=== PATIENT | male | born 1950 | race Caucasian/White ===

== ENCOUNTER 2023-07-26 04:17 | Emergency (ER) | payer MEDICARE, SELFPAY ==
[2023-07-26] VITALS (10 sets, daily range): BP systolic 163–180; BP diastolic 79–101; PULSE 101–103; RESP 16–18; TEMP 36.8–38.4; O2SAT 93–97; BMI 25.1
--- NOTE | 2023-07-26 04:32 | XR_ITS ---
The [address] [address] Patient Name: SOFI NELSON MRN: [id number] date: 1950 Sex: M Assigned Patient Location: ER Current Patient Location: ER Accession/Order Number: [id number] Exam Date: 07/26/2023 05:10 Report Date: 07/26/2023 05:35 At the request of: GHISLAINE LERNER Procedure: XR chest 1V EXAM: XR chest 1V HISTORY: URI symptoms COMPARISON: None. TECHNIQUE: One view of the chest was obtained. FINDINGS: Postsurgical changes are noted at the cervicothoracic junction. The cardiac silhouette is normal in size. The lungs are clear. There is no significant pneumothorax or pleural effusion. No acute osseous abnormality is seen. XR/XR chest 1V IMPRESSION: 1. No acute cardiopulmonary abnormality. Electronically authenticated by: Jose A FAM Date: 07/26/2023 05:35
[2023-07-26 05:00] LABS: Internal Control Within Normal Limits; Strep A Antigen Screen Negative
[2023-07-26 05:07] LABS: Adenovirus NOT DETECTED (NOT DETECTE); Bordetella parapertussis NOT DETECTED (NOT DETECTE); Coronavirus 229E NOT DETECTED (NOT DETECTE); Coronavirus HKU1 NOT DETECTED (NOT DETECTE); Coronavirus NL63 NOT DETECTED (NOT DETECTE); Coronavirus OC43 NOT DETECTED (NOT DETECTE); Human Metapneumovirus NOT DETECTED (NOT DETECTE); Human Rhinovirus/Enterovirus NOT DETECTED (NOT DETECTE); Influenza A NOT DETECTED (NOT DETECTE); Influenza B NOT DETECTED (NOT DETECTE); Mycoplasma pneumoniae NOT DETECTED (NOT DETECTE); Parainfluenza Virus 1 NOT DETECTED (NOT DETECTE); Parainfluenza Virus 2 NOT DETECTED (NOT DETECTE); Parainfluenza Virus 3 NOT DETECTED (NOT DETECTE); Parainfluenza Virus 4 NOT DETECTED (NOT DETECTE); Respiratory Syncytial Virus NOT DETECTED (NOT DETECTE)
[2023-07-26] MEDS: ACETAMINOPHEN 500 MG TABLET 1000 MG PO (05:32)
[2023-07-26] MEDS: 0.9 % SODIUM CHLORIDE 1,000 ML 1000 ML IV (05:32)
--- NOTE | 2023-07-26 05:33 | ED.URI1 ---
HPI - URI/Sore Throat General Chief Complaint: Upper Respiratory Infection Stated Complaint: SORE THROAT Time Seen by Provider: 07/26/23 05:28 Source: patient History of Present Illness HPI Narrative: complains of headache, sore throat. Hurts to swallow.Has a cough. Non smoker. No fever until he arrived to the hospital. Not short of breath. No abdominal pain MD elicited complaint: Reports fever, cough and sore throat Related Data Home Medications Medication Instructions Recorded Confirmed losartan 25 mg tablet mg 07/26/23 tamsulosin 0.4 mg capsule mg PO 07/26/23 Allergies Allergy/AdvReac Type Severity Reaction Status Date / Time No Known Drug Allergies Allergy Verified 07/26/23 04:27 Review of Systems ROS Status of ROS 10 or more systems reviewed and unremarkable except as noted in history and below [facility] Social History Smoking status: Never smoker Exam Constitutional Vital Signs, click to edit/add: Last Vital Signs Temp 98.7 F 07/26/23 06:37 Pulse 101 H 07/26/23 06:37 Resp 18 07/26/23 06:37 BP 176/94 H 07/26/23 06:37 Pulse Ox 93 L 07/26/23 06:37 O2 Del Method Room Air 07/26/23 06:21 O2 Flow Rate 2 07/26/23 06:37 Common normals: average body habitus, oriented x3 and alert HENMT Other: oral pharynx is red. No exudate Chest Common normals: inspection of chest normal Respiratory Common normals: normal respiratory effort, no retractions, no use of accessory muscles and clear to auscultation bilaterally Cardio Common normals: regular rate, regular rhythm, S1 normal heart sound and S2 normal heart sound GI Common normals: Normal to inspection, nondistended, normoactive bowel sounds present, soft to palpation and non-tender Extremity Common normals: normal to inspection Neuro Common normals: oriented x3, CN's II-XII intact bilaterally, moves all extremities and no focal motor deficits Psych Appearance: grossly normal Course Vital Signs Vital signs: Vital Signs Temperature 98.2 F 07/26/23 04:20 Pulse Rate 103 H 07/26/23 04:20 Respiratory Rate 16 07/26/23 04:20 Blood Pressure 180/95 H 07/26/23 04:20 Pulse Oximetry 96 07/26/23 04:20 Oxygen Delivery Method Room Air 07/26/23 04:20 Temperature 98.7 F 07/26/23 06:37 Pulse Rate 101 H 07/26/23 06:37 Respiratory Rate 18 07/26/23 06:37 Blood Pressure 176/94 H 07/26/23 06:37 Pulse Oximetry 93 L 07/26/23 06:37 Oxygen Delivery Method Room Air 07/26/23 06:21 Oxygen Delivery Flow Rate 2 07/26/23 06:37 MDM - URI/Sore Throat MDM Narrative Medical decision making narrative: patient presents with URI symptoms. Has a sore throat and hurts to swallow even water. Has a productive cough and frontal headache. BP elevated but states he has white coat syndrome. Patient treated with hydralazine and his BP has improved. Cough productive of thick white phlegm pulse ox decreased to 89% on RA. Patient is nonsmoker. cxray is amara. nasal swab pending. strep screen negative. Solumedrol and CTs ordered. care transferred to Dr Hernandez at change of shift Lab Data Labs: Lab Results 07/26/23 07/26/23 Range/Units 04:30 05:25 WBC 9.8 (4.0-11.0) 10^3/uL RBC 4.67 L (4.70-6.10) 10^6/uL Hgb 11.8 L (14.0-18.0) g/dL Hct 37.6 L (42.0-54.0) % MCV 80.5 (80.0-94.0) fL MCH 25.3 L (25.9-34.0) pg MCHC 31.4 (29.9-35.2) g/dL RDW 18.5 H (11.0-15.0) % Plt Count 157 (150-450) 10^3/uL MPV 11.5 (9.5-13.5) fL Sodium 138 (136-145) mmol/L Potassium 3.9 (3.5-5.1) mmol/L Chloride 101 (98-107) mmol/L Carbon Dioxide 29.1 (21.0-32.0) mmol/L Anion Gap 11.8 BUN 11.0 (7.0-18.0) mg/dL Creatinine 1.08 (0.70-1.30) mg/dL Est GFR ( Amer) >60 (>=60) Est GFR (Non-Af Amer) >60 (>=60) BUN/Creatinine Ratio 10.2 Glucose 105 (74-106) mg/dL Calcium 8.4 L (8.5-10.1) mg/dL Total Bilirubin 0.3 (0.2-1.0) mg/dL AST 25 (15-37) U/L ALT 21 (16-63) U/L Alkaline Phosphatase 65 (46-116) U/L Total Protein 8.0 (6.4-8.2) g/dL Albumin 4.0 (3.4-5.0) g/dL Globulin 4.0 g/dL Albumin/Globulin Ratio 1.0 Streptococcus Screen Negative Imaging Data Chest x-ray: Radiologist's impression: Ordering Physician: Jayjay Rosales Date of Service: 07/26/23 Procedure(s): XR chest 1V Accession Number(s): [id number] cc: Patricia Fontanez M.D.; Jayjay Rosales~ The [place] [address] Patient Name: SOFI NELSON MRN: [id number] date: 1950 Sex: M Assigned Patient Location: ER Current Patient Location: ER Accession/Order Number: [id number] Exam Date: 07/26/2023 05:10 Report Date: 07/26/2023 05:35 At the request of: JAYJAY ROSALES Procedure: XR chest 1V EXAM: XR chest 1V HISTORY: URI symptoms COMPARISON: None. TECHNIQUE: One view of the chest was obtained. FINDINGS: Postsurgical changes are noted at the cervicothoracic junction. The cardiac silhouette is normal in size. The lungs are clear. There is no significant pneumothorax or pleural effusion. No acute osseous abnormality is seen. XR/XR chest 1V IMPRESSION: 1. No acute cardiopulmonary abnormality. Electronically authenticated by: Jose A FAM Date: 07/26/2023 05:35 Discharge Plan Discharge Patient Disposition: Still a Patient
[2023-07-26] MEDS: METHYLPREDNISOLONE SOD SUCC PF 125 MG/2 ML VIAL IVP (05:57)
[2023-07-26] MEDS: HYDRALAZINE HCL 20 MG/ML VIAL 5 MG IVP (05:58)
[2023-07-26] MEDS: CEFTRIAXONE 1,000 MG in 0.9 % SODIUM CHLORIDE 50 ML 100 MG IV (05:58)
[2023-07-26 06:04] LABS: Alanine Aminotransferase 21 U/L (16-63); Alkaline Phosphatase 65 U/L (46-116); Anion Gap 11.8; Aspartate Amino Transferase 25 U/L (15-37); BUN Creatinine Ratio 10.2; Bilirubin Total 0.3 mg/dL (0.2-1.0); Calcium 8.4 mg/dL (8.5-10.1); Carbon Dioxide 29.1 mmol/L (21.0-32.0); Chloride 101 mmol/L (98-107); Estimated GFR (African America >60 (>=60); Estimated GFR (Non-African Ame >60 (>=60); Glucose 105 mg/dL (74-106); Potassium 3.9 mmol/L (3.5-5.1); Sodium 138 mmol/L (136-145)
--- NOTE | 2023-07-26 06:09 | CT_ITS ---
The [address] [address] Patient Name: SOFI NELSON MRN: [id number] date: 1950 Sex: M Assigned Patient Location: ED.MAIN Current Patient Location: ER Accession/Order Number: [id number] Exam Date: 07/26/2023 07:20 Report Date: 07/26/2023 08:07 At the request of: GHISLAINE LERNER Procedure: CT angio chest EXAMINATION: CT angio chest, 07/26/2023 7:20 AM EDT HISTORY: hypoxemia cough. COMPARISON: None. TECHNIQUE: CT angiography of the chest was performed with water soluble IV contrast. MIP (maximum intensity projection) images or 3D post processing was performed. CT dose reduction technique was used, including Automated Exposure Control. FINDINGS: The heart is normal in size. The thoracic aorta is normal in caliber. The pulmonary arteries are well opacified without evidence of filling defects. There is slight bibasilar atelectasis. There is a punctate calcified granuloma in the posterior aspect of the right lung base. No pneumothorax or pleural effusion is seen. The mediastinum and jacque appear unremarkable. The osseous structures appear intact. The visualized portions of the upper abdomen appear unremarkable. CT/CT angio chest IMPRESSION: No evidence of pulmonary emboli. There is slight bibasilar atelectasis. No foci of infiltrate or consolidation are seen. Electronically authenticated by: SHEYLA LABOY Date: 07/26/2023 08:07
--- NOTE | 2023-07-26 06:10 | CT_ITS ---
The [address] [address] Patient Name: SOFI NELSON MRN: [id number] date: 1950 Sex: M Assigned Patient Location: ED.MAIN Current Patient Location: Accession/Order Number: [id number] Exam Date: 07/26/2023 07:20 Report Date: 07/26/2023 08:16 At the request of: GHISLAINE LERNER Procedure: CT soft tissue neck wo con EXAMINATION: CT soft tissue neck wo con HISTORY: pharynx pain/hard to swallow ? abscess COMPARISON: No relevant comparison available. TECHNIQUE: Axial, Coronal, and Sagittal CT images created without IV contrast. Dose reduction techniques were achieved by using automated exposure control and/or adjustment of mA and/or kV according to patient size and/or use of iterative reconstruction technique. FINDINGS: NASOPHARYNX: No asymmetry of the fossae of Rosenmuller and torus tubarius. ORAL CAVITY: No visible mass. OROPHARYNX: No asymmetry of the facial and lingual tonsils. HYPOPHARYNX: No mass or other visible lesion. LARYNX: No mass or asymmetry of the vocal cords. SINUSES: No significant fluid or mucosal thickening. NECK GLADS: No visible abnormality of the parotid, submandibular, and thyroid glands. LYMPH NODES: Mild adenopathy within the anterior cervical chains, right greater than left. VASCULATURE: No suspicious abnormality. BONES: Multilevel marked degenerative facet arthropathy. OTHER: No additional imaging findings. CT/CT soft tissue neck wo con IMPRESSION: 1. Limited examination due to lack of IV contrast and metallic streak artifact from dental fillings. 2. Mild lymphadenopathy, likely reactive. 3. No appreciable abscess or phlegmonous changes. Electronically authenticated by: DESI CEJA Date: 07/26/2023 08:16
[2023-07-26 06:11] LABS: Hematocrit 37.6 % (42.0-54.0); Hemoglobin 11.8 g/dL (14.0-18.0); Mean Corpuscular HGB Conc 31.4 g/dL (29.9-35.2); Mean Corpuscular Hemoglobin 25.3 pg (25.9-34.0); Mean Corpuscular Volume 80.5 fL (80.0-94.0); Red Blood Count 4.67 10^6/uL (4.70-6.10); White Blood Count 9.8 10^3/uL (4.0-11.0)
[2023-07-26 06:12] LABS: Mean Platelet Volume 11.5 fL (9.5-13.5); Platelet Count 157 10^3/uL (150-450); Red Cell Distribution Width 18.5 % (11.0-15.0)
[2023-07-26] MEDS: ALBUTEROL SULFATE 2.5 MG/3 ML VIAL NEB IH (06:41)
[2023-07-26 07:29] LABS: SARS-CoV-2 DETECTED (NOT DETECTE)
--- NOTE | 2023-07-26 08:27 | PC.NURSE ---
pt received from night custodian RN on 2L of O2 per NC
== END 2023-07-26 09:27 | disposition home or self-care (01) ==
PROVIDERS: Internal Medicine; Emergency Provider Emergency Medicine; PCP Family Medicine
DX: U07.1 COVID-19 (principal); J02.9 Acute pharyngitis, unspecified; Z79.899 Other long term (current) drug therapy
CPT/HCPCS: 0202U; 36415; 70490; 71045; 71275; 80053; 85027; 87070; 87880; 94640; 96365; 96366; 96375; 99285; J2930; Q9967

== ENCOUNTER 2023-08-16 08:01 | Outpatient (OUT) | payer MEDICARE, SELFPAY ==
[2023-08-17 04:09] LABS: PSA, Free 1.43 ng/mL; Prostate Specific Ag 9.3 ng/mL (0.0-4.0)
== END 2023-08-16 08:02 | disposition home or self-care (01) ==
LOC: LAB 08:03
PROVIDERS: PCP Family Medicine; Visit Provider Urology
DX: R97.20 Elevated prostate specific antigen [PSA] (principal)
CPT/HCPCS: 36415; 84153; 84154

== ENCOUNTER 2024-03-12 08:07 | Outpatient (OUT) | payer MEDICARE, SELFPAY ==
--- OUTSIDE RECORDS SUMMARY | 2024-03-12 08:22 | XMS_ITS | CCD ---
Author Organization [facility] Care Team Providers Care Director Of Accreditation Name Role Phone SCHROEDER, FELICIANO Unavailable Unavailable RICE, CLEVELAND W Unavailable Unavailable RICE, CLEVELAND W Unavailable Unavailable SCHROEDER, FELICIANO Unavailable Unavailable SCHROEDER, FELICIANO Unavailable Unavailable SCHROEDER, FELICIANO Unavailable Unavailable SCHROEDER, FELICIANO Unavailable Unavailable SCHROEDER, FELICIANO Unavailable Unavailable ALEXA GARCIA Unavailable Unavailable SCHROEDER, FELICIANO Unavailable Unavailable ABIGAIL SANCHEZ Primary Care Physician DENISHA GARCIA Attending Unavailable DENISHA GARCIA Referring Unavailable Abigail Sanchez Unavailable DANIEL, DR ABIGAIL Trejo Admitting Unavailable SANCHEZ, DR ABIGAIL Trejo Attending Unavailable SANCHEZ, DR ABIGAIL Trejo Primary Care Unavailable SANCHEZ, DR ABIGAIL Trejo Consulting Unavailable GARCIA, DR DENNY Admitting Unavailable GARCIA, DR DENNY Attending Unavailable SANCHEZ, DR ABIGAIL Trejo Primary Care Unavailable CENTERVILLE, DR OLIVER Maguire Consulting Unavailable GARCIA, DR DENNY Consulting Unavailable COOK, DR ROCK Pollock Admitting Unavailable COOK, DR ROCK Pollock Attending Unavailable SANCHEZ, DR ABIGAIL Trejo Primary Care Unavailable COOK, DR ROCK Pollock Consulting Unavailable NILL ., DR BARROSO Admitting Unavailable NILL ., DR BARROSO Attending Unavailable SANCHEZ, DR ABIGAIL Trejo Primary Care Unavailable NILL ., DR BARROSO Consulting Unavailable RODRIGUEZ RENÉ Consulting Unavailable NILL ., DR BARROSO Admitting Unavailable NILL ., DR BARROSO Attending Unavailable SANCHEZ, DR ABIGAIL Trejo Primary Care Unavailable NILL ., DR BARROSO Consulting Unavailable REMBERTO, XI [place] Consulting Unava ilable GEMBUSLUCITA Consulting Unavailable COOK, DR ROCK Pollock Admitting Unavailable COOK, DR ROCK Pollock Attending Unavailable SANCHEZ, DR ABIGAIL Trejo Primary Care Unavailable COOK, DR ROCK Pollock Consulting Unavailable Rock LUJAN Attending Unavailable OrzechLaura Attending Unavailable COOK, Rock Pollock Attending Unavailable NILLDharmesh Attending Unavailable Medications Current Medications Medication Drug Class(es) Dates Sig (Normalized) Sig (Original) amoxicillin 875 mg / clavulanate 125 mg oral tablet (2 sources) Penicillin-class Antibacterial Start: 08-07-2023 take 1 tablet by mouth every twelve hours Amoxicillin-Pot Clavulanate 875-125 MG 1 tablet Orally every 12 hrs for 10 day(s) Aug, Active Daily Multiple for Men 50+ oral tablet (3 sources) Start: 06-15-2020 take 1 tablet by mouth once daily Daily Multiple for Men 50+ oral tablet Oral, Daily, Refill(s) 0 Start Date: 06/15/20 Status: Ordered doxycycline hyclate 100 mg oral tablet (1 source) Tetracycline-class Drug Start: 02-15-2023 take 1 tablet by mouth twice daily doxycycline hyclate 100 mg Tab 100 mg = 1 tab(s), Oral, BID, # 14 tab(s), Refills(s) 0, Pharmacy: [id number], 177, cm, 02/15/23 11:48:00 EDT, Height/Length Dosing, 78.9, kg, 02/15/23 11:48:00 EDT, Weight Dosing Start Date: 02/15/23 Status: Ordered Psyllium (1 source) Start: 02-15-2023 Metamucil Oral, BID Start Date: 02/15/23 Status: Ordered See instructions (1 source) Start: 09-09-2017 See instructions See instructions, CBC with differential on 09/18/2017 and follow up with PCP/Urologist. Diagnosis Right ureteric stone/UTI, Print Requisition, Supply Start Date: 09/09/17 Status: Ordered tamsulosin hydrochloride 0.4 mg oral capsule (6 sources) alpha-Adrenergic Gordon Start: 01-12-2023 take 1 capsule by mouth twice daily tamsulosin 0.4 mg Cap 0.4 mg = 1 cap(s), Oral, BID, # 180 cap(s), Refills(s) 3, Pharmacy: [id number], 177, cm, 07/26/22 13:27:00 EDT, Height/Length Dosing, 87.5, kg, 07/26/22 13:27:00 EDT, Weight Dosing Start Date: 01/12/23 Status: Ordered Start: 01-05-2022 take 1 capsule by [facility] twice daily tamsulosin 0.4 mg Cap 0.4 mg = 1 cap(s), Oral, BID, # 180 cap(s), Refills(s) 3, Pharmacy: [id number], 177, cm, 10/25/21 11:30:00 EST, Height/Length Dosing, 78.9, kg, 10/25/21 11:30:00 EST, Weight Dosing Start Date: 01/05/22 Status: Ordered take 1 capsule by mo ut every twenty-four hours Tamsulosin HCl 0.4 MG 1 capsule Orally Once a day Active Completed/Discontinued Medications Medication Drug Class(es) Dates Sig (Normalized) Sig (Original) losartan potassium 25 mg oral tablet (6 sources) Angiotensin 2 Receptor Gordon Start: 01-12-2016 take 1 tablet by mouth once daily losartan 25 mg Tab 90 EA, TAKE 1 TABLET BY MOUTH DAILY, Refills(s) 0 Start Date: 07/18/22 Status: Ordered take 1 tablet by kacie every twelve hours Losartan Potassium 25 MG 1 tablet Orally twice a day Active Problems Active Problems Problem Classification Problem Date Documented Date Episodic/Chronic Calculus of urinary tract (8 sources) Calculus of kidney; Translations: [Calculus of ureter] Onset: 09-12-2017 12-18-2019 Episodic Deficiency and other anemia (10 sources) Iron deficiency anemia; Translations: [Iron deficiency anemia, unspecified] 07-18-2022 Episodic Disorders of lipid metabolism (2 sources) 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 Diverticulosis and diverticulitis (7 sources) Diverticulitis of intestine, part unspecified, without perforation or abscess without bleeding; Translations: [Diverticulosis of sigmoid colon] Onset: 10-18-2022 Chronic Essential hypertension (12 sources) Essential (primary) hypertension; Translations: [Hypertensive disorder] Onset: 06-18-2015 07-18-2022 Chronic Hyperplasia of prostate (11 sources) Benign prostatic hypertrophy with outflow obstruction; Translations: [Benign prostatic hyperplasia with lower urinary tract symptoms] Onset: 06-18-2015 Chronic 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 (2 sources) Epididymitis; Translations: [Epididymitis] Onset: 08-23-2023 Episodic Malaise and fatigue (8 sources) Asthenia; Translations: [Fatigue] 06-15-2020 Episodic Nutritional deficiencies (1 source) Vitamin D deficiency, unspecified; Translations: [Vitamin D deficiency, unspecified] Onset: 09-12-2017 Chronic Other and unspecified benign neoplasm (1 source) Benign neoplasm of colon, unspecified Episodic Other and unspecified benign neoplasm (1 source) Adenomatous polyp of colon 09-13-2022 Episodic Other circulatory disease (2 sources) Elevated blood-pressure reading without diagnosis of hypertension; Translations: [Elevated blood-pressure reading, without diagnosis of hypertension] Episodic Other injuries and conditions due to external causes (2 sources) History of fall; Translations: [History of falling] Episodic Other lower respiratory disease (3 sources) Dyspnea on exertion; Translations: [Other forms of dyspnea] Episodic Other lower respiratory disease (2 sources) Dyspnea; Translations: [Other forms of dyspnea] Episodic Other nutritional; endocrine; and metabolic disorders (2 sources) Overweight in adulthood with body mass index of 25 or more but less than 30 07-26-2022 Episodic Other nutritional; endocrine; and metabolic disorders (4 sources) Body mass index 25-29 - overweight; Translations: [Body mass index (BMI) 26.0-26.9, adult] Episodic Other upper respiratory disease (4 sources) Seasonal allergic rhinitis; Translations: [Other seasonal allergic rhinitis] Onset: 11-18-2016 07-18-2022 Chronic Residual codes; unclassified (2 sources) Immunization refused ; Translations: [Immunization not carried out because of patient refusal] Episodic Spondylosis; intervertebral disc disorders; other back problems (3 sources) Degeneration of cervical intervertebral disc 01-13-2016 Chronic Unclassified (1 source) Unknown / UNK(Unknown) Onset: 09-12-2017 Unclassified (1 source) CONTACT W/AND (SUSP) EXPOS COVID-19; Translations: [CONTACT W/AND (SUSP) EXPOS COVID-19] Onset: 08-31-2022 Urinary tract infections (3 sources) Urinary tract infectious disease 06-15-2020 Episodic Past or Other Problems Problem Classification Problem Date Documented Date Episodic/Chronic Abdominal hernia (1 source) Diaphragmatic hernia without obstruction or gangrene; Translations: [DIAPH HERNIA W/O OBST/GANGRENE] Onset: 09-07-2022 Episodic Abdominal pain (1 source) Unspecified abdominal pain; Translations: [Unspecified abdominal pain] Onset: 09-12-2017 Episodic Deficiency and other anemia (4 sources) Iron deficiency anemia, unspecified; Translations: [IRON DEFICIENCY ANEMIA UNSPECIFIED] Onset: 08-31-2022 Episodic Gastritis and duodenitis (1 source) Gastritis, unspecified, without bleeding; Translations: [GASTRITIS UNS WITHOUT BLEEDING] Onset: 09-07-2022 Episodic Genitourinary symptoms and ill-defined conditions (14 sources) Samir hematuria; Translations: [Nocturia] Onset: 01-30-2019 Resolved: 03-09-2019 12-18-2019 Episodic Other aftercare (1 source) Other intermediate teacher (current) drug therapy; Translations: [OTH DETENTION CURRENT DRUG THERAPY] Onset: 09-07-2022 Episodic Other and unspecified benign neoplasm (1 source) Benign neoplasm of sigmoid colon; Translations: [BENIGN NEOPLASM OF SIGMOID COLON] Onset: 09-07-2022 Episodic Other and unspecified benign neoplasm (1 source) Personal history of colonic polyps; Translations: [PERSONAL HISTORY OF COLONIC POLYPS] Onset: 09-07-2022 Episodic Other screening for suspected conditions (not mental disorders or infectious disease) (12 sources) Raised prostate specific antigen; Translations: [Elevated prostate specific antigen [PSA]] Onset: 04-17-2019 Episodic Other upper respiratory infections (3 sources) Acute maxillary sinusitis; Translations: [Acute recurrent maxillary sinusitis] Onset: 11-18-2016 Episodic Spondylosis; intervertebral disc disorders; other back problems (2 sources) Neck pain; Translations: [Cervicalgia] Onset: 06-18-2015 Episodic Unclassified (2 sources) Family history of disorders of kidney and ureter; Translations: [Family history of other endocrine, nutritional and metabolic diseases] Onset: 09-12-2017 Episodic Viral infection (1 source) COVID-19 Results Test Name Value Interpretation Reference Range Facility [facility]enson 2023 Screens [id number] Normal [facility] Ambulatory Visit Summaryon 1 10-23-2022 Ambulatory Visit Summary DARRELL NELSON :1950 Visit Date:08/23/2023 Ambulatory Visit Instructions Your Diagnosis Elevated PSA BPH with urinary obstruction Epididymitis Tests Performed Urnls Dip Stick Auto w/o Microscopy POC 22531 Your Care Team Attending Physician - Phong GUZMAN, ARTUROC, Laura X Primary Care Physician - ABIGAIL SANCHEZ MD This Is Your Medications List doxycycline (doxycycline hyclate 100 mg Tab) losartan (losartan 25 mg Tab) multivitamin with minerals (Daily Multiple for Men 50+ oral tablet) psyllium (Metamucil) tamsulosin (tamsulosin 0.4 mg Cap) Procedures Performed Colonoscopy (08/31/2022), EGD - Esophagogastroduodenoscopy (08/31/2022), Percutaneous nephrolithotomy (10/11/2017), Cystoscopic removal of ureteric stent (2017), ESWL - Extracorporeal shockwave lithotripsy for renal calculus (02/11/2016), Cysto, right RGP, right JJ stent (01/13/2016), Cholecystectomy, Colonoscopy, History of cervical spine surgery, History of cervical spine surgery, Repair of bilateral inguinal hernias, Sinus Surgery. Discharge Vitals Heart Rate (Peripheral) 88 Respiratory Rate 16 Blood Pressure 151/91 Height 177 cm Height 70 in Weight 78.9 kg Weight 173.58 lb BMI 25.18 What to do next Scheduled Follow-Up Appointments Monday 8:00 AM EDT With: Rock LUJAN MD Where: [facility] Patient Educationon 08-23-20 Patient Education Oncology Prostate Cancer Screening Prostate cancer screening is testing that is done to check for the presence of prostate cancer in men. The prostate gland is a walnut-sized gland that is located below the bladder and in front of the rectum in males. The function of the prostate is to add fluid to semen during ejaculation. Prostate cancer is one of the most common types of cancer in men. Who should have prostate cancer screening? Screening recommendations vary based on age and other risk factors, as well as between the professional organizations who make the recommendations. In general, screening is recommended if: ? You are age 50 to 70 and have an average risk for prostate cancer. You should talk with your health care provider about your need for screening and how often screening should be done. Because most prostate cancers are slow growing and will not cause , screening in this age group is generally reserved for men who have a 10- to 15-year life expectancy. ? You are younger than age 50, and you have these risk factors: ? Having a father, brother, or uncle who has been diagnosed with prostate cancer. The risk is higher if your family member's cancer occurred at an early age or if you have multiple family members with prostate cancer at an early age. ? Being a male who is Black or is of Jaime or sub-Saharan descent. In general, screening is not recommended if: ? You are younger than age 40. ? You are between the ages of 40 and 49 and you have no risk factors. ? You are 70 years of age or older. At this age, the risks that screening can cause are greater than the benefits that it may provide. If you are at high risk for prostate cancer, your health care provider may recommend that you have screenings more often or that you start screening at a younger age. How is screening for prostate cancer done? The recommended prostate cancer screening test is a blood test called the prostate-specific antigen (PSA) test. PSA is a protein that is made in the prostate. As you age, your prostate naturally produces more PSA. Abnormally high PSA levels may be caused by: ? Prostate cancer. ? An enlarged prostate that is not caused by cancer (benign prostatic hyperplasia, or BPH). This condition is very common in older men. ? A prostate gland infection (prostatitis) or urinary tract infection. ? Certain medicines such as male hormones (like testosterone) or other medicines that raise testosterone levels. A rectal exam may be done as part of prostate cancer screening to help provide information about the size of your prostate gland. When a rectal exam is performed, it should be done after the PSA level is drawn to avoid any effect on the results. Depending on the PSA results, you may need more tests, such as: ? A physical exam to check the size of your prostate gland, if not done as part of screening. ? Blood and imaging tests. ? A procedure to remove tissue samples from your prostate gland for testing (biopsy). This is the only way to know for certain if you have prostate cancer. What are the benefits of prostate cancer screening? ? Screening can help to identify cancer at an early stage, before symptoms start and when the cancer can be treated more easily. ? There is a small chance that screening may lower your risk of dying from prostate cancer. The chance is small because prostate cancer is a slow-growing cancer, and most men with prostate cancer from a different cause. What are the risks of prostate cancer screening? The main risk of prostate cancer screening is diagnosing and treating prostate cancer that would never have caused any symptoms or problems. This is called overdiagnosisand overtreatment. PSA screening cannot tell you if your PSA is high due to cancer or a different cause. A prostate biopsy is the only procedure to diagnose prostate cancer. Even the results of a biopsy may not tell you if your cancer needs to be treated. Slow-growing prostate cancer may not need any treatment other than monitoring, so diagnosing and treating it may cause unnecessary stress or other side effects. Questions to ask your health care provider ? When should I start prostate cancer screening? ? What is my risk for prostate cancer? ? How often do I need screening? ? What type of screening tests do I need? ? How do I get my test results? ? What do my results mean? ? Do I need treatment? Where to find more information ? The [employer]: www.cancer.org ? [employer]: www.auanet.org Contact a health care provider if: ? You have difficulty urinating. ? You have pain when you urinate or ejaculate. ? You have blood in your urine or semen. ? You have pain in your back or in the area of your prostate. Summary ? Prostate cancer is a common type of cancer in men. The prostate gland is located below the bladder and in front of the rectum. This gland adds flu (more content not included)... Normal [facility] Urology Office/Clinic Noteon 08-23-2023 Urology Office/Clinic Note Chief Complaint 6 month PSA HPI Staff 72 year old male here for 6 month with PSA. Previous DX: BPH w/LUTS, elevated PSA and epididymitis. Pt. was to start Doxycycline 100mg BID for 1 week. PSA 9.3 with 15.4% done 08/16/23, Previous PSA 7.6 with 19.7% done 02/08/23. Pt. taking Flomax 0.4mg Dysuria: no Incomplete bladder emptying: no Hematuria: no Frequency: no Urgency: no Nocturia: 2x's Stream: mild slow, for years Post void dripping: no Wearing pads/ Depends: no Urge incontinence: no Stress incontinence: no Incontinence without Sensory Awareness: no Abdominal pain: no Flank pain: no Review of Systems PHQ Score Initial Depression Screen Score: 0 SCORE Physical Exam Vitals & Measurements HR: 88(Peripheral) RR: 16 BP: 151/91 HT: 70 in HT: 177 cm WT: 78.9 kg WT: 173.58 lb BMI: 25.18 Assessment/Plan 1. Elevated PSA (R97.20: Elevated prostate specific antigen [PSA]) Ordered: PSA Free & Total 2. BPH with urinary obstruction (N40.1: Benign prostatic hyperplasia with lower urinary tract symptoms) Ordered: PSA Free & Total 3. Epididymitis (N45.1: Epididymitis) Follow-up With When Contact Information KARLEE GA, Rock Pollock, URL [address] [id number]- Additional Instructions: Patient Education Benign Prostatic Hyperplasia Prostate Cancer Screening Problem List/Past Medical History Ongoing BMI 27.0-27.9,adult BPH with urinary obstruction Degenerative disc disease, cervical Elevated PSA Epididymitis Gross hematuria History of kidney stones HTN (hypertension) Iron deficiency anemia Kidney stones Nocturia Seasonal allergic rhinitis Sigmoid diverticulosis Tubulovillous adenoma of colon Urinary retention UTI (urinary tract infection) Very low density lipoprotinemia Weak Historical Weak urine stream Procedure/Surgical History Colonoscopy (08/31/2022), EGD - Esophagogastroduodenoscopy (08/31/2022), Percutaneous nephrolithotomy (10/11/2017), Cystoscopic removal of ureteric stent (2017), ESWL - Extracorporeal shockwave lithotripsy for renal calculus (02/11/2016), Cysto, right RGP, right JJ stent (01/13/2016), Cholecystectomy, Colonoscopy, History of cervical spine surgery, History of cervical spine surgery, Repair of bilateral inguinal hernias, Sinus Surgery. Medications Daily Multiple for Men 50+ oral tablet, Oral, Daily doxycycline hyclate 100 mg Tab, 100 mg= 1 tab(s), Oral, BID losartan 25 mg Tab Metamucil, Oral, BID tamsulosin 0.4 mg Cap, 0.4 mg= 1 cap(s), Oral, BID, 3 refills Allergies No Known Allergies Social History Alcohol Current, Liquor, 3-5 times per week, 07/26/2022 Substance Abuse - Denies Substance Abuse, 01/13/2016 Tobacco - Denies Tobacco Use, 01/13/2016 Never (less than 100 in lifetime) Tobacco Use:. Never Smokeless Tobacco Use:., 07/26/2022 Family History COPD: Mother. Hypertension: Mother. Kidney stones: Brother. Metastatic cancer: Mother. Primary malignant neoplasm of female breast: Mother. Immunizations Vaccine Date Status Comments influenza virus vaccine, inactivated - Not Given Patient Refuses SARS-CoV-2 (COVID-19) mRNA BNT-162b2 vax 08/16/2021 Recorded SARS-CoV-2 (COVID-19) mRNA BNT-162b2 vax 01/07/2021 Recorded SARS-CoV-2 (COVID-19) mRNA BNT-162b2 vax 12/17/2020 Recorded Lab Results Ambulatory Point of Care Results Bilirubin Urine Dipstick: Negative (08/23/23 08:39:00) Blood Urine Dipstick: Negative (08/23/23 08:39:00) Glucose Urine Dipstick: Negative (08/23/23 08:39:00) Ketones Urine Dipstick: Negative (08/23/23 08:39:00) Leukocytes Urine Dipstick: Negative (08/23/23 08:39:00) Nitrite Urine Dipstick: Negative (08/23/23 08:39:00) Protein Urine Dipstick: Negative (08/23/23 08:39:00) Specific [place] Urine Dipstick: 1.020 (08/23/23 08:39:00) Urine Appearance Urine Dipstick: Clear (08/23/23 08:39:00) Urine Color Urine Dipstick: Yellow (08/23/23 08:39:00) Urobilinogen Urine Dipstick: Normal 0.2-1 EU/dl (08/23/23 08:39:00) pH Urine Dipstick: 7 (08/23/23 08:39:00) Normal [facility] Comment on above: Result Comment: Elec tronically Signed By: ROSANA Darling APRN, Laura Coffman\.br\Date and Time Signed: 08/23/23 11:10 EST Other Comment: no as sessment/plan documented Urology Office/Clinic Note Chief Complaint 6 month PSA HPI Staff 72 year old male here for 6 month with PSA. Previous DX: BPH w/LUTS, elevated PSA and epididymitis. Pt. was to start Doxycycline 100mg BID for 1 week. PSA 9.3 with 15.4% done 08/16/23, Previous PSA 7.6 with 19.7% done 02/08/23. Pt. taking Flomax 0.4mg Dysuria: no Incomplete bladder emptying: no Hematuria: no Frequency: no Urgency: no Nocturia: 2x's Stream: mild slow, for years Post void dripping: no Wearing pads/ Depends: no Urge incontinence: no Stress incontinence: no Incontinence without Sensory Awareness: no Abdominal pain: no Flank pain: no History of Present Illness I have reviewed and verified the staff HPI to be accurate for this encounter. Review of Systems PHQ Score Initial Depression Screen Score: 0 SCORE Physical Exam Vitals & Measurements HR: 88(Peripheral) RR: 16 BP: 151/91 HT: 70 in HT: 177 cm WT: 78.9 kg WT: 173.58 lb BMI: 25.18 General: Well developed, well nourished, in no acute distress. Genitourinary: normal scrotum, normal testes, normal urethra, normal epididymis that is nontender, normal vas deferens/spermatic cord. Flank Pain: none. Bladder: nonpalpable. Penis: normal shaft, normal glans. Prostate: normal prostate, no hard nodule observed. Non tender to palpation. Assessment/Plan 1. Elevated PSA (R97.20: Elevated prostate specific antigen [PSA]) PSA: 12/11/19 - 7.7 & 15.2% 06/02/20 - 9.6 & 15.9% 10/12/20 - 8.1 & 17.3% 03/17/21 - 8.5 & 16.1% 10/19/21 - 9.1 & 17.5% 04/20/22 - 6.5 & 18.5% 02/08/23 - 7.6 & 19.7% 08/16/23 - 9.3 & 15.4% current PSA 9.3 & 15.4% currently, increased from 7.6 & 19.7% from 6 months ago. Has been as high as 9.6 in the past and has been going up and down since 2020. Patient denies sx of prostatitis at this time, nontender prostate on HUGO. Will continue to monitor closely, f/u in 6 months with PSA free & total. Ordered: PSA Free & Total 2. BPH with urinary obstruction (N40.1: Benign prostatic hyperplasia with lower urinary tract symptoms) IPSS 3, overall satisfied with urination. Currently taking tamsulosin 0.4 mg QD Denies SE from medication, continue current dose. Patient to call for refills. Did briefly discuss prostate procedures (TURP vs Urolift or Rezum). Patient does not have interest in procedure on prostate at this time. Denies any infections since last visit. Ordered: PSA Free & Total 3. Epididymitis (N45.1: Epididymitis) Left epididymis nontender to palpation. Pain resolved since treatment with doxycycline at prior OV. UA negative for blood and infection in office today. Follow-up With When Contact Information KARLEE GA, Rock Pollock, URL [address] [place] [phone]- Additional Instructions: Problem List/Past Medical History Ongoing BMI 27.0-27.9,adult BPH with urinary obstruction Degenerative disc disease, cervical Elevated PSA Epididymitis Gross hematuria History of kidney stones HTN (hypertension) Iron deficiency anemia Kidney stones Nocturia Seasonal allergic rhinitis Sigmoid diverticulosis Tubulovillous adenoma of colon Urinary retention UTI (urinary tract infection) Very low density lipoprotinemia Weak Historical Weak urine stream Procedure/Surgical History Colonoscopy (08/31/2022), EGD - Esophagogastroduodenoscopy (08/31/2022), Percutaneous nephrolithotomy (10/11/2017), Cystoscopic removal of ureteric stent (2017), ESWL - Extracorporeal shockwave lithotripsy for renal calculus (02/11/2016), Cysto, right RGP, right JJ stent (01/13/2016), Cholecystectomy, Colonoscopy, History of cervical spine surgery, History of cervical spine surgery, Repair of bilateral inguinal hernias, Sinus Surgery. Medications Daily Multiple for Men 50+ oral tablet, Oral, Daily doxycycline hyclate 100 mg Tab, 100 mg= 1 tab(s), Oral, BID losartan 25 mg Tab Metamucil, Oral, BID tamsulosin 0.4 mg Cap, 0.4 mg= 1 cap(s), Oral, BID, 3 refills Allergies No Known Allergies Social History Alcohol Current, Liquor, 3-5 times per week, 07/26/2022 Substance Abuse - Denies Substance Abuse, 01/13/2016 Tobacco - Denies Tobacco Use, 01/13/2016 Never (less than 100 in lifetime) Tobacco Use:. Never Smokeless Tobacco Use:., 07/26/2022 Family History COPD: Mother. Hypertension: Mother. Kidney stones: Brother. Metastatic cancer: Mother. Primary malignant neoplasm of female breast: Mother. Immunizations Vaccine Date Status Comments influenza virus vaccine, inactivated - Not Given Patient Refuses SARS-CoV-2 (COVID-19) mRNA BNT-162b2 vax 08/16/2021 Recorded SARS-CoV-2 (COVID-19) mRNA BNT-162b2 vax 01/07/2021 Recorded SARS-CoV-2 (COVID-19) mRNA BNT-162b2 vax 12/17/2020 Recorded Lab Results Ambulatory Point of Care Results Bilirubin Urine Dipstick: Negative (08/23/23 08:39:00) Blood Urine Dipstick: Negative (08/23/23 08:39:00) Glucose Urine Dipstick: Negative (08/23/23 08:39:00 (more content not included)... Normal [facility] Comment on above: Result Comment: Elec tronically Signed By: ROSANA Darling APRN, Laura Coffman\.br\Date and Time Signed: 08/23/23 11:11 EST Lab Reportson 08-22-2023 Lab Reports [id number] [facility] Screenson 02-16-2023 Screens [id number]:127 [facility] Ambulatory Visit Summaryon 0 02-15-2023 Ambulatory Visit Summary DARRELL NELSON Emmanuelle :1950 Visit Date:02/15/2023 Ambulatory Visit Instructions Your Diagnosis BPH with urinary obstruction Elevated PSA Epididymitis Tests Performed Urnls Dip Stick Auto w/o Microscopy POC [id number] Your Care Team Attending Physician - KARLEE GA, Rock Pollock Primary Care Physician - ABIGAIL SANCHEZ MD This Is Your Medications List tamsulosin (tamsulosin 0.4 mg Cap) Contact prescribing physician if questions or concerns losartan (losartan 25 mg Tab) multivitamin with minerals (Daily Multiple for Men 50+ oral tablet) psyllium (Metamucil) Procedures Performed Colonoscopy (08/31/2022), EGD - Esophagogastroduodenoscopy (08/31/2022), Percutaneous nephrolithotomy (10/11/2017), Cystoscopic removal of ureteric stent (2017), ESWL - Extracorporeal shockwave lithotripsy for renal calculus (02/11/2016), Cysto, right RGP, right JJ stent (01/13/2016), Cholecystectomy, Colonoscopy, History of cervical spine surgery, History of cervical spine surgery, Repair of bilateral inguinal hernias, Sinus Surgery. Discharge Vitals Heart Rate (Peripheral) 79 Blood Pressure 160/102 Height 70 in Height 177.0 cm Weight 173.58 lb Weight 78.9 kg BMI 25.18 What to do next Scheduled Follow-Up Appointments Monday 8:30 AM EST With: KARLEE GA, Rock Pollock Where: [facility] Patient Educationon 02-16-20 Patient Education Oncology Prostate-Specific Antigen Test Why am I having this test? The prostate-specific antigen (PSA) test is a screening test for prostate cancer. It can identify early signs of prostate cancer, which may allow for early detection and more effective treatment. Your health care provider may recommend that you have a PSA test starting at age 50 or that you have one earlier if you are at higher risk for prostate cancer. You may also have a PSA test: ? To monitor treatment of prostate cancer. ? To check whether prostate cancer has returned after treatment. What is being tested? This test measures the amount of PSA in your blood. PSA is a protein that is made in the prostate. The prostate naturally produces more PSA as you age, but very high levels may be a sign of a medical condition. What kind of sample is taken? A blood sample is required for this test. It is usually collected by inserting a needle into a blood vessel but can also be collected by sticking a finger with a small needle. Blood for this test should be drawn before having an exam of the prostate that involves digital rectal examination to avoid affecting the results. How do I prepare for this test? Do not ejaculate starting 24 hours before your test, or as long as told by your health care provider, as this can cause an elevation in PSA. Do not undergo any procedures that require manipulation of the prostate, such as biopsy or surgery, for 6 weeks before the test is done as this can cause an elevation in PSA. Tell a health care provider about: ? Any signs you may have of other conditions that can affect PSA levels, such as: ? An enlarged prostate that is not caused by cancer (benign prostatic hyperplasia, or BPH). This condition is very common in older men. ? A prostate or urinary tract infection. ? Any allergies you have. ? All medicines you are taking, including vitamins, herbs, eye drops, creams, and pgtx-jfy-mqzzjgy medicines. This also includes: ? Medicines to assist with hair growth, such as finasteride. ? Any recent exposure to a medicine called diethylstilbestrol (AURELIO). ? Medicines such as male hormones (like testosterone) or other medicines that raise testosterone levels. ? Any bleeding problems you have. ? Any recent procedures you have had, especially any procedures involving the prostate or rectum. ? Any medical conditions you have. How are the results reported? Your test results will be reported as a value that indicates how much PSA is in your blood. This will be given as nanograms of PSA per milliliter of blood (ng/mL). Your health care provider will compare your results to normal ranges that were established after testing a large group of people (reference ranges). Reference ranges may vary among labs and hospitals. PSA levels vary from person to person and generally increase with age. Because of this variation, there is no single PSA value that is considered normal for everyone. Instead, PSA reference ranges are used to describe whether your PSA levels are considered low or high (elevated). Common reference ranges are: ? Low: 0?2.5 ng/mL. ? Slightly to moderately elevated: 2.6?10.0 ng/mL. ? Moderately elevated: 10.0?19.9 ng/mL. ? Significantly elevated: 20 ng/mL or greater. What do the results mean? A test result that is higher than 4 ng/mL may mean that you have prostate cancer. However, a PSA test by itself is not enough to diagnose prostate cancer. High PSA levels may also be caused by the natural aging process, prostate infection (prostatitis), or BPH. ? PSA screening cannot tell you if your PSA is high due to cancer or a different cause. ? A prostate biopsy is the only way to diagnose prostate cancer. A risk of having the PSA test is diagnosing and treating prostate cancer that would never have caused any symptoms or problems (overdiagnosis and overtreatment). Talk with your health care provider about what your results mean. In some cases, your health care provider may do more testing to confirm the results. Questions to ask your health care provider Ask your health care provider, or the department that is doing the test: ? When will my results be ready? ? How will I get my results? ? What are my treatment options? ? What other tests do I need? ? What are my next steps? Summary ? The prostate-specific antigen (PSA) test is a screening test for prostate cancer. ? Your health care provider may recommend that you have a PSA test starting at age 50 or that you have one earlier if you are at higher risk for prostate cancer. ? A test result that is higher than 4 ng/mL may mean that you have prostate cancer. However, elevated levels can be caused by a number of conditions other than prostate cancer. ? Talk with your health care provider about what your results mean. This information is not intended to replace advice given to you by your health care provider. Make sure you discuss any questions yo (more content not included)... Normal [facility] Urology Office/Clinic Noteon 02-15-2023 Urology Office/Clinic Note Chief Complaint 10 mo fu HPI Staff 72 year old male here for 10 month follow up with psa Previous Dx: Elevated psa, Bph with luts *flomax 0.4mg bid* pt. states he has had some left side testicle tenderness after a bowel surgery in november. Denies any swelling that he can tell. Dysuria: no Incomplete bladder emptying: no Hematuria: no Frequency: no Urgency: no Nocturia: 2x, states it not due to urge. He gets up with his dogs and will just try while he's up Stream: slower stream, no straining Leaking: no Post void dripping: no Wearing pads/ Depends: no Urge incontinence: no Stress incontinence: no Incontinence without Sensory Awareness: no Abdominal pain: no Flank pain: no Sexual complaints: no History of Present Illness Pt is here for 10 month follow up w/PSA F/T due to BPH and Elevated PSA Reviewed UA, PSA F/T and IPSS (2) Pt has no associated symptoms, no fever, no chills, no flank pain. I have reviewed the previous health record information and history for this patient from Dr. Lujan Review of Systems PHQ Score Initial Depression Screen Score: 0 ROS - Provider Constitutional: denies weight loss, denies hot flashes. Eyes: denies eye problems. Gastrointestinal: denies nausea, denies vomiting. Cardiovascular: denies chest pain or angina. Integumentary: no dryness Musculoskeletal: denies musculoskeletal symptoms. ENMT: denies otolaryngeal symptoms. Respiratory: no shortness of breath. Heme/Lymph: denies easy bleeding tendency, denies easy bruising tendency. Psychiatric: no confusion, no anxiety. Genitourinary: denies dysuria, denies hematuria, denies discharge, denies urinary frequency, denies urinary hesitancy, denies nocturia, denies incontinence, denies genital sores, denies decreased libido, and denies erectile dysfunction. Physical Exam Vitals & Measurements HR: 79(Peripheral) BP: 160/102 HT: 70 in HT: 177.0 cm WT: 78.9 kg WT: 173.58 lb BMI: 25.18 General Appearance: alert, no distress, well nourished, well developed male. Genitourinary: normal scrotum, normal testes, normal urethra, Tender-Lt Head epididymis, normal vas deferens/spermatic cord. Assessment/Plan 1. BPH with urinary obstruction (N40.1: Benign prostatic hyperplasia with lower urinary tract symptoms) 2. Elevated PSA (R97.20: Elevated prostate specific antigen [PSA]) Pt's PSA F/T is 7.6 and 19.7%, decreased from 9.1 and 17.5% Will continue to monitor PSA F/T 3. Epididymitis (N45.1: Epididymitis) On exam, Lt Head of Epididymitis is tender Will start Doxycycline 100mg BID for 1 week Overall the patient has a longstanding history of PSA elevation and the current level is down a bit to the 7.6. He is happy to hear this. He recently had some bowel surgery so we will avoid the rectal examination today. Otherwise we will see him in 6 months with a repeat free and total PSA. He does relate that about a week or 2 after his partial colon resection for an enlarged polyp, he is subsequently developed left-sided scrotal/epididymal discomfort. Despite the lack of significant induration, it is my recommendation that he go on some nonsteroidal anti-inflammatories if able. I have also recommended an antibiotic course consisting of doxycycline and this is sent to the pharmacy. He will see me back in 6 months with a repeat free and total PSA and will call for any progressive difficulties with the left testicle and epididymis. Follow-up With When Contact Information Rock LUJAN MD, URL In 6 months Additional Instructions: w/PSA F/T Patient Education Prostate-Specific Antigen Test Testicular Self-Exam, Hhlw-sj-Zeyk IAinsley, personally scribed for Dr. Lujan on 02/15/2023 12:04:48. . Documentation recorded by the scribe, Ainsley Durham, accurately reflects the services(s) I performed and decisions made by me. Authenticated by Dr. Lujan on 02/15/2023 12:23:19. Problem List/Past Medical History Ongoing BMI 27.0-27.9,adult BPH with urinary obstruction Degenerative disc disease, cervical Elevated PSA Epididymitis Gross hematuria History of kidney stones HTN (hypertension) Iron deficiency anemia Kidney stones Nocturia Seasonal allergic rhinitis Sigmoid diverticulosis Tubulovillous adenoma of colon Urinary retention UTI (urinary tract infection) Very low density lipoprotinemia Weak Historical Weak urine stream Procedure/Surgical History Colonoscopy (08/31/2022), EGD - Esophagogastroduodenoscopy (08/31/2022), Percutaneous nephrolithotomy (10/11/2017), Cystoscopic removal of ureteric stent (2017), ESWL - Extracorporeal shockwave lithotripsy for renal calculus (02/11/2016), Cysto, right RGP, right JJ stent (01/13/2016), Cholecystectomy, Colonoscopy, History of cervical spine surgery, History of cervical spine surgery, Repair of bilateral inguinal hernias, Sinus Surgery. Medications Daily Multiple for Men 50+ oral (more content not included)... Normal [facility] Comment on above: Result Comment: Elec tronically Signed By: Rock LUJAN MD\.br\Date and Time Signed: 02/15/23 12:24 EDT\.br\Electronically Co-Signed By: Ainsley Durham\Date and Time Co-Signed: 02/15/23 12:05 EDT Lab Reportson 02-09-2023 Lab Reports [id number]:127 Normal [facility] PSA, FREE AND TOTAL RATIOon 02-09-2023 % Free PSA 19.7 % Normal [facility] Comment on above: Result Comment: The table below lists the probability of prostate cancer for men with non-suspicious HUGO results and total PSA between 4 and 10 ng/mL, by patient age (Costa et al, RYLIE 1998, 279:1542). % Free PSA 50-64 yr 65-75 yr 0.00-10.00% 56% 55% 10.01-15.00% 24% 35% 15.01-20.00% 17% 23% 20.01-25.00% 10% 20% >25.00% 5% 9% Please note: Costa et al did not make specific recommendations regarding the use of percent free PSA for any other population of men. Performed By: #### P SAFREE #### [facility] [address] [address] [address] Vaishali Dorsey Prostate specific Ag [Mass/Vol] 7.6 ng/mL Critically high 0.0-4.0 [facility] Comment on above: Result Comment: Dakota MCCLAINIA methodology. . According to the [employer], Serum PSA should decrease and remain at undetectable levels after radical prostatectomy. The AUA defines biochemical recurrence as an initial PSA value 0.2 ng/mL or greater followed by a subsequent confirmatory PSA value 0.2 ng/mL or greater. Values obtained with different assay methods or kits cannot be used interchangeably. Results cannot be interpreted as absolute evidence of the presence or absence of malignant disease. Performed By: #### P SAFREE #### [facility] [address] [address] [address] Vaishali Dorsey PSA, Free 1.50 ng/mL Normal N/A [facility] Comment on above: Result Comment: Roch ronda ECLIA methodology. Performed By: #### P SAFREE #### [facility] [address] [address] [address] Vaishali Dorsey CBC AUTO DIFFon 11-03-2022 BASO # 0.1 103/ul Normal 0.0-0.1 [facility] Comment on above: Performed By: #### C BC #### [facility] [address] [place] [address] Dr. Vaishali Dorsey Basophils/100 WBC (Bld) 0.6 % Normal 0.2-2.0 [facility] Comment on above: Performed By: #### C BC #### [facility] [address] [place] [address] Dr. Vaishali Dorsey EO # 0.5 103/ul Normal 0.0-0.7 [facility] Comment on above: Performed By: #### C BC #### [facility] [address] [place] [address] Dr. Vaishali Dorsey Eosinophils/100 WBC (Bld) 4.4 % Normal 0.9-7.0 [facility] Comment on above: Performed By: #### C BC #### [facility] [address] [place] [address] Dr. Vaishali Dorsey Erythrocyte distribution width (RBC) [Ratio] 17.2 % Critically high 11.0-15.0 [facility] Comment on above: Performed By: #### C BC #### [facility] [address] [place] [address] Dr. Vaishali Dorsey Hematocrit (Bld) [Volume fraction] 39.6 % Critically low 42.0-54.0 [facility] Comment on above: Performed By: #### C BC #### [facility] [address] [place] [address] Dr. Vaishali Dorsey Hemoglobin (Bld) [Mass/Vol] 11.8 g/dL Critically low 14.0-18.0 [facility] Comment on above: Performed By: #### C BC #### [facility] [address] [place] [address] Dr. Vaishali Dorsey IG # 0.03 10e3/ul Normal 0.00-0.03 [facility] Comment on above: Performed By: #### C BC #### [facility] [address] [place] [address] Dr. Vaishali Dorsey IG % 0.3 % Normal 0.0-0.5 [facility] Comment on above: Performed By: #### C BC #### [facility] [address] [place] [address] Dr. Vaishali Dorsey LYMPH # 4.1 103/ul Critically high 1.2-3.8 [facility] Comment on above: Performed By: #### C BC #### [facility] [address] [place] [address] Dr. Vaishali Dorsey Lymphocytes/100 WBC (Bld) 34.2 % Normal 20.5-60.0 [facility] Comment on above: Performed By: #### C BC #### [facility] [address] [place] [address] Dr. Vaishali Dorsey MANUAL DIFF REQ NO Normal [facility] Comment on above: Performed By: #### C BC #### [facility] [address] [place] [address] Dr. Vaishali Dorsey MCH (RBC) [Entitic mass] 24.5 pg Critically low 25.9-34.0 [facility] Comment on above: Performed By: #### C BC #### [facility] [address] [place] [address] Dr. Vaishali Dorsey MCHC (RBC) [Mass/Vol] 29.8 g/dL Critically low 29.9-35.2 [facility] Comment on above: Performed By: #### C BC #### [facility] [address] [place] [address] Dr. Vaishali Dorsey MCV (RBC) [Entitic vol] 82.2 fL Normal 80.0-94.0 [facility] Comment on above: Performed By: #### C BC #### [facility] [address] [place] [address] Dr. Vaishali Dorsey MONO # 1.1 103/ul Critically high 0.3-0.8 [facility] Comment on above: Performed By: #### C BC #### [facility] [address] [place] [address] Dr. Vaishali Dorsey Monocytes/100 WBC (Bld) 9.1 % Normal 1.7-12.0 [facility] Comment on above: Performed By: #### C BC #### [facility] [address] [place] [address] Dr. Vaishali Dorsey NEUT # 6.1 103/ul Normal 1.4-6.5 [facility] Comment on above: Performed By: #### C BC #### [facility] [address] [place] [address] Dr. Vaishali Dorsey Neutrophils/100 WBC (Bld) 51.4 % Normal 43.0-75.0 [facility] Comment on above: Performed By: #### C BC #### [facility] [address] [place] [address] Dr. Vaishali Dorsey Platelet mean volume (Bld) [Entitic vol] 10.3 fL Normal 9.5-13.5 [facility] Comment on above: Performed By: #### C BC #### [facility] [address] [place] [address] Dr. Vaishali Dorsey PLT 231 103/ul Normal 150-450 [facility] Comment on above: Performed By: #### C BC #### [facility] [address] [place] [address] Dr. Vaishali Dorsey RBC 4.82 106/ul Normal 4.70-6.10 [facility] Comment on above: Performed By: #### C BC #### [facility] [address] [place] [address] Dr. Vaishali Dorsey WBC 11.9 103/ul Critically high 4.0-11.0 [facility] Comment on above: Performed By: #### C BC #### [facility] [address] [place] [address] ABD/PELV W CONon 11-03-[address] ABD/PELV W CON EXAMINATION: CT ABD/ PELV W CON, 11/03/2022 6:43 AM EST HISTORY: Diverticulitis of intestine COMPARISON: 05/02/2018 TECHNIQUE: CT scan of the abdomen and pelvis was performed with IV contrast. CT dose reduction technique was used, including Automated Exposure Control. FINDINGS: LUNG BASES: No visible pulmonary or pleural disease. LIVER: Scattered hypodensities likely cysts BILIARY: Surgical clips from cholecystectomy PANCREAS: No lesion, fluid collection, ductal dilatation, or atrophy. SPLEEN: No enlargement or focal lesion. ADRENALS: No mass or enlargement. KIDNEYS: Right renal cortical scarring. Right renal cysts. Nonobstructing left nephrolithiasis. Hypodensity in the distal right ureter axial image 120. Represent contrast BOWEL/MESENTERY: No visible mass, obstruction, or bowel wall thickening. Normal appendix AORTA/VASCULAR: No aortic aneurysm. Moderate atherosclerosis RETROPERITONEUM: No mass or adenopathy. LYMPH NODES: No adenopathy. URINARY BLADDER: 2.3 cm anterior diverticulum with 3 mm calcification PELVIC ORGANS: Mildly enlarged heterogeneous prostate gland with calcifications ABDOMINAL WALL: 1.5 cm umbilical hernia containing fat without strangulation BONES: No bony lesion or fracture. OTHER: Negative. IMPRESSION: No acute intraperitoneal abnormality No significant diverticulosis. No evidence of diverticulitis Electronically authenticated by: OLIVER CHAVEZ Date: 2022-11-03 13:53 Normal [facility] PROF CHEM 8 (BAS METB)on Anion gap [Moles/Vol] 10.3 mmol/L Normal [facility] Comment on above: Performed By: #### B MP ####[facility] [address] [address]Dr. Vaishali Dorsey Calcium [Mass/Vol] 9.2 mg/dL Normal 8.5-10.1 [facility] Comment on above: Performed By: #### B MP ####[facility] [address] [address]Dr. Vaishali Dorsey Chloride [Moles/Vol] 105 mmol/L Normal 98-107 [facility] Comment on above: Performed By: #### B MP ####[facility] [address] [address]Dr. Vaishali Dorsey CO2 [Moles/Vol] 32.4 mmol/L Critically high 21.0-32.0 [facility] Comment on above: Performed By: #### B MP ####[facility] [address] [address]Dr. Vaishali Willian Creatinine [Mass/Vol] 1.00 mg/dL Normal 0.70-1.30 [facility] Comment on above: Performed By: #### B MP ####[facility] [address] [address]Dr. Vaishali Willian EGFR-AF SYRIAN >60 Normal >=60 [facility] Comment on above: Performed By: #### B MP ####[facility] [address] [address]Dr. Vaishali Willian EGFR-NON AF SYRIAN >60 Normal >=60 [facility] Comment on above: Performed By: #### B MP ####[facility] [address] [place], [place] [address]Dr. Vaishali Dorsey Glucose [Mass/Vol] 101 mg/dL Normal 74-106 [facility] Comment on above: Performed By: #### B MP ####[facility] [address] [place], [place] [address]Dr. Vaishali Dorsey Potassium [Moles/Vol] 5.7 mmol/L Critically high 3.5-5.1 [facility] Comment on above: Performed By: #### B MP ####[facility] [address] [place], [place] [address]Dr. Vaishali Dorsey Sodium [Moles/Vol] 142 mmol/L Normal 136-145 [facility] Comment on above: Performed By: #### B MP ####[facility] [address] [place], [place] [address]Dr. Vaishali Dorsey Urea nitrogen [Mass/Vol] 13.0 mg/dL Normal 7.0-18.0 [facility] Comment on above: Performed By: #### B MP ####[facility] [address] [place], [place] [address]Dr. Vaishali Dorsey Urea nitrogen/Creatinin e [Mass ratio] 13.0 mg/mg Normal [facility] Comment on above: Performed By: #### B MP ####[facility] [address] [place], [place] [address]Dr. Vaishali Dorsey PROTIMEon 11-03-2022 INR Coag (PPP) [Relative time] 0.96 {INR} Normal [facility] Comment on above: Performed By: #### P T #### [facility] [address] [place], [place] [address] Dr. Vaishali Dorsey INR GUIDELINES SEE BELOW Normal [facility] Comment on above: Result Comment: JOSEF RED INR: 2.0 - 3.0 CONDITIONS NOT LISTED BELOW 2.5 - 3.5 FOR PROSTHETIC HEART VALVE REPLACEMENT 2.5 - 3.5 RECURRENT THROMBOSIS Performed By: #### P T #### [facility] [address] [place], [place] [address] Dr. Vaishali Dorsey PT Coag (PPP) [Time] 10.2 s Normal 9.0-11.6 [facility] Comment on above: Performed By: #### P T #### [facility] [address] [place], [place] [address] Dr. Vaishali Dorsey Consulton 10-18-2022 Consult [id number] Anna Nelson 1950 M Date Provider Department Center 10/18/2022 DENISHA HOPSON [facility] [place] Family History Problem Relation Age of Onset Diverticulitis Mother Cancer Mother Family Status - Relation Status Age at Mother Level of Service:64843 [place] OFFICE/OUTPATIENT NEW MODERATE MDM 45-59 MINUTES Reason for Visit and Comments: Advice Only [[id number]] - Darrell states he has a polyp in rectum. Normal [facility] General Surgery Office/Clini c Noteon 09-13-2022 General Surgery Office/Clinic Note Chief Complaint post operative follow up HPI Staff 13 day post operative follow up post EGD with antral biopsy and colonoscopy with biopsy of polypoid mass. History of Present Illness f/u EGD and colonoscopy for iron deficiency anemia; EGD with mild antral gastritis, no ulcers, bx negative for H pylori; colonoscopy with large polypoid mass in colon, biopsies consistent with tubulovillous adenoma, also moderate sigmoid diverticulosis; denies abd pain or gross blood in stools. Review of Systems ROS - Provider Constitutional: no fever, no sweats, no weight loss. Eyes: no glasses, no blurred vision, no visual loss. ENMT: no dentures, no hoarseness, no swallowing difficulties, no hearing loss, no ear infection(s), no nose bleeds. Cardiovascular: normal blood pressure, no chest pain, regular heartbeat, no heart murmur. Respiratory: no shortness of breath, no cough, no asthma, no wheezing. Gastrointestinal: no nausea, no vomiting, no diarrhea, no constipation, no blood in stool, no change in bowel habits, no abdominal pain, no hepatitis. Genitourinary: no kidney stones, no urine infection, no dysuria. Musculoskeletal: no pain, no weakness. Skin: no changing moles, no rash, no skin lumps. Neurologic: no seizures, no epilepsy, no headache. Psychiatric: no emotional or psychiatric problem. Heme/Lymph: no bleeding problems, no anemia, no blood clots, no transfusions. Allergy/Immunologic: no swollen lymph nodes/glands, no IV drug abuse. Other: Additional ROS info: Except as noted in the above Review of Systems and in the History of Present Illness, all other systems have been reviewed and are negative or noncontributory. Assessment/Plan 1. Tubulovillous adenoma of colon (D12.6: Benign neoplasm of colon, unspecified) discussed need for removal of large polyp, may contain dysplasia or cancer within large polyp, can only determine when completely removed; recommend evaluation by Dr Garcia at [facility] for possible colon resection; will send records; call with problems or questions. [place] [facility] [place] 2. Sigmoid diverticulosis (K57.30: Diverticulosis of large intestine without perforation or abscess without bleeding) see # 1 [place] [facility] [place] Follow-up No qualifying data available Problem List/Past Medical History Ongoing BMI 27.0-27.9,adult BPH with urinary obstruction Degenerative disc disease, cervical Elevated PSA Gross hematuria History of kidney stones HTN (hypertension) Iron deficiency anemia Kidney stones Nocturia Seasonal allergic rhinitis Sigmoid diverticulosis Tubulovillous adenoma of colon Urinary retention UTI (urinary tract infection) Very low density lipoprotinemia Weak Historical Weak urine stream Procedure/Surgical History Colonoscopy (08/31/2022), EGD - Esophagogastroduodenoscopy (08/31/2022), Percutaneous nephrolithotomy (10/11/2017), Cystoscopic removal of ureteric stent (2017), ESWL - Extracorporeal shockwave lithotripsy for renal calculus (02/11/2016), Cysto, right RGP, right JJ stent (01/13/2016), Cholecystectomy, Colonoscopy, History of cervical spine surgery, History of cervical spine surgery, Repair of bilateral inguinal hernias, Sinus Surgery. Medications Daily Multiple for Men 50+ oral tablet, Oral, Daily losartan 25 mg Tab tamsulosin 0.4 mg Cap, 0.4 mg= 1 cap(s), Oral, BID, 3 refills Allergies No Known Allergies Social History Alcohol Current, Liquor, 3-5 times per week, 07/26/2022 Substance Abuse - Denies Substance Abuse, 01/13/2016 Tobacco - Denies Tobacco Use, 01/13/2016 Never (less than 100 in lifetime) Tobacco Use:. Never Smokeless Tobacco Use:., 07/26/2022 Family History COPD: Mother. Hypertension: Mother. Kidney stones: Brother. Metastatic cancer: Mother. Primary malignant neoplasm of female breast: Mother. Normal [facility] Comment on above: Result Comment: Elec tronically Signed By: SELENA GA, Dharmesh Mitchell\Date and Time Signed: 09/13/22 14:13 EST Pathology Noteon 09-13-2022 Pathology Note [id number]:127 Normal [facility] Consultation Noteon 09-06-20 Consultation Note [id number]:127 Normal [facility] Covid-19 PCR (CVDTB)on 08-03 SARS-CoV-2 (COVID-19) RNA NICK+probe Ql (Unsp spec) Not detected Normal NOT DETECTED [facility] Comment on above: Result Comment: When diagnostic testing is negative, the possibility of a false negative should be considered in the context of a patient's recent exposures and the presence of clinical signs and symptoms consistent with SARS-CoV-2. This test is not yet approved or cleared by the [place] FDA. When there are no FDA-approved or cleared tests available, and other criteria are met, FDA can make tests available under an emergency access mechanism called an Emergency Use Authorization (EUA). The EUA for this test is supported by the Supervisor In Charge of Health and Human Service's declaration that circumstances exist to justify the emergency use of in vitro diagnostics for the detection and/or diagnosis of the virus that causes COVID-19. This EUA will remain in effect for the duration of the COVID-19 declaration justifying emergency of IVDs, unless it is terminated or revoked by the FDA (after which the test may no longer be used). Performed By: #### C VDTBH #### [facility] [address] [place] [address] Dr. Vaishali Dorsey CBC AUTO DIFFon 06-28-2022 BASO # 0.1 103/ul Normal 0.0-0.1 [facility] Comment on above: Performed By: #### C BC #### [facility] [address] [place] [address] Dr. Vaishali Dorsey Basophils/100 WBC (Bld) 0.6 % Normal 0.2-2.0 [facility] Comment on above: Performed By: #### C BC #### [facility] [address] [place] [address] Dr. Vaishali Dorsey EO # 0.3 103/ul Normal 0.0-0.7 [facility] Comment on above: Performed By: #### C BC #### [facility] [address] [place] [address] Dr. Vaishali Dorsey Eosinophils/100 WBC (Bld) 2.0 % Normal 0.9-7.0 [facility] Comment on above: Performed By: #### C BC #### [facility] [address] [place] [address] Dr. Vaishali Dorsey Erythrocyte distribution width (RBC) [Ratio] 16.4 % Critically high 11.0-15.0 [facility] Comment on above: Performed By: #### C BC #### [facility] [address] [place] [address] Dr. Vaishali Dorsey Hematocrit (Bld) [Volume fraction] 38.0 % Critically low 42.0-54.0 [facility] Comment on above: Performed By: #### C BC #### [facility] [address] [place] [address] Dr. Vaishali Dorsey Hemoglobin (Bld) [Mass/Vol] 11.8 g/dL Critically low 14.0-18.0 [facility] Comment on above: Performed By: #### C BC #### [facility] [address] [place] [address] Dr. Vaishali Dorsey IG # 0.04 10e3/ul Critically high 0.00-0.03 [facility] Comment on above: Performed By: #### C BC #### [facility] [address] [place] [address] Dr. Vaishali Dorsey IG % 0.3 % Normal 0.0-0.5 [facility] Comment on above: Performed By: #### C BC #### [facility] [address] [place] [address] Dr. Vaishali Dorsey LYMPH # 3.6 103/ul Normal 1.2-3.8 [facility] Comment on above: Performed By: #### C BC #### [facility] [address] [place] [address] Dr. Vaishali Dorsey Lymphocytes/100 WBC (Bld) 28.4 % Normal 20.5-60.0 [facility] Comment on above: Performed By: #### C BC #### [facility] [address] [place] [address] Dr. Vaishali Dorsey MANUAL DIFF REQ NO Normal [facility] Comment on above: Performed By: #### C BC #### [facility] [address] [place] [address] Dr. Vaishali Dorsey MCH (RBC) [Entitic mass] 25.2 pg Critically low 25.9-34.0 [facility] Comment on above: Performed By: #### C BC #### [facility] [address] [place] [address] Dr. Vaishali Dorsey MCHC (RBC) [Mass/Vol] 31.1 g/dL Normal 29.9-35.2 [facility] Comment on above: Performed By: #### C BC #### [facility] [address] [place] [address] Dr. Vaishali Dorsey MCV (RBC) [Entitic vol] 81.0 fL Normal 80.0-94.0 [facility] Comment on above: Performed By: #### C BC #### [facility] [address] [place] [address] [address] Vaishali Dorsey MONO # 1.1 103/ul Critically high 0.3-0.8 [facility] Comment on above: Performed By: #### C BC #### [facility] [address] [place] [address] [address] Vaishali Dorsey Monocytes/100 WBC (Bld) 8.3 % Normal 1.7-12.0 [facility] Comment on above: Performed By: #### C BC #### [facility] [address] [place] [address] [address] Vaishali Dorsey NEUT # 7.6 103/ul Critically high 1.4-6.5 [facility] Comment on above: Performed By: #### C BC #### [facility] [address] [place] [address] Dr. Vaishali Dorsey Neutrophils/100 WBC (Bld) 60.4 % Normal 43.0-75.0 [facility] Comment on above: Performed By: #### C BC #### [facility] [address] [place] [address] Dr. Vaishali Dorsey Platelet mean volume (Bld) [Entitic vol] 10.7 fL Normal 9.5-13.5 [facility] Comment on above: Performed By: #### C BC #### [facility] [address] [place] [address] Dr. Vaishali Dorsey PLT 226 103/ul Normal 150-450 [facility] Comment on above: Performed By: #### C BC #### [facility] [address] [place] [address] Dr. Vaishali Dorsey RBC 4.69 106/ul Critically low 4.70-6.10 [facility] Comment on above: Performed By: #### C BC #### [facility] [address] [place] [address] Dr. Vaishali Dorsey WBC 12.6 103/ul Critically high 4.0-11.0 [facility] Comment on above: Performed By: #### C BC #### [facility] [address] [place] [address] Dr. Vaishali Dorsey FERRITINon 06-28-2022 Ferritin [Mass/Vol] 8.0 ng/mL Critically low 26.0-388.0 [facility] Comment on above: Performed By: #### F ERR #### [facility] [address] [place] [address] Dr. Vaishali Dorsey PROF 14(COMP METB)on 022 Albumin [Mass/Vol] 3.8 g/dL Normal 3.4-5.0 [facility] Comment on above: Performed By: #### C MP #### [facility] [address] [place] [address] Dr. Vaishali Dorsey Albumin/Globulin [Mass ratio] 1.1 {ratio} Normal [facility] Comment on above: Performed By: #### C MP #### [facility] [address] [place] [address] Dr. Vaishali Dorsey ALP [Catalytic activity/Vol] 66 U/L Normal 46-116 [facility] Comment on above: Performed By: #### C MP #### [facility] [address] [place] [address] Dr. Vaishali Dorsey ALT [Catalytic activity/Vol] 22 U/L Normal 16-63 [facility] Comment on above: Performed By: #### C MP #### [facility] [address] [place] [address] Dr. Vaishali Dorsey Anion gap [Moles/Vol] 10.4 mmol/L Normal [facility] Comment on above: Performed By: #### C MP #### [facility] [address] [place] [address] Dr. Vaishali Dorsey AST [Catalytic activity/Vol] 19 U/L Normal 15-37 [facility] Comment on above: Performed By: #### C MP #### [facility] [address] [place] [address] Dr. Vaishali Dorsey Bilirubin [Mass/Vol] 0.2 mg/dL Normal 0.2-1.0 [facility] Comment on above: Performed By: #### C MP #### [facility] [address] [place] [address] [address] Vaishali Dorsey Calcium [Mass/Vol] 9.2 mg/dL Normal 8.5-10.1 [facility] Comment on above: Performed By: #### C MP #### [facility] [address] [place] [address] [address] Vaishali Dorsey Chloride [Moles/Vol] 107 mmol/L Normal 98-107 [facility] Comment on above: Performed By: #### C MP #### [facility] [address] [place] [address] Dr. Vaishali Dorsey CO2 [Moles/Vol] 31.2 mmol/L Normal 21.0-32.0 [facility] Comment on above: Performed By: #### C MP #### [facility] [address] [place] [address] Dr. Vaishali Dorsey Creatinine [Mass/Vol] 1.02 mg/dL Normal 0.70-1.30 [facility] Comment on above: Performed By: #### C MP #### [facility] [address] [place] [address] Dr. Vaishali Dorsey EGFR-AF SYRIAN >60 Normal >=60 [facility] Comment on above: Performed By: #### C MP #### [facility] [address] [place] [address] Dr. Vaishali Doresy EGFR-NON AF SYRIAN >60 Normal >=60 [facility] Comment on above: Performed By: #### C MP #### [facility] [address] [place] [address] [address] Vaishali Dorsey Globulin (S) [Mass/Vol] 3.6 g/dL Normal [facility] Comment on above: Performed By: #### C MP #### [facility] [address] [place] [address] Dr. Vaishali Dorsey Glucose [Mass/Vol] 101 mg/dL Normal 74-106 [facility] Comment on above: Performed By: #### C MP #### [facility] [address] [place] [address] Dr. Vaishali Dorsey Potassium [Moles/Vol] 4.6 mmol/L Normal 3.5-5.1 [facility] Comment on above: Performed By: #### C MP #### [facility] [address] [place] [address] Dr. Vaishali Dorsey Protein [Mass/Vol] 7.4 g/dL Normal 6.4-8.2 [facility] Comment on above: Performed By: #### C MP #### [facility] [address] [place] [address] Dr. Vaishali Dorsey Sodium [Moles/Vol] 144 mmol/L Normal 136-145 [facility] Comment on above: Performed By: #### C MP #### [facility] [address] [place] [address] Dr. Vaishali Dorsey Urea nitrogen [Mass/Vol] 14.0 mg/dL Normal 7.0-18.0 [facility] Comment on above: Performed By: #### C MP #### [facility] [address] [place] [address] Dr. Vaishali Dorsey Urea nitrogen/Creatinin e [Mass ratio] 13.7 mg/mg Normal [facility] Comment on above: Performed By: #### C MP #### [facility] [address] [place] [address] Dr. Vaishali Dorsey PSA, FREE AND TOTAL RATIOon 04-21-2022 % Free PSA 18.9 % Normal [facility] Comment on above: Result Comment: The table below lists the probability of prostate cancer for men with non-suspicious HUGO results and total PSA between 4 and 10 ng/mL, by patient age (Costa et al, RYLIE 1998, 279:1542). % Free PSA 50-64 yr 65-75 yr 0.00-10.00% 56% 55% 10.01-15.00% 24% 35% 15.01-20.00% 17% 23% 20.01-25.00% 10% 20% >25.00% 5% 9% Please note: Costa et al did not make specific recommendations regarding the use of percent free PSA for any other population of men. Performed By: #### P SAFREE #### [facility] [address] [place] [address] Dr. Vaishali Dorsey Prostate specific Ag [Mass/Vol] 6.5 ng/mL Critically high 0.0-4.0 [facility] Comment on above: Result Comment: [place] PEGUERO methodology. . According to the [place] [employer], Serum PSA should decrease and remain at undetectable levels after radical prostatectomy. The AUA defines biochemical recurrence as an initial PSA value 0.2 ng/mL or greater followed by a subsequent confirmatory PSA value 0.2 ng/mL or greater. Values obtained with different assay methods or kits cannot be used interchangeably. Results cannot be interpreted as absolute evidence of the presence or absence of malignant disease. Performed By: #### P SAFREE #### [facility] [address] [place] [address] Dr. Vaishali Dorsey PSA, Free 1.23 ng/mL Normal N/A [facility] Comment on above: Result Comment: [place] PEGUERO methodology. Performed By: #### P SAFREE #### [facility] [address] [place] [address] Dr. Vaishali Dorsey COVID-19 [facility] 03-24-2022 SARS-CoV-2 (COVID-19) RNA NICK+probe Ql (Unsp spec) Negative Normal Negative [facility] Comment on above: Order Comment: Healt hcare Worker?: N Result Comment: Testing for SARS-CoV-2 by RT-PCR This test was developed and its performance characteristics determined by [employer], [employer]) and validated at the [facility]. This test has not been FDA cleared or approved. This test has been authorized by FDA under an Emergency Use Authorization (EUA). This test has been validated in accordance with the FDA's Guidance Document (Policy for Diagnostics Testing in Laboratories Certified to Perform High Complexity Testing under CLIA prior to Emergency Use Authorization for Coronavirus Disease-2019 during the Public Health Emergency) issued on January 02, 2020. This test is only authorized for the duration of time the declaration that circumstances exist justifying the authorization of the emergency use of in vitro diagnostic tests for detection of SARS-CoV-2 virus and/or diagnosis of COVID-19 infection under section 564(b)(1) of the Act, 21 U.S.C. 360bbb-3(b)(1), unless the authorization is terminated or revoked sooner. PERFORMED BY: [place] [address] PATHOLOGIST HEALTH COUNSELOR KAMERON MARTIN M.D. Performed By: #### C OVID 19 [facility] #### [facility] [address] [id number] [facility] Basic Metabolic Panlon 10-22 Anion gap 12 mmol/L Normal 9-18 [facility] Comment on above: Performed By: #### I CA, CBCDIF, VITD, PTHI, CMP, URIC ####[place] [address] [address] [phone] Calcium 8.2 mg/dL Low 8.5-10.2 [facility] Comment on above: Performed By: #### I CA, CBCDIF, VITD, PTHI, CMP, URIC ####[place] [address] [address] [phone] Chloride 102 mmol/L Normal 97-105 [facility] Comment on above: Performed By: #### I CA, CBCDIF, VITD, PTHI, CMP, URIC ####[place] [id number] [phone] CO2 26 mmol/L Normal 22-30 [facility] Comment on above: Performed By: #### I CA, CBCDIF, VITD, PTHI, CMP, URIC ####[place] [id number] [place] [phone] Creatinine 0.98 mg/dL Normal 0.73-1.22 [facility] Comment on above: Performed By: #### I CA, CBCDIF, VITD, PTHI, CMP, URIC ####[place] [id number] [place] [phone] eGFR (non-black) mL/min/{1.73_m2} Normal [facility] Comment on above: Result Comment: eGFR (Estimated GFR) Units of measure: mL/min/1.73 meters squaredeGFR is derived from the reexpressed MDRD Study equation using the following parameters: serum creatinine, age, gender and race. The creatinine assay has been calibrated to be traceable to IDMS.An eGFR <60 mL/min/1.73m2 for >3 months is consistent with chronic kidney disease. Refer to KDOQI guidelines for clinical interpretation.In patients with unstable renal function, e.g. those with acute kidney injury, the eGFR may not accurately reflect actual GFR. Performed By: #### I CA, CBCDIF, VITD, PTHI, CMP, URIC ####[facility] [place], [place] [phone] Glucose mass conc 85 mg/dL Normal 74-99 [facility] Comment on above: Result Comment: The [place] [employer] (ADA) provides guidance for cutoff values for fasting glucose and random glucose. The ADA defines fasting as no caloric intake for at least 8 hours. Fasting plasma glucose results between 100 to 125 mg/dL indicate increased risk for diabetes (prediabetes).Fasting plasma glucose results greater than or equal to 126 mg/dL meet the criteria for diagnosis of diabetes. In the absence of unequivocal hyperglycemia, results should be confirmed by repeat testing. In a patient with classic symptoms of hyperglycemia or hyperglycemic crisis, random plasma glucose results greater than or equal to 200 mg/dL meet the criteria for diagnosis of diabetes.Reference: Standards of Medical Care in Diabetes 2016, [place] [employer]. Diabetes Care. 2016.39(Suppl 1). Performed By: #### I CA, CBCDIF, VITD, PTHI, CMP, URIC ####[facility] [place], [place] [phone] Potassium molar conc 3.5 mmol/L Low 3.7-5.1 [facility] Comment on above: Performed By: #### I CA, CBCDIF, VITD, PTHI, CMP, URIC ####[facility] [place], [place] [phone] Sodium 140 mmol/L Normal 136-144 [facility] Comment on above: Performed By: #### I CA, CBCDIF, VITD, PTHI, CMP, URIC ####[place] [id number], [place] [phone] Urea nitrogen 5 mg/dL Low 9-24 [facility] Comment on above: Performed By: #### I CA, CBCDIF, VITD, PTHI, CMP, URIC ####[place] [address] [address] [place], [place] [phone] CBCon 10-22-2017 Erythrocyte distribution width Auto Ratio (RBC) 13.1 % Normal 11.5-15.0 [facility] Comment on above: Performed By: #### I CA, CBCDIF, VITD, PTHI, CMP, URIC ####[place] [address] [address] [phone] Erythrocytes (RBC) 10*6/uL Normal <0.01 [facility] Comment on above: Performed By: #### I CA, CBCDIF, VITD, PTHI, CMP, URIC ####[place] [address] [address] [place], [place] [phone] Erythrocytes (RBC) 3.32 10*6/uL Low 4.20-6.00 [facility] Comment on above: Performed By: #### I CA, CBCDIF, VITD, PTHI, CMP, URIC ####[place] [address] [address] [place], [place] [phone] Hematocrit (HCT) 29.6 % Low 39.0-51.0 [facility] Comment on above: Performed By: #### I CA, CBCDIF, VITD, PTHI, CMP, URIC ####[place] [address] [address] [phone] Hemoglobin mass conc (Bld) 9.8 g/dL Low 13.0-17.0 [facility] Comment on above: Performed By: #### I CA, CBCDIF, VITD, PTHI, CMP, URIC ####[place] [address] [address] [place] [phone] MCH 29.5 pG Normal 26.0-34.0 [facility] Comment on above: Performed By: #### I CA, CBCDIF, VITD, PTHI, CMP, URIC ####[place] [address] [address] [place], [place] [phone] MCHC mass conc (RBC) 33.1 g/dL Normal 30.5-36.0 [facility] Comment on above: Performed By: #### I CA, CBCDIF, VITD, PTHI, CMP, URIC ####[place] [address] [address] [place] [phone] MCV 89.2 fL Normal 80.0-100.0 [facility] Comment on above: Performed By: #### I CA, CBCDIF, VITD, PTHI, CMP, URIC ####[place] [address] [address] [place] [phone] Platelet mean volume (PMV) 10.5 fL Normal 9.0-12.7 [facility] Comment on above: Performed By: #### I CA, CBCDIF, VITD, PTHI, CMP, URIC ####[place] [address] [address], [place] [phone] Platelets 267 10*3/uL Normal 150-400 [facility] Comment on above: Performed By: #### I CA, CBCDIF, VITD, PTHI, CMP, URIC ####[place] [address] [address] [place], [place] [phone] WBC (Leukocytes) 10.19 10*3/uL Normal 3.70-11.00 [facility] Comment on above: Performed By: #### I CA, CBCDIF, VITD, PTHI, CMP, URIC ####[place] [address] [address] [place], [place] [phone] CNDSon 10-22-2017 CNDS HNO ID: [id number] thor: Feliciano Santanaervice: UrologyAuthor Type: PhysicianType: Discharge SummariesFiled: 10/23/2017 8:54 AMNote Text:DISCHARGE SUMMARYPATIENT NAME: Darrell Nelson ADMISSION DATE: 10/21/2017MRN: [id number] DISCHARGE DATE: 10/22/2017Attending Physician: Feliciano Vega for Hospitalization: HematuriaActive Problems: LeukocytosisResolved Problems: * No resolved hospital problems. *Operations During Hospitalization: NoneProcedures During Hospitalization: cystoscopy, right stent removal atbedsid eHospital Course: Patient was admitted from OSH with right stent pain andintermittent hematuria. Pain was controlled on oral medications. Renalfunction remained normal. The stent was removed HD #2 without issue. Thepatient was then deemed fit for discharge.Labs and Procedures Pending at Discharge: No pending results.Consulting Teams During Hospitalization: NonePatient Condition @ Discharge: StableDischarge Disposition: Home/Self CareInformation Provided to Patient:Discharge Medications: Current Discharge Medication ListSTART taking these medications!! tamsulosin ER (FLOMAX) 0.4 mgTake 0.4 mg by mouth once daily. 30 minutes after the same meal each day.Qty: 30 capsule Refills: 0!! - Potential duplicate medications found. Please discuss with provider.CONTINUE these medications which have NOT CHANGEDoxybutynin (DITROPAN) 5 mgTake 5 mg by mouth three times daily.Qty: 30 tablet Refills: 0Associated Diagnoses:Bladder spasms!! tamsulosin ER (FLOMAX) 0.4 mg0.4 mg.Refills: 0losartan (COZAAR) 25 mgTake 25 mg by mouth once daily.Refills: 0phenazopyridine (PYRIDIUM, GERIDIUM) 100 mgTake 100 mg by mouth three times daily as needed.Qty: 30 tablet Refills: 0Associated Diagnoses:Bladder spasmsdocusate sodium (COLACE) 100 mgTake 100 mg by mouth twice daily. As long as taking opioids/narcotics.Stop taking if loose bowel movements or diarrhea.Qty: 40 capsule Refills: 0potassium citrate ER (UROCIT-K) 10 mEq10 mEq.Refills: 0multivitamin 1 tabletTake 1 tablet by mouth once daily.!! - Potential duplicate medications found. Please discuss with provider.Future Appointments:No future appointments.TIME OF CARE: Discharge Management: I personally spent greater than 30minutes involved in the discharge management of this patient.SIGNATURE: Tk Abdalla MD PAGER: [phone]: October 22, 2017TIME: 9:32 AMFeliciano Schroeder MDDirector, Surgical Stone Disease, [facility]rologic InstituteProfessor of Surgery, [facility] Health SystemPager [phone]/23/2017 Normal [place] [facility] PROGRESSon 10-22-2017 PROGRESS HNO ID: [id number] thor: Tk (NIK Escobarervice: UrologyAuthor Type: ResidentType: Progress NotesFiled: 10/22/2017 9:14 AMNote Text:UROLOGY INPATIENT PROGRESS NOTESERVICE DATE: 10/22/2017SERVICE TIME: 7:31amSubjectiveNo acute events overnightDenies abdominal/flank painNo N/VObjectivePHYSICAL EXAM:Gender:General: NADHEENT: Normocephalic, atraumaticCV:: RRR, well-perfusedResp: breathing comfortably on room airGI: Soft, NDNTGU: christian draining clear derick urineExtremities: no cyanosis or clubbing, no edemaNeuro: Alert and orientedPsych: Normal affect?Current hospital medications:NaCl 0.9% iv infusion 75 mL/hr INTRAVENOUS CONTINUOUSacetaminophen 325-650 mg tab(s) (TYLENOL) 325-650 mg ORAL q 4 H PRNondansetron (PF) 4 mg injection (ZOFRAN) 4 mg INTRAVENOUS q 6 H PRNceFAZolin 2 g in dextrose (iso-osmotic) 100 mL (ANCEF, KEFZOL) 2 gINTRAVENOUS q 8 Htamsulosin ER 0.4 mg cap(s) (FLOMAX) 0.4 mg ORAL AT BEDTIMEoxybutynin 5 mg tab(s) (DITROPAN) 5 mg ORAL TIDVITALS:BP 154/78 Pulse 84 Temp 36.9 ?C (98.5 ?F) (Oral) Resp 16 Ht 177.8cm (5' 10 ) Wt 80.4 kg (177 lb 4 oz) SpO2 95% BMI 25.43 kg/d5Vvmizpfocvz max: Temp (24hrs), Av.1 ?C (98.7 ?F), Min:36.8 ?C (98.3?F), Max:37.2 ?C (99 ?F)Intake/Output 10/21/17 0700 - 10/22/17 0659 10/22/17 0700 - 10/23/17 0659 Intake (ml) 2180 -- Output (ml) 2550 650 Net (ml) -370 -650LABS:BUN (mg/dL)Date Value10/22/2017 501 801 701 9111/13/2016 10 Creatinine (mg/dL)Date Value10/22/2017 0.98010/21/2017 0.9201 0.9001 1.0012 1.05 Recent Labs 457132MVV 10.19HB 9.8*HCT 29.6*NA 140K 3.5*CHLOR 102CO2 26GLUC 85Glucose, Urine (mg/dL)Date Value10/21/2017 Negative Bilirubin, Urine (no units)Date Value10/21/2017 Negative Ketones, Urine (no units)Date Value10/21/2017 Negative Specific [place], Ur (no units)Date Value10/21/2017 1.010 Hemoglobin/Blood ,Ur ( )Date Value10/21/2017 3+ (A) pH, Urine (no units)Date Value10/21/2017 6.0 Protein, Urine (mg/dL)Date Value10/21/2017 30 (A) Nitrites (no units)Date Value10/21/2017 Negative WBC, Urine (/HPF)Date Value10/21/2017 >25 (A) Color (no units)Date Value10/21/2017 Yellow Clarity (no units)Date Value10/21/2017 Cloudy (A) Assessment/PlanAct [facility] Problems Leukocytosis [D72.829]Mr. Nelson is a 67 year old male with h/o stone s/p R PCNL for two large Rrenal pelvis stones 10/11/17 with uncomplicated post-operative course,discharged on POD2 who presents as transfer from OSH with right stent painand intermittent hematuria.Procedure:Patient presents for cystoscopy. Verbal consent obtained. A timeout wasperformed using 3 patient identifiers. Prepped and draped in a sterilefashion. The flexible cystoscope was inserted atraumatically per urethra.The indwelling ureteral stent was identified at the right ureteralorifice. The stent was grasped using flexible graspers and brought to theurethral meatus. The stent was removed completely and was intact. Thisconcluded the procedure.Neuro - Pain well controlled on oral medication#CV/Resp --Encourage IS- No acute issues#GI --Diet: regular-Colace, Zofran# -- Creatinine 0.98- Christian: draining clear derick urine- Obtain urine culture-Stent removal at bedside this morning#Activity - OOB to chair and Ambulate with assistance#DVT prophylaxis - SCDs#Antibiotics - Ancef 2g q8h for prophylaxis?SIGNATURE: Tk Abdalla MD PATIENT NAME: Darrell ElizaldeATE: October 22, 2017 : 7:31 AM PAGER/CONTACT #: [phone] Normal [facility] Basic Metabolic Panlon 10-21 Anion gap 14 mmol/L Normal 9-18 [facility] Comment on above: Performed By: #### I CA, CBCDIF, VITD, PTHI, CMP, URIC ####[facility] [address] [place], [place] [phone] Calcium 8.3 mg/dL Low 8.5-10.2 [facility] Comment on above: Performed By: #### I CA, CBCDIF, VITD, PTHI, CMP, URIC ####[facility] [address] [place], [place] [phone] Chloride 104 mmol/L Normal 97-105 [facility] Comment on above: Performed By: #### I CA, CBCDIF, VITD, PTHI, CMP, URIC ####[facility]CJill [place] [phone] CO2 25 mmol/L Normal 22-30 [facility] Comment on above: Performed By: #### I CA, CBCDIF, VITD, PTHI, CMP, URIC ####[facility]CJill [place]ille [phone] Creatinine 0.92 mg/dL Normal 0.73-1.22 [facility] Comment on above: Performed By: #### I CA, CBCDIF, VITD, PTHI, CMP, URIC ####[place] [phone] AveCJill [place] [phone] eGFR (non-black) mL/min/{1.73_m2} Normal [place] [facility] Comment on above: Result Comment: eGFR (Estimated GFR) Units of measure: mL/min/1.73 meters squaredeGFR is derived from the reexpressed MDRD Study equation using the following parameters: serum creatinine, age, gender and race. The creatinine assay has been calibrated to be traceable to IDMS.An eGFR <60 mL/min/1.73m2 for >3 months is consistent with chronic kidney disease. Refer to KDOQI guidelines for clinical interpretation.In patients with unstable renal function, e.g. those with acute kidney injury, the eGFR may not accurately reflect actual GFR. Performed By: #### I CA, CBCDIF, VITD, PTHI, CMP, URIC ####[facility] [place] [phone] Glucose mass conc 79 mg/dL Normal 74-99 [facility] Comment on above: Result Comment: The [place] [employer] (ADA) provides guidance for cutoff values for fasting glucose and random glucose. The ADA defines fasting as no caloric intake for at least 8 hours. Fasting plasma glucose results between 100 to 125 mg/dL indicate increased risk for diabetes (prediabetes).Fasting plasma glucose results greater than or equal to 126 mg/dL meet the criteria for diagnosis of diabetes. In the absence of unequivocal hyperglycemia, results should be confirmed by repeat testing. In a patient with classic symptoms of hyperglycemia or hyperglycemic crisis, random plasma glucose results greater than or equal to 200 mg/dL meet the criteria for diagnosis of diabetes.Reference: Standards of Medical Care in Diabetes 2016, [place] [employer]. Diabetes Care. 2016.39(Suppl 1). Performed By: #### I CA, CBCDIF, VITD, PTHI, CMP, URIC ####[place] [address] [address] [place] [phone] Potassium molar conc 3.7 mmol/L Normal 3.7-5.1 [facility] Comment on above: Performed By: #### I CA, CBCDIF, VITD, PTHI, CMP, URIC ####[address] [place] [phone] Sodium 143 mmol/L Normal 136-144 [facility] Comment on above: Performed By: #### I CA, CBCDIF, VITD, PTHI, CMP, URIC ####[address] [place] [phone] Urea nitrogen 8 mg/dL Low 9-24 [facility] Comment on above: Performed By: #### I CA, CBCDIF, VITD, PTHI, CMP, URIC ####[address] [place] [phone] CBC and Differentialon 10-21 Abs Baso 0.05 k/uL Normal <0.11 [facility] Comment on above: Performed By: #### I CA, CBCDIF, VITD, PTHI, CMP, URIC ####[place] [address] [address] [place] [phone] Abs [place] 0.81 k/uL Normal <0.87 [facility] Comment on above: Performed By: #### I CA, CBCDIF, VITD, PTHI, CMP, URIC ####[place] [address] [place] [phone] Abs Neut 6.30 k/uL Normal 1.45-7.50 [facility] Comment on above: Performed By: #### I CA, CBCDIF, VITD, PTHI, CMP, URIC ####[place] [address] [address] [place] [phone] Basophils/100 WBC Auto (Bld) 0.5 % Normal [facility] Comment on above: Performed By: #### I CA, CBCDIF, VITD, PTHI, CMP, URIC ####[place] [address] [address] [place] [phone] DTYPE Auto Diff Normal [facility] Comment on above: Performed By: #### I CA, CBCDIF, VITD, PTHI, CMP, URIC ####[place] [address] [address] [place] [phone] Eosinophils 0.24 10*3/uL Normal <0.46 [facility] Comment on above: Performed By: #### I CA, CBCDIF, VITD, PTHI, CMP, URIC ####[place] [address] [address] [place] [phone] Eosinophils/100 leukocytes 2.3 % Normal [facility] Comment on above: Performed By: #### I CA, CBCDIF, VITD, PTHI, CMP, URIC ####[place] [address] [address] [place] [phone] Erythrocyte distribution width Auto Ratio (RBC) 13.1 % Normal 11.5-15.0 [facility] Comment on above: Performed By: #### I CA, CBCDIF, VITD, PTHI, CMP, URIC ####[place] [address] [address] [place] [phone] Erythrocytes (RBC) 3.34 10*6/uL Low 4.20-6.00 [facility] Comment on above: Performed By: #### I CA, CBCDIF, VITD, PTHI, CMP, URIC ####[place] [address] [address] [place] [phone] Erythrocytes (RBC) 10*6/uL Normal <0.01 [facility] Comment on above: Performed By: #### I CA, CBCDIF, VITD, PTHI, CMP, URIC ####[place] [address] [address] [place] [phone] Erythrocytes (RBC) 0.0 /100 WBC Normal 0 [facility] Comment on above: Performed By: #### I CA, CBCDIF, VITD, PTHI, CMP, URIC ####[place] [address] [address] [place] [phone] Hematocrit (HCT) 30.2 % Low 39.0-51.0 [facility] Comment on above: Performed By: #### I CA, CBCDIF, VITD, PTHI, CMP, URIC ####[place] [address] [address] [place] [phone] Hemoglobin mass conc (Bld) 10.2 g/dL Low 13.0-17.0 [facility] Comment on above: Performed By: #### I CA, CBCDIF, VITD, PTHI, CMP, URIC ####[place] [address] [address] [place] [phone] Lymphocytes 3.06 10*3/uL Normal 1.00-4.00 [facility] Comment on above: Performed By: #### I CA, CBCDIF, VITD, PTHI, CMP, URIC ####[place] [address] [address] [place] [phone] Lymphocytes/100 leukocytes 29.3 % Normal [facility] Comment on above: Performed By: #### I CA, CBCDIF, VITD, PTHI, CMP, URIC ####[place] [address] [place] [phone] MCH 30.5 pG Normal 26.0-34.0 [facility] Comment on above: Performed By: #### I CA, CBCDIF, VITD, PTHI, CMP, URIC ####[place] [address] [place] [phone] MCHC mass conc (RBC) 33.8 g/dL Normal 30.5-36.0 [facility] Comment on above: Performed By: #### I CA, CBCDIF, VITD, PTHI, CMP, URIC ####[address] [place] [phone] MCV 90.4 fL Normal 80.0-100.0 [facility] Comment on above: Performed By: #### I CA, CBCDIF, VITD, PTHI, CMP, URIC ####[place] [phone] Monocytes/100 leukocytes 7.7 % Normal [facility] Comment on above: Performed By: #### I CA, CBCDIF, VITD, PTHI, CMP, URIC ####[address] [place] [phone] Neutrophils/100 WBC Auto (Bld) 60.2 % Normal [facility] Comment on above: Performed By: #### I CA, CBCDIF, VITD, PTHI, CMP, URIC ####[place] [address] [address] [place] [phone] Platelet mean volume (PMV) 10.7 fL Normal 9.0-12.7 [facility] Comment on above: Performed By: #### I CA, CBCDIF, VITD, PTHI, CMP, URIC ####[address] [place] [phone] Platelets 260 10*3/uL Normal 150-400 [facility] Comment on above: Performed By: #### I CA, CBCDIF, VITD, PTHI, CMP, URIC ####[facility] [address]COtis [place], [place] [phone] WBC (Leukocytes) 10.46 10*3/uL Normal 3.70-11.00 [facility] Comment on above: Performed By: #### I CA, CBCDIF, VITD, PTHI, CMP, URIC ####[facility] [place], [place] [phone] Protimeon 10-21-2017 INR Coag RelTime (Bld) 1.0 {INR} Normal 0.9-1.3 [facility] Comment on above: Result Comment: Laisha min K Antagonist (VKA) Therapeutic Range: INR 2 to 3 (Target INR of 2.5)Note: For patients treated with VKA drugs, such as warfarin, the [place] [employer] 2012 Guideline recommends a therapeutic INR range of 2 to 3 (target INR of 2.5). This recommendation includes high-risk patients with antiphospholipid syndrome with previous arterial or venous thromboembolism, current-generation mechanical or bioprosthetic aortic heart valve replacement.Note: Patients with mechanical aortic valve replacement and additional risk factors for thromboembolic events (atrial fibrillation, previous thromboembolism, LV dysfunction, hypercoagulable conditions) or an older generation mechanical AVR (i.e., ball in-Cage) or any mechanical MVR should have a INR therapeutic range of 2.5 to 3.5 (target INR of 3).Tammy GH, et al. Chest 2012, 141:7S-47SNishjohana RA, et al. [facility] 2017, 70: 252-289 Performed By: #### I CA, CBCDIF, VITD, PTHI, CMP, URIC ####[facility] [address] [place], [place] [phone] PT Sec 10.4 sec Normal 9.7-13.0 [facility] Comment on above: Performed By: #### I CA, CBCDIF, VITD, PTHI, CMP, URIC ####[facility] [address] [place], [place] [phone] Type and Screenon 10-21-2017 ABO/RH(D) Positive Normal [facility] Comment on above: Performed By: #### I CA, CBCDIF, VITD, PTHI, CMP, URIC ####[place] [phone]CJ[place] [phone] Antibody Screen Negative Normal [facility] Comment on above: Performed By: #### I CA, CBCDIF, VITD, PTHI, CMP, URIC ####[place] [address] [place] [phone] Urinalysison 10-21-2017 Bilirubin, Urine Negative Normal Negative [facility] Comment on above: Performed By: #### I CA, CBCDIF, VITD, PTHI, CMP, URIC ####[place] [address] [address] [place] [phone] Comments SEE COMMENT Normal [facility] Comment on above: Result Comment: Micr oscopic Examination Performed Performed By: #### I CA, CBCDIF, VITD, PTHI, CMP, URIC ####[place] [address] [place] [phone] Erythrocytes (RBC) 10*6/uL Critically abnormal 0-3 [facility] Comment on above: Performed By: #### I CA, CBCDIF, VITD, PTHI, CMP, URIC ####[place] [address] [place] [phone] Hemoglobin mass conc (Bld) 3+ Critically abnormal Negative [facility] Comment on above: Performed By: #### I CA, CBCDIF, VITD, PTHI, CMP, URIC ####[place] [phone]CJ[address] [place] [phone] Leukest 3+ Critically abnormal Negative [facility] Comment on above: Performed By: #### I CA, CBCDIF, VITD, PTHI, CMP, URIC ####[place] [phone]CJ[address] [place] [phone] pH of blood 6.0 [pH] Normal 4.5-8.0 [facility] Comment on above: Performed By: #### I CA, CBCDIF, VITD, PTHI, CMP, URIC ####[place] [phone]CJ[address] [place] [phone] Protein, Urine 30 mg/dL Critically abnormal Negative [facility] Comment on above: Performed By: #### I CA, CBCDIF, VITD, PTHI, CMP, URIC ####[place] [address]CRobert [place] [phone] Specific [place], Ur 1.010 Normal 1.005-1.03 0 [facility] Comment on above: Performed By: #### I CA, CBCDIF, VITD, PTHI, CMP, URIC ####[place] [address]CRobert [place] [phone] Urine Kelby Comment SEE COMMENT Normal [facility] Comment on above: Result Comment: N/A Performed By: #### I CA, CBCDIF, VITD, PTHI, CMP, URIC ####[place] [address]Adam [place] [phone] Urine, clarity Cloudy Critically abnormal Clear [facility] Comment on above: Performed By: #### I CA, CBCDIF, VITD, PTHI, CMP, URIC ####[place] [address] [place] [phone] Urine, color Yellow Normal Yellow [facility] Comment on above: Performed By: #### I CA, CBCDIF, VITD, PTHI, CMP, URIC ####[place] [address] [address] [place] [phone] Urine, epithelial cells in sediment SEE COMMENT Normal [facility] Comment on above: Result Comment: FewS quamous Epithelial Cells Performed By: #### I CA, CBCDIF, VITD, PTHI, CMP, URIC ####[place] [address] [address]CR[address] [place] [phone] Urine, glucose presence Negative Normal Negative [facility] Comment on above: Performed By: #### I CA, CBCDIF, VITD, PTHI, CMP, URIC ####[facility] [address]CJ[address] [place] [phone] Urine, ketones presence Negative Normal Negative [facility] Comment on above: Performed By: #### I CA, CBCDIF, VITD, PTHI, CMP, URIC ####[facility]Cbl[facility] [facility], [place] [phone] Urine, nitrite presence Negative Normal Negative [facility] Comment on above: Performed By: #### I CA, CBCDIF, VITD, PTHI, CMP, URIC ####[place] [phone]CJ[address] [place] [phone] Urine, urobilinogen Normal Normal Normal [facility] Comment on above: Performed By: #### I CA, CBCDIF, VITD, PTHI, CMP, URIC ####[place] [phone]CJ[address] [place] [phone] WBC (Leukocytes) 10*3/uL Critically abnormal 0-5 [facility] Comment on above: Performed By: #### I CA, CBCDIF, VITD, PTHI, CMP, URIC ####[place] [phone]CJ[address] [place] [phone] Urine Cultureon 10-21-2017 Urine culture, bacteria Sp. Request/Comment: - Specimen received in preservative Culture Result - No growth (<1,000 CFU/ml) Normal [facility] Comment on above: Performed By: #### I CA, CBCDIF, VITD, PTHI, CMP, URIC ####[place] [phone]CJ[address] [place] [phone] HISTORY PHYSICALon 8 HISTORY PHYSICAL HNO ID: [id number] thor: Al (Res) Ray, MDService: UrologyAuthor Type: ResidentType: HANDPFiled: 10/21/2017 2:31 PMNote Text:HANDP: UROLOGY SERVICENAME: Darrell DennisRN: [id number]: [id number] DATE: 10/19/2017SERVICE TIME: 5:04 AMPRICLEBUR[facility] PHYSICIAN: Abigail Sanchez, MDASSESSMENT AND PLANMr. Alvin is a 67 year old male with h/o stone s/p R PCNL for two large Rrenal pelvis stones 10/11/17 with uncomplicated post-operative course,discharged on POD2 who presents as transfer from OSH with right stent painand intermittent hematuria.He reports presenting to OSH every couple of days since discharge due tointractable right flank pain which only resolves with morphine. His lastdose was two days ago. He denies flank pain at this time. Additionally, hehas had intermittent hematuria. Urine has appeared clear since yesterday.Currently denies fever, chills, abdominal pain, nausea or vomiting.-#Neuro - Pain well controlled on oral medication#CV/Resp --Encourage IS- No acute issues#GI --Diet: regular-Colace, Zofran# --Scr: pending-Christian: draining clear derick urine-Obtain urine culture- Renal ultrasound- Will plan for stent removal at bedside#Activity - OOB to chair and Ambulate with assistance#DVT prophylaxis - SCDs#Antibiotics - Ancef 2g q8h for prophylaxisObtain CBC/BMPPlan discussed with Dr. Adarsh Abdalla III, MDUrology PGY-2Pager: [phone] 201710:00Overnight and on weekends please page [phone] OF PRESENT ILLNESSMr. Alvin is a 67 year old male with PMHx HTN, 20yr h/o stones s/p ESWL inpast previously on Urocit-K w/ obstructive uropathy in 09/2017 s/pureteral stent placement at OSH and now POD8 s/p R PCNL who is admittedfor right stent pain.Pt underwent PCNL 10/11/17. Urology obtained access. Case wasuncomplicated, a 1.5cm stone and a 2cm stone were broken up and removedwith rigid and flexible nephroscopy; R ureteral stent was placed. POD1,pt was looking very well but was kept an additional night due to hematuriaand hgb from to 11.9 from 13.7 (iimediately post-op). On POD2, pt had metcriteria for discharge, hgb was stable and urine was light pink/yellow.Christian was maintained after failing TOV and pt was d/c-ed home.Since surgery, he reports presenting to OSH every couple of days due tointractable right flank pain which only resolves with morphine. His lastdose was two days ago. He denies flank pain at this time. Additionally, hehas had intermittent hematuria. Urine has appeared clear since yesterday.Currently denies fever, chills, abdominal pain, nausea or vomiting. PAST MEDICAL HISTORY: No past medical history on file.PAST SURGICAL HISTORY: No past surgical history on file.FAMILY HISTORY: No family history on file.SOCIAL HISTORY:Social HistorySubstance Use Topics- Smoking status: Never Smoker- Smokeless tobacco: Never Used- Alcohol use NoMEDICATIONS:Prior to Admission Medications:No prescriptions prior to admission.No current hospital medications on file.CURRENT ALLERGIES: Allergies As of Date: 10/18/2017(No Known Allergies)Fully Assessed 10/13/2017COMPLETE REVIEW OF SYSTEMS:REVIEW OF SYSTEMSPAIN ASSESSMENT: No chronic pain, no acute painGENERAL: Negative for weight loss or feversHEENT: Negative for changes in hearing or visionNECK: Negative for neck pain or swellingRESPIRATORY: Negative for cough, wheezing, or shortness of breathCARDIOVASCULAR: Negative for chest painGI: No nausea, vomiting, or diarrheaGU: See HPIMUSCULOSKELETAL: Negative for joint pain or swellingSKIN: Negative for lesions or rashesHEMATOLOGY: Negative for bleeding or clotting problemsNEURO: Negative for strokes or seizuresOBJECTIVEPHYSICAL EXAM:No data found.There is no height or weight on file to calculate BMI.General: NADHEENT: Normocephalic, atraumaticCV:: RRR, well-perfusedResp: breathing comfortably on room airGI: Soft, NDNTGU: christian draining clear derick urineExtremities: no cyanosis or clubbing, no edemaNeuro: Alert and orientedPsych: Normal affectImagingCT 09/07 OSH- 18mm and 14mm in R renal pelvis Normal [facility] Basic Metabolic Panlon 10-13 Anion gap 12 mmol/L Normal 9-18 [facility] Comment on above: Performed By: #### I CA, CBCDIF, VITD, PTHI, CMP, URIC ####[place] [address] [address] [phone] Calcium 8.2 mg/dL Low 8.5-10.2 [facility] Comment on above: Performed By: #### I CA, CBCDIF, VITD, PTHI, CMP, URIC ####[place] [address] [address] [place] [phone] Chloride 103 mmol/L Normal 97-105 [facility] Comment on above: Performed By: #### I CA, CBCDIF, VITD, PTHI, CMP, URIC ####[place] [address] [address] [place] [phone] CO2 25 mmol/L Normal 22-30 [facility] Comment on above: Performed By: #### I CA, CBCDIF, VITD, PTHI, CMP, URIC ####[place] [address] [place] [phone] Creatinine 0.90 mg/dL Normal 0.73-1.22 [facility] Comment on above: Performed By: #### I CA, CBCDIF, VITD, PTHI, CMP, URIC ####[place] [address] [address] AveCRober[address] [place] [phone] eGFR (non-black) mL/min/{1.73_m2} Normal [facility] Comment on above: Performed By: #### I CA, CBCDIF, VITD, PTHI, CMP, URIC ####[facility] [place], [place] [phone] Result Comment: eGFR (Estimated GFR) Units of measure: mL/min/1.73 meters squaredeGFR is derived from the reexpressed MDRD Study equation using the following parameters: serum creatinine, age, gender and race. The creatinine assay has been calibrated to be traceable to IDMS.An eGFR <60 mL/min/1.73m2 for >3 months is consistent with chronic kidney disease. Refer to KDOQI guidelines for clinical interpretation.In patients with unstable renal function, e.g. those with acute kidney injury, the eGFR may not accurately reflect actual GFR. Glucose mass conc 95 mg/dL Normal 74-99 [facility] Comment on above: Result Comment: The [place] [employer] (ADA) provides guidance for cutoff values for fasting glucose and random glucose. The ADA defines fasting as no caloric intake for at least 8 hours. Fasting plasma glucose results between 100 to 125 mg/dL indicate increased risk for diabetes (prediabetes).Fasting plasma glucose results greater than or equal to 126 mg/dL meet the criteria for diagnosis of diabetes. In the absence of unequivocal hyperglycemia, results should be confirmed by repeat testing. In a patient with classic symptoms of hyperglycemia or hyperglycemic crisis, random plasma glucose results greater than or equal to 200 mg/dL meet the criteria for diagnosis of diabetes.Reference: Standards of Medical Care in Diabetes 2016, [place] [employer]. Diabetes Care. 2016.39(Suppl 1). Performed By: #### I CA, CBCDIF, VITD, PTHI, CMP, URIC ####[place] [id number] [place], [place] [phone] Potassium molar conc 3.9 mmol/L Normal 3.7-5.1 [facility] Comment on above: Performed By: #### I CA, CBCDIF, VITD, PTHI, CMP, URIC ####[place] [id number] [place], [place] [phone] Sodium 140 mmol/L Normal 136-144 [facility] Comment on above: Performed By: #### I CA, CBCDIF, VITD, PTHI, CMP, URIC ####[address]CJill [place] [phone] Urea nitrogen 7 mg/dL Low 9-24 [facility] Comment on above: Performed By: #### I CA, CBCDIF, VITD, PTHI, CMP, URIC ####[place] [address] [address] [place] [phone] CBC and Differentialon 10-13 Abs Baso 0.03 k/uL Normal <0.11 [facility] Comment on above: Performed By: #### I CA, CBCDIF, VITD, PTHI, CMP, URIC ####[place] [address] [address] [place] [phone] Abs [place] 1.28 k/uL High <0.87 [facility] Comment on above: Performed By: #### I CA, CBCDIF, VITD, PTHI, CMP, URIC ####[place] [address] [address] [place] [phone] Abs Neut 8.97 k/uL High 1.45-7.50 [facility] Comment on above: Performed By: #### I CA, CBCDIF, VITD, PTHI, CMP, URIC ####[place] [address] [place] [phone] Basophils/100 WBC Auto (Bld) 0.2 % Normal [facility] Comment on above: Performed By: #### I CA, CBCDIF, VITD, PTHI, CMP, URIC ####[place] [address] [address] [place] [phone] DTYPE Auto Diff Normal [facility] Comment on above: Performed By: #### I CA, CBCDIF, VITD, PTHI, CMP, URIC ####[place] [address] [address] [place] [phone] Eosinophils 0.20 10*3/uL Normal <0.46 [facility] Comment on above: Performed By: #### I CA, CBCDIF, VITD, PTHI, CMP, URIC ####[place] [phone] AveClevelKayla [place] [phone] Eosinophils/100 leukocytes 1.6 % Normal [facility] Comment on above: Performed By: #### I CA, CBCDIF, VITD, PTHI, CMP, URIC ####[place] [address] [address] [place] [phone] Erythrocyte distribution width Auto Ratio (RBC) 12.4 % Normal 11.5-15.0 [facility] Comment on above: Performed By: #### I CA, CBCDIF, VITD, PTHI, CMP, URIC ####[place] [address] [address] [place] [phone] Erythrocytes (RBC) 4.29 10*6/uL Normal 4.20-6.00 [facility] Comment on above: Performed By: #### I CA, CBCDIF, VITD, PTHI, CMP, URIC ####[place] [address] [address] [place] [phone] Erythrocytes (RBC) 0.0 /100 WBC Normal 0 [facility] Comment on above: Performed By: #### I CA, CBCDIF, VITD, PTHI, CMP, URIC ####[place] [address] [address] [place] [phone] Erythrocytes (RBC) 10*6/uL Normal <0.01 [facility] Comment on above: Performed By: #### I CA, CBCDIF, VITD, PTHI, CMP, URIC ####[place] [address] [address] [place] [phone] Hematocrit (HCT) 38.8 % Low 39.0-51.0 [facility] Comment on above: Performed By: #### I CA, CBCDIF, VITD, PTHI, CMP, URIC ####[place] [address] [place] [phone] Hemoglobin mass conc (Bld) 12.7 g/dL Low 13.0-17.0 [facility] Comment on above: Performed By: #### I CA, CBCDIF, VITD, PTHI, CMP, URIC ####[place] [address] [place] [phone] Lymphocytes 2.16 10*3/uL Normal 1.00-4.00 [facility] Comment on above: Performed By: #### I CA, CBCDIF, VITD, PTHI, CMP, URIC ####[place] [address] [address]CCarl[address] [place] [phone] Lymphocytes/100 leukocytes 17.1 % Normal [facility] Comment on above: Performed By: #### I CA, CBCDIF, VITD, PTHI, CMP, URIC ####[place] [address] [place] [phone] MCH 29.6 pG Normal 26.0-34.0 [facility] Comment on above: Performed By: #### I CA, CBCDIF, VITD, PTHI, CMP, URIC ####[place] [address] [place] [phone] MCHC mass conc (RBC) 32.7 g/dL Normal 30.5-36.0 [facility] Comment on above: Performed By: #### I CA, CBCDIF, VITD, PTHI, CMP, URIC ####[place] [address] [phone] MCV 90.4 fL Normal 80.0-100.0 [facility] Comment on above: Performed By: #### I CA, CBCDIF, VITD, PTHI, CMP, URIC ####[place] [address] [place] [phone] Monocytes/100 leukocytes 10.1 % Normal [facility] Comment on above: Performed By: #### I CA, CBCDIF, VITD, PTHI, CMP, URIC ####[address] [phone] Neutrophils/100 WBC Auto (Bld) 71.0 % Normal [facility] Comment on above: Performed By: #### I CA, CBCDIF, VITD, PTHI, CMP, URIC ####[address] [phone] Platelet mean volume (PMV) 11.3 fL Normal 9.0-12.7 [facility] Comment on above: Performed By: #### I CA, CBCDIF, VITD, PTHI, CMP, URIC ####[address] [phone] Platelets 138 10*3/uL Low 150-400 [facility] Comment on above: Result Comment: Resu lt checked and verifiedNo clot detected. Performed By: #### I CA, CBCDIF, VITD, PTHI, CMP, URIC ####[address] [phone] WBC (Leukocytes) 12.64 10*3/uL High 3.70-11.00 [facility] Comment on above: Performed By: #### I CA, CBCDIF, VITD, PTHI, CMP, URIC ####[address] [phone] CNDSon 10-13-2017 CNDS HNO ID: [id number] thor: Feliciano KumarbleService: UrologyAuthor Type: PhysicianType: Discharge SummariesFiled: 10/15/2017 3:53 PMNote Text:The [address] [phone] or ([phone]) [facility] O N F I D E N T I A L I N F O R M A T I O N STANDARD [facility] DOCUMENTDISCHARGE SUMMARYPatient Name: Darrell Silverio Date: 10/11/2017Discharge Date: 10/13/2017Attending Physician: Feliciano Mc Diagnosis:Patient Active Hospital Problem List: Calculus of kidney (09/12/2017)Operations During Hospitalization:1. Cystoscopy2. Removal of R JJ ureteral stent3. R ureteroscopy4. Right percutaneous renal access5. Dilation of percutaneous renal access tract6. Right percutaneous nephrolithotomy (>3cm)7. Basketing of stones8. Placement of R ureteral JJ stent9. Interpretation of Fluoroscopic imaging (>1hr)Procedures Performed While Hospitalized:CXRReason for Hospitalization: 67 year old male with history ofnephrolithiasis with obstructive uropathy s/p right ureteral stentplacement at an outside hospital who presented for operative management.Hospital Course: The patient underwent the above procedure(s) (please seeseparately dictated operative report for full details of the procedure).Pt tolerated the procedure well and post-operatively was transferred toPACU and ultimately to a regular nursing unit. Chest X-ray in PACU waswithout acute abnormality. Pain was initially controlled with PO and IVanalgesia. Patient was started on a clear liquid diet and home medicationswere restarted. Diet was advanced as tolerated. On post-operative day(POD) 1, pt's urine remained red and hemoglobin decreased, so he was keptan additional night for observation. BY POD2, pt was afebrile forentirety of hospitalization, ambulating without difficulty, tolerating aregular diet, passing flatus, and pain was adequately controlled with POmedication. Pt was discharged home with instructions to return for followup in clinic.-Christian catheter was removed on POD#2 and the patient was able to voidwithout issue.Patient Condition at Discharge: ImprovedLabs and Procedures Pending at Discharge: Stone analysisConsulting Teams During Hospitalization: noneDischarge Disposition:HomeInformation Provided to the Patient:Patient was given a copy of Discharge InstructionsDischarge Medications: Discharge Medication List as of 10/13/2017 10:41 AMSTART taking these medicationsoxyCODONE IR (ROXICODONE) 5 mg immediate release tabletTake 1 tablet by mouth every 6 hours as needed (Breakthrough pain notcontrolled by tylenol) for up to 5 days.Earliest Fill Date: 10/11/17Print RX, Disp-20 tablet, R-0Dx: 1. Calculus of kidneydocusate sodium (COLACE) 100 mg capsuleTake 1 capsule by mouth twice daily. As long as taking opioids/narcotics.Stop taking if loose bowel movements or diarrhea.Print RX, Disp-40 capsule, R-0acetaminophen (TYLENOL EXTRA STRENGTH) 500 mg tabletTake 2 tablets by mouth every 6 hours for 3 days. Take 1000mg Tylenol ([id number] tablets) every 6 hours for 3 days. After 3 days, take 1000mg tylenolevery 6 hours as needed for pain.DO NOT TAKE MORE THAN 4000mg Tylenol in one day.Print RX, Disp-24 ta blet, R-0CONTINUE these medications which have NOT CHANGEDpotassium citrate ER (UROCIT-K) 10 mEq (1,080 mg) TbER10 mEq.Historical Med, R-0tamsulosin ER (FLOMAX) 0.4 mg cp240.4 mg.Historical Med, R-0losartan (COZAAR) 25 mg tabletTake 25 mg by mouth once daily.Historical Med, R-0multivitamin tabletTake 1 tablet by mouth once daily.Historical MedFuture Appointments:Please follow-up as recommended by your provider.Plan for patient to follow up with local urologist for stent removal andto discuss stone prevention plan.Electronically SIGNED by Licensed Independent Practitioner: Carlos Eduardo Dorantes MDDirector, Surgical Stone Disease, [facility] Urologic InstituteProfessor of Surgery, [facility]ita Health SystemPager [phone] [facility] PLAN OF CAREon 10-13-2017 PLAN OF CARE HNO ID: [id number] thor: Angelique Serrano (Mult Au Matic Operator)Service: (none)Author Type: (none)Type: Plan of CareFiled: 10/13/2017 8:44 AMNote Text:DEVELOPING MACHINE OPERATOR BEDSIDE DELIVERY SURVEY1. Patient to use [facility] Bedside Delivery - NO prefer ownpharm[facility]2. If fax, patient would like us to fax prescriptions to [facility] a. Pharmacy: b. Location: c. Phone:3. Insurance card on file - NO4. Credit card for payment - NO Normal [facility] PROGRESSon 10-13-2017 PROGRESS HNO ID: [id number] thor: Shelly ([facility]) O'NeillService: UrologyAuthor Type: Nurse PractitionerType: Progress NotesFiled: 10/13/2017 11:00 AMNote Text:UROLOGY SERVICE PROGRESS NOTEName: Darrell mCdBed: G090 [id number]/[id number]: [id number]: October 13, 2017ASSESSMENT AND PLANMarjuan Emmanuelle Nelson is a 67 year old male with history of HTN, nephrolithiasisnow POD#2 s/p PCNL and R JJ stent placement.#Neuro-Pain controlled on Tylenol#CV/Jxig-SSB-Fgw stable-Continue incentive spirometer use#GI-Diet - GI Soft/regular diet; tolerating without N/V#-Scr 0.90-UOP good-Christian: removed- voiding without difficulty#FEN-IVF NS @ 125 ml/hr#Activity - OOB to chair and Ambulate with assistance#DVT prophylaxis - SCDs, Pharmacologic DVT prophylaxis contraindicated dueto bleeding risk#Antibiotics - Perioperative antibiotics - Ancef#Secondary Dx and ComplicationsHTN- c/w home medications; [facility] Urocit HELD#Discharge teaching - routine teaching#Disposition - Discharge home todaySUBJECTIVE-Pain:controlled -CP/SOB: Denies-N/V:Denies-Bowel function:+Flatus. No BM-Ambulating: YesBrief HPI: No acute events throughout the night. Denies fever, chills.Voiding without difficulty. Doing well. Eager for discharge home.OBJECTIVEVital SignsBP 154/79 Pulse 89 Temp 36.9 ?C (98.4 ?F) (Oral) Resp 20 Ht 175.3cm (5' 9 ) Wt 80 kg (176 lb 5.9 oz) SpO2 96% BMI 26.05 kg/z9Nwygs and OutputIntake/Output Summary (Last 24 hours) at 10/13/17 1047Last data filed at 10/13/17 1040 Gross per 24 hourIntake 3782 mlOutput 3250 mlNet 532 mlDrains:noneUrine: 3450ccPhysical ExamGeneral: Well appearing male, lying in bed in NADHEENT: Normocephalic, atraumaticCV:: RR, hemodynamically stable, well-perfusedResp: breathing comfortably on RA. CTAB.GI: Soft, non-tender, non-distended.: voiding spontaneouslyExtremities: No cyanosis or clubbing, No edemaNeuro: Alert and orientedPsych: Normal affectRecent Labs 10/12/1801WBC 12.64* 14.41* 16.46*HB 12.7* 11.9* 13.7HCT 38.8* 35.9* 39.7PLT 138* 124* 147*NA 140 142 --K 3.9 4.0 --CHLOR 103 103 --CO2 25 31* --BUN 7* 9 --CREAT 0.90 1.00 --GLUC 95 100* --Current hospital medications:[MAR Hold due to Transfer] 0.9% NaCl 2-10 mL 2-10 mL INTRAVENOUS q 12 H[MAR Hold due to Transfer] lactated ringers infusion 75 mL/hr INTRAVENOUSCONTINUOUSlosartan 25 mg tab(s) (COZAAR) 25 mg ORAL DAILYtamsulosin ER 0.4 mg cap(s) (FLOMAX) 0.4 mg ORAL AT BEDTIMENaCl 0.9% iv infusion 125 mL/hr INTRAVENOUS CONTINUOUSacetaminophen 1,000 mg tab(s) (TYLENOL) 1,000 mg ORAL q 6 HfentaNYL 50 mcg/mL 25-50 mcg injection (SUBLIMAZE) 25-50 mcg INTRAVENOUS q2 H PRNondansetron (PF) 4 mg injection (ZOFRAN) 4 mg INTRAVENOUS q 6 H PRNdocusate sodium 100 mg cap(s) (COLACE) 100 mg ORAL BIDzolpidem 5 mg tab(s) (AMBIEN) 5 mg ORAL HS PRNaluminum-magnesium hydroxide-simethicone 200-200-20 mg/5 mL 30 mL(MAALOX,MYLANTA,MAG-AL PLUS) 30 mL ORAL q 6 H PRNphenol 1 [place] (CHLORASEPTIC) 1 [place] MUCOUS MEMBRANE (TOPICAL MOUTH ANDTHROAT) q 2 H PRNsimethicone, chewable 80 mg tab(s) (MYLICON) 80 mg ORAL q 8 H PRNoxybutynin 5 mg tab(s) (DITROPAN) 5 mg ORAL q 8 H PRNoxyCODONE IR 5-10 mg tab(s) (ROXICODONE) 5-10 mg ORAL q 4 H PRNNo past medical history on file.ImagingCXR 10/11/17IMPRESSION:NO ACUTE DISEASESIGNATURE: Shelly Cote CNP PAGER: [phone]: October 13, 2017TIME: 9:45amPlease page [phone] on weekends and after 4pm on weekdays Normal [facility] PROGRESS HNO ID: [id number] thor: Miguel (Res) BrykService: UrologyAuthor Type: ResidentType: Progress NotesFiled: 10/13/2017 6:47 AMNote Text:UROLOGY RESIDENT PROGRESS NOTEName: Darrell CmdBed: G090 013/[id number]: [id number]: October 13, 2017 =====SUBJECTIVE- no acute events overnight-Pain: controlled-N/V : No- Tolerated diet, ambulating, +ROBF ======OBJECTIVEVital SignsPatient Vitals for the past 8 hrs: BP Temp Temp src Pulse Resp [id number]/13/17 0300 144/71 36.7 ?C (98 ?F) Oral 73 18 95 %10/13/17 0005 165/92 36.6 ?C (97.9 ?F) Oral 91 18 94 %Input and OutputIntake/Output Summary (Last 24 hours) at 10/13/17 0646Last data filed at 10/13/17 0600 Gross per 24 hourIntake 3712 mlOutput 3450 mlNet 262 mlUrine: 3450Physical ExamGeneral: WDWN in NADHEENT: Normocephalic, atraumatic, nonicteric sclera, conjugate gazeCV: Reg rate, warm, well-perfused, Hemodynamically stableResp: breathing comfortably on RAGI: Soft, nontender, nondistended. No rebound or guarding.: Christian catheter present; urine light pink/yellow. No CVATWound: Incision clean, dry and intact;Neuro: Alert and orientedPsych: Normal affectLabCBC, Coags, BMP, Mg, PhosRecent Labs 10/12/1801WBC 12.64* 14.41* 16.46*HB 12.7* 11.9* 13.7HCT 38.8* 35.9* 39.7PLT 138* 124* 147*INR -- 1.0 --APTT -- 27.4 --NA 140 142 --K 3.9 4.0 --CHLOR 103 103 --CO2 25 31* --BUN 7* 9 --CREAT 0.90 1.00 --GLUC 95 100* --CA 8.2* 8.2* --MG -- 1.7 --ImagingCXR 110- The heart size is normal. ?There is no focal pulmonaryconsolidation. ?Nopleural effusion or pneumothorax. ?Partially seen hardware from lowercervical fusion.Current hospital medications:[MAR Hold due to Transfer] 0.9% NaCl 2-10 mL 2-10 mL INTRAVENOUS q 12 H[MAR Hold due to Transfer] lactated ringers infusion 75 mL/hr INTRAVENOUSCONTINUOUSlosartan 25 mg tab(s) (COZAAR) 25 mg ORAL DAILYtamsulosin ER 0.4 mg cap(s) (FLOMAX) 0.4 mg ORAL AT BEDTIMENaCl 0.9% iv infusion 125 mL/hr INTRAVENOUS CONTINUOUSacetaminophen 1,000 mg tab(s) (TYLENOL) 1,000 mg ORAL q 6 HfentaNYL 50 mcg/mL 25-50 mcg injection (SUBLIMAZE) 25-50 mcg INTRAVENOUS q2 H PRNondansetron (PF) 4 mg injection (ZOFRAN) 4 mg INTRAVENOUS q 6 H PRNdocusate sodium 100 mg cap(s) (COLACE) 100 mg ORAL BIDzolpidem 5 mg tab(s) (AMBIEN) 5 mg ORAL HS PRNaluminum-magnesium hydroxide-simethicone 200-200-20 mg/5 mL 30 mL(MAALOX,MYLANTA,MAG-AL PLUS) 30 mL ORAL q 6 H PRNphenol 1 [place] (CHLORASEPTIC) 1 [place] MUCOUS MEMBRANE (TOPICAL MOUTH ANDTHROAT) q 2 H PRNsimethicone, chewable 80 mg tab(s) (MYLICON) 80 mg ORAL q 8 H PRNoxybutynin 5 mg tab(s) (DITROPAN) 5 mg ORAL q 8 H PRNoxyCODONE IR 5-10 mg tab(s) (ROXICODONE) 5-10 mg ORAL q 4 H PRN =====ASSESSMENT AND Celia Emmanuelle Nelson is a 67 year old male with h/o nephrolithiasis w/obstructive uropathy s/p R ureteral stent placement now POD#2 s/pCystoscopy, Removal of R JJ ureteral stent, R ureteroscopy, Rightpercutaneous renal access, Dilation of percutaneous renal access tract,Right percutaneous nephrolithotomy (>3cm), Basketing of stones, Placementof R ureteral JJ stent, Interpretation of Fluoroscopic imaging (>1hr).#Neuro - Pain controlled on PO/IV analgesia#CV/Resp --Hgb: 12.7 (11.9 yesterday). Acute post-op blood loss anemia. Willcontinue to monitor.-Encourage IS#GI --Diet: Jess reg diet-Colace, Zofran# --Scr: 0.9, stable-UOP: excellent-Christian: in place, will remove and trial of void- Cont flomax#Activity - OOB to chair and Ambulate with assistance#DVT prophylaxis - SCDs, Pharmacologic DVT prophylaxis contraindicated dueto bleeding risk#Antibiotics - Perioperative antibiotics - ancef#ComplicationsNone#Seconda ry Dx-HTN- home losartanHome urocit-K held#Discharge teaching - may need home going christian care teaching#Disposition - d/c todayThe patient's progress, lab findings, vitals, and clinical decision makingas documented above to be discussed with staff Dr. Schroeder. ========Miguel Zapata M.D.Urology PGY-2Pager: [phone] [phone] AMOvernight and on weekends please page [phone] Normal [facility] APTTon 10-12-2017 aPTT 27.4 s Normal 23.0-32.4 [facility] Comment on above: Result Comment: Unfr actionated Heparin Therapeutic Ranges:Standard Heparin Nomogram: 53 to 78 seconds (anti-Xa level of 0.3 to 0.7 U/ml)Low Dose/ACS Nomogram: 49 to 67 seconds (anti-Xa level of 0.2 to 0.5 U/ml)Stroke Treatment Nomogram: 49 to 67 seconds (anti-Xa level of 0.2 to 0.5 U/ml)Note: The APTT therapeutic range has been determined for the current lot of laboratory APTT reagent in use throughout the [facility]. Performed By: #### P T, PTT, MG1 ####[facility] [place], [place] [phone] Basic Metabolic Panlon 10-12 Anion gap 8 mmol/L Low 9-18 [facility] Comment on above: Performed By: #### C BCDIF BMP ####[facility] [address] [place], [place] [phone] Calcium 8.2 mg/dL Low 8.5-10.2 [facility] Comment on above: Performed By: #### C BCDIF BMP ####[facility] [place], [place] [phone] Chloride 103 mmol/L Normal 97-105 [facility] Comment on above: Performed By: #### C BCDIF BMP ####[facility] [place], [place] [phone] CO2 31 mmol/L High 22-30 [facility] Comment on above: Performed By: #### C ROSEANNA, CHARLENE ####[facility] [place], [place] [phone] Creatinine 1.00 mg/dL Normal 0.73-1.22 [facility] Comment on above: Performed By: #### C KRISTINAF, BMP ####[facility] [place], [place] [phone] eGFR (non-black) mL/min/{1.73_m2} Normal [facility] Comment on above: Performed By: #### C ROSEANNA, BMP ####[facility] [place], [place] [phone] Result Comment: eGFR (Estimated GFR) Units of measure: mL/min/1.73 meters squaredeGFR is derived from the reexpressed MDRD Study equation using the following parameters: serum creatinine, age, gender and race. The creatinine assay has been calibrated to be traceable to IDMS.An eGFR <60 mL/min/1.73m2 for >3 months is consistent with chronic kidney disease. Refer to KDOQI guidelines for clinical interpretation.In patients with unstable renal function, e.g. those with acute kidney injury, the eGFR may not accurately reflect actual GFR. Glucose mass conc 100 mg/dL High 74-99 [facility] Comment on above: Result Comment: The [place] [employer] (ADA) provides guidance for cutoff values for fasting glucose and random glucose. The ADA defines fasting as no caloric intake for at least 8 hours. Fasting plasma glucose results between 100 to 125 mg/dL indicate increased risk for diabetes (prediabetes).Fasting plasma glucose results greater than or equal to 126 mg/dL meet the criteria for diagnosis of diabetes. In the absence of unequivocal hyperglycemia, results should be confirmed by repeat testing. In a patient with classic symptoms of hyperglycemia or hyperglycemic crisis, random plasma glucose results greater than or equal to 200 mg/dL meet the criteria for diagnosis of diabetes.Reference: Standards of Medical Care in Diabetes 2016, [place] [employer]. Diabetes Care. 2016.39(Suppl 1). Performed By: #### C BCDIF, BMP ####[facility] [address], [place] [phone] Potassium molar conc 4.0 mmol/L Normal 3.7-5.1 [facility] Comment on above: Performed By: #### C BCDIF, BMP ####[facility], [place] [phone] Sodium 142 mmol/L Normal 136-144 [facility] Comment on above: Performed By: #### C BCDIF, BMP ####[facility] [address], [place] [phone] Urea nitrogen 9 mg/dL Normal 9-24 [facility] Comment on above: Performed By: #### C BCDIF, BMP ####[facility] [address] [place], [place] [phone] CASE MGT INIT ASSESon 2017 CASE MGT INIT ASSJODIE HNO ID: [id number]: Brigette (Rn) Micha, RNService: Care ManagementAuthor Type: Registered NurseType: Care Mgt Initial AssessmentFiled: 10/12/2017 4:00 PMNote Text:CARE MANAGEMENT: ASSESSMENT AND DISCHARGE PLANSERVICE DATE: 10/12/2017SERVICE TIME: 3:57 PMPRIMARY CARE PHYSICIAN:ROOPA Martinezhone: [phone] STATUS: Ambulatory SurgeryPOTENTIAL DISCHARGE PLANSNo Services IndicatedPatient/Front Desk Clerk Stated Goals: return homeNeeds Prior to Discharge: NoneHealth Insurance: Medical Nu Mine ServicesLiving Arrangement: HomeLives With: SpouseFinancial Resources: RetiredPrimary Contact:Extended Emergency Contact InformationPrimary Emergency Contact: Ansley NelsonAddress: [address] [place] [address] [facility] Wohxtk Pawjxnqg: SpouseSupportive: YesOther Important Patient Contacts: NoneCAREGIVER ASSESSMENT:Caregiver is ready, willing and able to meet the patient's needs asrecommended by the inter-professional team? No Caregiver NeededPatient's transition needs and plan for meeting these needs: no skilled dcneedsDoes the patient have an acute stroke diagnosis, or has the patient had astroke during this admission? NoADVANCE DIRECTIVES:Does Patient Have Advance Directives? none on chartDoes Patient Have Concerns About Advance Directives? NoPRIOR TO ADMISSION:Baseline Mental Status: Alert AND Oriented, Person, Place , Time andSituationFunctional Status: IndependentDoes Patient Currently Receive Any Community Services or Home Care? NoneEquipment Prior to Admission: NoneHEALTH:Health Issues Impacting Discharge Plan: NoneHealth Literacy Issues: NoPSYCHOSOCIAL:Is the Patient Psychosocially Complex? NoFamily/Patient Understanding of Illness/Diagnosis: voiced understandingMedication Adherence:Do you forget to take your medications? I do not forget to take mymedicationHave you ever stopped taking medications because you felt worse? None ofthe timeHave you ever taken less of your medication than what was prescribed byyour doctor? None of the timeIn the past 3 months, have you had issues obtaining one or more of yourmedications? None of the timeAre you interested in bedside delivery of your medications? YesFood Concerns:In the Last Month, Have You had Trouble Getting Food? No trouble gettingfoodDuring the Last Month, Have You Worried Whether Your Food Would Run OutBefore You Had Enough Money to Buy More? NoPsychosocial Needs: NoneUTILIZATION:Last Admission Date: noneIs this Within the Past 30 days? NoHas the Patient Been in a Half-Way Facility in the Past 30 days? NoFREEDOM OF CHOICE EXPLAINED:N/RADHA COMMUNICATION:n/aAdm post op after pcnl. Spoke w/ pt at bedside. No skilled dc needsidentified, was independent prior to adm. Chief complaint is of his christian.Please contact day care home provider if needs arise prior to dc.SIGNATURE: Brigette Muse RN PATIENT NAME: Darrell CmdDATE: October 12, 2017 : 3:57 PM PAGER/CONTACT #: [phone] Normal [facility] CBC and Differentialon 10-12 Abs Baso 0.03 k/uL Normal <0.11 [facility] Comment on above: Performed By: #### C BCDIF, BMP ####[place] [address] [place] [phone] Abs [place] 1.45 k/uL High <0.87 [facility] Comment on above: Performed By: #### C BCDIF, BMP ####[place] [address] [place] [phone] Abs Neut 9.96 k/uL High 1.45-7.50 [facility] Comment on above: Performed By: #### C BCDIF, BMP ####[place] [address] [place] [phone] Basophils/100 WBC Auto (Bld) 0.2 % Normal [facility] Comment on above: Performed By: #### C BCDIF, BMP ####[place] [address] [place] [phone] DTYPE Auto Diff Normal [facility] Comment on above: Performed By: #### C BCMARIELA, BMP ####[place] [address] [place] [phone] Eosinophils 0.06 10*3/uL Normal <0.46 [facility] Comment on above: Performed By: #### C BCDIF, BMP ####[place] [address] [place] [phone] Eosinophils/100 leukocytes 0.4 % Normal [facility] Comment on above: Performed By: #### C BCDIF, BMP ####[place] [address] [place] [phone] Erythrocyte distribution width Auto Ratio (RBC) 12.6 % Normal 11.5-15.0 [facility] Comment on above: Performed By: #### C BCDIF, BMP ####[place] [address] [place] [phone] Erythrocytes (RBC) 0.0 /100 WBC Normal 0 [facility] Comment on above: Performed By: #### C BCDIF, BMP ####[place] [phone]ClevelCamp[address], [place] [phone] Erythrocytes (RBC) 3.97 10*6/uL Low 4.20-6.00 [facility] Comment on above: Performed By: #### C BCDIF, BMP ####[place] [address] [place] [phone] Erythrocytes (RBC) 10*6/uL Normal <0.01 [facility] Comment on above: Performed By: #### C BCDIF, BMP ####[place] [address] [place] [phone] Hematocrit (HCT) 35.9 % Low 39.0-51.0 [facility] Comment on above: Performed By: #### C BCDIF, BMP ####[place] [address] [place] [phone] Hemoglobin mass conc (Bld) 11.9 g/dL Low 13.0-17.0 [facility] Comment on above: Performed By: #### C BCDIF, BMP ####[place] [address] [place] [phone] Lymphocytes 2.91 10*3/uL Normal 1.00-4.00 [facility] Comment on above: Performed By: #### C BCDIF, BMP ####[facility]ClevelKayla [place] [phone] Lymphocytes/100 leukocytes 20.2 % Normal [facility] Comment on above: Performed By: #### C BCDIF, BMP ####[place] [address] [place] [phone] MCH 30.0 pG Normal 26.0-34.0 [facility] Comment on above: Performed By: #### C BCDIF, BMP ####[place] [address] [place], [place] [phone] MCHC mass conc (RBC) 33.1 g/dL Normal 30.5-36.0 [facility] Comment on above: Performed By: #### C BCDIF, BMP ####[place] [address] [place] [phone] MCV 90.4 fL Normal 80.0-100.0 [facility] Comment on above: Performed By: #### C BCDIF, BMP ####[place] [address] [place] [phone] Monocytes/100 leukocytes 10.1 % Normal [facility] Comment on above: Performed By: #### C BCDIF, BMP ####[place] [phone] Neutrophils/100 WBC Auto (Bld) 69.1 % Normal [facility] Comment on above: Performed By: #### C BCDIF, BMP ####[place] [phone] Platelet mean volume (PMV) 11.2 fL Normal 9.0-12.7 [facility] Comment on above: Performed By: #### C BCDIF, BMP ####[place] [address] [place] [phone] Platelets 124 10*3/uL Low 150-400 [facility] Comment on above: Result Comment: Resu lt checked and verifiedNo clot detected. Performed By: #### C BCDIF, BMP ####[place] [address] [place], [place] [phone] WBC (Leukocytes) 14.41 10*3/uL High 3.70-11.00 [facility] Comment on above: Performed By: #### C BCDIF, BMP ####[place] [address] [place], [place] [phone] Magnesiumon 10-12-2017 Magnesium 1.7 mg/dL Normal 1.7-2.3 [facility] Comment on above: Performed By: #### P T, PTT, MG1 ####[facility] [address] [place], [place] [phone] PROGRESSon 10-12-2017 PROGRESS HNO ID: [id number] thor: Feliciano Santanaervice: (none)Author Type: PhysicianType: Progress NotesFiled: 10/12/2017 1:40 PMNote Text:STAFF UROLOGY NOTE:Patient's Hb dropped nearly 2 grams post-op and his urine was too bloodythis morning for voiding trial or discharge. Will plan to keep in houseanother day.Feliciano Schroeder, MDDirector, Surgical Stone Disease, [facility]ic InstituteProfessor of Surgery, [facility] Health SystemPager [phone]/12/2017 Normal [facility] Replaced by [facility] PROGRESS HNO ID: [id number] thor: Shelly ([facility]) O'NeillService: UrologyAuthor Type: Nurse PractitionerType: Progress NotesFiled: 10/12/2017 1:31 PMNote Text:UROLOGY SERVICE PROGRESS NOTEName: Darrell CmdBed: G090 013/X221-44CDV: [id number]: October 12, 2017ASSESSMENT AND PLANDarrell Emmanuelle Nelson is a 67 year old male with history of HTN, nephrolithiasisnow POD#1 s/p PCNL and R JJ stent placement.#Neuro-Pain controlled on Tylenol#CV/Arjm-DRT-Uhd stable#GI-Diet - GI Soft/regular diet; tolerating without N/V+Flatus. 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 No BM.-Ambulating: yesBrief HPI: No acute events throughout the night. Denies fever, chills.Tolerating diet without nausea or vomiting. In good spirits. 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 red urineExtremities: No cyanosis or clubbing, No edemaNeuro: Alert and orientedPsych: Normal affectRecent Labs 650WBC 14.41* 16.46*HB 11.9* 13.7HCT 35.9* 39.7PLT 124* 147*NA 142 --K 4.0 --CHLOR 103 --CO2 31* --BUN 9 --CREAT 1.00 --GLUC 100* --Current hospital medications:[MAR Hold due to Transfer] 0.9% NaCl 2-10 mL 2-10 mL INTRAVENOUS q 12 H[MAR Hold due to Transfer] lactated ringers infusion 75 mL/hr INTRAVENOUSCONTINUOUSlosartan 25 mg tab(s) (COZAAR) 25 mg ORAL DAILYtamsulosin ER 0.4 mg cap(s) (FLOMAX) 0.4 mg ORAL AT BEDTIMENaCl 0.9% iv infusion 125 mL/hr INTRAVENOUS CONTINUOUSacetaminophen 1,000 mg tab(s) (TYLENOL) 1,000 mg ORAL q 6 HfentaNYL 50 mcg/mL 25-50 mcg injection (SUBLIMAZE) 25-50 mcg INTRAVENOUS q2 H PRNondansetron (PF) 4 mg injection (ZOFRAN) 4 mg INTRAVENOUS q 6 H PRNdocusate sodium 100 mg cap(s) (COLACE) 100 mg ORAL BIDzolpidem 5 mg tab(s) (AMBIEN) 5 mg ORAL HS PRNaluminum-magnesium hydroxide-simethicone 200-200-20 mg/5 mL 30 mL(MAALOX,MYLANTA,MAG-AL PLUS) 30 mL ORAL q 6 H PRNphenol 1 [place] (CHLORASEPTIC) 1 [place] MUCOUS MEMBRANE (TOPICAL MOUTH ANDTHROAT) q 2 H PRNsimethicone, chewable 80 mg tab(s) (MYLICON) 80 mg ORAL q 8 H PRNoxybutynin 5 mg tab(s) (DITROPAN) 5 mg ORAL q 8 H PRNoxyCODONE IR 5-10 mg tab(s) (ROXICODONE) 5-10 mg ORAL q 4 H PRNNo past medical history on file.ImagingXR 10/11/17IMPRESSION:NO ACUTE DISEASESIGNATURE: Shelly Cote CNP PAGER: [phone]: October 12, 2017TIME: 11:15amPlease page [phone] on weekends and after 4pm on weekdays Normal [facility] PROGRESS HNO ID: [id number] thor: Miguel (Res) BrykService: UrologyAuthor Type: ResidentType: Progress NotesFiled: 10/12/2017 6:47 AMNote Text:UROLOGY RESIDENT PROGRESS NOTEName: Darrell CmdBed: G090 013/E341-89HPN: [id number]: October 12, 2017 =====SUBJECTIVE- no acute events overnight-Pain: controlled-N/V : No- Tolerated clears, eager for food =====OBJECTIVEVital SignsPatient Vitals for the past 8 hrs: BP Temp Temp src Pulse Resp SpO2 Height Cfinje56/10/18 1922 148/81 36.7 ?C (98.1 ?F) Oral 90 16 99 % 175.3 cm (5' 9 ) 80kg (176 lb 5.9 oz)10/11/17 1830 151/79 - - 90 16 100 % - -10/11/17 1800 141/71 36.9 ?C (98.4 ?F) Temporal Art 90 15 99 % - -10/11/17 1730 138/69 - - 90 17 98 % - -10/11/17 1700 162/78 - - 86 20 100 % - -10/11/17 1645 165/77 - - 92 20 100 % - -10/11/17 1630 171/76 - - 86 20 100 % - -10/11/17 1615 173/81 - - 88 20 100 % - -10/11/17 1600 164/83 - - 93 24 100 % - -10/11/17 1545 188/84 36.3 ?C (97.3 ?F) Temporal Art 92 16 100 % - -Input and OutputIntake/Output Summary (Last 24 hours) at 10/11/17 2159Last data filed at 10/11/17 1824 Gross per 24 hourIntake 2000 mlOutput 825 mlNet 1175 mlUrine: 1625 (550cc overnight)Physical ExamGeneral: WDWN in NADHEENT: Normocephalic, atraumatic, nonicteric sclera, conjugate gazeCV: Reg rate, warm, well-perfused, Hemodynamically stableResp: breathing comfortably on NCGI: Soft, nontender, nondistended. No rebound or guarding.: Christian catheter present; urine red. No CVATWound: Dressing dry and intact;Neuro: Alert and orientedPsych: Normal affectLab CBC, Coags, BMP, Mg, PhosRecent Labs 650WBC 14.41* 16.46*HB 11.9* 13.7HCT 35.9* 39.7PLT 124* 147*INR 1.0 --APTT 27.4 --NA 142 --K 4.0 --CHLOR 103 --CO2 31* --BUN 9 --CREAT 1.00 --GLUC 100* --CA 8.2* --MG 1.7 --ImagingCXR 10/11- The heart size is normal. ?There is no focal pulmonaryconsolidation. ?Nopleural effusion or pneumothorax. ?Partially seen hardware from lowercervical fusion.Current hospital medications:[MAR Hold due to Transfer] 0.9% NaCl 2-10 mL 2-10 mL INTRAVENOUS q 12 H[MAR Hold due to Transfer] lactated ringers infusion 75 mL/hr INTRAVENOUSCONTINUOUSlosartan 25 mg tab(s) (COZAAR) 25 mg ORAL DAILYtamsulosin ER 0.4 mg cap(s) (FLOMAX) 0.4 mg ORAL AT BEDTIMENaCl 0.9% iv infusion 125 mL/hr INTRAVENOUS CONTINUOUSacetaminophen 1,000 mg tab(s) (TYLENOL) 1,000 mg ORAL q 6 HfentaNYL 50 mcg/mL 25-50 mcg injection (SUBLIMAZE) 25-50 mcg INTRAVENOUS q2 H PRNondansetron (PF) 4 mg injection (ZOFRAN) 4 mg INTRAVENOUS q 6 H PRNceFAZolin 2 g in dextrose (iso-osmotic) 100 mL (ANCEF, KEFZOL) 2 gINTRAVENOUS q 8 Hdocusate sodium 100 mg cap(s) (COLACE) 100 mg ORAL BIDzolpidem 5 mg tab(s) (AMBIEN) 5 mg ORAL HS PRNaluminum-magnesium hydroxide-simethicone 200-200-20 mg/5 mL 30 mL(MAALOX,MYLANTA,MAG-AL PLUS) 30 mL ORAL q 6 H PRNphenol 1 [place] (CHLORASEPTIC) 1 [place] MUCOUS MEMBRANE (TOPICAL MOUTH ANDTHROAT) q 2 H PRNsimethicone, chewable 80 mg tab(s) (MYLICON) 80 mg ORAL q 8 H PRNoxybutynin 5 mg tab(s) (DITROPAN) 5 mg ORAL q 8 H PRNoxyCODONE IR 5-10 mg tab(s) (ROXICODONE) 5-10 mg ORAL q 4 H PRN =====ASSESSMENT AND PLANDarrell Emmanuelle Nelson is a 67 year old male with h/o nephrolithiasis w/obstructive uropathy s/p R ureteral stent placement now POD#1 s/pCystoscopy, Removal of R JJ ureteral stent, R ureteroscopy, Rightpercutaneous renal access, Dilation of percutaneous renal access tract,Right percutaneous nephrolithotomy (>3cm), Basketing of stones, Placementof R ureteral JJ stent, Interpretation of Fluoroscopic imaging (>1hr).#Neuro - Pain controlled on PO/IV analgesia#CV/Resp --Hgb: 11.9 (13.7 post-op). Acute post-op blood loss anemia. Will continueto monitor.-Encourage IS#GI --Diet: Clear liquid diet, tolerating. Reg diet this AM-Colace, Zofran# --Scr: 1, stable-UOP: adequate-Christian: in place- Cont flomax#Activity - OOB to chair and Ambulate with assistance#DVT prophylaxis - SCDs, Pharmacologic DVT prophylaxis contraindicated dueto bleeding risk#Antibiotics - Perioperative antibiotics - ancef#ComplicationsNone#Seconda ry Dx-HTN- home losartanHome urocit-K held#Discharge teaching - may need home going christian care teaching#Disposition - pending course, anticipate tomorrowThe patient's progress, lab findings, vitals, and clinical decision makingas documented above to be discussed with staff Dr. Schroeder. ========Miguel Zapata M.D.Urology PGY-2Pager: [phone] 2017Overnight and on weekends please page [phone] Normal [facility] Protimeon 10-12-2017 INR Coag RelTime (Bld) 1.0 {INR} Normal 0.9-1.3 [facility] Comment on above: Result Comment: Laisha min K Antagonist (VKA) Therapeutic Range: INR 2 to 3 (Target INR of 2.5)Note: For patients treated with VKA drugs, such as warfarin, the [place] [employer] 2012 Guideline recommends a therapeutic INR range of 2 to 3 (target INR of 2.5). This recommendation includes high-risk patients with antiphospholipid syndrome with previous arterial or venous thromboembolism, current-generation mechanical or bioprosthetic aortic heart valve replacement.Note: Patients with mechanical aortic valve replacement and additional risk factors for thromboembolic events (atrial fibrillation, previous thromboembolism, LV dysfunction, hypercoagulable conditions) or an older generation mechanical AVR (i.e., ball in-Cage) or any mechanical MVR should have a INR therapeutic range of 2.5 to 3.5 (target INR of 3).Tammy GH, et al. Chest 2012, 141:7S-47SNishimura RA, et al. [facility] 2017, 70: 252-289 Performed By: #### P T, PTT, MG1 ####[facility] [place], [place] [phone] PT Sec 10.8 sec Normal 9.7-13.0 [facility] Comment on above: Performed By: #### P T, PTT, MG1 ####[facility] [place], [place] [phone] ANES Woody 10-11-2017 ANES POST HNO ID: [id number] thor: Teresita RosadoSer: AnesthesiologyAuthor Type: PhysicianType: Anesthesia PostOpFiled: 10/11/2017 4:08 PMNote Text:POST ANESTHESIA EVALUATION NOTESERVICE DATE: 10/11/2017SERVICE TIME: 4:07 PMDOB: 1950Vitals: 10/11/1814Temp: 37.1 ?C (98.8 ?F) 36.3 ?C (97.3 ?F) 10/11/18145BP: 149/82 188/84 10/11/1814Pulse: 101 92 10/11/1814Resp: 16 16 10/11/1814SpO2: 95% 100%Validated Vital Signs: YesPOST ANES STATUS: No apparent anesthetic complications. The patient isappropriately hydrated with stable respiratory and cardiovascular status.Patient has safe and adequate airway control. The patient has appropriatepain relief and no significant post operative nausea or vomiting. Thepatient has achieved baseline mental status. Patient given meperidine 12.5mg for shivering and BP improved to 164/63 mm Hg.Further assessment by Anesthesia Service: NoneOther Remarks:SIGNATURE: Teresita Rosado MD PATIENT NAME: Darrell CmdDATE: October 11, 2017 : 4:07 PM PAGER/CONTACT #: [phone] [facility] BRIEF OP NOTon 10-11-2017 BRIEF OP NOT HNO ID: [id number] thor: Miguel Gillespieervice: UrologyAuthor Type: ResidentType: Brief Op NoteFiled: 10/11/2017 3:17 PMNote Text:UROLOGY BRIEF OPERATIVE NOTELOG ID: [id number]/Procedure Date: 10/11/2017Incision/Procedure Start Time: 1:38 PMIncision Close/Procedure End Time: 1513Patient Info: 67 year old malePreop Diagnosis: Pre-Op Diagnosis Codes: * Calculus of kidney [N20.0]Postop Diagnosis: Post-Op Diagnosis Codes: * Calculus of kidney [N20.0]Procedure:1. Cystoscopy2. Removal of R JJ ureteral stent3. R ureteroscopy4. Right percutaneous renal access5. Dilation of percutaneous renal access tract6. Right percutaneous nephrolithotomy (>3cm)7. Basketing of stones8. Placement of R ureteral JJ stent9. Interpretation of Fluoroscopic imaging (>1hr) PERCUTANEOUS NEPHROLITHOTOMYStone Laterality: RightStone Location: Lower pole and PelvicStone Size: >3cmExtraction Tool: Sacred-HaloAccess: UrologyAccess Location: LowerAccess Ribs: 11-12Needle Size: 18Tract Size: 30 FrenchTract Dilation Device: BalloonSurgeon(s)/Proceduralist (s) and Taker Out(s):Surgeon(s) and Role: * Feliciano Schroeder - Primary * Miguel (Sudeep) Benny - Resident - Assisting * Damon Garcias (Fel) - FellowNo Additional StaffAnesthesia: GeneralFLUIDSIntake: 1200ccUrine Output: n/a, irrigationEstimated Blood Loss: 50 mlsAccidental punctures or Lacerations: noneComplications: NoneDrains: Christian, 20fr coude tipImplants: [id number] JJ ureteral stentCultures: NoneFindings: Soft stones in R Renal pelvis and R lower pole (>3cm). Lowerpole access. Stone free at end of the case.Specimens:Specimen ID Type Site Comments Sent Toother Stone stones sent to PACU with patient OtherPost-Op Plan of Care:To RNFSIGNATURE: Miguel Zapata MD PATIENT NAME: Darrell ElizaldeATE: October 11, 2017 : 3:11 PM PAGER/CONTACT #: [phone] after hours issues, please call the on-call urology pager [phone] Normal [facility] CBC and Differentialon 10-11 Abs Baso 0.03 k/uL Normal <0.11 [facility] Comment on above: Performed By: #### C BCDIF ####[place] [address] [place] [phone] Abs [place] 1.18 k/uL High <0.87 [facility] Comment on above: Performed By: #### C BCDIF ####[place] [address] [place] [phone] Abs Neut 12.38 k/uL High 1.45-7.50 [facility] Comment on above: Performed By: #### C BCDIF ####[place] [id number] [place] [phone] Basophils/100 WBC Auto (Bld) 0.2 % Normal [facility] Comment on above: Performed By: #### C BCDIF ####[facility] [place] [phone] DTYPE Auto Diff Normal [facility] Comment on above: Performed By: #### C BCDIF ####[place] [address] [place], [place] [phone] Eosinophils 0.06 10*3/uL Normal <0.46 [facility] Comment on above: Performed By: #### C BCDIF ####[place] [address] [place], [place] [phone] Eosinophils/100 leukocytes 0.4 % Normal [facility] Comment on above: Performed By: #### C BCDIF ####[place] [address] [place], [place] [phone] Erythrocyte distribution width Auto Ratio (RBC) 12.4 % Normal 11.5-15.0 [facility] Comment on above: Performed By: #### C BCDIF ####[place] [address] [place], [place] [phone] Erythrocytes (RBC) 0.0 /100 WBC Normal 0 [facility] Comment on above: Performed By: #### C BCDIF ####[place] [address] [place] [phone] Erythrocytes (RBC) 10*6/uL Normal <0.01 [facility] Comment on above: Performed By: #### C BCDIF ####[place] [address] [place] [phone] Erythrocytes (RBC) 4.42 10*6/uL Normal 4.20-6.00 [facility] Comment on above: Performed By: #### C BCDIF ####[place] [address] [place], [place] [phone] Hematocrit (HCT) 39.7 % Normal 39.0-51.0 [facility] Comment on above: Performed By: #### C BCDIF ####[place] [address] [place], [place] [phone] Hemoglobin mass conc (Bld) 13.7 g/dL Normal 13.0-17.0 [facility] Comment on above: Performed By: #### C BCDIF ####[place] [address], [place] [phone] Lymphocytes 2.81 10*3/uL Normal 1.00-4.00 [facility] Comment on above: Performed By: #### C BCDIF ####[address] [place], [place] [phone] Lymphocytes/100 leukocytes 17.1 % Normal [facility] Comment on above: Performed By: #### C BCDIF ####[address] [phone] MCH 31.0 pG Normal 26.0-34.0 [facility] Comment on above: Performed By: #### C BCDIF ####[address] [phone] MCHC mass conc (RBC) 34.5 g/dL Normal 30.5-36.0 [facility] Comment on above: Performed By: #### C BCDIF ####[address] [phone] MCV 89.8 fL Normal 80.0-100.0 [facility] Comment on above: Performed By: #### C BCDIF ####[address] [phone] Monocytes/100 leukocytes 7.2 % Normal [facility] Comment on above: Performed By: #### C BCDIF ####[address] [phone] Neutrophils/100 WBC Auto (Bld) 75.1 % Normal [facility] Comment on above: Performed By: #### C BCDIF ####[address] [phone] Platelet mean volume (PMV) 11.3 fL Normal 9.0-12.7 [facility] Comment on above: Performed By: #### C BCDIF ####[address], [place] [phone] Platelets 147 10*3/uL Low 150-400 [facility] Comment on above: Performed By: #### C BCDIF ####[facility] [place], [place] [phone] WBC (Leukocytes) 16.46 10*3/uL High 3.70-11.00 [facility] Comment on above: Performed By: #### C BCDIF ####[facility] [place], [place] [phone] Calculi Analysison 8 Calculus Type stone Normal [facility] Comment on above: Performed By: #### I CA, CBCDIF, VITD, PTHI, CMP, URIC ####[facility] [place], [place] [phone] Note (NOTE) Normal [facility] Comment on above: Result Comment: Calc ulus Color: OFF WHITECalculus Size & Weight: MULTIPLE PIECES, 0.5788 GRAMSComposition: CALCIUM PHOSPHATE - 60% CALCIUM OXALATE MONOHYDRATE - 30% MINOR COMPONENTS - 10%This test was developed and its performance characteristicsdetermined by the [facility] Pathology andLaboratory Medicine [place] ([facility]).It has not been cleared or approved by the FDA.[facility] is regulated under CLIA as qualified to performhigh-complexity testing.This test is used for clinical purposes. It should not be regarded asinvestigational or for research. Performed By: #### I CA, CBCDIF, VITD, PTHI, CMP, URIC ####[facility] [place], [place] [phone] NURSING PROGon 10-11-2017 NURSING PROG HNO ID: [id number] thor: Melita (Rn) EMILIANO Loyaervice: (none)Author Type: Registered NurseType: Nursing Progress NoteFiled: 10/11/2017 8:01 PMNote Text:Admission/Transfer NotePATIENT NAME: Darrell CmHillaryRN: [id number] admitted from PACU via stretcher in stable condition.Actions taken: Patient oriented to room, call light function, prescribedactivities, Patient rights and Quiet at night.This note was completed by: Melita Loya RN [facility] NURSING PROG HNO ID: [id number] thor: May TenorioRn) Betina, EMILIANOervice: NursingAuthor Type: Registered NurseType: Nursing Progress NoteFiled: 10/11/2017 10:50 AMNote Text:PRE OP LEARNING ASSESSMENTPROCEDURE/SURGERY: SURGERY: PreopREADINESS TO LEARN: InterestedCOGNITIVE ABILITY: Alert and orientedMOTIVATION TO LEARN: EagerFAMILY SUPPORT: High - Very involved in pt carePATIENT LEARNS BEST BY: Multiple MethodsFACTORS AFFECTING LEARNING: NonePHYSICAL LIMITATIONS AFFECTING LEARNING: NoneElectronically Signed By: May Moffett RN In Department: HOSPMAIN 23 [facility] OPERATIVE NOon 10-11-2017 OPERATIVE NO HNO ID: [id number] thor: Feliciano Santanaervice: UrologyAuthor Type: PhysicianType: Operative ReportFiled: 10/12/2017 9:11 AMNote Text:OPERATIVE/PROCEDURE REPORTLOG ID: [id number]/Procedure Date: 10/11/2017Incision/Procedure Start Time: 1:38 PMIncision Close/Procedure End Time: 3:13 PMSurgeon(s)/Proceduralist(s) and Taker Out(s):Surgeon(s) and Role: * Feliciano Schroeder - Primary * Miguel (Sudeep) Benny - Resident - Assisting * Damon Garcias (Fel) - FellowProcedure(s):1. Cystoscopy2. Removal of R JJ ureteral stent3. R ureteroscopy4. Right percutaneous renal access5. Dilation of percutaneous renal access tract6. Right percutaneous nephrolithotomy (>3cm)7. Basketing of stones8. Placement of R ureteral JJ stent9. Interpretation of Fluoroscopic imaging (>1hr)Anatomic Site: Kidney, Laterality: Right Ureter, Laterality: Right Bladder, Laterality: N/AApproach: EndoscopicAnesthesia: GeneralOperative Indications: This is a 67 year old male with a history ofnephrolithiasis with recent obstructing stone s/p Right ureteral stentplacement at outside hospital, noted to have two large renal stones. Afterdiscussing the risks, benefits, and alternatives of the procedure thepatient has elected to pursue management of their condition via theaforementioned surgery.Procedure Details:The patient was correctly identified and the operative plan was confirmedwith the patient and the operative team. A weight appropriate dose ofprophylactic antibiotics (Ancef) was administered intravenously prior tothe procedure and sequential compression devices were applied to the lowerextremities and activated prior to induction of anesthesia. Generalanesthesia was induced. The patient was then placed in the prone position.All pressure points were padded per protocol and the operative area wasprepped and draped in the standard sterile fashion.First clinical scientist images were obtained noting two opacities in the area of theright kidney. A flexible cystoscope was used to perform cystourethroscopy.Urethra was notable for occlusive lateral prostatic lobes. Using acystoscopic grasper, the indwelling right ureteral stent (placed prior toadmission) was brought to the meatus. A stiff glidewire was insertedthrough the stent but resistance was met at the proximal ureter, at thesite of one of the opacities. The stent was removed. A dual lumen wasinserted over the wire and an Amplatz superstiff wire was inserted; thiswire was noted to traverse the opacity into the right renal pelvis. Thiswire was clamped to the drapes as a safety wire. The first wire was thenable to traverse the opacity as well. A 14 Fr coude tip christian was insertedinto the bladder after a straight 2-way catheter met resistance in theposterior urethra. A 13/15F x 36 cm ureteral access sheath was thenadvanced over the stiff glidewire wire up to the level of the proximalureter. Flexible ureteroscopy was performed noting an approximate 1.5cmstone in the renal pelvis. Retrograde pyelogram was performed withcontrast injected via the scope and filing defect noted in the lower polecalyx consistent with a second stone. Ureteroscope was maneuvered to thissite, a posterior lower pole calyx, and noted an approximately 2 cm stone. Both stones were noted to be soft with pieces breaking off when contactedby scope. The ureteroscope was kept in this calyx for percutaneous access.The 18-gauge Chiba percutaneous access needle was then used to access thecalyx under direct vision. A stiff glidewire was advanced through theneedle sheath, grasped using a halo basket, and pulled out through theurethral meatus to gain iskezhs-vgm-yhkkerg access.A glide catheter was used to exchange the lkovhsw-eng-gxgxhkw guidewirefor an Amplatz superstiff wire. The ureteroscope was re-inserted to theaccessed calyx. An 8/10 Fr dilator was then used to gently dilate thetract. The tract was incised at the skin for 10 mm. The [employer]-Forceballoon was advanced over the wire and noted to enter the collectingsystem under direct vision. The renal tract was dilated to 30F using 30atmospheres with good dilation of the tract. The working sheath was thenadvanced over the balloon and into the kidney under fluoroscopic guidance.The balloon was then removed, and the rigid nephroscope was inserted.Rigid nephroscopy was then performed, and the lower pole stone wasvisualized and removed with the ShockPulse. In the right renal pelvisShockPulse used to remove the remaining stone. Flexible nephroscopy wasthen performed and the remaining poles of the kidney were without stone.Flexible retrograde ureteroscopy was performed again and noted severalstone fragments in the proximal ureter, which were removed using the halobasket. Flexible nephroscopy again confirmed there was no significantstone burden remaining. The ureteral access sheath and christian were thenremoved and a 7Fr x 28cm double-J stent was placed over the Amplatz safetywire and had good curls in both the kidney and the bladder. A 20Fr coudetip Christian catheter was placed. A glide catheter was placed over theremaining wire and both were removed under fluoroscopy, with good stentposition confirmed. The percutaneous renal access sheath was removed. Theincision was closed with a 2-0 prolene stitch. Dressing was applied.Fluoroscopic interpretation of images was performed to evaluate forguidance of the ureteroscope, accurate guidewire placement, monitor tractdilation and confirm proper stent positioning. The patient tolerated theprocedure well, emerged from anesthesia without incident, and wastransferred to PACU in stable condition.Pre-Op/Pre-Procedure Diagnosis: Pre-Op Diagnosis Codes: * Calculus of kidney [N20.0]Post-Op/Post-Procedure Diagnosis: Post-Op Diagnosis Codes: * Calculus of kidney [N20.0]Estimated Blood Loss: 50 mlsSpecimens:Specimen ID Type Site Comments Sent Toother Stone stones sent to PACU with patient OtherKidney stones for analysisImplantable Devices: Indwelling 7 Fr. X 28cm JJ ureteral stentDrains:20 Fr. Coude tip Christian catheterComplications: NoneQualifier: NoneThe primary surgeon/proceduralist performed the entire procedure withassistance from Dr. Garcias and Dr. Zapata.Miguel Zapata M.D.Urology PGY-2Pager: [phone] 20174:59 PMOvernight and on weekends please page [phone] RADHA Schroederirector, Surgical Stone Disease, [facility] Urologic InstituteProfessor of Surgery, [facility]ita Health SystemPager [phone]/12/2017 Normal [facility] PROGRESSon 10-11-2017 PROGRESS HNO ID: [id number] thor: Tyler (Res) Rick Meridarvice: Pediatric UrologyAuthor Type: ResidentType: Progress NotesFiled: 10/11/2017 8:13 PMNote Text:UROLOGY SERVICE POST-OP CHECK NOTEJanuary 20178:10 PMS: No complaints, pain controlled, no N/V. UOP adequate. No CP or SOB,fever, chills.O:Current hospital medications:[MAR Hold due to Transfer] 0.9% NaCl 2-10 mL 2-10 mL INTRAVENOUS q 12 H[MAR Hold due to Transfer] lactated ringers infusion 75 mL/hr INTRAVENOUSCONTINUOUSlosartan 25 mg tab(s) (COZAAR) 25 mg ORAL DAILYtamsulosin ER 0.4 mg cap(s) (FLOMAX) 0.4 mg ORAL AT BEDTIMENaCl 0.9% iv infusion 125 mL/hr INTRAVENOUS CONTINUOUSacetaminophen 1,000 mg tab(s) (TYLENOL) 1,000 mg ORAL q 6 HfentaNYL 50 mcg/mL 25-50 mcg injection (SUBLIMAZE) 25-50 mcg INTRAVENOUS q2 H PRNondansetron (PF) 4 mg injection (ZOFRAN) 4 mg INTRAVENOUS q 6 H PRNceFAZolin 2 g in dextrose (iso-osmotic) 100 mL (ANCEF, KEFZOL) 2 gINTRAVENOUS q 8 Hdocusate sodium 100 mg cap(s) (COLACE) 100 mg ORAL BIDzolpidem 5 mg tab(s) (AMBIEN) 5 mg ORAL HS PRNaluminum-magnesium hydroxide-simethicone 200-200-20 mg/5 mL 30 mL(MAALOX,MYLANTA,MAG-AL PLUS) 30 mL ORAL q 6 H PRNphenol 1 [place] (CHLORASEPTIC) 1 [place] MUCOUS MEMBRANE (TOPICAL MOUTH ANDTHROAT) q 2 H PRNsimethicone, chewable 80 mg tab(s) (MYLICON) 80 mg ORAL q 8 H PRNoxybutynin 5 mg tab(s) (DITROPAN) 5 mg ORAL q 8 H PRNoxyCODONE IR 5-10 mg tab(s) (ROXICODONE) 5-10 mg ORAL q 4 H PRNBP 148/81 Pulse 90 Temp 36.7 ?C (98.1 ?F) (Oral) Resp 16 Ht 175.3cm (5' 9 ) Wt 80 kg (176 lb 5.9 oz) SpO2 99% BMI 26.05 kg/z1JULTOHRI EXAM:GENERAL: no distressNEURO: AADULr7QOYAD: breathing comfortably on 2LCARDIAC: warm and well perfused throughoutABDOMEN: soft, mild distended, non tender.WOUND: CDIGU: Christian catheter present, red urine no clotsLABSCBC, Coags, BMP, Mg, PhosRecent Labs [id number] 16.46*HB 13.7HCT 39.7PLT 147*A/P:Darrell Nelson is a 67 year old male POD 0 s/p r PCNL. Expected post opcourseNeuro: Pain well controlled.Continue pain regimenCV: HDSRespiratory: Sat>90% on 2L . CXR ok, Incentive spirometryGI:GI Soft/regular diet .FEN: on mIVF.Renal: good UOP.ID:afebrile. Perioperative antibiotics -Heme: Hemoglobin stable. . .Wound: appears cdi.Prophylaxis: PAS Stockings onActivity - OOB to chairSecondary Dx and Complications - NoneDischarge teaching - routine teachingDischarge planning - pendingTyler Ramos [place].Pg [phone] Normal [facility] PT EDon 10-11-2017 PT ED HNO ID: [id number] thor: [facility] ProviderService: (none)Author Type: PhysicianType: Patient EducationFiled: 10/11/2017 7:15 PMNote Text:[facility] HospitalPatient Education Report Name: DARRELL NELSON Date: 10/11/2017 Time: 7:15 PMPatient Ordered Video: Inpatient Fallsfrom [id number] via phone number [phone] at 7:15 PM Normal [facility] XR CHEST 1V FRONTAL PORTon 0 10-11-2017 XR CHEST 1V FRONTAL PORT * * *Final Report* * *DATE OF EXAM: Oct 11 2017 4:11PM ESX [id number] - XR CHEST 1V FRONTAL PORT / REASON: H/O nephrostomy * * * * Physician Interpretation * * * * HISTORY: H/O nephrostomyTECHNIQUE: Portable chestCOMPARISON: None.RESULT:The heart size is normal. There is no focal pulmonary consolidation. No pleural effusion or pneumothorax. Partially seen hardware from lower cervical fusion.IMPRESSION:NO ACUTE DISEASETranscriptionist: PSCB Transcribe Date/Time: Oct 11 2017 4:13PDictated by : TULIO ORDOÑEZ MDThis examination was interpreted and the report reviewed and electronically signed by: TULIO ORDOÑEZ MD on Oct 11 2017 4:13PM [id number] Normal [facility] CNCOon 10-05-2017 CNCO Letter Text/12/2017M teresa Cmd[address] [id number] Mr. Nelson:Your recent 24 hour urine test revealed that the main risk factor for newkidney stone formation in the future is very low urine volume. Yours was0.88 liters (about 3.5 eight oz. glasses). We prefer a urine volume of 9-10eight oz. glasses so please increase your daily water/fluid intake by atleast 6 more glasses with some of the water during the night time. Thisshould greatly reduce the risk for future kidney stones. You may contact [facility] [phone] with any questions or concerns.Sincerely,Feliciano Schroeder M.D.ELECTRONICALLY SIGNED Normal [facility] CBC and Differentialon 09-12 Abs Baso 0.04 k/uL Normal <0.11 [facility] Comment on above: Performed By: #### I CA, CBCDIF, VITD, PTHI, CMP, URIC ####[place] [address] [address]CR[address] [place] [phone] Abs [place] 1.26 k/uL High <0.87 [facility] Comment on above: Performed By: #### I CA, CBCDIF, VITD, PTHI, CMP, URIC ####[place] [address] [address] [place] [phone] Abs Neut 6.39 k/uL Normal 1.45-7.50 [facility] Comment on above: Performed By: #### I CA, CBCDIF, VITD, PTHI, CMP, URIC ####[place] [address] [place] [phone] Basophils/100 WBC Auto (Bld) 0.3 % Normal [facility] Comment on above: Performed By: #### I CA, CBCDIF, VITD, PTHI, CMP, URIC ####[place] [id number]CJ[address] [place] [phone] DTYPE Auto Diff Normal [facility] Comment on above: Performed By: #### I CA, CBCDIF, VITD, PTHI, CMP, URIC ####[place] [address] [place] [phone] Eosinophils 0.10 10*3/uL Normal <0.46 [facility] Comment on above: Performed By: #### I CA, CBCDIF, VITD, PTHI, CMP, URIC ####[facility] [place] [phone] Eosinophils/100 leukocytes 0.9 % Normal [facility] Comment on above: Performed By: #### I CA, CBCDIF, VITD, PTHI, CMP, URIC ####[place] [address] [place] [phone] Erythrocyte distribution width Auto Ratio (RBC) 12.9 % Normal 11.5-15.0 [facility] Comment on above: Performed By: #### I CA, CBCDIF, VITD, PTHI, CMP, URIC ####[place] [address] [place] [phone] Erythrocytes (RBC) 0.0 /100 WBC Normal 0 [facility] Comment on above: Performed By: #### I CA, CBCDIF, VITD, PTHI, CMP, URIC ####[place] [address] [place] [phone] Erythrocytes (RBC) 4.74 10*6/uL Normal 4.20-6.00 [facility] Comment on above: Performed By: #### I CA, CBCDIF, VITD, PTHI, CMP, URIC ####[facility] [place] [phone] Erythrocytes (RBC) 10*6/uL Normal <0.01 [facility] Comment on above: Performed By: #### I CA, CBCDIF, VITD, PTHI, CMP, URIC ####[place] [phone] [place] [phone] Hematocrit (HCT) 43.7 % Normal 39.0-51.0 [facility] Comment on above: Performed By: #### I CA, CBCDIF, VITD, PTHI, CMP, URIC ####[place] [address] [place] [phone] Hemoglobin mass conc (Bld) 14.2 g/dL Normal 13.0-17.0 [facility] Comment on above: Performed By: #### I CA, CBCDIF, VITD, PTHI, CMP, URIC ####[place] [address] [place] [phone] Lymphocytes 3.64 10*3/uL Normal 1.00-4.00 [facility] Comment on above: Performed By: #### I CA, CBCDIF, VITD, PTHI, CMP, URIC ####[place] [address] [place] [phone] Lymphocytes/100 leukocytes 31.8 % Normal [facility] Comment on above: Performed By: #### I CA, CBCDIF, VITD, PTHI, CMP, URIC ####[place] [address] [place] [phone] MCH 30.0 pG Normal 26.0-34.0 [facility] Comment on above: Performed By: #### I CA, CBCDIF, VITD, PTHI, CMP, URIC ####[place] [address] [place] [phone] MCHC mass conc (RBC) 32.5 g/dL Normal 30.5-36.0 [facility] Comment on above: Performed By: #### I CA, CBCDIF, VITD, PTHI, CMP, URIC ####[place] [address] [place] [phone] MCV 92.2 fL Normal 80.0-100.0 [facility] Comment on above: Performed By: #### I CA, CBCDIF, VITD, PTHI, CMP, URIC ####[place] [address] [place] [phone] Monocytes/100 leukocytes 11.0 % Normal [facility] Comment on above: Performed By: #### I CA, CBCDIF, VITD, PTHI, CMP, URIC ####[address] [place], [place] [phone] Neutrophils/100 WBC Auto (Bld) 56.0 % Normal [facility] Comment on above: Performed By: #### I CA, CBCDIF, VITD, PTHI, CMP, URIC ####[address] [place], [place] [phone] Platelet mean volume (PMV) 11.2 fL Normal 9.0-12.7 [facility] Comment on above: Performed By: #### I CA, CBCDIF, VITD, PTHI, CMP, URIC ####[address] [phone] Platelets 206 10*3/uL Normal 150-400 [facility] Comment on above: Performed By: #### I CA, CBCDIF, VITD, PTHI, CMP, URIC ####[address] [phone] WBC (Leukocytes) 11.43 10*3/uL High 3.70-11.00 [facility] Comment on above: Performed By: #### I CA, CBCDIF, VITD, PTHI, CMP, URIC ####[address] [phone] CNOVon 09-12-2017 CNOV Office Visit (UROLMN) DARRELL NELSON ([id number]) 1950 [facility] Time Provider Mblrdzycry55/12/17 10:30 AM FELICIANO SCHROEDER During your visit today, we recorded the following information about you: Pulse Blood pressure Weight Height 82/minute 169/91 79.4 kg 1.778 Marielena Schroeder MD 09/12/2017 7:38 PM SignedBasic HPI: 67 year old male who comes in for kidney stone management. Patienthas a history of kidney stones for over 20 years. Patient has had ESWL in thepast. Last ESWL 1.5 years ago. Patient has had calcium oxalate stones, butcurrent stones are suspected to be uric acid. Patient had blood work yesterdayin regards to uric acid, but does not know the results. Patient is currentlytaking urocit-k for the last 4-5 years, but it was not for uric acid stones.Patient's brothers had kidney stones and both with parathyroid disease. Motheris DM. No family history of gout. Patient recently had right stent placed forobstructing stones last week. Tolerating stent well. ======GUROS: UA:Component Latest Ref Rng ANDamp; Units 09/12/2017Color Yellow YellowClarity Clear Cloudy (A)Glucose, Urine Negative mg/dL NegativeBilirubin, Urine Negative NegativeKetones, Urine Negative 1+ (A)Specific [place], Ur 1.005 - 1.030 1.016Hemoglobin/Blood,Ur Negative 2+ (A)pH, Urine 4.5 - 8.0 7.0Protein, Urine Negative mg/dL 30 (A)Urobilinogen Normal NormalNitrites Negative NegativeLeukest Negative 3+ (A)Comments SEE COMMENTWBC, Urine 0 - 5 /HPF ANDgt;25 (A)RBC, Urine 0 - 3 /HPF ANDgt;25 (A)Epithelial Cells /HPF SEE COMMENTUrine Kelby Comment SEE COMMENTForce of Stream: moderateNOCTURIA: Yes: 5-6 times /nightDay Time Frequency: 2hrHesitancy: NoIntermittency: NoIncomplete Emptying: NoPost void Dribbling: Yes:Urinary Retention Hx:NoDouble Voiding: Yes:Urgency: Yes:Dysuria: NoIncontinence history: No, but is wearing a depends due to stentGross hematuria history: NoUTI Hx: Yes: currently on levaquinStone Event Hx: Yes: ESWL 1 year agoReview, other organ system:GI:Blood: NoConstipation: NoDiarrhea: Yes, from atbNausea/Vomiting: NoREVIEW OF SYSTEMSPAIN ASSESSMENT: Negative for pain, history of chronic pain, or currenttreatment for a chronic pain condition.GENERAL: No weight loss, malaise or feversRESPIRATORY: Negative for cough, hemoptysis, wheezing, COPD, dyspnea orshortness of breathCARDIOVASCULAR: HypertensionGI: No nausea, vomiting, or diarrheaGU: hx of stonesENDOCRINE: Negative for cold or heat intolerance, polyuria, polydipsia andgoiterNEURO: No history of headaches, syncope, paralysis, seizures or tremorsOTHER: patient presents for surgical consultSara ALE Rabago UROLOGY NOTE:I personally interviewed the patient, examined, confirmed and edited thehistory that was documented by Ms Conner RN and ancillary personnel.Consultation requested by Dr. Llanes for an opinion regarding large stone burdenright UPJ and upper right ureter per outside CT (reviewed in depth). My finalrecommendations will be communicated back to the requesting physician by way ofshared Medical record or letter to requesting physician via US mail.Patient with 2 large stones (I measure them at 18 mm for right UPJ stone and 15mm for right upper ureteral stone) currently drained with a JJ stent (placedlast week by Dr. Llanes). Not much discomfort from the stent at this time.Interesting FH in that 2 brothers had hyperparathyroidism and stones. Patienthas essential hypertension and believes low vit D in the past. Patient hassome LUTS with nocturia and some urge incontinence from the stent. U/A is verycellular and culture was sent.Imp: The primary encounter diagnosis was Calculus, kidney. Diagnoses ofCalculus of ureter, Right flank pain, Essential hypertension, Family history ofnephrolithiasis, Family history of hyperparathyroidism, Low vitamin D level,and Abnormal urinalysis were also pertinent to this visit.Plan: Right PCNL; will set up for 10/11/17. Consent done and booklet given.All questions answered. Metabolic w/u and night time hydration protocol.I spent ANDgt;40 minutes in this visit (including reviewing x-rays and recordsplus patient discussion), with more than 50% of the total rypp-ce-iyvg time ofthe visit devoted to patient counseling/coordination of care.Feliciano Schroeder, MDDirector, Surgical Stone Disease, [facility]rologic InstituteProfessor of Surgery, [facility] Health SystemPager [phone]/12/2017Bonita Ozuna CNP 09/12/2017 7:38 PM SignedUROLOGY SURGICAL HANDamp;PSERVICE DATE: 09/12/2017REFERRING PROVIDER: Cleveland Llanes MD[address] [facility] [id number]: No PcpGENDER:SUBJECTIVECHIEF COMPLAINT: Pre-op examHISTORY OF PRESENT ILLNESS: Mr. Nelson is a 67 year old male who presents forpre op eval. Denies renal colic, fever, chills, n/v dysuria or grosshematuria. Pt had stent placed on Monday09/08/17FUNCTIONAL STATUS: Walk a block or two on level ground (2.75 METs)Do moderate work around the house such as vacuuming, sweeping floors, orcarrying in groceries (3.50 METs)Do yardwork, such as raking leaves, weeding,or pushing a power mower (4.50 METs)No past medical history on file.No past surgical history on file.No family history on file.Social HistorySubstance Use Topics- Smoking status: Never Smoker- Smokeless tobacco: Never Used- Alcohol use NoREVIEW OF SYSTEMS:General: General: Well developed, well nourished. No acute distressHEENT: Negative for sore throat, difficulty swallowing.Negative for frequent or significant headaches, changes in vision or hearing.Cardiovascular: No history of cardiovascular symtoms or problems.No history of angina, CHF, [place], cardiac surgery of stents.Respiratory: Negative for current cough, dyspnea. No hx of pneumonia in thepast six weeksPositive: PND, sinus drainage from allergiesGastrointestinal: No history of GERD, PUD, abd pain, difficulty swallowing, GIbleed.Renal: +stonesMusculoskeletal: Negative for joint pain or swelling, back pain or muscle pain.Skin: Negative for lesions, rash and itching.Psychological: No history of psychiatric symptoms or problems.Neurologic: No history of TIA's, stroke, GEOSPATIAL SPECIALIST tumor, impaired sensorium,hemiplegia, paraplegia or quadriplegia. No neurological symptoms or problems.Hematology/Oncology: No history of bleeding or clotting disorder. Pt is nottaking anti-coagulation or platelet medications. No history of hematologicalsymptoms or problems.Endocrine: No history of endocrinological symtoms or problemsNo history of DM; has not taken steroids w/in past 30 days.Negative for excessive sweating, thirst or hungerPHYSICAL EXAM:General Appearance/ Constitutional: Well developed, well nourished, and in noapparent distressHead and Neck normal, no jugular venous extension, no thyromegaly and nopalpable massEyes: EOM intact, eyes clearRespiratory: Clear to ausculationCardiovascular: Normal, Regular rate and rhythm and No murmursGI: Soft, Non-tender and No masses, hepatosplenomegalyExtremities: Radial pulses intact, no edema notedBack: Normal back and mobilityNeurological: Normal cognition and motor skills.Skin: Color, texture, turgor normal.VITALS:BP 169/91 Pulse 82 Ht 177.8 cm (5' 10ANDquot;) Wt 79.4 kg (175 lb) BMI25.11 kg/c1Wohpvswgsvn Max: @TMAXREFRESH(24)@ALLERGIES:ISIS RGIESNo Known AllergiesLABS:No results found for: BUNNo results found for: CREATNo results found for: PSAGlucose, Urine (mg/dL)Date Value09/12/2017 Negative Bilirubin, Urine (no units)Date Value09/12/2017 Negative Ketones, Urine (no units)Date Value09/12/2017 1+ (A) Specific [place], Ur (no units)Date Value09/12/2017 1.016 Hemoglobin/Blood ,Ur ( )Date Value09/12/2017 2+ (A) pH, Urine (no units)Date Value09/12/2017 7.0 Protein, Urine (mg/dL)Date Value09/12/2017 30 (A) Nitrites (no units)Date Value09/12/2017 Negative WBC, Urine (/HPF)Date Value09/12/2017 ANDgt;25 (A) Color (no units)Date Value09/12/2017 Yellow Clarity (no units)Date Value09/12/2017 Cloudy (A) MEDICATIONS:(Not in a hospital admission)Current Outpatient Prescriptions:multivitamin tablet Take 1 tablet by mouth once daily.potassium citrate ER (UROCIT-K) 10 mEq (1,080 mg) TbER 10 mEq.tamsulosin ER (FLOMAX) 0.4 mg cp24 0.4 mg.oxybutynin (DITROPAN) 5 mg tablet 5 mg.losartan (COZAAR) 25 mg tablet Take 25 mg by mouth once daily.levoFLOXacin (LEVAQUIN) 500 mg tablet 500 mg.No current facility-administered medications for this visit.DIAGNOSIS, ASSESSMENT AND PLANThere are no active hospital problems to display for this patient.Assessment ANDamp; Plan:N20.0 Calculus, kidney (primary encounter diagnosis)N20.1 Calculus of ordrjnH44.9 Right flank painI10 Essential blntatnmwrunR17.1 Family history of kkrmrtcgaxbyopgG77.49 Family history of hwrfqbnvmimebkrtsorO20.9 Low vitamin D lpnxeG52.90 Abnormal urinalysisGLICKMAN UROLOGICAL AND KIDNEY INSTITUTEPRE-OP NOTEDate of Procedure: 10/11/17Procedure/Surgery: PCNLDiagnosis: stonesPrimary Surgeon: Leeannequest Score: 2Pain Assessment: Are you currently having pain? Yes PAIN SCALE: 1 on a scaleof 0-10Surgical Guide Book Status: Patient reviewed book.Dialysis Guide Book Status: N/AAllergies Reviewed: YesMedications Reviewed: YesIs patient currently on oral steroids?: NoHas the patient had a UTI in the past month?: Yes. Antibiotic taken: levaquinDoes the patient have any artificial joints (last 2 years), metal parts,pacemakers or cardiac/ureteral stents in place?: Yes, ureteral stentDoes the patient have diabetes?: NoIs the patient routinely taking anticoagulants?: No.Can the patient have an IV put in either arm?: YesUrine Dip Complete?: YesURINE CULTURE COMPLETE?: YesIMPACT/Medical Clearance: Cleared per IMPACT - NoPACE Clinic: Cleared per PACE - NoAll testing on cureform has been scheduled: YesConsent Signed: Yes.DOS Orders Placed and Signed: Pended. Physician will sign and release.Pre-op HANDamp;P Done by Nurse Practitioner: Yes.PATIENT INSTRUCTIONS FOR SURGERY1.) DO NOT HAVE ANYTHING TO EAT OR DRINK AFTER MIDNIGHT THE DAY BEFORE SURGERYexcept for certain morning medications as instructed by the doctor. Candy,mints, gum, and smoking are NOT permitted. If the surgery is scheduled for theafternoon, you may have water during the morning of surgery if permitted byyour surgeon.2.) Medications to be taken on the morning of surgery with a few sips of water: Per discussion3.) Please bring all your prescribed inhalers (if you have any you normallytake) to the hospital.4.) Arrival time: Call for arrival.5.) Prep given: No6.) Lovenox instructions given: No7.) Patient reminded that surgery time provided day before surgery is tentativebased on potential changes with transplants.Recommendations: This patient is optimally prepared for surgery pending LABSand ucx.Bonita Ozuna CNPElectronically signedSIGNATURE: Bonita Ozuna CNP PATIENT NAME: Darrell ElizaldeATE: September 12, 2017 : 11:45 AM PAGER/CONTACT #:Referring Provider: CLEVELAND LLANES [[id number]]Allergies As of Date: 09/12/2017(No Known Allergies)Date Reviewed: 09/12/2017Reviewed by: Az Ann MA - Fully AssessedPrimary Visit Diagnosis:Calculus, kidney [N20.0] Other Visit Diagnoses:Calculus of ureter [N20.1] Right flank pain [R10.9] Essential hypertension [I10] Family history of nephrolithiasis [Z84.1] Family history of hyperparathyroidism [Z83.49] Low vitamin D level [E55.9] Abnormal urinalysis [R82.90]Order(s):UA CHEMSTRIP ONLY [SQUA] Order #: [id number] FUTURE UA CHEMSTRIP ONLY [SQUA] Order #: [id number]. #:[id number] VITAMIN D 25 HYDROXY [SQVITD] Order #: [id number] FUTURE CBC + DIFF [SQCBCDIF] Order #: [id number] FUTURE COMP METABOLIC PANEL [SQCMP] Order #: [id number] FUTURE PTH INTACT BLD [SQPTHI] Order #: [id number] FUTURE URIC ACID BLOOD [SQURIC] Order #: [id number] FUTURE TYPE + SCREEN,30 DAY [ETNYBM02] Order #: [id number] FUTURE CONFIRM BLOOD TYPE [SQCONABO] Order #: [id number] FUTURE ECG COMPLETE W INTERPRETATION [ECG01] Order #: [id number] FUTURE [facility] [0554389] Order #: [id number] CALCIUM IONIZED B [SQICA] Order #: [id number] FUTURE URINE CULTURE [SQURCUL] Order #: [id number]. #:[id number] iptions as of 09/12/2017 Sig: MULTIVITAMIN TABLET Take 1 tablet by mouth once d* POTASSIUM CITRATE ER 10 MEQ (* 10 mEq. TAMSULOSIN 0.4 MG CAPSULE 0.4 mg. OXYBUTYNIN CHLORIDE 5 MG TABL* 5 mg. LOSARTAN 25 MG TABLET Take 25 mg by mouth once nella* LEVOFLOXACIN 500 MG TABLET 500 mg.Medication notes this encounter POTASSIUM CITRATE ER 10 MEQ (1,080 MG) TABLET,EXTENDED RELEASE >> Az Ann MA 09/12/2017 10:20 AM >> AZ ANN MA Sep 12, 2017 10:20 AM Received from: External Pharmacy TAMSULOSIN 0.4 MG CAPSULE >> Az Ann MA 09/12/2017 10:20 AM >> AZ ANN MA Sep 12, 2017 10:20 AM Received from: External Pharmacy OXYBUTYNIN CHLORIDE 5 MG TABLET >> Az Ann MA 09/12/2017 10:20 AM >> AZ ANN MA Sep 12, 2017 10:20 AM Received from: External Pharmacy Received Sig: take 1 tablet by mouth twice aday FOR BLADDER SPASM LOSARTAN 25 MG TABLET >> Az Seth FLORES 09/12/2017 10:20 AM >> SETH CASPER FLORESSHELDON Orellana Sep 12, 2017 10:20 AM Received from: External Pharmacy Received Sig: take 1 tablet by mouth oncedaily LEVOFLOXACIN 500 MG TABLET >> Az Seth FLORES 09/12/2017 10:20 AM >> SETH FLORES AZ Orellana Sep 12, 2017 10:20 AM Received from: External Pharmacy Received Sig: take 1 tablet by mouth everymorning for 10 daysProblem List As Of Date 09/12/2017 Noted Resolved Calculus, kidney [N20.0] INVALID FOR* Calculus of ureter [N20.1] INVALID FOR* Right flank pain [R10.9] INVALID FOR* Essential hypertension [I10] INVALID FOR* Family history of nephrolithiasis [Z84.1] INVALID FOR* Family history of hyperparathyroidism [Z83.49] INVALID FOR* Low vitamin D level [E55.9] INVALID FOR* Abnormal urinalysis [R82.90] INVALID FOR* Calculus of kidney [N20.0] INVALID FOR* More...Disposition: Return for blood work, EKG today; [facility]; surgery 10/11/17;.Follow-up and Disposition History RecordedLetter TextDecember 2016Cleveland Llanes MD[address] [place] [address]INGN: Katherine Nelson NO: [id number] OF SERVICE: 09/12/2017Dear Dr. Llanes,I recently saw your patient, Mr. Nelson, in the [facility] [place],[facility].Enclosed is a copy of my clinic note which should be self-explanatoryregarding findings, recommendations, and treatment plan. Please don'thesitate to contact me if there are questions.Sincerely,Feliciano Schroeder M.D.Staff Urologist, [facility] HospitalELECTRONICALLY SIGNEDcc: Abigail Sanchez M.D., [facility] [place] [address]Fcmcfrttr Number: [id number] Status:Closed by FELICIANO SCHROEDER MD on 09/12/17 Normal [facility] Calcium, Ionizedon 7 Calcium 1.14 mmol/L Normal 1.08-1.30 [facility] Comment on above: Performed By: #### I CA, CBCDIF, VITD, PTHI, CMP, URIC ####[place] [id number] [place] [phone] Calcium, Ionized 1.20 mmol/L Normal 1.08-1.30 [facility] Comment on above: Performed By: #### I CA, CBCDIF, VITD, PTHI, CMP, URIC ####[place] [address] [address] [phone] Comp Metabolic Panelon 09-12 Alanine aminotransferase (ALT) 43 U/L Normal 10-54 [facility] Comment on above: Performed By: #### I CA, CBCDIF, VITD, PTHI, CMP, URIC ####[place] [address] [address] [place] [phone] Albumin 3.8 g/dL Low 3.9-4.9 [facility] Comment on above: Performed By: #### I CA, CBCDIF, VITD, PTHI, CMP, URIC ####[place] [address] [address] [phone] Alkaline phosphatase (ALP) 98 U/L Normal 36-108 [facility] Comment on above: Performed By: #### I CA, CBCDIF, VITD, PTHI, CMP, URIC ####[place] [id number] [place] [phone] Anion gap 15 mmol/L Normal 9-18 [facility] Comment on above: Performed By: #### I CA, CBCDIF, VITD, PTHI, CMP, URIC ####[place] [address] [address] [phone] Aspartate aminotransferase (AST) 40 U/L Normal 14-40 [facility] Comment on above: Performed By: #### I CA, CBCDIF, VITD, PTHI, CMP, URIC ####[place] [address] [address] [place] [phone] Bilirubin (total) 0.5 mg/dL Normal 0.2-1.3 [facility] Comment on above: Performed By: #### I CA, CBCDIF, VITD, PTHI, CMP, URIC ####[place] [address] [address] [place] [phone] Calcium 9.3 mg/dL Normal 8.5-10.2 [facility] Comment on above: Performed By: #### I CA, CBCDIF, VITD, PTHI, CMP, URIC ####[place] [address] [address] [place] [phone] Chloride 100 mmol/L Normal 97-105 [facility] Comment on above: Performed By: #### I CA, CBCDIF, VITD, PTHI, CMP, URIC ####[place] [address] [address] [place] [phone] CO2 26 mmol/L Normal 22-30 [facility] Comment on above: Performed By: #### I CA, CBCDIF, VITD, PTHI, CMP, URIC ####[place] [address] [address] [phone] Creatinine 1.05 mg/dL Normal 0.73-1.22 [facility] Comment on above: Performed By: #### I CA, CBCDIF, VITD, PTHI, CMP, URIC ####[place] [address] [address] [place] [phone] eGFR (non-black) mL/min/{1.73_m2} Normal [facility] Comment on above: Performed By: #### I CA, CBCDIF, VITD, PTHI, CMP, URIC ####[place] [address] [address] [place] [phone] Result Comment: eGFR (Estimated GFR) Units of measure: mL/min/1.73 meters squaredeGFR is derived from the reexpressed MDRD Study equation using the following parameters: serum creatinine, age, gender and race. The creatinine assay has been calibrated to be traceable to IDMS.An eGFR <60 mL/min/1.73m2 for >3 months is consistent with chronic kidney disease. Refer to KDOQI guidelines for clinical interpretation.In patients with unstable renal function, e.g. those with acute kidney injury, the eGFR may not accurately reflect actual GFR. Glucose mass conc 92 mg/dL Normal 74-99 [facility] Comment on above: Result Comment: The [place] [employer] (ADA) provides guidance for cutoff values for fasting glucose and random glucose. The ADA defines fasting as no caloric intake for at least 8 hours. Fasting plasma glucose results between 100 to 125 mg/dL indicate increased risk for diabetes (prediabetes).Fasting plasma glucose results greater than or equal to 126 mg/dL meet the criteria for diagnosis of diabetes. In the absence of unequivocal hyperglycemia, results should be confirmed by repeat testing. In a patient with classic symptoms of hyperglycemia or hyperglycemic crisis, random plasma glucose results greater than or equal to 200 mg/dL meet the criteria for diagnosis of diabetes.Reference: Standards of Medical Care in Diabetes 2016, [place] [employer]. Diabetes Care. 2016.39(Suppl 1). Performed By: #### I CA, CBCDIF, VITD, PTHI, CMP, URIC ####[place] [id number] [place], [place] [phone] Potassium molar conc 4.0 mmol/L Normal 3.7-5.1 [facility] Comment on above: Performed By: #### I CA, CBCDIF, VITD, PTHI, CMP, URIC ####[facility], [place] [phone] Protein 7.5 g/dL Normal 6.3-8.0 [facility] Comment on above: Performed By: #### I CA, CBCDIF, VITD, PTHI, CMP, URIC ####[facility] [place], [place] [phone] Sodium 141 mmol/L Normal 136-144 [facility] Comment on above: Performed By: #### I CA, CBCDIF, VITD, PTHI, CMP, URIC ####[facility] [place], [place] [phone] Urea nitrogen 10 mg/dL Normal 9-24 [facility] Comment on above: Performed By: #### I CA, CBCDIF, VITD, PTHI, CMP, URIC ####[facility] [place], [place] [phone] Confirm Blood Typeon 017 ABO/RH(D) Positive Normal [facility] Comment on above: Performed By: #### C ONABO ####[facility] [place], [place] [phone] HISTORY PHYSICALon 7 HISTORY PHYSICAL HNO ID: [id number] thor: Bonita ([facility]) DigennaroService: (none)Author Type: Nurse PractitionerType: HANDPFiled: 09/12/2017 7:38 PMNote Text:UROLOGY SURGICAL HANDPSERVICE DATE: 09/12/2017REFERRING PROVIDER: Cleveland Llanes MD[address] [facility] [id number]: No PcpGENDER:SUBJECTIVECHIEF COMPLAINT: Pre-op examHISTORY OF PRESENT ILLNESS: Mr. Nelson is a 67 year old male who presentsfor pre op eval. Denies renal colic, fever, chills, n/v dysuria or grosshematuria. Pt had stent placed on Monday09/08/17FUNCTIONAL STATUS: Walk a block or two on level ground (2.75 METs)Do moderate work around the house such as vacuuming, sweeping floors, orcarrying in groceries (3.50 METs)Do yardwork, such as raking leaves, weeding,or pushing a power mower (4.50METs)No past medical history on file.No past surgical history on file.No family history on file.Social HistorySubstance Use Topics- Smoking status: Never Smoker- Smokeless tobacco: Never Used- Alcohol use NoREVIEW OF SYSTEMS:General: General: Well developed, well nourished. No acute distressHEENT: Negative for sore throat, difficulty swallowing.Negative for frequent or significant headaches, changes in vision orhearing.Cardiovascular: No history of cardiovascular symtoms or problems.No history of angina, CHF, [place], cardiac surgery of stents.Respiratory: Negative for current cough, dyspnea. No hx of pneumonia inthe past six weeksPositive: PND, sinus drainage from allergiesGastrointestinal: No history of GERD, PUD, abd pain, difficultyswallowing, GI bleed.Renal: +stonesMusculoskeletal: Negative for joint pain or swelling, back pain or musclepain.Skin: Negative for lesions, rash and itching.Psychological: No history of psychiatric symptoms or problems.Neurologic: No history of TIA's, stroke, GEOSPATIAL SPECIALIST tumor, impaired sensorium,hemiplegia, paraplegia or quadriplegia. No neurological symptoms orproblems.Hematology/Oncology: No history of bleeding or clotting disorder. Pt isnot taking anti-coagulation or platelet medications. No history ofhematological symptoms or problems.Endocrine: No history of endocrinological symtoms or problemsNo history of DM; has not taken steroids w/in past 30 days.Negative for excessive sweating, thirst or hungerPHYSICAL EXAM:General Appearance/ Constitutional: Well developed, well nourished, and inno apparent distressHead and Neck normal, no jugular venous extension, no thyromegaly and nopalpable massEyes: EOM intact, eyes clearRespiratory: Clear to ausculationCardiovascular: Normal, Regular rate and rhythm and No murmursGI: Soft, Non-tender and No masses, hepatosplenomegalyExtremities: Radial pulses intact, no edema notedBack: Normal back and mobilityNeurological: Normal cognition and motor skills.Skin: Color, texture, turgor normal.VITALS:BP 169/91 Pulse 82 Ht 177.8 cm (5' 10 ) Wt 79.4 kg (175 lb) BMI25.11 kg/x3Jtmdjncukow Max: @TMAXREFRESH(24)@ALLERGIES:ISIS RGIESNo Known AllergiesLABS:No results found for: BUNNo results found for: CREATNo results found for: PSAGlucose, Urine (mg/dL)Date Value09/12/2017 Negative Bilirubin, Urine (no units)Date Value09/12/2017 Negative Ketones, Urine (no units)Date Value09/12/2017 1+ (A) Specific [place], Ur (no units)Date Value09/12/2017 1.016 Hemoglobin/Blood ,Ur ( )Date Value09/12/2017 2+ (A) pH, Urine (no units)Date Value09/12/2017 7.0 Protein, Urine (mg/dL)Date Value09/12/2017 30 (A) Nitrites (no units)Date Value09/12/2017 Negative WBC, Urine (/HPF)Date Value09/12/2017 >25 (A) Color (no units)Date Value09/12/2017 Yellow Clarity (no units)Date Value09/12/2017 Cloudy (A) MEDICATIONS:(Not in a hospital admission)Current Outpatient Prescriptions:multivitamin tablet Take 1 tablet by mouth once daily.potassium citrate ER (UROCIT-K) 10 mEq (1,080 mg) TbER 10 mEq.tamsulosin ER (FLOMAX) 0.4 mg cp24 0.4 mg.oxybutynin (DITROPAN) 5 mg tablet 5 mg.losartan (COZAAR) 25 mg tablet Take 25 mg by mouth once daily.levoFLOXacin (LEVAQUIN) 500 mg tablet 500 mg.No current facility-administered medications for this visit.DIAGNOSIS, ASSESSMENT AND PLANThere are no active hospital problems to display for this patient.Assessment AND Plan:N20.0 Calculus, kidney (primary encounter diagnosis)N20.1 Calculus of juqzwoO42.9 Right flank painI10 Essential faskxxlrkzvgH71.1 Family history of hzfvldfvmagtvqyR69.49 Family history of nswprcoqxkpfcaehwukJ68.9 Low vitamin D ywoerU81.90 Abnormal urinalysisGLICKMAN UROLOGICAL AND KIDNEY INSTITUTEPRE-OP NOTEDate of Procedure: 10/11/17Procedure/Surgery: PCNLDiagnosis: stonesPrimary Surgeon: Alanna Score: 2Pain Assessment: Are you currently having pain? Yes PAIN SCALE: 1 on ascale of 0-10Surgical Guide Book Status: Patient reviewed book.Dialysis Guide Book Status: N/AAllergies Reviewed: YesMedications Reviewed: YesIs patient currently on oral steroids?: NoHas the patient had a UTI in the past month?: Yes. Antibiotic taken:levaquinDoes the patient have any artificial joints (last 2 years), metal parts,pacemakers or cardiac/ureteral stents in place?: Yes, ureteral stentDoes the patient have diabetes?: NoIs the patient routinely taking anticoagulants?: No.Can the patient have an IV put in either arm?: YesUrine Dip Complete?: YesURINE CULTURE COMPLETE?: YesIMPACT/Medical Clearance: Cleared per IMPACT - NoPACE Clinic: Cleared per PACE - NoAll testing on cureform has been scheduled: YesConsent Signed: Yes.DOS Orders Placed and Signed: Pended. Physician will sign and release.Pre-op HANDP Done by Nurse Practitioner: Yes.PATIENT INSTRUCTIONS FOR SURGERY1.) DO NOT HAVE ANYTHING TO EAT OR DRINK AFTER MIDNIGHT THE DAY BEFORESURGERY except for certain morning medications as instructed by thedoctor. Candy, mints, gum, and smoking are NOT permitted. If the surgeryis scheduled for the afternoon, you may have water during the morning ofsurgery if permitted by your surgeon.2.) Medications to be taken on the morning of surgery with a few sips ofwater: Per discussion3.) Please bring all your prescribed inhalers (if you have any younormally take) to the hospital.4.) Arrival time: Call for arrival.5.) Prep given: No6.) Lovenox instructions given: No7.) Patient reminded that surgery time provided day before surgery istentative based on potential changes with transplants.Recommendations: This patient is optimally prepared for surgery pendingLABS and ucx.Bonita Ozuna CNPElectronically signedSIGNATURE: Bonita Ozuna CNP PATIENT NAME: Darrell CmdDATE: September 12, 2017 : 11:45 AM PAGER/CONTACT #: Dong [facility] 09-12-2017 HOSP Patient Update ([facility]) DARRELL NELSON ([id number]) 1950 MDate Time Provider Zyyfgyjrfo85/12/17 ASHTYN RABAGO (RN) [facility] During your visit today, we recorded the following information about you:Allergies As of Date: 09/12/2017(No Known Allergies)Date Reviewed: 09/12/2017Reviewed by: Az Ann MA - Fully AssessedOrder(s):SURGICAL REQUEST - ELECTIVE [[id number]] Order #: [id number]: 1Prescriptions as of 09/12/2017 Sig: POTASSIUM CITRATE ER 10 MEQ (* 10 mEq. TAMSULOSIN 0.4 MG CAPSULE 0.4 mg. OXYBUTYNIN CHLORIDE 5 MG TABL* 5 mg. LOSARTAN 25 MG TABLET Take 25 mg by mouth once nella* LEVOFLOXACIN 500 MG TABLET 500 mg. MULTIVITAMIN TABLET Take 1 tablet by mouth once d*Problem List As Of Date 09/12/2017 Noted Resolved Calculus, kidney [N20.0] INVALID FOR* Calculus of ureter [N20.1] INVALID FOR* Right flank pain [R10.9] INVALID FOR* Essential hypertension [I10] INVALID FOR* Family history of nephrolithiasis [Z84.1] INVALID FOR* Family history of hyperparathyroidism [Z83.49] INVALID FOR* Low vitamin D level [E55.9] INVALID FOR* Abnormal urinalysis [R82.90] INVALID FOR* Calculus of kidney [N20.0] INVALID FOR* More...Follow-up and Disposition History RecordedEncounter Number: [id number] Status:Closed by ASHTYN RABAGO on 09/12/17 [facility] Patient:Darrell Nelson LMRN: Height:5' 10 (1.778 m)Weight:175 lb (79.379 kg)Outpatient Medications as of 10/11/17:potassium citrate ER (UROCIT-K) 10 mEq (1,080 mg) TbERtamsulosin ER (FLOMAX) 0.4 mg oz94yynbapvm (COZAAR) 25 mg tabletmultivitamin tabletAdmission/Clinic Administered Medications as of 10/11/17:0.9% NaCl 2-10 mLlactated ringers infusionceFAZolin 2 g in dextrose (iso-osmotic) 100 mL (ANCEF, KEFZOL)Problem List:Calculus, kidney [N20.0]Calculus of ureter [N20.1]Right flank pain [R10.9]Essential hypertension [I10]Family history of nephrolithiasis [Z84.1]Family history of hyperparathyroidism [Z83.49]Low vitamin D level [E55.9]Abnormal urinalysis [R82.90]Calculus of kidney [N20.0]Allergies:No Known AllergiesDate Verified:10/11/17Lab ValuesLab Value Units Date High LowPOTA* 4.0 mmol/L 09/12/2017 5.1 3.7HEMA* 43.7 % 09/12/2017 51.0 39.0Progress Notes ([facility] MAIN):Feliciano Schroeder MD 09/12/2017 7:38 PM SignedBasic HPI: 67 year old male who comes in for kidney stone management. Patienthas a history of kidney stones for over 20 years. [facility] 1.5 years [facility]. Patient has had calcium oxalate stones, butcurrent stones are suspected to be uric acid. Patient had blood work yesterdayin regards to uric acid, but does not know the results. Patient is currentlytaking urocit-k for the last 4-5 years, but it was not for uric acid stones.Patient's brothers had kidney stones and both with parathyroid disease. Motheris DM. No family history of gout. Patient recently had right stent placed forobstructing stones last week. Tolerating stent well. ======GUROS: UA:Component Latest Ref Rng AND Units 09/12/2017Color Yellow YellowClarity Clear Cloudy (A)Glucose, Urine Negative mg/dL NegativeBilirubin, Urine Negative NegativeKetones, Urine Negative 1+ (A)Specific [place], Ur 1.005 - 1.030 1.016Hemoglobin/Blood,Ur Negative 2+ (A)pH, Urine 4.5 - 8.0 7.0Protein, Urine Negative mg/dL 30 (A)Urobilinogen Normal NormalNitrites Negative NegativeLeukest Negative 3+ (A)Comments SEE COMMENTWBC, Urine 0 - 5 /HPF >25 (A)RBC, Urine 0 - 3 /HPF >25 (A)Epithelial Cells /HPF SEE COMMENTUrine Kelby Comment SEE COMMENTForce of Stream: moderateNOCTURIA: Yes: 5-6 times /nightDay Time Frequency: 2hrHesitancy: NoIntermittency: NoIncomplete Emptying: NoPost void Dribbling: Yes:Urinary Retention Hx:NoDouble Voiding: Yes:Urgency: Yes:Dysuria: NoIncontinence history: No, but is wearing a depends due to stentGross hematuria history: NoUTI Hx: Yes: currently on levaquinStone Event Hx: Yes: ESWL 1 year agoReview, other organ system:GI:Blood: NoConstipation: NoDiarrhea: Yes, from atbNausea/Vomiting: NoREVIEW OF SYSTEMSPAIN ASSESSMENT: Negative for pain, history of chronic pain, or currenttreatment for a chronic pain condition.GENERAL: No weight loss, malaise or feversRESPIRATORY: Negative for cough, hemoptysis, wheezing, COPD, dyspnea orshortness of breathCARDIOVASCULAR: HypertensionGI: No nausea, vomiting, or diarrheaGU: hx of stonesENDOCRINE: Negative for cold or heat intolerance, polyuria, polydipsia andgoiterNEURO: No history of headaches, syncope, paralysis, seizures or tremorsOTHER: patient presents for surgical consultSara ALE Rabago UROLOGY NOTE:I personally interviewed the patient, examined, confirmed and edited the historythat was documented by Ms Cnoner RN and ancillary personnel.Consultation requested by Dr. Llanes for an opinion regarding large stone burdenright UPJ and upper right ureter per outside CT (reviewed in depth). My finalrecommendations will be communicated back to the requesting physician by way ofshared Medical record or letter to requesting physician via US mail.Patient with 2 large stones (I measure them at 18 mm for right UPJ stone and 15mm for right upper ureteral stone) currently drained with a JJ stent (placedlast week by Dr. Llanes). Not much discomfort from the stent at this time.Interesting FH in that 2 brothers had hyperparathyroidism and stones. Patienthas essential hypertension and believes low vit D in the past. Patient has someLUTS with nocturia and some urge incontinence from the stent. U/A is verycellular and culture was sent.Imp: The primary encounter diagnosis was Calculus, kidney. Diagnoses of Calculusof ureter, Right flank pain, Essential hypertension, Family history ofnephrolithiasis, Family history of hyperparathyroidism, Low vitamin D level, andAbnormal urinalysis were also pertinent to this visit.Plan: Right PCNL; will set up for 10/11/17. Consent done and booklet given. Allquestions answered. Metabolic w/u and night time hydration protocol.I spent >40 minutes in this visit (including reviewing x-rays and records pluspatient discussion), with more than 50% of the total iefh-yo-cdky time of thevisit devoted to patient counseling/coordination of care.Feliciano Schroeder, MDDirector, Surgical Stone Disease, [facility] Urologic InstituteProfessor of Surgery, [facility] Health SystemPager [phone]/12/2017Previous VersionHeisabela Ozuna CNP 09/12/2017 7:38 PM SignedUROLOGY SURGICAL HANDPSERVICE DATE: 09/12/2017REFERRING PROVIDER: Cleveland Llanes MD[address] [facility] [id number]: No PcpGENDER:SUBJECTIVECHIEF COMPLAINT: Pre-op examHISTORY OF PRESENT ILLNESS: Mr. Nelson is a 67 year old male who presents for preop eval. Denies renal colic, fever, chills, n/v dysuria or gross hematuria. Pthad stent placed on Monday09/08/17FUNCTIONAL STATUS: Walk a block or two on level ground (2.75 METs)Do moderate work around the house such as vacuuming, sweeping floors, orcarrying in groceries (3.50 METs)Do yardwork, such as raking leaves, weeding,or pushing a power mower (4.50 METs)No past medical history on file.No past surgical history on file.No family history on file.Social HistorySubstance Use Topics- Smoking status: Never Smoker- Smokeless tobacco: Never Used- Alcohol use NoREVIEW OF SYSTEMS:General: General: Well developed, well nourished. No acute distressHEENT: Negative for sore throat, difficulty swallowing.Negative for frequent or significant headaches, changes in vision or hearing.Cardiovascular: No history of cardiovascular symtoms or problems.No history of angina, CHF, [place], cardiac surgery of stents.Respiratory: Negative for current cough, dyspnea. No hx of pneumonia in the pastsix weeksPositive: PND, sinus drainage from allergiesGastrointestinal: No history of GERD, PUD, abd pain, difficulty swallowing, GIbleed.Renal: +stonesMusculoskeletal: Negative for joint pain or swelling, back pain or muscle pain.Skin: Negative for lesions, rash and itching.Psychological: No history of psychiatric symptoms or problems.Neurologic: No history of TIA's, stroke, GEOSPATIAL SPECIALIST tumor, impaired sensorium,hemiplegia, paraplegia or quadriplegia. No neurological symptoms or problems.Hematology/Oncology: No history of bleeding or clotting disorder. Pt is nottaking anti-coagulation or platelet medications. No history of hematologicalsymptoms or problems.Endocrine: No history of endocrinological symtoms or problemsNo history of DM; has not taken steroids w/in past 30 days.Negative for excessive sweating, thirst or hungerPHYSICAL EXAM:General Appearance/ Constitutional: Well developed, well nourished, and in noapparent distressHead and Neck normal, no jugular venous extension, no thyromegaly and nopalpable massEyes: EOM intact, eyes clearRespiratory: Clear to ausculationCardiovascular: Normal, Regular rate and rhythm and No murmursGI: Soft, Non-tender and No masses, hepatosplenomegalyExtremities: Radial pulses intact, no edema notedBack: Normal back and mobilityNeurological: Normal cognition and motor skills.Skin: Color, texture, turgor normal.VITALS:BP 169/91 Pulse 82 Ht 177.8 cm (5' 10 ) Wt 79.4 kg (175 lb) BMI 25.11kg/c8Mwksybsagwt Max: @TMAXREFRESH(24)@ALLERGIES:ISIS RGIESNo Known AllergiesLABS:No results found for: David results found for: Marc results found for: PSAGlucose, Urine (mg/dL)Date Value09/12/2017 Negative Bilirubin, Urine (no units)Date Value09/12/2017 Negative Ketones, Urine (no units)Date Value09/12/2017 1+ (A) Specific [place], Ur (no units)Date Value09/12/2017 1.016 Hemoglobin/Blood ,Ur ( )Date Value09/12/2017 2+ (A) pH, Urine (no units)Date Value09/12/2017 7.0 Protein, Urine (mg/dL)Date Value09/12/2017 30 (A) Nitrites (no units)Date Value09/12/2017 Negative WBC, Urine (/HPF)Date Value09/12/2017 >25 (A) Color (no units)Date Value09/12/2017 Yellow Clarity (no units)Date Value09/12/2017 Cloudy (A) MEDICATIONS:(Not in a hospital admission)Current Outpatient Prescriptions:multivitamin tablet Take 1 tablet by mouth once daily.potassium citrate ER (UROCIT-K) 10 mEq (1,080 mg) TbER 10 mEq.tamsulosin ER (FLOMAX) 0.4 mg cp24 0.4 mg.oxybutynin (DITROPAN) 5 mg tablet 5 mg.losartan (COZAAR) 25 mg tablet Take 25 mg by mouth once daily.levoFLOXacin (LEVAQUIN) 500 mg tablet 500 mg.No current facility-administered medications for this visit.DIAGNOSIS, ASSESSMENT AND PLANThere are no active hospital problems to display for this patient.Assessment AND Plan:N20.0 Calculus, kidney (primary encounter diagnosis)N20.1 Calculus of gpvvcnQ38.9 Right flank painI10 Essential eifhwlcmiygpJ15.1 Family history of fujaghkejecwbujX96.49 Family history of vylothlqkqgbynorytcZ98.9 Low vitamin D xcgsgN98.90 Abnormal urinalysisSELECT [facility] UROLOGICAL AND KIDNEY INSTITUTEPRE-OP NOTEDate of Procedure: 10/11/17Procedure/Surgery: PCNLDiagnosis: stonesPrimary Surgeon: Leeannequest Score: 2Pain Assessment: Are you currently having pain? Yes PAIN SCALE: 1 on a scaleof 0-10Surgical Guide Book Status: Patient reviewed book.Dialysis Guide Book Status: N/AAllergies Reviewed: YesMedications Reviewed: YesIs patient currently on oral steroids?: NoHas the patient had a UTI in the past month?: Yes. Antibiotic taken: levaquinDoes the patient have any artificial joints (last 2 years), metal parts,pacemakers or cardiac/ureteral stents in place?: Yes, ureteral stentDoes the patient have diabetes?: NoIs the patient routinely taking anticoagulants?: No.Can the patient have an IV put in either arm?: YesUrine Dip Complete?: YesURINE CULTURE COMPLETE?: YesIMPACT/Medical Clearance: Cleared per IMPACT - NoPACE Clinic: Cleared per PACE - NoChaparro testing on cureform has been scheduled: YesConsent Signed: Yes.DOS Orders Placed and Signed: Pended. Physician will sign and release.Pre-op HANDP Done by Nurse Practitioner: Yes.PATIENT INSTRUCTIONS FOR SURGERY1.) DO NOT HAVE ANYTHING TO EAT OR DRINK AFTER MIDNIGHT THE DAY BEFORE SURGERYexcept for certain morning medications as instructed by the doctor. Candy,mints, gum, and smoking are NOT permitted. If the surgery is scheduled for theafternoon, you may have water during the morning of surgery if permitted by yoursurgeon.2.) Medications to be taken on the morning of surgery with a few sips of water:Per discussion3.) Please bring all your prescribed inhalers (if you have any you normallytake) to the hospital.4.) Arrival time: Call for arrival.5.) Prep given: No6.) Lovenox instructions given: No7.) Patient reminded that surgery time provided day before surgery is tentativebased on potential changes with transplants.Recommendations: This patient is optimally prepared for surgery pending LABSand ucx.Bonita Ozuna CNPElectronically signedSIGNATURE: Bonita Ozuna CNP PATIENT NAME: Darrell ElizaldeATE: September 12, 2017 : 11:45 AM PAGER[facility]CONTA[facility] PROGRESSon 09-12-2017 PROGRESS HNO ID: [id number] thor: Feliciano KumarbleService: (none)Author Type: PhysicianType: Progress NotesFiled: 09/12/2017 7:38 PMNote Text:Basic HPI: 67 year old male who comes in for kidney stone management.Patient has a history of kidney stones for over 20 years. Patient has hadESWL in the past. Last ESWL 1.5 years ago. Patient has had calcium oxalatestones, but current stones are suspected to be uric acid. Patient hadblood work yesterday in regards to uric acid, but does not know theresults. Patient is currently taking urocit-k for the last 4-5 years, butit was not for uric acid stones. Patient's brothers had kidney stones andboth with parathyroid disease. Mother is DM. No family history of gout.Patient recently had right stent placed for obstructing stones last week.Tolerating stent well. ======GUROS: UA:Component Latest Ref Rng AND Units 09/12/2017Color Yellow YellowClarity Clear Cloudy (A)Glucose, Urine Negative mg/dL NegativeBilirubin, Urine Negative NegativeKetones, Urine Negative 1+ (A)Specific [place], Ur 1.005 - 1.030 1.016Hemoglobin/Blood,Ur Negative 2+ (A)pH, Urine 4.5 - 8.0 7.0Protein, Urine Negative mg/dL 30 (A)Urobilinogen Normal NormalNitrites Negative NegativeLeukest Negative 3+ (A)Comments SEE COMMENTWBC, Urine 0 - 5 /HPF >25 (A)RBC, Urine 0 - 3 /HPF >25 (A)Epithelial Cells /HPF SEE COMMENTUrine Kelby Comment SEE COMMENTForce of Stream: moderateNOCTURIA: Yes: 5-6 times /nightDay Time Frequency: 2hrHesitancy: NoIntermittency: NoIncomplete Emptying: NoPost void Dribbling: Yes:Urinary Retention Hx:NoDouble Voiding: Yes:Urgency: Yes:Dysuria: NoIncontinence history: No, but is wearing a depends due to stentGross hematuria history: NoUTI Hx: Yes: currently on levaquinStone Event Hx: Yes: ESWL 1 year agoReview, other organ system:GI:Blood: NoConstipation: NoDiarrhea: Yes, from atbNausea/Vomiting: NoREVIEW OF SYSTEMSPAIN ASSESSMENT: Negative for pain, history of chronic pain, or currenttreatment for a chronic pain condition.GENERAL: No weight loss, malaise or feversRESPIRATORY: Negative for cough, hemoptysis, wheezing, COPD, dyspnea orshortness of breathCARDIOVASCULAR: HypertensionGI: No nausea, vomiting, or diarrheaGU: hx of stonesENDOCRINE: Negative for cold or heat intolerance, polyuria, polydipsia andgoiterNEURO: No history of headaches, syncope, paralysis, seizures or tremorsOTHER: patient presents for surgical consultSara ALE Rabago UROLOGY NOTE:I personally interviewed the patient, examined, confirmed and edited thehistory that was documented by Ms Conner RN and ancillary personnel.Consultation requested by Dr. Llanes for an opinion regarding large stoneburden right UPJ and upper right ureter per outside CT (reviewed indepth). My final recommendations will be communicated back to therequesting physician by way of shared Medical record or letter torequesting physician via US mail.Patient with 2 large stones (I measure them at 18 mm for right UPJ stoneand 15 mm for right upper ureteral stone) currently drained with a JJstent (placed last week by Dr. Llanes). Not much discomfort from the stentat this time. Interesting FH in that 2 brothers had hyperparathyroidismand stones. Patient has essential hypertension and believes low vit D inthe past. Patient has some LUTS with nocturia and some urge incontinencefrom the stent. U/A is very cellular and culture was sent.Imp: The primary encounter diagnosis was Calculus, kidney. Diagnoses ofCalculus of ureter, Right flank pain, Essential hypertension, Familyhistory of nephrolithiasis, Family history of hyperparathyroidism, Lowvitamin D level, and Abnormal urinalysis were also pertinent to thisvisit.Plan: Right PCNL; will set up for 10/11/17. Consent done and bookletgiven. All questions answered. Metabolic w/u and night time hydrationprotocol.I spent >40 minutes in this visit (including reviewing x-rays and recordsplus patient discussion), with more than 50% of the total ozce-ky-fbtzyeay of the visit devoted to patient counseling/coordination of care.Feliciano Schroeder, MDDirector, Surgical Stone Disease, [facility] Urologic InstituteProfessor of Surgery, [facility] SystemPager [phone]/12/2017 Normal [facility] PTH, Intacton 09-12-2017 PTH, Intact 26 pg/mL Normal 15-65 [facility] Comment on above: Performed By: #### I CA, CBCDIF, VITD, PTHI, CMP, URIC ####[place] [id number] [place], [place] [phone] Type and SCR (30D)on 017 ABO/RH(D) Positive Normal [facility] Comment on above: Performed By: #### T SCR30 ####[facility] [place], [place] [phone] Antibody Screen Negative Normal [facility] Comment on above: Performed By: #### T SCR30 ####[place] [id number] [place], [place] [phone] Uric Acidon 09-12-2017 Urate 4.9 mg/dL Normal 4.0-8.1 [facility] Comment on above: Performed By: #### I CA, CBCDIF, VITD, PTHI, CMP, URIC ####[facility] [address] [place], [place] [phone] Urinalysison 09-12-2017 Bilirubin, Urine Negative Normal Negative [facility] Comment on above: Performed By: #### U A ####[place] [address] [address] [place] [phone] Comments SEE COMMENT Normal [facility] Comment on above: Result Comment: Micr oscopic Examination Performed Performed By: #### U A ####[place] [address] [place] [phone] Erythrocytes (RBC) 10*6/uL Critically abnormal 0-3 [facility] Comment on above: Performed By: #### U A ####[place] [address] [place] [phone] Hemoglobin mass conc (Bld) 2+ Critically abnormal Negative [facility] Comment on above: Performed By: #### U A ####[place] [address] [place] [place] [phone] Leukest 3+ Critically abnormal Negative [facility] Comment on above: Performed By: #### U A ####[place] [address] [place] [phone] pH of blood 7.0 [pH] Normal 4.5-8.0 [facility] Comment on above: Performed By: #### U A ####[place] [address] [place] [phone] Protein, Urine 30 mg/dL Critically abnormal Negative [facility] Comment on above: Performed By: #### U A ####[place] [address] [place] [place] [phone] Specific [place], Ur 1.016 Normal 1.005-1.03 0 [facility] Comment on above: Performed By: #### U A ####[place] [address] [place] [phone] Urine Kelby Comment SEE COMMENT Normal [facility] Comment on above: Result Comment: N/A Performed By: #### U A ####[facility], [place] [phone] Urine, clarity Cloudy Critically abnormal Clear [facility] Comment on above: Performed By: #### U A ####[place] [id number] [facility], [place] [phone] Urine, color Yellow Normal Yellow [facility] Comment on above: Performed By: #### U A ####[place] [address] [address] [facility], [place] [phone] Urine, epithelial cells in sediment SEE COMMENT Normal [facility] Comment on above: Result Comment: FewS quamous Epithelial Cells Performed By: #### U A ####[place] [address] [address] [facility], [place] [phone] Urine, glucose presence Negative Normal Negative [facility] Comment on above: Performed By: #### U A ####[place] [address] [address] [facility], [place] [phone] Urine, ketones presence 1+ Critically abnormal Negative [facility] Comment on above: Performed By: #### U A ####[place] [address] [address] [facility], [place] [phone] Urine, nitrite presence Negative Normal Negative [facility] Comment on above: Performed By: #### U A ####[place] [address] [address] [facility], [place] [phone] Urine, urobilinogen Normal Normal Normal [facility] Comment on above: Performed By: #### U A ####[place] [address] [address] [phone] WBC (Leukocytes) 10*3/uL Critically abnormal 0-5 [facility] Comment on above: Performed By: #### U A ####[place] [address] [address] [phone] Urine Cultureon 12-12-2017 Urine culture, bacteria Sp. Request/Comment: - Specimen received in preservative Culture Result - No growth (<1,000 CFU/ml) Normal [facility] Comment on above: Performed By: #### U RCUL ####[facility] [address] [place], [place] [phone] Vitamin D 25 Hydroxyon 09-12 Vitamin D 25 Hydroxy 38.6 ng/mL Normal 31.0-80.0 [facility] Comment on above: Result Comment: Clas sification of 25 [place] Vitamin D status:Insufficiency/Moderate Deficiency: < or = 30 ng/mLSufficiency/Optimal Levels: 31 to 80 ng/mLToxicity: > 100 ng/mLTest performed by chemiluminescent immunoassay. Performed By: #### I CA, CBCDIF, VITD, PTHI, CMP, URIC ####[facility] [place], [place] [phone] SR-CT Abdomen/Pelvis w/o Con trast IMPORTon 09-07-2017 SR-CT Abdomen/Pelvis w/o Contrast IMPORT Images were obtained outside of [facility] [id number] Normal [facility] Vital Signs Date Time Vital Sign Value Performing Clinician Facility 08-23-2023 08:30-0500 Blood Pressure Location [facility] [facility] 08-23-2023 08:30-0500 Diastolic blood pressure 91 mm[Hg] [facility] 08-23-2023 08:30-0500 Heart rate 88 /min [facility] [facility] 08-23-2023 08:30-0500 Respiratory rate 16 /min [facility] [facility] 08-23-2023 08:30-0500 Systolic blood pressure 151 mm[Hg] [employer] [facility] 08-07-2023 08:45-0500 Body height 172.72 cm Abigail Sanchez Other [employer] Other 08-07-2023 08:45-0500 Body mass index (BMI) [Ratio] 25.18 kg/m2 Abigail Sanchez Other [employer] Other 08-07-2023 08:45-0500 Body weight 75.12 kg Abigail Sanchez Other [employer] Other 08-07-2023 08:45-0500 Diastolic blood pressure 73 mm[Hg] Abigail Sanchez Other [employer] Other 08-07-2023 08:45-0500 SaO2% (BldA) [Mass fraction] 99 % Abigail Sanchez Other [employer] Other 08-07-2023 08:45-0500 Systolic blood pressure 165 mm[Hg] Abigail Sanchez Other [employer] Other 11-17-2022 09:30-0500 Body height 172.72 cm Abigail Sanchez Other [employer] Other 11-17-2022 09:30-0500 Body mass index (BMI) [Ratio] 27.82 kg/m2 Abigail Sanchez Other [employer] Other 11-17-2022 09:30-0500 Body weight 83.01 kg Abigail Sanchez Other [employer] Other 11-17-2022 09:30-0500 Diastolic blood pressure 82 mm[Hg] Abigail Sanchez Other [employer] Other 11-17-2022 09:30-0500 SaO2% (BldA) [Mass fraction] 97 % Abigail Sanchez Other [employer] Other 11-17-2022 09:30-0500 Systolic blood pressure 140 mm[Hg] Abigail Sanchez Other [employer] Other 07-26-2022 13:18-0400 Blood Pressure Location [facility] [place] 07-26-2022 13:18-0400 Diastolic blood pressure 98 mm[Hg] Dharmesh NILL [facility] [place] 07-26-2022 13:18-0400 Heart rate 72 /min Dharmesh NILL [facility] [place] 07-26-2022 13:18-0400 Respiratory rate 16 /min Dharmesh NILL General Surgery [place] 07-26-2022 13:18-0400 Systolic blood pressure 138 mm[Hg] Dharmesh NILL [employer] [facility] [place] Encounters Encounter Date Encounter Type Care Provider Facility Start: 03-20-2024 ambulatory Rock LUJAN Facility :[facility] Start: 08-23-2023 End: 08-24-2023 ambulatory Laura X Phong Facility:[facility] Start: 08-23-2023 End: 08-23-2023 Patient encounter procedure Laura X Orzech [facility] Start: 08-11-2023 End: 08-11-2023 ambulatory Abigail Sanchez Other [employer] Other Start: 08-11-2023 Telephone encounter Abigail Sanchez [facility] Start: 08-07-2023 End: 08-07-2023 ambulatory Abigail Sanchez Other [employer] Other Start: 08-07-2023 Office outpatient vi sit 15 minutes Abigail Sanchez [facility] Start: 02-15-2023 End: 02-16-2023 ambulatory Rock LUJAN Facility:[facility] Start: 02-08-2023 End: 02-09-[address] ROCK LUJAN Facility:[facility] Start: 11-17-2022 End: 11-17-2022 ambulatory Abigail Sanchez Other [employer] Other Start: 11-17-2022 Encounter for other preprocedural examination Abigail Sanchez [facility] Start: 11-17-2022 Office outpatient vi sit 15 minutes Abigail Sanchez [facility] Start: 11-03-2022 End: 11-04-[address] DENISHA GARCIA Facility:[facility] Start: 10-18-2022 End: 10-19-[facility] 10-18-2022 End: 10-18-2022 ambulatory [facility] Start: 09-13-2022 End: 09-14-2022 ambulatory Dharmesh WALTERS Facility:[facility] Start: 08-31-2022 Encounter for preprocedural laboratory examination DR DHARMESH WALTERS . [facility] Start: 08-31-2022 End: 08-31-[address] DHARMESH WALTERS . Facility: Start: 08-26-2022 End: 08-27-[address] DHARMESH WALTERS . Facility:[facility] Start: 08-26-2022 End: 08-27-2022 Encounter for preprocedural laboratory examination DR DHARMESH WALTERS . Facility:[facility] Start: 07-26-2022 End: 07-26-2022 Patient encounter procedure Dharmesh WALTERS [facility] Start: 06-30-2022 Adult health examination Gricelda Sanchez Other [employer] Other Start: 06-28-2022 End: 06-29-[address] ABIGAIL SANCHEZ Facility:[facility] Start: 04-27-2022 End: 04-27-2022 Patient encounter procedure Rock LUJAN [facility] Start: 04-20-2022 End: 04-21-[address] ROCK LUJAN Facility:[facility] Start: 10-21-2017 End: 10-22-2017 Ambulatory ALEXA GARCIA [facility] Start: 10-13-2017 End: 10-13-2017 Ambulatory FELICIANO SCHROEDER [facility] Start: 10-11-2017 End: 10-13-2017 Ambulatory FELICIANO SCHROEDER [facility] Start: 09-12-2017 End: 09-12-2017 Ambulatory FELICIANO SCHROEDER [facility] Start: 09-12-2017 End: 09-18-2017 Ambulatory FELICIANO SCHROEDER [facility] Procedures Date Procedure Procedure Detail Performing Clinician Start: 08-31-2022 Colonoscopy Laura Findline Start: 08-31-2022 Esophagogastroduodenoscopy Laura DykesBevii Start: 04-12-2019 Screening for malignant neoplasm of prostate Abigail Sanchez Other Start: 10-11-2017 Removal of calculus of renal pelvis through percutaneous nephrostomy Rock KARLEE Start: 10-02-2017 Cystoscopic removal of ureteric stent Rock KARLEE Start: 01-13-2016 Cysto, right RGP, right JJ stent Rock KARLEE Start: 09-16-2015 Neck Surgery Rock KARLEE Bilateral hernia repair Martin LUJAN Bilateral inguinal hernia repair Dharmesh WALTERS Cholecystectomy Rock LUJNA Colonoscopy Dharmesh NILL History of surgical procedure on cervical spine Dharmesh NILL History of surgical procedure on cervical spine Dharmesh NILL Sinus Surgery Rock LUJAN Immunizations Immunization Date Immunization Notes Care Provider Fabiola chandlerderek 08-16-2021 COVID-19 Vaccine Pfizer - Documentation Purposes Only Abigail Sanchez Other [facility] 01-07-2021 COVID-19 Vaccine Pfizer - Documentation Purposes Only Abigail Sanchez Other [facility] 12-17-2020 SARS-CoV-2 (COVID-19 ) mRNA BNT-162b2 vax [employer] [facility] NEGATED: Highlighted row has not occurred!08-23-2023 influenza virus vaccine, unspecified formulation [employer] [facility] Payers Date Payer Category Payer Medicare [id number] 1950 Unknown [id number] 2.16.84 [id number] 1950 Unknown [id number] 2.16.84 [id number] 1950 Unknown [id number] 2.16.84 [id number] 1950 Unknown [id number] 2.16.84 [id number] 1950 Unknown [id number] 2.16.84 [id number] 1950 Unknown [id number] 2.16.84 [id number] 1950 Unknown [id number] 2.16.8 [id number] 1950 Unknown [id number] 2.16.8 [id number] 1950 Unknown [id number] 2.16.8 [id number] 1950 Unknown [id number] 2.16.8 [id number] Social History Date Type Detail Facility Start: 04-27-2022 End: 07-26-2022 Tobacco smoking status Never smoked tobacco (finding) [facility] Tobacco smoking status Never [facility] Sex Assigned At Male [facility] Functional Status Date Assessment Result Facility 08-23-2023 Functional Status N/A [facility] 07-26-2022 Functional Status N/A [facility] Functional Status N/A [facility] Clinical Notes 04-27-2022 to 08-23-2023 Note Date & Type Note Facility 08-23-2023 Hospital Discharge instructions Patient Education 08/23/2023 11:10:27 Benign Prostatic Hyperplasia Benign Prostatic Hyperplasia Benign prostatic hyperplasia (BPH) is an enlarged prostate gland that is caused by the normal aging process. The prostate may get bigger as a man gets older. The condition is not caused by cancer. The prostate is a walnut-sized gland that is involved in the production of semen. It is located in front of the rectum and below the bladder. The bladder stores urine. The urethra carries stored urine out of the body. An enlarged prostate can press on the urethra. This can make it harder to pass urine. The buildup of urine in the bladder can cause infection. Back pressure and infection may progress to bladder damage and kidney (renal) failure. What are the causes? This condition is part of the normal aging process. However, not all men develop problems from this condition. If the prostate enlarges away from the urethra, urine flow will not be blocked. If it enlarges toward the urethra and compresses it, there will be problems passing urine. What increases the risk? This condition is more likely to develop in men older than 50 years. What are the signs or symptoms? Symptoms of this condition include: Getting up often during the night to urinate. Needing to urinate frequently during the day. Difficulty starting urine flow. Decrease in size and strength of your urine stream. Leaking (dribbling) after urinating. Inability to pass urine. This needs immediate treatment. Inability to completely empty your bladder. Pain when you pass urine. This is more common if there is also an infection. Urinary tract infection (UTI). How is this diagnosed? This condition is diagnosed based on your medical history, a physical exam, and your symptoms. Tests will also be done, such as: A post-void bladder scan. This measures any amount of urine that may remain in your bladder after you finish urinating. A digital rectal exam. In a rectal exam, your health care provider checks your prostate by putting a lubricated, gloved finger into your rectum to feel the back of your prostate gland. This exam detects the size of your gland and any abnormal lumps or growths. An exam of your urine (urinalysis). A prostate specific antigen (PSA) screening. This is a blood test used to screen for prostate cancer. An ultrasound. This test uses sound waves to electronically produce a picture of your prostate gland. Your health care provider may refer you to a specialist in kidney and prostate diseases (urologist). How is this treated? Once symptoms begin, your health care provider will monitor your condition (active surveillance or watchful waiting). Treatment for this condition will depend on the severity of your condition. Treatment may include: Observation and yearly exams. This may be the only treatment needed if your condition and symptoms are mild. Medicines to relieve your symptoms, including: ?Medicines to shrink the prostate. ?Medicines to relax the muscle of the prostate. Surgery in severe cases. Surgery may include: ?Prostatectomy. In this procedure, the prostate tissue is removed completely through an open incision or with a laparoscope or robotics. ?Transurethral resection of the prostate (TURP). In this procedure, a tool is inserted through the opening at the tip of the penis (urethra). It is used to cut away tissue of the inner core of the prostate. The pieces are removed through the same opening of the penis. This removes the blockage. ?Transurethral incision (TUIP). In this procedure, small cuts are made in the prostate. This lessens the prostate's pressure on the urethra. ?Transurethral microwave thermotherapy (TUMT). This procedure uses microwaves to create heat. The heat destroys and removes a small amount of prostate tissue. ?Transurethral needle ablation (TUNA). This procedure uses radio frequencies to destroy and remove a small amount of prostate tissue. ?Interstitial laser coagulation (ILC). This procedure uses a laser to destroy and remove a small amount of prostate tissue. ?Transurethral electrovaporization (TUVP). This procedure uses electrodes to destroy and remove a small amount of prostate tissue. ?Prostatic urethral lift. This procedure inserts an implant to push the lobes of the prostate away from the urethra. Follow these instructions at home: Take kbvi-hhh-rfedral and prescription medicines only as told by your health care provider. Monitor your symptoms for any changes. Contact your health care provider with any changes. Avoid drinking large amounts of liquid before going to bed or out in public. Avoid or reduce how much caffeine or alcohol you drink. Give yourself time when you urinate. Keep all follow-up visits. This is important. Contact a health care provider if: You have unexplained back pain. Your symptoms do not get better with treatment. You develop side effects from the medicine you are taking. Your urine becomes very dark or has a bad smell. Your lower abdomen becomes distended and you have trouble passing urine. Get help right away if: You have a fever or chills. You suddenly cannot urinate. You feel light-headed or very dizzy, or you faint. There are large amounts of blood or clots in your urine. Your urinary problems become hard to manage. You develop moderate to severe low back or flank pain. The flank is the side of your body between the ribs and the hip. These symptoms may be an emergency. Get help right away. Call 911. Do not wait to see if the symptoms will go away. Do not drive yourself to the hospital. Summary Benign prostatic hyperplasia (BPH) is an enlarged prostate that is caused by the normal aging process. It is not caused by cancer. An enlarged prostate can press on the urethra. This can make it hard to pass urine. This condition is more likely to develop in men older than 50 years. Get help right away if you suddenly cannot urinate. This information is not intended to replace advice given to you by your health care provider. Make sure you discuss any questions you have with your health care provider. Document Revised: 04/06/2022 Document Reviewed: 04/06/2022 [employer] Patient Education 2022 [employer]. 08/23/2023 11:10:20 Prostate Cancer Screening Prostate Cancer Screening Prostate cancer screening is testing that is done to check for the presence of prostate cancer in men. The prostate gland is a walnut-sized gland that is located below the bladder and in front of the rectum in males. The function of the prostate is to add fluid to semen during ejaculation. Prostate cancer is one of the most common types of cancer in men. Who should have prostate cancer screening? Screening recommendations vary based on age and other risk factors, as well as between the professional organizations who make the recommendations. In general, screening is recommended if: You are age 50 to 70 and have an average risk for prostate cancer. You should talk with your health care provider about your need for screening and how often screening should be done. Because most prostate cancers are slow growing and will not cause , screening in this age group is generally reserved for men who have a 10- to 15-year life expectancy. You are younger than age 50, and you have these risk factors: ?Having a father, brother, or uncle who has been diagnosed with prostate cancer. The risk is higher if your family member's cancer occurred at an early age or if you have multiple family members with prostate cancer at an early age. ?Being a male who is Black or is of Jaime or sub-Saharan descent. In general, screening is not recommended if: You are younger than age 40. You are between the ages of 40 and 49 and you have no risk factors. You are 70 years of age or older. At this age, the risks that screening can cause are greater than the benefits that it may provide. If you are at high risk for prostate cancer, your health care provider may recommend that you have screenings more often or that you start screening at a younger age. How is screening for prostate cancer done? The recommended prostate cancer screening test is a blood test called the prostate-specific antigen (PSA) test. PSA is a protein that is made in the prostate. As you age, your prostate naturally produces more PSA. Abnormally high PSA levels may be caused by: Prostate cancer. An enlarged prostate that is not caused by cancer (benign prostatic hyperplasia, or BPH). This condition is very common in older men. A prostate gland infection (prostatitis) or urinary tract infection. Certain medicines such as male hormones (like testosterone) or other medicines that raise testosterone levels. A rectal exam may be done as part of prostate cancer screening to help provide information about the size of your prostate gland. When a rectal exam is performed, it should be done after the PSA level is drawn to avoid any effect on the results. Depending on the PSA results, you may need more tests, such as: A physical exam to check the size of your prostate gland, if not done as part of screening. Blood and imaging tests. A procedure to remove tissue samples from your prostate gland for testing (biopsy). This is the only way to know for certain if you have prostate cancer. What are the benefits of prostate cancer screening? Screening can help to identify cancer at an early stage, before symptoms start and when the cancer can be treated more easily. There is a small chance that screening may lower your risk of dying from prostate cancer. The chance is small because prostate cancer is a slow-growing cancer, and most men with prostate cancer from a different cause. What are the risks of prostate cancer screening? The main risk of prostate cancer screening is diagnosing and treating prostate cancer that would never have caused any symptoms or problems. This is called overdiagnosisand overtreatment. PSA screening cannot tell you if your PSA is high due to cancer or a different cause. A prostate biopsy is the only procedure to diagnose prostate cancer. Even the results of a biopsy may not tell you if your cancer needs to be treated. Slow-growing prostate cancer may not need any treatment other than monitoring, so diagnosing and treating it may cause unnecessary stress or other side effects. Questions to ask your health care provider When should I start prostate cancer screening? What is my risk for prostate cancer? How often do I need screening? What type of screening tests do I need? How do I get my test results? What do my results mean? Do I need treatment? Where to find more information The [employer]: www.cancer.org [employer]: www.auanet.org Contact a health care provider if: You have difficulty urinating. You have pain when you urinate or ejaculate. You have blood in your urine or semen. You have pain in your back or in the area of your prostate. Summary Prostate cancer is a common type of cancer in men. The prostate gland is located below the bladder and in front of the rectum. This gland adds fluid to semen during ejaculation. Prostate cancer screening may identify cancer at an early stage, when the cancer can be treated more easily and is less likely to have spread to other areas of the body. The prostate-specific antigen (PSA) test is the recommended screening test for prostate cancer, but it has associated risks. Discuss the risks and benefits of prostate cancer screening with your health care provider. If you are age 70 or older, the risks that screening can cause are greater than the benefits that it may provide. This information is not intended to replace advice given to you by your health care provider. Make sure you discuss any questions you have with your health care provider. Document Revised: 03/14/2022 Document Reviewed: 03/14/2022 [employer] Patient Education 2022 [employer]. Follow Up Care 02/15/2023 12:04:24 With:KARLEE GA, Rock Pollock, URL Address: [facility] [employer] [facility] [place] [id number]- When: Unknown [facility] 08-07-2023 Evaluation note Encounter Date Diagnosis Assessment Notes Aug, Acute non-recurren t frontal sinusitis (ICD-10 - J01.10) Sinus infections can be triggered by a secondary infection from a viral URI or even seasonal allergies. Take medications as directed. Use saline nasal spray prior to presciption nasal spray. Take medications as directed, and complete all doses of medication even if you start to feel better. Patient advised to follow up with PCP if symptoms persist or worsen. Patient verbalized understanding and agreement with treatment plan. Aug, COVID-19 (ICD-10 - U07.1) Symptoms improving. Has passed the quarantine dates. Rest, hydrate. [employer] Other 02-16-2023 Evaluation note* Encounter Date Diagnosis Assessment Notes Treatment Notes Treatment Clinical Notes Nov, Preoperative clearance (ICD-10 - Z01.818) Excluding any abnormalities and upcoming preoperative testing, Darrell is cleared for surgery. He is scheduled with Dr. Holder for a robotic sigmoid colectomy on December 07. Nov, Tubulovillous adenoma of colon (ICD-10 - D12.6) Discussed iron deficiency anemia history. This had prompted our colonoscopy which took months to complete. Patient is anticipating getting the surgery completed and behind him at this juncture. Nov, Essential hypertension (ICD-10 - I10) [employer] Other 01-17-2023 NoteSubjective HPI 72 years old white male years old white male developed iron deficiency anemia. EGD showed gastritis without ulcers. Colonoscopy showed a large polypoid mass on sigmoid colon, 50 cm from anal verge, occupied 25% of the circumference. Review of Systems Constitutional: Negative. HENT: Negative. Eyes: Negative. Respiratory: Negative. Cardiovascular: Negative. Gastrointestinal: Positive for blood in stool. Endocrine: Negative. Genitourinary: Negative. Musculoskeletal: Negative. Skin: Negative. Allergic/Immunologic: Negative. Hematological: Negative. Psychiatric/Behavioral: Negative. Objective Visit Vitals BP 151/84 (BP Location: Right arm, Patient Position: Sitting, BP Cuff Size: Adult) Pulse 77 Temp 36.9 ???C (98.4 ???F) Physical Exam Constitutional: Appearance: Normal appearance. He is normal weight. HENT: Head: Normocephalic and atraumatic. Eyes: Extraocular Movements: Extraocular movements intact. Pupils: Pupils are equal, round, and reactive to light. Cardiovascular: Rate and Rhythm: Normal rate and regular rhythm. Pulses: Normal pulses. Pulmonary: Effort: Pulmonary effort is normal. Breath sounds: Normal breath sounds. Abdominal: General: Abdomen is flat. Bowel sounds are normal. Palpations: Abdomen is soft. Musculoskeletal: General: Normal range of motion. Cervical back: Normal range of motion and neck supple. Skin: General: Skin is warm and dry. Neurological: Mental Status: He is alert and oriented to person, place, and time. Psychiatric: Mood and Affect: Mood normal. Assessment/Plan Sigmoid colon mass Iron deficient deficiency anemia Da Christiano sigmoid colectomy is indicated. In need CT scan abdomen with IV contrast with IV contrast. No diagnosis found. No orders of the defined types were placed in this encounter. No results found for this or any previous visit (from the past 36 hour(s)). No follow-ups on file.[facility]11-30-2022 NoteOP Note OPERATION DATE: 08/31/2022 PREOPERATIVE DIAGNOSIS: Iron deficiency anemia, personal history of tubulovillous adenoma. POSTOPERATIVE DIAGNOSIS: Large polypoid mass at 50 cm. PROCEDURE: EGD with antral biopsy and colonoscopy to cecum with cold forceps biopsies of sigmoid polypoid mass, 50 cm. SURGEON: Dharmesh Walters M.D. ANESTHESIA: Monitored anesthesia care. ESTIMATED BLOOD LOSS: Less than 1 mL. INDICATIONS AND CONSENT: Patient is a 72-year-old male with history of iron deficiency anemia, also has history of tubulovillous adenoma of the sigmoid colon that was removed in 2010. He has not had follow up since then. Indications, risks, benefits, alternatives of proceeding with EGD and colonoscopy were explained extensively to the patient, including the risks of bleeding, aspiration, esophageal/gastric, duodenal or colon perforation or anesthetic complications. All of his questions were answered. Informed consent was obtained. PROCEDURE: Patient brought to the operating room, placed in the left lateral decubitus position. Monitored anesthesia care was provided. Bite block was placed in the patient's mouth. The EGD scope was inserted into the oropharynx. Under direct visualization, it was advanced into the esophagus, past the cricopharyngeus and down into the stomach. The stomach was insufflated with air. The pylorus was traversed down to the descending portion of the duodenum. There was no evidence of duodenitis or ulceration. There was no scarring within the pyloric channel. The scope was pulled back into the stomach and retroflexed. There was a small sliding type hiatal hernia. There was some antral gastritis without ulceration or bleeding. Several biopsies were obtained with pediatric cold biopsy forceps with good hemostasis. The GE junction was noted at 40 cm. There was some mild distal esophagitis without Antonio's changes. The remainder of the esophagus was unremarkable. The scope was then withdrawn. Patient was then positioned for colonoscopy. Rectal exam was performed which revealed no masses or blood. The scope was inserted into the anal canal. Under direct visualization was advanced. At 50 cm, there was noted to be a large polypoid mass that was non-obstructing. The scope was able to be advanced beyond it to the cecum where cecal markings were clearly identified. There was noted to be a good prep. Upon withdrawal of the scope, mucosal surfaces were carefully examined. There were no other mass lesions or inflammatory changes. No significant diverticulosis. At approximately 50 cm in the sigmoid colon, there was noted to be a large polypoid mass, taking up approximately 25% of the circumference of the lumen. It was round the fold and broad based. Multiple biopsies were obtained with cold biopsy forceps with good hemostasis. There were some prominent rectal veins. No significant hemorrhoidal disease. Scope was retroflexed in the anal canal. There were no other mass lesions noted. The scope was then withdrawn. Patient tolerated procedure well, was sent to recovery room in good condition. Follow up colonoscopy will depend on the pathology. The patient likely will require colonic resection. Follow up would be one year after that. CC: Abigail Sanchez M.D.[facility] [id number] NoteOPERATIVE NOTE OPERATION DATE: 08/26/2022 PREOPERATIVE DIAGNOSIS: Iron deficiency anemia, personal history of colon polyps. POSTOPERATIVE DIAGNOSIS: Antral gastritis, sigmoid diverticulosis as well as polypoid mass at 50 cm. PROCEDURE: EGD with antral biopsy and colonoscopy to cecum with biopsy of polypoid mass at 50 cm. SURGEON: Dharmesh Walters M.D. ANESTHESIA: Monitored anesthesia care. ESTIMATED BLOOD LOSS: Less than 2 mL. INDICATIONS AND CONSENT: Patient is a 72-year-old male, recently found to have iron deficiency anemia. He also has a personal history of fibroglandular colon polyp removed by Dr. Chaudrhy from the sigmoid colon in 2010. Indications, risks, benefits, alternatives of proceeding with EGD and colonoscopy were explained extensively to the patient, including the risks of bleeding, aspiration, esophageal/gastric/duodenal or colonic perforation or anesthetic complications. All of his questions were answered. Informed consent was obtained. PROCEDURE: Patient brought to the operating room, placed in the left lateral decubitus position. Monitored anesthesia care was provided. A bite block was placed in the patient's mouth. Scope was inserted into the oropharynx. Under direct visualization, it was advanced into the esophagus, past the cricopharyngeus, down to the stomach. The stomach was insufflated with air. The pylorus was traversed down to the descending portion of the duodenum. There was no evidence of duodenitis or ulceration. There was scarring within the pyloric channel. The scope was pulled back into the stomach. There was noted to be some mild antral gastritis. Biopsy was obtained x2 with good hemostasis. Scope was retroflexed. There was no significant hiatal hernia. The GE junction was noted at 40 cm. There was no distal esophagitis or Antonio's changes. The scope was then withdrawn. The patient was then positioned for colonoscopy. Rectal exam was performed which showed no masses or blood. Scope was inserted into the anal canal. Under direct visualization was advanced to the cecum where cecal markings were clearly identified. There was noted to be a good prep. Upon withdrawal of the scope, mucosal surfaces were carefully examined. There were no inflammatory changes or ulcerations. There was moderate sigmoid diverticulosis. At 50 cm, there was noted to be a large polypoid mass taking up approximately 20-25% of the circumference of the sigmoid colon. It was broad based. Multiple biopsies were obtained with good hemostasis. No other mass lesions or polyps. The scope was retroflexed in the anal canal. There was no significant hemorrhoidal disease. Scope was then withdrawn. Patient tolerated procedure well, was sent to recovery room in good condition. CC: Abigail Sanchez M.D.[facility] [id number] NoteOPERATIVE NOTE OPERATION DATE: 08/26/2022 PREOPERATIVE DIAGNOSIS: Iron deficiency anemia, personal history of tubulovillous adenoma. POSTOPERATIVE DIAGNOSIS: Large polypoid mass at 50 cm. PROCEDURE: EGD with antral biopsy and colonoscopy to cecum with cold forceps biopsies of sigmoid polypoid mass, 50 cm. SURGEON: Dharmesh Watlers M.D. ANESTHESIA: Monitored anesthesia care. ESTIMATED BLOOD LOSS: Less than 1 mL. INDICATIONS AND CONSENT: Patient is a 72-year-old male with history of iron deficiency anemia, also has history of tubulovillous adenoma of the sigmoid colon that was removed in 2010. He has not had follow up since then. Indications, risks, benefits, alternatives of proceeding with EGD and colonoscopy were explained extensively to the patient, including the risks of bleeding, aspiration, esophageal/gastric, duodenal or colon perforation or anesthetic complications. All of his questions were answered. Informed consent was obtained. PROCEDURE: Patient brought to the operating room, placed in the left lateral decubitus position. Monitored anesthesia care was provided. Bite block was placed in the patient's mouth. The EGD scope was inserted into the oropharynx. Under direct visualization, it was advanced into the esophagus, past the cricopharyngeus and down into the stomach. The stomach was insufflated with air. The pylorus was traversed down to the descending portion of the duodenum. There was no evidence of duodenitis or ulceration. There was no scarring within the pyloric channel. The scope was pulled back into the stomach and retroflexed. There was a small sliding type hiatal hernia. There was some antral gastritis without ulceration or bleeding. Several biopsies were obtained with pediatric cold biopsy forceps with good hemostasis. The GE junction was noted at 40 cm. There was some mild distal esophagitis without Antonio's changes. The remainder of the esophagus was unremarkable. The scope was then withdrawn. Patient was then positioned for colonoscopy. Rectal exam was performed which revealed no masses or blood. The scope was inserted into the anal canal. Under direct visualization was advanced. At 50 cm, there was noted to be a large polypoid mass that was non-obstructing. The scope was able to be advanced beyond it to the cecum where cecal markings were clearly identified. There was noted to be a good prep. Upon withdrawal of the scope, mucosal surfaces were carefully examined. There were no other mass lesions or inflammatory changes. No significant diverticulosis. At approximately 50 cm in the sigmoid colon, there was noted to be a large polypoid mass, taking up approximately 25% of the circumference of the lumen. It was round the fold and broad based. Multiple biopsies were obtained with cold biopsy forceps with good hemostasis. There were some prominent rectal veins. No significant hemorrhoidal disease. Scope was retroflexed in the anal canal. There were no other mass lesions noted. The scope was then withdrawn. Patient tolerated procedure well, was sent to recovery room in good condition. Follow up colonoscopy will depend on the pathology. The patient likely will require colonic resection. Follow up would be one year after that. CC: Abigail Sanchez M.D.[facility] [id number] Hospital Discharge instructions Patient Education 04/27/2022 08:25:39 Benign Prostatic Hyperplasia Benign Prostatic Hyperplasia Benign prostatic hyperplasia (BPH) is an enlarged prostate gland that is caused by the normal agingprocess and not by cancer. The prostate is a walnut-sized gland that is involved in the production of semen. It is located in front of the rectum and below the bladder. The bladder stores urine and the urethra is the tube that carries the urine out of the body. The prostate may get bigger as a man gets older. An enlarged prostate can press on the urethra. This can make it harder to pass urine. The build-up of urine in the bladder can cause infection. Back pressure and infection may progress to bladder damage and kidney (renal) failure. What are the causes? This condition is part of a normal aging process. However, not all men develop problems from this condition. If the prostate enlarges away from the urethra, urine flow will not be blocked. If it enlarges toward the urethra and compresses it, there will be problems passing urine. What increases the risk? This condition is more likely to develop in men over the age of 50 years. What are the signs or symptoms? Symptoms of this condition include: Getting up often during the night to urinate. Needing to urinate frequently during the day. Difficulty starting urine flow. Decrease in size and strength of your urine stream. Leaking (dribbling) after urinating. Inability to pass urine. This needs immediate treatment. Inability to completely empty your bladder. Pain when you pass urine. This is more common if there is also an infection. Urinary tract infection (UTI). How is this diagnosed? This condition is diagnosed based on your medical history, a physical exam, and your symptoms. Tests will also be done, such as: A post-void bladder scan. This measures any amount of urine that may remain in your bladder after you finish urinating. A digital rectal exam. In a rectal exam, your health care provider checks your prostate by putting a lubricated, gloved finger into your rectum to feel the back of your prostate gland. This exam detects the size of your gland and any abnormal lumps or growths. An exam of your urine (urinalysis). A prostate specific antigen (PSA) screening. This is a blood test used to screen for prostate cancer. An ultrasound. This test uses sound waves to electronically produce a picture of your prostate gland. Your health care provider may refer you to a specialist in kidney and prostate diseases (urologist). How is this treated? Once symptoms begin, your health care provider will monitor your condition (active surveillance or watchful waiting). Treatment for this condition will depend on the severity of your condition. Treatment may include: Observation and yearly exams. This may be the only treatment needed if your condition and symptoms are mild. Medicines to relieve your symptoms, including: ?Medicines to shrink the prostate. ?Medicines to relax the muscle of the prostate. Surgery in severe cases. Surgery may include: ?Prostatectomy. In this procedure, the prostate tissue is removed completely through an open incision or with a laparoscope or robotics. ?Transurethral resection of the prostate (TURP). In this procedure, a tool is inserted through the opening at the tip of the penis (urethra). It is used to cut away tissue of the inner core of the prostate. The pieces are removed through the same opening of the penis. This removes the blockage. ?Transurethral incision (TUIP). In this procedure, small cuts are made in the prostate. This lessens the prostate's pressure on the urethra. ?Transurethral microwave thermotherapy (TUMT). This procedure uses microwaves to create heat. The heat destroys and removes a small amount of prostate tissue. ?Transurethral needle ablation (TUNA). This procedure uses radio frequencies to destroy and remove a small amount of prostate tissue. ?Interstitial laser coagulation (ILC). This procedure uses a laser to destroy and remove a small amount of prostate tissue. ?Transurethral electrovaporization (TUVP). This procedure uses electrodes to destroy and remove a small amount of prostate tissue. ?Prostatic urethral lift. This procedure inserts an implant to push the lobes of the prostate away from the urethra. Follow these instructions at home: Take [id number] and prescription medicines only as told by your health care provider. Monitor your symptoms for any changes. Contact your health care provider with any changes. Avoid drinking large amounts of liquid before going to bed or out in public. Avoid or reduce how much caffeine or alcohol you drink. Give yourself time when you urinate. Keep all follow-up visits as told by your health care provider. This is important. Contact a health care provider if: You have unexplained back pain. Your symptoms do not get better with treatment. You develop side effects from the medicine you are taking. Your urine becomes very dark or has a bad smell. Your lower abdomen becomes distended and you have trouble passing your urine. Get help right away if: You have a fever or chills. You suddenly cannot urinate. You feel lightheaded, or very dizzy, or you faint. There are large amounts of blood or clots in the urine. Your urinary problems become hard to manage. You develop moderate to severe low back or flank pain. The flank is the side of your body between the ribs and the hip. These symptoms may represent a serious problem that is an emergency. Do not wait to see if the symptoms will go away. Get medical help right away. Call your local emergency services (911 in the [place] Do not drive yourself to the hospital. Summary Benign prostatic hyperplasia (BPH) is an enlarged prostate that is caused by the normal aging process and not by cancer. An enlarged prostate can press on the urethra. This can make it hard to pass urine. This condition is part of a normal aging process and is more likely to develop in men over the age of 50 years. Get help right away if you suddenly cannot urinate. This information is not intended to replace advice given to you by your health care provider. Make sure you discuss any questions you have with your health care provider. Document Released: 09/18/2006 Document Revised: 08/13/2019 Document Reviewed: 10/23/2017 [employer] Patient Education [employer]. Follow Up Care 10/25/2021 11:53:28 With:Rock LUJAN MD, URL Address: [address] [place], [place] [id number]- When:Within 6 Month(s) [facility] evaluation + Plan note Future Appointments Appointment Date:10/17/2022 08:00:00 AM Scheduled Provider:Rock LUJAN MD Location:[facility] Appointment Type:URO Office Visit Diagnostic Tests Pending * PSA Free & Total 09/01/22 [facility] evaluation + Plan note Future Appointments Appointment Date:10/17/2022 08:00:00 AM Scheduled Provider:Rock LUJAN MD Location:[facility] Appointment Type:URO Office Visit General Surgery [place] Evaluation + Plan note Future Appointments Appointment Date:03/20/2024 08:00:00 AM Scheduled Provider:Rock LUJAN MD Location:[facility] Appointment Type:URO Office Visit Diagnostic Tests Pending * PSA Free & Total 08/23/23 [facility] [place] Evaluation [facility]No [facility] Other History general Narrative - Reported* Type Description Date Medical History Iron deficiency anemia Medical History Fatigue Medical History Dyspnea on exertion Medical History Essential hypertension Surgical History CHOLECYSTECTOMY Surgical History CERVICAL DISC SURGERY Surgical History 2 INGUINAL HERNIA SURGERY Hospitalization History SEE SURGICAL HX [facility] Knowledge [employer] Other History general Narrative - Reported* Type Description Date Medical History Iron deficiency anemia Medical History Fatigue Medical History Dyspnea on exertion Medical History Essential hypertension Surgical History CHOLECYSTECTOMY Surgical History CERVICAL DISC SURGERY Surgical History 2 INGUINAL HERNIA SURGERY Surgical History Colonoscopy 2022 Surgical History Bowel resection 11/2022 Hospitalization History SEE SURGICAL HX [place] [employer] Other Hospital course Narrative No data available for this section [facility] Discharge instructions No data available for this section General Surgery [place] Progress note No data available for this section [facility] [place] Summary Purpose Family History No Family History Records FoundNo Family History Records FoundNo Family History Records FoundNo Family History Records Found No data available for this section No Family History Records Found Advance Directives No Advanced Directives Records FoundNo Advanced Directives Records FoundNo Advanced Directives Records FoundNo Advanced Directives Records FoundNo Advanced Directives Records Found Additional Source Comments (unrecognized sect ion and content) No Status Records FoundNo Status Records FoundNo Status Records FoundNo Status Records FoundNo Status Records Found INFORMATION SOURCE (unrecogn ized section and content) DATE CREATED AUTHOR 03/26/2018 [facility] DATE CREATED AUTHOR AUTHOR'S ORGANIZ ATION 03/31/2022 [facility] DATE CREATED AUTHOR AUTHOR'S ORGANIZ ATION 10/19/[address] [facility] DATE CREATED AUTHOR AUTHOR'S ORGANIZ ATION 02/12/2023 [facility] DATE CREATED AUTHOR AUTHOR'S ORGANIZ ATION 08/27/2023 [facility] Care Team (unrecognized sect ion and content) Personnel Name: ABIGAIL SANCHEZ MD Address: [address] [place] [address]- Personnel Name: ABIGAIL SANCHEZ MD Address: Address: [address] [place] [address] Personnel Name: ABIGAIL SANCHEZ MD Address: Address: [address] [place] [address]- REASON FOR VISIT (unrecogniz ed section and content) Pre-Op ClearanceER follow up 07/26 COVIDphone call FOR RECORDS PERTAINING TO PATIENTS WHO ARE OR HAVE BEEN ENROLLED IN A CHEMICAL DEPENDENCY/SUBSTANCEABUSE PROGRAM, SOME INFORMATION MAY BE OMITTED. This clinical summary was aggregated from multiple sources. Caution should be exercised in using it in the provision of clinical care. This summary normalizes information from multiple sources, and as a consequence, information in this document may materially change the coding, format and clinical context of patient data. In addition, data may be omitted in some cases. CLINICAL DECISIONS SHOULD BE BASED ON THE PRIMARY CLINICAL RECORDS. [facility] [employer] provides no warranty or guarantee of the accuracy or completeness of information in this document.
[2024-03-13 10:13] LABS: PSA, Free 1.62 ng/mL; Prostate Specific Ag 7.7 ng/mL (0.0-4.0)
== END 2024-03-12 08:08 | disposition home or self-care (01) ==
LOC: LAB 08:12
PROVIDERS: PCP Family Medicine; Visit Provider Nurse Practitioner Family
DX: N40.1 Benign prostatic hyperplasia with lower urinary tract symptoms (principal); R97.20 Elevated prostate specific antigen [PSA]
CPT/HCPCS: 36415; 84153; 84154

== ENCOUNTER 2024-07-11 11:11 | Emergency (ER) | payer MEDICARE, SELFPAY ==
[2024-07-11 11:25] VITALS: BP 163/72; PULSE 64; TEMP 36.8; O2SAT 99; BMI 24.4
--- OUTSIDE RECORDS SUMMARY | 2024-07-11 11:32 | XMS_ITS | CCD ---
Author Organization [facility] CliniSymi Care Team Providers Care [facility] Attendant Name Role Phone SCHROEDER, FELICIANO Unavailable Unavailable RICE, CLEVELAND W Unavailable Unavailable RICE, CLEVELAND W Unavailable Unavailable SCHROEDER, FELICIANO Unavailable Unavailable SCHROEDER, FELICIANO Unavailable Unavailable SCHROEDER, FELICIANO Unavailable Unavailable SCHROEDER, FELICIANO Unavailable Unavailable SCHROEDER, FELICIANO Unavailable Unavailable ALEXA GARCIA Unavailable Unavailable SCHROEDER, FELICIANO Unavailable Unavailable ABIGAIL SANCHEZ Primary Care Physician [phone] DENISHA GARCIA Attending Unavailable DENISHA GARCIA Referring Unavailable Abigail Sanchez Unavailable DANIEL, DR ABIGAIL Trejo Admitting Unavailable SANCHEZ, DR ABIGAIL Trejo Attending Unavailable SANCHEZ, DR ABIGAIL Trejo Primary Care Unavailable SANCHEZ, DR ABIGAIL Trejo Consulting Unavailable GARCIA, DR DENNY Admitting Unavailable GARCIA, DR DENNY Attending Unavailable SANCHEZ, DR ABIGAIL Trejo Primary Care Unavailable WARNER ROBINS, DR OLIVER Maguire Consulting Unavailable GARCIA, DR DENNY Consulting Unavailable COOK, DR ROCK Pollock Admitting Unavailable COOK, DR ROCK Pollock Attending Unavailable SANCHEZ, DR ABIGAIL Trejo Primary Care Unavailable COOK, DR ROCK Pollock Consulting Unavailable NILL ., DR BARROSO Admitting Unavailable NILL ., DR BARROSO Attending Unavailable SANCHEZ, DR ABIGAIL Trejo Primary Care Unavailable NILL ., DR BARROSO Consulting Unavailable RODRIGUEZRENÉ NAVARRETE Consulting Unavailable NILL ., DR BARROSO Admitting Unavailable NILL ., DR BARROSO Attending Unavailable SANCHEZ, DR ABIGAIL Trejo Primary Care Unavailable NILL ., DR BARROSO Consulting Unavailable REMBERTO, XI WESTON Consulting Unava ilable GEMBUSLUCITA Consulting Unavailable KARLEE, DR ROCK Pollock Admitting Unavailable COOK, DR ROCK Pollock Attending Unavailable SANCHEZ, DR ABIGAIL Trejo Primary Care Unavailable COOK, DR ROCK Pollock Consulting Unavailable Rock LUJAN Attending Unavailable Orzech, Laura X Attending Unavailable Rock LUJAN Attending Unavailable Medications Current Medications Medication Drug Class(es) Dates Sig (Normalized) Sig (Original) amoxicillin 875 mg / clavulanate 125 mg oral tablet (2 sources) Penicillin-class Antibacterial Start: 08-07-2023 take 1 tablet by mouth every twelve hours Amoxicillin-Pot Clavulanate 875-125 MG 1 tablet Orally every 12 hrs for 10 day(s) Aug, Active Daily Multiple for Men 50+ oral tablet (4 sources) Start: 06-15-2020 take 1 tablet by mouth once daily Daily Multiple for Men 50+ oral tablet Oral, Daily, Refill(s) 0 Start Date: 06/15/20 Status: Ordered doxycycline hyclate 100 mg oral tablet (1 source) Tetracycline-class Drug Start: 02-15-2023 take 1 tablet by mouth twice daily doxycycline hyclate 100 mg Tab 100 mg = 1 tab(s), Oral, BID, # 14 tab(s), Refills(s) 0, Pharmacy: [id number], 177, cm, 02/15/23 11:48:00 EDT, Height/Length Dosing, 78.9, kg, 02/15/23 11:48:00 EDT, Weight Dosing Start Date: 02/15/23 Status: Ordered Psyllium (2 sources) Start: 02-15-2023 Metamucil Oral, BID Start Date: 02/15/23 Status: Ordered See instructions (1 source) Start: 09-09-2017 See instructions See instructions, CBC with differential on 09/18/2017 and follow up with PCP/Urologist. Diagnosis Right ureteric stone/UTI, Print Requisition, Supply Start Date: 09/09/17 Status: Ordered tamsulosin hydrochloride 0.4 mg oral capsule (7 sources) alpha-Adrenergic Gordon Start: 01-09-2024 take 1 capsule by mouth twice daily tamsulosin 0.4 mg Cap 0.4 mg = 1 cap(s), Oral, BID, # 180 cap(s), Refills(s) 3, Pharmacy: [id number], 177, cm, 08/23/23 8:44:00 EST, Height/Length Dosing, 78.9, kg, 08/23/23 8:44:00 EST, Weight Dosing Start Date: 01/09/24 Status: Ordered Start: 01-12-2023 take 1 capsule by [facility] twice daily tamsulosin 0.4 mg Cap 0.4 mg = 1 cap(s), Oral, BID, # 180 cap(s), Refills(s) 3, Pharmacy: [email or web address], 177, cm, 07/26/22 13:27:00 EDT, Height/Length Dosing, 87.5, kg, 07/26/22 13:27:00 EDT, Weight Dosing Start Date: 01/12/23 Status: Ordered Start: 01-05-2022 take 1 capsule by [facility] twice daily tamsulosin 0.4 mg Cap 0.4 mg = 1 cap(s), Oral, BID, # 180 cap(s), Refills(s) 3, Pharmacy: [email or web address], 177, cm, 10/25/21 11:30:00 EST, Height/Length Dosing, 78.9, kg, 10/25/21 11:30:00 EST, Weight Dosing Start Date: 01/05/22 Status: Ordered take 1 capsule by [facility] every twenty-four hours Tamsulosin HCl 0.4 MG 1 capsule Orally Once a day Active Completed/Discontinued Medications Medication Drug Class(es) Dates Sig (Normalized) Sig (Original) losartan potassium 25 mg oral tablet (7 sources) Angiotensin 2 Receptor Gordon Start: 01-12-2016 take 1 tablet by mouth once daily losartan 25 mg Tab 90 EA, TAKE 1 TABLET BY MOUTH DAILY, Refills(s) 0 Start Date: 07/18/22 Status: Ordered take [address] 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 Diverticulosis and diverticulitis (8 sources) Diverticulitis of intestine, part unspecified, without perforation or abscess without bleeding; Translations: [Diverticulosis of sigmoid colon] Onset: 10-18-2022 Chronic Essential hypertension (13 sources) Essential (primary) hypertension; Translations: [Hypertensive disorder] Onset: 06-18-2015 07-18-2022 Chronic Genitourinary symptoms and ill-defined conditions (18 sources) Samir hematuria; Translations: [Nocturia] Onset: 01-30-2019 Resolved: 03-09-2019 12-18-2019 Episodic Hyperplasia of prostate (13 sources) Benign prostatic hypertrophy with outflow obstruction; Translations: [Benign prostatic hyperplasia with lower urinary tract symptoms] Onset: 06-18-2015 Chronic 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 (4 sources) Epididymitis; Translations: [Epididymitis] Onset: 08-23-2023 Episodic Malaise and fatigue (9 sources) Asthenia; Translations: [Fatigue] 06-15-2020 Episodic Nutritional deficiencies (1 source) Vitamin D deficiency, unspecified; Translations: [Vitamin D deficiency, unspecified] Onset: 09-12-2017 Chronic Other and unspecified benign neoplasm (1 source) Benign neoplasm of colon, unspecified Episodic Other and unspecified benign neoplasm (2 sources) Adenomatous polyp of colon 09-13-2022 Episodic Other [...] Episodic Other nutritional; endocrine; and metabolic disorders (3 sources) Overweight in adulthood with body mass index of 25 or more but less than 30 07-26-2022 Episodic Other nutritional; endocrine; and metabolic disorders (4 sources) Body mass index 25-29 - overweight; Translations: [Body mass index (BMI) 26.0-26.9, adult] Episodic Other screening for suspected conditions (not mental disorders or infectious disease) (14 sources) Raised prostate specific antigen; Translations: [Elevated prostate specific antigen [PSA]] Onset: 04-17-2019 Episodic Other upper respiratory disease (5 sources) Seasonal allergic rhinitis; Translations: [Other seasonal allergic rhinitis] Onset: 11-18-2016 07-18-2022 Chronic Residual codes; unclassified (2 sources) Immunization refused ; Translations: [Immunization not carried out because of patient refusal] Episodic Spondylosis; intervertebral disc disorders; other back problems (4 sources) Degeneration of cervical intervertebral disc 04-13-2016 Chronic Unclassified (1 source) Unknown / UNK(Unknown) Onset: 09-12-2017 Unclassified (1 source) CONTACT W/AND (SUSP) EXPOS COVID-19; Translations: [CONTACT W/AND (SUSP) EXPOS COVID-19] Onset: 08-31-2022 Urinary tract infections (4 sources) Urinary tract infectious disease 06-15-2020 Episodic [...] [GASTRITIS UNS WITHOUT BLEEDING] Onset: 09-07-2022 Episodic Other aftercare (1 source) Other group home (current) drug therapy; Translations: [OTH LIABILITY CLAIMS REPRESENTATIVE CURRENT DRUG THERAPY] Onset: 09-07-2022 Episodic Other and unspecified benign neoplasm (1 source) Benign neoplasm of sigmoid colon; Translations: [BENIGN NEOPLASM OF SIGMOID COLON] Onset: 09-07-2022 Episodic Other and unspecified benign neoplasm (1 source) Personal history of colonic polyps; Translations: [PERSONAL HISTORY OF COLONIC POLYPS] Onset: 09-07-2022 Episodic Other upper respiratory infections (3 sources) [...] Test Name Value Interpretation Reference Range Facility [facility] 03-21-2024 Lab Reports [id number]#[id number] [facility] 03-21-2024 Screens [id number] [facility] Ambulatory Visit Summaryon 0 03-20-2024 Ambulatory Visit Summary DARRELL NELSON :1950 Visit Date:03/20/2024 Ambulatory Visit Instructions Your Diagnosis BPH with urinary obstruction Elevated PSA Epididymitis Your Care Team Attending Physician - Rock LUJAN MD Primary Care Physician - ABIGAIL SANCHEZ MD [...] Sinus Surgery. Discharge Vitals Heart Rate (Peripheral) 66 Blood Pressure 146/85 Height 177 cm Height 70 in Weight 78.9 kg Weight 173.58 lb BMI 25.18 What to do next Scheduled Follow-Up Appointments Monday 8:00 AM EST With: Rock LUJAN MD Where: [facility] Patient Educationon 03-20-20 Patient Education Urology Benign Prostatic Hyperplasia Benign prostatic hyperplasia (BPH) [...] or symptoms? Symptoms of this condition include: ? Getting up often during the night to urinate. ? Needing to urinate frequently during the day. ? Difficulty starting urine flow. ? Decrease in size and strength of your urine stream. ? Leaking (dribbling) after urinating. ? Inability to pass urine. This needs immediate treatment. ? Inability to completely empty your bladder. ? Pain when you pass urine. This is more common if there is also an infection. ? Urinary tract infection (UTI). How is this diagnosed? This condition is diagnosed based on your medical history, a physical exam, and your symptoms. Tests will also be done, such as: ? A post-void bladder scan. This measures any amount of urine that may remain in your bladder after you finish urinating. ? A digital rectal exam. In a rectal exam, your health care provider checks your prostate by putting a lubricated, gloved finger into your rectum to feel the back of your prostate gland. This exam detects the size of your gland and any abnormal lumps or growths. ? An exam of your urine (urinalysis). ? A prostate specific antigen (PSA) screening. This is a blood test used to screen for prostate cancer. ? An ultrasound. This test uses sound waves [...] severity of your condition. Treatment may include: ? Observation and yearly exams. This may be the only treatment needed if your condition and symptoms are mild. ? Medicines to relieve your symptoms, including: ? Medicines to shrink the prostate. ? Medicines to relax the muscle of the prostate. ? Surgery in severe cases. Surgery may include: ? Prostatectomy. In this procedure, the prostate tissue is removed completely through an open incision or with a laparoscope or robotics. ? Transurethral resection of the prostate (TURP). In this procedure, a tool is inserted through the opening at the tip of the penis (urethra). It is used to cut away tissue of the inner core of the prostate. The pieces are removed through the same opening of the penis. This removes the blockage. ? Transurethral incision (TUIP). In this procedure, small cuts are made in the prostate. This lessens the prostate's pressure on the urethra. ? Transurethral microwave thermotherapy (TUMT). This procedure uses microwaves to create heat. The heat destroys and removes a small amount of prostate tissue. ? Transurethral needle ablation (TUNA). This procedure uses radio frequencies to destroy and remove a small amount of prostate tissue. ? Interstitial laser coagulation (ILC). This procedure uses a laser to destroy and remove a small amount of prostate tissue. ? Transurethral electrovaporization (TUVP). This procedure uses electrodes to destroy and remove a small amount of prostate tissue. ? Prostatic urethral lift. This procedure inserts an implant to push the lobes of the prostate away from the urethra. Follow these instructions at home: ? Take nxvn-ssy-ffriyzo and prescription medicines only as told by your health care provider. ? Monitor your symptoms for any changes. Contact your health care provider with any changes. ? Avoid drinking large amounts of liquid before going to bed or out in public. ? Avoid or reduce how much caffeine or alcohol you drink. ? Give yourself time when you urinate. ? Keep all follow-up visits. This is important. Contact a health care provider if: ? You have unexplained back pain. ? Your symptoms do not get better with treatment. ? You develop side effects from the medicine (more content not included)... Normal [facility] Urology Office/Clinic Noteon 03-20-2024 Urology Office/Clinic Note Chief Complaint 6 mo fu HPI Staff 72 year old male here for 6 month with PSA. Previous DX: BPH w/LUTS, elevated PSA, BPH w/LUTS and epididymitis. Pt. taking Flomax 0.4mg PSA: 12/11/19 - 7.7 & 15.2% 06/02/20 - 9.6 & 15.9% 10/12/20 - 8.1 & 17.3% 03/17/21 - 8.5 & 16.1% 10/19/21 - 9.1 & 17.5% 04/20/22 - 6.5 & 18.5% 02/08/23 - 7.6 & 19.7% 08/16/23 - 9.3 & 15.4% 03/12/24 - 7.7 & 21.0% Dysuria: no Incomplete bladder emptying: no Hematuria: no Frequency: no Urgency: no Nocturia:1x Stream:good stream Leaking: no Post void dripping: no Wearing pads/ Depends: no Urge incontinence: no Stress incontinence: no Incontinence without Sensory Awareness: no Abdominal pain: no Flank pain: no Sexual complaints: no History of Present Illness Tests reviewed: reviewed UA and PSA FT. I have reviewed the previous health record information and history for this patient from Dr. Lujan and Laura Darling. I have reviewed and verified the staff HPI to be accurate for this encounter. There have been no associated fever, chills, flank pain, or blood in the urine. Denies any urinary infections since last encounter. Review of Systems PHQ Score Initial Depression Screen Score: 0 SCORE ROS - Provider Constitutional: denies weight loss, denies hot flashes. Eyes: denies eye problems. Gastrointestinal: denies nausea, denies vomiting. Cardiovascular: denies chest pain or angina. Integumentary: no dryness Musculoskeletal: denies musculoskeletal symptoms. ENMT: denies otolaryngeal symptoms. Respiratory: no shortness of breath. Heme/Lymph: denies easy bleeding tendency, denies easy bruising tendency. Psychiatric: no confusion, no anxiety. Genitourinary: See HPI. Physical Exam Vitals & Measurements HR: 66(Peripheral) BP: 146/85 HT: 70 in HT: 177 cm WT: 78.9 kg WT: 173.58 lb BMI: 25.18 General Appearance: alert, no distress, well nourished, well developed male. Assessment/Plan Last seen by Laura 08/23/23. Portions of this record may have been created with voice recognition artificial intelligence software, specifically [employer], [employer] and or [employer]. Substitutions may have occurred due to the inherent limitations of voice recognition and artificial intelligence software. 1. BPH with urinary obstruction (N40.1: Benign prostatic hyperplasia with lower urinary tract symptoms) UA today neg. IPSS 2 (3) Taking Flomax 0.4mg qd. Not interested in procedural intervention at this point. -Cont sx monitoring 2. Elevated PSA (R97.20: Elevated prostate specific antigen [PSA]) PSA: 12/11/19 - 7.7 & 15.2% 06/02/20 - 9.6 & 15.9% 10/12/20 - 8.1 & 17.3% 03/17/21 - 8.5 & 16.1% 10/19/21 - 9.1 & 17.5% 04/20/22 - 6.5 & 18.5% 02/08/23 - 7.6 & 19.7% 08/16/23 - 9.3 & 15.4% 03/12/24 - 7.7 & 21.0% HUGO 08/23/23 by Laura: non tender to palpation. Normal prostate. No nodules. Hx of fluctuating PSA. Will cont to monitor. -PSA free and total in 6 mos 3. Epididymitis (N45.1: Epididymitis) Left epididymis nontender to palpation on exam. Pain resolved since treatment with doxycycline at prior OV. No current issues. -Cont sx monitoring Overall the patient is voiding about the same. No change in the dosing is indicated. He will call for refills. He has had no episodes of epididymitis. PSA levels are as noted and he has a longstanding history of fluctuation. Follow-up 6 months for continued monitoring. Follow-up With When Contact Information KARLEE GA, Rock Pollock, URL [address] [facility] [address] [place] [id number]- Additional Instructions: 6 mos w/ PSA free & total Patient Education Benign Prostatic Hyperplasia I, Rianna Mrach, personally scribed for Dr. Lujan on 03/20/2024 09:00:12. . Documentation recorded by the scribe, Rianna March, accurately reflects the services(s) I performed and decisions made by me. Authenticated by Dr. Lujan on 03/20/2024 09:02:33. Problem List/Past Medical History Ongoing BMI 27.0-27.9,adult [...] of cervical spine surgery, Repair of bilateral ingui (more content not included)... [facility] Comment on above: Result Comment: Elec tronically Signed By: Rock LUJAN MD\.br\Date and Time Signed: 03/20/24 09:03 EDT\.br\Electronically Co-Signed By: Rianna March\.br\Date and Time Co-Signed: 03/20/24 09:00 EDT [facility] 2023 Screens [id number] [facility] Ambulatory Visit Summaryon 1 10-23-2022 Ambulatory Visit Summary DARRELL NELSON :1950 Visit Date:08/23/2023 Ambulatory Visit Instructions Your Diagnosis Elevated PSA BPH with urinary obstruction Epididymitis Tests Performed Urnls Dip Stick Auto w/o Microscopy POC [id number] Your Care Team Attending Physician - Phong GUZMAN, ROSANA, Laura Coffman Primary Care Physician - ABIGAIL SANCHEZ MD [...] Follow-Up Appointments Monday 8:00 AM EDT With: KARLEE GA, Rock Pollock Where: [facility] Patient Educationon 08-23-20 Patient Education Oncology Prostate [...] Where to find more information ? The [employer]: www.cancer.org ? [employer]: www.auanet.org Contact a health care [...] adds flu (more content not included)... Normal [facility] Urology Office/Clinic Noteon 08-23-2023 Urology Office/Clinic Note [...] Pollock, URL [address] [place] [id number]- Additional Instructions: Patient Education Benign Prostatic Hyperplasia [...] Protein Urine Dipstick: Negative (08/23/23 08:39:00) Specific [place] Urine Dipstick: 1.020 (08/23/23 08:39:00) Urine Appearance Urine Dipstick: Clear (08/23/23 08:39:00) Urine Color Urine Dipstick: Yellow (08/23/23 08:39:00) Urobilinogen Urine Dipstick: Normal 0.2-1 EU/dl (08/23/23 08:39:00) pH Urine Dipstick: 7 (08/23/23 08:39:00) [facility] Comment on above: Result Comment: Elec tronically Signed By: ROSANA Darling APRN, [place] X\.br\Date and Time Signed: 08/23/23 11:10 EST Other [...] With When Contact Information KARLEE GA, Rock P, URL [address] [id number]- Additional Instructions: Problem List/Past Medical History Ongoing [...] (08/23/23 08:39:00 (more content not included)... Normal [facility] Comment on above: Result Comment: Elec tronically Signed By: ROSANA Darling APRN, Laura Coffman\.br\Date and Time Signed: 08/23/23 11:11 EST [facility] 08-21-2023 Lab Reports [id number] [facility] PSA, FREE AND TOTAL RATIOon 02-09-2023 % Free PSA 19.7 % Normal [facility] Comment on above: Result Comment: The table [...] men. Performed By: #### P SAFREE #### [facility] [address] [place] [address] Dr. Vaishali Dorsey Prostate specific Ag [Mass/Vol] 7.6 ng/mL Critically high 0.0-4.0 [facility] Comment on above: Result Comment: Dakota trejo ECLIA methodology. . According to the [employer], Serum PSA should decrease and [...] disease. Performed By: #### P SAFREE #### [facility] [address] [place] [address] Dr. Vaishali Dorsey PSA, Free 1.50 ng/mL Normal N/A [facility] Comment on above: Result Comment: Dakota trejo ECLIA methodology. Performed By: #### P SAFREE #### [facility] [address] [place] [address] Dr. Vaishali Dorsey CBC AUTO DIFFon 11-03-2022 BASO # 0.1 103/ul Normal 0.0-0.1 [facility] Comment on above: Performed By: #### C BC #### [facility] [address] [place] [address] Dr. Vaishali Dorsey Basophils/100 WBC (Bld) 0.6 % Normal 0.2-2.0 [facility] Comment on above: Performed By: #### C BC #### [facility] [address] [place] [address] Dr. Vaishali Dorsey EO # 0.5 103/ul Normal 0.0-0.7 [facility] Comment on above: Performed By: #### C BC #### [facility] [address] [place] [address] Dr. Vaishali Dorsey Eosinophils/100 WBC (Bld) 4.4 % Normal 0.9-7.0 [facility] Comment on above: Performed By: #### C BC #### [facility] [address] [place] [address] Dr. Vaishali Dorsey Erythrocyte distribution width (RBC) [Ratio] 17.2 % Critically high 11.0-15.0 [facility] Comment on above: Performed By: #### C BC #### [facility] [address] [place] [address] Dr. Vaishali Dorsey Hematocrit (Bld) [Volume fraction] 39.6 % Critically low 42.0-54.0 [facility] Comment on above: Performed By: #### C BC #### [facility] [address] [place] [address] Dr. Vaishali Dorsey Hemoglobin (Bld) [Mass/Vol] 11.8 g/dL Critically low 14.0-18.0 [facility] Comment on above: Performed By: #### C BC #### [facility] [address] [place] [address] Dr. Vaishali Dorsey IG # 0.03 10e3/ul Normal 0.00-0.03 [facility] Comment on above: Performed By: #### C BC #### [facility] [address] [place] [address] Dr. Vaishali Dorsey IG % 0.3 % Normal 0.0-0.5 [facility] Comment on above: Performed By: #### C BC #### [facility] [address] [place] [address] Dr. Vaishali oDrsey LYMPH # 4.1 103/ul Critically high 1.2-3.8 [facility] Comment on above: Performed By: #### C BC #### [facility] [address] [place] [address] Dr. Vaishali Dorsey Lymphocytes/100 WBC (Bld) 34.2 % Normal 20.5-60.0 [facility] Comment on above: Performed By: #### C BC #### [facility] [address] [place] [address] Dr. Vaishali Dorsey MANUAL DIFF REQ NO Normal [facility] Comment on above: Performed By: #### C BC #### [facility] [address] [place] [address] Dr. Vaishali Dorsey MCH (RBC) [Entitic mass] 24.5 pg Critically low 25.9-34.0 [facility] Comment on above: Performed By: #### C BC #### [facility] [address] [place] [address] [address] Vaishali Dorsey MCHC (RBC) [Mass/Vol] 29.8 g/dL Critically low 29.9-35.2 [facility] Comment on above: Performed By: #### C BC #### [facility] [address] [place] [address] Dr. Vaishali Dorsey MCV (RBC) [Entitic vol] 82.2 fL Normal 80.0-94.0 [facility] Comment on above: Performed By: #### C BC #### [facility] [address] [address] [address] Vaishali Dorsey MONO # 1.1 103/ul Critically high 0.3-0.8 [facility] Comment on above: Performed By: #### C BC #### [facility] [address] [place] [address] Dr. Vaishali Dorsey Monocytes/100 WBC (Bld) 9.1 % Normal 1.7-12.0 [facility] Comment on above: Performed By: #### C BC #### [facility] [address] [place] [address] Dr. Vaishali Dorsey NEUT # 6.1 103/ul Normal 1.4-6.5 [facility] Comment on above: Performed By: #### C BC #### [facility] [address] [place] [address] Dr. Vaishali Dorsey Neutrophils/100 WBC (Bld) 51.4 % Normal 43.0-75.0 [facility] Comment on above: Performed By: #### C BC #### [facility] [address] [place] [address] Dr. Vaishali Dorsey Platelet mean volume (Bld) [Entitic vol] 10.3 fL Normal 9.5-13.5 [facility] Comment on above: Performed By: #### C BC #### [facility] [address] [place] [address] Dr. Vaishali Dorsey PLT 231 103/ul Normal 150-450 [facility] Comment on above: Performed By: #### C BC #### [facility] [address] [address] [address] Vaishali Dorsey RBC 4.82 106/ul Normal 4.70-6.10 [facility] Comment on above: Performed By: #### C BC #### [facility] [address] [address] [address] Vaishali Dorsey WBC 11.9 103/ul Critically high 4.0-11.0 [facility] Comment on above: Performed By: #### C BC #### [facility] [address] ABD/PELV W CONon [...] OLIVER CHAVEZ Date: 2022-11-03 13:53 Normal [facility] PROF CHEM 8 (BAS METB)on Anion gap [Moles/Vol] 10.3 mmol/L Normal [facility] Comment on above: Performed By: #### B MP ####[facility] [address] [place] [phone]. Vaishali Dorsey Calcium [Mass/Vol] 9.2 mg/dL Normal 8.5-10.1 [facility] Comment on above: Performed By: #### B MP ####[facility] [address] [place] [phone]. Vaishali Dorsey Chloride [Moles/Vol] 105 mmol/L Normal 98-107 [facility] Comment on above: Performed By: #### B MP ####[facility] [address] [place] [address]Dr. Vaishali Dorsey CO2 [Moles/Vol] 32.4 mmol/L Critically high 21.0-32.0 [facility] Comment on above: Performed By: #### B MP ####[facility] [address] [place] [address]Dr. Vaishali Dorsey Creatinine [Mass/Vol] 1.00 mg/dL Normal 0.70-1.30 [facility] Comment on above: Performed By: #### B MP ####[facility] [address] [place] [address]Dr. Vaishali Dorsey EGFR-AF CITIZEN [place] >60 Normal >=60 [facility] Comment on above: Performed By: #### B MP ####[facility] [address] [place] [address]Dr. Vaishali Dorsey EGFR-NON AF CITIZEN OF [place] >60 Normal >=60 The [facility] Comment on above: Performed By: #### B MP ####[facility] [address] [place] [address]Dr. Vaishali Dorsey Glucose [Mass/Vol] 101 mg/dL Normal 74-106 The [facility] Comment on above: Performed By: #### B MP ####[facility] [address] [place], [place] [address]Dr. Vaishali Dorsey Potassium [Moles/Vol] 5.7 mmol/L Critically high 3.5-5.1 The [facility] Comment on above: Performed By: #### B MP ####[facility] [address] [place], [place] [address]Dr. Vaishali Dorsey Sodium [Moles/Vol] 142 mmol/L Normal 136-145 The [facility] Comment on above: Performed By: #### B MP ####[facility] [address] [place] [address]Dr. Vaishali Dorsey Urea nitrogen [Mass/Vol] 13.0 mg/dL Normal 7.0-18.0 [facility] Comment on above: Performed By: #### B MP ####[facility] [address] [place] [address]DrBraden Dorsey Urea nitrogen/Creatinin e [Mass ratio] 13.0 mg/mg Normal The [facility] Comment on above: Performed By: #### B MP ####[facility] [address] [place] [address]Dr. Vaishali Dorsey PROTIMEon 11-03-2022 INR Coag (PPP) [Relative time] 0.96 {INR} Normal [facility] Comment on above: Performed By: #### P T #### [facility] [address] [address] [address] Vaishali Dorsey INR GUIDELINES SEE BELOW Normal The [facility] Comment on above: Result Comment: JOSEF RED INR: 2.0 - 3.0 CONDITIONS NOT LISTED BELOW 2.5 - 3.5 FOR PROSTHETIC HEART VALVE REPLACEMENT 2.5 - 3.5 RECURRENT THROMBOSIS Performed By: #### P T #### [facility] [address] [address] [address] Vaishali Dorsey PT Coag (PPP) [Time] 10.2 s Normal 9.0-11.6 [facility] Comment on above: Performed By: #### P T #### [facility] [address] [address] [address] Vaishali Dorsey Consulton 10-18-2022 Consult [id number] Anna Nelson 1950 M Date Provider Department Center 10/18/2022 DENISHA HOPSON [facility] SURG Second Fl Family History Problem Relation Age of Onset Diverticulitis Mother Cancer Mother Family Status - Relation Status Age at Mother Level of Service:70099 [place] OFFICE/OUTPATIENT NEW MODERATE MDM 45-59 MINUTES Reason for Visit and Comments: Advice Only [550717] - Darrell states he has a polyp in rectum. Normal [facility] Covid-19 PCR (CVDTB)on 08-03 SARS-CoV-2 (COVID-19) RNA NICK+probe Ql (Unsp spec) Not detected Normal NOT DETECTED [facility] Comment on above: Result Comment: When [...] for this test is supported by the [place] of Health and Human Service's declaration that [...] used). Performed By: #### C VDTBH #### [facility] [address] [place] [address] Dr. Vaishali Dorsey CBC AUTO DIFFon 06-28-2022 BASO # 0.1 103/ul Normal 0.0-0.1 [facility] Comment on above: Performed By: #### C BC #### [facility] [address] [place] [address] Dr. Vaishali Dorsey Basophils/100 WBC (Bld) 0.6 % Normal 0.2-2.0 [facility] Comment on above: Performed By: #### C BC #### [facility] [address] [place] [address] Dr. Vaishali Dorsey EO # 0.3 103/ul Normal 0.0-0.7 [facility] Comment on above: Performed By: #### C BC #### [facility] [address] [place] [address] Dr. Vaishali Dorsey Eosinophils/100 WBC (Bld) 2.0 % Normal 0.9-7.0 [facility] Comment on above: Performed By: #### C BC #### [facility] [address] [place] [address] Dr. Vaishali Dorsey Erythrocyte distribution width (RBC) [Ratio] 16.4 % Critically high 11.0-15.0 [facility] Comment on above: Performed By: #### C BC #### [facility] [address] [place] [address] Dr. Vaishali Dorsey Hematocrit (Bld) [Volume fraction] 38.0 % Critically low 42.0-54.0 [facility] Comment on above: Performed By: #### C BC #### [facility] [address] [place] [address] Dr. Vaishali Dorsey Hemoglobin (Bld) [Mass/Vol] 11.8 g/dL Critically low 14.0-18.0 [facility] Comment on above: Performed By: #### C BC #### [facility] [address] [place] [address] Dr. Vaishali Dorsey IG # 0.04 10e3/ul Critically high 0.00-0.03 [facility] Comment on above: Performed By: #### C BC #### [facility] [address] [place] [address] Dr. Vaishali Dorsey IG % 0.3 % Normal 0.0-0.5 [facility] Comment on above: Performed By: #### C BC #### [facility] [address] [place] [address] Dr. Vaishali Dorsey LYMPH # 3.6 103/ul Normal 1.2-3.8 [facility] Comment on above: Performed By: #### C BC #### [facility] [address] [place] [address] Dr. Vaishali Dorsey Lymphocytes/100 WBC (Bld) 28.4 % Normal 20.5-60.0 [facility] Comment on above: Performed By: #### C BC #### [facility] [address] [place] [address] Dr. Vaishali Dorsey MANUAL DIFF REQ NO Normal [facility] Comment on above: Performed By: #### C BC #### [facility] [address] [place] [address] Dr. Vaishali Dorsey MCH (RBC) [Entitic mass] 25.2 pg Critically low 25.9-34.0 [facility] Comment on above: Performed By: #### C BC #### [facility] [address] [place] [address] Dr. Vaishali Dorsey MCHC (RBC) [Mass/Vol] 31.1 g/dL Normal 29.9-35.2 [facility] Comment on above: Performed By: #### C BC #### [facility] [address] [place] [address] Dr. Vaishali Dorsey MCV (RBC) [Entitic vol] 81.0 fL Normal 80.0-94.0 [facility] Comment on above: Performed By: #### C BC #### [facility] [address] [place] [address] Dr. Vaishali Dorsey MONO # 1.1 103/ul Critically high 0.3-0.8 [facility] Comment on above: Performed By: #### C BC #### [facility] [address] [place] [address] Dr. Vaishali Dorsey Monocytes/100 WBC (Bld) 8.3 % Normal 1.7-12.0 [facility] Comment on above: Performed By: #### C BC #### [facility] [address] [place] [address] Dr. Vaishali Dorsey NEUT # 7.6 103/ul Critically high 1.4-6.5 [facility] Comment on above: Performed By: #### C BC #### [facility] [address] [place] [address] Dr. Vaishali Dorsey Neutrophils/100 WBC (Bld) 60.4 % Normal 43.0-75.0 [facility] Comment on above: Performed By: #### C BC #### [facility] [address] [place] [address] Dr. Vaishali Dorsey Platelet mean volume (Bld) [Entitic vol] 10.7 fL Normal 9.5-13.5 [facility] Comment on above: Performed By: #### C BC #### [facility] [address] [place] [address] Dr. Vaishali Dorsey PLT 226 103/ul Normal 150-450 [facility] Comment on above: Performed By: #### C BC #### [facility] [address] [place] [address] Dr. Vaishali Dorsey RBC 4.69 106/ul Critically low 4.70-6.10 [facility] Comment on above: Performed By: #### C BC #### [facility] [address] [place] [address] Dr. Vaishali Dorsey WBC 12.6 103/ul Critically high 4.0-11.0 [facility] Comment on above: Performed By: #### C BC #### [facility] [address] [place] [address] Dr. Vaishali Dorsey FERRITINon 06-28-2022 Ferritin [Mass/Vol] 8.0 ng/mL Critically low 26.0-388.0 [facility] Comment on above: Performed By: #### F ERR #### [facility] [address] [place] [address] Dr. Vaishali Dorsey PROF 14(COMP METB)on 022 Albumin [Mass/Vol] 3.8 g/dL Normal 3.4-5.0 [facility] Comment on above: Performed By: #### C MP #### [facility] [address] [place] [address] Dr. Vasihali Dorsey Albumin/Globulin [Mass ratio] 1.1 {ratio} Normal [facility] Comment on above: Performed By: #### C MP #### [facility] [address] [place] [address] Dr. Vaishali Dorsey ALP [Catalytic activity/Vol] 66 U/L Normal 46-116 [facility] Comment on above: Performed By: #### C MP #### [facility] [address] [place] [address] Dr. Vaishali Dorsey ALT [Catalytic activity/Vol] 22 U/L Normal 16-63 [facility] Comment on above: Performed By: #### C MP #### [facility] [address] [place] [address] Dr. Vaishali Dorsey Anion gap [Moles/Vol] 10.4 mmol/L Normal [facility] Comment on above: Performed By: #### C MP #### [facility] [address] [address] [address] Vaishali Dorsey AST [Catalytic activity/Vol] 19 U/L Normal 15-37 [facility] Comment on above: Performed By: #### C MP #### [facility] [address] [place] [address] Dr. Vaishali Dorsey Bilirubin [Mass/Vol] 0.2 mg/dL Normal 0.2-1.0 [facility] Comment on above: Performed By: #### C MP #### [facility] [address] [place] [address] Dr. Vaishali Dorsey Calcium [Mass/Vol] 9.2 mg/dL Normal 8.5-10.1 [facility] Comment on above: Performed By: #### C MP #### [facility] [address] [place] [address] Dr. Vaishali Dorsey Chloride [Moles/Vol] 107 mmol/L Normal 98-107 [facility] Comment on above: Performed By: #### C MP #### [facility] [address] [place] [address] Dr. Vaishali Dorsey CO2 [Moles/Vol] 31.2 mmol/L Normal 21.0-32.0 [facility] Comment on above: Performed By: #### C MP #### [facility] [address] [place] [address] Dr. Vaishali Dorsey Creatinine [Mass/Vol] 1.02 mg/dL Normal 0.70-1.30 [facility] Comment on above: Performed By: #### C MP #### [facility] [address] [place] [address] Dr. Vaishali Dorsey EGFR-AF [place]IZ[place] >60 Normal >=60 [facility] Comment on above: Performed By: #### C MP #### [facility] [address] [address] [address] Vaishali Dorsey EGFR-NON AF CITIZEN [place] >60 Normal >=60 [facility] Comment on above: Performed By: #### C MP #### [facility] [address] [address] [address] Vaishali Dorsey Globulin (S) [Mass/Vol] 3.6 g/dL Normal [facility] Comment on above: Performed By: #### C MP #### [facility] [address] [address] [address] Vaishali Dorsey Glucose [Mass/Vol] 101 mg/dL Normal 74-106 [facility] Comment on above: Performed By: #### C MP #### [facility] [address] [place] [address] Dr. Vaishali Dorsey Potassium [Moles/Vol] 4.6 mmol/L Normal 3.5-5.1 [facility] Comment on above: Performed By: #### C MP #### [facility] [address] [place] [address] Dr. Vaishali Dorsey Protein [Mass/Vol] 7.4 g/dL Normal 6.4-8.2 [facility] Comment on above: Performed By: #### C MP #### [facility] [address] [place] [address] Dr. Vaishali Dorsey Sodium [Moles/Vol] 144 mmol/L Normal 136-145 [facility] Comment on above: Performed By: #### C MP #### [facility] [address] [place] [address] Dr. Vaishali Dorsey Urea nitrogen [Mass/Vol] 14.0 mg/dL Normal 7.0-18.0 [facility] Comment on above: Performed By: #### C MP #### [facility] [address] [place] [address] Dr. Vaishali Dorsey Urea nitrogen/Creatinin e [Mass ratio] 13.7 mg/mg Normal [facility] Comment on above: Performed By: #### C MP #### [facility] [address] [address] [address] Vaishali Dorsey PSA, FREE AND TOTAL [facility] 04-21-2022 % Free PSA 18.9 % Normal [facility] Comment on above: Result Comment: The table [...] men. Performed By: #### P SAFREE #### [facility] [address] [place] [address] Dr. Vaishali Dorsey Prostate specific Ag [Mass/Vol] 6.5 ng/mL Critically high 0.0-4.0 [facility] Comment on above: Result Comment: Roch ronda ECLIA methodology. . According to the [place] [employer], Serum PSA should decrease and [...] disease. Performed By: #### P SAFREE #### [facility] [address] [place] [address] Dr. Vaishali Dorsey PSA, Free 1.23 ng/mL Normal N/A [facility] Comment on above: Result Comment: Roch e ECLIA methodology. Performed By: #### P SAFREE #### [facility] [address] [place] [address] Dr. 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 This test has not been FDA cleared [...] is terminated or revoked sooner. PERFORMED BY: [place] [address] PATHOLOGIST LO[employer]ING [employer] KAMERON MARTIN M.D. Performed By: #### C OVID 19 [facility] #### [address] Basic Metabolic Panlon 10-22 Anion gap 12 mmol/L Normal 9-18 [facility] Comment on above: Performed By: #### I CA, CBCDIF, VITD, PTHI, CMP, URIC ####[facility] [address] [place], [place] [phone] Calcium 8.2 mg/dL Low 8.5-10.2 [facility] Comment on above: Performed By: #### I CA, CBCDIF, VITD, PTHI, CMP, URIC ####[facility] [address] [place] [place], [place] [phone] Chloride 102 mmol/L Normal 97-105 [facility] Comment on above: Performed By: #### I CA, CBCDIF, VITD, PTHI, CMP, URIC ####[facility] [address] [place] [address], [place] [phone] CO2 26 mmol/L Normal 22-30 [facility] Comment on above: Performed By: #### I CA, CBCDIF, VITD, PTHI, CMP, URIC ####[facility] [place], [place] [phone] Creatinine 0.98 mg/dL Normal 0.73-1.22 [facility] Comment on above: Performed By: #### I CA, CBCDIF, VITD, PTHI, CMP, URIC ####[place] [address] [place], [place] [phone] eGFR (non-black) mL/min/{1.73_m2} Normal [facility] Comment on above: Result Comment: eGFR [...] I CA, CBCDIF, VITD, PTHI, CMP, URIC ####[address] [place], [place] [phone] Glucose mass conc 85 mg/dL Normal 74-99 [facility] Comment on above: Result Comment: The [place] [employer] (ADA) provides guidance for cutoff [...] Standards of Medical Care in Diabetes 2016, [place] [employer]. Diabetes Care. 2016.39(Suppl 1). Performed By: #### I CA, CBCDIF, VITD, PTHI, CMP, URIC ####[place] [address] [place], [place] [phone] Potassium molar conc 3.5 mmol/L Low 3.7-5.1 [facility] Comment on above: Performed By: #### I CA, CBCDIF, VITD, PTHI, CMP, URIC ####[place] [address] [place] [phone] Sodium 140 mmol/L Normal 136-144 [facility] Comment on above: Performed By: #### I CA, CBCDIF, VITD, PTHI, CMP, URIC ####[place] [address] [place] [place] [phone] Urea nitrogen 5 mg/dL Low 9-24 [facility] Comment on above: Performed By: #### I CA, CBCDIF, VITD, PTHI, CMP, URIC ####[place] [address] [place] [place], [place] [phone] CBCon 10-22-2017 Erythrocyte distribution width Auto Ratio (RBC) 13.1 % Normal 11.5-15.0 [facility] Comment on above: Performed By: #### I CA, CBCDIF, VITD, PTHI, CMP, URIC ####[place] [address] [place], [place] [phone] Erythrocytes (RBC) 10*6/uL Normal <0.01 [facility] Comment on above: Performed By: #### I CA, CBCDIF, VITD, PTHI, CMP, URIC ####[place] [address] [place], [place] [phone] Erythrocytes (RBC) 3.32 10*6/uL Low 4.20-6.00 [facility] Comment on above: Performed By: #### I CA, CBCDIF, VITD, PTHI, CMP, URIC ####[place] [address] [place] [phone] Hematocrit (HCT) 29.6 % Low 39.0-51.0 [facility] Comment on above: Performed By: #### I CA, CBCDIF, VITD, PTHI, CMP, URIC ####[address] [phone] Hemoglobin mass conc (Bld) 9.8 g/dL Low 13.0-17.0 [facility] Comment on above: Performed By: #### I CA, CBCDIF, VITD, PTHI, CMP, URIC ####[place] [phone] MCH 29.5 pG Normal 26.0-34.0 [facility] Comment on above: Performed By: #### I CA, CBCDIF, VITD, PTHI, CMP, URIC ####[place] [phone] MCHC mass conc (RBC) 33.1 g/dL Normal 30.5-36.0 [facility] Comment on above: Performed By: #### I CA, CBCDIF, VITD, PTHI, CMP, URIC ####[address] [place] [phone] MCV 89.2 fL Normal 80.0-100.0 [facility] Comment on above: Performed By: #### I CA, CBCDIF, VITD, PTHI, CMP, URIC ####[address] [place] [phone] Platelet mean volume (PMV) 10.5 fL Normal 9.0-12.7 [facility] Comment on above: Performed By: #### I CA, CBCDIF, VITD, PTHI, CMP, URIC ####[facility] [address] [place], [place] [phone] Platelets 267 10*3/uL Normal 150-400 [facility] Comment on above: Performed By: #### I CA, CBCDIF, VITD, PTHI, CMP, URIC ####[facility] [address] [place], [place] [phone] WBC (Leukocytes) 10.19 10*3/uL Normal 3.70-11.00 [facility] Comment on above: Performed By: #### I CA, CBCDIF, VITD, PTHI, CMP, URIC ####[facility] [address] [place], [place] [phone] CNDSon 10-22-2017 CNDS HNO ID: [id number] thor: Feliciano Santanaervice: UrologyAuthor Type: PhysicianType: Discharge SummariesFiled: 10/23/2017 8:54 AMNote Text:DISCHARGE SUMMARYPATIENT NAME: Darrell Nelson ADMISSION DATE: 10/21/2017MRN: [id number] DISCHARGE DATE: 10/22/2017Attending Physician: Feliciano Vega for [...] of this patient.SIGNATURE: Tk Abdalla MD PAGER: [phone]: October 22, 2017TIME: 9:32 AMRADHA Johnirector, Surgical Stone Disease, [facility]rologic InstituteProfessor of Surgery, Grant HospitalPager [phone]/23/2017 [facility] d [facility] PROGRESSon 10-22-2017 PROGRESS HNO ID: [id number] thor: Tk (ResNIK Newtonervice: UrologyAuthor Type: ResidentType: Progress NotesFiled: 10/22/2017 9:14 [...] lb 4 oz) SpO2 95% BMI 25.43 kg/j9Efnjxaczanb max: Temp (24hrs), Av.1 ?C (98.7 ?F), Min:36.8 ?C (98.3?F), Max:37.2 ?C (99 ?F)Intake/Output 10/21/17 0700 - 10/22/17 0659 10/22/17 0700 - 10/23/17 0659 Intake (ml) 2180 -- Output (ml) 2550 650 Net (ml) -370 -650LABS:BUN (mg/dL)Date Value10/22/2017 501 801 701 912 10 Creatinine (mg/dL)Date Value10/22/2017 0.9801 0.9210/13/2017 0.9001 1.0012 1.05 Recent Labs 464133SNA 10.19HB 9.8*HCT 29.6*NA 140K 3.5*CHLOR 102CO2 26GLUC 85Glucose, Urine (mg/dL)Date Value10/21/2017 Negative Bilirubin, Urine (no units)Date Value10/21/2017 Negative Ketones, Urine (no units)Date Value10/21/2017 Negative Specific [place], Ur (no units)Date Value10/21/2017 1.010 Hemoglobin/Blood ,Ur ( )Date Value10/21/2017 3+ (A) pH, Urine (no units)Date Value10/21/2017 6.0 Protein, Urine (mg/dL)Date Value10/21/2017 30 (A) Nitrites (no units)Date Value10/21/2017 Negative WBC, Urine (/HPF)Date Value10/21/2017 >25 (A) Color (no units)Date Value10/21/2017 Yellow Clarity (no units)Date Value10/21/2017 Cloudy (A) Assessment/PlanAct [facility] Problems Leukocytosis [D72.829]Mr. Nelson is a 67 [...] 22, 2017 : 7:31 AM PAGER/CONTACT #: [phone] Normal [facility] Basic Metabolic Panlon 10-21 Anion gap 14 mmol/L Normal 9-18 [facility] Comment on above: Performed By: #### I CA, CBCDIF, VITD, PTHI, CMP, URIC ####[facility] AveCRebecca [place] [phone] Calcium 8.3 mg/dL Low 8.5-10.2 [facility] Comment on above: Performed By: #### I CA, CBCDIF, VITD, PTHI, CMP, URIC ####[facility] AveCRebecca [place] [phone] Chloride 104 mmol/L Normal 97-105 [facility] Comment on above: Performed By: #### I CA, CBCDIF, VITD, PTHI, CMP, URIC ####[facility] AveCBryan [place] [phone] CO2 25 mmol/L Normal 22-30 [facility] Comment on above: Performed By: #### I CA, CBCDIF, VITD, PTHI, CMP, URIC ####[facility] AveCRebecca [place] [phone] Creatinine 0.92 mg/dL Normal 0.73-1.22 [facility] Comment on above: Performed By: #### I CA, CBCDIF, VITD, PTHI, CMP, URIC ####[facility] AveClevelSteven Ville [phone] eGFR (non-black) mL/min/{1.73_m2} Normal [facility] Comment on above: Result Comment: eGFR [...] I CA, CBCDIF, VITD, PTHI, CMP, URIC ####[facility] [place], [place] [phone] Glucose mass conc 79 mg/dL Normal 74-99 [facility] Comment on above: Result Comment: The [place] Diabetes Association (ADA) provides guidance for cutoff [...] Standards of Medical Care in Diabetes 2016, [place] [employer]. Diabetes Care. 2016.39(Suppl 1). Performed By: #### I CA, CBCDIF, VITD, PTHI, CMP, URIC ####[place] [id number] [place], [place] [phone] Potassium molar conc 3.7 mmol/L Normal 3.7-5.1 [facility] Comment on above: Performed By: #### I CA, CBCDIF, VITD, PTHI, CMP, URIC ####[facility] [place], [place] [phone] Sodium 143 mmol/L Normal 136-144 [facility] Comment on above: Performed By: #### I CA, CBCDIF, VITD, PTHI, CMP, URIC ####[facility] [place], [place] [phone] Urea nitrogen 8 mg/dL Low 9-24 [facility] Comment on above: Performed By: #### I CA, CBCDIF, VITD, PTHI, CMP, URIC ####[place] [address] AveCRebecca [place] [phone] CBC and Differentialon 10-21 Abs Baso 0.05 k/uL Normal <0.11 [facility] Comment on above: Performed By: #### I CA, CBCDIF, VITD, PTHI, CMP, URIC ####[place] [phone] Abs Radford 0.81 k/uL Normal <0.87 [facility] Comment on above: Performed By: #### I CA, CBCDIF, VITD, PTHI, CMP, URIC ####[place] [address] [place] [phone] Abs Neut 6.30 k/uL Normal 1.45-7.50 [facility] Comment on above: Performed By: #### I CA, CBCDIF, VITD, PTHI, CMP, URIC ####[place] [address] [place] [phone] Basophils/100 WBC Auto (Bld) 0.5 % Normal [facility] Comment on above: Performed By: #### I CA, CBCDIF, VITD, PTHI, CMP, URIC ####[place] [address] [address] [place]Guy [place] [phone] DTYPE Auto Diff Normal [facility] Comment on above: Performed By: #### I CA, CBCDIF, VITD, PTHI, CMP, URIC ####[place] [address] [address] AvTe[address] [place] [phone] Eosinophils 0.24 10*3/uL Normal <0.46 [facility] Comment on above: Performed By: #### I CA, CBCDIF, VITD, PTHI, CMP, URIC ####[place] [address] [place] [phone] Eosinophils/100 leukocytes 2.3 % Normal [facility] Comment on above: Performed By: #### I CA, CBCDIF, VITD, PTHI, CMP, URIC ####[place] [address] AveClevelSteven [place] [phone] Erythrocyte distribution width Auto Ratio (RBC) 13.1 % Normal 11.5-15.0 [facility] Comment on above: Performed By: #### I CA, CBCDIF, VITD, PTHI, CMP, URIC ####[place] [address] [place] [phone] Erythrocytes (RBC) 3.34 10*6/uL Low 4.20-6.00 [facility] Comment on above: Performed By: #### I CA, CBCDIF, VITD, PTHI, CMP, URIC ####[place] [address] [place] [phone] Erythrocytes (RBC) 10*6/uL Normal <0.01 [facility] Comment on above: Performed By: #### I CA, CBCDIF, VITD, PTHI, CMP, URIC ####[place] [address] [address] [place] [phone] Erythrocytes (RBC) 0.0 /100 WBC Normal 0 [facility] Comment on above: Performed By: #### I CA, CBCDIF, VITD, PTHI, CMP, URIC ####[place] [address]CRe[address] [place] [phone] Hematocrit (HCT) 30.2 % Low 39.0-51.0 [facility] Comment on above: Performed By: #### I CA, CBCDIF, VITD, PTHI, CMP, URIC ####[place] [address] [address] [place] [phone] Hemoglobin mass conc (Bld) 10.2 g/dL Low 13.0-17.0 [facility] Comment on above: Performed By: #### I CA, CBCDIF, VITD, PTHI, CMP, URIC ####[place] [address] [place] [phone] Lymphocytes 3.06 10*3/uL Normal 1.00-4.00 [facility] Comment on above: Performed By: #### I CA, CBCDIF, VITD, PTHI, CMP, URIC ####[place] [phone] Lymphocytes/100 leukocytes 29.3 % Normal [facility] Comment on above: Performed By: #### I CA, CBCDIF, VITD, PTHI, CMP, URIC ####[place] [address] [address]Sheena [place] [phone] MCH 30.5 pG Normal 26.0-34.0 [facility] Comment on above: Performed By: #### I CA, CBCDIF, VITD, PTHI, CMP, URIC ####[place] [address] [address] [place] [phone] MCHC mass conc (RBC) 33.8 g/dL Normal 30.5-36.0 [facility] Comment on above: Performed By: #### I CA, CBCDIF, VITD, PTHI, CMP, URIC ####[place] [address] [address] [place] [phone] MCV 90.4 fL Normal 80.0-100.0 [facility] Comment on above: Performed By: #### I CA, CBCDIF, VITD, PTHI, CMP, URIC ####[place] [address] [address]CGeorge [place] [phone] Monocytes/100 leukocytes 7.7 % Normal [facility] Comment on above: Performed By: #### I CA, CBCDIF, VITD, PTHI, CMP, URIC ####[place] [address] [address], [place] [phone] Neutrophils/100 WBC Auto (Bld) 60.2 % Normal [facility] Comment on above: Performed By: #### I CA, CBCDIF, VITD, PTHI, CMP, URIC ####[place] [address] [place], [place] [phone] Platelet mean volume (PMV) 10.7 fL Normal 9.0-12.7 [facility] Comment on above: Performed By: #### I CA, CBCDIF, VITD, PTHI, CMP, URIC ####[address] [phone] Platelets 260 10*3/uL Normal 150-400 [facility] Comment on above: Performed By: #### I CA, CBCDIF, VITD, PTHI, CMP, URIC ####[address] [phone] WBC (Leukocytes) 10.46 10*3/uL Normal 3.70-11.00 [facility] Comment on above: Performed By: #### I CA, CBCDIF, VITD, PTHI, CMP, URIC ####[address] [phone] Protimeon 10-21-2017 INR Coag RelTime (Bld) 1.0 {INR} Normal 0.9-1.3 [facility] Comment on above: Result Comment: Laisha min K Antagonist (VKA) Therapeutic Range: INR 2 to 3 (Target INR of 2.5)Note: For patients treated with VKA drugs, such as warfarin, the [place] [employer] 2012 Guideline recommends [...] al. Chest 2012, 141:7S-47SNishimura RA, et al. [facility] 2017, 70: 252-289 Performed By: #### I CA, CBCDIF, VITD, PTHI, CMP, URIC ####[facility]CRebecca [place] [phone] PT Sec 10.4 sec Normal 9.7-13.0 [facility] Comment on above: Performed By: #### I CA, CBCDIF, VITD, PTHI, CMP, URIC ####[place] [address] [address]CR[address] [place] [phone] Type and Screenon 10-21-2017 ABO/RH(D) Positive Normal [facility] Comment on above: Performed By: #### I CA, CBCDIF, VITD, PTHI, CMP, URIC ####[place] [address] [place] [phone] Antibody Screen Negative Normal [facility] Comment on above: Performed By: #### I CA, CBCDIF, VITD, PTHI, CMP, URIC ####[place] [address] [place] [phone] Urinalysison 10-21-2017 Bilirubin, Urine Negative Normal Negative [facility] Comment on above: Performed By: #### I CA, CBCDIF, VITD, PTHI, CMP, URIC ####[place] [address]CRe[address] [place] [phone] Comments SEE COMMENT Normal [facility] Comment on above: Result Comment: Micr oscopic Examination Performed Performed By: #### I CA, CBCDIF, VITD, PTHI, CMP, URIC ####[place] [address] [place] [phone] Erythrocytes (RBC) 10*6/uL Critically abnormal 0-3 [facility] Comment on above: Performed By: #### I CA, CBCDIF, VITD, PTHI, CMP, URIC ####[place] [address]CRe[address] [place] [phone] Hemoglobin mass conc (Bld) 3+ Critically abnormal Negative [facility] Comment on above: Performed By: #### I CA, CBCDIF, VITD, PTHI, CMP, URIC ####[place] [address] [address] AveCBryan [place] [phone] Leukest 3+ Critically abnormal Negative [facility] Comment on above: Performed By: #### I CA, CBCDIF, VITD, PTHI, CMP, URIC ####[place] [address] [address] [place] [phone] pH of blood 6.0 [pH] Normal 4.5-8.0 [facility] Comment on above: Performed By: #### I CA, CBCDIF, VITD, PTHI, CMP, URIC ####[place] [address] [address] [place] [phone] Protein, Urine 30 mg/dL Critically abnormal Negative [facility] Comment on above: Performed By: #### I CA, CBCDIF, VITD, PTHI, CMP, URIC ####[place] [address] [place] [phone] Specific [place], Ur 1.010 Normal 1.005-1.03 0 [facility] Comment on above: Performed By: #### I CA, CBCDIF, VITD, PTHI, CMP, URIC ####[place] [address] [place] [phone] Urine Kelby Comment SEE COMMENT Normal [facility] Comment on above: Result Comment: N/A Performed By: #### I CA, CBCDIF, VITD, PTHI, CMP, URIC ####[place] [address] [address] AveClevelandElizabeth [place] [address] Urine, clarity Cloudy Critically abnormal Clear [facility] Comment on above: Performed By: #### I CA, CBCDIF, VITD, PTHI, CMP, URIC ####[facility] [address] AveCClayton [place] [phone] Urine, color Yellow Normal Yellow [facility] Comment on above: Performed By: #### I CA, CBCDIF, VITD, PTHI, CMP, URIC ####[facility] [address] AveCCrystal [place] [address] Urine, epithelial cells in sediment SEE COMMENT Normal [facility] Comment on above: Result Comment: FewS quamous Epithelial Cells Performed By: #### I CA, CBCDIF, VITD, PTHI, CMP, URIC ####[place] [address] [address]CClay[address] [place] [phone] Urine, glucose presence Negative Normal Negative [facility] Comment on above: Performed By: #### I CA, CBCDIF, VITD, PTHI, CMP, URIC ####[place] [address] [address] [place] [address] Urine, ketones presence Negative Normal Negative [facility] Comment on above: Performed By: #### I CA, CBCDIF, VITD, PTHI, CMP, URIC ####[facility]CC[place] [address] Urine, nitrite presence Negative Normal Negative [facility] Comment on above: Performed By: #### I CA, CBCDIF, VITD, PTHI, CMP, URIC ####[place] [address] [place]CC[place] [address] Urine, urobilinogen Normal Normal Normal [facility] Comment on above: Performed By: #### I CA, CBCDIF, VITD, PTHI, CMP, URIC ####[place] [address] [place] [place] [address] WBC (Leukocytes) 10*3/uL Critically abnormal 0-5 [facility] Comment on above: Performed By: #### I CA, CBCDIF, VITD, PTHI, CMP, URIC ####[facility] [address] [place], [place] [phone] Urine Cultureon 10-21-2017 Urine culture, bacteria Sp. Request/Comment: - Specimen received in preservative Culture Result - No growth (<1,000 CFU/ml) Normal [facility] Comment on above: Performed By: #### I CA, CBCDIF, VITD, PTHI, CMP, URIC ####[facility] [address] [place], [place] [phone] HISTORY PHYSICALon 8 HISTORY PHYSICAL HNO ID: [id number] thor: Tk (Res) NIK Abdallaervice: UrologyAuthor Type: ResidentType: HANDPFiled: 10/21/2017 2:31 PMNote Text:HANDP: UROLOGY SERVICENAME: Darrell CmdMRN: [id number]: [id number] DATE: 10/19/2017SERVICE TIME: 5:04 AMPRICROSSBRIDGE BEHAVIORAL [facility] C[facility] PHYSICIAN: Abigail Sanchez, JUSTINOLLOYD AND CARLOS. Alvin is a 67 year old male [...] with Dr. Adarsh Abdalla III, MDUrology PGY-2Pager: [phone] 201710:00Overnight and on weekends please page [phone] OF PRESENT ILLNESSMr. Nelson is a 67 year old male [...] and 14mm in R renal pelvis Normal [facility] Basic Metabolic Panlon 10-13 Anion gap 12 mmol/L Normal 9-18 [facility] Comment on above: Performed By: #### I CA, CBCDIF, VITD, PTHI, CMP, URIC ####[facility] [address] [place], [place] [phone] Calcium 8.2 mg/dL Low 8.5-10.2 [facility] Comment on above: Performed By: #### I CA, CBCDIF, VITD, PTHI, CMP, URIC ####[facility] [address] [place], [place] [phone] Chloride 103 mmol/L Normal 97-105 [facility] Comment on above: Performed By: #### I CA, CBCDIF, VITD, PTHI, CMP, URIC ####[facility] [address] [place]Sheena [place] [phone] CO2 25 mmol/L Normal 22-30 [facility] Comment on above: Performed By: #### I CA, CBCDIF, VITD, PTHI, CMP, URIC ####[facility] [address] [place], [place] [phone] Creatinine 0.90 mg/dL Normal 0.73-1.22 [facility] Comment on above: Performed By: #### I CA, CBCDIF, VITD, PTHI, CMP, URIC ####[facility] [address] AvBethune, [place] [phone] eGFR (non-black) mL/min/{1.73_m2} Normal [facility] Comment on above: Performed By: #### I CA, CBCDIF, VITD, PTHI, CMP, URIC ####[facility] [place], [place] [phone] Result Comment: eGFR (Estimated GFR) Units of [...] Glucose mass conc 95 mg/dL Normal 74-99 [facility] Comment on above: Result Comment: The [place] Diabetes [employer] (ADA) provides guidance for cutoff [...] Standards of Medical Care in Diabetes 2016, [place] [employer]. Diabetes Care. 2016.39(Suppl 1). Performed By: #### I CA, CBCDIF, VITD, PTHI, CMP, URIC ####[place] [phone] Potassium molar conc 3.9 mmol/L Normal 3.7-5.1 [facility] Comment on above: Performed By: #### I CA, CBCDIF, VITD, PTHI, CMP, URIC ####[place] [phone] Sodium 140 mmol/L Normal 136-144 [facility] Comment on above: Performed By: #### I CA, CBCDIF, VITD, PTHI, CMP, URIC ####[place] [phone] Urea nitrogen 7 mg/dL Low 9-24 [facility] Comment on above: Performed By: #### I CA, CBCDIF, VITD, PTHI, CMP, URIC ####[place] [phone] CBC and Differentialon 10-13 Abs Baso 0.03 k/uL Normal <0.11 [facility] Comment on above: Performed By: #### I CA, CBCDIF, VITD, PTHI, CMP, URIC ####[address] [place] [phone] Abs Radford 1.28 k/uL High <0.87 [facility] Comment on above: Performed By: #### I CA, CBCDIF, VITD, PTHI, CMP, URIC ####[address] [place] [phone] Abs Neut 8.97 k/uL High 1.45-7.50 [facility] Comment on above: Performed By: #### I CA, CBCDIF, VITD, PTHI, CMP, URIC ####[facility]CRe[address] [place] [phone] Basophils/100 WBC Auto (Bld) 0.2 % Normal [facility] Comment on above: Performed By: #### I CA, CBCDIF, VITD, PTHI, CMP, URIC ####[place] [address] [address] [place] [phone] DTYPE Auto Diff Normal [facility] Comment on above: Performed By: #### I CA, CBCDIF, VITD, PTHI, CMP, URIC ####[place] [address] [address] [place] [phone] Eosinophils 0.20 10*3/uL Normal <0.46 [facility] Comment on above: Performed By: #### I CA, CBCDIF, VITD, PTHI, CMP, URIC ####[place] [address] [address] [place] [phone] Eosinophils/100 leukocytes 1.6 % Normal [facility] Comment on above: Performed By: #### I CA, CBCDIF, VITD, PTHI, CMP, URIC ####[place] [address] [address] [place] [phone] Erythrocyte distribution width Auto Ratio (RBC) 12.4 % Normal 11.5-15.0 [facility] Comment on above: Performed By: #### I CA, CBCDIF, VITD, PTHI, CMP, URIC ####[place] [address] [address] [place] [phone] Erythrocytes (RBC) 4.29 10*6/uL Normal 4.20-6.00 [facility] Comment on above: Performed By: #### I CA, CBCDIF, VITD, PTHI, CMP, URIC ####[place] [address] [place] [phone] Erythrocytes (RBC) 0.0 /100 WBC Normal 0 [facility] Comment on above: Performed By: #### I CA, CBCDIF, VITD, PTHI, CMP, URIC ####[place] [address] [address] [place] [phone] Erythrocytes (RBC) 10*6/uL Normal <0.01 [facility] Comment on above: Performed By: #### I CA, CBCDIF, VITD, PTHI, CMP, URIC ####[place] [address] [place] [phone] Hematocrit (HCT) 38.8 % Low 39.0-51.0 [facility] Comment on above: Performed By: #### I CA, CBCDIF, VITD, PTHI, CMP, URIC ####[place] [phone] Hemoglobin mass conc (Bld) 12.7 g/dL Low 13.0-17.0 [facility] Comment on above: Performed By: #### I CA, CBCDIF, VITD, PTHI, CMP, URIC ####[place] [phone] Lymphocytes 2.16 10*3/uL Normal 1.00-4.00 [facility] Comment on above: Performed By: #### I CA, CBCDIF, VITD, PTHI, CMP, URIC ####[place] [address] [address] [place] [phone] Lymphocytes/100 leukocytes 17.1 % Normal [facility] Comment on above: Performed By: #### I CA, CBCDIF, VITD, PTHI, CMP, URIC ####[place] [address] [address] [place] [phone] MCH 29.6 pG Normal 26.0-34.0 [facility] Comment on above: Performed By: #### I CA, CBCDIF, VITD, PTHI, CMP, URIC ####[place] [address] [address], [place] [phone] MCHC mass conc (RBC) 32.7 g/dL Normal 30.5-36.0 [facility] Comment on above: Performed By: #### I CA, CBCDIF, VITD, PTHI, CMP, URIC ####[place] [address] [address], [place] [phone] MCV 90.4 fL Normal 80.0-100.0 [facility] Comment on above: Performed By: #### I CA, CBCDIF, VITD, PTHI, CMP, URIC ####[place] [address] [address] [place] [phone] Monocytes/100 leukocytes 10.1 % Normal [facility] Comment on above: Performed By: #### I CA, CBCDIF, VITD, PTHI, CMP, URIC ####[place] [address] [address], [place] [phone] Neutrophils/100 WBC Auto (Bld) 71.0 % Normal [facility] Comment on above: Performed By: #### I CA, CBCDIF, VITD, PTHI, CMP, URIC ####[place] [address] [address], [place] [phone] Platelet mean volume (PMV) 11.3 fL Normal 9.0-12.7 [facility] Comment on above: Performed By: #### I CA, CBCDIF, VITD, PTHI, CMP, URIC ####[place] [address] [address], [place] [phone] Platelets 138 10*3/uL Low 150-400 [facility] Comment on above: Result Comment: Resu lt checked and verifiedNo clot detected. Performed By: #### I CA, CBCDIF, VITD, PTHI, CMP, URIC ####[place] [address] [address], [place] [phone] WBC (Leukocytes) 12.64 10*3/uL High 3.70-11.00 [facility] Comment on above: Performed By: #### I CA, CBCDIF, VITD, PTHI, CMP, URIC ####[facility] [place], [place] [phone] CNDSon 10-13-2017 CNDS HNO ID: [id number] thor: Feliciano Santanaervice: UrologyAuthor Type: PhysicianType: Discharge SummariesFiled: 10/15/2017 3:53 PMNote Text:[facility] [place], [place] [id number] or ([phone] [facility] [place] [facility] N F I D E N T I A L I N F O R M A T I O N STANDARD [facility] DOCUMENTDISCHARGE SUMMARYPatient Name: Darrell Silverio Date: [...] hours for 3 days. Take 1000mg Tylenol ([id number] tablets) every 6 hours for 3 days. [...] SIGNED by Licensed Independent Practitioner: Carlos Eduardo Dorantes, MDDirector, Surgical Stone Disease, [facility] InstituteProfessor of Surgery, [facility] MedicinePager [phone]/15/2017 Normal [facility] PLAN OF CAREon 10-13-2017 PLAN OF CARE HNO ID: [id number] thor: Angelique Serrano (Seed Potato Arranger)Service: (none)Author Type: (none)Type: Plan of CareFiled: 10/13/2017 8:44 AMNote Text:[facility] BEDSIDE DELIVERY SURVEY1. Patient to use [facility] Bedside Delivery - NO prefer ownpharmacy2. If fax, patient would like us to fax prescriptions to [facility] a. Pharmacy: b. Location: c. Phone:3. Insurance card on file - NO4. Credit card for payment - NO Normal [facility] PROGRESSon 10-13-2017 PROGRESS HNO ID: [id number] thor: Shelly Cabrera) O'NeillService: UrologyAuthor Type: Nurse PractitionerType: Progress NotesFiled: 10/13/2017 11:00 AMNote Text:UROLOGY SERVICE PROGRESS NOTEName: Darrell CmdBed: G090 013/S393-99HLI: [id number]: October 13, 2017ASSESSMENT AND PLANDarrell Emmanuelle Nelson is a 67 year old male with history of HTN, nephrolithiasisnow POD#2 s/p PCNL and R JJ stent placement.#Neuro-Pain controlled on Tylenol#CV/Phrq-SRU-Xvy stable-Continue incentive spirometer use#GI-Diet - GI Soft/regular diet; tolerating without N/V#-Scr 0.90-UOP good-Christian: removed- voiding without difficulty#FEN-IVF NS @ 125 ml/hr#Activity - OOB to chair and Ambulate with assistance#DVT prophylaxis - SCDs, Pharmacologic DVT prophylaxis contraindicated dueto bleeding risk#Antibiotics - Perioperative antibiotics - Ancef#Secondary Dx and ComplicationsHTN- c/w home medications; [facility] Urocit HELD#Discharge teaching - routine teaching#Disposition - Discharge home todaySUBJECTIVE-Pain:controlled -CP/SOB: Denies-N/V:Denies-Bowel function:+Flatus. No BM-Ambulating: YesBrief HPI: No acute events throughout the night. Denies fever, chills.Voiding without difficulty. Doing well. Eager for discharge home.OBJECTIVEVital SignsBP 154/79 Pulse 89 Temp 36.9 ?C (98.4 ?F) (Oral) Resp 20 Ht 175.3cm (5' 9 ) Wt 80 kg (176 lb 5.9 oz) SpO2 96% BMI 26.05 kg/w5Pnmuy and OutputIntake/Output Summary (Last 24 hours) at [...] mL ORAL q 6 H PRNphenol 1 [place] (CHLORASEPTIC) 1 [place] MUCOUS MEMBRANE (TOPICAL MOUTH ANDTHROAT) q 2 H PRNsimethicone, chewable 80 mg tab(s) (MYLICON) 80 mg ORAL q 8 H PRNoxybutynin 5 mg tab(s) (DITROPAN) 5 mg ORAL q 8 H PRNoxyCODONE IR 5-10 mg tab(s) (ROXICODONE) 5-10 mg ORAL q 4 H PRNNo past medical history on file.[facility]17IMPRESSION:NO ACUTE DISEASESIGNATURE: Shelly Cote CNP PAGER: [phone]: October 13, 2017TIME: 9:45amPlease page [phone] on weekends and after 4pm on weekdays Normal [facility] PROGRESS HNO ID: [id number] thor: Miguel (Res) IkekService: UrologyAuthor Type: ResidentType: Progress NotesFiled: 10/13/2017 6:47 AMNote Text:UROLOGY RESIDENT PROGRESS NOTEName: Darrell Handley BoydBed: G090 013/N857-63YOD: [id number]: October 13, 2017 =====SUBJECTIVE- no acute events overnight-Pain: controlled-N/V : No- Tolerated diet, ambulating, +ROBF ======OBJECTIVEVital SignsPatient Vitals for the past 8 hrs: BP Temp Temp src Pulse Resp KoR83010/13/17 0300 144/71 36.7 ?C (98 ?F) Oral [...] Normal affectLabCBC, Coags, BMP, Mg, PhosRecent Labs 10/12/1801650WBC 12.64* 14.41* 16.46*HB 12.7* 11.9* 13.7HCT 38.8* 35.9* 39.7PLT 138* 124* 147*INR -- 1.0 --APTT -- 27.4 --NA 140 142 --K 3.9 4.0 --CHLOR 103 103 --CO2 25 31* --BUN 7* 9 --CREAT 0.90 1.00 --GLUC 95 100* --CA 8.2* 8.2* --MG -- 1.7 --ImagingCXR 10/11- The heart size is [...] mL ORAL q 6 H PRNphenol 1 [place] (CHLORASEPTIC) 1 [place] MUCOUS MEMBRANE (TOPICAL MOUTH ANDTHROAT) q 2 [...] staff Dr. Schroeder. ========Miguel Zapata M.D.Urology PGY-2Pager: [phone] [phone] AMOvernight and on weekends please page [phone] Normal [facility] APTTon 10-12-2017 aPTT 27.4 s Normal 23.0-32.4 [facility] Comment on above: Result Comment: Unfr actionated [...] laboratory APTT reagent in use throughout the [facility]. Performed By: #### P T, PTT, MG1 ####[facility] [address] AveCRebecca [place] [phone] Basic Metabolic Panlon 10-12 Anion gap 8 mmol/L Low 9-18 [facility] Comment on above: Performed By: #### C BCDIF, BMP ####[place] [address] [address] [place] [phone] Calcium 8.2 mg/dL Low 8.5-10.2 [facility] Comment on above: Performed By: #### C BCDIF, BMP ####[place] [address] [address] [place] [phone] Chloride 103 mmol/L Normal 97-105 [facility] Comment on above: Performed By: #### C BCDIF, BMP ####[place] [address] [address] [place] [phone] CO2 31 mmol/L High 22-30 [facility] Comment on above: Performed By: #### C BCDIF, BMP ####[place] [address] [address] [place] [phone] Creatinine 1.00 mg/dL Normal 0.73-1.22 [facility] Comment on above: Performed By: #### C BCDIF, BMP ####[place] [address] [address] [place] [phone] eGFR (non-black) mL/min/{1.73_m2} Normal [facility] Comment on above: Performed By: #### C BCDIF, BMP ####[place] [address] [address] [place] [phone] Result Comment: eGFR (Estimated GFR) Units of [...] Glucose mass conc 100 mg/dL High 74-99 [facility] Comment on above: Result Comment: The [place] Diabetes Association (ADA) provides guidance for cutoff [...] Standards of Medical Care in Diabetes 2016, [place] Diabetes Association. Diabetes Care. 2016.39(Suppl 1). Performed By: #### C ROSEANNA, BMP ####[facility], [place] [phone] Potassium molar conc 4.0 mmol/L Normal 3.7-5.1 [facility] Comment on above: Performed By: #### C KRISTINAF, BMP ####[facility] [place], [place] [phone] Sodium 142 mmol/L Normal 136-144 [facility] Comment on above: Performed By: #### C BCJUANF, BMP ####[facility] [place], [place] [phone] Urea nitrogen 9 mg/dL Normal 9-24 [facility] Comment on above: Performed By: #### C KRISTINAF, BMP ####[facility] [place], [place] [phone] CASE MGT INIT ASSESon 2017 CASE MGT INIT ASSES HNO ID: [id number]: Brigette Maldonado) EMILIANO Museervice: Care ManagementAuthor Type: Registered NurseType: Care Mgt Initial AssessmentFiled: 10/12/2017 4:00 PMNote Text:CARE MANAGEMENT: ASSESSMENT AND DISCHARGE PLANSERVICE DATE: 10/12/2017SERVICE TIME: 3:57 PMPRIMARY CARE PHYSICIAN:Abigail Sanchez, ROOPAhone: [phone] STATUS: Ambulatory SurgeryPOTENTIAL DISCHARGE PLANSNo Services IndicatedPatient/Financial Planner Stated Goals: return homeNeeds Prior to Discharge: NoneHealth Insurance: Medical [place] ServicesLiving Arrangement: HomeLives With: SpouseFinancial Resources: RetiredPrimary Contact:Extended Emergency Contact InformationPrimary Emergency Contact: AlvinKaebelloAddress: [address] [place], [place] [address] [place] [address] Mwavsy Lizkmpub: SpouseSupportive: YesOther Important Patient Contacts: NoneCAREGIVER ASSESSMENT:Caregiver [...] days? NoHas the Patient Been in a Jail Facility in the Past 30 days? NoFREEDOM OF CHOICE EXPLAINED:N/AHANDOFF COMMUNICATION:n/aAdm post op after pcnl. Spoke w/ pt at bedside. No skilled dc needsidentified, was independent prior to adm. Chief complaint is of his christian.Please contact administrator health care facility if needs arise prior to dc.SIGNATURE: Brigette Muse RN PATIENT NAME: Darrell ElizaldeATE: October 12, 2017 : 3:57 PM PAGER/CONTACT #: [phone] Normal [facility] CBC and Differentialon 10-12 Abs Baso 0.03 k/uL Normal <0.11 [facility] Comment on above: Performed By: #### C BCJUANF BMP ####[facility] [address] AvBethune, [place] [phone] Abs Radford 1.45 k/uL High <0.87 [facility] Comment on above: Performed By: #### C BCJUANF, BMP ####[facility] [address] AvBeth[address], [place] [phone] Abs Neut 9.96 k/uL High 1.45-7.50 [facility] Comment on above: Performed By: #### C BCDIF, BMP ####[facility] [address] AveCHermann, [place] [phone] Basophils/100 WBC Auto (Bld) 0.2 % Normal [facility] Comment on above: Performed By: #### C BCDIF, BMP ####[facility] [address] AveCHermann, [place] [phone] DTYPE Auto Diff Normal [facility] Comment on above: Performed By: #### C BCDIF, BMP ####[facility] AveClevelC[place], [place] [phone] Eosinophils 0.06 10*3/uL Normal <0.46 [facility] Comment on above: Performed By: #### C BCDIF, BMP ####[facility]levelC[address] [place], [place] [phone] Eosinophils/100 leukocytes 0.4 % Normal [facility] Comment on above: Performed By: #### C BCDIF, BMP ####[place] [address] [address] [place] [phone] Erythrocyte distribution width Auto Ratio (RBC) 12.6 % Normal 11.5-15.0 [facility] Comment on above: Performed By: #### C BCDIF, BMP ####[place] [address] [address] [place] [phone] Erythrocytes (RBC) 0.0 /100 WBC Normal 0 [facility] Comment on above: Performed By: #### C BCDIF, BMP ####[place] [address] [address] [place] [phone] Erythrocytes (RBC) 3.97 10*6/uL Low 4.20-6.00 [facility] Comment on above: Performed By: #### C BCDIF, BMP ####[place] [address] [address]ClevelC[address] [place], [place] [phone] Erythrocytes (RBC) 10*6/uL Normal <0.01 [facility] Comment on above: Performed By: #### C BCDIF, BMP ####[place] [address]ClevelC[address] [place], [place] [phone] Hematocrit (HCT) 35.9 % Low 39.0-51.0 [facility] Comment on above: Performed By: #### C BCDIF, BMP ####[place] [address] [address]ClevelC[address] [place], [place] [phone] Hemoglobin mass conc (Bld) 11.9 g/dL Low 13.0-17.0 [facility] Comment on above: Performed By: #### C ROSEANNA BMP ####[place] [address] [address] [place] [phone] Lymphocytes 2.91 10*3/uL Normal 1.00-4.00 [facility] Comment on above: Performed By: #### C ROSEANNA, BMP ####[place] [address] [address] [place] [phone] Lymphocytes/100 leukocytes 20.2 % Normal [facility] Comment on above: Performed By: #### C ROSEANNA, BMP ####[place] [address] [address] [place] [phone] MCH 30.0 pG Normal 26.0-34.0 [facility] Comment on above: Performed By: #### C ROSEANNA, BMP ####[place] [address] [address] [place] [phone] MCHC mass conc (RBC) 33.1 g/dL Normal 30.5-36.0 [facility] Comment on above: Performed By: #### C ROSEANNA, BMP ####[address] AvSheena [place]ille [phone] MCV 90.4 fL Normal 80.0-100.0 [facility] Comment on above: Performed By: #### C BCJUANF, BMP ####[place] [address] [address] [place] [phone] Monocytes/100 leukocytes 10.1 % Normal [facility] Comment on above: Performed By: #### C BCMARIELA, BMP ####[place] [address] [address] [place] [phone] Neutrophils/100 WBC Auto (Bld) 69.1 % Normal [facility] Comment on above: Performed By: #### C BCMARIELA, BMP ####[place] [address] [place], [place] [phone] Platelet mean volume (PMV) 11.2 fL Normal 9.0-12.7 [facility] Comment on above: Performed By: #### C BCDIF, BMP ####[facility] [place], [place] [phone] Platelets 124 10*3/uL Low 150-400 [facility] Comment on above: Result Comment: Resu lt checked and verifiedNo clot detected. Performed By: #### C BCDIF, BMP ####[facility] [place], [place] [phone] WBC (Leukocytes) 14.41 10*3/uL High 3.70-11.00 [facility] Comment on above: Performed By: #### C BCDIF, BMP ####[facility] [place] [address] [phone] Magnesiumon 10-12-2017 Magnesium 1.7 mg/dL Normal 1.7-2.3 [facility] Comment on above: Performed By: #### P T, PTT, MG1 ####[facility] [place], [place] [phone] PROGRESSon 10-12-2017 PROGRESS HNO ID: [id number] thor: Feliciano Santanaervice: (none)Author Type: PhysicianType: Progress NotesFiled: 10/12/2017 1:40 PMNote Text:STAFF UROLOGY NOTE:Patient's Hb dropped nearly 2 grams post-op and his urine was too bloodythis morning for voiding trial or discharge. Will plan to keep in houseanother day.Feliciano Schroeder, MDDirector, Surgical Stone Disease, [facility] InstituteProfessor of Surgery, [facility] of MedicinePager [phone]/12/2017 Normal [facility] PROGRESS HNO ID: [id number] thor: Shelly (Zumba Instructor) O'NeillService: UrologyAuthor Type: Nurse PractitionerType: Progress NotesFiled: 10/12/2017 1:31 PMNote Text:UROLOGY SERVICE PROGRESS NOTEName: Darrell CmdBed: G090 013/U335-87OTL: [id number]: October 12, 2017ASSESSMENT AND PLANMarvin Emmanuelle Nelson is a 67 year old male with history of HTN, nephrolithiasisnow POD#1 s/p PCNL and R JJ stent placement.#Neuro-Pain controlled on Tylenol#CV/Wdpw-IND-Gfa stable#GI-Diet - GI Soft/regular diet; tolerating without N/V+Flatus. 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#FEN-IVF NS @ 125 ml/hr#Activity - OOB to chair and Ambulate with assistance#DVT prophylaxis - SCDs, Pharmacologic DVT prophylaxis contraindicated dueto bleeding risk#Antibiotics - Perioperative antibiotics - Ancef#Secondary Dx and ComplicationsHTN- c/w home medications; losartanHome urocit-K held#Discharge teaching - routine teaching#Disposition - [...] lb 5.9 oz) SpO2 95% BMI 26.05 kg/c3Wmkpu and OutputIntake/Output Summary (Last 24 hours) at 10/12/17 1302Last data filed at 10/12/17 1000 Gross per 24 hourIntake 4023 mlOutput 1975 mlNet 2048 mlDrains:NoneUrine: 1625ccPhysical ExamGeneral: Well appearing male in NADHEENT: Normocephalic, atraumaticCV:: RRR, hemodynamically stable, well-perfusedResp: breathing comfortably on RA.GI: Soft, nontender, nondistended.: Christian catheter draining mortgage funder red urineExtremities: No cyanosis or clubbing, No edemaNeuro: Alert and orientedPsych: Normal affectRecent Labs 229 650WBC 14.41* 16.46*HB 11.9* 13.7HCT 35.9* 39.7PLT 124* 147*NA 142 --K 4.0 --CHLOR 103 --CO2 31* --BUN 9 --CREAT 1.00 --GLUC 100* --Current hospital medications:[NOV Hold due to Transfer] 0.9% NaCl 2-10 mL 2-10 mL INTRAVENOUS q 12 H[NOV Hold due to Transfer] lactated ringers infusion [...] mL ORAL q 6 H PRNphenol 1 [place] (CHLORASEPTIC) 1 [place] MUCOUS MEMBRANE (TOPICAL MOUTH ANDTHROAT) q 2 H PRNsimethicone, chewable 80 mg tab(s) (MYLICON) 80 mg ORAL q 8 H PRNoxybutynin 5 mg tab(s) (DITROPAN) 5 mg ORAL q 8 H PRNoxyCODONE IR 5-10 mg tab(s) (ROXICODONE) 5-10 mg ORAL q 4 H PRNNo past medical history on file.ImagingXR 10/11/17IMPRESSION:NO ACUTE DISEASESIGNATURE: Shelly Cote, ROGER PAGER: [phone]: October 12, 2017TIME: 11:15amPlease page [phone] on weekends and after 4pm on weekdays [facility] PROGRESS HNO ID: [id number] thor: Miguel (Sudeep) Jeremy: UrologyAuthor Type: ResidentType: Progress NotesFiled: 10/12/2017 6:47 AMNote Text:UROLOGY RESIDENT PROGRESS NOTEName: Darrell Handley BoydBed: G090 013/B575-42ZGR: [id number]: October 12, 2017 =====SUBJECTIVE- no acute events overnight-Pain: controlled-N/V : No- Tolerated clears, eager for food =====OBJECTIVEVital SignsPatient Vitals for the past 8 hrs: BP Temp Temp src Pulse Resp SpO2 Height Jziqye39/10/18 1922 148/81 36.7 ?C (98.1 ?F) Oral [...] affectLab CBC, Coags, BMP, Mg, PhosRecent Labs 229 WBC 14.41* 16.46*HB 11.9* 13.7HCT 35.9* 39.7PLT 124* 147*INR 1.0 --APTT 27.4 --NA 142 --K 4.0 --CHLOR 103 --CO2 31* --BUN 9 --CREAT 1.00 --GLUC 100* --CA 8.2* --MG 1.7 --ImagingCXR 10/11- The heart size is normal. ?There is no focal pulmonaryconsolidation. ?Nopleural effusion or pneumothorax. ?Partially seen hardware from lowercervical fusion.Current hospital medications:[NOV Hold due to Transfer] 0.9% NaCl 2-10 [...] mL ORAL q 6 H PRNphenol 1 [place] (CHLORASEPTIC) 1 [place] MUCOUS MEMBRANE (TOPICAL MOUTH ANDTHROAT) q 2 [...] Perioperative antibiotics - ancef#ComplicationsNone#Seconda ry Dx-HTN- [facility]-K held#Discharge teaching - may need home going christian care teaching#Disposition - pending course, anticipate tomorrowThe patient's progress, lab findings, vitals, and clinical decision makingas documented above to be discussed with staff Dr. Schroeder. ========Miguel Zapata M.D.Urology PGY-2Pager: [phone] 2017Overnight and on weekends please page [phone] Normal [facility] Protimeon 10-12-2017 INR Coag RelTime (Bld) 1.0 {INR} Normal 0.9-1.3 [facility] Comment on above: Result Comment: Laisha min K Antagonist (VKA) Therapeutic Range: INR 2 to 3 (Target INR of 2.5)Note: For patients treated with VKA drugs, such as warfarin, the [place] [employer] 2012 Guideline recommends [...] al. Chest 2012, 141:7S-47SNishjohana RA, et al. [facility] 2017, 70: 252-289 Performed By: #### P T, PTT, MG1 ####[facility] [address] [place], [place] [phone] PT Sec 10.8 sec Normal 9.7-13.0 [facility] Comment on above: Performed By: #### P T, PTT, MG1 ####[facility] [address] [place], [place] [phone] ANES Woody 10-11-2017 ANES POST HNO ID: [id number] thor: Teresita Thmoas: AnesthesiologyAuthor Type: PhysicianType: Anesthesia PostOpFiled: 10/11/2017 4:08 PMNote Text:POST ANESTHESIA EVALUATION NOTESERVICE DATE: 10/11/2017SERVICE TIME: 4:07 PMDOB: 1950Vitals: 10/11/1814Temp: 37.1 ?C (98.8 ?F) 36.3 ?C (97.3 ?F) 10/11/1814P: 149/82 188/84 10/11/1814Pulse: 101 92 10/11/1814Resp: 16 [...] Remarks:SIGNATURE: Teresita Rosado MD PATIENT NAME: Darrell ElizaldeATE: October 11, 2017 : 4:07 PM PAGER/CONTACT #: [phone] Normal [facility] BRIEF OP NOTon 10-11-2017 BRIEF OP NOT HNO ID: [id number] thor: Miguel (Sudeep) IkekService: UrologyAuthor Type: ResidentType: Brief Op NoteFiled: 10/11/2017 3:17 PMNote Text:UROLOGY BRIEF OPERATIVE NOTELOG ID: [id number]/Procedure Date: 10/11/2017Incision/Procedure Start Time: 1:38 PMIncision Close/Procedure [...] 30 FrenchTract Dilation Device: BalloonSurgeon(s)/Proceduralist (s) and Water Quality Manager(s):Surgeon(s) and Role: * Feliciano Schroeder - Primary * Miguel (Sudeep) Benny - Resident - Assisting * Damon Cintron) Katerine - FellowNo Additional StaffAnesthesia: GeneralFLUIDSIntake: 1200ccUrine Output: n/a, irrigationEstimated Blood Loss: 50 mlsAccidental punctures or Lacerations: noneComplications: NoneDrains: Christian, 20fr coude tipImplants: [id number] JJ ureteral stentCultures: NoneFindings: Soft stones in R Renal pelvis and R lower pole (>3cm). Lowerpole access. Stone free at end of the case.Specimens:Specimen ID Type Site Comments Sent Toother Stone stones sent to PACU with patient OtherPost-Op Plan of Care:To RNFSIGNATURE: Miguel Zapata MD PATIENT NAME: Darrell ElizaldeATE: October 11, 2017 : 3:11 PM PAGER/CONTACT #: [phone] after hours issues, please call the on-call urology pager [phone] Normal [facility] CBC and Differentialon 10-11 Abs Baso 0.03 k/uL Normal <0.11 [facility] Comment on above: Performed By: #### C BCDIF ####[facility] [place], [place] [phone] Abs Radford 1.18 k/uL High <0.87 [facility] Comment on above: Performed By: #### C BCDIF ####[facility] [address] [place], [place] [phone] Abs Neut 12.38 k/uL High 1.45-7.50 [facility] Comment on above: Performed By: #### C BCDIF ####[place] [address] [address], [place] [phone] Basophils/100 WBC Auto (Bld) 0.2 % Normal [facility] Comment on above: Performed By: #### C BCDIF ####[place] [address] [address] [phone] DTYPE Auto Diff Normal [facility] Comment on above: Performed By: #### C BCDIF ####[place] [address] [address] [phone] Eosinophils 0.06 10*3/uL Normal <0.46 [facility] Comment on above: Performed By: #### C BCDIF ####[place] [address] [address] [place] [phone] Eosinophils/100 leukocytes 0.4 % Normal [facility] Comment on above: Performed By: #### C BCDIF ####[place] [address] [place] [phone] Erythrocyte distribution width Auto Ratio (RBC) 12.4 % Normal 11.5-15.0 [facility] Comment on above: Performed By: #### C BCDIF ####[place] [address] [address], [place] [phone] Erythrocytes (RBC) 0.0 /100 WBC Normal 0 [facility] Comment on above: Performed By: #### C BCDIF ####[place] [address], [place] [phone] Erythrocytes (RBC) 10*6/uL Normal <0.01 [facility] Comment on above: Performed By: #### C BCDIF ####[place] [address] [address] [place] [phone] Erythrocytes (RBC) 4.42 10*6/uL Normal 4.20-6.00 [facility] Comment on above: Performed By: #### C BCDIF ####[address] [phone] Hematocrit (HCT) 39.7 % Normal 39.0-51.0 [facility] Comment on above: Performed By: #### C BCDIF ####[place] [phone] Hemoglobin mass conc (Bld) 13.7 g/dL Normal 13.0-17.0 [facility] Comment on above: Performed By: #### C BCDIF ####[place] [phone] Lymphocytes 2.81 10*3/uL Normal 1.00-4.00 [facility] Comment on above: Performed By: #### C BCDIF ####[place] [phone] Lymphocytes/100 leukocytes 17.1 % Normal [facility] Comment on above: Performed By: #### C BCDIF ####[place] [phone] MCH 31.0 pG Normal 26.0-34.0 [facility] Comment on above: Performed By: #### C BCDIF ####[place] [phone] MCHC mass conc (RBC) 34.5 g/dL Normal 30.5-36.0 [facility] Comment on above: Performed By: #### C BCDIF ####[address] [phone] MCV 89.8 fL Normal 80.0-100.0 [facility] Comment on above: Performed By: #### C BCDIF ####[place] [address] [address], [place] [phone] Monocytes/100 leukocytes 7.2 % Normal [facility] Comment on above: Performed By: #### C BCDIF ####[place] [address] [address], [place] [phone] Neutrophils/100 WBC Auto (Bld) 75.1 % Normal [facility] Comment on above: Performed By: #### C BCDIF ####[address] [place] [phone] Platelet mean volume (PMV) 11.3 fL Normal 9.0-12.7 [facility] Comment on above: Performed By: #### C BCDIF ####[address] [phone] Platelets 147 10*3/uL Low 150-400 [facility] Comment on above: Performed By: #### C BCDIF ####[address] [phone] WBC (Leukocytes) 16.46 10*3/uL High 3.70-11.00 [facility] Comment on above: Performed By: #### C BCDIF ####[address] [place], [place] [phone] Calculi Analysison 8 Calculus Type stone Normal [facility] Comment on above: Performed By: #### I CA, CBCDIF, VITD, PTHI, CMP, URIC ####[address], [place] [phone] Note (NOTE) Normal [facility] Comment on above: Result Comment: Calc ulus Color: OFF WHITECalculus Size & Weight: MULTIPLE PIECES, 0.5788 GRAMSComposition: CALCIUM PHOSPHATE - 60% CALCIUM OXALATE MONOHYDRATE - 30% MINOR COMPONENTS - 10%This test was developed and its performance characteristicsdetermined by the [facility] andLabocean springstory Medicine [place] ([facility]).It has not been cleared or approved by the FDA.-[facility] [facility] is regulated under CLIA as qualified to performhigh-complexity testing.This test is used for clinical purposes. It should not be regarded asinvestigational or for research. Performed By: #### I CA, CBCDIF, VITD, PTHI, CMP, URIC ####[facility] [address] [place], [place] [phone] NURSING PROGon 10-11-2017 NURSING PROG HNO ID: [id number] thor: Melita (Rn) EMILIANO Loyaervice: (none)Author Type: Registered NurseType: Nursing Progress NoteFiled: 10/11/2017 8:01 PMNote Text:Admission/Transfer NotePATIENT NAME: Darrell CmRN: [id number] admitted from PACU via stretcher in stable condition.Actions taken: Patient oriented to room, call light function, prescribedactivities, Patient rights and Quiet at night.This note was completed by: Melita Loya RN [facility] NURSING PROG HNO ID: [id number] thor: May Maldonado) EMILIANO Moffettervice: NursingAuthor Type: Registered NurseType: Nursing Progress NoteFiled: 10/11/2017 10:50 AMNote Text:PRE OP LEARNING ASSESSMENTPROCEDURE/SURGERY: SURGERY: PreopREADINESS TO LEARN: InterestedCOGNITIVE ABILITY: Alert and orientedMOTIVATION TO LEARN: EagerFAMILY SUPPORT: High - Very involved in pt carePATIENT LEARNS BEST BY: Multiple MethodsFACTORS AFFECTING LEARNING: NonePHYSICAL LIMITATIONS AFFECTING LEARNING: NoneElectronically Signed By: May Moffett RN In Department: HOSPMAIN M023 [facility] OPERATIVE NOon 10-11-2017 OPERATIVE NO HNO ID: [id number] thor: Feliciano Santanaervice: UrologyAuthor Type: PhysicianType: Operative ReportFiled: 10/12/2017 9:11 AMNote Text:OPERATIVE/PROCEDURE REPORTLOG ID: [id number]/Procedure Date: 10/11/2017Incision/Procedure Start Time: 1:38 PMIncision Close/Procedure End Time: 3:13 PMSurgeon(s)/Proceduralist(s) and Water Quality Manager(s):Surgeon(s) and Role: * Feliciano Schroeder - Primary * Miguel (Sudeep) Benny - Resident - Assisting * Damon (Toño) Katerine - FellowProcedure(s):1. Cystoscopy2. Removal of R JJ [...] and draped in the standard sterile fashion.First television installer images were obtained noting two opacities in [...] pulled out through theurethral meatus to gain nefbjcs-edq-wneieyh access.A glide catheter was used to exchange the crjtrzp-omw-tufgjgv guidewirefor an Amplatz superstiff wire. The ureteroscope was re-inserted to theaccessed calyx. An 8/10 Fr dilator was then used to gently dilate thetract. The tract was incised at the skin for 10 mm. The [employer] X-Forceballoon was advanced over the wire and noted [...] Garcias and Dr. Zapata.Miguel Zapata M.D.Urology PGY-2Pager: [phone] 20174:59 PMOvernight and on weekends please page [phone] RADHA Schroederirector, Surgical Stone Disease, [facility] HamiltonProfessor of Surgery, [facility] of MedicinePager 45481010/12/2017 [facility] PROGRESSon 10-11-2017 PROGRESS HNO ID: [id number] thor: Tyler (Res) Rick PalaciosService: Pediatric UrologyAuthor Type: ResidentType: Progress NotesFiled: 10/11/2017 8:13 PMNote Text:UROLOGY SERVICE POST-OP CHECK NOTEJanuary 20178:10 PMS: No complaints, pain controlled, no N/V. UOP adequate. No CP or SOB,fever, chills.O:Current hospital medications:[NOV Hold due to Transfer] 0.9% NaCl 2-10 mL 2-10 mL INTRAVENOUS q 12 H[NOV Hold due to Transfer] lactated ringers infusion [...] mL ORAL q 6 H PRNphenol 1 [place] (CHLORASEPTIC) 1 [place] MUCOUS MEMBRANE (TOPICAL MOUTH ANDTHROAT) q 2 [...] lb 5.9 oz) SpO2 99% BMI 26.05 kg/h4YWBSCCTQ EXAM:GENERAL: no distressNEURO: VGHRBd2RKCVH: breathing comfortably on 2LCARDIAC: warm and well perfused throughoutABDOMEN: soft, mild distended, non tender.WOUND: CDIGU: Christian catheter present, red urine no clotsLABSCBC, Coags, BMP, Mg, PhosRecent Labs [id number] 16.46*HB 13.7HCT 39.7PLT 147*A/P:Darrell Nelson is a [...] routine teachingDischarge planning - pendingTyler [place] [phone] Normal [facility] PT EDon 10-11-2017 PT ED HNO ID: [id number] thor: Ccf ProviderService: (none)Author Type: PhysicianType: Patient EducationFiled: 10/11/2017 7:15 PMNote Text:[facility] - AndersonPatient Education Report Name: DARRELL NELSON Date: 10/11/2017 Time: 7:15 PMPatient Ordered Video: Inpatient Fallsfrom [id number] via phone number [phone] at 7:15 PM Normal [facility] XR CHEST 1V FRONTAL PORTon 0 10-11-2017 [...] ORDOÑEZ MD on Oct 11 2017 4:13PM [id number] Normal [facility] CNCOon 10-05-2017 CNCO Letter Text/12/2017M teresa Cmd[address] [id number] Mr. Nelson:Your recent 24 hour urine test [...] for future kidney stones. You may contact [facility] [phone] with any questions or concerns.Sincerely,Feliciano Schroeder M.D.ELECTRONICALLY SIGNED Normal [facility] CBC and Differentialon 09-12 Abs Baso 0.04 k/uL Normal <0.11 [facility] Comment on above: Performed By: #### I CA, CBCDIF, VITD, PTHI, CMP, URIC ####[facility] [address] [place], [place] [phone] Abs Radford 1.26 k/uL High <0.87 [facility] Comment on above: Performed By: #### I CA, CBCDIF, VITD, PTHI, CMP, URIC ####[facility] [address] [place], [place] [phone] Abs Neut 6.39 k/uL Normal 1.45-7.50 [facility] Comment on above: Performed By: #### I CA, CBCDIF, VITD, PTHI, CMP, URIC ####[place] [address] [address]ebecca [place] [phone] Basophils/100 WBC Auto (Bld) 0.3 % Normal [facility] Comment on above: Performed By: #### I CA, CBCDIF, VITD, PTHI, CMP, URIC ####[place] [address] [address] [place] [phone] DTYPE Auto Diff Normal [facility] Comment on above: Performed By: #### I CA, CBCDIF, VITD, PTHI, CMP, URIC ####[place] [address] [address] [place] [phone] Eosinophils 0.10 10*3/uL Normal <0.46 [facility] Comment on above: Performed By: #### I CA, CBCDIF, VITD, PTHI, CMP, URIC ####[place] [address] [address] [place] [phone] Eosinophils/100 leukocytes 0.9 % Normal [facility] Comment on above: Performed By: #### I CA, CBCDIF, VITD, PTHI, CMP, URIC ####[place] [address] [address] [place] [phone] Erythrocyte distribution width Auto Ratio (RBC) 12.9 % Normal 11.5-15.0 [facility] Comment on above: Performed By: #### I CA, CBCDIF, VITD, PTHI, CMP, URIC ####[place] [address] [address] [place] [phone] Erythrocytes (RBC) 0.0 /100 WBC Normal 0 [facility] Comment on above: Performed By: #### I CA, CBCDIF, VITD, PTHI, CMP, URIC ####[place] [address] [address] [place] [phone] Erythrocytes (RBC) 4.74 10*6/uL Normal 4.20-6.00 [facility] Comment on above: Performed By: #### I CA, CBCDIF, VITD, PTHI, CMP, URIC ####[place] [address] [address], [place] [phone] Erythrocytes (RBC) 10*6/uL Normal <0.01 [facility] Comment on above: Performed By: #### I CA, CBCDIF, VITD, PTHI, CMP, URIC ####[place] [address] [address] [place] [phone] Hematocrit (HCT) 43.7 % Normal 39.0-51.0 [facility] Comment on above: Performed By: #### I CA, CBCDIF, VITD, PTHI, CMP, URIC ####[place] [address] [address] [place] [phone] Hemoglobin mass conc (Bld) 14.2 g/dL Normal 13.0-17.0 [facility] Comment on above: Performed By: #### I CA, CBCDIF, VITD, PTHI, CMP, URIC ####[place] [address] [address] [place], [place] [phone] Lymphocytes 3.64 10*3/uL Normal 1.00-4.00 [facility] Comment on above: Performed By: #### I CA, CBCDIF, VITD, PTHI, CMP, URIC ####[place] [address] [address], [place] [phone] Lymphocytes/100 leukocytes 31.8 % Normal [facility] Comment on above: Performed By: #### I CA, CBCDIF, VITD, PTHI, CMP, URIC ####[place] [address] [address], [place] [phone] MCH 30.0 pG Normal 26.0-34.0 [facility] Comment on above: Performed By: #### I CA, CBCDIF, VITD, PTHI, CMP, URIC ####[place] [address] [address] [place] [phone] MCHC mass conc (RBC) 32.5 g/dL Normal 30.5-36.0 [facility] Comment on above: Performed By: #### I CA, CBCDIF, VITD, PTHI, CMP, URIC ####[place] [address] [address] [place] [phone] MCV 92.2 fL Normal 80.0-100.0 [facility] Comment on above: Performed By: #### I CA, CBCDIF, VITD, PTHI, CMP, URIC ####[place] [address] [place] [phone] Monocytes/100 leukocytes 11.0 % Normal [facility] Comment on above: Performed By: #### I CA, CBCDIF, VITD, PTHI, CMP, URIC ####[place] [address] [address] [place] [phone] Neutrophils/100 WBC Auto (Bld) 56.0 % Normal [facility] Comment on above: Performed By: #### I CA, CBCDIF, VITD, PTHI, CMP, URIC ####[place] [address] [address] [place] [phone] Platelet mean volume (PMV) 11.2 fL Normal 9.0-12.7 [facility] Comment on above: Performed By: #### I CA, CBCDIF, VITD, PTHI, CMP, URIC ####[address] [place] [phone] Platelets 206 10*3/uL Normal 150-400 [facility] Comment on above: Performed By: #### I CA, CBCDIF, VITD, PTHI, CMP, URIC ####[place] [address] [place], [place] [phone] WBC (Leukocytes) 11.43 10*3/uL High 3.70-11.00 [facility] Comment on above: Performed By: #### I CA, CBCDIF, VITD, PTHI, CMP, URIC ####[facility] [address] [place], [place] [phone] CNOVon 09-12-2017 CNOV Office Visit (UROLMN) DARRELL NELSON ([id number]) 1950 MDate Time Provider Yxmliwqomy72/12/17 10:30 AM FELICIANO SCHROEDER During your visit today, we recorded the following information about you: Pulse Blood pressure Weight Height 82/minute 169/91 79.4 kg 1.778 Marielena Schroeder MD 09/12/2017 7:38 PM SignedBasic HPI: 67 year old male who comes in for kidney stone management. Patienthas a history of kidney stones for over 20 years. [facility].5 years [facility]. [...] Urine Negative NegativeKetones, Urine Negative 1+ (A)Specific [place], Ur 1.005 - 1.030 1.016Hemoglobin/Blood,Ur Negative 2+ [...] with more than 50% of the total abns-ai-whvb time ofthe visit devoted to patient counseling/coordination of care.Feliciano Schroeder, MDDirector, Surgical Stone Disease, [facility]ic InstituteProfessor of Surgery, [facility] MedicinePager [phone]/12/2017Bonita Ozuna CNP 09/12/2017 7:38 PM SignedUROLOGY SURGICAL HANDamp;PSERVICE DATE: 09/12/2017REFERRING PROVIDER: Cleveland Llanes MD[address] [facility] HospitalRupalHopi Health Care CenterNDATRIUM HEALTH [facility] [address]REU: No PcpGENDER:SUBJECTIVECHIEF COMPLAINT: Pre-op examHISTORY OF PRESENT [...] symtoms or problems.No history of angina, CHF, [place], cardiac surgery of stents.Respiratory: Negative for current cough, dyspnea. No hx of pneumonia in thepast six weeksPositive: PND, sinus drainage from allergiesGastrointestinal: No history of GERD, PUD, abd pain, difficulty swallowing, GIbleed.Renal: +stonesMusculoskeletal: Negative for joint pain or swelling, back pain or muscle pain.Skin: Negative for lesions, rash and itching.Psychological: No history of psychiatric symptoms or problems.Neurologic: No history of TIA's, stroke, COMPANY DOCTOR tumor, impaired sensorium,hemiplegia, paraplegia or quadriplegia. No [...] 10ANDquot;) Wt 79.4 kg (175 lb) BMI25.11 kg/m3Lcefvfuefgn Max: @TMAXREFRESH(24)@ALLERGIES:ISIS Evans Known AllergiesLABS:No results found for: BUNNo results found for: CREATNo results found for: PSAGlucose, Urine (mg/dL)Date Value09/12/2017 Negative Bilirubin, Urine (no units)Date Value09/12/2017 Negative Ketones, Urine (no units)Date Value09/12/2017 1+ (A) Specific [place], Ur (no units)Date Value09/12/2017 1.016 Hemoglobin/Blood ,Ur [...] Calculus, kidney (primary encounter diagnosis)N20.1 Calculus of wlrrpdT02.9 Right flank painI10 Essential ntzrbaeonwrcR57.1 Family history of njabpxhbumucljhJ67.49 Family history of hbkcvuaxyocxntzqkbeN78.9 Low vitamin D vvzzlJ37.90 Abnormal urinalysisGLICKMAN UROLOGICAL AND KIDNEY INSTITUTEPRE-OP NOTEDate [...] 11:45 AM PAGER/CONTACT #:Referring Provider: CLEVELAND LLANES [[id number]]Allergies As of Date: 09/12/2017(No Known Allergies)Date Reviewed: 09/12/2017Reviewed by: Az Ann MA - Fully AssessedPrimary Visit Diagnosis:Calculus, kidney [N20.0] Other Visit Diagnoses:Calculus of ureter [N20.1] Right flank pain [R10.9] Essential hypertension [I10] Family history of nephrolithiasis [Z84.1] Family history of hyperparathyroidism [Z83.49] Low vitamin D level [E55.9] Abnormal urinalysis [R82.90]Order(s):UA CHEMSTRIP ONLY [SQUA] Order #: [id number] FUTURE UA CHEMSTRIP ONLY [SQUA] Order #: [id number]. #:[id number] VITAMIN D 25 HYDROXY [SQVITD] Order #: [id number] FUTURE CBC + DIFF [SQCBCDIF] Order #: [id number] FUTURE COMP METABOLIC PANEL [SQCMP] Order #: [id number] FUTURE PTH INTACT BLD [SQPTHI] Order #: [id number] FUTURE URIC ACID BLOOD [SQURIC] Order #: [id number] FUTURE TYPE + SCREEN,30 DAY [EAHIFN05] Order #: [id number] FUTURE CONFIRM BLOOD TYPE [SQCONABO] Order #: [id number] FUTURE ECG COMPLETE W INTERPRETATION [ECG01] Order #: [id number] FUTURE [facility] [8120743] Order #: [id number] CALCIUM IONIZED B [SQICA] Order #: [id number] FUTURE URINE CULTURE [SQURCUL] Order #: [id number]. #:[id number] iptions as of 09/12/2017 Sig: MULTIVITAMIN TABLET [...] SPASM LOSARTAN 25 MG TABLET >> Az Ann MA 09/12/2017 10:20 AM >> AZ ANN MA Sep 12, 2017 10:20 AM Received from: External Pharmacy Received Sig: take 1 tablet by mouth oncedaily LEVOFLOXACIN 500 MG TABLET >> Az Ann MA 09/12/2017 [...] Disposition History RecordedLetter TextDecember 2016Cleveland Llanes MD[address] [place] [address]BTWX: Katherine Nelson NO: [id number] OF SERVICE: 09/12/2017Dear Dr. Llanes,I recently saw your patient, Mr. Nelson, in the [facility].Enclosed is a copy of my clinic note which should be self-explanatoryregarding findings, recommendations, and treatment plan. Please don'thesitate to contact me if there are questions.Sincerely,Feliciano Schroeder M.D.Staff Urologist, [facility] Medical CenterELECTRONICALLY SIGNEDcc: Abigail Sanchez M.D., [facility] [place] [address]Ftlatykfn Number: [id number] Status:Closed by FELICIANO SCHROEDER MD on 09/12/17 Normal [facility] Calcium, Ionizedon 7 Calcium 1.14 mmol/L Normal 1.08-1.30 [facility] Comment on above: Performed By: #### I CA, CBCDIF, VITD, PTHI, CMP, URIC ####[facility] [address] [phone] Calcium, Ionized 1.20 mmol/L Normal 1.08-1.30 [facility] Comment on above: Performed By: #### I CA, CBCDIF, VITD, PTHI, CMP, URIC ####[facility] [address], [place] [phone] Comp Metabolic Panelon 09-12 Alanine aminotransferase (ALT) 43 U/L Normal 10-54 [facility] Comment on above: Performed By: #### I CA, CBCDIF, VITD, PTHI, CMP, URIC ####[facility] [address]CH[address], [place] [phone] Albumin 3.8 g/dL Low 3.9-4.9 [facility] Comment on above: Performed By: #### I CA, CBCDIF, VITD, PTHI, CMP, URIC ####[facility] [place] AveCRebecca [place] [phone] Alkaline phosphatase (ALP) 98 U/L Normal 36-108 [facility] Comment on above: Performed By: #### I CA, CBCDIF, VITD, PTHI, CMP, URIC ####[place] [address] [address] [place] [phone] Anion gap 15 mmol/L Normal 9-18 [facility] Comment on above: Performed By: #### I CA, CBCDIF, VITD, PTHI, CMP, URIC ####[place] [address] [address] [place] [phone] Aspartate aminotransferase (AST) 40 U/L Normal 14-40 [facility] Comment on above: Performed By: #### I CA, CBCDIF, VITD, PTHI, CMP, URIC ####[place] [address] [address] [place] [phone] Bilirubin (total) 0.5 mg/dL Normal 0.2-1.3 [facility] Comment on above: Performed By: #### I CA, CBCDIF, VITD, PTHI, CMP, URIC ####[place] [address] [address] [place] [phone] Calcium 9.3 mg/dL Normal 8.5-10.2 [facility] Comment on above: Performed By: #### I CA, CBCDIF, VITD, PTHI, CMP, URIC ####[facility]ClevelJennifer [place] [phone] Chloride 100 mmol/L Normal 97-105 [facility] Comment on above: Performed By: #### I CA, CBCDIF, VITD, PTHI, CMP, URIC ####[place] [address] AveClevelSteven [place] [phone] CO2 26 mmol/L Normal 22-30 [facility] Comment on above: Performed By: #### I CA, CBCDIF, VITD, PTHI, CMP, URIC ####[facility] [address] [place], [place] [phone] Creatinine 1.05 mg/dL Normal 0.73-1.22 [facility] Comment on above: Performed By: #### I CA, CBCDIF, VITD, PTHI, CMP, URIC ####[facility] [place], [place] [phone] eGFR (non-black) mL/min/{1.73_m2} Normal [facility] Comment on above: Performed By: #### I CA, CBCDIF, VITD, PTHI, CMP, URIC ####[facility] [place], [place] [phone] Result Comment: eGFR (Estimated GFR) Units of [...] Glucose mass conc 92 mg/dL Normal 74-99 [facility] Comment on above: Result Comment: The [place] Diabetes Association (ADA) provides guidance for cutoff [...] Standards of Medical Care in Diabetes 2016, [place] Diabetes Association. Diabetes Care. 2016.39(Suppl 1). Performed By: #### I CA, CBCDIF, VITD, PTHI, CMP, URIC ####[facility]ena [place] [phone] Potassium molar conc 4.0 mmol/L Normal 3.7-5.1 [facility] Comment on above: Performed By: #### I CA, CBCDIF, VITD, PTHI, CMP, URIC ####[facility] [place] [phone] Protein 7.5 g/dL Normal 6.3-8.0 [facility] Comment on above: Performed By: #### I CA, CBCDIF, VITD, PTHI, CMP, URIC ####[place] [address] [place] [phone] Sodium 141 mmol/L Normal 136-144 [facility] Comment on above: Performed By: #### I CA, CBCDIF, VITD, PTHI, CMP, URIC ####[place] [address] [phone] Urea nitrogen 10 mg/dL Normal 9-24 [facility] Comment on above: Performed By: #### I CA, CBCDIF, VITD, PTHI, CMP, URIC ####[facility] [place] [phone] Confirm Blood Typeon 017 ABO/RH(D) Positive Normal [facility] Comment on above: Performed By: #### C ONABO ####[place] [phone] HISTORY PHYSICALon 7 HISTORY PHYSICAL HNO ID: [id number] thor: Bonita (Zumba Instructor) DigennaroService: (none)Author Type: Nurse PractitionerType: HANDPFiled: 09/12/2017 7:38 PMNote Text:UROLOGY SURGICAL HANDPSERVICE DATE: 09/12/2017REFERRING PROVIDER: Cleveland Llanes MD[address]ostaG[address] [place] [address]HMR: No PcpGENDER:SUBJECTIVECHIEF COMPLAINT: Pre-op examHISTORY OF PRESENT [...] symtoms or problems.No history of angina, CHF, [place], cardiac surgery of stents.Respiratory: Negative for current cough, dyspnea. No hx of pneumonia inthe past six weeksPositive: PND, sinus drainage from allergiesGastrointestinal: No history of GERD, PUD, abd pain, difficultyswallowing, GI bleed.Renal: +stonesMusculoskeletal: Negative for joint pain or swelling, back pain or musclepain.Skin: Negative for lesions, rash and itching.Psychological: No history of psychiatric symptoms or problems.Neurologic: No history of TIA's, stroke, COMPANY DOCTOR tumor, impaired sensorium,hemiplegia, paraplegia or quadriplegia. No [...] ) Wt 79.4 kg (175 lb) BMI25.11 kg/c0Iivgoyilugs Max: @TMAXREFRESH(24)@ALLERGIES:ISIS RGIESNo Known AllergiesLABS:No results found for: BUNNo results found for: CREAshley results found for: PSAGlucose, Urine (mg/dL)Date Value09/12/2017 Negative Bilirubin, Urine (no units)Date Value09/12/2017 Negative Ketones, Urine (no units)Date Value09/12/2017 1+ (A) Specific [place], Ur (no units)Date Value09/12/2017 1.016 Hemoglobin/Blood ,Ur [...] Calculus, kidney (primary encounter diagnosis)N20.1 Calculus of vnvwodW51.9 Right flank painI10 Essential bclvlleuklagT84.1 Family history of pyftvmvtumvmztoX07.49 Family history of ulgjzvdsbmvrpjauzliG42.9 Low vitamin D iawauT30.90 Abnormal urinalysisGLICKMAN UROLOGICAL AND KIDNEY INSTITUTEPRE-OP NOTEDate [...] per IMPACT - NoPACE Clinic: Cleared per ARAMIS Boyd testing on cureform has been scheduled: YesConsent [...] : 11:45 AM PAGER/CONTACT #: Dong [facility] 09-12-2017 HOSP Patient Update ([facility]) NELSONDARRELL Davila ([id number]) 1950 [facility] Piqknodkzc45/12/17 ASHTYN RABAGO (RN) [facility] During your visit today, we recorded the following information about you:Allergies As of Date: 09/12/2017(No Known Allergies)Date Reviewed: 09/12/2017Reviewed by: Az Ann MA - Fully AssessedOrder(s):SURGICAL REQUEST - ELECTIVE [[id number]] Order #: [id number]: 1Prescriptions as of 09/12/2017 Sig: POTASSIUM CITRATE [...] FOR* More...Follow-up and Disposition History RecordedEncounter Number: [id number] Status:Closed by ASHTYN RABAGO on 09/12/17 [facility] Patient:Darrell Nelson LMRN: Height:5' 10 (1.778 m)Weight:175 lb (79.379 kg)Outpatient Medications as of 10/11/17:potassium citrate ER (UROCIT-K) 10 mEq (1,080 mg) TbERtamsulosin ER (FLOMAX) 0.4 mg fm83ptklpfwo (COZAAR) 25 mg tabletmultivitamin tabletAdmission/Clinic Administered Medications [...] Urine Negative NegativeKetones, Urine Negative 1+ (A)Specific [place], Ur 1.005 - 1.030 1.016Hemoglobin/Blood,Ur Negative 2+ [...] edited the historythat was documented by Ms Conner RN and [...] with more than 50% of the total qnvy-pm-wtpo time of thevisit devoted to patient counseling/coordination of care.Feliciano Schroeder, MDDirector, Surgical Stone Disease, [facility] InstituteProfessor of Surgery, [facility] HospitalPager [phone]/12/2017Previous VersionBonita Ozuna CNP 09/12/2017 7:38 PM SignedUROLOGY SURGICAL HANDPSERVICE DATE: 09/12/2017REFERRING PROVIDER: Cleveland Llanes MD[address] [facility] [address]BMK: No PcpGENDER:SUBJECTIVECHIEF COMPLAINT: Pre-op examHISTORY OF PRESENT [...] symtoms or problems.No history of angina, CHF, [place], cardiac surgery of stents.Respiratory: Negative for current cough, dyspnea. No hx of pneumonia in the pastsix weeksPositive: PND, sinus drainage from allergiesGastrointestinal: No history of GERD, PUD, abd pain, difficulty swallowing, GIbleed.Renal: +stonesMusculoskeletal: Negative for joint pain or swelling, back pain or muscle pain.Skin: Negative for lesions, rash and itching.Psychological: No history of psychiatric symptoms or problems.Neurologic: No history of TIA's, stroke, COMPANY DOCTOR tumor, impaired sensorium,hemiplegia, paraplegia or quadriplegia. No [...] ) Wt 79.4 kg (175 lb) BMI 25.11kg/j2Jgpwpbrbbat Max: @TMAXREFRESH(24)@ALLERGIES:ISIS RGCHRISNo Known AllergiesLABS:No results found for: BUNNo results found for: CREATNo results found for: PSAGlucose, Urine (mg/dL)Date Value09/12/2017 Negative Bilirubin, Urine (no units)Date Value09/12/2017 Negative Ketones, Urine (no units)Date Value09/12/2017 1+ (A) Specific [place], Ur (no units)Date Value09/12/2017 1.016 Hemoglobin/Blood ,Ur [...] Calculus, kidney (primary encounter diagnosis)N20.1 Calculus of bimfvwM22.9 Right flank painI10 Essential njfhsmcczwygY08.1 Family history of sehcaxtfehpzuhjA98.49 Family history of hhjyruphitqnkvzamyyR05.9 Low vitamin D gafhaW30.90 Abnormal urinalysisGLICKBEDFORD UROLOGICAL AND KIDNEY INSTITUTEPRE-OP NOTEDate of Procedure: [...] per IMPACT - NoPACE Clinic: Cleared per ARAMIS Boyd testing on cureform has been scheduled: YesConsent [...] 2017 : 11:45 AM PAGER/CONTACT #: Dong [facility] PROGRESSon 09-12-2017 PROGRESS HNO ID: [id number] thor: Feliciano NobleService: (none)Author Type: PhysicianType: Progress NotesFiled: 09/12/2017 7:38 [...] Urine Negative NegativeKetones, Urine Negative 1+ (A)Specific [place], Ur 1.005 - 1.030 1.016Hemoglobin/Blood,Ur Negative 2+ [...] seizures or tremorsOTHER: patient presents for surgical consultALE Last UROLOGY NOTE:I personally interviewed the patient, examined, [...] with more than 50% of the total sybq-ns-iictvjsz of the visit devoted to patient counseling/coordination of care.Feliciano Schroeder, MDDirector, Surgical Stone Disease, [facility]rolog[facility] InstituteProfessor of Surgery, [facility] MedicinePager [phone]/12/2017 Normal [facility] PTH, [place] 09-12-2017 PTH, Intact 26 pg/mL Normal 15-65 [facility] Comment on above: Performed By: #### I CA, CBCDIF, VITD, PTHI, CMP, URIC ####[facility] [address] [place], [place] [phone] Type and SCR (30D)on 017 ABO/RH(D) Positive Normal [facility] Comment on above: Performed By: #### T SCR30 ####[place] [phone] Antibody Screen Negative Normal [facility] Comment on above: Performed By: #### T SCR30 ####[place] [phone] Uric Acidon 09-12-2017 Urate 4.9 mg/dL Normal 4.0-8.1 [facility] Comment on above: Performed By: #### I CA, CBCDIF, VITD, PTHI, CMP, URIC ####[place] [phone] Urinalysison 09-12-2017 Bilirubin, Urine Negative Normal Negative [facility] Comment on above: Performed By: #### U A ####[place] [phone] Comments SEE COMMENT Normal [facility] Comment on above: Result Comment: Micr oscopic Examination Performed Performed By: #### U A ####[place] [phone] Erythrocytes (RBC) 10*6/uL Critically abnormal 0-3 [facility] Comment on above: Performed By: #### U A ####[place] [phone] Hemoglobin mass conc (Bld) 2+ Critically abnormal Negative [facility] Comment on above: Performed By: #### U A ####[place] [phone] Leukest 3+ Critically abnormal Negative [facility] Comment on above: Performed By: #### U A ####[place] [phone] pH of blood 7.0 [pH] Normal 4.5-8.0 [facility] Comment on above: Performed By: #### U A ####[place] [address] [place] [place] [phone] Protein, Urine 30 mg/dL Critically abnormal Negative [facility] Comment on above: Performed By: #### U A ####[phone] Specific [place], Ur 1.016 Normal 1.005-1.03 0 [facility] Comment on above: Performed By: #### U A ####[place] [phone] Urine Kelby Comment SEE COMMENT [facility] Comment on above: Result Comment: N/A Performed By: #### U A ####[place] [address] [place] [phone] Urine, clarity Cloudy Critically abnormal Clear [facility] Comment on above: Performed By: #### U A ####[place] [address] [place] [phone] Urine, color Yellow Normal Yellow [facility] Comment on above: Performed By: #### U A ####[place] [phone] Urine, epithelial cells in sediment SEE COMMENT Normal [facility] Comment on above: Result Comment: FewS quamous Epithelial Cells Performed By: #### U A ####[place] [address] [place] [phone] Urine, glucose presence Negative Normal Negative [facility] Comment on above: Performed By: #### U A ####[place] [address] [place] [phone] Urine, ketones presence 1+ Critically abnormal Negative [facility] Comment on above: Performed By: #### U A ####[address] [phone] Urine, nitrite presence Negative Normal Negative [facility] Comment on above: Performed By: #### U A ####[address] [phone] Urine, urobilinogen Normal Normal Normal [facility] Comment on above: Performed By: #### U A ####[address] [phone] WBC (Leukocytes) 10*3/uL Critically abnormal 0-5 [facility] Comment on above: Performed By: #### U A ####[address] [phone] Urine Cultureon 09-12-2017 Urine culture, bacteria Sp. Request/Comment: - Specimen received in preservative Culture Result - No growth (<1,000 CFU/ml) Normal [facility] Comment on above: Performed By: #### U RCUL ####[place] [phone] Vitamin D 25 Hydroxyon 09-12 Vitamin D 25 Hydroxy 38.6 ng/mL Normal 31.0-80.0 [facility] Comment on above: Result Comment: Clas sification of 25 [place] Vitamin D status:Insufficiency/Moderate Deficiency: < or = 30 ng/mLSufficiency/Optimal Levels: 31 to 80 ng/mLToxicity: > 100 ng/mLTest performed by chemiluminescent immunoassay. Performed By: #### I CA, CBCDIF, VITD, PTHI, CMP, URIC ####[address] [phone] SR-CT Abdomen/Pelvis w/o Con trast IMPORTon 09-07-2017 SR-CT Abdomen/Pelvis w/o Contrast IMPORT Images were obtained outside of [facility] [id number] Normal [facility] Vital Signs Date Time Vital Sign Value Performing Clinician Facility 03-20-2024 08:14-0400 Diastolic blood pressure 85 mm[Hg] Rock LUJAN [facility] 03-20-2024 08:14-0400 Heart rate 66 /min Rock LUJAN [facility] 03-20-2024 08:14-0400 Systolic blood pressure 146 mm[Hg] Rock LUJAN [facility] 08-23-2023 08:30-0500 Blood Pressure Location Laura Orzech [facility] 08-23-2023 08:30-0500 Diastolic blood pressure 91 mm[Hg] Laura Orzech [facility] 08-23-2023 08:30-0500 Heart rate 88 /min Laura Orzech [facility] 08-23-2023 08:30-0500 Respiratory rate 16 /min Laura Orzech [facility] 08-23-2023 08:30-0500 Systolic blood pressure 151 mm[Hg] Laura Orzech [facility] 08-07-2023 08:45-0500 Body height 172.72 cm Abigail Sanchez [facility] [employer] Other 08-07-2023 08:45-0500 Body mass index (BMI) [Ratio] 25.18 kg/m2 Abigail Sanchez [facility] [employer] Other 08-07-2023 08:45-0500 Body weight 75.12 kg Abigail Sanchez [facility] [employer] Other 08-07-2023 08:45-0500 Diastolic blood pressure 73 mm[Hg] Abigail Sanchez [facility] [employer] [facility] [employer] Other 08-07-2023 08:45-0500 SaO2% (BldA) [Mass fraction] 99 % Abigail Sanchez [facility] [employer] Other 08-07-2023 08:45-0500 Systolic blood pressure 165 mm[Hg] Abigail Sanchez [facility] [employer] Other 11-17-2022 09:30-0500 Body height 172.72 cm Abigail Sanchez [facility] [employer] Other 11-17-2022 09:30-0500 Body mass index (BMI) [Ratio] 27.82 kg/m2 Abigail Sanchez [facility] [employer] Other 11-17-2022 09:30-0500 Body weight 83.01 kg Abigail Sanchez [facility] [employer] Other 11-17-2022 09:30-0500 Diastolic blood pressure 82 mm[Hg] Abigail Sanchez [facility] [employer] Other 11-17-2022 09:30-0500 SaO2% (BldA) [Mass fraction] 97 % Abigail Sanchez [facility] [employer] Other 11-17-2022 09:30-0500 Systolic blood pressure 140 mm[Hg] Abigail Sanchez [facility] [employer] Other 07-26-2022 13:18-0400 Blood Pressure Location Dharmesh WALTERS [facility] 07-26-2022 13:18-0400 Diastolic blood pressure 98 mm[Hg] Dharmesh WALTERS [facility] 07-26-2022 13:18-0400 Heart rate 72 /min Dharmesh WALTERS [facility] 07-26-2022 13:18-0400 Respiratory rate 16 /min Dharmesh WALTERS [facility] 07-26-2022 13:18-0400 Systolic blood pressure 138 mm[Hg] Dharmesh PETERSL [facility] Encounters Encounter Date Encounter Type Care Provider Facility Start: 10-16-2024 ambulatory Rock LUJAN Facility :[facility] Start: 03-20-2024 End: 03-20-2024 ambulatory Rock LUJAN Facility:[facility] Start: 03-20-2024 End: 03-20-2024 Patient encounter procedure Rock LUJAN [facility] Start: 08-23-2023 End: 08-23-2023 ambulatory [facility] Start: 08-23-2023 End: 08-23-2023 Patient encounter procedure Laura X Orzech [facility] [employer] Start: 08-11-2023 End: 08-11-2023 ambulatory Abigail Sanchez [facility] [employer] Other Start: 08-11-2023 Telephone encounter Abigail Sanchez [facility] Start: 08-07-2023 End: 08-07-2023 ambulatory Abigail Sanchez [facility] [employer] Other Start: 08-07-2023 Office outpatient vi sit 15 minutes Abigail Sanchez [facility] Start: 02-08-2023 End: 02-09-[address] ROCK LUJAN Facility: Start: 11-17-2022 End: 11-17-2022 ambulatory Abigail Sacnhez [facility] [employer] Other Start: 11-17-2022 Encounter for other preprocedural examination Abigail Sanchez [facility] Start: 11-17-2022 Office outpatient vi sit 15 minutes Abigail Sanchez [facility] Start: 11-03-2022 End: 11-04-[address] DENISHA GARCIA Facility:[facility] Start: 10-18-2022 End: 10-19-2022 ambulatory DENISHA GARCIA [facility] Start: 10-18-2022 End: 10-18-2022 ambulatory DENISHA GARCIA [facility] Start: 08-31-2022 Encounter for preprocedural laboratory examination DR DHARMESH WALTERS . [facility] Start: 08-31-2022 End: 08-31-[address] DHARMESH WALTERS . Facility:[facility] Start: 08-26-2022 End: 08-27-[address] DHARMESH WALTERS . Facility:[facility] Start: 08-26-2022 End: 08-27-2022 Encounter for preprocedural laboratory examination DR DHARMESH WALTERS . Facility:[facility] Start: 07-26-2022 End: 07-26-2022 Patient encounter procedure [facility]esh [facility] Start: 06-30-2022 Adult health examination Gricelda Sanchez Other [employer] Other Start: 06-28-2022 End: 06-29-[address] ABIGAIL SANCHEZ Facility:[facility] Start: 04-27-2022 End: 04-27-2022 Patient encounter procedure Rock LUJAN [facility] Start: 04-20-2022 End: 04-21-[address] ROCK LUJAN Facility:[facility] Start: 10-21-2017 End: 10-22-2017 Ambulatory ALEXA GARCIA [facility] Start: 10-13-2017 End: 10-13-2017 Ambulatory FELICIANO SCHROEDER [facility] Start: 10-11-2017 End: 10-13-2017 Ambulatory FELICIANO SCHROEDER [facility] Start: 09-12-2017 End: 09-12-2017 Ambulatory FELICIANO SCHROEDER [facility] Start: 09-12-2017 End: 09-18-2017 Ambulatory FELICIANO SCHROEDER [facility] Procedures Date Procedure Procedure Detail Performing Clinician Start: 08-31-2022 Colonoscopy Laura Orjd Start: 08-31-2022 Esophagogastroduodenoscopy Laura Orzebisi Start: 04-12-2019 Screening for malignant neoplasm of prostate Abigail Sanchez Other Start: 10-11-2017 Removal of calculus of renal pelvis through percutaneous nephrostomy [facility] [employer] [facility] Start: 10-02-2017 Cystoscopic removal of ureteric stent [facility] [employer] [facility] Start: 01-13-2016 Cysto, right RGP, right JJ stent [facility] [employer] [facility] Start: 09-16-2015 Neck Surgery Rock COOK Bilateral hernia repair Martin ory COOK Bilateral inguinal hernia repair Dharmesh NILL Cholecystectomy [facility] Colonoscopy Dharmesh NILL History of surgical procedure on cervical spine Dharmesh NILL History of surgical procedure on cervical spine Dharmesh NILL Sinus Surgery Rock COOK Immunizations Immunization Date Immunization Notes Care Provider Fabiola velazquez 08-16-2021 COVID-19 Vaccine Pfizer - Documentation Purposes Only Abigail Sanchez Other [facility] 01-07-2021 COVID-19 Vaccine Pfizer - Documentation Purposes Only Abigail Sanchez Other [facility] 12-17-2020 SARS-CoV-2 (COVID-19 ) mRNA BNT-162b2 vax [facility] NEGATED: Highlighted row has not occurred!08-23-2023 influenza virus vaccine, unspecified formulation [employer] Payers Date Payer Category Payer Medicare [id number] 1950 Unknown [id number] 2.16.84 [id number] 1950 Unknown [id number] 2.16.84 [id number] 1950 Unknown [id number] 2.16.84 [id number] 1950 Unknown [id number] 2.16.84 [id number] 1950 Unknown [id number] 2.16.84 [id number] 1950 Unknown [id number] 2.16.84 [id number] 1950 Unknown [id number] 2.16.8 [id number] 1950 Unknown [id number] 2.16.8 [id number] 1950 Unknown [id number] 2.16.8 [id number] Social History Date Type Detail Facility Start: 04-27-2022 End: 03-20-2024 Tobacco smoking status Never smoked tobacco (finding) [facility] Tobacco smoking status Never [facility] Sex Assigned At Male [facility] Functional Status Date Assessment Result Facility 03-20-2024 Functional Status N/A [facility] 08-23-2023 Functional Status N/A [facility] 07-26-2022 Functional Status N/A [facility]eshawn Levy 04-27-2022 Functional Status N/A [facility] Clinical Notes 04-27-2022 to 03-20-2024 Note Date & Type Note Facility 03-20-2024 Hospital Discharge instructions Patient Education 03/20/2024 08:58:01 Benign Prostatic Hyperplasia Benign Prostatic Hyperplasia Benign [...] urethra. Follow these instructions at home: Take tiuc-afo-esnwdxu and prescription medicines only as told by [...] provider. Document Revised: 04/06/2022 Document Reviewed: 04/06/2022 [employer] Patient Education 2022 [employer]. Follow Up Care 08/23/2023 09:06:17 With:KARLEE GA, Rock Pollock, URL Address: [address] [place] [address]- When: Unknown [facility] 08-23-2023 Hospital Discharge instructions Patient Education 08/23/2023 [...] urethra. Follow these instructions at home: Take khct-hia-ohizkew and prescription medicines only as told by [...] provider. Document Revised: 04/06/2022 Document Reviewed: 04/06/2022 [employer] Patient Education 2022 [employer]. 08/23/2023 11:10:20 Prostate Cancer Screening Prostate Cancer [...] treatment? Where to find more information [employer]: www.cancer.org [employer]: www.auanet.org Contact a health care [...] provider. Document Revised: 03/14/2022 Document Reviewed: 03/14/2022 [employer] Patient Education 2022 [employer]. Follow Up Care 02/15/2023 12:04:24 With:KARLEE GA, Rock Pollock, URL Address: [address] [place], [place] [id number]- When: Unknown [facility] 08-07-2023 Evaluation note Encounter Date [...] Has passed the quarantine dates. Rest, hydrate. [employer] Other 02-16-2023 Evaluation note* Encounter Date Diagnosis [...] juncture. Nov, Essential hypertension (ICD-10 - I10) [employer] Other 01-17-2023 NoteSubjective HPI 72 years old [...] the past 36 hour(s)). No follow-ups on file.[facility]11-30-2022 NoteOP Note OPERATION DATE: 08/31/2022 PREOPERATIVE DIAGNOSIS: [...] year after that. CC: Abigail Sanchez M.D.[facility] [id number] NoteOPERATIVE NOTE OPERATION DATE: 08/26/2022 PREOPERATIVE DIAGNOSIS: [...] of fibroglandular colon polyp removed by Dr. Chaudhry from the sigmoid colon in 2010. Indications, [...] in good condition. CC: Abigail Sanchez M.D.[facility] [id number] NoteOPERATIVE NOTE OPERATION DATE: 08/26/2022 PREOPERATIVE DIAGNOSIS: [...] one year after that. CC: Abigail Sanchez M.D.[facility]07-27-2022 Hospital Discharge instructions Patient Education 04/27/2022 08:25:39 [...] urethra. Follow these instructions at home: Take pfwq-arn-yzmzypg and prescription medicines only as told by [...] 09/18/2006 Document Revised: 08/13/2019 Document Reviewed: 10/23/2017 [employer] Patient Education 2020 [employer] Follow Up Care 10/25/2021 11:53:28 With:KARLEE GA, Rock Pollock, URL Address: [address] [place] [address]- When:Within 6 Month(s) [facility] evaluation + Plan note Future Appointments Appointment Date:10/17/2022 08:00:00 AM Scheduled Provider:Rock LUJAN MD Location:[facility] Appointment Type:URO Office Visit Diagnostic Tests Pending * PSA Free & Total 09/01/22 [facility] Evaluation + Plan note Future Appointments Appointment Date:10/17/2022 08:00:00 AM Scheduled Provider:Rock LUJAN MD Location:[facility] Appointment Type:URO Office Visit [facility] Evaluation + Plan note Future Appointments Appointment Date:03/20/2024 08:00:00 AM Scheduled Provider:Rock LUJAN MD Location:[facility] Appointment Type:URO Office Visit Diagnostic Tests Pending * PSA Free & Total 08/23/23 [facility] Evaluation + Plan note Future Appointments Appointment Date:10/16/2024 08:00:00 AM Scheduled Provider:Rock LUJAN MD Location:[facility] Appointment Type:URO Office Visit Diagnostic Tests Pending * PSA Free & Total 07/02/24 [facility] evaluation [facility]No [facility]No[facility] Other [facility] Narrative - Reported* Type Description Date Medical History Iron deficiency anemia Medical History Fatigue Medical History Dyspnea on exertion Medical History Essential hypertension Surgical History CHOLECYSTECTOMY Surgical History CERVICAL DISC SURGERY Surgical History 2 INGUINAL HERNIA SURGERY Hospitalization History SEE SURGICAL [employer] [facility] [employer] Other history general Narrative - Reported* Type Description Date Medical History Iron deficiency anemia Medical History Fatigue Medical History Dyspnea on exertion Medical History Essential hypertension Surgical History CHOLECYSTECTOMY Surgical History CERVICAL DISC SURGERY Surgical History 2 INGUINAL HERNIA SURGERY Surgical History Colonoscopy 2022 Surgical History Bowel resection 11/2022 Hospitalization History SEE SURGICAL [employer] Other Hospital course Narrative No data available for this section [facility] Hospital Discharge instructions No data available for this section [facility] [place] Progress note No data available for this section [facility] Summary Purpose Family History No Family History Records FoundNo Family History Records FoundNo Family History Records FoundNo Family History Records Found No data available for this section No data available for this section No [...] section and content) DATE CREATED AUTHOR 03/26/2018 [facility] DATE CREATED AUTHOR AUTHOR'S ORGANIZ ATION 03/31/2022 [facility] DATE CREATED AUTHOR AUTHOR'S ORGANIZ ATION 10/19/2022 [facility] DATE CREATED AUTHOR AUTHOR'S ORGANIZ ATION 02/12/2023 [facility] DATE CREATED AUTHOR AUTHOR'S ORGANIZ ATION 03/21/2024 [facility] Care Team (unrecognized sect ion and content) Personnel Name: ABIGAIL SANCHEZ MD Address: [address] [place] [address] Personnel Name: AIBGAIL SANCHEZ MD Address: Address: [address] [place] [address] Personnel Name: ABIGAIL SANCHEZ MD Address: Address: [address] [place] [address] Personnel Name: ABIGAIL SANCHEZ MD Address: Address: [address] [place] [address] REASON FOR VISIT (unrecogniz ed section and [...] BE BASED ON THE PRIMARY CLINICAL RECORDS. [employer] [facility]. provides no warranty or guarantee of the accuracy or completeness of information in this document.
--- NOTE | 2024-07-11 11:38 | CT_ITS ---
[address] [address] Patient Name: SOFI NELSON MRN: [id number] date: 1950 Sex: M Assigned Patient Location: ER Current Patient Location: ER Accession/Order Number: [id number] Exam Date: 07/11/2024 11:51 Report Date: 07/11/2024 12:58 At the request of: LYNNE GONSALEZ Procedure: CT abdomen pelvis wo con EXAMINATION: CT abdomen pelvis wo con HISTORY: left flank pain hx of kidney stone COMPARISON: CT abdomen pelvis 11/03/2022 TECHNIQUE: Axial, Coronal, and Sagittal images were obtained without and/or with IV contrast as indicated by examination type. Dose reduction techniques were achieved by using automated exposure control and/or adjustment of mA and/or kV according to patient size and/or use of iterative reconstruction technique. FINDINGS: LUNG BASES: No visible pulmonary or pleural disease. LIVER: Stable cyst within inferior lateral right hepatic lobe and nearby small hemangioma. No enlargement, atrophy, suspicious density, or new lesion. BILIARY: Cholecystectomy. PANCREAS: No lesion, fluid collection, or abnormal duct dilatation. SPLEEN: No enlargement or focal lesion. ADRENALS: No mass or enlargement. KIDNEYS: Right renal cortical atrophy versus prior wedge resection. Stable benign-appearing cyst. Moderate left hydronephrosis along with a nonobstructing 5 mm stone within the kidney and an obstructing 5 x 4 x 4 mm stone within the distal ureter at the ureterovesical junction. BOWEL/MESENTERY: Prior sigmoid resection and anastomosis. No visible mass, obstruction, or bowel wall thickening. AORTA/VASCULAR: No aneurysm or dissection. RETROPERITONEUM: No mass or adenopathy. LYMPH NODES: No adenopathy. URINARY BLADDER: Small stone within an anterior wall diverticulum. Stable surgical clip along margin of bladder. PELVIC ORGANS: Site prominent prostate protruding into base of bladder. ABDOMINAL WALL: Moderate size inguinal hernias bilaterally containing fat. Small moderate fluid within left hernia which may be due to its dependent location. BONES: No bony lesion or fracture. OTHER: Negative. CT/CT abdomen pelvis wo con IMPRESSION: 1. Moderate left hydronephrosis secondary to an obstructing 5 mm stone within the distal ureter at the ureterovesical junction. 2. Small nonobstructing stone within the bladder which is within a small anterior wall diverticulum (new since prior study) series. 3. Additional chronic changes detailed above. Electronically authenticated by: DESI CEJA Date: 07/11/2024 12:58
[2024-07-11 11:48] LABS: Basophils Percent Auto 0.3 % (0.2-2.0); Eosinophils Absolute Auto 0.1 10^3/uL (0.0-0.7); Eosinophils Percent Auto 0.7 % (0.9-7.0); Hematocrit 39.9 % (42.0-54.0); Hemoglobin 12.9 g/dL (14.0-18.0); Immature Granulocytes Abs Auto 0.03 10^3/uL (0.00-0.03); Immature Granulocytes Pct Auto 0.2 % (0.0-0.5); Lymphocytes Absolute Auto 3.1 10^3/uL (1.2-3.8); Mean Corpuscular HGB Conc 32.3 g/dL (29.9-35.2); Mean Corpuscular Volume 83.5 fL (80.0-94.0); Mean Platelet Volume 11.3 fL (9.5-13.5); Monocytes Percent Auto 7.8 % (1.7-12.0); Neutrophils Absolute Auto 8.2 10^3/uL (1.4-6.5); Platelet Count 164 10^3/uL (150-450); Red Blood Count 4.78 10^6/uL (4.70-6.10); Red Cell Distribution Width 16.3 % (11.0-15.0); White Blood Count 12.4 10^3/uL (4.0-11.0)
[2024-07-11 12:00] LABS: Alanine Aminotransferase 21 U/L (16-63); Albumin Globulin Ratio 1.1; Albumin Level 3.6 g/dL (3.4-5.0); Alkaline Phosphatase 58 U/L (46-116); Anion Gap 17.6; Aspartate Amino Transferase 23 U/L (15-37); BUN Creatinine Ratio 10.5; Bilirubin Total 0.4 mg/dL (0.2-1.0); Carbon Dioxide 22.1 mmol/L (21.0-32.0); Chloride 101 mmol/L (98-107); Estimated GFR (African America >60 (>=60 mL/min/1.73m^2); Estimated GFR (Non-African Ame 57 (>=60 mL/min/1.73m^2); Globulin 3.4 g/dL; Glucose 155 mg/dL (74-106); Potassium 3.7 mmol/L (3.5-5.1); Sodium 137 mmol/L (136-145)
[2024-07-11] MEDS: ONDANSETRON PF 4 MG/2 ML VIAL IV (12:04)
[2024-07-11] MEDS: MORPHINE SULFATE 2 MG/ML SYRINGE 1 MG IV (12:04)
[2024-07-11] MEDS: KETOROLAC TROMETHAMINE 30 MG/ML VIAL 15 MG IVP (12:04)
[2024-07-11 13:21] LABS: Bilirubin Urine NEGATIVE (NEGATIVE); Blood Urine LARGE (NEGATIVE); Clarity Urine CLEAR (CLEAR); Color Urine YELLOW (YELLOW); Glucose Urine UA NEGATIVE (NEGATIVE); Ketones Urine TRACE mg/dL (NEGATIVE); Leukocyte Esterase Urine NEGATIVE (NEGATIVE); Nitrite Urine NEGATIVE (NEGATIVE); Protein Urine NEGATIVE (NEG/TRACE); Specific Gravity Urine 1.025 (1.005-1.025); Urobilinogen Urine 0.2 EU/dL (0.2-1.0)
[2024-07-11] MEDS: 0.9 % SODIUM CHLORIDE 1,000 ML 1000 ML IV (13:24)
[2024-07-11 13:26] LABS: Urine Microscopic Indicated YES
[2024-07-11 13:35] LABS: Bacteria Urine SMALL #/HPF (NONE SEEN); Cast Seen? NONE SEEN #/LPF (NONE SEEN); Crystals Seen? None Seen #/HPF (None Seen); Mucus Urine SMALL (NONE SEEN); RBC Urine 20-50 #/HPF (0-2); Squamous Epithelial Cell Urine RARE #/LPF (NONE/RARE); Urine Culture Indicated YES; WBC Urine 0-2 #/HPF (NONE SEEN)
[2024-07-11 14:30] VITALS: BP 155/73; O2SAT 95
--- NOTE | 2024-07-11 16:50 | ED_ITS ---
HPI - Abdominal Pain General Chief Complaint: Abdominal Pain Stated Complaint: URINARY PAIN Time Seen by Provider: 07/11/24 11:25 Source: patient Mode of arrival: Wheelchair Limitations: no limitations History of Present Illness HPI narrative: The patient complaining of few hours history of left flank pain that started this morning the patient mentioned that he had no complaint yesterday he woke up this morning with a left flank pain, crampy-like associated with nausea and vomiting he mentioned that he have a history of kidney stone and this feels like he is having kidney stone He denies any fever chills or any other complaints Related Data Home Medications ?Medication ?Instructions ?Recorded ?Confirmed losartan 25 mg tablet mg 07/26/23 tamsulosin 0.4 mg capsule mg PO 07/26/23 Previous Rx's ?Medication ?Instructions ?Recorded wypqspnvfqgeeib-ssfxuqxzplnlwtc-LP 5 ml PO Q6H PRN cough #118 mL 07/26/23 2 mg-30 mg-10 mg/5 mL oral syrup (Bromfed DM) cephalexin 500 mg capsule 500 mg PO Q8H 7 days #21 caps 07/11/24 oxycodone-acetaminophen 5 mg-325 1 tab PO Q8H PRN pain 3 days #9 07/11/24 mg tablet (Percocet) tabs Allergies Allergy/AdvReac Type Severity Reaction Status Date / Time No Known Drug Allergies Allergy Verified 07/11/24 11:25 Review of Systems ROS Status of ROS 10 or more systems reviewed and unremark able except as noted in history and below PFSH PFSH Social History Smoking status: Never smoker Little interest or pleasure in doing things: not at all Feeling down, depressed, or hopeless: not at all Exam Narrative Exam Narrative: Nurses notes and vital signs reviewed and patient is not hypoxic. General: Well-appearing and in no apparent distress. Skin: Warm, dry, no pallor noted. No rash. Head: Normocephalic, atraumatic. Neck: Supple, non-tender. Eye: Pupils are equal, round and EOMI. No scleral icterus. Ears, Nose, Mouth, and Throat: TM are clear, no nasal mucosal hypertrophy. Oral mucosa is moist, no posterior oropharynx erythema, uvula is mid-line Cardiovascular: Regular Rate and Rhythm without murmur, gallop or rub. Respiratory: No accessory muscle use or respiratory distress. Lungs are clear to auscultation, no wheezing, rales or rhonchi Chest Wall: no tenderness Back: No midline thoracic or lumbar vertebral tenderness. Left CVA tenderness Musculoskeletal: normal ROM, no calf or popliteal tenderness, no lower extremity edema/swelling GI: Abdomen is soft, non-distended. Normal bowel sounds. No masses appreciated. No tenderness to palpation. No rebound, guarding, or rigidity noted. Neurological: A&O x4. No cranial nerve dysfunction observed. No truncal ataxia. Moves all extremities. Sensation intact. Psychiatric: Cooperative and interactive. Normal mood and affect. Constitutional Vital Signs, click to edit/add: Last Vital Signs Temp 98.3 F 07/11/24 11:25 Pulse 64 07/11/24 11:25 Resp 90 H 07/11/24 14:30 BP 155/73 H 07/11/24 14:30 Pulse Ox 95 07/11/24 14:30 O2 Del Method Room Air 07/11/24 11:25 Course Vital Signs Vital signs: Vital Signs Temperature 98.3 F 07/11/24 11:25 Pulse Rate 64 07/11/24 11:25 Respiratory Rate 22 H 07/11/24 11:25 Blood Pressure 163/72 H 07/11/24 11:25 Pulse Oximetry 99 07/11/24 11:25 Oxygen Delivery Method Room Air 07/11/24 11:25 Temperature 98.3 F 07/11/24 11:25 Pulse Rate 64 07/11/24 11:25 Respiratory Rate 90 H 07/11/24 14:30 Blood Pressure 155/73 H 07/11/24 14:30 Pulse Oximetry 95 07/11/24 14:30 Oxygen Delivery Method Room Air 07/11/24 11:25 MDM - Abdominal Pain MDM Narrative Medical decision making narrative: The patient CBC shows mild leukocytosis of 12 Chemistry was within normal and the urine shows no urine infection but the patient have some bacteria and he will be covered with antibiotic CAT scan of the patient shows a left-sided moderate hydronephrosis with a kidney stone 5 mm almost at the distal ureter The patient case was discussed with Dr. Lujan and right now the patient after discussing his options with him he can continue just controlling the pain and hydrating well there is a big chance that he will pass the stone with no need for further instrumentation The patient though instructed to come back in case of any worsening of his symptoms or fever or chills Patient discharged with Keflex as well as Percocet for pain and Flomax to be continued Patient was instructed to come back in case of any concern and to follow-up with Dr. Lujan within few days for further evaluation Lab Data Labs: Lab Results 07/11/24 07/11/24 Range/Units 11:37 13:04 WBC 12.4 H (4.0-11.0) 10^3/uL RBC 4.78 (4.70-6.10) 10^6/uL Hgb 12.9 L (14.0-18.0) g/dL Hct 39.9 L (42.0-54.0) % MCV 83.5 (80.0-94.0) fL MCH 27.0 (25.9-34.0) pg MCHC 32.3 (29.9-35.2) g/dL RDW 16.3 H (11.0-15.0) % Plt Count 164 (150-450) 10^3/uL MPV 11.3 (9.5-13.5) fL Neut % (Auto) 66.0 (43.0-75.0) % Lymph % (Auto) 25.0 (20.5-60.0) % Cannon % (Auto) 7.8 (1.7-12.0) % Eos % (Auto) 0.7 L (0.9-7.0) % Baso % (Auto) 0.3 (0.2-2.0) % Neut # (Auto) 8.2 H (1.4-6.5) 10^3/uL Lymph # (Auto) 3.1 (1.2-3.8) 10^3/uL Cannon # (Auto) 1.0 H (0.3-0.8) 10^3/uL Eos # (Auto) 0.1 (0.0-0.7) 10^3/uL Baso # (Auto) 0.0 (0.0-0.1) 10^3/uL Abs Immat Gran (auto) 0.03 (0.00-0.03) 10^3/uL Imm/Tot Granulo (auto) 0.2 (0.0-0.5) % Sodium 137 (136-145) mmol/L Potassium 3.7 (3.5-5.1) mmol/L Chloride 101 (98-107) mmol/L Carbon Dioxide 22.1 (21.0-32.0) mmol/L Anion Gap 17.6 BUN 13.0 (7.0-18.0) mg/dL Creatinine 1.24 (0.70-1.30) mg/dL Est GFR ( Amer) >60 (>=60 mL/min/1.73m^2) Est GFR (Non-Af Amer) 57 L (>=60 mL/min/1.73m^2) BUN/Creatinine Ratio 10.5 Glucose 155 H (74-106) mg/dL Calcium 9.0 (8.5-10.1) mg/dL Total Bilirubin 0.4 (0.2-1.0) mg/dL AST 23 (15-37) U/L ALT 21 (16-63) U/L Alkaline Phosphatase 58 (46-116) U/L Total Protein 7.0 (6.4-8.2) g/dL Albumin 3.6 (3.4-5.0) g/dL Globulin 3.4 g/dL Albumin/Globulin Ratio 1.1 Urine Color Yellow (YELLOW) Urine Clarity Clear (CLEAR) Urine pH 6.0 (5.0-9.0) Ur Specific Mize 1.025 (1.005-1.025) Urine Protein Negative (NEG/TRACE) mg/dL Urine Glucose (UA) Negative (NEGATIVE) mg/dL Urine Ketones Trace A (NEGATIVE) mg/dL Urine Occult Blood Large A (NEGATIVE) Urine Nitrite Negative (NEGATIVE) Urine Bilirubin Negative (NEGATIVE) Urine Urobilinogen 0.2 (0.2-1.0) EU/dL Ur Leukocyte Esterase Negative (NEGATIVE) Urine RBC 20-50 A (0-2) #/HPF Urine WBC 0-2 A (NONE SEEN) #/HPF Ur Squamous Epith Cells Rare (NONE/RARE) #/LPF Urine Crystals None seen (None Seen) #/HPF Urine Bacteria Small A (NONE SEEN) #/HPF Urine Casts None seen (NONE SEEN) #/LPF Urine Mucus Small A (NONE SEEN) Ur Culture Indicated? Yes Discharge Plan Discharge Chief Complaint: Abdominal Pain Clinical Impression: Kidney stone, Hydronephrosis Patient Disposition: Home, Self-Care Time of Disposition Decision: 14:09 Condition: Good Prescriptions / Home Meds: New cephalexin 500 mg capsule 500 mg PO Q8H 7 Days Qty: 21 0RF oxycodone-acetaminophen [Percocet] 5-325 mg tablet 1 tab PO Q8H PRN (Reason: pain) 3 Days Qty: 9 0RF No Action tamsulosin 0.4 mg capsule PO losartan 25 mg tablet asjkalugfaanqqd-orqbyddnb-FO [Bromfed DM] 2-30-10 mg/5 mL syrup 5 ml PO Q6H PRN (Reason: cough) Qty: 118 0RF Print Language: [place] Instructions: Kidney Stones (ED), Hydronephrosis (ED) Referrals: Raffi lujan [Other] - As soon as possible (please call for appointment ) Patricia Fontanez MD [Primary Care Provider] - 1 week Discharge Date/Time: 07/11/24 15:17
== END 2024-07-11 15:17 | disposition home or self-care (01) ==
PROVIDERS: Emergency Provider Emergency Medicine; PCP Family Medicine
DX: N13.2 Hydronephrosis with renal and ureteral calculous obstruction (principal); Z87.442 Personal history of urinary calculi
CPT/HCPCS: 36415; 74176; 80053; 81001; 85025; 87086; 96361; 96374; 96375; 99285; J1885; J2270; J2405

== ENCOUNTER 2024-10-09 09:43 | Outpatient (OUT) | payer MEDICARE, SELFPAY ==
[2024-10-10 08:12] LABS: PSA, Free 1.95 ng/mL
== END 2024-10-09 09:44 | disposition home or self-care (01) ==
LOC: LAB 09:44
PROVIDERS: PCP Family Medicine; Visit Provider Urology
DX: R97.20 Elevated prostate specific antigen [PSA] (principal)
CPT/HCPCS: 36415; 84153; 84154

== ENCOUNTER 2024-10-09 09:48 | Outpatient (OUT) | payer MEDICARE, SELFPAY ==
[2024-10-09 10:18] LABS: Basophils Absolute Auto 0.1 10^3/uL (0.0-0.1); Basophils Percent Auto 0.5 % (0.2-2.0); Eosinophils Absolute Auto 0.2 10^3/uL (0.0-0.7); Eosinophils Percent Auto 2.5 % (0.9-7.0); Hematocrit 42.1 % (42.0-54.0); Hemoglobin 13.3 g/dL (14.0-18.0); Immature Granulocytes Abs Auto 0.03 10^3/uL (0.00-0.03); Immature Granulocytes Pct Auto 0.3 % (0.0-0.5); Lymphocytes Absolute Auto 3.2 10^3/uL (1.2-3.8); Lymphocytes Percent Auto 32.5 % (20.5-60.0); Mean Corpuscular HGB Conc 31.6 g/dL (29.9-35.2); Mean Corpuscular Hemoglobin 26.7 pg (25.9-34.0); Mean Corpuscular Volume 84.4 fL (80.0-94.0); Mean Platelet Volume 11.8 fL (9.5-13.5); Monocytes Absolute Auto 0.8 10^3/uL (0.3-0.8); Monocytes Percent Auto 7.8 % (1.7-12.0); Neutrophils Absolute Auto 5.5 10^3/uL (1.4-6.5); Neutrophils Percent Auto 56.4 % (43.0-75.0); Platelet Count 147 10^3/uL (150-450); Red Blood Count 4.99 10^6/uL (4.70-6.10); Red Cell Distribution Width 15.7 % (11.0-15.0); White Blood Count 9.8 10^3/uL (4.0-11.0)
[2024-10-09 10:32] LABS: Anion Gap 10.6; BUN Creatinine Ratio 12.7; Calcium 8.7 mg/dL (8.5-10.1); Carbon Dioxide 30.7 mmol/L (21.0-32.0); Chloride 104 mmol/L (98-107); Estimated GFR (African America >60 (>=60 mL/min/1.73m^2); Estimated GFR (Non-African Ame >60 (>=60 mL/min/1.73m^2); Glucose 97 mg/dL (74-106); Potassium 4.3 mmol/L (3.5-5.1); Sodium 141 mmol/L (136-145)
== END 2024-10-09 09:49 | disposition home or self-care (01) ==
LOC: LAB 09:49
PROVIDERS: PCP Family Medicine; Visit Provider Family Medicine
DX: D50.9 Iron deficiency anemia, unspecified (principal); I10 Essential (primary) hypertension; R97.20 Elevated prostate specific antigen [PSA]
CPT/HCPCS: 36415; 80048; 82728; 84153; 84154; 85025

== ENCOUNTER 2024-10-22 09:02 | Outpatient (OUT) | payer MEDICARE, SELFPAY ==
--- NOTE | 2024-10-22 09:30 | CA_ITS ---
Patient Name: SOFI NELSON MR#: [id number] : 1950 Exam Date: 10/22/2024 Ordering Doctor: DR ABIGAIL SANCHEZ M.D. ECHOCARDIOGRAM REPORT PROCEDURE: CA ECHO DOPPLER COMPLETE INDICATIONS: Primary hypertension, murmur COMPARISON: None. DESCRIPTION: COMPLETE ECHOCARDIOGRAM Real-time transthoracic echocardiography with 2D, M-mode, spectral and color flow Doppler performed. QUALITY: Technical quality was good. LEFT VENTRICLE: Normal chamber size. Proximal septal hypertrophy (sigmoid septum). No left ventricular outflow obstruction. Normal systolic function. LV EF: Normal left ventricular ejection fraction, (65%). DIASTOLIC: ATRIAL SEPTUM: LEFT ATRIUM: Moderate dilatation. RIGHT ATRIUM: Normal chamber size. RIGHT VENTRICLE: Normal chamber size. Normal right ventricular systolic function. TRICUSPID VALVE: Normal mobility and thickness. No stenosis with mild regurgitation. Doppler studies reveal moderately (45-60) elevated right sided pressures. RVSP 50 mmHg MITRAL VALVE: Posterior leaflet prolapse. No evidence of mitral valve stenosis. There is no mitral annular calcification. Moderate to severe mitral regurgitation with an eccentric anteriorly directed jet. AORTIC VALVE: Normal trileaflet appearance. No visible sclerosis. Normal leaflet mobility. No evidence of aortic valve stenosis. Mild aortic regurgitation. AORTIC ROOT: Normal diameter and appearance. Ascending aorta is normal in size. PULMONIC VALVE: Normal thickness and mobility. No stenosis. Trivial regurgitation. PERICARDIUM: No evidence of pericardial effusion. IVC: Collapses with inspirations. IVC is normal in size. PLEURA: CONCLUSION: 1. The left ventricle is normal in size and exhibits normal systolic function. LVEF is estimated at 65%. 2. Normal right ventricular size and systolic function. 3. Significant prolapse of the posterior mitral leaflet with at least moderate to severe regurgitation with an eccentric anteriorly directed jet. 4. Mild tricuspid and aortic regurgitation. 5. Moderately elevated right-sided pressures. RVSP is 50 mmHg. 6. A transesophageal echocardiogram is recommended for better assessment of the valvular pathology and quantification of the mitral regurgitation. Adult Echocardiography Procedure Report Left Ventricle LVEDD (3.7 - 5.6 cm): 4.08 cm LVESD (2.2 - 4.0 cm): 2.55 cm LVIVS thickness (0.6 - 1.2 cm): 1.24 cm LVPW thickness (0.5 - 1.0 cm): 1.00 cm e': 0.10 m/s E - e': 13.05 LVOT Max Gradient: 4.97 mm[Hg] LVOT Area (cm2): 1.11 m/s Peak Velocity (LVOT): 1.11 m/s Mean Velocity (LVOT): 0.55 m/s LVOT Diameter 2.41 cm Left Atrium LA Volume Index (2D A2C): 44.86 ml/m2 Left Atrium Systolic Dimension: 4.07 cm Mitral Valve MV E to A Ratio: 1.33 Mitral Valve A-Wave Peak Velocity: 1.01 m/s Mitral Valve E-Wave Peak Velocity: 1.34 m/s Right Ventricle Aorta AO Root Diam: 3.55 cm Ascending Ao Diam: 2.84 cm Aortic Valve AoV Area ([place]): 4.03 cm2, 4.03 cm2 AoV Area (VTI): 3.26 cm2, 3.26 cm2 Deceleration Rhea: 2.55 m/s2 Pressure Half-Time: 487.24 ms Peak Velocity(Antegrade Flow): 1.26 m/s Peak Gradient(Antegrade Flow): 6.36 mm[Hg] Mean Velocity(Antegrade Flow): 0.85 m/s Mean Gradient(Antegrade Flow): 3.28 mm[Hg] Velocity Time Integral: 25.76 cm Tricuspid Valve Peak Velocity (Regurgitant Flow): 3.07 m/s, 3.44 m/s Pulmonic Valve Mean Gradient: 2.91 mm[Hg] Mean Velocity: 0.79 m/s Peak Velocity: 1.20 m/s, 1.12 m/s Peak Gradient: 5.06 mm[Hg], 5.79 mm[Hg] Right Atrium Right Atrium Systolic Pressure: 28.97 ml, 28.97 ml Dictated by: Ollie Love M.D. on 10/22/2024 at 19:15 Approved by: Ollie Love M.D. on 10/22/2024 at 19:19
--- NOTE | 2024-10-22 09:30 | ECG_ITS ---
[facility] Test Date: 2024-10-22 Pat Name: SOFI NELSON Department: Room: - Gender: Male Hand Potter: : 1950 Requested By: ABIGAIL SANCHEZ Order Number: [id number] Reading MD: SHERRI FRANKLIN Measurements Intervals [place] Rate: 90 P: 76 ME: 188 QRS: 59 QRSD: 87 T: 61 QT: 357 QTc: 439 Interpretive Statements SINUS RHYTHM WITH SINUS ARRHYTHMIA Compared to ECG 10/16/2017 10:29:15 No significant changes Electronically Signed On 10-22-2024 20:52:36 EST by SHERRI FRANKLIN
== END 2024-10-22 09:03 | disposition home or self-care (01) ==
LOC: CARD 09:02
PROVIDERS: PCP Family Medicine; Visit Provider Family Medicine
DX: R01.1 Cardiac murmur, unspecified (principal); I10 Essential (primary) hypertension
CPT/HCPCS: 93005; 93306

== ENCOUNTER 2024-11-13 07:46 | Outpatient (OUT) | payer MEDICARE, SELFPAY ==
--- OUTSIDE RECORDS SUMMARY | 2024-11-13 07:52 | XMS_ITS | CCD ---
Author Organization [facility] Care Team Providers Care Nut Roaster Name Role Phone SCHROEDER, FELICIANO Unavailable Unavailable RICE, CLEVELAND W Unavailable Unavailable RICE, CLEVELAND W Unavailable Unavailable SCHROEDER, FELICIANO Unavailable Unavailable SCHROEDER, FELICIANO Unavailable Unavailable SCHROEDER, FELICIANO Unavailable Unavailable SCHROEDER, FELICIANO Unavailable Unavailable SCHROEDER, FELICIANO Unavailable Unavailable ALEXA GARCIA Unavailable Unavailable SCHROEDER, FELICIANO Unavailable Unavailable ABIGAIL SANCHEZ Primary Care Physician [phone] Daniel, Abigail Unavailable DANIEL, DR ABIGAIL Trejo Admitting Unavailable SANCHEZ, DR ABIGAIL Trejo Attending Unavailable SANCHEZ, DR ABIGAIL Trejo Primary Care Unavailable SANCHEZ, DR ABIGAIL Trejo Consulting Unavailable GARCIA, DR DENNY Admitting Unavailable GARCIA, DR DENNY Attending Unavailable SANCHEZ, DR ABIGAIL Trejo Primary Care Unavailable [place]LEASANT, DR OLIVER Maguire Consulting Unavailable GARCIA, DR DENNY Consulting Unavailable COOK, DR ROCK Pollock Admitting Unavailable COOK, DR ROCK Pollock Attending Unavailable SANCHEZ, DR ABIGAIL Trejo Primary Care Unavailable COOK, DR ROCK Pollock Consulting Unavailable NILL ., DR BARROSO Admitting Unavailable NILL ., DR BARROSO Attending Unavailable SANCHEZ, DR ABIGAIL Trejo Primary Care Unavailable NILL ., DR BARROSO Consulting Unavailable RODRIGUEZRENÉ COLON Consulting Unavailable NILL ., DR BARROSO Admitting Unavailable NILL ., DR BARROSO Attending Unavailable SANCHEZ, DR ABIGAIL Trejo Primary Care Unavailable NILL ., DR BARROSO Consulting Unavailable REMBERTOXI Consulting Unava ilable GEMBUS, LUCITA Consulting Unavailable KARLEE, DR ROCK Pollock Admitting Unavailable COOK, DR ROCK Pollock Attending Unavailable SANCHEZ, DR ABIGAIL Trejo Primary Care Unavailable COOK, DR ROCK Pollock Consulting Unavailable COOK, Rock Pollock Attending Unavailable COOK, Rock Pollock Attending Unavailable COOK, Rock Pollock Attending Unavailable CHINMAYJOHN FITZPATRICK Attending Unavailable Medications Current Medications Medication Drug Class(es) Dates Sig (Normalized) Sig (Original) amoxicillin 875 mg / clavulanate 125 mg oral tablet (2 sources) Penicillin-class Antibacterial Start: 08-07-2023 take 1 tablet by mouth every twelve hours Amoxicillin-Pot Clavulanate 875-125 MG 1 tablet Orally every 12 hrs for 10 day(s) Aug, Active Daily Multiple for Men 50+ oral tablet (5 sources) Start: 06-15-2020 take 1 tablet by mouth once daily Daily Multiple for Men 50+ oral tablet Oral, Daily, Refill(s) 0 Start Date: 06/15/20 Status: Ordered doxycycline hyclate 100 mg oral tablet (1 source) Tetracycline-class Drug Start: 02-15-2023 take 1 tablet by mouth twice daily doxycycline hyclate 100 mg Tab 100 mg = 1 tab(s), Oral, BID, # 14 tab(s), Refills(s) 0, Pharmacy: [id number], 177, cm, 02/15/23 11:48:00 EDT, Height/Length Dosing, 78.9, kg, 02/15/23 11:48:00 EDT, Weight Dosing Start Date: 02/15/23 Status: Ordered Psyllium (3 sources) Start: 02-15-2023 Metamucil Oral, BID Start Date: 02/15/23 Status: Ordered See instructions (1 source) Start: 09-09-2017 See instructions See instructions, CBC with differential on 09/18/2017 and follow up with PCP/Urologist. Diagnosis Right ureteric stone/UTI, Print Requisition, Supply Start Date: 09/09/17 Status: Ordered tamsulosin hydrochloride 0.4 mg oral capsule (8 sources) alpha-Adrenergic Gordon Start: 01-09-2024 take 1 capsule by mouth twice daily tamsulosin 0.4 mg Cap 0.4 mg = 1 cap(s), Oral, BID, # 180 cap(s), Refills(s) 3, Pharmacy: [id number], 177, cm, 08/23/23 8:44:00 EST, Height/Length Dosing, 78.9, kg, 08/23/23 8:44:00 EST, Weight Dosing Start Date: 01/09/24 Status: Ordered Start: 01-12-2023 take 1 capsule by mo [facility] twice daily tamsulosin 0.4 mg Cap 0.4 mg = 1 cap(s), Oral, BID, # 180 cap(s), Refills(s) 3, Pharmacy: [facility], 177, cm, 07/26/22 13:27:00 EDT, Height/Length Dosing, 87.5, kg, 07/26/22 13:27:00 EDT, Weight Dosing Start Date: 01/12/23 Status: Ordered Start: 01-05-2022 take 1 capsule by [facility] twice daily tamsulosin 0.4 mg Cap 0.4 mg = 1 cap(s), Oral, BID, # 180 cap(s), Refills(s) 3, Pharmacy: [id number], 177, cm, 10/25/21 11:30:00 EST, Height/Length Dosing, 78.9, kg, 10/25/21 11:30:00 EST, Weight Dosing Start Date: 01/05/22 Status: Ordered take 1 capsule by [facility] every twenty-four hours Tamsulosin HCl 0.4 MG 1 capsule Orally Once a day Active Completed/Discontinued Medications Medication Drug Class(es) Dates Sig (Normalized) Sig (Original) losartan potassium 25 mg oral tablet (8 sources) Angiotensin 2 Receptor Gordon Start: 01-12-2016 take 1 tablet by mouth once daily losartan 25 mg Tab 90 EA, TAKE 1 TABLET BY MOUTH DAILY, Refills(s) 0 Start Date: 07/18/22 Status: Ordered take 1 tablet by [facility] every twelve hours Losartan Potassium 25 MG 1 tablet Orally twice a day Active Problems Active Problems Problem Classification Problem Date Documented Date Episodic/Chronic Calculus of urinary tract (12 sources) Calculus of kidney; Translations: [Calculus of ureter] Onset: 09-12-2017 12-18-2019 Episodic Deficiency and other anemia (12 sources) Iron deficiency anemia; Translations: [Iron deficiency anemia, unspecified] 07-18-2022 Episodic Disorders of lipid metabolism (6 sources) Very low density lipoprotinemia; Translations: [Pure hypercholesterolemia, unspecified] Onset: 11-08-2024 07-18-2022 Chronic Diverticulosis and diverticulitis (7 sources) Diverticulitis of intestine, part unspecified, without perforation or abscess without bleeding; Translations: [Diverticulosis of sigmoid colon] Onset: 11-03-2022 Chronic Essential hypertension (14 sources) Essential (primary) hypertension; Translations: [Hypertensive disorder] Onset: 06-18-2015 07-18-2022 Chronic Genitourinary symptoms and ill-defined conditions (20 sources) Samir hematuria; Translations: [Nocturia] Onset: 01-30-2019 Resolved: 03-09-2019 12-18-2019 Episodic Heart valve disorders (2 sources) Nonrheumatic mitral (valve) insufficiency; Translations: [Nonrheumatic mitral (valve) insufficiency] Onset: 11-08-2024 Chronic Hyperplasia of prostate (15 sources) Benign prostatic hypertrophy with outflow obstruction; Translations: [Benign prostatic hyperplasia with lower urinary tract symptoms] Onset: 06-18-2015 Chronic 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 (6 sources) Epididymitis; Translations: [Epididymitis] Onset: 08-23-2023 Episodic Malaise and fatigue (10 sources) Asthenia; Translations: [Fatigue] 06-15-2020 Episodic Nutritional deficiencies (1 source) Vitamin D deficiency, unspecified; Translations: [Vitamin D deficiency, unspecified] Onset: 09-12-2017 Chronic Other and unspecified benign neoplasm (1 source) Benign neoplasm of colon, unspecified Episodic Other and unspecified benign neoplasm (3 sources) Adenomatous polyp of colon 09-13-2022 Episodic [...] nutritional; endocrine; and metabolic disorders (4 sources) Overweight in adulthood with body mass index of 25 or more but less than 30 07-26-2022 Episodic Other nutritional; endocrine; and metabolic disorders (4 sources) Body mass index 25-29 - overweight; Translations: [Body mass index (BMI) 26.0-26.9, adult] Episodic Other screening for suspected conditions (not mental disorders or infectious disease) (16 sources) Raised prostate specific antigen; Translations: [Elevated prostate specific antigen [PSA]] Onset: 04-17-2019 Episodic Other upper respiratory disease (6 sources) Seasonal allergic rhinitis; Translations: [Other seasonal allergic rhinitis] Onset: 11-18-2016 07-18-2022 Chronic Residual codes; unclassified (2 sources) Immunization refused ; Translations: [Immunization not carried out because of patient refusal] Episodic Spondylosis; intervertebral disc disorders; other back problems (5 sources) Degeneration of cervical intervertebral disc 01-13-2016 Chronic Unclassified (1 source) Unknown / UNK(Unknown) Onset: 09-12-2017 Unclassified (1 source) CONTACT W/AND (SUSP) EXPOS COVID-19; Translations: [CONTACT W/AND (SUSP) EXPOS COVID-19] Onset: 08-31-2022 Urinary tract infections (5 sources) Urinary tract infectious disease 06-15-2020 Episodic [...] 09-07-2022 Episodic Other aftercare (1 source) Other retirement (current) drug therapy; Translations: [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 He denies chest pain, SOB, and palpitations. Normal [facility] Ambulatory Visit Summaryon 0 10-16-2024 Ambulatory Visit Summary Ambulatory Visit Summary DARRELL NELSON :1950 Visit Date:10/16/2024 Ambulatory Visit Instructions Your Diagnosis Elevated PSA BPH with urinary obstruction Epididymitis Your Care Team Attending Physician - Rock DESIR MD Primary Care Physician - ABIGAIL SANCHEZ [...] Sinus Surgery. Discharge Vitals Heart Rate (Peripheral) 78 Blood Pressure 163/100 Height 177 cm Height 70 in Weight 78 kg Weight 171.96 lb BMI 24.9 What to do next Scheduled Follow-Up Appointments Monday 8:45 AM EDT With: Rock DESIR MD Where: [facility] [address] [place] [address]- You Need to Schedule the Following Appointments Follow Up with KARLEE GA, ASHLEY Hogan When: Where: [address] [facility] [place] [address]- Medications What How Much When Instructions Unchanged tamsulosin (tamsulosin 0.4 mg Cap) 1 Capsules By Mouth 2 times a day Unchanged losartan (losartan 25 mg Tab) 90 EA, TAKE 1 TABLET BY MOUTH DAILY Contact prescribing physician if questions or concerns Unchanged multivitamin with minerals (Daily Multiple for Men 50+ oral tablet) By Mouth Every day Contact prescribing physician if questions or concerns Unchanged psyllium (Metamucil) By Mouth 2 times a day Contact prescribing physician if questions or concerns Medications and Immunizations Administered Not Given influenza virus vaccine, inactivated, Patient Refuses Allergies No Known Allergies Problems Ongoing - Any problem that you are currently receiving treatment for. BMI 27.0-27.9,adult BPH with urinary obstruction Degenerative disc disease, cervical Elevated PSA Epididymitis Gross hematuria History of kidney stones HTN (hypertension) Iron deficiency anemia Kidney stones Nocturia Seasonal allergic rhinitis Sigmoid diverticulosis Tubulovillous adenoma of colon Urinary retention UTI (urinary tract infection) Very low density lipoprotinemia Weak Historical - Any problem that you are no longer receiving treatment for. Weak urine stream Patient Survey You may receive a survey via text or e-mail asking about your office visit. Please share your experience with us by completing your survey. We appreciate your feedback and thank you for choosing us for your care. Education Materials Prostate Cancer Screening Prostate cancer screening is [...] recommendations. In general, screening is recommended if: ??? You are age 50 to 70 and [...] have a 10- to 15-year life expectancy. ??? You are younger than age 50, and [...] In general, screening is not recommended if: ??? You are younger than age 40. ??? You are between the ages of 40 and 49 and you have no risk factors. ??? You are 70 years of age or older. At this age, the risks that screening can cause are greater than the benefits that it may provide. If you are at high risk for prostate cancer, your health care provider may recommend that you have screenings more often or that yo (more content not included)... Normal [facility] Urology Office/Clinic Noteon 10-16-2024 Urology Office/Clinic Note Urology Office/Clinic Note Chief Complaint 6 mo fu HPI Staff 74 yr old male here for 6 mth f/u w/ PSA Previous DX: BPH w/LUTS, elevated PSA, BPH w/LUTS and epididymitis. Pt. taking Flomax 0.4mg PSA: 12/11/19 - 7.7 & 15.2% 06/02/20 - 9.6 & 15.9% 10/12/20 - 8.1 & 17.3% 03/17/21 - 8.5 & 16.1% 10/19/21 - 9.1 & 17.5% 04/20/22 - 6.5 & 18.5% 02/08/23 - 7.6 & 19.7% 08/16/23 - 9.3 & 15.4% 03/12/24 - 7.7 & 21.0% 10/09/24 - 9 & 21.7% Dysuria: no Incomplete bladder emptying: Hematuria: no Frequency: no Urgency:no Nocturia:1x Stream:good stream Leaking:no Post void dripping:no Wearing pads/ Depends:no Urge incontinence:no Stress incontinence:no Incontinence without Sensory Awareness:no Abdominal pain:no Flank pain:no Sexual complaints: no History of Present Illness Tests reviewed: reviewed UA and PSA. I have reviewed the previous health record information and history for this patient from Dr. Desir I have reviewed and verified the staff [...] HPI. Physical Exam Vitals & Measurements HR: 78(Peripheral) BP: 163/100 HT: 70 in HT: 177 cm WT: 78 kg WT: 171.96 lb BMI: 24.9 General Appearance: alert, no distress, well nourished, well developed male. Prostate: normal prostate, estimated weight 40 gms, no hard nodule observed. Assessment/Plan Portions of this record may have been created with voice recognition artificial intelligence software, specifically Pymetrics, Blend and or LogicLoop. Substitutions may have occurred due to the inherent limitations of voice recognition and artificial intelligence software. 1. Elevated PSA (R97.20: Elevated prostate specific antigen [PSA]) PSA: 12/11/19 - 7.7 & 15.2% 06/02/20 - 9.6 & 15.9% 10/12/20 - 8.1 & 17.3% 03/17/21 - 8.5 & 16.1% 10/19/21 - 9.1 & 17.5% 04/20/22 - 6.5 & 18.5% 02/08/23 - 7.6 & 19.7% 08/16/23 - 9.3 & 15.4% 03/12/24 - 7.7 & 21.0% 10/09/24 - 9 & 21.7% HUGO ~40g, no nodules. PSA continues to fluctuate. Will cont to monitor. Pt understands if PSA would rise logarithmically we would proceed with either MRI or prostate biopsy. -PSA free & total in 6 mos 2. BPH with urinary obstruction (N40.1: Benign prostatic hyperplasia with lower urinary tract symptoms) UA today negative for blood or infection. IPSS 4 (2) Taking Flomax 0.4mg qd. No urinary concerns. -Cont symptomatic monitoring 3. Epididymitis (N45.1: Epididymitis) Left epididymis nontender to palpation on exam 08/23/23. Pain resolved since treatment with doxycycline at prior OV. No concerns currently. -Cont symptomatic monitoring Overall the patient understands that his PSA continues to have fluctuations in the current levels in the same range. No change in his voiding pattern. He is doing well on tamsulosin 0.4 mg daily with no need for dosage changes. Will see him back in 6 months with a repeat free and total PSA Follow-up With When Contact Information KARLEE GA, Rock Pollock, URL [address] [place] [id number]- Additional Instructions: 6 mos w/ PSA free & total Patient Education Prostate Cancer Screening I, Rianna March, personally scribed for Dr. Desir on 10/16/2024 08:31:48. . Documentation recorded by the scribe, Rianna March, accurately reflects the services(s) I performed and decisions made by me. Authenticated by Dr. Desir on 10/16/2024 08:33:21. Problem List/Past Medical History Ongoing BMI 27.0-27.9,adult [...] Extracorporeal shockwave lithotripsy for renal calculus (02/11/2016), Cys (more content not included)... Normal [facility] Comment on above: Result Comment: Elec tronically Signed By: Rock DESIR MD\.br\Date and Time Signed: 10/16/24 08:34 EST\.br\Electronically Co-Signed By: Rianna March\.br\Date and Time Co-Signed: 10/16/24 08:31 EST Lab Reportson 03-21-2024 Lab Reports [id number] Normal [facility] Screenson 03-21-2024 Screens [id number] Normal [facility] Ambulatory Visit Summaryon 0 03-20-2024 Ambulatory Visit Summary DARRELL NELSON :1950 Visit Date:03/20/2024 Ambulatory Visit Instructions Your Diagnosis BPH with urinary obstruction Elevated PSA Epididymitis Your Care Team Attending Physician - Rock DESIR MD Primary Care Physician - ABIGAIL SANCHEZ [...] Follow-Up Appointments Monday 8:00 AM EST With: KARLEE GA, Rock Pollock Where: [facility] Normal [facility] Patient Educationon 03-20-20 Patient Education Urology Benign [...] Follow these instructions at home: ? Take [id number] and prescription medicines only as told by [...] the medicine (more content not included)... Normal [facility] Urology Office/Clinic Noteon 03-20-2024 Urology Office/Clinic Note [...] and history for this patient from Dr. Desir and Laura Darling. I have reviewed and [...] with voice recognition artificial intelligence software, specifically Pymetrics, Blend and or LogicLoop. Substitutions may have occurred due to the [...] continued monitoring. Follow-up With When Contact Information Rock DESIR MD, URL [address] [place] [id number]- Additional Instructions: 6 mos w/ PSA free & total Patient Education Benign Prostatic Hyperplasia I, Rianna March, personally scribed for Dr. Desir on 03/20/2024 09:00:12. . Documentation recorded by the scribeRianna, accurately reflects the services(s) I performed and decisions made by me. Authenticated by Dr. Desir on 03/20/2024 09:02:33. Problem List/Past Medical History [...] bilateral ingui (more content not included)... Normal [facility] Comment on above: Result Comment: Elec tronically Signed By: Rock DESIR MD\.br\Date and Time Signed: 03/20/24 09:03 EDT\.br\Electronically Co-Signed By: Rianna March\.br\Date and Time Co-Signed: 03/20/24 09:00 EDT PSA, FREE AND TOTAL RATIOon 02-09-2023 % Free PSA 19.7 % Normal [facility] Comment on above: Result Comment: The [...] men. Performed By: #### P SAFREE #### [facility] [address] [place] [address] Dr. Vaishali Dorsey Prostate specific Ag [Mass/Vol] 7.6 ng/mL Critically high 0.0-4.0 [facility] Comment on above: Result Comment: Dakota PEGUERO methodology. . According to the [employer], Serum PSA should decrease and [...] disease. Performed By: #### P SAFREE #### [facility] [address] [place] [address] Dr. Vaishali Dorsey PSA, Free 1.50 ng/mL Normal N/A [facility] Comment on above: Result Comment: Dakota PEGUERO methodology. Performed By: #### P SAFREE #### [facility] [address] [place] [address] Dr. Vaishali Dorsey CBC AUTO DIFFon 11-03-2022 BASO # 0.1 103/ul Normal 0.0-0.1 [facility] Comment on above: Performed By: #### C BC #### [facility] [address] [place] [address] Dr. Vaishali Dorsey Basophils/100 WBC (Bld) 0.6 % Normal 0.2-2.0 [facility] Comment on above: Performed By: #### C BC #### [facility] [address] [place] [address] Dr. Vaishali Dorsey EO # 0.5 103/ul Normal 0.0-0.7 [facility] Comment on above: Performed By: #### C BC #### [facility] [address] [place] [address] Dr. Vaishali Dorsey Eosinophils/100 WBC (Bld) 4.4 % Normal 0.9-7.0 [facility] Comment on above: Performed By: #### C BC #### [facility] [address] [place] [address] Dr. Vaishali Dorsey Erythrocyte distribution width (RBC) [Ratio] 17.2 % Critically high 11.0-15.0 [facility] Comment on above: Performed By: #### C BC #### [facility] [address] [place] [address] Dr. Vaishali Dorsey Hematocrit (Bld) [Volume fraction] 39.6 % Critically low 42.0-54.0 [facility] Comment on above: Performed By: #### C BC #### [facility] [address] [place] [address] Dr. Vaishali Dorsey Hemoglobin (Bld) [Mass/Vol] 11.8 g/dL Critically low 14.0-18.0 [facility] Comment on above: Performed By: #### C BC #### [facility] [address] [place] [address] Dr. Vaishali Dorsey IG # 0.03 10e3/ul Normal 0.00-0.03 [facility] Comment on above: Performed By: #### C BC #### [facility] [address] [place] [address] Dr. Vaishali Dorsey IG % 0.3 % Normal 0.0-0.5 [facility] Comment on above: Performed By: #### C BC #### [facility] [address] [place] [address] Dr. Vaishali Dorsey LYMPH # 4.1 103/ul Critically high 1.2-3.8 [facility] Comment on above: Performed By: #### C BC #### [facility] [address] [place] [address] Dr. Vaishali Dorsey Lymphocytes/100 WBC (Bld) 34.2 % Normal 20.5-60.0 [facility] Comment on above: Performed By: #### C BC #### [facility] [address] [place] [address] Dr. Vaishali Dorsey MANUAL DIFF REQ NO Normal [facility] Comment on above: Performed By: #### C BC #### [facility] [address] [place] [address] Dr. Vaishali Dorsey MCH (RBC) [Entitic mass] 24.5 pg Critically low 25.9-34.0 [facility] Comment on above: Performed By: #### C BC #### [facility] [address] [place] [address] Dr. Vaishali Dorsey MCHC (RBC) [Mass/Vol] 29.8 g/dL Critically low 29.9-35.2 [facility] Comment on above: Performed By: #### C BC #### [facility] [address] [place] [address] Dr. Vaishali Dorsey MCV (RBC) [Entitic vol] 82.2 fL Normal 80.0-94.0 [facility] Comment on above: Performed By: #### C BC #### [facility] [address] [place] [address] Dr. Vaishali Dorsey MONO # 1.1 103/ul Critically high 0.3-0.8 [facility] Comment on above: Performed By: #### C BC #### [facility] [address] [place] [address] Dr. Vaishali Dorsey Monocytes/100 WBC (Bld) 9.1 % Normal 1.7-12.0 [facility] Comment on above: Performed By: #### C BC #### [facility] [address] [place] [address] Dr. Vaishali Dorsey NEUT # 6.1 103/ul Normal 1.4-6.5 [facility] Comment on above: Performed By: #### C BC #### [facility] [address] [place] [address] [address] Vaishali Dorsey Neutrophils/100 WBC (Bld) 51.4 % Normal 43.0-75.0 [facility] Comment on above: Performed By: #### C BC #### [facility] [address] [place] [address] Dr. Vaishali Dorsey Platelet mean volume (Bld) [Entitic vol] 10.3 fL Normal 9.5-13.5 [facility] Comment on above: Performed By: #### C BC #### [facility] [address] [place] [address] [address] Vaishali Dorsey PLT 231 103/ul Normal 150-450 [facility] Comment on above: Performed By: #### C BC #### [facility] [address] [place] [address] Dr. Vaishali Dorsey RBC 4.82 106/ul Normal 4.70-6.10 The [facility] [place] Comment on above: Performed By: #### C BC #### [facility] [place] [facility] [address] [place] [address] Dr. Vaishali Dorsey WBC 11.9 103/ul Critically high 4.0-11.0 The [facility] [place] Comment on above: Performed By: #### C BC #### [facility] [place] [facility] [address] [place] [address] ABD/PELV W CONon [...] OLIVER CHAVEZ Date: 2022-11-03 13:53 Normal The [facility] PROF CHEM 8 (BAS METB)on Anion gap [Moles/Vol] 10.3 mmol/L Normal The [facility] [place] Comment on above: Performed By: #### B MP ####[facility] [place] [address] [place], [place] [address]Dr. Vaishali Dorsey Calcium [Mass/Vol] 9.2 mg/dL Normal 8.5-10.1 The [facility] [place] Comment on above: Performed By: #### B MP ####[facility] [address] [place], [place] [address]Dr. Vaishali Dorsey Chloride [Moles/Vol] 105 mmol/L Normal 98-107 The [facility] [place] Comment on above: Performed By: #### B MP ####[facility] [place] [address] [place], [place] [address]Dr. Vaishali Dorsey CO2 [Moles/Vol] 32.4 mmol/L Critically high 21.0-32.0 The [facility] [place] Comment on above: Performed By: #### B MP ####[facility] [place] [address] [place] [address]Dr. Vaishali Dorsey Creatinine [Mass/Vol] 1.00 mg/dL Normal 0.70-1.30 The [facility] [place] Comment on above: Performed By: #### B MP ####[facility] [address] [place], [place] [address]Dr. Vaishali Dorsey EGFR-AF MALAWIAN >60 Normal >=60 The [facility] [place] Comment on above: Performed By: #### B MP ####[facility] [address] [place] [address]Dr. Vaishali Dorsey EGFR-NON AF MALAWIAN >60 Normal >=60 The [facility] [place] Comment on above: Performed By: #### B MP ####[facility] [place] [address] [place] [address]Dr. Vaishali Dorsey Glucose [Mass/Vol] 101 mg/dL Normal 74-106 The [facility] [place] Comment on above: Performed By: #### B MP ####[facility] [address] [place] [address]Dr. Vaishali Dorsey Potassium [Moles/Vol] 5.7 mmol/L Critically high 3.5-5.1 The [facility] [place] Comment on above: Performed By: #### B MP ####[facility] [address] [place] [address]Dr. Vaishali Dorsey Sodium [Moles/Vol] 142 mmol/L Normal 136-145 The [facility] Comment on above: Performed By: #### B MP ####[facility] [address] [place] [address]Dr. Vaishali Dorsey Urea nitrogen [Mass/Vol] 13.0 mg/dL Normal 7.0-18.0 The [facility] [place] Comment on above: Performed By: #### B MP ####[facility] [address] [place] [address]Dr. Vaishali Dorsey Urea nitrogen/Creatinin e [Mass ratio] 13.0 mg/mg Normal The [facility] [place] Comment on above: Performed By: #### B MP ####[facility] [address] [place] [address]DrBraden Dorsey PROTIMEon 11-03-2022 INR Coag (PPP) [Relative time] 0.96 {INR} Normal The [facility] [place] Comment on above: Performed By: #### P T #### [facility] [place] [facility] [address] [address] [address] Vaishali Dorsey INR GUIDELINES SEE BELOW Normal The [facility] Comment on above: Result Comment: JOSEF RED INR: 2.0 - 3.0 CONDITIONS NOT LISTED BELOW 2.5 - 3.5 FOR PROSTHETIC HEART VALVE REPLACEMENT 2.5 - 3.5 RECURRENT THROMBOSIS Performed By: #### P T #### [facility] [address] [place] [address] Dr. Vaishali Dorsey PT Coag (PPP) [Time] 10.2 s Normal 9.0-11.6 [facility] Comment on above: Performed By: #### P T #### [facility] [address] [place] [address] Dr. Vaishali Dorsey Covid-19 PCR ([facility])on 08-03 SARS-CoV-2 (COVID-19) RNA NICK+probe Ql (Unsp spec) Not detected Normal NOT DETECTED The [facility] Comment on above: Result Comment: When diagnostic [...] for this test is supported by the [place] of Health and Human Service's declaration that [...] used). Performed By: #### C VDTBH #### [facility] [place] [facility] [address] [place] [address] Dr. Vaishali Dorsey CBC AUTO DIFFon 06-28-2022 BASO # 0.1 103/ul Normal 0.0-0.1 [facility] Comment on above: Performed By: #### C BC #### [facility] [place] [facility] [address] [place] [address] Dr. Vaishali Dorsey Basophils/100 WBC (Bld) 0.6 % Normal 0.2-2.0 [facility] Comment on above: Performed By: #### C BC #### [facility] [place] [facility] [address] [place] [address] Dr. Vaishali Dorsey EO # 0.3 103/ul Normal 0.0-0.7 The [facility] Comment on above: Performed By: #### C BC #### [facility] [address] [place] [address] Dr. Vaishali Dorsey Eosinophils/100 WBC (Bld) 2.0 % Normal 0.9-7.0 The [facility] Comment on above: Performed By: #### C BC #### [facility] [address] [place] [address] Dr. Vaishali Dorsey Erythrocyte distribution width (RBC) [Ratio] 16.4 % Critically high 11.0-15.0 The [facility] Comment on above: Performed By: #### C BC #### [facility] [address] [place] [address] Dr. Vaishali Dorsey Hematocrit (Bld) [Volume fraction] 38.0 % Critically low 42.0-54.0 [facility] Comment on above: Performed By: #### C BC #### [facility] [address] [place] [address] Dr. Vaishali Dorsey Hemoglobin (Bld) [Mass/Vol] 11.8 g/dL Critically low 14.0-18.0 [facility] Comment on above: Performed By: #### C BC #### [facility] [address] [place] [address] Dr. Vaishali Dorsey IG # 0.04 10e3/ul Critically high 0.00-0.03 The [facility] Comment on above: Performed By: #### C BC #### [facility] [address] [place] [address] Dr. Vaishali Dorsey IG % 0.3 % Normal 0.0-0.5 The [facility] Comment on above: Performed By: #### C BC #### [facility] [address] [place] [address] Dr. Vaishali Dorsey LYMPH # 3.6 103/ul Normal 1.2-3.8 The [facility] Comment on above: Performed By: #### C BC #### [facility] [address] [place] [address] Dr. Vaishali Dorsey Lymphocytes/100 WBC (Bld) 28.4 % Normal 20.5-60.0 [facility] Comment on above: Performed By: #### C BC #### [facility] [address] [place] [address] Dr. Vaishali Dorsey MANUAL DIFF REQ NO Normal The [facility] Comment on above: Performed By: #### C BC #### [facility] [address] [place] [address] Dr. Vaishali Dorsey MCH (RBC) [Entitic mass] 25.2 pg Critically low 25.9-34.0 [facility] Comment on above: Performed By: #### C BC #### [facility] [address] [place] [address] Dr. Vaishali Dorsey MCHC (RBC) [Mass/Vol] 31.1 g/dL Normal 29.9-35.2 [facility] Comment on above: Performed By: #### C BC #### [facility] [address] [place] [address] Dr. Vaishali Dorsey MCV (RBC) [Entitic vol] 81.0 fL Normal 80.0-94.0 [facility] Comment on above: Performed By: #### C BC #### [facility] [address] [place] [address] Dr. Vaishali Dorsey MONO # 1.1 103/ul Critically high 0.3-0.8 [facility] Comment on above: Performed By: #### C BC #### [facility] [address] [place] [address] Dr. Vaishali Dorsey Monocytes/100 WBC (Bld) 8.3 % Normal 1.7-12.0 The [facility] Comment on above: Performed By: #### C BC #### [facility] [address] [place] [address] Dr. Vaishali Dorsey NEUT # 7.6 103/ul Critically high 1.4-6.5 The [facility] Comment on above: Performed By: #### C BC #### [facility] [address] [place] [address] Dr. Vaishali Dorsey Neutrophils/100 WBC (Bld) 60.4 % Normal 43.0-75.0 [facility] Comment on above: Performed By: #### C BC #### [facility] [address] [place] [address] Dr. Vaishali Dorsey Platelet mean volume (Bld) [Entitic vol] 10.7 fL Normal 9.5-13.5 [facility] Comment on above: Performed By: #### C BC #### [facility] [address] [place] [address] Dr. Vaishali Dorsey PLT 226 103/ul Normal 150-450 The [facility] Comment on above: Performed By: #### C BC #### [facility] [address] [place] [address] Dr. Vaishali Dorsey RBC 4.69 106/ul Critically low 4.70-6.10 The [facility] Comment on above: Performed By: #### C BC #### [facility] [address] [place] [address] Dr. Vaishali Dorsey WBC 12.6 103/ul Critically high 4.0-11.0 The [facility] Comment on above: Performed By: #### C BC #### [facility] [address] [place] [address] Dr. Vaishali Dorsey FERRITINon 06-28-2022 Ferritin [Mass/Vol] 8.0 ng/mL Critically low 26.0-388.0 [facility] Comment on above: Performed By: #### F ERR #### [facility] [address] [place] [address] Dr. Vaishali Dorsey PROF 14(COMP METB)on 022 Albumin [Mass/Vol] 3.8 g/dL Normal 3.4-5.0 [facility] Comment on above: Performed By: #### C MP #### [facility] [address] [place] [address] Dr. Vaishali Dorsey Albumin/Globulin [Mass ratio] 1.1 {ratio} Normal [facility] Comment on above: Performed By: #### C MP #### [facility] [address] [place] [address] Dr. Vaishali Dorsey ALP [Catalytic activity/Vol] 66 U/L Normal 46-116 The [facility] Comment on above: Performed By: #### C MP #### [facility] [address] [address] [address] Vaishali Dorsey ALT [Catalytic activity/Vol] 22 U/L Normal 16-63 [facility] Comment on above: Performed By: #### C MP #### [facility] [address] [address] [address] Vaishali Dorsey Anion gap [Moles/Vol] 10.4 mmol/L Normal [facility] Comment on above: Performed By: #### C MP #### [facility] [address] [place] [address] Dr. Vaishali Dorsey AST [Catalytic activity/Vol] 19 U/L Normal 15-37 [facility] Comment on above: Performed By: #### C MP #### [facility] [address] [place] [address] Dr. Vaishali Dorsey Bilirubin [Mass/Vol] 0.2 mg/dL Normal 0.2-1.0 [facility] Comment on above: Performed By: #### C MP #### [facility] [address] [place] [address] Dr. Vaishali Dorsey Calcium [Mass/Vol] 9.2 mg/dL Normal 8.5-10.1 [facility] Comment on above: Performed By: #### C MP #### [facility] [address] [place] [address] Dr. Vaishali Dorsey Chloride [Moles/Vol] 107 mmol/L Normal 98-107 The [facility] Comment on above: Performed By: #### C MP #### [facility] [address] [address] [address] Vaishali Dorsey CO2 [Moles/Vol] 31.2 mmol/L Normal 21.0-32.0 The [facility] Comment on above: Performed By: #### C MP #### [facility] [address] [address] [address] Vaishali Dorsey Creatinine [Mass/Vol] 1.02 mg/dL Normal 0.70-1.30 The [facility] Comment on above: Performed By: #### C MP #### [facility] [address] [place] [address] Dr. Vaishali Dorsey EGFR-AF MALAWIAN >60 Normal >=60 The [facility] Comment on above: Performed By: #### C MP #### [facility] [address] [address] [address] Vaishali Dorsey EGFR-NON AF MALAWIAN >60 Normal >=60 The [facility] Comment on above: Performed By: #### C MP #### [facility] [address] [address] [address] Vaishali Dorsey Globulin (S) [Mass/Vol] 3.6 g/dL Normal [facility] Comment on above: Performed By: #### C MP #### [facility] [address] [place] [address] Dr. Vaishali Dorsey Glucose [Mass/Vol] 101 mg/dL Normal 74-106 [facility] Comment on above: Performed By: #### C MP #### [facility] [address] [place] [address] Dr. Vaishali Dorsey Potassium [Moles/Vol] 4.6 mmol/L Normal 3.5-5.1 The [facility] Comment on above: Performed By: #### C MP #### [facility] [address] [place] [address] Dr. Vaishali Dorsey Protein [Mass/Vol] 7.4 g/dL Normal 6.4-8.2 The [facility] Comment on above: Performed By: #### C MP #### [facility] [address] [place] [address] Dr. Vaishali Dorsey Sodium [Moles/Vol] 144 mmol/L Normal 136-145 The [facility] Comment on above: Performed By: #### C MP #### [facility] [address] [place] [address] Dr. Vaishali Dorsey Urea nitrogen [Mass/Vol] 14.0 mg/dL Normal 7.0-18.0 The [facility] Comment on above: Performed By: #### C MP #### [facility] [place] [facility] [address] [place], [place] [address] Dr. Vaishali Dorsey Urea nitrogen/Creatinin e [Mass ratio] 13.7 mg/mg Normal [facility] Comment on above: Performed By: #### C MP #### [facility] [place] [facility] [address] [place], [place] [address] Dr. Vaishali Dorsey PSA, FREE AND TOTAL RATIOon 04-21-2022 % Free PSA 18.9 % Normal [facility] Comment on above: Result Comment: The [...] men. Performed By: #### P SAFREE #### [facility] [place] [facility] [address] [address] [address] Vaishali Dorsey Prostate specific Ag [Mass/Vol] 6.5 ng/mL Critically high 0.0-4.0 [facility] Comment on above: Result Comment: Roch e ECLIA methodology. . According to the [place] [employer], Serum PSA should decrease and [...] disease. Performed By: #### P SAFREE #### [facility] [place] [facility] [address] [address] [address] Vaishali Dorsey PSA, Free 1.23 ng/mL Normal N/A [facility] Comment on above: Result Comment: Roch e ECLIA methodology. Performed By: #### P SAFREE #### [facility] [place] [facility] [address] [address] [address] Vaishail Dorsey COVID[facility] SARS-CoV-2 (COVID-19) RNA NICK+probe Ql (Unsp spec) Negative Normal Negative [facility] Comment on above: Order Comment: Healt hcare Worker?: N Result Comment: Testing for SARS-CoV-2 by RT-PCR This test was developed and its performance characteristics determined by [employer] ([employer]) and validated at the [facility]. This test has not been FDA cleared [...] is terminated or revoked sooner. PERFORMED BY: [place] [address] PATHOLOGIST INSPECTOR TIMERS KAMERON MARTIN M.D. Performed By: #### C OVID 19 [facility] #### [address] Basic Metabolic Panlon 10-22 Anion gap 12 mmol/L Normal 9-18 [facility] Comment on above: Performed By: #### I CA, CBCDIF, VITD, PTHI, CMP, URIC ####[facility] [address] [place], [place] [phone] Calcium 8.2 mg/dL Low 8.5-10.2 [facility] Comment on above: Performed By: #### I CA, CBCDIF, VITD, PTHI, CMP, URIC ####[facility] [phone] Chloride 102 mmol/L Normal 97-105 [facility] Comment on above: Performed By: #### I CA, CBCDIF, VITD, PTHI, CMP, URIC ####[facility] [phone] CO2 26 mmol/L Normal 22-30 [facility] Comment on above: Performed By: #### I CA, CBCDIF, VITD, PTHI, CMP, URIC ####[place] [address] [phone] Creatinine 0.98 mg/dL Normal 0.73-1.22 [facility] Comment on above: Performed By: #### I CA, CBCDIF, VITD, PTHI, CMP, URIC ####[place] [address] [address] [phone] eGFR (non-black) mL/min/{1.73_m2} Normal [facility] Comment on above: Result Comment: eGFR [...] I CA, CBCDIF, VITD, PTHI, CMP, URIC ####[place] [address] [phone] Glucose mass conc 85 mg/dL Normal 74-99 [facility] Comment on above: Result Comment: The [place] [employer] (ADA) provides guidance for cutoff [...] Standards of Medical Care in Diabetes 2016, [place] [employer]. Diabetes Care. 2016.39(Suppl 1). Performed By: #### I CA, CBCDIF, VITD, PTHI, CMP, URIC ####[place] [address] [address] [phone] Potassium molar conc 3.5 mmol/L Low 3.7-5.1 [facility] Comment on above: Performed By: #### I CA, CBCDIF, VITD, PTHI, CMP, URIC ####[place] [address] [address] [phone] Sodium 140 mmol/L Normal 136-144 [facility] Comment on above: Performed By: #### I CA, CBCDIF, VITD, PTHI, CMP, URIC ####[place] [address] [address] [place] [phone] Urea nitrogen 5 mg/dL Low 9-24 [facility] Comment on above: Performed By: #### I CA, CBCDIF, VITD, PTHI, CMP, URIC ####[place] [address] [address] [phone] CBCon 10-22-2017 Erythrocyte distribution width Auto Ratio (RBC) 13.1 % Normal 11.5-15.0 [facility] Comment on above: Performed By: #### I CA, CBCDIF, VITD, PTHI, CMP, URIC ####[place] [address] [address] [place] [phone] Erythrocytes (RBC) 10*6/uL Normal <0.01 [facility] Comment on above: Performed By: #### I CA, CBCDIF, VITD, PTHI, CMP, URIC ####[place] [address] [address] [place] [phone] Erythrocytes (RBC) 3.32 10*6/uL Low 4.20-6.00 [facility] Comment on above: Performed By: #### I CA, CBCDIF, VITD, PTHI, CMP, URIC ####[phone] Hematocrit (HCT) 29.6 % Low 39.0-51.0 [facility] Comment on above: Performed By: #### I CA, CBCDIF, VITD, PTHI, CMP, URIC ####[address] [phone] Hemoglobin mass conc (Bld) 9.8 g/dL Low 13.0-17.0 [facility] Comment on above: Performed By: #### I CA, CBCDIF, VITD, PTHI, CMP, URIC ####[place] [phone] MCH 29.5 pG Normal 26.0-34.0 [facility] Comment on above: Performed By: #### I CA, CBCDIF, VITD, PTHI, CMP, URIC ####[place] [phone] MCHC mass conc (RBC) 33.1 g/dL Normal 30.5-36.0 [facility] Comment on above: Performed By: #### I CA, CBCDIF, VITD, PTHI, CMP, URIC ####[address] [phone] MCV 89.2 fL Normal 80.0-100.0 [facility] Comment on above: Performed By: #### I CA, CBCDIF, VITD, PTHI, CMP, URIC ####[place] [address] [place], [place] [phone] Platelet mean volume (PMV) 10.5 fL Normal 9.0-12.7 [facility] Comment on above: Performed By: #### I CA, CBCDIF, VITD, PTHI, CMP, URIC ####[facility] [place], [place] [phone] Platelets 267 10*3/uL Normal 150-400 [facility] Comment on above: Performed By: #### I CA, CBCDIF, VITD, PTHI, CMP, URIC ####[facility] [place], [place] [phone] WBC (Leukocytes) 10.19 10*3/uL Normal 3.70-11.00 [facility] Comment on above: Performed By: #### I CA, CBCDIF, VITD, PTHI, CMP, URIC ####[facility] [place], [place] [phone] CNDSon 10-22-2017 CNDS HNO ID: [id number] thor: Feliciano Santanaervice: UrologyAuthor Type: PhysicianType: Discharge SummariesFiled: 10/23/2017 8:54 AMNote Text:DISCHARGE SUMMARYPATIENT NAME: Darrell Nelson ADMISSION DATE: 10/21/2017MRN: [id number] DISCHARGE DATE: 10/22/2017Attending Physician: Feliciano Vega for [...] of this patient.SIGNATURE: Tk Abdalla MD PAGER: [phone]: October 22, 2017TIME: 9:32 AMRADHA Johnirector, Surgical Stone Disease, [facility] Urologic InstituteProfessor of Surgery, [facility] of MedicinePager [id number]/23/2017 [facility] PROGRESSon 10-22-2017 PROGRESS HNO ID: [id number] thor: Tk (ResNIK Newtonervice: UrologyAuthor Type: ResidentType: Progress NotesFiled: 10/22/2017 9:14 AMNote Text:UROLOGY INPATIENT PROGRESS NOTESERVICE DATE: 10/22/2017SERVICE TIME: 7:31amSubjectiveNo acute events overnightDenies abdominal/flank painNo N/VObjectivePHYSICAL EXAM:Gender:General: NADHEENT: Normocephalic, atraumaticCV:: RRR, well-perfusedResp: breathing comfortably on room airGI: Soft, NDNTGU: rios draining clear derick urineExtremities: no cyanosis or [...] lb 4 oz) SpO2 95% BMI 25.43 kg/o1Uiwbpldhnsh max: Temp (24hrs), Av.1 ?C (98.7 ?F), Min:36.8 ?C (98.3?F), Max:37.2 ?C (99 ?F)Intake/Output 10/21/17 0700 - 10/22/17 0659 10/22/17 0700 - 10/23/17 0659 Intake (ml) 2180 -- Output (ml) 2550 650 Net (ml) -370 -650LABS:BUN (mg/dL)Date Value10/22/2017 501 801 701 912 10 Creatinine (mg/dL)Date Value10/22/2017 0.9801 0.9201 0.9001 1.0012 1.05 Recent Labs 080104SGA 10.19HB 9.8*HCT 29.6*NA 140K 3.5*CHLOR 102CO2 26GLUC 85Glucose, Urine (mg/dL)Date Value10/21/2017 Negative Bilirubin, Urine (no units)Date Value10/21/2017 Negative Ketones, Urine (no units)Date Value10/21/2017 Negative Specific [place], Ur (no units)Date Value10/21/2017 1.010 Hemoglobin/Blood ,Ur ( )Date Value10/21/2017 3+ (A) pH, Urine (no units)Date Value10/21/2017 6.0 Protein, Urine (mg/dL)Date Value10/21/2017 30 (A) Nitrites (no units)Date Value10/21/2017 Negative WBC, Urine (/HPF)Date Value10/21/2017 >25 (A) Color (no units)Date Value10/21/2017 Yellow Clarity (no units)Date Value10/21/2017 Cloudy (A) Assessment/PlanAct [facility] Problems Leukocytosis [D72.829]Mr. Nelson is a [...] issues#GI --Diet: regular-Colace, Zofran# -- Creatinine 0.98- Rios: draining clear derick urine- Obtain urine culture-Stent removal at bedside this morning#Activity - OOB to chair and Ambulate with assistance#DVT prophylaxis - SCDs#Antibiotics - Ancef 2g q8h for prophylaxis?SIGNATURE: Tk Abdalla MD PATIENT NAME: Darrell ElizaldeATE: October 22, 2017 : 7:31 AM PAGER/CONTACT #: [phone] Normal [facility] Basic Metabolic Panlon 10-21 Anion gap 14 mmol/L Normal 9-18 [facility] Comment on above: Performed By: #### I CA, CBCDIF, VITD, PTHI, CMP, URIC ####[place] [id number] [place] [phone] Calcium 8.3 mg/dL Low 8.5-10.2 [facility] Comment on above: Performed By: #### I CA, CBCDIF, VITD, PTHI, CMP, URIC ####[facility]CK[address] [place] [phone] Chloride 104 mmol/L Normal 97-105 [facility] Comment on above: Performed By: #### I CA, CBCDIF, VITD, PTHI, CMP, URIC ####[facility] [place] [phone] CO2 25 mmol/L Normal 22-30 [facility] Comment on above: Performed By: #### I CA, CBCDIF, VITD, PTHI, CMP, URIC ####[place] [id number] AveCKatherine [place] [phone] Creatinine 0.92 mg/dL Normal 0.73-1.22 [facility] Comment on above: Performed By: #### I CA, CBCDIF, VITD, PTHI, CMP, URIC ####[place] [id number] AveCK[address] [place] [phone] eGFR (non-black) mL/min/{1.73_m2} Normal [facility] Comment on above: Result Comment: eGFR [...] CBCDIF, VITD, PTHI, CMP, URIC ####[facility] [place], [place] [phone] Glucose mass conc 79 mg/dL Normal 74-99 [facility] Comment on above: Result Comment: The [place] [employer] (ADA) provides guidance for cutoff [...] Standards of Medical Care in Diabetes 2016, [place] [employer]. Diabetes Care. 2016.39(Suppl 1). Performed By: #### I CA, CBCDIF, VITD, PTHI, CMP, URIC ####[facility], [place] [phone] Potassium molar conc 3.7 mmol/L Normal 3.7-5.1 [facility] Comment on above: Performed By: #### I CA, CBCDIF, VITD, PTHI, CMP, URIC ####[facility]CE[address], [place] [phone] Sodium 143 mmol/L Normal 136-144 [facility] Comment on above: Performed By: #### I CA, CBCDIF, VITD, PTHI, CMP, URIC ####[address] [phone] Urea nitrogen 8 mg/dL Low 9-24 [facility] Comment on above: Performed By: #### I CA, CBCDIF, VITD, PTHI, CMP, URIC ####[place] [phone] CBC and Differentialon 10-21 Abs Baso 0.05 k/uL Normal <0.11 [facility] Comment on above: Performed By: #### I CA, CBCDIF, VITD, PTHI, CMP, URIC ####[address] [phone] Abs [place] 0.81 k/uL Normal <0.87 [facility] Comment on above: Performed By: #### I CA, CBCDIF, VITD, PTHI, CMP, URIC ####[place] [phone] Abs Neut 6.30 k/uL Normal 1.45-7.50 [facility] Comment on above: Performed By: #### I CA, CBCDIF, VITD, PTHI, CMP, URIC ####[place] [phone] Basophils/100 WBC Auto (Bld) 0.5 % Normal [facility] Comment on above: Performed By: #### I CA, CBCDIF, VITD, PTHI, CMP, URIC ####[address] [phone] DTYPE Auto Diff Normal [facility] Comment on above: Performed By: #### I CA, CBCDIF, VITD, PTHI, CMP, URIC ####[address] [phone] Eosinophils 0.24 10*3/uL Normal <0.46 [facility] Comment on above: Performed By: #### I CA, CBCDIF, VITD, PTHI, CMP, URIC ####[place] [address] [place] [phone] Eosinophils/100 leukocytes 2.3 % Normal [facility] Comment on above: Performed By: #### I CA, CBCDIF, VITD, PTHI, CMP, URIC ####[place] [address] [place] [phone] Erythrocyte distribution width Auto Ratio (RBC) 13.1 % Normal 11.5-15.0 [facility] Comment on above: Performed By: #### I CA, CBCDIF, VITD, PTHI, CMP, URIC ####[place] [address] [place] [phone] Erythrocytes (RBC) 3.34 10*6/uL Low 4.20-6.00 [facility] Comment on above: Performed By: #### I CA, CBCDIF, VITD, PTHI, CMP, URIC ####[place] [address] [place] [phone] Erythrocytes (RBC) 10*6/uL Normal <0.01 [facility] Comment on above: Performed By: #### I CA, CBCDIF, VITD, PTHI, CMP, URIC ####[place] [address] [place] [phone] Erythrocytes (RBC) 0.0 /100 WBC Normal 0 [facility] Comment on above: Performed By: #### I CA, CBCDIF, VITD, PTHI, CMP, URIC ####[place] [address] [place] [phone] Hematocrit (HCT) 30.2 % Low 39.0-51.0 [facility] Comment on above: Performed By: #### I CA, CBCDIF, VITD, PTHI, CMP, URIC ####[place] [address] [place] [phone] Hemoglobin mass conc (Bld) 10.2 g/dL Low 13.0-17.0 [facility] Comment on above: Performed By: #### I CA, CBCDIF, VITD, PTHI, CMP, URIC ####[place] [address] [address]CNicole [place] [phone] Lymphocytes 3.06 10*3/uL Normal 1.00-4.00 [facility] Comment on above: Performed By: #### I CA, CBCDIF, VITD, PTHI, CMP, URIC ####[place] [address] [place] [phone] Lymphocytes/100 leukocytes 29.3 % Normal [facility] Comment on above: Performed By: #### I CA, CBCDIF, VITD, PTHI, CMP, URIC ####[place] [address] [place] [phone] MCH 30.5 pG Normal 26.0-34.0 [facility] Comment on above: Performed By: #### I CA, CBCDIF, VITD, PTHI, CMP, URIC ####[place] [address] [phone] MCHC mass conc (RBC) 33.8 g/dL Normal 30.5-36.0 [facility] Comment on above: Performed By: #### I CA, CBCDIF, VITD, PTHI, CMP, URIC ####[place] [address] [place] [phone] MCV 90.4 fL Normal 80.0-100.0 [facility] Comment on above: Performed By: #### I CA, CBCDIF, VITD, PTHI, CMP, URIC ####[place] [address] [place], [place] [phone] Monocytes/100 leukocytes 7.7 % Normal [facility] Comment on above: Performed By: #### I CA, CBCDIF, VITD, PTHI, CMP, URIC ####[place] [address], [place] [phone] Neutrophils/100 WBC Auto (Bld) 60.2 % Normal [facility] Comment on above: Performed By: #### I CA, CBCDIF, VITD, PTHI, CMP, URIC ####[address] [place], [place] [phone] Platelet mean volume (PMV) 10.7 fL Normal 9.0-12.7 [facility] Comment on above: Performed By: #### I CA, CBCDIF, VITD, PTHI, CMP, URIC ####[address] [phone] Platelets 260 10*3/uL Normal 150-400 [facility] Comment on above: Performed By: #### I CA, CBCDIF, VITD, PTHI, CMP, URIC ####[address] [place], [place] [phone] WBC (Leukocytes) 10.46 10*3/uL Normal 3.70-11.00 [facility] Comment on above: Performed By: #### I CA, CBCDIF, VITD, PTHI, CMP, URIC ####[address] [place], [place] [phone] Protimeon 10-21-2017 INR Coag RelTime (Bld) 1.0 {INR} Normal 0.9-1.3 [facility] Comment on above: Result Comment: Laisha min K Antagonist (VKA) Therapeutic Range: INR 2 to 3 (Target INR of 2.5)Note: For patients treated with VKA drugs, such as warfarin, the [place] [employer] 2012 Guideline recommends [...] al. Chest 2012, 141:7S-47SNishimura RA, et al. [facility] 2017, 70: 252-289 Performed By: #### I CA, CBCDIF, VITD, PTHI, CMP, URIC ####[place] [address], [place] [phone] PT Sec 10.4 sec Normal 9.7-13.0 [facility] Comment on above: Performed By: #### I CA, CBCDIF, VITD, PTHI, CMP, URIC ####[place] [id number], [place] [phone] Type and Screenon 10-21-2017 ABO/RH(D) Positive Normal [facility] Comment on above: Performed By: #### I CA, CBCDIF, VITD, PTHI, CMP, URIC ####[place] [address] [place], [place] [phone] Antibody Screen Negative Normal [facility] Comment on above: Performed By: #### I CA, CBCDIF, VITD, PTHI, CMP, URIC ####[place] [address]CE[address], [place] [phone] Urinalysison 10-21-2017 Bilirubin, Urine Negative Normal Negative [facility] Comment on above: Performed By: #### I CA, CBCDIF, VITD, PTHI, CMP, URIC ####[place] [address], [place] [phone] Comments SEE COMMENT Normal [facility] Comment on above: Result Comment: Micr oscopic Examination Performed Performed By: #### I CA, CBCDIF, VITD, PTHI, CMP, URIC ####[place] [address]CDeb[address] [place] [phone] Erythrocytes (RBC) 10*6/uL Critically abnormal 0-3 [facility] Comment on above: Performed By: #### I CA, CBCDIF, VITD, PTHI, CMP, URIC ####[place] [address]eb[address] [place] [phone] Hemoglobin mass conc (Bld) 3+ Critically abnormal Negative [facility] Comment on above: Performed By: #### I CA, CBCDIF, VITD, PTHI, CMP, URIC ####[place] [address] [place] [phone] Leukest 3+ Critically abnormal Negative [facility] Comment on above: Performed By: #### I CA, CBCDIF, VITD, PTHI, CMP, URIC ####[place] [address] [address] [place] [phone] pH of blood 6.0 [pH] Normal 4.5-8.0 [facility] Comment on above: Performed By: #### I CA, CBCDIF, VITD, PTHI, CMP, URIC ####[place] [address] [place] [phone] Protein, Urine 30 mg/dL Critically abnormal Negative [facility] Comment on above: Performed By: #### I CA, CBCDIF, VITD, PTHI, CMP, URIC ####[place] [address] [place] [phone] Specific [place], Ur 1.010 Normal 1.005-1.03 0 [facility] Comment on above: Performed By: #### I CA, CBCDIF, VITD, PTHI, CMP, URIC ####[place] [address] [address] [place] [phone] Urine Kelby Comment SEE COMMENT Normal [facility] Comment on above: Result Comment: N/A Performed By: #### I CA, CBCDIF, VITD, PTHI, CMP, URIC ####[facility] [address]CKatherine [place] [phone] Urine, clarity Cloudy Critically abnormal Clear [facility] Comment on above: Performed By: #### I CA, CBCDIF, VITD, PTHI, CMP, URIC ####[facility] AveClevelAndrew [place] [phone] Urine, color Yellow Normal Yellow [facility] Comment on above: Performed By: #### I CA, CBCDIF, VITD, PTHI, CMP, URIC ####[facility]CK[address] [place] [phone] Urine, epithelial cells in sediment SEE COMMENT Normal [facility] Comment on above: Result Comment: FewS quamous Epithelial Cells Performed By: #### I CA, CBCDIF, VITD, PTHI, CMP, URIC ####[place] [address] [address] [place] [phone] Urine, glucose presence Negative Normal Negative [facility] Comment on above: Performed By: #### I CA, CBCDIF, VITD, PTHI, CMP, URIC ####[facility] [place] [phone] Urine, ketones presence Negative Normal Negative [facility] Comment on above: Performed By: #### I CA, CBCDIF, VITD, PTHI, CMP, URIC ####[facility] [place] [phone] Urine, nitrite presence Negative Normal Negative [facility] Comment on above: Performed By: #### I CA, CBCDIF, VITD, PTHI, CMP, URIC ####[facility]ClevelAndrew [place] [phone] Urine, urobilinogen Normal Normal Normal [facility] Comment on above: Performed By: #### I CA, CBCDIF, VITD, PTHI, CMP, URIC ####[facility], [place] [phone] WBC (Leukocytes) 10*3/uL Critically abnormal 0-5 [facility] Comment on above: Performed By: #### I CA, CBCDIF, VITD, PTHI, CMP, URIC ####[facility] [place], [place] [phone] Urine Cultureon 10-21-2017 Urine culture, bacteria Sp. Request/Comment: - Specimen received in preservative Culture Result - No growth (<1,000 CFU/ml) Normal [facility] Comment on above: Performed By: #### I CA, CBCDIF, VITD, PTHI, CMP, URIC ####[facility] [place], [place] [phone] HISTORY PHYSICALon 8 HISTORY PHYSICAL HNO ID: [id number] thor: Tk (Res) NIK Abdallaervice: UrologyAuthor Type: ResidentType: HANDPFiled: 10/21/2017 2:31 PMNote Text:HANDP: UROLOGY SERVICENAME: Darrell CmdMRN: [id number]: [id number] DATE: 10/19/2017SERVICE TIME: 5:04 AMPRIMARY CARE PHYSICIAN: Abigail Sanchez, [facility]. Omar is a 67 year old male with [...] No acute issues#GI --Diet: regular-Colace, Zofran# --Scr: pending-Rios: draining clear derick urine-Obtain urine culture- Renal ultrasound- Will plan for stent removal at bedside#Activity - OOB to chair and Ambulate with assistance#DVT prophylaxis - SCDs#Antibiotics - Ancef 2g q8h for prophylaxisObtain CBC/BMPPlan discussed with Dr. Adarsh Abdalla III, MDUrology PGY-2Pager: [phone] 201710:00Overnight and on weekends please page [phone] OF PRESENT ILLNESSMrBraden Nelson is a 67 year old male [...] hgb was stable and urine was light pink/yellow.Rios was maintained after failing TOV and pt [...] breathing comfortably on room airGI: Soft, NDNTGU: rios draining clear derick urineExtremities: no cyanosis or clubbing, no edemaNeuro: Alert and orientedPsych: Normal affectImagingCT 09/07 OSH- 18mm and 14mm in R renal pelvis Normal [facility] Basic Metabolic Panlon 10-13 Anion gap 12 mmol/L Normal 9-18 [facility] Comment on above: Performed By: #### I CA, CBCDIF, VITD, PTHI, CMP, URIC ####[facility] [address] [place], [place] [phone] Calcium 8.2 mg/dL Low 8.5-10.2 [facility] Comment on above: Performed By: #### I CA, CBCDIF, VITD, PTHI, CMP, URIC ####[facility] [address] [place], [place] [phone] Chloride 103 mmol/L Normal 97-105 [facility] Comment on above: Performed By: #### I CA, CBCDIF, VITD, PTHI, CMP, URIC ####[facility] [address] [phone] CO2 25 mmol/L Normal 22-30 [facility] Comment on above: Performed By: #### I CA, CBCDIF, VITD, PTHI, CMP, URIC ####[place] [address] [address] [place] [phone] Creatinine 0.90 mg/dL Normal 0.73-1.22 [facility] Comment on above: Performed By: #### I CA, CBCDIF, VITD, PTHI, CMP, URIC ####[place] [address] [phone] eGFR (non-black) mL/min/{1.73_m2} Normal [facility] Comment on above: Performed By: #### I CA, CBCDIF, VITD, PTHI, CMP, URIC ####[place] [address] [phone] Result Comment: eGFR (Estimated GFR) Units of [...] Glucose mass conc 95 mg/dL Normal 74-99 [facility] Comment on above: Result Comment: The [place] [employer] (ADA) provides guidance for cutoff [...] Standards of Medical Care in Diabetes 2016, [place] [employer]. Diabetes Care. 2016.39(Suppl 1). Performed By: #### I CA, CBCDIF, VITD, PTHI, CMP, URIC ####[place] [phone] Potassium molar conc 3.9 mmol/L Normal 3.7-5.1 [facility] Comment on above: Performed By: #### I CA, CBCDIF, VITD, PTHI, CMP, URIC ####[place] [phone] Sodium 140 mmol/L Normal 136-144 [facility] Comment on above: Performed By: #### I CA, CBCDIF, VITD, PTHI, CMP, URIC ####[place] [phone] Urea nitrogen 7 mg/dL Low 9-24 [facility] Comment on above: Performed By: #### I CA, CBCDIF, VITD, PTHI, CMP, URIC ####[place] [phone] CBC and Differentialon 10-13 Abs Baso 0.03 k/uL Normal <0.11 [facility] Comment on above: Performed By: #### I CA, CBCDIF, VITD, PTHI, CMP, URIC ####[address] [place] [phone] Abs [place] 1.28 k/uL High <0.87 [facility] Comment on above: Performed By: #### I CA, CBCDIF, VITD, PTHI, CMP, URIC ####[place] [address] [address] [place] [phone] Abs Neut 8.97 k/uL High 1.45-7.50 [facility] Comment on above: Performed By: #### I CA, CBCDIF, VITD, PTHI, CMP, URIC ####[place] [address] [address] [place] [phone] Basophils/100 WBC Auto (Bld) 0.2 % Normal [facility] Comment on above: Performed By: #### I CA, CBCDIF, VITD, PTHI, CMP, URIC ####[place] [address] [address] [place] [phone] DTYPE Auto Diff Normal [facility] Comment on above: Performed By: #### I CA, CBCDIF, VITD, PTHI, CMP, URIC ####[place] [address] [address] [place] [phone] Eosinophils 0.20 10*3/uL Normal <0.46 [facility] Comment on above: Performed By: #### I CA, CBCDIF, VITD, PTHI, CMP, URIC ####[place] [address] [place] [phone] Eosinophils/100 leukocytes 1.6 % Normal [facility] Comment on above: Performed By: #### I CA, CBCDIF, VITD, PTHI, CMP, URIC ####[place] [address] [address] [place] [phone] Erythrocyte distribution width Auto Ratio (RBC) 12.4 % Normal 11.5-15.0 [facility] Comment on above: Performed By: #### I CA, CBCDIF, VITD, PTHI, CMP, URIC ####[place] [address] [address] [place] [phone] Erythrocytes (RBC) 4.29 10*6/uL Normal 4.20-6.00 [facility] Comment on above: Performed By: #### I CA, CBCDIF, VITD, PTHI, CMP, URIC ####[place] [address] [address] [place] [phone] Erythrocytes (RBC) 0.0 /100 WBC Normal 0 [facility] Comment on above: Performed By: #### I CA, CBCDIF, VITD, PTHI, CMP, URIC ####[place] [address] [address] [place] [phone] Erythrocytes (RBC) 10*6/uL Normal <0.01 [facility] Comment on above: Performed By: #### I CA, CBCDIF, VITD, PTHI, CMP, URIC ####[place] [address] [address] [place] [phone] Hematocrit (HCT) 38.8 % Low 39.0-51.0 [facility] Comment on above: Performed By: #### I CA, CBCDIF, VITD, PTHI, CMP, URIC ####[place] [address] [place] [phone] Hemoglobin mass conc (Bld) 12.7 g/dL Low 13.0-17.0 [facility] Comment on above: Performed By: #### I CA, CBCDIF, VITD, PTHI, CMP, URIC ####[place] [address] [address]CN[address] [place] [phone] Lymphocytes 2.16 10*3/uL Normal 1.00-4.00 [facility] Comment on above: Performed By: #### I CA, CBCDIF, VITD, PTHI, CMP, URIC ####[place] [address] [place] [phone] Lymphocytes/100 leukocytes 17.1 % Normal [facility] Comment on above: Performed By: #### I CA, CBCDIF, VITD, PTHI, CMP, URIC ####[place] [address] [place] [phone] MCH 29.6 pG Normal 26.0-34.0 [facility] Comment on above: Performed By: #### I CA, CBCDIF, VITD, PTHI, CMP, URIC ####[place] [address] [place] [phone] MCHC mass conc (RBC) 32.7 g/dL Normal 30.5-36.0 [facility] Comment on above: Performed By: #### I CA, CBCDIF, VITD, PTHI, CMP, URIC ####[address] [place] [phone] MCV 90.4 fL Normal 80.0-100.0 [facility] Comment on above: Performed By: #### I CA, CBCDIF, VITD, PTHI, CMP, URIC ####[place] [address] [place] [phone] Monocytes/100 leukocytes 10.1 % Normal [facility] Comment on above: Performed By: #### I CA, CBCDIF, VITD, PTHI, CMP, URIC ####[place] [address] [place] [phone] Neutrophils/100 WBC Auto (Bld) 71.0 % Normal [facility] Comment on above: Performed By: #### I CA, CBCDIF, VITD, PTHI, CMP, URIC ####[place] [address] [place] [phone] Platelet mean volume (PMV) 11.3 fL Normal 9.0-12.7 [facility] Comment on above: Performed By: #### I CA, CBCDIF, VITD, PTHI, CMP, URIC ####[address] [place] [phone] Platelets 138 10*3/uL Low 150-400 [facility] Comment on above: Result Comment: Resu lt checked and verifiedNo clot detected. Performed By: #### I CA, CBCDIF, VITD, PTHI, CMP, URIC ####[address] [phone] WBC (Leukocytes) 12.64 10*3/uL High 3.70-11.00 [facility] Comment on above: Performed By: #### I CA, CBCDIF, VITD, PTHI, CMP, URIC ####[address] [phone] CNDSon 10-13-2017 CNDS HNO ID: [id number] thor: Feliciano Santanaervice: UrologyAuthor Type: PhysicianType: Discharge SummariesFiled: 10/15/2017 3:53 PMNote Text:The [place] [phone] or [phone] [facility] N F I D E N T I A L I N F O R M A T I O N STANDARD [facility] DOCUMENTDISCHARGE SUMMARYPatient Name: Darrell Silverio Date: 10/11/2017Discharge Date: 10/13/2017Attending Physician: Feliciano SchroederPrincishanita Diagnosis:Patient Active Hospital Problem List: Calculus of [...] with instructions to return for followup in clinic.-Rios catheter was removed on POD#2 and the [...] hours for 3 days. Take 1000mg Tylenol ([id number] tablets) every 6 hours for 3 days. [...] Carlos Eduardo Dorantes, MDDirector, Surgical Stone Disease, [facility] Urologic InstituteProfessor of Surgery, [facility] School [facility] MedicinePager [phone]/15/2017 Normal [facility] PLAN OF CAREon 10-13-2017 PLAN OF CARE HNO ID: [id number] thor: Angelique Serrano (Can Vacuum Tester)Service: (none)Author Type: (none)Type: Plan of CareFiled: 10/13/2017 8:44 AMNote Text:APPLICATIONS ANALYST BEDSIDE DELIVERY SURVEY1. Patient to use [facility] Bedside Delivery - NO prefer ownpharmacy2. If fax, patient would like us to fax prescriptions to [facility] a. Pharmacy: b. Location: c. Phone:3. Insurance card on file - NO4. Credit card for payment - NO Normal [facility] PROGRESSon 10-13-2017 PROGRESS HNO ID: [id number] thor: Shelly (Production Engineer) O'NeillService: UrologyAuthor Type: Nurse PractitionerType: Progress NotesFiled: 10/13/2017 11:00 AMNote Text:UROLOGY SERVICE PROGRESS NOTEName: Darrell CmdBed: G090 013/K479-66WYC: [id number]: October 13, 2017ASSESSMENT AND PLANDarrell Nelson is a 67 year old male with history of HTN, nephrolithiasisnow POD#2 s/p PCNL and R JJ stent placement.#Neuro-Pain controlled on Tylenol#CV/Zojx-VYR-Seh stable-Continue incentive spirometer use#GI-Diet - GI Soft/regular diet; tolerating without N/V#-Scr 0.90-UOP good-Rios: removed- voiding without difficulty#FEN-IVF NS @ 125 ml/hr#Activity - OOB to chair and Ambulate with assistance#DVT prophylaxis - SCDs, Pharmacologic DVT prophylaxis contraindicated dueto bleeding risk#Antibiotics - Perioperative antibiotics - Ancef#Secondary Dx and ComplicationsHTN- c/w home medications[facility]#Discharge teaching - routine teaching#Disposition - Discharge home todaySUBJECTIVE-Pain:controlled -CP/SOB: Denies-N/V:Denies-Bowel function:+Flatus. No BM-Ambulating: YesBrief HPI: No acute events throughout the night. Denies fever, chills.Voiding without difficulty. Doing well. Eager for discharge home.OBJECTIVEVital SignsBP 154/79 Pulse 89 Temp 36.9 ?C (98.4 ?F) (Oral) Resp 20 Ht 175.3cm (5' 9 ) Wt 80 kg (176 lb 5.9 oz) SpO2 96% BMI 26.05 kg/m8Egviv and OutputIntake/Output Summary (Last 24 hours) at 10/13/17 1047Last data filed at 10/13/17 1040 Gross per 24 hourIntake 3782 mlOutput 3250 mlNet 532 mlDrains:noneUrine: 3450ccPhysical ExamGeneral: Well appearing male, lying in bed in NADHEENT: Normocephalic, atraumaticCV:: RR, hemodynamically stable, well-perfusedResp: breathing comfortably on RA. CTAB.GI: Soft, non-tender, non-distended.: voiding spontaneouslyExtremities: No cyanosis or clubbing, No edemaNeuro: Alert and orientedPsych: Normal affectRecent Labs 0 10/11/1815WBC 12.64* 14.41* 16.46*HB 12.7* 11.9* 13.7HCT 38.8* [...] mL ORAL q 6 H PRNphenol 1 Burley (CHLORASEPTIC) 1 Burley MUCOUS MEMBRANE (TOPICAL MOUTH ANDTHROAT) q 2 H PRNsimethicone, chewable 80 mg tab(s) (MYLICON) 80 mg ORAL q 8 H PRNoxybutynin 5 mg tab(s) (DITROPAN) 5 mg ORAL q 8 H PRNoxyCODONE IR 5-10 mg tab(s) (ROXICODONE) 5-10 mg ORAL q 4 H PRNNo past medical history on file.[facility]XR 10/11/17IMPRESSION:NO ACUTE DISEASESIGNATURE: Shelly Cote CNP PAGER: [phone]: October 13, 2017TIME: 9:45amPlease page [phone] on weekends and after 4pm on weekdays [facility] PROGRESS HNO ID: [id number] thor: Miguel (Res) BrykService: UrologyAuthor Type: ResidentType: Progress NotesFiled: 10/13/2017 6:47 AMNote Text:UROLOGY RESIDENT PROGRESS NOTEName: Darrell Handley BoydBed: G090 013/Y919-30NXT: [id number]: October 13, 2017 =====SUBJECTIVE- no acute events overnight-Pain: controlled-N/V : No- Tolerated diet, ambulating, +ROBF ======OBJECTIVEVital SignsPatient Vitals for the past 8 hrs: BP Temp Temp src Pulse Resp SmP27910/13/17 0300 144/71 36.7 ?C (98 ?F) Oral [...] Soft, nontender, nondistended. No rebound or guarding.: Rios catheter present; urine light pink/yellow. No CVATWound: [...] mL ORAL q 6 H PRNphenol 1 Burley (CHLORASEPTIC) 1 Burley MUCOUS MEMBRANE (TOPICAL MOUTH ANDTHROAT) q 2 H PRNsimethicone, chewable 80 mg tab(s) (MYLICON) 80 mg ORAL q 8 H PRNoxybutynin 5 mg tab(s) (DITROPAN) 5 mg ORAL q 8 H PRNoxyCODONE IR 5-10 mg tab(s) (ROXICODONE) 5-10 mg ORAL q 4 H PRN =====ASSESSMENT AND PLANMarvin Emmanuelle Nelson is a 67 [...] Jess reg diet-Colace, Zofran# --Scr: 0.9, stable-UOP: excellent-Rios: in place, will remove and trial of void- Cont flomax#Activity - OOB to chair and Ambulate with assistance#DVT prophylaxis - SCDs, Pharmacologic DVT prophylaxis contraindicated dueto bleeding risk#Antibiotics - Perioperative antibiotics - ancef#ComplicationsNone#Seconda ry Dx-HTN- home losartanHome urocit-K held#Discharge teaching - may need home going rios care teaching#Disposition - d/c todayThe patient's progress, lab findings, vitals, and clinical decision makingas documented above to be discussed with staff Dr. Schroeder. ========Miguel Zapata M.D.Urology PGY-2Pager: [phone] 20176:47 AMOvernight and on weekends please page [phone] Normal [facility] APTTon 10-12-2017 aPTT 27.4 s Normal 23.0-32.4 [facility] Comment on above: Result Comment: Unfr [...] laboratory APTT reagent in use throughout the [facility]. Performed By: #### P T, PTT, MG1 ####[place] [address] [address] [place], [place] [phone] Basic Metabolic Panlon 10-12 Anion gap 8 mmol/L Low 9-18 [facility] Comment on above: Performed By: #### C BCDIF, BMP ####[address] [phone] Calcium 8.2 mg/dL Low 8.5-10.2 [facility] Comment on above: Performed By: #### C BCDIF, BMP ####[place] [phone] Chloride 103 mmol/L Normal 97-105 [facility] Comment on above: Performed By: #### C BCDIF, BMP ####[place] [phone] CO2 31 mmol/L High 22-30 [facility] Comment on above: Performed By: #### C BCDIF, BMP ####[place] [address] [place] [phone] Creatinine 1.00 mg/dL Normal 0.73-1.22 [facility] Comment on above: Performed By: #### C BCDIF, BMP ####[place] [address] [place] [phone] eGFR (non-black) mL/min/{1.73_m2} Normal [facility] Comment on above: Performed By: #### C BCDIF, BMP ####[place] [address] [place] [phone] Result Comment: eGFR (Estimated GFR) Units of [...] Glucose mass conc 100 mg/dL High 74-99 [facility] Comment on above: Result Comment: The [place] Diabetes Association (ADA) provides guidance for cutoff [...] Standards of Medical Care in Diabetes 2016, [place] Diabetes Association. Diabetes Care. 2016.39(Suppl 1). Performed By: #### C CHARLENE CONDON ####[facility] [address] [place], [place] [phone] Potassium molar conc 4.0 mmol/L Normal 3.7-5.1 [facility] Comment on above: Performed By: #### C ROSEANNA BMP ####[facility] [address] [place], [place] [phone] Sodium 142 mmol/L Normal 136-144 [facility] Comment on above: Performed By: #### C CHARLENE CONDON ####[facility] [address] [place], [place] [phone] Urea nitrogen 9 mg/dL Normal 9-24 [facility] Comment on above: Performed By: #### C ROSEANNA BMP ####[facility] [place], [place] [phone] CASE MGT INIT Daphnie 2017 CASE MGT INIT MING HNO ID: [id number]: Brigette (Rn) Micha, EMILIANOervice: Care ManagementAuthor Type: Registered NurseType: Care Mgt Initial AssessmentFiled: 10/12/2017 4:00 PMNote Text:CARE MANAGEMENT: ASSESSMENT AND DISCHARGE PLANSERVICE DATE: 10/12/2017SERVICE TIME: 3:57 PMPRIMARY CARE PHYSICIAN:Abigail Sanchez, MDPhone: EDJZIGHRE STATUS: Ambulatory SurgeryPOTENTIAL DISCHARGE PLANSNo Services 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 NoHas the Patient Been in a Penitentiary Facility in the Past 30 days? NoFREEDOM OF CHOICE EXPLAINED:N/RADHA COMMUNICATION:n/aAdm post op after pcnl. Spoke w/ pt at bedside. No skilled dc needsidentified, was independent prior to adm. Chief complaint is of his rios.Please contact rn critical care if needs arise prior to dc.SIGNATURE: Brigette Muse RN PATIENT NAME: Darrell ElizaldeATE: October 12, 2017 : 3:57 PM PAGER/CONTACT #: [phone] Normal [facility] CBC and Differentialon 10-12 Abs Baso 0.03 k/uL Normal <0.11 [facility] Comment on above: Performed By: #### C ROSEANNA BMP ####[facility] [place], [place] [phone] Abs Antrim 1.45 k/uL High <0.87 [facility] Comment on above: Performed By: #### C ROSEANNA BMP ####[facility] [address] [place], [place] [phone] Abs Neut 9.96 k/uL High 1.45-7.50 [facility] Comment on above: Performed By: #### C ROSEANNA BMP ####[facility] [address] [place], [place] [phone] Basophils/100 WBC Auto (Bld) 0.2 % Normal [facility] Comment on above: Performed By: #### C BCMARIELA, BMP ####[facility] AveClevelThomas [place] [phone] DTYPE Auto Diff Normal [facility] Comment on above: Performed By: #### C BCDIF, BMP ####[facility] AveClevelandLisa [place] [phone] Eosinophils 0.06 10*3/uL Normal <0.46 [facility] Comment on above: Performed By: #### C BCDIF, BMP ####[place] [address] AveCKatherine [place] [phone] Eosinophils/100 leukocytes 0.4 % Normal [facility] Comment on above: Performed By: #### C BCDIF, BMP ####[place] [address] AveCK[address] [place] [phone] Erythrocyte distribution width Auto Ratio (RBC) 12.6 % Normal 11.5-15.0 [facility] Comment on above: Performed By: #### C BCDIF, BMP ####[place] [address] AveCKatherine [place] [phone] Erythrocytes (RBC) 0.0 /100 WBC Normal 0 [facility] Comment on above: Performed By: #### C BCDIF, BMP ####[place] [address] AveClevelThomas [place] [phone] Erythrocytes (RBC) 3.97 10*6/uL Low 4.20-6.00 [facility] Comment on above: Performed By: #### C BCDIF, BMP ####[place] [address] AveClevelThomas [place] [phone] Erythrocytes (RBC) 10*6/uL Normal <0.01 [facility] Comment on above: Performed By: #### C BCDIF, BMP ####[place] [address] AveClevelThomas [place] [phone] Hematocrit (HCT) 35.9 % Low 39.0-51.0 [facility] Comment on above: Performed By: #### C BCDIF, BMP ####[place] [address]CK[address] [place] [phone] Hemoglobin mass conc (Bld) 11.9 g/dL Low 13.0-17.0 [facility] Comment on above: Performed By: #### C BCDIF, BMP ####[address] [phone] Lymphocytes 2.91 10*3/uL Normal 1.00-4.00 [facility] Comment on above: Performed By: #### C BCDIF, BMP ####[address] [place] [phone] Lymphocytes/100 leukocytes 20.2 % Normal [facility] Comment on above: Performed By: #### C BCDIF, BMP ####[address] [phone] MCH 30.0 pG Normal 26.0-34.0 [facility] Comment on above: Performed By: #### C BCDIF, BMP ####[address] [place] [phone] MCHC mass conc (RBC) 33.1 g/dL Normal 30.5-36.0 [facility] Comment on above: Performed By: #### C BCDIF, BMP ####[place] [address] [place] [phone] MCV 90.4 fL Normal 80.0-100.0 [facility] Comment on above: Performed By: #### C BCDIF, BMP ####[address]atherine [address] [phone] Monocytes/100 leukocytes 10.1 % Normal [facility] Comment on above: Performed By: #### C BCDIF, BMP ####[place] [address] [place], [place] [phone] Neutrophils/100 WBC Auto (Bld) 69.1 % Normal [facility] Comment on above: Performed By: #### C ROSEANNA, BMP ####[facility] [place], [place] [phone] Platelet mean volume (PMV) 11.2 fL Normal 9.0-12.7 [facility] Comment on above: Performed By: #### C KRISTINAF, BMP ####[place] [address] [place], [place] [phone] Platelets 124 10*3/uL Low 150-400 [facility] Comment on above: Result Comment: Resu lt checked and verifiedNo clot detected. Performed By: #### C ROSEANNA, BMP ####[address] [phone] WBC (Leukocytes) 14.41 10*3/uL High 3.70-11.00 [facility] Comment on above: Performed By: #### C ROSEANNA, BMP ####[place] [address] [place], [place] [phone] Magnesiumon 10-12-2017 Magnesium 1.7 mg/dL Normal 1.7-2.3 [facility] Comment on above: Performed By: #### P T, PTT, MG1 ####[facility] [place], [place] [phone] PROGRESSon 10-12-2017 PROGRESS HNO ID: [id number] thor: Feliciano Santanaervice: (none)Author Type: PhysicianType: Progress NotesFiled: 10/12/2017 1:40 PMNote Text:STAFF UROLOGY NOTE:Patient's Hb dropped nearly 2 grams post-op and his urine was too bloodythis morning for voiding trial or discharge. Will plan to keep in houseanother day.Feliciano Schroeder, MDDirector, Surgical Stone Disease, [facility] Urologic InstituteProfessor of SurgeryProMedica Defiance Regional HospitalPager [phone]/12/2017 Normal [place] [facility] PROGRESS HNO ID: [id number] thor: Shelly Cabrera) O'NeillService: UrologyAuthor Type: Nurse PractitionerType: Progress NotesFiled: 10/12/2017 1:31 PMNote Text:UROLOGY SERVICE PROGRESS NOTEName: Darrell CmdBed: G090 013/P208-19MOG: [id number]: October 12, 2017ASSESSMENT AND PLANMarvin Emmanuelle Nelson is a 67 year old male with history of HTN, nephrolithiasisnow POD#1 s/p PCNL and R JJ stent placement.#Neuro-Pain controlled on Tylenol#CV/Nwgk-BRM-Ntj stable#GI-Diet - GI Soft/regular diet; tolerating without N/V+Flatus. No BM.#-Scr 1.00-UOP good-Rios: draining collect on delivery clerk red urine#FEN-IVF NS @ 125 ml/hr#Activity - [...] lb 5.9 oz) SpO2 95% BMI 26.05 kg/v2Oedwj and OutputIntake/Output Summary (Last 24 hours) at 10/12/17 1302Last data filed at 10/12/17 1000 Gross per 24 hourIntake 4023 mlOutput 1975 mlNet 2048 mlDrains:NoneUrine: 1625ccPhysical ExamGeneral: Well appearing male in NADHEENT: Normocephalic, atraumaticCV:: RRR, hemodynamically stable, well-perfusedResp: breathing comfortably on RA.GI: Soft, nontender, nondistended.: Rios catheter draining collect on delivery clerk red urineExtremities: No cyanosis or clubbing, No edemaNeuro: Alert and orientedPsych: Normal affectRecent Labs 229 WBC 14.41* 16.46*HB 11.9* 13.7HCT [...] mL ORAL q 6 H PRNphenol 1 Burley (CHLORASEPTIC) 1 Burley MUCOUS MEMBRANE (TOPICAL MOUTH ANDTHROAT) q 2 H PRNsimethicone, chewable 80 mg tab(s) (MYLICON) 80 mg ORAL q 8 H PRNoxybutynin 5 mg tab(s) (DITROPAN) 5 mg ORAL q 8 H PRNoxyCODONE IR 5-10 mg tab(s) (ROXICODONE) 5-10 mg ORAL q 4 H PRNNo past medical history on file.ImagingCXR 10/11/17IMPRESSION:NO ACUTE DISEASESIGNATURE: Shelly Cote CNP PAGER: [phone]: October 12, 2017TIME: 11:15amPlease page [phone] on weekends and after 4pm on weekdays Normal [facility] PROGRESS HNO ID: [id number] thor: Miguel (Res) BrykService: UrologyAuthor Type: ResidentType: Progress NotesFiled: 10/12/2017 6:47 AMNote Text:UROLOGY RESIDENT PROGRESS NOTEName: Darrell CmdBed: G090 013/W093-98QYR: [id number]: October 12, 2017 =====SUBJECTIVE- no acute events overnight-Pain: controlled-N/V : No- Tolerated clears, eager for food =====OBJECTIVEVital SignsPatient Vitals for the past 8 hrs: BP Temp Temp src Pulse Resp SpO2 Height Ynvcde12/10/18 1922 148/81 36.7 ?C (98.1 ?F) Oral [...] Soft, nontender, nondistended. No rebound or guarding.: Rios catheter present; urine red. No CVATWound: Dressing [...] mL ORAL q 6 H PRNphenol 1 Burley (CHLORASEPTIC) 1 Burley MUCOUS MEMBRANE (TOPICAL MOUTH ANDTHROAT) q 2 [...] diet this AM-Colace, Zofran# --Scr: 1, stable-UOP: adequate-Rios: in place- Cont flomax#Activity - OOB to chair and Ambulate with assistance#DVT prophylaxis - SCDs, Pharmacologic DVT prophylaxis contraindicated dueto bleeding risk#Antibiotics - Perioperative antibiotics - ancef#ComplicationsNone#Seconda ry Dx-HTN- home losartanHome urocit-K held#Discharge teaching - may need home going rios care teaching#Disposition - pending course, anticipate tomorrowThe patient's progress, lab findings, vitals, and clinical decision makingas documented above to be discussed with staff Dr. Schroeder. ========Miguel Zapata M.D.Urology PGY-2Pager: [phone] 2017Overnight and on weekends please page [phone] Normal [facility] Protimeon 10-12-2017 INR Coag RelTime (Bld) 1.0 {INR} Normal 0.9-1.3 [facility] Comment on above: Result Comment: Laisha min K Antagonist (VKA) Therapeutic Range: INR 2 to 3 (Target INR of 2.5)Note: For patients treated with VKA drugs, such as warfarin, the [place] [employer] 2012 Guideline recommends [...] al. Chest 2012, 141:7S-47SNishimura RA, et al. JAC 2017, 70: 252-289 Performed By: #### P T, PTT, MG1 ####[facility] [address] [place], [place] [phone] PT Sec 10.8 sec Normal 9.7-13.0 [facility] Comment on above: Performed By: #### P T, PTT, MG1 ####[facility] [address] [place], [place] [phone] ANES Woody 10-11-2017 ANES POST HNO ID: [id number] thor: Teresita RosadoSermarlenye: AnesthesiologyAuthor Type: PhysicianType: Anesthesia PostOpFiled: 10/11/2017 4:08 [...] 11, 2017 : 4:07 PM PAGER/CONTACT #: [phone] [facility] BRIEF OP NOTon 10-11-2017 BRIEF OP NOT HNO ID: [id number] thor: Miguel (Sudeep) IkekService: UrologyAuthor Type: ResidentType: Brief Op NoteFiled: 10/11/2017 3:17 PMNote Text:UROLOGY BRIEF OPERATIVE NOTELOG ID: [id number]/Procedure Date: 10/11/2017Incision/Procedure Start Time: 1:38 PMIncision Close/Procedure [...] 30 FrenchTract Dilation Device: BalloonSurgeon(s)/Proceduralist (s) and Purse Framer(s):Surgeon(s) and Role: * Feliciano Schroeder - Primary * Miguel Fritz) Benny - Resident - Assisting * Damon Cintron) Katerine - FellowNo Additional StaffAnesthesia: GeneralFLUIDSIntake: 1200ccUrine Output: n/a, irrigationEstimated Blood Loss: 50 mlsAccidental punctures or Lacerations: noneComplications: NoneDrains: Rios, 20fr coude tipImplants: [id number] JJ ureteral stentCultures: NoneFindings: Soft stones in R Renal pelvis and R lower pole (>3cm). Lowerpole access. Stone free at end of the case.Specimens:Specimen ID Type Site Comments Sent Toother Stone stones sent to PACU with patient OtherPost-Op Plan of Care:To RNFSIGNATURE: Miguel Zapata MD PATIENT NAME: Darrell ElizaldeATE: October 11, 2017 : 3:11 PM PAGER/CONTACT #: [phone] after hours issues, please call the on-call urology pager [phone] Normal [facility] CBC and Differentialon 10-11 Abs Baso 0.03 k/uL Normal <0.11 [facility] Comment on above: Performed By: #### C BCDIF ####[facility], [place] [phone] Abs Antrim 1.18 k/uL High <0.87 [facility] Comment on above: Performed By: #### C BCDIF ####[place] [address], [place] [phone] Abs Neut 12.38 k/uL High 1.45-7.50 [facility] Comment on above: Performed By: #### C BCDIF ####[place] [address], [place] [phone] Basophils/100 WBC Auto (Bld) 0.2 % Normal [facility] Comment on above: Performed By: #### C BCDIF ####[place] [address], [place] [phone] DTYPE Auto Diff Normal [facility] Comment on above: Performed By: #### C BCDIF ####[place] [address], [place] [phone] Eosinophils 0.06 10*3/uL Normal <0.46 [facility] Comment on above: Performed By: #### C BCDIF ####[place] [address], [place] [phone] Eosinophils/100 leukocytes 0.4 % Normal [facility] Comment on above: Performed By: #### C BCDIF ####[place] [address], [place] [phone] Erythrocyte distribution width Auto Ratio (RBC) 12.4 % Normal 11.5-15.0 [facility] Comment on above: Performed By: #### C BCDIF ####[place] [address], [place] [phone] Erythrocytes (RBC) 0.0 /100 WBC Normal 0 [facility] Comment on above: Performed By: #### C BCDIF ####[place] [address], [place] [phone] Erythrocytes (RBC) 10*6/uL Normal <0.01 [facility] Comment on above: Performed By: #### C BCDIF ####[place] [address], [place] [phone] Erythrocytes (RBC) 4.42 10*6/uL Normal 4.20-6.00 [facility] Comment on above: Performed By: #### C BCDIF ####[place] [address]CK[address] [place] [phone] Hematocrit (HCT) 39.7 % Normal 39.0-51.0 [facility] Comment on above: Performed By: #### C BCDIF ####[address] [place] [phone] Hemoglobin mass conc (Bld) 13.7 g/dL Normal 13.0-17.0 [facility] Comment on above: Performed By: #### C BCDIF ####[place] [address] [phone] Lymphocytes 2.81 10*3/uL Normal 1.00-4.00 [facility] Comment on above: Performed By: #### C BCDIF ####[place] [address] [place] [phone] Lymphocytes/100 leukocytes 17.1 % Normal [facility] Comment on above: Performed By: #### C BCDIF ####[place] [address] [place] [phone] MCH 31.0 pG Normal 26.0-34.0 [facility] Comment on above: Performed By: #### C BCDIF ####[place] [address], [place] [phone] MCHC mass conc (RBC) 34.5 g/dL Normal 30.5-36.0 [facility] Comment on above: Performed By: #### C BCDIF ####[place] [address], [place] [phone] MCV 89.8 fL Normal 80.0-100.0 [facility] Comment on above: Performed By: #### C BCDIF ####[place] [address], [place] [phone] Monocytes/100 leukocytes 7.2 % Normal [facility] Comment on above: Performed By: #### C BCDIF ####[place] [address], [place] [phone] Neutrophils/100 WBC Auto (Bld) 75.1 % Normal [facility] Comment on above: Performed By: #### C BCDIF ####[place] [address], [place] [phone] Platelet mean volume (PMV) 11.3 fL Normal 9.0-12.7 [facility] Comment on above: Performed By: #### C BCDIF ####[place] [address], [place] [phone] Platelets 147 10*3/uL Low 150-400 [facility] Comment on above: Performed By: #### C BCDIF ####[place] [address], [place] [phone] WBC (Leukocytes) 16.46 10*3/uL High 3.70-11.00 [facility] Comment on above: Performed By: #### C BCDIF ####[place] [address], [place] [phone] Calculi Analysison 8 Calculus Type stone Normal [facility] Comment on above: Performed By: #### I CA, CBCDIF, VITD, PTHI, CMP, URIC ####[place] [address]CE[address], [place] [phone] Note (NOTE) Normal [facility] Comment on above: Result Comment: Calc ulus Color: OFF WHITECalculus Size & Weight: MULTIPLE PIECES, 0.5788 GRAMSComposition: CALCIUM PHOSPHATE - 60% CALCIUM OXALATE MONOHYDRATE - 30% MINOR COMPONENTS - 10%This test was developed and its performance characteristicsdetermined by the [facility] Pathology andLabchildren[facility] [place] [place] ([facility]).It has not been cleared or approved by the FDA.[facility] is regulated under CLIA as qualified to performhigh-complexity testing.This test is used for clinical purposes. It should not be regarded asinvestigational or for research. Performed By: #### I CA, CBCDIF, VITD, PTHI, CMP, URIC ####[facility] [address] [place], [place] [phone] NURSING PROGon 10-11-2017 NURSING PROG HNO ID: [id number] thor: Melita TenorioRn) EMILIANO Loyaervice: (none)Author Type: Registered NurseType: Nursing Progress NoteFiled: 10/11/2017 8:01 PMNote Text:Admission/Transfer NotePATIENT NAME: Darrell DennisRN: [id number] admitted from PACU via stretcher in stable condition.Actions taken: Patient oriented to room, call light function, prescribedactivities, Patient rights and Quiet at night.This note was completed by: Melita Loya RN Normal [facility] NURSING PROG HNO ID: [id number] thor: EMILIANO So Rnervice: NursingAuthor Type: Registered NurseType: Nursing Progress NoteFiled: 10/11/2017 10:50 AMNote Text:PRE OP LEARNING ASSESSMENTPROCEDURE/SURGERY: SURGERY: PreopREADINESS TO LEARN: InterestedCOGNITIVE ABILITY: Alert and orientedMOTIVATION TO LEARN: EagerFAMILY SUPPORT: High - Very involved in pt carePATIENT LEARNS BEST BY: Multiple MethodsFACTORS AFFECTING LEARNING: NonePHYSICAL LIMITATIONS AFFECTING LEARNING: NoneElectronically Signed By: May Moffett RN In Department: HOSPMAIN M023 Normal [facility] OPERATIVE NOon 10-11-2017 OPERATIVE NO HNO ID: [id number] thor: Feliciano Santanaervice: UrologyAuthor Type: PhysicianType: Operative ReportFiled: 10/12/2017 9:11 AMNote Text:OPERATIVE/PROCEDURE REPORTLOG ID: [id number]/Procedure Date: 10/11/2017Incision/Procedure Start Time: 1:38 PMIncision Close/Procedure End Time: 3:13 PMSurgeon(s)/Proceduralist(s) and Purse Framer(s):Surgeon(s) and Role: * Feliciano Schroeder - Primary * Miguel (Res) Benny - Resident - Assisting * Damon [...] and draped in the standard sterile fashion.First network engineer administrator images were obtained noting two opacities in [...] as well. A 14 Fr coude tip rios was insertedinto the bladder after a straight [...] pulled out through theurethral meatus to gain vqibyji-gzz-xcrmbfu access.A glide catheter was used to exchange the lsdpjkl-uts-oifzjfu guidewirefor an Amplatz superstiff wire. The ureteroscope was re-inserted to theaccessed calyx. An 8/10 Fr dilator was then used to gently dilate thetract. The tract was incised at the skin for 10 mm. The [employer] X-Forceballoon was advanced over the wire and [...] burden remaining. The ureteral access sheath and rios were thenremoved and a 7Fr x 28cm double-J stent was placed over the Amplatz safetywire and had good curls in both the kidney and the bladder. A 20Fr coudetip Rios catheter was placed. A glide catheter was [...] 28cm JJ ureteral stentDrains:20 Fr. Coude tip Rios catheterComplications: NoneQualifier: NoneThe primary surgeon/proceduralist performed the entire procedure withassistance from Dr. Garcias and Dr. Zapata.Miguel Zapata M.D.Urology PGY-2Pager: [phone] 20174:[phone] PMOvernight and on weekends please page [phone] Alexandre MDDirector, Surgical Stone Disease, [facility] Urologic [place]burgProfessor of Surgery, [facility] of MedicinePager [phone] [facility] PROGRESSon 10-11-2017 PROGRESS HNO ID: [id number] thor: Tyler (Res) Rick Meridarvice: Pediatric UrologyAuthor [...] mL ORAL q 6 H PRNphenol 1 Burley (CHLORASEPTIC) 1 Burley MUCOUS MEMBRANE (TOPICAL MOUTH ANDTHROAT) q 2 [...] lb 5.9 oz) SpO2 99% BMI 26.05 kg/q5NYDCOZRW EXAM:GENERAL: no distressNEURO: BDTIAq8CKLTP: breathing comfortably on 2LCARDIAC: warm and well perfused throughoutABDOMEN: soft, mild distended, non tender.WOUND: CDIGU: Rios catheter present, red urine no clotsLABSCBC, Coags, BMP, Mg, PhosRecent Labs [id number] 16.46*HB 13.7HCT 39.7PLT 147*A/P:Darrell Nelson is a [...] routine teachingDischarge planning - pendingTyler Ramos [place].Pg [phone] Normal [facility] PT EDon 10-11-2017 PT ED HNO ID: [id number] thor: Ccf ProviderService: (none)Author Type: PhysicianType: Patient EducationFiled: 10/11/2017 7:15 PMNote Text:[facility] Health SystemPatient Education Report Name: DARRELL NELSON Date: 10/11/2017 Time: 7:15 PMPatient Ordered Video: Inpatient Fallsfrom [id number] via phone number [phone] at 7:15 PM Normal [facility] XR CHEST 1V FRONTAL PORTon 0 [...] hardware from lower cervical fusion.IMPRESSION:NO ACUTE DISEASETranscriptionist: TAYLER Transcribe Date/Time: Oct 11 2017 4:13PDictated by : TULIO ORDOÑEZ MDThidarrian examination was interpreted and the report reviewed and electronically signed by: TULIO ORDOÑEZ MD on Oct 11 2017 4:13PM [id number] Normal [facility] CNCOon 10-05-2017 CNCO Letter Text/12/2017M teresa Cmd[address] [id number] Mr. Nelson:Your recent 24 hour urine test [...] for future kidney stones. You may contact [facility] [phone] with any questions or concerns.Sincerely,Feliciano Schroeder M.D.ELECTRONICALLY SIGNED Normal [facility] CBC and Differentialon 09-12 Abs Baso 0.04 k/uL Normal <0.11 [facility] Comment on above: Performed By: #### I CA, CBCDIF, VITD, PTHI, CMP, URIC ####[facility] [address] [place], [place] [phone] Abs [place] 1.26 k/uL High <0.87 [facility] Comment on above: Performed By: #### I CA, CBCDIF, VITD, PTHI, CMP, URIC ####[place] [address] [place] [phone] Abs Neut 6.39 k/uL Normal 1.45-7.50 [facility] Comment on above: Performed By: #### I CA, CBCDIF, VITD, PTHI, CMP, URIC ####[place] [address] [place] [phone] Basophils/100 WBC Auto (Bld) 0.3 % Normal [facility] Comment on above: Performed By: #### I CA, CBCDIF, VITD, PTHI, CMP, URIC ####[address] [place] [phone] DTYPE Auto Diff Normal [facility] Comment on above: Performed By: #### I CA, CBCDIF, VITD, PTHI, CMP, URIC ####[place] [address] [phone] Eosinophils 0.10 10*3/uL Normal <0.46 [facility] Comment on above: Performed By: #### I CA, CBCDIF, VITD, PTHI, CMP, URIC ####[place] [address] [place] [phone] Eosinophils/100 leukocytes 0.9 % Normal [facility] Comment on above: Performed By: #### I CA, CBCDIF, VITD, PTHI, CMP, URIC ####[place] [address] [place] [phone] Erythrocyte distribution width Auto Ratio (RBC) 12.9 % Normal 11.5-15.0 [facility] Comment on above: Performed By: #### I CA, CBCDIF, VITD, PTHI, CMP, URIC ####[place] [address] [place] [phone] Erythrocytes (RBC) 0.0 /100 WBC Normal 0 [facility] Comment on above: Performed By: #### I CA, CBCDIF, VITD, PTHI, CMP, URIC ####[place] [address] [place] [phone] Erythrocytes (RBC) 4.74 10*6/uL Normal 4.20-6.00 [facility] Comment on above: Performed By: #### I CA, CBCDIF, VITD, PTHI, CMP, URIC ####[place] [address] [place] [phone] Erythrocytes (RBC) 10*6/uL Normal <0.01 [facility] Comment on above: Performed By: #### I CA, CBCDIF, VITD, PTHI, CMP, URIC ####[place] [address] [place] [phone] Hematocrit (HCT) 43.7 % Normal 39.0-51.0 [facility] Comment on above: Performed By: #### I CA, CBCDIF, VITD, PTHI, CMP, URIC ####[place] [address] [place] [phone] Hemoglobin mass conc (Bld) 14.2 g/dL Normal 13.0-17.0 [facility] Comment on above: Performed By: #### I CA, CBCDIF, VITD, PTHI, CMP, URIC ####[place] [address] [place] [phone] Lymphocytes 3.64 10*3/uL Normal 1.00-4.00 [facility] Comment on above: Performed By: #### I CA, CBCDIF, VITD, PTHI, CMP, URIC ####[place] [address] [place] [phone] Lymphocytes/100 leukocytes 31.8 % Normal [facility] Comment on above: Performed By: #### I CA, CBCDIF, VITD, PTHI, CMP, URIC ####[place] [address] [place] [phone] MCH 30.0 pG Normal 26.0-34.0 [facility] Comment on above: Performed By: #### I CA, CBCDIF, VITD, PTHI, CMP, URIC ####[place] [address] [place] [phone] MCHC mass conc (RBC) 32.5 g/dL Normal 30.5-36.0 [facility] Comment on above: Performed By: #### I CA, CBCDIF, VITD, PTHI, CMP, URIC ####[place] [address] [place] [phone] MCV 92.2 fL Normal 80.0-100.0 [facility] Comment on above: Performed By: #### I CA, CBCDIF, VITD, PTHI, CMP, URIC ####[place] [address] [place] [phone] Monocytes/100 leukocytes 11.0 % Normal [facility] Comment on above: Performed By: #### I CA, CBCDIF, VITD, PTHI, CMP, URIC ####[place] [address] [place] [phone] Neutrophils/100 WBC Auto (Bld) 56.0 % Normal [facility] Comment on above: Performed By: #### I CA, CBCDIF, VITD, PTHI, CMP, URIC ####[address] [place] [phone] Platelet mean volume (PMV) 11.2 fL Normal 9.0-12.7 [facility] Comment on above: Performed By: #### I CA, CBCDIF, VITD, PTHI, CMP, URIC ####[place] [address] [place], [place] [phone] Platelets 206 10*3/uL Normal 150-400 [facility] Comment on above: Performed By: #### I CA, CBCDIF, VITD, PTHI, CMP, URIC ####[facility] [address] [place], [place] [phone] WBC (Leukocytes) 11.43 10*3/uL High 3.70-11.00 [facility] Comment on above: Performed By: #### I CA, CBCDIF, VITD, PTHI, CMP, URIC ####[facility] [address] [place], [place] [phone] CNOVon 09-12-2017 CNOV Office Visit (UROLMN) DARRELL NELSON ([id number]) 1950 [facility] Time Provider Zadxpektyh79/12/17 10:30 AM FELICIANO SCHROEDER During your visit today, we recorded the following information about you: Pulse Blood pressure Weight Height 82/minute 169/91 79.4 kg 1.778 Marielena Schroeder MD 09/12/2017 7:38 PM SignedBasic HPI: 67 year old male who comes in for kidney stone management. Patienthas a history of kidney stones for over 20 years. Patient has had ESWL in theazst. Last ESWL 1.5 years ago. Patient has [...] Urine Negative NegativeKetones, Urine Negative 1+ (A)Specific [place], Ur 1.005 - 1.030 1.016Hemoglobin/Blood,Ur Negative 2+ [...] RN and ancillary personnel.Consultation requested by Dr. Calhoun for an opinion regarding large stone burdenright [...] a JJ stent (placedlast week by Dr. Calhoun). Not much discomfort from the stent at [...] with more than 50% of the total lnag-ok-eaab time ofthe visit devoted to patient counseling/coordination of care.Feliciano Schroeder, MDDirector, Surgical Stone Disease, [facility] Urologic InstituteProfessor of Surgery, [facility] MedicinePager [phone]/12/2017Bonita Ozuna CNP 09/12/2017 7:38 PM SignedUROLOGY SURGICAL HANDamp;PSERVICE DATE: 09/12/2017REFERRING PROVIDER: Cleveland Calhoun MD[address] [place] [address]PNH: No PcpGENDER:SUBJECTIVECHIEF COMPLAINT: Pre-op examHISTORY OF PRESENT [...] symtoms or problems.No history of angina, CHF, [place], cardiac surgery of stents.Respiratory: Negative for current cough, dyspnea. No hx of pneumonia in thepast six weeksPositive: PND, sinus drainage from allergiesGastrointestinal: No history of GERD, PUD, abd pain, difficulty swallowing, GIbleed.Renal: +stonesMusculoskeletal: Negative for joint pain or swelling, back pain or muscle pain.Skin: Negative for lesions, rash and itching.Psychological: No history of psychiatric symptoms or problems.Neurologic: No history of TIA's, stroke, NEGATIVE TURNER APPRENTICE tumor, impaired sensorium,hemiplegia, paraplegia or quadriplegia. No [...] 10ANDquot;) Wt 79.4 kg (175 lb) BMI25.11 kg/g3Iqsoynnvdga Max: @TMAXREFRESH(24)@ALLERGIES:ISIS RGIESNo Known AllergiesLABS:No results found for: BUNNo results found for: CREATNo results found for: PSAGlucose, Urine (mg/dL)Date Value09/12/2017 Negative Bilirubin, Urine (no units)Date Value09/12/2017 Negative Ketones, Urine (no units)Date Value09/12/2017 1+ (A) Specific [place], Ur (no units)Date Value09/12/2017 1.016 Hemoglobin/Blood ,Ur [...] Calculus, kidney (primary encounter diagnosis)N20.1 Calculus of ktzohlM92.9 Right flank painI10 Essential kladbezbtcmoH88.1 Family history of kczjncthctsffgmD40.49 Family history of kkwkqubbhdtadqavvfhB81.9 Low vitamin D ehurvW34.90 Abnormal urinalysisGLICKHUNTSVILLE UROLOGICAL AND KIDNEY INSTITUTEPRE-OP NOTEDate of Procedure: [...] IMPACT - NoPACE Clinic: Cleared per ARAMIS - NoAll testing on cureform has been [...] : 11:45 AM PAGER/CONTACT #:Referring Provider: CLEVELAND CALHOUN [[id number]]Allergies As of Date: 09/12/2017(No Known Allergies)Date Reviewed: 09/12/2017Reviewed by: Az Ann MA - Fully AssessedPrimary Visit Diagnosis:Calculus, kidney [N20.0] Other Visit Diagnoses:Calculus of ureter [N20.1] Right flank pain [R10.9] Essential hypertension [I10] Family history of nephrolithiasis [Z84.1] Family history of hyperparathyroidism [Z83.49] Low vitamin D level [E55.9] Abnormal urinalysis [R82.90]Order(s):UA CHEMSTRIP ONLY [SQUA] Order #: [id number] FUTURE UA CHEMSTRIP ONLY [SQUA] Order #: [id number]. #:[id number] VITAMIN D 25 HYDROXY [SQVITD] Order #: [id number] FUTURE CBC + DIFF [SQCBCDIF] Order #: [id number] FUTURE COMP METABOLIC PANEL [SQCMP] Order #: [id number] FUTURE PTH INTACT BLD [SQPTHI] Order #: [id number] FUTURE URIC ACID BLOOD [SQURIC] Order #: [id number] FUTURE TYPE + SCREEN,30 DAY [YXMJRU48] Order #: [id number] FUTURE CONFIRM BLOOD TYPE [SQCONABO] Order #: [id number] FUTURE ECG COMPLETE W INTERPRETATION [ECG01] Order #: [id number] FUTURE [employer] [3622134] Order #: [id number] CALCIUM IONIZED B [SQICA] Order #: [id number] FUTURE URINE CULTURE [SQURCUL] Order #: [id number]. #:[id number] iptions as of 09/12/2017 Sig: MULTIVITAMIN TABLET [...] 10/11/17;.Follow-up and Disposition History RecordedLetter TextDecember 2016Cleveland Calhoun MD[address] [place] [address]FWTR: Katherine Nelson NO: [id number] OF SERVICE: 09/12/2017Dear Dr. Calhoun,I recently saw your patient, Mr. Nelson, in the [facility].Enclosed is a copy of my clinic note which should be self-explanatoryregarding findings, recommendations, and treatment plan. Please don'thesitate to contact me if there are questions.Sincerely,Feliciano Schroeder M.D.Staff Urologist, [facility] Luke's HospitalELECTRONICALLY SIGNEDcc: Abigail Sanchez M.D., [address] [place] [phone] Number: [id number] Status:Closed by FELICIANO SCHROEDER MD on 09/12/17 Normal [facility] Calcium, Ionizedon 7 Calcium 1.14 mmol/L Normal 1.08-1.30 [facility] Comment on above: Performed By: #### I CA, CBCDIF, VITD, PTHI, CMP, URIC ####[facility], [place] [phone] Calcium, Ionized 1.20 mmol/L Normal 1.08-1.30 [facility] Comment on above: Performed By: #### I CA, CBCDIF, VITD, PTHI, CMP, URIC ####[facility] [address] [place], [place] [phone] Comp Metabolic Panelon 09-12 Alanine aminotransferase (ALT) 43 U/L Normal 10-54 [facility] Comment on above: Performed By: #### I CA, CBCDIF, VITD, PTHI, CMP, URIC ####[place] [address] [place] [phone] Albumin 3.8 g/dL Low 3.9-4.9 [facility] Comment on above: Performed By: #### I CA, CBCDIF, VITD, PTHI, CMP, URIC ####[place] [phone] Alkaline phosphatase (ALP) 98 U/L Normal 36-108 [facility] Comment on above: Performed By: #### I CA, CBCDIF, VITD, PTHI, CMP, URIC ####[place] [address] [place] [phone] Anion gap 15 mmol/L Normal 9-18 [facility] Comment on above: Performed By: #### I CA, CBCDIF, VITD, PTHI, CMP, URIC ####[place] [address] [place] [phone] Aspartate aminotransferase (AST) 40 U/L Normal 14-40 [facility] Comment on above: Performed By: #### I CA, CBCDIF, VITD, PTHI, CMP, URIC ####[place] [address] [place] [phone] Bilirubin (total) 0.5 mg/dL Normal 0.2-1.3 [facility] Comment on above: Performed By: #### I CA, CBCDIF, VITD, PTHI, CMP, URIC ####[place] [address] [place] [phone] Calcium 9.3 mg/dL Normal 8.5-10.2 [facility] Comment on above: Performed By: #### I CA, CBCDIF, VITD, PTHI, CMP, URIC ####[place] [address] [place] [phone] Chloride 100 mmol/L Normal 97-105 [facility] Comment on above: Performed By: #### I CA, CBCDIF, VITD, PTHI, CMP, URIC ####[place] [address] [place] [phone] CO2 26 mmol/L Normal 22-30 [facility] Comment on above: Performed By: #### I CA, CBCDIF, VITD, PTHI, CMP, URIC ####[place] [address] [place] [phone] Creatinine 1.05 mg/dL Normal 0.73-1.22 [facility] Comment on above: Performed By: #### I CA, CBCDIF, VITD, PTHI, CMP, URIC ####[place] [address] [place] [phone] eGFR (non-black) mL/min/{1.73_m2} Normal [facility] Comment on above: Performed By: #### I CA, CBCDIF, VITD, PTHI, CMP, URIC ####[place] [address] [place] [phone] Result Comment: eGFR (Estimated GFR) Units of [...] Glucose mass conc 92 mg/dL Normal 74-99 [facility] Comment on above: Result Comment: The [place] Diabetes Association (ADA) provides guidance for cutoff [...] Standards of Medical Care in Diabetes 2016, [place] [employer]. Diabetes Care. 2016.39(Suppl 1). Performed By: #### I CA, CBCDIF, VITD, PTHI, CMP, URIC ####[place] [address] [place] [phone] Potassium molar conc 4.0 mmol/L Normal 3.7-5.1 [facility] Comment on above: Performed By: #### I CA, CBCDIF, VITD, PTHI, CMP, URIC ####[place] [phone] Protein 7.5 g/dL Normal 6.3-8.0 [facility] Comment on above: Performed By: #### I CA, CBCDIF, VITD, PTHI, CMP, URIC ####[place] [phone] Sodium 141 mmol/L Normal 136-144 [facility] Comment on above: Performed By: #### I CA, CBCDIF, VITD, PTHI, CMP, URIC ####[place] [phone] Urea nitrogen 10 mg/dL Normal 9-24 [facility] Comment on above: Performed By: #### I CA, CBCDIF, VITD, PTHI, CMP, URIC ####[place] [phone] Confirm Blood Typeon 017 ABO/RH(D) Positive Normal [facility] Comment on above: Performed By: #### C ONABO ####[place] [phone] HISTORY PHYSICALon 7 HISTORY PHYSICAL HNO ID: [id number] thor: Bonita ([facility]) DigennaroService: (none)Author Type: Nurse PractitionerType: HANDPFiled: 09/12/2017 7:38 PMNote Text:UROLOGY SURGICAL HANDPSERVICE DATE: 09/12/2017REFERRING PROVIDER: Cleveland Calhoun MD[address]ley RahmanValley HospitalNDFIRSTHEALTH [facility] [id number]: No PcpGENDER:SUBJECTIVECHIEF COMPLAINT: Pre-op examHISTORY OF PRESENT [...] symtoms or problems.No history of angina, CHF, [place], cardiac surgery of stents.Respiratory: Negative for current cough, dyspnea. No hx of pneumonia inthe past six weeksPositive: PND, sinus drainage from allergiesGastrointestinal: No history of GERD, PUD, abd pain, difficultyswallowing, GI bleed.Renal: +stonesMusculoskeletal: Negative for joint pain or swelling, back pain or musclepain.Skin: Negative for lesions, rash and itching.Psychological: No history of psychiatric symptoms or problems.Neurologic: No history of TIA's, stroke, NEGATIVE TURNER APPRENTICE tumor, impaired sensorium,hemiplegia, paraplegia or quadriplegia. No [...] ) Wt 79.4 kg (175 lb) BMI25.11 kg/h6Sffezkwsjcw Max: @TMAXREFRESH(24)@ALLERGIES:ISIS RGIESNo Known AllergiesLABS:No results found for: BUNStacy results found for: Marc results found for: PSAGlucose, Urine (mg/dL)Date Value09/12/2017 Negative Bilirubin, Urine (no units)Date Value09/12/2017 Negative Ketones, Urine (no units)Date Value09/12/2017 1+ (A) Specific [place], Ur (no units)Date Value09/12/2017 1.016 Hemoglobin/Blood ,Ur [...] Calculus, kidney (primary encounter diagnosis)N20.1 Calculus of rdidbrZ49.9 Right flank painI10 Essential ujolrhrkasphJ16.1 Family history of kyenpgyobxujrvaU03.49 Family history of bkymxqrerphgnquncoeI52.9 Low vitamin D zumgyZ24.90 Abnormal urinalysisGLICKMAN UROLOGICAL AND KIDNEY INSTITUTEPRE-OP NOTEDate [...] 2017 : 11:45 AM PAGER/CONTACT #: [facility] 09-12-2017 HOSP Patient Update ([facility]) OMAR DARRELL Handley ([id number]) 1950 MDate Time Provider Mwsyebbtrn93/12/17 ASHTYN RABAGO (RN) [facility] During your visit today, we recorded the following information about you:Allergies As of Date: 09/12/2017(No Known Allergies)Date Reviewed: 09/12/2017Reviewed by: Az Ann MA - Fully AssessedOrder(s):SURGICAL REQUEST - ELECTIVE [[id number]] Order #: [id number]: 1Prescriptions as of 09/12/2017 Sig: POTASSIUM CITRATE [...] FOR* More...Follow-up and Disposition History RecordedEncounter Number: [id number] Status:Closed by ASHTYN RABAGO on 09/12/17 Normal [facility] Patient:Darrell Nelson LMRN: Height:5' 10 (1.778 m)Weight:175 lb (79.379 kg)Outpatient Medications as of 10/11/17:potassium citrate ER (UROCIT-K) 10 mEq (1,080 mg) TbERtamsulosin ER (FLOMAX) 0.4 mg vp61hofkduih (COZAAR) 25 mg tabletmultivitamin tabletAdmission/Clinic Administered Medications [...] Urine Negative NegativeKetones, Urine Negative 1+ (A)Specific [place], Ur 1.005 - 1.030 1.016Hemoglobin/Blood,Ur Negative 2+ [...] RN and ancillary personnel.Consultation requested by Dr. Calhoun for an opinion regarding large stone burdenright [...] a JJ stent (placedlast week by Dr. Calhoun). Not much discomfort from the stent at [...] with more than 50% of the total oduy-gv-dqvx time of thevisit devoted to patient counseling/coordination of care.Feliciano Schroeder, MDDirector, Surgical Stone Disease, [facility] Urologic InstituteProfessor of Surgery, [facility] HospitalPager [phone]/12/2017Previous VersionHeisabela Ozuna CNP 09/12/2017 7:38 PM SignedUROLOGY SURGICAL HANDPSERVICE DATE: 09/12/2017REFERRING PROVIDER: Cleveland Calhoun MD[address] [facility] [id number]: No PcpGENDER:SUBJECTIVECHIEF COMPLAINT: Pre-op examHISTORY OF PRESENT [...] symtoms or problems.No history of angina, CHF, [place], cardiac surgery of stents.Respiratory: Negative for current cough, dyspnea. No hx of pneumonia in the pastsix weeksPositive: PND, sinus drainage from allergiesGastrointestinal: No history of GERD, PUD, abd pain, difficulty swallowing, GIbleed.Renal: +stonesMusculoskeletal: Negative for joint pain or swelling, back pain or muscle pain.Skin: Negative for lesions, rash and itching.Psychological: No history of psychiatric symptoms or problems.Neurologic: No history of TIA's, stroke, NEGATIVE TURNER APPRENTICE tumor, impaired sensorium,hemiplegia, paraplegia or quadriplegia. No [...] ) Wt 79.4 kg (175 lb) BMI 25.11kg/j0Smfaatfhrwh Max: @TMAXREFRESH(24)@ALLERGIES:ISIS RGIESNo Known AllergiesLABS:No results found for: BUNNo results found for: CREATNo results found for: PSAGlucose, Urine (mg/dL)Date Value09/12/2017 Negative Bilirubin, Urine (no units)Date Value09/12/2017 Negative Ketones, Urine (no units)Date Value09/12/2017 1+ (A) Specific [place], Ur (no units)Date Value09/12/2017 1.016 Hemoglobin/Blood ,Ur [...] Calculus, kidney (primary encounter diagnosis)N20.1 Calculus of ruhcdkI42.9 Right flank painI10 Essential sdkaoiqgkjndP52.1 Family history of auufhqhnznyeuguE33.49 Family history of lvmtczcuurwlwzrrzkqC40.9 Low vitamin D xyejxH01.90 Abnormal urinalysisGLICKMAN UROLOGICAL AND KIDNEY INSTITUTEPRE-OP NOTEDate [...] permitted. If the [facility], you may have water during the morning [...] 2017 : 11:45 AM PAGER/CONTACT #: Dong [facility] PROGRESSon 09-12-2017 PROGRESS HNO ID: [id number] thor: Feliciano NobleService: (none)Author Type: PhysicianType: Progress [...] Urine Negative NegativeKetones, Urine Negative 1+ (A)Specific [place], Ur 1.005 - 1.030 1.016Hemoglobin/Blood,Ur Negative 2+ [...] seizures or tremorsOTHER: patient presents for surgical consultEMILIANO LastTASALLY UROLOGY NOTE:I personally interviewed the patient, examined, confirmed and edited thehistory that was documented by Ms Conner RN and ancillary personnel.Consultation requested by Dr. Calhoun for an opinion regarding large stoneburden right [...] a JJstent (placed last week by Dr. Calhoun). Not much discomfort from the stentat this [...] with more than 50% of the total zoeg-wa-sqjnqrii of the visit devoted to patient counseling/coordination of care.Feliciano Schroeder, MDDirector, Surgical Stone Disease, [facility] Urologic InstituteProfessor of Surgery, [facility] MedicinePager [phone] Normal [facility] PTH, [place] 09-12-2017 PTH, Intact 26 pg/mL Normal 15-65 [facility] Comment on above: Performed By: #### I CA, CBCDIF, VITD, PTHI, CMP, URIC ####[address] [place] [phone] Type and SCR (30D)on 017 ABO/RH(D) Positive Normal [facility] Comment on above: Performed By: #### T SCR30 ####[place] [phone] Antibody Screen Negative Normal [facility] Comment on above: Performed By: #### T SCR30 ####[place] [phone] Uric Acidon 09-12-2017 Urate 4.9 mg/dL Normal 4.0-8.1 [facility] Comment on above: Performed By: #### I CA, CBCDIF, VITD, PTHI, CMP, URIC ####[place] [phone] Urinalysison 09-12-2017 Bilirubin, Urine Negative Normal Negative [facility] Comment on above: Performed By: #### U A ####[place] [phone] Comments SEE COMMENT Normal [facility] Comment on above: Result Comment: Micr oscopic Examination Performed Performed By: #### U A ####[place] [phone] Erythrocytes (RBC) 10*6/uL Critically abnormal 0-3 [facility] Comment on above: Performed By: #### U A ####[place] [phone] Hemoglobin mass conc (Bld) 2+ Critically abnormal Negative [facility] Comment on above: Performed By: #### U A ####[place] [address] [address] [phone] Leukest 3+ Critically abnormal Negative [facility] Comment on above: Performed By: #### U A ####[place] [address] [address] [phone] pH of blood 7.0 [pH] Normal 4.5-8.0 [facility] Comment on above: Performed By: #### U A ####[place] [address] [address] [phone] Protein, Urine 30 mg/dL Critically abnormal Negative [facility] Comment on above: Performed By: #### U A ####[address] [place] [phone] Specific [place], Ur 1.016 Normal 1.005-1.03 0 [facility] Comment on above: Performed By: #### U A ####[place] [address] [address] [phone] Urine Kelby Comment SEE COMMENT [facility] Comment on above: Result Comment: N/A Performed By: #### U A ####[place] [address] [address] [place] [phone] Urine, clarity Cloudy Critically abnormal Clear [facility] Comment on above: Performed By: #### U A ####[place] [address] [address] [place] [phone] Urine, color Yellow Normal Yellow [facility] Comment on above: Performed By: #### U A ####[place] [address] [address] [place] [phone] Urine, epithelial cells in sediment SEE COMMENT Normal [facility] Comment on above: Result Comment: FewS quamous Epithelial Cells Performed By: #### U A ####[place] [address] [address] [place] [phone] Urine, glucose presence Negative Normal Negative [facility] Comment on above: Performed By: #### U A ####[place] [address] [address] [place] [phone] Urine, ketones presence 1+ Critically abnormal Negative [facility] Comment on above: Performed By: #### U A ####[place] [address] [address] [place] [phone] Urine, nitrite presence Negative Normal Negative [facility] Comment on above: Performed By: #### U A ####[place] [address] [address] [place] [phone] Urine, urobilinogen Normal Normal Normal [facility] Comment on above: Performed By: #### U A ####[place] [phone] WBC (Leukocytes) 10*3/uL Critically abnormal 0-5 [facility] Comment on above: Performed By: #### U A ####[place] [phone] Urine Cultureon 09-12-2017 Urine culture, bacteria Sp. Request/Comment: - Specimen received in preservative Culture Result - No growth (<1,000 CFU/ml) Normal [facility] Comment on above: Performed By: #### U RCUL ####[place] [phone] Vitamin D 25 Hydroxyon 09-12 Vitamin D 25 Hydroxy 38.6 ng/mL Normal 31.0-80.0 [facility] Comment on above: Result Comment: Clas sification of 25 OH Vitamin D status:Insufficiency/Moderate Deficiency: < or = 30 ng/mLSufficiency/Optimal Levels: 31 to 80 ng/mLToxicity: > 100 ng/mLTest performed by chemiluminescent immunoassay. Performed By: #### I CA, CBCDIF, VITD, PTHI, CMP, URIC ####[place] [phone] SR-CT Abdomen/Pelvis w/o Con trast IMPORTon 09-07-2017 SR-CT Abdomen/Pelvis w/o Contrast IMPORT Images were obtained outside of [facility] [id number] Normal [facility] Vital Signs Date Time Vital Sign Value Performing Clinician Facility 10-16-2024 08:06-0500 Blood Pressure Location [facility] 10-16-2024 08:06-0500 Diastolic blood pressure 100 mm[Hg] [employer] [facility] 10-16-2024 08:06-0500 Heart rate 78 /min [employer] [facility] 10-16-2024 08:06-0500 Systolic blood pressure 163 mm[Hg] [employer] [facility] 03-20-2024 08:14-0400 Diastolic blood pressure 85 mm[Hg] [employer] [facility] 03-20-2024 08:14-0400 Heart rate 66 /min [employer] [facility] 03-20-2024 08:14-0400 Systolic blood pressure 146 mm[Hg] [employer] [facility] 08-23-2023 08:30-0500 Blood Pressure Location Laura Darling [facility] 08-23-2023 08:30-0500 Diastolic blood pressure 91 mm[Hg] Laura Orzech [facility] 08-23-2023 08:30-0500 Heart rate 88 /min Laura Orzech [facility] 08-23-2023 08:30-0500 Respiratory rate 16 /min Laura Orzech [facility] 08-23-2023 08:30-0500 Systolic blood pressure 151 mm[Hg] Laura Orzech [facility] 08-07-2023 08:45-0500 Body height 172.72 cm Abigail Sanchez Other [facility] [employer] Other 08-07-2023 08:45-0500 Body mass index (BMI) [Ratio] 25.18 kg/m2 Abigail Sanchez Other [employer] Other 08-07-2023 08:45-0500 Body weight 75.12 kg Abigail Sanchez Other [employer] Other 08-07-2023 08:45-0500 Diastolic blood pressure 73 mm[Hg] Abigail Sanchez Other [employer] Other 08-07-2023 08:45-0500 SaO2% (BldA) [Mass fraction] 99 % Abigail Sanchez Other [employer] Other 08-07-2023 08:45-0500 Systolic blood pressure 165 mm[Hg] Abigail Sanchez Other [employer] Other 11-17-2022 09:30-0500 Body height 172.72 cm Abigail Sanchez Other [employer] Other 11-17-2022 09:30-0500 Body mass index (BMI) [Ratio] 27.82 kg/m2 Abigail Sanchez Other [employer] Other 11-17-2022 09:30-0500 Body weight 83.01 kg Abigail Sanchez Other [employer] Other 11-17-2022 09:30-0500 Diastolic blood pressure 82 mm[Hg] Abigail Sanchez Other [employer] Other 11-17-2022 09:30-0500 SaO2% (BldA) [Mass fraction] 97 % Abigail Sanchez Other [employer] Other 11-17-2022 09:30-0500 Systolic blood pressure 140 mm[Hg] Abigail Sanchez Other [employer] Other 07-26-2022 13:18-0400 Blood Pressure Location [employer] [facility] [place] 07-26-2022 13:18-0400 Diastolic blood pressure 98 mm[Hg] Dharmesh NILL [facility] [place] 07-26-2022 13:18-0400 Heart rate 72 /min Dharmesh NILL [facility] [place] 07-26-2022 13:18-0400 Respiratory rate 16 /min Dharmesh NILL [facility] [place] 07-26-2022 13:18-0400 Systolic blood pressure 138 mm[Hg] Dharmesh NILL [facility] [place] Encounters Encounter Date Encounter Type Care Provider Facility Start: 04-23-2025 ambulatory [facility] Facility :[facility] Start: 11-08-2024 End: 11-08-2024 ambulatory [facility] Start: 10-16-2024 End: 10-16-2024 ambulatory [facility] Facility:[facility] Start: 10-16-2024 End: 10-16-2024 Patient encounter procedure [facility] Start: 03-20-2024 End: 03-20-2024 ambulatory [facility] Facility:[facility] Start: 03-20-2024 End: 03-20-2024 Patient encounter procedure [facility] Start: 08-23-2023 End: 08-23-2023 Patient encounter procedure Laura X Beliach [facility] Start: 08-11-2023 End: 08-11-2023 ambulatory Abigail Sanchez Other [employer] Other Start: 08-11-2023 Telephone encounter Abigail Sanchez [facility] Start: 08-07-2023 End: 08-07-2023 ambulatory Abigail Sanchez Other [employer] Other Start: 08-07-2023 Office outpatient vi sit 15 minutes Abigail Sanchez [facility] Start: 02-08-2023 End: 02-09-[address] ROCK DESIR Facility: Start: 11-17-2022 End: 11-17-2022 ambulatory Abigail Sanchez Other [employer] Other Start: 11-17-2022 Encounter for other preprocedural examination Abigail Sanchez [facility] Start: 11-17-2022 Office outpatient vi sit 15 minutes Abigail Sanchez [facility] Start: 11-03-2022 End: 11-04-[address] DENISHA GARCIA Facility:[facility] Start: 08-31-2022 Encounter for preprocedural laboratory examination DR DHARMESH LOWERY . [facility] Start: 08-31-2022 End: 08-31-[address] DHARMESH LOWERY . Facility:[facility] Start: 08-26-2022 End: 08-27-[address] DHARMESH LOWERY . Facility:[facility] Start: 08-26-2022 End: 08-27-2022 Encounter for preprocedural laboratory examination DR DHARMESH LOWERY . Facility:[facility] Start: 07-26-2022 End: 07-26-2022 Patient encounter procedure Dharmesh LOWERY [facility] Start: 06-30-2022 Adult health examination Gricelda Sanchez Other [facility] [employer] Other Start: 06-28-2022 End: 06-29-[address] ABIGAIL SANCHEZ Facility:[facility] Start: 04-27-2022 End: 04-27-2022 Patient encounter procedure [facility] Start: 04-20-2022 End: 04-21-[address] ROCK DESIR Facility:[facility] Start: 10-21-2017 End: 10-22-2017 Ambulatory ALEXA GARCIA [facility] Start: 10-13-2017 End: 10-13-2017 Ambulatory FELICIANO SCHROEDER [facility] Start: 10-11-2017 End: 10-13-2017 Ambulatory FELICIANO SCHROEDER [facility] Start: 09-12-2017 End: 09-12-2017 Ambulatory FELICIANO SCHROEDER [facility] Start: 09-12-2017 End: 09-18-2017 Ambulatory FELICIANO SCHROEDER [facility] Procedures Date Procedure Procedure Detail Performing Clinician Start: 08-31-2022 Colonoscopy Laura Darling Start: 08-31-2022 Esophagogastroduodenoscopy Laura Darling Start: 04-12-2019 Screening for malignant neoplasm of prostate Abigail Sanchez Other Start: 10-11-2017 Removal of calculus of renal pelvis through percutaneous nephrostomy [facility] Start: 10-02-2017 Cystoscopic removal of ureteric stent [facility] Start: 01-13-2016 Cysto, right RGP, right JJ stent [facility] Start: 09-16-2015 Neck Surgery [facility] Bilateral hernia repair [facility] Bilateral inguinal hernia repair Dharmesh LOWERY Cholecystectomy [facility] Colonoscopy Dharmesh NILL History of surgical procedure on cervical spine Dharmesh NILL History of surgical procedure on cervical spine Dharmesh PETERSL Sinus Surgery [facility] Immunizations Immunization Date Immunization Notes Care Provider [facility] 08-16-2021 COVID-19 Vaccine Pfizer - Documentation Purposes Only Abigail Sanchez Other [facility] 01-07-2021 COVID-19 Vaccine Pfizer - Documentation Purposes Only Abigail Sanchez Other [facility] 12-17-2020 SARS-CoV-2 (COVID-19 ) mRNA BNT-162b2 vax [facility] NEGATED: Highlighted row has not occurred!10-16-2024 influenza virus vaccine, unspecified formulation [facility] NEGATED: Highlighted row has not occurred!08-23-2023 influenza virus vaccine, unspecified formulation [facility] Payers Date Payer Category Payer Medicare [id number] 2. [id number] 1950 Unknown [id number] 2.16.84 [id number] 1950 Unknown [id number] 2.16.84 [id number] 1950 Unknown [id number] 2.16.84 [id number] 1948 Unknown [id number] 2.16.84 [id number] 1948 Unknown [id number] 2.16.84 [id number] 1948 Unknown [id number] 2.16.84 [id number] 1948 Unknown [id number] 2.16.8 [id number] 1950 Unknown [id number] 2.16.8 [id number] 1950 Unknown [id number] 2.16.8 [id number] Social History Date Type Detail Facility Start: 04-27-2022 End: 10-16-2024 Tobacco smoking status Never smoked tobacco (finding) [facility] Tobacco smoking status Never [facility] Sex Assigned At Male [facility] Functional Status Date Assessment Result Facility 10-16-2024 Functional Status N/A [facility] 03-20-2024 Functional Status N/A [facility] 08-23-2023 Functional Status N/A [facility] 07-26-2022 Functional Status N/A [facility] [place] 04-27-2022 Functional Status N/A [facility] Clinical Notes 04-27-2022 to 11-08-2024 Note Date & Type Note Facility 11-08-2024 Note [facility] Note Reason for cardiology consult: Hypertension and cardiac murmur Chief Complaint: No complaint HPI: Darrell Nelson is a 74 y.o. male with history of hypertension, prostate hypertrophy, kidney stones. No prior cardiac history. No history of hyperlipidemia or diabetes mellitus or smoking. During routine physical examination cardiac murmur was detected and echocardiographic study was ordered showing mitral valve prolapse with moderate to severe mitral regurgitation and moderate pulmonary hypertension. The patient is very active and he exercises 5 to 6 days a week without any symptoms of chest pain or shortness of breath. He denies orthopnea or paroxysmal nocturnal dyspnea. He denies any palpitations or dizziness or syncope or near syncope. He denies legs edema or legs discomfort on exertion He reports snoring but never been told that he stops breathing during the night. He denies any sleepiness or tiredness during the daytime He reports that his blood pressure at home is usually normal. He has a wrist blood pressure monitor He never been a smoker. He used to have 1 drink of alcohol in night however he reduce that to once a week after he was diagnosed with kidney stones. He denies any illicit drugs No family history of cardiac disease Cardiology ROS: GENERAL: Denies fever, chills, night sweats, weight loss. HEENT: Denies changes in vision, photophobia, changes in hearing, epistaxis, oral bleeding. CARDIOVASCULAR: Denies chest pain, exertional dyspnea, orthopnea/PND, lower extremity edema, palpitations, lightheadedness/dizziness. RESPIRATORY: Denies SOB, coughing, wheezing GI: Denies abdominal pain, nausea/vomiting, heartburn, melena/hematochezia. RENAL: Denies dysuria, hematuria, flank pain. MSK: Denies muscle weakness/pain, arthralgias/joint pain. NEUROLOGIC: Denies LOC, weakness, numbness, headaches. SKIN: Denies abnormal rashes or bleeding. PSYCH: Denies significant anxiety, depression, sleep disturbances. Past Medical History He has a past medical history of Abnormal ECG, Heart murmur, Heart valve disease, Hypertension, and Mitral valve prolapse. Surgical History He has a past surgical history that includes Neck surgery; Hernia repair; Gallbladder surgery; and Sinus surgery. Social History He reports that he has never smoked. He has never used smokeless tobacco. He reports current alcohol use of about 3.0 standard drinks of alcohol per week. He reports that he does not use drugs. Family History Family History Problem Relation Name Age of Onset Diverticulitis Mother Cancer Mother Allergies Patient has no known allergies. Medications Current Outpatient Medications: losartan (Cozaar) 25 mg tablet, Take 25 mg by mouth in the morning., Disp: , Rfl: multivitamin tablet, Take 1 tablet by mouth in the morning., Disp: , Rfl: tamsulosin (Flomax) 0.4 mg 24 hr capsule, Take 0.4 mg by mouth 2 times daily., Disp: , Rfl: Last Recorded Vitals Visit Vitals BP 160/82 (BP Location: Left arm, Patient Position: Sitting) Pulse 91 Ht 1.753 m (5' 9 ) Wt 78.9 kg (174 lb) SpO2 97% BMI 25.70 kg/m??? Smoking Status Never BSA 1.96 m??? Physical Examination: GENERAL: alert and oriented x3, well developed, in no acute distress. HEAD: atraumatic, normocephalic. EYES: KAITLYNN, EOMI. NECK: trachea midline, no JVD present, no carotid bruits present. But can hear a transmission of cardiac murmur to both carotids CARDIAC: S1, S2 present. RRR. Systolic murmur 3-4 /6 at the apex radiating to the base and to the neck RESPIRATORY: CTAB, no increased effort of breathing, no rales, rhonchi, or wheezing. ABDOMEN: soft, nontender, nondistended. EXTREMITIES: no lower extremity edema. No rash/skin discoloration present. NEURO: strength/sensation equal and symmetric in bilateral upper and lower extremities. PSYCH: appropriate mood, affect, and judgement. Labs: 10/09/2024 White blood count 9.8, hemoglobin 13.3, hematocrit 42.1, platelets 147 Sodium 141, potassium 4.3, BUN 13, creatinine 1.02, GFR above 60, glucose 97, calcium 8.7 Last Images: EKG 10/22/2024 showed normal sinus rhythm with sinus arrhythmia, heart rate 90 bpm, no T or ST changes, normal EKG Echo 10/22/2024 Assessment and Plan: Moderate to severe mitral regurgitation as a result of significant posterior mitral valve leaflet prolapse noted on transthoracic echo 10/22/2024 Moderate pulmonary arterial hypertension, probably as a result of above Essential hypertension, he is only on losartan. Blood pressure is elevated today but the patient reports is normal at home Mildly overweight, BMI 25.7 kg/m??? Prostate hypertrophy Kidney stones Plan: Continue losartan I asked the patient to bring his blood pressure monitor to evaluate its accuracy and then to check his blood pressure twice daily for 2 weeks and send me the log I explained to the patient the findings (more content not included)... [facility] 10-16-2024 Hospital Discharge instructions Patient Education 10/16/2024 08:29:35 Prostate Cancer Screening Prostate Cancer Screening Prostate [...] treatment? Where to find more information [employer]: www.cancer.org [employer]: www.auanet.org Contact a health care [...] provider. Document Revised: 03/14/2022 Document Reviewed: 03/14/2022 [employer] Patient Education 2023 [employer]. Follow Up Care 03/20/2024 09:04:03 With:KARLEE GA, [facility], URL Address: [address] [place], [place] [id number]- When: Unknown [facility] 10-16-2024 Note Patient Education Oncology Prostate Cancer Screening Prostate [...] recommendations. In general, screening is recommended if: ??? You are age 50 to 70 and [...] have a 10- to 15-year life expectancy. ??? You are younger than age 50, and [...] In general, screening is not recommended if: ??? You are younger than age 40. ??? You are between the ages of 40 and 49 and you have no risk factors. ??? You are 70 years of age or [...] high PSA levels may be caused by: ??? Prostate cancer. ??? An enlarged prostate that is not caused by cancer (benign prostatic hyperplasia, or BPH). This condition is very common in older men. ??? A prostate gland infection (prostatitis) or urinary tract infection. ??? Certain medicines such as male hormones (like [...] you may need more tests, such as: ??? A physical exam to check the size of your prostate gland, if not done as part of screening. ??? Blood and imaging tests. ??? A procedure to remove tissue samples from your prostate gland for testing (biopsy). This is the only way to know for certain if you have prostate cancer. What are the benefits of prostate cancer screening? Screening can help to identify cancer at an early stage, before symptoms start and when the cancer can be treated more easily. ??? There is a small chance that screening [...] Questions to ask your health care provider ??? When should I start prostate cancer screening? What is my risk for prostate cancer? How often do I need screening? What type of screening tests do I need? How do I get my test results? What do my results mean? Do I need treatment? Where to find more information ??? The [place] Cancer Society: www.cancer.org ??? [place] [employer] Association: www.auanet.org Contact a health care provider if: ??? You have difficulty urinating. ??? You have pain when you urinate or ejaculate. ??? You have blood in your urine or semen. ??? You have pain in your back or in the area of your prostate. Summary ??? Prostate cancer is a common type of cancer in men. The prostate gland (more content not included)... [facility] 03-20-2024 Hospital Discharge instructions Patient Education 03/20/2024 [...] urethra. Follow these instructions at home: Take hmzg-xur-ijylccd and prescription medicines only as told by [...] provider. Document Revised: 04/06/2022 Document Reviewed: 04/06/2022 [employer] Patient Education 2022 [employer]. Follow Up Care 08/23/2023 09:06:17 With:KRALEE GA, Rock Pollock, URL Address: [facility] [employer] [place] [id number]- When: Unknown [facility] 08-23-2023 Hospital Discharge instructions Patient Education 08/23/2023 [...] urethra. Follow these instructions at home: Take fmtt-vxe-btziybl and prescription medicines only as told by [...] provider. Document Revised: 04/06/2022 Document Reviewed: 04/06/2022 [employer] Patient Education 2022 [employer]. 08/23/2023 11:10:20 Prostate Cancer Screening Prostate Cancer [...] treatment? Where to find more information The [place] Cancer Society: www.cancer.org [place] U[employer] Association: www.auanet.org Contact a health care [...] provider. Document Revised: 03/14/2022 Document Reviewed: 03/14/2022 [employer] Patient Education 2022 [employer]. Follow Up Care 02/15/2023 12:04:24 With:KARLEE GA, Rock Pollock, URL Address: [address] [place], [place] [id number]- When: Unknown [facility] 08-07-2023 Evaluation note Encounter Date Diagnosis Assessment [...] Has passed the quarantine dates. Rest, hydrate. [facility] Other 02-16-2023 Evaluation note* Encounter Date Diagnosis Assessment Notes Treatment Notes Treatment Clinical Notes Nov, Preoperative clearance (ICD-10 - Z01.818) Excluding any abnormalities and upcoming preoperative testing, Darrell is cleared for surgery. He is scheduled with Dr. Gallo for a robotic sigmoid colectomy on December 07. Nov, Tubulovillous adenoma of colon (ICD-10 - D12.6) Discussed iron deficiency anemia history. This had prompted our colonoscopy which took months to complete. Patient is anticipating getting the surgery completed and behind him at this juncture. Nov, Essential hypertension (ICD-10 - I10) [facility] Other 11-30-2022 NoteOP Note OPERATION DATE: 08/31/2022 PREOPERATIVE DIAGNOSIS: Iron deficiency anemia, personal history of tubulovillous adenoma. POSTOPERATIVE DIAGNOSIS: Large polypoid mass at 50 cm. PROCEDURE: EGD with antral biopsy and colonoscopy to cecum with cold forceps biopsies of sigmoid polypoid mass, 50 cm. SURGEON: Dharmesh Lowery M.D. ANESTHESIA: Monitored anesthesia care. ESTIMATED BLOOD [...] year after that. CC: Abigail Sanchez M.D.[id number] NoteOPERATIVE NOTE OPERATION DATE: 08/26/2022 PREOPERATIVE DIAGNOSIS: Iron deficiency anemia, personal history of colon polyps. POSTOPERATIVE DIAGNOSIS: Antral gastritis, sigmoid diverticulosis as well as polypoid mass at 50 cm. PROCEDURE: EGD with antral biopsy and colonoscopy to cecum with biopsy of polypoid mass at 50 cm. SURGEON: Dharmesh Lowery M.D. ANESTHESIA: Monitored anesthesia care. ESTIMATED BLOOD [...] in good condition. CC: Abigail Sanchez M.D.[id number] NoteOPERATIVE NOTE OPERATION DATE: 08/26/2022 PREOPERATIVE DIAGNOSIS: Iron deficiency anemia, personal history of tubulovillous adenoma. POSTOPERATIVE DIAGNOSIS: Large polypoid mass at 50 cm. PROCEDURE: EGD with antral biopsy and colonoscopy to cecum with cold forceps biopsies of sigmoid polypoid mass, 50 cm. SURGEON: Dharmesh Lowery M.D. ANESTHESIA: Monitored anesthesia care. ESTIMATED BLOOD [...] one year after that. CC: Abigail Sanchez M.D.[facility]07-27-2022 Hospital Discharge instructions Patient Education 04/27/2022 08:25:39 [...] urethra. Follow these instructions at home: Take ubru-arp-ytpjopd and prescription medicines only as told by [...] 09/18/2006 Document Revised: 08/13/2019 Document Reviewed: 10/23/2017 [employer] Patient Education 2020 [employer]. Follow Up Care 10/25/2021 11:53:28 With:Rock DESIR MD, URL Address: [address] [place], [place] [id number]- When:Within 6 Month(s) [facility] Evaluation + Plan note Future Appointments Appointment Date:10/17/2022 08:00:00 AM Scheduled Provider:Rock DESIR MD Location:[facility] Appointment Type:URO Office Visit Diagnostic Tests Pending * PSA Free & Total 09/01/22 [facility] Evaluation + Plan note Future Appointments Appointment Date:10/17/2022 08:00:00 AM Scheduled Provider:Rock DESIR MD Location:[facility] Appointment Type:URO Office Visit General [facility] [place] Evaluation + Plan note Future Appointments Appointment Date:03/20/2024 08:00:00 AM Scheduled Provider:Rock DESIR MD Location:[facility] Appointment Type:URO Office Visit Diagnostic Tests Pending * PSA Free & Total 08/23/23 [facility] Evaluation + Plan note Future Appointments Appointment Date:10/16/2024 08:00:00 AM Scheduled Provider:Rock DESIR MD Location:[facility] Appointment Type:URO Office Visit Diagnostic Tests Pending * PSA Free & Total 07/02/24 [facility] Evaluation + Plan note Future Appointments Appointment Date:04/23/2025 08:45:00 AM Scheduled Provider:Rock DESIR MD Location:[facility] Appointment Type:URO Office Visit Diagnostic Tests Pending * PSA Free & Total 03/02/25 [facility] Evaluation noteNo InformationNosaint [facility] [employer] Other Hisdmrf general Narrative - Reported* Type Description Date Medical History Iron deficiency anemia Medical History Fatigue Medical History Dyspnea on exertion Medical History Essential hypertension Surgical History CHOLECYSTECTOMY Surgical History CERVICAL DISC SURGERY Surgical History 2 INGUINAL HERNIA SURGERY Hospitalization History SEE SURGICAL HX [facility] Other Hismjqw general Narrative - Reported* Type Description Date Medical History Iron deficiency anemia Medical History Fatigue Medical History Dyspnea on exertion Medical History Essential hypertension Surgical History CHOLECYSTECTOMY Surgical History CERVICAL DISC SURGERY Surgical History 2 INGUINAL HERNIA SURGERY Surgical History Colonoscopy 2022 Surgical History Bowel resection 11/2022 Hospitalization History SEE SURGICAL HX [facility] Other Hospital course Narrative No data available for this section [facility] Hospital Discharge instructions No data available for this section General Surgery [place] Progress note No data available for this section [facility] Summary Purpose Family History No Family History Records FoundNo Family History Records FoundNo Family History Records Found No data available for this section No data available for this section No Family History Records Found No data available [...] section and content) DATE CREATED AUTHOR 03/26/2018 [facility] DATE CREATED AUTHOR AUTHOR'S ORGANIZ ATION 03/31/2022 [facility] DATE CREATED AUTHOR AUTHOR'S ORGANIZ ATION 02/12/2023 [facility] DATE CREATED AUTHOR AUTHOR'S ORGANIZ ATION 10/17/2024 [facility] DATE CREATED AUTHOR AUTHOR'S ORGANIZ ATION 11/10/2024 [facility] Care Team (unrecognized sect ion and content) Personnel Name: ABIGAIL SANCHEZ MD Address: [address] [place] [address] Personnel Name: ABIGAIL SANCHEZ MD Address: Address: [address] [place] [address] Personnel Name: ABIGAIL SANCHEZ MD Address: Address: [address] [place] [address] Personnel Name: ABIGAIL SANCHEZ MD Address: Address: [address] [place] [address] Personnel Name: ABIGAIL SANCHEZ MD Address: Address: [address] [place] [address] REASON FOR VISIT (unrecogniz ed section and [...] BE BASED ON THE PRIMARY CLINICAL RECORDS. [facility]. provides no warranty or guarantee of the accuracy or completeness of information in this document.
[2024-11-13 08:19] LABS: Alanine Aminotransferase 20 U/L (16-63); Aspartate Amino Transferase 30 U/L (15-37); Chol HDL Ratio 2.3; Cholesterol 162 mg/dL (<=200); HDL Cholesterol 69 mg/dL (40-60); Triglycerides 45 mg/dL (<=150)
== END 2024-11-13 07:47 | disposition home or self-care (01) ==
LOC: LAB 07:48
PROVIDERS: PCP Family Medicine; Visit Provider Internal Medicine Cardiovascular Disease
DX: E78.00 Pure hypercholesterolemia, unspecified (principal)
CPT/HCPCS: 36415; 80061; 84450; 84460

== ENCOUNTER 2025-01-20 08:40 | Outpatient (OUT) | payer MEDICARE, SELFPAY ==
--- OUTSIDE RECORDS SUMMARY | 2025-01-20 09:03 | XMS_ITS | CCD ---
Author Organization [facility] CliniSymd Care Team Providers Care Excelsior Picker Name Role Phone SCHROEDER, FELICIANO Unavailable Unavailable RICE, CLEVELAND W Unavailable Unavailable RICE, CLEVELAND W Unavailable Unavailable SCHROEDER, FELICIANO Unavailable Unavailable SCHROEDER, FELICIANO Unavailable Unavailable SCHROEDER, FELICIANO Unavailable Unavailable SCHROEDER, FELICIANO Unavailable Unavailable SCHROEDER, FELICIANO Unavailable Unavailable ALEXA GARCIA Unavailable Unavailable SCHROEDER, FELICIANO Unavailable Unavailable ABIGAIL SANCHEZ Primary Care Physician Daniel, Abigail Unavailable DANIEL, DR ABIGAIL Trejo Admitting Unavailable SANCHEZ, DR ABIGAIL Trejo Attending Unavailable SANCHEZ, DR ABIGAIL Trejo Primary Care Unavailable SANCHEZ, DR ABIGAIL Trejo Consulting Unavailable GARCIA, DR DENNY Admitting Unavailable GARCIA, DR DENNY Attending Unavailable SANCHEZ, DR ABIGAIL Trejo Primary Care Unavailable WAVERLY, DR OLIVER Maguire Consulting Unavailable GARCIA, DR [...] Consulting Unava ilable GEMBUS, LUCITA Consulting Unavailable COOK, DR ROCK Pollock Admitting Unavailable COOK, DR ROCK Pollock Attending Unavailable SANCHEZ, DR ABIGAIL Trejo Primary Care Unavailable COOK, DR ROCK Pollock Consulting Unavailable COOK, Rock Pollock Attending Unavailable COOK, Rock Pollock Attending Unavailable Rock LUJAN Attending Unavailable JOHN MOY Attending Unavailable JOHN MOY Attending Unavailable JOHN MOY Referring Unavailable Medications Current Medications Medication Drug Class(es) [...] BID, # 14 tab(s), Refills(s) 0, Pharmacy: [facility], 177, cm, 02/15/23 11:48:00 EDT, Height/Length [...] BID, # 180 cap(s), Refills(s) 3, Pharmacy: [facility], 177, cm, 08/23/23 8:44:00 EST, Height/Length Dosing, 78.9, kg, 08/23/23 8:44:00 EST, Weight Dosing Start Date: 01/09/24 Status: Ordered Start: 01-12-2023 take 1 capsule by [facility] twice daily tamsulosin 0.4 mg Cap 0.4 mg = 1 cap(s), Oral, BID, # 180 cap(s), Refills(s) 3, Pharmacy: [facility], 177, cm, 07/26/22 13:27:00 EDT, Height/Length Dosing, 87.5, kg, 07/26/22 13:27:00 EDT, Weight Dosing Start Date: 01/12/23 Status: Ordered Start: 01-05-2022 take 1 capsule by [facility] twice daily tamsulosin 0.4 mg Cap 0.4 mg = 1 cap(s), Oral, BID, # 180 cap(s), Refills(s) 3, Pharmacy: [facility], 177, cm, 10/25/21 11:30:00 EST, Height/Length [...] 07/18/22 Status: Ordered take 1 tablet by [facility] every twelve hours Losartan Potassium 25 MG [...] lower urinary tract symptoms] Onset: 06-18-2015 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 (2 sources) Hypertensive heart disease without heart failure; Translations: [Hypertensive heart disease without heart failure] Onset: 01-13-2025 Chronic 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 [...] 09-07-2022 Episodic Other aftercare (1 source) Other fdc (current) drug therapy; Translations: [OTH LINUX ARCHITECT CURRENT DRUG THERAPY] Onset: 09-07-2022 Episodic Other [...] Value Interpretation Reference Range Facility Office Visiton 01-13-2025 Follow-up visit [id number] Anna Nelson 1950 M Date Provider Department Center 01/13/2025 [id number] MOY CARD [facility] Family History Problem Relation Age of Onset Diverticulitis Mother Cancer Mother Accidental Brother Family Status - Relation Status Age at Mother Father Sister Alive Brother Level of Service:12467 MD OFFICE/OUTPATIENT ESTABLISHED MOD MDM 30 MIN Reason for Visit and Comments: Follow-up [638335] - Follow up labs and ALEXEI Hypertension [621436] Normal [facility] ANESon 12-20-2024 ANES Attestation signed by Radha Yi MD at 12/20/2024 12:20 PM By using the attestations below, the signing clinician agrees that I have read and verify that the documentation has been personally reviewed by me and ensure that the documentation accurately reflects the encounter. GC: I personally saw this patient on the day of the encounter, performed the soni portion(s) of the service and participated in the management and confirm the resident's documentation. Please note there may be an additional personal documentation from me. Patient: Darrell Nelson Procedure Information Date/Time: 12/20/24 1030 Procedure: TRANSESOPHAGEAL ECHO (ALEXEI) Location: [facility] V[facility] Lab Clinical information reviewed: Allergies Meds Physical Exam Airway Mallampati: III Cardiovascular Rhythm: regular Rate: normal (+) murmur Dental Pulmonary (-) decreased breath sounds Abdominal (-) obese Anesthesia Plan Additional Equipment Requests Normal [facility] HPon 12-20-2024 HP Attestation signed by Radha Yi MD at 12/20/2024 12:19 PM By using the attestations below, the signing clinician agrees that I have read and verify that the documentation has been personally reviewed by me and ensure that the documentation accurately reflects the encounter. GC: I personally saw this patient on the day of the encounter, performed the soni portion(s) of the service and participated in the management and confirm the resident's documentation. Please note there may be an additional personal documentation from me. History Of Present Illness Darrell Nelson is a 74 y.o. male with hx of htn and echocardiographic study was ordered showing mitral valve prolapse with moderate to severe mitral regurgitation and moderate pulmonary hypertension. presenting for alexei. Past Medical History He has a past [...] reports that he does not use drugs. Allergies Patient has no known allergies. Medications (Not in a hospital admission) X-ray chest 2 views 11/23/2022 [id number] Final Review of Systems All other systems reviewed and are negative. Physical Exam Vitals reviewed. Constitutional: Appearance: Normal appearance. HENT: Head: Normocephalic and atraumatic. Eyes: General: Right eye: No discharge. Left eye: No discharge. Cardiovascular: Rate and Rhythm: Normal rate and regular rhythm. Heart sounds: Murmur heard. Pulmonary: Effort: Pulmonary effort is normal. No respiratory distress. Breath sounds: Normal breath sounds. Neurological: General: No focal deficit present. Mental Status: He is alert and oriented to person, place, and time. Psychiatric: Mood and Affect: Mood normal. Behavior: Behavior normal. Last Recorded Vitals Blood pressure 160/79, pulse 93, resp. rate 16, SpO2 98%. Assessment/Plan Active Problems: There are no active Hospital Problems. 1- Mitral valve prolapse 2- Moderate to severe MR Proceed with ALEXEI for better evaluation of MR. Cesar Agarwal MD PGY-5 Label Sewer [facility] Pager # [phone] [facility] NURSNOTEon 12-20-2024 NURSNOTE Bedside swallow stud y completed and passed. RN educated pt on d/c instructions. This included: site care, limited physical activity, resume normal diet, future appointments, medications, and moderate sedation instructions. RN educated pt on when to notify physician and when to go to the hospital. RN encouraged pt to voice any questions or concerns, and answered any questions or concerns if pt verbalized. [facility] Telephoneon 12-13-2024 Telephone [id number] Anna Nelson 1950 M Date Provider Department Center 12/13/2024 [facility] Family History Problem Relation Age of Onset Diverticulitis Mother Cancer Mother Family Status - Relation Status Age at Mother [facility] 36on 11-15-2024 34 Regarding lab result s from 11/13/2024: MD Eneida Simeon MA Lipids look very good. Continue current diet and exercise. LM on patient's VM. Normal [facility] Office Visiton 11-08-2024 Follow-up visit [id number] Anna Nelson 1950 M Date Provider Department Center 11/08/2024 [id number] BRIDGETTEEDDIE MEMO Leal Family History Problem Relation Age of Onset Diverticulitis Mother Cancer Mother Family Status - Relation Status Age at Mother Level of Service:94326 MD OFFICE/OUTPATIENT NEW MODERATE MDM 45 MINUTES Reason for Visit and Comments: Hypertension [251609] Heart Murmur [124] - Had EKG and echo a few weeks ago. He denies chest pain, SOB, and palpitations. Normal [facility] Ambulatory Visit Summaryon 0 10-16-2024 Ambulatory Visit [...] Follow-Up Appointments Monday 8:45 AM EDT With: KARLEE GA, Rock Pollock Where: [facility] [address], [address] [place] [address]- You Need to Schedule the Following Appointments Follow Up with KARLEE GA, ASHLEY Hogan When: Where: [address] [facility] [address] [place] [address]- Medications What How Much When Instructions Unchanged [...] that yo (more content not included)... Normal [facility] Urology Office/Clinic Noteon 10-16-2024 Urology Office/Clinic Note [...] history for this patient from Dr. Lujan I have reviewed and verified the staff [...] with voice recognition artificial intelligence software, specifically [employer], [employer] and or [employer]. Substitutions may have occurred due to the [...] Information KARLEE GA, Rock Pollock, URL [address] [place] [address]- Additional Instructions: 6 mos w/ PSA free & total Patient Education Prostate Cancer Screening I, Rianna March, personally scribed for Dr. Lujan on 10/16/2024 08:31:48. . Documentation recorded by the scribe, Rianna March, accurately reflects the services(s) I performed and decisions made by me. Authenticated by Dr. Lujan on 10/16/2024 08:33:21. Problem List/Past Medical History [...] calculus (02/11/2016), Cys (more content not included)... [facility] Comment on above: Result Comment: Elec tronically Signed By: Rock LUJAN MD\.br\Date and Time Signed: 10/16/24 08:34 EST\.br\Electronically Co-Signed By: Rianna March\.br\Date and Time Co-Signed: 10/16/24 08:31 EST Lab Reportson 03-21-2024 Lab Reports [id number] [facility] Screenson 03-21-2024 Screens [id number] [facility] Ambulatory Visit Summaryon 0 03-20-2024 Ambulatory Visit [...] [place], Rock Pollock Where: [facility] [place] Normal [facility] Patient Educationon 03-20-20 Patient Education Urology Benign [...] Follow these instructions at home: ? Take tqpl-mag-nkhghml and prescription medicines only as told by [...] the medicine (more content not included)... Normal [facility] Urology Office/Clinic Noteon 03-20-2024 Urology Office/Clinic Note [...] with voice recognition artificial intelligence software, specifically [employer], [employer] and or [employer]. Substitutions may have occurred due to the [...] monitoring. Follow-up With When Contact Information Rock LUJAN MD, URL [address] [address]- Additional Instructions: 6 mos w/ PSA free & total Patient Education Benign Prostatic Hyperplasia I, Rianna March, personally scribed for Dr. Lujan on 03/20/2024 09:00:12. . Documentation recorded by the cherylibRianna trejo, accurately reflects the services(s) I performed and [...] bilateral ingui (more content not included)... Normal [facility] Comment on above: Result Comment: Elec tronically Signed By: Rock LUJAN MD\.br\Date and Time Signed: 03/20/24 09:03 EDT\.br\Electronically Co-Signed By: Rianna March\.br\Date and Time Co-Signed: 03/20/24 09:00 EDT PSA, FREE AND TOTAL RATIOon 02-09-2023 % Free PSA 19.7 % Normal [facility] Comment on above: Result Comment: The table [...] men. Performed By: #### P SAFREE #### [facility] [address] [place] [address] Dr. Vaishali Dorsey Prostate specific Ag [Mass/Vol] 7.6 ng/mL Critically high 0.0-4.0 [facility] Comment on above: Result Comment: Dakota trejo ECLIA methodology. . According to the [employer], Serum PSA should decrease and [...] disease. Performed By: #### P SAFREE #### [facility] [address] [place] [address] Dr. Vaishali Dorsey PSA, Free 1.50 ng/mL Normal N/A [facility] Comment on above: Result Comment: Dakota trejo ECLIA methodology. Performed By: #### P SAFREE #### [facility] [address] [place] [address] Dr. Vaishali Dorsey CBC AUTO DIFFon 11-03-2022 BASO # 0.1 103/ul Normal 0.0-0.1 [facility] Comment on above: Performed By: #### C BC #### [facility] [address] [place] [address] Dr. Vaishali Dorsey Basophils/100 WBC (Bld) 0.6 % Normal 0.2-2.0 [facility] Comment on above: Performed By: #### C BC #### [facility] [address] [place] [address] Dr. Vaishali Dorsey EO # 0.5 103/ul Normal 0.0-0.7 [facility] Comment on above: Performed By: #### C BC #### [facility] [address] [place] [address] Dr. Vaishali Dorsey Eosinophils/100 WBC (Bld) 4.4 % Normal 0.9-7.0 [facility] Comment on above: Performed By: #### C BC #### [facility] [address] [place] [address] Dr. Vaishali Dorsey Erythrocyte distribution width (RBC) [Ratio] 17.2 % Critically high 11.0-15.0 [facility] Comment on above: Performed By: #### C BC #### [facility] [address] [place] [address] Dr. Vaishali Dorsey Hematocrit (Bld) [Volume fraction] 39.6 % Critically low 42.0-54.0 [facility] Comment on above: Performed By: #### C BC #### [facility] [address] [place] [address] Dr. Vaishali Dorsey Hemoglobin (Bld) [Mass/Vol] 11.8 g/dL Critically low 14.0-18.0 [facility] Comment on above: Performed By: #### C BC #### [facility] [address] [place] [address] Dr. Vaishali Dorsey IG # 0.03 10e3/ul Normal 0.00-0.03 [facility] Comment on above: Performed By: #### C BC #### [facility] [address] [place] [address] Dr. Vaishali Dorsey IG % 0.3 % Normal 0.0-0.5 [facility] Comment on above: Performed By: #### C BC #### [facility] [address] [place] [address] Dr. Vaishali Dorsey LYMPH # 4.1 103/ul Critically high 1.2-3.8 [facility] Comment on above: Performed By: #### C BC #### [facility] [address] [place] [address] Dr. Vaishali Dorsey Lymphocytes/100 WBC (Bld) 34.2 % Normal 20.5-60.0 [facility] Comment on above: Performed By: #### C BC #### [facility] [address] [place] [address] Dr. Vaishali Dorsey MANUAL DIFF REQ NO Normal [facility] Comment on above: Performed By: #### C BC #### [facility] [address] [place] [address] Dr. Vaishali Dorsey MCH (RBC) [Entitic mass] 24.5 pg Critically low 25.9-34.0 [facility] Comment on above: Performed By: #### C BC #### [facility] [address] [place] [address] Dr. Vaishali Dorsey MCHC (RBC) [Mass/Vol] 29.8 g/dL Critically low 29.9-35.2 [facility] Comment on above: Performed By: #### C BC #### [facility] [address] [place] [address] Dr. Vaishali Dorsey MCV (RBC) [Entitic vol] 82.2 fL Normal 80.0-94.0 [facility] Comment on above: Performed By: #### C BC #### [facility] [address] [place] [address] Dr. Vaishali Dorsey MONO # 1.1 103/ul Critically high 0.3-0.8 [facility] Comment on above: Performed By: #### C BC #### [facility] [address] [place] [address] Dr. Vaishali Dorsey Monocytes/100 WBC (Bld) 9.1 % Normal 1.7-12.0 [facility] Comment on above: Performed By: #### C BC #### [facility] [address] [place] [address] Dr. Vaishali Dorsey NEUT # 6.1 103/ul Normal 1.4-6.5 [facility] Comment on above: Performed By: #### C BC #### [facility] [address] [address] [address] Vaishali Dorsey Neutrophils/100 WBC (Bld) 51.4 % Normal 43.0-75.0 [facility] Comment on above: Performed By: #### C BC #### [facility] [address] [place] [address] Dr. Vaishali Dorsey Platelet mean volume (Bld) [Entitic vol] 10.3 fL Normal 9.5-13.5 [facility] Comment on above: Performed By: #### C BC #### [facility] [address] [place] [address] Dr. Vaishali Dorsey PLT 231 103/ul Normal 150-450 [facility] Comment on above: Performed By: #### C BC #### [facility] [address] [place] [address] Dr. Vaishali Dorsey RBC 4.82 106/ul Normal 4.70-6.10 [facility] Comment on above: Performed By: #### C BC #### [facility] [address] [place] [address] Dr. Vaishali Dorsey WBC 11.9 103/ul Critically high 4.0-11.0 [facility] Comment on above: Performed By: #### C BC #### [facility] [address] [place] [address] ABD/PELV W CONon [...] OLIVER CHAVEZ Date: 2022-11-03 13:53 Normal [facility] PROF CHEM 8 (BAS METB)on Anion gap [Moles/Vol] 10.3 mmol/L Normal [facility] Comment on above: Performed By: #### B MP ####[facility] [address] [place], [place] [address]Dr. Vaishali Dorsey Calcium [Mass/Vol] 9.2 mg/dL Normal 8.5-10.1 [facility] Comment on above: Performed By: #### B MP ####[facility] [address] [place], [place] [address]Dr. Vaishali Dorsey Chloride [Moles/Vol] 105 mmol/L Normal 98-107 [facility] Comment on above: Performed By: #### B MP ####[facility] [address] [place], [place] [address]Dr. Vaishali Dorsey CO2 [Moles/Vol] 32.4 mmol/L Critically high 21.0-32.0 [facility] Comment on above: Performed By: #### B MP ####[facility] [address] [place], [place] [address]Dr. Vaishali Dorsey Creatinine [Mass/Vol] 1.00 mg/dL Normal 0.70-1.30 [facility] Comment on above: Performed By: #### B MP ####[facility] [address] [place], [place] [address]Dr. Vaishali Dorsey EGFR-AF PALAUAN >60 Normal >=60 [facility] Comment on above: Performed By: #### B MP ####[facility] [address] [place], [place] [address]DrBraden Dorsey EGFR-NON AF PALAUAN >60 Normal >=60 [facility] Comment on above: Performed By: #### B MP ####[facility] [address] [address]Dr. Vaishali Dorsey Glucose [Mass/Vol] 101 mg/dL Normal 74-106 [facility] Comment on above: Performed By: #### B MP ####[facility] [address] [address]DrBraden Dorsey Potassium [Moles/Vol] 5.7 mmol/L Critically high 3.5-5.1 [facility] Comment on above: Performed By: #### B MP ####[facility] [address] [address]DrBraden Dorsey Sodium [Moles/Vol] 142 mmol/L Normal 136-145 [facility] Comment on above: Performed By: #### B MP ####[facility] [address] [address]Dr. Vaishali Dorsey Urea nitrogen [Mass/Vol] 13.0 mg/dL Normal 7.0-18.0 [facility] Comment on above: Performed By: #### B MP ####[facility] [address] [address]DrBraden Dorsey Urea nitrogen/Creatinin e [Mass ratio] 13.0 mg/mg Normal [facility] Comment on above: Performed By: #### B MP ####[facility] [address] [address]Dr. Vaishali Dorsey PROTIMEon 11-03-2022 INR Coag (PPP) [Relative time] 0.96 {INR} Normal [facility] Comment on above: Performed By: #### P T #### [facility] [address] [address] [address] Vaishali Dorsey INR GUIDELINES SEE BELOW Normal [facility] Comment on above: Result Comment: JOSEF RED INR: 2.0 - 3.0 CONDITIONS NOT LISTED BELOW 2.5 - 3.5 FOR PROSTHETIC HEART VALVE REPLACEMENT 2.5 - 3.5 RECURRENT THROMBOSIS Performed By: #### P T #### [facility] [address] [place] [address] Dr. Vaishali Dorsey PT Coag (PPP) [Time] 10.2 s Normal 9.0-11.6 [facility] Comment on above: Performed By: #### P T #### [facility] [address] [place] [address] Dr. Vaishali Dorsey Covid-19 PCR (CVDTB)on 08-03 SARS-CoV-2 (COVID-19) RNA NICK+probe Ql (Unsp spec) Not detected Normal NOT DETECTED [facility] Comment on above: Result Comment: When diagnostic [...] for this test is supported by the [place] of [employer] and Human Service's declaration that [...] used). Performed By: #### C VDTBH #### [facility] [address] [place] [address] Dr. Vaishali Dorsey CBC AUTO DIFFon 06-28-2022 BASO # 0.1 103/ul Normal 0.0-0.1 [facility] Comment on above: Performed By: #### C BC #### [facility] [address] [place] [address] Dr. Vaishali Dorsey Basophils/100 WBC (Bld) 0.6 % Normal 0.2-2.0 [facility] Comment on above: Performed By: #### C BC #### [facility] [address] [place] [address] Dr. Vaishali Dorsey EO # 0.3 103/ul Normal 0.0-0.7 [facility] Comment on above: Performed By: #### C BC #### [facility] [address] [place] [address] Dr. Vaishali Dorsey Eosinophils/100 WBC (Bld) 2.0 % Normal 0.9-7.0 [facility] Comment on above: Performed By: #### C BC #### [facility] [address] [place] [address] Dr. Vaishali Doresy Erythrocyte distribution width (RBC) [Ratio] 16.4 % Critically high 11.0-15.0 [facility] Comment on above: Performed By: #### C BC #### [facility] [address] [place] [address] Dr. Vaishali Dorsey Hematocrit (Bld) [Volume fraction] 38.0 % Critically low 42.0-54.0 [facility] Comment on above: Performed By: #### C BC #### [facility] [address] [place] [address] Dr. Vaishali Dorsey Hemoglobin (Bld) [Mass/Vol] 11.8 g/dL Critically low 14.0-18.0 [facility] Comment on above: Performed By: #### C BC #### [facility] [address] [place] [address] Dr. Vaishali Dorsey IG # 0.04 10e3/ul Critically high 0.00-0.03 [facility] Comment on above: Performed By: #### C BC #### [facility] [address] [place] [address] Dr. Vaishali Dorsey IG % 0.3 % Normal 0.0-0.5 [facility] Comment on above: Performed By: #### C BC #### [facility] [address] [place] [address] Dr. Vaishali Dorsey LYMPH # 3.6 103/ul Normal 1.2-3.8 [facility] Comment on above: Performed By: #### C BC #### [facility] [address] [place] [address] Dr. Vaishali Dorsey Lymphocytes/100 WBC (Bld) 28.4 % Normal 20.5-60.0 [facility] Comment on above: Performed By: #### C BC #### [facility] [address] [place] [address] Dr. Vaishali Dorsey MANUAL DIFF REQ NO Normal [facility] Comment on above: Performed By: #### C BC #### [facility] [address] [place] [address] Dr. Vaishali Dorsey MCH (RBC) [Entitic mass] 25.2 pg Critically low 25.9-34.0 [facility] Comment on above: Performed By: #### C BC #### [facility] [address] [place] [address] Dr. Vaishali Dorsey MCHC (RBC) [Mass/Vol] 31.1 g/dL Normal 29.9-35.2 [facility] Comment on above: Performed By: #### C BC #### [facility] [address] [place] [address] Dr. Vaishali Dorsey MCV (RBC) [Entitic vol] 81.0 fL Normal 80.0-94.0 [facility] Comment on above: Performed By: #### C BC #### [facility] [address] [place] [address] Dr. Vaishali Dorsey MONO # 1.1 103/ul Critically high 0.3-0.8 [facility] Comment on above: Performed By: #### C BC #### [facility] [address] [place] [address] Dr. Vaishali Dorsey Monocytes/100 WBC (Bld) 8.3 % Normal 1.7-12.0 [facility] Comment on above: Performed By: #### C BC #### [facility] [address] [place] [address] Dr. Vaishali Dorsey NEUT # 7.6 103/ul Critically high 1.4-6.5 [facility] Comment on above: Performed By: #### C BC #### [facility] [address] [place] [address] Dr. Vaishali Dorsey Neutrophils/100 WBC (Bld) 60.4 % Normal 43.0-75.0 [facility] Comment on above: Performed By: #### C BC #### [facility] [address] [place] [address] Dr. Vaishali Dorsey Platelet mean volume (Bld) [Entitic vol] 10.7 fL Normal 9.5-13.5 [facility] Comment on above: Performed By: #### C BC #### [facility] [address] [place] [address] Dr. Vaishali Dorsey PLT 226 103/ul Normal 150-450 [facility] Comment on above: Performed By: #### C BC #### [facility] [address] [place] [address] Dr. Vaishali Dorsey RBC 4.69 106/ul Critically low 4.70-6.10 [facility] Comment on above: Performed By: #### C BC #### [facility] [address] [place] [address] Dr. Vaishali Dorsey WBC 12.6 103/ul Critically high 4.0-11.0 [facility] Comment on above: Performed By: #### C BC #### [facility] [address] [place] [address] Dr. Vaishali Dorsey FERRITINon 06-28-2022 Ferritin [Mass/Vol] 8.0 ng/mL Critically low 26.0-388.0 [facility] Comment on above: Performed By: #### F ERR #### [facility] [address] [place] [address] Dr. Vaishali Dorsey PROF 14(COMP METB)on 022 Albumin [Mass/Vol] 3.8 g/dL Normal 3.4-5.0 [facility] Comment on above: Performed By: #### C MP #### [facility] [address] [place] [address] Dr. Vaishali Dorsey Albumin/Globulin [Mass ratio] 1.1 {ratio} Normal [facility] Comment on above: Performed By: #### C MP #### [facility] [address] [place] [address] Dr. Vaishali Dorsey ALP [Catalytic activity/Vol] 66 U/L Normal 46-116 [facility] Comment on above: Performed By: #### C MP #### [facility] [address] [place] [address] Dr. Vaishali Dorsey ALT [Catalytic activity/Vol] 22 U/L Normal 16-63 [facility] Comment on above: Performed By: #### C MP #### [facility] [address] [place] [address] Dr. Vaishali Dorsey Anion gap [Moles/Vol] 10.4 mmol/L Normal [facility] Comment on above: Performed By: #### C MP #### [facility] [address] [place] [address] Dr. Vaishali Dorsey AST [Catalytic activity/Vol] 19 U/L Normal 15-37 [facility] Comment on above: Performed By: #### C MP #### [facility] [address] [place] [address] Dr. Vaishali Dorsey Bilirubin [Mass/Vol] 0.2 mg/dL Normal 0.2-1.0 [facility] Comment on above: Performed By: #### C MP #### [facility] [address] [place] [address] Dr. Vaishali Dorsey Calcium [Mass/Vol] 9.2 mg/dL Normal 8.5-10.1 [facility] Comment on above: Performed By: #### C MP #### [facility] [address] [place] [address] Dr. Vaishali Dorsey Chloride [Moles/Vol] 107 mmol/L Normal 98-107 [facility] Comment on above: Performed By: #### C MP #### [facility] [address] [place] [address] Dr. Vaishali Dorsey CO2 [Moles/Vol] 31.2 mmol/L Normal 21.0-32.0 [facility] Comment on above: Performed By: #### C MP #### [facility] [address] [place] [address] Dr. Vaishali Dorsey Creatinine [Mass/Vol] 1.02 mg/dL Normal 0.70-1.30 [facility] Comment on above: Performed By: #### C MP #### [facility] [address] [address] [address] Vaishali Dorsey EGFR-AF PALAUAN >60 Normal >=60 [facility] Comment on above: Performed By: #### C MP #### [facility] [address] [address] [address] Vaishali Dorsey EGFR-NON AF PALAUAN >60 Normal >=60 [facility] Comment on above: Performed By: #### C MP #### [facility] [address] [address] [address] Vaishali Dorsey Globulin (S) [Mass/Vol] 3.6 g/dL Normal [facility] Comment on above: Performed By: #### C MP #### [facility] [address] [place] [address] Dr. Vaishali Dorsey Glucose [Mass/Vol] 101 mg/dL Normal 74-106 [facility] Comment on above: Performed By: #### C MP #### [facility] [address] [place] [address] Dr. Vaishali Dorsey Potassium [Moles/Vol] 4.6 mmol/L Normal 3.5-5.1 [facility] Comment on above: Performed By: #### C MP #### [facility] [address] [place] [address] Dr. Vaishali Dorsey Protein [Mass/Vol] 7.4 g/dL Normal 6.4-8.2 [facility] Comment on above: Performed By: #### C MP #### [facility] [address] [place] [address] Dr. Vaishali Dorsey Sodium [Moles/Vol] 144 mmol/L Normal 136-145 [facility] Comment on above: Performed By: #### C MP #### [facility] [address] [place] [address] Dr. Vaishali Dorsey Urea nitrogen [Mass/Vol] 14.0 mg/dL Normal 7.0-18.0 [facility] Comment on above: Performed By: #### C MP #### [facility] [address] [address] [address] Vaishali Dorsey Urea nitrogen/Creatinin e [Mass ratio] 13.7 mg/mg Normal [facility] Comment on above: Performed By: #### C MP #### [facility] [address] [address] [address] Vaishali Dorsey PSA, FREE AND TOTAL RATIOon 04-21-2022 % Free PSA 18.9 % Normal [facility] Comment on above: Result Comment: The table [...] men. Performed By: #### P SAFREE #### [facility] [address] [place] [address] Dr. Vaishali Dorsey Prostate specific Ag [Mass/Vol] 6.5 ng/mL Critically high 0.0-4.0 [facility] Comment on above: Result Comment: Roch e ECLIA methodology. . According to the [employer] U[employer], Serum PSA should decrease and [...] disease. Performed By: #### P SAFREE #### [facility] [address] [place] [address] Dr. Vaishali Dorsey PSA, Free 1.23 ng/mL Normal N/A [facility] Comment on above: Result Comment: Roch e ECLIA methodology. Performed By: #### P SAFREE #### [facility] [address] [address] [address] 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 This test has not been FDA [...] is terminated or revoked sooner. PERFORMED BY: [place] [address] PATHOLOGIST PROSECUTING ATTORNEY KAMERON MARTIN M.D. Performed By: #### C OVID 19 [facility] #### [address] Basic Metabolic Panlon 10-22 Anion gap 12 mmol/L Normal 9-18 [facility] Comment on above: Performed By: #### I CA, CBCDIF, VITD, PTHI, CMP, URIC ####[facility] [place], [place] [phone] Calcium 8.2 mg/dL Low 8.5-10.2 [facility] Comment on above: Performed By: #### I CA, CBCDIF, VITD, PTHI, CMP, URIC ####[facility] [id number] [facility] [phone] Chloride 102 mmol/L Normal 97-105 [facility] Comment on above: Performed By: #### I CA, CBCDIF, VITD, PTHI, CMP, URIC ####[place] [address], [place] [phone] CO2 26 mmol/L Normal 22-30 [facility] Comment on above: Performed By: #### I CA, CBCDIF, VITD, PTHI, CMP, URIC ####[address] [place] [phone] Creatinine 0.98 mg/dL Normal 0.73-1.22 [facility] Comment on above: Performed By: #### I CA, CBCDIF, VITD, PTHI, CMP, URIC ####[place] [phone] eGFR (non-black) mL/min/{1.73_m2} Normal [facility] Comment on above: Result Comment: eGFR [...] I CA, CBCDIF, VITD, PTHI, CMP, URIC ####[place] [phone] Glucose mass conc 85 mg/dL Normal 74-99 [facility] [place] Comment on above: Result Comment: The English Diabetes Association (ADA) provides guidance for cutoff [...] Standards of Medical Care in Diabetes 2016, [place] Diabetes Association. Diabetes Care. 2016.39(Suppl 1). Performed By: #### I CA, CBCDIF, VITD, PTHI, CMP, URIC ####[place] [phone] Potassium molar conc 3.5 mmol/L Low 3.7-5.1 [facility] Comment on above: Performed By: #### I CA, CBCDIF, VITD, PTHI, CMP, URIC ####[place] [phone] Sodium 140 mmol/L Normal 136-144 [facility] Comment on above: Performed By: #### I CA, CBCDIF, VITD, PTHI, CMP, URIC ####[address] [place] [phone] Urea nitrogen 5 mg/dL Low 9-24 [facility] Comment on above: Performed By: #### I CA, CBCDIF, VITD, PTHI, CMP, URIC ####[place] [address] [address] [place] [phone] CBCon 10-22-2017 Erythrocyte distribution width Auto Ratio (RBC) 13.1 % Normal 11.5-15.0 [facility] Comment on above: Performed By: #### I CA, CBCDIF, VITD, PTHI, CMP, URIC ####[place] [address] [address], [place] [phone] Erythrocytes (RBC) 10*6/uL Normal <0.01 [facility] Comment on above: Performed By: #### I CA, CBCDIF, VITD, PTHI, CMP, URIC ####[place] [address] [address] [phone] Erythrocytes (RBC) 3.32 10*6/uL Low 4.20-6.00 [facility] Comment on above: Performed By: #### I CA, CBCDIF, VITD, PTHI, CMP, URIC ####[place] [address] [address] [phone] Hematocrit (HCT) 29.6 % Low 39.0-51.0 [facility] Comment on above: Performed By: #### I CA, CBCDIF, VITD, PTHI, CMP, URIC ####[place] [address] [address] [place] [phone] Hemoglobin mass conc (Bld) 9.8 g/dL Low 13.0-17.0 [facility] Comment on above: Performed By: #### I CA, CBCDIF, VITD, PTHI, CMP, URIC ####[place] [address] [address] [place] [phone] MCH 29.5 pG Normal 26.0-34.0 [facility] Comment on above: Performed By: #### I CA, CBCDIF, VITD, PTHI, CMP, URIC ####[place] [address] [address] [place] [phone] MCHC mass conc (RBC) 33.1 g/dL Normal 30.5-36.0 [facility] Comment on above: Performed By: #### I CA, CBCDIF, VITD, PTHI, CMP, URIC ####[place] [address] [address] [place] [phone] MCV 89.2 fL Normal 80.0-100.0 [facility] Comment on above: Performed By: #### I CA, CBCDIF, VITD, PTHI, CMP, URIC ####[place] [address] [place], [place] [phone] Platelet mean volume (PMV) 10.5 fL Normal 9.0-12.7 [facility] Comment on above: Performed By: #### I CA, CBCDIF, VITD, PTHI, CMP, URIC ####[facility] [place], [place] [phone] Platelets 267 10*3/uL Normal 150-400 [facility] Comment on above: Performed By: #### I CA, CBCDIF, VITD, PTHI, CMP, URIC ####[facility] [place], [place] [phone] WBC (Leukocytes) 10.19 10*3/uL Normal 3.70-11.00 [facility] Comment on above: Performed By: #### I CA, CBCDIF, VITD, PTHI, CMP, URIC ####[facility] [place], [place] [phone] CNDSon 10-22-2017 CNDS HNO ID: [id number] thor: Feliciano Santanaervice: UrologyAuthor Type: PhysicianType: Discharge SummariesFiled: 10/23/2017 8:54 AMNote Text:DISCHARGE SUMMARYPATIENT NAME: Darrell Nelson ADMISSION DATE: 10/21/2017MRN: [id number] DISCHARGE DATE: 10/22/2017Attending Physician: Feliciano Vega for [...] of this patient.SIGNATURE: Tk Abdalla MD PAGER: [phone]: October 22, 2017TIME: 9:32 AMRADHA Johnirector, Surgical Stone Disease, [facility]ic InstituteProfessor of Surgery, [facility] HospitalPager [phone]/23/2017 Normal Clevelan d [facility] PROGRESSon 10-22-2017 PROGRESS HNO ID: [id number] thor: Tk (ResNIK Newtonervice: UrologyAuthor Type: ResidentType: [...] lb 4 oz) SpO2 95% BMI 25.43 kg/b8Tbqszwtjulb max: Temp (24hrs), Av.1 ?C (98.7 ?F), Min:36.8 ?C (98.3?F), Max:37.2 ?C (99 ?F)Intake/Output 10/21/17 0700 - 10/22/17 0659 10/22/17 0700 - 10/23/17 0659 Intake (ml) 2180 -- Output (ml) 2550 650 Net (ml) -370 -650LABS:BUN (mg/dL)Date Value10/22/2017 501 801 701 912 10 Creatinine (mg/dL)Date Value10/22/2017 0.98010/21/2017 0.9201 0.9001 1.0012 1.05 Recent Labs 438WBC 10.19HB 9.8*HCT 29.6*NA 140K 3.5*CHLOR 102CO2 26GLUC 85Glucose, Urine (mg/dL)Date Value10/21/2017 Negative Bilirubin, Urine (no units)Date Value10/21/2017 Negative Ketones, Urine (no units)Date Value10/21/2017 Negative Specific [place], Ur (no units)Date Value10/21/2017 1.010 Hemoglobin/Blood ,Ur ( )Date Value10/21/2017 3+ (A) pH, Urine (no units)Date Value10/21/2017 6.0 Protein, Urine (mg/dL)Date Value10/21/2017 30 (A) Nitrites (no units)Date Value10/21/2017 Negative WBC, Urine (/HPF)Date Value10/21/2017 >25 (A) Color (no units)Date Value10/21/2017 Yellow Clarity (no units)Date Value10/21/2017 Cloudy (A) Assessment/PlanAct [facility] Problems Leukocytosis [D72.829]Mr. Nelson is a [...] 22, 2017 : 7:31 AM PAGER/CONTACT #: [phone] Normal [facility] Basic Metabolic Panlon 10-21 Anion gap 14 mmol/L Normal 9-18 [facility] Comment on above: Performed By: #### I CA, CBCDIF, VITD, PTHI, CMP, URIC ####[place] [address] [place] [phone] Calcium 8.3 mg/dL Low 8.5-10.2 [facility] Comment on above: Performed By: #### I CA, CBCDIF, VITD, PTHI, CMP, URIC ####[facility] [phone] Chloride 104 mmol/L Normal 97-105 [facility] Comment on above: Performed By: #### I CA, CBCDIF, VITD, PTHI, CMP, URIC ####[facility] [phone] CO2 25 mmol/L Normal 22-30 [facility] Comment on above: Performed By: #### I CA, CBCDIF, VITD, PTHI, CMP, URIC ####[facility] [phone] Creatinine 0.92 mg/dL Normal 0.73-1.22 [facility] Comment on above: Performed By: #### I CA, CBCDIF, VITD, PTHI, CMP, URIC ####[facility] [phone] eGFR (non-black) mL/min/{1.73_m2} Normal [facility] Comment on above: Result Comment: eGFR [...] I CA, CBCDIF, VITD, PTHI, CMP, URIC ####[facility] [place], [place] [phone] Glucose mass conc 79 mg/dL Normal 74-99 [facility] [place] Comment on above: Result Comment: The English Diabetes Association (ADA) provides guidance for cutoff [...] Standards of Medical Care in Diabetes 2016, [place] Diabetes Association. Diabetes Care. 2016.39(Suppl 1). Performed By: #### I CA, CBCDIF, VITD, PTHI, CMP, URIC ####[facility] [address], [place] [phone] Potassium molar conc 3.7 mmol/L Normal 3.7-5.1 [facility] Comment on above: Performed By: #### I CA, CBCDIF, VITD, PTHI, CMP, URIC ####[facility] [address], [place] [phone] Sodium 143 mmol/L Normal 136-144 [facility] Comment on above: Performed By: #### I CA, CBCDIF, VITD, PTHI, CMP, URIC ####[place] [address] [address] [phone] Urea nitrogen 8 mg/dL Low 9-24 [facility] Comment on above: Performed By: #### I CA, CBCDIF, VITD, PTHI, CMP, URIC ####[place] [address] [address] [place] [phone] CBC and Differentialon 10-21 Abs Baso 0.05 k/uL Normal <0.11 [facility] Comment on above: Performed By: #### I CA, CBCDIF, VITD, PTHI, CMP, URIC ####[place] [address] [address] [phone] Abs [place] 0.81 k/uL Normal <0.87 [facility] Comment on above: Performed By: #### I CA, CBCDIF, VITD, PTHI, CMP, URIC ####[place] [address] [address] [place] [phone] Abs Neut 6.30 k/uL Normal 1.45-7.50 [facility] Comment on above: Performed By: #### I CA, CBCDIF, VITD, PTHI, CMP, URIC ####[place] [address] [address] [place] [phone] Basophils/100 WBC Auto (Bld) 0.5 % Normal [facility] Comment on above: Performed By: #### I CA, CBCDIF, VITD, PTHI, CMP, URIC ####[place] [address] [address] [place] [phone] DTYPE Auto Diff Normal [facility] Comment on above: Performed By: #### I CA, CBCDIF, VITD, PTHI, CMP, URIC ####[place] [address] [address] [phone] Eosinophils 0.24 10*3/uL Normal <0.46 [facility] Comment on above: Performed By: #### I CA, CBCDIF, VITD, PTHI, CMP, URIC ####[place] [address] [address] [phone] Eosinophils/100 leukocytes 2.3 % Normal [facility] Comment on above: Performed By: #### I CA, CBCDIF, VITD, PTHI, CMP, URIC ####[place] [address] [address] [phone] Erythrocyte distribution width Auto Ratio (RBC) 13.1 % Normal 11.5-15.0 [facility] Comment on above: Performed By: #### I CA, CBCDIF, VITD, PTHI, CMP, URIC ####[place] [address] [address] [phone] Erythrocytes (RBC) 3.34 10*6/uL Low 4.20-6.00 [facility] Comment on above: Performed By: #### I CA, CBCDIF, VITD, PTHI, CMP, URIC ####[place] [address] [address] [phone] Erythrocytes (RBC) 10*6/uL Normal <0.01 [facility] Comment on above: Performed By: #### I CA, CBCDIF, VITD, PTHI, CMP, URIC ####[place] [address] [address] [phone] Erythrocytes (RBC) 0.0 /100 WBC Normal 0 [facility] Comment on above: Performed By: #### I CA, CBCDIF, VITD, PTHI, CMP, URIC ####[place] [address] [address] [phone] Hematocrit (HCT) 30.2 % Low 39.0-51.0 [facility] Comment on above: Performed By: #### I CA, CBCDIF, VITD, PTHI, CMP, URIC ####[place] [address] [address] [phone] Hemoglobin mass conc (Bld) 10.2 g/dL Low 13.0-17.0 [facility] Comment on above: Performed By: #### I CA, CBCDIF, VITD, PTHI, CMP, URIC ####[place] [address] [address] [phone] Lymphocytes 3.06 10*3/uL Normal 1.00-4.00 [facility] Comment on above: Performed By: #### I CA, CBCDIF, VITD, PTHI, CMP, URIC ####[place] [address] [address] [phone] Lymphocytes/100 leukocytes 29.3 % Normal [facility] Comment on above: Performed By: #### I CA, CBCDIF, VITD, PTHI, CMP, URIC ####[place] [address] [address] [place] [phone] MCH 30.5 pG Normal 26.0-34.0 [facility] Comment on above: Performed By: #### I CA, CBCDIF, VITD, PTHI, CMP, URIC ####[place] [address] [address] [phone] MCHC mass conc (RBC) 33.8 g/dL Normal 30.5-36.0 [facility] Comment on above: Performed By: #### I CA, CBCDIF, VITD, PTHI, CMP, URIC ####[place] [address] [address] [phone] MCV 90.4 fL Normal 80.0-100.0 [facility] Comment on above: Performed By: #### I CA, CBCDIF, VITD, PTHI, CMP, URIC ####[place] [address] [address] [phone] Monocytes/100 leukocytes 7.7 % Normal [facility] Comment on above: Performed By: #### I CA, CBCDIF, VITD, PTHI, CMP, URIC ####[place] [address] [address] [place], [place] [phone] Neutrophils/100 WBC Auto (Bld) 60.2 % Normal [facility] Comment on above: Performed By: #### I CA, CBCDIF, VITD, PTHI, CMP, URIC ####[place] [address] [address], [place] [phone] Platelet mean volume (PMV) 10.7 fL Normal 9.0-12.7 [facility] Comment on above: Performed By: #### I CA, CBCDIF, VITD, PTHI, CMP, URIC ####[address] [phone] Platelets 260 10*3/uL Normal 150-400 [facility] Comment on above: Performed By: #### I CA, CBCDIF, VITD, PTHI, CMP, URIC ####[address] [place], [place] [phone] WBC (Leukocytes) 10.46 10*3/uL Normal 3.70-11.00 [facility] Comment on above: Performed By: #### I CA, CBCDIF, VITD, PTHI, CMP, URIC ####[address] [place], [place] [phone] Protimeon 10-21-2017 INR Coag RelTime (Bld) 1.0 {INR} Normal 0.9-1.3 [facility] Comment on above: Result Comment: Laisha min K Antagonist (VKA) Therapeutic Range: INR 2 to 3 (Target INR of 2.5)Note: For patients treated with VKA drugs, such as warfarin, the [place] College of Chest [employer]icians 2012 Guideline recommends [...] al. Chest 2012, 141:7S-47SNishimura RA, et al. [facility] 2017, 70: 252-289 Performed By: #### I CA, CBCDIF, VITD, PTHI, CMP, URIC ####[place] [address] [address], [place] [phone] PT Sec 10.4 sec Normal 9.7-13.0 [facility] Comment on above: Performed By: #### I CA, CBCDIF, VITD, PTHI, CMP, URIC ####[place] [address] [address], [place] [phone] Type and Screenon 10-21-2017 ABO/RH(D) Positive Normal [facility] Comment on above: Performed By: #### I CA, CBCDIF, VITD, PTHI, CMP, URIC ####[place] [address], [place] [phone] Antibody Screen Negative Normal [facility] Comment on above: Performed By: #### I CA, CBCDIF, VITD, PTHI, CMP, URIC ####[place] [address], [place] [phone] Urinalysison 10-21-2017 Bilirubin, Urine Negative Normal Negative [facility] Comment on above: Performed By: #### I CA, CBCDIF, VITD, PTHI, CMP, URIC ####[place] [address], [place] [phone] Comments SEE COMMENT Normal [facility] Comment on above: Result Comment: Micr oscopic Examination Performed Performed By: #### I CA, CBCDIF, VITD, PTHI, CMP, URIC ####[place] [address] [address] [place] [phone] Erythrocytes (RBC) 10*6/uL Critically abnormal 0-3 [facility] Comment on above: Performed By: #### I CA, CBCDIF, VITD, PTHI, CMP, URIC ####[place] [address] [phone] Hemoglobin mass conc (Bld) 3+ Critically abnormal Negative [facility] Comment on above: Performed By: #### I CA, CBCDIF, VITD, PTHI, CMP, URIC ####[place] [address] [address] [phone] Leukest 3+ Critically abnormal Negative [facility] Comment on above: Performed By: #### I CA, CBCDIF, VITD, PTHI, CMP, URIC ####[place] [address] [address] [phone] pH of blood 6.0 [pH] Normal 4.5-8.0 [facility] Comment on above: Performed By: #### I CA, CBCDIF, VITD, PTHI, CMP, URIC ####[place] [address] [address] [place] [phone] Protein, Urine 30 mg/dL Critically abnormal Negative [facility] [facility] Comment on above: Performed By: #### I CA, CBCDIF, VITD, PTHI, CMP, URIC ####[place] [address] [address] [phone] Specific [place], Ur 1.010 Normal 1.005-1.03 0 [facility] Comment on above: Performed By: #### I CA, CBCDIF, VITD, PTHI, CMP, URIC ####[place] [address] [address] [phone] Urine Kelby Comment SEE COMMENT Normal [facility] Comment on above: Result Comment: N/A Performed By: #### I CA, CBCDIF, VITD, PTHI, CMP, URIC ####[facility] [address]ks[address] AveClevelEddie Ville [phone] Urine, clarity Cloudy Critically abnormal Clear [facility] Comment on above: Performed By: #### I CA, CBCDIF, VITD, PTHI, CMP, URIC ####[facility] AveClevelcarolinas continuecare [facility], [place] [phone] Urine, color Yellow Normal Yellow [facility] Comment on above: Performed By: #### I CA, CBCDIF, VITD, PTHI, CMP, URIC ####[facility] Sholkkshizyz[address] AveClevelEddie Ville [phone] Urine, epithelial cells in sediment SEE COMMENT Normal [facility] Comment on above: Result Comment: FewS quamous Epithelial Cells Performed By: #### I CA, CBCDIF, VITD, PTHI, CMP, URIC ####[facility] Rvdag[address]zdwwm[address] AveClevelEddie Ville [phone] Urine, glucose presence Negative Normal Negative [facility] Comment on above: Performed By: #### I CA, CBCDIF, VITD, PTHI, CMP, URIC ####[facility] Ltmwpwaizgmz[address] AveClevelandMichelle V[place] [phone] Urine, ketones presence Negative Normal Negative [facility] Comment on above: Performed By: #### I CA, CBCDIF, VITD, PTHI, CMP, URIC ####[facility] Eetmfev[address]wa[address] AveClevelandMichelle [place] [phone] Urine, nitrite presence Negative Normal Negative [facility] Comment on above: Performed By: #### I CA, CBCDIF, VITD, PTHI, CMP, URIC ####[facility] Ygs[address]zd[address] AveClevelandElaine Ville [phone] Urine, urobilinogen Normal Normal Normal [facility] Comment on above: Performed By: #### I CA, CBCDIF, VITD, PTHI, CMP, URIC ####[place] [address] [place], [place] [phone] WBC (Leukocytes) 10*3/uL Critically abnormal 0-5 [facility] Comment on above: Performed By: #### I CA, CBCDIF, VITD, PTHI, CMP, URIC ####[facility], [place] [phone] Urine Cultureon 10-21-2017 Urine culture, bacteria Sp. Request/Comment: - Specimen received in preservative Culture Result - No growth (<1,000 CFU/ml) Normal [facility] Comment on above: Performed By: #### I CA, CBCDIF, VITD, PTHI, CMP, URIC ####[facility] [place], [place] [phone] HISTORY PHYSICALon 8 HISTORY PHYSICAL HNO ID: [id number] thor: Tk (Res) NIK Abdallaervice: UrologyAuthor Type: ResidentType: HANDPFiled: 10/21/2017 2:31 PMNote Text:HANDP: UROLOGY SERVICENAME: Darrell CmdMRN: [id number]: [id number] DATE: 10/19/2017SERVICE TIME: 5:04 AMPRIMARY CARE PHYSICIAN: Abigail Sanchez, [facility] AND [facility]. Alvin is a 67 year old male [...] with Dr. Adarsh Abdalla III, MDUrology PGY-2Pager: [phone] 201710:00Overnight and on weekends please page [phone] OF PRESENT ILLNESSMrBraden Nelson is a 67 [...] and 14mm in R renal pelvis Normal [facility] Basic Metabolic Panlon 10-13 Anion gap 12 mmol/L Normal -18 [facility] Comment on above: Performed By: #### I CA, CBCDIF, VITD, PTHI, CMP, URIC ####[facility] [address] [place], [place] [phone] Calcium 8.2 mg/dL Low 8.5-10.2 [facility] Comment on above: Performed By: #### I CA, CBCDIF, VITD, PTHI, CMP, URIC ####[facility] [address] [place], [place] [phone] Chloride 103 mmol/L Normal 97-105 [facility] Comment on above: Performed By: #### I CA, CBCDIF, VITD, PTHI, CMP, URIC ####[place] [address] [address] AvVincent [place] [phone] CO2 25 mmol/L Normal 22-30 [facility] Comment on above: Performed By: #### I CA, CBCDIF, VITD, PTHI, CMP, URIC ####[place] [address] [address]Vincent [place] [phone] Creatinine 0.90 mg/dL Normal 0.73-1.22 [facility] Comment on above: Performed By: #### I CA, CBCDIF, VITD, PTHI, CMP, URIC ####[place] [address] [place] [phone] eGFR (non-black) mL/min/{1.73_m2} Normal [facility] Comment on above: Performed By: #### I CA, CBCDIF, VITD, PTHI, CMP, URIC ####[place] [address] [place] [phone] Result Comment: eGFR (Estimated GFR) Units of [...] Glucose mass conc 95 mg/dL Normal 74-99 [facility] [place] Comment on above: Result Comment: The English Diabetes Association (ADA) provides guidance for cutoff [...] Standards of Medical Care in Diabetes 2016, English Diabetes Association. Diabetes Care. 2016.39(Suppl 1). Performed By: #### I CA, CBCDIF, VITD, PTHI, CMP, URIC ####[place] [phone] Potassium molar conc 3.9 mmol/L Normal 3.7-5.1 [facility] Comment on above: Performed By: #### I CA, CBCDIF, VITD, PTHI, CMP, URIC ####[address] [place] [phone] Sodium 140 mmol/L Normal 136-144 [facility] Comment on above: Performed By: #### I CA, CBCDIF, VITD, PTHI, CMP, URIC ####[place] [address] [phone] Urea nitrogen 7 mg/dL Low 9-24 [facility] Comment on above: Performed By: #### I CA, CBCDIF, VITD, PTHI, CMP, URIC ####[address] [place] [phone] CBC and Differentialon 10-13 Abs Baso 0.03 k/uL Normal <0.11 [facility] Comment on above: Performed By: #### I CA, CBCDIF, VITD, PTHI, CMP, URIC ####[place] [address] [place] [phone] Abs [place] 1.28 k/uL High <0.87 [facility] Comment on above: Performed By: #### I CA, CBCDIF, VITD, PTHI, CMP, URIC ####[place] [address] [address] [phone] Abs Neut 8.97 k/uL High 1.45-7.50 [facility] Comment on above: Performed By: #### I CA, CBCDIF, VITD, PTHI, CMP, URIC ####[place] [address] [address] [phone] Basophils/100 WBC Auto (Bld) 0.2 % Normal [facility] Comment on above: Performed By: #### I CA, CBCDIF, VITD, PTHI, CMP, URIC ####[place] [address] [address] [phone] DTYPE Auto Diff Normal [facility] Comment on above: Performed By: #### I CA, CBCDIF, VITD, PTHI, CMP, URIC ####[place] [address] [address] [phone] Eosinophils 0.20 10*3/uL Normal <0.46 [facility] Comment on above: Performed By: #### I CA, CBCDIF, VITD, PTHI, CMP, URIC ####[place] [address] [address]in[address] [phone] Eosinophils/100 leukocytes 1.6 % Normal [facility] Comment on above: Performed By: #### I CA, CBCDIF, VITD, PTHI, CMP, URIC ####[place] [address] [address] [phone] Erythrocyte distribution width Auto Ratio (RBC) 12.4 % Normal 11.5-15.0 [facility] Comment on above: Performed By: #### I CA, CBCDIF, VITD, PTHI, CMP, URIC ####[place] [address] [address] [phone] Erythrocytes (RBC) 4.29 10*6/uL Normal 4.20-6.00 [facility] Comment on above: Performed By: #### I CA, CBCDIF, VITD, PTHI, CMP, URIC ####[place] [address] [address] [phone] Erythrocytes (RBC) 0.0 /100 WBC Normal 0 [facility] Comment on above: Performed By: #### I CA, CBCDIF, VITD, PTHI, CMP, URIC ####[place] [address] [address] [phone] Erythrocytes (RBC) 10*6/uL Normal <0.01 [facility] Comment on above: Performed By: #### I CA, CBCDIF, VITD, PTHI, CMP, URIC ####[place] [address] [address]Vin[address] [place] [phone] Hematocrit (HCT) 38.8 % Low 39.0-51.0 [facility] Comment on above: Performed By: #### I CA, CBCDIF, VITD, PTHI, CMP, URIC ####[place] [address] [address]Vin[address] [phone] Hemoglobin mass conc (Bld) 12.7 g/dL Low 13.0-17.0 [facility] Comment on above: Performed By: #### I CA, CBCDIF, VITD, PTHI, CMP, URIC ####[place] [address] [address] [phone] Lymphocytes 2.16 10*3/uL Normal 1.00-4.00 [facility] Comment on above: Performed By: #### I CA, CBCDIF, VITD, PTHI, CMP, URIC ####[place] [address] [address] [phone] Lymphocytes/100 leukocytes 17.1 % Normal [facility] Comment on above: Performed By: #### I CA, CBCDIF, VITD, PTHI, CMP, URIC ####[place] [address] [place] [phone] MCH 29.6 pG Normal 26.0-34.0 [facility] Comment on above: Performed By: #### I CA, CBCDIF, VITD, PTHI, CMP, URIC ####[place] [address] [address] [place] [phone] MCHC mass conc (RBC) 32.7 g/dL Normal 30.5-36.0 [facility] Comment on above: Performed By: #### I CA, CBCDIF, VITD, PTHI, CMP, URIC ####[place] [address] [address] [place] [phone] MCV 90.4 fL Normal 80.0-100.0 [facility] Comment on above: Performed By: #### I CA, CBCDIF, VITD, PTHI, CMP, URIC ####[place] [phone] Monocytes/100 leukocytes 10.1 % Normal [facility] Comment on above: Performed By: #### I CA, CBCDIF, VITD, PTHI, CMP, URIC ####[place] [address] [address] [place] [phone] Neutrophils/100 WBC Auto (Bld) 71.0 % Normal [facility] Comment on above: Performed By: #### I CA, CBCDIF, VITD, PTHI, CMP, URIC ####[place] [address] [place] [phone] Platelet mean volume (PMV) 11.3 fL Normal 9.0-12.7 [facility] Comment on above: Performed By: #### I CA, CBCDIF, VITD, PTHI, CMP, URIC ####[address] [place] [phone] Platelets 138 10*3/uL Low 150-400 [facility] Comment on above: Result Comment: Resu lt checked and verifiedNo clot detected. Performed By: #### I CA, CBCDIF, VITD, PTHI, CMP, URIC ####[address] [phone] WBC (Leukocytes) 12.64 10*3/uL High 3.70-11.00 [facility] Comment on above: Performed By: #### I CA, CBCDIF, VITD, PTHI, CMP, URIC ####[address] [phone] CNDSon 10-13-2017 CNDS HNO ID: [id number] thor: Feliciano KumarbleService: UrologyAuthor Type: PhysicianType: Discharge SummariesFiled: 10/15/2017 3:53 PMNote Text:The [address] [phone] ([phone]) [facility] O N F I D E N T I A L I N F O R M A T I O N [facility] DOCUMENTDISCHARGE SUMMARYPatient Name: Darrell Silverio Date: 10/11/2017Discharge [...] hours for 3 days. Take 1000mg Tylenol ([id number] tablets) every 6 hours for 3 days. [...] Dorantes, MDDirector, Surgical Stone Disease, [facility] InstituteProfessor of Surgery, [facility] of MedicinePager Normal [facility] PLAN OF CAREon 10-13-2017 PLAN OF CARE HNO ID: [id number] thor: Angelique Serrano (Shot Core Drill Operator Helper)Service: (none)Author Type: (none)Type: Plan of CareFiled: 10/13/2017 8:44 AMNote Text:REGIONAL ECONOMIST BEDSIDE DELIVERY SURVEY1. Patient to use [facility] Bedside Delivery - NO prefer ownpharmacy2. If fax, patient would like us to fax prescriptions to [facility] a. Pharmacy: b. Location: c. Phone:3. Insurance card on file - NO4. Credit card for payment - NO Normal [facility] PROGRESSon 10-13-2017 PROGRESS HNO ID: [id number] thor: Shelly (Air Traffic Control Manager) O'NeillService: UrologyAuthor Type: Nurse PractitionerType: Progress NotesFiled: 10/13/2017 11:00 AMNote Text:UROLOGY SERVICE PROGRESS NOTEName: Darrell CmdBed: G090 013/I717-67JTP: [id number]: October 13, 2017ASSESSMENT AND PLANDarrell Emmanuelle Nelson is a 67 year old male with history of HTN, nephrolithiasisnow POD#2 s/p PCNL and R JJ stent placement.#Neuro-Pain controlled on Tylenol#CV/Flss-MTH-Orz stable-Continue incentive spirometer use#GI-Diet - GI Soft/regular diet; tolerating without N/V#-Scr 0.90-UOP good-Christian: removed- voiding without difficulty#FEN-IVF NS @ 125 ml/hr#Activity - OOB to chair and Ambulate with assistance#DVT prophylaxis - SCDs, Pharmacologic DVT prophylaxis contraindicated dueto bleeding risk#Antibiotics - Perioperative antibiotics - Ancef#Secondary Dx and ComplicationsHTN- c/w home medications; [facility]#Discharge teaching - routine teaching#Disposition - Discharge home todaySUBJECTIVE-Pain:controlled -CP/SOB: Denies-N/V:Denies-Bowel function:+Flatus. No BM-Ambulating: YesBrief HPI: No acute events throughout the night. Denies fever, chills.Voiding without difficulty. Doing well. Eager for discharge home.OBJECTIVEVital SignsBP 154/79 Pulse 89 Temp 36.9 ?C (98.4 ?F) (Oral) Resp 20 Ht 175.3cm (5' 9 ) Wt 80 kg (176 lb 5.9 oz) SpO2 96% BMI 26.05 kg/u3Cnlzl and OutputIntake/Output Summary (Last 24 hours) at 10/13/17 1047Last data filed at 10/13/17 1040 Gross per 24 hourIntake 3782 mlOutput 3250 mlNet 532 mlDrains:noneUrine: 3450ccPhysical ExamGeneral: Well appearing male, lying in bed in NADHEENT: Normocephalic, atraumaticCV:: RR, hemodynamically stable, well-perfusedResp: breathing comfortably on RA. CTAB.GI: Soft, non-tender, non-distended.: voiding spontaneouslyExtremities: No cyanosis or clubbing, No edemaNeuro: Alert and orientedPsych: Normal affectRecent Labs 0 650WBC 12.64* 14.41* 16.46*HB 12.7* 11.9* 13.7HCT 38.8* [...] mL ORAL q 6 H PRNphenol 1 Pax (CHLORASEPTIC) 1 Pax MUCOUS MEMBRANE (TOPICAL MOUTH ANDTHROAT) q 2 H PRNsimethicone, chewable 80 mg tab(s) (MYLICON) 80 mg ORAL q 8 H PRNoxybutynin 5 mg tab(s) (DITROPAN) 5 mg ORAL q 8 H PRNoxyCODONE IR 5-10 mg tab(s) (ROXICODONE) 5-10 mg ORAL q 4 H PRNNo past medical history on file.[facility]/17IMPRESSION:NO ACUTE DISEASESIGNATURE: Shelly Cote CNP PAGER: [phone]: October 13, 2017TIME: 9:45amPlease page [phone] on weekends and after 4pm on weekdays Normal [facility] PROGRESS HNO ID: [id number] thor: Miguel (Res) BrykService: UrologyAuthor Type: ResidentType: Progress NotesFiled: 10/13/2017 6:47 AMNote Text:UROLOGY RESIDENT PROGRESS NOTEName: Darrell Handley BoydBed: G090 013/N014-72RNS: [id number]: October 13, 2017 =====SUBJECTIVE- no acute events overnight-Pain: controlled-N/V : No- Tolerated diet, ambulating, +ROBF ======OBJECTIVEVital SignsPatient Vitals for the past 8 hrs: BP Temp Temp src Pulse Resp WhI33010/13/17 0300 144/71 36.7 ?C (98 ?F) Oral [...] mL ORAL q 6 H PRNphenol 1 Pax (CHLORASEPTIC) 1 Pax MUCOUS MEMBRANE (TOPICAL MOUTH ANDTHROAT) q 2 [...] Perioperative antibiotics - ancef#ComplicationsNone#Seconda ry Dx-HTN- home losartanState [facility] urocit-K held#Discharge teaching - may need home going christian care teaching#Disposition - d/c todayThe patient's progress, lab findings, vitals, and clinical decision makingas documented above to be discussed with staff Dr. Schroeder. ========Miguel Zapata M.D.Urology PGY-2Pager: [phone] 20176:47 AMOvernight and on weekends please page [phone] Normal [facility] APTTon 10-12-2017 aPTT 27.4 s Normal 23.0-32.4 [facility] Comment on above: Result Comment: Unfr [...] laboratory APTT reagent in use throughout the [facility]. Performed By: #### P T, PTT, MG1 ####[facility] AveCRyan Ville [phone] Basic Metabolic Panlon 10-12 Anion gap 8 mmol/L Low 9-18 [facility] Comment on above: Performed By: #### C BCDIF, BMP ####[place] [address] AveCRyan [place]ille [phone] Calcium 8.2 mg/dL Low 8.5-10.2 [facility] Comment on above: Performed By: #### C BCDIF, BMP ####[place] [address] [address] [place] [phone] Chloride 103 mmol/L Normal 97-105 [facility] Comment on above: Performed By: #### C BCDIF, BMP ####[facility] AveCRyan [place]ille [phone] CO2 31 mmol/L High 22-30 [facility] Comment on above: Performed By: #### C BCDIF, BMP ####[facility]CRyan [place] [phone] Creatinine 1.00 mg/dL Normal 0.73-1.22 [facility] Comment on above: Performed By: #### C BCDIF, BMP ####[facility] AveClevelRobert Ville [phone] eGFR (non-black) mL/min/{1.73_m2} Normal [facility] Comment on above: Performed By: #### C BCDIF, BMP ####[facility]CRyan [place]ille [phone] Result Comment: eGFR (Estimated GFR) Units of [...] Glucose mass conc 100 mg/dL High 74-99 [facility] [place] Comment on above: Result Comment: The English Diabetes Association (ADA) provides guidance for cutoff [...] Standards of Medical Care in Diabetes 2016, English Diabetes Association. Diabetes Care. 2016.39(Suppl 1). Performed By: #### CHARLENE SALAZAR ####[facility] [place] [address] [phone] Potassium molar conc 4.0 mmol/L Normal 3.7-5.1 [facility] Comment on above: Performed By: #### CHARLENE SALAZAR ####[facility] [place], [place] [phone] Sodium 142 mmol/L Normal 136-144 [facility] Comment on above: Performed By: #### CHARLENE SALAZAR ####[facility] [place], [place] [phone] Urea nitrogen 9 mg/dL Normal 9-24 [facility] Comment on above: Performed By: #### C CHARLENE CONDON ####[place] [address], [place] [phone] CASE MGT INIT Daphnie 2017 CASE MGT INIT MING HNO ID: [id number]: Brigette (Rn) EMILIANO Museervice: Care ManagementAuthor Type: Registered NurseType: Care Mgt Initial AssessmentFiled: 10/12/2017 4:00 PMNote Text:CARE MANAGEMENT: ASSESSMENT AND DISCHARGE PLANSERVICE DATE: 10/12/2017SERVICE TIME: 3:57 PMPRIMARY CARE PHYSICIAN:Abigail Sanchez, ROOPAhone: [phone] STATUS: Ambulatory SurgeryPOTENTIAL DISCHARGE PLANSNo Services IndicatedPatient/Tempering Machine Operator Stated Goals: return homeNeeds Prior to Discharge: NoneHealth Insurance: Medical [place] ServicesLiving Arrangement: HomeLives With: SpouseFinancial Resources: RetiredPrimary Contact:Extended Emergency Contact InformationPrimary Emergency Contact: Ansley NelsonAddress: [address] [place], [place] [address] [place] [address] Guwwof Envobfvl: SpouseSupportive: YesOther Important Patient Contacts: NoneCAREGIVER ASSESSMENT:Caregiver [...] days? NoHas the Patient Been in a Alf Facility in the Past 30 days? NoFREEDOM OF CHOICE EXPLAINED:N/AHANDOFF COMMUNICATION:n/aAdm post op after pcnl. Spoke w/ pt at bedside. No skilled dc needsidentified, was independent prior to adm. Chief complaint is of his christian.Please contact child care attendant if needs arise prior to dc.SIGNATURE: Brigette Muse RN PATIENT NAME: Darrell ElizaldeATE: October 12, 2017 : 3:57 PM PAGER/CONTACT #: [phone] Normal [facility] CBC and Differentialon 10-12 Abs Baso 0.03 k/uL Normal <0.11 [facility] Comment on above: Performed By: #### C CHARLENE CONDON ####[facility] [place], [place] [phone] Abs [place] 1.45 k/uL High <0.87 [facility] Comment on above: Performed By: #### C CHARLENE CONDON ####[facility] [address]sf[address]amj[address] AveCStratford, [place] [phone] Abs Neut 9.96 k/uL High 1.45-7.50 [facility] Comment on above: Performed By: #### C CHARLENE CONDON ####[facility] [address] [place], [place] [phone] Basophils/100 WBC Auto (Bld) 0.2 % Normal [facility] Comment on above: Performed By: #### C BCDIF, BMP ####[facility] AveClevelandElaine Ville [phone] DTYPE Auto Diff Normal [facility] Comment on above: Performed By: #### C BCDIF, BMP ####[facility] AveClevelandCourtland, [place] [phone] Eosinophils 0.06 10*3/uL Normal <0.46 [facility] Comment on above: Performed By: #### C BCDIF, BMP ####[place] [address] [address] AveClevelRobert Ville [phone] Eosinophils/100 leukocytes 0.4 % Normal [facility] Comment on above: Performed By: #### C BCDIF, BMP ####[place] [address] [address]CRyan [place] [phone] Erythrocyte distribution width Auto Ratio (RBC) 12.6 % Normal 11.5-15.0 [facility] Comment on above: Performed By: #### C BCDIF, BMP ####[place] [address] [address]CR[address] [place] [phone] Erythrocytes (RBC) 0.0 /100 WBC Normal 0 [facility] Comment on above: Performed By: #### C BCDIF, BMP ####[place] [address] [address] [place] [phone] Erythrocytes (RBC) 3.97 10*6/uL Low 4.20-6.00 [facility] Comment on above: Performed By: #### C BCDIF, BMP ####[place] [address] [address] AveClevelMcGee, [place] [phone] Erythrocytes (RBC) 10*6/uL Normal <0.01 [facility] Comment on above: Performed By: #### C BCDIF, BMP ####[place] [address] [address] AveClevelMc[place], [place] [phone] Hematocrit (HCT) 35.9 % Low 39.0-51.0 [facility] Comment on above: Performed By: #### C BCDIF, BMP ####[place] [address] [address]CR[address] [place] [phone] Hemoglobin mass conc (Bld) 11.9 g/dL Low 13.0-17.0 [facility] Comment on above: Performed By: #### C BCDIF, BMP ####[address] AvVincent Ville [phone] Lymphocytes 2.91 10*3/uL Normal 1.00-4.00 [facility] Comment on above: Performed By: #### C BCDIF, BMP ####[address]CRyan [address]ille [phone] Lymphocytes/100 leukocytes 20.2 % Normal [facility] Comment on above: Performed By: #### C BCDIF, BMP ####[address]CRyan [address] [phone] MCH 30.0 pG Normal 26.0-34.0 [facility] Comment on above: Performed By: #### C BCDIF, BMP ####[place] [phone] MCHC mass conc (RBC) 33.1 g/dL Normal 30.5-36.0 [facility] Comment on above: Performed By: #### C BCDIF, BMP ####[place] [address] [address] [phone] MCV 90.4 fL Normal 80.0-100.0 [facility] Comment on above: Performed By: #### C BCDIF, BMP ####[address]CRyan [address] [phone] Monocytes/100 leukocytes 10.1 % Normal [facility] Comment on above: Performed By: #### C BCDIF, BMP ####[address]CRyan [address] [phone] Neutrophils/100 WBC Auto (Bld) 69.1 % Normal [facility] Comment on above: Performed By: #### C ROSEANNA, BMP ####[address] [phone] Platelet mean volume (PMV) 11.2 fL Normal 9.0-12.7 [facility] Comment on above: Performed By: #### C ROSEANNA, BMP ####[address] [phone] Platelets 124 10*3/uL Low 150-400 [facility] Comment on above: Result Comment: Resu lt checked and verifiedNo clot detected. Performed By: #### C ROSEANNA, BMP ####[address] [phone] WBC (Leukocytes) 14.41 10*3/uL High 3.70-11.00 [facility] Comment on above: Performed By: #### C ROSEANNA, BMP ####[address] [phone] Magnesiumon 10-12-2017 Magnesium 1.7 mg/dL Normal 1.7-2.3 [facility] Comment on above: Performed By: #### P T, PTT, MG1 ####[address] [phone] PROGRESSon 10-12-2017 PROGRESS HNO ID: [id number] thor: Feliciano Santanaervice: (none)Author Type: PhysicianType: Progress NotesFiled: 10/12/2017 1:40 PMNote Text:STAFF UROLOGY NOTE:Patient's Hb dropped nearly 2 grams post-op and his urine was too bloodythis morning for voiding trial or discharge. Will plan to keep in houseanother day.Feliciano Schroeder, MDDirector, Surgical Stone Disease, [facility]rologic InstituteProfessor of Surgery, [facility] HospitalPager [phone] Normal [facility] d [facility] PROGRESS HNO ID: [id number] thor: Shelly Cabrera) O'NeillService: UrologyAuthor Type: Nurse PractitionerType: Progress NotesFiled: 10/12/2017 1:31 PMNote Text:UROLOGY SERVICE PROGRESS NOTEName: Darrell CmdBed: G090 013/M612-47BFR: [id number]: October 12, 2017ASSESSMENT AND PLANMarvin Emmanuelle Nelson is a 67 year old male with history of HTN, nephrolithiasisnow POD#1 s/p PCNL and R JJ stent placement.#Neuro-Pain controlled on Tylenol#CV/Rfug-DKC-Ppb stable#GI-Diet - GI Soft/regular diet; tolerating without N/V+Flatus. 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#FEN-IVF NS @ 125 ml/hr#Activity - [...] lb 5.9 oz) SpO2 95% BMI 26.05 kg/p0Skhpa and OutputIntake/Output Summary (Last 24 hours) at 10/12/17 1302Last data filed at 10/12/17 1000 Gross per 24 hourIntake 4023 mlOutput 1975 mlNet 2048 mlDrains:NoneUrine: 1625ccPhysical ExamGeneral: Well appearing male in NADHEENT: Normocephalic, atraumaticCV:: RRR, hemodynamically stable, well-perfusedResp: breathing comfortably on RA.GI: Soft, nontender, nondistended.: Christian catheter draining environmental services technician red urineExtremities: No cyanosis or clubbing, No [...] mL ORAL q 6 H PRNphenol 1 Pax (CHLORASEPTIC) 1 Pax MUCOUS MEMBRANE (TOPICAL MOUTH ANDTHROAT) q 2 H PRNsimethicone, chewable 80 mg tab(s) (MYLICON) 80 mg ORAL q 8 H PRNoxybutynin 5 mg tab(s) (DITROPAN) 5 mg ORAL q 8 H PRNoxyCODONE IR 5-10 mg tab(s) (ROXICODONE) 5-10 mg ORAL q 4 H PRNNo past medical history on file.ImagingCXR 10/11/17IMPRESSION:NO ACUTE DISEASESIGNATURE: Shelly Cote CNP PAGER: [phone]: October 12, 2017TIME: 11:15amPlease page [phone] on weekends and after 4pm on weekdays [facility] PROGRESS HNO ID: [id number] thor: Miguel (Res) Vernaervice: UrologyAuthor Type: ResidentType: Progress NotesFiled: 10/12/2017 6:47 AMNote Text:UROLOGY RESIDENT PROGRESS NOTEName: Darrell Handley BoydBed: G090 013/X530-38NIX: [id number]: October 12, 2017 =====SUBJECTIVE- no acute events overnight-Pain: controlled-N/V : No- Tolerated clears, eager for food =====OBJECTIVEVital SignsPatient Vitals for the past 8 hrs: BP Temp Temp src Pulse Resp SpO2 Height Lghncx63/10/18 1922 148/81 36.7 ?C (98.1 ?F) Oral [...] affectLab CBC, Coags, BMP, Mg, PhosRecent Labs 10/11/1815WBC 14.41* 16.46*HB 11.9* 13.7HCT 35.9* 39.7PLT 124* 147*INR 1.0 --APTT 27.4 --NA 142 --K 4.0 --CHLOR 103 --CO2 31* --BUN 9 --CREAT 1.00 --GLUC 100* --CA 8.2* --MG 1.7 --ImagingCXR 1- The heart size is normal. ?There is [...] mL ORAL q 6 H PRNphenol 1 Pax (CHLORASEPTIC) 1 Pax MUCOUS MEMBRANE (TOPICAL MOUTH ANDTHROAT) q 2 [...] staff Dr. Schroeder. ========Miguel Zapata M.D.Urology PGY-2Pager: [phone] 2017Overnight and on weekends please page [phone] Normal [facility] Protimeon 10-12-2017 INR Coag RelTime (Bld) 1.0 {INR} Normal 0.9-1.3 [facility] Comment on above: Result Comment: Laisha min K Antagonist (VKA) Therapeutic Range: INR 2 to 3 (Target INR of 2.5)Note: For patients treated with VKA drugs, such as warfarin, the [employer] 2012 Guideline recommends [...] 2.5 to 3.5 (target INR of 3).Tammy ORDONEZ, et al. Chest 2012, 141:7S-47SNishimgia RA, et al. JACC 2017, 70: 252-289 Performed By: #### P T, PTT, MG1 ####[facility] [address] [place], [place] [phone] PT Sec 10.8 sec Normal 9.7-13.0 [facility] Comment on above: Performed By: #### P T, PTT, MG1 ####[facility] [address] [place], [place] [phone] ANES Woody 10-11-2017 ANES POST HNO ID: [id number] thor: Teresita RosadoSermarlenye: AnesthesiologyAuthor Type: PhysicianType: Anesthesia [...] 11, 2017 : 4:07 PM PAGER/CONTACT #: [phone] [facility] BRIEF OP NOTon 10-11-2017 BRIEF OP NOT HNO ID: [id number] thor: Miguel (Sudeep) IkekService: UrologyAuthor Type: ResidentType: Brief Op NoteFiled: 10/11/2017 3:17 PMNote Text:UROLOGY BRIEF OPERATIVE NOTELOG ID: [id number]/Procedure Date: 10/11/2017Incision/Procedure Start Time: 1:38 PMIncision Close/Procedure [...] 30 FrenchTract Dilation Device: BalloonSurgeon(s)/Proceduralist (s) and Global Process Owner(s):Surgeon(s) and Role: * Feliciano Schroeder - Primary * Miguel Fritz) Benny - Resident - Assisting * Damon Cintron) Katerine - FellowNo Additional StaffAnesthesia: GeneralFLUIDSIntake: 1200ccUrine Output: n/a, irrigationEstimated Blood Loss: 50 mlsAccidental punctures or Lacerations: noneComplications: NoneDrains: Christian, 20fr coude tipImplants: [id number] JJ ureteral stentCultures: NoneFindings: Soft stones in R Renal pelvis and R lower pole (>3cm). Lowerpole access. Stone free at end of the case.Specimens:Specimen ID Type Site Comments Sent Toother Stone stones sent to PACU with patient OtherPost-Op Plan of Care:To RNFSIGNATURE: Miguel Zapata MD PATIENT NAME: Darrell ElizaldeATE: October 11, 2017 : 3:11 PM PAGER/CONTACT #: [phone] after hours issues, please call the on-call urology pager [phone] Normal [facility] CBC and Differentialon 10-11 Abs Baso 0.03 k/uL Normal <0.11 [facility] Comment on above: Performed By: #### C BCDIF ####[place] [phone] Abs [place] 1.18 k/uL High <0.87 [facility] Comment on above: Performed By: #### C BCDIF ####[place] [address] [address] [place] [phone] Abs Neut 12.38 k/uL High 1.45-7.50 [facility] Comment on above: Performed By: #### C BCDIF ####[place] [address] [address] [place] [phone] Basophils/100 WBC Auto (Bld) 0.2 % Normal [facility] Comment on above: Performed By: #### C BCDIF ####[place] [phone] DTYPE Auto Diff Normal [facility] Comment on above: Performed By: #### C BCDIF ####[place] [phone] Eosinophils 0.06 10*3/uL Normal <0.46 [facility] Comment on above: Performed By: #### C BCDIF ####[place] [address] [address] [place] [phone] Eosinophils/100 leukocytes 0.4 % Normal [facility] Comment on above: Performed By: #### C BCDIF ####[place] [address] [address] [phone] Erythrocyte distribution width Auto Ratio (RBC) 12.4 % Normal 11.5-15.0 [facility] Comment on above: Performed By: #### C BCDIF ####[place] [address] [address], [place] [phone] Erythrocytes (RBC) 0.0 /100 WBC Normal 0 [facility] Comment on above: Performed By: #### C BCDIF ####[place] [address] [address] [place] [phone] Erythrocytes (RBC) 10*6/uL Normal <0.01 [facility] Comment on above: Performed By: #### C BCDIF ####[place] [address] [address] [place] [phone] Erythrocytes (RBC) 4.42 10*6/uL Normal 4.20-6.00 [facility] Comment on above: Performed By: #### C BCDIF ####[address] Av[address]incent Ville [phone] Hematocrit (HCT) 39.7 % Normal 39.0-51.0 [facility] Comment on above: Performed By: #### C BCDIF ####[address] Av[address]incent V[place] [phone] Hemoglobin mass conc (Bld) 13.7 g/dL Normal 13.0-17.0 [facility] Comment on above: Performed By: #### C BCDIF ####[place] [phone] Lymphocytes 2.81 10*3/uL Normal 1.00-4.00 [facility] Comment on above: Performed By: #### C BCDIF ####[address]in[address] [place] [phone] Lymphocytes/100 leukocytes 17.1 % Normal [facility] Comment on above: Performed By: #### C BCDIF ####[place] [address] [address] [place] [phone] MCH 31.0 pG Normal 26.0-34.0 [facility] Comment on above: Performed By: #### C BCDIF ####[place] [address] [address], [place] [phone] MCHC mass conc (RBC) 34.5 g/dL Normal 30.5-36.0 [facility] Comment on above: Performed By: #### C BCDIF ####[facility], [place] [phone] MCV 89.8 fL Normal 80.0-100.0 [facility] Comment on above: Performed By: #### C BCDIF ####[place] [address] [address], [place] [phone] Monocytes/100 leukocytes 7.2 % Normal [facility] Comment on above: Performed By: #### C BCDIF ####[place] [address] [address], [place] [phone] Neutrophils/100 WBC Auto (Bld) 75.1 % Normal [facility] Comment on above: Performed By: #### C BCDIF ####[place] [address] [address], [place] [phone] Platelet mean volume (PMV) 11.3 fL Normal 9.0-12.7 [facility] Comment on above: Performed By: #### C BCDIF ####[place] [address] [address], [place] [phone] Platelets 147 10*3/uL Low 150-400 [facility] Comment on above: Performed By: #### C BCDIF ####[place] [address] [address], [place] [phone] WBC (Leukocytes) 16.46 10*3/uL High 3.70-11.00 [facility] Comment on above: Performed By: #### C BCDIF ####[facility], [place] [phone] Calculi Analysison 8 Calculus Type stone Normal [facility] Comment on above: Performed By: #### I CA, CBCDIF, VITD, PTHI, CMP, URIC ####[facility], [place] [phone] Note (NOTE) Normal [facility] Comment on above: Result Comment: Calc ulus Color: OFF WHITECalculus Size & Weight: MULTIPLE PIECES, 0.5788 GRAMSComposition: CALCIUM PHOSPHATE - 60% CALCIUM OXALATE MONOHYDRATE - 30% MINOR COMPONENTS - 10%This test was developed and its performance characteristicsdetermined by the [facility][Note 3][facility]Labor[facility] [place] ([facility]).It has not been cleared or approved by the FDA.[facility] is regulated under CLIA as qualified to performhigh-complexity testing.This test is used for clinical purposes. It should not be regarded asinvestigational or for research. Performed By: #### I CA, CBCDIF, VITD, PTHI, CMP, URIC ####[facility] [address] [place], [place] [phone] NURSING PROGon 10-11-2017 NURSING PROG HNO ID: [id number] thor: Melita TenorioRn) EMILIANO Loyaervice: (none)Author Type: Registered NurseType: Nursing Progress NoteFiled: 10/11/2017 8:01 PMNote Text:Admission/Transfer NotePATIENT NAME: Darrell CmdMRN: [id number] admitted from PACU via stretcher in stable condition.Actions taken: Patient oriented to room, call light function, prescribedactivities, Patient rights and Quiet at night.This note was completed by: Melita Loya RN [facility] NURSING PROG HNO ID: [id number] thor: May Maldonado) EMILIANO Moffettervice: NursingAuthor Type: Registered NurseType: Nursing Progress NoteFiled: 10/11/2017 10:50 AMNote Text:PRE OP LEARNING ASSESSMENTPROCEDURE/SURGERY: SURGERY: PreopREADINESS TO LEARN: InterestedCOGNITIVE ABILITY: Alert and orientedMOTIVATION TO LEARN: EagerFAMILY SUPPORT: High - Very involved in pt carePATIENT LEARNS BEST BY: Multiple MethodsFACTORS AFFECTING LEARNING: NonePHYSICAL LIMITATIONS AFFECTING LEARNING: NoneElectronically Signed By: May Moffett RN In Department: HOSPMAIN M023 [facility] OPERATIVE NOon 10-11-2017 OPERATIVE NO HNO ID: [id number] thor: Feliciano Santanaervice: UrologyAuthor Type: PhysicianType: Operative ReportFiled: 10/12/2017 9:11 AMNote Text:OPERATIVE/PROCEDURE REPORTLOG ID: [id number]/Procedure Date: 10/11/2017Incision/Procedure Start Time: 1:38 PMIncision Close/Procedure End Time: 3:13 PMSurgeon(s)/Proceduralist(s) and Global Process Owner(s):Surgeon(s) and Role: * Feliciano Schroeder - Primary [...] and draped in the standard sterile fashion.First medical education manager images were obtained noting two opacities in [...] pulled out through theurethral meatus to gain ngqzgyb-wmr-layqsgq access.A glide catheter was used to exchange the iyecvac-ila-tachdty guidewirefor an Amplatz superstiff wire. The ureteroscope was re-inserted to theaccessed calyx. An 8/10 Fr dilator was then used to gently dilate thetract. The tract was incised at the skin for 10 mm. The Piper X-Forceballoon was advanced over the wire and [...] Garcias and Dr. Zapata.Miguel Zapata M.D.Urology PGY-2Pager: [phone] [phone] PMOvernight and on weekends please page [phone] RADHA Schroederirector, Surgical Stone Disease, [facility] ConestogaProfessor of Surgery, [facility] HospitalPager [phone]/12/2017 [facility] PROGRESSon 10-11-2017 PROGRESS HNO ID: [id number] thor: Tyler (Res) Rick Meridarvice: Pediatric UrologyAuthor [...] mL ORAL q 6 H PRNphenol 1 Pax (CHLORASEPTIC) 1 Pax MUCOUS MEMBRANE (TOPICAL MOUTH ANDTHROAT) q 2 [...] lb 5.9 oz) SpO2 99% BMI 26.05 kg/g3TTYTASPH EXAM:GENERAL: no distressNEURO: [id number]: breathing comfortably on 2LCARDIAC: warm and well perfused throughoutABDOMEN: soft, mild distended, non tender.WOUND: CDIGU: Christian catheter present, red urine no clotsLABSCBC, Coags, BMP, Mg, PhosRecent Labs [id number] 16.46*HB 13.7HCT 39.7PLT 147*A/P:Darrell Nelson is a [...] routine teachingDischarge planning - pendingTyler [place] [phone] Normal [facility] PT EDon 10-11-2017 PT ED HNO ID: [id number] thor: Ccf ProviderService: (none)Author Type: PhysicianType: Patient EducationFiled: 10/11/2017 7:15 PMNote Text:[facility] HospitalPatient Education Report Name: DARRELL NELSON Date: 10/11/2017 Time: 7:15 PMPatient Ordered Video: Inpatient Fallsfrom [id number] via phone number [phone] at 7:15 PM Normal [facility] XR CHEST 1V FRONTAL PORTon 0 [...] ORDOÑEZ MD on Oct 11 2017 4:13PM [id number] Normal [facility] CNCOon 10-05-2017 CNCO Letter Text/12/2017M teresa Cmd[address] [id number] Mr. Nelson:Your recent 24 hour urine test [...] for future kidney stones. You may contact doctors hospital [phone] with any questions or concerns.Sincerely,Feliciano Schroeder M.D.ELECTRONICALLY SIGNED Normal [facility] CBC and Differentialon 09-12 Abs Baso 0.04 k/uL Normal <0.11 [facility] Comment on above: Performed By: #### I CA, CBCDIF, VITD, PTHI, CMP, URIC ####[facility] [address] [place], [place] [phone] Abs [place] 1.26 k/uL High <0.87 [facility] Comment on above: Performed By: #### I CA, CBCDIF, VITD, PTHI, CMP, URIC ####[place] [address] [phone] Abs Neut 6.39 k/uL Normal 1.45-7.50 [facility] Comment on above: Performed By: #### I CA, CBCDIF, VITD, PTHI, CMP, URIC ####[place] [address] [address] [place] [phone] Basophils/100 WBC Auto (Bld) 0.3 % Normal [facility] Comment on above: Performed By: #### I CA, CBCDIF, VITD, PTHI, CMP, URIC ####[place] [address] [address] [place] [phone] DTYPE Auto Diff Normal [facility] Comment on above: Performed By: #### I CA, CBCDIF, VITD, PTHI, CMP, URIC ####[place] [address] [address] [place] [phone] Eosinophils 0.10 10*3/uL Normal <0.46 [facility] Comment on above: Performed By: #### I CA, CBCDIF, VITD, PTHI, CMP, URIC ####[place] [address] [address] [place] [phone] Eosinophils/100 leukocytes 0.9 % Normal [facility] Comment on above: Performed By: #### I CA, CBCDIF, VITD, PTHI, CMP, URIC ####[place] [address] [address] [place] [phone] Erythrocyte distribution width Auto Ratio (RBC) 12.9 % Normal 11.5-15.0 [facility] Comment on above: Performed By: #### I CA, CBCDIF, VITD, PTHI, CMP, URIC ####[place] [address] [address] [phone] Erythrocytes (RBC) 0.0 /100 WBC Normal 0 [facility] Comment on above: Performed By: #### I CA, CBCDIF, VITD, PTHI, CMP, URIC ####[place] [address] [address] [phone] Erythrocytes (RBC) 4.74 10*6/uL Normal 4.20-6.00 [facility] Comment on above: Performed By: #### I CA, CBCDIF, VITD, PTHI, CMP, URIC ####[place] [address] [address] [phone] Erythrocytes (RBC) 10*6/uL Normal <0.01 [facility] Comment on above: Performed By: #### I CA, CBCDIF, VITD, PTHI, CMP, URIC ####[place] [address] [address] [phone] Hematocrit (HCT) 43.7 % Normal 39.0-51.0 [facility] Comment on above: Performed By: #### I CA, CBCDIF, VITD, PTHI, CMP, URIC ####[place] [address] [address] [phone] Hemoglobin mass conc (Bld) 14.2 g/dL Normal 13.0-17.0 [facility] Comment on above: Performed By: #### I CA, CBCDIF, VITD, PTHI, CMP, URIC ####[place] [address] [address] [phone] Lymphocytes 3.64 10*3/uL Normal 1.00-4.00 [facility] Comment on above: Performed By: #### I CA, CBCDIF, VITD, PTHI, CMP, URIC ####[place] [address] [address] [phone] Lymphocytes/100 leukocytes 31.8 % Normal [facility] Comment on above: Performed By: #### I CA, CBCDIF, VITD, PTHI, CMP, URIC ####[place] [address] AveCKenneth [place] [phone] MCH 30.0 pG Normal 26.0-34.0 [facility] Comment on above: Performed By: #### I CA, CBCDIF, VITD, PTHI, CMP, URIC ####[place] [address] [address]ie [place] [phone] MCHC mass conc (RBC) 32.5 g/dL Normal 30.5-36.0 [facility] Comment on above: Performed By: #### I CA, CBCDIF, VITD, PTHI, CMP, URIC ####[place] [address] [address] [phone] MCV 92.2 fL Normal 80.0-100.0 [facility] Comment on above: Performed By: #### I CA, CBCDIF, VITD, PTHI, CMP, URIC ####[place] [address] [address] [phone] Monocytes/100 leukocytes 11.0 % Normal [facility] Comment on above: Performed By: #### I CA, CBCDIF, VITD, PTHI, CMP, URIC ####[place] [address] [address] [phone] Neutrophils/100 WBC Auto (Bld) 56.0 % Normal [facility] Comment on above: Performed By: #### I CA, CBCDIF, VITD, PTHI, CMP, URIC ####[place] [address] [address] [place] [phone] Platelet mean volume (PMV) 11.2 fL Normal 9.0-12.7 [facility] Comment on above: Performed By: #### I CA, CBCDIF, VITD, PTHI, CMP, URIC ####[place] [address] [address] [phone] Platelets 206 10*3/uL Normal 150-400 [facility] Comment on above: Performed By: #### I CA, CBCDIF, VITD, PTHI, CMP, URIC ####[facility] [address] [place], [place] [phone] WBC (Leukocytes) 11.43 10*3/uL High 3.70-11.00 [facility] Comment on above: Performed By: #### I CA, CBCDIF, VITD, PTHI, CMP, URIC ####[facility] [address] [place], [place] [phone] CNOVon 09-12-2017 CNOV Office Visit (UROLMN) DARRELL NELSON ([id number]) 1950 [facility] Time Provider Xszacdwojk01/12/17 10:30 AM FELICIANO SCHROEDER During your visit [...] Urine Negative NegativeKetones, Urine Negative 1+ (A)Specific [place], Ur 1.005 - 1.030 1.016Hemoglobin/Blood,Ur Negative 2+ [...] or tremorsOTHER: patient presents for surgical consultSara PHILIP RabagoFF UROLOGY NOTE:I personally interviewed the patient, examined, confirmed and edited thehistory that was documented by Ms Rabago RN and ancillary personnel.Consultation requested by Dr. [...] with more than 50% of the total xtcr-bz-vrlu time ofthe visit devoted to patient counseling/coordination of care.Feliciano Schroeder MDDirector, Surgical Stone Disease, [facility] InstituteProfessor of Surgery, [facility] MedicinePager [phone]/12/2017Bonita Ozuna CNP 09/12/2017 7:38 PM SignedUROLOGY SURGICAL HANDamp;PSERVICE DATE: 09/12/2017REFERRING PROVIDER: Cleveland Llanes MD[address] DSANDUSKSOUTHEAST MISSOURI COMM[facility]ITY [facility] [id number]: No PcpGENDER:SUBJECTIVECHIEF COMPLAINT: Pre-op examHISTORY OF PRESENT [...] symtoms or problems.No history of angina, CHF, SD, cardiac surgery of stents.Respiratory: Negative for current cough, dyspnea. No hx of pneumonia in thepast six weeksPositive: PND, sinus drainage from allergiesGastrointestinal: No history of GERD, PUD, abd pain, difficulty swallowing, GIbleed.Renal: +stonesMusculoskeletal: Negative for joint pain or swelling, back pain or muscle pain.Skin: Negative for lesions, rash and itching.Psychological: No history of psychiatric symptoms or problems.Neurologic: No history of TIA's, stroke, ELEMENTARY SECRETARY tumor, impaired sensorium,hemiplegia, paraplegia or quadriplegia. No [...] 10ANDquot;) Wt 79.4 kg (175 lb) BMI25.11 kg/n6Ociqajsfhhi Max: @TMAXREFRESH(24)@ALLERGIES:ISIS RGIESNo Known AllergiesLABS:No results found for: BUNNo results found for: CREATNo results found for: PSAGlucose, Urine (mg/dL)Date Value09/12/2017 Negative Bilirubin, Urine (no units)Date Value09/12/2017 Negative Ketones, Urine (no units)Date Value09/12/2017 1+ (A) Specific [place], Ur (no units)Date Value09/12/2017 1.016 Hemoglobin/Blood ,Ur [...] Calculus, kidney (primary encounter diagnosis)N20.1 Calculus of txepovB98.9 Right flank painI10 Essential jmisyiczrfmaE23.1 Family history of lgwlrcbqjuxlbymV32.49 Family history of wafwqbpvorhwtmhrnvgU25.9 Low vitamin D wnyzrH23.90 Abnormal urinalysisGLICKMAN UROLOGICAL AND KIDNEY INSTITUTEPRE-OP NOTEDate [...] 11:45 AM PAGER/CONTACT #:Referring Provider: CLEVELAND LLANES [[id number]]Allergies As of Date: 09/12/2017(No Known Allergies)Date Reviewed: 09/12/2017Reviewed by: Az Ann MA - Fully AssessedPrimary Visit Diagnosis:Calculus, kidney [N20.0] Other Visit Diagnoses:Calculus of ureter [N20.1] Right flank pain [R10.9] Essential hypertension [I10] Family history of nephrolithiasis [Z84.1] Family history of hyperparathyroidism [Z83.49] Low vitamin D level [E55.9] Abnormal urinalysis [R82.90]Order(s):UA CHEMSTRIP ONLY [SQUA] Order #: [id number] FUTURE UA CHEMSTRIP ONLY [SQUA] Order #: [id number]. #:[id number] VITAMIN D 25 HYDROXY [SQVITD] Order #: [id number] FUTURE CBC + DIFF [SQCBCDIF] Order #: [id number] FUTURE COMP METABOLIC PANEL [SQCMP] Order #: [id number] FUTURE PTH INTACT BLD [SQPTHI] Order #: [id number] FUTURE URIC ACID BLOOD [SQURIC] Order #: [id number] FUTURE TYPE + SCREEN,30 DAY [PQDMTD30] Order #: [id number] FUTURE CONFIRM BLOOD TYPE [SQCONABO] Order #: [id number] FUTURE ECG COMPLETE W INTERPRETATION [ECG01] Order #: [id number] FUTURE [facility] [3357624] Order #: [id number] CALCIUM IONIZED B [SQICA] Order #: [id number] FUTURE URINE CULTURE [SQURCUL] Order #: [id number]. #:[id number] iptions as of 09/12/2017 Sig: MULTIVITAMIN TABLET [...] History RecordedLetter TextDecember 2016Cleveland Llanes MD[address] AcostaeBld[address] [place] [address]IJPR: Katherine Nelson NO: [id number] OF SERVICE: 09/12/2017Dear Dr. Llanes,I [facility] Nelson[facility] [facility]Enclosed is a copy of my clinic note which should be self-explanatoryregarding findings, recommendations, and treatment plan. Please don'thesitate to contact me if there are questions.Sincerely,Feliciano Schroeder M.D.Staff Urologist, [facility] CampusELECTRONICALLY SIGNEDcc: Abigail Sanchez M.D., [facility] [place] [address]Jqyydldpm Number: [id number] Status:Closed by FELICIANO SCHROEDER MD on 09/12/17 Normal [facility] Calcium, Ionizedon 7 Calcium 1.14 mmol/L Normal 1.08-1.30 [facility] Comment on above: Performed By: #### I CA, CBCDIF, VITD, PTHI, CMP, URIC ####[facility] [address] [place], [place] [phone] Calcium, Ionized 1.20 mmol/L Normal 1.08-1.30 [facility] [place] Comment on above: Performed By: #### I CA, CBCDIF, VITD, PTHI, CMP, URIC ####[facility] [address] [place], [place] [phone] Comp Metabolic Panelon 09-12 Alanine aminotransferase (ALT) 43 U/L Normal 10-54 [facility] Comment on above: Performed By: #### I CA, CBCDIF, VITD, PTHI, CMP, URIC ####[place] [id number] [place] [phone] Albumin 3.8 g/dL Low 3.9-4.9 [facility] Comment on above: Performed By: #### I CA, CBCDIF, VITD, PTHI, CMP, URIC ####[place] [address] [address] [place] [phone] Alkaline phosphatase (ALP) 98 U/L Normal 36-108 [facility] Comment on above: Performed By: #### I CA, CBCDIF, VITD, PTHI, CMP, URIC ####[place] [address] [address] [place] [phone] Anion gap 15 mmol/L Normal 9-18 [facility] Comment on above: Performed By: #### I CA, CBCDIF, VITD, PTHI, CMP, URIC ####[place] [address] [address] [place] [phone] Aspartate aminotransferase (AST) 40 U/L Normal 14-40 [facility] Comment on above: Performed By: #### I CA, CBCDIF, VITD, PTHI, CMP, URIC ####[place] [address] [address] [phone] Bilirubin (total) 0.5 mg/dL Normal 0.2-1.3 [facility] [place] Comment on above: Performed By: #### I CA, CBCDIF, VITD, PTHI, CMP, URIC ####[place] [address] [address] [phone] Calcium 9.3 mg/dL Normal 8.5-10.2 [facility] Comment on above: Performed By: #### I CA, CBCDIF, VITD, PTHI, CMP, URIC ####[place] [address] [address] [phone] Chloride 100 mmol/L Normal 97-105 [facility] Comment on above: Performed By: #### I CA, CBCDIF, VITD, PTHI, CMP, URIC ####[place] [id number] [place] [phone] CO2 26 mmol/L Normal 22-30 [facility] Comment on above: Performed By: #### I CA, CBCDIF, VITD, PTHI, CMP, URIC ####[place] [address] [address] [place] [phone] Creatinine 1.05 mg/dL Normal 0.73-1.22 [facility] Comment on above: Performed By: #### I CA, CBCDIF, VITD, PTHI, CMP, URIC ####[place] [address] [address] [place] [phone] eGFR (non-black) mL/min/{1.73_m2} Normal [facility] Comment on above: Performed By: #### I CA, CBCDIF, VITD, PTHI, CMP, URIC ####[place] [address] [address] [phone] Result Comment: eGFR (Estimated GFR) Units of [...] Glucose mass conc 92 mg/dL Normal 74-99 [facility] [place] Comment on above: Result Comment: The English Diabetes Association (ADA) provides guidance for cutoff [...] Standards of Medical Care in Diabetes 2016, English Diabetes Association. Diabetes Care. 2016.39(Suppl 1). Performed By: #### I CA, CBCDIF, VITD, PTHI, CMP, URIC ####[facility] [place] [phone] Potassium molar conc 4.0 mmol/L Normal 3.7-5.1 [facility] Comment on above: Performed By: #### I CA, CBCDIF, VITD, PTHI, CMP, URIC ####[facility] [phone] Protein 7.5 g/dL Normal 6.3-8.0 [facility] Comment on above: Performed By: #### I CA, CBCDIF, VITD, PTHI, CMP, URIC ####[facility] [place] [phone] Sodium 141 mmol/L Normal 136-144 [facility] Comment on above: Performed By: #### I CA, CBCDIF, VITD, PTHI, CMP, URIC ####[facility] [phone] Urea nitrogen 10 mg/dL Normal 9-24 [facility] Comment on above: Performed By: #### I CA, CBCDIF, VITD, PTHI, CMP, URIC ####[facility] [phone] Confirm Blood Typeon 017 ABO/RH(D) Positive Normal [facility] Comment on above: Performed By: #### C ONABO ####[facility] [phone] HISTORY PHYSICALon 12-12-201 7 HISTORY PHYSICAL HNO ID: [id number] thor: [place] ([facility]) DigennaroService: (none)Author Type: Nurse PractitionerType: HANDPFiled: 09/12/2017 7:38 PMNote Text:UROLOGY SURGICAL HANDPSERVICE DATE: 09/12/2017REFERRING PROVIDER: Cleveland Llanes MD[address] [place] [address]OOR: No PcpGENDER:SUBJECTIVECHIEF COMPLAINT: Pre-op examHISTORY OF PRESENT [...] symtoms or problems.No history of angina, CHF, SD, cardiac surgery of stents.Respiratory: Negative for current cough, dyspnea. No hx of pneumonia inthe past six weeksPositive: PND, sinus drainage from allergiesGastrointestinal: No history of GERD, PUD, abd pain, difficultyswallowing, GI bleed.Renal: +stonesMusculoskeletal: Negative for joint pain or swelling, back pain or musclepain.Skin: Negative for lesions, rash and itching.Psychological: No history of psychiatric symptoms or problems.Neurologic: No history of TIA's, stroke, ELEMENTARY SECRETARY tumor, impaired sensorium,hemiplegia, paraplegia or quadriplegia. No [...] ) Wt 79.4 kg (175 lb) BMI25.11 kg/n1Lmkmviixorh Max: @TMAXREFRESH(24)@ALLERGIES:ISIS RGIESNo Known AllergiesLABS:No results found for: BUNNo results found for: CREATNo results found for: PSAGlucose, Urine (mg/dL)Date Value09/12/2017 Negative Bilirubin, Urine (no units)Date Value09/12/2017 Negative Ketones, Urine (no units)Date Value09/12/2017 1+ (A) Specific [place], Ur (no units)Date Value09/12/2017 1.016 Hemoglobin/Blood ,Ur [...] Calculus, kidney (primary encounter diagnosis)N20.1 Calculus of xwowthA45.9 Right flank painI10 Essential usgeistbirreB15.1 Family history of tnujijwkpdterxjJ64.49 Family history of wgjevylqozuqlmpmvwmZ23.9 Low vitamin D hzxdyS00.90 Abnormal urinalysisGLICKMAN UROLOGICAL AND KIDNEY INSTITUTEPRE-OP NOTEDate [...] 2017 : 11:45 AM PAGER/CONTACT #: Dong [facility] 09-12-2017 HOSP Patient Update ([facility]) NELSONDARRELL Davila ([id number]) 1950 MDate Time Provider Fkntgmksgl75/12/17 ASHTYN RABAGO (RN) [facility] During your visit today, we recorded the following information about you:Allergies As of Date: 09/12/2017(No Known Allergies)Date Reviewed: 09/12/2017Reviewed by: Az Ann MA - Fully AssessedOrder(s):SURGICAL REQUEST - ELECTIVE [[id number]] Order #: [id number]: 1Prescriptions as of 09/12/2017 Sig: POTASSIUM CITRATE [...] FOR* More...Follow-up and Disposition History RecordedEncounter Number: [id number] Status:Closed by ASHTYN RABAGO on 09/12/17 Normal [facility] Patient:Darrell eNlson LMRN: Height:5' 10 (1.778 m)Weight:175 lb (79.379 kg)Outpatient Medications as of 10/11/17:potassium citrate ER (UROCIT-K) 10 mEq (1,080 mg) TbERtamsulosin ER (FLOMAX) 0.4 mg ek65crsevaiu (COZAAR) 25 mg tabletmultivitamin tabletAdmission/Clinic Administered Medications [...] Urine Negative NegativeKetones, Urine Negative 1+ (A)Specific [place], Ur 1.005 - 1.030 1.016Hemoglobin/Blood,Ur Negative 2+ [...] with more than 50% of the total ceza-jv-smie time of thevisit devoted to patient counseling/coordination of care.Feliciano Schroeder, MDDirector, Surgical Stone Disease, [facility] InstituteProfessor of Surgery, [facility] Memorial HospitalPager [phone]/12/2017Previous VersionHeisabela Ozuna CNP 09/12/2017 7:38 PM SignedUROLOGY SURGICAL HANDPSERVICE DATE: 09/12/2017REFERRING PROVIDER: Cleveland Llanes MD[address] [facility] [id number]: No PcpGENDER:SUBJECTIVECHIEF COMPLAINT: Pre-op examHISTORY OF PRESENT [...] symtoms or problems.No history of angina, CHF, SD, cardiac surgery of stents.Respiratory: Negative for current cough, dyspnea. No hx of pneumonia in the pastsix weeksPositive: PND, sinus drainage from allergiesGastrointestinal: No history of GERD, PUD, abd pain, difficulty swallowing, GIbleed.Renal: +stonesMusculoskeletal: Negative for joint pain or swelling, back pain or muscle pain.Skin: Negative for lesions, rash and itching.Psychological: No history of psychiatric symptoms or problems.Neurologic: No history of TIA's, stroke, ELEMENTARY SECRETARY tumor, impaired sensorium,hemiplegia, paraplegia or quadriplegia. No [...] ) Wt 79.4 kg (175 lb) BMI 25.11kg/b3Uhdgkmlptzr Max: @TMAXREFRESH(24)@ALLERGIES:ISIS RGIESNo Known AllergiesLABS:No results found for: BUNNo results found for: CREATNo results found for: PSAGlucose, Urine (mg/dL)Date Value09/12/2017 Negative Bilirubin, Urine (no units)Date Value09/12/2017 Negative Ketones, Urine (no units)Date Value09/12/2017 1+ (A) Specific [place], Ur (no units)Date Value09/12/2017 1.016 Hemoglobin/Blood ,Ur [...] Calculus, kidney (primary encounter diagnosis)N20.1 Calculus of bkboksO29.9 Right flank painI10 Essential ptwhrobefwuoF90.1 Family history of vbfwaqhsvvkbgzwE91.49 Family history of iozqlxubhvwrsylrwqtN70.9 Low vitamin D hoofnE75.90 Abnormal urinalysisGLICKMAN UROLOGICAL AND KIDNEY INSTITUTEPRE-OP NOTEDate [...] - NoPACE Clinic: Cleared per ARAMIS - NoChaparro testing on cureform has been [...] permitted. If the surgery is scheduled [facility]noon, you may have water during the morning [...] 2017 : 11:45 AM PAGER/CONTACT #: Dong [facility] PROGRESSon 09-12-2017 PROGRESS HNO ID: [id number] thor: Feliciano KumarbleService: (none)Author Type: PhysicianType: Progress [...] Urine Negative NegativeKetones, Urine Negative 1+ (A)Specific [place], Ur 1.005 - 1.030 1.016Hemoglobin/Blood,Ur Negative 2+ [...] seizures or tremorsOTHER: patient presents for surgical consultSaEMILIANO PangTASALLY UROLOGY NOTE:I personally interviewed the patient, examined, confirmed and edited thehistory that was documented by Ms Rabago RN and ancillary personnel.Consultation requested by Dr. [...] with more than 50% of the total qhcm-dn-paoqjmwb of the visit devoted to patient counseling/coordination of care.Feliciano Schroeder, MDDirector, Surgical Stone Disease, [facility] InstituteProfessor of Surgery, [facility] Children[facility] HospitalPager [phone]/12/2017 Normal [facility] PTH, Intacton 09-12-2017 PTH, Intact 26 pg/mL Normal 15-65 [facility] Comment on above: Performed By: #### I CA, CBCDIF, VITD, PTHI, CMP, URIC ####[address] [place] [phone] Type and SCR (30D)on 017 ABO/RH(D) Positive Normal [facility] Comment on above: Performed By: #### T SCR30 ####[place] [phone] Antibody Screen Negative Normal [facility] Comment on above: Performed By: #### T SCR30 ####[place] [phone] Uric Acidon 09-12-2017 Urate 4.9 mg/dL Normal 4.0-8.1 [facility] Comment on above: Performed By: #### I CA, CBCDIF, VITD, PTHI, CMP, URIC ####[place] [phone] Urinalysison 09-12-2017 Bilirubin, Urine Negative Normal Negative [facility] Comment on above: Performed By: #### U A ####[place] [phone] Comments SEE COMMENT Normal [facility] Comment on above: Result Comment: Micr oscopic Examination Performed Performed By: #### U A ####[place] [phone] Erythrocytes (RBC) 10*6/uL Critically abnormal 0-3 [facility] Comment on above: Performed By: #### U A ####[place] [phone] Hemoglobin mass conc (Bld) 2+ Critically abnormal Negative [facility] Comment on above: Performed By: #### U A ####[address], [place] [phone] Leukest 3+ Critically abnormal Negative [facility] Comment on above: Performed By: #### U A ####[place] [address] [address] [place] [phone] pH of blood 7.0 [pH] Normal 4.5-8.0 [facility] Comment on above: Performed By: #### U A ####[place] [address] [address] [place] [phone] Protein, Urine 30 mg/dL Critically abnormal Negative [facility] Comment on above: Performed By: #### U A ####[place] [phone] Specific [place], Ur 1.016 Normal 1.005-1.03 0 [facility] Comment on above: Performed By: #### U A ####[place] [phone] Urine Kelby Comment SEE COMMENT [facility] Comment on above: Result Comment: N/A Performed By: #### U A ####[place] [phone] Urine, clarity Cloudy Critically abnormal Clear [facility] Comment on above: Performed By: #### U A ####[place] [address] [address] [place] [phone] Urine, color Yellow Normal Yellow [facility] Comment on above: Performed By: #### U A ####[place] [address] [address]ToryRyan [place] [phone] Urine, epithelial cells in sediment SEE COMMENT Normal [facility] Comment on above: Result Comment: FewS quamous Epithelial Cells Performed By: #### U A ####[place] [address] [address] [place] [phone] Urine, glucose presence Negative Normal Negative [facility] Comment on above: Performed By: #### U A ####[place] [address] [address] [phone] Urine, ketones presence 1+ Critically abnormal Negative [facility] Comment on above: Performed By: #### U A ####[place] [address] [address] [place] [phone] Urine, nitrite presence Negative Normal Negative [facility] Comment on above: Performed By: #### U A ####[place] [address] [address] [place] [phone] Urine, urobilinogen Normal Normal Normal [facility] Comment on above: Performed By: #### U A ####[place] [phone] WBC (Leukocytes) 10*3/uL Critically abnormal 0-5 [facility] Comment on above: Performed By: #### U A ####[place] [address] [address] [place] [phone] Urine Cultureon 09-12-2017 Urine culture, bacteria Sp. Request/Comment: - Specimen received in preservative Culture Result - No growth (<1,000 CFU/ml) Normal [facility] Comment on above: Performed By: #### U RCUL ####[place] [phone] Vitamin D 25 Hydroxyon 09-12 Vitamin D 25 Hydroxy 38.6 ng/mL Normal 31.0-80.0 [facility] Comment on above: Result Comment: Clas sification of 25 [place] Vitamin D status:Insufficiency/Moderate Deficiency: < or = 30 ng/mLSufficiency/Optimal Levels: 31 to 80 ng/mLToxicity: > 100 ng/mLTest performed by chemiluminescent immunoassay. Performed By: #### I CA, CBCDIF, VITD, PTHI, CMP, URIC ####[place] [address] [address] [place] [phone] SR-CT Abdomen/Pelvis w/o Con trast IMPORTon 09-07-2017 SR-CT Abdomen/Pelvis w/o Contrast IMPORT Images were obtained outside of [facility] [id number] Normal [facility] Vital Signs Date Time Vital Sign Value Performing Clinician Facility 10-16-2024 08:06-0500 Blood Pressure Location Rock Coupad [facility] 10-16-2024 08:06-0500 Diastolic [facility] 100 [facility] 10-16-2024 08:06-0500 Heart rate 78 /[facility] 10-16-2024 08:06-0500 Systolic blood pressure 163 mm[Hg[facility] 03-20-2024 08:14-0400 Diastolic blood pressure 85 mm[Hg[facility] 03-20-2024 08:14-0400 Heart rate 66 /[facility] 03-20-2024 08:14-0400 Systolic blood pressure 146 mm[Hg] [facility] 08-23-2023 08:30-0500 Blood Pressure Location Laura OrWeMontage [facility] 08-23-2023 08:30-0500 Diastolic blood pressure 91 mm[Hg] Laura Orzech [facility] 08-23-2023 08:30-0500 Heart rate 88 /min Laura Orzech [facility] 08-23-2023 08:30-0500 Respiratory rate 16 /min Laura Orzech [facility] 08-23-2023 08:30-0500 Systolic blood pressure 151 mm[Hg] Laura Orzebisi [facility] 08-07-2023 08:45-0500 Body height 172.72 cm Abigail Sanchez Other [facility] Other 08-07-2023 08:45-0500 Body mass index (BMI) [Ratio] 25.18 kg/m2 Abigail Sanchez Other [employer] Other 08-07-2023 08:45-0500 Body weight 75.12 kg Abigail Sanchez Other [employer] Other 08-07-2023 08:45-0500 Diastolic blood pressure 73 mm[Hg] Abigail Sanchez Other [employer] Other 08-07-2023 08:45-0500 SaO2% (BldA) [Mass fraction] 99 % Abigail Sanchez Other [employer] Other 08-07-2023 08:45-0500 Systolic blood pressure 165 mm[Hg] Abigail Sanchez Other [employer] Other 11-17-2022 09:30-0500 Body height 172.72 cm Abigail Sanchez Other [employer] Other 11-17-2022 09:30-0500 Body mass index (BMI) [Ratio] 27.82 kg/m2 Abigail Sanchez Other [employer] Other 11-17-2022 09:30-0500 Body weight 83.01 kg Abigail Sanchez Other [employer] Other 11-17-2022 09:30-0500 Diastolic blood pressure 82 mm[Hg] Abigail Sanchez Other [employer] Other 11-17-2022 09:30-0500 SaO2% (BldA) [Mass fraction] 97 % Abigail Sanchez Other [employer] Other 11-17-2022 09:30-0500 Systolic blood pressure 140 mm[Hg] Abigail Sanchez Other [employer] Other 07-26-2022 13:18-0400 Blood Pressure Location StunableL [facility] [place] 07-26-2022 13:18-0400 Diastolic blood pressure 98 mm[Hg] Dharmesh NILL [facility] [place] 07-26-2022 13:18-0400 Heart rate 72 /min Dharmesh NILL [facility] [place] 07-26-2022 13:18-0400 Respiratory rate 16 /min Dharmesh NILL [facility] [place] 07-26-2022 13:18-0400 Systolic blood pressure 138 mm[Hg] Dharemsh NILL [facility] [place] Encounters Encounter Date Encounter Type Care Provider Facility Start: 04-23-2025 ambulatory Rock LUJAN Facility :[facility] [place] Start: 01-13-2025 End: 01-13-2025 ambulatory [facility] Start: 12-20-2024 End: 12-20-2024 ambulatory [facility] Start: 11-08-2024 End: 11-08-2024 ambulatory [facility] Start: 10-16-2024 End: 10-16-2024 ambulatory Rock LUJAN Facility:[facility] [place] Start: 10-16-2024 End: 10-16-2024 Patient encounter procedure Rock LUJAN [facility] Start: 03-20-2024 End: 03-20-2024 ambulatory Rock LUJAN Facility:[facility] Start: 03-20-2024 End: 03-20-2024 Patient encounter procedure Rock LUJAN [facility] Start: 08-23-2023 End: 08-23-2023 Patient encounter procedure Laura Darling [facility] Start: 08-11-2023 End: 08-11-2023 ambulatory Abigail Sanchez Other [email or web address] Other Start: 08-11-2023 Telephone encounter Abigail Sanchez [facility] Start: 08-07-2023 End: 08-07-2023 ambulatory Abigail Sanchez Other [employer] Other Start: 08-07-2023 Office outpatient vi sit 15 minutes Abigail Sanchez [facility] Start: 02-08-2023 End: 02-09-[address] ROCK LUJAN Facility:[facility] Start: 11-17-2022 End: 11-17-2022 ambulatory Abigail Sanchez Other [email or web address] Other Start: 11-17-2022 Encounter for other preprocedural examination Abigail Sanchez [facility] Start: 11-17-2022 Office outpatient vi sit 15 minutes Abigail Sanchez [facility] Start: 11-03-2022 End: 11-04-[address] DENISHA GARCIA Facility:[facility] Start: 08-31-2022 Encounter for preprocedural laboratory examination DR DHARMESH WALTERS . [facility] Start: 08-31-2022 End: 08-31-[address] DHARMESH WALTERS . Facility:[facility] Start: 08-26-2022 End: 08-27-[address] DHARMESH WALTERS . Facility:[facility] Start: 08-26-2022 End: 08-27-2022 Encounter for preprocedural laboratory examination DR DHARMESH WALTERS . Facility:[facility] Start: 07-26-2022 End: 07-26-2022 Patient encounter procedure Dharmesh WALTERS [facility] Start: 06-30-2022 Adult health examination Gricelda Sanchez Other [email or web address] Other Start: 06-28-2022 End: 06-29-[address] ABIGAIL SANCHEZ Facility:[facility] Start: 04-27-2022 End: 04-27-2022 Patient encounter procedure Rock LUJAN [facility] Start: 04-20-2022 End: 04-21-[address] ROCK LUJAN Facility:[facility] Start: 10-21-2017 End: 10-22-2017 Ambulatory ALEXA GARCIA [facility] Start: 10-13-2017 End: 10-13-2017 Ambulatory FELICIANO SCHROEDER [facility] Start: 10-11-2017 End: 10-13-2017 Ambulatory FELICIANO SCHROEDER [facility] Start: 09-12-2017 End: 09-12-2017 Ambulatory FELICIANO SCHROEDER [facility] Start: 09-12-2017 End: 09-18-2017 Ambulatory FELICIANO SCHROEDER [facility] Procedures Date Procedure Procedure Detail Performing Clinician Start: 08-31-2022 Colonoscopy Laura Darling Start: 08-31-2022 Esophagogastroduodenoscopy Laura Darling Start: 04-12-2019 Screening for malignant neoplasm of prostate Abigail Sanchez Other Start: 10-11-2017 Removal of calculus of renal pelvis through percutaneous nephrostomy Rock LUJAN Start: 10-02-2017 Cystoscopic removal of ureteric stent Rock LUJAN Start: 01-13-2016 Cysto, right RGP, right JJ stent Rock LUJAN Start: 09-16-2015 Neck Surgery Rock LUJAN Bilateral hernia repair Martin LUJAN Bilateral inguinal hernia repair Dharmesh WALTERS Cholecystectomy Rock LUJAN Colonoscopy Dharmesh NILL History of surgical procedure on cervical spine Dharmesh NILL History of surgical procedure on cervical spine Dharmesh NILL Sinus Surgery Rock LUJAN Immunizations Immunization Date Immunization Notes Care Provider Fa cili 08-16-2021 COVID-19 Vaccine Pfizer - Documentation Purposes Only Abigail Sanchez Other [facility] 01-07-2021 COVID-19 Vaccine Pfizer - Documentation Purposes Only Abigail Sanchez Other [facility] 12-17-2020 SARS-CoV-2 (COVID-19 ) mRNA BNT-162b2 vax Commtimize [facility] NEGATED: Highlighted row has not occurred!10-16-2024 influenza virus vaccine, unspecified formulation Rock LUJAN [facility] NEGATED: Highlighted row has not occurred!08-23-2023 influenza virus vaccine, unspecified formulation Laura OrzeEdutor [facility] Payers Date Payer Category Payer Medicare [id number] 2. [id number] 1950 Unknown [id number] 2.16.84 [id number] 1950 Unknown [id number] 2.16.84 [id number] 1950 Unknown [id number] 2.16.84 [id number] 1950 Unknown [id number] 2.16.84 [id number] 1950 Unknown [id number] 2.16.84 [id number] 1950 Unknown [id number] [id number] 1950 Unknown [id number] [id number] 1950 Unknown [id number] [id number] 1950 Unknown [id number] [id number] Social History Date Type Detail Facility Start: 04-27-2022 End: 10-16-2024 Tobacco smoking status Never smoked tobacco (finding) [facility] Tobacco smoking status Never [facility] Sex Assigned At Male [facility] Functional Status Date Assessment Result Facility 10-16-2024 Functional Status N/A [facility] 03-20-2024 Functional Status N/A [facility] 08-23-2023 Functional Status N/A [facility] 07-26-2022 Functional Status N/A [facility] 04-27-2022 Functional Status N/A [facility] Clinical Notes 04-27-2022 to 01-13-2025 Note Date & Type Note Facility 01-13-2025 Note [facility] Note Reason for cardiology visit: Follow-up post ALEXEI Chief Complaint: No complaint HPI: 01/13/2025 Patient is here today for follow-up visit. 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 He reports that his blood pressure at home is normal. He did not bring his blood pressure machine to evaluate its accuracy. He denies any chest pain or shortness of breath at rest or with exertion. Denies orthopnea or paroxysmal nocturnal dyspnea or dizziness or palpitation or legs edema or leg discomfort on exertion 11/08/2024 Darrell Nelson is a 74 y.o. male [...] drugs No family history of cardiac disease ROS: All systems were reviewed and they were negative except for the positive findings noted above in the history Past Medical History He has a past [...] Age of Onset Diverticulitis Mother Cancer Mother Accidental Brother Allergies Patient has no known allergies. Medications Current Outpatient Medications: losartan (Cozaar) 25 mg tablet, Take 25 mg by mouth in the morning., Disp: , Rfl: multivitamin tablet, Take 1 tablet by mouth in the morning., Disp: , Rfl: tamsulosin (Flomax) 0.4 mg 24 hr capsule, Take 0.4 mg by mouth 2 times daily., Disp: , Rfl: Last Recorded Vitals Visit Vitals BP 160/90 (BP Location: Right arm, Patient Position: Sitting) Pulse 66 Ht 1.753 m (5' 9 ) Wt 79.4 kg (175 lb) SpO2 99% BMI 25.84 kg/m??? Smoking Status Never BSA 1.97 m??? Physical Examination: GENERAL: alert and oriented x3, well developed, in no acute distress. HEAD: atraumatic, normocephalic. EYES: KAITLYNN, EOMI. NECK: trachea midline, no JVD present, no carotid bruits present. But can hear a transmission of cardiac murmur to both carotids CARDIAC: S1, S2 present. RRR. Systolic murmur 4 /6 at the apex radiating to the base and to the neck RESPIRATORY: CTAB, no increased effort of breathing, no rales, rhonchi, or wheezing. ABDOMEN: soft, nontender, nondistended. EXTREMITIES: no lower extremity edema. No rash/skin discoloration present. NEURO: strength/sensation equal and symmetric in bilateral upper and lower extremities. PSYCH: appropriate mood, affect, and judgement. Labs: 11/13/2024 10/09/2024 White blood count 9.8, hemoglobin 13.3, hematocrit 42.1, platelets 147 Sodium 141, potassium 4.3, BUN 13, creatinine 1.02, GFR above 60, glucose 97, calcium 8.7 Last Images: EKG 10/22/2024 showed normal sinus rhythm with sinus arrhythmia, heart rate 90 bpm, no T or ST changes, normal EKG Echo 10/22/2024 ALEX[facility] 12/20/2024 Left Ventricle: Global left ventricular systolic function is normal. The EF is 65 % visually. Right Ventricle: The right ventricle appears normal in size. Right ventricular systolic function appears normal. Left Atrium: The left atrium appears enlarged. 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 No intracardiac shunt by agitated saline injections. 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 Severe mitral regurgitation. The mitral regurgitant jet is eccentric and directed anteriorly. Mitral Valve Measurements MV PGmean: 3.00 mmHg. Aorta: Mild atherosclerotic plaque is seen in the aorta. Assessment a (more content not included)... [facility] 11-08-2024 Note [facility] Note Reason for cardiology [...] patient the findings (more content not included)... [facility] 10-16-2024 Hospital Discharge instructions Patient Education 10/16/2024 [...] treatment? Where to find more information The [employer] Society: www.cancer.org English Urological Association: www.auanet.org Contact a health care [...] provider. Document Revised: 03/14/2022 Document Reviewed: 03/14/2022 [employer] Patient Education 2023 [employer] Follow Up Care 03/20/2024 09:04:03 With:KARLEE GA, Rock Pollock, URL Address: [address] [address]- When: Unknown [facility] 10-16-2024 Note Patient Education Oncology Prostate Cancer [...] Where to find more information ??? The [employer] Cancer Society: www.cancer.org ??? English Urological Association: www.auanet.org Contact a health care [...] The prostate gland (more content not included)... [facility] 03-20-2024 Hospital Discharge instructions Patient Education 03/20/2024 [...] urethra. Follow these instructions at home: Take ushy-lgd-nixlzbm and prescription medicines only as told by [...] provider. Document Revised: 04/06/2022 Document Reviewed: 04/06/2022 [employer] Patient Education 2022 [employer] Follow Up Care 08/23/2023 09:06:17 With:KARLEE GA, Rock Pollock, URL Address: [address] [place] [id number]- When: Unknown [facility] 08-23-2023 Hospital Discharge instructions Patient Education 08/23/2023 [...] urethra. Follow these instructions at home: Take kdjz-dsa-rdcmgik and prescription medicines only as told by [...] provider. Document Revised: 04/06/2022 Document Reviewed: 04/06/2022 [employer] Patient Education 2022 [employer]. 08/23/2023 11:10:20 Prostate Cancer Screening Prostate Cancer [...] treatment? Where to find more information The English Cancer Society: www.cancer.org English Urological Association: www.auanet.org Contact a health care [...] provider. Document Revised: 03/14/2022 Document Reviewed: 03/14/2022 [employer] Patient Education 2022 [employer]. Follow Up Care 02/15/2023 12:04:24 With:KARLEE GA, Rock Pollock, URL Address: [address] [place] [id number]- When: Unknown [facility] 08-07-2023 Evaluation note Encounter Date [...] Has passed the quarantine dates. Rest, hydrate. [email or web address] Other 02-16-2023 Evaluation note* Encounter Date Diagnosis [...] juncture. Nov, Essential hypertension (ICD-10 - I10) [email or web address] Other 11-30-2022 NoteOP Note OPERATION DATE: 08/31/2022 [...] year after that. CC: Abigail Sanchez M.D.[id number] NoteOPERATIVE NOTE OPERATION DATE: 08/26/2022 PREOPERATIVE DIAGNOSIS: [...] room in good condition. CC: Abigail Sanchez M.D.[facility]11-25-2022 NoteOPERATIVE NOTE OPERATION DATE: 08/26/2022 PREOPERATIVE DIAGNOSIS: [...] one year after that. CC: Abigail Sanchez M.D.[facility]07-27-2022 Hospital Discharge instructions Patient Education 04/27/2022 08:25:39 [...] urethra. Follow these instructions at home: Take vbzd-der-yycscps and prescription medicines only as told by [...] 09/18/2006 Document Revised: 08/13/2019 Document Reviewed: 10/23/2017 [employer] Patient Education 2020 [employer] Follow Up Care 10/25/2021 11:53:28 With:KARLEE GA, Rock Pollock, URL Address: [address] [employer] [address]- When:Within 6 Month(s) [facility] Evaluation + Plan note Future Appointments Appointment Date:10/17/2022 08:00:00 AM Scheduled Provider:Rock LUJAN MD Location:[facility] Appointment Type:URO Office Visit Diagnostic Tests Pending * PSA Free & Total 09/01/22 [facility] Evaluation + Plan note Future Appointments Appointment Date:10/17/2022 08:00:00 AM Scheduled Provider:Rock LUJAN MD Location:[facility] Appointment Type:URO Office Visit General Surgery [place] Evaluation + Plan note Future Appointments Appointment Date:03/20/2024 08:00:00 AM Scheduled Provider:Rock LUJAN MD Location:[facility] Appointment Type:URO Office Visit Diagnostic Tests Pending * PSA Free & Total 08/23/23 [facility] Evaluation + Plan note Future Appointments Appointment Date:10/16/2024 08:00:00 AM Scheduled Provider:Rock LUJAN MD Location:[facility] Appointment Type:URO Office Visit Diagnostic Tests Pending * PSA Free & Total 07/02/24 [facility] Evaluation + Plan note Future Appointments Appointment Date:04/23/2025 08:45:00 AM Scheduled Provider:Rock LUJAN MD Location:[facility] Appointment Type:URO Office Visit Diagnostic Tests Pending * PSA Free & Total 03/02/25 [facility] evaluation noteNo InformationNortThe Children's Hospital Foundation [employer] Other Hisdcqo general Narrative - Reported* Type Description Date Medical History Iron deficiency anemia Medical History Fatigue Medical History Dyspnea on exertion Medical History Essential hypertension Surgical History CHOLECYSTECTOMY Surgical History CERVICAL DISC SURGERY Surgical History 2 INGUINAL HERNIA SURGERY Hospitalization History SEE SURGICAL HX [facility] [employer] Other Hisqwkb general Narrative - Reported* Type Description Date Medical History Iron deficiency anemia Medical History Fatigue Medical History Dyspnea on exertion Medical History Essential hypertension Surgical History CHOLECYSTECTOMY Surgical History CERVICAL DISC SURGERY Surgical History 2 INGUINAL HERNIA SURGERY Surgical History Colonoscopy 2022 Surgical History Bowel resection 11/2022 Hospitalization History SEE SURGICAL HX [email or web address] Other Hospital course Narrative No data available for this section [facility] Hospital Discharge instructions No data available for this section General Surgery [place] [facility] note No data available for this section [facility] Summary Purpose Family History No [...] section and content) DATE CREATED AUTHOR 03/26/2018 [facility] DATE CREATED AUTHOR AUTHOR'S ORGANIZ ATION 03/31/2022 [facility] DATE CREATED AUTHOR AUTHOR'S ORGANIZ ATION 02/12/2023 [facility] DATE CREATED AUTHOR AUTHOR'S ORGANIZ ATION 10/17/2024 [facility] DATE CREATED AUTHOR AUTHOR'S ORGANIZ ATION 01/13/[address] [facility] Care Team (unrecognized sect ion and content) Personnel Name: ABIGAIL SANCHEZ MD Address: [address] [place] [address] Personnel Name: ABIGAIL SANCHEZ MD Address: Address: [address] [place] [address] Personnel Name: ABIGAIL SANCHEZ MD Address: Address: [address] [place] [address] Personnel Name: ABIGAIL SANCHEZ MD Address: Address: [address] [place] [address] Personnel Name: ABIGAIL SANCHEZ MD Address: Address: [address] [place], [place] [address] REASON FOR VISIT (unrecogniz ed section and [...] BE BASED ON THE PRIMARY CLINICAL RECORDS. [employer] [facility]. provides no warranty or guarantee of the accuracy or completeness of information in this document.
[2025-01-20 09:41] LABS: Anion Gap 10.2; Carbon Dioxide 30.9 mmol/L (21.0-32.0); Chloride 104 mmol/L (98-107); Estimated GFR (African America >60 (>=60 mL/min/1.73m^2); Estimated GFR (Non-African Ame >60 (>=60 mL/min/1.73m^2); Glucose 100 mg/dL (74-106); Potassium 4.1 mmol/L (3.5-5.1); Sodium 141 mmol/L (136-145)
== END 2025-01-20 08:41 | disposition home or self-care (01) ==
LOC: LAB 08:42
PROVIDERS: PCP Family Medicine; Visit Provider Internal Medicine Cardiovascular Disease
DX: I11.9 Hypertensive heart disease without heart failure (principal)
CPT/HCPCS: 36415; 80048

== ENCOUNTER 2025-02-10 09:18 | Outpatient (OUT) | payer MEDICARE, SELFPAY ==
--- OUTSIDE RECORDS SUMMARY | 2025-02-10 09:21 | XMS_ITS | CCD ---
Author Organization [facility] CliniSymt Care Team Providers Care Door Liner Name Role Phone SCHROEDER, FELICIANO Unavailable Unavailable [...] Unavailable SANCHEZ, DR ABIGAIL Trejo Attending Unavailable SANCHZE, DR ABIGAIL Trejo Primary Care Unavailable SANCHEZ, DR ABIGAIL Trejo Consulting Unavailable GARCIA, DR DENNY Admitting Unavailable GARCIA, DR DENNY Attending Unavailable SANCHEZ, DR ABIGAIL Trejo Primary Care Unavailable SMOOT, DR OLIVER Maguire Consulting Unavailable GARCIA, DR [...] Attending Unavailable Rock LUJAN Attending Unavailable JOHN PLASENCIA Attending Unavailable JOHN PLASENCIA Referring Unavailable ASHER TORRES Referring Unavailable SANJU HOWARD Attending Unavailabl JOHN Vides Referring Unavailable JOHN PLASENCIA Attending Unavailable Medications Current Medications Medication Drug [...] BID, # 14 tab(s), Refills(s) 0, Pharmacy: [facility], 177, cm, 02/15/23 11:48:00 EDT, Height/Length [...] BID, # 180 cap(s), Refills(s) 3, Pharmacy: [facility] #[facility], 177, cm, 08/23/23 8:44:00 EST, Height/Length Dosing, 78.9, kg, 08/23/23 8:44:00 EST, Weight Dosing Start Date: 01/09/24 Status: Ordered Start: 01-12-2023 take 1 capsule by [facility] twice daily tamsulosin 0.4 mg Cap 0.4 mg = 1 cap(s), Oral, BID, # 180 cap(s), Refills(s) 3, Pharmacy: [facility], 177, cm, 07/26/22 13:27:00 EDT, Height/Length Dosing, 87.5, kg, 07/26/22 13:27:00 EDT, Weight Dosing Start Date: 01/12/23 Status: Ordered Start: 01-05-2022 take 1 capsule by [facility] twice daily tamsulosin 0.4 mg Cap 0.4 mg = 1 cap(s), Oral, BID, # 180 cap(s), Refills(s) 3, Pharmacy: [facility] #[facility], 177, cm, 10/25/21 11:30:00 EST, Height/Length Dosing, 78.9, kg, 10/25/21 11:30:00 EST, Weight Dosing Start Date: 01/05/22 Status: Ordered take 1 capsule by [facility] every twenty-four hours Tamsulosin HCl 0.4 MG [...] 07/18/22 Status: Ordered take 1 tablet by [facility] every twelve hours Losartan Potassium 25 [...] sigmoid colon] Onset: 11-03-2022 Chronic Essential hypertension (16 sources) Essential (primary) hypertension; Translations: [Hypertensive disorder] Onset: 06-18-2015 07-18-2022 Chronic Genitourinary symptoms and ill-defined conditions (20 sources) Samir hematuria; Translations: [Nocturia] Onset: 01-30-2019 Resolved: 03-09-2019 12-18-2019 Episodic Heart valve disorders (2 sources) Nonrheumatic mitral (valve) insufficiency; Translations: [Nonrheumatic mitral (valve) insufficiency] Onset: 11-08-2024 Chronic Hyperplasia of prostate (17 sources) Benign prostatic hypertrophy with outflow obstruction; [...] seasonal allergic rhinitis] Onset: 11-18-2016 07-18-2022 Chronic Pulmonary heart disease (2 sources) Pulmonary hypertension, unspecified; Translations: [Pulmonary hypertension, unspecified] Onset: 11-08-2024 Chronic Residual codes; unclassified (2 sources) Immunization [...] 09-07-2022 Episodic Other aftercare (1 source) Other ocean transportation intermediary (current) drug therapy; Translations: [OTH DETENTION CURRENT [...] Test Name Value Interpretation Reference Range Facility 36on 02-04-2025 36 Detailed voicemail l eft for patient. Melanie Vickers MA [facility] [address] Plasencia: Ariana I put in a request for right and left heart catheterization on this patient per CT surgery request. Please inform the patient to expect a call from the Clothes Marker to schedule it [facility] 36on 02-03-2025 36 Patient was seen by CT surgery for possible mitral valve repair. CT surgery team reached out to me requesting right and left heart catheterization before proceeding with surgery. Will go ahead and schedule it and inform the patient [facility] on 01-31-2025 36 John Plasencia MD Geovanna dimitris Mayo MA BMP looks good after increasing losartan dose. Left message for patient advising him of his blood test results. [facility] Abstracton 01-31-2025 Abstract [id number] Anna Nelson 1950 M Date Provider Department Center 01/31/2025 2020-FLOYD MCDUFFIE HVCTS MD [facility] Family History Problem Relation Age of Onset Diverticulitis Mother Cancer Mother Accidental Brother Family Status - Relation Status Age at Mother Father Sister Alive Brother [facility] Consulton 01-30-2025 Consult [id number] Anna Nelson L 1950 M Date Provider Department Center 01/30/2025 SANJU PEDERSEN JHVCTS MD [facility] Family History Problem Relation Age of Onset Diverticulitis Mother Cancer Mother Accidental Brother Family Status - Relation Status Age at Mother Father Sister Alive Brother Level of Service:60975 [place] OFFICE/OP CONSLTJ NEW/EST PT HIGH MDM 55 MINUTES Reason for Visit and Comments: Consult [484] - Mitral valve [facility] 36on 01-22-2025 36 01/22/25 2nd attempt to reach patient to schedule no answer lmom to cb SR [facility] 36on 01-21-2025 36 Call placed to patie nt to schedule appointment no answer left message to call back. [facility] Telephoneon 01-21-2025 Telephone [id number] Anna Nelson n L 1950 M Date Provider Department Center 01/21/2025 [id number] THOMAS HVCTS MD [facility] Family History Problem Relation Age of Onset Diverticulitis Mother Cancer Mother Accidental Brother Family Status - Relation Status Age at Mother Father Sister Alive Brother Reason for Visit and Comments: Referral [825] [facility] Office Visiton 01-13-2025 Follow-up visit [id number] Anna Nelson n L 1950 M Date Provider Department Center 01/13/2025 [id number] PLASENCIA [facility] Family History Problem Relation Age of Onset Diverticulitis Mother Cancer Mother Accidental Brother Family Status - Relation Status Age at Mother Father Sister Alive Brother Level of Service:06860 [place] OFFICE/OUTPATIENT ESTABLISHED MOD MDM 30 MIN Reason for Visit and Comments: Follow-up [159737] - Follow up labs and ALEXEI Hypertension [085631] [facility] ANEAlfonso 12-20-2024 ANES Attestation signed by Radha Yi [...] 12/20/24 1030 Procedure: TRANSESOPHAGEAL ECHO (ALEXEI) Location: [facility] Vascular Lab Clinical information reviewed: [facility] Meds Physical Exam Airway Mallampati: III Cardiovascular Rhythm: regular Rate: normal (+) murmur Dental Pulmonary (-) decreased breath sounds Abdominal (-) obese Anesthesia Plan Additional Equipment Requests Normal [facility] HPon 12-20-2024 Attestation signed by Radha Yi MD at [...] hospital admission) X-ray chest 2 views 11/23/2022 [id number] Final Review of Systems All other systems [...] evaluation of MR. Cesar Agarwal MD PGY-5 Applications Coordinator [facility] Pager # [phone] Normal [facility] NURSNOTEon 12-20-2024 NURSNOTE Bedside swallow stud [...] any questions or concerns if pt verbalized. [facility] Telephoneon 12-13-2024 Telephone [id number] Anna Nelson 1950 M Date Provider Department Center 12/13/2024 ARMIN MORE [facility] Family History Problem Relation Age of Onset Diverticulitis Mother Cancer Mother Family Status - Relation Status Age at Mother [facility] 36on 11-15-2024 36 Regarding lab result s from 11/13/2024: MD Eneida Smieon MA Lipids look very good. Continue current diet and exercise. LM on patient's VM. [facility] Office Visiton 11-08-2024 Follow-up visit [id number] Anna Nelson 1950 M Date Provider Department Center 11/08/2024 [id number] PLASENCIA [facility] Family History Problem Relation Age of Onset Diverticulitis Mother Cancer Mother Family Status - Relation Status Age at Mother Level of Service:97158 [place] OFFICE/OUTPATIENT NEW MODERATE MDM 45 MINUTES Reason for Visit and Comments: Hypertension [455399] Heart Murmur [124] - Had EKG and echo a few weeks ago. He denies chest pain, SOB, and palpitations. [facility] Ambulatory Visit Summaryon 0 10-16-2024 Ambulatory Visit Summary Ambulatory Visit Summary DARRELL NELSON :1950 Visit Date:10/16/2024 Ambulatory Visit Instructions Your Diagnosis Elevated PSA BPH with urinary obstruction Epididymitis Your Care Team Attending Physician - KARLEE [...] nephrolithotomy (10/11/2017), Cystoscopic removal of ureteric stent (2018), ESWL - Extracorporeal shockwave lithotripsy for renal [...] Appointments Monday 8:45 AM EDT With: Rock LUJAN MD Where: [facility] [address], [address] [place] [address]- You Need to Schedule the Following Appointments Follow Up with Rock LUJAN MD, URL When: Where: [address] [facility] [place] [address]- Medications What How Much When Instructions Unchanged [...] that yo (more content not included)... Normal [facility] Urology Office/Clinic Noteon 10-16-2024 Urology Office/Clinic [...] with voice recognition artificial intelligence software, specifically [employer] and or [employer]. Substitutions may have occurred due to the [...] Contact Information KARLEE GA, Rock Pollock, URL [address] [place] [address] [address]- Additional Instructions: 6 mos w/ PSA free [...] calculus (02/11/2016), Cys (more content not included)... [facility] Comment on above: Result Comment: Elec tronically Signed By: Rock LUJAN MD\.br\Date and Time Signed: 10/16/24 08:34 EST\.br\Electronically Co-Signed By: Rianna March\.br\Date and Time Co-Signed: 10/16/24 08:31 EST Lab Reportson 03-21-2024 Lab Reports [id number] [facility] Screenson 03-21-2024 Screens [id number]#[id number] [facility] Ambulatory Visit Summaryon 0 03-20-2024 Ambulatory Visit Summary DARRELL NELSON Emmanuelle :1950 Visit Date:03/20/2024 Ambulatory Visit Instructions Your Diagnosis BPH with urinary obstruction Elevated PSA Epididymitis Your Care Team Attending Physician - KARLEE GA, Rock Pollock Primary Care Physician - ABIGAIL SANCHZE MD This Is Your Medications List tamsulosin [...] GA, Rock Pollock Where: [facility] Patient Educationon 03-20-20 Patient Education Urology [...] Follow these instructions at home: ? Take xjlr-gdt-wlepxtp and prescription medicines only as told by [...] the medicine (more content not included)... Normal [facility] Urology Office/Clinic Noteon 03-20-2024 Urology Office/Clinic [...] with voice recognition artificial intelligence software, specifically [employer], [employer] and or [employer]. Substitutions may have occurred due to the [...] Information KARLEE GA, Rock Pollock, URL [address] [place], [place] [id number]- Additional Instructions: 6 mos w/ PSA free [...] bilateral ingui (more content not included)... Normal [facility] Comment on above: Result Comment: Elec tronically Signed By: Rock LUJAN MD\.br\Date and Time Signed: 03/20/24 09:03 EDT\.br\Electronically Co-Signed By: Rianna March\.br\Date and Time Co-Signed: 03/20/24 09:00 EDT PSA, FREE AND TOTAL RATIOon 02-09-2023 % Free PSA 19.7 % Normal [facility] Comment on above: Result Comment: The [...] men. Performed By: #### P SAFREE #### [facility] [address] [address] [address] Vaishali Dorsey Prostate specific Ag [Mass/Vol] 7.6 ng/mL Critically high 0.0-4.0 [facility] Comment on above: Result Comment: Dakota PEGUERO methodology. . According to the [place] [employer], Serum PSA should decrease and [...] disease. Performed By: #### P SAFREE #### [facility] [address] [address] [address] Vaishali Dorsey PSA, Free 1.50 ng/mL Normal N/A [facility] Comment on above: Result Comment: Dakota PEGUERO methodology. Performed By: #### P SAFREE #### [facility] [address] [place] [address] Dr. Vaishali Dorsey CBC AUTO DIFFon 11-03-2022 BASO # 0.1 103/ul Normal 0.0-0.1 [facility] Comment on above: Performed By: #### C BC #### [facility] [address] [place] [address] Dr. Vaishali Dorsey Basophils/100 WBC (Bld) 0.6 % Normal 0.2-2.0 [facility] Comment on above: Performed By: #### C BC #### [facility] [address] [place] [address] Dr. Vaishali Dorsey EO # 0.5 103/ul Normal 0.0-0.7 [facility] Comment on above: Performed By: #### C BC #### [facility] [address] [place] [address] Dr. Vaishali Dorsey Eosinophils/100 WBC (Bld) 4.4 % Normal 0.9-7.0 [facility] Comment on above: Performed By: #### C BC #### [facility] [address] [place] [address] Dr. Vaishali Dorsey Erythrocyte distribution width (RBC) [Ratio] 17.2 % Critically high 11.0-15.0 [facility] Comment on above: Performed By: #### C BC #### [facility] [address] [place] [address] Dr. Vaishali Dorsey Hematocrit (Bld) [Volume fraction] 39.6 % Critically low 42.0-54.0 [facility] Comment on above: Performed By: #### C BC #### [facility] [address] [place] [address] Dr. Vaishali Dorsey Hemoglobin (Bld) [Mass/Vol] 11.8 g/dL Critically low 14.0-18.0 [facility] Comment on above: Performed By: #### C BC #### [facility] [address] [place] [address] Dr. Vaishali Dorsey IG # 0.03 10e3/ul Normal 0.00-0.03 [facility] Comment on above: Performed By: #### C BC #### [facility] [address] [place] [address] Dr. Vaishali Dorsey IG % 0.3 % Normal 0.0-0.5 [facility] Comment on above: Performed By: #### C BC #### [facility] [address] [place] [address] Dr. Vaishali Dorsey LYMPH # 4.1 103/ul Critically high 1.2-3.8 [facility] Comment on above: Performed By: #### C BC #### [facility] [address] [place] [address] Dr. Vaishali Dorsey Lymphocytes/100 WBC (Bld) 34.2 % Normal 20.5-60.0 [facility] Comment on above: Performed By: #### C BC #### [facility] [address] [place] [address] Dr. Vaishali Dorsey MANUAL DIFF REQ NO Normal [facility] Comment on above: Performed By: #### C BC #### [facility] [address] [place] [address] Dr. Vaishali Dorsey MCH (RBC) [Entitic mass] 24.5 pg Critically low 25.9-34.0 [facility] Comment on above: Performed By: #### C BC #### [facility] [address] [place] [address] Dr. Vaishali Dorsey MCHC (RBC) [Mass/Vol] 29.8 g/dL Critically low 29.9-35.2 [facility] Comment on above: Performed By: #### C BC #### [facility] [address] [place] [address] Dr. Vaishali Dorsey MCV (RBC) [Entitic vol] 82.2 fL Normal 80.0-94.0 [facility] Comment on above: Performed By: #### C BC #### [facility] [address] [place] [address] Dr. Vaishali Dorsey MONO # 1.1 103/ul Critically high 0.3-0.8 [facility] Comment on above: Performed By: #### C BC #### [facility] [address] [place] [address] Dr. Vaishali Dorsey Monocytes/100 WBC (Bld) 9.1 % Normal 1.7-12.0 [facility] Comment on above: Performed By: #### C BC #### [facility] [address] [place] [address] Dr. Vaishali Dorsey NEUT # 6.1 103/ul Normal 1.4-6.5 [facility] Comment on above: Performed By: #### C BC #### [facility] [address] [place] [address] Dr. Vaishali Dorsey Neutrophils/100 WBC (Bld) 51.4 % Normal 43.0-75.0 [facility] Comment on above: Performed By: #### C BC #### [facility] [address] [place] [address] Dr. Vaishali Dorsey Platelet mean volume (Bld) [Entitic vol] 10.3 fL Normal 9.5-13.5 [facility] Comment on above: Performed By: #### C BC #### [facility] [address] [place] [address] Dr. aVishali Dorsey PLT 231 103/ul Normal 150-450 [facility] Comment on above: Performed By: #### C BC #### [facility] [address] [place] [address] Dr. Vaishali Dorsey RBC 4.82 106/ul Normal 4.70-6.[address] [facility] Comment on above: Performed By: #### C BC #### [facility] [address] [place] [address] Dr. Vaishali Dorsey WBC 11.9 103/ul Critically high 4.0-11.0 [facility] Comment on above: Performed By: #### C BC #### [facility] [address] [place] [address] ABD/PELV W CONon 11-03-19 CT ABD/PELV W CON EXAMINATION: CT ABD/ [...] OLIVER CHAVEZ Date: 2022-11-03 13:53 Normal [facility] PROF CHEM 8 (BAS METB)on Anion gap [Moles/Vol] 10.3 mmol/L Normal [facility] Comment on above: Performed By: #### B MP ####[facility] [address] [address]Dr. Vaishali Dorsey Calcium [Mass/Vol] 9.2 mg/dL Normal 8.5-10.[address] [facility] Comment on above: Performed By: #### B MP ####[facility] [address] [id number]. Vaishali Dorsey Chloride [Moles/Vol] 105 mmol/L Normal 98-[address] [facility] Comment on above: Performed By: #### B MP ####[facility] [address] [id number]. Vaishali Dorsey CO2 [Moles/Vol] 32.4 mmol/L Critically high 21.0-32.[address] [facility] Comment on above: Performed By: #### B MP ####[facility] [address] [address]Dr. Vaishali Dorsey Creatinine [Mass/Vol] 1.00 mg/dL Normal 0.70-1.[address] [facility] Comment on above: Performed By: #### B MP ####[facility] [address] [address]Dr. Vaishali Dorsey EGFR-AF EMIRATI >60 Normal >=[address] [facility] Comment on above: Performed By: #### B MP ####[facility] [address] [place], [place] [address]Dr. Vaishali Dorsey EGFR-NON AF EMIRATI >60 Normal >=[address] [facility] Comment on above: Performed By: #### B MP ####[facility] [address] [place], [place] [address]Dr. Vaishali Dorsey Glucose [Mass/Vol] 101 mg/dL Normal 74-[address] [facility] Comment on above: Performed By: #### B MP ####[facility] [address] [place], [place] [address]Dr. Vaishali Dorsey Potassium [Moles/Vol] 5.7 mmol/L Critically high 3.5-5.[address] [facility] Comment on above: Performed By: #### B MP ####[facility] [address] [place], [place] [address]Dr. Vaishali Dorsey Sodium [Moles/Vol] 142 mmol/L Normal 136-[address] [facility] Comment on above: Performed By: #### B MP ####[facility] [address] [place], [place] [address]Dr. Vaishali Dorsey Urea nitrogen [Mass/Vol] 13.0 mg/dL Normal 7.0-18.[address] [facility] Comment on above: Performed By: #### B MP ####[facility] [address] [place], [place] [address]Dr. Vaishali Dorsey Urea nitrogen/Creatinin e [Mass ratio] 13.0 mg/mg Normal [facility] Comment on above: Performed By: #### B MP ####[facility] [address] [place], [place] [address]ZkDr. Vaishali Dorsey PROTIMEon 11-03-2022 INR Coag (PPP) [Relative time] 0.96 {INR} Normal [facility] Comment on above: Performed By: #### P T #### [facility] [address] [address] [address] Vaishali Dorsey INR GUIDELINES SEE BELOW Normal [facility] Comment on above: Result Comment: JOSEF RED INR: 2.0 - 3.0 CONDITIONS NOT LISTED BELOW 2.5 - 3.5 FOR PROSTHETIC HEART VALVE REPLACEMENT 2.5 - 3.5 RECURRENT THROMBOSIS Performed By: #### P T #### [facility] [address] [address] [address] Vaishali Dorsey PT Coag (PPP) [Time] 10.2 s Normal 9.0-11.[address] [facility] Comment on above: Performed By: #### P T #### [facility] [address] [address] [address] Vaishali Dorsey Covid-19 PCR (CVDTB)on 08-03 SARS-CoV-2 (COVID-19) RNA NICK+probe Ql (Unsp spec) Not detected Normal NOT DETECTED [facility] Comment on above: Result Comment: When [...] for this test is supported by the Water Valve Repairer of Health and Human Service's declaration that [...] used). Performed By: #### C VDTBH #### [facility] [address] [address] [address] Vaishali Dorsey CBC AUTO DIFFon 06-28-2022 BASO # 0.1 103/ul Normal 0.0-0.1 [facility] Comment on above: Performed By: #### C BC #### [facility] [address] [place] [address] Dr. Vaishali Dorsey Basophils/100 WBC (Bld) 0.6 % Normal 0.2-2.0 [facility] Comment on above: Performed By: #### C BC #### [facility] [address] [place] [address] Dr. Vaishali Dorsey EO # 0.3 103/ul Normal 0.0-0.7 [facility] Comment on above: Performed By: #### C BC #### [facility] [address] [place] [address] Dr. Vaishali Dorsey Eosinophils/100 WBC (Bld) 2.0 % Normal 0.9-7.0 [facility] Comment on above: Performed By: #### C BC #### [facility] [address] [place] [address] Dr. Vaishali Dorsey Erythrocyte distribution width (RBC) [Ratio] 16.4 % Critically high 11.0-15.0 [facility] Comment on above: Performed By: #### C BC #### [facility] [address] [place] [address] Dr. Vaishali Dorsey Hematocrit (Bld) [Volume fraction] 38.0 % Critically low 42.0-54.0 [facility] Comment on above: Performed By: #### C BC #### [facility] [address] [place] [address] Dr. Vaishali Dorsey Hemoglobin (Bld) [Mass/Vol] 11.8 g/dL Critically low 14.0-18.0 [facility] Comment on above: Performed By: #### C BC #### [facility] [address] [place] [address] Dr. Vaishali Dorsey IG # 0.04 10e3/ul Critically high 0.00-0.03 [facility] Comment on above: Performed By: #### C BC #### [facility] [address] [place] [address] Dr. Vaishali Dorsey IG % 0.3 % Normal 0.0-0.5 [facility] Comment on above: Performed By: #### C BC #### [facility] [address] [place] [address] Dr. Vaishali Dorsey LYMPH # 3.6 103/ul Normal 1.2-3.8 [facility] Comment on above: Performed By: #### C BC #### [facility] [address] [place] [address] Dr. Vaishali Dorsey Lymphocytes/100 WBC (Bld) 28.4 % Normal 20.5-60.0 [facility] Comment on above: Performed By: #### C BC #### [facility] [address] [place] [address] Dr. Vaishali Dorsey MANUAL DIFF REQ NO Normal [facility] Comment on above: Performed By: #### C BC #### [facility] [address] [place] [address] Dr. Vaishali Dorsey MCH (RBC) [Entitic mass] 25.2 pg Critically low 25.9-34.0 [facility] Comment on above: Performed By: #### C BC #### [facility] [address] [place] [address] Dr. Vaishali Dorsey MCHC (RBC) [Mass/Vol] 31.1 g/dL Normal 29.9-35.2 [facility] Comment on above: Performed By: #### C BC #### [facility] [address] [place] [address] Dr. Vaishali Dorsey MCV (RBC) [Entitic vol] 81.0 fL Normal 80.0-94.[address] [facility] Comment on above: Performed By: #### C BC #### [facility] [address] [place] [address] Dr. Vaishali Dorsey MONO # 1.1 103/ul Critically high 0.3-0.8 [facility] Comment on above: Performed By: #### C BC #### [facility] [address] [place] [address] Dr. Vaishali Dorsey Monocytes/100 WBC (Bld) 8.3 % Normal 1.7-12.0 [facility] Comment on above: Performed By: #### C BC #### [facility] [address] [place] [address] Dr. Vaishali Dorsey NEUT # 7.6 103/ul Critically high 1.4-6.[address] [facility] Comment on above: Performed By: #### C BC #### [facility] [address] [place] [address] Dr. Vaishali Dorsey Neutrophils/100 WBC (Bld) 60.4 % Normal 43.0-75.[address] [facility] Comment on above: Performed By: #### C BC #### [facility] [address] [place] [address] Dr. Vaishali Dorsey Platelet mean volume (Bld) [Entitic vol] 10.7 fL Normal 9.5-13.[address] [facility] Comment on above: Performed By: #### C BC #### [facility] [address] [place] [address] Dr. Vaishali Dorsey PLT 226 103/ul Normal 150-[address] [facility] Comment on above: Performed By: #### C BC #### [facility] [address] [place] [address] Dr. Vaishali Dorsey RBC 4.69 106/ul Critically low 4.70-6.[address] [facility] Comment on above: Performed By: #### C BC #### [facility] [address] [place] [address] Dr. Vaishali Dorsey WBC 12.6 103/ul Critically high 4.0-11.[address] [facility] Comment on above: Performed By: #### C BC #### [facility] [address] [place] [address] Dr. Vaishali Dorsey FERRITINon 06-28-2022 Ferritin [Mass/Vol] 8.0 ng/mL Critically low 26.0-388.[address] [facility] Comment on above: Performed By: #### F ERR #### [facility] [address] [place] [address] Dr. Vaihsali Dorsey PROF 14(COMP METB)on 022 Albumin [Mass/Vol] 3.8 g/dL Normal 3.4-5.0 [facility] Comment on above: Performed By: #### C MP #### [facility] [address] [place] [address] Dr. Vaishali Dorsey Albumin/Globulin [Mass ratio] 1.1 {ratio} Normal [facility] Comment on above: Performed By: #### C MP #### [facility] [address] [place] [address] Dr. Vaishali Dorsey ALP [Catalytic activity/Vol] 66 U/L Normal 46-[address] [facility] Comment on above: Performed By: #### C MP #### [facility] [address] [place] [address] Dr. Vaishali oDrsey ALT [Catalytic activity/Vol] 22 U/L Normal 16-[address] [facility] Comment on above: Performed By: #### C MP #### [facility] [address] [place] [address] Dr. Vaishali Dorsey Anion gap [Moles/Vol] 10.4 mmol/L Normal [facility] Comment on above: Performed By: #### C MP #### [facility] [address] [place] [address] Dr. Vaishali Dorsey AST [Catalytic activity/Vol] 19 U/L Normal 15-[address] [facility] Comment on above: Performed By: #### C MP #### [facility] [address] [place] [address] Dr. Vaishali Dorsey Bilirubin [Mass/Vol] 0.2 mg/dL Normal 0.2-1.[address] [facility] Comment on above: Performed By: #### C MP #### [facility] [address] [place] [address] Dr. Vaishali Dorsey Calcium [Mass/Vol] 9.2 mg/dL Normal 8.5-10.[address] [facility] Comment on above: Performed By: #### C MP #### [facility] [address] [address] [address] Vaishali Dorsey Chloride [Moles/Vol] 107 mmol/L Normal 98-[address] [facility] Comment on above: Performed By: #### C MP #### [facility] [address] [place] [address] Dr. Vaishali Dorsey CO2 [Moles/Vol] 31.2 mmol/L Normal 21.0-32.0 [facility] Comment on above: Performed By: #### C MP #### [facility] [address] [place] [address] Dr. Vaishali Dorsey Creatinine [Mass/Vol] 1.02 mg/dL Normal 0.70-1.[address] [facility] Comment on above: Performed By: #### C MP #### [facility] [address] [place] [address] Dr. Vaishali Dorsey EGFR-AF EMIRATI >60 Normal >=[address] [facility] Comment on above: Performed By: #### C MP #### [facility] [address] [place] [address] Dr. Vaishali Dorsey EGFR-NON AF EMIRATI >60 Normal >=[address] [facility] Comment on above: Performed By: #### C MP #### [facility] [address] [place] [address] Dr. Vaishali Dorsey Globulin (S) [Mass/Vol] 3.6 g/dL Normal [facility] Comment on above: Performed By: #### C MP #### [facility] [address] [place] [address] Dr. Vaishali Dorsey Glucose [Mass/Vol] 101 mg/dL Normal 74-[address] [facility] Comment on above: Performed By: #### C MP #### [facility] [address] [place] [address] Dr. Vaishali Dorsey Potassium [Moles/Vol] 4.6 mmol/L Normal 3.5-5.[address] [facility] Comment on above: Performed By: #### C MP #### [facility] [address] [place] [address] Dr. Vaishali Dorsey Protein [Mass/Vol] 7.4 g/dL Normal 6.4-8.2 [facility] Comment on above: Performed By: #### C MP #### [facility] [address] [address] [address] Vaishali Dorsey Sodium [Moles/Vol] 144 mmol/L Normal 136-145 [facility] Comment on above: Performed By: #### C MP #### [facility] [address] [address] [address] Vaishali Dorsey Urea nitrogen [Mass/Vol] 14.0 mg/dL Normal 7.0-18.0 [facility] Comment on above: Performed By: #### C MP #### [facility] [address] [address] [address] Vaishali Dorsey Urea nitrogen/Creatinin e [Mass ratio] 13.7 mg/mg Normal [facility] Comment on above: Performed By: #### C MP #### [facility] [address] [address] [address] Vaishali Dorsey PSA, FREE AND TOTAL RATIOon 04-21-2022 % Free PSA 18.9 % Normal [facility] Comment on above: Result Comment: The [...] men. Performed By: #### P SAFREE #### [facility] [address] [place] [address] Dr. Vaishali Dorsey Prostate specific Ag [Mass/Vol] 6.5 ng/mL Critically high 0.0-4.0 [facility] Comment on above: Result Comment: Dakota trejo ECLIA methodology. . According to the [place] [employer], Serum PSA should decrease and [...] disease. Performed By: #### P SAFREE #### [facility] [address] [place], [place] [address] Dr. Vaishali Dorsey PSA, Free 1.23 ng/mL Normal N/A [facility] Comment on above: Result Comment: Dakota terjo ECLIA methodology. Performed By: #### P SAFREE #### [facility] [address] [place], [place] [address] Dr. 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 This test has not been FDA [...] is terminated or revoked sooner. PERFORMED BY: [address] [place] [address] PATHOLOGIST LADLE POURER KAMERON MARTIN M.D. Performed By: #### C OVID 19 [facility] #### [address] [place] [address] [facility] Basic Metabolic Panlon 10-22 Anion gap 12 mmol/L Normal 9-18 [facility] Comment on above: Performed By: #### I CA, CBCDIF, VITD, PTHI, CMP, URIC ####[place] [id number] [place] [address] [place] [phone] Calcium 8.2 mg/dL Low 8.5-10.2 [facility] Comment on above: Performed By: #### I CA, CBCDIF, VITD, PTHI, CMP, URIC ####[place] [address] [address] [place] [phone] Chloride 102 mmol/L Normal 97-105 [facility] Comment on above: Performed By: #### I CA, CBCDIF, VITD, PTHI, CMP, URIC ####[place] [address] [address] [place] [phone] CO2 26 mmol/L Normal 22-30 [facility] Comment on above: Performed By: #### I CA, CBCDIF, VITD, PTHI, CMP, URIC ####[place] [address] [place] [place] [phone] Creatinine 0.98 mg/dL Normal 0.73-1.22 [facility] Comment on above: Performed By: #### I CA, CBCDIF, VITD, PTHI, CMP, URIC ####[place] [address] [address] [place] [phone] eGFR (non-black) mL/min/{1.73_m2} Normal Cl [facility] Comment on above: Result Comment: eGFR (Estimated [...] I CA, CBCDIF, VITD, PTHI, CMP, URIC ####[place] [id number] [place], [place] [phone] Glucose mass conc 85 mg/dL Normal 74-99 [facility] Comment on above: Result Comment: The [place] [employer] (ADA) provides guidance for cutoff [...] Standards of Medical Care in Diabetes 2016, [place] [employer]. Diabetes Care. 2016.39(Suppl 1). Performed By: #### I CA, CBCDIF, VITD, PTHI, CMP, URIC ####[address] [phone] Potassium molar conc 3.5 mmol/L Low 3.7-5.1 [facility] Comment on above: Performed By: #### I CA, CBCDIF, VITD, PTHI, CMP, URIC ####[place] [id number] [place], [place] [phone] Sodium 140 mmol/L Normal 136-144 [facility] Comment on above: Performed By: #### I CA, CBCDIF, VITD, PTHI, CMP, URIC ####[place] [address] [place], [place] [phone] Urea nitrogen 5 mg/dL Low 9-24 [facility] Comment on above: Performed By: #### I CA, CBCDIF, VITD, PTHI, CMP, URIC ####[place] [address] [place] [address] [place] [phone] CBCon 10-22-2017 Erythrocyte distribution width Auto Ratio (RBC) 13.1 % Normal 11.5-15.0 [facility] Comment on above: Performed By: #### I CA, CBCDIF, VITD, PTHI, CMP, URIC ####[place] [address] [address] [place] [phone] Erythrocytes (RBC) 10*6/uL Normal <0.01 [facility] Comment on above: Performed By: #### I CA, CBCDIF, VITD, PTHI, CMP, URIC ####[place] [address] [address] [place] [phone] Erythrocytes (RBC) 3.32 10*6/uL Low 4.20-6.00 [facility] Comment on above: Performed By: #### I CA, CBCDIF, VITD, PTHI, CMP, URIC ####[place] [address] [address] [place] [phone] Hematocrit (HCT) 29.6 % Low 39.0-51.0 [facility] Comment on above: Performed By: #### I CA, CBCDIF, VITD, PTHI, CMP, URIC ####[place] [address] [address] [place] [phone] Hemoglobin mass conc (Bld) 9.8 g/dL Low 13.0-17.0 [facility] Comment on above: Performed By: #### I CA, CBCDIF, VITD, PTHI, CMP, URIC ####[place] [address] [address] [place] [phone] MCH 29.5 pG Normal 26.0-34.0 [facility] Comment on above: Performed By: #### I CA, CBCDIF, VITD, PTHI, CMP, URIC ####[place] [address] [place], [place] [phone] MCHC mass conc (RBC) 33.1 g/dL Normal 30.5-36.0 [facility] Comment on above: Performed By: #### I CA, CBCDIF, VITD, PTHI, CMP, URIC ####[facility] [place], [place] [phone] MCV 89.2 fL Normal 80.0-100.0 [facility] Comment on above: Performed By: #### I CA, CBCDIF, VITD, PTHI, CMP, URIC ####[address] [place] [place], [place] [phone] Platelet mean volume (PMV) 10.5 fL Normal 9.0-12.7 [facility] Comment on above: Performed By: #### I CA, CBCDIF, VITD, PTHI, CMP, URIC ####[address] [phone] Platelets 267 10*3/uL Normal 150-400 [facility] Comment on above: Performed By: #### I CA, CBCDIF, VITD, PTHI, CMP, URIC ####[address] [phone] WBC (Leukocytes) 10.19 10*3/uL Normal 3.70-11.00 [facility] Comment on above: Performed By: #### I CA, CBCDIF, VITD, PTHI, CMP, URIC ####[address] [place], [place] [phone] CNDSon 10-22-2017 CNDS HNO ID: [id number] thor: Feliciano Santanaervice: UrologyAuthor Type: PhysicianType: Discharge SummariesFiled: 10/23/2017 8:54 AMNote Text:DISCHARGE SUMMARYPATIENT NAME: Darrell Nelson ADMISSION DATE: 10/21/2017MRN: [id number] DISCHARGE DATE: 10/22/2017Attending Physician: Feliciano NobleReason for Hospitalization: HematuriaActive Problems: LeukocytosisResolved Problems: * No resolved hospital problems. *Operations During Hospitalization: NoneProcedures During Hospitalization: cystoscopy, [facility] eHospital Course: Patient was admitted from OSH [...] of this patient.SIGNATURE: Tk Abdalla MD PAGER: [phone]: October 22, 2017TIME: 9:32 AMRADHA Johnirector, [facility], [facility] Urologic InstituteProfessor of Surgery, [facility], Edwin ShawPager [phone]/23/2017 Normal Mookievellucy d [facility] PROGRESSon 10-22-2017 PROGRESS HNO ID: [id number] thor: Tk (Sudeep) NIK Abdallaervice: UrologyAuthor Type: ResidentType: Progress NotesFiled: 10/22/2017 9:14 [...] lb 4 oz) SpO2 95% BMI 25.43 kg/r1Kvnqlueskuw max: Temp (24hrs), Av.1 ?C (98.7 ?F), Min:36.8 ?C (98.3?F), Max:37.2 ?C (99 ?F)Intake/Output 10/21/17 0700 - 10/22/17 0659 10/22/17 0700 - 10/23/17 0659 Intake (ml) 2180 -- Output (ml) 2550 650 Net (ml) -370 -650LABS:BUN (mg/dL)Date Value10/22/2017 501 801 701/08/2018 912 10 Creatinine (mg/dL)Date Value10/22/2017 0.9801 0.9201 0.9001 1.0012 1.05 Recent Labs 269087VCL 10.19HB 9.8*HCT 29.6*NA 140K 3.5*CHLOR 102CO2 26GLUC 85Glucose, Urine (mg/dL)Date Value10/21/2017 Negative Bilirubin, Urine (no units)Date Value10/21/2017 Negative Ketones, Urine (no units)Date Value10/21/2017 Negative Specific [place], Ur (no units)Date Value10/21/2017 1.010 Hemoglobin/Blood ,Ur ( )Date Value10/21/2017 3+ (A) pH, Urine (no units)Date Value10/21/2017 6.0 Protein, Urine (mg/dL)Date Value10/21/2017 30 (A) Nitrites (no units)Date Value10/21/2017 Negative WBC, Urine (/HPF)Date Value10/21/2017 >25 (A) Color (no units)Date Value10/21/2017 Yellow Clarity (no units)Date Value10/21/2017 Cloudy (A) Assessment/PlanAct [facility] Problems Leukocytosis [D72.829]Mr. Nelson is [...] prophylaxis?SIGNATURE: Tk Abdalla MD PATIENT NAME: Darrell CmdDATE: October 22, 2017 : 7:31 AM PAGER/CONTACT #: [phone] Normal [facility] Basic Metabolic Panlon 10-21 Anion gap 14 mmol/L Normal 9-18 [facility] Comment on above: Performed By: #### I CA, CBCDIF, VITD, PTHI, CMP, URIC ####[facility] [address] [place], [place] [phone] Calcium 8.3 mg/dL Low 8.5-10.2 [facility] Comment on above: Performed By: #### I CA, CBCDIF, VITD, PTHI, CMP, URIC ####[facility] [address], [place] [phone] Chloride 104 mmol/L Normal 97-105 [facility] Comment on above: Performed By: #### I CA, CBCDIF, VITD, PTHI, CMP, URIC ####[facility] [address]CS[address], [place] [phone] CO2 25 mmol/L Normal 22-30 [facility] Comment on above: Performed By: #### I CA, CBCDIF, VITD, PTHI, CMP, URIC ####[facility] [place], [place] [phone] Creatinine 0.92 mg/dL Normal 0.73-1.22 [facility] Comment on above: Performed By: #### I CA, CBCDIF, VITD, PTHI, CMP, URIC ####[facility] [place], [place] [phone] eGFR (non-black) mL/min/{1.73_m2} Normal [facility] Comment on above: Result Comment: eGFR (Estimated [...] I CA, CBCDIF, VITD, PTHI, CMP, URIC ####[facility] [place], [place] [phone] Glucose mass conc 79 mg/dL Normal 74-99 [facility] Comment on above: Result Comment: The [place] Diabetes [employer] (ADA) provides guidance for cutoff [...] Standards of Medical Care in Diabetes 2016, [place] [employer]. Diabetes Care. 2016.39(Suppl 1). Performed By: #### I CA, CBCDIF, VITD, PTHI, CMP, URIC ####[place] [address] [address] [place] [phone] Potassium molar conc 3.7 mmol/L Normal 3.7-5.1 [facility] Comment on above: Performed By: #### I CA, CBCDIF, VITD, PTHI, CMP, URIC ####[place] [address] [address] [place] [phone] Sodium 143 mmol/L Normal 136-144 [facility] Comment on above: Performed By: #### I CA, CBCDIF, VITD, PTHI, CMP, URIC ####[place] [address] [address] [place] [phone] Urea nitrogen 8 mg/dL Low 9-24 [facility] Comment on above: Performed By: #### I CA, CBCDIF, VITD, PTHI, CMP, URIC ####[address] [place] [phone] CBC and Differentialon 10-21 Abs Baso 0.05 k/uL Normal <0.11 [facility] Comment on above: Performed By: #### I CA, CBCDIF, VITD, PTHI, CMP, URIC ####[place] [address] [place] [phone] Abs Peñuelas 0.81 k/uL Normal <0.87 [facility] Comment on above: Performed By: #### I CA, CBCDIF, VITD, PTHI, CMP, URIC ####[place] [address] [address] [place] [phone] Abs Neut 6.30 k/uL Normal 1.45-7.50 [facility] Comment on above: Performed By: #### I CA, CBCDIF, VITD, PTHI, CMP, URIC ####[place] [address] [address] [place] [phone] Basophils/100 WBC Auto (Bld) 0.5 % Normal [facility] Comment on above: Performed By: #### I CA, CBCDIF, VITD, PTHI, CMP, URIC ####[place] [address] [address] [place] [phone] DTYPE Auto Diff Normal [facility] Comment on above: Performed By: #### I CA, CBCDIF, VITD, PTHI, CMP, URIC ####[place] [address] [address] [place] [phone] Eosinophils 0.24 10*3/uL Normal <0.46 [facility] Comment on above: Performed By: #### I CA, CBCDIF, VITD, PTHI, CMP, URIC ####[place] [address] [address] [place] [phone] Eosinophils/100 leukocytes 2.3 % Normal [facility] Comment on above: Performed By: #### I CA, CBCDIF, VITD, PTHI, CMP, URIC ####[place] [address] [address] [place] [phone] Erythrocyte distribution width Auto Ratio (RBC) 13.1 % Normal 11.5-15.0 [facility] Comment on above: Performed By: #### I CA, CBCDIF, VITD, PTHI, CMP, URIC ####[place] [address] [address] [place] [phone] Erythrocytes (RBC) 3.34 10*6/uL Low 4.20-6.00 [facility] Comment on above: Performed By: #### I CA, CBCDIF, VITD, PTHI, CMP, URIC ####[place] [address] [address] [place] [phone] Erythrocytes (RBC) 10*6/uL Normal <0.01 [facility] Comment on above: Performed By: #### I CA, CBCDIF, VITD, PTHI, CMP, URIC ####[place] [address] [address] [place] [phone] Erythrocytes (RBC) 0.0 /100 WBC Normal 0 [facility] Comment on above: Performed By: #### I CA, CBCDIF, VITD, PTHI, CMP, URIC ####[place] [address] [address] [place] [phone] Hematocrit (HCT) 30.2 % Low 39.0-51.0 [facility] Comment on above: Performed By: #### I CA, CBCDIF, VITD, PTHI, CMP, URIC ####[place] [address] [place] [place] [phone] Hemoglobin mass conc (Bld) 10.2 g/dL Low 13.0-17.0 [facility] Comment on above: Performed By: #### I CA, CBCDIF, VITD, PTHI, CMP, URIC ####[place] [address] [place] [place] [phone] Lymphocytes 3.06 10*3/uL Normal 1.00-4.00 [facility] Comment on above: Performed By: #### I CA, CBCDIF, VITD, PTHI, CMP, URIC ####[place] [address] [address] [place] [phone] Lymphocytes/100 leukocytes 29.3 % Normal [facility] Comment on above: Performed By: #### I CA, CBCDIF, VITD, PTHI, CMP, URIC ####[place] [address] [address] [place] [phone] MCH 30.5 pG Normal 26.0-34.0 [facility] Comment on above: Performed By: #### I CA, CBCDIF, VITD, PTHI, CMP, URIC ####[place] [address] [address] [place] [phone] MCHC mass conc (RBC) 33.8 g/dL Normal 30.5-36.0 [facility] Comment on above: Performed By: #### I CA, CBCDIF, VITD, PTHI, CMP, URIC ####[place] [address] [address], [place] [phone] MCV 90.4 fL Normal 80.0-100.0 [facility] Comment on above: Performed By: #### I CA, CBCDIF, VITD, PTHI, CMP, URIC ####[place] [address] [address] [place] [phone] Monocytes/100 leukocytes 7.7 % Normal [facility] Comment on above: Performed By: #### I CA, CBCDIF, VITD, PTHI, CMP, URIC ####[place] [address] [address], [place] [phone] Neutrophils/100 WBC Auto (Bld) 60.2 % Normal [facility] Comment on above: Performed By: #### I CA, CBCDIF, VITD, PTHI, CMP, URIC ####[place] [address] [place] [phone] Platelet mean volume (PMV) 10.7 fL Normal 9.0-12.7 [facility] Comment on above: Performed By: #### I CA, CBCDIF, VITD, PTHI, CMP, URIC ####[place] [address] [address] [place] [phone] Platelets 260 10*3/uL Normal 150-400 [facility] Comment on above: Performed By: #### I CA, CBCDIF, VITD, PTHI, CMP, URIC ####[place] [address] [address] [place] [phone] WBC (Leukocytes) 10.46 10*3/uL Normal 3.70-11.00 [facility] Comment on above: Performed By: #### I CA, CBCDIF, VITD, PTHI, CMP, URIC ####[facility] [place], [place] [phone] Protimeon 10-21-2017 INR Coag RelTime (Bld) 1.0 {INR} Normal 0.9-1.3 [facility] Comment on above: Result Comment: Laisha min K Antagonist (VKA) Therapeutic Range: INR 2 to 3 (Target INR of 2.5)Note: For patients treated with VKA drugs, such as warfarin, the [place] [employer] 2012 Guideline recommends [...] of 3).Tammy GH, et al. Chest 2012, 141:7S-47SNishimgia RA, et al. JAC 2017, 70: 252-289 Performed By: #### I CA, CBCDIF, VITD, PTHI, CMP, URIC ####[facility] [place], [place] [phone] PT Sec 10.4 sec Normal 9.7-13.0 [facility] Comment on above: Performed By: #### I CA, CBCDIF, VITD, PTHI, CMP, URIC ####[facility] [place], [place] [phone] Type and Screenon 10-21-2017 ABO/RH(D) Positive Normal [facility] Comment on above: Performed By: #### I CA, CBCDIF, VITD, PTHI, CMP, URIC ####[facility] [place], [place] [phone] Antibody Screen Negative Normal [facility] Comment on above: Performed By: #### I CA, CBCDIF, VITD, PTHI, CMP, URIC ####[place] [address] [place] [phone] Urinalysison 10-21-2017 Bilirubin, Urine Negative Normal Negative [facility] Comment on above: Performed By: #### I CA, CBCDIF, VITD, PTHI, CMP, URIC ####[place] [address] [phone] Comments SEE COMMENT Normal [facility] Comment on above: Result Comment: Micr oscopic Examination Performed Performed By: #### I CA, CBCDIF, VITD, PTHI, CMP, URIC ####[place] [address] [address] [place] [phone] Erythrocytes (RBC) 10*6/uL Critically abnormal 0-3 [facility] Comment on above: Performed By: #### I CA, CBCDIF, VITD, PTHI, CMP, URIC ####[place] [address] [address] [place] [phone] Hemoglobin mass conc (Bld) 3+ Critically abnormal Negative [facility] Comment on above: Performed By: #### I CA, CBCDIF, VITD, PTHI, CMP, URIC ####[place] [address] [address] [place] [phone] Leukest 3+ Critically abnormal Negative [facility] Comment on above: Performed By: #### I CA, CBCDIF, VITD, PTHI, CMP, URIC ####[place] [address] [place] [phone] pH of blood 6.0 [pH] Normal 4.5-8.0 [facility] Comment on above: Performed By: #### I CA, CBCDIF, VITD, PTHI, CMP, URIC ####[place] [address] [place] [phone] Protein, Urine 30 mg/dL Critically abnormal Negative [facility] Comment on above: Performed By: #### I CA, CBCDIF, VITD, PTHI, CMP, URIC ####[facility]CSte[address] [place] [phone] Specific [place], Ur 1.010 Normal 1.005-1.03 0 [facility] Comment on above: Performed By: #### I CA, CBCDIF, VITD, PTHI, CMP, URIC ####[facility]ClevelDavid V[place] [phone] Urine Kelby Comment SEE COMMENT Normal [facility] Comment on above: Result Comment: N/A Performed By: #### I CA, CBCDIF, VITD, PTHI, CMP, URIC ####[place] [address]CStephanie [place] [phone] Urine, clarity Cloudy Critically abnormal Clear [facility] Comment on above: Performed By: #### I CA, CBCDIF, VITD, PTHI, CMP, URIC ####[place] [address]CStephanie [place] [phone] Urine, color Yellow Normal Yellow [facility] Comment on above: Performed By: #### I CA, CBCDIF, VITD, PTHI, CMP, URIC ####[place] [address]CStephanie [place] [phone] Urine, epithelial cells in sediment SEE COMMENT Normal [facility] Comment on above: Result Comment: FewS quamous Epithelial Cells Performed By: #### I CA, CBCDIF, VITD, PTHI, CMP, URIC ####[facility] [place] [phone] Urine, glucose presence Negative Normal Negative [facility] Comment on above: Performed By: #### I CA, CBCDIF, VITD, PTHI, CMP, URIC ####[facility] [phone] Urine, ketones presence Negative Normal Negative [facility] Comment on above: Performed By: #### I CA, CBCDIF, VITD, PTHI, CMP, URIC ####[facility] [address]CBritt[address] [place] [phone] Urine, nitrite presence Negative Normal Negative [facility] Comment on above: Performed By: #### I CA, CBCDIF, VITD, PTHI, CMP, URIC ####[facility] [address]CBritt[address] [place] [phone] Urine, urobilinogen Normal Normal Normal [facility] Comment on above: Performed By: #### I CA, CBCDIF, VITD, PTHI, CMP, URIC ####[place] [address] [place] [phone] WBC (Leukocytes) 10*3/uL Critically abnormal 0-5 [facility] Comment on above: Performed By: #### I CA, CBCDIF, VITD, PTHI, CMP, URIC ####[place] [address]CBr[address] [place] [phone] Urine Cultureon 10-21-2017 Urine culture, bacteria Sp. Request/Comment: - Specimen received in preservative Culture Result - No growth (<1,000 CFU/ml) Normal [facility] Comment on above: Performed By: #### I CA, CBCDIF, VITD, PTHI, CMP, URIC ####[place] [address]CBr[address] [place] [phone] HISTORY PHYSICALon 8 HISTORY PHYSICAL HNO ID: [id number] thor: Tk (Res) NIK Abdallaervice: UrologyAuthor Type: ResidentType: HANDPFiled: 10/21/2017 2:31 PMNote Text:HANDP: UROLOGY SERVICENAME: Darrell Handley JeannieRN: [id number]: [id number] DATE: 10/19/2017SERVICE TIME: 5:04 [facility] CARE PHYSICIAN: Abigail Sanchez, [facility] CENTERESSMENT AND PLANMr. Alvin is a 67 year [...] with Dr. Adarsh Abdalla III, MDUrology PGY-2Pager: [phone] 201710:00Overnight and on weekends please page [phone] OF PRESENT ILLNESSMr. Alvin is a 67 [...] and 14mm in R renal pelvis Normal [facility] Basic Metabolic Panlon 10-13 Anion gap 12 mmol/L Normal 9-18 [facility] Comment on above: Performed By: #### I CA, CBCDIF, VITD, PTHI, CMP, URIC ####[place] [address]CBr[address] [place] [phone] Calcium 8.2 mg/dL Low 8.5-10.2 [facility] Comment on above: Performed By: #### I CA, CBCDIF, VITD, PTHI, CMP, URIC ####[place] [address] [address]CBrian [place] [phone] Chloride 103 mmol/L Normal 97-105 [facility] Comment on above: Performed By: #### I CA, CBCDIF, VITD, PTHI, CMP, URIC ####[place] [phone] CO2 25 mmol/L Normal 22-30 [facility] Comment on above: Performed By: #### I CA, CBCDIF, VITD, PTHI, CMP, URIC ####[place] [address] [address]Amand[address] [place] [phone] Creatinine 0.90 mg/dL Normal 0.73-1.22 [facility] Comment on above: Performed By: #### I CA, CBCDIF, VITD, PTHI, CMP, URIC ####[place] [address] [place] [phone] eGFR (non-black) mL/min/{1.73_m2} Normal [facility] Comment on above: Performed By: #### I CA, CBCDIF, VITD, PTHI, CMP, URIC ####[place] [address] [place] [phone] Result Comment: eGFR (Estimated GFR) Units of [...] Glucose mass conc 95 mg/dL Normal 74-99 [facility] Comment on above: Result Comment: The [place] Diabetes Association (ADA) provides guidance for cutoff [...] Standards of Medical Care in Diabetes 2016, [place] [employer]. Diabetes Care. 2016.39(Suppl 1). Performed By: #### I CA, CBCDIF, VITD, PTHI, CMP, URIC ####[facility] [place] [phone] Potassium molar conc 3.9 mmol/L Normal 3.7-5.1 [facility] Comment on above: Performed By: #### I CA, CBCDIF, VITD, PTHI, CMP, URIC ####[facility] [address] [place], [place] [phone] Sodium 140 mmol/L Normal 136-144 [facility] Comment on above: Performed By: #### I CA, CBCDIF, VITD, PTHI, CMP, URIC ####[facility] [place], [place] [phone] Urea nitrogen 7 mg/dL Low 9-24 [facility] Comment on above: Performed By: #### I CA, CBCDIF, VITD, PTHI, CMP, URIC ####[place] [address] [address]CBr[address] [place] [phone] CBC and Differentialon 10-13 Abs Baso 0.03 k/uL Normal <0.11 [facility] Comment on above: Performed By: #### I CA, CBCDIF, VITD, PTHI, CMP, URIC ####[place] [address] [place] [phone] Abs Peñuelas 1.28 k/uL High <0.87 [facility] Comment on above: Performed By: #### I CA, CBCDIF, VITD, PTHI, CMP, URIC ####[place] [address] [place] [phone] Abs Neut 8.97 k/uL High 1.45-7.50 [facility] Comment on above: Performed By: #### I CA, CBCDIF, VITD, PTHI, CMP, URIC ####[place] [address] [place] [phone] Basophils/100 WBC Auto (Bld) 0.2 % Normal [facility] Comment on above: Performed By: #### I CA, CBCDIF, VITD, PTHI, CMP, URIC ####[place] [address] [place] [phone] DTYPE Auto Diff Normal [facility] Comment on above: Performed By: #### I CA, CBCDIF, VITD, PTHI, CMP, URIC ####[place] [address] [place] [phone] Eosinophils 0.20 10*3/uL Normal <0.46 [facility] Comment on above: Performed By: #### I CA, CBCDIF, VITD, PTHI, CMP, URIC ####[place] [address] [place] [phone] Eosinophils/100 leukocytes 1.6 % Normal [facility] Comment on above: Performed By: #### I CA, CBCDIF, VITD, PTHI, CMP, URIC ####[place] [address]CBr[address] [place] [phone] Erythrocyte distribution width Auto Ratio (RBC) 12.4 % Normal 11.5-15.0 [facility] Comment on above: Performed By: #### I CA, CBCDIF, VITD, PTHI, CMP, URIC ####[place] [address] [place] [phone] Erythrocytes (RBC) 4.29 10*6/uL Normal 4.20-6.00 [facility] Comment on above: Performed By: #### I CA, CBCDIF, VITD, PTHI, CMP, URIC ####[place] [address] [place] [phone] Erythrocytes (RBC) 0.0 /100 WBC Normal 0 [facility] Comment on above: Performed By: #### I CA, CBCDIF, VITD, PTHI, CMP, URIC ####[place] [address] [place] [phone] Erythrocytes (RBC) 10*6/uL Normal <0.01 [facility] Comment on above: Performed By: #### I CA, CBCDIF, VITD, PTHI, CMP, URIC ####[place] [address] [place] [phone] Hematocrit (HCT) 38.8 % Low 39.0-51.0 [facility] Comment on above: Performed By: #### I CA, CBCDIF, VITD, PTHI, CMP, URIC ####[place] [address] [place] [phone] Hemoglobin mass conc (Bld) 12.7 g/dL Low 13.0-17.0 [facility] Comment on above: Performed By: #### I CA, CBCDIF, VITD, PTHI, CMP, URIC ####[place] [address] [place] [phone] Lymphocytes 2.16 10*3/uL Normal 1.00-4.00 [facility] Comment on above: Performed By: #### I CA, CBCDIF, VITD, PTHI, CMP, URIC ####[place] [address] [place] [phone] Lymphocytes/100 leukocytes 17.1 % Normal [facility] Comment on above: Performed By: #### I CA, CBCDIF, VITD, PTHI, CMP, URIC ####[address] [phone] MCH 29.6 pG Normal 26.0-34.0 [facility] Comment on above: Performed By: #### I CA, CBCDIF, VITD, PTHI, CMP, URIC ####[address] [place] [phone] MCHC mass conc (RBC) 32.7 g/dL Normal 30.5-36.0 [facility] Comment on above: Performed By: #### I CA, CBCDIF, VITD, PTHI, CMP, URIC ####[place] [address] [place] [phone] MCV 90.4 fL Normal 80.0-100.0 [facility] Comment on above: Performed By: #### I CA, CBCDIF, VITD, PTHI, CMP, URIC ####[place] [address] [place] [phone] Monocytes/100 leukocytes 10.1 % Normal [facility] Comment on above: Performed By: #### I CA, CBCDIF, VITD, PTHI, CMP, URIC ####[place] [address] [place] [phone] Neutrophils/100 WBC Auto (Bld) 71.0 % Normal [facility] Comment on above: Performed By: #### I CA, CBCDIF, VITD, PTHI, CMP, URIC ####[place] [address] [place], [place] [phone] Platelet mean volume (PMV) 11.3 fL Normal 9.0-12.7 [facility] Comment on above: Performed By: #### I CA, CBCDIF, VITD, PTHI, CMP, URIC ####[address] [phone] Platelets 138 10*3/uL Low 150-400 [facility] Comment on above: Result Comment: Resu lt checked and verifiedNo clot detected. Performed By: #### I CA, CBCDIF, VITD, PTHI, CMP, URIC ####[place] [address] [place], [place] [phone] WBC (Leukocytes) 12.64 10*3/uL High 3.70-11.00 [facility] Comment on above: Performed By: #### I CA, CBCDIF, VITD, PTHI, CMP, URIC ####[address] [phone] CNDSon 10-13-2017 CNDS HNO ID: [id number] thor: Feliciano KumarbleService: UrologyAuthor Type: PhysicianType: Discharge SummariesFiled: 10/15/2017 3:53 PMNote Text:The [address] [phone] or ([phone]) [facility] O N F I D E N T I A L I N F O R M A T I O N STANDARD [facility] [place] DOCUMENTDISCHARGE SUMMARYPatient Name: Darrell Silverio Date: 10/11/2017Discharge [...] hours for 3 days. Take 1000mg Tylenol (syv912im tablets) every 6 hours for 3 days. [...] plan.Electronically SIGNED by Licensed Independent Practitioner: Carlos dEuardo Dorantes MDDirector, Surgical Stone Disease, [facility] Urologic InstituteProfessor of Surgery, [facility] School of MedicinePager [phone]/15/2017 [facility] PLAN OF CAREon 10-13-2017 PLAN OF CARE HNO ID: [id number] thor: Angelique Serrano (Manager Personnel Selection)Service: (none)Author Type: (none)Type: Plan of CareFiled: 10/13/2017 8:44 AMNote Text:DIGITAL ASSOCIATE MEDIA DIRECTOR BEDSIDE DELIVERY SURVEY1. Patient to use [facility] Bedside Delivery - NO prefer own[facility]2. If fax, patient would like us to [facility]: b. Location: c. Phone:3. Insurance card on file - NO4. Credit card for payment - NO Normal [facility] PROGRESSon 10-13-2017 PROGRESS HNO ID: [id number] thor: Shelly Cabrera) O'NeillService: UrologyAuthor Type: Nurse PractitionerType: Progress NotesFiled: 10/13/2017 11:00 AMNote Text:UROLOGY SERVICE PROGRESS NOTEName: Darrell CmdBed: G090 013/[id number]: [id number]: October 13, 2017ASSESSMENT AND PLANMarvin Emmanuelle Nelson is a 67 year old male with history of HTN, nephrolithiasisnow POD#2 s/p PCNL and R JJ stent placement.#Neuro-Pain controlled on Tylenol#CV/Pjcv-IQU-Ipn stable-Continue incentive spirometer use#GI-Diet - GI Soft/regular diet; tolerating without N/V#-Scr 0.90-UOP good-Christian: removed- voiding without difficulty#FEN-IVF NS @ 125 ml/hr#Activity - OOB to chair and Ambulate with assistance#DVT prophylaxis - SCDs, Pharmacologic DVT prophylaxis contraindicated dueto bleeding risk#Antibiotics - Perioperative antibiotics - Ancef#Secondary Dx and ComplicationsHTN- c/w home medications; [facility] Urocit HELD#Discharge teaching - routine teaching#Disposition - Discharge home todaySUBJECTIVE-Pain:controlled -CP/SOB: Denies-N/V:Denies-Bowel function:+Flatus. No BM-Ambulating: YesBrief HPI: No acute events throughout the night. Denies fever, chills.Voiding without difficulty. Doing well. Eager for discharge home.OBJECTIVEVital SignsBP 154/79 Pulse 89 Temp 36.9 ?C (98.4 ?F) (Oral) Resp 20 Ht 175.3cm (5' 9 ) Wt 80 kg (176 lb 5.9 oz) SpO2 96% BMI 26.05 kg/j8Svoya and OutputIntake/Output Summary (Last 24 hours) at [...] mL ORAL q 6 H PRNphenol 1 Winston (CHLORASEPTIC) 1 Winston MUCOUS MEMBRANE (TOPICAL MOUTH ANDTHROAT) q 2 H PRNsimethicone, chewable 80 mg tab(s) (MYLICON) 80 mg ORAL q 8 H PRNoxybutynin 5 mg tab(s) (DITROPAN) 5 mg ORAL q 8 H PRNoxyCODONE IR 5-10 mg tab(s) (ROXICODONE) 5-10 mg ORAL q 4 H PRNNo past medical history on file.ImagingCXR 10/11/17IMPRESSION:NO ACUTE DISEASESIGNATURE: Shelly Cote CNP PAGER: [phone]: October 13, 2017TIME: 9:45amPlease page [phone] on weekends and after 4pm on weekdays Normal [facility] PROGRESS HNO ID: [id number] thor: Miguel (Res) BrykService: UrologyAuthor Type: ResidentType: Progress NotesFiled: 10/13/2017 6:47 AMNote Text:UROLOGY RESIDENT PROGRESS NOTEName: Darrell CmdBed: G090 013/L468-76GYO: [id number]: October 13, 2017 =====SUBJECTIVE- no acute events overnight-Pain: controlled-N/V : No- Tolerated diet, ambulating, +ROBF ======OBJECTIVEVital SignsPatient Vitals for the past 8 hrs: BP Temp Temp src Pulse Resp [id number]/13/17 0300 144/71 36.7 ?C (98 ?F) Oral [...] Normal affectLabCBC, Coags, BMP, Mg, PhosRecent Labs 0 10/11/1815WBC 12.64* 14.41* 16.46*HB 12.7* [...] mL ORAL q 6 H PRNphenol 1 Winston (CHLORASEPTIC) 1 Winston MUCOUS MEMBRANE (TOPICAL MOUTH ANDTHROAT) q 2 [...] Perioperative antibiotics - ancef#ComplicationsNone#Seconda ry Dx-HTN- [facility]artanCambridge [facility]ale urocit-K held#Discharge teaching - may need home going christian care teaching#Disposition - d/c todayThe patient's progress, lab findings, vitals, and clinical decision makingas documented above to be discussed with staff Dr. Schroeder. ========Miguel Zapata M.D.Urology PGY-2Pager: [phone] 20176:[phone] AMOvernight and on weekends please page [phone] Normal [facility] APTTon 10-12-2017 aPTT 27.4 s Normal 23.0-32.4 [facility] Comment on above: Result Comment: Unfr actionated [...] laboratory APTT reagent in use throughout the [facility]. Performed By: #### P T, PTT, MG1 ####[address] [phone] Basic Metabolic Panlon 10-12 Anion gap 8 mmol/L Low 9-18 [facility] Comment on above: Performed By: #### C BCDIF, BMP ####[place] [address] [place], [place] [phone] Calcium 8.2 mg/dL Low 8.5-10.2 [facility] Comment on above: Performed By: #### C BCDIF, BMP ####[place] [address] [place], [place] [phone] Chloride 103 mmol/L Normal 97-105 [facility] Comment on above: Performed By: #### C BCDIF, BMP ####[place] [address] [place], [place] [phone] CO2 31 mmol/L High 22-30 [facility] Comment on above: Performed By: #### C BCDIF, BMP ####[address] [phone] Creatinine 1.00 mg/dL Normal 0.73-1.22 [facility] Comment on above: Performed By: #### C CHARLENE CONDON ####[facility] [place], [place] [phone] eGFR (non-black) mL/min/{1.73_m2} Normal Cl [facility] Comment on above: Performed By: #### C ROSEANNA, CHARLENE ####[facility] [place], [place] [phone] Result Comment: eGFR (Estimated GFR) Units of [...] Glucose mass conc 100 mg/dL High 74-99 [facility] Comment on above: Result Comment: The [place] Diabetes Association (ADA) provides guidance for cutoff [...] Standards of Medical Care in Diabetes 2016, [place] [employer]. Diabetes Care. 2016.39(Suppl 1). Performed By: #### C CHARLENE CONDON ####[facility] [place], [place] [phone] Potassium molar conc 4.0 mmol/L Normal 3.7-5.1 [facility] Comment on above: Performed By: #### C BCDIF, BMP ####[facility] [address], [place] [phone] Sodium 142 mmol/L Normal 136-144 [facility] Comment on above: Performed By: #### C BCDIF, BMP ####[facility] [address] AveCSandy, [place] [phone] Urea nitrogen 9 mg/dL Normal 9-24 [facility] Comment on above: Performed By: #### C BCDIF, BMP ####[facility] [address] [place], [place] [phone] CASE MGT INIT MINGon 2017 CASE MGT INIT MING HNO ID: [id number]: Brigette (Rn) EMLIIANO Museervice: Care ManagementAuthor Type: Registered NurseType: Care Mgt Initial AssessmentFiled: 10/12/2017 4:00 PMNote Text:CARE MANAGEMENT: ASSESSMENT AND DISCHARGE PLANSERVICE DATE: 10/12/2017SERVICE TIME: 3:57 PMPRIMARY CARE PHYSICIAN:Abigail Sanchez [facility] CENTERhone: [phone] STATUS: Ambulatory SurgeryPOTENTIAL DISCHARGE PLANSNo Services IndicatedPatient/Riding Silks Custodian Stated Goals: return homeNeeds Prior to Discharge: NoneHealth Insurance: [employer] [place] ServicesLiving Arrangement: HomeLives With: SpouseFinancial Resources: RetiredPrimary Contact:Extended Emergency Contact InformationPrimary Emergency Contact: Ansley NelsonAddress: [address] [place] [address] [facility] Lxhkwe Xysfyare: SpouseSupportive: YesOther Important Patient Contacts: NoneCAREGIVER ASSESSMENT:Caregiver [...] Chief complaint is of his christian.Please contact care consultant if needs arise prior to dc.SIGNATURE: Brigette Muse RN PATIENT NAME: Darrell ElizaldeATE: October 12, 2017 : 3:57 PM PAGER/CONTACT #: [phone] Normal [facility] CBC and Differentialon 10-12 Abs Baso 0.03 k/uL Normal <0.11 [facility] Comment on above: Performed By: #### C BCCHARLENE SIERAR ####[facility] [address] [place], [place] [phone] Abs Peñuelas 1.45 k/uL High <0.87 [facility] Comment on above: Performed By: #### C BCDIF, BMP ####[place] [address] [place]CS[address], [place] [phone] Abs Neut 9.96 k/uL High 1.45-7.50 [facility] Comment on above: Performed By: #### C BCDIF, BMP ####[place] [address] [address], [place] [phone] Basophils/100 WBC Auto (Bld) 0.2 % Normal [facility] Comment on above: Performed By: #### C BCDIF, BMP ####[place] [address] [place] [phone] DTYPE Auto Diff Normal [facility] Comment on above: Performed By: #### C BCJUANF, BMP ####[place] [address] [place] [phone] Eosinophils 0.06 10*3/uL Normal <0.46 [facility] Comment on above: Performed By: #### C BCDIF, BMP ####[place] [address] [place] [phone] Eosinophils/100 leukocytes 0.4 % Normal [facility] Comment on above: Performed By: #### C BCDIF, BMP ####[place] [address], [place] [phone] Erythrocyte distribution width Auto Ratio (RBC) 12.6 % Normal 11.5-15.0 [facility] Comment on above: Performed By: #### C BCDIF, BMP ####[place] [address], [place] [phone] Erythrocytes (RBC) 0.0 /100 WBC Normal 0 [facility] Comment on above: Performed By: #### C BCDIF, BMP ####[place] [address], [place] [phone] Erythrocytes (RBC) 3.97 10*6/uL Low 4.20-6.00 [facility] Comment on above: Performed By: #### C BCDIKyra, BMP ####[place] [address], [place] [phone] Erythrocytes (RBC) 10*6/uL Normal <0.01 [facility] Comment on above: Performed By: #### C BCDIF, BMP ####[place] [address], [place] [phone] Hematocrit (HCT) 35.9 % Low 39.0-51.0 [facility] Comment on above: Performed By: #### C BCMARIELA, BMP ####[place] [address], [place] [phone] Hemoglobin mass conc (Bld) 11.9 g/dL Low 13.0-17.0 [facility] Comment on above: Performed By: #### C BCDIF, BMP ####[place] [address] [address] [place] [phone] Lymphocytes 2.91 10*3/uL Normal 1.00-4.00 [facility] Comment on above: Performed By: #### C BCDIF, BMP ####[place] [address] [address], [place] [phone] Lymphocytes/100 leukocytes 20.2 % Normal [facility] Comment on above: Performed By: #### C BCDIF, BMP ####[place] [address] [address], [place] [phone] MCH 30.0 pG Normal 26.0-34.0 [facility] Comment on above: Performed By: #### C BCDIF, BMP ####[place] [address] [address], [place] [phone] MCHC mass conc (RBC) 33.1 g/dL Normal 30.5-36.0 [facility] Comment on above: Performed By: #### C BCDIF, BMP ####[place] [address]CS[address], [place] [phone] MCV 90.4 fL Normal 80.0-100.0 [facility] Comment on above: Performed By: #### C BCDIF, BMP ####[place] [address] [address], [place] [phone] Monocytes/100 leukocytes 10.1 % Normal [facility] Comment on above: Performed By: #### C BCDIF, BMP ####[place] [address] [address], [place] [phone] Neutrophils/100 WBC Auto (Bld) 69.1 % Normal [facility] Comment on above: Performed By: #### C BCJUANF, BMP ####[address] [place], [place] [phone] Platelet mean volume (PMV) 11.2 fL Normal 9.0-12.7 [facility] Comment on above: Performed By: #### C KRISTINAF, BMP ####[address], [place] [phone] Platelets 124 10*3/uL Low 150-400 [facility] Comment on above: Result Comment: Resu lt checked and verifiedNo clot detected. Performed By: #### C BCDIF, BMP ####[place] [address] [address], [place] [phone] WBC (Leukocytes) 14.41 10*3/uL High 3.70-11.00 [facility] Comment on above: Performed By: #### C BCDIF, BMP ####[address], [place] [phone] Magnesiumon 10-12-2017 Magnesium 1.7 mg/dL Normal 1.7-2.3 [facility] Comment on above: Performed By: #### P T, PTT, MG1 ####[place] [address] [address] [place], [place] [phone] PROGRESSon 10-12-2017 PROGRESS HNO ID: [id number] thor: Feliciano Santanaervice: (none)Author Type: PhysicianType: Progress NotesFiled: 10/12/2017 1:40 PMNote Text:STAFF UROLOGY NOTE:Patient's Hb dropped nearly 2 grams post-op and his urine was too bloodythis morning for voiding trial or discharge. Will plan to keep in houseanother day.Feliciano Schroeder, MDDirector, Surgical Stone Disease, [facility] Urologic InstituteProfessor of Surgery, [facility], Edwin ShawPager [phone] Normal [facility] Hospitalvelan d [facility] PROGRESS HNO ID: [id number] thor: Shelly (Bookkeeper Assistant) O'NeillService: UrologyAuthor Type: Nurse PractitionerType: Progress NotesFiled: 10/12/2017 1:31 PMNote Text:UROLOGY SERVICE PROGRESS NOTEName: Darrell CmdBed: G090 013/C212-36BTR: [id number]: October 12, 2017ASSESSMENT AND PLANMarjuan Nelson is a 67 year old male with history of HTN, nephrolithiasisnow POD#1 s/p PCNL and R JJ stent placement.#Neuro-Pain controlled on Tylenol#CV/Lhjr-VAJ-Kkh stable#GI-Diet - GI Soft/regular diet; tolerating without N/V+Flatus. 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#FEN-IVF NS @ 125 ml/hr#Activity - [...] lb 5.9 oz) SpO2 95% BMI 26.05 kg/j7Mttky and OutputIntake/Output Summary (Last 24 hours) at 10/12/17 1302Last data filed at 10/12/17 1000 Gross per 24 hourIntake 4023 mlOutput 1975 mlNet 2048 mlDrains:NoneUrine: 1625ccPhysical ExamGeneral: Well appearing male in NADHEENT: Normocephalic, atraumaticCV:: RRR, hemodynamically stable, well-perfusedResp: breathing comfortably on RA.GI: Soft, nontender, nondistended.: Christian catheter draining livestock farm workers red urineExtremities: No cyanosis or clubbing, No [...] mL ORAL q 6 H PRNphenol 1 Winston (CHLORASEPTIC) 1 Winston MUCOUS MEMBRANE (TOPICAL MOUTH ANDTHROAT) q 2 H PRNsimethicone, chewable 80 mg tab(s) (MYLICON) 80 mg ORAL q 8 H PRNoxybutynin 5 mg tab(s) (DITROPAN) 5 mg ORAL q 8 H PRNoxyCODONE IR 5-10 mg tab(s) (ROXICODONE) 5-10 mg ORAL q 4 H PRNNo past medical history on file.ImagingCXR 10/11/17IMPRESSION:NO ACUTE DISEASESIGNATURE: Shelly Cote CNP PAGER: [phone]: October 12, 2017TIME: 11:15amPlease page [phone] on weekends and after 4pm on weekdays Normal [facility] PROGRESS HNO ID: [id number] thor: Miguel (Res) BrykService: UrologyAuthor Type: ResidentType: Progress NotesFiled: 10/12/2017 6:47 AMNote Text:UROLOGY RESIDENT PROGRESS NOTEName: Darrell Handley BoydBed: G090 013/C247-26KQY: [id number]: October 12, 2017 =====SUBJECTIVE- no acute events overnight-Pain: controlled-N/V : No- Tolerated clears, eager for food =====OBJECTIVEVital SignsPatient Vitals for the past 8 hrs: BP Temp Temp src Pulse Resp SpO2 Height Czammw67/10/18 1922 148/81 36.7 ?C (98.1 ?F) Oral [...] CBC, Coags, BMP, Mg, PhosRecent Labs 229 650WBC 14.41* 16.46*HB 11.9* 13.7HCT [...] mL ORAL q 6 H PRNphenol 1 Winston (CHLORASEPTIC) 1 Winston MUCOUS MEMBRANE (TOPICAL MOUTH ANDTHROAT) q 2 H PRNsimethicone, chewable 80 mg tab(s) (MYLICON) 80 mg ORAL q 8 H PRNoxybutynin 5 mg tab(s) (DITROPAN) 5 mg ORAL q 8 H PRNoxyCODONE IR 5-10 mg tab(s) (ROXICODONE) 5-10 mg ORAL q 4 H PRN =====ASSESSMENT AND Celia Handley Alvin is a 67 year old male [...] staff Dr. Schroeder. ========Miguel Zapata M.D.Urology PGY-2Pager: [phone] 2017Overnight and on weekends please page [phone] Normal [facility] Protimeon 10-12-2017 INR Coag RelTime (Bld) 1.0 {INR} Normal 0.9-1.3 [facility] Comment on above: Result Comment: Laisha min K Antagonist (VKA) Therapeutic Range: INR 2 to 3 (Target INR of 2.5)Note: For patients treated with VKA drugs, such as warfarin, the [place] [employer] 2012 Guideline recommends [...] al. Chest 2012, 141:7S-47SNishimura RA, et al. [facility] 2017, 70: 252-289 Performed By: #### P T, PTT, MG1 ####[facility] [place], [place] [phone] PT Sec 10.8 sec Normal 9.7-13.0 [facility] Comment on above: Performed By: #### P T, PTT, MG1 ####[facility] [place], [place] [phone] ANES Woody 10-11-2017 ANES POST HNO ID: [id number] thor: Teresita RosadoSermarlenye: AnesthesiologyAuthor Type: PhysicianType: Anesthesia [...] 11, 2017 : 4:07 PM PAGER/CONTACT #: [phone] [facility] BRIEF OP NOTon 10-11-2017 BRIEF OP NOT HNO ID: [id number] thor: Miguel Gillespieervice: UrologyAuthor Type: ResidentType: Brief Op NoteFiled: 10/11/2017 3:17 PMNote Text:UROLOGY BRIEF OPERATIVE NOTELOG ID: [id number]/Procedure Date: 10/11/2017Incision/Procedure Start Time: 1:38 PMIncision Close/Procedure [...] 30 FrenchTract Dilation Device: BalloonSurgeon(s)/Proceduralist (s) and Highwall Drill Operator(s):Surgeon(s) and Role: * Feliciano Schroeder - Primary * Miguel Zapata - Resident - Assisting * Damon Garcias (Fel) - FellowNo Additional StaffAnesthesia: GeneralFLUIDSIntake: 1200ccUrine Output: n/a, irrigationEstimated Blood Loss: 50 mlsAccidental punctures or Lacerations: noneComplications: NoneDrains: Christian, 20fr coude tipImplants: [id number] JJ ureteral stentCultures: NoneFindings: Soft stones in R Renal pelvis and R lower pole (>3cm). Lowerpole access. Stone free at end of the case.Specimens:Specimen ID Type Site Comments Sent Toother Stone stones sent to PACU with patient OtherPost-Op Plan of Care:To RNFSIGNATURE: Miguel Zapata MD PATIENT NAME: Darrell Xavier: October 11, 2017 : 3:11 PM PAGER/CONTACT #: [phone] after hours issues, please call the on-call urology pager [phone] Normal [facility] CBC and Differentialon 10-11 Abs Baso 0.03 k/uL Normal <0.11 [facility] Comment on above: Performed By: #### C BCDIF ####[facility] [address]CBr[address] [place] [phone] Abs Peñuelas 1.18 k/uL High <0.87 [facility] Comment on above: Performed By: #### C BCDIF ####[place] [address] [address] [place] [phone] Abs Neut 12.38 k/uL High 1.45-7.50 [facility] Comment on above: Performed By: #### C BCDIF ####[facility] [place] [phone] Basophils/100 WBC Auto (Bld) 0.2 % Normal [facility] Comment on above: Performed By: #### C BCDIF ####[facility] [place] [phone] DTYPE Auto Diff Normal [facility] Comment on above: Performed By: #### C BCDIF ####[facility] [address]CBr[place] [place] [phone] Eosinophils 0.06 10*3/uL Normal <0.46 [facility] Comment on above: Performed By: #### C BCDIF ####[facility] [place] [phone] Eosinophils/100 leukocytes 0.4 % Normal [facility] Comment on above: Performed By: #### C BCDIF ####[facility], [place] [phone] Erythrocyte distribution width Auto Ratio (RBC) 12.4 % Normal 11.5-15.0 [facility] Comment on above: Performed By: #### C BCDIF ####[place] [address] [address], [place] [phone] Erythrocytes (RBC) 0.0 /100 WBC Normal 0 [facility] Comment on above: Performed By: #### C BCDIF ####[place] [address] [place] [phone] Erythrocytes (RBC) 10*6/uL Normal <0.01 [facility] Comment on above: Performed By: #### C BCDIF ####[place] [address] [place] [phone] Erythrocytes (RBC) 4.42 10*6/uL Normal 4.20-6.00 [facility] Comment on above: Performed By: #### C BCDIF ####[place] [address] [address] [place] [phone] Hematocrit (HCT) 39.7 % Normal 39.0-51.0 [facility] Comment on above: Performed By: #### C BCDIF ####[place] [address] [place] [phone] Hemoglobin mass conc (Bld) 13.7 g/dL Normal 13.0-17.0 [facility] Comment on above: Performed By: #### C BCDIF ####[place] [address] [place] [phone] Lymphocytes 2.81 10*3/uL Normal 1.00-4.00 [facility] Comment on above: Performed By: #### C BCDIF ####[place] [address] [address] [place] [phone] Lymphocytes/100 leukocytes 17.1 % Normal [facility] Comment on above: Performed By: #### C BCDIF ####[place] [address] [address], [place] [phone] MCH 31.0 pG Normal 26.0-34.0 [facility] Comment on above: Performed By: #### C BCDIF ####[place] [address] [address], [place] [phone] MCHC mass conc (RBC) 34.5 g/dL Normal 30.5-36.0 [facility] Comment on above: Performed By: #### C BCDIF ####[address] [place], [place] [phone] MCV 89.8 fL Normal 80.0-100.0 [facility] Comment on above: Performed By: #### C BCDIF ####[place] [address], [place] [phone] Monocytes/100 leukocytes 7.2 % Normal [facility] Comment on above: Performed By: #### C BCDIF ####[place] [address] [place], [place] [phone] Neutrophils/100 WBC Auto (Bld) 75.1 % Normal [facility] Comment on above: Performed By: #### C BCDIF ####[place] [address] [place], [place] [phone] Platelet mean volume (PMV) 11.3 fL Normal 9.0-12.7 [facility] Comment on above: Performed By: #### C BCDIF ####[place] [address] [address], [place] [phone] Platelets 147 10*3/uL Low 150-400 [facility] Comment on above: Performed By: #### C BCDIF ####[place] [address], [place] [phone] WBC (Leukocytes) 16.46 10*3/uL High 3.70-11.00 [facility] Comment on above: Performed By: #### C BCDIF ####[facility] [place], [place] [phone] Calculi Analysison 8 Calculus Type stone Normal [facility] Comment on above: Performed By: #### I CA, CBCDIF, VITD, PTHI, CMP, URIC ####[facility] [place], [place] [phone] Note (NOTE) Normal [facility] Comment on above: Result Comment: Calc ulus Color: OFF WHITECalculus Size & Weight: MULTIPLE PIECES, 0.5788 GRAMSComposition: CALCIUM PHOSPHATE - 60% CALCIUM OXALATE MONOHYDRATE - 30% MINOR COMPONENTS - 10%This test was developed and its performance characteristicsdetermined by the [facility] Pathology andLaboratory Medicine [place] ([facility] CENTERPLMI).It has not been cleared or approved by the FDA.-[facility] is regulated under CLIA as qualified to performhigh-complexity testing.This test is used for clinical purposes. It should not be regarded asinvestigational or for research. Performed By: #### I CA, CBCDIF, VITD, PTHI, CMP, URIC ####[facility] [place], [place] [phone] NURSING PROGon 10-11-2017 NURSING PROG HNO ID: [id number] thor: Melita (Rn) Vincenzo, EMILIANOervice: (none)Author Type: Registered NurseType: Nursing Progress NoteFiled: 10/11/2017 8:01 PMNote Text:Admission/Transfer NotePATIENT NAME: Darrell DennisRN: [id number] admitted from PACU via stretcher in stable condition.Actions taken: Patient oriented to room, call light function, prescribedactivities, Patient rights and Quiet at night.This note was completed by: Melita Loya RN Normal [facility] NURSING PROG HNO ID: [id number] thor: May Collins (Rn) EMILIANO Moffettervice: NursingAuthor Type: Registered NurseType: Nursing Progress NoteFiled: 10/11/2017 10:50 AMNote Text:PRE OP LEARNING ASSESSMENTPROCEDURE/SURGERY: SURGERY: PreopREADINESS TO LEARN: InterestedCOGNITIVE ABILITY: Alert and orientedMOTIVATION TO LEARN: EagerFAMILY SUPPORT: High - Very involved in pt carePATIENT LEARNS BEST BY: Multiple MethodsFACTORS AFFECTING LEARNING: NonePHYSICAL LIMITATIONS AFFECTING LEARNING: NoneElectronically Signed By: May Moffett RN In Department: HOSPMAIN M023 Normal [facility] OPERATIVE NOon 10-11-2017 OPERATIVE NO HNO ID: [id number] thor: Feliciano Santanaervice: UrologyAuthor Type: PhysicianType: Operative ReportFiled: 10/12/2017 9:11 AMNote Text:OPERATIVE/PROCEDURE REPORTLOG ID: [id number]/Procedure Date: 10/11/2017Incision/Procedure Start Time: 1:38 PMIncision Close/Procedure End Time: 3:13 PMSurgeon(s)/Proceduralist(s) and Highwall Drill Operator(s):Surgeon(s) and Role: * Feliciano Schroeder - Primary [...] draped in the standard sterile fashion.First clinical informatics specialist images were obtained noting two opacities in [...] pulled out through theurethral meatus to gain lanofbk-lkj-kjpuoyt access.A glide catheter was used to exchange the ysgbndg-inz-xviuhzc guidewirefor an Amplatz superstiff wire. The ureteroscope was re-inserted to theaccessed calyx. An 8/10 Fr dilator was then used to gently dilate thetract. The tract was incised at the skin for 10 mm. The Recruit.net X-Forceballoon was advanced over the wire and [...] Garcias and Dr. Zapata.Miguel Zapata M.D.Urology PGY-2Pager: [phone] 20174:[phone] PMOvernight and on weekends please page [phone] RADHA Schroederirector, Surgical Stone Disease, [facility] Urologic InstituteProfessor of Surgery, [facility] ShawPager [phone]/12/2017 Normal [facility] PROGRESSon 10-11-2017 PROGRESS HNO ID: [id number] thor: Tyler (Res) Rick Meridarvice: Pediatric UrologyAuthor [...] mL ORAL q 6 H PRNphenol 1 Winston (CHLORASEPTIC) 1 Winston MUCOUS MEMBRANE (TOPICAL MOUTH ANDTHROAT) q 2 [...] lb 5.9 oz) SpO2 99% BMI 26.05 kg/j9BVZPJODG EXAM:GENERAL: no distressNEURO: MIFXZc5FHVPO: breathing comfortably on 2LCARDIAC: warm and well perfused throughoutABDOMEN: soft, mild distended, non tender.WOUND: CDIGU: Christian catheter present, red urine no clotsLABSCBC, Coags, BMP, Mg, PhosRecent Labs 650WBC 16.46*HB 13.7HCT 39.7PLT 147*A/P:Darrell Nelson is a [...] routine teachingDischarge planning - pendingTyler Ramos [place].Pg [phone] Normal [facility] PT EDon 10-11-2017 PT ED HNO ID: [id number] thor: Ccf ProviderService: (none)Author Type: PhysicianType: Patient EducationFiled: 10/11/2017 7:15 PMNote Text:The Jewish HospitalPatient Education Report Name: DARRELL NELSON Date: 10/11/2017 Time: 7:15 PMPatient Ordered Video: Inpatient Fallsfrom [id number] via phone number [phone] at 7:15 PM Normal [facility] XR CHEST 1V FRONTAL PORTon 0 10-11-2017 [...] ORDOÑEZ MD on Oct 11 2017 4:13PM [id number] Normal [facility] CNCOon 10-05-2017 CNCO Letter Text/12/2017M teresa Handley [address] [id number] Mr. Nelson:Your recent 24 hour urine test [...] for future kidney stones. You may contact [facility] [phone] with any questions or concerns.Sincerely,Feliciano Schroeder M.D.ELECTRONICALLY SIGNED Normal [facility] CBC and Differentialon 09-12 Abs Baso 0.04 k/uL Normal <0.11 [facility] Comment on above: Performed By: #### I CA, CBCDIF, VITD, PTHI, CMP, URIC ####[place] [address] [address] [place] [phone] Abs Peñuelas 1.26 k/uL High <0.87 [facility] Comment on above: Performed By: #### I CA, CBCDIF, VITD, PTHI, CMP, URIC ####[place] [address] [place] [phone] Abs Neut 6.39 k/uL Normal 1.45-7.50 [facility] Comment on above: Performed By: #### I CA, CBCDIF, VITD, PTHI, CMP, URIC ####[place] [address] [place] [phone] Basophils/100 WBC Auto (Bld) 0.3 % Normal [facility] Comment on above: Performed By: #### I CA, CBCDIF, VITD, PTHI, CMP, URIC ####[place] [address] [place] [phone] DTYPE Auto Diff Normal [facility] Comment on above: Performed By: #### I CA, CBCDIF, VITD, PTHI, CMP, URIC ####[place] [address] [place] [phone] Eosinophils 0.10 10*3/uL Normal <0.46 [facility] Comment on above: Performed By: #### I CA, CBCDIF, VITD, PTHI, CMP, URIC ####[place] [address] [place] [phone] Eosinophils/100 leukocytes 0.9 % Normal [facility] Comment on above: Performed By: #### I CA, CBCDIF, VITD, PTHI, CMP, URIC ####[place] [address] [place] [phone] Erythrocyte distribution width Auto Ratio (RBC) 12.9 % Normal 11.5-15.0 [facility] Comment on above: Performed By: #### I CA, CBCDIF, VITD, PTHI, CMP, URIC ####[place] [address] [place] [phone] Erythrocytes (RBC) 0.0 /100 WBC Normal 0 [facility] Comment on above: Performed By: #### I CA, CBCDIF, VITD, PTHI, CMP, URIC ####[place] [address] [place] [phone] Erythrocytes (RBC) 4.74 10*6/uL Normal 4.20-6.00 [facility] Comment on above: Performed By: #### I CA, CBCDIF, VITD, PTHI, CMP, URIC ####[place] [address] [place] [phone] Erythrocytes (RBC) 10*6/uL Normal <0.01 [facility] Comment on above: Performed By: #### I CA, CBCDIF, VITD, PTHI, CMP, URIC ####[place] [address] [address], [place] [phone] Hematocrit (HCT) 43.7 % Normal 39.0-51.0 [facility] Comment on above: Performed By: #### I CA, CBCDIF, VITD, PTHI, CMP, URIC ####[place] [address], [place] [phone] Hemoglobin mass conc (Bld) 14.2 g/dL Normal 13.0-17.0 [facility] Comment on above: Performed By: #### I CA, CBCDIF, VITD, PTHI, CMP, URIC ####[place] [address] [place] [phone] Lymphocytes 3.64 10*3/uL Normal 1.00-4.00 [facility] Comment on above: Performed By: #### I CA, CBCDIF, VITD, PTHI, CMP, URIC ####[place] [address] [phone] Lymphocytes/100 leukocytes 31.8 % Normal [facility] Comment on above: Performed By: #### I CA, CBCDIF, VITD, PTHI, CMP, URIC ####[address] [place] [phone] MCH 30.0 pG Normal 26.0-34.0 [facility] Comment on above: Performed By: #### I CA, CBCDIF, VITD, PTHI, CMP, URIC ####[address] [place] [phone] MCHC mass conc (RBC) 32.5 g/dL Normal 30.5-36.0 [facility] Comment on above: Performed By: #### I CA, CBCDIF, VITD, PTHI, CMP, URIC ####[place] [phone] MCV 92.2 fL Normal 80.0-100.0 [facility] Comment on above: Performed By: #### I CA, CBCDIF, VITD, PTHI, CMP, URIC ####[address] [place] [phone] Monocytes/100 leukocytes 11.0 % Normal [facility] Comment on above: Performed By: #### I CA, CBCDIF, VITD, PTHI, CMP, URIC ####[place] [address] [place] [phone] Neutrophils/100 WBC Auto (Bld) 56.0 % Normal [facility] Comment on above: Performed By: #### I CA, CBCDIF, VITD, PTHI, CMP, URIC ####[place] [address] [place], [place] [phone] Platelet mean volume (PMV) 11.2 fL Normal 9.0-12.7 [facility] Comment on above: Performed By: #### I CA, CBCDIF, VITD, PTHI, CMP, URIC ####[address] [phone] Platelets 206 10*3/uL Normal 150-400 [facility] Comment on above: Performed By: #### I CA, CBCDIF, VITD, PTHI, CMP, URIC ####[address] [phone] WBC (Leukocytes) 11.43 10*3/uL High 3.70-11.00 [facility] Comment on above: Performed By: #### I CA, CBCDIF, VITD, PTHI, CMP, URIC ####[address] [place], [place] [phone] OSMANOVdonato 09-12-2017 CNOV Office Visit (UROLMN) DARRELL NELSON ([id number]) 1950 [place] [facility] Time Provider Qtdqzoztbw55/12/17 10:30 AM FELICIANO SCHROEDER During your visit [...] Urine Negative NegativeKetones, Urine Negative 1+ (A)Specific [place], Ur 1.005 - 1.030 1.016Hemoglobin/Blood,Ur Negative 2+ [...] with more than 50% of the total fldz-cn-utip time ofthe visit devoted to patient counseling/coordination of care.Feliciano Schroeder, MDDirector, Surgical Stone Disease, [facility] Urologic InstituteProfessor of Surgery, [facility] ShawPager [phone]/12/2017Bonita Ozuna CNP 09/12/2017 7:38 PM SignedUROLOGY SURGICAL HANDamp;PSERVICE DATE: 09/12/2017REFERRING PROVIDER: Cleveland Llanes MD[address] [facility] [id number]: No PcpGENDER:SUBJECTIVECHIEF COMPLAINT: Pre-op examHISTORY OF PRESENT [...] symtoms or problems.No history of angina, CHF, [place], cardiac surgery of stents.Respiratory: Negative for current cough, dyspnea. No hx of pneumonia in thepast six weeksPositive: PND, sinus drainage from allergiesGastrointestinal: No history of GERD, PUD, abd pain, difficulty swallowing, GIbleed.Renal: +stonesMusculoskeletal: Negative for joint pain or swelling, back pain or muscle pain.Skin: Negative for lesions, rash and itching.Psychological: No history of psychiatric symptoms or problems.Neurologic: No history of TIA's, stroke, WIRE STOCKKEEPER tumor, impaired sensorium,hemiplegia, paraplegia or quadriplegia. No [...] 10ANDquot;) Wt 79.4 kg (175 lb) BMI25.11 kg/l0Ckcaupzwvyb Max: @TMAXREFRESH(24)@ALLERGIES:ISIS RGIESNo Known AllergiesLABS:No results found for: BUNNo results found for: CREAshley results found for: PSAGlucose, Urine (mg/dL)Date Value09/12/2017 Negative Bilirubin, Urine (no units)Date Value09/12/2017 Negative Ketones, Urine (no units)Date Value09/12/2017 1+ (A) Specific [place], Ur (no units)Date Value09/12/2017 1.016 Hemoglobin/Blood ,Ur [...] Calculus, kidney (primary encounter diagnosis)N20.1 Calculus of lbpgsaH65.9 Right flank painI10 Essential mhophhfgukluL01.1 Family history of fmaybdiywomlioqZ76.49 Family history of ckkjfwqdwqpudwpakyaD65.9 Low vitamin D pyjraH35.90 Abnormal urinalysisGLICKMAN UROLOGICAL AND [facility] INSTITUTEPRE-OP NOTEDate [...] 11:45 AM PAGER/CONTACT #:Referring Provider: CLEVELAND LLANES [[id number]]Allergies As of Date: 09/12/2017(No Known Allergies)Date Reviewed: 09/12/2017Reviewed by: Az Ann MA - Fully AssessedPrimary Visit Diagnosis:Calculus, kidney [N20.0] Other Visit Diagnoses:Calculus of ureter [N20.1] Right flank pain [R10.9] Essential hypertension [I10] Family history of nephrolithiasis [Z84.1] Family history of hyperparathyroidism [Z83.49] Low vitamin D level [E55.9] Abnormal urinalysis [R82.90]Order(s):UA CHEMSTRIP ONLY [SQUA] Order #: [id number] FUTURE UA CHEMSTRIP ONLY [SQUA] Order #: [id number]. #:[id number] VITAMIN D 25 HYDROXY [SQVITD] Order #: [id number] FUTURE CBC + DIFF [SQCBCDIF] Order #: [id number] FUTURE COMP METABOLIC PANEL [SQCMP] Order #: [id number] FUTURE PTH INTACT BLD [SQPTHI] Order #: [id number] FUTURE URIC ACID BLOOD [SQURIC] Order #: [id number] FUTURE TYPE + SCREEN,30 DAY [SOZVYX13] Order #: [id number] FUTURE CONFIRM BLOOD TYPE [SQCONABO] Order #: [id number] FUTURE ECG COMPLETE W INTERPRETATION [ECG01] Order #: [id number] FUTURE [facility] [4986695] Order #: [id number] CALCIUM IONIZED B [SQICA] Order #: [id number] FUTURE URINE CULTURE [SQURCUL] Order #: [id number]. #:[id number] iptions as of 09/12/2017 Sig: MULTIVITAMIN TABLET [...] Az Ann MA 09/12/2017 10:20 AM >> MARIA DE JESUS FLORESAZ Sep 12, 2017 10:20 AM Received from: [...] Disposition History RecordedLetter TextDecember 2016Cleveland Llanes MD[address] [place] [address]GWAA: Katherine Nelson NO: [id number] OF SERVICE: 09/12/2017Dear Dr. Llanes,[facility] Nelson[facility]Enclosed is a copy of my clinic note which should be self-explanatoryregarding findings, recommendations, and treatment plan. Please don'thesitate to contact me if there are questions.Sincerely,Feliciano Schroeder M.D.Staff Urologist, [facility] CenterELECTRONICALLY SIGNEDcc: Abigail Sanchez M.D., [facility] [place] [address]Pzlbxefuo Number: [id number] Status:Closed by FELICIANO SCHROEDER MD on 09/12/17 Normal [facility] Calcium, Ionizedon 7 Calcium 1.14 mmol/L Normal 1.08-1.30 [facility] Comment on above: Performed By: #### I CA, CBCDIF, VITD, PTHI, CMP, URIC ####[place] [id number] [place] [phone] Calcium, Ionized 1.20 mmol/L Normal 1.08-1.30 [facility] Comment on above: Performed By: #### I CA, CBCDIF, VITD, PTHI, CMP, URIC ####[place] [address] [address] [phone] Comp Metabolic Panelon 09-12 Alanine aminotransferase (ALT) 43 U/L Normal 10-54 [facility] Comment on above: Performed By: #### I CA, CBCDIF, VITD, PTHI, CMP, URIC ####[place] [address] [address] [place] [phone] Albumin 3.8 g/dL Low 3.9-4.9 [facility] Comment on above: Performed By: #### I CA, CBCDIF, VITD, PTHI, CMP, URIC ####[place] [address] [address] [place] [phone] Alkaline phosphatase (ALP) 98 U/L Normal 36-108 [facility] Comment on above: Performed By: #### I CA, CBCDIF, VITD, PTHI, CMP, URIC ####[place] [address] [address] [place] [phone] Anion gap 15 mmol/L Normal 9-18 [facility] Comment on above: Performed By: #### I CA, CBCDIF, VITD, PTHI, CMP, URIC ####[place] [address] [address] [place] [phone] Aspartate aminotransferase (AST) 40 U/L Normal 14-40 [facility] Comment on above: Performed By: #### I CA, CBCDIF, VITD, PTHI, CMP, URIC ####[place] [address] [address] [place] [phone] Bilirubin (total) 0.5 mg/dL Normal 0.2-1.3 [facility] Comment on above: Performed By: #### I CA, CBCDIF, VITD, PTHI, CMP, URIC ####[place] [address] [address] [place] [phone] Calcium 9.3 mg/dL Normal 8.5-10.2 [facility] Comment on above: Performed By: #### I CA, CBCDIF, VITD, PTHI, CMP, URIC ####[place] [address] [address] [place] [phone] Chloride 100 mmol/L Normal 97-105 [facility] Comment on above: Performed By: #### I CA, CBCDIF, VITD, PTHI, CMP, URIC ####[place] [address] [address] [phone] CO2 26 mmol/L Normal 22-30 [facility] Comment on above: Performed By: #### I CA, CBCDIF, VITD, PTHI, CMP, URIC ####[place] [address] [address] [phone] Creatinine 1.05 mg/dL Normal 0.73-1.22 [facility] Comment on above: Performed By: #### I CA, CBCDIF, VITD, PTHI, CMP, URIC ####[place] [address] [address] [place] [phone] eGFR (non-black) mL/min/{1.73_m2} Normal [facility] Comment on above: Performed By: #### I CA, CBCDIF, VITD, PTHI, CMP, URIC ####[place] [address] [address] [place] [phone] Result Comment: eGFR (Estimated GFR) Units of [...] Glucose mass conc 92 mg/dL Normal 74-99 [facility] Comment on above: Result Comment: The [place] Diabetes Association (ADA) provides guidance for cutoff [...] Standards of Medical Care in Diabetes 2016, [place] [employer] Association. Diabetes Care. 2016.39(Suppl 1). Performed By: #### I CA, CBCDIF, VITD, PTHI, CMP, URIC ####[facility] [place], [place] [phone] Potassium molar conc 4.0 mmol/L Normal 3.7-5.1 [facility] Comment on above: Performed By: #### I CA, CBCDIF, VITD, PTHI, CMP, URIC ####[facility] [place], [place] [phone] Protein 7.5 g/dL Normal 6.3-8.0 [facility] Comment on above: Performed By: #### I CA, CBCDIF, VITD, PTHI, CMP, URIC ####[facility] [place], [place] [phone] Sodium 141 mmol/L Normal 136-144 [facility] Comment on above: Performed By: #### I CA, CBCDIF, VITD, PTHI, CMP, URIC ####[facility] [place], [place] [phone] Urea nitrogen 10 mg/dL Normal 9-24 [facility] Comment on above: Performed By: #### I CA, CBCDIF, VITD, PTHI, CMP, URIC ####[facility] [address] [place], [place] [phone] Confirm Blood Typeon 017 ABO/RH(D) Positive Normal [facility] Comment on above: Performed By: #### C ONABO ####[facility] [address] [place], [place] [phone] HISTORY PHYSICALon 7 HISTORY PHYSICAL HNO ID: [id number] thor: Bonita (Bookkeeper Assistant) DigennaroService: (none)Author Type: Nurse PractitionerType: HANDPFiled: 09/12/2017 7:38 PMNote Text:UROLOGY SURGICAL HANDPSERVICE DATE: 09/12/2017REFERRING PROVIDER: Cleveland Llanes MD[address] [facility] [address]VSN: No PcpGENDER:SUBJECTIVECHIEF COMPLAINT: Pre-op examHISTORY OF PRESENT [...] symtoms or problems.No history of angina, CHF, [place], cardiac surgery of stents.Respiratory: Negative for current cough, dyspnea. No hx of pneumonia inthe past six weeksPositive: PND, sinus drainage from allergiesGastrointestinal: No history of GERD, PUD, abd pain, difficultyswallowing, GI bleed.Renal: +stonesMusculoskeletal: Negative for joint pain or swelling, back pain or musclepain.Skin: Negative for lesions, rash and itching.Psychological: No history of psychiatric symptoms or problems.Neurologic: No history of TIA's, stroke, WIRE STOCKKEEPER tumor, impaired sensorium,hemiplegia, paraplegia or quadriplegia. No [...] ) Wt 79.4 kg (175 lb) BMI25.11 kg/m1Wiyyeemtfxa Max: @TMAXREFRESH(24)@ALLERGIES:ISIS RGIESNo Known AllergiesLABS:No results found for: BUNNo results found for: CREATNo results found for: PSAGlucose, Urine (mg/dL)Date Value09/12/2017 Negative Bilirubin, Urine (no units)Date Value09/12/2017 Negative Ketones, Urine (no units)Date Value09/12/2017 1+ (A) Specific [place], Ur (no units)Date Value09/12/2017 1.016 Hemoglobin/Blood ,Ur [...] Calculus, kidney (primary encounter diagnosis)N20.1 Calculus of yesgztJ40.9 Right flank painI10 Essential iltnxexfhfzsW50.1 Family history of byltrmlsfhgisfiK54.49 Family history of muchhsfvuhjdfxitebpE42.9 Low vitamin D mpmtdJ42.90 Abnormal urinalysisGLICKBEECH GROVE UROLOGICAL AND KIDNEY INSTITUTEPRE-OP NOTEDate of Procedure: [...] signedSIGNATURE: Bonita Ozuna CNP PATIENT NAME: Darrell Xavier: September 12, 2017 : 11:45 AM PAGER/CONTACT #: Dong [facility] 09-12-2017 HOSP Patient Update ([facility]) DARRELL NELSON ([id number]) 1950 MDate Time Provider Rtcaozcbai72/12/17 ASHTYN RABAGO (RN) [facility] During your visit today, we recorded the following information about you:Allergies As of Date: 09/12/2017(No Known Allergies)Date Reviewed: 09/12/2017Reviewed by: Az Ann MA - Fully AssessedOrder(s):SURGICAL REQUEST - ELECTIVE [[id number]] Order #: [id number]: 1Prescriptions as of 09/12/2017 Sig: POTASSIUM CITRATE [...] FOR* More...Follow-up and Disposition History RecordedEncounter Number: [id number] Status:Closed by ASHTYN RABAGO on 09/12/17 Normal [facility] Patient:Darrell Nelson LMRN: Height:5' 10 (1.778 m)Weight:175 lb (79.379 kg)Outpatient Medications as of 10/11/17:potassium citrate ER (UROCIT-K) 10 mEq (1,080 mg) TbERtamsulosin ER (FLOMAX) 0.4 mg ib90spsjdczd (COZAAR) 25 mg tabletmultivitamin tabletAdmission/Clinic Administered Medications [...] 20 years. [facility] 1.5 years ago. Patient has [...] Urine Negative NegativeKetones, Urine Negative 1+ (A)Specific [place], Ur 1.005 - 1.030 1.016Hemoglobin/Blood,Ur Negative 2+ [...] with more than 50% of the total lsrq-nb-ffqh time of thevisit devoted to patient counseling/coordination of care.Feliciano Schroeder, MDDirector, Surgical Stone Disease, [facility] Urologic InstituteProfessor of Surgery, [facility] Edwin ShawPager [phone]/12/2017Previous VersionBonita Ozuna CNP 09/12/2017 7:38 PM SignedUROLOGY SURGICAL HANDPSERVICE DATE: 09/12/2017REFERRING PROVIDER: Cleveland Llanes MD[address] [facility] [address]ZAB: No PcpGENDER:SUBJECTIVECHIEF COMPLAINT: Pre-op examHISTORY OF PRESENT [...] symtoms or problems.No history of angina, CHF, [place], cardiac surgery of stents.Respiratory: Negative for current cough, dyspnea. No hx of pneumonia in the pastsix weeksPositive: PND, sinus drainage from allergiesGastrointestinal: No history of GERD, PUD, abd pain, difficulty swallowing, GIbleed.Renal: +stonesMusculoskeletal: Negative for joint pain or swelling, back pain or muscle pain.Skin: Negative for lesions, rash and itching.Psychological: No history of psychiatric symptoms or problems.Neurologic: No history of TIA's, stroke, WIRE STOCKKEEPER tumor, impaired sensorium,hemiplegia, paraplegia or quadriplegia. No [...] ) Wt 79.4 kg (175 lb) BMI 25.11kg/z7Awicdcjibyn Max: @TMAXREFRESH(24)@ALLERGIES:ISIS RGIESNo Known AllergiesLABS:No results found for: BUNNo results found for: CREATNo results found for: PSAGlucose, Urine (mg/dL)Date Value09/12/2017 Negative Bilirubin, Urine (no units)Date Value09/12/2017 Negative Ketones, Urine (no units)Date Value09/12/2017 1+ (A) Specific [place], Ur (no units)Date Value09/12/2017 1.016 Hemoglobin/Blood ,Ur [...] Calculus, kidney (primary encounter diagnosis)N20.1 Calculus of jxyvycP19.9 Right flank painI10 Essential jcshrdyhuxfvG45.1 Family history of jczfcmbzopawpnlS81.49 Family history of txmwgtakszdokhgmdtvK29.9 Low vitamin D uutawI63.90 Abnormal urinalysisGLICKMAN UROLOGICAL AND KIDNEY INSTITUTEPRE-OP NOTEDate [...] permitted. [facility], you may have water during [...] 2017 : 11:45 AM PAGER/CONTACT #: Dong [facility] PROGRESSon 09-12-2017 PROGRESS HNO ID: [id number] thor: Feliciano NobleService: (none)Author Type: PhysicianType: Progress [...] Urine Negative NegativeKetones, Urine Negative 1+ (A)Specific [place], Ur 1.005 - 1.030 1.016Hemoglobin/Blood,Ur Negative 2+ [...] with more than 50% of the total fgyt-ey-vcnkxsjd of the visit devoted to patient counseling/coordination of care.Feliciano Schroeder, MDDirector, Surgical Stone Disease, [facility] Urologic InstituteProfessor of Surgery, [facility] ShawPager [phone]/12/2017 Normal [facility] PTH, Intacton 09-12-2017 PTH, Intact 26 pg/mL Normal 15-65 [facility] Comment on above: Performed By: #### I CA, CBCDIF, VITD, PTHI, CMP, URIC ####[address] [phone] Type and SCR (30D)on 017 ABO/RH(D) Positive Normal [facility] Comment on above: Performed By: #### T SCR30 ####[place] [phone] Antibody Screen Negative Normal [facility] Comment on above: Performed By: #### T SCR30 ####[facility] [address] [place], [place] [phone] Uric Acidon 09-12-2017 Urate 4.9 mg/dL Normal 4.0-8.1 [facility] Comment on above: Performed By: #### I CA, CBCDIF, VITD, PTHI, CMP, URIC ####[facility] [address] [place], [place] [phone] Urinalysison 09-12-2017 Bilirubin, Urine Negative Normal Negative [facility] Comment on above: Performed By: #### U A ####[address] [phone] Comments SEE COMMENT Normal [facility] Comment on above: Result Comment: Micr oscopic Examination Performed Performed By: #### U A ####[place] [address] [address] [place] [phone] Erythrocytes (RBC) 10*6/uL Critically abnormal 0-3 [facility] Comment on above: Performed By: #### U A ####[place] [address] [place] [phone] Hemoglobin mass conc (Bld) 2+ Critically abnormal Negative [facility] Comment on above: Performed By: #### U A ####[place] [address] [place] [phone] Leukest 3+ Critically abnormal Negative [facility] Comment on above: Performed By: #### U A ####[place] [address] [place] [phone] pH of blood 7.0 [pH] Normal 4.5-8.0 [facility] Comment on above: Performed By: #### U A ####[place] [address] [place] [phone] Protein, Urine 30 mg/dL Critically abnormal Negative [facility] Comment on above: Performed By: #### U A ####[place] [address] [place] [phone] Specific [place], Ur 1.016 Normal 1.005-1.03 0 [facility] Comment on above: Performed By: #### U A ####[place] [address] [place] [phone] Urine Kelby Comment SEE COMMENT Normal [facility] Comment on above: Result Comment: N/A Performed By: #### U A ####[place] [address] [place] [phone] Urine, clarity Cloudy Critically abnormal Clear [facility] Comment on above: Performed By: #### U A ####[facility] [place] [phone] Urine, color Yellow Normal Yellow [facility] Comment on above: Performed By: #### U A ####[place] [address] [address] [place] [phone] Urine, epithelial cells in sediment SEE COMMENT Normal [facility] Comment on above: Result Comment: FewS quamous Epithelial Cells Performed By: #### U A ####[place] [address] [place] [phone] Urine, glucose presence Negative Normal Negative [facility] Comment on above: Performed By: #### U A ####[place] [address] [place] [phone] Urine, ketones presence 1+ Critically abnormal Negative [facility] Comment on above: Performed By: #### U A ####[place] [address] [place] [phone] Urine, nitrite presence Negative Normal Negative [facility] Comment on above: Performed By: #### U A ####[place] [address] [place] [phone] Urine, urobilinogen Normal Normal Normal [facility] Comment on above: Performed By: #### U A ####[place] [phone] WBC (Leukocytes) 10*3/uL Critically abnormal 0-5 [facility] Comment on above: Performed By: #### U A ####[place] [address] [address] [place] [phone] Urine Cultureon 09-12-2017 Urine culture, bacteria Sp. Request/Comment: - Specimen received in preservative Culture Result - No growth (<1,000 CFU/ml) Normal [facility] Comment on above: Performed By: #### U RCUL ####[place] [address] [place] [phone] Vitamin D 25 Hydroxyon 09-12 Vitamin D 25 Hydroxy 38.6 ng/mL Normal 31.0-80.0 [facility] Comment on above: Result Comment: Clas sification of 25 [place] Vitamin D status:Insufficiency/Moderate Deficiency: < or = 30 ng/mLSufficiency/Optimal Levels: 31 to 80 ng/mLToxicity: > 100 ng/mLTest performed by chemiluminescent immunoassay. Performed By: #### I CA, CBCDIF, VITD, PTHI, CMP, URIC ####[facility] [address] [place], [place] [phone] SR-CT Abdomen/Pelvis w/o Con trast IMPORTon 09-07-2017 SR-CT Abdomen/Pelvis w/o Contrast IMPORT Images were obtained outside of [facility] [id number] Normal [facility] Vital Signs Date Time Vital Sign Value Performing Clinician Facility 10-16-2024 08:06-0500 Blood Pressure Location [facility] 10-16-2024 08:06-0500 Diastolic blood pressure 100 mm[Hg] [facility] 10-16-2024 08:06-0500 Heart rate 78 /min [facility] 10-16-2024 08:06-0500 Systolic blood pressure 163 mm[Hg] [facility] 03-20-2024 08:14-0400 Diastolic blood pressure 85 mm[Hg] [facility] 03-20-2024 08:14-0400 Heart rate 66 /min [facility] 03-20-2024 08:14-0400 Systolic blood pressure 146 mm[Hg] Rock LUJAN [facility] 08-23-2023 08:30-0500 Blood Pressure Location Laura Orzech [facility] 08-23-2023 08:30-0500 Diastolic blood pressure 91 mm[Hg] Laura Orzech [facility] 08-23-2023 08:30-0500 Heart rate 88 /min Laura Orzech [facility] 08-23-2023 08:30-0500 Respiratory rate 16 /min Laura Orzech [facility] 08-23-2023 08:30-0500 Systolic blood pressure 151 mm[Hg] Laura Orzech [facility] 08-07-2023 08:45-0500 Body height 172.72 cm Abigail Sanchez Other [facility] Other 08-07-2023 08:45-0500 Body mass index (BMI) [Ratio] 25.18 kg/m2 Abigail Sanchez Other [facility] Other 08-07-2023 08:45-0500 Body weight 75.12 kg Abigail Sanchez Other [facility] Other 08-07-2023 08:45-0500 Diastolic blood pressure 73 mm[Hg] Abigail Sanchez Other [facility] Other 08-07-2023 08:45-0500 SaO2% (BldA) [Mass fraction] 99 % Abigail Sanchez Other [facility] Other 08-07-2023 08:45-0500 Systolic blood pressure 165 mm[Hg] Abigail Sanchez Other [facility] Other 11-17-2022 09:30-0500 Body height 172.72 cm Abigail Sanchez Other [facility] Other 11-17-2022 09:30-0500 Body mass index (BMI) [Ratio] 27.82 kg/m2 Abigail Sanchez Other [facility] Other 11-17-2022 09:30-0500 Body weight 83.01 kg Abigail Sanchez Other [facility] Other 11-17-2022 09:30-0500 Diastolic blood pressure 82 mm[Hg] Abigail Sanchez Other [facility] Other 11-17-2022 09:30-0500 SaO2% (BldA) [Mass fraction] 97 % Abigail Sanchez Other [facility] Other 11-17-2022 09:30-0500 Systolic blood pressure 140 mm[Hg] Abigail Sanchez Other [facility] Other 07-26-2022 13:18-0400 Blood Pressure Location Dharmesh LORRAINEL [facility] [place] 07-26-2022 13:18-0400 Diastolic blood pressure 98 mm[Hg] Dharmesh NILL [facility] [place] 07-26-2022 13:18-0400 Heart rate 72 /min Dharmesh NILL [facility] [place] 07-26-2022 13:18-0400 Respiratory rate 16 /min Dharmesh PETERSL [facility] [place] 07-26-2022 13:18-0400 Systolic blood pressure 138 mm[Hg] Dharmesh WALTERS [facility] [place] Encounters Encounter Date Encounter Type Care Provider Facility Start: 04-23-2025 ambulatory Rock LUJAN Facility :[facility] Start: 01-30-2025 ambulatory SANJU HOWARD [facility] [place] Start: 01-30-2025 End: 01-30-[address] [facility] Start: 01-13-2025 End: 01-13-2025 ambulatory [facility] Start: 12-20-2024 End: 12-20-2024 ambulatory [facility] Start: 11-08-2024 End: 11-08-2024 ambulatory [facility] Start: 10-16-2024 End: 10-16-2024 ambulatory Rock LUJAN Facility:[facility] Start: 10-16-2024 End: 10-16-2024 Patient encounter procedure Rock Pollock KARLEE [facility] Start: 03-20-2024 End: 03-20-2024 ambulatory Rock Maris KARLEE Facility:[facility] Start: 03-20-2024 End: 03-20-2024 Patient encounter procedure Rock Maris LUJAN [facility] [place] Start: 08-23-2023 End: 08-23-2023 Patient encounter procedure Laura X Phong [facility] Start: 08-11-2023 End: 08-11-2023 ambulatory Abigail Sanchez Other [facility] Other Start: 08-11-2023 Telephone encounter Abigail Sanchez [facility] Start: 08-07-2023 End: 08-07-2023 ambulatory Abigail Sanchez Other [facility] Other Start: 08-07-2023 Office outpatient vi sit 15 minutes Abigail Sanchez [facility] Start: 02-08-2023 End: 02-09-[address] ROCK LUJAN Facility:[facility] Start: 11-17-2022 End: 11-17-2022 ambulatory Abigail Sanchez Other [facility] [employer] Other Start: 11-17-2022 Encounter for other preprocedural examination Abigail Sanchez [facility] Start: 11-17-2022 Office outpatient vi sit 15 minutes Abigail Sanchez [facility] Start: 11-03-2022 End: 11-04-[address] DENISHA GARCIA Facility:[facility] Start: 08-31-2022 Encounter for preprocedural laboratory examination DR DHARMESH WALTERS . [facility] Start: 08-31-2022 End: 08-31-[address] DHARMESH WALTERS . Facility:[facility] Start: 08-26-2022 End: 08-27-[address] DHARMESH WALTERS . Facility:[facility] Start: 08-26-2022 End: 08-27-2022 Encounter for preprocedural laboratory examination DR DHARMESH WALTERS . Facility:[facility] Start: 07-26-2022 End: 07-26-2022 Patient encounter procedure Dharmesh WALTERS [facility] Start: 06-30-2022 Adult health examination Gricelda Sanchez Other [facility] Other Start: 06-28-2022 End: 06-29-[address] ABIGAIL SANCHEZ Facility:[facility] Start: 04-27-2022 End: 04-27-2022 Patient encounter procedure Rock LUJAN [facility] Start: 04-20-2022 End: 04-21-[address] ROCK LUJAN Facility:[facility] Start: 10-21-2017 End: 10-22-2017 Ambulatory ALEXA GARCIA [facility] Start: 10-13-2017 End: 10-13-2017 Ambulatory FELICIANO SCHROEDER [facility] Start: 10-11-2017 End: 10-13-2017 Ambulatory FELICIANO SCHROEDER [facility] Start: 09-12-2017 End: 09-12-2017 Ambulatory FELICIANO SCHROEDER [facility] Start: 09-12-2017 End: 09-18-2017 Ambulatory FELICIANO SCHROEDER [facility] Procedures Date Procedure Procedure Detail Performing Clinician Start: 08-31-2022 Colonoscopy Laura [facility] Start: 08-31-2022 Esophagogastroduodenoscopy Laura [employer] Start: 04-12-2019 Screening for malignant neoplasm of prostate Abigail Sanchez Other Start: 10-11-2017 Removal of calculus of renal pelvis through percutaneous nephrostomy Rock LUJAN Start: 10-02-2017 Cystoscopic removal of ureteric stent Rock LUJAN Start: 01-13-2016 Cysto, right RGP, right JJ stent Rock KARLEE Start: 09-16-2015 Neck Surgery Rock KARLEE Bilateral hernia repair Martin LUJAN Bilateral inguinal hernia repair Dharmesh PETERSL Cholecystectomy Rock LUJAN Colonoscopy Dharmesh NILEmmanuelle History of surgical procedure on cervical spine Dharmesh NILL History of surgical procedure on cervical spine Dharmesh NILL Sinus Surgery Rock KARLEE Immunizations Immunization Date Immunization Notes Care Provider Fabiola velazquez 08-16-2021 COVID-19 Vaccine Pfizer - Documentation Purposes Only Abigail Sanchez Other [facility] 01-07-2021 COVID-19 Vaccine Pfizer - Documentation Purposes Only Abigail Sanchez Other [facility] 12-17-2020 SARS-CoV-2 (COVID-19 ) mRNA BNT-162b2 vax [employer] [facility] NEGATED: Highlighted row has not occurred!10-16-2024 influenza virus vaccine, unspecified formulation Rock LUJAN [facility] NEGATED: Highlighted row has not occurred!08-23-2023 influenza virus vaccine, unspecified formulation [employer] [facility] Payers Date Payer Category Payer Medicare [id number] 2. [id number] 1950 Unknown [id number] 2.16.84 [id number] 1950 Unknown [id number] 2.16.84 [id number] 1948 Unknown [id number] 2.16.84 [id number] 1948 Unknown [id number] 2.16.84 [id number] 1948 Unknown [id number] 2.16.84 [id number] 1948 Unknown [id number] 2.16.84 [id number] 1948 Unknown [id number] 2.16.8 [id number] 1948 Unknown [id number] 2.16.8 [id number] 1948 Unknown [id number] 2.16.8 [id number] Social History Date Type Detail Facility Start: 04-27-2022 End: 10-16-2024 Tobacco smoking status Never smoked tobacco (finding) [facility] Tobacco smoking status Never [facility] Sex Assigned At Male [facility] Functional Status Date Assessment Result Facility 10-16-2024 Functional Status N/A [facility] 03-20-2024 Functional Status N/A [facility] 08-23-2023 Functional Status N/A [facility] 07-26-2022 Functional Status N/A [facility] Functional Status N/A [facility] Clinical Notes 04-27-2022 to 01-30-2025 Note Date & Type Note Facility 01-30-2025 Note Cardiothoracic Surge ry Outpatient Consultation Note 01/30/2025 Reason For Visit Chief Complaint Patient presents with Consult Mitral valve Referring Provider: John Plasencia MD History Of Present Illness Darrell Nelson is a 74 y.o. male with PMH of hypertension, prostate hypertrophy, kidney stones. No prior cardiac history. No history of hyperlipidemia or diabetes mellitus or smoking. During routine physical examination cardiac murmur was detected and echocardiographic study was ordered showing mitral valve prolapse with moderate to severe mitral regurgitation and moderate pulmonary hypertension. He was referred to Dr. 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 EF remains normal. Patient was referred to CT Surgery for surgical evaluation and recommendations. He states he is very active, exercises routinely. Denies symptoms of SOB, CP, lower extremity edema, Dizziness, or Syncope. Assessment: Diagnosis Plan 1. Essential hypertension 2. Nonrheumatic mitral valve regurgitation Ambulatory referral to Cardiothoracic Surgery 3. Benign prostatic hyperplasia, unspecified whether lower urinary tract symptoms present 4. Pulmonary hypertension (CMS/HCC) Plan : -Patient seen and evaluated by Cardiothoracic Team. Dr. Asher Torres personally examined the patient and reviewed The Cardiac Catherization, Echocardiogram, CXR, and Other Diagnostic Testing. Findings discussed with patient. Explained current disease process and reviewed treatment options. 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 Severe mitral regurgitation and EF is preserved. He is a good operative candidate currently, but is not in an emergent need for surgery. Patient would like to wait and repeat echocardiogram in 6 months. In the meantime will assess bilateral carotid US and obtain left/right cardiac catherization in preparation for future pre-op planning. Patient was agreeable to plan. -Refer to Dr. Love for cardiac catherization. -US of carotids to be performed in [place]. -Of note BP 181/91 and HR 73, patient endorses some anxiety with visit. BP reassess and WNL. -Follow-up in office in 6 months with echocardiogram prior. Informed if symptoms of fatigue, SOB, chest pain, swelling of lower extremities arises or worsens to call office to be evaluated. Past Medical History He has a past medical history of Abnormal ECG, Heart murmur, Heart valve disease, Hypertension, and Mitral valve prolapse. Surgical History He has a past surgical history that includes Neck surgery; Hernia repair; Gallbladder surgery; and Sinus surgery. Family History Family History Problem Relation Name Age of Onset Diverticulitis Mother Rosy Nelson Cancer Mother Rosy Nelson Accidental Brother Social History He reports that he has never smoked. He has never used smokeless tobacco. He reports current alcohol use of about 3.0 standard drinks of alcohol per week. He reports that he does not use drugs. Allergies Patient has no known allergies. Medications Current Outpatient Medications Medication Sig Dispense Refill losartan (Cozaar) 50 mg tablet Take 1 tablet (50 mg) by mouth once daily as directed. 90 tablet 3 multivitamin tablet Take 1 tablet by mouth in the morning. psyllium (Metamucil) 0.4 gram capsule Take 5 capsules by mouth if needed. tamsulosin (Flomax) 0.4 mg 24 hr capsule Take 0.4 mg by mouth 2 times daily. TURMERIC ORAL Take by mouth. losartan (Cozaar) 25 mg tablet Take 25 mg by mouth in the morning. No current facility-administered medications for this visit. Review of Systems Review of Systems: All 14 Systems Reviewed and Negative unless otherwise indicated in the above HPI. Last Recorded Vitals Visit Vitals BP (!) 181/91 (BP Location: Right arm, Patient Position: Sitting, BP Cuff Size: Adult) Pulse 73 Physical Exam Vitals reviewed. Constitutional: General: He is not in acute distress. Appearance: Normal appearance. He is normal weight. He is not ill-appearing. HENT: Head: Normocephalic and atraumatic. Mouth/Throat: Mouth: Mucous membranes are moist. Pharynx: Oropharynx is clear. Eyes: Extraocular Movements: Extraocular movements intact. Conjunctiva/sclera: Conjunctivae normal. Pupils: Pupils are equal, round, and reactive to light. Neck: Vascular: Carotid bruit (bilateral) present. Cardiovascular: Rate and Rhythm: Normal rate and regular rhythm. Pulses: Normal pulses. Heart sounds: Murmur heard. Pulmonary: Effort: Pulmonary effort is normal. No respiratory distress. Breath sounds: Normal breath sounds. Abdominal: General: Abd (more content not included)... [facility] 01-30-2025 Note This report has been cancelled. [facility] 01-21-2025 Note I am not able to swi tch this referral to get it in our worque :( Karen 10:35 AM AF Shayan Justice RN see if it is in the WQ now. 25 mins AF PC Floyd Mcduffie RN Nope :( 19 mins You were added by Floyd Mcduffie RN. 18 mins PC PAN Vinson Will you schedule him before 02/14/25 Mitral Valve Regurgitation referral from Dr. Plasencia [facility] 01-13-2025 Note [facility] Note Reason [...] aorta. Assessment a (more content not included)... [facility] 11-08-2024 Note [place] [facility] Note Reason for cardiology [...] patient the findings (more content not included)... [facility] 10-16-2024 Hospital Discharge instructions Patient Education [...] treatment? Where to find more information The [place] [employer]: www.cancer.org [place] [employer]: www.auanet.org Contact a health care [...] provider. Document Revised: 03/14/2022 Document Reviewed: 03/14/2022 [employer] Patient Education 2023 [employer]. Follow Up Care 03/20/2024 09:04:03 With:KARLEE GA, Rock Pollock, URL Address: [address] [place], [place] [id number]- When: Unknown [facility] 10-16-2024 Note Patient Education Oncology Prostate [...] Where to find more information ??? The [place] [employer]: www.cancer.org ??? [place] [employer]: www.auanet.org Contact a health care [...] The prostate gland (more content not included)... [facility] 03-20-2024 Hospital Discharge instructions Patient Education [...] urethra. Follow these instructions at home: Take fhsd-rqr-byecjcc and prescription medicines only as told by [...] provider. Document Revised: 04/06/2022 Document Reviewed: 04/06/2022 [employer] Patient Education 2022 [employer]. Follow Up Care 08/23/2023 09:06:17 With:KARLEE GA, Rock Pollock, URL Address: [address] [place], [place] [id number] When: Unknown [facility] 08-23-2023 Hospital Discharge instructions Patient Education [...] urethra. Follow these instructions at home: Take upyt-ofb-kkttgff and prescription medicines only as told by [...] provider. Document Revised: 04/06/2022 Document Reviewed: 04/06/2022 [employer] Patient Education 2022 [employer]. 08/23/2023 11:10:20 Prostate Cancer Screening Prostate Cancer [...] treatment? Where to find more information The [place] [employer]: www.cancer.org [place] [employer]: www.auanet.org Contact a health care [...] provider. Document Revised: 03/14/2022 Document Reviewed: 03/14/2022 [employer] Patient Education 2022 [employer]. Follow Up Care 02/15/2023 12:04:24 With:KARLEE GA, Rock Pollock, URL Address: [address] [place], [place] [id number]- When: Unknown [facility] 08-07-2023 Evaluation note Encounter Date Diagnosis [...] Has passed the quarantine dates. Rest, hydrate. [facility] Other 02-16-2023 Evaluation note* Encounter Date Diagnosis Assessment Notes Treatment Notes Treatment Clinical Notes Nov, Preoperative clearance (ICD-10 - Z01.818) Excluding any abnormalities and upcoming preoperative testing, Darrell is cleared for surgery. He is scheduled with Dr. Holder for a robotic sigmoid colectomy on March 8. Nov, Tubulovillous adenoma of colon (ICD-10 - D12.6) Discussed iron deficiency anemia history. This had prompted our colonoscopy which took months to complete. Patient is anticipating getting the surgery completed and behind him at this juncture. Nov, Essential hypertension (ICD-10 - I10) [facility] Other 11-30-2022 NoteOP Note OPERATION DATE: 08/31/2022 [...] year after that. CC: Abigail Sanchez M.D.[facility] [phone] NoteOPERATIVE NOTE OPERATION DATE: 08/26/2022 PREOPERATIVE DIAGNOSIS: [...] in good condition. CC: Abigail Sanchez M.D.[facility] [phone] NoteOPERATIVE NOTE OPERATION DATE: 08/26/2022 PREOPERATIVE DIAGNOSIS: [...] one year after that. CC: Abigail Sanchez M.D.[facility]07-27-2022 Hospital Discharge instructions Patient Education 04/27/2022 [...] urethra. Follow these instructions at home: Take uvvx-pak-czduyyt and prescription medicines only as told by [...] 09/18/2006 Document Revised: 08/13/2019 Document Reviewed: 10/23/2017 [employer] Patient Education 2020 [employer]. Follow Up Care 10/25/2021 11:53:28 With:Rock LUJAN MD, URL Address: [address] [place], [place] [id number]- When:Within 6 Month(s) [facility] Evaluation + Plan note Future Appointments Appointment Date:10/17/2022 08:00:00 AM Scheduled Provider:Rock LUJAN MD Location:[facility] Appointment Type:URO Office Visit Diagnostic Tests Pending * PSA Free & Total 09/01/22 [facility] Evaluation + Plan note Future Appointments Appointment Date:10/17/2022 08:00:00 AM Scheduled Provider:Rock LUJAN MD Location:[facility] Appointment Type:URO Office Visit General Surgery [place] Evaluation + Plan note Future Appointments Appointment Date:03/20/2024 08:00:00 AM Scheduled Provider:Rock LUJAN MD Location:[facility] Appointment Type:URO Office Visit Diagnostic Tests Pending * PSA Free & Total 08/23/23 [facility] Evaluation + Plan note Future Appointments Appointment Date:10/16/2024 08:00:00 AM Scheduled Provider:Rock LUJAN MD Location:[facility] Appointment Type:URO Office Visit Diagnostic Tests Pending * PSA Free & Total 07/02/24 [facility] Evaluation + Plan note Future Appointments Appointment Date:04/23/2025 08:45:00 AM Scheduled Provider:Rock LUJAN MD Location:[facility] Appointment Type:URO Office Visit Diagnostic Tests Pending * PSA Free & Total 03/02/25 [facility] Evaluation noteNo InformationNofreeman orthopaedics & sports medicine [employer] Other Hisxcjv general Narrative - Reported* Type Description Date Medical History Iron deficiency anemia Medical History Fatigue Medical History Dyspnea on exertion Medical History Essential hypertension Surgical History CHOLECYSTECTOMY Surgical History CERVICAL DISC SURGERY Surgical History 2 INGUINAL HERNIA SURGERY Hospitalization History SEE SURGICAL HX [facility] Other History general Narrative - Reported* Type Description Date Medical History Iron deficiency anemia Medical History Fatigue Medical History Dyspnea on exertion Medical History Essential hypertension Surgical History CHOLECYSTECTOMY Surgical History CERVICAL DISC SURGERY Surgical History 2 INGUINAL HERNIA SURGERY Surgical History Colonoscopy 2022 Surgical History Bowel resection 11/2022 Hospitalization History SEE SURGICAL HX [facility] Other Hospital course Narrative No data available for this section [facility] Hospital Discharge instructions No data available for this section General Surgery [place] [facility] note No data available for this section [facility] Summary Purpose Family History No Family [...] section and content) DATE CREATED AUTHOR 03/26/2018 [facility] DATE CREATED AUTHOR AUTHOR'S ORGANIZ ATION 03/31/2022 [facility] DATE CREATED AUTHOR AUTHOR'S ORGANIZ ATION 02/12/2023 [facility] DATE CREATED AUTHOR AUTHOR'S ORGANIZ ATION 10/17/2024 [facility] DATE CREATED AUTHOR AUTHOR'S ORGANIZ ATION 02/07/2025 [facility] Care Team (unrecognized sect ion and content) Personnel Name: ABIGAIL SANCHEZ MD Address: [address] [place] [address] Personnel Name: ABIGAIL SANCHEZ MD Address: Address: [address] [place] [address] Personnel Name: ABIGAIL SANCHEZ MD Address: Address: [address] [place] [address] Personnel Name: ABIGAIL SANCHEZ MD Address: Address: [address] [place] [address] Personnel Name: ABIGAIL SANCHEZ MD Address: Address: [address] [place] [address] REASON FOR VISIT (unrecogniz ed section and [...] BE BASED ON THE PRIMARY CLINICAL RECORDS. [facility]. provides no warranty or guarantee of the accuracy or completeness of information in this document.
== END 2025-02-10 09:19 | disposition home or self-care (01) ==
LOC: US 09:18
PROVIDERS: PCP Family Medicine; Visit Provider Thoracic Surgery (Cardiothoracic Vascular Surgery)
DX: Z01.818 Encounter for other preprocedural examination (principal); R09.89 Other specified symptoms and signs involving the circulatory and respiratory systems
CPT/HCPCS: 93880

== ENCOUNTER 2025-02-25 10:07 | Outpatient (OUT) | payer MEDICARE, SELFPAY ==
[2025-02-25 10:33] LABS: Basophils Absolute Auto 0.1 10^3/uL (0.0-0.1); Basophils Percent Auto 0.5 % (0.2-2.0); Eosinophils Absolute Auto 0.2 10^3/uL (0.0-0.7); Hemoglobin 13.7 g/dL (14.0-18.0); Immature Granulocytes Abs Auto 0.02 10^3/uL (0.00-0.03); Immature Granulocytes Pct Auto 0.2 % (0.0-0.5); Lymphocytes Absolute Auto 3.6 10^3/uL (1.2-3.8); Lymphocytes Percent Auto 36.2 % (20.5-60.0); Mean Corpuscular HGB Conc 33.4 g/dL (29.9-35.2); Mean Corpuscular Hemoglobin 29.3 pg (25.9-34.0); Mean Corpuscular Volume 87.6 fL (80.0-94.0); Mean Platelet Volume 11.1 fL (9.5-13.5); Monocytes Absolute Auto 0.8 10^3/uL (0.3-0.8); Neutrophils Absolute Auto 5.3 10^3/uL (1.4-6.5); Neutrophils Percent Auto 53.1 % (43.0-75.0); Platelet Count 135 10^3/uL (150-450); Red Blood Count 4.68 10^6/uL (4.70-6.10); Red Cell Distribution Width 14.1 % (11.0-15.0)
== END 2025-02-25 10:08 | disposition home or self-care (01) ==
PROVIDERS: PCP Family Medicine; Visit Provider Family Medicine
DX: D50.8 Other iron deficiency anemias (principal)
CPT/HCPCS: 36415; 82728; 83540; 83550; 85025

== ENCOUNTER 2025-04-16 06:58 | Outpatient (OUT) | payer MEDICARE, SELFPAY ==
--- OUTSIDE RECORDS SUMMARY | 2024-11-28 05:30 | XMS_ITS | Encounter Summary ---
Author Name [facility] [employer] [place] Organization [facility] [employer] [place] Address [address] [place] [id number] Care Team Providers Care Maintenance Services Dispatcher Name Role Phone VIOLETA GOLDBERG Primary Care Provider Unavail able Insurance Providers: All historical and current Section Date Range: From patient's date of to the date document was created. This section includes the names of all active insurance providers for the patient. Insurance Provider Type of Coverage Plan Name Start of Policy Coverage End of Policy Coverage Group Number Member ID Insurance Provider's Telephone Number Policy Somers's Name Patient's Relationship to Policy Somers AEST. [facility] ([facility]) MEDICARE ADVANTAGE MCR ([facility]) Oct 02, 2020 [id number] [place] [id number] [phone] [place] [employer] [facility] ([facility]) MEDICARE [facility] ([facility]) Oct 02, 2020 [id number] [place] [id number] [place] [facility] BENEFITS PREFERRED PROVIDER ORGANIZAT ION (PPO) WHIRL POOL CORPO RATIO Oct 02, 2009 WHIRL [id number] [phone] MIKALA [place] SPOUSE MEDICARE ([facility]) MEDICARE () PART A Aug 02, 2013 PART A [id number] [place] ([facility]) MEDICARE () PART B Aug 02, 2013 PART B [id number] [phone] [place] (WNR) MEDICARE (M) PART B Aug 02, 2013 PART B [id number] [place] Selected Encounter This section includes the information on record at [place] for the Encounter. Date/Time Encounter Type Encounter Description Reason Provider Source Nov 28, 2024 09:30 AM TELEHEALTH FACILITY FEE PRIMARY CARE/MEDICINE ICD-10-CM I10 Essential (primary) hypertension LUCITA GUSMAN Encounter Template Text not used by [place] Assessments - Encounter Diagnoses This section includes the primary and secondary diagnoses documented for the Encounter. Date/Time Primary/Secondary Diagnosis Diagnosis Name Provider Source Nov 28, 2024 11:32 AM PRIMARY Essential (primary) hypertension [facility] Social History: Smoking Status (Most current) and Tobacco Use (All prior to encounter date) This section includes the most current, and the historical, smoking and tobacco- related health factors from the [place] facility where the Encounter took place. Current Smoking Status This section includes the most current smoking, or tobacco-related health factor, from the [place] facility where the Encounter took place. Date/Time Current Smoking Status Comment Wilber ity Oct 05, 2022 09:00 AM VA-TOBACCO NEVER USED [facility] Tobacco Use History This section includes a history of the smoking, or tobacco-related health factors, that were collected on or before the date of the Encounter. The data comes from the [place] facility where the Encounter took place. Date/Time Smoking Status/Tobacco Use Comment F acility Dec 31, 2020 08:00 AM VA-TOBACCO NEVER USED [facility] Dec 24, 2018 02:04 PM VA-TOBACCO NEVER USED [facility] Sep 09, 2009 02:55 PM LIFETIME NON-USER OF TOBACCO [facility] Encounter Notes: All associated encounter notes This section contains the clinical notes associated to the Encounter. Date/Time Encounter Note(s) Provider Source Nov 28, 2024 09:18 AM PRIMARY CARE NURSI KALI NOTE: LOCAL TITLE: OUTPATIENT NURSING INTAKE NOTE (T) STANDARD TITLE: PRIMARY CARE NURSING NOTE DATE OF NOTE: NOV 28, 2024@09:18 ENTRY DATE: NOV 28, 2024@09:18:08 AUTHOR: LUCITA GUSMAN EXP COSIGNER: URGENCY: STATUS: COMPLETED Hemoglobin A1C Results: No Hemoglobin A1C Results Review Allergies Allergies reviewed and updated per protocol. ALLERGIES/ADVERSE REACTIONS No Known Allergies New blood pressure reading was documented at this visit. 164/84 Have you fallen in the last 30 days? NO MEDICATION LIST REVIEW REPORT Patient states no change in documented OTC/Herbals at this visit. 1. Has the patient been feeling sad or distressed? No 2. Has the patient been having personal or family problems? No 3. Has the patient been experiencing worry and/or stress? No 4. Has the patient been having problems with drugs and/or alcohol? No 5. [facility] pocket card was provided to patient. Yes [facility] ([place] [place], [place] [employer] [place]) What matters most to you? Comment: My health Clinical Reminders Activity Advance Directive Education Screen: Patient received information regarding Advance Directives: Yes - Patient has been given information/education regarding Advance Directives. Patient advised to follow up with Social Work Service. Level of Understanding: Good Alcohol Use Screen (AUDIT-C): Alcohol Screen: SCREEN FOR ALCOHOL (AUDIT-C) An alcohol screening test (AUDIT-C) was negative (score=3). 1. How often did you have a drink containing alcohol in the past year? Consider a drink to be a 12 ounce can or bottle of regular beer, 8 ounces of malt liquor, a 5 ounce glass of table wine, or a 1.5 ounce shot of liquor (like scotch, gin, or vodka). Two to three times per week 2. How many drinks containing alcohol did you have on a typical day when you were drinking in the past year? One or two drinks 3. How often did you have six or more drinks on one occasion in the past year? Never COVID-19 Immunization: Refused Pfizer Monovalent COVID-19 vaccine Immunization: COVID-19 (PFIZER), MRNA, LNP-S, PF, ANGUS-SUCROSE, 30 MCG/0.3 ML (AGES 12+ YEARS) Refusal Reason: PATIENT DECISION Patient refuses all immunization(s) in the COVID-19 group Date Documented: 11/28/24 09:22 Depression Screening: Perform PHQ-2 A PHQ-2 screen was performed. The score was 0 which is a negative screen for depression. Over the past two weeks, how often have you been bothered by the following problems? 1. Little interest or pleasure in doing things Not at all 2. Feeling down, depressed, or hopeless Not at all Fall Screen: Patient was asked if he/she has had any falls within the past 12 months. Patients states no falls in past 12 months. Teaching Method: Verbal discussion Education Topic: Falls Risk Level of Understanding: Good Frail/Elderly Screen: ADL Screen - [place] Index of [place] in Activities of Daily Living Record INDEX of ADL. Score = 18 1. Bathing: either sponge bath, tub bath or shower. Receives no assistance (gets in and out of tub by self, if tub is usual means of bathing). 2. Dressing: gets clothes from closets and drawers, including under-clothes, outer garments and using fasteners (including braces if worn). Gets clothes and dresses self without assistance. 3. Toileting: going to the toilet room for bowel and urine elimination; cleaning self after elimination and arranging clothes. (May use cane, walker, or wheelchair, and manage bedpan or commode, emptying same next morning). No assistance needed. 4. Transfer: Moves in and out of bed, or chair, without assistance (may use support object like cane or walker). 5. Continence: Controls urination and bowel movement completely by self. 6. Feeding: Feeds self without assistance. IADL Screen - [place] Instrumental Activities of Daily Living Scale Ability to use telephone: (1 point) Operates Telephone on own initiative; looks up and dials numbers. Shopping: (1 point) Takes care of all shopping needs independently. Food preparation: (1 point) Plans, prepares, and serves adequate meals independently. Housekeeping: (1 point) Maintains house alone with occasional assistance (heavy work). Laundry: (1 point) Does personal laundry completely. Mode of transportation: (1 point) Travels independently on public transportation or drives own car. Responsibility for own medications: (1 point) Is responsible for taking medications in correct dosages at correct times. Ability to handle finances: (1 point) Manages financial matters independently (budgets, writes checks, pays rent and bills, goes to bank); collects and keeps track of income. Total score: 8 points 8 = High function, independent 0 = Low function, dependent Herpes Zoster (Shingles) Vaccine: The patient declines to receive the recommended dose of zoster (shingles) vaccine. Immunization: ZOSTER RECOMBINANT Refusal Reason: PATIENT DECISION Patient refuses all immunization(s) in the ZOSTER group Date Documented: 11/28/24 09:25 Homelessness/Food Insecurity Screen: In the past 2 months, have you been living in stable housing that you own, rent, or stay in as part of a household? Yes - Living in stable housing. Are you worried or concerned that in the next 2 months you may NOT have stable housing that you own, rent, or stay in as part of a household? No - Not worried about housing near future The [facility] reports the following: Within the past 12 months, you worried whether your food would run out before you got money to buy more. Never true Within the past 12 months, the food you bought just didn't last and you didn't have money to get more. Never true Influenza Immunization: Deferral / Refusal The patient declines to receive the recommended dose of seasonal influenza vaccine. Immunization: INFLUENZA, UNSPECIFIED FORMULATION Refusal Reason: PATIENT DECISION Patient refuses all immunization(s) in the FLU group Date Documented: 11/28/24 09:25 Learning Assessment: LEARNING NEEDS ASSESSMENT: I. Learning Preference: Hands-on II. Barriers to Learning: No Barriers to Learning III. Social Influences Related to Educational Needs: No social barriers to learning IV. Readiness to Learn: Patient Appears ready to learn. Pneumococcal Conjugate Vaccine (PCV15/PCV20/PCV21): Refuses PCV vaccine Immunization: PNEUMOCOCCAL CONJUGATE, UNSPECIFIED FORMULATION Refusal Reason: PATIENT DECISION Patient refuses all immunization(s) in the PneumoPCV group Date Documented: 11/28/24 09:27 RSV Immunization: Respiratory Syncytial Virus (RSV) Vaccine: Refused Apparity (Abrysvo, RSVpreF vaccine). Immunization: RSV, BIVALENT, PROTEIN SUBUNIT RSVPREF, DILUENT RECONSTITUTED, 0.5 ML, PF Refusal Reason: PATIENT DECISION Patient refuses all immunization(s) in the RSV group Date Documented: 11/28/24 09:27 Suicide Screen: C-SSRS Screening [place] Suicide Severity Rating Scale (C-SSRS) screener 1. Over the past month, have you wished you were or wished you could go to sleep and not wake up? No 2. Over the past month, have you had any actual thoughts of killing yourself? No 3. Over the past month, have you been thinking about how you might do this? Response not required due to responses to other questions. 4. Over the past month, have you had these thoughts and had some intention of acting on them? Response not required due to responses to other questions. 5. Over the past month, have you started to work out or worked out the details of how to kill yourself? Response not required due to responses to other questions. 6. If yes, at any time in the past month did you intend to carry out this plan? Response not required due to responses to other questions. 7. In your lifetime, have you ever done anything, started to do anything, or prepared to do anything to end your life (for example, collected pills, obtained a gun, gave away valuables, went to the roof but didn't jump)? No 8. If YES, was this within the past 3 months? Response not required due to responses to other questions. Tdap Immunization: The patient declines to receive the recommended dose of Tdap vaccine. Immunization: TDAP Refusal Reason: PATIENT DECISION Patient refuses all immunization(s) in the TDAP group Date Documented: 11/28/24 09:28 /wesley/ LUCITA GUSMAN LICENSED PRACTICAL NURSE Signed: 11/28/2024 09:28 LUCITA GUSMAN [facility]
--- OUTSIDE RECORDS SUMMARY | 2025-01-01 09:42 | XMS_ITS | Continuity of Care Document ---
Author Name [facility] Organization [facility] Care Team Providers Care Sales Recruiting Coordinator Name Role Phone [facility] Unavailable Unavailable Problems Combined list of problems from [facility] of [facility] and [facility] facilities. It does not include entries that were removed or entered in error. Problem Status Onset Date Problem Type Date of Resolution Comments Source Benign prostatic hyperplasia (SNOMED CT 716120621) Active Condition [facility] Elevated PSA Active Condition [facility] Essential hypertension Active Condition [facility] History of calculus of kidney (SNOMED CT 259504305) Active Condition [facility] History of polyp of colon Active Condition [facility] Diagnosis: ICD-10-CM I10 Essential (primary) hypertension Active Diagnosis [facility] Medications Combined list of outpatient medications from [facility] and [facility] facilities.Medications provided include 1) outpatient medications from the last 15 months, and 2) patient-reported medications. Medication Details Route Status Patient Instructions Prescription Expires Prescription Number Last Dispense Date Ordering Provider Order Date Order Qty Source LOSARTAN 25MG TAB TAKE ONE TABLET BY MOUTH EVERY DAY ORAL ACTIVE DEAN SANZ 2017 [facility] MULTIVITAMI NS W/MINERALS TAB 1 CAP/TAB MOUTH EVERY DAY ORAL ACTIVE MEÑO CHICAS 2008 [facility] TAMSULOSIN HCL 0.4MG CAP TAKE 1 CAPSULE BY MOUTH EVERY MORNING AND AT BEDTIME ORAL ACTIVE CASPER LOGAN [address] [facility] Immunizations Combined list of available immunizations from the Department [facility] and [facility] facilities. Immunization Series Date Given Administered By Site Reaction Lot Number CVX Code Drug Concrete Tester Status Comments Source COVID-19 ([employer]), MRNA, LNP-S, PF, 30 MCG/0.3 ML DOSE 3 2020 208 complet ed HISTORICA L INFORMATI ON - SOURCE UNSPECIFI ED, Per COVID-19 Vaccinati on Record Card Lot#: [id number] Mfr: [employer], [employer] [facility] COVID-19 (PFIZER), MRNA, LNP-S, PF, 30 MCG/0.3 ML DOSE [address] [facility] COVID-19 (PFIZER), MRNA, LNP-S, PF, 30 MCG/0.3 ML DOSE 1 [address] [facility] Vital Signs Combined list of inpatient and outpatient Vital Signs from Department of [facility] and [facility] Affairs, ranging from 12 months to all on record, depending upon the facility. Vital Sign Value Date Comments Source SYSTOLIC BLOOD PRESSURE 167 11/28/2024 09:16:48 [facility] DIASTOLIC BLOOD PRESSURE 90 11/28/2024 09:16:48 [facility] PULSE OXIMETRY 99 11/28/2024 09:16:48 [facility] WEIGHT 174.9 11/28/2024 09:16:48 [facility] BMI 25 kg/m2 11/28/2024 09:16:48 [facility] PAIN 0 11/28/2024 09:16:48 [facility] TEMPERATURE 97.5 11/28/2024 09:16:48 [place] PULSE 89 11/28/2024 09:16:48 [facility] RESPIRATION 16 11/28/2024 09:16:48 [place] Encounters Combined list of: 1) Encounters from [facility] Affairs facilities going backup to the last 18 months, not all [place] inpatient encounters are included; 2) Encounters from the Department of [facility] facilities going backup to 280 months. Location Location Details Encounter Type Encounter Number Reason For Visit Attending Provider ADM Date DC Date Status Disposition Source [facility] Outpatient Encounter [id number] 12/21 [facility] [place] Out[place] Encounter [id number] 03/22 [facility] [place] Outpatient Encounter [id number] 04/26 [facility] [place] [facility] FEE [id number] Diagnos is: ICD-10- CM I10 Essenti al (primar y) hyperte CASPER Ray 11/28 [facility] OFFICE O/P EST MOD 30 MIN [id number] Diagnos is: ICD-10- CM I10 Masood corona (primar y) TAMIKO Jama 11/28 [facility] [place] Outpatient Encounter [id number] 11/29 [facility] [place] Outpatient Encounter [id number] 01/01 [facility] Social History Combined list of available smoking, tobacco, and other social history from Department of Defense and Veterans Affairs facilities. Social History Type Response Date Comment [facility] e Tobacco smoking status MIIS VA-TOBACCO NEVER USED 10/05/2022 [facility] History of tobacco use VA-TOBACCO NEVER USED 12/31/2020 [facility] History of tobacco use VA-TOBACCO NEVER USED 12/24/2018 [facility] History of tobacco use LIFETIME NON-USER OF TOBACCO 09/09/2009 [facility]
--- OUTSIDE RECORDS SUMMARY | 2025-04-16 07:02 | XMS_ITS | Clinical Summary ---
Author Organization [employer] tem Address [id number] [address] [place] [address] Care Team Providers Care Cocktail Lounge Manager Name Role Phone Patricia Fontanez MD Primary Care Provider [phone] Allergies No known active allergies Medications tamsulosin (FLOMAX) 0.4 mg capsule Take 1 capsule (0.4 mg total) by mouth in the morning and 1 capsule (0.4 mg total) before bedtime. 09/28/2022 Active losartan (COZAAR) 25 mg tablet Take 1 tablet (25 mg total) by mouth in the morning. 09/28/2022 Active MULTIVITAMIN ORAL Take by mouth daily. Active acetaminophen (TYLENOL EXTRA STRENGTH) 500 mg tablet Take 2 tablets (1,000 mg total) by mouth every 6 (six) hours. 30 tablet 12/09/2022 Active psyllium husk (METAMUCIL ORAL) Take by mouth. Active Active Problems Problem Noted Date Diagnosed Date Arthritis 01/17/2023 Diverticulitis of colon 01/17/2023 Hypertension 01/17/2023 Kidney stone 01/17/2023 Rash 01/17/2023 Visual impairment 01/17/2023 Tubulovillous adenoma of colon 12/07/2022 Immunizations No known immunizations Family History Medical History Relation Name Comments No Known Problems Brother 2 Bill Crohn's disease Brother 3 Pipe No Known Problems Father Cancer Mother Bowel dysfunction Sister Relation Name Status Comments Brother 1 Wesley Brother 2 Bill Alive Brother 3 Pipe Alive Father Mother Sister Alive Social History Tobacco Use Types Packs/Day Years Used Date Smoking Tobacco: Never Smokeless Tobacco: Never Tobacco Cessation:Counseling Given: Not Answered Alcohol Use Standard Drinks/Week Comments Yes 4 (1 standard drink = 0.6 oz pur e alcohol) Housing Instability Answer Date Recorde d Are you worried or concerned that in the next two months you may not have stable housing that you own, rent or stay in as a part of a household? No 12/07/2022 Childcare Answer Date Recorded Childcare Unknown 03/13/2019 Employment Answer Date Recorded Employment Unknown 03/13/2019 Hunger Screening Answer Date Recorded Within the past 12 months we worried whether our food would run out before we got money to buy more. Never True 12/20/2022 Within the past 12 months th e food we bought just didn't last and we didn't have money to get more. Never True 12/20/2022 Sex and Gender Information Value Date Recorded Sex Assigned at Not on file Legal Sex Male 12:01 PM EDT Gender Identity Not on file Sexual Orientation Not on file Last Filed Vital Signs Vital Sign Reading Time Taken Comments Blood Pressure 161/88 01/17/2023 8:50 AM EDT Pulse 90 12/20/2022 10:41 AM EDT Temperature 36.7 C (98 F) 12/09/2022 8:28 AM EST Respiratory Rate 20 12/09/2022 8:28 AM EST Oxygen Saturation 93% 12/09/2022 8:28 AM EST Inhaled Oxygen Concentration - - Weight 76.7 kg (169 lb) 01/17/2023 8:50 AM EDT Height 175.3 cm (5' 9 ) 01/17/2023 8:50 AM EDT Body Mass Index 24.96 01/17/2023 8:50 AM EDT Plan of Treatment Health Maintenance Due Date Last Done Comments Depression Screening 1960 Tobacco Screening 1960 DTaP,Tdap and Td Vaccines (1 - Tdap) 1967 Zoster (Shingles) Vaccine (1 of 2) 1998 Fall Risk Screening 2013 COVID-19 Vaccine (2023-2 5 season) 2024 08/16/2021, 01/07/2021, 12/17/2020 Influenza Vaccine 06/02/2025 Goals Goal Patient Goal Type Associated Problems Recent Progress Patient-Stated? Author home General Yes Brigette Kirkland LSW Note: Evaluation of progress towards goal: transitioned to soft foods this a.m., blanca removed; pt said he would like to walk in the [place] Medical Devices Not on file Insurance [employer] MEDICARE Advance Directives * Full Code (Latest Code Status on File) Date Activated Date Inactivated Comments 12/07/2022 1:52 PM 12/09/2022 4:20 PM Care Teams Cocktail Lounge Manager Relationship Specialty Start Date End Date Patricia Fontanez MD [address] [place] [id number] PCP - General Family Medicine 11/08/22
--- OUTSIDE RECORDS SUMMARY | 2025-04-16 07:02 | XMS_ITS | Clinical Summary ---
Author Organization [facility] Address [address] [place], [place] [address] Care Team Providers Care Stem Sizer Name Role Phone Benji Calhoun MD Unavailable [phone] Patricia Fontanez MD Primary Care Provider [phone] Allergies No known active allergies Medications potassium citrate ER (UROCIT-K) 10 mEq (1,080 mg) TbER 10 mEq. 0 7 Active tamsulosin ER (FLOMAX) 0.4 mg cp24 0.4 mg. 0 7 Active losartan (COZAAR) 25 mg tablet Take 25 mg by mouth once daily. 0 7 Active multivitamin tablet Take 1 tablet by mouth once daily. Active docusate sodium (COLACE) 100 mg capsule Take 1 capsule by mouth twice daily. As long as taking opioids/narcot ics. Stop taking if loose bowel movements or diarrhea. 40 capsule 8 Active oxybutynin (DITROPAN) 5 mg tabletIndicatio ns:Bladder spasms Take 1 tablet by mouth three times daily. 30 tablet 8 Active phenazopyridine (PYRIDIUM, GERIDIUM) 100 mg tabletIndicatio ns:Bladder spasms Take 1 tablet by mouth three times daily as needed. 30 tablet 8 Active tamsulosin ER (FLOMAX) 0.4 mg cp24 Take 1 capsule by mouth once daily. 30 minutes after the same meal each day. 30 capsule 8 Active Active Problems Problem Noted Date Diagnosed Date Leukocytosis 10/21/2017 Calculus, kidney 09/12/2017 Calculus of ureter 09/12/2017 Right flank pain 09/12/2017 Essential hypertension 09/12/2017 Low vitamin D level 09/12/2017 Abnormal urinalysis 09/12/2017 Calculus of kidney 09/12/2017 Overview (09/12/2017): Added automatically from request for surgery [id number] Resolved Problems Problem Noted Date Diagnosed Date Resolved Date Family history of nephrolithiasis 09/12/2017 10/12/2017 Family history of hyperparathyroidism 09/12/2017 10/12/2017 Social History Tobacco Use Types Packs/Day Years Used Date Smoking Tobacco: Never Smokeless Tobacco: Never Alcohol Use Standard Drinks/Week Comments No 0 (1 standard drink = 0.6 oz pur e alcohol) Area Deprivation Index Answer Date Clive rded National Score (1-100), lower number is lower ri sk Not on file 09/08/2020 State Score (1-10), lower number is lower risk N ot on file 09/08/2020 Data from: https://www.neighborhoodatlas.medicine.[facility]/. Last address used for calculation Not on file 09/08/2020 Sex and Gender Information Value Date Recorded Sex Assigned at Not on file Legal Sex Male 1:30 PM EST Gender Identity Not on file Sexual Orientation Not on file Last Filed Vital Signs Vital Sign Reading Time Taken Comments Blood Pressure 154/78 10/22/2017 5:53 AM EST Pulse 84 10/22/2017 5:53 AM EST Temperature 36.9 C (98.5 F) 10/22/2017 5:53 AM EST Respiratory Rate 16 10/22/2017 5:53 AM EST Oxygen Saturation 95% 10/22/2017 5:53 AM EST Inhaled Oxygen Concentration - - Weight 79 kg (174 lb 2.6 oz) 10/22/2017 8:00 AM EST Height 177.8 cm (5' 10 ) 10/22/2017 6:00 AM EST Body Mass Index 24.99 10/22/2017 6:00 AM EST Plan of Treatment Health Maintenance Due Date Last Done Comments Anxiety Screening 1968 Depression Screening 1968 Hepatitis C Screening 1968 DTaP,Tdap,Td Vaccine (1 - Tdap) 1967 Pneumococcal Vaccine: 50+ (1 of 1 - PCV) 1998 Shingrix Vaccine (1 of 2) 1998 Diabetes Screening 10/22/2020 10/22/2017, 0 10/21/2017, 10/13/2017, Additional history exists RSV Vaccine (1 - 1-dose 75+ series) 2023 Covid-19 Vaccine (1 - 2023-2 5 season) 2024 Advance Directive Discussion 10/02/2024 Influenza Vaccine (#1) 2025 Procedures Procedure Name Priority Date/Time Associated Diagnosis Comments BASIC METABOLIC PANEL Routine 10/22/2017 4:38 AM EST from Last 3 Months or Most Recently Relevant to Health Maintenance Results * (ABNORMAL) BASIC METABOLIC PNL (10/22/2017 4:38 AM EST) Glucose 85 74 - 99 mg/dL 10/22/2017 7:10 AM EST [facility] Comment: The [place] Diabetes Association (ADA) provides guidance for cutoff values for fasting glucose and random glucose. The ADA defines fasting as no caloric intake for at least 8 hours. Fasting plasma glucose results between 100 to 125 mg/dL indicate increased risk for diabetes (prediabetes). Fasting plasma glucose results greater than or equal to 126 mg/dL meet the criteria for diagnosis of diabetes. In the absence of unequivocal hyperglycemia, results should be confirmed by repeat testing. In a patient with classic symptoms of hyperglycemia or hyperglycemic crisis, random plasma glucose results greater than or equal to 200 mg/dL meet the criteria for diagnosis of diabetes. Reference: Standards of Medical Care in Diabetes 2016, [place] Diabetes Association. Diabetes Care. 2016.39(Suppl 1). BUN 5(L) 9 - 24 mg/dL 10/22/2017 7:10 AM EST [facility] Creatinine 0.98 0.73 - 1.22 mg/dL 10/22/2017 7:10 AM EST [facility] Sodium 140 136 - 144 mmol/L 10/22/2017 7:10 AM EST [facility] Potassium 3.5(L) 3.7 - 5.1 mmol/L 10/22/2017 7:10 AM EST [facility] Chloride 102 97 - 105 mmol/L 10/22/2017 7:10 AM EST [facility] CO2 26 22 - 30 mmol/L 10/22/2017 7:10 AM EST [facility] Anion Gap 12 9 - 18 mmol/L 10/22/2017 7:10 AM EST [facility] Calcium 8.2(L) 8.5 - 10.2 mg/dL 10/22/2017 7:10 AM EST [facility] eGFR- >60 10/22/2017 7:10 AM EST [facility] eGFR-All Other Races >60 . 10/22/2017 7:10 AM [facility] Comment: eGFR (Estimated GFR) Units of measure: mL/min/1.73 meters squared eGFR is derived from the reexpressed MDRD Study equation using the following parameters: serum creatinine, age, gender and race. The creatinine assay has been calibrated to be traceable to IDMS. An eGFR <60 mL/min/1.73m2 for >3 months is consistent with chronic kidney disease. Refer to KDOQI guidelines for clinical interpretation. In patients with unstable renal function, e.g. those with acute kidney injury, the eGFR may not accurately reflect actual GFR. Blood specimen (specimen) BLOOD SPECIMEN / Unknown 10/22/2017 4:38 AM EST 10/22/2017 4:39 AM EST us Kip Hagan MD LABORATORY Final Result [facility] [address] [place] [address] from Last 3 Months or Most Recently Relevant to Health Maintenance Insurance [employer] PPO Care Teams Stem Sizer Relationship Specialty Start Date End Date Patricia Fontanez MD [address] [place] [address] PCP - General Family Medicine 10/05/17 Benji Calhoun MD [address] [place] [address] Referring Urology 09/11/17
--- OUTSIDE RECORDS SUMMARY | 2025-04-16 07:02 | XMS_ITS | Encounter Summary ---
Author Name [facility] Organization [facility] Address [address] [place] [address] Care Team Providers Care Wetland Scientist Name Role Phone VIOLETA GOLDBERG Primary Care [...] Somers's Name Patient's Relationship to Policy Somers AETNA [facility] ([facility] MEDICARE ADVANTAGE [facility] ([facility]) Oct 02, 2020 [id number] [place] [id number] [phone] [place]IENT AETNA [facility] ([facility]) MEDICARE ADVANTAGE [facility] ([facility]) Oct 02, 2020 [id number] [place] [id number] [place] [facility] BENEFITS PREFERRED PROVIDER ORGANIZAT ION (PPO) WHIRL POOL CORPO RATIO Oct 02, 2009 WHIRL [id number] [id number] MIKALA [place] SPOUSE MEDICARE ([facility]) MEDICARE () PART A Aug 02, 2013 PART A [id number] [phone] [place] ([facility]) MEDICARE () PART B Aug 02, 2013 PART B [id number] [phone] [place] (WNR) MEDICARE (M) PART B Aug 02, 2013 PART B [id number] [place] Selected Encounter This section includes the [facility] record at [facility] for the Encounter. Date/Time Encounter Type Encounter Description Reason Pro vider Source IHE Encounter Template Text not used by [facility]
--- OUTSIDE RECORDS SUMMARY | 2025-04-16 07:02 | XMS_ITS | Encounter Summary ---
Author Organization [facility] Address [id number] [address] [place] [address] Care Team Providers Care Tool And Die Maker Level Five Name Role Phone Patricia Fontanez MD Primary Care Provider [phone] Encounter Details Date Type Department Care Team (Late st Contact Info) Description 11/04/2022 Orders Only [facility] [address] [place] [address] External, Scanning Provider Pain (Primary Dx) Social History Tobacco Use Types Packs/Day Years Used Date Smoking Tobacco: Never Assessed Childcare Answer Date Recorded Childcare Unknown 03/13/2019 Employment Answer Date Recorded Employment Unknown 03/13/2019 Sex and Gender Information Value Date Recorded Sex Assigned at Not on file Legal Sex Male 12:01 PM EDT Gender Identity Not on file Sexual Orientation Not on file documented as of this encounter Plan of Treatment Not on file documented as of this encounter Results * CT abdomen and pelvis with contrast (11/03/2022 8:30 AM EST) us Scanning Provider External IMG CT ORDERABLES Fin al Result MANUALLY TRANSCRIBED RESULTS documented in this encounter Visit Diagnoses Diagnosis Pain- Primary Generalized pain documented in this encounter Care Teams Tool And Die Maker Level Five Relationship Specialty Start Date End Date Patricia Fontanez MD [address] [place] [address] PCP - General Family Medicine 11/08/22 documented as of this encounter
--- OUTSIDE RECORDS SUMMARY | 2025-04-16 07:02 | XMS_ITS | Encounter Summary ---
Author Organization [employer] Address [facility]-[id number] [address] [place] [address] Care Team Providers Care Revenue Field Auditor Name Role Phone Patricia Fontanez MD Primary Care Provider [phone] Encounter Details Date Type Department Care Team (Late st Contact Info) Description 12/06/2022 Telephone [facility] [address] [place] [id number] Darcy Pinzon RMA Social History Tobacco Use Types Packs/Day Years Used Date Smoking Tobacco: Never Smokeless Tobacco: Never Alcohol Use Standard Drinks/Week Comments Yes 4 [...] on file Sexual Orientation Not on file COVID-19 Exposure Response Date Recorded In the last month, have you been in contact with someone who was confirmed or suspected to have Coronavirus / COVID-19? No / Unsure 12/07/2022 6:00 AM EST documented as of this encounter Functional Status documented as of this encounter Miscellaneous Notes * Telephone Encounter - CRISTIAN Fierro - 12/06/2022 2:10 PM EST Darrell's surgery is actually tomorrow - December 07, 2022 documented in this encounter Plan of Treatment Not on file documented as of this encounter Goals Goal Patient Goal Type Associated Problems Recent Progress Patient-Stated? Author home General Yes Brigette Kirkland LSW Note: Evaluation of progress towards goal: transitioned to soft foods this a.m., rios removed; pt said he would like to walk in the [place] documented as of this encounter Visit Diagnoses Not on filedocumented in this encounter Care Teams Revenue Field Auditor Relationship Specialty Start Date End Date Patricia Fontanez MD [address] [place] [address] PCP - General Family Medicine 11/08/22 documented as of this encounter
--- OUTSIDE RECORDS SUMMARY | 2025-04-16 07:02 | XMS_ITS | Clinical Summary ---
Author Organization [facility] Address [address] [place] [address] Care Team Providers Care Manager Integrated Name Role Phone Patricia Fontanez MD Primary Care Provider [phone] Allergies No known active allergies Medications losartan (Cozaar) 25 mg tablet Take 25 mg by mouth in the morning. Patient taking 2 25mg tablets until he finish what he has on hand. 2 Active multivitamin tablet Take 1 tablet by mouth in the morning. Active tamsulosin (Flomax) 0.4 mg 24 hr capsule Take 0.4 mg by mouth 2 times daily. 7 Active losartan (Cozaar) 50 mg tabletIndication s:Benign hypertensive heart disease without congestive heart failure Take 1 tablet (50 mg) by mouth once daily as directed. 90 tablet 3 5 01/14/20 26 Active Additional Information Patient taking differently:50 mg oral Once Daily,Will start 50 mg when he is finished with his bottle of 25mg, Reported on 02/14/2025 TURMERIC ORAL Take by mouth. A ctive psyllium (Metamucil) 0.4 gram capsule Take 5 capsules by mouth if needed. 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 Weak 11/08/2024 Nonrheumatic mitral valve regurgitation 11/08/19 25 Pure hypercholesterolemia 11/08/2024 Pulmonary hypertension 11/08/2024 Arthritis 01/17/2023 Diverticulitis of colon 01/17/2023 Rash 01/17/2023 Visual impairment 01/17/2023 Tubulovillous adenoma of colon 12/07/2022 Diverticulitis 10/19/2022 Overview (10/19/2022): Added automatically from request for surgery [id number] Leukocytosis 10/21/2017 Abnormal urinalysis 09/12/2017 Calculus of kidney 09/12/2017 Overview (11/08/2024): Added automatically from request for surgery [id number] Calculus of ureter 09/12/2017 Essential hypertension 09/12/2017 Low vitamin D level 09/12/2017 Right flank pain 09/12/2017 Resolved Problems Problem Noted Date Diagnosed Date Resolved Date BMI 27.0-27.9,adult 11/08/2024 02/15/20 25 Encounters Date Type Department Care Team Description 02/14/2025 10:00 AM EDT Office Visit [address] [address] Mala Plasencia MD Essential hypertension (Primary Dx); Nonrheumatic mitral valve regurgitation; Pulmonary hypertension (CMS/HCC) 02/12/2025 Orders Only [facility] [address] [place] [phone] Viktor Dsouza MD 02/03/2025 Telephone [facility]iology [facility] [address] [place] [address] Mala Plasencia MD 01/31/2025 Refill [place] [address] [place] [address] Sheryl Mayo MA 01/31/2025 Abstract [facility] Heart [facility] Vascular Cardiothoracic Surgery [place] [address] [place] [address] Sharyn Mcduffie RN 01/31/2025 Orders Only [facility] Cardiothoracic Surgery [place] [address] [place] [address] Sharyn Mcduffie RN Pre-op testing; Bruit 01/31/2025 Orders Only [facility] Cardiothoracic Surgery [place] [address] [place] [address] Sharyn Mcduffie RN Pre-op testing; Bruit 01/30/2025 1:30 PM EDT Consult [facility] Vascular Cardiothoracic Surgery [place] [address] [place] [address] Mervin Lara, ROGER Essential hypertension (Primary Dx); Nonrheumatic mitral valve regurgitation; Benign prostatic hyperplasia, unspecified whether lower urinary tract symptoms present; Pulmonary hypertension (CMS/HCC) 01/30/2025 - 01/30/2025 11:59 PM EDT Hospital Encounter [facility] Radiology [facility] [address] [place] [address] Discharge Disposition: Home or Self Care () 01/21/2025 Telephone [facility] Vascular Cardiothoracic Surgery [place] [address] [place] [address] Young Dominguez MA Referral from Last 3 Months Family History Medical History Relation Name Comments Accidental Brother Cancer Mother Rosy Esquivel Diverticulitis Mother Rosy Esquivel Relation Name Status Comments Brother Father Mother Rosy Esquivel Sister Alive Social History Tobacco Use Types Packs/Day Years Used Date Smoking Tobacco: Never Smokeless Tobacco: Never Alcohol Use Standard Drinks/Week Comments Yes 3 (1 standard drink = 0.6 oz pur e alcohol) occasional PHQ-2 Answer Date Recorded Patient Health Questionnaire-2 Score 0 01/30/2025 [place] Safety & Environment Answer Date Rec orded Fear of Current or Ex-Partner Not on file Emotionally Abused Not on file 11/23/2023 Physically Abused Not on file 11/23/2023 Sexually Abused Not on file 11/23/2023 Physically or Sexually Abused Not on file Sex and Gender Information Value Date Recorded Sex Assigned at Not on file Legal Sex Male 11:55 AM EST Gender Identity Not on file Sexual Orientation Not on file Last Filed Vital Signs Vital Sign Reading Time Taken Comments Blood Pressure 143/80 02/14/2025 9:54 AM EDT Pulse 88 02/14/2025 9:54 AM EDT Temperature 36.9 C (98.4 F) 10/18/2022 12:56 PM EST Respiratory Rate 15 12/20/2024 12:00 PM EDT Oxygen Saturation 95% 02/14/2025 9:54 AM EDT Inhaled Oxygen Concentration - - Weight 78 kg (172 lb) 02/14/2025 9:54 AM EDT Height 177.8 cm (5' 10 ) 02/14/2025 9:54 AM EDT Body Mass Index 24.68 02/14/2025 9:54 AM EDT Plan of Treatment Upcoming Encounters Date Type Department Care Team (Late st Contact Info) Description 08/05/2025 1:00 PM EST Office Visit [facility] [address] [place] [phone] Harsh Torres MD [address] [place] [address] Health Maintenance Due Date Last Done Comments Medicare Annual Wellness (AWV) 1950 Pneumococcal Vaccine: 50+ Years (1 of 2 - PCV) 1967 Adult Tetanus 1970 Zoster Vaccines (1 of 2) 1998 COVID-19 Vaccine (4 - 2023-2 5 season) 2024 08/16/2021, 01/07/2021, 12/17/2020 Influenza Vaccine (#1) 2025 Depression Screening 01/30/2026 01/30/2025 Fall Risk Screening 01/30/2026 01/30/2025 Colonoscopy Discontinued 08/31/2022 Colorectal Cancer Screening Discontinued CT Colonography Discontinued FIT-DNA Discontinued FIT Discontinued FOBT Discontinued HIB Vaccines Aged Out No longer eligi ble based on patient's age to complete this topic HPV Vaccines Aged Out No longer eligi ble based on patient's age to complete this topic IPV Vaccines Aged Out No longer eligi ble based on patient's age to complete this topic Meningococcal B Vaccine Aged Out No l onger eligible based on patient's age to complete this topic Meningococcal Vaccine Aged Out No felipe mary ellen eligible based on patient's age to complete this topic Rotavirus Vaccines Aged Out No longer eligible based on patient's age to complete this topic Sigmoidoscopy Discontinued Procedures Procedure Name Priority Date/Time Associated Diagnosis Comments VASC US CAROTID ARTERY DUPLEX BILATERAL Routine 02/12/2025 9:[address] TRANSFER OF OUTSIDE FILMS Routine 01/30/2025 12:00 AM EDT from Last 3 Months Results * Vascular US carotid artery duplex bilateral (02/12/2025 9:47 AM EDT) Anatomical Region Laterality Modality Neck Ultrasound Viktor Dsouza MD IMG CV VASCULAR PROCEDURES Fin al Result * CT transfer of outside films (01/30/2025 12:00 AM EDT) Narrative IMAGING - 01/30/2025 11:01 AM EDT This order has been auto-finalized and does not contain a result. Harsh Torres MD IMG CT PROCEDURES Final Result Performing Organization Address City/State/[facility] [[email or web address]] Co de Phone Number IMAGING from Last 3 Months Insurance [employer] MEDICARE ADVANTAGE Care Teams Manager Integrated Relationship Specialty Start Date End Date Patricia Fontanez MD [address] [facility]A PCP - General 11/08/24
--- OUTSIDE RECORDS SUMMARY | 2025-04-16 07:03 | XMS_ITS | CCD ---
Author Organization [facility] CliniSyme Care Team Providers Care Chemical Mixer Name Role Phone SCHROEDER, FELICIANO Unavailable Unavailable RICE, CLEVELAND W Unavailable Unavailable RICE, CLEVELAND W Unavailable Unavailable SCHROEDER, FELICIANO Unavailable Unavailable SCHROEDER, FELICIANO Unavailable Unavailable SCHROEDER, FELICIANO Unavailable Unavailable SCHROEDER, FELICIANO Unavailable Unavailable SCHROEDER, FELICIANO Unavailable Unavailable ALEXA GARCIA Unavailable Unavailable SCHROEDER, FELICIANO Unavailable Unavailable ABIGAIL SANCHEZ Primary Care Physician [phone] Daniel, Abigail Unavailable DANIEL, DR ABIGAIL Trejo Admitting Unavailable SANCHEZ, DR ABIGAIL Trejo Attending Unavailable SANCHEZ, DR ABIGAIL Trejo Primary Care Unavailable SANCHEZ, DR ABIGAIL Trejo Consulting Unavailable GARCIA, DR DENNY Admitting Unavailable GARCIA, DR DENNY Attending Unavailable SANCHEZ, DR ABIGAIL Trejo Primary Care Unavailable PIERSON, DR OLIVER Maguire Consulting Unavailable GARCIA, DR DENNY Consulting Unavailable COOK, DR ROCK Pollock Admitting Unavailable COOK, DR ROCK Pollock Attending Unavailable SANCHEZ, DR ABIGAIL Trejo Primary Care Unavailable COOK, DR ROKC Pollock Consulting Unavailable NILL ., DR BARROSO [...] Unavailable Rock LUJAN Attending Unavailable JOHN PLASENCIA Referring Unavailable ASHER TORRES Referring Unavailable SANJU HOWARD Attending UnavailJOHN Diaz Referring Unavailable JOHN PLASENCIA Attending Unavailable JOHN PLASENCIA Attending Unavailable JOHN PLASENCIA Attending Unavailable Medications Current [...] BID, # 14 tab(s), Refills(s) 0, Pharmacy: [facility], 177, cm, 02/15/23 11:48:00 EDT, Height/Length [...] BID, # 180 cap(s), Refills(s) 3, Pharmacy: [facility], 177, cm, 08/23/23 8:44:00 EST, Height/Length Dosing, 78.9, kg, 08/23/23 8:44:00 EST, Weight Dosing Start Date: 01/09/24 Status: Ordered Start: 01-12-2023 take 1 capsule by [facility] twice daily tamsulosin 0.4 mg Cap 0.4 mg = 1 cap(s), Oral, BID, # 180 cap(s), Refills(s) 3, Pharmacy: [facility], 177, cm, 07/26/22 13:27:00 EDT, Height/Length Dosing, 87.5, kg, 07/26/22 13:27:00 EDT, Weight Dosing Start Date: 01/12/23 Status: Ordered Start: 01-05-2022 take 1 capsule by [facility] twice daily tamsulosin 0.4 mg Cap 0.4 mg = 1 cap(s), Oral, BID, # 180 cap(s), Refills(s) 3, Pharmacy: [facility], 177, cm, 10/25/21 11:30:00 EST, Height/Length Dosing, 78.9, kg, 10/25/21 11:30:00 EST, Weight Dosing Start Date: 01/05/22 Status: Ordered take 1 capsule by [facility] every twenty-four hours Tamsulosin HCl 0.4 MG [...] 07/18/22 Status: Ordered take 1 tablet by [facility] every twelve hours Losartan Potassium 25 [...] Resolved: 03-09-2019 12-18-2019 Episodic Heart valve disorders (4 sources) Nonrheumatic mitral (valve) insufficiency; 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] Onset: 02-06-2025 Chronic Hyperplasia of prostate (17 sources) Benign [...] 09-07-2022 Episodic Other aftercare (1 source) Other pen[facility]entiary (current) drug therapy; Translations: [OTH [facility] CURRENT DRUG THERAPY] Onset: 09-07-2022 Episodic Other [...] Value Interpretation Reference Range Facility Office Visiton 02-14-2025 Follow-up visit [id number] Anna Nelson 1950 M Date Provider Department Center 02/14/2025 JOHN RIOS [facility] Family History Problem Relation Age of Onset Diverticulitis Mother Cancer Mother Accidental Brother Family Status - Relation Status Age at Mother Father Sister Alive Brother Level of Service:48376 UT OFFICE/OUTPATIENT ESTABLISHED LOW MDM 20 MIN Reason for Visit and Comments: Follow-up [083789] [facility] Orders Onlyon 02-12-2025 Orders Only [id number] Anna Nelson 1950 Date Provider Department Center 02/12/2025 JULIUS GARCIA HVCTS [facility] Family History Problem Relation Age of Onset Diverticulitis Mother Cancer Mother Accidental Brother Family Status - Relation Status Age at Mother Father Sister Alive Brother [facility] 36on 02-04-2025 36 Detailed voicemail l eft for patient. Melanie Vickers MA [facility] [address] Plasencia: Ariana I put in a request for right and left heart catheterization on this patient per CT surgery request. Please inform the patient to expect a call from the Manager Pulmonary to schedule it [facility] 36on 02-03-2025 36 Patient was seen by CT surgery for possible mitral valve repair. CT surgery team reached out to me requesting right and left heart catheterization before proceeding with surgery. Will go ahead and schedule it and inform the patient [facility] 36on 01-31-2025 36 John Plasencia MD Geovanna dimitris Mayo MA BMP looks good after increasing losartan dose. Left message for patient advising him of his blood test results. [facility] Abstracton 01-31-2025 Abstract [id number] Anna Nelson n L 1950 M Date Provider Department Center 01/31/2025 2020-FLOYD MCDUFFIE [facility] HeartVAS Family History Problem Relation Age of Onset Diverticulitis Mother Cancer Mother Accidental Brother Family Status - Relation Status Age at Mother Father Sister Alive Brother [facility] Consulton 01-30-2025 Consult [id number] Anna Nelson n L 1950 M [facility] Provider Department Center 01/30/2025 [id number] HOWARD JHTS [place] [facility] Family History Problem Relation Age of Onset Diverticulitis Mother Cancer Mother Accidental Brother Family Status - Relation Status Age at Mother Father Sister Alive Brother Level of Service:08155 UT OFFICE/OP CONSLTJ NEW/EST PT HIGH MDM 55 MINUTES Reason for Visit and Comments: Consult [484] - Mitral valve [facility] 36on 01-22-2025 36 01/22/25 2nd attempt to reach patient to schedule no answer lmom to cb SR [facility] 36on 01-21-2025 36 Call placed to patie nt to schedule appointment no answer left message to call back. [facility] Telephoneon 01-21-2025 Telephone [id number] Anna Nelson geoffrey L 1950 M Provider Department Center 01/21/2025 [id number] THOMAS [facility] Heart[facility]AS Family History Problem Relation Age of Onset Diverticulitis Mother Cancer Mother Accidental Brother Family Status - Relation Status Age at Mother Father Sister Alive Brother Reason for Visit and Comments: Referral [825] [facility] Office Visiton 01-13-2025 Follow-up visit [id number] OmarAnna n Emmanuelle 1950 [facility] Provider Department Center 01/13/2025 [id number] QURESHI BH ENZO Leal Family History Problem Relation Age of Onset Diverticulitis Mother Cancer Mother Accidental Brother Family Status - Relation Status Age at Mother Father Sister Alive Brother Level of Service:77374 UT OFFICE/OUTPATIENT ESTABLISHED MOD MDM 30 MIN Reason for Visit and Comments: Follow-up [299629] - Follow up labs and ALEXEI Hypertension [153042] Normal [facility] ANESon 12-20-2024 ANES Attestation signed by Radha [...] 12/20/24 1030 Procedure: TRANSESOPHAGEAL ECHO (ALEXEI) Location: [facility] Vascular Lab Clinical information reviewed: Allergies Meds Physical Exam Airway Mallampati: III Cardiovascular Rhythm: regular Rate: normal (+) murmur Dental Pulmonary (-) decreased breath sounds Abdominal (-) obese Anesthesia Plan Additional Equipment Requests Normal [facility] HPon 12-20-2024 HP Attestation signed by Radha [...] hospital admission) X-ray chest 2 views 11/23/2022 [id number] Final Review of Systems All other systems [...] evaluation of MR. Cesar Agarwal MD PGY-5 Transfer Station Attendant [facility] Pager # [phone] [facility] NURSNOTEon 12-20-2024 NURSNOTE Bedside swallow [...] any questions or concerns if pt verbalized. [facility] Telephoneon 12-13-2024 Telephone [id number] Anna Nelson 1950 M Date Provider Department Center 12/13/2024 ARMIN MORE [facility] VASC LAB [place] [facility] Family History Problem Relation Age of Onset Diverticulitis Mother Cancer Mother Family Status - Relation Status Age at Mother [facility] 36on 11-15-2024 36 Regarding lab result s from 11/13/2024: MD Eneida Simeon MA Lipids look very good. Continue current diet and exercise. LM on patient's VM. [facility] Office Visiton 11-08-2024 Follow-up visit [id number] Anna Nelson 1950 M Date Provider Department Center 11/08/2024 [id number] PLASENCIA ENZO Leal Family History Problem Relation Age of Onset Diverticulitis Mother Cancer Mother Family Status - Relation Status Age at Mother Level of Service:79663 UT OFFICE/OUTPATIENT NEW MODERATE MDM 45 MINUTES Reason for Visit and Comments: Hypertension [894540] Heart Murmur [124] - Had EKG and echo a few weeks ago. He denies chest pain, SOB, and palpitations. Normal [facility] Ambulatory Visit Summaryon 0 10-16-2024 Ambulatory Visit [...] LUJAN MD Where: [facility] [address], [address] [place] [address]- You Need to Schedule the Following Appointments Follow Up with Rock LUJAN MD, URL When: Where: [address] [facility] [place] [address]- Medications What How Much When Instructions Unchanged [...] that yo (more content not included)... Normal [facility] Urology Office/Clinic Noteon 10-16-2024 Urology Office/Clinic Note [...] with voice recognition artificial intelligence software, specifically [employer], [employer] and or [employer]. Substitutions may have occurred due to the [...] Pollock, URL [address] [place] [id number]- Additional Instructions: 6 mos w/ PSA free [...] (02/11/2016), Cys (more content not included)... Normal [facility] Comment on above: Result Comment: Elec tronically Signed By: Rock LUJAN MD\.br\Date and Time Signed: 10/16/24 08:34 EST\.br\Electronically Co-Signed By: Rianna March\.br\Date and Time Co-Signed: 10/16/24 08:31 EST Lab Reportson 03-21-2024 Lab Reports [id number] [facility] Screenson 03-21-2024 Screens [id number] [facility] Ambulatory Visit Summaryon 0 03-20-2024 Ambulatory [...] Rock LUJAN MD Where: [facility] Patient Educationon 03-20-20 Patient Education Urology [...] Follow these instructions at home: ? Take odba-tjs-wogpgua and prescription medicines only as told by [...] the medicine (more content not included)... Normal [facility] Urology Office/Clinic Noteon 03-20-2024 [...] with voice recognition artificial intelligence software, specifically [employer], [employer] and or [employer]. Substitutions may have occurred due to the [...] Contact Information KARLEE GA, Rock Pollock, URL [address] [place] [address] [place] [address]- Additional Instructions: 6 mos w/ PSA free & total Patient Education Benign Prostatic Hyperplasia Rianna Sapp, personally scribed for Dr. Lujan on 03/20/2024 [...] bilateral ingui (more content not included)... Normal [facility] Comment on above: Result Comment: Elec tronically Signed By: Rock LUJAN MD\.br\Date and Time Signed: 03/20/24 09:03 EDT\.br\Electronically Co-Signed By: Rianna March.br\Date and Time Co-Signed: 03/20/24 09:00 EDT PSA, FREE AND TOTAL RATIOon 02-09-2023 % Free PSA 19.7 % Normal [facility] Comment on above: Result Comment: [...] men. Performed By: #### P SAFREE #### [facility] [address] [place] [address] Dr. Vaishali Dorsey Prostate specific Ag [Mass/Vol] 7.6 ng/mL Critically high 0.0-4.0 [facility] Comment on above: Result Comment: Dakota MCCLAINIA methodology. . According to the [employer], Serum PSA should decrease and [...] disease. Performed By: #### P SAFREE #### [facility] [address] [place] [address] Dr. Vaishali Dorsey PSA, Free 1.50 ng/mL Normal N/A [facility] Comment on above: Result Comment: Dakota PEGUERO methodology. Performed By: #### P SAFREE #### [facility] [address] [place] [address] Dr. Vaishali Dorsey CBC AUTO DIFFon 11-03-2022 BASO # 0.1 103/ul Normal 0.0-0.1 [facility] Comment on above: Performed By: #### C BC #### [facility] [address] [place] [address] Dr. Vaishali Dorsey Basophils/100 WBC (Bld) 0.6 % Normal 0.2-2.0 [facility] Comment on above: Performed By: #### C BC #### [facility] [address] [place] [address] Dr. Vaishali Dorsey EO # 0.5 103/ul Normal 0.0-0.7 The [facility] Comment on above: Performed By: #### C BC #### [facility] [address] [place] [address] Dr. Vaishali Dorsey Eosinophils/100 WBC (Bld) 4.4 % Normal 0.9-7.0 [facility] Comment on above: Performed By: #### C BC #### [facility] [address] [place] [address] Dr. Vaishali Dorsey Erythrocyte distribution width (RBC) [Ratio] 17.2 % Critically high 11.0-15.0 [facility] Comment on above: Performed By: #### C BC #### [facility] [address] [place] [address] Dr. Vaishali Dorsey Hematocrit (Bld) [Volume fraction] 39.6 % Critically low 42.0-54.0 [facility] Comment on above: Performed By: #### C BC #### [facility] [address] [place] [address] Dr. Vaishali Dorsey Hemoglobin (Bld) [Mass/Vol] 11.8 g/dL Critically low 14.0-18.0 [facility] Comment on above: Performed By: #### C BC #### [facility] [address] [place] [address] Dr. Vaishali Dorsey IG # 0.03 10e3/ul Normal 0.00-0.03 [facility] Comment on above: Performed By: #### C BC #### [facility] [address] [place] [address] Dr. Vaishali Dorsey IG % 0.3 % Normal 0.0-0.5 [facility] Comment on above: Performed By: #### C BC #### [facility] [address] [place] [address] Dr. Vaishali Dorsey LYMPH # 4.1 103/ul Critically high 1.2-3.8 [facility] Comment on above: Performed By: #### C BC #### [facility] [address] [place] [address] Dr. Vaishali Dorsey Lymphocytes/100 WBC (Bld) 34.2 % Normal 20.5-60.0 [facility] Comment on above: Performed By: #### C BC #### [facility] [address] [place] [address] Dr. Vaishali Dorsey MANUAL DIFF REQ NO Normal [facility] Comment on above: Performed By: #### C BC #### [facility] [address] [place] [address] Dr. Vaishali Dorsey MCH (RBC) [Entitic mass] 24.5 pg Critically low 25.9-34.0 [facility] Comment on above: Performed By: #### C BC #### [facility] [address] [place] [address] Dr. Vaishali Dorsey MCHC (RBC) [Mass/Vol] 29.8 g/dL Critically low 29.9-35.2 [facility] Comment on above: Performed By: #### C BC #### [facility] [address] [place] [address] Dr. Vaishali Dorsey MCV (RBC) [Entitic vol] 82.2 fL Normal 80.0-94.0 [facility] Comment on above: Performed By: #### C BC #### [facility] [address] [place] [address] Dr. Vaishali Dorsey MONO # 1.1 103/ul Critically high 0.3-0.8 [facility] Comment on above: Performed By: #### C BC #### [facility] [address] [place] [address] Dr. Vaishali Dorsey Monocytes/100 WBC (Bld) 9.1 % Normal 1.7-12.0 [facility] Comment on above: Performed By: #### C BC #### [facility] [address] [place] [address] Dr. Vaishali Dorsey NEUT # 6.1 103/ul Normal 1.4-6.5 [facility] Comment on above: Performed By: #### C BC #### [facility] [address] [place] [address] Dr. Vaishali Dorsey Neutrophils/100 WBC (Bld) 51.4 % Normal 43.0-75.0 [facility] Comment on above: Performed By: #### C BC #### [facility] [address] [place] [address] Dr. Vaishali Dorsey Platelet mean volume (Bld) [Entitic vol] 10.3 fL Normal 9.5-13.5 [facility] Comment on above: Performed By: #### C BC #### [facility] [address] [place], [place] [address] Dr. Vaishali Dorsey PLT 231 103/ul Normal 150-450 [facility] Comment on above: Performed By: #### C BC #### [facility] [address] [place] [address] [address] Vaishali Dorsey RBC 4.82 106/ul Normal 4.70-6.10 [facility] Comment on above: Performed By: #### C BC #### [facility] [address] [place] [id number] [address] Vaishali Dorsey WBC 11.9 103/ul Critically high 4.0-11.0 [facility] Comment on above: Performed By: #### C BC #### [facility] [address] [place] [address] ABD/PELV W CONon [...] OLIVER CHAVEZ Date: 2022-11-03 13:53 Normal [facility] PROF CHEM 8 (BAS METB)on Anion gap [Moles/Vol] 10.3 mmol/L Normal [facility] Comment on above: Performed By: #### B MP ####[facility] [address] [place] [address]Dr. Vaishali Dorsey Calcium [Mass/Vol] 9.2 mg/dL Normal 8.5-10.1 [facility] Comment on above: Performed By: #### B MP ####[facility] [address] [place] [address]Dr. Vaishali Dorsey Chloride [Moles/Vol] 105 mmol/L Normal 98-107 [facility] Comment on above: Performed By: #### B MP ####[facility] [address] [place] [address]Dr. Vaishali Dorsey CO2 [Moles/Vol] 32.4 mmol/L Critically high 21.0-32.0 The [facility] Comment on above: Performed By: #### B MP ####[facility] [address] [place] [address]Dr. Vaishali Dorsey Creatinine [Mass/Vol] 1.00 mg/dL Normal 0.70-1.30 [facility] Comment on above: Performed By: #### B MP ####[facility] [address] [place] [address]Dr. Vaishali Dorsey EGFR-AF BOLIVIAN >60 Normal >=60 [facility] Comment on above: Performed By: #### B MP ####[facility] [address] [place] [address]Dr. Vaishali Dorsey EGFR-NON AF BOLIVIAN >60 Normal >=60 [facility] Comment on above: Performed By: #### B MP ####[facility] [address] [place] [address]Dr. Vaishali Dorsey Glucose [Mass/Vol] 101 mg/dL Normal 74-106 [facility] Comment on above: Performed By: #### B MP ####[facility] [address] [place], [place] [address]DrBraden Dorsey Potassium [Moles/Vol] 5.7 mmol/L Critically high 3.5-5.1 [facility] Comment on above: Performed By: #### B MP ####[facility] [address] [place] [address]DrBraden Dorsey Sodium [Moles/Vol] 142 mmol/L Normal 136-145 [facility] Comment on above: Performed By: #### B MP ####[facility] [address] [place] [address]Dr. Vaishali Dorsey Urea nitrogen [Mass/Vol] 13.0 mg/dL Normal 7.0-18.0 [facility] Comment on above: Performed By: #### B MP ####[facility] [address] [place] [address]DrBraden Dorsey Urea nitrogen/Creatinin e [Mass ratio] 13.0 mg/mg Normal [facility] Comment on above: Performed By: #### B MP ####[facility] [address] [place] [address]Dr. Vaishali Dorsey PROTIMEon 11-03-2022 INR Coag (PPP) [Relative time] 0.96 {INR} Normal [facility] Comment on above: Performed By: #### P T #### [facility] [address] [place] [address] Dr. Vaishali Dorsey INR GUIDELINES SEE BELOW Normal [facility] Comment on above: Result Comment: JOSEF RED INR: 2.0 - 3.0 CONDITIONS NOT LISTED BELOW 2.5 - 3.5 FOR PROSTHETIC HEART VALVE REPLACEMENT 2.5 - 3.5 RECURRENT THROMBOSIS Performed By: #### P T #### [facility] [address] [place] [address] [address] Vaishali Dorsey PT Coag (PPP) [Time] 10.2 s Normal 9.0-11.6 [facility] Comment on above: Performed By: #### P T #### [facility] [address] [place] [address] [address] Vaishali Dorsey [facility] SARS-CoV-2 (COVID-19) RNA NICK+probe Ql (Unsp spec) Not detected Normal NOT DETECTED [facility] Comment on above: Result Comment: [...] for this test is supported by the Ranger of Health and Human Service's declaration that [...] longer be used). Performed By: #### C VDTB #### [facility] [address] [place] [address] Dr. Vaishali Dorsey CBC AUTO DIFFon 06-28-2022 BASO # 0.1 103/ul Normal 0.0-0.1 [facility] Comment on above: Performed By: #### C BC #### [facility] [address] [place] [address] Dr. Vaishali Dorsey Basophils/100 WBC (Bld) 0.6 % Normal 0.2-2.0 [facility] Comment on above: Performed By: #### C BC #### [facility] [address] [place] [address] Dr. Vaishali Dorsey EO # 0.3 103/ul Normal 0.0-0.7 [facility] Comment on above: Performed By: #### C BC #### [facility] [address] [place] [address] Dr. Vaishali Dorsey Eosinophils/100 WBC (Bld) 2.0 % Normal 0.9-7.0 [facility] Comment on above: Performed By: #### C BC #### [facility] [address] [place] [address] Dr. Vaishali Dorsey Erythrocyte distribution width (RBC) [Ratio] 16.4 % Critically high 11.0-15.0 [facility] Comment on above: Performed By: #### C BC #### [facility] [address] [place] [address] Dr. Vaishali Dorsey Hematocrit (Bld) [Volume fraction] 38.0 % Critically low 42.0-54.0 [facility] Comment on above: Performed By: #### C BC #### [facility] [address] [place] [address] Dr. Vaishali Dorsey Hemoglobin (Bld) [Mass/Vol] 11.8 g/dL Critically low 14.0-18.0 [facility] Comment on above: Performed By: #### C BC #### [facility] [address] [place] [address] Dr. Vaishali Dorsey IG # 0.04 10e3/ul Critically high 0.00-0.03 [facility] Comment on above: Performed By: #### C BC #### [facility] [address] [place] [address] Dr. Vaishali Dorsey IG % 0.3 % Normal 0.0-0.5 [facility] Comment on above: Performed By: #### C BC #### [facility] [address] [place] [address] Dr. Vaishali Dorsey LYMPH # 3.6 103/ul Normal 1.2-3.8 [facility] Comment on above: Performed By: #### C BC #### [facility] [address] [place] [address] Dr. Vaishali Dorsey Lymphocytes/100 WBC (Bld) 28.4 % Normal 20.5-60.0 [facility] Comment on above: Performed By: #### C BC #### [facility] [address] [place] [address] Dr. Vaishali Dorsey MANUAL DIFF REQ NO Normal [facility] Comment on above: Performed By: #### C BC #### [facility] [address] [place] [address] Dr. Vaishali Dorsey MCH (RBC) [Entitic mass] 25.2 pg Critically low 25.9-34.0 [facility] Comment on above: Performed By: #### C BC #### [facility] [address] [place] [address] Dr. Vaishali Dorsey MCHC (RBC) [Mass/Vol] 31.1 g/dL Normal 29.9-35.2 [facility] Comment on above: Performed By: #### C BC #### [facility] [address] [place] [address] Dr. Vaishali Dorsey MCV (RBC) [Entitic vol] 81.0 fL Normal 80.0-94.0 [facility] Comment on above: Performed By: #### C BC #### [facility] [address] [place] [address] Dr. Vaishali Dorsey MONO # 1.1 103/ul Critically high 0.3-0.8 [facility] Comment on above: Performed By: #### C BC #### [facility] [address] [place] [address] Dr. Vaishali Dorsey Monocytes/100 WBC (Bld) 8.3 % Normal 1.7-12.0 [facility] Comment on above: Performed By: #### C BC #### [facility] [address] [place] [address] Dr. Vaishali Dorsey NEUT # 7.6 103/ul Critically high 1.4-6.5 [facility] Comment on above: Performed By: #### C BC #### [facility] [address] [place] [address] Dr. Vaishali Dorsey Neutrophils/100 WBC (Bld) 60.4 % Normal 43.0-75.0 [facility] Comment on above: Performed By: #### C BC #### [facility] [address] [place] [address] Dr. Vaishali Dorsey Platelet mean volume (Bld) [Entitic vol] 10.7 fL Normal 9.5-13.5 [facility] Comment on above: Performed By: #### C BC #### [facility] [address] [place] [address] Dr. Vaishali Dorsey PLT 226 103/ul Normal 150-450 [facility] Comment on above: Performed By: #### C BC #### [facility] [address] [place] [address] Dr. Vaishali Dorsey RBC 4.69 106/ul Critically low 4.70-6.10 [facility] Comment on above: Performed By: #### C BC #### [facility] [address] [place] [address] Dr. Vaishali Dorsey WBC 12.6 103/ul Critically high 4.0-11.0 [facility] Comment on above: Performed By: #### C BC #### [facility] [address] [place] [address] Dr. Vaishali Dorsey FERRITINon 06-28-2022 Ferritin [Mass/Vol] 8.0 ng/mL Critically low 26.0-388.0 [facility] Comment on above: Performed By: #### F ERR #### [facility] [address] [place] [address] Dr. Vaishali Dorsey PROF 14(COMP METB)on 022 Albumin [Mass/Vol] 3.8 g/dL Normal 3.4-5.0 [facility] Comment on above: Performed By: #### C MP #### [facility] [address] [place] [address] Dr. Vaishali Dorsey Albumin/Globulin [Mass ratio] 1.1 {ratio} Normal [facility] Comment on above: Performed By: #### C MP #### [facility] [address] [place] [address] Dr. Vaishali Dorsey ALP [Catalytic activity/Vol] 66 U/L Normal 46-116 [facility] Comment on above: Performed By: #### C MP #### [facility] [address] [place] [address] Dr. Vaishali Dorsey ALT [Catalytic activity/Vol] 22 U/L Normal 16-63 [facility] Comment on above: Performed By: #### C MP #### [facility] [address] [place] [address] Dr. Vaishali Dorsey Anion gap [Moles/Vol] 10.4 mmol/L Normal [facility] Comment on above: Performed By: #### C MP #### [facility] [address] [place] [address] Dr. Vaishali Dorsey AST [Catalytic activity/Vol] 19 U/L Normal 15-37 [facility] Comment on above: Performed By: #### C MP #### [facility] [address] [place] [address] Dr. Vaishali Dorsey Bilirubin [Mass/Vol] 0.2 mg/dL Normal 0.2-1.0 [facility] Comment on above: Performed By: #### C MP #### [facility] [address] [place] [address] Dr. Vaishali Dorsey Calcium [Mass/Vol] 9.2 mg/dL Normal 8.5-10.1 [facility] Comment on above: Performed By: #### C MP #### [facility] [address] [place] [address] Dr. Vaishali Dorsey Chloride [Moles/Vol] 107 mmol/L Normal 98-107 [facility] Comment on above: Performed By: #### C MP #### [facility] [address] [place] [address] Dr. Vaishali Dorsey CO2 [Moles/Vol] 31.2 mmol/L Normal 21.0-32.0 [facility] Comment on above: Performed By: #### C MP #### [facility] [address] [place] [address] Dr. Vaishali Dorsey Creatinine [Mass/Vol] 1.02 mg/dL Normal 0.70-1.30 [facility] Comment on above: Performed By: #### C MP #### [facility] [address] [place] [address] Dr. Vaishali Dorsey EGFR-AF BOLIVIAN >60 Normal >=60 [facility] Comment on above: Performed By: #### C MP #### [facility] [address] [place] [address] Dr. Vaishali Dorsey EGFR-NON AF BOLIVIAN >60 Normal >=60 [facility] Comment on above: Performed By: #### C MP #### [facility] [address] [address] [address] Vaishali Dorsey Globulin (S) [Mass/Vol] 3.6 g/dL Normal [facility] Comment on above: Performed By: #### C MP #### [facility] [address] [address] [address] Vaishali Dorsey Glucose [Mass/Vol] 101 mg/dL Normal 74-106 [facility] Comment on above: Performed By: #### C MP #### [facility] [address] [address] [address] Vaishali Dorsey Potassium [Moles/Vol] 4.6 mmol/L Normal 3.5-5.1 [facility] Comment on above: Performed By: #### C MP #### [facility] [address] [place] [address] Dr. Vaishali Dorsey Protein [Mass/Vol] 7.4 g/dL Normal 6.4-8.2 [facility] Comment on above: Performed By: #### C MP #### [facility] [address] [place] [address] Dr. Vaishali Dorsey Sodium [Moles/Vol] 144 mmol/L Normal 136-145 [facility] Comment on above: Performed By: #### C MP #### [facility] [address] [place] [address] Dr. Vaishali Dorsey Urea nitrogen [Mass/Vol] 14.0 mg/dL Normal 7.0-18.0 [facility] Comment on above: Performed By: #### C MP #### [facility] [address] [place] [address] Dr. Vaishali Dorsey Urea nitrogen/Creatinin e [Mass ratio] 13.7 mg/mg Normal [facility] Comment on above: Performed By: #### C MP #### [facility] [address] [place] [address] Dr. Vaishali Dorsey PSA, FREE AND TOTAL RATIOon 04-21-2022 % Free PSA 18.9 % Normal [facility] Comment on above: Result Comment: [...] men. Performed By: #### P SAFREE #### [facility] [address] [address] [address] Vaishali Dorsey Prostate specific Ag [Mass/Vol] 6.5 ng/mL Critically high 0.0-4.0 [facility] Comment on above: Result Comment: Dakota trejo ECLIA methodology. . According to the [place] [employer], Serum PSA should decrease and [...] disease. Performed By: #### P SAFREE #### [facility] [address] [place], [place] [address] Dr. Vaishali Dorsey PSA, Free 1.23 ng/mL Normal N/A [facility] Comment on above: Result Comment: Dakota trejo ECLIA methodology. Performed By: #### P SAFREE #### [facility] [address] [place], [place] [address] Dr. 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 This test has not been FDA cleared [...] is terminated or revoked sooner. PERFORMED BY: [place] [address] PATHOLOGIST LOBSTER MAN KAMERON MARTIN M.D. Performed By: #### C OVID [facility] #### [address] Basic Metabolic Panlon 10-22 Anion gap 12 mmol/L Normal 9-18 [facility] Comment on above: Performed By: #### I CA, CBCDIF, VITD, PTHI, CMP, URIC ####[facility] [place], [place] [phone] Calcium 8.2 mg/dL Low 8.5-10.2 [facility] Comment on above: Performed By: #### I CA, CBCDIF, VITD, PTHI, CMP, URIC ####[facility] [address] [place], [place] [phone] Chloride 102 mmol/L Normal 97-105 [facility] Comment on above: Performed By: #### I CA, CBCDIF, VITD, PTHI, CMP, URIC ####[facility] [address], [place] [phone] CO2 26 mmol/L Normal 22-30 [facility] Comment on above: Performed By: #### I CA, CBCDIF, VITD, PTHI, CMP, URIC ####[facility] [place], [place] [phone] Creatinine 0.98 mg/dL Normal 0.73-1.22 [facility] Comment on above: Performed By: #### I CA, CBCDIF, VITD, PTHI, CMP, URIC ####[facility] [place], [place] [phone] eGFR (non-black) mL/min/{1.73_m2} Normal [facility] Comment on above: Result Comment: eGFR [...] I CA, CBCDIF, VITD, PTHI, CMP, URIC ####[address] [place] [place], [place] [phone] Glucose mass conc 85 mg/dL Normal 74-99 [facility] Comment on above: Result Comment: The [place] [employer] (ADA) provides guidance for cutoff [...] Standards of Medical Care in Diabetes 2016, [place] [employer]. Diabetes Care. 2016.39(Suppl 1). Performed By: #### I CA, CBCDIF, VITD, PTHI, CMP, URIC ####[place] [address] [place], [place] [phone] Potassium molar conc 3.5 mmol/L Low 3.7-5.1 [facility] Comment on above: Performed By: #### I CA, CBCDIF, VITD, PTHI, CMP, URIC ####[place] [address] [phone] Sodium 140 mmol/L Normal 136-144 [facility] Comment on above: Performed By: #### I CA, CBCDIF, VITD, PTHI, CMP, URIC ####[place] [address] [place], [place] [phone] Urea nitrogen 5 mg/dL Low 9-24 [facility] Comment on above: Performed By: #### I CA, CBCDIF, VITD, PTHI, CMP, URIC ####[place] [address] [phone] CBCon 10-22-2017 Erythrocyte distribution width Auto Ratio (RBC) 13.1 % Normal 11.5-15.0 [facility] Comment on above: Performed By: #### I CA, CBCDIF, VITD, PTHI, CMP, URIC ####[place] [address], [place] [phone] Erythrocytes (RBC) 10*6/uL Normal <0.01 [facility] Comment on above: Performed By: #### I CA, CBCDIF, VITD, PTHI, CMP, URIC ####[place] [address], [place] [phone] Erythrocytes (RBC) 3.32 10*6/uL Low 4.20-6.00 [facility] Comment on above: Performed By: #### I CA, CBCDIF, VITD, PTHI, CMP, URIC ####[place] [address], [place] [phone] Hematocrit (HCT) 29.6 % Low 39.0-51.0 [facility] Comment on above: Performed By: #### I CA, CBCDIF, VITD, PTHI, CMP, URIC ####[place] [address] [phone] Hemoglobin mass conc (Bld) 9.8 g/dL Low 13.0-17.0 [facility] Comment on above: Performed By: #### I CA, CBCDIF, VITD, PTHI, CMP, URIC ####[place] [address] [phone] MCH 29.5 pG Normal 26.0-34.0 [facility] Comment on above: Performed By: #### I CA, CBCDIF, VITD, PTHI, CMP, URIC ####[place] [phone] MCHC mass conc (RBC) 33.1 g/dL Normal 30.5-36.0 [facility] Comment on above: Performed By: #### I CA, CBCDIF, VITD, PTHI, CMP, URIC ####[place] [address] [phone] MCV 89.2 fL Normal 80.0-100.0 [facility] Comment on above: Performed By: #### I CA, CBCDIF, VITD, PTHI, CMP, URIC ####[place] [address] [phone] Platelet mean volume (PMV) 10.5 fL Normal 9.0-12.7 [facility] Comment on above: Performed By: #### I CA, CBCDIF, VITD, PTHI, CMP, URIC ####[place] [address] [phone] Platelets 267 10*3/uL Normal 150-400 [facility] Comment on above: Performed By: #### I CA, CBCDIF, VITD, PTHI, CMP, URIC ####[facility] [address] [place], [place] [phone] WBC (Leukocytes) 10.19 10*3/uL Normal 3.70-11.00 [facility] Comment on above: Performed By: #### I CA, CBCDIF, VITD, PTHI, CMP, URIC ####[facility] [address] [place], [place] [phone] CNDSon 10-22-2017 CNDS HNO ID: [id number] thor: Feliciano Santanaervice: UrologyAuthor Type: PhysicianType: Discharge SummariesFiled: 10/23/2017 8:54 AMNote Text:DISCHARGE SUMMARYPATIENT NAME: Darrell Nelson ADMISSION DATE: 10/21/2017MRN: [id number] DISCHARGE DATE: 10/22/2017Attending Physician: Feliciano Vega for [...] of this patient.SIGNATURE: Tk Abdalla MD PAGER: [phone]: October 22, 2017TIME: 9:32 AMFeliciano Schroeder MDDirector, Surgical Stone Disease, [facility]ic InstituteProfessor of Surgery, [facility] HospitalPager [phone]/23/2017 Normal [facility] PROGRESSon 10-22-2017 PROGRESS HNO ID: [id number] thor: Tk (Res) NIK Abdallaervice: UrologyAuthor Type: ResidentType: Progress NotesFiled: [...] lb 4 oz) SpO2 95% BMI 25.43 kg/z1Qylyjyjxsyx max: Temp (24hrs), Av.1 ?C (98.7 ?F), Min:36.8 ?C (98.3?F), Max:37.2 ?C (99 ?F)Intake/Output 10/21/17 0700 - 10/22/17 0659 10/22/17 0700 - 10/23/17 0659 Intake (ml) 2180 -- Output (ml) 2550 650 Net (ml) -370 -650LABS:BUN (mg/dL)Date Value10/22/2017 501 801 701 912 10 Creatinine (mg/dL)Date Value10/22/2017 0.9801 0.9201 0.9001 1.0012 1.05 Recent Labs 438WBC 10.19HB 9.8*HCT 29.6*NA 140K 3.5*CHLOR 102CO2 26GLUC 85Glucose, Urine (mg/dL)Date Value10/21/2017 Negative Bilirubin, Urine (no units)Date Value10/21/2017 Negative Ketones, Urine (no units)Date Value10/21/2017 Negative Specific [place], Ur (no units)Date Value10/21/2017 1.010 Hemoglobin/Blood ,Ur ( )Date Value10/21/2017 3+ (A) pH, Urine (no units)Date Value10/21/2017 6.0 Protein, Urine (mg/dL)Date Value10/21/2017 30 (A) Nitrites (no units)Date Value10/21/2017 Negative WBC, Urine (/HPF)Date Value10/21/2017 >25 (A) Color (no units)Date Value10/21/2017 Yellow Clarity (no units)Date Value10/21/2017 Cloudy (A) Assessment/PlanAct [facility] Problems Leukocytosis [D72.829]Mr. Nelson is a [...] 22, 2017 : 7:31 AM PAGER/CONTACT #: [phone] Normal [facility] Basic Metabolic Panlon 10-21 Anion gap 14 mmol/L Normal 9-18 [facility] Comment on above: Performed By: #### I CA, CBCDIF, VITD, PTHI, CMP, URIC ####[place] [address] [phone] Calcium 8.3 mg/dL Low 8.5-10.2 [facility] Comment on above: Performed By: #### I CA, CBCDIF, VITD, PTHI, CMP, URIC ####[place] [address] [phone] Chloride 104 mmol/L Normal 97-105 [facility] Comment on above: Performed By: #### I CA, CBCDIF, VITD, PTHI, CMP, URIC ####[place] [address] [phone] CO2 25 mmol/L Normal 22-30 [facility] Comment on above: Performed By: #### I CA, CBCDIF, VITD, PTHI, CMP, URIC ####[place] [address] [phone] Creatinine 0.92 mg/dL Normal 0.73-1.22 [facility] Comment on above: Performed By: #### I CA, CBCDIF, VITD, PTHI, CMP, URIC ####[place] [address] [phone] eGFR (non-black) mL/min/{1.73_m2} Normal [facility] Comment on above: Result [...] I CA, CBCDIF, VITD, PTHI, CMP, URIC ####[facility] [place], [place] [phone] Glucose mass conc 79 mg/dL Normal 74-99 [facility] Comment on above: Result Comment: The [place] [employer] (ADA) provides guidance for cutoff [...] Standards of Medical Care in Diabetes 2016, [place] [employer]. Diabetes Care. 2016.39(Suppl 1). Performed By: #### I CA, CBCDIF, VITD, PTHI, CMP, URIC ####[facility], [place] [phone] Potassium molar conc 3.7 mmol/L Normal 3.7-5.1 [facility] Comment on above: Performed By: #### I CA, CBCDIF, VITD, PTHI, CMP, URIC ####[facility], [place] [phone] Sodium 143 mmol/L Normal 136-144 [facility] Comment on above: Performed By: #### I CA, CBCDIF, VITD, PTHI, CMP, URIC ####[facility] [phone] Urea nitrogen 8 mg/dL Low 9-24 [facility] Comment on above: Performed By: #### I CA, CBCDIF, VITD, PTHI, CMP, URIC ####[facility] [address] [place] [phone] CBC and Differentialon 10-21 Abs Baso 0.05 k/uL Normal <0.11 [facility] Comment on above: Performed By: #### I CA, CBCDIF, VITD, PTHI, CMP, URIC ####[place] [address] [place] [phone] Abs [place] 0.81 k/uL Normal <0.87 [facility] Comment on above: Performed By: #### I CA, CBCDIF, VITD, PTHI, CMP, URIC ####[place] [address] [phone] Abs Neut 6.30 k/uL Normal 1.45-7.50 [facility] Comment on above: Performed By: #### I CA, CBCDIF, VITD, PTHI, CMP, URIC ####[place] [address] [place] [phone] Basophils/100 WBC Auto (Bld) 0.5 % Normal [facility] Comment on above: Performed By: #### I CA, CBCDIF, VITD, PTHI, CMP, URIC ####[place] [address] [place] [phone] DTYPE Auto Diff Normal [facility] Comment on above: Performed By: #### I CA, CBCDIF, VITD, PTHI, CMP, URIC ####[place] [address] [place] [phone] Eosinophils 0.24 10*3/uL Normal <0.46 [facility] Comment on above: Performed By: #### I CA, CBCDIF, VITD, PTHI, CMP, URIC ####[place] [address] [place] [phone] Eosinophils/100 leukocytes 2.3 % Normal [facility] Comment on above: Performed By: #### I CA, CBCDIF, VITD, PTHI, CMP, URIC ####[place] [address] [phone] Erythrocyte distribution width Auto Ratio (RBC) 13.1 % Normal 11.5-15.0 [facility] Comment on above: Performed By: #### I CA, CBCDIF, VITD, PTHI, CMP, URIC ####[place] [address] [phone] Erythrocytes (RBC) 3.34 10*6/uL Low 4.20-6.00 [facility] Comment on above: Performed By: #### I CA, CBCDIF, VITD, PTHI, CMP, URIC ####[place] [address] [phone] Erythrocytes (RBC) 10*6/uL Normal <0.01 [facility] Comment on above: Performed By: #### I CA, CBCDIF, VITD, PTHI, CMP, URIC ####[place] [address] [phone] Erythrocytes (RBC) 0.0 /100 WBC Normal 0 [facility] Comment on above: Performed By: #### I CA, CBCDIF, VITD, PTHI, CMP, URIC ####[place] [address] [phone] Hematocrit (HCT) 30.2 % Low 39.0-51.0 [facility] Comment on above: Performed By: #### I CA, CBCDIF, VITD, PTHI, CMP, URIC ####[place] [address] [phone] Hemoglobin mass conc (Bld) 10.2 g/dL Low 13.0-17.0 [facility] Comment on above: Performed By: #### I CA, CBCDIF, VITD, PTHI, CMP, URIC ####[place] [address] [phone] Lymphocytes 3.06 10*3/uL Normal 1.00-4.00 [facility] Comment on above: Performed By: #### I CA, CBCDIF, VITD, PTHI, CMP, URIC ####[place] [address] [place] [phone] Lymphocytes/100 leukocytes 29.3 % Normal [facility] Comment on above: Performed By: #### I CA, CBCDIF, VITD, PTHI, CMP, URIC ####[place] [phone] MCH 30.5 pG Normal 26.0-34.0 [facility] Comment on above: Performed By: #### I CA, CBCDIF, VITD, PTHI, CMP, URIC ####[place] [phone] MCHC mass conc (RBC) 33.8 g/dL Normal 30.5-36.0 [facility] Comment on above: Performed By: #### I CA, CBCDIF, VITD, PTHI, CMP, URIC ####[place] [phone] MCV 90.4 fL Normal 80.0-100.0 [facility] Comment on above: Performed By: #### I CA, CBCDIF, VITD, PTHI, CMP, URIC ####[address] [place] [phone] Monocytes/100 leukocytes 7.7 % Normal [facility] Comment on above: Performed By: #### I CA, CBCDIF, VITD, PTHI, CMP, URIC ####[address] [place] [phone] Neutrophils/100 WBC Auto (Bld) 60.2 % Normal [facility] Comment on above: Performed By: #### I CA, CBCDIF, VITD, PTHI, CMP, URIC ####[facility] [place], [place] [phone] Platelet mean volume (PMV) 10.7 fL Normal 9.0-12.7 [facility] Comment on above: Performed By: #### I CA, CBCDIF, VITD, PTHI, CMP, URIC ####[facility] [place], [place] [phone] Platelets 260 10*3/uL Normal 150-400 [facility] Comment on above: Performed By: #### I CA, CBCDIF, VITD, PTHI, CMP, URIC ####[place] [address] [place], [place] [phone] WBC (Leukocytes) 10.46 10*3/uL Normal 3.70-11.00 [facility] Comment on above: Performed By: #### I CA, CBCDIF, VITD, PTHI, CMP, URIC ####[facility] [place], [place] [phone] Protimeon 10-21-2017 INR Coag RelTime (Bld) 1.0 {INR} Normal 0.9-1.3 [facility] Comment on above: Result Comment: Laisha min K Antagonist (VKA) Therapeutic Range: INR 2 to 3 (Target INR of 2.5)Note: For patients treated with VKA drugs, such as warfarin, the [employer] 2012 Guideline recommends [...] 2012, 141:7S-47SNishimura RA, et al. [facility] 2017, 70: 252-289 Performed By: #### I CA, CBCDIF, VITD, PTHI, CMP, URIC ####[facility]CCh[address] [place], [place] [phone] PT Sec 10.4 sec Normal 9.7-13.0 [facility] Comment on above: Performed By: #### I CA, CBCDIF, VITD, PTHI, CMP, URIC ####[facility]CCh[address] [place], [place] [phone] Type and Screenon 10-21-2017 ABO/RH(D) Positive Normal [facility] Comment on above: Performed By: #### I CA, CBCDIF, VITD, PTHI, CMP, URIC ####[place] [address] [place], [place] [phone] Antibody Screen Negative Normal [facility] Comment on above: Performed By: #### I CA, CBCDIF, VITD, PTHI, CMP, URIC ####[place] [address] [place], [place] [phone] Urinalysison 10-21-2017 Bilirubin, Urine Negative Normal Negative [facility] Comment on above: Performed By: #### I CA, CBCDIF, VITD, PTHI, CMP, URIC ####[place] [address] [place], [place] [phone] Comments SEE COMMENT Normal [facility] Comment on above: Result Comment: Micr oscopic Examination Performed Performed By: #### I CA, CBCDIF, VITD, PTHI, CMP, URIC ####[place] [address]CChis[address] [place], [place] [phone] Erythrocytes (RBC) 10*6/uL Critically abnormal 0-3 [facility] Comment on above: Performed By: #### I CA, CBCDIF, VITD, PTHI, CMP, URIC ####[place] [address] [place] [phone] Hemoglobin mass conc (Bld) 3+ Critically abnormal Negative [facility] Comment on above: Performed By: #### I CA, CBCDIF, VITD, PTHI, CMP, URIC ####[place] [address] AveCMatthew [place] [phone] Leukest 3+ Critically abnormal Negative [facility] Comment on above: Performed By: #### I CA, CBCDIF, VITD, PTHI, CMP, URIC ####[place] [address] AveCMatthew [place] [phone] pH of blood 6.0 [pH] Normal 4.5-8.0 [facility] Comment on above: Performed By: #### I CA, CBCDIF, VITD, PTHI, CMP, URIC ####[place] [address] [place] [phone] Protein, Urine 30 mg/dL Critically abnormal Negative [facility] Comment on above: Performed By: #### I CA, CBCDIF, VITD, PTHI, CMP, URIC ####[address] [place] [phone] Specific [place], Ur 1.010 Normal 1.005-1.03 0 [facility] Comment on above: Performed By: #### I CA, CBCDIF, VITD, PTHI, CMP, URIC ####[place] [address]CMatthew [place] [phone] Urine Kelby Comment SEE COMMENT Normal [facility] Comment on above: Result Comment: N/A Performed By: #### I CA, CBCDIF, VITD, PTHI, CMP, URIC ####[place] [address] [place] [phone] Urine, clarity Cloudy Critically abnormal Clear [facility] Comment on above: Performed By: #### I CA, CBCDIF, VITD, PTHI, CMP, URIC ####[place] [address] [place] [phone] Urine, color Yellow Normal Yellow [facility] Comment on above: Performed By: #### I CA, CBCDIF, VITD, PTHI, CMP, URIC ####[facility]CM[address] [place] [phone] Urine, epithelial cells in sediment SEE COMMENT Normal [facility] Comment on above: Result Comment: FewS quamous Epithelial Cells Performed By: #### I CA, CBCDIF, VITD, PTHI, CMP, URIC ####[place] [address] [place] [address] Urine, glucose presence Negative Normal Negative [facility] Comment on above: Performed By: #### I CA, CBCDIF, VITD, PTHI, CMP, URIC ####[place] [address] [place] [address] Urine, ketones presence Negative Normal Negative [facility] Comment on above: Performed By: #### I CA, CBCDIF, VITD, PTHI, CMP, URIC ####[place] [address] [place] [address] Urine, nitrite presence Negative Normal Negative [facility] Comment on above: Performed By: #### I CA, CBCDIF, VITD, PTHI, CMP, URIC ####[place] [address] [place] [address] Urine, urobilinogen Normal Normal Normal [facility] Comment on above: Performed By: #### I CA, CBCDIF, VITD, PTHI, CMP, URIC ####[address] [place] [address] WBC (Leukocytes) 10*3/uL Critically abnormal 0-5 [facility] Comment on above: Performed By: #### I CA, CBCDIF, VITD, PTHI, CMP, URIC ####[place] [address] [place], [place] [phone] Urine Cultureon 10-21-2017 Urine culture, bacteria Sp. Request/Comment: - Specimen received in preservative Culture Result - No growth (<1,000 CFU/ml) Normal [facility] Comment on above: Performed By: #### I CA, CBCDIF, VITD, PTHI, CMP, URIC ####[facility] [address] [place], [place] [phone] HISTORY PHYSICALon 8 HISTORY PHYSICAL HNO ID: [id number] thor: Tk (Sudeep) NIK Abdallaervice: UrologyAuthor Type: ResidentType: HANDPFiled: 10/21/2017 2:31 PMNote Text:HANDP: UROLOGY SERVICENAME: Darrell CmdMRN: [id number]: [id number] DATE: 10/19/2017SERVICE TIME: 5:04 AMPRITUCSON VA MEDICAL CENTERY CARE PHYSICIAN: Abigail Sanchez, [facility] AND [facility]. Omar is a 67 year old male [...] with Dr. Adarsh Abdalla III, MDUrology PGY-2Pager: [phone] 201710:00Overnight and on weekends please page [phone] OF PRESENT ILLNESSMr. Nelson is a 67 [...] and 14mm in R renal pelvis Normal [facility] Basic Metabolic Panlon 10-13 Anion gap 12 mmol/L Normal 9-18 [facility] Comment on above: Performed By: #### I CA, CBCDIF, VITD, PTHI, CMP, URIC ####[facility] [address] [place], [place] [phone] Calcium 8.2 mg/dL Low 8.5-10.2 [facility] Comment on above: Performed By: #### I CA, CBCDIF, VITD, PTHI, CMP, URIC ####[facility] [address] [place], [place] [phone] Chloride 103 mmol/L Normal 97-105 [facility] Comment on above: Performed By: #### I CA, CBCDIF, VITD, PTHI, CMP, URIC ####[facility] [address] [place], [place] [phone] CO2 25 mmol/L Normal 22-30 [facility] Comment on above: Performed By: #### I CA, CBCDIF, VITD, PTHI, CMP, URIC ####[facility], [place] [phone] Creatinine 0.90 mg/dL Normal 0.73-1.22 [facility] Comment on above: Performed By: #### I CA, CBCDIF, VITD, PTHI, CMP, URIC ####[facility] [address] [place], [place] [phone] eGFR (non-black) mL/min/{1.73_m2} Normal [facility] Comment on above: Performed By: #### I CA, CBCDIF, VITD, PTHI, CMP, URIC ####[facility] [address] [place], [place] [phone] Result Comment: eGFR (Estimated GFR) Units of [...] Glucose mass conc 95 mg/dL Normal 74-99 [facility] Comment on above: Result Comment: The [place] [employer] (ADA) provides guidance for cutoff [...] Standards of Medical Care in Diabetes 2016, [place] [employer]. Diabetes Care. 2016.39(Suppl 1). Performed By: #### I CA, CBCDIF, VITD, PTHI, CMP, URIC ####[place] [address] [place], [place] [phone] Potassium molar conc 3.9 mmol/L Normal 3.7-5.1 [facility] Comment on above: Performed By: #### I CA, CBCDIF, VITD, PTHI, CMP, URIC ####[place] [address] [place], [place] [phone] Sodium 140 mmol/L Normal 136-144 [facility] Comment on above: Performed By: #### I CA, CBCDIF, VITD, PTHI, CMP, URIC ####[place] [address] [place] [phone] Urea nitrogen 7 mg/dL Low 9-24 [facility] Comment on above: Performed By: #### I CA, CBCDIF, VITD, PTHI, CMP, URIC ####[place] [address] [place] [phone] CBC and Differentialon 10-13 Abs Baso 0.03 k/uL Normal <0.11 [facility] Comment on above: Performed By: #### I CA, CBCDIF, VITD, PTHI, CMP, URIC ####[place] [address] [place], [place] [phone] Abs [place] 1.28 k/uL High <0.87 [facility] Comment on above: Performed By: #### I CA, CBCDIF, VITD, PTHI, CMP, URIC ####[place] [address] [place], [place] [phone] Abs Neut 8.97 k/uL High 1.45-7.50 [facility] Comment on above: Performed By: #### I CA, CBCDIF, VITD, PTHI, CMP, URIC ####[place] [address] [place], [place] [phone] Basophils/100 WBC Auto (Bld) 0.2 % Normal [facility] Comment on above: Performed By: #### I CA, CBCDIF, VITD, PTHI, CMP, URIC ####[place] [address] [place] [phone] DTYPE Auto Diff Normal [facility] Comment on above: Performed By: #### I CA, CBCDIF, VITD, PTHI, CMP, URIC ####[place] [address] [place] [phone] Eosinophils 0.20 10*3/uL Normal <0.46 [facility] Comment on above: Performed By: #### I CA, CBCDIF, VITD, PTHI, CMP, URIC ####[place] [address] [place] [phone] Eosinophils/100 leukocytes 1.6 % Normal [facility] Comment on above: Performed By: #### I CA, CBCDIF, VITD, PTHI, CMP, URIC ####[place] [address] [place] [phone] Erythrocyte distribution width Auto Ratio (RBC) 12.4 % Normal 11.5-15.0 [facility] Comment on above: Performed By: #### I CA, CBCDIF, VITD, PTHI, CMP, URIC ####[place] [address] [place] [phone] Erythrocytes (RBC) 4.29 10*6/uL Normal 4.20-6.00 [facility] Comment on above: Performed By: #### I CA, CBCDIF, VITD, PTHI, CMP, URIC ####[place] [address] [place] [phone] Erythrocytes (RBC) 0.0 /100 WBC Normal 0 [facility] Comment on above: Performed By: #### I CA, CBCDIF, VITD, PTHI, CMP, URIC ####[place] [address] [place] [phone] Erythrocytes (RBC) 10*6/uL Normal <0.01 [facility] Comment on above: Performed By: #### I CA, CBCDIF, VITD, PTHI, CMP, URIC ####[place] [address] [place] [phone] Hematocrit (HCT) 38.8 % Low 39.0-51.0 [facility] Comment on above: Performed By: #### I CA, CBCDIF, VITD, PTHI, CMP, URIC ####[place] [address] [place] [phone] Hemoglobin mass conc (Bld) 12.7 g/dL Low 13.0-17.0 [facility] Comment on above: Performed By: #### I CA, CBCDIF, VITD, PTHI, CMP, URIC ####[place] [address] [place] [phone] Lymphocytes 2.16 10*3/uL Normal 1.00-4.00 [facility] Comment on above: Performed By: #### I CA, CBCDIF, VITD, PTHI, CMP, URIC ####[place] [address] [place] [phone] Lymphocytes/100 leukocytes 17.1 % Normal [facility] Comment on above: Performed By: #### I CA, CBCDIF, VITD, PTHI, CMP, URIC ####[place] [address] [place] [phone] MCH 29.6 pG Normal 26.0-34.0 [facility] Comment on above: Performed By: #### I CA, CBCDIF, VITD, PTHI, CMP, URIC ####[place] [address] [place] [phone] MCHC mass conc (RBC) 32.7 g/dL Normal 30.5-36.0 [facility] Comment on above: Performed By: #### I CA, CBCDIF, VITD, PTHI, CMP, URIC ####[place] [address] [place], [place] [phone] MCV 90.4 fL Normal 80.0-100.0 [facility] Comment on above: Performed By: #### I CA, CBCDIF, VITD, PTHI, CMP, URIC ####[place] [address] [place] [phone] Monocytes/100 leukocytes 10.1 % Normal [facility] Comment on above: Performed By: #### I CA, CBCDIF, VITD, PTHI, CMP, URIC ####[place] [address] [place] [phone] Neutrophils/100 WBC Auto (Bld) 71.0 % Normal [facility] Comment on above: Performed By: #### I CA, CBCDIF, VITD, PTHI, CMP, URIC ####[place] [address], [place] [phone] Platelet mean volume (PMV) 11.3 fL Normal 9.0-12.7 [facility] Comment on above: Performed By: #### I CA, CBCDIF, VITD, PTHI, CMP, URIC ####[address] [phone] Platelets 138 10*3/uL Low 150-400 [facility] Comment on above: Result Comment: Resu lt checked and verifiedNo clot detected. Performed By: #### I CA, CBCDIF, VITD, PTHI, CMP, URIC ####[place] [address], [place] [phone] WBC (Leukocytes) 12.64 10*3/uL High 3.70-11.00 [facility] Comment on above: Performed By: #### I CA, CBCDIF, VITD, PTHI, CMP, URIC ####[address] [place], [place] [phone] CNDSon 10-13-2017 CNDS HNO ID: [id number] thor: Feliciano Santanaervice: UrologyAuthor Type: PhysicianType: Discharge SummariesFiled: 10/15/2017 3:53 PMNote Text:[facility] [place] [address] or [phone] [facility] O N F I D E N T I A L I N F O R M A T I O N STANDARD [facility] (HULMBOLDT DOCUMENTDISCHARGE SUMMARYPatient Name: Darrell Silverio Date: 10/11/2017Discharge [...] hours for 3 days. Take 1000mg Tylenol (oby534im tablets) every 6 hours for 3 days. [...] Carlos Eduardo Dorantes, MDDirector, Surgical Stone Disease, [facility] Urologic InstituteProfessor of Surgery, [facility] HospitalPager Normal [facility] PLAN OF CAREon 10-13-2017 PLAN OF CARE HNO ID: [id number] thor: Angelique Serrano (Fuel Yard Operator)Service: (none)Author Type: (none)Type: Plan of CareFiled: 10/13/2017 8:44 AMNote Text:REINFORCING STEEL WORKER WIRE MESH BEDSIDE DELIVERY SURVEY1. Patient to use [facility] Bedside Delivery - NO prefer ownpharmacy2. If fax, patient would like us to fax prescriptions to [facility] a. Pharmacy: b. Location: c. Phone:3. Insurance card on file - NO4. Credit card for payment - NO Normal [facility] PROGRESSon 10-13-2017 PROGRESS HNO ID: [id number] thor: Shelly ([facility]) O'NeillService: UrologyAuthor Type: Nurse PractitionerType: Progress NotesFiled: 10/13/2017 11:00 AMNote Text:UROLOGY SERVICE PROGRESS NOTEName: Darrell CmdBed: G090 013/Q808-86QEH: [id number]: October 13, 2017ASSESSMENT AND PLANDarrell Emmanuelle Nelson is a 67 year old male with history of HTN, nephrolithiasisnow POD#2 s/p PCNL and R JJ stent placement.#Neuro-Pain controlled on Tylenol#CV/Asgv-JTF-Kfg stable-Continue incentive spirometer use#GI-Diet - GI Soft/regular diet; tolerating without N/V#-Scr 0.90-UOP good-Christian: removed- voiding without difficulty#FEN-IVF NS @ 125 ml/hr#Activity - OOB to chair and Ambulate with assistance#DVT prophylaxis - SCDs, Pharmacologic DVT prophylaxis contraindicated dueto bleeding risk#Antibiotics - Perioperative antibiotics - Ancef#Secondary Dx and ComplicationsHTN- c/w home medications; [facility]#Discharge teaching - routine teaching#Disposition - Discharge home todaySUBJECTIVE-Pain:controlled -CP/SOB: Denies-N/V:Denies-Bowel function:+Flatus. No BM-Ambulating: YesBrief HPI: No acute events throughout the night. Denies fever, chills.Voiding without difficulty. Doing well. Eager for discharge home.OBJECTIVEVital SignsBP 154/79 Pulse 89 Temp 36.9 ?C (98.4 ?F) (Oral) Resp 20 Ht 175.3cm (5' 9 ) Wt 80 kg (176 lb 5.9 oz) SpO2 96% BMI 26.05 kg/s4Mgbge and OutputIntake/Output Summary (Last 24 hours) at [...] mL ORAL q 6 H PRNphenol 1 [place] (CHLORASEPTIC) 1 [place] MUCOUS MEMBRANE (TOPICAL MOUTH ANDTHROAT) q 2 H PRNsimethicone, chewable 80 mg tab(s) (MYLICON) 80 mg ORAL q 8 H PRNoxybutynin 5 mg tab(s) (DITROPAN) 5 mg ORAL q 8 H PRNoxyCODONE IR 5-10 mg tab(s) (ROXICODONE) 5-10 mg ORAL q 4 H PRNNo past medical history on file.The Medical CenterXR 10/11/17IMPRESSION:NO ACUTE DISEASESIGNATURE: Shelly Cote CNP PAGER: [phone]: October 13, 2017TIME: 9:45amPlease page [phone] on weekends and after 4pm on weekdays Normal [facility] PROGRESS HNO ID: [id number] thor: Miguel (Res) BrykService: UrologyAuthor Type: ResidentType: Progress NotesFiled: 10/13/2017 6:47 AMNote Text:UROLOGY RESIDENT PROGRESS NOTEName: Darrell CmdBed: G090 013/W287-29UGP: [id number]: October 13, 2017 =====SUBJECTIVE- no acute events overnight-Pain: controlled-N/V : No- Tolerated diet, ambulating, +ROBF ======OBJECTIVEVital SignsPatient Vitals for the past 8 hrs: BP Temp Temp src Pulse Resp ErH70810/13/17 0300 144/71 36.7 ?C (98 ?F) Oral [...] mL ORAL q 6 H PRNphenol 1 [place] (CHLORASEPTIC) 1 [place] MUCOUS MEMBRANE (TOPICAL MOUTH ANDTHROAT) q 2 H PRNsimethicone, chewable 80 mg tab(s) (MYLICON) 80 mg ORAL q 8 H PRNoxybutynin 5 mg tab(s) (DITROPAN) 5 mg ORAL q 8 H PRNoxyCODONE IR 5-10 mg tab(s) (ROXICODONE) 5-10 mg ORAL q 4 H PRN =====ASSESSMENT AND PLANGloriavin Emmanuelle Nelson is a 67 year old [...] staff Dr. Schroeder. ========Miguel Zapata M.D.Urology PGY-2Pager: [phone] 20176:47 AMOvernight and on weekends please page [phone] Normal [facility] APTTon 10-12-2017 aPTT 27.4 s Normal 23.0-32.4 [facility] Comment on above: Result Comment: [...] laboratory APTT reagent in use throughout the [facility]. Performed By: #### P T, PTT, MG1 ####[facility] [address] [place], [place] [phone] Basic Metabolic Panlon 10-12 Anion gap 8 mmol/L Low 9-18 [facility] Comment on above: Performed By: #### C BCDIF, BMP ####[place] [address] [place] [phone] Calcium 8.2 mg/dL Low 8.5-10.2 [facility] Comment on above: Performed By: #### C BCDIF, BMP ####[place] [address] [place] [phone] Chloride 103 mmol/L Normal 97-105 [facility] Comment on above: Performed By: #### C BCDIF, BMP ####[place] [address] [phone] CO2 31 mmol/L High 22-30 [facility] Comment on above: Performed By: #### C BCDIF, BMP ####[place] [address] [place] [phone] Creatinine 1.00 mg/dL Normal 0.73-1.22 [facility] Comment on above: Performed By: #### C BCDIF, BMP ####[place] [address] [place] [phone] eGFR (non-black) mL/min/{1.73_m2} Normal [facility] Comment on above: Performed By: #### C BCDIF, BMP ####[place] [address] [place] [phone] Result Comment: eGFR (Estimated GFR) Units of [...] Glucose mass conc 100 mg/dL High 74-99 [facility] Comment on above: Result Comment: The [place] Diabetes [employer] (ADA) provides guidance for cutoff [...] Standards of Medical Care in Diabetes 2016, [place] [employer]. Diabetes Care. 2016.39(Suppl 1). Performed By: #### C ROSEANNA, BMP ####[facility] [place], [place] [phone] Potassium molar conc 4.0 mmol/L Normal 3.7-5.1 [facility] Comment on above: Performed By: #### C ROSEANNA, BMP ####[facility] [place], [place] [phone] Sodium 142 mmol/L Normal 136-144 [facility] Comment on above: Performed By: #### C ROSEANNA, BMP ####[facility] [place], [place] [phone] Urea nitrogen 9 mg/dL Normal 9-24 [facility] Comment on above: Performed By: #### C ROSEANNA, BMP ####[facility] [place], [place] [phone] CASE MGT INIT MINGon 2017 CASE MGT INIT MING HNO ID: [id number]: Brigette (Rn) Micha RNService: Care ManagementAuthor Type: Registered NurseType: Bassam Mgt Initial AssessmentFiled: 10/12/2017 4:00 PMNote Text:CARE MANAGEMENT: ASSESSMENT AND DISCHARGE PLANSERVICE DATE: 10/12/2017SERVICE TIME: 3:57 PMPRIMARY CARE PHYSICIAN:Abigail Sanchez, [facility] MONTGOMERYhone: [phone] STATUS: Ambulatory SurgeryPOTENTIAL DISCHARGE PLANSNo Services IndicatedPatient/Cadastral Engineer Stated Goals: return homeNeeds Prior to Discharge: NoneHealth Insurance: Medical [place] ServicesLiving Arrangement: HomeLives With: SpouseFinancial Resources: RetiredPrimary Contact:Extended Emergency Contact InformationPrimary Emergency Contact: Ansley NelsonAddress: [address] [place] [address] [facility] Ukzref Zdycfaml: SpouseSupportive: YesOther Important Patient Contacts: NoneCAREGIVER ASSESSMENT:Caregiver [...] days? NoHas the Patient Been in a Intermediate Facility in the Past 30 days? NoFREEDOM OF CHOICE EXPLAINED:N/RADHA COMMUNICATION:n/aAdm post op after pcnl. Spoke w/ pt at bedside. No skilled dc needsidentified, was independent prior to adm. Chief complaint is of his christian.Please contact care transitions manager if needs arise prior to dc.SIGNATURE: Brigette Muse RN PATIENT NAME: Darrell ElizaldeATE: October 12, 2017 : 3:57 PM PAGER/CONTACT #: [phone] Normal [facility] CBC and Differentialon 10-12 Abs Baso 0.03 k/uL Normal <0.11 [facility] Comment on above: Performed By: #### C BCDIKyra, BMP ####[place] [address] [place], [place] [phone] Abs [place] 1.45 k/uL High <0.87 [facility] Comment on above: Performed By: #### C BCDIF, BMP ####[facility] [place] [phone] Abs Neut 9.96 k/uL High 1.45-7.50 [facility] Comment on above: Performed By: #### C BCDIF, BMP ####[facility], [place] [phone] Basophils/100 WBC Auto (Bld) 0.2 % Normal [facility] Comment on above: Performed By: #### C BCDIF, BMP ####[facility] [place], [place] [phone] DTYPE Auto Diff Normal [facility] Comment on above: Performed By: #### C BCDIF, BMP ####[place] [address] [place], [place] [phone] Eosinophils 0.06 10*3/uL Normal <0.46 [facility] Comment on above: Performed By: #### C BCDIF, BMP ####[place] [address] [place], [place] [phone] Eosinophils/100 leukocytes 0.4 % Normal [facility] Comment on above: Performed By: #### C BCDIF, BMP ####[place] [address] [place], [place] [phone] Erythrocyte distribution width Auto Ratio (RBC) 12.6 % Normal 11.5-15.0 [facility] Comment on above: Performed By: #### C BCDIF, BMP ####[place] [address] [place], [place] [phone] Erythrocytes (RBC) 0.0 /100 WBC Normal 0 [facility] Comment on above: Performed By: #### C BCDIF, BMP ####[place] [address] [place], [place] [phone] Erythrocytes (RBC) 3.97 10*6/uL Low 4.20-6.00 [facility] Comment on above: Performed By: #### C BCDIF, BMP ####[place] [address] [place], [place] [phone] Erythrocytes (RBC) 10*6/uL Normal <0.01 [facility] Comment on above: Performed By: #### C BCDIF, BMP ####[place] [address] [place], [place] [phone] Hematocrit (HCT) 35.9 % Low 39.0-51.0 [facility] Comment on above: Performed By: #### C BCDIF, BMP ####[place] [address] [place], [place] [phone] Hemoglobin mass conc (Bld) 11.9 g/dL Low 13.0-17.0 [facility] Comment on above: Performed By: #### C BCDIF, BMP ####[place] [address] [place], [place] [phone] Lymphocytes 2.91 10*3/uL Normal 1.00-4.00 [facility] Comment on above: Performed By: #### C BCMARIELA, BMP ####[place] [address] [place] [phone] Lymphocytes/100 leukocytes 20.2 % Normal [facility] Comment on above: Performed By: #### C ROSEANNA, BMP ####[place] [address] [place] [phone] MCH 30.0 pG Normal 26.0-34.0 [facility] Comment on above: Performed By: #### C ROSEANNA, BMP ####[place] [address] [place] [phone] MCHC mass conc (RBC) 33.1 g/dL Normal 30.5-36.0 [facility] Comment on above: Performed By: #### C ROSEANNA, BMP ####[place] [address] [place] [phone] MCV 90.4 fL Normal 80.0-100.0 [facility] Comment on above: Performed By: #### C ROSEANNA, BMP ####[place] [address] [place] [phone] Monocytes/100 leukocytes 10.1 % Normal [facility] Comment on above: Performed By: #### C BCMARIELA, BMP ####[place] [address] [place] [phone] Neutrophils/100 WBC Auto (Bld) 69.1 % Normal [facility] Comment on above: Performed By: #### C BCMARIELA, BMP ####[place] [address] [phone] Platelet mean volume (PMV) 11.2 fL Normal 9.0-12.7 [facility] Comment on above: Performed By: #### C BCMARIELA, BMP ####[facility], [place] [phone] Platelets 124 10*3/uL Low 150-400 [facility] Comment on above: Result Comment: Resu lt checked and verifiedNo clot detected. Performed By: #### C BCDIF, BMP ####[facility] [place], [place] [phone] WBC (Leukocytes) 14.41 10*3/uL High 3.70-11.00 [facility] Comment on above: Performed By: #### C BCDIF, BMP ####[place] [address] [place], [place] [phone] Magnesiumon 10-12-2017 Magnesium 1.7 mg/dL Normal 1.7-2.3 [facility] Comment on above: Performed By: #### P T, PTT, MG1 ####[facility] [place], [place] [phone] PROGRESSon 10-12-2017 PROGRESS HNO ID: [id number] thor: Feliciano Santanaervice: (none)Author Type: PhysicianType: Progress NotesFiled: 10/12/2017 1:40 PMNote Text:STAFF UROLOGY NOTE:Patient's Hb dropped nearly 2 grams post-op and his urine was too bloodythis morning for voiding trial or discharge. Will plan to keep in houseanother day.Feliciano Schroeder, MDDirector, Surgical Stone Disease, [facility]rologic InstituteProfessor of Surgery, [facility] of MedicinePager [phone] Normal [facility] PROGRESS HNO ID: [id number] thor: Shelly (Industrial Relations Worker) O'NeillService: UrologyAuthor Type: Nurse PractitionerType: Progress NotesFiled: 10/12/2017 1:31 PMNote Text:UROLOGY SERVICE PROGRESS NOTEName: Darrell CmGisselleed: G090 013/V483-83DEL: [id number]: October 12, 2017ASSESSENA AND PLANDarrell Emmanuelle Nelson is a 67 year old male with history of HTN, nephrolithiasisnow POD#1 s/p PCNL and R JJ stent placement.#Neuro-Pain controlled on Tylenol#CV/Cytu-TAF-Gtp stable#GI-Diet - GI Soft/regular diet; tolerating without N/V+Flatus. No BM.#-Scr 1.00-UOP good-Christian: draining conference assistant red urine#FEN-IVF NS @ 125 ml/hr#Activity - [...] lb 5.9 oz) SpO2 95% BMI 26.05 kg/a4Seayw and OutputIntake/Output Summary (Last 24 hours) at 10/12/17 1302Last data filed at 10/12/17 1000 Gross per 24 hourIntake 4023 mlOutput 1975 mlNet 2048 mlDrains:NoneUrine: 1625ccPhysical ExamGeneral: Well appearing male in NADHEENT: Normocephalic, atraumaticCV:: RRR, hemodynamically stable, well-perfusedResp: breathing comfortably on RA.GI: Soft, nontender, nondistended.: Christian catheter draining conference assistant red urineExtremities: No cyanosis or clubbing, No [...] mL ORAL q 6 H PRNphenol 1 [place] (CHLORASEPTIC) 1 [place] MUCOUS MEMBRANE (TOPICAL MOUTH ANDTHROAT) q 2 H PRNsimethicone, chewable 80 mg tab(s) (MYLICON) 80 mg ORAL q 8 H PRNoxybutynin 5 mg tab(s) (DITROPAN) 5 mg ORAL q 8 H PRNoxyCODONE IR 5-10 mg tab(s) (ROXICODONE) 5-10 mg ORAL q 4 H PRNNo past medical history on file.[facility] CenterXR 10/11/17IMPRESSION:NO ACUTE DISEASESIGNATURE: Shelly Cote CNP PAGER: [phone]: October 12, 2017TIME: 11:15amPlease page [phone] on weekends and after 4pm on weekdays Normal [facility] PROGRESS HNO ID: [id number] thor: Miguel (Res) BrykService: UrologyAuthor Type: ResidentType: Progress NotesFiled: 10/12/2017 6:47 AMNote Text:UROLOGY RESIDENT PROGRESS NOTEName: Darrell CmdBed: G090 013/B537-39PJI: [id number]: October 12, 2017 =====SUBJECTIVE- no acute events overnight-Pain: controlled-N/V : No- Tolerated clears, eager for food =====OBJECTIVEVital SignsPatient Vitals for the past 8 hrs: BP Temp Temp src Pulse Resp SpO2 Height Fhvwyq49/10/18 1922 148/81 36.7 ?C (98.1 ?F) Oral [...] mL ORAL q 6 H PRNphenol 1 [place] (CHLORASEPTIC) 1 [place] MUCOUS MEMBRANE (TOPICAL MOUTH ANDTHROAT) q 2 [...] be discussed with staff Dr. Schroeder. ========Miguel J. Bryk, M.D.Urology PGY-2Pager: [phone] 2017Overnight and on weekends please page [phone] Normal [facility] Protimeon 10-12-2017 INR Coag RelTime (Bld) 1.0 {INR} Normal 0.9-1.3 [facility] Comment on above: Result Comment: Laisha min K Antagonist (VKA) Therapeutic Range: INR 2 to 3 (Target INR of 2.5)Note: For patients treated with VKA drugs, such as warfarin, the [employer] 2012 Guideline recommends [...] of 2.5 to 3.5 (target INR of 3).Chasett GH, et al. Chest 2012, 141:7S-47SNishimura RA, et al. [facility] 2017, 70: 252-289 Performed By: #### P T, PTT, MG1 ####[facility] [address] [place], [place] [phone] PT Sec 10.8 sec Normal 9.7-13.0 [facility] Comment on above: Performed By: #### P T, PTT, MG1 ####[facility] [address] [place], [place] [phone] ANES Woody 10-11-2017 ANES POST HNO ID: [id number] thor: Teresita RosadoSer: AnesthesiologyAuthor Type: PhysicianType: Anesthesia [...] 11, 2017 : 4:07 PM PAGER/CONTACT #: [phone] Normal [facility] BRIEF OP NOTon 10-11-2017 BRIEF OP NOT HNO ID: [id number] thor: Miguel (Sudeep) Vernaervice: UrologyAuthor Type: ResidentType: Brief Op NoteFiled: 10/11/2017 3:17 PMNote Text:UROLOGY BRIEF OPERATIVE NOTELOG ID: [id number]/Procedure Date: 10/11/2017Incision/Procedure Start Time: 1:38 PMIncision Close/Procedure [...] 30 FrenchTract Dilation Device: BalloonSurgeon(s)/Proceduralist (s) and Calculus Professor(s):Surgeon(s) and Role: * Feliciano Schroeder - Primary * Miguel Fritz) Benny - Resident - Assisting * Damon Garcias (Fel) - FellowNo Additional StaffAnesthesia: GeneralFLUIDSIntake: 1200ccUrine Output: n/a, irrigationEstimated Blood Loss: 50 mlsAccidental punctures or Lacerations: noneComplications: NoneDrains: Christian, 20fr coude tipImplants: [id number] JJ ureteral stentCultures: NoneFindings: Soft stones in R Renal pelvis and R lower pole (>3cm). Lowerpole access. Stone free at end of the case.Specimens:Specimen ID Type Site Comments Sent Toother Stone stones sent to PACU with patient OtherPost-Op Plan of Care:To RNFSIGNATURE: Miguel Zapata MD PATIENT NAME: Darrell ElizaldeATE: October 11, 2017 : 3:11 PM PAGER/CONTACT #: [phone] after hours issues, please call the on-call urology pager [phone] Normal [facility] CBC and Differentialon 10-11 Abs Baso 0.03 k/uL Normal <0.11 [facility] Comment on above: Performed By: #### C BCDIF ####[facility] [address] [place], [place] [phone] Abs [place] 1.18 k/uL High <0.87 [facility] Comment on above: Performed By: #### C BCDIF ####[facility] [address] [place], [place] [phone] Abs Neut 12.38 k/uL High 1.45-7.50 [facility] Comment on above: Performed By: #### C BCDIF ####[place] [address] [place], [place] [phone] Basophils/100 WBC Auto (Bld) 0.2 % Normal [facility] Comment on above: Performed By: #### C BCDIF ####[place] [address] [place], [place] [phone] DTYPE Auto Diff Normal [facility] Comment on above: Performed By: #### C BCDIF ####[place] [address] [place], [place] [phone] Eosinophils 0.06 10*3/uL Normal <0.46 [facility] Comment on above: Performed By: #### C BCDIF ####[place] [address] [place], [place] [phone] Eosinophils/100 leukocytes 0.4 % Normal [facility] Comment on above: Performed By: #### C BCDIF ####[place] [address] [place] [phone] Erythrocyte distribution width Auto Ratio (RBC) 12.4 % Normal 11.5-15.0 [facility] Comment on above: Performed By: #### C BCDIF ####[place] [address] [place], [place] [phone] Erythrocytes (RBC) 0.0 /100 WBC Normal 0 [facility] Comment on above: Performed By: #### C BCDIF ####[place] [address] [place], [place] [phone] Erythrocytes (RBC) 10*6/uL Normal <0.01 [facility] Comment on above: Performed By: #### C BCDIF ####[place] [address] [place], [place] [phone] Erythrocytes (RBC) 4.42 10*6/uL Normal 4.20-6.00 [facility] Comment on above: Performed By: #### C BCDIF ####[place] [address] [place], [place] [phone] Hematocrit (HCT) 39.7 % Normal 39.0-51.0 [facility] Comment on above: Performed By: #### C BCDIF ####[place] [address] [place] [phone] Hemoglobin mass conc (Bld) 13.7 g/dL Normal 13.0-17.0 [facility] Comment on above: Performed By: #### C BCDIF ####[place] [address] [place] [phone] Lymphocytes 2.81 10*3/uL Normal 1.00-4.00 [facility] Comment on above: Performed By: #### C BCDIF ####[place] [address] [place] [phone] Lymphocytes/100 leukocytes 17.1 % Normal [facility] Comment on above: Performed By: #### C BCDIF ####[place] [address] [place] [phone] MCH 31.0 pG Normal 26.0-34.0 [facility] Comment on above: Performed By: #### C BCDIF ####[place] [address] [place] [phone] MCHC mass conc (RBC) 34.5 g/dL Normal 30.5-36.0 [facility] Comment on above: Performed By: #### C BCDIF ####[place] [address] [place] [phone] MCV 89.8 fL Normal 80.0-100.0 [facility] Comment on above: Performed By: #### C BCDIF ####[place] [address] [place] [phone] Monocytes/100 leukocytes 7.2 % Normal [facility] Comment on above: Performed By: #### C BCDIF ####[place] [address], [place] [phone] Neutrophils/100 WBC Auto (Bld) 75.1 % Normal [facility] Comment on above: Performed By: #### C BCDIF ####[address] [phone] Platelet mean volume (PMV) 11.3 fL Normal 9.0-12.7 [facility] Comment on above: Performed By: #### C BCDIF ####[address] [phone] Platelets 147 10*3/uL Low 150-400 [facility] Comment on above: Performed By: #### C BCDIF ####[address] [phone] WBC (Leukocytes) 16.46 10*3/uL High 3.70-11.00 [facility] Comment on above: Performed By: #### C BCDIF ####[address] [phone] Calculi Analysison 8 Calculus Type stone Normal [facility] Comment on above: Performed By: #### I CA, CBCDIF, VITD, PTHI, CMP, URIC ####[place] [address] [place], [place] [phone] Note (NOTE) Normal [facility] Comment on above: Result Comment: Calc ulus Color: OFF WHITECalculus Size & Weight: MULTIPLE PIECES, 0.5788 GRAMSComposition: CALCIUM PHOSPHATE - 60% CALCIUM OXALATE MONOHYDRATE - 30% MINOR COMPONENTS - 10%This test was developed and its performance characteristicsdetermined by the [facility] [place] ([facility]).It has not been cleared or approved by the FDA.[facility] is regulated under CLIA as qualified to performhigh-complexity testing.This test is used for clinical purposes. It should not be regarded asinvestigational or for research. Performed By: #### I CA, CBCDIF, VITD, PTHI, CMP, URIC ####[facility] [address] [place], [place] [phone] NURSING PROGon 10-11-2017 NURSING PROG HNO ID: [id number] thor: Melita TenorioRn) EMILIANO Loyaervice: (none)Author Type: Registered NurseType: Nursing Progress NoteFiled: 10/11/2017 8:01 PMNote Text:Admission/Transfer NotePATIENT NAME: Darrell CmdMRN: [id number] admitted from PACU via stretcher in stable condition.Actions taken: Patient oriented to room, call light function, prescribedactivities, Patient rights and Quiet at night.This note was completed by: Melita Loya RN [facility] NURSING PROG HNO ID: [id number] thor: EMILIANO So Rnervice: NursingAuthor Type: Registered NurseType: Nursing Progress NoteFiled: 10/11/2017 10:50 AMNote Text:PRE OP LEARNING ASSESSMENTPROCEDURE/SURGERY: SURGERY: PreopREADINESS TO LEARN: InterestedCOGNITIVE ABILITY: Alert and orientedMOTIVATION TO LEARN: EagerFAMILY SUPPORT: High - Very involved in pt carePATIENT LEARNS BEST BY: Multiple MethodsFACTORS AFFECTING LEARNING: NonePHYSICAL LIMITATIONS AFFECTING LEARNING: NoneElectronically Signed By: May Moffett RN In Department: HOSPMAIN M023 [facility] OPERATIVE NOon 10-11-2017 OPERATIVE NO HNO ID: [id number] thor: Feliciano Santanaervice: UrologyAuthor Type: PhysicianType: Operative ReportFiled: 10/12/2017 9:11 AMNote Text:OPERATIVE/PROCEDURE REPORTLOG ID: [id number]/Procedure Date: 10/11/2017Incision/Procedure Start Time: 1:38 PMIncision Close/Procedure End Time: 3:13 PMSurgeon(s)/Proceduralist(s) and Calculus Professor(s):Surgeon(s) and Role: * Feliciano Schroeder - Primary [...] and draped in the standard sterile fashion.First oracle fusion developer images were obtained noting two opacities in [...] pulled out through theurethral meatus to gain ajtnjfm-gfy-ikugwzt access.A glide catheter was used to exchange the kegrzqu-lcl-rauravj guidewirefor an Amplatz superstiff wire. The ureteroscope was re-inserted to theaccessed calyx. An 8/10 Fr dilator was then used to gently dilate thetract. The tract was incised at the skin for 10 mm. The Bard X-Forceballoon was advanced over the wire and [...] Garcias and Dr. Zapata.Miguel Zapata M.D.Urology PGY-2Pager: [phone] [phone] PMOvernight and on weekends please page [phone] Alexandre, MDDirector, Surgical Stone Disease, [facility]rologic ColmarProfessor of Surgery, [facility] of MedicinePager [phone]/12/2017 Normal [facility] PROGRESSon 10-11-2017 PROGRESS HNO ID: [id number] thor: Tyler (Res) Cabrera PalaciosService: Pediatric UrologyAuthor Type: ResidentType: Progress NotesFiled: [...] mL ORAL q 6 H PRNphenol 1 [place] (CHLORASEPTIC) 1 [place] MUCOUS MEMBRANE (TOPICAL MOUTH ANDTHROAT) q 2 [...] lb 5.9 oz) SpO2 99% BMI 26.05 kg/k1MSTVTGLV EXAM:GENERAL: no distressNEURO: LWLMKh2XPTRS: breathing comfortably on 2LCARDIAC: warm and well perfused throughoutABDOMEN: soft, mild distended, non tender.WOUND: CDIGU: Christian catheter present, red urine no clotsLABSCBC, Coags, BMP, Mg, PhosRecent Labs 01/10/830083IFZ 16.46*HB 13.7HCT 39.7PLT 147*A/P:Darrell Nelson is a [...] routine teachingDischarge planning - pendingTyler Ramos MD.Pg [phone] Normal [facility] PT EDon 10-11-2017 PT ED HNO ID: [id number] thor: Ccf ProviderService: (none)Author Type: PhysicianType: Patient EducationFiled: 10/11/2017 7:15 PMNote Text:[facility] HospitalPatient Education Report Name: DARRELL NELSON Date: 10/11/2017 Time: 7:15 PMPatient Ordered Video: Inpatient Fallsfrom [id number] via phone number [phone] at 7:15 PM Normal [facility] XR CHEST 1V FRONTAL PORTon [...] ORDOÑEZ MD on Oct 11 2017 4:13PM [id number] Normal [facility] CNCOon 10-05-2017 CNCO Letter Text10/05/2017M teresa Cmd[address] [id number] Mr. Nelson:Your recent 24 hour urine test [...] for future kidney stones. You may contact [facility] [phone] with any questions or concerns.Sincerely,Feliciano Schroeder M.D.ELECTRONICALLY SIGNED Normal [facility] CBC and Differentialon 09-12 Abs Baso 0.04 k/uL Normal <0.11 [facility] Comment on above: Performed By: #### I CA, CBCDIF, VITD, PTHI, CMP, URIC ####[facility] [address] [place], [place] [phone] Abs [place] 1.26 k/uL High <0.87 [facility] Comment on above: Performed By: #### I CA, CBCDIF, VITD, PTHI, CMP, URIC ####[facility] [address] [place], [place] [phone] Abs Neut 6.39 k/uL Normal 1.45-7.50 [facility] Comment on above: Performed By: #### I CA, CBCDIF, VITD, PTHI, CMP, URIC ####[facility] [place], [place] [phone] Basophils/100 WBC Auto (Bld) 0.3 % Normal [facility] Comment on above: Performed By: #### I CA, CBCDIF, VITD, PTHI, CMP, URIC ####[place] [address] [place] [phone] DTYPE Auto Diff Normal [facility] Comment on above: Performed By: #### I CA, CBCDIF, VITD, PTHI, CMP, URIC ####[place] [address] [phone] Eosinophils 0.10 10*3/uL Normal <0.46 [facility] Comment on above: Performed By: #### I CA, CBCDIF, VITD, PTHI, CMP, URIC ####[place] [address] [phone] Eosinophils/100 leukocytes 0.9 % Normal [facility] Comment on above: Performed By: #### I CA, CBCDIF, VITD, PTHI, CMP, URIC ####[place] [address] [phone] Erythrocyte distribution width Auto Ratio (RBC) 12.9 % Normal 11.5-15.0 [facility] Comment on above: Performed By: #### I CA, CBCDIF, VITD, PTHI, CMP, URIC ####[place] [address] [phone] Erythrocytes (RBC) 0.0 /100 WBC Normal 0 [facility] Comment on above: Performed By: #### I CA, CBCDIF, VITD, PTHI, CMP, URIC ####[place] [address] [phone] Erythrocytes (RBC) 4.74 10*6/uL Normal 4.20-6.00 [facility] Comment on above: Performed By: #### I CA, CBCDIF, VITD, PTHI, CMP, URIC ####[place] [address] [phone] Erythrocytes (RBC) 10*6/uL Normal <0.01 [facility] Comment on above: Performed By: #### I CA, CBCDIF, VITD, PTHI, CMP, URIC ####[place] [phone] Hematocrit (HCT) 43.7 % Normal 39.0-51.0 [facility] Comment on above: Performed By: #### I CA, CBCDIF, VITD, PTHI, CMP, URIC ####[place] [address] [phone] Hemoglobin mass conc (Bld) 14.2 g/dL Normal 13.0-17.0 [facility] Comment on above: Performed By: #### I CA, CBCDIF, VITD, PTHI, CMP, URIC ####[place] [address] [place] [phone] Lymphocytes 3.64 10*3/uL Normal 1.00-4.00 [facility] Comment on above: Performed By: #### I CA, CBCDIF, VITD, PTHI, CMP, URIC ####[place] [address] [place] [phone] Lymphocytes/100 leukocytes 31.8 % Normal [facility] Comment on above: Performed By: #### I CA, CBCDIF, VITD, PTHI, CMP, URIC ####[place] [address] [phone] MCH 30.0 pG Normal 26.0-34.0 [facility] Comment on above: Performed By: #### I CA, CBCDIF, VITD, PTHI, CMP, URIC ####[place] [address] [place] [phone] MCHC mass conc (RBC) 32.5 g/dL Normal 30.5-36.0 [facility] Comment on above: Performed By: #### I CA, CBCDIF, VITD, PTHI, CMP, URIC ####[place] [address] [place], [place] [phone] MCV 92.2 fL Normal 80.0-100.0 [facility] Comment on above: Performed By: #### I CA, CBCDIF, VITD, PTHI, CMP, URIC ####[place] [address] [phone] Monocytes/100 leukocytes 11.0 % Normal [facility] Comment on above: Performed By: #### I CA, CBCDIF, VITD, PTHI, CMP, URIC ####[place] [address] [phone] Neutrophils/100 WBC Auto (Bld) 56.0 % Normal [facility] Comment on above: Performed By: #### I CA, CBCDIF, VITD, PTHI, CMP, URIC ####[place] [address] [phone] Platelet mean volume (PMV) 11.2 fL Normal 9.0-12.7 [facility] Comment on above: Performed By: #### I CA, CBCDIF, VITD, PTHI, CMP, URIC ####[place] [address] [phone] Platelets 206 10*3/uL Normal 150-400 [facility] Comment on above: Performed By: #### I CA, CBCDIF, VITD, PTHI, CMP, URIC ####[place] [address] [phone] WBC (Leukocytes) 11.43 10*3/uL High 3.70-11.00 [facility] Comment on above: Performed By: #### I CA, CBCDIF, VITD, PTHI, CMP, URIC ####[facility] [address] [place], [place] [phone] OSMANOVon 09-12-2017 CNOV Office Visit (UROMEMO) OMARDARRELL ([id number]) 1950 MDate Time Provider Wsdcdcconu81/12/17 10:30 AM FELICIANO SCHROEDER During your visit today, we recorded the following information about you: Pulse Blood pressure Weight Height 82/minute 169/91 79.4 kg 1.778 Marielena Schroeder MD 09/12/2017 7:38 PM SignedBasic HPI: 67 year old male who comes in for kidney stone management. Patienthas a history of kidney stones for over 20 years. Patient has had ESWL in thelea [facility]L 1.5 years [...] Urine Negative NegativeKetones, Urine Negative 1+ (A)Specific [place], Ur 1.005 - 1.030 1.016Hemoglobin/Blood,Ur Negative 2+ [...] with more than 50% of the total nhff-mw-cchu time ofthe visit devoted to patient counseling/coordination of care.Feliciano Schroeder, MDDirector, Surgical Stone Disease, [facility] InstituteProfessor of Surgery, [facility] HospitalPager [id number]/12/2017Bonita Ozuna CNP 09/12/2017 7:38 PM SignedUROLOGY SURGICAL HANDamp;PSERVICE DATE: 09/12/2017REFERRING PROVIDER: Cleveland Llanes MD[address] [facility] [address]TNY: No PcpGENDER:SUBJECTIVECHIEF COMPLAINT: Pre-op examHISTORY OF PRESENT [...] symtoms or problems.No history of angina, CHF, MS, cardiac surgery of stents.Respiratory: Negative for current cough, dyspnea. No hx of pneumonia in thepast six weeksPositive: PND, sinus drainage from allergiesGastrointestinal: No history of GERD, PUD, abd pain, difficulty swallowing, GIbleed.Renal: +stonesMusculoskeletal: Negative for joint pain or swelling, back pain or muscle pain.Skin: Negative for lesions, rash and itching.Psychological: No history of psychiatric symptoms or problems.Neurologic: No history of TIA's, stroke, GOLD NIB GRINDER tumor, impaired sensorium,hemiplegia, paraplegia or quadriplegia. No [...] 10ANDquot;) Wt 79.4 kg (175 lb) BMI25.11 kg/z3Pokzgjrqxzj Max: @TMAXREFRESH(24)@ALLERGIES:ISIS RGIESNo Known AllergiesLABS:No results found for: BUNNo results found for: CREAshley results found for: PSAGlucose, Urine (mg/dL)Date Value09/12/2017 Negative Bilirubin, Urine (no units)Date Value09/12/2017 Negative Ketones, Urine (no units)Date Value09/12/2017 1+ (A) Specific [place], Ur (no units)Date Value09/12/2017 1.016 Hemoglobin/Blood ,Ur [...] Calculus, kidney (primary encounter diagnosis)N20.1 Calculus of skjlcyW45.9 Right flank painI10 Essential hsflzqoibmgwI83.1 Family history of nihkkavtcytfemgM15.49 Family history of bxtnwvymeziukcmqqalQ91.9 Low vitamin D zptswU33.90 Abnormal urinalysisATRIUM HEALTH HARR[facility] UROLOGICAL AND KIDNEY INSTITUTEPRE-OP NOTEDate of Procedure: [...] 11:45 AM PAGER/CONTACT #:Referring Provider: CLEVELAND LLANES [[id number]]Allergies As of Date: 09/12/2017(No Known Allergies)Date Reviewed: 09/12/2017Reviewed by: Az Ann MA - Fully AssessedPrimary Visit Diagnosis:Calculus, kidney [N20.0] Other Visit Diagnoses:Calculus of ureter [N20.1] Right flank pain [R10.9] Essential hypertension [I10] Family history of nephrolithiasis [Z84.1] Family history of hyperparathyroidism [Z83.49] Low vitamin D level [E55.9] Abnormal urinalysis [R82.90]Order(s):UA CHEMSTRIP ONLY [SQUA] Order #: [id number] FUTURE UA CHEMSTRIP ONLY [SQUA] Order #: [id number]. #:[id number] VITAMIN D 25 HYDROXY [SQVITD] Order #: [id number] FUTURE CBC + DIFF [SQCBCDIF] Order #: [id number] FUTURE COMP METABOLIC PANEL [SQCMP] Order #: [id number] FUTURE PTH INTACT BLD [SQPTHI] Order #: [id number] FUTURE URIC ACID BLOOD [SQURIC] Order #: [id number] FUTURE TYPE + SCREEN,30 DAY [JSFNZC12] Order #: [id number] FUTURE CONFIRM BLOOD TYPE [SQCONABO] Order #: [id number] FUTURE ECG COMPLETE W INTERPRETATION [ECG01] Order #: [id number] FUTURE [facility] [1728091] Order #: [id number] CALCIUM IONIZED B [SQICA] Order #: [id number] FUTURE URINE CULTURE [SQURCUL] Order #: [id number]. #:[id number] iptions as of 09/12/2017 Sig: MULTIVITAMIN TABLET [...] Disposition History RecordedLetter TextDecember 2016Cleveland Llanes MD[address] [place] [address]HKJW: Katherine Nelson NO: [id number] OF SERVICE: 09/12/2017Dear Dr. Llanes,I recently saw your patient, Mr. Nelson, [facility]Enclosed is a copy of my clinic note which should be self-explanatoryregarding findings, recommendations, and treatment plan. Please don'thesitate to contact me if there are questions.Sincerely,Feliciano Schroeder M.D.Staff Urologist, [facility] HospitalELECTRONICALLY SIGNEDcc: Abigail Sanchez M.D., [facility] [place] [address]Nbcpasqeq Number: [id number] Status:Closed by FELICIANO SCHROEDER MD on 09/12/17 Normal [facility] Calcium, Ionizedon 7 Calcium 1.14 mmol/L Normal 1.08-1.30 [facility] Comment on above: Performed By: #### I CA, CBCDIF, VITD, PTHI, CMP, URIC ####[place] [address]C[place], [place] [phone] Calcium, Ionized 1.20 mmol/L Normal 1.08-1.30 [facility] Comment on above: Performed By: #### I CA, CBCDIF, VITD, PTHI, CMP, URIC ####[facility]CCh[address] [place], [place] [phone] Comp Metabolic Panelon 09-12 Alanine aminotransferase (ALT) 43 U/L Normal 10-54 [facility] Comment on above: Performed By: #### I CA, CBCDIF, VITD, PTHI, CMP, URIC ####[facility] [address] AveCCh[address] [place], [place] [phone] Albumin 3.8 g/dL Low 3.9-4.9 [facility] Comment on above: Performed By: #### I CA, CBCDIF, VITD, PTHI, CMP, URIC ####[place] [address]CCh[place], [place] [phone] Alkaline phosphatase (ALP) 98 U/L Normal 36-108 [facility] Comment on above: Performed By: #### I CA, CBCDIF, VITD, PTHI, CMP, URIC ####[place] [address] [place] [phone] Anion gap 15 mmol/L Normal 9-18 [facility] Comment on above: Performed By: #### I CA, CBCDIF, VITD, PTHI, CMP, URIC ####[place] [address]CMat[address] [place] [phone] Aspartate aminotransferase (AST) 40 U/L Normal 14-40 [facility] Comment on above: Performed By: #### I CA, CBCDIF, VITD, PTHI, CMP, URIC ####[place] [address] [place] [phone] Bilirubin (total) 0.5 mg/dL Normal 0.2-1.3 [facility] Comment on above: Performed By: #### I CA, CBCDIF, VITD, PTHI, CMP, URIC ####[place] [address] [address] [place] [phone] Calcium 9.3 mg/dL Normal 8.5-10.2 [facility] Comment on above: Performed By: #### I CA, CBCDIF, VITD, PTHI, CMP, URIC ####[place] [address] [phone] Chloride 100 mmol/L Normal 97-105 [facility] Comment on above: Performed By: #### I CA, CBCDIF, VITD, PTHI, CMP, URIC ####[place] [address] [place] [phone] CO2 26 mmol/L Normal 22-30 [facility] Comment on above: Performed By: #### I CA, CBCDIF, VITD, PTHI, CMP, URIC ####[place] [address] [place] [phone] Creatinine 1.05 mg/dL Normal 0.73-1.22 [facility] Comment on above: Performed By: #### I CA, CBCDIF, VITD, PTHI, CMP, URIC ####[facility] [address]CCh[address] [place], [place] [phone] eGFR (non-black) mL/min/{1.73_m2} Normal [facility] Comment on above: Performed By: #### I CA, CBCDIF, VITD, PTHI, CMP, URIC ####[facility]CCh[address] [place], [place] [phone] Result Comment: eGFR (Estimated GFR) Units of [...] Glucose mass conc 92 mg/dL Normal 74-99 [facility] Comment on above: Result Comment: The [place] Diabetes Association (ADA) provides guidance for cutoff [...] Standards of Medical Care in Diabetes 2016, [place] [employer] Association. Diabetes Care. 2016.39(Suppl 1). Performed By: #### I CA, CBCDIF, VITD, PTHI, CMP, URIC ####[facility] [address] AveCBrian V[place] [phone] Potassium molar conc 4.0 mmol/L Normal 3.7-5.1 [facility] Comment on above: Performed By: #### I CA, CBCDIF, VITD, PTHI, CMP, URIC ####[place] [address] [place], [place] [phone] Protein 7.5 g/dL Normal 6.3-8.0 [facility] Comment on above: Performed By: #### I CA, CBCDIF, VITD, PTHI, CMP, URIC ####[place] [phone] Sodium 141 mmol/L Normal 136-144 [facility] Comment on above: Performed By: #### I CA, CBCDIF, VITD, PTHI, CMP, URIC ####[place] [phone] Urea nitrogen 10 mg/dL Normal 9-24 [facility] Comment on above: Performed By: #### I CA, CBCDIF, VITD, PTHI, CMP, URIC ####[place] [phone] Confirm Blood Typeon 017 ABO/RH(D) Positive Normal [facility] Comment on above: Performed By: #### C ONABO ####[place] [phone] HISTORY PHYSICALon 7 HISTORY PHYSICAL HNO ID: [id number] thor: Bonita ([facility]) DigennaroService: (none)Author Type: Nurse PractitionerType: HANDPFiled: 09/12/2017 7:38 PMNote Text:UROLOGY SURGICAL HANDPSERVICE DATE: 09/12/2017REFERRING PROVIDER: Cleveland Llanes MD[address] [place] [address]SIO: No PcpGENDER:SUBJECTIVECHIEF COMPLAINT: Pre-op examHISTORY OF PRESENT [...] symtoms or problems.No history of angina, CHF, MS, cardiac surgery of stents.Respiratory: Negative for current cough, dyspnea. No hx of pneumonia inthe past six weeksPositive: PND, sinus drainage from allergiesGastrointestinal: No history of GERD, PUD, abd pain, difficultyswallowing, GI bleed.Renal: +stonesMusculoskeletal: Negative for joint pain or swelling, back pain or musclepain.Skin: Negative for lesions, rash and itching.Psychological: No history of psychiatric symptoms or problems.Neurologic: No history of TIA's, stroke, GOLD NIB GRINDER tumor, impaired sensorium,hemiplegia, paraplegia or quadriplegia. No [...] ) Wt 79.4 kg (175 lb) BMI25.11 kg/w7Dbigbzmmbpw Max: @TMAXREFRESH(24)@ALLERGIES:ISIS RGIESNo Known AllergiesLABS:No results found for: BUNNo results found for: CREATNo results found for: PSAGlucose, Urine (mg/dL)Date Value09/12/2017 Negative Bilirubin, Urine (no units)Date Value09/12/2017 Negative Ketones, Urine (no units)Date Value09/12/2017 1+ (A) Specific [place], Ur (no units)Date Value09/12/2017 1.016 Hemoglobin/Blood ,Ur [...] Calculus, kidney (primary encounter diagnosis)N20.1 Calculus of rnlewqV40.9 Right flank painI10 Essential yffstkospjfvJ22.1 Family history of tncgvwsprhrtsgvM76.49 Family history of gntylcypowjubzjuwrrG77.9 Low vitamin D nejywS02.90 Abnormal urinalysisGLICKGILBERT UROLOGICAL AND KIDNEY INSTITUTEPRE-OP NOTEDate of Procedure: [...] 2017 : 11:45 AM PAGER/CONTACT #: Dong [facility] 09-12-2017 HOSP Patient Update ([facility]) [facility]ARRE[facility] NELSON ([id number]) 1950 [facility] Uqbmjijdwb95/12/17 ASHTYN RABAGO (RN) [facility] During your visit today, we recorded the following information about you:Allergies As of Date: 09/12/2017(No Known Allergies)Date Reviewed: 09/12/2017Reviewed by: Az Ann MA - Fully AssessedOrder(s):SURGICAL REQUEST - ELECTIVE [[id number]] Order #: [id number]: 1Prescriptions as of 09/12/2017 Sig: POTASSIUM CITRATE [...] FOR* More...Follow-up and Disposition History RecordedEncounter Number: [id number] Status:Closed by ASHTYN RABAGO on 09/12/17 Normal [facility] Patient:Darrell Nelson LMRN: Height:5' 10 (1.778 m)Weight:175 lb (79.379 kg)Outpatient Medications as of 10/11/17:potassium citrate ER (UROCIT-K) 10 mEq (1,080 mg) TbERtamsulosin ER (FLOMAX) 0.4 mg qh55tnvkrxxc (COZAAR) 25 mg tabletmultivitamin tabletAdmission/Clinic Administered Medications as of 10/11/17:0.9% NaCl 2-10 mLlactated ringers infusionceFAZolin 2 g in dextrose (iso-osmotic) 100 mL (ANCEF KEFZOL)Problem List:Calculus, kidney [N20.0]Calculus of ureter [N20.1]Right [...] Urine Negative NegativeKetones, Urine Negative 1+ (A)Specific [place], Ur 1.005 - 1.030 1.016Hemoglobin/Blood,Ur Negative 2+ [...] or tremorsOTHER: patient presents for surgical consultSara EMILIANO RabagoTA UROLOGY NOTE:I personally interviewed the patient, examined, [...] with more than 50% of the total tssd-ft-mzdy time of thevisit devoted to patient counseling/coordination of care.Feliciano Schroeder, MDDirector, Surgical Stone Disease, [facility]rologic InstituteProfessor of Surgery, [facility] HospitalPager [phone]/12/2017Previous VersionHeisabela Ozuna CNP 09/12/2017 7:38 PM SignedUROLOGY SURGICAL HANDPSERVICE DATE: 09/12/2017REFERRING PROVIDER: Cleveland Llanes MD[address] [place] [address]ODR: No PcpGENDER:SUBJECTIVECHIEF COMPLAINT: Pre-op examHISTORY OF PRESENT [...] symtoms or problems.No history of angina, CHF, MS, cardiac surgery of stents.Respiratory: Negative for current cough, dyspnea. No hx of pneumonia in the pastsix weeksPositive: PND, sinus drainage from allergiesGastrointestinal: No history of GERD, PUD, abd pain, difficulty swallowing, GIbleed.Renal: +stonesMusculoskeletal: Negative for joint pain or swelling, back pain or muscle pain.Skin: Negative for lesions, rash and itching.Psychological: No history of psychiatric symptoms or problems.Neurologic: No history of TIA's, stroke, GOLD NIB GRINDER tumor, impaired sensorium,hemiplegia, paraplegia or quadriplegia. No [...] ) Wt 79.4 kg (175 lb) BMI 25.11kg/c2Pgyabqmamtd Max: @TMAXREFRESH(24)@ALLERGIES:ISIS RGIESNo Known AllergiesLABS:No results found for: BUNNo results found for: CREATNo results found for: PSAGlucose, Urine (mg/dL)Date Value09/12/2017 Negative Bilirubin, Urine (no units)Date Value09/12/2017 Negative Ketones, Urine (no units)Date Value09/12/2017 1+ (A) Specific [place], Ur (no units)Date Value09/12/2017 1.016 Hemoglobin/Blood ,Ur [...] Calculus, kidney (primary encounter diagnosis)N20.1 Calculus of szktnxP53.9 Right flank painI10 Essential ogzjvswhliwiH38.1 Family history of msmylxnacxqikgjL48.49 Family history of luvioirifbvptwifxghF35.9 Low vitamin D xpbkmG90.90 Abnormal urinalysisGLICKMAN UROLOGICAL AND KIDNEY INSTITUTEPRE-OP NOTEDate [...] CNPElectronically signedSIGNATURE: Bonita Ozuna CNP PATIENT NAME: Darrlel ElizaldeATE: September 12, 2017 : 11:45 AM PAGER/CONTACT #: Dong [facility] PROGRESSon 09-12-2017 PROGRESS HNO ID: [id number] thor: Feliciano KumarbleService: (none)Author Type: PhysicianType: Progress [...] Urine Negative NegativeKetones, Urine Negative 1+ (A)Specific [place], Ur 1.005 - 1.030 1.016Hemoglobin/Blood,Ur Negative 2+ [...] with more than 50% of the total jkku-cf-xsthnmfl of the visit devoted to patient counseling/coordination of care.Feliciano Schroeder, MDDirector, Surgical Stone Disease, [facility] Urologic InstituteProfessor of Surgery, [facility] MedicinePager [phone]/12/2017 Normal [facility] PTH, Intacton 09-12-2017 PTH, Intact 26 pg/mL Normal 15-65 [facility] Comment on above: Performed By: #### I CA, CBCDIF, VITD, PTHI, CMP, URIC ####[facility] [address] [place], [place] [phone] Type and SCR (30D)on 017 ABO/RH(D) Positive Normal [facility] Comment on above: Performed By: #### T SCR30 ####[address] [phone] Antibody Screen Negative Normal [facility] Comment on above: Performed By: #### T SCR30 ####[place] [phone] Uric Acidon 09-12-2017 Urate 4.9 mg/dL Normal 4.0-8.1 [facility] Comment on above: Performed By: #### I CA, CBCDIF, VITD, PTHI, CMP, URIC ####[place] [phone] Urinalysison 09-12-2017 Bilirubin, Urine Negative Normal Negative [facility] Comment on above: Performed By: #### U A ####[place] [phone] Comments SEE COMMENT Normal [facility] Comment on above: Result Comment: Micr oscopic Examination Performed Performed By: #### U A ####[place] [phone] Erythrocytes (RBC) 10*6/uL Critically abnormal 0-3 [facility] Comment on above: Performed By: #### U A ####[place] [phone] Hemoglobin mass conc (Bld) 2+ Critically abnormal Negative [facility] Comment on above: Performed By: #### U A ####[place] [phone] Leukest 3+ Critically abnormal Negative [facility] Comment on above: Performed By: #### U A ####[address] [phone] pH of blood 7.0 [pH] Normal 4.5-8.0 [facility] Comment on above: Performed By: #### U A ####[address], [place] [phone] Protein, Urine 30 mg/dL Critically abnormal Negative [facility] Comment on above: Performed By: #### U A ####[place] [phone] Specific [place], Ur 1.016 Normal 1.005-1.03 0 [facility] Comment on above: Performed By: #### U A ####[place] [address] [address] [place] [phone] Urine Kelby Comment SEE COMMENT [facility] Comment on above: Result Comment: N/A Performed By: #### U A ####[place] [address] [address] [place] [phone] Urine, clarity Cloudy Critically abnormal Clear [facility] Comment on above: Performed By: #### U A ####[place] [address] [address] [place] [phone] Urine, color Yellow Normal Yellow [facility] Comment on above: Performed By: #### U A ####[place] [address] [place] [phone] Urine, epithelial cells in sediment SEE COMMENT Normal [facility] Comment on above: Result Comment: FewS quamous Epithelial Cells Performed By: #### U A ####[place] [address] [address] [place] [phone] Urine, glucose presence Negative Normal Negative [facility] Comment on above: Performed By: #### U A ####[place] [address] [place] [phone] Urine, ketones presence 1+ Critically abnormal Negative [facility] Comment on above: Performed By: #### U A ####[place] [address] [address] [place] [phone] Urine, nitrite presence Negative Normal Negative [facility] Comment on above: Performed By: #### U A ####[address] [phone] Urine, urobilinogen Normal Normal Normal [facility] Comment on above: Performed By: #### U A ####[address] [phone] WBC (Leukocytes) 10*3/uL Critically abnormal 0-5 [facility] Comment on above: Performed By: #### U A ####[address] [phone] Urine Cultureon 09-12-2017 Urine culture, bacteria Sp. Request/Comment: - Specimen received in preservative Culture Result - No growth (<1,000 CFU/ml) Normal [facility] Comment on above: Performed By: #### U RCUL ####[address] [phone] Vitamin D 25 Hydroxyon 09-12 Vitamin D 25 Hydroxy 38.6 ng/mL Normal 31.0-80.0 [facility] Comment on above: Result Comment: Clas sification of 25 [place] Vitamin D status:Insufficiency/Moderate Deficiency: < or = 30 ng/mLSufficiency/Optimal Levels: 31 to 80 ng/mLToxicity: > 100 ng/mLTest performed by chemiluminescent immunoassay. Performed By: #### I CA, CBCDIF, VITD, PTHI, CMP, URIC ####[facility] [place] [address] [phone] SR-CT Abdomen/Pelvis w/o Con trast IMPORTon 09-07-2017 SR-CT Abdomen/Pelvis w/o Contrast IMPORT Images were obtained outside of [facility] [id number] Normal [facility] Vital Signs Date Time Vital Sign Value Performing Clinician Facility 10-16-2024 08:06-0500 Blood Pressure Location Rock LUJAN [facility] 10-16-2024 08:06-0500 Diastolic blood pressure 100 mm[Hg] Rock COOK [facility] 10-16-2024 08:06-0500 Heart rate 78 /min Rock COOK [facility] 10-16-2024 08:06-0500 Systolic blood pressure 163 mm[Hg] Rock COOK [facility] 03-20-2024 08:14-0400 Diastolic blood pressure 85 mm[Hg] Rock COOK [facility] 03-20-2024 08:14-0400 Heart rate 66 /min Rock COOK [facility] 03-20-2024 08:14-0400 Systolic blood pressure 146 mm[Hg] Rock COOK [facility] 08-23-2023 08:30-0500 Blood Pressure Location Laura Orzech [facility] 08-23-2023 08:30-0500 Diastolic blood pressure 91 mm[Hg] Laura Orzech [facility] 08-23-2023 08:30-0500 Heart rate 88 /min Luara Orzech [facility] 08-23-2023 08:30-0500 Respiratory rate 16 /min Laura Orzech [facility] 08-23-2023 08:30-0500 Systolic blood pressure 151 mm[Hg] Laura Orzech [facility] 08-07-2023 08:45-0500 Body height 172.72 cm Abigail Sanchez Other [facility] Other 08-07-2023 08:45-0500 Body mass index (BMI) [Ratio] 25.18 kg/m2 Abigail Sanchez Other [facility] Other 08-07-2023 08:45-0500 Body weight 75.12 kg Abigail Sanchez Other [facility] Other 08-07-2023 08:45-0500 Diastolic blood pressure 73 mm[Hg] Abigail Sanchez Other [facility] Other 08-07-2023 08:45-0500 SaO2% (BldA) [Mass fraction] 99 % Abigail Sanchez Other [facility] Other 08-07-2023 08:45-0500 Systolic blood pressure 165 mm[Hg] Abigail Sanchez Other [facility] Other 11-17-2022 09:30-0500 Body height 172.72 cm Abigail Sanchez Other [facility] Other 11-17-2022 09:30-0500 Body mass index (BMI) [Ratio] 27.82 kg/m2 Abigail Sanchez Other [facility] Other 11-17-2022 09:30-0500 Body weight 83.01 kg Abigail Sanchez Other [facility] Other 11-17-2022 09:30-0500 Diastolic blood pressure 82 mm[Hg] Abigail Sanchez Other [facility] Other 11-17-2022 09:30-0500 SaO2% (BldA) [Mass fraction] 97 % Abigail Sanchez Other [facility] Other 11-17-2022 09:30-0500 Systolic blood pressure 140 mm[Hg] Abigail Sanchez Other [facility] Other 07-26-2022 13:18-0400 Blood Pressure Location [facility] [place] 07-26-2022 13:18-0400 Diastolic blood pressure 98 mm[Hg] Dharmesh NILL [facility] 07-26-2022 13:18-0400 Heart rate 72 /min Dharmesh NILL [employer] [facility] [place] 07-26-2022 13:18-0400 Respiratory rate 16 /min [employer] [facility] [place] 07-26-2022 13:18-0400 Systolic blood pressure 138 mm[Hg] Dharmesh NILL [employer] [facility] [place] Encounters Encounter Date Encounter Type Care Provider Facility Start: 04-23-2025 ambulatory Rock LUJAN Facility :[facility] Start: 02-14-2025 End: 02-14-2025 ambulatory [facility] Start: 01-30-2025 ambulatory SANJU HOWARD [facility] Start: 01-30-2025 End: 01-30-2025 ambulatory ASHER TORRES [facility] Start: 01-13-2025 End: 01-13-2025 ambulatory [facility] Start: 12-20-2024 End: 12-20-2024 ambulatory [facility] Start: 11-08-2024 End: 11-08-2024 ambulatory [facility] Start: 10-16-2024 End: 10-16-2024 ambulatory Rock LUJAN Facility:[facility] Araujo Start: 10-16-2024 End: 10-16-2024 Patient encounter procedure Rock LUJAN [facility] Start: 03-20-2024 End: 03-20-2024 ambulatory Rock LUJAN Facility:[facility] Start: 03-20-2024 End: 03-20-2024 Patient encounter procedure Rock LUJAN [facility] Start: 08-23-2023 End: 08-23-2023 Patient encounter procedure Laura X Beliach [facility] Start: 08-11-2023 End: 08-11-2023 ambulatory Abigail Sanchez Other [facility] Other Start: 08-11-2023 Telephone encounter Abigail Sanchez [facility] Start: 08-07-2023 End: 08-07-2023 ambulatory Abigail Sanchez Other [facility] Other Start: 08-07-2023 Office outpatient vi sit 15 minutes Abigail Sanchez [facility] Start: 02-08-2023 End: 02-09-[address] ROCK LUJAN Facility:[facility] Start: 11-17-2022 End: 11-17-2022 ambulatory Abigail Sanchez Other [facility] Other Start: 11-17-2022 Encounter for other preprocedural examination Abigail Sanchez [facility] Start: 11-17-2022 Office outpatient vi sit 15 minutes Abigail Sanchez [facility] Start: 11-03-2022 End: 11-04-[address] DENISHA GARCIA Facility:[facility] Start: 08-31-2022 Encounter for preprocedural laboratory examination DR DHARMESH WALTERS . [facility] Start: 08-31-2022 End: 08-31-[address] DHARMESH WALTERS . Facility:[facility] Start: 08-26-2022 End: 08-27-[address] DHARMESH WALTERS . Facility:[facility] Start: 08-26-2022 End: 08-27-2022 Encounter for preprocedural laboratory examination DR DHARMESH WALTERS . Facility:[facility] Start: 07-26-2022 End: 07-26-2022 Patient encounter procedure Dharmesh WALTERS General Surgery [facility] Start: 06-30-2022 Adult health examination Gricelda Sanchez Other [facility] [employer] Other Start: 06-28-2022 End: 06-29-[address] ABIGAIL SANCHEZ Facility:[facility] Start: 04-27-2022 End: 04-27-2022 Patient encounter procedure Rock LUJAN [facility] Start: 04-20-2022 End: 04-21-[address] ROCK LUJAN Facility:[facility] Start: 10-21-2017 End: 10-22-2017 Ambulatory ALEXA GARCIA [facility] Start: 10-13-2017 End: 10-13-2017 Ambulatory FELICIANO SCHROEDER [facility] Start: 10-11-2017 End: 10-13-2017 Ambulatory FELICIANO SCHROEDER [facility] Start: 09-12-2017 End: 09-12-2017 Ambulatory FELICIANO SCHROEDER [facility] Start: 09-12-2017 End: 09-18-2017 Ambulatory FELICIANO SCHROEDER [facility] Procedures Date Procedure Procedure Detail [...] Dharmesh PETERSL Cholecystectomy Rock LUJAN Colonoscopy Dharmesh NILL History of surgical procedure on cervical spine Dharmesh NILL History of surgical procedure on cervical spine Dharmesh NILL Sinus Surgery Rock LUJAN Immunizations Immunization Date Immunization Notes Care Provider [facility] 08-16-2021 COVID-19 Vaccine Pfizer - Documentation Purposes Only Abigail Sanchez Other [facility] 01-07-2021 COVID-19 Vaccine Pfizer - Documentation Purposes Only Abigail Sanchez Other [facility] 12-17-2020 SARS-CoV-2 (COVID-19 ) mRNA BNT-162b2 vax Amicrobe [facility] NEGATED: Highlighted row has not occurred!10-16-2024 influenza virus vaccine, unspecified formulation Rock LUJAN [facility] NEGATED: Highlighted row has not occurred!08-23-2023 influenza virus vaccine, unspecified formulation Amicrobe [facility] Payers Date Payer Category Payer Medicare [id number]. [id number] 1950 Unknown [id number] 2.16.84 [id number] 1950 Unknown [id number] 2.16.84 [id number] 1950 Unknown [id number] 2.16.84 [id number] 1950 Unknown [id number] 2.16.84 [id number] 1950 Unknown [id number] 2.16.84 [id number] 1948 Unknown [id number] 2.16.84 [id number] 1948 Unknown [id number] 2.16.8 [id number] 1950 Unknown [id number] 2.16.8 [id number] 1950 Unknown [id number] 2.16.8 [id number] Social History Date Type Detail Facility Start: 04-27-2022 End: 10-16-2024 Tobacco smoking status Never smoked tobacco (finding) [facility] Tobacco smoking status Never [facility] Sex Assigned At Male [facility] Functional Status Date Assessment Result Facility 10-16-2024 Functional Status N/A [facility] 03-20-2024 Functional Status N/A [facility] 08-23-2023 Functional Status N/A [facility] 07-26-2022 [facility] Status N/A [facility] Status N/A [facility] Clinical Notes 04-27-2022 to 02-14-2025 Note Date & Type Note Facility 02-14-2025 Note [place] [facility] Note Reason for cardiology visit: Follow-up CT surgery evaluation Chief Complaint: No complaint HPI: 02/14/2025 He states that he has been doing well. He denies any chest discomfort at rest or with exertion. He denies exertional dyspnea, orthopnea or paroxysmal nocturnal dyspnea. He denies dizziness, syncope or near syncope. He denies palpitations, legs edema or discomfort on exertion. He continues to be physically active without any symptoms Patient states that he met with cardiothoracic surgeon Dr. Torres but he would like to wait on proceeding with surgery now and to repeat the echo in 6 months He states that he has been checking his blood pressure frequently at home and usually is in the 120/80 01/13/2025 Patient is here today for follow-up [...] Nelson Cancer Mother Rosy Nelson Accidental Brother Allergies Patient has no known allergies. Medications Current Outpatient Medications: losartan (Cozaar) 25 mg tablet, Take 25 mg by mouth in the morning. Patient taking 2 25mg tablets until he finish what he has on hand., Disp: , Rfl: losartan (Cozaar) 50 mg tablet, Take 1 tablet (50 mg) by mouth once daily as directed. (Patient taking differently: Take 50 mg by mouth once daily as directed. Will start 50 mg when he is finished with his bottle of 25mg), Disp: 90 tablet, Rfl: 3 multivitamin tablet, Take 1 tablet by mouth in the morning., Disp: , Rfl: psyllium (Metamucil) 0.4 gram capsule, Take 5 capsules by mouth if needed., Disp: , Rfl: tamsulosin (Flomax) 0.4 mg 24 hr capsule, Take 0.4 mg by mouth 2 times daily., Disp: , Rfl: TURMERIC ORAL, Take by mouth., Disp: , Rfl: Last Recorded Vitals Visit Vitals BP 143/80 (BP Location: Right arm, Patient Position: Sitting) Pulse 88 Ht 1.778 m (5' 10 ) Wt 78 kg (172 lb) SpO2 95% BMI 24.68 kg/m??? Smoking Status Never BSA 1.96 m??? [...] symmetric in bilateral upper and lower extremities. P (more content not included)... [facility] 01-30-2025 Note Cardiothoracic Surge ry Outpatient Consultation [...] -US of carotids to be performed in [place]. -Of note BP 181/91 and HR 73, [...] Abdominal: General: Abd (more content not included)... [facility] 01-30-2025 Note This report has been cancelled. [facility] 01-21-2025 Note I am not able to swi tch this referral to get it in our worque :( Karen 10:35 AM AF Shayan Justice RN see if it is in the WQ now. 25 mins AF PC Floyd Mcduffie RN Nope :( 19 mins You were added by Floyd Mcduffie RN. 18 mins PC PAN Vinsona Will you schedule him before 02/14/25 Mitral Valve Regurgitation referral from Dr. Plasencia [facility] 01-13-2025 Note [place] [facility] Note Reason for cardiology [...] aorta. Assessment a (more content not included)... [facility] 11-08-2024 Note [place] [facility] Note Reason for cardiology [...] patient the findings (more content not included)... [facility] 10-16-2024 Hospital Discharge instructions Patient Education 10/16/2024 [...] treatment? Where to find more information The [place] [employer]: www.cancer.org [place] [employer]: www.auanet.org Contact a health care [...] provider. Document Revised: 03/14/2022 Document Reviewed: 03/14/2022 [employer] Patient Education 2023 [employer]. Follow Up Care 03/20/2024 09:04:03 With:KARLEE GA, Rock Pollock, URL Address: [facility] [address] [facility] [employer] [address] [place], [place] [id number]- When: Unknown [facility] 10-16-2024 Note Patient Education Oncology Prostate [...] Where to find more information ??? The [place] [employer]: www.cancer.org ??? [place] [employer] Association: www.auanet.org Contact a health care [...] The prostate gland (more content not included)... [facility] Hospital Discharge instructions Patient Education 03/20/2024 [...] urethra. Follow these instructions at home: Take qhbi-uyz-xquubdp and prescription medicines only as told by [...] provider. Document Revised: 04/06/2022 Document Reviewed: 04/06/2022 Elsevier Patient Education 2022 [employer]. Follow Up Care 08/23/2023 09:06:17 With:KARLEE GA, Rock Pollock, URL Address: [address] [place] [address] When: Unknown [facility] 08-23-2023 Hospital Discharge instructions Patient Education [...] urethra. Follow these instructions at home: Take bfrv-gqb-nemzbmd and prescription medicines only as told by [...] provider. Document Revised: 04/06/2022 Document Reviewed: 04/06/2022 [employer] Patient Education 2022 [employer]. 08/23/2023 11:10:20 Prostate Cancer Screening Prostate Cancer [...] treatment? Where to find more information The [place]: www.cancer.org [place] [employer] Association: www.auanet.org Contact a health care [...] provider. Document Revised: 03/14/2022 Document Reviewed: 03/14/2022 [email or web address] Patient Education 2022 [employer]. Follow Up Care 02/15/2023 12:04:24 With:KARLEE GA, Rock Pollock, URL Address: [address] [place], [place] [address] [address] [place] [address] When: Unknown [facility] 08-07-2023 Evaluation note Encounter Date Diagnosis [...] Has passed the quarantine dates. Rest, hydrate. [facility] Other 02-16-2023 Evaluation note* Encounter Date Diagnosis [...] juncture. Nov, Essential hypertension (ICD-10 - I10) [facility] Other 11-30-2022 NoteOP Note OPERATION DATE: 08/31/2022 [...] year after that. CC: A[facility] M.D.[id number] NoteOPERATIVE NOTE OPERATION DATE: 08/26/2022 PREOPERATIVE DIAGNOSIS: [...] room in good condition. CC: Abigail Sanchez M.D.[facility]11-25-2022 NoteOPERATIVE NOTE OPERATION DATE: 08/26/2022 PREOPERATIVE DIAGNOSIS: [...] year after that. CC: Abigail Sanchez M.D.[facility] [id number] Hospital Discharge instructions Patient Education 04/27/2022 08:25:39 [...] urethra. Follow these instructions at home: Take hede-rtn-kzhehbu and prescription medicines only as told by [...] 09/18/2006 Document Revised: 08/13/2019 Document Reviewed: 10/23/2017 i-Nalysis Patient Education 2020 [employer]. Follow Up Care 10/25/2021 11:53:28 With:Rock LUJAN MD, URL Address: [address] [place] [address] When:Within 6 Month(s) [facility] evaluation + Plan note Future Appointments Appointment Date:10/17/2022 08:00:00 AM Scheduled Provider:Rock LUJAN MD Location:[facility] Appointment Type:URO Office Visit Diagnostic Tests Pending * PSA Free & Total 09/01/22 [facility] Evaluation + Plan note Future Appointments Appointment Date:10/17/2022 08:00:00 AM Scheduled Provider:Rock LUJAN MD Location:[facility] Appointment Type:URO Office Visit General Surgery [place] Evaluation + Plan note Future Appointments Appointment Date:03/20/2024 08:00:00 AM Scheduled Provider:Rock LUJAN MD Location:[facility] Appointment Type:URO Office Visit Diagnostic Tests Pending * PSA Free & Total 08/23/23 [facility] Evaluation + Plan note Future Appointments Appointment Date:10/16/2024 08:00:00 AM Scheduled Provider:Rock LUJAN MD Location:[facility] Appointment Type:URO Office Visit Diagnostic Tests Pending * PSA Free & Total 07/02/24 [facility] Evaluation + Plan note Future Appointments Appointment Date:04/23/2025 08:45:00 AM Scheduled Provider:Rock LUJAN MD Location:[facility] Appointment Type:URO Office Visit Diagnostic Tests Pending * PSA Free & Total 03/02/25 [facility] Evaluation noteNo InformationNohca midwest division [employer] Other History general Narrative - Reported* Type Description Date Medical History Iron deficiency anemia Medical History Fatigue Medical History Dyspnea on exertion Medical History Essential hypertension Surgical History CHOLECYSTECTOMY Surgical History CERVICAL DISC SURGERY Surgical History 2 INGUINAL HERNIA SURGERY Hospitalization History SEE SURGICAL HX [facility] Other History general Narrative - Reported* Type Description Date Medical History Iron deficiency anemia Medical History Fatigue Medical History Dyspnea on exertion Medical History Essential hypertension Surgical History CHOLECYSTECTOMY Surgical History CERVICAL DISC SURGERY Surgical History 2 INGUINAL HERNIA SURGERY Surgical History Colonoscopy 2022 Surgical History Bowel resection 11/2022 Hospitalization History SEE SURGICAL HX [facility] Other Hospital course Narrative No data available for this section [facility] [employer] Hospital Discharge instructions No data available for this section General Surgery [place] Progress note No data available for this section [facility] [employer] Summary Purpose Family History No Family History [...] section and content) DATE CREATED AUTHOR 03/26/2018 [facility] DATE CREATED AUTHOR AUTHOR'S ORGANIZ ATION 03/31/2022 [facility] DATE CREATED AUTHOR AUTHOR'S ORGANIZ ATION 02/12/2023 [facility] DATE CREATED AUTHOR AUTHOR'S ORGANIZ ATION 10/17/2024 [facility] DATE CREATED AUTHOR AUTHOR'S ORGANIZ ATION 02/17/2025 [facility] Care Team (unrecognized sect ion and content) Personnel Name: ABIGAIL SANCHEZ MD Address: [address] [place] [address] Personnel Name: ABIGAIL SANCHEZ MD Address: Address: [address] [place] [address] Personnel Name: ABIGAIL SANCHEZ MD Address: Address: [address] [place] [address] Personnel Name: ABIGAIL SANCHEZ MD Address: Address: [address] [place] [address] Personnel Name: ABIGAIL SANCHEZ MD Address: Address: [address] [place] [address] REASON FOR VISIT (unrecogniz ed section and [...] BE BASED ON THE PRIMARY CLINICAL RECORDS. [employer] provides no warranty or guarantee of the accuracy or completeness of information in this document.
[2025-04-17 05:10] LABS: PSA, Free 1.67 ng/mL
== END 2025-04-16 06:59 | disposition home or self-care (01) ==
LOC: LAB 07:00
PROVIDERS: PCP Family Medicine; Visit Provider Urology
DX: R97.20 Elevated prostate specific antigen [PSA] (principal)
CPT/HCPCS: 36415; 84153; 84154

== ENCOUNTER 2025-05-12 10:54 | Emergency (ER) | payer MEDICARE, SELFPAY ==
[2025-05-12] VITALS (18 sets, daily range): BP systolic 115–153; BP diastolic 61–89; PULSE 53–99; TEMP 36.5; O2SAT 94–100; BMI 24.4
[2025-05-12] MEDS: MORPHINE SULFATE 4 MG/ML VIAL IV ×3 (11:28→13:53)
--- NOTE | 2025-05-12 11:29 | ED.GENADUL1 ---
HPI HPI - General Adult General Chief complaint: Abdominal Pain Stated complaint: ABDOMINAL PAIN CHEST PAINS SOB Time Seen by Provider: 05/12/25 11:15 Source: patient Mode of arrival: walk-in History of Present Illness HPI narrative: Patient is a 74 y/o male with a PMH of Mitral valve insufficiency and PSH of Cholecystectomy and Colon resection for Polyps that presents to the Emergency Department with complaints of epigastric abdominal pain that started last night and became worse this morning and worsened about an hour before arrival and he also became diaphoretic. He denies the pain being associated with eating, nausea, vomiting, diarrhea, fever, chills, night sweats, chest pain, or SOB. He does endorse flatus. He denies any radiating pain. He did eat this morning. Related Data Home Medications ?Medication ?Instructions ?Recorded ?Confirmed tamsulosin 0.4 mg capsule 0.4 mg PO BID 07/26/23 05/12/25 losartan 50 mg tablet 50 mg PO DAILY 05/12/25 05/12/25 Allergies Allergy/AdvReac Type Severity Reaction Status Date / Time No Known Drug Allergies Allergy Verified 05/12/25 10:57 Opioid HPI Opioid Management Most Recent Opioid Data: Last Pain Scale 9 Today, 14:20 Last MAR Pain Assessment Today, 11:28 Review of Systems ROS Status of ROS 10 or more systems reviewed and unremarkable except as noted in history and below PFS PFS Social History Smoking status: Never smoker Little interest or pleasure in doing things: not at all Feeling down, depressed, or hopeless: not at all Exam Narrative Exam Narrative: Nurses notes and vital signs reviewed and patient is not hypoxic or hypotensive General: Laying on cart, pale, diaphoretic, appears to be in pain. Skin: Warm, dry, pallor, diaphoretic. No rash. Head: Normocephalic, atraumatic. Neck: Supple, non-tender. Eye: Pupils are equal, round and EOMI. No scleral icterus. Ears, Nose, Mouth, and Throat: TM are clear, no nasal mucosal hypertrophy. Oral mucosa is moist, no posterior oropharynx erythema, uvula is mid-line Cardiovascular: Regular Rate and Rhythm without murmur, gallop or rub. Respiratory: No accessory muscle use or respiratory distress. Lungs are clear to auscultation, no wheezing, rales or rhonchi Chest Wall: no tenderness Back: No midline thoracic or lumbar vertebral tenderness. Musculoskeletal: normal ROM, no calf or popliteal tenderness, no lower extremity edema/swelling GI: Abdomen is soft, non-distended, tender to palpation diffusely, worse at epigastric/LUQ. Normal bowel sounds. No masses appreciated. No rebound, guarding, or rigidity noted. Neurological: A&O x4. No cranial nerve dysfunction observed. No truncal ataxia. Moves all extremities. Sensation intact. Psychiatric: Cooperative and interactive. Normal mood and affect. Constitutional Vital Signs, click to edit/add: Last Vital Signs Temp 97.7 F 05/12/25 11:00 Pulse 96 H 05/12/25 13:10 Resp 21 H 05/12/25 13:10 BP 152/87 H 05/12/25 13:08 Pulse Ox 99 05/12/25 13:10 O2 Del Method Room Air 05/12/25 11:00 Course Vital Signs Vital signs: Vital Signs Pulse Oximetry 99 05/12/25 10:58 Temperature 97.7 F 05/12/25 11:00 Pulse Rate 96 H 05/12/25 13:10 Respiratory Rate 21 H 05/12/25 13:10 Blood Pressure 152/87 H 05/12/25 13:08 Pulse Oximetry 99 05/12/25 13:10 Oxygen Delivery Method Room Air 05/12/25 11:00 Medical Decision Making [facility] Narrative Medical decision making narrative: 74 y/o male presented to the ED for abdominal pain that started yesterday and worsened this morning. He arrived pale and diaphoretic and moaning in pain. Vitals stable, afebrile. He does have a PMH of Mitral valve insufficiency that he follows with [facility]. He denies blood thinner or antiplatelet use. Morphine given to patient on arrival as Morphine is the only pain medicine that works for him. EKG on arrival NSR. Vitals stable on arrival. CXR, CT Ab/ Pel and labs with UA ordered. Patient vomited in Radiology. Zofran and repeat dose of Morphine given as first dose only took the edge off . CXR negative. 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 [facility] Gen Surg, Dr Nova called and he recommends transfer to a tertiary center at 1335. NG tube placed, IVF NS @ 200 mL/hour. Patient still in pain, another 4 mg of morphine given. [facility] general surgeon contacted, I spoke with Dr. Murphy at 1415 who would like the patient transferred to the emergency department there. I did speak with the ED physician at [facility] who accepts the patient and he will be transferred there to be seen by general surgery. Blood pressure has remained stable during his ED course, he is mildly tachy around 105 now. Patient updated with plan and all questions answered. On reexamination his abdomen is much less tender now,mildly distended, NG tube is in place, he is not diaphoretic and appears more comfortable now. He was transferred to [facility] emergency department via EMS. Differential Diagnosis Differential Diagnosis: ACS, Aortic Dissection, Gastritis, SBO, Pancreatitis, Kidney Stone Medical Records Medical records reviewed: Yes I reviewed the patient's medical records Medical records narrative: Echo reviewed from January of this year. LVEF is estimated at 65%. - Significant prolapse of the posterior mitral leaflet with at least moderate to severe regurgitation with an eccentric anteriorly directed jet. - Mild tricuspid and aortic regurgitation. - Moderately elevated right-sided pressures. RVSP is 50 mmHg. Lab Data Lab results reviewed: Yes I reviewed the patient's lab results Lab results narrative: mgWBC 12, electrolytes largely WNL, amylase/lipase WNL, UA with 40mgs ketones, otherwise negative Labs: Lab Results 05/12/25 05/12/25 Range/Units 11:10 13:06 WBC 12.8 H (4.0-11.0) 10^3/uL RBC 4.67 L (4.70-6.10) 10^6/uL Hgb 14.5 (14.0-18.0) g/dL Hct 42.6 (42.0-54.0) % MCV 91.2 (80.0-94.0) fL MCH 31.0 (25.9-34.0) pg MCHC 34.0 (29.9-35.2) g/dL RDW 13.9 (11.0-15.0) % Plt Count 155 (150-450) 10^3/uL MPV 12.1 (9.5-13.5) fL Neut % (Auto) 52.1 (43.0-75.0) % Lymph % (Auto) 37.1 (20.5-60.0) % [place] % (Auto) 8.5 (1.7-12.0) % Eos % (Auto) 1.6 (0.9-7.0) % Baso % (Auto) 0.5 (0.2-2.0) % Neut # (Auto) 6.7 H (1.4-6.5) 10^3/uL Lymph # (Auto) 4.8 H (1.2-3.8) 10^3/uL [place] # (Auto) 1.1 H (0.3-0.8) 10^3/uL Eos # (Auto) 0.2 (0.0-0.7) 10^3/uL Baso # (Auto) 0.1 (0.0-0.1) 10^3/uL Abs Immat Gran (auto) 0.03 (0.00-0.03) 10^3/uL Imm/Tot Granulo (auto) 0.2 (0.0-0.5) % Sodium 142 (136-145) mmol/L Potassium 3.4 L (3.5-5.1) mmol/L Chloride 106 (98-107) mmol/L Carbon Dioxide 32.0 (21.0-32.0) mmol/L Anion Gap 7.4 BUN 13.0 (7.0-18.0) mg/dL Creatinine 1.04 (0.70-1.30) mg/dL Est GFR ( Amer) >60 (>=60 mL/min/1.73m^2) Est GFR (Non-Af Amer) >60 (>=60 mL/min/1.73m^2) BUN/Creatinine Ratio 12.5 Glucose 121 H (74-106) mg/dL Calcium 8.9 (8.5-10.1) mg/dL Total Bilirubin 0.4 (0.2-1.0) mg/dL AST 22 (15-37) U/L ALT 23 (16-63) U/L Alkaline Phosphatase 64 (46-116) U/L Troponin I High Sens 6.7 (4.0-76.1) pg/mL Total Protein 7.0 (6.4-8.2) g/dL Albumin 3.7 (3.4-5.0) g/dL Globulin 3.3 g/dL Albumin/Globulin Ratio 1.1 Amylase 54 (25-115) U/L Lipase 30.0 (16.0-77.0) U/L Urine Color Yellow (YELLOW) Urine Clarity Clear (CLEAR) Urine pH 8.0 (5.0-9.0) Ur Specific [place] 1.010 (1.005-1.025) Urine Protein Trace (NEG/TRACE) mg/dL Urine Glucose (UA) Negative (NEGATIVE) mg/dL Urine Ketones 40 A (NEGATIVE) mg/dL Urine Occult Blood Negative (NEGATIVE) Urine Nitrite Negative (NEGATIVE) Urine Bilirubin Negative (NEGATIVE) Urine Urobilinogen 1.0 (0.2-1.0) EU/dL Ur Leukocyte Esterase Negative (NEGATIVE) Urine RBC 0-2 (0-2) #/HPF Urine WBC 0-2 A (NONE SEEN) #/HPF Ur Squamous Epith Cells Rare (NONE/RARE) #/LPF Urine Crystals None seen (None Seen) #/HPF Urine Bacteria None seen (NONE SEEN) #/HPF Urine Casts None seen (NONE SEEN) #/LPF Urine Mucus None seen (NONE SEEN) Ur Culture Indicated? No Imaging Data CT scan - abdomen: Attestation: I have reviewed the pertinent imaging results. 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 Recommend surgical consultation. Impression dictated by: Jeffrey Canas M.D. 05/12/2025 12:59 PM Dictation Location: [facility] Electronically authenticated by: [id number] Y Date: 05/12/2025 12:59 Chest X-Ray 05/12/25 12:24 IMPRESSION: Negative acute pleural-parenchymal disease. Impression dictated by: Jeffery Canas M.D. 05/12/2025 12:41 PM Dictation Location: [facility] Electronically authenticated by: [id number] Y Date: 05/12/2025 12:41 ECG Data Attestation: ?I have reviewed the pertinent ECG results. Discharge Plan Discharge Chief Complaint: Abdominal Pain Clinical Impression: Small bowel obstruction Patient Disposition: [facility] Time of Disposition Decision: 13:43 Discharge Location: [facility] Condition: Fair Mode of Transportation: EMS
[2025-05-12 11:34] LABS: Hematocrit 42.6 % (42.0-54.0); Hemoglobin 14.5 g/dL (14.0-18.0); Immature Granulocytes Abs Auto 0.03 10^3/uL (0.00-0.03); Immature Granulocytes Pct Auto 0.2 % (0.0-0.5); Lymphocytes Absolute Auto 4.8 10^3/uL (1.2-3.8); Mean Corpuscular HGB Conc 34.0 g/dL (29.9-35.2); Mean Corpuscular Hemoglobin 31.0 pg (25.9-34.0); Mean Corpuscular Volume 91.2 fL (80.0-94.0); Platelet Count 155 10^3/uL (150-450); Red Blood Count 4.67 10^6/uL (4.70-6.10); White Blood Count 12.8 10^3/uL (4.0-11.0)
[2025-05-12 11:39] LABS: Amylase 54 U/L (25-115); Lipase 30.0 U/L (16.0-77.0)
[2025-05-12 11:47] LABS: Alanine Aminotransferase 23 U/L (16-63); Albumin Globulin Ratio 1.1; Albumin Level 3.7 g/dL (3.4-5.0); Alkaline Phosphatase 64 U/L (46-116); Anion Gap 7.4; Aspartate Amino Transferase 22 U/L (15-37); Blood Urea Nitrogen 13.0 mg/dL (7.0-18.0); Calcium 8.9 mg/dL (8.5-10.1); Carbon Dioxide 32.0 mmol/L (21.0-32.0); Chloride 106 mmol/L (98-107); Estimated GFR (African America >60 (>=60 mL/min/1.73m^2); Estimated GFR (Non-African Ame >60 (>=60 mL/min/1.73m^2); Globulin 3.3 g/dL; Glucose 121 mg/dL (74-106); Potassium 3.4 mmol/L (3.5-5.1); Sodium 142 mmol/L (136-145); Total Protein 7.0 g/dL (6.4-8.2)
--- NOTE | 2025-05-12 12:24 | CT_ITS ---
The [address] [address] Patient Name: SOFI NELSON MRN: [id number] date: 1950 Sex: M Assigned Patient Location: ER Current Patient Location: ER Accession/Order Number: [id number] Exam Date: 05/12/2025 12:49 Report Date: 05/12/2025 12:59 At the request of: DANN MOTA Procedure: CT abdomen pelvis w con CT ABDOMEN AND PELVIS WITH INTRAVENOUS CONTRAST: CLINICAL HISTORY: Epigastric pain COMPARISON: 07/11/2024 TECHNIQUE: Spiral images were obtained through the abdomen and pelvis following the administration of intravenous contrast. This CT exam was performed using one or more following dose reduction techniques: Automated exposure control, adjustment of the mA and/or kV according to patient size, or use of iterative reconstruction technique. FINDINGS: Lung Bases: [Bibasilar hypoventilatory change. Organs: Liver cyst on the right. Right-sided renal cysts. Otherwise liver, spleen, adrenals, kidneys, pancreas unremarkable. Left lower pole renal calculi. Left-sided typically collecting system. GI: There is evidence of small bowel obstruction. There are herniated loops of bowel noted behind the stomach and anterior to the pancreas is worrisome for paraduodenal hernia. There is fluid adjacent the bowel loops and congested appearance of mesentery within the hernia sac. Slight diminished enhancement of the mucosa involving the herniated loops of bowel relative to the remaining bowel loops noted.[. Posterior changes involving: Left lower quadrant. Appendix is normal. Pelvis:[Suspect bladder diverticulum with calcifications noted. Otherwise bladder. Bilateral fat-containing inguinal hernias. Minimal fluid tracking along the left inguinal hernia noted. Prostate is enlarged.] Peritoneum/Retroperitoneum:No free air or free fluid.[Moderate plaque involving the nonaneurysmal aorta. 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 Recommend surgical consultation. Impression dictated by: Jeffrey Canas M.D. 05/12/2025 12:59 PM [facility]ictation Location[facility] Electronically authenticated by: [id number] Y Date: 05/12/2025 12:59
--- NOTE | 2025-05-12 12:24 | XR_ITS ---
The [address] [address] Patient Name: SOFI NELSNO MRN: [id number] date: 1950 Sex: M Assigned Patient Location: ER Current Patient Location: ER Accession/Order Number: [id number] Exam Date: 05/12/2025 12:37 Report Date: 05/12/2025 12:41 At the request of: DANN MOTA Procedure: XR chest 1V PA CHEST: CLINICAL HISTORY: Chest/abdominal pain COMPARISON: None FINDINGS: Unremarkable cardiomediastinal. Lungs clear. No effusion or Pneumothorax. Likely colonic interposition beneath the right hemidiaphragm. XR/XR chest 1V IMPRESSION: Negative acute pleural-parenchymal disease. Impression dictated by: Jeffrey Canas M.D. 05/12/2025 12:41 PM Dictation Location: [place] [address] Electronically authenticated by: [id number] Y Date: 05/12/2025 12:41
--- NOTE | 2025-05-12 13:28 | ECG_ITS ---
The [facility] Test Date: 2025-05-12 Pat Name: SOFI NELSON Department: Room: - Gender: Male [place]: : 1950 Requested By: [id number] Order Number: [id number] Reading MD: BARRINGTON DOWD M.D. Measurements Intervals [place] Rate: 55 P: 42 DC: 132 QRS: 47 QRSD: 88 T: 41 QT: 452 QTc: 441 Interpretive Statements 1100 Sinus rhythm 9110 normal ECG Compared to ECG 10/22/2024 09:15:19 Sinus arrhythmia no longer present Electronically Signed On 05-13-2025 13:53:16 EDT by BARRINGTON DOWD M.D.
[2025-05-12 13:33] LABS: Glucose Urine UA NEGATIVE (NEGATIVE)
[2025-05-12 13:39] LABS: Cast Seen? NONE SEEN #/LPF (NONE SEEN); Crystals Seen? None Seen #/HPF (None Seen); Urine Culture Indicated NO
--- NOTE | 2025-05-12 13:58 | XR_ITS ---
The [address] [address] Patient Name: SOFI NELSON MRN: [id number] date: 1950 Sex: M Assigned Patient Location: ED.MAIN Current Patient Location: ED.MAIN Accession/Order Number: [id number] Exam Date: 05/12/2025 14:10 Report Date: 05/12/2025 14:11 At the request of: GIANCARLO BANEGAS MD Procedure: XR chest 1V PA CHEST: CLINICAL HISTORY: NG tube placement COMPARISON: 05/12/2025 Stable cardiomediastinal silhouette. Lungs are clear without focal consolidation or effusion. Interval placement enteric tube tip and side-port left upper quadrant satisfactory position. IMPRESSION: Satisfactory enteric tube. Impression dictated by: Jeffrey Canas M.D. 05/12/2025 2:11 PM Dictation Location: [place] [address] Electronically authenticated by: [id number] Y Date: 05/12/2025 14:11
--- NOTE | 2025-05-12 14:05 | XR_ITS ---
The [address] [address] Patient Name: SOFI NELSON MRN: [id number] date: 1950 Sex: M Assigned Patient Location: ED.MAIN Current Patient Location: ED.MAIN Accession/Order Number: [id number] Exam Date: 05/12/2025 14:12 Report Date: 05/12/2025 14:13 At the request of: DANN MOTA Procedure: XR chest 1V PA CHEST: CLINICAL HISTORY: NG tube placement COMPARISON: 05/12/2025 Stable cardiomediastinal silhouette. Lungs are clear without focal consolidation or effusion. Interval placement enteric tube tip and side-port left upper quadrant satisfactory position. Suspect slight interval retraction. IMPRESSION: Satisfactory enteric tube. Impression dictated by: Jeffrey Canas M.D. 05/12/2025 2:13 PM Dictation Location: [place] [address] Electronically authenticated by: [id number] Y Date: 05/12/2025 14:13
[2025-05-12] MEDS: 0.9 % SODIUM CHLORIDE 1,000 ML 200 ML IV (14:09)
== END 2025-05-12 16:30 | disposition short-term general hospital (02) ==
PROVIDERS: Physician Assistant; Emergency Provider Emergency Medicine; PCP Family Medicine
DX: K56.609 Unspecified intestinal obstruction, unspecified as to partial versus complete obstruction (principal); K45.0 Other specified abdominal hernia with obstruction, without gangrene; Z90.49 Acquired absence of other specified parts of digestive tract; R10.13 Epigastric pain; R61 Generalized hyperhidrosis; I34.0 Nonrheumatic mitral (valve) insufficiency; Z46.59 Encounter for fitting and adjustment of other gastrointestinal appliance and device
CPT/HCPCS: 36415; 71045; 74177; 80053; 81001; 82150; 83690; 84484; 85025; 93005; 96374; 96375; 96376; 99285; J2270; J2405; Q9967

== ENCOUNTER 2025-06-03 21:27 | Emergency (ER) | payer MEDICARE, SELFPAY ==
[2025-06-03 21:34] VITALS: BP 158/99; PULSE 98; TEMP 36.9; O2SAT 97; BMI 22.6
--- OUTSIDE RECORDS SUMMARY | 2025-06-03 21:36 | XMS_ITS | Clinical Summary ---
Author Organization [facility] Address [address] [place], [place] [address] Care Team Providers Care Senior Agricultural Assistant Name Role Phone Benji Calhoun MD Unavailable [phone] Patricia Fontanez MD Primary Care Provider [phone] Allergies No known active allergies Medications potassium [...] (09/12/2017): Added automatically from request for surgery [id number] Resolved Problems Problem Noted Date Diagnosed Date [...] N ot on file 09/08/2020 Data from: https://www.neighborhoodatlas.medicine.[facility]/. Last address used for calculation Not on [...] Vaccine (1 - 1-dose 75+ series) 2023 Advance Directive Discussion 10/02/2024 Influenza Vaccine (#1) 2025 Procedures Procedure Name Priority Date/Time Associated Diagnosis Comments BASIC METABOLIC PANEL Routine 10/22/2017 4:38 AM EST from Last 3 Months or Most Recently Relevant to Health Maintenance Results * (ABNORMAL) BASIC METABOLIC PNL (10/22/2017 4:38 AM EST) Glucose 85 74 - 99 mg/dL 10/22/2017 7:10 AM [facility] Comment: The [place] Diabetes Association (ADA) provides guidance for cutoff [...] Standards of Medical Care in Diabetes 2016, [place] Diabetes Association. Diabetes Care. 2016.39(Suppl 1). BUN 5(L) 9 - 24 mg/dL 10/22/2017 7:10 AM EST [facility] Creatinine 0.98 0.73 - 1.22 mg/dL 10/22/2017 7:10 AM [facility] Sodium 140 136 - 144 mmol/L 10/22/2017 7:10 AM EST [facility] Potassium 3.5(L) 3.7 - 5.1 mmol/L 10/22/2017 7:10 AM [facility] Chloride 102 97 - 105 mmol/L 10/22/2017 7:10 AM [facility] CO2 26 22 - 30 mmol/L 10/22/2017 7:10 AM [facility] Anion Gap 12 9 - 18 mmol/L 10/22/2017 7:10 AM EST [facility] Calcium 8.2(L) 8.5 - 10.2 mg/dL 10/22/2017 7:10 AM EST [facility] eGFR- >60 10/22/2017 7:10 AM EST [facility] eGFR-All Other Races >60 . 10/22/2017 7:10 AM EST [facility] Comment: eGFR (Estimated GFR) Units of [...] us Kip Hagan MD LABORATORY Final Result [facility] [address] [place] [address] from Last 3 Months or Most Recently Relevant to Health Maintenance Insurance [employer] P[employer] Care Teams Senior Agricultural Assistant Relationship Specialty Start Date End Date Patricia Fontanez MD [address] [place] [address] PCP - General Family Medicine 10/05/17 Benji Calhoun MD [address] [place] [address] Referring Urology 09/11/17
--- OUTSIDE RECORDS SUMMARY | 2025-06-03 21:36 | XMS_ITS | Encounter Summary ---
Author Organization [employer] Address [id number] [address] [place] [address] Care Team Providers Care Ship Fastener Name Role Phone Patricia Fontanez MD Primary Care Provider [phone] Encounter Details Date Type Department Care Team (Late st Contact Info) Description 12/06/2022 Telephone [facility] [address] [place] [id number] Darcy Pinzon RMA Social History Tobacco Use [...] on filedocumented in this encounter Care Teams Ship Fastener Relationship Specialty Start Date End Date Patricia Fontanez MD [address] [place] [address] PCP - General Family Medicine 11/08/22 documented as of this encounter
--- OUTSIDE RECORDS SUMMARY | 2025-06-03 21:36 | XMS_ITS | Clinical Summary ---
Author Organization [employer] Address [facility] [place] [id number] [address] [place] [address] Care Team Providers Care Research Consultant Name Role Phone Patricia Fontanez MD Primary Care Provider Allergies No known active allergies Medications tamsulosin [...] 1:52 PM 12/09/2022 4:20 PM Care Teams Research Consultant Relationship Specialty Start Date End Date Patricia Fontanez MD [address] [place] [address] PCP - General Family Medicine 11/08/22
--- OUTSIDE RECORDS SUMMARY | 2025-06-03 21:36 | XMS_ITS | Encounter Summary ---
Author Organization [facility] Address [facility] [id number] [address] [place] [address] Care Team Providers Care Heavy Forging Machine Operator Name Role Phone Patricia Fontanez MD Primary Care Provider [phone] Encounter Details Date Type Department Care Team (Late st Contact Info) Description 11/04/2022 Orders Only [facility] [address] [place] [address] External, Scanning Provider Pain (Primary [...] pain documented in this encounter Care Teams Heavy Forging Machine Operator Relationship Specialty Start Date End Date Patricia Fontanez MD [address] [place] [address] PCP - General Family Medicine 11/08/22 documented as of this encounter
--- OUTSIDE RECORDS SUMMARY | 2025-06-03 21:41 | XMS_ITS | CCD ---
Author Organization [facility] Team Providers Care Textile Converter Name Role Phone SCHROEDER, FELICIANO Unavailable Unavailable [...] SANCHEZ, DR ABIGAIL Trejo Primary Care Unavailable BIRMINGHAM, DR OLIVER Maguire Consulting Unavailable GARCIA, DR DENNY Consulting Unavailable COOK, DR ROCK Pollock Admitting Unavailable COOK, DR ROCK Pollock Attending Unavailable SANCHEZ, DR ABIGAIL Trejo Primary Care Unavailable COOK, DR ROCK Pollock Consulting Unavailable NILL ., DR BARROSO Admitting Unavailable NILL ., DR BARROSO Attending Unavailable SANCHEZ, DR ABIGAIL Trjeo Primary Care Unavailable NILL ., DR BARROSO [...] Unavailable COOK, DR ROCK Pollock Consulting Unavailable ASHER BURNS Referring Unavailable BOYKIN-BUKOWIECCHRISTINA Referring Unavailabl e BOYKIN-BUKOWIEC, CHRISTINA Referring Unavailabl e SATISH DE LA ROSA Referring Unavailable EDUARDO PEARSON Referring Unavailable EDUARDO PEARSON Referring Unavailable EDUARDO PEARSON Referring Unavailable EDUARDO PEARSON Referring Unavailable SANJU HOWARD Attending UnavailJOHN Diaz Referring Unavailable CHINMAY, JOHN Attending Unavailable GIANCARLO BANEGAS Referring Unavailable EDUARDO PEARSON Admitting Unavailable EDUARDO PEARSON Attending Unavailable JOHN PLASENCIA Attending Unavailable JOHN PLASENCIA Attending Unavailable MCSIMON GOLD Referring Unavailable EDUARDO PEARSON Referring Unavailable JOHN PLASENCIA Referring Unavailable Rock LUJAN Attending Unavailable Rock LUJAN Attending Unavailable Rock LUJAN Attending Unavailable Rock LUJAN Attending Unavailable Medications Current Medications Medication Drug Class(es) Dates Sig (Normalized) Sig (Original) amoxicillin 875 mg / clavulanate 125 mg oral tablet (2 sources) Penicillin-class Antibacterial Start: 08-07-2023 take 1 tablet by mouth every twelve hours Amoxicillin-Pot Clavulanate 875-125 MG 1 tablet Orally every 12 hrs for 10 day(s) Aug, Active Daily Multiple for Men 50+ oral tablet (6 sources) Start: 06-15-2020 take 1 tablet by mouth once daily Daily Multiple for Men 50+ oral tablet Oral, Daily, Refill(s) 0 Start Date: 06/15/20 Status: Ordered Repeat number: 1 Start: 06-15-2020 take 1 tablet by kacie th once daily Daily Multiple for Men 50+ oral tablet Oral, Daily, Refill(s) 0 Start Date: 06/15/20 Status: Ordered doxycycline hyclate 100 mg oral tablet (1 source) Tetracycline-class Drug Start: 02-15-2023 take 1 tablet by mouth twice daily doxycycline hyclate 100 mg Tab 100 mg = 1 tab(s), Oral, BID, # 14 tab(s), Refills(s) 0, Pharmacy: [id number], 177, cm, 02/15/23 11:48:00 EDT, Height/Length Dosing, 78.9, kg, 02/15/23 11:48:00 EDT, Weight Dosing Start Date: 02/15/23 Status: Ordered Iron (1 source) Start: 04-23-2025 Iron Iron, 65 mg Start Date: 04/23/25 Status: Ordered Repeat number: 1 Psyllium (4 sources) Start: 05-17-2023 Metamucil Oral, BID Start Date: 02/15/23 Status: Ordered Repeat number: 1 Start: 02-15-2023 Metamucil Oral , BID Start Date: 02/15/23 Status: Ordered See instructions (1 source) Start: 09-09-2017 See instructjuhi mtz See instructions, CBC with differential on 09/18/2017 and follow up with PCP/Urologist. Diagnosis Right ureteric stone/UTI, Print Requisition, Supply Start Date: 09/09/17 Status: Ordered tamsulosin hydrochloride 0.4 mg oral capsule (9 sources) alpha-Adrenerg ic Gordon Start: 01-01-2025 take 1 capsule by mouth twice daily tamsulosin 0.4 mg Cap 0.4 mg = 1 cap(s), Oral, BID, # 180 cap(s), Refills(s) 3, Pharmacy: [id number], 177, cm, 10/16/24 8:08:00 EST, Height/Length Dosing, 78, kg, 10/16/24 8:08:00 EST, Weight Dosing Start Date: 01/01/25 Status: Ordered Quantity: 180.0 Unit: cap(s) Repeat number: 4 Start: 01-09-2024 take 1 capsule by mo ut twice daily tamsulosin 0.4 mg Cap 0.4 mg = 1 cap(s), Oral, BID, # 180 cap(s), Refills(s) 3, Pharmacy: [id number], 177, cm, 08/23/23 8:44:00 EST, Height/Length Dosing, 78.9, kg, 08/23/23 8:44:00 EST, Weight Dosing Start Date: 01/09/24 Status: Ordered Start: 01-12-2023 take 1 capsule by mo uth twice daily tamsulosin 0.4 mg Cap 0.4 mg = 1 cap(s), Oral, BID, # 180 cap(s), Refills(s) 3, Pharmacy: [id number], 177, cm, 07/26/22 13:27:00 EDT, Height/Length Dosing, 87.5, kg, 07/26/22 13:27:00 EDT, Weight Dosing Start Date: 01/12/23 Status: Ordered Start: 01-05-2022 take 1 capsule by mo uth twice daily tamsulosin 0.4 mg Cap 0.4 mg = 1 cap(s), Oral, BID, # 180 cap(s), Refills(s) 3, Pharmacy: [facility] #[id number], 177, cm, 10/25/21 11:30:00 EST, Height/Length Dosing, 78.9, kg, 10/25/21 11:30:00 EST, Weight Dosing Start Date: 01/05/22 Status: [facility]dered [facility]four hours Tamsulosin HCl 0.4 MG 1 capsule Orally Once a day Active Completed/Discontinued Medications Medication Drug Class(es) Dates Sig (Normalized) Sig (Original) losartan potassium 25 mg oral tablet (9 sources) Angiotensin 2 Receptor Gordon Start: 01-12-2016 take 1 tablet by mouth once daily losartan 25 mg Tab 90 EA, TAKE 1 TABLET BY MOUTH DAILY, Refills(s) 0 Start Date: 07/18/22 Status: Ordered Repeat number: 1 take 1 tablet by [facility] every twelve hours Losartan Potassium 25 MG 1 tablet Orally twice a day Active Problems Active Problems Problem Classification Problem Date Documented Date Episodic/Chronic Abdominal hernia (3 sources) Diaphragmatic hernia without obstruction or gangrene; Translations: [Inguinal hernia] Onset: 09-07-2022 Episodic Abdominal pain (3 sources) Unspecified abdominal pain; Translations: [Unspecified abdominal pain] Onset: 09-12-2017 Episodic Blindness and vision defects (2 sources) Unspecified visual loss; Translations: [Unspecified visual loss] Onset: 11-08-2024 Chronic Calculus of urinary tract (20 sources) Calculus of kidney; Translations: [Calculus of ureter] Onset: 09-12-2017 12-18-2019 Episodic Deficiency and other anemia (2 sources) Iron deficiency anemia secondary to blood loss (chronic); Translations: [Iron deficiency anemia secondary to blood loss (chronic)] Onset: 11-08-2024 Chronic Deficiency and other anemia (13 sources) Iron deficiency anemia; Translations: [Iron deficiency anemia, unspecified] 07-18-2022 Episodic Diseases of white blood cells (2 sources) Elevated white blood cell count, unspecified; Translations: [Elevated white blood cell count, unspecified] Onset: 11-08-2024 Chronic Disorders of lipid metabolism (9 sources) Very low density lipoprotinemia; Translations: [Pure hypercholesterolemia, unspecified] Onset: 11-08-2024 07-18-2022 Chronic Diverticulosis and diverticulitis (14 sources) Diverticulitis of intestine, part unspecified, without perforation or abscess without bleeding; Translations: [Diverticulosis of sigmoid colon] Onset: 10-19-2022 Chronic Essential hypertension (17 sources) Essential (primary) hypertension; Translations: [Hypertensive disorder] Onset: 06-18-2015 07-18-2022 Chronic Genitourinary symptoms and ill-defined conditions (20 sources) Samir hematuria; Translations: [Nocturia] Onset: 01-30-2019 Resolved: 03-09-2019 12-18-2019 Episodic Heart valve disorders (4 sources) Nonrheumatic mitral (valve) insufficiency; 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] Onset: 02-06-2025 Chronic Hyperplasia of prostate (20 sources) Benign prostatic hypertrophy with outflow obstruction; Translations: [Benign prostatic hyperplasia with lower urinary tract symptoms] Onset: 06-18-2015 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 (2 sources) Hypertensive heart disease without heart failure; Translations: [Hypertensive heart disease without heart failure] Onset: 01-13-2025 Chronic 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 (10 sources) Epididymitis; Translations: [Epididymitis] Onset: 08-23-2023 Episodic Intestinal obstruction without hernia (2 sources) Unspecified intestinal obstruction, unspecified as to partial versus complete obstruction; Translations: [Unspecified intestinal obstruction, unspecified as to partial versus complete obstruction] Onset: 05-12-2025 Episodic Malaise and fatigue (13 sources) Asthenia; Translations: [Fatigue] Onset: 11-08-2024 06-15-2020 Episodic Nutritional deficiencies (1 source) Vitamin D deficiency, unspecified; Translations: [Vitamin D deficiency, unspecified] Onset: 09-12-2017 Chronic Osteoarthritis (2 sources) Unspecified osteoarthritis, unspecified site; Translations: [Unspecified osteoarthritis, unspecified site] Onset: 11-08-2024 Chronic Other and unspecified benign neoplasm (3 sources) Benign neoplasm of colon, unspecified; Translations: [Benign neoplasm of colon, unspecified] Onset: 11-08-2024 Episodic Other and unspecified benign neoplasm (4 sources) Adenomatous polyp of colon 09-13-2022 Episodic Other circulatory disease (2 sources) Elevated blood-pressure reading without diagnosis of hypertension; Translations: [Elevated blood-pressure reading, without diagnosis of hypertension] Episodic Other diseases of kidney and ureters (2 sources) Other obstructive and reflux uropathy; Translations: [Other obstructive and reflux uropathy] Onset: 11-08-2024 Episodic Other injuries and conditions due to external causes (2 sources) History of fall; Translations: [History of falling] Episodic Other injuries and conditions due to external causes (2 sources) Other injury of unspecified body region, initial encounter; Translations: [Other injury of unspecified body region, initial encounter] Onset: 05-12-2025 Episodic Other lower respiratory disease (3 sources) Dyspnea on exertion; Translations: [Other forms of dyspnea] Episodic Other lower respiratory disease (2 sources) Dyspnea; Translations: [Other forms of dyspnea] Episodic Other nutritional; endocrine; and metabolic disorders (5 sources) Overweight in adulthood with body mass index of 25 or more but less than 30 07-26-2022 Episodic Other nutritional; endocrine; and metabolic disorders (4 sources) Body mass index 25-29 - overweight; Translations: [Body mass index (BMI) 26.0-26.9, adult] Episodic Other screening for suspected conditions (not mental disorders or infectious disease) (20 sources) Raised prostate specific antigen; Translations: [Elevated prostate specific antigen [PSA]] Onset: 04-17-2019 Episodic Other skin disorders (2 sources) Rash and other nonspecific skin eruption; Translations: [Rash and other nonspecific skin eruption] Onset: 11-08-2024 Episodic Other upper respiratory disease (7 sources) Seasonal allergic rhinitis; Translations: [Other seasonal allergic rhinitis] Onset: 11-18-2016 07-18-2022 Chronic Peritonitis and intestinal abscess (2 sources) Peritoneal abscess; Translations: [Peritoneal abscess] Onset: 05-12-2025 Episodic Pulmonary heart disease (2 sources) Pulmonary hypertension, unspecified; Translations: [Pulmonary hypertension, unspecified] Onset: 11-08-2024 Chronic Residual codes; unclassified (2 sources) Immunization refused ; Translations: [Immunization not carried out because of patient refusal] Episodic Skin and subcutaneous tissue infections (2 sources) Cutaneous abscess, unspecified; Translations: [Cutaneous abscess, unspecified] Onset: 05-12-2025 Episodic Spondylosis; intervertebral disc disorders; other back problems (8 sources) Degeneration of cervical intervertebral disc; Translations: [Other cervical disc degeneration, unspecified cervical region] Onset: 11-08-2024 01-13-2016 Chronic Unclassified (1 source) Unknown / UNK(Unknown) Onset: 09-12-2017 Unclassified (1 source) CONTACT W/AND (SUSP) EXPOS COVID-19; Translations: [CONTACT W/AND (SUSP) EXPOS COVID-19] Onset: 08-31-2022 Unclassified (1 source) Personal history of colon polyps, unspecified; Translations: [Personal history of colon polyps, unspecified] Onset: 11-08-2024 Urinary tract infections (6 sources) Urinary tract infectious disease 06-15-2020 Episodic Past or Other Problems Problem Classification Problem Date Documented Da te Episodic/Chronic Deficiency and other anemia (4 sources) Iron deficiency anemia, unspecified; Translations: [IRON DEFICIENCY ANEMIA UNSPECIFIED] Onset: 08-31-2022 Episodic Gastritis and duodenitis (1 source) Gastritis, unspecified, without bleeding; Translations: [GASTRITIS UNS WITHOUT BLEEDING] Onset: 09-07-2022 Episodic Other aftercare (1 source) 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; Translations: [OTH NUT PICKER CURRENT DRUG THERAPY] Onset: 09-07-2022 Episodic Other [...] nutritional and metabolic diseases] Onset: 09-12-2017 Episodic Unclassified (1 source) Personal history of colon polyps, unspecified; Translations: [Personal history of colon polyps, unspecified] Onset: 05-12-2025 Viral infection (1 source) COVID-19 Results Test Name Value Interpretation Reference Range Facility Ambulatory Visit Summaryon 0 06-03-2025 Ambulatory Visit Summary Ambulatory Visit Summary DARRELL NELSON :1950 Visit Date:06/03/2025 Ambulatory Visit Instructions Your Diagnosis Urinary retention BPH with urinary obstruction Elevated PSA History of kidney stones Your Care Team Attending Physician - Rock LUJAN MD Primary Care Physician - ABIGAIL SANCHEZ MD This Is Your Medications List Contact prescribing physician if questions or concerns Non-Formulary Medication (Iron) losartan (losartan 25 mg Tab) multivitamin with [...] surgery, Repair of bilateral inguinal hernias, Sinus Surgery, Small bowel resection. Discharge Vitals Temperature (Temporal Artery) 37 ???C Heart Rate (Peripheral) 80 Respiratory Rate 16 Blood Pressure 138/89 Height 177 cm Height 70 in Weight 74.7 kg Weight 164.685 lb BMI 23.84 What to do next Scheduled Follow-Up Appointments Monday2025 8:15 AM EST With: Rock LUJAN MD Where: [facility] [address], [address] [place] [address]- You Need to Schedule the Following Appointments Follow Up with Rock LUJAN MD, URL When: Where: [address] [address]- Medications What How Much When Instructions Unchanged losartan (losartan 25 mg Tab) 90 EA, TAKE 1 TABLET BY MOUTH DAILY Contact prescribing physician if questions or concerns Unchanged multivitamin with minerals (Daily Multiple for Men 50+ oral tablet) By Mouth Every day Contact prescribing physician if questions or concerns Unchanged Non-Formulary Medication (Iron) 65 Milligram Contact prescribing physician if questions or concerns Unchanged psyllium (Metamucil) By Mouth 2 times a day Contact prescribing physician if questions or concerns Unchanged tamsulosin (tamsulosin 0.4 mg Cap) 1 Capsules By Mouth 2 times a day Contact prescribing physician if questions or concerns Allergies No Known Allergies Problems Ongoing - Any problem that you are currently receiving treatment for. BMI 27.0-27.9,adult BPH with urinary obstruction Degenerative disc disease, cervical Elevated PSA Epididymitis Gross hematuria History of kidney stones HTN (hypertension) Inguinal hernia Iron deficiency anemia Kidney stones Nocturia Seasonal [...] choosing us for your care. Education Materials Acute Urinary Retention, Male Acute urinary retention is a condition in which a person is unable to pass urine or can only pass a little urine. This condition can happen suddenly and last for a short time. If left untreated, it can become long-term (chronic) and result in kidney damage or other serious complications. What are the causes? This condition may be caused by: ??? Obstruction or narrowing of the tube that drains the bladder (urethra). This may be caused by surgery, problems with nearby organs, or injury to the bladder or urethra. ??? Problems with the nerves in the bladder. ??? Tumors in the area of the pelvis, bladder, or urethra. ??? Certain medicines. ??? Bladder or urinary tract infection. ??? Constipation. What increases the risk? This condition is more likely to develop in older men. As men age, their prostate may become larger and may start to press or squeeze on the bladder or the urethra. Other chronic health conditions can increase the risk of acute urinary retention. These include: ??? Diseases such as multiple sclerosis. ??? Spinal cord injuries. ??? Diabetes. ??? Degenerative cognitive conditions, such as delirium or dementia. ??? Psychological conditions. A man may hold his urine due to trauma or because he does not want to use the bathroom. What are the signs or symptoms? Symptoms of this condition include: ??? Trouble urinating. ??? Pain in the lower abdomen. How is this diagnosed? This condition is diagnosed based on a physical exam and your medical history. You m (more content not included)... Normal [facility] Urology Office/Clinic Noteon 06-03-2025 Urology Office/Clinic Note Urology Office/Clinic Note Chief Complaint F/u to discuss cath removal HPI Staff Pt had a bowel resection 05/12/12 at [facility]. Catheter was placed and removed a couple of times. Each time removed pt was unable to void on his own. An indwelling cath was placed this past Monday and was left in. He is here to discuss cath removal today. Pt states he had no problem emptying his bladder before the procedure at [facility]. Dx: elevated PSA (PSA due in Oct 2025), kidney stones, BPH with urinary obstruction, epididymitis and inguinal hernia. Tamsulosin BID History of Present Illness Tests reviewed: reviewed UA, ER notes, CT scan, CMP I have reviewed the previous health record information and history for this patient from Dr. Lujan. I have reviewed and verified the staff [...] See HPI. Physical Exam Vitals & Measurements T: 37 ???C(Temporal Artery) HR: 80(Peripheral) RR: 16 BP: 138/89 HT: 177 cm HT: 70 in WT: 74.7 kg WT: 164.685 lb BMI: 23.84 General Appearance: alert, no distress, well nourished, well developed male. Assessment/Plan 1. Urinary retention (R33.9: Retention of urine, unspecified) CT AP w con 05/20/25 - Symmetric renal parenchymal enhancement. Region of scarring within lateral R kidney. Moderate collecting system dilatation of bilateral kidneys wo obstructing stone. Urinary bladder prominent in size within small diverticulum along superior anterior portion. CT AP w con 05/26/25 - Christian catheter in bladder with gas. Some bladder diverticuli. Scarring in kidneys. Benign renal cysts. Improved collecting system dilatation mild residual urothelial enhancement R kidney. Perinephric stranding bilaterally. Fluid in L inguinal canal. Shares he went into UR after bowel resection on 05/12/25 at [facility], catheter was placed. Failed TOV 05/28/25, difficulty with catheter replacement per pt. States he was discharged 05/29/25. No issues with emptying previously. Discussed options including repeat TOV and restarting Flomax. Advised pt if he fails TOV again, will need to proceed with cysto to evaluate for GIMENEZ. Pt's catheter has been removed in office with no complications. -Increase fluid intake -ER or call our office (if open) if they are not able to void in the next 4-6 hrs -ER for severe bleeding, fever over 101, and/or shaking chills -Restart Flomax 0.4 mg bid -Pt to call with update on sxs 2. BPH with urinary obstruction (N40.1: Benign prostatic hyperplasia with lower urinary tract symptoms) IPSS not completed, pt has catheter (5). Was taking Flomax 0.4mg bid. See #1. 3. Elevated PSA (R97.20: Elevated prostate specific antigen [PSA]) PSA 12/11/19 - 7.7 & 15.2% 06/02/20 - 9.6 & 15.9% 10/12/20 - 8.1 & 17.3% 03/17/21 - 8.5 & 16.1% 10/19/21 - 9.1 & 17.5% 04/20/22 - 6.5 & 18.5% 02/08/23 - 7.6 & 19.7% 08/16/23 - 9.3 & 15.4% 03/12/24 - 7.7 & 21.0% 10/09/24 - 9.0 & 21.7% 04/16/25 - 9.1 & 18.4% HUGO 10/16/24 ~40g, no nodules. -PSAFT in 5 mos 4. History of kidney stones (Z87.442: Personal history of urinary calculi) Hx of ESWL 01/2016. Has required stent placement. CT AP w con 05/20/25 - Moderate collecting system dilatation of bilateral kidneys wo obstructing stone. Believes he had a stone within the last 1-2 years. -KUB to be done prior to next visit Overall the patient had been followed for his elevation in PSA with a planned follow-up in October 2025 with a KUB as well. Unfortunately he went into urinary retention status post small bowel obstruction surgery. Apparently he had several voiding trials which he failed. He presents today with indwelling Christian catheter. He has been maintained on twice daily tamsulosin at 0.4 mg p.o. twice daily and this happened even while on that medication. Christian catheter removed again today for a voiding trial. If unable to void repeat Christian catheterization will be required and cystoscopy would then be indicated to evaluate the bladder outlet. I did give him the BPH clinical pathway sheet to look at various procedural interventions, including Aquablation. He agrees with the plan and will keep us updated. Follow-up With When Contact Information Rock LUJAN MD, URL [address] [place], [place] [id number]- Additional Instructions: has f/u 11/05/25 w/ PSA and KUB Patient Education Acute Urinary Retention, Male I, Ale Pelaez, personally scribed for Dr. Lujan on (more content not included)... Normal [facility] Comment on above: Result Comment: Elec tronically Signed By: Rock LUJAN MD\.br\Date and Time Signed: 06/03/25 10:08 EDT\.br\Electronically Co-Signed By: Ale Pelaez\.br\Date and Time Co-Signed: 06/03/25 10:06 EDT Orders Onlyon 05-30-2025 Orders Only Normal [facility] 30on 05-29-2025 30 Normal [facility] BASIC METABOLIC PANELon 05-03 Anion gap [Moles/Vol] 9 mmol/L Normal 7-20 [facility] Comment on above: Performed By: #### L AB15 ####[facility] ([facility])[address] [place] [address] Calcium [Mass/Vol] 8.1 mg/dL Low 8.6-10.3 [facility] Comment on above: Performed By: #### L AB15 ####[facility] ([facility])[address] [place] [address] Chloride [Moles/Vol] 102 mmol/L Normal 98-107 [facility] Comment on above: Performed By: #### L AB15 ####[facility] ([facility])[address] [place] [address] CO2 [Moles/Vol] 29 mmol/L Normal 21-31 [facility] Comment on above: Performed By: #### L AB15 ####[facility] ([facility])[address] [place] [address] Creatinine [Mass/Vol] 0.67 mg/dL Low 0.70-1.30 [facility] Comment on above: Performed By: #### L AB15 ####[facility] ([facility])[address] [place] [address] GLOMERULAR FILTRATION RATE ML/MIN/1.73 SQ M.PREDICTED 96.8 mL/min/1.73m*2 Normal >60.0 [facility] Comment on above: Result Comment: The [facility]???s estimated glomerular filtration rate (eGFR) will no longer include consideration of race in its calculation. The National Kidney Foundation???s eGFR Task Force developed new recommendations for the estimation of the glomerular filtration rate in the [place] They recommend immediate implementation of the new equation refit without the race variable in all laboratories because the calculation does not include race. In addition to not including race in the calculation and reporting, it included diversity in its development, and has acceptable performance characteristics and potential consequences that do not disproportionately affect any one group of individuals. Performed By: #### L AB15 ####[facility] ([facility])[address] [place] [address] Glucose [Mass/Vol] 100 mg/dL Normal 70-100 [facility] Comment on above: Performed By: #### L AB15 ####[facility] ([facility])[address] [place] [address] Potassium [Moles/Vol] 3.9 mmol/L Normal 3.5-5.1 [facility] Comment on above: Performed By: #### L AB15 ####[facility] ([facility])[address] [place] [address] Sodium [Moles/Vol] 136 mmol/L Normal 136-145 [facility] Comment on above: Performed By: #### L AB15 ####[facility])[address] [place] [address] Urea nitrogen [Mass/Vol] 6 mg/dL Low 7-25 [facility] Comment on above: Performed By: #### L AB15 ####[facility] [facility] ([facility])[address] [place] [address] UREA NITROGEN/CREATININ E (MASS RATIO) IN SER/PLAS 9.0 Normal [facility] Comment on above: Performed By: #### L [id number] ####[facility] ([facility])[address] [place] [address] CBC WITH AUTO DIFFERENTIALon 05-29-2025 Erythrocyte distribution width (RBC) [Ratio] 15.2 % High 11.5-15.0 [facility] Comment on above: Performed By: #### L [id number] ####[facility] ([facility])[address] [place] [address] ERYTHROCYTE MEAN CORPUSCULAR HEMOGLOBIN CONCENTRATION (G/DL) BY AUTOMATED 33.9 g/dL Normal 32.0-35.0 [facility] Comment on above: Performed By: #### L [id number] ####[facility] ([facility])[address] [place] [address] Hematocrit (Bld) [Volume fraction] 27.4 % Low 39.0-50.0 [facility] Comment on above: Performed By: #### L [id number] ####[facility] ([facility])[address] [place] [address] Hemoglobin (Bld) [Mass/Vol] 9.3 g/dL Low 13.0-17.0 [facility] Comment on above: Performed By: #### L [id number] ####[facility] ([facility])[address] [place] [address] MCH (RBC) [Entitic mass] 31.4 pg Normal 27.0-33.0 [facility] Comment on above: Performed By: #### L [id number] ####[facility] ([facility])[address] [address] MCV (RBC) [Entitic vol] 92.6 fL Normal 82.0-98.0 [facility] Comment on above: Performed By: #### L [id number] ####[facility] ([facility])[address] [place] [address] NRBC (PER 100 WBCS) BY AUTOMATED COUNT 0.0 % Normal 0 [facility] Comment on above: Performed By: #### L [id number] ####[facility] ([facility])[address] [place] [address] PLATELETS (10*3/UL) IN BLOOD AUTOMATED COUNT 356 10*3/uL Normal 150-400 [facility] Comment on above: Performed By: #### L [id number] ####[facility] ([facility])[address] [place] [address] RBC (Bld) [#/Vol] 2.96 10*6/uL Low 4.20-5.70 [facility] Comment on above: Performed By: #### L [id number] ####[facility] ([facility])[address] [place] [address] WBC (Bld) [#/Vol] 13.28 10*3/uL High 4.00-10.60 [facility] Comment on above: Performed By: #### L [id number] ####[facility] ([facility])[address] [place] [address] MAGNESIUMon 05-29-2025 Magnesium [Mass/Vol] 2.0 mg/dL Normal 1.9-2.7 [facility] Comment on above: Performed By: #### L [id number] ####[facility] ([facility])[address] [place] [address] MANUAL DIFFERENTIALon 2024 BASOPHILS (10*3/UL) IN BLOOD BY CALCULATION 0.07 10*3/uL Normal 0.00-0.20 [facility] Comment on above: Performed By: #### L [id number] ####[facility] ([facility])[address] [place] [address] BASOPHILS/100 LEUKOCYTES IN BLOOD BY AUTOMATED COUNT 0.5 % Normal 0.0-1.0 [facility] Comment on above: Performed By: #### L [id number] ####[facility] ([facility])[address] [place] [address] EOSINOPHILS (10*3/UL) IN BLOOD BY CALCULATION 0.28 10*3/uL Normal 0.00-0.50 [facility] Comment on above: Performed By: #### L [id number] ####[facility] ([facility])[address] [place] [address] EOSINOPHILS/100 LEUKOCYTES IN BLOOD BY AUTOMATED COUNT 2.1 % Normal 0.0-6.0 [facility] Comment on above: Performed By: #### L [id number] ####[facility] ([facility])[address] [place] [address] IMMATURE GRANULOCYTES (10*3/UL) IN BLOOD BY CALCULATION 0.15 10*3/uL Normal 0.00-0.20 [facility] Comment on above: Performed By: #### L [id number] ####[facility] ([facility])[address] [place] [address] IMMATURE GRANULOCYTES/100 LEUKOCYTES IN BLOOD BY AUTOMATED COUNT 1.1 % High 0.0-1.0 [facility] Comment on above: Performed By: #### L [id number] ####[facility] ([facility])[address] [place] [address] LYMPHOCYTES (10*3/UL) IN BLOOD BY CALCULATION 2.40 10*3/uL Normal 1.20-4.00 [facility] Comment on above: Performed By: #### L [id number] ####[facility] ([facility])[address] [place] [address] LYMPHOCYTES/100 LEUKOCYTES IN BLOOD BY AUTOMATED COUNT 18.1 % Low 20.0-45.0 [facility] Comment on above: Performed By: #### L [id number] ####[facility] ([facility])[address] [place] [address] MONOCYTES (10*3/UL) IN BLOOD BY CALCUATION 1.59 10*3/uL High 0.10-1.00 [facility] Comment on above: Performed By: #### L [id number] ####[facility] ([facility])[address] [place] [address] MONOCYTES/100 LEUKOCYTES IN BLOOD BY AUTOMATED COUNT 12.0 % Normal 5.0-12.0 [facility] Comment on above: Performed By: #### L [id number] ####[facility] ([facility])[address] [place] [address] NEUTROPHILS (10*3/UL) IN BLOOD BY CALCULATION 8.8 10*3/uL High 1.6-7.6 [facility] Comment on above: Performed By: #### L [id number] ####[facility] ([facility])[address] [place] [address] NEUTROPHILS/100 LEUKOCYTES IN BLOOD BY AUTOMATED COUNT 66.2 % Normal 40.0-72.0 [facility] Comment on above: Performed By: #### L [id number] ####[facility] ([facility])[address] [place] [address] 05-29-2025 Magnesium [Mass/Vol] 3.0 mg/dL Normal 2.5-5.0 [facility] Comment on above: Performed By: #### L [id number] ####[facility] ([facility])[address] [place] [address] 05-28-2025 30 Normal [facility] 30 The patient is Moder ately Stable - Low risk of patient condition declining or worsening The patient's goals for the shift include discharge The clinical goals for the shift include vss comfort Normal [facility] 30 Normal [facility] BASIC METABOLIC PANELon 08-2 Anion gap [Moles/Vol] 11 mmol/L Normal 7-20 [facility] Comment on above: Performed By: #### L [id number] ####[facility] ([facility])[address] [facility] [address] Calcium [Mass/Vol] 7.8 mg/dL Low 8.6-10.3 [facility] Comment on above: Performed By: #### L [id number] ####[facility] ([facility])[address] [place] [address] Chloride [Moles/Vol] 103 mmol/L Normal 98-107 [facility] Comment on above: Performed By: #### L [id number] ####[facility] ([facility])[address] [place] [address] CO2 [Moles/Vol] 25 mmol/L Normal 21-31 [facility] Comment on above: Performed By: #### L [id number] ####[facility] ([facility])[address] [place] [address] Creatinine [Mass/Vol] 0.67 mg/dL Low 0.70-1.30 [facility] Comment on above: Performed By: #### L [id number] ####[facility] ([facility])[address] [place] [address] GLOMERULAR FILTRATION RATE ML/MIN/1.73 SQ M.PREDICTED 96.8 mL/min/1.73m*2 Normal >60.0 [facility] Comment on above: Result Comment: The [facility]???s estimated glomerular filtration rate (eGFR) will no longer include consideration of race in its calculation. The National Kidney Foundation???s eGFR Task Force developed new recommendations for the estimation of the glomerular filtration rate in the [place] They recommend immediate implementation of the new equation refit without the race variable in all laboratories because the calculation does not include race. In addition to not including race in the calculation and reporting, it included diversity in its development, and has acceptable performance characteristics and potential consequences that do not disproportionately affect any one group of individuals. Performed By: #### L [id number] ####[facility] ([facility])[address] [place] [address] Glucose [Mass/Vol] 98 mg/dL Normal 70-100 [facility] Comment on above: Performed By: #### L [id number] ####[facility] ([facility])[address] [place] [address] Potassium [Moles/Vol] 3.8 mmol/L Normal 3.5-5.1 [facility] Comment on above: Performed By: #### L [id number] ####[facility] ([facility])[address] [place] [address] Sodium [Moles/Vol] 135 mmol/L Low 136-145 [facility] Comment on above: Performed By: #### L [id number] ####[facility] ([facility])[address] [place] [address] Urea nitrogen [Mass/Vol] 6 mg/dL Low 7-25 [facility] Comment on above: Performed By: #### L [id number] ####[facility] ([facility])[address] [place] [address] UREA NITROGEN/CREATININ E (MASS RATIO) IN SER/PLAS 9.0 Normal [facility] Comment on above: Performed By: #### L [id number] ####[facility] ([facility])[address] [address] BODY FLUID CULTUREon 05-28-2 025 Amoxicillin+Clavul anate [Susc] >16/8 Resistant [facility] Comment on above: Performed By: #### L [id number] ####[facility] ([facility])[address] [place] [address] Ampicillin [Susc] >16 Resistant [facility] Comment on above: Performed By: #### L [id number] ####[facility] ([facility])[address] [place] [address] Ampicillin+Sulbact am [Susc] >16/8 Resistant [facility] Comment on above: Performed By: #### L [id number] ####[facility] ([facility])[address] [place] [address] ceFAZolin [Susc] Resistant [facility] Comment on above: Performed By: #### L [id number] ####[facility] ([facility])[address] [place] [address] cefTRIAXone [Susc] <=1 Susceptible [facility] Comment on above: Performed By: #### L [id number] ####[facility] ([facility])[address] [place] [address] Ciprofloxacin [Susc] <=0.25 Susceptible [facility] Comment on above: Performed By: #### L [id number] ####[facility] ([facility])[address] [place] [address] Gentamicin [Susc] <=2 Susceptible [facility] Comment on above: Performed By: #### L [id number] ####[facility] ([facility])[address] [place] [address] Tobramycin [Susc] <=2 Susceptible [facility] Comment on above: Performed By: #### L [id number] ####[facility] ([facility])[address] [place] [address] CBC WITH AUTO DIFFERENTIALon 05-28-2025 Erythrocyte distribution width (RBC) [Ratio] 15.5 % High 11.5-15.0 [facility] Comment on above: Performed By: #### L [id number] ####[facility] ([facility])[address] [place] [address] ERYTHROCYTE MEAN CORPUSCULAR HEMOGLOBIN CONCENTRATION (G/DL) BY AUTOMATED 34.0 g/dL Normal 32.0-35.0 [facility] Comment on above: Performed By: #### L [id number] ####[facility] ([facility])[address] [place] [address] Hematocrit (Bld) [Volume fraction] 25.6 % Low 39.0-50.0 [facility] Comment on above: Performed By: #### L [id number] ####[facility] ([facility])[address] [place] [address] Hemoglobin (Bld) [Mass/Vol] 8.7 g/dL Low 13.0-17.0 [facility] Comment on above: Performed By: #### L [id number] ####[facility] ([facility])[address] [place], [place] [address] MCH (RBC) [Entitic mass] 32.2 pg Normal 27.0-33.0 [facility] Comment on above: Performed By: #### L [id number] ####[facility] ([facility])[address] [place], [place] [address] MCV (RBC) [Entitic vol] 94.8 fL Normal 82.0-98.0 [facility] Comment on above: Performed By: #### L [id number] ####[facility] ([facility])[address] [place], [place] [address] NRBC (PER 100 WBCS) BY AUTOMATED COUNT 0.0 % Normal 0 [facility] Comment on above: Performed By: #### L [id number] ####[facility] ([facility])[address] [place] [address] PLATELETS (10*3/UL) IN BLOOD AUTOMATED COUNT 330 10*3/uL Normal 150-400 [facility] Comment on above: Performed By: #### L [id number] ####[facility] ([facility])[address] [place], [place] [address] RBC (Bld) [#/Vol] 2.70 10*6/uL Low 4.20-5.70 [facility] Comment on above: Performed By: #### L [id number] ####[facility] ([facility])[address] [place] [address] WBC (Bld) [#/Vol] 13.32 10*3/uL High 4.00-10.60 [facility] Comment on above: Performed By: #### L [id number] ####[facility] ([facility])[address] [place] [address] CT GUIDED ABSCESS FLUID GABRIEL ECTION DRAINAGEon 05-28-2025 CT GUIDED ABSCESS FLUID COLLECTION DRAINAGE Invalid Interpretation Code [facility] MAGNESIUMon 05-28-2025 Magnesium [Mass/Vol] 1.9 mg/dL Normal 1.9-2.7 [facility] Comment on above: Performed By: #### L [id number] ####[facility] ([facility])[address] [place] [address] PHOSPHORUSon 05-28-2025 Magnesium [Mass/Vol] 2.7 mg/dL Normal 2.5-5.0 [facility] Comment on above: Performed By: #### L [id number] ####[facility] ([facility])[address] [place] [address] TEST MANUAL DIFFERENTIALon 0 05-28-2025 EOSINOPHILS (10*3/UL) IN BLOOD BY CALCULATION 0.27 10*3/uL Normal 0.00-0.50 [facility] Comment on above: Order Comment: Leelee l Red Cell Population Performed By: #### L [id number] ####[facility] ([facility])[address] [place] [address] EOSINOPHILS/100 LEUKOCYTES IN BLOOD BY MANUAL COUNT 2 % Normal 0-6 [facility] Comment on above: Order Comment: Leelee l Red Cell Population Performed By: #### L [id number] ####[facility] ([facility])[address] [place] [address] LYMPHOCYTES (10*3/UL) IN BLOOD BY CALCULATION 2.13 10*3/uL Normal 1.20-4.00 [facility] Comment on above: Order Comment: Leelee l Red Cell Population Performed By: #### L [id number] ####[facility] ([facility])[address] [place] [address] LYMPHOCYTES/100 LEUKOCYTES IN BLOOD BY MANUAL COUNT 16 % Low 20-45 [facility] Comment on above: Order Comment: Leelee l Red Cell Population Performed By: #### L [id number] ####[facility] ([facility])[address] [place] [address] MONOCYTES (10*3/UL) IN BLOOD BY CALCUATION 2.00 10*3/uL High 0.10-1.00 [facility] Comment on above: Order Comment: Leelee l Red Cell Population Performed By: #### L [id number] ####[facility] ([facility])[address] [place] [address] MONOCYTES/100 LEUKOCYTES IN BLOOD BY MANUAL COUNT 15 % High 5-12 [facility] Comment on above: Order Comment: Leelee l Red Cell Population Performed By: #### L [id number] ####[facility] ([facility])[address] [place] [address] NEUTROPHILS (10*3/UL) IN BLOOD BY CALCULATION 8.9 10*3/uL High 1.6-7.6 [facility] Comment on above: Order Comment: Leelee l Red Cell Population Performed By: #### L [id number] ####[facility] ([facility])[address] [place] [address] SEGEMENTED NEUTROPHILS/100 LEUKOCYTES BY MANUAL COUNT 67 % Normal 40-72 [facility] Comment on above: Order Comment: Leelee l Red Cell Population Performed By: #### L [id number] ####[facility] ([facility])[address] [place] [address] 30on 05-27-2025 30 Normal [facility] 30 Normal [facility] BASIC METABOLIC PANELon 05-03 Anion gap [Moles/Vol] 10 mmol/L Normal 7-20 [facility] Comment on above: Performed By: #### L [id number] ####[facility] ([facility])[address] [place] [address] Calcium [Mass/Vol] 8.0 mg/dL Low 8.6-10.3 [facility] Comment on above: Performed By: #### L [id number] ####[facility] ([facility])[address] [place] [address] Chloride [Moles/Vol] 101 mmol/L Normal 98-107 [facility] Comment on above: Performed By: #### L [id number] ####[facility] ([facility])[address] [place] [address] CO2 [Moles/Vol] 28 mmol/L Normal 21-31 [facility] Comment on above: Performed By: #### L [id number] ####[facility] ([facility])[address] [place] [address] Creatinine [Mass/Vol] 0.65 mg/dL Low 0.70-1.30 [facility] Comment on above: Performed By: #### L [id number] ####[facility] ([facility])[address] [place] [address] GLOMERULAR FILTRATION RATE ML/MIN/1.73 SQ M.PREDICTED 97.7 mL/min/1.73m*2 Normal >60.0 [facility] Comment on above: Result Comment: The [facility]???s estimated glomerular filtration rate (eGFR) will no longer include consideration of race in its calculation. The National Kidney Foundation???s eGFR Task Force developed new recommendations for the estimation of the glomerular filtration rate in the [place] They recommend immediate implementation of the new equation refit without the race variable in all laboratories because the calculation does not include race. In addition to not including race in the calculation and reporting, it included diversity in its development, and has acceptable performance characteristics and potential consequences that do not disproportionately affect any one group of individuals. Performed By: #### L [id number] ####[facility] ([facility])[address] [place] [address] Glucose [Mass/Vol] 95 mg/dL Normal 70-100 [facility] Comment on above: Performed By: #### L [id number] ####[facility] ([facility]ER)[address] [place] [address] Potassium [Moles/Vol] 3.6 mmol/L Normal 3.5-5.1 [facility] Comment on above: Performed By: #### L [id number] ####[facility] ([facility])[address] [place] [address] Sodium [Moles/Vol] 135 mmol/L Low 136-145 [facility] Comment on above: Performed By: #### L [id number] ####[facility] ([facility])[address] [place] [address] Urea nitrogen [Mass/Vol] 6 mg/dL Low 7-25 [facility] Comment on above: Performed By: #### L [id number] ####[facility] ([facility])[address] [place] [address] UREA NITROGEN/CREATININ E (MASS RATIO) IN SER/PLAS 9.2 Normal [facility] Comment on above: Performed By: #### L [id number] ####[facility] ([facility])[address] [place] [address] CBC WITH AUTO DIFFERENTIALon 05-27-2025 Erythrocyte distribution width (RBC) [Ratio] 15.3 % High 11.5-15.0 [facility] Comment on above: Performed By: #### L [id number] ####[facility] ([facility])[address] [place] [address] ERYTHROCYTE MEAN CORPUSCULAR HEMOGLOBIN CONCENTRATION (G/DL) BY AUTOMATED 33.8 g/dL Normal 32.0-35.0 [facility] Comment on above: Performed By: #### L [id number] ####[facility] ([facility])[address] [place] [address] Hematocrit (Bld) [Volume fraction] 26.9 % Low 39.0-50.0 [facility] Comment on above: Performed By: #### L [id number] ####[facility] ([facility])[address] [place] [address] Hemoglobin (Bld) [Mass/Vol] 9.1 g/dL Low 13.0-17.0 [facility] Comment on above: Performed By: #### L [id number] ####[facility] ([facility])[address] [place] [address] MCH (RBC) [Entitic mass] 31.0 pg Normal 27.0-33.0 [facility] Comment on above: Performed By: #### L [id number] ####[facility] ([facility])[address] [place] [address] MCV (RBC) [Entitic vol] 91.5 fL Normal 82.0-98.0 [facility] Comment on above: Performed By: #### L [id number] ####[facility] ([facility])[address] [place] [address] NRBC (PER 100 WBCS) BY AUTOMATED COUNT 0.0 % Normal 0 [facility] Comment on above: Performed By: #### L [id number] ####[facility] ([facility])[address] [place] [address] PLATELETS (10*3/UL) IN BLOOD AUTOMATED COUNT 366 10*3/uL Normal 150-400 [facility] Comment on above: Performed By: #### L [id number] ####[facility] ([facility])[address] [place] [address] RBC (Bld) [#/Vol] 2.94 10*6/uL Low 4.20-5.70 [facility] Comment on above: Performed By: #### L [id number] ####[facility] ([facility])[address] [place] [address] WBC (Bld) [#/Vol] 14.66 10*3/uL High 4.00-10.60 [facility] Comment on above: Performed By: #### L [id number] ####[facility] ([facility])[address] [place] [address] MAGNESIUMon 05-27-2025 Magnesium [Mass/Vol] 1.8 mg/dL Low 1.9-2.7 [facility] Comment on above: Performed By: #### L [id number] ####[facility] ([facility])[address] [place] [address] MANUAL DIFFERENTIALon 2024 BASOPHILS (10*3/UL) IN BLOOD BY CALCULATION 0.07 10*3/uL Normal 0.00-0.20 [facility] Comment on above: Performed By: #### L [id number] ####[facility] ([facility])[address] [place] [address] BASOPHILS/100 LEUKOCYTES IN BLOOD BY AUTOMATED COUNT 0.5 % Normal 0.0-1.0 [facility] Comment on above: Performed By: #### L [id number] ####[facility] ([facility])[address] [place] [address] EOSINOPHILS (10*3/UL) IN BLOOD BY CALCULATION 0.29 10*3/uL Normal 0.00-0.50 [facility] Comment on above: Performed By: #### L [id number] ####[facility] ([facility])[address] [place] [address] EOSINOPHILS/100 LEUKOCYTES IN BLOOD BY AUTOMATED COUNT 2.0 % Normal 0.0-6.0 [facility] Comment on above: Performed By: #### L [id number] ####[facility] ([facility])[address] [place] [address] IMMATURE GRANULOCYTES (10*3/UL) IN BLOOD BY CALCULATION 0.16 10*3/uL Normal 0.00-0.20 [facility] Comment on above: Performed By: #### L [id number] ####[facility] ([facility])[address] [place] [address] IMMATURE GRANULOCYTES/100 LEUKOCYTES IN BLOOD BY AUTOMATED COUNT 1.1 % High 0.0-1.0 [facility] Comment on above: Performed By: #### L [id number] ####[facility] ([facility])[address] [place] [address] LYMPHOCYTES (10*3/UL) IN BLOOD BY CALCULATION 2.62 10*3/uL Normal 1.20-4.00 [facility] Comment on above: Performed By: #### L [id number] ####[facility] ([facility])[address] [place] [address] LYMPHOCYTES/100 LEUKOCYTES IN BLOOD BY AUTOMATED COUNT 17.9 % Low 20.0-45.0 [facility] Comment on above: Performed By: #### L [id number] ####[facility] ([facility])[address] [place] [id number] MONOCYTES (10*3/UL) IN BLOOD BY CALCUATION 1.57 10*3/uL High 0.10-1.00 [facility] Comment on above: Performed By: #### L [id number] ####[facility] ([facility])[address] [place] [address] MONOCYTES/100 LEUKOCYTES IN BLOOD BY AUTOMATED COUNT 10.7 % Normal 5.0-12.0 [facility] Comment on above: Performed By: #### L [id number] ####[facility] [facility] ([facility])[address] [address] NEUTROPHILS (10*3/UL) IN BLOOD BY CALCULATION 9.9 10*3/uL High 1.6-7.6 [facility] Comment on above: Performed By: #### L [id number] ####[facility] ([facility])[address] [address] NEUTROPHILS/100 LEUKOCYTES IN BLOOD BY AUTOMATED COUNT 67.8 % Normal 40.0-72.0 [facility] Comment on above: Performed By: #### L [id number] ####[facility] ([facility])[address] [address] PHOSPHORUSon 05-27-2025 Magnesium [Mass/Vol] 2.4 mg/dL Low 2.5-5.0 [facility] Comment on above: Performed By: #### L [id number] ####[facility] ([facility])[address] [address] 30on 05-26-2024 30 Normal [facility] BASIC METABOLIC PANELon 05-03 Anion gap [Moles/Vol] 11 mmol/L Normal 7-20 [facility] Comment on above: Performed By: #### L [id number] ####[facility] ([facility])[address] [place] [address] Calcium [Mass/Vol] 7.7 mg/dL Low 8.6-10.3 [facility] Comment on above: Performed By: #### L [id number] ####[facility] ([facility] [place] [address] Chloride [Moles/Vol] 100 mmol/L Normal 98-107 [facility] Comment on above: Performed By: #### L [id number] ####[facility] ([facility])[address] [place] [address] CO2 [Moles/Vol] 28 mmol/L Normal 21-31 [facility] Comment on above: Performed By: #### L [id number] ####[facility] ([facility])[address] [place] [address] Creatinine [Mass/Vol] 0.67 mg/dL Low 0.70-1.30 [facility] Comment on above: Performed By: #### L [id number] ####[facility] ([facility])[address] [place] [address] GLOMERULAR FILTRATION RATE ML/MIN/1.73 SQ M.PREDICTED 96.8 mL/min/1.73m*2 Normal >60.0 [facility] Comment on above: Result Comment: The [facility]???s estimated glomerular filtration rate (eGFR) will no longer include consideration of race in its calculation. The National Kidney Foundation???s eGFR Task Force developed new recommendations for the estimation of the glomerular filtration rate in the [place] They recommend immediate implementation of the new equation refit without the race variable in all laboratories because the calculation does not include race. In addition to not including race in the calculation and reporting, it included diversity in its development, and has acceptable performance characteristics and potential consequences that do not disproportionately affect any one group of individuals. Performed By: #### L [id number] ####[facility] ([facility])[address] [place] [address] Glucose [Mass/Vol] 89 mg/dL Normal 70-100 [facility] Comment on above: Performed By: #### L [id number] ####[facility] ([facility])[address] [place] [address] Potassium [Moles/Vol] 3.5 mmol/L Normal 3.5-5.1 [facility] Comment on above: Performed By: #### L [id number] ####[facility] ([facility])[address] [place] [address] Sodium [Moles/Vol] 135 mmol/L Low 136-145 [facility] Comment on above: Performed By: #### L [id number] ####[facility] ([facility])[address] [place] [address] Urea nitrogen [Mass/Vol] 6 mg/dL Low 7-25 [facility] Comment on above: Performed By: #### L [id number] ####[facility] ([facility])[address] [place] [address] UREA NITROGEN/CREATININ E (MASS RATIO) IN SER/PLAS 9.0 Normal [facility] Comment on above: Performed By: #### L [id number] ####[facility] ([facility])[address] [place] [address] BLOOD CULTUREon 05-26-2025 Bacteria identified Cx Nom (Bld) No growth at 5 days Normal [facility] Comment on above: Performed By: #### L [id number] ####[facility] ([facility])[address] [place] [address] Order Comment: From a different site than #1. CBC WITH AUTO DIFFERENTIALon 05-26-2025 Erythrocyte distribution width (RBC) [Ratio] 15.2 % High 11.5-15.0 [facility] Comment on above: Performed By: #### L [id number] ####[facility] ([facility])[address] [place] [address] ERYTHROCYTE MEAN CORPUSCULAR HEMOGLOBIN CONCENTRATION (G/DL) BY AUTOMATED 33.9 g/dL Normal 32.0-35.0 [facility] Comment on above: Performed By: #### L [id number] ####[facility] ([facility])[address] [place] [address] Hematocrit (Bld) [Volume fraction] 25.4 % Low 39.0-50.0 [facility] Comment on above: Performed By: #### L [id number] ####[facility] ([facility])[address] [place] [address] Hemoglobin (Bld) [Mass/Vol] 8.6 g/dL Low 13.0-17.0 [facility] Comment on above: Performed By: #### L [id number] ####[facility] ([facility])[address] [place] [address] MCH (RBC) [Entitic mass] 30.8 pg Normal 27.0-33.0 [facility] Comment on above: Performed By: #### L [id number] ####[facility] ([facility])[address] [place] [address] MCV (RBC) [Entitic vol] 91.0 fL Normal 82.0-98.0 [facility] Comment on above: Performed By: #### L [id number] ####[facility] ([facility])[address] [place] [address] NRBC (PER 100 WBCS) BY AUTOMATED COUNT 0.0 % Normal 0 [facility] Comment on above: Performed By: #### L [id number] ####[facility] ([facility])[address] [place] [address] PLATELETS (10*3/UL) IN BLOOD AUTOMATED COUNT 338 10*3/uL Normal 150-400 [facility] Comment on above: Performed By: #### L [id number] ####[facility] ([facility])[address] [place] [address] RBC (Bld) [#/Vol] 2.79 10*6/uL Low 4.20-5.70 [facility] Comment on above: Performed By: #### L [id number] ####[facility] ([facility])[address] [place] [address] WBC (Bld) [#/Vol] 15.82 10*3/uL High 4.00-10.60 [facility] Comment on above: Performed By: #### L [id number] ####[facility] ([facility])[address] [place] [address] CT ABDOMEN PELVIS W IV CONTR Kala 05-26-2025 CT ABDOMEN PELVIS W IV CONTRAST Invalid Interpretation Code [facility] LACTIC ACID WITH 4 HOUR REFL EXon 05-26-2025 LACTATE (MMOL/L) IN SER/PLAS 0.9 mmol/L Normal 0.5-2.2 [facility] Comment on above: Performed By: #### L [id number] ####[facility] ([facility])[address] [place] [address] MAGNESIUMon 05-26-2025 Magnesium [Mass/Vol] 1.8 mg/dL Low 1.9-2.7 [facility] Comment on above: Performed By: #### L [id number] ####[facility] ([facility])[address] [place] [address] MANUAL DIFFERENTIALon 2024 BASOPHILS (10*3/UL) IN BLOOD BY CALCULATION 0.11 10*3/uL Normal 0.00-0.20 [facility] Comment on above: Performed By: #### L [id number] ####[facility] ([facility])[address] [place] [address] BASOPHILS/100 LEUKOCYTES IN BLOOD BY AUTOMATED COUNT 0.7 % Normal 0.0-1.0 [facility] Comment on above: Performed By: #### L [id number] ####[facility] ([facility])[address] [place] [address] EOSINOPHILS (10*3/UL) IN BLOOD BY CALCULATION 0.21 10*3/uL Normal 0.00-0.50 [facility] Comment on above: Performed By: #### L [id number] ####[facility] ([facility])[address] [place] [address] EOSINOPHILS/100 LEUKOCYTES IN BLOOD BY AUTOMATED COUNT 1.3 % Normal 0.0-6.0 [facility] Comment on above: Performed By: #### L [id number] ####[facility] ([facility])[address] [place] [address] IMMATURE GRANULOCYTES (10*3/UL) IN BLOOD BY CALCULATION 0.21 10*3/uL High 0.00-0.20 [facility] Comment on above: Performed By: #### L [id number] ####[facility] ([facility])[address] [place] [address] IMMATURE GRANULOCYTES/100 LEUKOCYTES IN BLOOD BY AUTOMATED COUNT 1.3 % High 0.0-1.0 [facility] Comment on above: Performed By: #### L [id number] ####[facility] ([facility])[address] [place] [address] LYMPHOCYTES (10*3/UL) IN BLOOD BY CALCULATION 2.12 10*3/uL Normal 1.20-4.00 [facility] Comment on above: Performed By: #### L [id number] ####[facility] ([facility])[address] [place] [address] LYMPHOCYTES/100 LEUKOCYTES IN BLOOD BY AUTOMATED COUNT 13.4 % Low 20.0-45.0 [facility] Comment on above: Performed By: #### L [id number] ####[facility] ([facility])[address] [place] [address] MONOCYTES (10*3/UL) IN BLOOD BY CALCUATION 0.85 10*3/uL Normal 0.10-1.00 [facility] Comment on above: Performed By: #### L [id number] ####[facility] ([facility])[address] [place] [address] MONOCYTES/100 LEUKOCYTES IN BLOOD BY AUTOMATED COUNT 5.4 % Normal 5.0-12.0 [facility] Comment on above: Performed By: #### L [id number] ####[facility] ([facility])[address] [place] [address] NEUTROPHILS (10*3/UL) IN BLOOD BY CALCULATION 12.5 10*3/uL High 1.6-7.6 [facility] Comment on above: Performed By: #### L [id number] ####[facility] ([facility])[address] [address] NEUTROPHILS/100 LEUKOCYTES IN BLOOD BY AUTOMATED COUNT 79.2 % High 40.0-72.0 [facility] Comment on above: Performed By: #### L [id number] ####[facility] ([facility])[address] [address] PLASMA CELLS/100 LEUKOCYTES IN BLOOD 0 % Normal 0 [facility] Comment on above: Performed By: #### L [id number] ####[facility] ([facility])[address] [address] PLATELETS GIANT PRESENCE IN BLOOD BY LIGHT MICROSCOPY Present Normal [facility] Comment on above: Performed By: #### L [id number] ####[facility] ([facility])[address] [address] VARIANT LYMPHOCYTES (10*3/UL) IN BLOOD BY CALCULATION 0.00 10*3/uL Normal 0.00 [facility] Comment on above: Performed By: #### L [id number] ####[facility] ([facility])[address] [address] VARIANT LYMPHOCYTES/100 LEUKOCYTES IN BLOOD CELLAVISION 0.0 % Normal 0.0-0.0 [facility] Comment on above: Performed By: #### L [id number] ####[facility] ([facility])[address] [address] PHOSPHORUSon 05-26-2025 Magnesium [Mass/Vol] 2.5 mg/dL Normal 2.5-5.0 [facility] Comment on above: Performed By: #### L [id number] ####[facility] ([facility])[address] [place] [address] BASIC METABOLIC PANELon 05-03 Anion gap [Moles/Vol] 11 mmol/L Normal 7-20 [facility] Comment on above: Performed By: #### L [id number] ####[facility] ([facility])[address] [place] [address] Calcium [Mass/Vol] 7.7 mg/dL Low 8.6-10.3 [facility] Comment on above: Performed By: #### L [id number] ####[facility] ([facility])[address] [place] [address] Chloride [Moles/Vol] 101 mmol/L Normal 98-107 [facility] Comment on above: Performed By: #### L [id number] ####[facility] ([facility])[address] [place] [address] CO2 [Moles/Vol] 28 mmol/L Normal 21-31 [facility] Comment on above: Performed By: #### L [id number] ####[facility] ([facility])[address] [place] [address] Creatinine [Mass/Vol] 0.74 mg/dL Normal 0.70-1.30 [facility] Comment on above: Performed By: #### L [id number] ####[facility] ([facility])[address] [place] [address] GLOMERULAR FILTRATION RATE ML/MIN/1.73 SQ M.PREDICTED 93.9 mL/min/1.73m*2 Normal >60.0 [facility] Comment on above: Result Comment: The [facility]???s estimated glomerular filtration rate (eGFR) will no longer include consideration of race in its calculation. The National Kidney Foundation???s eGFR Task Force developed new recommendations for the estimation of the glomerular filtration rate in the [place] They recommend immediate implementation of the new equation refit without the race variable in all laboratories because the calculation does not include race. In addition to not including race in the calculation and reporting, it included diversity in its development, and has acceptable performance characteristics and potential consequences that do not disproportionately affect any one group of individuals. Performed By: #### L [id number] ####[facility] ([facility])[address] [place] [address] Glucose [Mass/Vol] 94 mg/dL Normal 70-100 [facility] Comment on above: Performed By: #### L [id number] ####[facility] ([facility])[address] [place] [address] Potassium [Moles/Vol] 3.5 mmol/L Normal 3.5-5.1 [facility] Comment on above: Performed By: #### L [id number] ####[facility] ([facility])[address] [place] [address] Sodium [Moles/Vol] 136 mmol/L Normal 136-145 [facility] Comment on above: Performed By: #### L [id number] ####[facility] ([facility])[address] [place] [address] Urea nitrogen [Mass/Vol] 8 mg/dL Normal 7-25 [facility] Comment on above: Performed By: #### L [id number] ####[facility] ([facility])[address] [place] [address] UREA NITROGEN/CREATININ E (MASS RATIO) IN SER/PLAS 10.8 Normal [facility] Comment on above: Performed By: #### L [id number] ####[facility] ([facility])[address] [place] [address] CBC WITH AUTO DIFFERENTIALon 05-25-2025 Erythrocyte distribution width (RBC) [Ratio] 15.1 % High 11.5-15.0 [facility] Comment on above: Performed By: #### L [id number] ####[facility] ([facility])[address] [place] [address] ERYTHROCYTE MEAN CORPUSCULAR HEMOGLOBIN CONCENTRATION (G/DL) BY AUTOMATED 34.5 g/dL Normal 32.0-35.0 [facility] Comment on above: Performed By: #### L [id number] ####[facility] ([facility])[address] [place] [address] Hematocrit (Bld) [Volume fraction] 26.7 % Low 39.0-50.0 [facility] Comment on above: Performed By: #### L [id number] ####[facility] ([facility])[address] [place], [place] [address] Hemoglobin (Bld) [Mass/Vol] 9.2 g/dL Low 13.0-17.0 [facility] Comment on above: Performed By: #### L [id number] ####[facility] ([facility])[address] [address] MCH (RBC) [Entitic mass] 31.4 pg Normal 27.0-33.0 [facility] Comment on above: Performed By: #### L [id number] ####[facility] ([facility])[address] [place], [place] [address] MCV (RBC) [Entitic vol] 91.1 fL Normal 82.0-98.0 [facility] Comment on above: Performed By: #### L [id number] ####[facility] ([facility])[address] [place], [place] [address] NRBC (PER 100 WBCS) BY AUTOMATED COUNT 0.0 % Normal 0 [facility] Comment on above: Performed By: #### L [id number] ####[facility] ([facility])[address] [place], [place] [address] PLATELETS (10*3/UL) IN BLOOD AUTOMATED COUNT 352 10*3/uL Normal 150-400 [facility] Comment on above: Performed By: #### L [id number] ####[facility] ([facility])[address] [place] [address] RBC (Bld) [#/Vol] 2.93 10*6/uL Low 4.20-5.70 [facility] Comment on above: Performed By: #### L [id number] ####[facility] ([facility])[address] [place], [place] [address] WBC (Bld) [#/Vol] 18.52 10*3/uL High 4.00-10.60 [facility] Comment on above: Performed By: #### L [id number] ####[facility] ([facility])[address] [place] [address] MAGNESIUMon 05-25-2025 Magnesium [Mass/Vol] 1.8 mg/dL Low 1.9-2.7 [facility] Comment on above: Performed By: #### L [id number] ####[facility] ([facility])[address] [place] [address] MANUAL DIFFERENTIALon 2024 BASOPHILS (10*3/UL) IN BLOOD BY CALCULATION 0.06 10*3/uL Normal 0.00-0.20 [facility] Comment on above: Performed By: #### L [id number] ####[facility] ([facility])[address] [place] [address] BASOPHILS/100 LEUKOCYTES IN BLOOD BY AUTOMATED COUNT 0.3 % Normal 0.0-1.0 [facility] Comment on above: Performed By: #### L [id number] ####[facility] ([facility])[address] [place] [address] EOSINOPHILS (10*3/UL) IN BLOOD BY CALCULATION 0.33 10*3/uL Normal 0.00-0.50 [facility] Comment on above: Performed By: #### L [id number] ####[facility] ([facility])[address] [place] [address] EOSINOPHILS/100 LEUKOCYTES IN BLOOD BY AUTOMATED COUNT 1.8 % Normal 0.0-6.0 [facility] Comment on above: Performed By: #### L [id number] ####[facility] ([facility])[address] [place] [address] IMMATURE GRANULOCYTES (10*3/UL) IN BLOOD BY CALCULATION 0.20 10*3/uL Normal 0.00-0.20 [facility] Comment on above: Performed By: #### L [id number] ####[facility] ([facility])[address] [place] [address] IMMATURE GRANULOCYTES/100 LEUKOCYTES IN BLOOD BY AUTOMATED COUNT 1.1 % High 0.0-1.0 [facility] Comment on above: Performed By: #### L [id number] ####[facility] ([facility])[address] [place] [address] LYMPHOCYTES (10*3/UL) IN BLOOD BY CALCULATION 3.30 10*3/uL Normal 1.20-4.00 [facility] Comment on above: Performed By: #### L [id number] ####[facility] ([facility])[address] [place] [address] LYMPHOCYTES/100 LEUKOCYTES IN BLOOD BY AUTOMATED COUNT 17.8 % Low 20.0-45.0 [facility] Comment on above: Performed By: #### L [id number] ####[facility] ([facility])[address] [place] [address] MONOCYTES (10*3/UL) IN BLOOD BY CALCUATION 1.87 10*3/uL High 0.10-1.00 [facility] Comment on above: Performed By: #### L [id number] ####[facility] ([facility])[address] [place] [address] MONOCYTES/100 LEUKOCYTES IN BLOOD BY AUTOMATED COUNT 10.1 % Normal 5.0-12.0 [facility] Comment on above: Performed By: #### L [id number] ####[facility] ([facility])[address] [place] [address] NEUTROPHILS (10*3/UL) IN BLOOD BY CALCULATION 12.8 10*3/uL High 1.6-7.6 [facility] Comment on above: Performed By: #### L [id number] ####[facility] ([facility])[address] [place] [address] NEUTROPHILS/100 LEUKOCYTES IN BLOOD BY AUTOMATED COUNT 68.9 % Normal 40.0-72.0 [facility] Comment on above: Performed By: #### L [id number] ####[facility] ([facility])[address] [place] [address] PHOSPHORUSon 05-25-2025 Magnesium [Mass/Vol] 2.3 mg/dL Low 2.5-5.0 [facility] Comment on above: Performed By: #### L [id number] ####[facility] ([facility])[address] [place] [address] POCT GLUCOSE METER UNSOLICIT ED RESULTSon 05-25-2025 Glucose [Mass/Vol] 132 mg/dL High 70-105 [facility] Comment on above: Order Comment: Waive d Testing in the ED is performed under the ED CLIA certificate #[id number]. Result Comment: srab ee Performed By: #### L [id number] ####[facility] ([facility])[address] [place] [address] 30on 05-24-2025 30 The patient is Moder ately Stable - Low risk of patient condition declining or worsening The patient's goals for the shift include comfort The clinical goals for the shift include stbale vitals, comfort Normal [facility] 30 Normal [facility] BASIC METABOLIC PANELon 05-03 Anion gap [Moles/Vol] 9 mmol/L Normal 7-20 [facility] Comment on above: Performed By: #### L [id number] ####[facility] ([facility])[address] [place] [address] Calcium [Mass/Vol] 7.7 mg/dL Low 8.6-10.3 [facility] Comment on above: Performed By: #### L [id number] ####[facility] ([facility])[address] [place] [address] Chloride [Moles/Vol] 101 mmol/L Normal 98-107 [facility] Comment on above: Performed By: #### L [id number] ####[facility] ([facility])[address] [place] [address] CO2 [Moles/Vol] 31 mmol/L Normal 21-31 [facility] Comment on above: Performed By: #### L [id number] ####[facility] ([facility])[address] [place] [address] Creatinine [Mass/Vol] 0.86 mg/dL Normal 0.70-1.30 [facility] Comment on above: Performed By: #### L [id number] ####[facility] ([facility])[address] [place] [address] GLOMERULAR FILTRATION RATE ML/MIN/1.73 SQ M.PREDICTED 89.7 mL/min/1.73m*2 Normal >60.0 [facility] Comment on above: Result Comment: The [facility]???s estimated glomerular filtration rate (eGFR) will no longer include consideration of race in its calculation. The National Kidney [employer]???s eGFR Task Force developed new recommendations for the estimation of the glomerular filtration rate in the [place] They recommend immediate implementation of the new equation refit without the race variable in all laboratories because the calculation does not include race. In addition to not including race in the calculation and reporting, it included diversity in its development, and has acceptable performance characteristics and potential consequences that do not disproportionately affect any one group of individuals. Performed By: #### L [id number] ####[facility] ([facility])[address] [place] [address] Glucose [Mass/Vol] 97 mg/dL Normal 70-100 [facility] Comment on above: Performed By: #### L [id number] ####[facility] ([facility])[address] [place] [address] Potassium [Moles/Vol] 3.1 mmol/L Low 3.5-5.1 [facility] Comment on above: Performed By: #### L [id number] ####[facility] ([facility])[address] [place] [address] Sodium [Moles/Vol] 138 mmol/L Normal 136-145 [facility] Comment on above: Performed By: #### L [id number] ####[facility] ([facility])[address] [place] [address] Urea nitrogen [Mass/Vol] 12 mg/dL Normal 7-25 [facility] Comment on above: Performed By: #### L [id number] ####[facility] ([facility])[address] [place] [address] UREA NITROGEN/CREATININ E (MASS RATIO) IN SER/PLAS 14.0 Normal [facility] Comment on above: Performed By: #### L [id number] ####[facility] ([facility])[address] [place] [address] CBC WITH AUTO DIFFERENTIALon 05-24-2025 Basophils (Bld) [#/Vol] 0.03 10*3/uL Normal 0.00-0.20 [facility] Comment on above: Performed By: #### L [id number] ####[facility] ([facility])[address] [place] [address] Basophils/100 WBC (Bld) 0.2 % Normal 0.0-1.0 [facility] Comment on above: Performed By: #### L [id number] ####[facility] ([facility])[address] [place] [address] Eosinophils (Bld) [#/Vol] 0.45 10*3/uL Normal 0.00-0.50 [facility] Comment on above: Performed By: #### L [id number] ####[facility] ([facility])[address] [place] [address] Eosinophils/100 WBC (Bld) 2.9 % Normal 0.0-6.0 [facility] Comment on above: Performed By: #### L [id number] ####[facility] ([facility])[address] [place] [address] Erythrocyte distribution width (RBC) [Ratio] 15.6 % High 11.5-15.0 [facility] Comment on above: Performed By: #### L [id number] ####[facility] ([facility])[address] [place] [address] ERYTHROCYTE MEAN CORPUSCULAR HEMOGLOBIN CONCENTRATION (G/DL) BY AUTOMATED 32.9 g/dL Normal 32.0-35.0 [facility] Comment on above: Performed By: #### L [id number] ####[facility] ([facility])[address] [place] [address] Hematocrit (Bld) [Volume fraction] 25.2 % Low 39.0-50.0 [facility] Comment on above: Performed By: #### L [id number] ####[facility] ([facility])[address] [place] [address] Hemoglobin (Bld) [Mass/Vol] 8.3 g/dL Low 13.0-17.0 [facility] Comment on above: Performed By: #### L [id number] ####[facility] ([facility])[address] [place] [address] Immature granulocytes (Bld) [#/Vol] 0.24 10*3/uL High 0.00-0.20 [facility] Comment on above: Performed By: #### L [id number] ####[facility] ([facility])[address] [place] [address] Immature granulocytes/100 WBC (Bld) 1.5 % High 0.0-1.0 [facility] Comment on above: Performed By: #### L [id number] ####[facility] ([facility])[address] [place] [address] Lymphocytes (Bld) [#/Vol] 2.38 10*3/uL Normal 1.20-4.00 [facility] Comment on above: Performed By: #### L [id number] ####[facility] ([facility])[address] [place] [address] Lymphocytes/100 WBC (Bld) 15.3 % Low 20.0-45.0 [facility] Comment on above: Performed By: #### L [id number] ####[facility] ([facility])[address] [place] [address] MCH (RBC) [Entitic mass] 30.5 pg Normal 27.0-33.0 [facility] Comment on above: Performed By: #### L [id number] ####[facility] ([facility])[address] [place] [address] MCV (RBC) [Entitic vol] 92.6 fL Normal 82.0-98.0 [facility] Comment on above: Performed By: #### L [id number] ####[facility] ([facility])[address] [place] [address] Monocytes (Bld) [#/Vol] 1.43 10*3/uL High 0.10-1.00 [facility] Comment on above: Performed By: #### L [id number] ####[facility] ([facility])[address] [place] [address] Monocytes/100 WBC (Bld) 9.2 % Normal 5.0-12.0 [facility] Comment on above: Performed By: #### L [id number] ####[facility] ([facility])[address] [place] [address] Neutrophils (Bld) [#/Vol] 10.98 10*3/uL High 1.60-7.60 [facility] Comment on above: Performed By: #### L [id number] ####[facility] ([facility])[address] [place] [address] Neutrophils/100 WBC (Bld) 70.9 % Normal 40.0-72.0 [facility] Comment on above: Performed By: #### L [id number] ####[facility] ([facility])[address] [place], [place] [address] NRBC (PER 100 WBCS) BY AUTOMATED COUNT 0.0 % Normal 0 [facility] Comment on above: Performed By: #### L [id number] ####[facility] ([facility])[address] [place] [address] PLATELETS (10*3/UL) IN BLOOD AUTOMATED COUNT 330 10*3/uL Normal 150-400 [facility] Comment on above: Performed By: #### L [id number] ####[facility] ([facility])[address] [place] [address] RBC (Bld) [#/Vol] 2.72 10*6/uL Low 4.20-5.70 [facility] Comment on above: Performed By: #### L [id number] ####[facility] ([facility])[address] [place] [address] WBC (Bld) [#/Vol] 15.51 10*3/uL High 4.00-10.60 [facility] Comment on above: Performed By: #### L [id number] ####[facility] ([facility])[address] [place] [address] MAGNESIUMon 05-24-2025 Magnesium [Mass/Vol] 1.8 mg/dL Low 1.9-2.7 [facility] Comment on above: Performed By: #### L [id number] ####[facility] ([facility])[address] [place] [address] PHOSPHORUSon 05-24-2025 Magnesium [Mass/Vol] 2.7 mg/dL Normal 2.5-5.0 [facility] Comment on above: Performed By: #### L [id number] ####[facility] ([facility])[address] [place] [address] 30on 05-23-2025 30 The patient is Moder ately Stable - Low risk of patient condition declining or worsening The patient's goals for the shift include comfort The clinical goals for the shift include vss Normal [facility] 30 Normal [facility] BASIC METABOLIC PANELon 05-03 Anion gap [Moles/Vol] 9 mmol/L Normal 7-20 [facility] Comment on above: Performed By: #### L [id number] ####[facility] ([facility])[address] [place] [address] Calcium [Mass/Vol] 8.0 mg/dL Low 8.6-10.3 [facility] Comment on above: Performed By: #### L [id number] ####[facility] ([facility])[address] [place] [address] Chloride [Moles/Vol] 102 mmol/L Normal 98-107 [facility] Comment on above: Performed By: #### L [id number] ####[facility] ([facility])[address] [place] [address] CO2 [Moles/Vol] 29 mmol/L Normal 21-31 [facility] Comment on above: Performed By: #### L [id number] ####[facility] ([facility])[address] [place] [address] Creatinine [Mass/Vol] 0.86 mg/dL Normal 0.70-1.30 [facility] Comment on above: Performed By: #### L [id number] ####[facility] ([facility])[address] [place] [address] GLOMERULAR FILTRATION RATE ML/MIN/1.73 SQ M.PREDICTED 89.7 mL/min/1.73m*2 Normal >60.0 [facility] Comment on above: Result Comment: The [facility]???s estimated glomerular filtration rate (eGFR) will no longer include consideration of race in its calculation. The National Kidney Foundation???s eGFR Task Force developed new recommendations for the estimation of the glomerular filtration rate in the [place] They recommend immediate implementation of the new equation refit without the race variable in all laboratories because the calculation does not include race. In addition to not including race in the calculation and reporting, it included diversity in its development, and has acceptable performance characteristics and potential consequences that do not disproportionately affect any one group of individuals. Performed By: #### L [id number] ####[facility] ([facility])[address] [place] [address] Glucose [Mass/Vol] 95 mg/dL Normal 70-100 [facility] Comment on above: Performed By: #### L [id number] ####[facility] ([facility])[address] [place] [address] Potassium [Moles/Vol] 3.4 mmol/L Low 3.5-5.1 [facility] Comment on above: Performed By: #### L [id number] ####[facility] ([facility])[address] [place] [address] Sodium [Moles/Vol] 137 mmol/L Normal 136-145 [facility] Comment on above: Performed By: #### L [id number] ####[facility] ([facility])[address] [place] [address] Urea nitrogen [Mass/Vol] 14 mg/dL Normal 7-25 [facility] Comment on above: Performed By: #### L [id number] ####[facility] ([facility])[address] [place] [address] UREA NITROGEN/CREATININ E (MASS RATIO) IN SER/PLAS 16.3 Normal [facility] Comment on above: Performed By: #### L [id number] ####[facility] ([facility])[address] [place] [address] CBC WITH AUTO DIFFERENTIALon 05-23-2025 Erythrocyte distribution width (RBC) [Ratio] 15.4 % High 11.5-15.0 [facility] Comment on above: Performed By: #### L [id number] ####[facility] ([facility])[address] [place] [address] ERYTHROCYTE MEAN CORPUSCULAR HEMOGLOBIN CONCENTRATION (G/DL) BY AUTOMATED 33.6 g/dL Normal 32.0-35.0 [facility] Comment on above: Performed By: #### L [id number] ####[facility] ([facility])[address] [place] [address] Hematocrit (Bld) [Volume fraction] 25.0 % Low 39.0-50.0 [facility] Comment on above: Performed By: #### L [id number] ####[facility] ([facility])[address] [place] [address] Hemoglobin (Bld) [Mass/Vol] 8.4 g/dL Low 13.0-17.0 [facility] Comment on above: Performed By: #### L [id number] ####[facility] ([facility])[address] [place] [address] MCH (RBC) [Entitic mass] 30.7 pg Normal 27.0-33.0 [facility] Comment on above: Performed By: #### L [id number] ####[facility] ([facility])[address] [place] [address] MCV (RBC) [Entitic vol] 91.2 fL Normal 82.0-98.0 [facility] Comment on above: Performed By: #### L [id number] ####[facility] ([facility])[address] [place] [address] NRBC (PER 100 WBCS) BY AUTOMATED COUNT 0.0 % Normal 0 [facility] Comment on above: Performed By: #### L [id number] ####[facility] ([facility])[address] [place] [address] PLATELETS (10*3/UL) IN BLOOD AUTOMATED COUNT 309 10*3/uL Normal 150-400 [facility] Comment on above: Performed By: #### L [id number] ####[facility] ([facility])[address] [place] [address] RBC (Bld) [#/Vol] 2.74 10*6/uL Low 4.20-5.70 [facility] Comment on above: Performed By: #### L [id number] ####[facility] ([facility])[address] [place] [address] WBC (Bld) [#/Vol] 18.82 10*3/uL High 4.00-10.60 [facility] Comment on above: Performed By: #### L [id number] ####[facility] ([facility])[address] [place] [address] MAGNESIUMon 05-23-2025 Magnesium [Mass/Vol] 1.9 mg/dL Normal 1.9-2.7 [facility] Comment on above: Performed By: #### L [id number] ####[facility] ([facility])[address] [place] [address] MANUAL DIFFERENTIALon 2024 BASOPHILS (10*3/UL) IN BLOOD BY CALCULATION 0.04 10*3/uL Normal 0.00-0.20 [facility] Comment on above: Performed By: #### L [id number] ####[facility] ([facility])[address] [place] [address] BASOPHILS/100 LEUKOCYTES IN BLOOD BY AUTOMATED COUNT 0.2 % Normal 0.0-1.0 [facility] Comment on above: Performed By: #### L [id number] ####[facility] ([facility])[address] [place] [address] EOSINOPHILS (10*3/UL) IN BLOOD BY CALCULATION 0.45 10*3/uL Normal 0.00-0.50 [facility] Comment on above: Performed By: #### L [id number] ####[facility] ([facility])[address] [place] [address] EOSINOPHILS/100 LEUKOCYTES IN BLOOD BY AUTOMATED COUNT 2.4 % Normal 0.0-6.0 [facility] Comment on above: Performed By: #### L [id number] ####[facility] ([facility])[address] [place] [address] IMMATURE GRANULOCYTES (10*3/UL) IN BLOOD BY CALCULATION 0.23 10*3/uL High 0.00-0.20 [facility] Comment on above: Performed By: #### L [id number] ####[facility] ([facility])[address] [place] [address] IMMATURE GRANULOCYTES/100 LEUKOCYTES IN BLOOD BY AUTOMATED COUNT 1.2 % High 0.0-1.0 [facility] Comment on above: Performed By: #### L [id number] ####[facility] ([facility])[address] [place] [address] LYMPHOCYTES (10*3/UL) IN BLOOD BY CALCULATION 2.03 10*3/uL Normal 1.20-4.00 [facility] Comment on above: Performed By: #### L [id number] ####[facility] ([facility])[address] [place] [address] LYMPHOCYTES/100 LEUKOCYTES IN BLOOD BY AUTOMATED COUNT 10.8 % Low 20.0-45.0 [facility] Comment on above: Performed By: #### L [id number] ####[facility] ([facility])[address] [place] [address] MONOCYTES (10*3/UL) IN BLOOD BY CALCUATION 1.79 10*3/uL High 0.10-1.00 [facility] Comment on above: Performed By: #### L [id number] ####[facility] ([facility])[address] [place] [address] MONOCYTES/100 LEUKOCYTES IN BLOOD BY AUTOMATED COUNT 9.5 % Normal 5.0-12.0 [facility] Comment on above: Performed By: #### L [id number] ####[facility] ([facility])[address] [place] [address] NEUTROPHILS (10*3/UL) IN BLOOD BY CALCULATION 14.3 10*3/uL High 1.6-7.6 [facility] Comment on above: Performed By: #### L [id number] ####[facility] ([facility])[address] [place] [address] NEUTROPHILS/100 LEUKOCYTES IN BLOOD BY AUTOMATED COUNT 75.9 % High 40.0-72.0 [facility] Comment on above: Performed By: #### L [id number] ####[facility] ([facility])[address] [place] [address] PHOSPHORUSon 05-23-2025 Magnesium [Mass/Vol] 3.5 mg/dL Normal 2.5-5.0 [facility] Comment on above: Performed By: #### L [id number] ####[facility] ([facility])[address] [place] [address] 30on 05-22-2025 30 The patient is Moder ately Stable - Low risk of patient condition declining or worsening The patient's goals for the shift include comfort The clinical goals for the shift include vss comfort Normal [facility] 30 Normal [facility] BASIC METABOLIC PANELon 05-03 Anion gap [Moles/Vol] 11 mmol/L Normal 7-20 [facility] Comment on above: Performed By: #### L [id number] ####[facility] ([facility])[address] [place] [address] Calcium [Mass/Vol] 8.5 mg/dL Low 8.6-10.3 [facility] Comment on above: Performed By: #### L [id number] ####[facility] ([facility])[address] [place] [address] Chloride [Moles/Vol] 99 mmol/L Normal 98-107 [facility] Comment on above: Performed By: #### L [id number] ####[facility] ([facility])[address] [place] [address] CO2 [Moles/Vol] 29 mmol/L Normal 21-31 [facility] Comment on above: Performed By: #### L [id number] ####[facility] ([facility])[address] [place] [address] Creatinine [Mass/Vol] 1.42 mg/dL High 0.70-1.30 [facility] Comment on above: Performed By: #### L [id number] ####[facility] ([facility])[address] [place] [address] GLOMERULAR FILTRATION RATE ML/MIN/1.73 SQ M.PREDICTED 51.2 mL/min/1.73m*2 Low >60.0 [facility] Comment on above: Result Comment: The [facility]???s estimated glomerular filtration rate (eGFR) will no longer include consideration of race in its calculation. The National Kidney Foundation???s eGFR Task Force developed new recommendations for the estimation of the glomerular filtration rate in the [place] They recommend immediate implementation of the new equation refit without the race variable in all laboratories because the calculation does not include race. In addition to not including race in the calculation and reporting, it included diversity in its development, and has acceptable performance characteristics and potential consequences that do not disproportionately affect any one group of individuals. Performed By: #### L [id number] ####[facility] ([facility])[address] [place] [address] Glucose [Mass/Vol] 112 mg/dL High 70-100 [facility] Comment on above: Performed By: #### L [id number] ####[facility] ([facility])[address] [place] [address] Potassium [Moles/Vol] 3.5 mmol/L Normal 3.5-5.1 [facility] Comment on above: Performed By: #### L [id number] ####[facility] ([facility])[address] [place] [address] Sodium [Moles/Vol] 135 mmol/L Low 136-145 [facility] Comment on above: Performed By: #### L [id number] ####[facility] ([facility])[address] [place] [address] Urea nitrogen [Mass/Vol] 15 mg/dL Normal 7-25 [facility] Comment on above: Performed By: #### L [id number] ####[facility] ([facility])[address] [place] [address] UREA NITROGEN/CREATININ E (MASS RATIO) IN SER/PLAS 10.6 Normal [facility] Comment on above: Performed By: #### L [id number] ####[facility] ([facility])[address] [place] [address] CBC WITH AUTO DIFFERENTIALon 05-22-2025 Erythrocyte distribution width (RBC) [Ratio] 15.4 % High 11.5-15.0 [facility] Comment on above: Performed By: #### L [id number] ####[facility] ([facility])[address] [place] [address] ERYTHROCYTE MEAN CORPUSCULAR HEMOGLOBIN CONCENTRATION (G/DL) BY AUTOMATED 34.0 g/dL Normal 32.0-35.0 [facility] Comment on above: Performed By: #### L [id number] ####[facility] ([facility])[address] [place] [address] Hematocrit (Bld) [Volume fraction] 25.3 % Low 39.0-50.0 [facility] Comment on above: Performed By: #### L [id number] ####[facility] ([facility])[address] [place] [address] Hemoglobin (Bld) [Mass/Vol] 8.6 g/dL Low 13.0-17.0 [facility] Comment on above: Performed By: #### L [id number] ####[facility] ([facility])[address] [place] [address] MCH (RBC) [Entitic mass] 31.0 pg Normal 27.0-33.0 [facility] Comment on above: Performed By: #### L [id number] ####[facility] ([facility])[address] [place] [address] MCV (RBC) [Entitic vol] 91.3 fL Normal 82.0-98.0 [facility] Comment on above: Performed By: #### L [id number] ####[facility] ([facility])[address] [place] [address] NRBC (PER 100 WBCS) BY AUTOMATED COUNT 0.0 % Normal 0 [facility] Comment on above: Performed By: #### L [id number] ####[facility] ([facility])[address] [place] [address] PLATELETS (10*3/UL) IN BLOOD AUTOMATED COUNT 308 10*3/uL Normal 150-400 [facility] Comment on above: Performed By: #### L [id number] ####[facility] ([facility])[address] [place] [address] RBC (Bld) [#/Vol] 2.77 10*6/uL Low 4.20-5.70 [facility] Comment on above: Performed By: #### L [id number] ####[facility] ([facility])[address] [place] [address] WBC (Bld) [#/Vol] 19.94 10*3/uL High 4.00-10.60 [facility] Comment on above: Performed By: #### L [id number] ####[facility] ([facility])[address] [place] [address] CONSULTon 05-22-2025 CONSULT Normal [facility] CONSULT Normal [facility] MAGNESIUMon 05-22-2025 Magnesium [Mass/Vol] 1.9 mg/dL Normal 1.9-2.7 [facility] Comment on above: Performed By: #### L [id number] ####[facility] ([facility])[address] [place] [address] MANUAL DIFFERENTIALon 2024 BASOPHILS (10*3/UL) IN BLOOD BY CALCULATION 0.06 10*3/uL Normal 0.00-0.20 [facility] Comment on above: Performed By: #### L [id number] ####[facility] ([facility])[address] [place] [address] BASOPHILS/100 LEUKOCYTES IN BLOOD BY AUTOMATED COUNT 0.3 % Normal 0.0-1.0 [facility] Comment on above: Performed By: #### L [id number] ####[facility] ([facility])[address] [place] [address] EOSINOPHILS (10*3/UL) IN BLOOD BY CALCULATION 0.40 10*3/uL Normal 0.00-0.50 [facility] Comment on above: Performed By: #### L [id number] ####[facility] ([facility])[address] [place] [address] EOSINOPHILS/100 LEUKOCYTES IN BLOOD BY AUTOMATED COUNT 2.0 % Normal 0.0-6.0 [facility] Comment on above: Performed By: #### L [id number] ####[facility] ([facility])[address] [place] [address] IMMATURE GRANULOCYTES (10*3/UL) IN BLOOD BY CALCULATION 0.34 10*3/uL High 0.00-0.20 [facility] Comment on above: Performed By: #### L [id number] ####[facility] ([facility])[address] [place] [address] IMMATURE GRANULOCYTES/100 LEUKOCYTES IN BLOOD BY AUTOMATED COUNT 1.7 % High 0.0-1.0 [facility] Comment on above: Performed By: #### L [id number] ####[facility] ([facility])[address] [place] [address] LYMPHOCYTES (10*3/UL) IN BLOOD BY CALCULATION 1.85 10*3/uL Normal 1.20-4.00 [facility] Comment on above: Performed By: #### L [id number] ####[facility] ([facility])[address] [place] [address] LYMPHOCYTES/100 LEUKOCYTES IN BLOOD BY AUTOMATED COUNT 9.3 % Low 20.0-45.0 [facility] Comment on above: Performed By: #### L [id number] ####[facility] ([facility])[address] [place] [address] MONOCYTES (10*3/UL) IN BLOOD BY CALCUATION 2.09 10*3/uL High 0.10-1.00 [facility] Comment on above: Performed By: #### L [id number] ####[facility] ([facility])[address] [place] [address] MONOCYTES/100 LEUKOCYTES IN BLOOD BY AUTOMATED COUNT 10.5 % Normal 5.0-12.0 [facility] Comment on above: Performed By: #### L [id number] ####[facility] ([facility])[address] [place] [address] NEUTROPHILS (10*3/UL) IN BLOOD BY CALCULATION 15.2 10*3/uL High 1.6-7.6 [facility] Comment on above: Performed By: #### L [id number] ####[facility] ([facility])[address] [place] [address] NEUTROPHILS/100 LEUKOCYTES IN BLOOD BY AUTOMATED COUNT 76.2 % High 40.0-72.0 [facility] Comment on above: Performed By: #### L [id number] ####[facility] ([facility])[address] [address] PHOSPHORUSon 05-22-2025 Magnesium [Mass/Vol] 4.0 mg/dL Normal 2.5-5.0 [facility] Comment on above: Performed By: #### L [id number] ####[facility] ([facility])[address] [address] BASIC METABOLIC PANELon 05-03 Anion gap [Moles/Vol] 14 mmol/L Normal 7-20 [facility] Comment on above: Performed By: #### L [id number] ####[facility] ([facility])[address] [place] [address] Calcium [Mass/Vol] 8.1 mg/dL Low 8.6-10.3 [facility] Comment on above: Performed By: #### L [id number] ####[facility] ([facility])[address] [place] [address] Chloride [Moles/Vol] 99 mmol/L Normal 98-107 [facility] Comment on above: Performed By: #### L [id number] ####[facility] ([facility])[address] [place] [address] CO2 [Moles/Vol] 27 mmol/L Normal 21-31 [facility] Comment on above: Performed By: #### L [id number] ####[facility] ([facility])[address] [place] [address] Creatinine [Mass/Vol] 0.77 mg/dL Normal 0.70-1.30 [facility] Comment on above: Performed By: #### L [id number] ####[facility] ([facility])[address] [place] [address] GLOMERULAR FILTRATION RATE ML/MIN/1.73 SQ M.PREDICTED 92.8 mL/min/1.73m*2 Normal >60.0 [facility] Comment on above: Result Comment: The [facility]???s estimated glomerular filtration rate (eGFR) will no longer include consideration of race in its calculation. The [employer]???s eGFR Task Force developed new recommendations for the estimation of the glomerular filtration rate in the [place] They recommend immediate implementation of the new equation refit without the race variable in all laboratories because the calculation does not include race. In addition to not including race in the calculation and reporting, it included diversity in its development, and has acceptable performance characteristics and potential consequences that do not disproportionately affect any one group of individuals. Performed By: #### L [id number] ####[facility] ([facility])[address] [place] [address] Glucose [Mass/Vol] 97 mg/dL Normal 70-100 [facility] Comment on above: Performed By: #### L [id number] ####[facility] ([facility])[address] [place] [address] Potassium [Moles/Vol] 3.7 mmol/L Normal 3.5-5.1 [facility] Comment on above: Performed By: #### L [id number] ####[facility] ([facility])[address] [place] [address] Sodium [Moles/Vol] 136 mmol/L Normal 136-145 [facility] Comment on above: Performed By: #### L [id number] ####[facility] ([facility])[address] [place] [address] Urea nitrogen [Mass/Vol] 11 mg/dL Normal 7-25 [facility] Comment on above: Performed By: #### L [id number] ####[facility] ([facility])[address] [place] [address] UREA NITROGEN/CREATININ E (MASS RATIO) IN SER/PLAS 14.3 Normal [facility] Comment on above: Performed By: #### L [id number] ####[facility] ([facility])[address] [place] [address] BLOOD CULTUREon 05-21-2025 Bacteria identified Cx Nom (Bld) No growth at 5 days Normal [facility] Comment on above: Order Comment: From a different site than #1. Performed By: #### L [id number] ####[facility] ([facility])[address] [place] [address] CBC WITH AUTO DIFFERENTIALon 05-21-2025 Erythrocyte distribution width (RBC) [Ratio] 15.1 % High 11.5-15.0 [facility] Comment on above: Performed By: #### L [id number] ####[facility] ([facility])[address] [place] [address] ERYTHROCYTE MEAN CORPUSCULAR HEMOGLOBIN CONCENTRATION (G/DL) BY AUTOMATED 33.8 g/dL Normal 32.0-35.0 [facility] Comment on above: Performed By: #### L [id number] ####[facility] ([facility])[address] [place] [address] Hematocrit (Bld) [Volume fraction] 27.8 % Low 39.0-50.0 [facility] Comment on above: Performed By: #### L [id number] ####[facility] ([facility])[address] [place] [address] Hemoglobin (Bld) [Mass/Vol] 9.4 g/dL Low 13.0-17.0 [facility] Comment on above: Performed By: #### L [id number] ####[facility] ([facility])[address] [place] [address] MCH (RBC) [Entitic mass] 31.5 pg Normal 27.0-33.0 [facility] Comment on above: Performed By: #### L [id number] ####[facility] ([facility])[address] [place] [address] MCV (RBC) [Entitic vol] 93.3 fL Normal 82.0-98.0 [facility] Comment on above: Performed By: #### L [id number] ####[facility] ([facility])[address] [place] [address] NRBC (PER 100 WBCS) BY AUTOMATED COUNT 0.0 % Normal 0 [facility] Comment on above: Performed By: #### L [id number] ####[facility] ([facility])[address] [place] [address] PLATELETS (10*3/UL) IN BLOOD AUTOMATED COUNT 285 10*3/uL Normal 150-400 [facility] Comment on above: Performed By: #### L [id number] ####[facility] ([facility])[address] [place] [address] RBC (Bld) [#/Vol] 2.98 10*6/uL Low 4.20-5.70 [facility] Comment on above: Performed By: #### L [id number] ####[facility] ([facility])[address] [place] [address] WBC (Bld) [#/Vol] 19.68 10*3/uL High 4.00-10.60 [facility] Comment on above: Performed By: #### L [id number] ####[facility] ([facility])[address] [place] [address] CONSULTon 05-21-2025 CONSULT Normal [facility] CT ABDOMEN PELVIS W IV CONTR Kala 05-21-2025 CT ABDOMEN PELVIS W IV CONTRAST Invalid Interpretation Code [facility] Comment on above: Order Comment: With double oral contrast and longer than standard wait prior to imaging MAGNESIUMon 05-21-2025 Magnesium [Mass/Vol] 1.8 mg/dL Low 1.9-2.7 [facility] Comment on above: Performed By: #### L [id number] ####[facility] ([facility])[address] [place] [address] MANUAL DIFFERENTIALon 2024 BASOPHILS (10*3/UL) IN BLOOD BY CALCULATION 0.00 10*3/uL Normal 0.00-0.20 [facility] Comment on above: Performed By: #### L [id number] ####[facility] ([facility])[address] [place] [address] BASOPHILS/100 LEUKOCYTES IN BLOOD BY AUTOMATED COUNT 0.0 % Normal 0.0-1.0 [facility] Comment on above: Performed By: #### L [id number] ####[facility] ([facility])[address] [place] [address] EOSINOPHILS (10*3/UL) IN BLOOD BY CALCULATION 0.14 10*3/uL Normal 0.00-0.50 [facility] Comment on above: Performed By: #### L [id number] ####[facility] ([facility])[address] [place] [address] EOSINOPHILS/100 LEUKOCYTES IN BLOOD BY AUTOMATED COUNT 0.7 % Normal 0.0-6.0 [facility] Comment on above: Performed By: #### L [id number] ####[facility] ([facility])[address] [place] [address] LYMPHOCYTES (10*3/UL) IN BLOOD BY CALCULATION 1.30 10*3/uL Normal 1.20-4.00 [facility] Comment on above: Performed By: #### L [id number] ####[facility] ([facility])[address] [place] [address] LYMPHOCYTES/100 LEUKOCYTES IN BLOOD BY AUTOMATED COUNT 6.6 % Low 20.0-45.0 [facility] Comment on above: Performed By: #### L [id number] ####[facility] ([facility])[address] [place] [address] METAMYELOCYTES (10*3/UL) IN BLOOD BY CALCULATION 0.14 10*3/uL High 0.00 [facility] Comment on above: Performed By: #### L [id number] ####[facility] ([facility])[address] [place] [address] METAMYELOCYTES/100 LEUKOCYTES IN BLOOD CELLAVISION 0.7 % High 0.0-0.0 [facility] Comment on above: Performed By: #### L [id number] ####[facility] ([facility])[address] [place] [address] MONOCYTES (10*3/UL) IN BLOOD BY CALCUATION 1.55 10*3/uL High 0.10-1.00 [facility] Comment on above: Performed By: #### L [id number] ####[facility] ([facility])[address] [place] [address] MONOCYTES/100 LEUKOCYTES IN BLOOD BY AUTOMATED COUNT 7.9 % Normal 5.0-12.0 [facility] Comment on above: Performed By: #### L [id number] ####[facility] ([facility])[address] [place] [address] MYELOCYTES (10*3/UL) IN BLOOD BY CALCULATION 0.14 10*3/uL High 0.00 [facility] Comment on above: Performed By: #### L [id number] ####[facility] ([facility])[address] [place] [address] MYELOCYTES/100 LEUKOCYTES IN BLOOD CELLAVISION 0.7 % High 0.0-0.0 [facility] Comment on above: Performed By: #### L [id number] ####[facility] ([facility])[address] [place] [address] NEUTROPHILS (10*3/UL) IN BLOOD BY CALCULATION 16.4 10*3/uL High 1.6-7.6 [facility] Comment on above: Performed By: #### L [id number] ####[facility] ([facility])[address] [place] [address] NEUTROPHILS/100 LEUKOCYTES IN BLOOD BY AUTOMATED COUNT 83.4 % High 40.0-72.0 [facility] Comment on above: Performed By: #### L [id number] ####[facility] ([facility])[address] [place] [address] PLASMA CELLS/100 LEUKOCYTES IN BLOOD 0 % Normal 0 [facility] Comment on above: Performed By: #### L [id number] ####[facility] ([facility])[address] [place] [address] PLATELETS GIANT PRESENCE IN BLOOD BY LIGHT MICROSCOPY Present Normal [facility] Comment on above: Performed By: #### L [id number] ####[facility] ([facility])[address] [place] [address] VARIANT LYMPHOCYTES (10*3/UL) IN BLOOD BY CALCULATION 0.00 10*3/uL Normal 0.00 [facility] Comment on above: Performed By: #### L [id number] ####[facility] ([facility])[address] [place] [address] VARIANT LYMPHOCYTES/100 LEUKOCYTES IN BLOOD CELLAVISION 0.0 % Normal 0.0-0.0 [facility] Comment on above: Performed By: #### L [id number] ####[facility] ([facility])[address] [place] [address] MRSA/MSSA DNA NASALon 2024 MRSA DNA Negative Normal Negative [facility] Comment on above: Order Comment: Testi ng methodology is an automated qualitative in vitro diagnostic test for the directdetection and differentiation of Staphylococcus aureus (SA) DNA and methicillin-resistant Staphylococcus aureus (MRSA) DNA from nasal swabs in patients at risk for nasal colonization. The test utilizes real-time polymerase chain reaction (PCR) for the amplification of MRSA/SA DNA and fluorogenic target-specific hybridization probes for the detection of the amplified DNA. A negative result does not preclude nasal colonization. Performed By: #### L [id number] ####[facility] ([facility])[address] [place] [address] MSSA DNA Negative Normal Negative [facility] Comment on above: Order Comment: Testi ng methodology is an automated qualitative in vitro diagnostic test for the directdetection and differentiation of Staphylococcus aureus (SA) DNA and methicillin-resistant Staphylococcus aureus (MRSA) DNA from nasal swabs in patients at risk for nasal colonization. The test utilizes real-time polymerase chain reaction (PCR) for the amplification of MRSA/SA DNA and fluorogenic target-specific hybridization probes for the detection of the amplified DNA. A negative result does not preclude nasal colonization. Performed By: #### L [id number] ####[facility] ([facility])[address] [place] [address] PHOSPHORUSon 05-21-2025 Magnesium [Mass/Vol] 4.2 mg/dL Normal 2.5-5.0 [facility] Comment on above: Performed By: #### L [id number] ####[facility] ([facility])[address] [place] [address] URINALYSISon 05-21-2025 BILIRUBIN, TOTAL PRESENCE IN URINE Negative Normal Negative [facility] Comment on above: Performed By: #### L [id number] ####[facility] ([facility])[address] [place] [address] Clarity (U) Clear Normal Clear, Other [facility] Comment on above: Performed By: #### L [id number] ####[facility] ([facility])[address] [place] [address] Color (U) Yellow Normal Yellow, Light Yellow, Colorless [facility] Comment on above: Performed By: #### L [id number] ####[facility] ([facility])[address] [place] [address] GLUCOSE (MG/DL) IN URINE Normal Normal Normal [facility] Comment on above: Performed By: #### L [id number] ####[facility] ([facility])[address] [place] [address] HEMOGLOBIN PRESENCE IN URINE Small Abnormal Negative [facility] Comment on above: Performed By: #### L [id number] ####[facility] ([facility])[address] [place] [address] Ketones Ql (U) 40 mg/dL Abnormal Negative [facility] Comment on above: Performed By: #### L [id number] ####[facility] ([facility])[address] [place] [address] LEUKOCYTE ESTERASE PRESENCE IN URINE BY TEST STRIP Moderate Abnormal Negative [facility] Comment on above: Performed By: #### L [id number] ####[facility] ([facility])[address] [place] [address] NITRITE PRESENCE IN URINE Negative Normal Negative [facility] Comment on above: Performed By: #### L [id number] ####[facility] ([facility])[address] [place] [address] pH (U) 5.5 [pH] Normal 5.0-8.0 [facility] Comment on above: Performed By: #### L [id number] ####[facility] ([facility])[address] [place] [address] Protein (U) [Mass/Vol] 30 mg/dL Abnormal Negative [facility] Comment on above: Performed By: #### L [id number] ####[facility] ([facility])[address] [place] [address] Specific gravity (U) [Rel density] 1.050 High 1.010-1.03 0 [facility] Comment on above: Performed By: #### L [id number] ####[facility] ([facility])[address] [place] [address] UROBILINOGEN (MG/DL) IN URINE Normal Normal Normal [facility] Comment on above: Performed By: #### L [id number] ####[facility] ([facility])[address] [place] [address] URINALYSIS MICROSCOPICon RBC (#/HPF) IN URINE SEDIMENT 0-2 Normal None Seen, 0-2 [facility] Comment on above: Order Comment: Micro scopic unspun. Less than 3mL received Performed By: #### L [id number] ####[facility] ([facility])[address] [place] [address] SQUAMOUS EPITHELIAL CELLS (#/LPF) IN URINE SEDIMENT Occasional Normal None Seen, Occasional , Few [facility] Comment on above: Order Comment: Micro scopic unspun. Less than 3mL received Performed By: #### L [id number] ####[facility] ([facility])[address] [place] [address] WBC (LEUKOCYTE) (#/HPF) IN URINE SEDIMENT 6-10 Abnormal None Seen, 0-2 [facility] Comment on above: Order Comment: Micro scopic unspun. Less than 3mL received Performed By: #### L [id number] ####[facility] ([facility])[address] [place] [address] URINE CULTURE, ROUTINEon Bacteria identified Cx Nom (U) No growth at 48 hours Normal [facility] Comment on above: Performed By: #### L [id number] ####[facility] ([facility])[address] [place] [address] Bacteria identified Cx Nom (U) <10,000 CFU/ML No Significant Growth Normal [facility] Comment on above: Performed By: #### L [id number] ####[facility] ([facility])[address] [place] [address] 30on 05-20-2025 30 The patient is Moder ately Stable - Low risk of patient condition declining or worsening The patient's goals for the shift include comfort, safety The clinical goals for the shift include stable vitals, comfort, pain control Normal [facility] BASIC METABOLIC PANELon 08- Anion gap [Moles/Vol] 11 mmol/L Normal 7-20 [facility] Comment on above: Performed By: #### L [id number] ####[facility] ([facility])[address] [place] [address] Calcium [Mass/Vol] 7.6 mg/dL Low 8.6-10.3 [facility] Comment on above: Performed By: #### L [id number] ####[facility] ([facility])[address] [place] [address] Chloride [Moles/Vol] 100 mmol/L Normal 98-107 [facility] Comment on above: Performed By: #### L [id number] ####[facility] ([facility])[address] [place] [address] CO2 [Moles/Vol] 28 mmol/L Normal 21-31 [facility] Comment on above: Performed By: #### L [id number] ####[facility] ([facility])[address] [place] [address] Creatinine [Mass/Vol] 0.54 mg/dL Low 0.70-1.30 [facility] Comment on above: Performed By: #### L [id number] ####[facility])[address] [place] [address] GLOMERULAR FILTRATION RATE ML/MIN/1.73 SQ M.PREDICTED 103.3 mL/min/1.73m*2 Normal >60.0 [facility] Comment on above: Result Comment: The [facility]???s estimated glomerular filtration rate (eGFR) will no longer include consideration of race in its calculation. The [employer]???s eGFR Task Force developed new recommendations for the estimation of the glomerular filtration rate in the [place] They recommend immediate implementation of the new equation refit without the race variable in all laboratories because the calculation does not include race. In addition to not including race in the calculation and reporting, it included diversity in its development, and has acceptable performance characteristics and potential consequences that do not disproportionately affect any one group of individuals. Performed By: #### L [id number] ####[facility] ([facility])[address] [place] [address] Glucose [Mass/Vol] 79 mg/dL Normal 70-100 [facility] Comment on above: Performed By: #### L [id number] ####[facility] ([facility])[address] [place] [address] Potassium [Moles/Vol] 3.5 mmol/L Normal 3.5-5.1 [facility] Comment on above: Performed By: #### L [id number] ####[facility] ([facility])[address] [place] [address] Sodium [Moles/Vol] 135 mmol/L Low 136-145 [facility] Comment on above: Performed By: #### L [id number] ####[facility] ([facility])[address] [place] [address] Urea nitrogen [Mass/Vol] 9 mg/dL Normal 7-25 [facility] Comment on above: Performed By: #### L [id number] ####[facility] ([facility])[address] [place] [address] UREA NITROGEN/CREATININ E (MASS RATIO) IN SER/PLAS 16.7 Normal [facility] Comment on above: Performed By: #### L [id number] ####[facility] ([facility])[address] [place] [address] CBC WITH AUTO DIFFERENTIALon 05-20-2025 Erythrocyte distribution width (RBC) [Ratio] 14.6 % Normal 11.5-15.0 [facility] Comment on above: Performed By: #### L [id number] ####[facility] ([facility])[address] [place] [address] ERYTHROCYTE MEAN CORPUSCULAR HEMOGLOBIN CONCENTRATION (G/DL) BY AUTOMATED 34.0 g/dL Normal 32.0-35.0 [facility] Comment on above: Performed By: #### L [id number] ####[facility] ([facility])[address] [place] [address] Hematocrit (Bld) [Volume fraction] 25.6 % Low 39.0-50.0 [facility] Comment on above: Performed By: #### L [id number] ####[facility] ([facility])[address] [place] [address] Hemoglobin (Bld) [Mass/Vol] 8.7 g/dL Low 13.0-17.0 [facility] Comment on above: Performed By: #### L [id number] ####[facility] ([facility])[address] [place] [address] MCH (RBC) [Entitic mass] 31.0 pg Normal 27.0-33.0 [facility] Comment on above: Performed By: #### L [id number] ####[facility] ([facility])[address] [place] [address] MCV (RBC) [Entitic vol] 91.1 fL Normal 82.0-98.0 [facility] Comment on above: Performed By: #### L [id number] ####[facility] ([facility])[address] [place] [address] NRBC (PER 100 WBCS) BY AUTOMATED COUNT 0.0 % Normal 0 [facility] Comment on above: Performed By: #### L [id number] ####[facility] ([facility])[address] [place] [address] PLATELETS (10*3/UL) IN BLOOD AUTOMATED COUNT 219 10*3/uL Normal 150-400 [facility] Comment on above: Performed By: #### L [id number] ####[facility] ([facility])[address] [place] [address] RBC (Bld) [#/Vol] 2.81 10*6/uL Low 4.20-5.70 [facility] Comment on above: Performed By: #### L [id number] ####[facility] ([facility])[address] [place] [address] WBC (Bld) [#/Vol] 14.31 10*3/uL High 4.00-10.60 [facility] Comment on above: Performed By: #### L [id number] ####[facility] ([facility])[address] [place] [address] CT ABDOMEN PELVIS W IV CONTR Kala 05-20-2025 CT ABDOMEN PELVIS W IV CONTRAST Normal [facility] CTA CHEST W IV CONTRASTon CTA CHEST W IV CONTRAST Invalid Interpretation Code [facility] DSon 05-20-2025 DS Normal [facility] MAGNESIUMon 05-20-2025 Magnesium [Mass/Vol] 1.6 mg/dL Low 1.9-2.7 [facility] Comment on above: Performed By: #### L [id number] ####[facility] ([facility])[address] [place] [address] MANUAL DIFFERENTIALon 2024 BASOPHILS (10*3/UL) IN BLOOD BY CALCULATION 0.04 10*3/uL Normal 0.00-0.20 [facility] Comment on above: Performed By: #### L [id number] ####[facility] ([facility])[address] [place] [address] BASOPHILS/100 LEUKOCYTES IN BLOOD BY AUTOMATED COUNT 0.3 % Normal 0.0-1.0 [facility] Comment on above: Performed By: #### L [id number] ####[facility] ([facility])[address] [place] [address] EOSINOPHILS (10*3/UL) IN BLOOD BY CALCULATION 0.72 10*3/uL High 0.00-0.50 [facility] Comment on above: Performed By: #### L [id number] ####[facility] ([facility])[address] [facility] [address] EOSINOPHILS/100 LEUKOCYTES IN BLOOD BY AUTOMATED COUNT 5.0 % Normal 0.0-6.0 [facility] Comment on above: Performed By: #### L [id number] ####[facility] ([facility])[address] [facility] [place] [address] IMMATURE GRANULOCYTES (10*3/UL) IN BLOOD BY CALCULATION 0.23 10*3/uL High 0.00-0.20 [facility] Comment on above: Performed By: #### L [id number] ####[facility] ([facility])[address] [place] [address] IMMATURE GRANULOCYTES/100 LEUKOCYTES IN BLOOD BY AUTOMATED COUNT 1.6 % High 0.0-1.0 [facility] Comment on above: Performed By: #### L [id number] ####[facility] ([facility])[address] [place] [address] LYMPHOCYTES (10*3/UL) IN BLOOD BY CALCULATION 2.68 10*3/uL Normal 1.20-4.00 [facility] Comment on above: Performed By: #### L [id number] ####[facility] ([facility])[address] [place] [address] LYMPHOCYTES/100 LEUKOCYTES IN BLOOD BY AUTOMATED COUNT 18.7 % Low 20.0-45.0 [facility] Comment on above: Performed By: #### L [id number] ####[facility] ([facility])[address] [place] [address] MONOCYTES (10*3/UL) IN BLOOD BY CALCUATION 1.57 10*3/uL High 0.10-1.00 [facility] Comment on above: Performed By: #### L [id number] ####[facility] ([facility])[address] [place] [address] MONOCYTES/100 LEUKOCYTES IN BLOOD BY AUTOMATED COUNT 11.0 % Normal 5.0-12.0 [facility] Comment on above: Performed By: #### L [id number] ####[facility] ([facility])[address] [place] [address] NEUTROPHILS (10*3/UL) IN BLOOD BY CALCULATION 9.1 10*3/uL High 1.6-7.6 [facility] Comment on above: Performed By: #### L [id number] ####[facility] ([facility])[address] [place] [address] NEUTROPHILS/100 LEUKOCYTES IN BLOOD BY AUTOMATED COUNT 63.4 % Normal 40.0-72.0 [facility] Comment on above: Performed By: #### L [id number] ####[facility] ([facility])[address] [place] [address] PHOSPHORUSon 05-20-2025 Magnesium [Mass/Vol] 2.7 mg/dL Normal 2.5-5.0 [facility] Comment on above: Performed By: #### L [id number] ####[facility] ([facility])[address] [address] URINALYSISon 05-20-2025 BILIRUBIN, TOTAL PRESENCE IN URINE Negative Normal Negative [facility] Comment on above: Order Comment: Micro scopics not performed on urines with negative chemical reactions unless requested on original order. Performed By: #### L [id number] ####[facility] ([facility])[address] [facility] [address] Clarity (U) Clear Normal Clear [facility] Comment on above: Order Comment: Micro scopics not performed on urines with negative chemical reactions unless requested on original order. Performed By: #### L [id number] ####[facility] ([facility])[address] [address] Color (U) Yellow Normal Colorless, Yellow, Light-Dane ow [facility] Comment on above: Order Comment: Micro scopics not performed on urines with negative chemical reactions unless requested on original order. Performed By: #### L [id number] ####[facility] ([facility])[address] [address] GLUCOSE (MG/DL) IN URINE Normal Normal Normal [facility] Comment on above: Order Comment: Micro scopics not performed on urines with negative chemical reactions unless requested on original order. Performed By: #### L [id number] ####[facility] ([facility])[address] [place] [address] HEMOGLOBIN PRESENCE IN URINE Negative Normal Negative [facility] Comment on above: Order Comment: Micro scopics not performed on urines with negative chemical reactions unless requested on original order. Performed By: #### L [id number] ####[facility] ([facility] [place] [address] Ketones Ql (U) Negative Normal Negative [facility] Comment on above: Order Comment: Micro scopics not performed on urines with negative chemical reactions unless requested on original order. Performed By: #### L [id number] ####[facility] ([facility])[address] [place] [address] LEUKOCYTE ESTERASE PRESENCE IN URINE BY TEST STRIP Negative Normal Negative [facility] Comment on above: Order Comment: Micro scopics not performed on urines with negative chemical reactions unless requested on original order. Performed By: #### L [id number] ####[facility] ([facility])[address] [place] [address] NITRITE PRESENCE IN URINE Negative Normal Negative [facility] Comment on above: Order Comment: Micro scopics not performed on urines with negative chemical reactions unless requested on original order. Performed By: #### L [id number] ####[facility] ([facility])[address] [place] [address] pH (U) 5.0 [pH] Normal 5.0-8.0 [facility] Comment on above: Order Comment: Micro scopics not performed on urines with negative chemical reactions unless requested on original order. Performed By: #### L [id number] ####[facility] ([facility])[address] [place] [address] Protein (U) [Mass/Vol] Negative Normal Negative [facility] Comment on above: Order Comment: Micro scopics not performed on urines with negative chemical reactions unless requested on original order. Performed By: #### L [id number] ####[facility] ([facility])[address] [address] Specific gravity (U) [Rel density] 1.000 Low 1.010-1.03 0 [facility] Comment on above: Order Comment: Micro scopics not performed on urines with negative chemical reactions unless requested on original order. Performed By: #### L [id number] ####[facility] ([facility])[address] [place] [address] UROBILINOGEN (MG/DL) IN URINE Normal Normal Normal [facility] Comment on above: Order Comment: Micro scopics not performed on urines with negative chemical reactions unless requested on original order. Performed By: #### L [id number] ####[facility] ([facility])[address] [place] [address] 30on 05-19-2025 30 The patient is Moder ately Stable - Low risk of patient condition declining or worsening The patient's goals for the shift include comfort, safety, participate in therapy, The clinical goals for the shift include get stronger, Vss, labs wnl, comfort Normal [facility] BASIC METABOLIC PANELon 05-02 Anion gap [Moles/Vol] 11 mmol/L Normal 7-20 [facility] Comment on above: Performed By: #### L [id number] ####[facility] ([facility])[address] [place] [address] Calcium [Mass/Vol] 7.6 mg/dL Low 8.6-10.3 [facility] Comment on above: Performed By: #### L [id number] ####[facility] ([facility])[address] [place] [address] Chloride [Moles/Vol] 101 mmol/L Normal 98-107 [facility] Comment on above: Performed By: #### L [id number] ####[facility] ([facility])[address] [place] [address] CO2 [Moles/Vol] 28 mmol/L Normal 21-31 [facility] Comment on above: Performed By: #### L [id number] ####[facility] ([facility])[address] [place] [address] Creatinine [Mass/Vol] 0.57 mg/dL Low 0.70-1.30 [facility] Comment on above: Performed By: #### L [id number] ####[facility] ([facility])[address] [place] [address] GLOMERULAR FILTRATION RATE ML/MIN/1.73 SQ M.PREDICTED 101.6 mL/min/1.73m*2 Normal >60.0 [facility] Comment on above: Result Comment: The [facility]???s estimated glomerular filtration rate (eGFR) will no longer include consideration of race in its calculation. The National Kidney Foundation???s eGFR Task Force developed new recommendations for the estimation of the glomerular filtration rate in the [place] They recommend immediate implementation of the new equation refit without the race variable in all laboratories because the calculation does not include race. In addition to not including race in the calculation and reporting, it included diversity in its development, and has acceptable performance characteristics and potential consequences that do not disproportionately affect any one group of individuals. Performed By: #### L [id number] ####[facility] ([facility])[address] [facility] [address] Glucose [Mass/Vol] 74 mg/dL Normal 70-100 [facility] Comment on above: Performed By: #### L [id number] ####[facility] ([facility])[address] [place] [address] Potassium [Moles/Vol] 3.7 mmol/L Normal 3.5-5.1 [facility] Comment on above: Performed By: #### L [id number] ####[facility] ([facility])[address] [address] Sodium [Moles/Vol] 136 mmol/L Normal 136-145 [facility] Comment on above: Performed By: #### L [id number] ####[facility] ([facility])[address] [address] Urea nitrogen [Mass/Vol] 11 mg/dL Normal 7-25 [facility] Comment on above: Performed By: #### L [id number] ####[facility] ([facility])[address] [address] UREA NITROGEN/CREATININ E (MASS RATIO) IN SER/PLAS 19.3 Normal [facility] Comment on above: Performed By: #### L [id number] ####[facility] ([facility])[address] [place] [address] CBC WITH AUTO DIFFERENTIALon 05-19-2025 Erythrocyte distribution width (RBC) [Ratio] 14.7 % Normal 11.5-15.0 [facility] Comment on above: Performed By: #### L [id number] ####[facility] ([facility])[address] [place] [address] ERYTHROCYTE MEAN CORPUSCULAR HEMOGLOBIN CONCENTRATION (G/DL) BY AUTOMATED 33.3 g/dL Normal 32.0-35.0 [facility] Comment on above: Performed By: #### L [id number] ####[facility] ([facility])[address] [place] [address] Hematocrit (Bld) [Volume fraction] 26.7 % Low 39.0-50.0 [facility] Comment on above: Performed By: #### L [id number] ####[facility] ([facility])[address] [place] [address] Hemoglobin (Bld) [Mass/Vol] 8.9 g/dL Low 13.0-17.0 [facility] Comment on above: Performed By: #### L [id number] ####[facility] ([facility])[address] [place] [address] MCH (RBC) [Entitic mass] 30.8 pg Normal 27.0-33.0 [facility] Comment on above: Performed By: #### L [id number] ####[facility] ([facility])[address] [place] [address] MCV (RBC) [Entitic vol] 92.4 fL Normal 82.0-98.0 [facility] Comment on above: Performed By: #### L [id number] ####[facility] ([facility])[address] [place] [address] NRBC (PER 100 WBCS) BY AUTOMATED COUNT 0.0 % Normal 0 [facility] Comment on above: Performed By: #### L [id number] ####[facility] ([facility])[address] [place] [address] PLATELETS (10*3/UL) IN BLOOD AUTOMATED COUNT 187 10*3/uL Normal 150-400 [facility] Comment on above: Performed By: #### L [id number] ####[facility] ([facility])[address] [place] [address] RBC (Bld) [#/Vol] 2.89 10*6/uL Low 4.20-5.70 [facility] Comment on above: Performed By: #### L [id number] ####[facility] ([facility])[address] [place] [address] WBC (Bld) [#/Vol] 14.21 10*3/uL High 4.00-10.60 [facility] Comment on above: Performed By: #### L [id number] ####[facility] ([facility])[address] [place] [address] MAGNESIUMon 05-19-2025 Magnesium [Mass/Vol] 1.6 mg/dL Low 1.9-2.7 [facility] Comment on above: Performed By: #### L [id number] ####[facility] ([facility])[address] [place] [address] MANUAL DIFFERENTIALon 2024 BASOPHILS (10*3/UL) IN BLOOD BY CALCULATION 0.03 10*3/uL Normal 0.00-0.20 [facility] Comment on above: Performed By: #### L [id number] ####[facility] ([facility])[address] [place] [address] BASOPHILS/100 LEUKOCYTES IN BLOOD BY AUTOMATED COUNT 0.2 % Normal 0.0-1.0 [facility] Comment on above: Performed By: #### L [id number] ####[facility] ([facility])[address] [place] [address] EOSINOPHILS (10*3/UL) IN BLOOD BY CALCULATION 0.87 10*3/uL High 0.00-0.50 [facility] Comment on above: Performed By: #### L [id number] ####[facility] ([facility])[address] [place] [address] EOSINOPHILS/100 LEUKOCYTES IN BLOOD BY AUTOMATED COUNT 6.1 % High 0.0-6.0 [facility] Comment on above: Performed By: #### L [id number] ####[facility] ([facility])[address] [place] [address] IMMATURE GRANULOCYTES (10*3/UL) IN BLOOD BY CALCULATION 0.18 10*3/uL Normal 0.00-0.20 [facility] Comment on above: Performed By: #### L [id number] ####[facility] ([facility])[address] [place] [address] IMMATURE GRANULOCYTES/100 LEUKOCYTES IN BLOOD BY AUTOMATED COUNT 1.3 % High 0.0-1.0 [facility] Comment on above: Performed By: #### L [id number] ####[facility] ([facility])[address] [place] [address] LYMPHOCYTES (10*3/UL) IN BLOOD BY CALCULATION 2.64 10*3/uL Normal 1.20-4.00 [facility] Comment on above: Performed By: #### L [id number] ####[facility] ([facility])[address] [place] [address] LYMPHOCYTES/100 LEUKOCYTES IN BLOOD BY AUTOMATED COUNT 18.6 % Low 20.0-45.0 [facility] Comment on above: Performed By: #### L [id number] ####[facility] ([facility])[address] [place] [address] MONOCYTES (10*3/UL) IN BLOOD BY CALCUATION 1.68 10*3/uL High 0.10-1.00 [facility] Comment on above: Performed By: #### L [id number] ####[facility] ([facility])[address] [place] [address] MONOCYTES/100 LEUKOCYTES IN BLOOD BY AUTOMATED COUNT 11.8 % Normal 5.0-12.0 [facility] Comment on above: Performed By: #### L [id number] ####[facility] ([facility])[address] [place] [address] NEUTROPHILS (10*3/UL) IN BLOOD BY CALCULATION 8.8 10*3/uL High 1.6-7.6 [facility] Comment on above: Performed By: #### L [id number] ####[facility] ([facility])[address] [place] [address] NEUTROPHILS/100 LEUKOCYTES IN BLOOD BY AUTOMATED COUNT 62.0 % Normal 40.0-72.0 [facility] Comment on above: Performed By: #### L [id number] ####[facility] ([facility])[address] [place] [address] PHOSPHORUSon 05-19-2025 Magnesium [Mass/Vol] 2.7 mg/dL Normal 2.5-5.0 [facility] Comment on above: Performed By: #### L [id number] ####[facility] ([facility])[address] [place] [address] 30on 05-18-2025 30 The patient is Moder ately Stable - Low risk of patient condition declining or worsening The patient's goals for the shift include comfort and safety The clinical goals for the shift include increase strength, vss, comfort, labs wnl Normal [facility] 30 Normal [facility] BASIC METABOLIC PANELon 05-02 Anion gap [Moles/Vol] 8 mmol/L Normal 7-20 [facility] Comment on above: Performed By: #### L [id number] ####[facility] ([facility])[address] [place] [address] Calcium [Mass/Vol] 7.4 mg/dL Low 8.6-10.3 [facility] Comment on above: Performed By: #### L [id number] ####[facility] ([facility])[address] [place] [address] Chloride [Moles/Vol] 100 mmol/L Normal 98-107 [facility] Comment on above: Performed By: #### L [id number] ####[facility] ([facility])[address] [place] [address] CO2 [Moles/Vol] 31 mmol/L Normal 21-31 [facility] Comment on above: Performed By: #### L [id number] ####[facility] ([facility])[address] [place] [address] Creatinine [Mass/Vol] 0.54 mg/dL Low 0.70-1.30 [facility] Comment on above: Performed By: #### L [id number] ####[facility] ([facility])[address] [place] [address] GLOMERULAR FILTRATION RATE ML/MIN/1.73 SQ M.PREDICTED 103.3 mL/min/1.73m*2 Normal >60.0 [facility] Comment on above: Result Comment: The [facility]???s estimated glomerular filtration rate (eGFR) will no longer include consideration of race in its calculation. The National Kidney Foundation???s eGFR Task Force developed new recommendations for the estimation of the glomerular filtration rate in the [place] They recommend immediate implementation of the new equation refit without the race variable in all laboratories because the calculation does not include race. In addition to not including race in the calculation and reporting, it included diversity in its development, and has acceptable performance characteristics and potential consequences that do not disproportionately affect any one group of individuals. Performed By: #### L [id number] ####[facility] ([facility])[address] [place] [address] Glucose [Mass/Vol] 106 mg/dL High 70-100 [facility] Comment on above: Performed By: #### L [id number] ####[facility] ([facility])[address] [place] [address] Potassium [Moles/Vol] 3.4 mmol/L Low 3.5-5.1 [facility] Comment on above: Performed By: #### L [id number] ####[facility] ([facility])[address] [place] [address] Sodium [Moles/Vol] 136 mmol/L Normal 136-145 [facility] Comment on above: Performed By: #### L [id number] ####[facility] ([facility])[address] [place] [address] Urea nitrogen [Mass/Vol] 11 mg/dL Normal 7-25 [facility] Comment on above: Performed By: #### L [id number] ####[facility] ([facility])[address] [place] [address] UREA NITROGEN/CREATININ E (MASS RATIO) IN SER/PLAS 20.4 Normal [facility] Comment on above: Performed By: #### L [id number] ####[facility] ([facility])[address] [place] [address] CBC WITH AUTO DIFFERENTIALon 05-18-2025 Basophils (Bld) [#/Vol] 0.03 10*3/uL Normal 0.00-0.20 [facility] Comment on above: Performed By: #### L [id number] ####[facility] ([facility])[address] [place] [address] Basophils/100 WBC (Bld) 0.2 % Normal 0.0-1.0 [facility] Comment on above: Performed By: #### L [id number] ####[facility] ([facility])[address] [place] [address] Eosinophils (Bld) [#/Vol] 0.70 10*3/uL High 0.00-0.50 [facility] Comment on above: Performed By: #### L [id number] ####[facility] ([facility])[address] [place] [address] Eosinophils/100 WBC (Bld) 5.4 % Normal 0.0-6.0 [facility] Comment on above: Performed By: #### L [id number] ####[facility] ([facility])[address] [place] [address] Erythrocyte distribution width (RBC) [Ratio] 14.6 % Normal 11.5-15.0 [facility] Comment on above: Performed By: #### L [id number] ####[facility] ([facility])[address] [place] [address] ERYTHROCYTE MEAN CORPUSCULAR HEMOGLOBIN CONCENTRATION (G/DL) BY AUTOMATED 33.9 g/dL Normal 32.0-35.0 [facility] Comment on above: Performed By: #### L [id number] ####[facility] ([facility])[address] [place] [address] Hematocrit (Bld) [Volume fraction] 24.5 % Low 39.0-50.0 [facility] Comment on above: Performed By: #### L [id number] ####[facility] ([facility])[address] [place] [address] Hemoglobin (Bld) [Mass/Vol] 8.3 g/dL Low 13.0-17.0 [facility] Comment on above: Performed By: #### L [id number] ####[facility] ([facility])[address] [place] [address] Immature granulocytes (Bld) [#/Vol] 0.10 10*3/uL Normal 0.00-0.20 [facility] Comment on above: Performed By: #### L [id number] ####[facility] ([facility])[address] [place] [address] Immature granulocytes/100 WBC (Bld) 0.8 % Normal 0.0-1.0 [facility] Comment on above: Performed By: #### L [id number] ####[facility] ([facility])[address] [place] [address] Lymphocytes (Bld) [#/Vol] 1.98 10*3/uL Normal 1.20-4.00 [facility] Comment on above: Performed By: #### L [id number] ####[facility] ([facility])[address] [place] [address] Lymphocytes/100 WBC (Bld) 15.3 % Low 20.0-45.0 [facility] Comment on above: Performed By: #### L [id number] ####[facility] ([facility])[address] [place] [address] MCH (RBC) [Entitic mass] 31.0 pg Normal 27.0-33.0 [facility] Comment on above: Performed By: #### L [id number] ####[facility] ([facility])[address] [place] [address] MCV (RBC) [Entitic vol] 91.4 fL Normal 82.0-98.0 [facility] Comment on above: Performed By: #### L [id number] ####[facility] ([facility])[address] [place] [address] Monocytes (Bld) [#/Vol] 1.37 10*3/uL High 0.10-1.00 [facility] Comment on above: Performed By: #### L [id number] ####[facility] ([facility])[address] [place] [address] Monocytes/100 WBC (Bld) 10.6 % Normal 5.0-12.0 [facility] Comment on above: Performed By: #### L [id number] ####[facility] ([facility])[address] [place] [address] Neutrophils (Bld) [#/Vol] 8.80 10*3/uL High 1.60-7.60 [facility] Comment on above: Performed By: #### L [id number] ####[facility] ([facility])[address] [place] [address] Neutrophils/100 WBC (Bld) 67.7 % Normal 40.0-72.0 [facility] Comment on above: Performed By: #### L [id number] ####[facility] ([facility])[address] [place] [address] NRBC (PER 100 WBCS) BY AUTOMATED COUNT 0.0 % Normal 0 [facility] Comment on above: Performed By: #### L [id number] ####[facility] ([facility])[address] [place] [address] PLATELETS (10*3/UL) IN BLOOD AUTOMATED COUNT 167 10*3/uL Normal 150-400 [facility] Comment on above: Performed By: #### L [id number] ####[facility] ([facility])[address] [place] [address] RBC (Bld) [#/Vol] 2.68 10*6/uL Low 4.20-5.70 [facility] Comment on above: Performed By: #### L [id number] ####[facility] ([facility])[address] [place] [address] WBC (Bld) [#/Vol] 12.98 10*3/uL High 4.00-10.60 [facility] Comment on above: Performed By: #### L [id number] ####[facility] ([facility])[address] [place] [address] CONSULTon 05-18-2025 CONSULT Normal [facility] MAGNESIUMon 05-18-2025 Magnesium [Mass/Vol] 1.6 mg/dL Low 1.9-2.7 [facility] Comment on above: Performed By: #### L [id number] ####[facility] ([facility])[address] [place] [address] PHOSPHORUSon 05-18-2025 Magnesium [Mass/Vol] 3.6 mg/dL Normal 2.5-5.0 [facility] Comment on above: Performed By: #### L [id number] ####[facility] ([facility])[address] [place] [address] 30on 05-17-2025 30 Normal [facility] BASIC METABOLIC PANELon 05-02 Anion gap [Moles/Vol] 9 mmol/L Normal 7-20 [facility] Comment on above: Performed By: #### L [id number] ####[facility] ([facility])[address] [place] [address] Calcium [Mass/Vol] 7.9 mg/dL Low 8.6-10.3 [facility] Comment on above: Performed By: #### L [id number] ####[facility] ([facility])[address] [place] [address] Chloride [Moles/Vol] 101 mmol/L Normal 98-107 [facility] Comment on above: Performed By: #### L [id number] ####[facility] ([facility])[address] [place] [address] CO2 [Moles/Vol] 29 mmol/L Normal 21-31 [facility] Comment on above: Performed By: #### L [id number] ####[facility] ([facility])[address] [place] [address] Creatinine [Mass/Vol] 0.57 mg/dL Low 0.70-1.30 [facility] Comment on above: Performed By: #### L [id number] ####[facility] ([facility])[address] [place] [address] GLOMERULAR FILTRATION RATE ML/MIN/1.73 SQ M.PREDICTED 101.6 mL/min/1.73m*2 Normal >60.0 [facility] Comment on above: Result Comment: The [facility]???s estimated glomerular filtration rate (eGFR) will no longer include consideration of race in its calculation. The [employer]???s eGFR Task Force developed new recommendations for the estimation of the glomerular filtration rate in the [place] They recommend immediate implementation of the new equation refit without the race variable in all laboratories because the calculation does not include race. In addition to not including race in the calculation and reporting, it included diversity in its development, and has acceptable performance characteristics and potential consequences that do not disproportionately affect any one group of individuals. Performed By: #### L [id number] ####[facility] (BEAKER)[address] [place] [address] Glucose [Mass/Vol] 103 mg/dL High 70-100 [facility] Comment on above: Performed By: #### L [id number] ####[facility] ([facility])[address] [place] [address] Potassium [Moles/Vol] 3.6 mmol/L Normal 3.5-5.1 [facility] Comment on above: Performed By: #### L [id number] ####[facility] ([facility])[address] [place] [address] Sodium [Moles/Vol] 135 mmol/L Low 136-145 [facility] Comment on above: Performed By: #### L [id number] ####[facility] ([facility])[address] [place] [address] Urea nitrogen [Mass/Vol] 14 mg/dL Normal 7-25 [facility] Comment on above: Performed By: #### L [id number] ####[facility] ([facility])[address] [place] [address] UREA NITROGEN/CREATININ E (MASS RATIO) IN SER/PLAS 24.6 Normal [facility] Comment on above: Performed By: #### L [id number] ####[facility] ([facility])[address] [place] [address] CBC WITH AUTO DIFFERENTIALon 05-17-2025 Basophils (Bld) [#/Vol] 0.02 10*3/uL Normal 0.00-0.20 [facility] Comment on above: Performed By: #### L [id number] ####[facility] ([facility])[address] [place] [address] Basophils/100 WBC (Bld) 0.2 % Normal 0.0-1.0 [facility] Comment on above: Performed By: #### L [id number] ####[facility] ([facility])[address] [place] [address] Eosinophils (Bld) [#/Vol] 0.22 10*3/uL Normal 0.00-0.50 [facility] Comment on above: Performed By: #### L [id number] ####[facility] ([facility])[address] [place] [address] Eosinophils/100 WBC (Bld) 1.7 % Normal 0.0-6.0 [facility] Comment on above: Performed By: #### L [id number] ####[facility] ([facility])[address] [place] [address] Erythrocyte distribution width (RBC) [Ratio] 14.5 % Normal 11.5-15.0 [facility] Comment on above: Performed By: #### L [id number] ####[facility] ([facility])[address] [place] [address] ERYTHROCYTE MEAN CORPUSCULAR HEMOGLOBIN CONCENTRATION (G/DL) BY AUTOMATED 33.3 g/dL Normal 32.0-35.0 [facility] Comment on above: Performed By: #### L [id number] ####[facility] ([facility])[address] [place] [address] Hematocrit (Bld) [Volume fraction] 25.2 % Low 39.0-50.0 [facility] Comment on above: Performed By: #### L [id number] ####[facility] ([facility])[address] [place] [address] Hemoglobin (Bld) [Mass/Vol] 8.4 g/dL Low 13.0-17.0 [facility] Comment on above: Performed By: #### L [id number] ####[facility] ([facility])[address] [place] [address] Immature granulocytes (Bld) [#/Vol] 0.07 10*3/uL Normal 0.00-0.20 [facility] Comment on above: Performed By: #### L [id number] ####[facility] ([facility])[address] [place] [address] Immature granulocytes/100 WBC (Bld) 0.6 % Normal 0.0-1.0 [facility] Comment on above: Performed By: #### L [id number] ####[facility] ([facility])[address] [place] [address] Lymphocytes (Bld) [#/Vol] 1.46 10*3/uL Normal 1.20-4.00 [facility] Comment on above: Performed By: #### L [id number] ####[facility] ([facility])[address] [place] [address] Lymphocytes/100 WBC (Bld) 11.5 % Low 20.0-45.0 [facility] Comment on above: Performed By: #### L [id number] ####[facility] ([facility])[address] [place] [address] MCH (RBC) [Entitic mass] 30.4 pg Normal 27.0-33.0 [facility] Comment on above: Performed By: #### L [id number] ####[facility] ([facility])[address] [place] [address] MCV (RBC) [Entitic vol] 91.3 fL Normal 82.0-98.0 [facility] Comment on above: Performed By: #### L [id number] ####[facility] ([facility])[address] [place] [address] Monocytes (Bld) [#/Vol] 1.30 10*3/uL High 0.10-1.00 [facility] Comment on above: Performed By: #### L [id number] ####[facility] ([facility])[address] [place] [address] Monocytes/100 WBC (Bld) 10.2 % Normal 5.0-12.0 [facility] Comment on above: Performed By: #### L [id number] ####[facility] ([facility])[address] [place] [address] Neutrophils (Bld) [#/Vol] 9.65 10*3/uL High 1.60-7.60 [facility] Comment on above: Performed By: #### L [id number] ####[facility] ([facility])[address] [place] [address] Neutrophils/100 WBC (Bld) 75.8 % High 40.0-72.0 [facility] Comment on above: Performed By: #### L [id number] ####[facility] ([facility])[address] [place] [address] NRBC (PER 100 WBCS) BY AUTOMATED COUNT 0.0 % Normal 0 [facility] Comment on above: Performed By: #### L [id number] ####[facility] ([facility])[address] [place] [address] PLATELETS (10*3/UL) IN BLOOD AUTOMATED COUNT 149 10*3/uL Low 150-400 [facility] Comment on above: Performed By: #### L [id number] ####[facility] ([facility])[address] [place] [address] RBC (Bld) [#/Vol] 2.76 10*6/uL Low 4.20-5.70 [facility] Comment on above: Performed By: #### L [id number] ####[facility] ([facility])[address] [place] [address] WBC (Bld) [#/Vol] 12.72 10*3/uL High 4.00-10.60 [facility] Comment on above: Performed By: #### L [id number] ####[facility] ([facility])[address] [place] [address] MAGNESIUMon 05-17-2025 Magnesium [Mass/Vol] 1.6 mg/dL Low 1.9-2.7 [facility] Comment on above: Performed By: #### L [id number] ####[facility] ([facility])[address] [place] [address] PHOSPHORUSon 05-17-2025 Magnesium [Mass/Vol] 2.8 mg/dL Normal 2.5-5.0 [facility] Comment on above: Performed By: #### L [id number] ####[facility] ([facility])[address] [place] [address] 30on 05-16-2025 30 Normal [facility] BASIC METABOLIC PANELon 05-02 Anion gap [Moles/Vol] 8 mmol/L Normal 7-20 [facility] Comment on above: Performed By: #### L [id number] ####[facility] ([facility])[address] [place] [address] Calcium [Mass/Vol] 7.9 mg/dL Low 8.6-10.3 [facility] Comment on above: Performed By: #### L [id number] ####[facility] ([facility])[address] [place] [address] Chloride [Moles/Vol] 102 mmol/L Normal 98-107 [facility] Comment on above: Performed By: #### L [id number] ####[facility] ([facility])[address] [place] [address] CO2 [Moles/Vol] 31 mmol/L Normal 21-31 [facility] Comment on above: Performed By: #### L [id number] ####[facility] ([facility])[address] [place] [address] Creatinine [Mass/Vol] 0.65 mg/dL Low 0.70-1.30 [facility] Comment on above: Performed By: #### L [id number] ####[facility] ([facility])[address] [place] [address] GLOMERULAR FILTRATION RATE ML/MIN/1.73 SQ M.PREDICTED 97.7 mL/min/1.73m*2 Normal >60.0 [facility] Comment on above: Result Comment: The [facility]???s estimated glomerular filtration rate (eGFR) will no longer include consideration of race in its calculation. The National Kidney Foundation???s eGFR Task Force developed new recommendations for the estimation of the glomerular filtration rate in the [place] They recommend immediate implementation of the new equation refit without the race variable in all laboratories because the calculation does not include race. In addition to not including race in the calculation and reporting, it included diversity in its development, and has acceptable performance characteristics and potential consequences that do not disproportionately affect any one group of individuals. Performed By: #### L [id number] ####[facility] ([facility])[address] [place] [address] Glucose [Mass/Vol] 102 mg/dL High 70-100 [facility] Comment on above: Performed By: #### L [id number] ####[facility] ([facility])[address] [place] [address] Potassium [Moles/Vol] 3.8 mmol/L Normal 3.5-5.1 [facility] Comment on above: Performed By: #### L [id number] ####[facility] ([facility])[address] [place] [address] Sodium [Moles/Vol] 137 mmol/L Normal 136-145 [facility] Comment on above: Performed By: #### L [id number] ####[facility] ([facility])[address] [place] [address] Urea nitrogen [Mass/Vol] 13 mg/dL Normal 7-25 [facility] Comment on above: Performed By: #### L [id number] ####[facility] ([facility])[address] [place] [address] UREA NITROGEN/CREATININ E (MASS RATIO) IN SER/PLAS 20.0 Normal [facility] Comment on above: Performed By: #### L [id number] ####[facility] ([facility])[address] [place] [address] CBC WITH AUTO DIFFERENTIALon 05-16-2025 Basophils (Bld) [#/Vol] 0.03 10*3/uL Normal 0.00-0.20 [facility] Comment on above: Performed By: #### L [id number] ####[facility] ([facility])[address] [place] [address] Basophils/100 WBC (Bld) 0.2 % Normal 0.0-1.0 [facility] Comment on above: Performed By: #### L [id number] ####[facility] ([facility])[address] [place] [address] Eosinophils (Bld) [#/Vol] 0.28 10*3/uL Normal 0.00-0.50 [facility] Comment on above: Performed By: #### L [id number] ####[facility] ([facility])[address] [place] [address] Eosinophils/100 WBC (Bld) 1.9 % Normal 0.0-6.0 [facility] Comment on above: Performed By: #### L [id number] ####[facility] ([facility])[address] [place] [address] Erythrocyte distribution width (RBC) [Ratio] 14.3 % Normal 11.5-15.0 [facility] Comment on above: Performed By: #### L [id number] ####[facility] ([facility])[address] [place] [address] ERYTHROCYTE MEAN CORPUSCULAR HEMOGLOBIN CONCENTRATION (G/DL) BY AUTOMATED 34.7 g/dL Normal 32.0-35.0 [facility] Comment on above: Performed By: #### L [id number] ####[facility] ([facility])[address] [place] [address] Hematocrit (Bld) [Volume fraction] 25.1 % Low 39.0-50.0 [facility] Comment on above: Performed By: #### L [id number] ####[facility] ([facility])[address] [place] [address] Hemoglobin (Bld) [Mass/Vol] 8.7 g/dL Low 13.0-17.0 [facility] Comment on above: Performed By: #### L [id number] ####[facility] ([facility])[address] [place] [address] Immature granulocytes (Bld) [#/Vol] 0.07 10*3/uL Normal 0.00-0.20 [facility] Comment on above: Performed By: #### L [id number] ####[facility] ([facility])[address] [place] [address] Immature granulocytes/100 WBC (Bld) 0.5 % Normal 0.0-1.0 [facility] Comment on above: Performed By: #### L [id number] ####[facility] ([facility])[address] [place] [address] IMMATURE PLATELET FRACTION % 8.4 % High 0.8-6.3 [facility] Comment on above: Performed By: #### L [id number] ####[facility] ([facility])[address] [place] [address] Lymphocytes (Bld) [#/Vol] 1.77 10*3/uL Normal 1.20-4.00 [facility] Comment on above: Performed By: #### L [id number] ####[facility] ([facility])[address] [place] [address] Lymphocytes/100 WBC (Bld) 12.3 % Low 20.0-45.0 [facility] Comment on above: Performed By: #### L [id number] ####[facility] ([facility])[address] [place] [address] MCH (RBC) [Entitic mass] 31.6 pg Normal 27.0-33.0 [facility] Comment on above: Performed By: #### L [id number] ####[facility] ([facility])[address] [place] [address] MCV (RBC) [Entitic vol] 91.3 fL Normal 82.0-98.0 [facility] Comment on above: Performed By: #### L [id number] ####[facility] ([facility])[address] [place] [address] Monocytes (Bld) [#/Vol] 1.32 10*3/uL High 0.10-1.00 [facility] Comment on above: Performed By: #### L [id number] ####[facility] ([facility])[address] [place] [address] Monocytes/100 WBC (Bld) 9.2 % Normal 5.0-12.0 [facility] Comment on above: Performed By: #### L [id number] ####[facility] ([facility])[address] [place] [address] Neutrophils (Bld) [#/Vol] 10.91 10*3/uL High 1.60-7.60 [facility] Comment on above: Performed By: #### L [id number] ####[facility] ([facility])[address] [place] [address] Neutrophils/100 WBC (Bld) 75.9 % High 40.0-72.0 [facility] Comment on above: Performed By: #### L [id number] ####[facility] ([facility])[address] [place] [address] NRBC (PER 100 WBCS) BY AUTOMATED COUNT 0.0 % Normal 0 [facility] Comment on above: Performed By: #### L [id number] ####[facility] ([facility])[address] [place] [address] PLATELETS (10*3/UL) IN BLOOD AUTOMATED COUNT 128 10*3/uL Low 150-400 [facility] Comment on above: Performed By: #### L [id number] ####[facility] ([facility])[address] [place], [place] [address] RBC (Bld) [#/Vol] 2.75 10*6/uL Low 4.20-5.70 [facility] Comment on above: Performed By: #### L [id number] ####[facility] ([facility])[address] [place], [place] [address] WBC (Bld) [#/Vol] 14.38 10*3/uL High 4.00-10.60 [facility] Comment on above: Performed By: #### L [id number] ####[facility] ([facility])[address] [place] [address] MAGNESIUMon 05-16-2025 Magnesium [Mass/Vol] 1.8 mg/dL Low 1.9-2.7 [facility] Comment on above: Performed By: #### L [id number] ####[facility] ([facility])[address] [place] [address] OCCULT BLOOD X 1, STOOLon HEMOGLOBIN GASTROINTESTINAL PRESENCE IN STOOL Positive Abnormal Negative, None Detected [facility] Comment on above: Performed By: #### L [id number] ####[facility] ([facility])[address] [place] [address] PHOSPHORUSon 05-16-2025 Magnesium [Mass/Vol] 2.7 mg/dL Normal 2.5-5.0 [facility] Comment on above: Performed By: #### L [id number] ####[facility] ([facility])[address] [place] [address] 30on 05-15-2025 30 Normal [facility] 30 Normal [facility] BASIC METABOLIC PANELon 05-02 Anion gap [Moles/Vol] 7 mmol/L Normal 7-20 [facility] Comment on above: Performed By: #### L [id number] ####[facility] ([facility])[address] [place] [address] Calcium [Mass/Vol] 7.7 mg/dL Low 8.6-10.3 [facility] Comment on above: Performed By: #### L [id number] ####[facility] ([facility])[address] [place] [address] Chloride [Moles/Vol] 103 mmol/L Normal 98-107 [facility] Comment on above: Performed By: #### L [id number] ####[facility] ([facility])[address] [place] [address] CO2 [Moles/Vol] 30 mmol/L Normal 21-31 [facility] Comment on above: Performed By: #### L [id number] ####[facility] ([facility])[address] [place] [address] Creatinine [Mass/Vol] 0.63 mg/dL Low 0.70-1.30 [facility] Comment on above: Performed By: #### L [id number] ####[facility] ([facility])[address] [place] [address] GLOMERULAR FILTRATION RATE ML/MIN/1.73 SQ M.PREDICTED 98.6 mL/min/1.73m*2 Normal >60.0 [facility] Comment on above: Result Comment: The [facility]???s estimated glomerular filtration rate (eGFR) will no longer include consideration of race in its calculation. The National Kidney Foundation???s eGFR Task Force developed new recommendations for the estimation of the glomerular filtration rate in the [place] They recommend immediate implementation of the new equation refit without the race variable in all laboratories because the calculation does not include race. In addition to not including race in the calculation and reporting, it included diversity in its development, and has acceptable performance characteristics and potential consequences that do not disproportionately affect any one group of individuals. Performed By: #### L [id number] ####[facility] ([facility])[address] [place] [address] Glucose [Mass/Vol] 81 mg/dL Normal 70-100 [facility] Comment on above: Performed By: #### L [id number] ####[facility] ([facility])[address] [place] [address] Potassium [Moles/Vol] 4.0 mmol/L Normal 3.5-5.1 [facility] Comment on above: Performed By: #### L [id number] ####[facility] ([facility])[address] [place] [address] Sodium [Moles/Vol] 136 mmol/L Normal 136-145 [facility] Comment on above: Performed By: #### L [id number] ####[facility] ([facility])[address] [place] [address] Urea nitrogen [Mass/Vol] 13 mg/dL Normal 7-25 [facility] Comment on above: Performed By: #### L [id number] ####[facility] ([facility])[address] [place] [address] UREA NITROGEN/CREATININ E (MASS RATIO) IN SER/PLAS 20.6 Normal [facility] Comment on above: Performed By: #### L [id number] ####[facility] ([facility])[address] [place] [address] CBC WITH AUTO DIFFERENTIALon 05-15-2025 Erythrocyte distribution width (RBC) [Ratio] 14.6 % Normal 11.5-15.0 [facility] Comment on above: Performed By: #### L [id number] ####[facility] ([facility])[address] [place] [address] ERYTHROCYTE MEAN CORPUSCULAR HEMOGLOBIN CONCENTRATION (G/DL) BY AUTOMATED 34.4 g/dL Normal 32.0-35.0 [facility] Comment on above: Performed By: #### L [id number] ####[facility] ([facility])[address] [place] [address] Hematocrit (Bld) [Volume fraction] 27.0 % Low 39.0-50.0 [facility] Comment on above: Performed By: #### L [id number] ####[facility] ([facility])[address] [place] [address] Hemoglobin (Bld) [Mass/Vol] 9.3 g/dL Low 13.0-17.0 [facility] Comment on above: Performed By: #### L [id number] ####[facility] ([facility])[address] [place] [address] IMMATURE PLATELET FRACTION % 8.9 % High 0.8-6.3 [facility] Comment on above: Performed By: #### L [id number] ####[facility] ([facility])[address] [place] [address] MCH (RBC) [Entitic mass] 32.4 pg Normal 27.0-33.0 [facility] Comment on above: Performed By: #### L [id number] ####[facility] ([facility])[address] [place] [address] MCV (RBC) [Entitic vol] 94.1 fL Normal 82.0-98.0 [facility] Comment on above: Performed By: #### L [id number] ####[facility] ([facility])[address] [place] [address] NRBC (PER 100 WBCS) BY AUTOMATED COUNT 0.0 % Normal 0 [facility] Comment on above: Performed By: #### L [id number] ####[facility] ([facility])[address] [place] [address] PLATELETS (10*3/UL) IN BLOOD AUTOMATED COUNT 103 10*3/uL Low 150-400 [facility] Comment on above: Performed By: #### L [id number] ####[facility] ([facility])[address] [place] [address] RBC (Bld) [#/Vol] 2.87 10*6/uL Low 4.20-5.70 [facility] Comment on above: Performed By: #### L [id number] ####[facility] ([facility])[address] [place] [address] WBC (Bld) [#/Vol] 16.37 10*3/uL High 4.00-10.60 [facility] Comment on above: Performed By: #### L [id number] ####[facility] ([facility])[address] [place] [address] MAGNESIUMon 05-15-2025 Magnesium [Mass/Vol] 1.7 mg/dL Low 1.9-2.7 [facility] Comment on above: Performed By: #### L [id number] ####[facility] ([facility])[address] [place] [address] MANUAL DIFFERENTIALon 2024 BASOPHILS (10*3/UL) IN BLOOD BY CALCULATION 0.07 10*3/uL Normal 0.00-0.20 [facility] Comment on above: Performed By: #### L [id number] ####[facility] ([facility])[address] [place] [address] BASOPHILS/100 LEUKOCYTES IN BLOOD BY AUTOMATED COUNT 0.4 % Normal 0.0-1.0 [facility] Comment on above: Performed By: #### L [id number] ####[facility] ([facility])[address] [place] [address] EOSINOPHILS (10*3/UL) IN BLOOD BY CALCULATION 0.34 10*3/uL Normal 0.00-0.50 [facility] Comment on above: Performed By: #### L [id number] ####[facility] ([facility])[address] [place] [address] EOSINOPHILS/100 LEUKOCYTES IN BLOOD BY AUTOMATED COUNT 2.1 % Normal 0.0-6.0 [facility] Comment on above: Performed By: #### L [id number] ####[facility] ([facility])[address] [place] [address] IMMATURE GRANULOCYTES (10*3/UL) IN BLOOD BY CALCULATION 0.08 10*3/uL Normal 0.00-0.20 [facility] Comment on above: Performed By: #### L [id number] ####[facility] ([facility])[address] [place] [address] IMMATURE GRANULOCYTES/100 LEUKOCYTES IN BLOOD BY AUTOMATED COUNT 0.5 % Normal 0.0-1.0 [facility] Comment on above: Performed By: #### L [id number] ####[facility] ([facility])[address] [place] [address] LYMPHOCYTES (10*3/UL) IN BLOOD BY CALCULATION 2.57 10*3/uL Normal 1.20-4.00 [facility] Comment on above: Performed By: #### L [id number] ####[facility] ([facility])[address] [place] [address] LYMPHOCYTES/100 LEUKOCYTES IN BLOOD BY AUTOMATED COUNT 15.7 % Low 20.0-45.0 [facility] Comment on above: Performed By: #### L [id number] ####[facility] ([facility])[address] [place] [address] MONOCYTES (10*3/UL) IN BLOOD BY CALCUATION 1.77 10*3/uL High 0.10-1.00 [facility] Comment on above: Performed By: #### L [id number] ####[facility] ([facility])[address] [place] [address] MONOCYTES/100 LEUKOCYTES IN BLOOD BY AUTOMATED COUNT 10.8 % Normal 5.0-12.0 [facility] Comment on above: Performed By: #### L [id number] ####[facility] ([facility])[address] [place] [address] NEUTROPHILS (10*3/UL) IN BLOOD BY CALCULATION 11.5 10*3/uL High 1.6-7.6 [facility] Comment on above: Performed By: #### L [id number] ####[facility] ([facility])[address] [place] [address] NEUTROPHILS/100 LEUKOCYTES IN BLOOD BY AUTOMATED COUNT 70.5 % Normal 40.0-72.0 [facility] Comment on above: Performed By: #### L [id number] ####[facility] ([facility])[address] [place] [address] NURSNOTEon 05-15-2025 NURSNOTE Normal [facility] NURSNOTE Normal [facility] NURSNOTE Normal [facility] PHOSPHORUSon 05-15-2025 Magnesium [Mass/Vol] 1.9 mg/dL Low 2.5-5.0 [facility] Comment on above: Performed By: #### L [id number] ####[facility] ([facility])[address] [place] [address] 30on 05-14-2025 30 Normal [facility] 30 Normal [facility] BASIC METABOLIC PANELon 05-02 Anion gap [Moles/Vol] 6 mmol/L Low 7-20 [facility] Comment on above: Performed By: #### L [id number] ####[facility] ([facility])[address] [place] [address] Calcium [Mass/Vol] 7.7 mg/dL Low 8.6-10.3 [facility] Comment on above: Performed By: #### L [id number] ####[facility] ([facility])[address] [place] [address] Chloride [Moles/Vol] 106 mmol/L Normal 98-107 [facility] Comment on above: Performed By: #### L [id number] ####[facility] ([facility])[address] [place] [address] CO2 [Moles/Vol] 30 mmol/L Normal 21-31 [facility] Comment on above: Performed By: #### L [id number] ####[facility] ([facility])[address] [place] [address] Creatinine [Mass/Vol] 0.71 mg/dL Normal 0.70-1.30 [facility] Comment on above: Performed By: #### L [id number] ####[facility] ([facility])[address] [place] [address] GLOMERULAR FILTRATION RATE ML/MIN/1.73 SQ M.PREDICTED 95.1 mL/min/1.73m*2 Normal >60.0 [facility] Comment on above: Result Comment: The [facility]???s estimated glomerular filtration rate (eGFR) will no longer include consideration of race in its calculation. The National Kidney Foundation???s eGFR Task Force developed new recommendations for the estimation of the glomerular filtration rate in the [place] They recommend immediate implementation of the new equation refit without the race variable in all laboratories because the calculation does not include race. In addition to not including race in the calculation and reporting, it included diversity in its development, and has acceptable performance characteristics and potential consequences that do not disproportionately affect any one group of individuals. Performed By: #### L [id number] ####[facility] ([facility])[address] [place] [address] Glucose [Mass/Vol] 91 mg/dL Normal 70-100 [facility] Comment on above: Performed By: #### L [id number] ####[facility] ([facility])[address] [place] [address] Potassium [Moles/Vol] 4.4 mmol/L Normal 3.5-5.1 [facility] Comment on above: Performed By: #### L [id number] ####[facility] ([facility])[address] [place] [address] Sodium [Moles/Vol] 138 mmol/L Normal 136-145 [facility] Comment on above: Performed By: #### L [id number] ####[facility] ([facility])[address] [place] [address] Urea nitrogen [Mass/Vol] 16 mg/dL Normal 7-25 [facility] Comment on above: Performed By: #### L [id number] ####[facility] ([facility] [place] [address] UREA NITROGEN/CREATININ E (MASS RATIO) IN SER/PLAS 22.5 Normal [facility] Comment on above: Performed By: #### L [id number] ####[facility] ([facility])[address] [place] [address] CBC WITH AUTO DIFFERENTIALon 05-14-2025 Erythrocyte distribution width (RBC) [Ratio] 14.6 % Normal 11.5-15.0 [facility] Comment on above: Performed By: #### L [id number] ####[facility] ([facility])[address] [place] [address] ERYTHROCYTE MEAN CORPUSCULAR HEMOGLOBIN CONCENTRATION (G/DL) BY AUTOMATED 33.1 g/dL Normal 32.0-35.0 [facility] Comment on above: Performed By: #### L [id number] ####[facility] ([facility])[address] [place] [address] Hematocrit (Bld) [Volume fraction] 29.9 % Low 39.0-50.0 [facility] Comment on above: Performed By: #### L [id number] ####[facility] ([facility])[address] [place] [address] Hemoglobin (Bld) [Mass/Vol] 9.9 g/dL Low 13.0-17.0 [facility] Comment on above: Performed By: #### L [id number] ####[facility] ([facility])[address] [place] [address] MCH (RBC) [Entitic mass] 30.5 pg Normal 27.0-33.0 [facility] Comment on above: Performed By: #### L [id number] ####[facility] ([facility])[address] [place] [address] MCV (RBC) [Entitic vol] 92.0 fL Normal 82.0-98.0 [facility] Comment on above: Performed By: #### L [id number] ####[facility] ([facility])[address] [place] [address] NRBC (PER 100 WBCS) BY AUTOMATED COUNT 0.0 % Normal 0 [facility] Comment on above: Performed By: #### L [id number] ####[facility] ([facility])[address] [place] [address] PLATELETS (10*3/UL) IN BLOOD AUTOMATED COUNT 117 10*3/uL Low 150-400 [facility] Comment on above: Performed By: #### L [id number] ####[facility] ([facility])[address] [place] [address] RBC (Bld) [#/Vol] 3.25 10*6/uL Low 4.20-5.70 [facility] Comment on above: Performed By: #### L [id number] ####[facility] ([facility])[address] [place] [address] WBC (Bld) [#/Vol] 18.84 10*3/uL High 4.00-10.60 [facility] Comment on above: Performed By: #### L [id number] ####[facility] ([facility])[address] [place] [address] EXTEM Con 05-14-2025 EXTEM C A10 61 mm Normal 45-62 [facility] Comment on above: Performed By: #### E XTEM C ####[facility] [id number] [place] [address] [place] EXTEM C A20 68 mm Normal 54-69 [facility] Comment on above: Performed By: #### E XTEM C ####[facility] [id number] [place] [address] [place] EXTEM C A5 51 mm Normal 33-52 [facility] Comment on above: Performed By: #### E XTEM C ####[facility] [id number] [place] [address] 61 s Normal 51-73 [facility] Comment on above: Performed By: #### E XTEM C ####[facility] [id number] [facility] [address] [place] EXTEM C ML 0 % Normal 0-6 [facility] Comment on above: Result Comment: OR^P reliminary Result Performed By: #### E XTEM C ####[facility] [id number] [facility] [address] [place] FIBTEM Con 05-14-2025 FIBTEM C A10 20 mm High 6-17 [facility] Comment on above: Performed By: #### F IBTEM C ####[facility] [id number] [facility] [place] [address] [facility] FIBTEM C A20 22 mm High 6-18 [facility] Comment on above: Performed By: #### F IBTEM C ####[facility] [id number] [facility] [place] [address] [place] FIBTEM C A5 18 mm High 5-16 [facility] Comment on above: Performed By: #### F IBTEM C ####[facility] [id number] [facility] [place] [address] [place] HEMOGLOBIN AND HEMATOCRIT, B LOODon 05-14-2025 Hematocrit (Bld) [Volume fraction] 30.6 % Low 39.0-50.0 [facility] Comment on above: Performed By: #### L [id number] ####[facility] ([facility])[address] [place] [address] Hemoglobin (Bld) [Mass/Vol] 10.3 g/dL Low 13.0-17.0 [facility] Comment on above: Performed By: #### L [id number] ####[facility] ([facility])[address] [place] [address] HEPTEM Con 05-14-2025 HEPTEM C A10 59 mm Normal 44-61 [facility] Comment on above: Performed By: #### H EPTEM C ####[facility] [id number] [facility] [place] [address] [place] HEPTEM C A20 66 mm Normal 52-67 [facility] Comment on above: Performed By: #### H EPTEM C ####[facility] [id number] [facility] [place] [address] [facility] HEPTEM C A5 48 mm Normal 33-51 [facility] Comment on above: Performed By: #### H EPTEM C ####[facility] [id number] [facility] [place] [address] [facility] HEPTEM C CT 157 s Normal 141-215 [facility] Comment on above: Performed By: #### H EPTEM C ####[facility] [id number] [place] [address] [facility] INTEM Con 05-14-2025 INTEM C A10 60 mm Normal 46-63 [facility] Comment on above: Performed By: #### I NTEM C ####[facility] [id number] [place] [address] [facility] INTEM C A20 67 mm Normal 53-68 [facility] Comment on above: Performed By: #### I NTEM C ####[facility] [id number] [place] [address] [facility] INTEM C A5 50 mm Normal 36-54 [facility] Comment on above: Performed By: #### I NTEM C ####[facility] [id number] [place] [address] [facility] INTEM C CT 160 s Normal 139-205 [facility] Comment on above: Performed By: #### I NTEM C ####[facility] [id number] [place] [address] [facility] INTEM C ML 0 % Normal 0-7 [facility] Comment on above: Result Comment: OR^P reliminary Result Performed By: #### I NTEM C ####[facility] [id number] [place] [address] [place] MAGNESIUMon 05-14-2025 Magnesium [Mass/Vol] 1.8 mg/dL Low 1.9-2.7 [facility] Comment on above: Performed By: #### L [id number] ####[facility] ([facility])[address] [place] [address] MANUAL DIFFERENTIALon 2024 BASOPHILS (10*3/UL) IN BLOOD BY CALCULATION 0.00 10*3/uL Normal 0.00-0.20 [facility] Comment on above: Performed By: #### L [id number] ####[facility] ([facility])[address] [place] [address] BASOPHILS/100 LEUKOCYTES IN BLOOD BY AUTOMATED COUNT 0.0 % Normal 0.0-1.0 [facility] Comment on above: Performed By: #### L [id number] ####[facility] ([facility])[address] [place] [address] EOSINOPHILS (10*3/UL) IN BLOOD BY CALCULATION 0.00 10*3/uL Normal 0.00-0.50 [facility] Comment on above: Performed By: #### L [id number] ####[facility] ([facility])[address] [place] [address] EOSINOPHILS/100 LEUKOCYTES IN BLOOD BY AUTOMATED COUNT 0.0 % Normal 0.0-6.0 [facility] Comment on above: Performed By: #### L [id number] ####[facility] ([facility])[address] [place] [address] IMMATURE GRANULOCYTES (10*3/UL) IN BLOOD BY CALCULATION 0.08 10*3/uL Normal 0.00-0.20 [facility] Comment on above: Performed By: #### L [id number] ####[facility] ([facility])[address] [place] [address] IMMATURE GRANULOCYTES/100 LEUKOCYTES IN BLOOD BY AUTOMATED COUNT 0.4 % Normal 0.0-1.0 [facility] Comment on above: Performed By: #### L [id number] ####[facility] ([facility])[address] [place] [address] LYMPHOCYTES (10*3/UL) IN BLOOD BY CALCULATION 3.24 10*3/uL Normal 1.20-4.00 [facility] Comment on above: Performed By: #### L [id number] ####[facility] ([facility])[address] [place] [address] LYMPHOCYTES/100 LEUKOCYTES IN BLOOD BY AUTOMATED COUNT 17.2 % Low 20.0-45.0 [facility] Comment on above: Performed By: #### L [id number] ####[facility] ([facility])[address] [place] [address] MONOCYTES (10*3/UL) IN BLOOD BY CALCUATION 1.13 10*3/uL High 0.10-1.00 [facility] Comment on above: Performed By: #### L [id number] ####[facility] ([facility])[address] [place] [address] MONOCYTES/100 LEUKOCYTES IN BLOOD BY AUTOMATED COUNT 6.0 % Normal 5.0-12.0 [facility] Comment on above: Performed By: #### L [id number] ####[facility] ([facility])[address] [place] [address] NEUTROPHILS (10*3/UL) IN BLOOD BY CALCULATION 14.5 10*3/uL High 1.6-7.6 [facility] Comment on above: Performed By: #### L [id number] ####[facility] ([facility])[address] [place] [address] NEUTROPHILS/100 LEUKOCYTES IN BLOOD BY AUTOMATED COUNT 76.8 % High 40.0-72.0 [facility] Comment on above: Performed By: #### L [id number] ####[facility] ([facility])[address] [place] [address] PLASMA CELLS/100 LEUKOCYTES IN BLOOD 0 % Normal 0 [facility] Comment on above: Performed By: #### L [id number] ####[facility] ([facility])[address] [place] [address] PLATELETS GIANT PRESENCE IN BLOOD BY LIGHT MICROSCOPY Present Normal [facility] Comment on above: Performed By: #### L [id number] ####[facility] ([facility])[address] [place] [address] VARIANT LYMPHOCYTES (10*3/UL) IN BLOOD BY CALCULATION 0.00 10*3/uL Normal 0.00 [facility] Comment on above: Performed By: #### L [id number] ####[facility])[address] [place] [address] VARIANT LYMPHOCYTES/100 LEUKOCYTES IN BLOOD CELLAVISION 0.0 % Normal 0.0-0.0 [facility] Comment on above: Performed By: #### L [id number] ####[facility] ([facility])[address] [place] [address] PHOSPHORUSon 05-14-2025 Magnesium [Mass/Vol] 2.1 mg/dL Low 2.5-5.0 [facility] Comment on above: Performed By: #### L [id number] ####[facility] ([facility] [place] [address] 30on 05-13-2025 30 Normal [facility] ANESon 05-13-2025 ANES Normal [facility] ANES Normal [facility] BASIC METABOLIC PANELon 05-02 Anion gap [Moles/Vol] 8 mmol/L Normal 7-20 [facility] Comment on above: Performed By: #### L [id number] ####[facility] ([facility])[address] [place] [address] Calcium [Mass/Vol] 7.8 mg/dL Low 8.6-10.3 [facility] Comment on above: Performed By: #### L [id number] ####[facility])[address] [place] [address] Chloride [Moles/Vol] 107 mmol/L Normal 98-107 [facility] Comment on above: Performed By: #### L [id number] ####[facility] ([facility])[address] [place] [address] CO2 [Moles/Vol] 27 mmol/L Normal 21-31 [facility] Comment on above: Performed By: #### L [id number] ####[facility] ([facility])[address] [place] [address] Creatinine [Mass/Vol] 0.82 mg/dL Normal 0.70-1.30 [facility] Comment on above: Performed By: #### L [id number] ####[facility] ([facility])[address] [place] [address] GLOMERULAR FILTRATION RATE ML/MIN/1.73 SQ M.PREDICTED 91.0 mL/min/1.73m*2 Normal >60.0 [facility] Comment on above: Result Comment: The [facility]???s estimated glomerular filtration rate (eGFR) will no longer include consideration of race in its calculation. The National Kidney Foundation???s eGFR Task Force developed new recommendations for the estimation of the glomerular filtration rate in the [place] They recommend immediate implementation of the new equation refit without the race variable in all laboratories because the calculation does not include race. In addition to not including race in the calculation and reporting, it included diversity in its development, and has acceptable performance characteristics and potential consequences that do not disproportionately affect any one group of individuals. Performed By: #### L [id number] ####[facility] ([facility])[address] [place] [address] Glucose [Mass/Vol] 130 mg/dL High 70-100 [facility] Comment on above: Performed By: #### L [id number] ####[facility] ([facility])[address] [place] [address] Potassium [Moles/Vol] 4.3 mmol/L Normal 3.5-5.1 [facility] Comment on above: Performed By: #### L [id number] ####[facility] ([facility])[address] [place] [address] Sodium [Moles/Vol] 138 mmol/L Normal 136-145 [facility] Comment on above: Performed By: #### L [id number] ####[facility] ([facility])[address] [place] [address] Urea nitrogen [Mass/Vol] 12 mg/dL Normal 7-25 [facility] Comment on above: Performed By: #### L [id number] ####[facility] ([facility])[address] [place] [address] UREA NITROGEN/CREATININ E (MASS RATIO) IN SER/PLAS 14.6 Normal [facility] Comment on above: Performed By: #### L [id number] ####[facility] ([facility])[address] [place] [address] CBC WITH AUTO DIFFERENTIALon 05-13-2025 Erythrocyte distribution width (RBC) [Ratio] 14.4 % Normal 11.5-15.0 [facility] Comment on above: Performed By: #### L [id number] ####[facility] ([facility])[address] [place] [address] ERYTHROCYTE MEAN CORPUSCULAR HEMOGLOBIN CONCENTRATION (G/DL) BY AUTOMATED 34.4 g/dL Normal 32.0-35.0 [facility] Comment on above: Performed By: #### L [id number] ####[facility] ([facility])[address] [place] [address] Hematocrit (Bld) [Volume fraction] 38.1 % Low 39.0-50.0 [facility] Comment on above: Performed By: #### L [id number] ####[facility] ([facility])[address] [place] [address] Hemoglobin (Bld) [Mass/Vol] 13.1 g/dL Normal 13.0-17.0 [facility] Comment on above: Performed By: #### L [id number] ####[facility] ([facility])[address] [place] [address] IMMATURE PLATELET FRACTION % 10.6 % High 0.8-6.3 [facility] Comment on above: Performed By: #### L [id number] ####[facility] ([facility])[address] [place] [address] MCH (RBC) [Entitic mass] 30.5 pg Normal 27.0-33.0 [facility] Comment on above: Performed By: #### L [id number] ####[facility] ([facility] [place] [address] MCV (RBC) [Entitic vol] 88.8 fL Normal 82.0-98.0 [facility] Comment on above: Performed By: #### L [id number] ####[facility] ([facility] [place] [address] NRBC (PER 100 WBCS) BY AUTOMATED COUNT 0.0 % Normal 0 [facility] Comment on above: Performed By: #### L [id number] ####[facility] ([facility])[address] [place] [address] PLATELETS (10*3/UL) IN BLOOD AUTOMATED COUNT 120 10*3/uL Low 150-400 [facility] Comment on above: Performed By: #### L [id number] ####[facility] ([facility])[address] [place] [address] RBC (Bld) [#/Vol] 4.29 10*6/uL Normal 4.20-5.70 [facility] Comment on above: Performed By: #### L [id number] ####[facility] ([facility])[address] [place] [address] WBC (Bld) [#/Vol] 25.00 10*3/uL High 4.00-10.60 [facility] Comment on above: Performed By: #### L [id number] ####[facility] ([facility])[address] [place] [address] HISTOLOGY - TISSUE EXAMon LAB AP ADDENDUM 1 Normal [facility] Comment on above: Order Comment: Pre-o p diagnosis:SBO (small bowel obstruction) (CMS/HCC) [K56.609] Result Comment: To r eport comment. Comment: Possible etiologies for ischemic type mucosal injury include true ischemic colitis, infection or drug reaction.Addendum electronically signed by Abe Huber MD on 05/14/2025 at 1722 EDT Performed By: #### L [id number] ####[facility] ([facility])[address] [place] [address] LAB AP CASE REPORT Normal [facility] Comment on above: Order Comment: Pre-o p diagnosis:SBO (small bowel obstruction) (CMS/HCC) [K56.609] Result Comment: Surg ical Pathology Case: [id number] Provider: Eduardo Pearson MD Collected: 05/13/2025 0200Ordering Location: [facility] Received: 05/13/2025 0716Pathologist: NIK Watkinspecimens: A) - Appendix, APPENDIX B) - Small Intestine, Small Bowel Performed By: #### L [id number] ####[facility] ([facility])[address] [facility] [address] LAB AP CLINICAL INFORMATION Normal [facility] Comment on above: Order Comment: Pre-o p diagnosis:SBO (small bowel obstruction) (CMS/HCC) [K56.609] Result Comment: Post -Op [id number] - SBO (small bowel obstruction) (CMS/HCC) [ICD-10-CM] Performed By: #### L [id number] ####[facility] ([facility])[address] [facility] [address] LAB AP GROSS DESCRIPTION A. Appendix. Normal [facility] Comment on above: Order Comment: Pre-o p diagnosis:SBO (small bowel obstruction) (CMS/HCC) [K56.609] Result Comment: Rece ived in formalin in a container labeled Darrell Nelson, BETSY . It consists of an intact appendix measuring 5.2 cm in length by 0.6 cm in diameter. The attached mesoappendix extends up to 2.1 cm from the wall. There is a 1.2 cm in length staple line at the proximal end. An additional detached tubular piece of tissue, presumably true proximal margin, is present measuring 0.9 cm in length by 0.7 cm in diameter, with 2 stapled ends.. One end also has embedded sutures.The entirety of the serosa is pink-ruano and smooth. The mucosa is pink-ruano. The lumen measures 0.2 cm and contains fecal material. The wall is pink-ruano and unremarkable with a 0.2 cm average thickness. No perforations, masses, or other lesions are identified. Material Reclaimer sections are submitted as follows:A1: Distal tip, bisected, and proximal margin, shaveA2: Detached piece of tissue (presumed true proximal margin), inked black, and personal financial representative sectionsDONNA Webster1Ngriffin Hutchinson, Pathologists' AssistantB. Small Intestine.Received in formalin in a container labeled Darrell Nelson, Small Bowel . It consists of a segment of unoriented small bowel measuring 25.5 cm in length by 5.0 cm in open circumference with 2 stapled ends. The mesenteric fibroadipose tissue extends up to 2.9 cm from the bowel wall. The the bowel wall measures up to 3 cm in thickness.The serosal surface is dark red-purple, congested, and dull, with focal dark brown-red adhesions. There are 2.5 cm of dark pink serosa at both ends. The mucosal surface is diffusely dark red. The mesenteric fat displays 2 dark red areas measuring 6.0 and 4.5 cm in length. Sectioning reveals congested mesenteric vessels. No strictures or obstruction are present. Two possible lymph nodes are identified, each measuring up to 0.3 cm. Material Reclaimer sections are submitted as follows:B1: Stapled margins, shaveB2-3: Small bowel, representativeB4-5: Mesentery, representativeB6: Two possible lymph nodes, intactKelDONNA Liu1Ngriffin Hutchinson Pathologists' Certified Peer Specialist Performed By: #### L [id number] ####[facility] ([facility])[address] [place] [address] LAB AP MICROSCOPIC DESCRIPTION Microscopic examination performed. Normal [facility] Comment on above: Order Comment: Pre-o p diagnosis:SBO (small bowel obstruction) (CMS/HCC) [K56.609] Performed By: #### L [id number] ####[facility] (BEAKER)[address] [place] [address] LAB AP REPORT FINAL DIAGNOSIS NARRATIVE Normal [facility] Comment on above: Order Comment: Pre-o p diagnosis:SBO (small bowel obstruction) (CMS/HCC) [K56.609] Result Comment: A. A ppendix, appendectomy: - Acute superficial appendicitis.B. Small bowel, resection: - Small bowel mucosa with changes consistent with ischemic type mucosal injury (see comment). - No dysplasia or malignancy identified. - Resection margins viable. - Acute serositis with fibrovascular adhesions. - Two lymph nodes negative for tumor (0/2). at 1718 EDT Performed By: #### L [id number] ####[facility] ([facility])[address] [place] [address] LACTIC ACID, PLASMAon 2024 LACTATE (MMOL/L) IN SER/PLAS 1.0 mmol/L Normal 0.5-2.2 [facility] Comment on above: Performed By: #### L [id number] ####[facility] ([facility])[address] [place] [address] MAGNESIUMon 05-13-2025 Magnesium [Mass/Vol] 1.6 mg/dL Low 1.9-2.7 [facility] Comment on above: Performed By: #### L [id number] ####[facility] ([facility])[address] [place] [address] MANUAL DIFFERENTIALon 2024 BASOPHILS (10*3/UL) IN BLOOD BY CALCULATION 0.03 10*3/uL Normal 0.00-0.20 [facility] Comment on above: Performed By: #### L [id number] ####[facility] ([facility])[address] [place] [address] BASOPHILS/100 LEUKOCYTES IN BLOOD BY AUTOMATED COUNT 0.1 % Normal 0.0-1.0 [facility] Comment on above: Performed By: #### L [id number] ####[facility] ([facility])[address] [place] [address] EOSINOPHILS (10*3/UL) IN BLOOD BY CALCULATION 0.00 10*3/uL Normal 0.00-0.50 [facility] Comment on above: Performed By: #### L [id number] ####[facility] ([facility])[address] [place] [address] EOSINOPHILS/100 LEUKOCYTES IN BLOOD BY AUTOMATED COUNT 0.0 % Normal 0.0-6.0 [facility] Comment on above: Performed By: #### L [id number] ####[facility] ([facility])[address] [place] [address] IMMATURE GRANULOCYTES (10*3/UL) IN BLOOD BY CALCULATION 0.13 10*3/uL Normal 0.00-0.20 [facility] Comment on above: Performed By: #### L [id number] ####[facility] ([facility])[address] [place] [address] IMMATURE GRANULOCYTES/100 LEUKOCYTES IN BLOOD BY AUTOMATED COUNT 0.5 % Normal 0.0-1.0 [facility] Comment on above: Performed By: #### L [id number] ####[facility] ([facility])[address] [place], [place] [address] LYMPHOCYTES (10*3/UL) IN BLOOD BY CALCULATION 1.15 10*3/uL Low 1.20-4.00 [facility] Comment on above: Performed By: #### L [id number] ####[facility] ([facility])[address] [place], [place] [address] LYMPHOCYTES/100 LEUKOCYTES IN BLOOD BY AUTOMATED COUNT 4.6 % Low 20.0-45.0 [facility] Comment on above: Performed By: #### L [id number] ####[facility] ([facility])[address] [place], [place] [address] MONOCYTES (10*3/UL) IN BLOOD BY CALCUATION 1.58 10*3/uL High 0.10-1.00 [facility] Comment on above: Performed By: #### L [id number] ####[facility] ([facility])[address] [place] [address] MONOCYTES/100 LEUKOCYTES IN BLOOD BY AUTOMATED COUNT 6.3 % Normal 5.0-12.0 [facility] Comment on above: Performed By: #### L [id number] ####[facility] ([facility])[address] [place], [place] [address] NEUTROPHILS (10*3/UL) IN BLOOD BY CALCULATION 22.1 10*3/uL High 1.6-7.6 [facility] Comment on above: Performed By: #### L [id number] ####[facility] ([employer])[address] [place] [address] NEUTROPHILS/100 LEUKOCYTES IN BLOOD BY AUTOMATED COUNT 88.5 % High 40.0-72.0 [facility] Comment on above: Performed By: #### L [id number] ####[facility] (Social Tables)[address] [place] [address] OPNOTEon 05-13-2025 OPNOTE Normal [facility] PHOSPHORUSon 05-13-2025 Magnesium [Mass/Vol] 2.6 mg/dL Normal 2.5-5.0 [facility] Comment on above: Performed By: #### L [id number] ####[facility] ([facility])[address] [place] [address] PROTIME-INRon 05-13-2025 INR IN PPP BY COAGULATION ASSAY 1.12 High 0.90-1.10 [facility] Comment on above: Result Comment: ACCC P RECOMMENDED INR FOR WARFARIN THERAPY CONDITION INRPROPHYLAXIS OF VENOUS THROMBOSIS 2-3(HIGH-RISK SURGERY)TREATMENT OF VENOUS THROMBOSIS 2-3TREATMENT OF PULMONARY EMBOLISM 2-3PREVENTION OF SYSTEMIC EMBOLISM: 2-3 ACUTE MYOCARDIAL INFARCTION TISSUE HEART VALVES VALVULAR HEART DISEASE ATRIAL FIBRILLATION RECURRENT SYSTEMIC EMBOLISMMECHANICAL HEART VALVE 2.5-3.5 FROM: ORAL ANTICOAGULANTS. MECHANISM OF ACTION, CLINICAL EFFECTIVENESS, AND OPTIMAL THERAPEUTIC RANGE. CHEST 1995;108:231S-246S. Performed By: #### L [id number] ####[facility] (Social Tables)[address] [place] [address] PROTHROMBIN TIME (PT) IN PPP BY COAGULATION ASSAY 14.4 Seconds Normal 12.3-14.8 [facility] Comment on above: Performed By: #### L [id number] ####[facility] ([facility])[address] [place] [address] CBC WITH AUTO DIFFERENTIALon 05-12-2025 Erythrocyte distribution width (RBC) [Ratio] 14.3 % Normal 11.5-15.0 [facility] Comment on above: Performed By: #### L [id number] ####[facility] ([facility])[address] [place] [address] ERYTHROCYTE MEAN CORPUSCULAR HEMOGLOBIN CONCENTRATION (G/DL) BY AUTOMATED 34.4 g/dL Normal 32.0-35.0 [facility] Comment on above: Performed By: #### L [id number] ####[facility] ([facility])[address] [place] [address] Hematocrit (Bld) [Volume fraction] 43.6 % Normal 39.0-50.0 [facility] Comment on above: Performed By: #### L [id number] ####[facility] ([facility])[address] [place] [address] Hemoglobin (Bld) [Mass/Vol] 15.0 g/dL Normal 13.0-17.0 [facility] Comment on above: Performed By: #### L [id number] ####[facility] ([facility])[address] [place] [address] MCH (RBC) [Entitic mass] 31.1 pg Normal 27.0-33.0 [facility] Comment on above: Performed By: #### L [id number] ####[facility] (BEAKER)[address] [place] [address] MCV (RBC) [Entitic vol] 90.3 fL Normal 82.0-98.0 [facility] Comment on above: Performed By: #### L [id number] ####[facility] (BEAKER)[address] [place] [address] NRBC (PER 100 WBCS) BY AUTOMATED COUNT 0.0 % Normal 0 [facility] Comment on above: Performed By: #### L [id number] ####[facility] ([facility])[address] [place] [address] PLATELETS (10*3/UL) IN BLOOD AUTOMATED COUNT 134 10*3/uL Low 150-400 [facility] Comment on above: Performed By: #### L [id number] ####[facility] ([facility])[address] [place] [address] RBC (Bld) [#/Vol] 4.83 10*6/uL Normal 4.20-5.70 [facility] Comment on above: Performed By: #### L [id number] ####[facility] ([facility])[address] [place] [address] WBC (Bld) [#/Vol] 19.28 10*3/uL High 4.00-10.60 [facility] Comment on above: Performed By: #### L [id number] ####[facility] ([facility])[address] [place] [address] COMPREHENSIVE METABOLIC PANE Galen 05-12-2025 Albumin [Mass/Vol] 3.9 g/dL Normal 3.5-5.7 [facility] Comment on above: Performed By: #### L [id number] ####[facility] ([facility])[address] [place] [address] ALP [Catalytic activity/Vol] 52 U/L Normal 34-104 [facility] Comment on above: Performed By: #### L [id number] ####[facility] ([facility])[address] [place] [address] ALT [Catalytic activity/Vol] 12 U/L Normal 7-52 [facility] Comment on above: Performed By: #### L [id number] ####[facility] ([facility]AKER)[address] [place] [address] Anion gap [Moles/Vol] 11 mmol/L Normal 7-20 [facility] Comment on above: Performed By: #### L [id number] ####[facility] ([facility])[address] [place] [address] AST [Catalytic activity/Vol] 22 U/L Normal 13-39 [facility] Comment on above: Performed By: #### L [id number] ####[facility] ([facility])[address] [place] [address] Bilirubin [Mass/Vol] 0.7 mg/dL Normal 0.3-1.0 [facility] Comment on above: Performed By: #### L [id number] ####[facility] ([facility])[address] [place] [address] Calcium [Mass/Vol] 8.6 mg/dL Normal 8.6-10.3 [facility] Comment on above: Performed By: #### L [id number] ####[facility] ([facility])[address] [place] [address] Chloride [Moles/Vol] 105 mmol/L Normal 98-107 [facility] Comment on above: Performed By: #### L [id number] ####[facility] ([facility])[address] [place] [address] CO2 [Moles/Vol] 25 mmol/L Normal 21-31 [facility] Comment on above: Performed By: #### L [id number] ####[facility] ([facility])[address] [place] [address] Creatinine [Mass/Vol] 0.82 mg/dL Normal 0.70-1.30 [facility] Comment on above: Performed By: #### L [id number] ####[facility] ([facility])[address] [place] [address] GLOMERULAR FILTRATION RATE ML/MIN/1.73 SQ M.PREDICTED 91.0 mL/min/1.73m*2 Normal >60.0 [facility] Comment on above: Result Comment: The [facility]???s estimated glomerular filtration rate (eGFR) will no longer include consideration of race in its calculation. The National Kidney Foundation???s eGFR Task Force developed new recommendations for the estimation of the glomerular filtration rate in the [place] They recommend immediate implementation of the new equation refit without the race variable in all laboratories because the calculation does not include race. In addition to not including race in the calculation and reporting, it included diversity in its development, and has acceptable performance characteristics and potential consequences that do not disproportionately affect any one group of individuals. Performed By: #### L [id number] ####[facility] ([facility])[address] [place] [address] Glucose [Mass/Vol] 126 mg/dL High 70-100 [facility] Comment on above: Performed By: #### L [id number] ####[facility] ([facility])[address] [place] [address] Potassium [Moles/Vol] 4.3 mmol/L Normal 3.5-5.1 [facility] Comment on above: Performed By: #### L [id number] ####[facility] ([facility])[address] [place] [address] Protein [Mass/Vol] 6.4 g/dL Normal 6.0-8.3 [facility] Comment on above: Performed By: #### L [id number] ####[facility] ([facility])[address] [place] [address] Sodium [Moles/Vol] 137 mmol/L Normal 136-145 [facility] Comment on above: Performed By: #### L [id number] ####[facility] ([facility])[address] [place] [address] Urea nitrogen [Mass/Vol] 12 mg/dL Normal 7-25 [facility] Comment on above: Performed By: #### L [id number] ####[facility] ([facility])[address] [place] [address] UREA NITROGEN/CREATININ E (MASS RATIO) IN SER/PLAS 14.6 Normal [facility] Comment on above: Performed By: #### L [id number] ####[facility] ([facility])[address] [place] [address] CT ABDOMEN PELVIS W IV CONTR Kala 05-12-2025 CT ABDOMEN PELVIS W IV CONTRAST Normal [facility] Comment on above: Order Comment: And o ral contrast please EDPROVon 05-12-2025 EDPROV Normal [facility] HPon 05-12-2025 HP Normal [facility] LACTIC ACID WITH 4 HOUR REFL EXon 05-12-2025 LACTATE (MMOL/L) IN SER/PLAS 1.0 mmol/L Normal 0.5-2.2 [facility] Comment on above: Performed By: #### L [id number] ####[facility] ([facility])[address] [place] [address] MAGNESIUMon 05-12-2025 Magnesium [Mass/Vol] 1.9 mg/dL Normal 1.9-2.7 [facility] Comment on above: Performed By: #### L [id number] ####[facility] ([facility])[address] [place] [address] MANUAL DIFFERENTIALon 2024 BASOPHILS (10*3/UL) IN BLOOD BY CALCULATION 0.04 10*3/uL Normal 0.00-0.20 [facility] Comment on above: Performed By: #### L [id number] ####[facility] ([facility])[address] [place] [address] BASOPHILS/100 LEUKOCYTES IN BLOOD BY AUTOMATED COUNT 0.2 % Normal 0.0-1.0 [facility] Comment on above: Performed By: #### L [id number] ####[facility] ([facility])[address] [facility] [address] EOSINOPHILS (10*3/UL) IN BLOOD BY CALCULATION 0.00 10*3/uL Normal 0.00-0.50 [facility] Comment on above: Performed By: #### L [id number] ####[facility] ([facility])[address] [facility] [address] EOSINOPHILS/100 LEUKOCYTES IN BLOOD BY AUTOMATED COUNT 0.0 % Normal 0.0-6.0 [facility] Comment on above: Performed By: #### L [id number] ####[facility] (BEAKER)[address] [place] [address] IMMATURE GRANULOCYTES (10*3/UL) IN BLOOD BY CALCULATION 0.10 10*3/uL Normal 0.00-0.20 [facility] Comment on above: Performed By: #### L [id number] ####[facility] ([facility])[address] [place] [address] IMMATURE GRANULOCYTES/100 LEUKOCYTES IN BLOOD BY AUTOMATED COUNT 0.5 % Normal 0.0-1.0 [facility] Comment on above: Performed By: #### L [id number] ####[facility] ([facility])[address] [place] [address] LYMPHOCYTES (10*3/UL) IN BLOOD BY CALCULATION 2.12 10*3/uL Normal 1.20-4.00 [facility] Comment on above: Performed By: #### L [id number] ####[facility] ([facility])[address] [place] [address] LYMPHOCYTES/100 LEUKOCYTES IN BLOOD BY AUTOMATED COUNT 11.0 % Low 20.0-45.0 [facility] Comment on above: Performed By: #### L [id number] ####[facility] ([facility])[address] [place], [place] [address] MONOCYTES (10*3/UL) IN BLOOD BY CALCUATION 1.66 10*3/uL High 0.10-1.00 [facility] Comment on above: Performed By: #### L [id number] ####[facility] ([facility]AK[facility])[address] [place] [address] MONOCYTES/100 LEUKOCYTES IN BLOOD BY AUTOMATED COUNT 8.6 % Normal 5.0-12.0 [facility] Comment on above: Performed By: #### L [id number] ####[facility] ([facility])[address] [place] [address] NEUTROPHILS (10*3/UL) IN BLOOD BY CALCULATION 15.4 10*3/uL High 1.6-7.6 [facility] Comment on above: Performed By: #### L [id number] ####[facility] ([facility])[address] [place] [address] NEUTROPHILS/100 LEUKOCYTES IN BLOOD BY AUTOMATED COUNT 79.7 % High 40.0-72.0 [facility] Comment on above: Performed By: #### L [id number] ####[facility] ([facility])[address] [place] [address] PHOSPHORUSon 05-12-2025 Magnesium [Mass/Vol] 2.9 mg/dL Normal 2.5-5.0 [facility] Comment on above: Performed By: #### L [id number] ####[facility] ([facility])[address] [place] [address] TYPE AND SCREENon 05-12-2025 AB SCREEN Negative Normal [facility] Comment on above: Performed By: #### L [id number] ####[facility], ABO group Nom (Bld) O Normal [facility] Comment on above: Performed By: #### L [id number] ####[facility], RH TYPE IN BLOOD Positive Normal [facility] Comment on above: Performed By: #### L [id number] ####[facility], Ambulatory Visit Summaryon 0 04-23-2025 Ambulatory Visit Summary Ambulatory Visit Summary DARRELL NELSON :1950 Visit Date:04/23/2025 Ambulatory Visit Instructions Your Diagnosis Elevated PSA Kidney stones BPH with urinary obstruction Epididymitis Inguinal hernia Tests Performed XR Abdomen 1 View -- Results Pending -- Please visit your patient portal for your results or contact your primary care physician. Your Care Team Attending Physician - KARLEE GA, Rock Pollock Primary Care Physician - ABIGAIL SANCHEZ MD This Is Your Medications List Contact prescribing physician if questions or concerns Non-Formulary Medication (Iron) losartan (losartan 25 mg Tab) multivitamin with [...] bilateral inguinal hernias, Sinus Surgery. Discharge Vitals Height 177 cm Height 70 in What to do next Scheduled Follow-Up Appointments Monday2025 8:15 AM EST With: Rock LUJAN MD Where: [facility] [address], [address] [place] [address]- You Need to Schedule the Following Appointments Follow Up with Rock LUJAN MD, URL When: Where: [address] [facility] [address] [place] [address]- Medications What How Much When Instructions Unchanged losartan (losartan 25 mg Tab) 90 EA, TAKE 1 TABLET BY MOUTH DAILY Contact prescribing physician if questions or concerns Unchanged multivitamin with minerals (Daily Multiple for Men 50+ oral tablet) By Mouth Every day Contact prescribing physician if questions or concerns Unchanged Non-Formulary Medication (Iron) 65 Milligram Contact prescribing physician if questions or concerns Unchanged psyllium (Metamucil) By Mouth 2 times a day Contact prescribing physician if questions or concerns Unchanged tamsulosin (tamsulosin 0.4 mg Cap) 1 Capsules By Mouth 2 times a day Contact prescribing physician if questions or concerns Allergies No Known Allergies Problems Ongoing - Any problem that you are currently receiving treatment for. BMI 27.0-27.9,adult BPH with urinary obstruction Degenerative disc disease, cervical Elevated PSA Epididymitis Gross hematuria History of kidney stones HTN (hypertension) Inguinal hernia Iron deficiency anemia Kidney stones Nocturia Seasonal [...] age, the risks that screening can cause ar (more content not included)... Normal [facility] Urology Office/Clinic Noteon 04-23-2025 Urology Office/Clinic Note Urology Office/Clinic Note Chief Complaint 6 month with PSA HPI Staff 6 mo with PSA d/t elevated PSA. PSA: 04/16/25 - 9.1 & 18.4% *Flomax 0.4mg bid IPSS 5 Pt. denies having incontinence Pt. denies having pain with urination Pt. denies having gross hematuria Pt. denies having abd pain Pt. denies having flank pain History of Present Illness Tests reviewed: reviewed [...] See HPI. Physical Exam Vitals & Measurements HT: 177 cm HT: 70 in General Appearance: alert, no distress, well nourished, well developed male. Possible L inguinal hernia. Assessment/Plan 74 yo M with elevated PSA and BPH here for close f/up due to rising PSA. Pt shares that he has an abnormal spot on his chest that has been present for 2 years. Strongly encouraged pt to call and schedule an appt with dermatology. Portions of this record may have been created with voice recognition artificial intelligence software, specifically [employer] and or [employer]. Substitutions may have occurred due to the inherent limitations of voice recognition and artificial intelligence software. 1. Elevated PSA (R97.20: Elevated prostate specific antigen [PSA]) PSA 12/11/19 - 7.7 & 15.2% 06/02/20 - 9.6 & 15.9% 10/12/20 - 8.1 & 17.3% 03/17/21 - 8.5 & 16.1% 10/19/21 - 9.1 & 17.5% 04/20/22 - 6.5 & 18.5% 02/08/23 - 7.6 & 19.7% 08/16/23 - 9.3 & 15.4% 03/12/24 - 7.7 & 21.0% 10/09/24 - 9.0 & 21.7% 04/16/25 - 9.1 & 18.4% HUGO 10/16/24 ~40g, no nodules. Minimal rise in PSA since prior level. No further f/up warranted at this point. Will cont to closely monitor PSA over time. He understands we will proceed with an MRI if PSA would continue to rise. -PSAFT in 6 mos 2. Kidney stones (N20.0: Calculus of kidney) Hx of ESWL 01/2016. Has required stent placement. No recent imaging on file [latest CT 2016]. Believes he had a stone within the last 1-2 years. Will order KUB to be done prior to next visit. 3. BPH with urinary obstruction (N40.1: Benign prostatic hyperplasia with lower urinary tract symptoms) UA today negative for blood or infection. IPSS 5 (4) Taking Flomax 0.4mg bid. No urinary concerns. -Cont symptomatic monitoring 4. Epididymitis (N45.1: Epididymitis) Left epididymis nontender to palpation on exam 08/23/23. Pain resolved since treatment with doxycycline at prior OV. No concerns currently. -Cont symptomatic monitoring 5. Inguinal hernia (K40.90: Unilateral inguinal hernia, without obstruction or gangrene, not specified as recurrent) Reports L lower abd swelling. Hx of hernia repairs. Possible L inguinal hernia on exam. Encouraged pt to make an appt with general surgery. Overall the patient is happy to hear that his PSA, despite being elevated continues to be in the same range. He had the negative HUGO last visit. He is complaining of some moderate left-sided inguinal discomfort but not really pain. I referred him to general surgery for further evaluation. It is entirely possible he is beginning with the left inguinal hernia again. Perhaps more importantly he relates that he has had a nonhealing abnormality on his left pectoral area on his chest. Advised that he get seen by dermatology soon. This could represent a malignancy. He is aware of this. He states he will make the appointment today. Will see him back in 6 months with repeat PSA. KUB to be ordered prior to that visit as well. Reviewed urinalysis. Follow-up With When Contact Information KARLEE GA, Rock Pollock, URL [address] [address]- Additional Instructions: 6 mos w/ PSAFT and KUB Patient Education Prostate Cancer Screening I, Rianna March, personally scribed for Dr. Lujan on 04/23/2025 09:04:59. . Documentation recorded by the scribeRianna, accurately reflects the services(s) I performed and decisions made by me. Authenticated by Dr. Lujan on 04/23/2025 09:05:56. Problem List/Past Medical History Ongoing BMI 27.0-27.9,adult BPH with (more content not included)... Normal [facility] Comment on above: Result Comment: Elec tronically Signed By: KARLEE GA, Rock Pollock\.br\Date and Time Signed: 04/23/25 09:07 EDT\.br\Electronically Co-Signed By: Rianna March\.br\Date and Time Co-Signed: 04/23/25 09:05 EDT Orders Onlyon 02-12-2025 Orders Only [facility] 36on 02-04-2025 36 Detailed voicemail l eft for patient. Melanie Vickers MA [facility] [address] Plasencia: Ariana I put in a request for right and left heart catheterization on this patient per CT surgery request. Please inform the patient to expect a call from the Glucose And Syrup Weigher to schedule it [facility] on 02-03-2025 36 Patient was seen by CT surgery for possible mitral valve repair. CT surgery team reached out to me requesting right and left heart catheterization before proceeding with surgery. Will go ahead and schedule it and inform the patient [facility] 36on 01-31-2025 36 John Plasencia MD Geovanna dimitris Mayo MA BMP looks good after increasing losartan dose. Left message for patient advising him of his blood test results. [facility] Abstracton 01-31-2025 Abstract [facility] Consulton 01-30-2025 Consult [facility] 01-22-2025 36 01/22/25 2nd attempt to reach patient to schedule no answer lmom to cb SR [facility] 36on 01-21-2025 36 Call placed to patie nt to schedule appointment no answer left message to call back. [facility] 36 [facility] Telephoneon 01-21-2025 Telephone Normal [facility] ANESon 12-20-2024 ANES Normal [facility] HPon 12-20-2024 HP Normal [facility] NURSNOTEon 12-20-2024 NURSNOTE Normal [facility] Telephoneon 12-13-2024 Telephone Normal [facility] 36on 11-15-2024 36 Regarding lab result s from 11/13/2024: MD Eneida Simeon MA Lipids look very good. Continue current diet and exercise. LM on patient's VM. Normal [facility] Ambulatory Visit Summaryon 0 10-16-2024 Ambulatory Visit [...] GA, Rock Pollock Where: [facility] [address], [address] [place] [address]- You Need to Schedule the Following Appointments Follow Up with KARLEE GA, ASHLEY Hogan When: Where: [address] [facility] [address] [place] [address]- Medications What How Much When Instructions Unchanged [...] that yo (more content not included)... Normal [facility] Urology Office/Clinic Noteon 10-16-2024 Urology Office/Clinic [...] with voice recognition artificial intelligence software, specifically [employer], [employer] and or [employer]. Substitutions may have occurred due to the [...] Information KARLEE GA, Rock Pollock, URL [address] [place] [address]- Additional Instructions: 6 mos w/ PSA free [...] (02/11/2016), Cys (more content not included)... Normal [facility] Comment on above: Result Comment: Elec tronically Signed By: Rock LUJAN MD\.br\Date and Time Signed: 10/16/24 08:34 EST\.br\Electronically Co-Signed By: Rianna March\.br\Date and Time Co-Signed: 10/16/24 08:31 EST PSA, FREE AND TOTAL RATIOon 02-09-2023 % Free PSA 19.7 % Normal [facility] Comment on above: Result Comment: [...] men. Performed By: #### P SAFREE #### [facility] [address] [place] [address] Dr. Vaishali Dorsey Prostate specific Ag [Mass/Vol] 7.6 ng/mL Critically high 0.0-4.0 [facility] Comment on above: Result Comment: Dakota PEGUERO methodology. . According to the [employer], Serum PSA should decrease and [...] disease. Performed By: #### P SAFREE #### [facility] [address] [address] [address] Vaishali Dorsey PSA, Free 1.50 ng/mL Normal N/A [facility] Comment on above: Result Comment: Roch e ECLIA methodology. Performed By: #### P SAFREE #### [facility] [address] [address] [address] Vaishali Dorsey CBC AUTO DIFFon 11-03-2022 BASO # 0.1 103/ul Normal 0.0-0.1 [facility] Comment on above: Performed By: #### C BC #### [facility] [address] [address] [address] Vaishali Dorsey Basophils/100 WBC (Bld) 0.6 % Normal 0.2-2.0 [facility] Comment on above: Performed By: #### C BC #### [facility] [address] [address] [address] Vaishali Dorsey EO # 0.5 103/ul Normal 0.0-0.7 [facility] Comment on above: Performed By: #### C BC #### [facility] [address] [place] [address] Dr. Vaishali Dorsey Eosinophils/100 WBC (Bld) 4.4 % Normal 0.9-7.0 [facility] Comment on above: Performed By: #### C BC #### [facility] [address] [place] [address] Dr. Vaishali Dorsey Erythrocyte distribution width (RBC) [Ratio] 17.2 % Critically high 11.0-15.0 [facility] Comment on above: Performed By: #### C BC #### [facility] [address] [place] [address] Dr. Vaishali Dorsey Hematocrit (Bld) [Volume fraction] 39.6 % Critically low 42.0-54.0 [facility] Comment on above: Performed By: #### C BC #### [facility] [address] [place] [address] Dr. Vaishali Dorsey Hemoglobin (Bld) [Mass/Vol] 11.8 g/dL Critically low 14.0-18.0 [facility] Comment on above: Performed By: #### C BC #### [facility] [address] [address] [address] Vaishali Dorsey IG # 0.03 10e3/ul Normal 0.00-0.03 [facility] Comment on above: Performed By: #### C BC #### [facility] [address] [place] [address] Dr. Vaishali Dorsey IG % 0.3 % Normal 0.0-0.5 [facility] Comment on above: Performed By: #### C BC #### [facility] [address] [place] [address] Dr. Vaishali Dorsey LYMPH # 4.1 103/ul Critically high 1.2-3.8 [facility] Comment on above: Performed By: #### C BC #### [facility] [address] [place] [address] Dr. Vaishali Dorsey Lymphocytes/100 WBC (Bld) 34.2 % Normal 20.5-60.0 [facility] Comment on above: Performed By: #### C BC #### [facility] [address] [place] [address] Dr. Vaishali Dorsey MANUAL DIFF REQ NO Normal [facility] Comment on above: Performed By: #### C BC #### [facility] [address] [place] [address] Dr. Vaishali Dorsey MCH (RBC) [Entitic mass] 24.5 pg Critically low 25.9-34.0 [facility] Comment on above: Performed By: #### C BC #### [facility] [address] [place] [address] Dr. Vaishali Dorsey MCHC (RBC) [Mass/Vol] 29.8 g/dL Critically low 29.9-35.2 [facility] Comment on above: Performed By: #### C BC #### [facility] [address] [place] [address] Dr. Vaishali Dorsey MCV (RBC) [Entitic vol] 82.2 fL Normal 80.0-94.0 [facility] Comment on above: Performed By: #### C BC #### [facility] [address] [place] [address] Dr. Vaishali Dorsey MONO # 1.1 103/ul Critically high 0.3-0.8 [facility] Comment on above: Performed By: #### C BC #### [facility] [address] [place] [address] Dr. Vaishali Dorsey Monocytes/100 WBC (Bld) 9.1 % Normal 1.7-12.0 [facility] Comment on above: Performed By: #### C BC #### [facility] [address] [place] [address] Dr. Vaishali Dorsey NEUT # 6.1 103/ul Normal 1.4-6.5 [facility] Comment on above: Performed By: #### C BC #### [facility] [address] [place] [address] Dr. Vaishali Dorsey Neutrophils/100 WBC (Bld) 51.4 % Normal 43.0-75.0 [facility] Comment on above: Performed By: #### C BC #### [facility] [address] [place] [address] Dr. Vaishali Dorsey Platelet mean volume (Bld) [Entitic vol] 10.3 fL Normal 9.5-13.5 [facility] Comment on above: Performed By: #### C BC #### [facility] [address] [place] [address] Dr. Vaishali Dorsey PLT 231 103/ul Normal 150-450 [facility] Comment on above: Performed By: #### C BC #### [facility] [address] [place] [address] Dr. Vaishali Dorsey RBC 4.82 106/ul Normal 4.70-6.10 [facility] Comment on above: Performed By: #### C BC #### [facility] [address] [place] [address] Dr. Vaishali Dorsey WBC 11.9 103/ul Critically high 4.0-11.0 [facility] Comment on above: Performed By: #### C BC #### [facility] [address] [place] [address] ABD/PELV W CONon [...] OLIVER CHAVEZ Date: 2022-11-03 13:53 Normal [facility] PROF CHEM 8 (BAS METB)on Anion gap [Moles/Vol] 10.3 mmol/L Normal [facility] Comment on above: Performed By: #### B MP ####[facility] [address] [address]Dr. Vaishali Dorsey Calcium [Mass/Vol] 9.2 mg/dL Normal 8.5-10.1 [facility] Comment on above: Performed By: #### B MP ####[facility] [address] [phone]. Vaishali Dorsey Chloride [Moles/Vol] 105 mmol/L Normal 98-107 [facility] Comment on above: Performed By: #### B MP ####[facility] [address] [phone]. Vaishali Dorsey CO2 [Moles/Vol] 32.4 mmol/L Critically high 21.0-32.0 [facility] Comment on above: Performed By: #### B MP ####[facility] [address] [address]Dr. Vaishali Dorsey Creatinine [Mass/Vol] 1.00 mg/dL Normal 0.70-1.30 [facility] Comment on above: Performed By: #### B MP ####[facility] [address] [address]Dr. Vaishali Dorsey EGFR-AF TANZANIAN >60 Normal >=60 [facility] Comment on above: Performed By: #### B MP ####[facility] [address] [place], [place] [address]Dr. Vaishali Dorsey EGFR-NON AF TANZANIAN >60 Normal >=60 [facility] Comment on above: Performed By: #### B MP ####[facility] [address] [place], [place] [address]Dr. Vaishali Dorsey Glucose [Mass/Vol] 101 mg/dL Normal 74-106 [facility] Comment on above: Performed By: #### B MP ####[facility] [address] [place], [place] [address]Dr. Vaishali Dorsey Potassium [Moles/Vol] 5.7 mmol/L Critically high 3.5-5.1 [facility] Comment on above: Performed By: #### B MP ####[facility] [address] [place], [place] [address]Dr. Vaishali Dorsey Sodium [Moles/Vol] 142 mmol/L Normal 136-145 [facility] Comment on above: Performed By: #### B MP ####[facility] [address] [place], [place] [address]Dr. Vaishali Dorsey Urea nitrogen [Mass/Vol] 13.0 mg/dL Normal 7.0-18.0 [facility] Comment on above: Performed By: #### B MP ####[facility] [address] [place], [place] [address]Dr. Vaishali Willian Urea nitrogen/Creatinin e [Mass ratio] 13.0 mg/mg Normal [facility] Comment on above: Performed By: #### B MP ####[facility] [address] [place], [place] [address]JmDr. Vaishali Dorsey PROTIMEon 11-03-2022 INR Coag (PPP) [Relative time] 0.96 {INR} Normal [facility] Comment on above: Performed By: #### P T #### [facility] [address] [address] [address] Vaishali Dorsey INR GUIDELINES SEE BELOW Normal [facility] Comment on above: Result Comment: JOSEF RED INR: 2.0 - 3.0 CONDITIONS NOT LISTED BELOW 2.5 - 3.5 FOR PROSTHETIC HEART VALVE REPLACEMENT 2.5 - 3.5 RECURRENT THROMBOSIS Performed By: #### P T #### [facility] [address] [address] [address] Vaishali Dorsey PT Coag (PPP) [Time] 10.2 s Normal 9.0-11.6 [facility] Comment on above: Performed By: #### P T #### [facility] [address] [address] [address] Vaishali Dorsey Covid-19 PCR (CVDTB)on 08-03 SARS-CoV-2 (COVID-19) RNA NICK+probe Ql (Unsp spec) Not detected Normal NOT DETECTED [facility] Comment on above: Result Comment: When [...] for this test is supported by the [place] [employer] and [employer]'s declaration that [...] used). Performed By: #### C VDTBH #### [facility] [address] [address] [address] Vaishali Dorsey CBC AUTO DIFFon 06-28-2022 BASO # 0.1 103/ul Normal 0.0-0.1 [facility] Comment on above: Performed By: #### C BC #### [facility] [address] [address] [address] Vaishali Dorsey Basophils/100 WBC (Bld) 0.6 % Normal 0.2-2.0 [facility] Comment on above: Performed By: #### C BC #### [facility] [address] [place] [address] Dr. Vaishali Dorsey EO # 0.3 103/ul Normal 0.0-0.7 [facility] Comment on above: Performed By: #### C BC #### [facility] [address] [place] [address] Dr. Vaishali Dorsey Eosinophils/100 WBC (Bld) 2.0 % Normal 0.9-7.0 [facility] Comment on above: Performed By: #### C BC #### [facility] [address] [place] [address] Dr. Vaishali Dorsey Erythrocyte distribution width (RBC) [Ratio] 16.4 % Critically high 11.0-15.0 [facility] Comment on above: Performed By: #### C BC #### [facility] [address] [place] [address] Dr. Vaishali Dorsey Hematocrit (Bld) [Volume fraction] 38.0 % Critically low 42.0-54.0 [facility] Comment on above: Performed By: #### C BC #### [facility] [address] [place] [address] Dr. Vaishali Dorsey Hemoglobin (Bld) [Mass/Vol] 11.8 g/dL Critically low 14.0-18.0 [facility] Comment on above: Performed By: #### C BC #### [facility] [address] [place] [address] Dr. Vaishali Dorsey IG # 0.04 10e3/ul Critically high 0.00-0.03 [facility] Comment on above: Performed By: #### C BC #### [facility] [address] [place] [address] Dr. Vaishali Dorsey IG % 0.3 % Normal 0.0-0.5 [facility] Comment on above: Performed By: #### C BC #### [facility] [address] [place] [address] Dr. Vaishali Dorsey LYMPH # 3.6 103/ul Normal 1.2-3.8 [facility] Comment on above: Performed By: #### C BC #### [facility] [address] [place] [address] Dr. Vaishali Dorsey Lymphocytes/100 WBC (Bld) 28.4 % Normal 20.5-60.0 [facility] Comment on above: Performed By: #### C BC #### [facility] [address] [place] [address] Dr. Vaishali Dorsey MANUAL DIFF REQ NO Normal [facility] Comment on above: Performed By: #### C BC #### [facility] [address] [place] [address] Dr. Vaishali Dorsey MCH (RBC) [Entitic mass] 25.2 pg Critically low 25.9-34.0 [facility] Comment on above: Performed By: #### C BC #### [facility] [address] [place] [address] Dr. Vaishali Dorsey MCHC (RBC) [Mass/Vol] 31.1 g/dL Normal 29.9-35.2 [facility] Comment on above: Performed By: #### C BC #### [facility] [address] [place] [address] Dr. Vaishali Dorsey MCV (RBC) [Entitic vol] 81.0 fL Normal 80.0-94.0 [facility] Comment on above: Performed By: #### C BC #### [facility] [address] [place] [address] Dr. Vaishali Dorsey MONO # 1.1 103/ul Critically high 0.3-0.8 [facility] Comment on above: Performed By: #### C BC #### [facility] [address] [place] [address] Dr. Vaishali Dorsey Monocytes/100 WBC (Bld) 8.3 % Normal 1.7-12.0 [facility] Comment on above: Performed By: #### C BC #### [facility] [address] [place] [address] Dr. Vaishali Dorsey NEUT # 7.6 103/ul Critically high 1.4-6.5 [facility] Comment on above: Performed By: #### C BC #### [facility] [address] [place] [address] Dr. Vaishali Dorsey Neutrophils/100 WBC (Bld) 60.4 % Normal 43.0-75.0 [facility] Comment on above: Performed By: #### C BC #### [facility] [address] [place] [address] Dr. Vaishali Dorsey Platelet mean volume (Bld) [Entitic vol] 10.7 fL Normal 9.5-13.5 [facility] Comment on above: Performed By: #### C BC #### [facility] [address] [place] [address] Dr. Vaishali Dorsey PLT 226 103/ul Normal 150-450 [facility] Comment on above: Performed By: #### C BC #### [facility] [address] [place] [address] Dr. Vaishali Dorsey RBC 4.69 106/ul Critically low 4.70-6.10 [facility] Comment on above: Performed By: #### C BC #### [facility] [address] [place] [address] Dr. Vaishali Dorsey WBC 12.6 103/ul Critically high 4.0-11.0 [facility] Comment on above: Performed By: #### C BC #### [facility] [address] [place] [address] Dr. Vaishali Dorsey FERRITINon 06-28-2022 Ferritin [Mass/Vol] 8.0 ng/mL Critically low 26.0-388.0 [facility] Comment on above: Performed By: #### F ERR #### [facility] [address] [place] [address] Dr. Vaishali Dorsey PROF 14(COMP METB)on 022 Albumin [Mass/Vol] 3.8 g/dL Normal 3.4-5.0 [facility] Comment on above: Performed By: #### C MP #### [facility] [address] [address] [address] Vaishali Dorsey Albumin/Globulin [Mass ratio] 1.1 {ratio} Normal [facility] Comment on above: Performed By: #### C MP #### [facility] [address] [address] [address] Vaishali Dorsey ALP [Catalytic activity/Vol] 66 U/L Normal 46-116 [facility] Comment on above: Performed By: #### C MP #### [facility] [address] [place] [address] Dr. Vaishali Dorsey ALT [Catalytic activity/Vol] 22 U/L Normal 16-63 [facility] Comment on above: Performed By: #### C MP #### [facility] [address] [address] [address] Vaishali Dorsey Anion gap [Moles/Vol] 10.4 mmol/L Normal [facility] Comment on above: Performed By: #### C MP #### [facility] [address] [place] [address] Dr. Vaishali Dorsey AST [Catalytic activity/Vol] 19 U/L Normal 15-37 [facility] Comment on above: Performed By: #### C MP #### [facility] [address] [address] [address] Vaishali Dorsey Bilirubin [Mass/Vol] 0.2 mg/dL Normal 0.2-1.0 [facility] Comment on above: Performed By: #### C MP #### [facility] [address] [place] [address] Dr. Vaishali Dorsey Calcium [Mass/Vol] 9.2 mg/dL Normal 8.5-10.1 [facility] Comment on above: Performed By: #### C MP #### [facility] [address] [place] [address] Dr. Vaishali Dorsey Chloride [Moles/Vol] 107 mmol/L Normal 98-107 [facility] Comment on above: Performed By: #### C MP #### [facility] [address] [place] [address] Dr. Vaishali Dorsey CO2 [Moles/Vol] 31.2 mmol/L Normal 21.0-32.0 [facility] Comment on above: Performed By: #### C MP #### [facility] [address] [place] [address] Dr. Vaishali Dorsey Creatinine [Mass/Vol] 1.02 mg/dL Normal 0.70-1.30 [facility] Comment on above: Performed By: #### C MP #### [facility] [address] [place] [address] Dr. Vaishali Dorsey EGFR-AF TANZANIAN >60 Normal >=60 [facility] Comment on above: Performed By: #### C MP #### [facility] [address] [place] [address] Dr. Vaishali Dorsey EGFR-NON AF TANZANIAN >60 Normal >=60 [facility] Comment on above: Performed By: #### C MP #### [facility] [address] [place] [address] Dr. Vaishali Dorsey Globulin (S) [Mass/Vol] 3.6 g/dL Normal [facility] Comment on above: Performed By: #### C MP #### [facility] [address] [place] [address] Dr. Vaishali Dorsey Glucose [Mass/Vol] 101 mg/dL Normal 74-106 [facility] Comment on above: Performed By: #### C MP #### [facility] [address] [place] [address] Dr. Vaishali Dorsey Potassium [Moles/Vol] 4.6 mmol/L Normal 3.5-5.1 [facility] Comment on above: Performed By: #### C MP #### [facility] [address] [place] [address] Dr. Vaishali Dorsey Protein [Mass/Vol] 7.4 g/dL Normal 6.4-8.2 [facility] Comment on above: Performed By: #### C MP #### [facility] [address] [place], [place] [address] Dr. Vaishali Dorsey Sodium [Moles/Vol] 144 mmol/L Normal 136-145 [facility] Comment on above: Performed By: #### C MP #### [facility] [address] [place], [place] [address] Dr. Vaishali Dorsey Urea nitrogen [Mass/Vol] 14.0 mg/dL Normal 7.0-18.0 [facility] Comment on above: Performed By: #### C MP #### [facility] [id number] Vaishali Dorsey Urea nitrogen/Creatinin e [Mass ratio] 13.7 mg/mg Normal [facility] Comment on above: Performed By: #### C MP #### [facility] [address] [address] [address] Vaishali Dorsey PSA, FREE AND TOTAL RATIOon 04-21-2022 % Free PSA 18.9 % Normal [facility] Comment on above: Result Comment: [...] men. Performed By: #### P SAFREE #### [facility] [address] [address] [address] Vaishali Dorsey Prostate specific Ag [Mass/Vol] 6.5 ng/mL Critically high 0.0-4.0 [facility] Comment on above: Result Comment: Dakota trejo ECLIA methodology. . According to the [employer], Serum PSA should decrease and [...] disease. Performed By: #### P SAFREE #### [facility] [address] [address] [address] Vaishali Dorsey PSA, Free 1.23 ng/mL Normal N/A [facility] Comment on above: Result Comment: Dakota trejo ECLIA methodology. Performed By: #### P SAFREE #### [facility] [address] [address] [address] 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 This test has not been FDA [...] is terminated or revoked sooner. PERFORMED BY: [place] [address] PATHOLOGIST INTERNAL [employer]ER KAMERON MARTIN M.D. Performed By: #### C OVID 19 [facility] #### [address] Basic Metabolic Panlon 10-22 Anion gap 12 mmol/L Normal 9-18 [facility] Comment on above: Performed By: #### I CA, CBCDIF, VITD, PTHI, CMP, URIC ####[place] [address] [phone] Calcium 8.2 mg/dL Low 8.5-10.2 [facility] Comment on above: Performed By: #### I CA, CBCDIF, VITD, PTHI, CMP, URIC ####[place] [address] [address] [phone] Chloride 102 mmol/L Normal 97-105 [facility] Comment on above: Performed By: #### I CA, CBCDIF, VITD, PTHI, CMP, URIC ####[place] [address] [address] [phone] CO2 26 mmol/L Normal 22-30 [facility] Comment on above: Performed By: #### I CA, CBCDIF, VITD, PTHI, CMP, URIC ####[place] [address] [address] [phone] Creatinine 0.98 mg/dL Normal 0.73-1.22 [facility] Comment on above: Performed By: #### I CA, CBCDIF, VITD, PTHI, CMP, URIC ####[place] [address] [address] [phone] eGFR (non-black) mL/min/{1.73_m2} Normal [facility] Comment on above: Result Comment: eGFR [...] CA, CBCDIF, VITD, PTHI, CMP, URIC ####[address] [phone] Glucose mass conc 85 mg/dL Normal 74-99 [facility] Comment on above: Result Comment: The [place] [employer] (ADA) provides guidance for cutoff [...] Standards of Medical Care in Diabetes 2016, [place] [employer]. Diabetes Care. 2016.39(Suppl 1). Performed By: #### I CA, CBCDIF, VITD, PTHI, CMP, URIC ####[address] [phone] Potassium molar conc 3.5 mmol/L Low 3.7-5.1 [facility] Comment on above: Performed By: #### I CA, CBCDIF, VITD, PTHI, CMP, URIC ####[address] [phone] Sodium 140 mmol/L Normal 136-144 [facility] Comment on above: Performed By: #### I CA, CBCDIF, VITD, PTHI, CMP, URIC ####[place] [address] [place], [place] [phone] Urea nitrogen 5 mg/dL Low 9-24 [facility] Comment on above: Performed By: #### I CA, CBCDIF, VITD, PTHI, CMP, URIC ####[address], [place] [phone] CBCon 10-22-2017 Erythrocyte distribution width Auto Ratio (RBC) 13.1 % Normal 11.5-15.0 [facility] Comment on above: Performed By: #### I CA, CBCDIF, VITD, PTHI, CMP, URIC ####[place] [address], [place] [phone] Erythrocytes (RBC) 10*6/uL Normal <0.01 [facility] Comment on above: Performed By: #### I CA, CBCDIF, VITD, PTHI, CMP, URIC ####[place] [address] [address], [place] [phone] Erythrocytes (RBC) 3.32 10*6/uL Low 4.20-6.00 [facility] Comment on above: Performed By: #### I CA, CBCDIF, VITD, PTHI, CMP, URIC ####[place] [address], [place] [phone] Hematocrit (HCT) 29.6 % Low 39.0-51.0 [facility] Comment on above: Performed By: #### I CA, CBCDIF, VITD, PTHI, CMP, URIC ####[place] [address], [place] [phone] Hemoglobin mass conc (Bld) 9.8 g/dL Low 13.0-17.0 [facility] Comment on above: Performed By: #### I CA, CBCDIF, VITD, PTHI, CMP, URIC ####[place] [address] [address] [place] [phone] MCH 29.5 pG Normal 26.0-34.0 [facility] Comment on above: Performed By: #### I CA, CBCDIF, VITD, PTHI, CMP, URIC ####[place] [address], [place] [phone] MCHC mass conc (RBC) 33.1 g/dL Normal 30.5-36.0 [facility] Comment on above: Performed By: #### I CA, CBCDIF, VITD, PTHI, CMP, URIC ####[place] [address] [address], [place] [phone] MCV 89.2 fL Normal 80.0-100.0 [facility] Comment on above: Performed By: #### I CA, CBCDIF, VITD, PTHI, CMP, URIC ####[place] [address] [address], [place] [phone] Platelet mean volume (PMV) 10.5 fL Normal 9.0-12.7 [facility] Comment on above: Performed By: #### I CA, CBCDIF, VITD, PTHI, CMP, URIC ####[place] [address] [place], [place] [phone] Platelets 267 10*3/uL Normal 150-400 [facility] Comment on above: Performed By: #### I CA, CBCDIF, VITD, PTHI, CMP, URIC ####[place] [address] [address], [place] [phone] WBC (Leukocytes) 10.19 10*3/uL Normal 3.70-11.00 [facility] Comment on above: Performed By: #### I CA, CBCDIF, VITD, PTHI, CMP, URIC ####[place] [address] [place], [place] [phone] CNDSon 10-22-2017 CNDS HNO ID: [id number] thor: Feliciano Santanaervice: UrologyAuthor Type: PhysicianType: Discharge SummariesFiled: 10/23/2017 8:54 AMNote Text:DISCHARGE SUMMARYPATIENT NAME: Darrell Nelson ADMISSION DATE: 10/21/2017MRN: [id number] DISCHARGE DATE: 10/22/2017Attending Physician: Feliciano Vega for Hospitalization: HematuriaActive Problems: LeukocytosisResolved Problems: * No resolved hospital problems. *Operations During Hospitalization: NoneProcedures During Hospitalization: cystoscopy, right [facility]id eHospital Course: Patient was admitted [...] of this patient.SIGNATURE: Tk Abdalla MD PAGER: [phone]: October 22, 2017TIME: 9:32 AMRADHA Johnirector, Surgical Stone Disease, [facility] Urologic InstituteProfessor of Surgery, [facility] CampusPager [phone]/23/2017 Normal Clevelan d [facility] PROGRESSon 10-22-2017 PROGRESS HNO ID: [id number] thor: Tk (Sudeep) NIK Abdallaervice: UrologyAuthor Type: [...] lb 4 oz) SpO2 95% BMI 25.43 kg/d9Bmpgqhtpdui max: Temp (24hrs), Av.1 ?C (98.7 ?F), Min:36.8 ?C (98.3?F), Max:37.2 ?C (99 ?F)Intake/Output 10/21/17 0700 - 10/22/17 0659 10/22/17 0700 - 10/23/17 0659 Intake (ml) 2180 -- Output (ml) 2550 650 Net (ml) -370 -650LABS:BUN (mg/dL)Date Value10/22/2017 501 801 701/08/2018 912 10 Creatinine (mg/dL)Date Value10/22/2017 0.9801 0.9201 0.9001 1.0012 1.05 Recent Labs [id number] 10.19HB 9.8*HCT 29.6*NA 140K 3.5*CHLOR 102CO2 26GLUC 85Glucose, Urine (mg/dL)Date Value10/21/2017 Negative Bilirubin, Urine (no units)Date Value10/21/2017 Negative Ketones, Urine (no units)Date Value10/21/2017 Negative Specific [place], Ur (no units)Date Value10/21/2017 1.010 Hemoglobin/Blood ,Ur ( )Date Value10/21/2017 3+ (A) pH, Urine (no units)Date Value10/21/2017 6.0 Protein, Urine (mg/dL)Date Value10/21/2017 30 (A) Nitrites (no units)Date Value10/21/2017 Negative WBC, Urine (/HPF)Date Value10/21/2017 >25 (A) Color (no units)Date Value10/21/2017 Yellow Clarity (no units)Date Value10/21/2017 Cloudy (A) Assessment/PlanAct [facility] Problems Leukocytosis [D72.829]Mr. Nelson is a [...] 22, 2017 : 7:31 AM PAGER/CONTACT #: [phone] Normal [facility] Basic Metabolic Panlon 10-21 Anion gap 14 mmol/L Normal 9-18 [facility] Comment on above: Performed By: #### I CA, CBCDIF, VITD, PTHI, CMP, URIC ####[facility] [address] [place], [place] [phone] Calcium 8.3 mg/dL Low 8.5-10.2 [facility] Comment on above: Performed By: #### I CA, CBCDIF, VITD, PTHI, CMP, URIC ####[facility] [address] [place], [place] [phone] Chloride 104 mmol/L Normal 97-105 [facility] Comment on above: Performed By: #### I CA, CBCDIF, VITD, PTHI, CMP, URIC ####[facility] [address] [place], [place] [phone] CO2 25 mmol/L Normal 22-30 [facility] Comment on above: Performed By: #### I CA, CBCDIF, VITD, PTHI, CMP, URIC ####[facility] [place], [place] [phone] Creatinine 0.92 mg/dL Normal 0.73-1.22 [facility] Comment on above: Performed By: #### I CA, CBCDIF, VITD, PTHI, CMP, URIC ####[facility] [place], [place] [phone] eGFR (non-black) mL/min/{1.73_m2} Normal [facility] Comment on above: Result Comment: eGFR [...] I CA, CBCDIF, VITD, PTHI, CMP, URIC ####[facility] [place], [place] [phone] Glucose mass conc 79 mg/dL Normal 74-99 [facility] Comment on above: Result Comment: The [place] Diabetes Association (ADA) provides guidance for cutoff [...] Standards of Medical Care in Diabetes 2016, [place] [employer]. Diabetes Care. 2016.39(Suppl 1). Performed By: #### I CA, CBCDIF, VITD, PTHI, CMP, URIC ####[place] [phone] Potassium molar conc 3.7 mmol/L Normal 3.7-5.1 [facility] Comment on above: Performed By: #### I CA, CBCDIF, VITD, PTHI, CMP, URIC ####[address] [place] [phone] Sodium 143 mmol/L Normal 136-144 [facility] Comment on above: Performed By: #### I CA, CBCDIF, VITD, PTHI, CMP, URIC ####[address] [place] [phone] Urea nitrogen 8 mg/dL Low 9-24 [facility] Comment on above: Performed By: #### I CA, CBCDIF, VITD, PTHI, CMP, URIC ####[place] [phone] CBC and Differentialon 10-21 Abs Baso 0.05 k/uL Normal <0.11 [facility] Comment on above: Performed By: #### I CA, CBCDIF, VITD, PTHI, CMP, URIC ####[address] [place] [phone] 0[address]81 k/uL Normal <0.87 [facility] Comment on above: Performed By: #### I CA, CBCDIF, VITD, PTHI, CMP, URIC ####[place] [address] [place] [phone] Abs Neut 6.30 k/uL Normal 1.45-7.50 [facility] Comment on above: Performed By: #### I CA, CBCDIF, VITD, PTHI, CMP, URIC ####[place] [address] [address] [place] [phone] Basophils/100 WBC Auto (Bld) 0.5 % Normal [facility] Comment on above: Performed By: #### I CA, CBCDIF, VITD, PTHI, CMP, URIC ####[place] [address] [place] [phone] DTYPE Auto Diff Normal [facility] Comment on above: Performed By: #### I CA, CBCDIF, VITD, PTHI, CMP, URIC ####[place] [address] [place] [phone] Eosinophils 0.24 10*3/uL Normal <0.46 [facility] Comment on above: Performed By: #### I CA, CBCDIF, VITD, PTHI, CMP, URIC ####[place] [address] [place] [phone] Eosinophils/100 leukocytes 2.3 % Normal [facility] Comment on above: Performed By: #### I CA, CBCDIF, VITD, PTHI, CMP, URIC ####[place] [address] [place] [phone] Erythrocyte distribution width Auto Ratio (RBC) 13.1 % Normal 11.5-15.0 [facility] Comment on above: Performed By: #### I CA, CBCDIF, VITD, PTHI, CMP, URIC ####[place] [address] [place] [phone] Erythrocytes (RBC) 3.34 10*6/uL Low 4.20-6.00 [facility] Comment on above: Performed By: #### I CA, CBCDIF, VITD, PTHI, CMP, URIC ####[place] [address]ClevelAlex[address] [place] [phone] Erythrocytes (RBC) 10*6/uL Normal <0.01 [facility] Comment on above: Performed By: #### I CA, CBCDIF, VITD, PTHI, CMP, URIC ####[facility] [place] [phone] Erythrocytes (RBC) 0.0 /100 WBC Normal 0 [facility] Comment on above: Performed By: #### I CA, CBCDIF, VITD, PTHI, CMP, URIC ####[place] [address] [place] [phone] Hematocrit (HCT) 30.2 % Low 39.0-51.0 [facility] Comment on above: Performed By: #### I CA, CBCDIF, VITD, PTHI, CMP, URIC ####[place] [address] [place] [phone] Hemoglobin mass conc (Bld) 10.2 g/dL Low 13.0-17.0 [facility] Comment on above: Performed By: #### I CA, CBCDIF, VITD, PTHI, CMP, URIC ####[place] [address] [place] [phone] Lymphocytes 3.06 10*3/uL Normal 1.00-4.00 [facility] Comment on above: Performed By: #### I CA, CBCDIF, VITD, PTHI, CMP, URIC ####[place] [address] [place] [phone] Lymphocytes/100 leukocytes 29.3 % Normal [facility] Comment on above: Performed By: #### I CA, CBCDIF, VITD, PTHI, CMP, URIC ####[place] [address] [place] [phone] MCH 30.5 pG Normal 26.0-34.0 [facility] Comment on above: Performed By: #### I CA, CBCDIF, VITD, PTHI, CMP, URIC ####[place] [address]ClevelAlexand[address] [place] [phone] MCHC mass conc (RBC) 33.8 g/dL Normal 30.5-36.0 [facility] Comment on above: Performed By: #### I CA, CBCDIF, VITD, PTHI, CMP, URIC ####[place] [phone]CS[address] [place] [phone] MCV 90.4 fL Normal 80.0-100.0 [facility] Comment on above: Performed By: #### I CA, CBCDIF, VITD, PTHI, CMP, URIC ####[place] [address] [place] [phone] Monocytes/100 leukocytes 7.7 % Normal [facility] Comment on above: Performed By: #### I CA, CBCDIF, VITD, PTHI, CMP, URIC ####[place] [address] [place] [phone] Neutrophils/100 WBC Auto (Bld) 60.2 % Normal [facility] Comment on above: Performed By: #### I CA, CBCDIF, VITD, PTHI, CMP, URIC ####[place] [address] [place] [phone] Platelet mean volume (PMV) 10.7 fL Normal 9.0-12.7 [facility] Comment on above: Performed By: #### I CA, CBCDIF, VITD, PTHI, CMP, URIC ####[place] [address] [place] [phone] Platelets 260 10*3/uL Normal 150-400 [facility] Comment on above: Performed By: #### I CA, CBCDIF, VITD, PTHI, CMP, URIC ####[place] [address] [place] [phone] WBC (Leukocytes) 10.46 10*3/uL Normal 3.70-11.00 [facility] Comment on above: Performed By: #### I CA, CBCDIF, VITD, PTHI, CMP, URIC ####[facility] [place], [place] [phone] Protimeon 10-21-2017 INR Coag RelTime (Bld) 1.0 {INR} Normal 0.9-1.3 [facility] Comment on above: Result Comment: Laisha min K Antagonist (VKA) Therapeutic Range: INR 2 to 3 (Target INR of 2.5)Note: For patients treated with VKA drugs, such as warfarin, the [place] [employer] 2012 Guideline recommends [...] al. Chest 2012, 141:7S-47SNishimgia RA, et al. [facility] 2017, 70: 252-289 Performed By: #### I CA, CBCDIF, VITD, PTHI, CMP, URIC ####[facility] [place], [place] [phone] PT Sec 10.4 sec Normal 9.7-13.0 [facility] Comment on above: Performed By: #### I CA, CBCDIF, VITD, PTHI, CMP, URIC ####[facility] [place], [place] [phone] Type and Screenon 10-21-2017 ABO/RH(D) Positive Normal [facility] Comment on above: Performed By: #### I CA, CBCDIF, VITD, PTHI, CMP, URIC ####[facility] [place], [place] [phone] Antibody Screen Negative Normal [facility] Comment on above: Performed By: #### I CA, CBCDIF, VITD, PTHI, CMP, URIC ####[facility] [address] AveClevelAlexandria [place] [phone] Urinalysison 10-21-2017 Bilirubin, Urine Negative Normal Negative [facility] Comment on above: Performed By: #### I CA, CBCDIF, VITD, PTHI, CMP, URIC ####[place] [phone] Comments SEE COMMENT Normal [facility] Comment on above: Result Comment: Micr oscopic Examination Performed Performed By: #### I CA, CBCDIF, VITD, PTHI, CMP, URIC ####[place] [address] [place] [phone] Erythrocytes (RBC) 10*6/uL Critically abnormal 0-3 [facility] Comment on above: Performed By: #### I CA, CBCDIF, VITD, PTHI, CMP, URIC ####[place] [address] [place] [phone] Hemoglobin mass conc (Bld) 3+ Critically abnormal Negative [facility] Comment on above: Performed By: #### I CA, CBCDIF, VITD, PTHI, CMP, URIC ####[place] [address] [place] [phone] Leukest 3+ Critically abnormal Negative [facility] Comment on above: Performed By: #### I CA, CBCDIF, VITD, PTHI, CMP, URIC ####[place] [address]CSte[address] [place] [phone] pH of blood 6.0 [pH] Normal 4.5-8.0 [facility] Comment on above: Performed By: #### I CA, CBCDIF, VITD, PTHI, CMP, URIC ####[place] [address] AveClevelAlexandria [place] [phone] Protein, Urine 30 mg/dL Critically abnormal Negative [facility] Comment on above: Performed By: #### I CA, CBCDIF, VITD, PTHI, CMP, URIC ####[place] [address] AveCJohn [place] [address] Specific [place], Ur 1.010 Normal 1.005-1.03 0 [facility] Comment on above: Performed By: #### I CA, CBCDIF, VITD, PTHI, CMP, URIC ####[facility] [address] AveCJill [place] [phone] Urine Kelby Comment SEE COMMENT [facility] Comment on above: Result Comment: N/A Performed By: #### I CA, CBCDIF, VITD, PTHI, CMP, URIC ####[facility]CJ[address] [place] [phone] Urine, clarity Cloudy Critically abnormal Clear [facility] Comment on above: Performed By: #### I CA, CBCDIF, VITD, PTHI, CMP, URIC ####[facility] [place] [phone] Urine, color Yellow Normal Yellow [facility] Comment on above: Performed By: #### I CA, CBCDIF, VITD, PTHI, CMP, URIC ####[facility] [address] Urine, epithelial cells in sediment SEE COMMENT Normal [facility] Comment on above: Result Comment: FewS quamous Epithelial Cells Performed By: #### I CA, CBCDIF, VITD, PTHI, CMP, URIC ####[facility] AveClevelJason [address] [address] Urine, glucose presence Negative Normal Negative [facility] Comment on above: Performed By: #### I CA, CBCDIF, VITD, PTHI, CMP, URIC ####[facility] [address] AveC[place], [place] [phone] Urine, ketones presence Negative Normal Negative [facility] Comment on above: Performed By: #### I CA, CBCDIF, VITD, PTHI, CMP, URIC ####[facility] [address] AveCStephen [place] [phone] Urine, nitrite presence Negative Normal Negative [facility] Comment on above: Performed By: #### I CA, CBCDIF, VITD, PTHI, CMP, URIC ####[place] [address]CSte[address] [place] [phone] Urine, urobilinogen Normal Normal Normal [facility] Comment on above: Performed By: #### I CA, CBCDIF, VITD, PTHI, CMP, URIC ####[place] [address]CSte[address] [place] [phone] WBC (Leukocytes) 10*3/uL Critically abnormal 0-5 [facility] Comment on above: Performed By: #### I CA, CBCDIF, VITD, PTHI, CMP, URIC ####[facility] [place] [phone] Urine Cultureon 10-21-2017 Urine culture, bacteria Sp. Request/Comment: - Specimen received in preservative Culture Result - No growth (<1,000 CFU/ml) Normal [facility] Comment on above: Performed By: #### I CA, CBCDIF, VITD, PTHI, CMP, URIC ####[place] [address]CSte[address] [place] [phone] HISTORY PHYSICALon 8 HISTORY PHYSICAL HNO ID: [id number] thor: Al (Res) NIK Abdallaervice: UrologyAuthor Type: ResidentType: HANDPFiled: 10/21/2017 2:31 PMNote Text:HANDP: UROLOGY SERVICENAME: Darrell Handley JeannieRN: [id number]: [id number] DATE: 10/19/2017SERVICE TIME: 5:04 AMPRIHILL [facility] CARE PHYSICIAN: Abigail E Sanchez, MDASSESSMENT AND PLANMrBraden Nelson is a 67 year old male [...] with Dr. Adarsh Abdalla III, MDUrology PGY-2Pager: [phone] 201710:00Overnight and on weekends please page [phone] OF PRESENT ILLNESSMrBraden Nelson is a 67 [...] and 14mm in R renal pelvis Normal [facility] Basic Metabolic Panlon 10-13 Anion gap 12 mmol/L Normal 9-18 [facility] Comment on above: Performed By: #### I CA, CBCDIF, VITD, PTHI, CMP, URIC ####[place] [address] [place] [phone] Calcium 8.2 mg/dL Low 8.5-10.2 [facility] Comment on above: Performed By: #### I CA, CBCDIF, VITD, PTHI, CMP, URIC ####[place] [address]CJ[address] [place] [phone] Chloride 103 mmol/L Normal 97-105 [facility] Comment on above: Performed By: #### I CA, CBCDIF, VITD, PTHI, CMP, URIC ####[place] [address] [place] [phone] CO2 25 mmol/L Normal 22-30 [facility] Comment on above: Performed By: #### I CA, CBCDIF, VITD, PTHI, CMP, URIC ####[place] [address] [place] [phone] Creatinine 0.90 mg/dL Normal 0.73-1.22 [facility] Comment on above: Performed By: #### I CA, CBCDIF, VITD, PTHI, CMP, URIC ####[place] [address] [place] [phone] eGFR (non-black) mL/min/{1.73_m2} Normal [facility] Comment on above: Performed By: #### I CA, CBCDIF, VITD, PTHI, CMP, URIC ####[place] [address] [place] [phone] Result Comment: eGFR (Estimated GFR) Units of [...] Glucose mass conc 95 mg/dL Normal 74-99 [facility] Comment on above: Result Comment: The [place] Diabetes [employer] (ADA) provides guidance for cutoff [...] Standards of Medical Care in Diabetes 2016, [place] [employer]. Diabetes Care. 2016.39(Suppl 1). Performed By: #### I CA, CBCDIF, VITD, PTHI, CMP, URIC ####[facility] [place] [phone] Potassium molar conc 3.9 mmol/L Normal 3.7-5.1 [facility] Comment on above: Performed By: #### I CA, CBCDIF, VITD, PTHI, CMP, URIC ####[facility] [address] [place], [place] [phone] Sodium 140 mmol/L Normal 136-144 [facility] Comment on above: Performed By: #### I CA, CBCDIF, VITD, PTHI, CMP, URIC ####[facility] [address] [place] [phone] Urea nitrogen 7 mg/dL Low 9-24 [facility] Comment on above: Performed By: #### I CA, CBCDIF, VITD, PTHI, CMP, URIC ####[facility] [address] [place] [phone] CBC and Differentialon 10-13 Abs Baso 0.03 k/uL Normal <0.11 [facility] Comment on above: Performed By: #### I CA, CBCDIF, VITD, PTHI, CMP, URIC ####[place] [address]Jenn[address] [place] [phone] 1.28 k/uL High <0.87 [facility] Comment on above: Performed By: #### I CA, CBCDIF, VITD, PTHI, CMP, URIC ####[place] [address] [place] [phone] Abs Neut 8.97 k/uL High 1.45-7.50 [facility] Comment on above: Performed By: #### I CA, CBCDIF, VITD, PTHI, CMP, URIC ####[place] [address] [place] [phone] Basophils/100 WBC Auto (Bld) 0.2 % Normal [facility] Comment on above: Performed By: #### I CA, CBCDIF, VITD, PTHI, CMP, URIC ####[place] [address] [place] [phone] DTYPE Auto Diff Normal [facility] Comment on above: Performed By: #### I CA, CBCDIF, VITD, PTHI, CMP, URIC ####[place] [phone] Eosinophils 0.20 10*3/uL Normal <0.46 [facility] Comment on above: Performed By: #### I CA, CBCDIF, VITD, PTHI, CMP, URIC ####[place] [address] [place] [phone] Eosinophils/100 leukocytes 1.6 % Normal [facility] Comment on above: Performed By: #### I CA, CBCDIF, VITD, PTHI, CMP, URIC ####[place] [address]ClevelAlexand[address] [place] [phone] Erythrocyte distribution width Auto Ratio (RBC) 12.4 % Normal 11.5-15.0 [facility] Comment on above: Performed By: #### I CA, CBCDIF, VITD, PTHI, CMP, URIC ####[place] [address]ClevelAlexand[address] [place] [phone] Erythrocytes (RBC) 4.29 10*6/uL Normal 4.20-6.00 [facility] Comment on above: Performed By: #### I CA, CBCDIF, VITD, PTHI, CMP, URIC ####[place] [address]CSte[address] [place] [phone] Erythrocytes (RBC) 0.0 /100 WBC Normal 0 [facility] Comment on above: Performed By: #### I CA, CBCDIF, VITD, PTHI, CMP, URIC ####[place] [address] [place] [phone] Erythrocytes (RBC) 10*6/uL Normal <0.01 [facility] Comment on above: Performed By: #### I CA, CBCDIF, VITD, PTHI, CMP, URIC ####[place] [address] [place] [phone] Hematocrit (HCT) 38.8 % Low 39.0-51.0 [facility] Comment on above: Performed By: #### I CA, CBCDIF, VITD, PTHI, CMP, URIC ####[place] [address] [place] [phone] Hemoglobin mass conc (Bld) 12.7 g/dL Low 13.0-17.0 [facility] Comment on above: Performed By: #### I CA, CBCDIF, VITD, PTHI, CMP, URIC ####[place] [address]ClevelAlexand[address] [place] [phone] Lymphocytes 2.16 10*3/uL Normal 1.00-4.00 [facility] Comment on above: Performed By: #### I CA, CBCDIF, VITD, PTHI, CMP, URIC ####[place] [address] [place] [phone] Lymphocytes/100 leukocytes 17.1 % Normal [facility] Comment on above: Performed By: #### I CA, CBCDIF, VITD, PTHI, CMP, URIC ####[place] [address] AveCSuzanne [place] [phone] MCH 29.6 pG Normal 26.0-34.0 [facility] Comment on above: Performed By: #### I CA, CBCDIF, VITD, PTHI, CMP, URIC ####[place] [address] [address] AveCSte[address] [place] [phone] MCHC mass conc (RBC) 32.7 g/dL Normal 30.5-36.0 [facility] Comment on above: Performed By: #### I CA, CBCDIF, VITD, PTHI, CMP, URIC ####[place] [address] [address] [phone] MCV 90.4 fL Normal 80.0-100.0 [facility] Comment on above: Performed By: #### I CA, CBCDIF, VITD, PTHI, CMP, URIC ####[place] [address] [phone] Monocytes/100 leukocytes 10.1 % Normal [facility] Comment on above: Performed By: #### I CA, CBCDIF, VITD, PTHI, CMP, URIC ####[place] [address] [address] [phone] Neutrophils/100 WBC Auto (Bld) 71.0 % Normal [facility] Comment on above: Performed By: #### I CA, CBCDIF, VITD, PTHI, CMP, URIC ####[place] [address] [place], [place] [phone] Platelet mean volume (PMV) 11.3 fL Normal 9.0-12.7 [facility] Comment on above: Performed By: #### I CA, CBCDIF, VITD, PTHI, CMP, URIC ####[place] [address] [place], [place] [phone] Platelets 138 10*3/uL Low 150-400 [facility] Comment on above: Result Comment: Resu lt checked and verifiedNo clot detected. Performed By: #### I CA, CBCDIF, VITD, PTHI, CMP, URIC ####[place] [address] [place], [place] [phone] WBC (Leukocytes) 12.64 10*3/uL High 3.70-11.00 [facility] Comment on above: Performed By: #### I CA, CBCDIF, VITD, PTHI, CMP, URIC ####[address] [phone] CNDSon 10-13-2017 CNDS HNO ID: [id number] thor: Feliciano NobleService: UrologyAuthor Type: PhysicianType: Discharge SummariesFiled: 10/15/2017 3:53 PMNote Text:The [place] [phone] or [phone] [facility] N F I D E N T I A L I N F O R M A T I O N STANDARD [facility] DOCUMENTDISCHARGE SUMMARYPatient Name: Darrell Silverio Date: 10/11/2017Discharge Date: 10/13/2017Attending Physician: Feliciano Holtcishanita Diagnosis:Patient Active Hospital Problem List: Calculus of [...] hours for 3 days. Take 1000mg Tylenol (lvx753oh tablets) every 6 hours for 3 days. [...] Carlos Eduardo Dorantes MDDirector, Surgical Stone Disease, [facility] Urologic InstituteProfessor of Surgery, [facility] of MedicinePager [phone]/15/2017 [facility] PLAN OF CAREon 10-13-2017 PLAN OF CARE HNO ID: [id number] thor: Angelique Serrano (Tire Recapper)Service: (none)Author Type: (none)Type: Plan of CareFiled: 10/13/2017 8:44 AMNote Text:QUALITATIVE EXECUTIVE RESEARCHER BEDSIDE DELIVERY SURVEY1. Patient to use [facility] Bedside Delivery - NO prefer ownpharmacy2. If fax, patient would like us to fax prescriptions to [facility] a. Pharmacy: b. Location: c. Phone:3. Insurance card on file - NO4. Credit card for payment - NO [facility] PROGRESSon 10-13-2017 PROGRESS HNO ID: [id number] thor: Shelly Cabrera) O'NeillService: UrologyAuthor Type: Nurse PractitionerType: Progress NotesFiled: 10/13/2017 11:00 AMNote Text:UROLOGY SERVICE PROGRESS NOTEName: Darrell CmdBed: G090 013/Q502-10JRY: [id number]: October 13, 2017ASSESSMENT AND PLANMarjuan Nelson is a 67 year old male with history of HTN, nephrolithiasisnow POD#2 s/p PCNL and R JJ stent placement.#Neuro-Pain controlled on Tylenol#CV/Lahu-HMQ-Efm stable-Continue incentive spirometer use#GI-Diet - GI Soft/regular diet; tolerating without N/V#-Scr 0.90-UOP good-Christian: removed- voiding without difficulty#FEN-IVF NS @ 125 ml/hr#Activity - OOB to chair and Ambulate with assistance#DVT prophylaxis - SCDs, Pharmacologic DVT prophylaxis contraindicated dueto bleeding risk#Antibiotics - Perioperative antibiotics - Ancef#Secondary Dx and ComplicationsHTN- c/w home medications; [facility] Urocit HELD#Discharge teaching - routine teaching#Disposition - Discharge home todaySUBJECTIVE-Pain:controlled -CP/SOB: Denies-N/V:Denies-Bowel function:+Flatus. No BM-Ambulating: YesBrief HPI: No acute events throughout the night. Denies fever, chills.Voiding without difficulty. Doing well. Eager for discharge home.OBJECTIVEVital SignsBP 154/79 Pulse 89 Temp 36.9 ?C (98.4 ?F) (Oral) Resp 20 Ht 175.3cm (5' 9 ) Wt 80 kg (176 lb 5.9 oz) SpO2 96% BMI 26.05 kg/b4Idbec and OutputIntake/Output Summary (Last 24 hours) at [...] mL ORAL q 6 H PRNphenol 1 Mize (CHLORASEPTIC) 1 Mize MUCOUS MEMBRANE (TOPICAL MOUTH ANDTHROAT) q 2 H PRNsimethicone, chewable 80 mg tab(s) (MYLICON) 80 mg ORAL q 8 H PRNoxybutynin 5 mg tab(s) (DITROPAN) 5 mg ORAL q 8 H PRNoxyCODONE IR 5-10 mg tab(s) (ROXICODONE) 5-10 mg ORAL q 4 H PRNNo past medical history on file.ImagingCXR 10/11/17IMPRESSION:NO ACUTE DISEASESIGNATURE: Shelly Cote CNP PAGER: [phone]: October 13, 2017TIME: 9:45amPlease page [phone] on weekends and after 4pm on weekdays Normal [facility] PROGRESS HNO ID: [id number] thor: Miguel (Res) Vernaervice: UrologyAuthor Type: ResidentType: Progress NotesFiled: 10/13/2017 6:47 AMNote Text:UROLOGY RESIDENT PROGRESS NOTEName: Darrell Handley BoydBed: G090 013/U002-21MVN: [id number]: October 13, 2017 =====SUBJECTIVE- no acute events overnight-Pain: controlled-N/V : No- Tolerated diet, ambulating, +ROBF ======OBJECTIVEVital SignsPatient Vitals for the past 8 hrs: BP Temp Temp src Pulse Resp AjA80910/13/17 0300 144/71 36.7 ?C (98 ?F) Oral [...] mL ORAL q 6 H PRNphenol 1 Mize (CHLORASEPTIC) 1 Mize MUCOUS MEMBRANE (TOPICAL MOUTH ANDTHROAT) q 2 [...] Perioperative antibiotics - ancef#ComplicationsNone#Seconda ry Dx-HTN- home losartanC[facility] Centere urocit-K held#Discharge teaching - may need home going christian care teaching#Disposition - d/c todayThe patient's progress, lab findings, vitals, and clinical decision makingas documented above to be discussed with staff Dr. Schroeder. ========Miguel Zapata M.D.Urology PGY-2Pager: [phone] 20176:[phone] AMOvernight and on weekends please page [phone] Normal [facility] APTTon 10-12-2017 aPTT 27.4 s Normal 23.0-32.4 [facility] Comment on above: Result Comment: Unfr [...] laboratory APTT reagent in use throughout the [facility]. Performed By: #### P T, PTT, MG1 ####[place] [phone] Basic Metabolic Panlon 10-12 Anion gap 8 mmol/L Low 9-18 [facility] Comment on above: Performed By: #### C BCDIF, BMP ####[place] [address] [place], [place] [phone] Calcium 8.2 mg/dL Low 8.5-10.2 [facility] Comment on above: Performed By: #### C BCDIF, BMP ####[facility], [place] [phone] Chloride 103 mmol/L Normal 97-105 [facility] Comment on above: Performed By: #### C BCDIF, BMP ####[facility] [place], [place] [phone] CO2 31 mmol/L High 22-30 [facility] Comment on above: Performed By: #### C BCDIF, BMP ####[place] [address], [place] [phone] Creatinine 1.00 mg/dL Normal 0.73-1.22 [facility] Comment on above: Performed By: #### C CHARLENE CONDON ####[facility] [place], [place] [phone] eGFR (non-black) mL/min/{1.73_m2} Normal [facility] Comment on above: Performed By: #### C CHARLENE CONDON ####[facility] [place], [place] [phone] Result Comment: eGFR (Estimated GFR) Units of [...] Glucose mass conc 100 mg/dL High 74-99 [facility] Comment on above: Result Comment: The [place] Diabetes Association (ADA) provides guidance for cutoff [...] Standards of Medical Care in Diabetes 2016, [place] Diabetes Association. Diabetes Care. 2016.39(Suppl 1). Performed By: #### C CHARLENE CONDON ####[facility] [place], [place] [phone] Potassium molar conc 4.0 mmol/L Normal 3.7-5.1 [facility] Comment on above: Performed By: #### C DAVONTEDIF, BMP ####[facility] [address] [place], [place] [phone] Sodium 142 mmol/L Normal 136-144 [facility] Comment on above: Performed By: #### C BCDIF, BMP ####[facility] [address] [place], [place] [phone] Urea nitrogen 9 mg/dL Normal 9-24 [facility] Comment on above: Performed By: #### C BCDIF, BMP ####[facility] [address] [place], [place] [phone] CASE MGT INIT ASSESon 2017 CASE MGT INIT ASSES HNO ID: [id number]: Brigette (Rn) EMILIANO Museervice: Care ManagementAuthor Type: Registered NurseType: Care Mgt Initial AssessmentFiled: 10/12/2017 4:00 PMNote Text:CARE MANAGEMENT: ASSESSMENT AND DISCHARGE PLANSERVICE DATE: 10/12/2017SERVICE TIME: 3:57 PMPRIMARY CARE PHYSICIAN:Abigail Sanchez, [facility]IMESTONE HOSPITALhone: [phone] STATUS: Ambulatory SurgeryPOTENTIAL DISCHARGE PLANSNo Services IndicatedPatient/Material Reclaimer Stated Goals: return homeNeeds Prior to Discharge: NoneHealth Insurance: Medical Gunpowder ServicesLiving Arrangement: HomeLives With: SpouseFinancial Resources: RetiredPrimary Contact:Extended Emergency Contact InformationPrimary Emergency Contact: Ansley NelsonAddress: [address] [place], [place] [id number] [place] [address] Oovixn Hysvvlwq: SpouseSupportive: YesOther Important Patient Contacts: NoneCAREGIVER ASSESSMENT:Caregiver [...] Chief complaint is of his christian.Please contact healthcare project manager if needs arise prior to dc.SIGNATURE: Brigette Muse RN PATIENT NAME: Darrell ElizaldeATE: October 12, 2017 : 3:57 PM PAGER/CONTACT #: [phone] Normal [facility] CBC and Differentialon 10-12 Abs Baso 0.03 k/uL Normal <0.11 [facility] Comment on above: Performed By: #### C BCJUANF, BMP ####[facility] [address] [place], [place] [phone] 1[address]45 k/uL High <0.87 [facility] Comment on above: Performed By: #### C DAVONTEDIF, BMP ####[facility] [address] AveClevelandMascout[place], [place] [phone] Abs Neut 9.96 k/uL High 1.45-7.50 [facility] Comment on above: Performed By: #### C BCDIF, BMP ####[facility] AveClevelandM[address]out[place], [place] [phone] Basophils/100 WBC Auto (Bld) 0.2 % Normal [facility] Comment on above: Performed By: #### C BCJUANF, BMP ####[place] [address] AveClevelAlexandria Ville [phone] DTYPE Auto Diff Normal [facility] Comment on above: Performed By: #### C KRISTINAF, BMP ####[place] [address] AveClevelGr[place], [place] [phone] Eosinophils 0.06 10*3/uL Normal <0.46 [facility] Comment on above: Performed By: #### C BCJUANF, BMP ####[facility] AveClevelAlexandria [place] [phone] Eosinophils/100 leukocytes 0.4 % Normal [facility] Comment on above: Performed By: #### C BCJUANF, BMP ####[facility] AveClevelGr[place], [place] [phone] Erythrocyte distribution width Auto Ratio (RBC) 12.6 % Normal 11.5-15.0 [facility] Comment on above: Performed By: #### C BCDIF, BMP ####[facility] AveClevelGr[address], [place] [phone] Erythrocytes (RBC) 0.0 /100 WBC Normal 0 [facility] Comment on above: Performed By: #### C BCDIF, BMP ####[facility]Clevel[address], [place] [phone] Erythrocytes (RBC) 3.97 10*6/uL Low 4.20-6.00 [facility] Comment on above: Performed By: #### C BCDIF, BMP ####[place] [address]CSte[address] [phone] Erythrocytes (RBC) 10*6/uL Normal <0.01 [facility] Comment on above: Performed By: #### C BCDIF, BMP ####[place] [address]CS[address] [place] [phone] Hematocrit (HCT) 35.9 % Low 39.0-51.0 [facility] Comment on above: Performed By: #### C BCDIF, BMP ####[place] [address] [place] [phone] Hemoglobin mass conc (Bld) 11.9 g/dL Low 13.0-17.0 [facility] Comment on above: Performed By: #### C BCDIF, BMP ####[place] [address]CS[address] [place] [phone] Lymphocytes 2.91 10*3/uL Normal 1.00-4.00 [facility] Comment on above: Performed By: #### C BCDIF, BMP ####[place] [address]CS[address] [phone] Lymphocytes/100 leukocytes 20.2 % Normal [facility] Comment on above: Performed By: #### C BCDIF, BMP ####[place] [address]CS[address] [place] [phone] MCH 30.0 pG Normal 26.0-34.0 [facility] Comment on above: Performed By: #### C BCDIF, BMP ####[place] [address] [place] [phone] MCHC mass conc (RBC) 33.1 g/dL Normal 30.5-36.0 [facility] Comment on above: Performed By: #### C BCDIF, BMP ####[place] [address] AveCRickreall, [place] [phone] MCV 90.4 fL Normal 80.0-100.0 [facility] Comment on above: Performed By: #### C BCDIF, BMP ####[place] [address], [place] [phone] Monocytes/100 leukocytes 10.1 % Normal [facility] Comment on above: Performed By: #### C BCDIF, BMP ####[address] [phone] Neutrophils/100 WBC Auto (Bld) 69.1 % Normal [facility] Comment on above: Performed By: #### C BCDIF, BMP ####[address] [phone] Platelet mean volume (PMV) 11.2 fL Normal 9.0-12.7 [facility] Comment on above: Performed By: #### C BCDIF, BMP ####[address] [phone] Platelets 124 10*3/uL Low 150-400 [facility] Comment on above: Result Comment: Resu lt checked and verifiedNo clot detected. Performed By: #### C BCDIF, BMP ####[address] [phone] WBC (Leukocytes) 14.41 10*3/uL High 3.70-11.00 [facility] Comment on above: Performed By: #### C BCDIF, BMP ####[address] [phone] Magnesiumon 10-12-2017 Magnesium 1.7 mg/dL Normal 1.7-2.3 [facility] Comment on above: Performed By: #### P T, PTT, MG1 ####[address] [phone] PROGRESSon 10-12-2017 PROGRESS HNO ID: [id number] thor: Feliciano Santanaervice: (none)Author Type: PhysicianType: Progress NotesFiled: 10/12/2017 1:40 PMNote Text:STAFF UROLOGY NOTE:Patient's Hb dropped nearly 2 grams post-op and his urine was too bloodythis morning for voiding trial or discharge. Will plan to keep in houseanother day.Feliciano Schroeder, MDDirector, Surgical Stone Disease, [facility] Urologic InstituteProfessor of Surgery, [facility] CampusPager [phone]/12/2017 Normal [facility] PROGRESS HNO ID: [id number] thor: Shelly ([facility]) O'NeillService: UrologyAuthor Type: Nurse PractitionerType: Progress NotesFiled: 10/12/2017 1:31 PMNote Text:UROLOGY SERVICE PROGRESS NOTEName: Darrell CmdBed: G090 013/E368-39WBP: [id number]: October 12, 2017ASSESSENA AND PLANGloriajuan Nelson is a 67 year old male with history of HTN, nephrolithiasisnow POD#1 s/p PCNL and R JJ stent placement.#Neuro-Pain controlled on Tylenol#CV/Vlks-QHG-Ojh stable#GI-Diet - GI Soft/regular diet; tolerating without N/V+Flatus. No BM.#-Scr 1.00-UOP good-Christian: draining religious activities director red urine#FEN-IVF NS @ 125 ml/hr#Activity - [...] lb 5.9 oz) SpO2 95% BMI 26.05 kg/s8Uicaj and OutputIntake/Output Summary (Last 24 hours) at 10/12/17 1302Last data filed at 10/12/17 1000 Gross per 24 hourIntake 4023 mlOutput 1975 mlNet 2048 mlDrains:NoneUrine: 1625ccPhysical ExamGeneral: Well appearing male in NADHEENT: Normocephalic, atraumaticCV:: RRR, hemodynamically stable, well-perfusedResp: breathing comfortably on RA.GI: Soft, nontender, nondistended.: Christian catheter draining religious activities director red urineExtremities: No cyanosis or clubbing, No [...] mL ORAL q 6 H PRNphenol 1 Mize (CHLORASEPTIC) 1 Mize MUCOUS MEMBRANE (TOPICAL MOUTH ANDTHROAT) q 2 H PRNsimethicone, chewable 80 mg tab(s) (MYLICON) 80 mg ORAL q 8 H PRNoxybutynin 5 mg tab(s) (DITROPAN) 5 mg ORAL q 8 H PRNoxyCODONE IR 5-10 mg tab(s) (ROXICODONE) 5-10 mg ORAL q 4 H PRNNo past medical history on file.ImagingXR 10/11/17IMPRESSION:NO ACUTE DISEASESIGNATURE: Shelly Cote CNP PAGER: [phone]: October 12, 2017TIME: 11:15amPlease page [phone] on weekends and after 4pm on weekdays Normal [facility] PROGRESS HNO ID: [id number] thor: Miguel (Res) BrykService: UrologyAuthor Type: ResidentType: Progress NotesFiled: 10/12/2017 6:47 AMNote Text:UROLOGY RESIDENT PROGRESS NOTEName: Darrell CmdBed: G090 013/N559-98IKA: [id number]: October 12, 2017 =====SUBJECTIVE- no acute events overnight-Pain: controlled-N/V : No- Tolerated clears, eager for food =====OBJECTIVEVital SignsPatient Vitals for the past 8 hrs: BP Temp Temp src Pulse Resp SpO2 Height Soesgi77/10/18 1922 148/81 36.7 ?C (98.1 ?F) Oral [...] CBC, Coags, BMP, Mg, PhosRecent Labs 229 0WBC 14.41* 16.46*HB 11.9* 13.7HCT 35.9* 39.7PLT 124* [...] mL ORAL q 6 H PRNphenol 1 Mize (CHLORASEPTIC) 1 Mize MUCOUS MEMBRANE (TOPICAL MOUTH ANDTHROAT) q 2 [...] staff Dr. Schroeder. ========Miguel Zapata M.D.Urology PGY-2Pager: [phone] 2017Overnight and on weekends please page [phone] Normal [facility] Protimeon 10-12-2017 INR Coag RelTime (Bld) 1.0 {INR} Normal 0.9-1.3 [facility] Comment on above: Result Comment: Laisha min K Antagonist (VKA) Therapeutic Range: INR 2 to 3 (Target INR of 2.5)Note: For patients treated with VKA drugs, such as warfarin, the [place] [employer] Chest Physicians 2012 Guideline recommends [...] al. Chest 2012, 141:7S-47SNishimura RA, et al. [facility] 2017, 70: 252-289 Performed By: #### P T, PTT, MG1 ####[facility] [address] [place], [place] [phone] PT Sec 10.8 sec Normal 9.7-13.0 [facility] Comment on above: Performed By: #### P T, PTT, MG1 ####[facility] [address], [place] [phone] ANES Woody 10-11-2017 ANES POST HNO ID: [id number] thor: Teresita RosadoService: AnesthesiologyAuthor Type: PhysicianType: Anesthesia PostOpFiled: 10/11/2017 4:08 [...] 11, 2017 : 4:07 PM PAGER/CONTACT #: [phone] [facility] BRIEF OP NOTon 10-11-2017 BRIEF OP NOT HNO ID: [id number] thor: Miguel Gillespieervice: UrologyAuthor Type: ResidentType: Brief Op NoteFiled: 10/11/2017 3:17 PMNote Text:UROLOGY BRIEF OPERATIVE NOTELOG ID: [id number]/Procedure Date: 10/11/2017Incision/Procedure Start Time: 1:38 PMIncision Close/Procedure [...] 30 FrenchTract Dilation Device: BalloonSurgeon(s)/Proceduralist (s) and Certified Peer Specialist(s):Surgeon(s) and Role: * Feliciano Schroeder - Primary * Miguel Zapata - Resident - Assisting * Damon Garcias (Fel) - FellowNo Additional StaffAnesthesia: GeneralFLUIDSIntake: 1200ccUrine Output: n/a, irrigationEstimated Blood Loss: 50 mlsAccidental punctures or Lacerations: noneComplications: NoneDrains: Christian, 20fr coude tipImplants: [id number] JJ ureteral stentCultures: NoneFindings: Soft stones in R Renal pelvis and R lower pole (>3cm). Lowerpole access. Stone free at end of the case.Specimens:Specimen ID Type Site Comments Sent Toother Stone stones sent to PACU with patient OtherPost-Op Plan of Care:To RNFSIGNATURE: Miguel Zapata MD PATIENT NAME: Darrell ElizaldeATE: October 11, 2017 : 3:11 PM PAGER/CONTACT #: [phone] after hours issues, please call the on-call urology pager [phone] Normal [facility] CBC and Differentialon 10-11 Abs Baso 0.03 k/uL Normal <0.11 [facility] Comment on above: Performed By: #### C BCDIF ####[place] [address] AveCRickre[address], [place] [phone] 1.18 k/uL High <0.87 [facility] Comment on above: Performed By: #### C BCDIF ####[place] [address] AveCSte[address] [phone] Abs Neut 12.38 k/uL High 1.45-7.50 [facility] Comment on above: Performed By: #### C BCDIF ####[facility] AveCS[address] [place] [phone] Basophils/100 WBC Auto (Bld) 0.2 % Normal [facility] Comment on above: Performed By: #### C BCDIF ####[place] [address] AveCRickre[address], [place] [phone] DTYPE Auto Diff Normal [facility] Comment on above: Performed By: #### C BCDIF ####[place] [address]CR[address], [place] [phone] Eosinophils 0.06 10*3/uL Normal <0.46 [facility] Comment on above: Performed By: #### C BCDIF ####[facility]CR[address], [place] [phone] Eosinophils/100 leukocytes 0.4 % Normal [facility] Comment on above: Performed By: #### C BCDIF ####[place] [address], [place] [phone] Erythrocyte distribution width Auto Ratio (RBC) 12.4 % Normal 11.5-15.0 [facility] Comment on above: Performed By: #### C BCDIF ####[place] [address], [place] [phone] Erythrocytes (RBC) 0.0 /100 WBC Normal 0 [facility] Comment on above: Performed By: #### C BCDIF ####[place] [address], [place] [phone] Erythrocytes (RBC) 10*6/uL Normal <0.01 [facility] Comment on above: Performed By: #### C BCDIF ####[place] [address], [place] [phone] Erythrocytes (RBC) 4.42 10*6/uL Normal 4.20-6.00 [facility] Comment on above: Performed By: #### C BCDIF ####[place] [address], [place] [phone] Hematocrit (HCT) 39.7 % Normal 39.0-51.0 [facility] Comment on above: Performed By: #### C BCDIF ####[place] [address], [place] [phone] Hemoglobin mass conc (Bld) 13.7 g/dL Normal 13.0-17.0 [facility] Comment on above: Performed By: #### C BCDIF ####[place] [address], [place] [phone] Lymphocytes 2.81 10*3/uL Normal 1.00-4.00 [facility] Comment on above: Performed By: #### C BCDIF ####[place] [address], [place] [phone] Lymphocytes/100 leukocytes 17.1 % Normal [facility] Comment on above: Performed By: #### C BCDIF ####[place] [address], [place] [phone] MCH 31.0 pG Normal 26.0-34.0 [facility] Comment on above: Performed By: #### C BCDIF ####[place] [address], [place] [phone] MCHC mass conc (RBC) 34.5 g/dL Normal 30.5-36.0 [facility] Comment on above: Performed By: #### C BCDIF ####[address] [phone] MCV 89.8 fL Normal 80.0-100.0 [facility] Comment on above: Performed By: #### C BCDIF ####[address], [place] [phone] Monocytes/100 leukocytes 7.2 % Normal [facility] Comment on above: Performed By: #### C BCDIF ####[address] [phone] Neutrophils/100 WBC Auto (Bld) 75.1 % Normal [facility] Comment on above: Performed By: #### C BCDIF ####[address] [phone] Platelet mean volume (PMV) 11.3 fL Normal 9.0-12.7 [facility] Comment on above: Performed By: #### C BCDIF ####[address] [phone] Platelets 147 10*3/uL Low 150-400 [facility] Comment on above: Performed By: #### C BCDIF ####[address], [place] [phone] WBC (Leukocytes) 16.46 10*3/uL High 3.70-11.00 [facility] Comment on above: Performed By: #### C BCDIF ####[facility] [place], [place] [phone] Calculi Analysison 8 Calculus Type stone Normal [facility] Comment on above: Performed By: #### I CA, CBCDIF, VITD, PTHI, CMP, URIC ####[facility] [place], [place] [phone] Note (NOTE) Normal [facility] Comment on above: Result Comment: Calc ulus Color: OFF WHITECalculus Size & Weight: MULTIPLE PIECES, 0.5788 GRAMSComposition: CALCIUM PHOSPHATE - 60% CALCIUM OXALATE MONOHYDRATE - 30% MINOR COMPONENTS - 10%This test was developed and its performance characteristicsdetermined by the [facility] Pathology andLaboratory Medicine [place] ([facility]).It has not been cleared or approved by the FDA.[facility] is regulated under CLIA as qualified to performhigh-complexity testing.This test is used for clinical purposes. It should not be regarded asinvestigational or for research. Performed By: #### I CA, CBCDIF, VITD, PTHI, CMP, URIC ####[facility] [place], [place] [phone] NURSING PROGon 10-11-2017 NURSING PROG HNO ID: [id number] thor: Melita (Rn) Vincenzo, EMILIANOervice: (none)Author Type: Registered NurseType: Nursing Progress NoteFiled: 10/11/2017 8:01 PMNote Text:Admission/Transfer NotePATIENT NAME: Darrell CmdMRN: [id number] admitted from PACU via stretcher in stable condition.Actions taken: Patient oriented to room, call light function, prescribedactivities, Patient rights and Quiet at night.This note was completed by: Melita Loya RN Normal [facility] NURSING PROG HNO ID: [id number] thor: May TenorioRn) EMILIANO Moffettervice: NursingAuthor Type: Registered NurseType: Nursing Progress NoteFiled: 10/11/2017 10:50 AMNote Text:PRE OP LEARNING ASSESSMENTPROCEDURE/SURGERY: SURGERY: PreopREADINESS TO LEARN: InterestedCOGNITIVE ABILITY: Alert and orientedMOTIVATION TO LEARN: EagerFAMILY SUPPORT: High - Very involved in pt carePATIENT LEARNS BEST BY: Multiple MethodsFACTORS AFFECTING LEARNING: NonePHYSICAL LIMITATIONS AFFECTING LEARNING: NoneElectronically Signed By: May Moffett RN In Department: [place] [id number] [facility] OPERATIVE NOon 10-11-2017 OPERATIVE NO HNO ID: [id number] thor: Feliciano Santanaervice: UrologyAuthor Type: PhysicianType: Operative ReportFiled: 10/12/2017 9:11 AMNote Text:OPERATIVE/PROCEDURE REPORTLOG ID: [id number]/Procedure Date: 10/11/2017Incision/Procedure Start Time: 1:38 PMIncision Close/Procedure End Time: 3:13 PMSurgeon(s)/Proceduralist(s) and Certified Peer Specialist(s):Surgeon(s) and Role: * Feliciano Schroeder - Primary [...] and draped in the standard sterile fashion.First preschool education director images were obtained noting two opacities in [...] pulled out through theurethral meatus to gain ftjzprm-kuj-oqxlacy access.A glide catheter was used to exchange the rkrpobf-oob-kwjzhux guidewirefor an Amplatz superstiff wire. The ureteroscope was re-inserted to theaccessed calyx. An 8/10 Fr dilator was then used to gently dilate thetract. The tract was incised at the skin for 10 mm. The [employer] X-Forceballoon was advanced over the wire and [...] Garcias and Dr. Zapata.Miguel Zapata M.D.Urology PGY-2Pager: [phone] 20174:59 PMOvernight and on weekends please page [phone] Alexandre, MDDirector, Surgical Stone Disease, [facility] Urologic InstituteProfessor of Surgery, [facility] CampusPager [phone]/12/2017 Normal [place] d [facility] PROGRESSon 10-11-2017 PROGRESS HNO ID: [id number] thor: Tyler (Res) Rick Meridarvice: Pediatric UrologyAuthor [...] mL ORAL q 6 H PRNphenol 1 Mize (CHLORASEPTIC) 1 Mize MUCOUS MEMBRANE (TOPICAL MOUTH ANDTHROAT) q 2 [...] lb 5.9 oz) SpO2 99% BMI 26.05 kg/w5JOLETAFN EXAM:GENERAL: no distressNEURO: OUDUAo3ITGZZ: breathing comfortably on 2LCARDIAC: warm and well [...] routine teachingDischarge planning - pendingT[place] [phone] Normal [facility] PT EDon 10-11-2017 PT ED HNO ID: [id number] thor: Ccf ProviderService: (none)Author Type: PhysicianType: Patient EducationFiled: 10/11/2017 7:15 PMNote Text:[facility] CampusPatient Education Report Name: DARRELL NELSON Date: 10/11/2017 Time: 7:15 PMPatient Ordered Video: Inpatient Fallsfrom [id number] via phone number [phone] at 7:15 PM Normal [facility] XR CHEST 1V FRONTAL PORTon 0 [...] ORDOÑEZ MD on Oct 11 2017 4:13PM [id number] Normal [facility] CNCOon 10-05-2017 CNCO Letter Text10/05/2017M teresa Handley [address] [id number] Mr. Nelson:Your recent 24 hour urine test [...] for future kidney stones. You may contact [facility] [phone] with any questions or concerns.Sincerely,Feliciano Schroeder M.D.ELECTRONICALLY SIGNED Normal [facility] CBC and Differentialon 09-12 Abs Baso 0.04 k/uL Normal <0.11 [facility] Comment on above: Performed By: #### I CA, CBCDIF, VITD, PTHI, CMP, URIC ####[facility] Eggj[address] AveCStephen Ville [phone] 1.26 k/uL High <0.87 [facility] Comment on above: Performed By: #### I CA, CBCDIF, VITD, PTHI, CMP, URIC ####[facility] [address] AveCStephen Ville [phone] Abs Neut 6.39 k/uL Normal 1.45-7.50 [facility] Comment on above: Performed By: #### I CA, CBCDIF, VITD, PTHI, CMP, URIC ####[place] [address] AveCStephen [place]ille [phone] Basophils/100 WBC Auto (Bld) 0.3 % Normal [facility] Comment on above: Performed By: #### I CA, CBCDIF, VITD, PTHI, CMP, URIC ####[place] [address] AveCStephen [place] [phone] DTYPE Auto Diff Normal [facility] Comment on above: Performed By: #### I CA, CBCDIF, VITD, PTHI, CMP, URIC ####[place] [address] AveCSte[address] [place] [phone] Eosinophils 0.10 10*3/uL Normal <0.46 [facility] Comment on above: Performed By: #### I CA, CBCDIF, VITD, PTHI, CMP, URIC ####[place] [address] AveCSte[address] [place] [phone] Eosinophils/100 leukocytes 0.9 % Normal [facility] Comment on above: Performed By: #### I CA, CBCDIF, VITD, PTHI, CMP, URIC ####[place] [address] [address]CS[address] [place] [phone] Erythrocyte distribution width Auto Ratio (RBC) 12.9 % Normal 11.5-15.0 [facility] Comment on above: Performed By: #### I CA, CBCDIF, VITD, PTHI, CMP, URIC ####[place] [address] [address]CSte[address] [place] [phone] Erythrocytes (RBC) 0.0 /100 WBC Normal 0 [facility] Comment on above: Performed By: #### I CA, CBCDIF, VITD, PTHI, CMP, URIC ####[place] [address] [address]CSte[address] [place] [phone] Erythrocytes (RBC) 4.74 10*6/uL Normal 4.20-6.00 [facility] Comment on above: Performed By: #### I CA, CBCDIF, VITD, PTHI, CMP, URIC ####[place] [address] [address]CS[address] [place] [phone] Erythrocytes (RBC) 10*6/uL Normal <0.01 [facility] Comment on above: Performed By: #### I CA, CBCDIF, VITD, PTHI, CMP, URIC ####[place] [address] [address]CS[address] [place] [phone] Hematocrit (HCT) 43.7 % Normal 39.0-51.0 [facility] Comment on above: Performed By: #### I CA, CBCDIF, VITD, PTHI, CMP, URIC ####[place] [address] [address]CS[address] [place] [phone] Hemoglobin mass conc (Bld) 14.2 g/dL Normal 13.0-17.0 [facility] Comment on above: Performed By: #### I CA, CBCDIF, VITD, PTHI, CMP, URIC ####[place] [address] [address] [place] [phone] Lymphocytes 3.64 10*3/uL Normal 1.00-4.00 [facility] Comment on above: Performed By: #### I CA, CBCDIF, VITD, PTHI, CMP, URIC ####[place] [address] [address] [place] [phone] Lymphocytes/100 leukocytes 31.8 % Normal [facility] Comment on above: Performed By: #### I CA, CBCDIF, VITD, PTHI, CMP, URIC ####[place] [address] [address] [place] [phone] MCH 30.0 pG Normal 26.0-34.0 [facility] Comment on above: Performed By: #### I CA, CBCDIF, VITD, PTHI, CMP, URIC ####[place] [address] [address]CS[address] [place] [phone] MCHC mass conc (RBC) 32.5 g/dL Normal 30.5-36.0 [facility] Comment on above: Performed By: #### I CA, CBCDIF, VITD, PTHI, CMP, URIC ####[place] [address] [address] [place] [phone] MCV 92.2 fL Normal 80.0-100.0 [facility] Comment on above: Performed By: #### I CA, CBCDIF, VITD, PTHI, CMP, URIC ####[place] [address] [address] [place] [phone] Monocytes/100 leukocytes 11.0 % Normal [facility] Comment on above: Performed By: #### I CA, CBCDIF, VITD, PTHI, CMP, URIC ####[place] [address] [address] [place] [phone] Neutrophils/100 WBC Auto (Bld) 56.0 % Normal [facility] Comment on above: Performed By: #### I CA, CBCDIF, VITD, PTHI, CMP, URIC ####[address], [place] [phone] Platelet mean volume (PMV) 11.2 fL Normal 9.0-12.7 [facility] Comment on above: Performed By: #### I CA, CBCDIF, VITD, PTHI, CMP, URIC ####[place] [address] [address], [place] [phone] Platelets 206 10*3/uL Normal 150-400 [facility] Comment on above: Performed By: #### I CA, CBCDIF, VITD, PTHI, CMP, URIC ####[facility], [place] [phone] WBC (Leukocytes) 11.43 10*3/uL High 3.70-11.00 [facility] Comment on above: Performed By: #### I CA, CBCDIF, VITD, PTHI, CMP, URIC ####[address] [phone] Sukhi 09-12-2017 CNOV Office Visit (RASAHAD) DARRELL NELSON ([id number]) 1950 [facility] Time Provider Vibpgsjsuv69/12/17 10:30 AM FELICIANO SCHROEDER During your visit [...] Urine Negative NegativeKetones, Urine Negative 1+ (A)Specific [place], Ur 1.005 - 1.030 1.016Hemoglobin/Blood,Ur Negative 2+ [...] with more than 50% of the total szdj-ys-cgsd time ofthe visit devoted to patient counseling/coordination of care.Feliciano Schroeder, MDDirector, Surgical Stone Disease, [facility] Urologic InstituteProfessor of Surgery, [facility] CampusPager [phone]/12/2017Bonita Ozuna CNP 09/12/2017 7:38 PM SignedUROLOGY SURGICAL HANDamp;PSERVICE DATE: 09/12/2017REFERRING PROVIDER: Cleveland Llanes MD2800 [facility] [id number]: No PcpGENDER:SUBJECTIVECHIEF COMPLAINT: Pre-op examHISTORY OF PRESENT [...] symtoms or problems.No history of angina, CHF, [place], cardiac surgery of stents.Respiratory: Negative for current cough, dyspnea. No hx of pneumonia in thepast six weeksPositive: PND, sinus drainage from allergiesGastrointestinal: No history of GERD, PUD, abd pain, difficulty swallowing, GIbleed.Renal: +stonesMusculoskeletal: Negative for joint pain or swelling, back pain or muscle pain.Skin: Negative for lesions, rash and itching.Psychological: No history of psychiatric symptoms or problems.Neurologic: No history of TIA's, stroke, MUSIC DEPARTMENT CHAIR tumor, impaired sensorium,hemiplegia, paraplegia or quadriplegia. No [...] 10ANDquot;) Wt 79.4 kg (175 lb) BMI25.11 kg/g4Oghqoksdlhu Max: @TMAXREFRESH(24)@ALLERGIES:ISIS RGIESNo Known AllergiesLABS:No results found for: BUNNo results found for: Marc results found for: PSAGlucose, Urine (mg/dL)Date Value09/12/2017 Negative Bilirubin, Urine (no units)Date Value09/12/2017 Negative Ketones, Urine (no units)Date Value09/12/2017 1+ (A) Specific [place], Ur (no units)Date Value09/12/2017 1.016 Hemoglobin/Blood ,Ur [...] Calculus, kidney (primary encounter diagnosis)N20.1 Calculus of ykqubiK78.9 Right flank painI10 Essential phbzxbrasmuaY86.1 Family history of qqqbiirazoxbyglX39.49 Family history of ecoblakmuvnnvkyfhdvO34.9 Low vitamin D hxocyB28.90 Abnormal urinalysisGLICKGROVETON UROLOGICAL AND KIDNEY INSTITUTEPRE-OP NOTEDate of Procedure: [...] 11:45 AM PAGER/CONTACT #:Referring Provider: CLEVELAND LLANES [[id number]]Allergies As of Date: 09/12/2017(No Known Allergies)Date Reviewed: 09/12/2017Reviewed by: Az Ann MA - Fully AssessedPrimary Visit Diagnosis:Calculus, kidney [N20.0] Other Visit Diagnoses:Calculus of ureter [N20.1] Right flank pain [R10.9] Essential hypertension [I10] Family history of nephrolithiasis [Z84.1] Family history of hyperparathyroidism [Z83.49] Low vitamin D level [E55.9] Abnormal urinalysis [R82.90]Order(s):UA CHEMSTRIP ONLY [SQUA] Order #: [id number] FUTURE UA CHEMSTRIP ONLY [SQUA] Order #: [id number]. #:[id number] VITAMIN D 25 HYDROXY [SQVITD] Order #: [id number] FUTURE CBC + DIFF [SQCBCDIF] Order #: [id number] FUTURE COMP METABOLIC PANEL [SQCMP] Order #: [id number] FUTURE PTH INTACT BLD [SQPTHI] Order #: [id number] FUTURE URIC ACID BLOOD [SQURIC] Order #: [id number] FUTURE TYPE + SCREEN,30 DAY [PASXVD93] Order #: [id number] FUTURE CONFIRM BLOOD TYPE [SQCONABO] Order #: [id number] FUTURE ECG COMPLETE W INTERPRETATION [ECG01] Order #: [id number] FUTURE [facility] [3174201] Order #: [id number] CALCIUM IONIZED B [SQICA] Order #: [id number] FUTURE URINE CULTURE [SQURCUL] Order #: [id number]. #:[id number] iptions as of 09/12/2017 Sig: MULTIVITAMIN TABLET [...] Disposition History RecordedLetter TextDecember 2016Cleveland Llanes MD2800 [facility] [address]FWNG: Katherine Nelson NO: [id number] OF SERVICE: 09/12/2017Dear Dr. Llanes,[facility]Enclosed is a copy of my clinic note which should be self-explanatoryregarding findings, recommendations, and treatment plan. Please don'thesitate to contact me if there are questions.Sincerely,Feliciano Schroeder M.D.Staff Urologist, [facility] Memorial HospitalELECTRONICALLY SIGNEDcc: Abigail Sanchez M.D., [address] [place] [address]Qorutejwf Number: [id number] Status:Closed by FELICIANO SCHROEDER MD on 09/12/17 Normal [facility] Calcium, Ionizedon 7 Calcium 1.14 mmol/L Normal 1.08-1.30 [facility] Comment on above: Performed By: #### I CA, CBCDIF, VITD, PTHI, CMP, URIC ####[facility] [place] [phone] Calcium, Ionized 1.20 mmol/L Normal 1.08-1.30 [facility] Comment on above: Performed By: #### I CA, CBCDIF, VITD, PTHI, CMP, URIC ####[place] [address] [address] AvJenn[place] [phone] Comp Metabolic Panelon 09-12 Alanine aminotransferase (ALT) 43 U/L Normal 10-54 [facility] Comment on above: Performed By: #### I CA, CBCDIF, VITD, PTHI, CMP, URIC ####[place] [address] [address] [place] [phone] Albumin 3.8 g/dL Low 3.9-4.9 [facility] Comment on above: Performed By: #### I CA, CBCDIF, VITD, PTHI, CMP, URIC ####[place] [address] [address] [place] [phone] Alkaline phosphatase (ALP) 98 U/L Normal 36-108 [facility] Comment on above: Performed By: #### I CA, CBCDIF, VITD, PTHI, CMP, URIC ####[place] [address] [address] [place] [phone] Anion gap 15 mmol/L Normal 9-18 [facility] Comment on above: Performed By: #### I CA, CBCDIF, VITD, PTHI, CMP, URIC ####[place] [address] [address]Jenn[address] [place] [phone] Aspartate aminotransferase (AST) 40 U/L Normal 14-40 [facility] Comment on above: Performed By: #### I CA, CBCDIF, VITD, PTHI, CMP, URIC ####[place] [address] [address] [place] [phone] Bilirubin (total) 0.5 mg/dL Normal 0.2-1.3 [facility] Comment on above: Performed By: #### I CA, CBCDIF, VITD, PTHI, CMP, URIC ####[place] [address] [address] AveCJill [place] [phone] Calcium 9.3 mg/dL Normal 8.5-10.2 [facility] Comment on above: Performed By: #### I CA, CBCDIF, VITD, PTHI, CMP, URIC ####[place] [address] [address] AveCJ[address] [place] [phone] Chloride 100 mmol/L Normal 97-105 [facility] Comment on above: Performed By: #### I CA, CBCDIF, VITD, PTHI, CMP, URIC ####[place] [address] [address]CJ[address] [place] [phone] CO2 26 mmol/L Normal 22-30 [facility] Comment on above: Performed By: #### I CA, CBCDIF, VITD, PTHI, CMP, URIC ####[place] [address] [address] AvBradley [place] [phone] Creatinine 1.05 mg/dL Normal 0.73-1.22 [facility] Comment on above: Performed By: #### I CA, CBCDIF, VITD, PTHI, CMP, URIC ####[place] [address] [address] AvBradley [place] [phone] eGFR (non-black) mL/min/{1.73_m2} Normal [facility] Comment on above: Performed By: #### I CA, CBCDIF, VITD, PTHI, CMP, URIC ####[place] [address] [address] [place] [phone] Result Comment: eGFR (Estimated GFR) Units of [...] Glucose mass conc 92 mg/dL Normal 74-99 [facility] Comment on above: Result Comment: The [place] Diabetes Association (ADA) provides guidance for cutoff [...] Standards of Medical Care in Diabetes 2016, [place] [employer] Association. Diabetes Care. 2016.39(Suppl 1). Performed By: #### I CA, CBCDIF, VITD, PTHI, CMP, URIC ####[facility] [place], [place] [phone] Potassium molar conc 4.0 mmol/L Normal 3.7-5.1 [facility] Comment on above: Performed By: #### I CA, CBCDIF, VITD, PTHI, CMP, URIC ####[facility] [place], [place] [phone] Protein 7.5 g/dL Normal 6.3-8.0 [facility] Comment on above: Performed By: #### I CA, CBCDIF, VITD, PTHI, CMP, URIC ####[facility] AveCRickreall, [place] [phone] Sodium 141 mmol/L Normal 136-144 [facility] Comment on above: Performed By: #### I CA, CBCDIF, VITD, PTHI, CMP, URIC ####[facility]CStephen [place] [phone] Urea nitrogen 10 mg/dL Normal 9-24 [facility] Comment on above: Performed By: #### I CA, CBCDIF, VITD, PTHI, CMP, URIC ####[facility] [address] [place], [place] [phone] Confirm Blood Typeon 017 ABO/RH(D) Positive Normal [facility] Comment on above: Performed By: #### C ONABO ####[facility] [address] [place], [place] [phone] HISTORY PHYSICALon 7 HISTORY PHYSICAL HNO ID: [id number] thor: Bonita ([employer]) DigennaroService: (none)Author Type: Nurse PractitionerType: HANDPFiled: 09/12/2017 7:38 PMNote Text:UROLOGY SURGICAL HANDPSERVICE DATE: 09/12/2017REFERRING PROVIDER: Cleveland Llanes MD2800 [facility] HospitalRupalSolomon [facility] [address]AFF: No PcpGENDER:SUBJECTIVECHIEF COMPLAINT: Pre-op examHISTORY OF PRESENT [...] symtoms or problems.No history of angina, CHF, [place], cardiac surgery of stents.Respiratory: Negative for current cough, dyspnea. No hx of pneumonia inthe past six weeksPositive: PND, sinus drainage from allergiesGastrointestinal: No history of GERD, PUD, abd pain, difficultyswallowing, GI bleed.Renal: +stonesMusculoskeletal: Negative for joint pain or swelling, back pain or musclepain.Skin: Negative for lesions, rash and itching.Psychological: No history of psychiatric symptoms or problems.Neurologic: No history of TIA's, stroke, MUSIC DEPARTMENT CHAIR tumor, impaired sensorium,hemiplegia, paraplegia or quadriplegia. No [...] ) Wt 79.4 kg (175 lb) BMI25.11 kg/c8Pnmglwlgerc Max: @TMAXREFRESH(24)@ALLERGIES:ISIS RGIESNo Known AllergiesLABS:No results found for: BUNNo results found for: CREATNo results found for: PSAGlucose, Urine (mg/dL)Date Value09/12/2017 Negative Bilirubin, Urine (no units)Date Value09/12/2017 Negative Ketones, Urine (no units)Date Value09/12/2017 1+ (A) Specific [place], Ur (no units)Date Value09/12/2017 1.016 Hemoglobin/Blood ,Ur [...] Calculus, kidney (primary encounter diagnosis)N20.1 Calculus of oojuiqI13.9 Right flank painI10 Essential yxaatqqmjvwrZ94.1 Family history of rozatzzupawarhqD65.49 Family history of oznyksufthskcheevoqH74.9 Low vitamin D oqlubG98.90 Abnormal urinalysisGLICKMAN UROLOGICAL AND KIDNEY INSTITUTEPRE-OP NOTEDate [...] 2017 : 11:45 AM PAGER/CONTACT #: Dong [facility] 09-12-2017 HOSP Patient Update ([facility]) DARRELL NELSON ([id number]) 1950 MDate Time Provider Kdicalyxyt38/12/17 ASHTYN RABAGO (RN) [facility] During your visit today, we recorded the following information about you:Allergies As of Date: 09/12/2017(No Known Allergies)Date Reviewed: 09/12/2017Reviewed by: Az Ann MA - Fully AssessedOrder(s):SURGICAL REQUEST - ELECTIVE [[id number]] Order #: [id number]: 1Prescriptions as of 09/12/2017 Sig: POTASSIUM CITRATE [...] FOR* More...Follow-up and Disposition History RecordedEncounter Number: [id number] Status:Closed by ASHTYN RABAGO on 09/12/[address] [facility] Patient:Darrell Nelson LMRN: Height:5' 10 (1.778 m)Weight:175 lb (79.379 kg)Outpatient Medications as of 10/11/17:potassium citrate ER (UROCIT-K) 10 mEq (1,080 mg) TbERtamsulosin ER (FLOMAX) 0.4 mg yf60ksoogzkm (COZAAR) 25 mg tabletmultivitamin tabletAdmission/Clinic Administered Medications as of 10/11/17:0.9% NaCl 2-10 mLlactated ringers infusionceFAZolin 2 g in dextrose (iso-osmotic) 100 mL (DAISHA KOLB)Problem List:Calculus, kidney [N20.0]Calculus of ureter [N20.1]Right flank [...] 20 [facility]. [facility]5 years [facility]. [...] Urine Negative NegativeKetones, Urine Negative 1+ (A)Specific [place], Ur 1.005 - 1.030 1.016Hemoglobin/Blood,Ur Negative 2+ [...] with more than 50% of the total mgdm-sl-olnk time of thevisit devoted to patient counseling/coordination of care.Feliciano Schroeder, MDDirector, Surgical Stone Disease, [facility] Urologic InstituteProfessor of Surgery, [facility] CampusPager [phone]/12/2017Previous VersionHeisabela Ozuna CNP 09/12/2017 7:38 PM SignedUROLOGY SURGICAL HANDPSERVICE DATE: 09/12/2017REFERRING PROVIDER: Cleveland Llanes MD2800 [facility] David HospitalRupalg [place] [address]EIQ: No PcpGENDER:SUBJECTIVECHIEF COMPLAINT: Pre-op examHISTORY OF PRESENT [...] symtoms or problems.No history of angina, CHF, [place], cardiac surgery of stents.Respiratory: Negative for current cough, dyspnea. No hx of pneumonia in the pastsix weeksPositive: PND, sinus drainage from allergiesGastrointestinal: No history of GERD, PUD, abd pain, difficulty swallowing, GIbleed.Renal: +stonesMusculoskeletal: Negative for joint pain or swelling, back pain or muscle pain.Skin: Negative for lesions, rash and itching.Psychological: No history of psychiatric symptoms or problems.Neurologic: No history of TIA's, stroke, MUSIC DEPARTMENT CHAIR tumor, impaired sensorium,hemiplegia, paraplegia or quadriplegia. No [...] ) Wt 79.4 kg (175 lb) BMI 25.11kg/c8Uwcqzwngsgm Max: @TMAXREFRESH(24)@ALLERGIES:ISIS RGIESNo Known AllergiesLABS:No results found for: BUNNo results found for: CREALEXINo results found for: PSAGlucose, Urine (mg/dL)Date Value09/12/2017 Negative Bilirubin, Urine (no units)Date Value09/12/2017 Negative Ketones, Urine (no units)Date Value09/12/2017 1+ (A) [place], Ur (no units)Date Value09/12/2017 1.016 Hemoglobin/Blood ,Ur [...] Calculus, kidney (primary encounter diagnosis)N20.1 Calculus of rjlliqD80.9 Right flank painI10 Essential gyiquecdfrrrB45.1 Family history of nnqurbnauuaoxdiQ07.49 Family history of qnppzliisgciourckxmX23.9 Low vitamin D xoiwbA92.90 Abnormal urinalysisUNC HEALTH JOHNST[facility]LAY[facility] UROLOGICAL AND KIDNEY INSTITUTEPRE-OP NOTEDate of Procedure: [...] permitted. [facility] may have water during the morning [...] 2017 : 11:45 AM PAGER/CONTACT #: Dong [facility] PROGRESSon 09-12-2017 PROGRESS HNO ID: [id number] thor: Feliciano Santanaervice: (none)Author Type: PhysicianType: Progress NotesFiled: 09/12/2017 7:38 [...] Urine Negative NegativeKetones, Urine Negative 1+ (A)[place], Ur 1.005 - 1.030 1.016Hemoglobin/Blood,Ur Negative 2+ [...] with more than 50% of the total lqej-ly-vdpsugde of the visit devoted to patient counseling/coordination of care.Feliciano Schroeder, MDDirector, Surgical Stone Disease, [facility] Urologic InstituteProfessor of Surgery, [facility] CampusPager [phone]/12/2017 Normal [facility] PTH, [place] 09-12-2017 PTH, Intact 26 pg/mL Normal 15-65 [facility] Comment on above: Performed By: #### I CA, CBCDIF, VITD, PTHI, CMP, URIC ####[place] [address] [place], [place] [phone] Type and SCR (30D)on 017 ABO/RH(D) Positive Normal [facility] Comment on above: Performed By: #### T SCR30 ####[place] [address] [place] [phone] Antibody Screen Negative Normal [facility] Comment on above: Performed By: #### T SCR30 ####[facility] [place] [phone] Uric Acidon 09-12-2017 Urate 4.9 mg/dL Normal 4.0-8.1 [facility] Comment on above: Performed By: #### I CA, CBCDIF, VITD, PTHI, CMP, URIC ####[facility] [address], [place] [phone] Urinalysison 09-12-2017 Bilirubin, Urine Negative Normal Negative [facility] Comment on above: Performed By: #### U A ####[place] [phone] Comments SEE COMMENT Normal [facility] Comment on above: Result Comment: Micr oscopic Examination Performed Performed By: #### U A ####[place] [address] [address] [phone] Erythrocytes (RBC) 10*6/uL Critically abnormal 0-3 [facility] Comment on above: Performed By: #### U A ####[place] [address] [address] [place] [phone] Hemoglobin mass conc (Bld) 2+ Critically abnormal Negative [facility] Comment on above: Performed By: #### U A ####[place] [address] [address] [phone] Leukest 3+ Critically abnormal Negative [facility] Comment on above: Performed By: #### U A ####[address] [place] [phone] pH of blood 7.0 [pH] Normal 4.5-8.0 [facility] Comment on above: Performed By: #### U A ####[place] [address] [place] [phone] Protein, Urine 30 mg/dL Critically abnormal Negative [facility] Comment on above: Performed By: #### U A ####[place] [phone] [place], Ur 1.016 Normal 1.005-1.03 0 [facility] Comment on above: Performed By: #### U A ####[place] [address] [address] [phone] Urine Kelby Comment SEE COMMENT Normal [facility] Comment on above: Result Comment: N/A Performed By: #### U A ####[place] [address] [address] [phone] Urine, clarity Cloudy Critically abnormal Clear [facility] Comment on above: Performed By: #### U A ####[place] [address] [place] [phone] Urine, color Yellow Normal Yellow [facility] Comment on above: Performed By: #### U A ####[place] [address] [address] [phone] Urine, epithelial cells in sediment SEE COMMENT Normal [facility] Comment on above: Result Comment: FewS quamous Epithelial Cells Performed By: #### U A ####[place] [address] [address] [phone] Urine, glucose presence Negative Normal Negative [facility] Comment on above: Performed By: #### U A ####[place] [address] [address] [phone] Urine, ketones presence 1+ Critically abnormal Negative [facility] Comment on above: Performed By: #### U A ####[place] [address] [address] [phone] Urine, nitrite presence Negative Normal Negative [facility] Comment on above: Performed By: #### U A ####[place] [address] [place] [phone] Urine, urobilinogen Normal Normal Normal [facility] Comment on above: Performed By: #### U A ####[place] [phone] WBC (Leukocytes) 10*3/uL Critically abnormal 0-5 [facility] Comment on above: Performed By: #### U A ####[place] [address] [address] [place] [phone] Urine Cultureon 09-12-2017 Urine culture, bacteria Sp. Request/Comment: - Specimen received in preservative Culture Result - No growth (<1,000 CFU/ml) Normal [facility] Comment on above: Performed By: #### U RCUL ####[place] [address] [address] [place] [phone] Vitamin D 25 Hydroxyon 09-12 Vitamin D 25 Hydroxy 38.6 ng/mL Normal 31.0-80.0 [facility] Comment on above: Result Comment: Clas sification of 25 [place] Vitamin D status:Insufficiency/Moderate Deficiency: < or = 30 ng/mLSufficiency/Optimal Levels: 31 to 80 ng/mLToxicity: > 100 ng/mLTest performed by chemiluminescent immunoassay. Performed By: #### I CA, CBCDIF, VITD, PTHI, CMP, URIC ####[facility] [address] [place], [place] [phone] SR-CT Abdomen/Pelvis w/o Con trast IMPORTon 09-07-2017 SR-CT Abdomen/Pelvis w/o Contrast IMPORT Images were obtained outside of [facility] [id number] Normal [facility] Vital Signs Date Time Vital Sign Value Performing Clinician Facility 10-16-2024 08:06-0500 Blood Pressure Location Rock LUJAN [facility] 10-16-2024 08:06-0500 Diastolic blood pressure 100 mm[Hg] Rock LUJAN [facility] 10-16-2024 08:06-0500 Heart rate 78 /min Rock LUJAN [facility] 10-16-2024 08:06-0500 Systolic blood pressure 163 mm[Hg] Rock LUJAN [facility] 03-20-2024 08:14-0400 Diastolic blood pressure 85 mm[Hg] Rock LUJAN [facility] 03-20-2024 08:14-0400 Heart rate 66 /min Rock LUJAN [facility] 03-20-2024 08:14-0400 Systolic blood pressure 146 mm[Hg] Rock LUJAN [facility] 08-23-2023 08:30-0500 Blood Pressure Location Laura Orzech [facility] 08-23-2023 08:30-0500 Diastolic blood pressure 91 mm[Hg] Laura Orzech [facility] 08-23-2023 08:30-0500 Heart rate 88 /min Laura Orzech [facility] 08-23-2023 08:30-0500 Respiratory rate 16 /min Laura Orzech [facility] 08-23-2023 08:30-0500 Systolic blood pressure 151 mm[Hg] Laura Orzech [facility] 08-07-2023 08:45-0500 Body height 172.72 cm Abigail Sanchez Other [employer] [facility] Other 08-07-2023 08:45-0500 Body mass index (BMI) [Ratio] 25.18 kg/m2 Abigail Sanchez Other [employer] [facility] Other 08-07-2023 08:45-0500 Body weight 75.12 kg Abigail Sanchez Other [employer] Other 08-07-2023 08:45-0500 Diastolic blood pressure 73 mm[Hg] Abigail Sanchez Other [employer] Other 08-07-2023 08:45-0500 SaO2% (BldA) [Mass fraction] 99 % Abigail Sanchez Other [employer] Other 08-07-2023 08:45-0500 Systolic blood pressure 165 mm[Hg] Abigail Sanchez Other [employer] Other 11-17-2022 09:30-0500 Body height 172.72 cm Abigail Sanchez Other [employer] Other 11-17-2022 09:30-0500 Body mass index (BMI) [Ratio] 27.82 kg/m2 Abigail Sanchez Other [employer] Other 11-17-2022 09:30-0500 Body weight 83.01 kg Abigail Sanchez Other [employer] Other 11-17-2022 09:30-0500 Diastolic blood pressure 82 mm[Hg] Abigail Sanchez Other [employer] Other 11-17-2022 09:30-0500 SaO2% (BldA) [Mass fraction] 97 % Abigail Sanchez Other [employer] Other 11-17-2022 09:30-0500 Systolic blood pressure 140 mm[Hg] Abigail Sanchez Other [employer] Other 07-26-2022 13:18-0400 Blood Pressure Location Dharmesh PETERSL [facility] [place] 07-26-2022 13:18-0400 Diastolic blood pressure 98 mm[Hg] Dharmesh NILL [facility] [place] 07-26-2022 13:18-0400 Heart rate 72 /min Dharmesh PETERSL [facility] 07-26-2022 13:18-0400 Respiratory rate 16 /min Dharmesh PETERSL [facility] [place] 07-26-2022 13:18-0400 Systolic blood pressure 138 mm[Hg] Dharmesh PETERSEmmanuelle [facility] [place] Encounters Encounter Date Encounter Type Care Provider Facility Start: 11-05-2025 ambulatory Rock LUJAN Facility :[facility] Start: 06-03-2025 ambulatory Rock LUJAN Facility : [facility] Start: 05-28-2025 Evaluation and management of inpatient SATISH AMADIO [facility] Start: 05-26-2025 Evaluation and management of inpatient CHRISTINA [facility] Start: 05-26-2025 Evaluation and management of inpatient CHRISTINA [facility] Start: 05-22-2025 Evaluation and management of inpatient EDUARDO Lola [facility] Start: 05-21-2025 Evaluation and management of inpatient SIMON COBIAN [facility] Start: 05-20-2025 Evaluation and management of inpatient EDUARDO Davila [facility] Start: 05-19-2025 Evaluation and management of inpatient EDUARDO Davila [facility] Start: 05-19-2025 Evaluation and management of inpatient EDUARDO Davila [facility] Start: 05-12-2025 Evaluation and management of inpatient EDUARDO Davila [facility] Start: 05-12-2025 End: 05-29-2025 Evaluation and management of inpatient GIANCARLO BANEGAS [facility] Start: 04-23-2025 End: 04-23-2025 ambulatory Rock LUJAN Facility:[facility] Start: 04-23-2025 End: 04-23-2025 Patient encounter procedure Rock LUJAN [facility] Start: 02-14-2025 End: 02-14-2025 ambulatory JOHN RUTHERFORDOURY [facility] Start: 01-30-2025 ambulatory SANJU [facility] Start: 01-30-2025 End: 01-30-2025 ambulatory ASHER BURNS [facility] Start: 01-13-2025 End: 01-13-2025 ambulatory [facility] Start: 12-20-2024 End: 12-20-2024 ambulatory [facility] Start: 11-08-2024 End: 11-08-2024 ambulatory [facility] Start: 10-16-2024 End: 10-16-2024 ambulatory Rock LUJAN Facility:[facility] Start: 10-16-2024 End: 10-16-2024 Patient encounter procedure Rock LUJAN [facility] Start: 03-20-2024 End: 03-20-2024 Patient encounter procedure oRck LUJAN [facility] Start: 08-23-2023 End: 08-23-2023 Patient encounter procedure Laura X Beliach [facility] Start: 08-11-2023 End: 08-11-2023 ambulatory Abigail Sanchez Other [employer] Other Start: 08-11-2023 Telephone encounter Abigail Sanchez [facility] Start: 08-07-2023 End: 08-07-2023 ambulatory Abigail Sanchez Other [employer] Other Start: 08-07-2023 Office outpatient vi sit 15 minutes Abigail Sanchez [facility] Start: 02-08-2023 End: 02-09-[address] ROCK LUJAN Facility: Start: 11-17-2022 End: 11-17-2022 ambulatory Abigail Sanchez Other [employer] Other Start: 11-17-2022 Encounter for other preprocedural examination Abigail Sanchez [facility] Start: 11-17-2022 Office outpatient vi sit 15 minutes Abigail Sanchez [facility] Start: 11-03-2022 End: 11-04-[address] DENISHA GARCIA Facility:[facility] Start: 08-31-2022 Encounter for preprocedural laboratory examination DR DHARMESH WALTERS . [facility] Start: 08-31-2022 End: 08-31-[address] DHARMESH WALTERS . Facility:[facility] Start: 08-26-2022 End: 08-27-[address] DHARMESH WALTERS . Facility:[facility] Start: 08-26-2022 End: 08-27-2022 Encounter for preprocedural laboratory examination DR DHARMESH WALTERS . Facility:[facility] Start: 07-26-2022 End: 07-26-2022 Patient encounter procedure Dharmesh WALTERS [facility] Start: 06-30-2022 Adult health examination Gricelda Sanchez Other [employer] Other Start: 06-28-2022 End: 06-29-[address] ABIGAIL SANCHEZ Facility:[facility] Start: 04-27-2022 End: 04-27-2022 Patient encounter procedure Rock LUJAN [facility] Start: 04-20-2022 End: 04-21-[address] ROCK LUJAN Facility:[facility] Start: 10-21-2017 End: 10-22-2017 Ambulatory ALEXA GARCIA [facility] Start: 10-13-2017 End: 10-13-2017 Ambulatory FELICIANO SCHROEDER [facility] Start: 10-11-2017 End: 10-13-2017 Ambulatory FELICIANO SCHROEDER [facility] Start: 09-12-2017 End: 09-12-2017 Ambulatory FELICIANO SCHROEDER [facility] Start: 09-12-2017 End: 09-18-2017 Ambulatory FELICIANO SCHROEDER [facility] Procedures Date Procedure Procedure Detail Performing Clinician Start: 02-14-2025 Follow-up visit ASHER BURNS Start: 01-13-2025 Follow-up visit ASHER BURNS Start: 11-08-2024 Follow-up visit ASHER BURNS Start: 08-31-[address] [facility] [employer] [facility] Start: 08-31-2022 Esophagogastroduodenoscopy Laura [employer] Start: 04-12-2019 Screening for malignant neoplasm of prostate Abigail Sanchez Other Start: 10-11-2017 Removal of calculus of renal pelvis through percutaneous nephrostomy Rock Masher Start: 10-02-2017 Cystoscopic removal of ureteric stent Rock Masher Start: 01-13-2016 Cysto, right RGP, right JJ stent Rock Masher Start: 09-16-2015 Neck Surgery Rock Masher Bilateral hernia repair Martin hernandez Masher Bilateral inguinal hernia repair Dharmesh PETERSL Cholecystectomy Rock Masher Colonoscopy Dharmesh NILL History of surgical procedure on cervical spine Dharmesh NILL History of surgical procedure on cervical spine Dharmesh NILL Sinus Surgery Rock Masher Immunizations Immunization Date Immunization Notes Care Provider [facility] 08-16-2021 COVID-19 Vaccine Pfizer - Documentation Purposes Only Abigail Sanchez Other [facility] 01-07-2021 COVID-19 Vaccine Pfizer - Documentation Purposes Only Abigail Sanchez Other [facility] 12-17-2020 SARS-CoV-2 (COVID-19 ) mRNA BNT-162b2 vax [employer] [facility] NEGATED: Highlighted row has not occurred!10-16-2024 influenza virus vaccine, unspecified formulation Rock LUJAN [facility] NEGATED: Highlighted row has not occurred!08-23-2023 influenza virus vaccine, unspecified formulation Laura Darling [facility] Payers Date Payer Category Payer Medicare [id number] 1961 Medicare [id number] 2. [id number] 1950 Unknown [id number] 2.16.84 [id number] 1948 Unknown [id number] 2.16.84 [id number] 1948 Unknown [id number] 2.16.84 [id number] 1948 Unknown [id number] 2.16.84 [id number] 1948 Unknown [id number] 2.16.84 [id number] 1948 Unknown [id number] 2.16.84 [id number] 1948 Unknown [id number] 2.16.8 [id number] 1948 Unknown [id number] 2.16.8 [id number] 1948 Unknown [id number] 2.16.8 [id number] 1948 Unknown [id number] 2.16.8 [id number] Social History Date Type Detail Facility Start: 04-27-2022 End: 10-16-2024 Tobacco smoking status Never smoked tobacco (finding) [facility] Tobacco smoking status Never [facility] Sex Assigned At Male [facility] Sexual Orientation [facility] Start: 12-20-2018 Sex Male (finding) [facility] Functional Status Date Assessment Result Facility 10-16-2024 Functional Status N/A [facility] 03-20-2024 Functional Status N/A [facility] 08-23-2023 Functional Status N/A [facility] 07-26-2022 Functional Status N/A [facility] Functional Status N/A [facility] [employer] Clinical Notes 04-27-2022 to 06-03-2025 Note Date & Type Note Facility 06-03-2025 Note Patient Education Urology Acute Urinary Retention, Male Acute urinary retention is a condition in which a person is unable to pass urine or can only pass a little urine. This condition can happen suddenly and last for a short time. If left untreated, it can become long-term (chronic) and result in kidney damage or other serious complications. What are the causes? This condition may be caused by: ??? Obstruction or narrowing of the tube that drains the bladder (urethra). This may be caused by surgery, problems with nearby organs, or injury to the bladder or urethra. ??? Problems with the nerves in the bladder. ??? Tumors in the area of the pelvis, bladder, or urethra. ??? Certain medicines. ??? Bladder or urinary tract infection. ??? Constipation. What increases the risk? This condition is more likely to develop in older men. As men age, their prostate may become larger and may start to press or squeeze on the bladder or the urethra. Other chronic health conditions can increase the risk of acute urinary retention. These include: ??? Diseases such as multiple sclerosis. ??? Spinal cord injuries. ??? Diabetes. ??? Degenerative cognitive conditions, such as delirium or dementia. ??? Psychological conditions. A man may hold his urine due to trauma or because he does not want to use the bathroom. What are the signs or symptoms? Symptoms of this condition include: ??? Trouble urinating. ??? Pain in the lower abdomen. How is this diagnosed? This condition is diagnosed based on a physical exam and your medical history. You may also have other tests, including: ??? An ultrasound of the bladder or kidneys or both. ??? Blood tests. ??? A urine analysis. ??? Additional tests may be needed, such as a CT scan, MRI, and kidney or bladder function tests. How is this treated? Treatment for this condition may include: ??? Medicines. ??? Placing a thin, sterile tube (catheter) into the bladder to drain urine out of the body. This is called an indwelling urinary catheter. After it is inserted, the catheter is held in place with a small balloon that is filled with sterile water. Urine drains from the catheter into a collection bag outside of the body. ??? Behavioral therapy. ??? Treatment for other conditions. If needed, you may be treated in the hospital for kidney function problems or to manage other complications. Follow these instructions at home: Medicines ??? Take nrqh-ldf-ceqhhth and prescription medicines only as told by your health care provider. Avoid certain medicines, such as decongestants, antihistamines, and some prescription medicines. Do not take any medicine unless your health care provider approves. ??? If you were prescribed an antibiotic medicine, take it as told by your health care provider. Do not stop using the antibiotic even if you start to feel better. General instructions ??? Do not use any products that contain nicotine or tobacco. These products include cigarettes, chewing tobacco, and vaping devices, such as e-cigarettes. If you need help quitting, ask your health care provider. ??? Drink enough fluid to keep your urine pale yellow. ??? If you have an indwelling urinary catheter, follow the instructions from your health care provider. ??? Monitor any changes in your symptoms. Tell your health care provider about any changes. ??? If instructed, monitor your blood pressure at home. Report changes as told by your health care provider. ??? Keep all follow-up visits. This is important. Contact a health care provider if: ??? You have uncomfortable bladder contractions that you cannot control (spasms). ??? You leak urine with the spasms. Get help right away if: ??? You have chills or a fever. ??? You have blood in your urine. ??? You have a catheter and the following happens: ? Your catheter stops draining urine. ? Your catheter falls out. Summary ??? Acute urinary retention is a condition in which a person is unable to pass urine or can only pass a little urine. If left untreated, this condition can result in kidney damage or other serious complications. ??? An enlarged prostate may cause this condition. As men age, their prostate gland may become larger and may press or squeeze on the bladder or the urethra. ??? Treatment for this condition may include medicines and placement of an indwelling urinary catheter. ??? Monitor any changes in your symptoms. Tell your health care provider about any changes. This information is not intended to replace advice given to you by your health care provider. Make sure you discuss any questions you have with your health care provider. Document Revised: 06/09/2021 Document Reviewed: 06/09/2021 [employer] Only Patient Education ? 2023 [employer] [facility] 05-29-2025 Note [facility] 05-29-2025 Note [facility] 05-29-2025 Note [facility] 05-28-2025 Note [facility] 05-28-2025 Note [facility] 05-28-2025 Note [facility] 05-28-2025 Note [facility] 05-27-2025 Note [facility] 05-27-2025 Note [facility] 05-27-2025 Note [facility] 05-27-2025 Note [facility] 05-26-2025 Note [facility] 05-26-2025 Note [facility] 05-26-2025 Note [facility] 05-26-2025 Note [facility] 05-25-2025 Note [facility] 05-25-2025 Note [facility] 05-24-2025 Note [facility] 05-23-2025 Note [facility] 05-23-2025 Note [facility] 05-23-2025 Note [facility] 05-22-2025 Note Awaiting medical jerome alton, pre-cert valid until 05/25 [facility] 05-22-2025 Note [facility] 05-22-2025 Note Updates sent to [facility]. Patient continues to have further work up and has not been medically cleared for discharge. [facility] 05-22-2025 Note [facility] 05-22-2025 Note [facility] 05-22-2025 Note [facility] 05-21-2025 Note SW advised that yasmeen ent is still not medically ready. He has went for a 2nd CT scan to see what might be going on due to abnormal labs. SUSIE advised [place] [facility] 05-21-2025 Note [facility] 05-21-2025 Note [facility] 05-21-2025 Note [facility] 05-20-2025 Note [facility] 05-20-2025 Note [facility] 05-20-2025 Note Patient precert rec' d. AVS sent to [facility]. Packet made. 7000 completed. Patient is letting his family know. RN to call report. No other needs known to this worker. [facility] 05-20-2025 Note [facility] 05-20-2025 Note [facility] 05-20-2025 Note [facility] 05-19-2025 Note [facility] 05-19-2025 Note [facility] 05-19-2025 Note [facility] 05-19-2025 Note [facility] 05-19-2025 Note [facility] 05-19-2025 Note [facility] 05-19-2025 Note [facility] 05-18-2025 Note [facility] 05-18-2025 Note [facility] 05-17-2025 Note [facility] 05-16-2025 Note [facility] 05-16-2025 Note [facility] 05-16-2025 Note [facility] 05-15-2025 Note [facility] 05-15-2025 Note [facility] 05-14-2025 Note [facility] 05-14-2025 Note [facility] 05-13-2025 Note [facility] 05-13-2025 Note [facility] 05-13-2025 Note Respiratory Therapy Note Patient is on 1L of oxygen SPO2 95% Lungs are diminished and clear. No chest X-ray of CT of chest done. No interventions at this time. [facility] 05-13-2025 Note Spoke with senior an brown resident Marjorie about increasing heart rate lopressor order for hr greater then 120 [facility] 05-13-2025 Note Peripheral IV Date/Time: 05/13/2025 1:24 AM Inserted by: Colin Miller MD Placement Needle size: 18 G Laterality: right Location: hand Site prep: alcohol Technique: anatomical landmarks Attempts: 1 [facility] 05-13-2025 Note Peripheral IV Date/Time: 05/13/2025 1:02 AM Inserted by: Colin Miller MD Placement Needle size: 18 G Laterality: right Location: forearm Site prep: alcohol Technique: anatomical landmarks Attempts: 1 [facility] 05-13-2025 Note [facility] 05-13-2025 Note [facility] 05-12-2025 Note [facility] 04-23-2025 Hospital Discharge instructions Patient Education 04/23/2025 09:03:43 Prostate Cancer Screening Prostate Cancer Screening Prostate [...] treatment? Where to find more information [employer] [place] [employer]: www.cancer.org [place] [employer]: www.auanet.org Contact a health care [...] provider. Document Revised: 03/14/2022 Document Reviewed: 03/14/2022 [employer] Patient Education 2023 [employer]. Follow Up Care 10/16/2024 08:35:29 With:KARLEE GA, Rock Pollock, URL Address: [facility] [employer] [place] [id number]- When: Unknown [facility] 04-23-2025 Note Patient Education Oncology Prostate Cancer Screening [...] Where to find more information ??? The [place] [employer]: www.cancer.org ??? [place] [employer]: www.auanet.org Contact a health care [...] The prostate gland (more content not included)... [facility] 02-14-2025 Note [facility] 01-30-2025 Note [facility] 01-30-2025 Note This report has been cancelled. [facility] 01-13-2025 Note [facility] 11-08-2024 Note [facility] 10-16-2024 Hospital Discharge instructions Patient Education 10/16/2024 [...] treatment? Where to find more information The [place] [employer]: www.cancer.org [employer]: www.auanet.org Contact a health care [...] provider. Document Revised: 03/14/2022 Document Reviewed: 03/14/2022 [employer] Patient Education 2023 Med fusion. Follow Up Care 03/20/2024 09:04:03 With:KARLEE GA, Rock Pollock, URL Address: [place] [address] [address]- When: Unknown [facility] 10-16-2024 Note Patient Education Oncology Prostate Cancer [...] Where to find more information ??? The [place] [employer]: www.cancer.org ??? [place] [employer]: www.auanet.org Contact a health care [...] The prostate gland (more content not included)... [facility] 03-20-2024 Hospital Discharge instructions Patient Education [...] urethra. Follow these instructions at home: Take ybtn-qod-zdkfkok and prescription medicines only as told by [...] provider. Document Revised: 04/06/2022 Document Reviewed: 04/06/2022 [employer] Only Patient Education 2022 [employer] Follow Up Care 08/23/2023 09:06:17 With:KARLEE GA, Rock Pollock, URL Address: [address] [place], [place] [id number]- When: Unknown [facility] 08-23-2023 Hospital Discharge instructions Patient Education 08/23/2023 [...] urethra. Follow these instructions at home: Take tnvs-bqh-seudyyt and prescription medicines only as told by [...] provider. Document Revised: 04/06/2022 Document Reviewed: 04/06/2022 [employer] Patient Education 2022 Med fusion. 08/23/2023 11:10:20 Prostate Cancer Screening Prostate Cancer [...] treatment? Where to find more information The [place] [employer]: www.cancer.org [employer]: www.auanet.org Contact a health care [...] provider. Document Revised: 03/14/2022 Document Reviewed: 03/14/2022 [employer] Patient Education 2022 [employer] Follow Up Care 02/15/2023 12:04:24 With:KARLEE GA, Rock Pollock, URL Address: [address] [address]- When: Unknown [facility] 08-07-2023 Evaluation note Encounter Date Diagnosis Assessment [...] Has passed the quarantine dates. Rest, hydrate. [employer] Other 02-16-2023 Evaluation note* Encounter Date Diagnosis [...] juncture. Nov, Essential hypertension (ICD-10 - I10) [employer] Other 11-30-2022 NoteOP Note OPERATION DATE: 08/31/2022 [...] year after that. CC: Abigail Sanchez M.D.[id number] NoteOPERATIVE NOTE OPERATION DATE: 08/26/2022 PREOPERATIVE DIAGNOSIS: [...] in good condition. CC: Abigail Sanchez M.D.[facility] [id number] NoteOPERATIVE NOTE OPERATION DATE: 08/26/2022 PREOPERATIVE DIAGNOSIS: [...] one year after that. CC: Abigail Sanchez M.D.[facility]07-27-2022 Hospital Discharge instructions Patient Education [...] urethra. Follow these instructions at home: Take aqtw-muk-rbyofdp and prescription medicines only as told by [...] 09/18/2006 Document Revised: 08/13/2019 Document Reviewed: 10/23/2017 [employer] Patient Education 2020 [employer] Follow Up Care 10/25/2021 11:53:28 With:Rock LUJAN MD, URL Address: [address] [place] [id number]- When:Within 6 Month(s) [facility] evaluation + Plan note Future Appointments Appointment Date:10/17/2022 08:00:00 AM Scheduled Provider:Rock LUJAN MD Location:[facility] Appointment Type:URO Office Visit Diagnostic Tests Pending * PSA Free & Total 09/01/22 [facility] evaluation + Plan note Future Appointments Appointment Date:10/17/2022 08:00:00 AM Scheduled Provider:Rock LUJAN MD Location:[facility] Appointment Type:URO Office Visit General Surgery [place] Evaluation + Plan note Future Appointments Appointment Date:03/20/2024 08:00:00 AM Scheduled Provider:Rock LUJAN MD Location:[facility] Appointment Type:URO Office Visit Diagnostic Tests Pending * PSA Free & Total 08/23/23 [facility] evaluation + Plan note Future Appointments Appointment Date:10/16/2024 08:00:00 AM Scheduled Provider:Rock LUJAN MD Location:[facility] Appointment Type:URO Office Visit Diagnostic Tests Pending * PSA Free & Total 07/02/24 [facility] Evaluation + Plan note Future Appointments Appointment Date:04/23/2025 08:45:00 AM Scheduled Provider:Rock LUJAN MD Location:[facility] Appointment Type:URO Office Visit Diagnostic Tests Pending * PSA Free & Total 03/02/25 [facility] Evaluation + Plan note Future Appointments Appointment Date:11/05/2025 08:15:00 AM Scheduled Provider:Rock LUJAN MD Location:[facility] Appointment Type:URO Office Visit Diagnostic Tests Pending * PSA Free & Total 09/01/25 [facility] Evaluation [facility]No [facility] [employer] Other History general Narrative - Reported* Type Description Date Medical History Iron deficiency anemia Medical History Fatigue Medical History Dyspnea on exertion Medical History Essential hypertension Surgical History CHOLECYSTECTOMY Surgical History CERVICAL DISC SURGERY Surgical History 2 INGUINAL HERNIA SURGERY Hospitalization History SEE SURGICAL HX [employer] Other History general Narrative - Reported* Type Description Date Medical History Iron deficiency anemia Medical History Fatigue Medical History Dyspnea on exertion Medical History Essential hypertension Surgical History CHOLECYSTECTOMY Surgical History CERVICAL DISC SURGERY Surgical History 2 INGUINAL HERNIA SURGERY Surgical History Colonoscopy 2022 Surgical History Bowel resection 11/2022 Hospitalization History SEE SURGICAL HX [employer] Other Hospital course Narrative No data available for this section [facility] Discharge instructions No data available for this section General Surgery [facility] Progress note No data available for this section [facility] [employer] Summary Purpose Family History No Family History Records FoundNo Family History Records FoundNo Family History Records Found No data available for this section No data available for this section No data available for this section No data available for this section No Family History Records FoundNo Family History Records Found Advance Directives No Advanced Directives Records FoundNo Advanced Directives Records FoundNo Advanced Directives Records FoundNo Advanced Directives Records FoundNo Advanced Directives Records Found Additional Source Comments (unrecognized sect ion and content) No Status Records FoundNo Status Records FoundNo Status Records FoundNo Status Records FoundNo Status Records Found INFORMATION SOURCE (unrecogn ized section and content) DATE CREATED AUTHOR 03/26/2018 [facility] DATE CREATED AUTHOR AUTHOR'S ORGANIZ ATANIBAL 03/31/2022 [facility] DATE CREATED AUTHOR AUTHOR'S ORGANIZ ATION [facility]/12[facility] [facility] DATE CREATED AUTHOR AUTHOR'S ORGANIZ ATION 06/02/2025 [facility] DATE CREATED AUTHOR AUTHOR'S ORGANIZ ATION 06/03/2025 [facility] Beas[facility] Care Team (unrecognized sect ion and content) Personnel Name: ABIGAIL SANCHEZ MD Address: [address] [place] [address] Personnel Name: ABIGAIL SANCHEZ MD Address: Address: [address] [place] [address] Personnel Name: ABIGAIL SANCHEZ MD Address: Address: [address] [place] [address] Personnel Name: ABIGAIL SANCHEZ MD Address: Address: [address] [place] [address] Personnel Name: ABIGAIL SANCHEZ MD Address: Address: [address] [place] [address] Personnel Name: ABIGAIL SANCHEZ MD Address: [address] [place] [address] [employer]: REASON FOR VISIT (unrecogniz ed section and [...] BE BASED ON THE PRIMARY CLINICAL RECORDS. [employer] provides no warranty or guarantee of the accuracy or completeness of information in this document.
--- NOTE | 2025-06-03 21:50 | ED.MALEGU1 ---
HPI - Male Genitourinary General Chief complaint: Urogenital-Male Stated complaint: Urine Retention Time Seen by Provider: 06/03/25 21:36 Source: patient Mode of arrival: walk-in History of Present Illness HPI Narrative: cc -acute urinary retention 74-year-old male who underwent bowel surgery for acute obstruction at [facility], presents with complaint of suprapubic abdominal pain and difficulty passing urine. He said that they placed a urinary catheter shortly after he was diagnosed with bowel obstruction in mid May. He underwent bowel repair but they had difficulty getting his bladder to relax enough to release urine after removal of urethral catheter. He said they had took out and then reinserted a urinary catheter 5 different times during his hospitalization. This was due to an inability to pass urine. He was discharged home with a urinary catheter and then followed up this morning with Dr. Lujan at the office number to get that catheter removed. He said afterward -about 2 hours later -he was able to pass small amounts of urine but as the day progressed into the evening he told me that it required more force on his part to pass urine and he was passing smaller and smaller amounts. Now he presents with acute urinary retention, suprapubic pain and asks us to insert a Christian catheter. He declined offer for straight cath to drain his bladder. Related Data Home Medications ?Medication ?Instructions ?Recorded ?Confirmed tamsulosin 0.4 mg capsule 0.4 mg PO BID 07/26/23 06/03/25 losartan 50 mg tablet 50 mg PO DAILY 05/12/25 06/03/25 Allergies Allergy/AdvReac Type Severity Reaction Status Date / Time No Known Drug Allergies Allergy Verified 05/12/25 10:57 [facility] Social History Smoking status: Never smoker Little interest or pleasure in doing things: not at all Feeling down, depressed, or hopeless: not at all Exam Narrative Exam Narrative: Nurses notes and vital signs reviewed and patient is not hypoxic. afebrile General: Well-appearing and in no apparent distress. Skin: Warm, dry, no pallor noted. Eye: Pupils are equal, round and EOMI. No scleral icterus. Ears, Nose, Mouth, and Throat: Oral mucosa is moist Cardiovascular: Regular Rate and Rhythm without murmur, gallop or rub. Respiratory: No accessory muscle use or respiratory distress. Lungs are clear to auscultation, no wheezing, rales or rhonchi Back: No CVA tenderness Musculoskeletal: normal ROM GI: Abdomen is soft, non-distended. Normal bowel sounds. He has ABD pads that cover the anterior midline surgical incision. Suprapubic tenderness to palpation. No rebound, guarding, or rigidity noted. Neurological: A&O x4. Moves all extremities. Sensation intact. Psychiatric: Cooperative and interactive. Normal mood and affect. Constitutional Vital Signs, click to edit/add: Last Vital Signs Temp 98.4 F 06/03/25 21:34 Pulse 98 H 06/03/25 21:34 Resp 20 06/03/25 21:34 BP 158/99 H 06/03/25 21:34 Pulse Ox 97 06/03/25 21:34 O2 Del Method Room Air 06/03/25 21:34 Course Vital Signs Vital signs: Vital Signs Temperature 98.4 F 06/03/25 21:34 Pulse Rate 98 H 06/03/25 21:34 Respiratory Rate 20 06/03/25 21:34 Blood Pressure 158/99 H 06/03/25 21:34 Pulse Oximetry 97 06/03/25 21:34 Oxygen Delivery Method Room Air 06/03/25 21:34 Temperature 98.4 F 06/03/25 21:34 Pulse Rate 98 H 06/03/25 21:34 Respiratory Rate 20 06/03/25 21:34 Blood Pressure 158/99 H 06/03/25 21:34 Pulse Oximetry 97 06/03/25 21:34 Oxygen Delivery Method Room Air 06/03/25 21:34 MDM - Male Genitourinary MDM Narrative Medical decision making narrative: Patient presents with acute urinary retention after history of urethral catheter insertion with need for repeat insertion due to urinary retention during his course of treatment for bowel obstruction and subsequent surgical intervention. After getting the urinary catheter removed this morning in Dr. Lujan's office, the patient has noted a steady decrease in the amount of urine he is able to pass and a steady increase in the amount of force he is required to use in order to pass that urine. He declined offer for straight cath to drain his bladder. He asked for Christian catheter to be placed. Urethral catheter was ordered to be placed in this patient - see ED nurse notes for details. Pt discharged home and instructed to call Urologist's office for follow up. Discharge Plan Discharge Chief Complaint: Urogenital-Male Clinical Impression: Acute retention of urine Patient Disposition: Home, Self-Care Time of Disposition Decision: 22:20 Prescriptions / Home Meds: No Action tamsulosin 0.4 mg capsule 0.4 mg PO BID losartan 50 mg tablet 50 mg PO DAILY Print Language: Uzbek Instructions: Urinary Retention in Men (ED), How to Change a Catheter Drainage Bag (DC) Referrals: Raffi Lujan MD [Physician] - As soon as possible
== END 2025-06-03 22:38 | disposition home or self-care (01) ==
PROVIDERS: Emergency Provider Emergency Medicine; PCP Family Medicine
DX: R33.9 Retention of urine, unspecified (principal); Z98.890 Other specified postprocedural states
CPT/HCPCS: 99284

== ENCOUNTER 2025-06-04 14:30 | Outpatient (REF) | payer MEDICARE, SELFPAY ==
[2025-06-04 14:57] LABS: Hematocrit 27.4 % (42.0-54.0); Hemoglobin 9.2 g/dL (14.0-18.0); Immature Granulocytes Abs Auto 0.04 10^3/uL (0.00-0.03); Immature Granulocytes Pct Auto 0.4 % (0.0-0.5); Lymphocytes Absolute Auto 2.0 10^3/uL (1.2-3.8); Mean Corpuscular HGB Conc 33.6 g/dL (29.9-35.2); Mean Corpuscular Hemoglobin 32.1 pg (25.9-34.0); Mean Corpuscular Volume 95.5 fL (80.0-94.0); Platelet Count 233 10^3/uL (150-450); Red Blood Count 2.87 10^6/uL (4.70-6.10); White Blood Count 9.6 10^3/uL (4.0-11.0)
[2025-06-04 15:20] LABS: Blood Urea Nitrogen 8.0 mg/dL (7.0-18.0); Estimated GFR (African America >60 (>=60 mL/min/1.73m^2); Estimated GFR (Non-African Ame >60 (>=60 mL/min/1.73m^2)
--- OUTSIDE RECORDS SUMMARY | 2025-06-04 18:41 | XMS_ITS | CCD ---
Author Organization [facility] Providers Care Ux Visual Designer Name Role Phone SCHROEDER, FELICIANO Unavailable Unavailable RICE, CLEVELAND W Unavailable Unavailable RICE, CLEVELAND W Unavailable Unavailable SCHROEDER, FELICIANO Unavailable Unavailable SCHROEDER, FELICIANO Unavailable Unavailable SCHROEDER, FELICIANO Unavailable Unavailable SCHROEDER, FELICIANO Unavailable Unavailable SCHROEDER, FELICIANO Unavailable Unavailable ALEXA GARCIA Unavailable Unavailable SCHROEDER, FELICIANO Unavailable Unavailable ABIGAIL SANCHEZ Primary Care Physician [phone] Daniel, Abigail Unavailable DANIEL, DR ABIGAIL Trejo Admitting Unavailable SANCHEZ, DR ABIGAIL Trejo Attending Unavailable SANCHEZ, DR ABIGAIL Trejo Primary Care Unavailable SANCHEZ, DR ABIGAIL Trejo Consulting Unavailable GARCIA, DR DENNY Admitting Unavailable GARCIA, DR DENNY Attending Unavailable SANCHEZ, DR ABIGAIL Trejo Primary Care Unavailable KINGSTON, DR OLIVER Maguire Consulting Unavailable GARCIA, DR DENNY Consulting Unavailable COOK, DR ROCK Pollock Admitting Unavailable COOK, DR ROCK Pollock Attending Unavailable SANCHEZ, DR ABIGAIL Trejo Primary Care Unavailable COOK, DR ROCK Pollock Consulting Unavailable NILL ., DR BARROSO Admitting Unavailable NILL ., DR BARROSO Attending Unavailable SANCHEZ, DR ABIGAIL Trejo Primary Care Unavailable NILL ., DR BARROSO Consulting Unavailable RODRIGUEZ, RENÉ Consulting Unavailable NILL ., DR BARROSO [...] Attending Unavailable COOK, Rock Pollock Attending Unavailable ASHER BURNS Referring Unavailable BOYKIN-BUKOWIEC, CHRISTINA Referring Unavailabl e BOYKIN-BUKOWIEC, CHRISTINA Referring Unavailabl e AMSATISH MENARD Referring Unavailable EDUARDO PEARSON Referring Unavailable EDUARDO PEARSON Referring Unavailable EDUARDO PEARSON Referring Unavailable EDUARDO PEARSON Referring Unavailable SANJU HOWARD Attending Unavailmonica e JOHN PLASENCIA Referring Unavailable JOHN PLASENCIA Attending Unavailable GIANCARLO BANEGAS Referring Unavailable EDUARDO PEARSON Admitting Unavailable EDUARDO PEARSON Attending Unavailable JOHN PLASENCIA Attending Unavailable JOHN PLASENCIA Attending Unavailable MCQUILLINSIMON Referring Unavailable EDUARDO PEARSON Referring Unavailable JOHN PLASENCIA Referring Unavailable Medications Current Medications Medication Drug Class(es) Dates Sig (Normalized) Sig (Original) amoxicillin 875 mg / clavulanate 125 mg oral tablet (2 sources) Penicillin-class Antibacterial Start: 08-07-2023 take 1 tablet by mouth every twelve hours Amoxicillin-Pot Clavulanate 875-125 MG 1 tablet Orally every 12 hrs for 10 day(s) Aug, Active Daily Multiple for Men 50+ oral tablet (7 sources) Start: 06-15-2020 take 1 tablet by [...] BID, # 14 tab(s), Refills(s) 0, Pharmacy: [facility] #72, 177, cm, 02/15/23 11:48:00 EDT, Height/Length Dosing, 78.9, kg, 02/15/23 11:48:00 EDT, Weight Dosing Start Date: 02/15/23 Status: Ordered Iron (2 sources) Start: 04-23-2025 Iron Iron, 65 mg Start Date: 04/23/25 Status: Ordered Repeat number: 1 Psyllium (5 sources) Start: 02-15-2023 Metamucil Oral, BID Start Date: 02/15/23 Status: Ordered Repeat number: 1 Start: 02-15-2023 Metamucil Oral , BID Start Date: 02/15/23 Status: Ordered See instructions (1 source) Start: 09-09-2017 See instructio bibi See instructions, CBC with differential on 09/18/2017 and follow up with PCP/Urologist. Diagnosis Right ureteric stone/UTI, Print Requisition, Supply Start Date: 09/09/17 Status: Ordered tamsulosin hydrochloride 0.4 mg oral capsule (10 sources) alpha-Adrenerg ic Gordon Start: 01-01-2025 take 1 capsule by mouth twice daily tamsulosin 0.4 mg Cap 0.4 mg = 1 cap(s), Oral, BID, # 180 cap(s), Refills(s) 3, Pharmacy: [facility] #72, 177, cm, 10/16/24 8:08:00 EST, Height/Length Dosing, 78, kg, 10/16/24 8:08:00 EST, Weight Dosing Start Date: 01/01/25 Status: Ordered Quantity: 180.0 Unit: cap(s) Repeat number: 4 Start: 01-09-2024 take 1 capsule by [facility] twice daily tamsulosin 0.4 mg Cap 0.4 mg = 1 cap(s), Oral, BID, # 180 cap(s), Refills(s) 3, Pharmacy: [facility] #72, 177, cm, 08/23/23 8:44:00 EST, Height/Length Dosing, 78.9, kg, 08/23/23 8:44:00 EST, Weight Dosing Start Date: 01/09/24 Status: Ordered Start: 01-12-2023 take 1 capsule by [facility] twice daily tamsulosin 0.4 mg Cap 0.4 mg = 1 cap(s), Oral, BID, # 180 cap(s), Refills(s) 3, Pharmacy: [facility] #72, 177, cm, 07/26/22 13:27:00 EDT, Height/Length Dosing, 87.5, kg, 07/26/22 13:27:00 EDT, Weight Dosing Start Date: 01/12/23 Status: Ordered Start: 01-05-2022 take 1 capsule by [facility] twice daily tamsulosin 0.4 mg Cap 0.4 mg = 1 cap(s), Oral, BID, # 180 cap(s), Refills(s) 3, Pharmacy: [facility] #72, 177, cm, 10/25/21 11:30:00 EST, Height/Length Dosing, 78.9, kg, 10/25/21 11:30:00 EST, Weight Dosing Start Date: 01/05/22 Status: Ordered take 1 capsule by [facility] every twenty-four hours Tamsulosin HCl 0.4 MG 1 capsule Orally Once a day Active Completed/Discontinued Medications Medication Drug Class(es) Dates Sig (Normalized) Sig (Original) losartan potassium 25 mg oral tablet (10 sources) Angiotensin 2 Receptor Gordon Start: 01-12-2016 take 1 tablet by mouth once daily losartan 25 mg Tab 90 EA, TAKE 1 TABLET BY MOUTH DAILY, Refills(s) 0 Start Date: 07/18/22 Status: Ordered Repeat number: 1 take 1 tablet by [facility] every twelve hours Losartan Potassium 25 MG 1 tablet Orally twice a day Active Problems Active Problems Problem Classification Problem Date Documented Date Episodic/Chronic Abdominal hernia (4 sources) Diaphragmatic hernia without obstruction or gangrene; [...] Onset: 11-08-2024 Chronic Deficiency and other anemia (14 sources) Iron deficiency anemia; Translations: [Iron deficiency anemia, unspecified] 07-18-2022 Episodic Diseases of white blood cells (2 sources) Elevated white blood cell count, unspecified; Translations: [Elevated white blood cell count, unspecified] Onset: 11-08-2024 Chronic Disorders of lipid metabolism (10 sources) Very low density lipoprotinemia; Translations: [Pure hypercholesterolemia, unspecified] Onset: 11-08-2024 07-18-2022 Chronic Diverticulosis and diverticulitis (15 sources) Diverticulitis of intestine, part unspecified, without perforation or abscess without bleeding; Translations: [Diverticulosis of sigmoid colon] Onset: 10-19-2022 Chronic Essential hypertension (18 sources) Essential (primary) hypertension; Translations: [Hypertensive disorder] [...] Chronic 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 (11 sources) Epididymitis; Translations: [Epididymitis] Onset: 08-23-2023 Episodic Intestinal obstruction without hernia (2 sources) Unspecified intestinal obstruction, unspecified as to partial versus complete obstruction; Translations: [Unspecified intestinal obstruction, unspecified as to partial versus complete obstruction] Onset: 05-12-2025 Episodic Malaise and fatigue (14 sources) Asthenia; Translations: [Fatigue] Onset: 11-08-2024 06-15-2020 [...] 11-08-2024 Episodic Other and unspecified benign neoplasm (5 sources) Adenomatous polyp of colon 09-13-2022 Episodic [...] Episodic Other nutritional; endocrine; and metabolic disorders (6 sources) Overweight in adulthood with body mass [...] Onset: 11-08-2024 Episodic Other upper respiratory disease (8 sources) Seasonal allergic rhinitis; Translations: [Other seasonal [...] Spondylosis; intervertebral disc disorders; other back problems (9 sources) Degeneration of cervical intervertebral disc; Translations: [Other cervical disc degeneration, unspecified cervical region] Onset: 11-08-2024 01-13-2016 Chronic Unclassified (1 source) Unknown / UNK(Unknown) Onset: 09-12-2017 Unclassified (1 source) CONTACT W/AND (SUSP) EXPOS COVID-19; Translations: [CONTACT W/AND (SUSP) EXPOS COVID-19] Onset: 08-31-2022 Unclassified (1 source) Personal history of colon polyps, unspecified; Translations: [Personal history of colon polyps, unspecified] Onset: 11-08-2024 Urinary tract infections (7 sources) Urinary tract infectious disease 06-15-2020 Episodic Past or Other Problems Problem Classification Problem Date Documented Da te Episodic/Chronic Deficiency and other anemia (4 sources) Iron deficiency anemia, unspecified; Translations: [IRON DEFICIENCY ANEMIA UNSPECIFIED] Onset: 08-31-2022 Episodic Gastritis and duodenitis (1 source) Gastritis, unspecified, without bleeding; Translations: [GASTRITIS UNS WITHOUT BLEEDING] Onset: 09-07-2022 Episodic Other aftercare (1 source) Other detention (current) drug therapy; Translations: [OTH [facility] CURRENT DRUG THERAPY] Onset: 09-07-2022 Episodic Other [...] Rock LUJAN MD Where: [facility] [address], [address] [place] [address]- You Need to Schedule the Following Appointments Follow Up with Rock LUJAN MD, URL When: Where: [address] [facility] [address] [place] [address]- Medications What How Much When Instructions Unchanged [...] m (more content not included)... Normal [facility] Urology Office/Clinic Noteon 06-03-2025 Urology Office/Clinic Note Urology Office/Clinic Note Chief Complaint F/u to discuss cath removal HPI Staff Pt had a bowel resection 05/12/12 at [facility]. Catheter was placed and removed a couple of times. Each time removed pt was unable to void on his own. An indwelling cath was placed this past Monday and was left in. He is here to discuss cath removal today. Pt states he had no problem emptying his bladder before the procedure at [facility]. Dx: elevated PSA (PSA due in Oct [...] UR after bowel resection on 05/12/25 at [facility], catheter was placed. 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 Lujan on (more content not included)... Normal [facility] Comment on above: Result Comment: Elec tronically Signed By: Rock LUJAN MD\.br\Date and Time Signed: 06/03/25 10:08 EDT\.br\Electronically Co-Signed By: Ale Pelaez\.br\Date and Time Co-Signed: 06/03/25 10:06 EDT Orders Onlyon 05-30-2025 Orders Only Normal [facility] 30on 05-29-2025 30 Normal [facility] BASIC METABOLIC PANELon 08- Anion gap [Moles/Vol] 9 mmol/L Normal 7-20 [facility] Comment on above: Performed By: #### L [id number] ####[facility] ([facility])[address] [place] [address] Calcium [Mass/Vol] 8.1 mg/dL Low 8.6-10.3 [facility] Comment on above: Performed By: #### L [id number] ####[facility] ([facility])[address] [place] [address] Chloride [Moles/Vol] 102 mmol/L Normal 98-107 [facility] Comment on above: Performed By: #### L [id number] ####[facility] ([facility])[address] [place] [address] CO2 [Moles/Vol] 29 mmol/L Normal 21-31 [facility] Comment on above: Performed By: #### L [id number] ####[facility] ([facility])[address] [place] [address] Creatinine [Mass/Vol] 0.67 mg/dL Low 0.70-1.30 [facility] Comment on above: Performed By: #### L [id number] ####[facility] ([facility])[address] [place] [address] GLOMERULAR FILTRATION RATE ML/MIN/1.73 SQ M.PREDICTED 96.8 mL/min/1.73m*2 Normal >60.0 [facility] Comment on above: Result Comment: The [facility]???s estimated glomerular filtration rate (eGFR) [...] of individuals. Performed By: #### L [id number] ####[facility] ([facility])[address] [place] [address] Glucose [Mass/Vol] 100 mg/dL Normal 70-100 [facility] Comment on above: Performed By: #### L [id number] ####[facility] ([facility])[address] [place] [address] Potassium [Moles/Vol] 3.9 mmol/L Normal 3.5-5.1 [facility] Comment on above: Performed By: #### L [id number] ####[facility] ([facility])[address] [place] [address] Sodium [Moles/Vol] 136 mmol/L Normal 136-145 [facility] Comment on above: Performed By: #### L [id number] ####[facility] ([facility])[address] [place] [address] Urea nitrogen [Mass/Vol] 6 mg/dL Low 7-25 [facility] Comment on above: Performed By: #### L [id number] ####[facility] ([facility])[address] [place] [address] UREA NITROGEN/CREATININ E (MASS RATIO) IN SER/PLAS 9.0 Normal [facility] Comment on above: Performed By: #### L [id number] ####[facility] ([facility])[address] [place] [address] CBC WITH AUTO DIFFERENTIALon 05-29-2025 Erythrocyte distribution width (RBC) [Ratio] 15.2 % High 11.5-15.0 [facility] Comment on above: Performed By: #### L [id number] ####[facility] ([facility])[address] [place] [address] ERYTHROCYTE MEAN CORPUSCULAR HEMOGLOBIN CONCENTRATION (G/DL) BY AUTOMATED 33.9 g/dL Normal 32.0-35.0 [facility] Comment on above: Performed By: #### L [id number] ####[facility] ([facility])[address] [place] [address] Hematocrit (Bld) [Volume fraction] 27.4 % Low 39.0-50.0 [facility] Comment on above: Performed By: #### L [id number] ####[facility] ([facility])[address] [place] [address] Hemoglobin (Bld) [Mass/Vol] 9.3 g/dL Low 13.0-17.0 [facility] Comment on above: Performed By: #### L [id number] ####[facility] ([facility])[address] [place] [address] MCH (RBC) [Entitic mass] 31.4 pg Normal 27.0-33.0 [facility] Comment on above: Performed By: #### L [id number] ####[facility] ([facility])[address] [place] [address] MCV (RBC) [Entitic vol] 92.6 fL Normal 82.0-98.0 [facility] Comment on above: Performed By: #### L [id number] ####[facility] ([facility])[address] [place], [place] [address] NRBC (PER 100 WBCS) BY AUTOMATED COUNT 0.0 % Normal 0 [facility] Comment on above: Performed By: #### L [id number] ####[facility] ([facility])[address] [place] [address] PLATELETS (10*3/UL) IN BLOOD AUTOMATED COUNT 356 10*3/uL Normal 150-400 [facility] Comment on above: Performed By: #### L [id number] ####[facility] ([facility])[address] [place] [address] RBC (Bld) [#/Vol] 2.96 10*6/uL Low 4.20-5.70 [facility] Comment on above: Performed By: #### L [id number] ####[facility] ([facility])[address] [place] [address] WBC (Bld) [#/Vol] 13.28 10*3/uL High 4.00-10.60 [facility] Comment on above: Performed By: #### L [id number] ####[facility] ([facility])[address] [place] [address] DSon 05-29-2025 DS Normal [facility] MAGNESIUMon 05-29-2025 Magnesium [Mass/Vol] 2.0 mg/dL Normal 1.9-2.7 [facility] Comment on above: Performed By: #### L [id number] ####[facility] ([facility])[address] [place] [address] MANUAL DIFFERENTIALon 2024 BASOPHILS (10*3/UL) IN BLOOD BY CALCULATION 0.07 10*3/uL Normal 0.00-0.20 [facility] Comment on above: Performed By: #### L [id number] ####[facility] ([facility])[address] [place] [address] BASOPHILS/100 LEUKOCYTES IN BLOOD BY AUTOMATED COUNT 0.5 % Normal 0.0-1.0 [facility] Comment on above: Performed By: #### L [id number] ####[facility] ([facility])[address] [place] [address] EOSINOPHILS (10*3/UL) IN BLOOD BY CALCULATION 0.28 10*3/uL Normal 0.00-0.50 [facility] Comment on above: Performed By: #### L [id number] ####[facility] ([facility])[address] [place] [address] EOSINOPHILS/100 LEUKOCYTES IN BLOOD BY AUTOMATED COUNT 2.1 % Normal 0.0-6.0 [facility] Comment on above: Performed By: #### L [id number] ####[facility] ([facility])[address] [place] [address] IMMATURE GRANULOCYTES (10*3/UL) IN BLOOD BY CALCULATION 0.15 10*3/uL Normal 0.00-0.20 [facility] Comment on above: Performed By: #### L [id number] ####[facility] ([facility])[address] [place] [address] IMMATURE GRANULOCYTES/100 LEUKOCYTES IN BLOOD BY AUTOMATED COUNT 1.1 % High 0.0-1.0 [facility] Comment on above: Performed By: #### L [id number] ####[facility] ([facility])[address] [place] [address] LYMPHOCYTES (10*3/UL) IN BLOOD BY CALCULATION 2.40 10*3/uL Normal 1.20-4.00 [facility] Comment on above: Performed By: #### L [id number] ####[facility] ([facility])[address] [place] [address] LYMPHOCYTES/100 LEUKOCYTES IN BLOOD BY AUTOMATED COUNT 18.1 % Low 20.0-45.0 [facility] Comment on above: Performed By: #### L [id number] ####[facility] ([facility])[address] [place] [address] MONOCYTES (10*3/UL) IN BLOOD BY CALCUATION 1.59 10*3/uL High 0.10-1.00 [facility] Comment on above: Performed By: #### L [id number] ####[facility] ([facility])[address] [place] [address] MONOCYTES/100 LEUKOCYTES IN BLOOD BY AUTOMATED COUNT 12.0 % Normal 5.0-12.0 [facility] Comment on above: Performed By: #### L [id number] ####[facility] ([facility])[address] [place] [address] NEUTROPHILS (10*3/UL) IN BLOOD BY CALCULATION 8.8 10*3/uL High 1.6-7.6 [facility] Comment on above: Performed By: #### L [id number] ####[facility] ([facility])[address] [place] [address] NEUTROPHILS/100 LEUKOCYTES IN BLOOD BY AUTOMATED COUNT 66.2 % Normal 40.0-72.0 [facility] Comment on above: Performed By: #### L [id number] ####[facility] ([facility])[address] [place] [address] PHOSPHORUSon 05-29-2025 Magnesium [Mass/Vol] 3.0 mg/dL Normal 2.5-5.0 [facility] Comment on above: Performed By: #### L [id number] ####[facility] ([facility])[address] [place] [address] 30on 05-28-2025 30 Normal [facility] 30 The patient is Moder ately Stable - Low risk of patient condition declining or worsening The patient's goals for the shift include discharge The clinical goals for the shift include vss comfort Normal [facility] 30 Normal [facility] BASIC METABOLIC PANELon 05-03 Anion gap [Moles/Vol] 11 mmol/L Normal 7-20 [facility] Comment on above: Performed By: #### L [id number] ####[facility] ([facility])[address] [place] [address] Calcium [Mass/Vol] 7.8 mg/dL Low 8.6-10.3 [facility] Comment on above: Performed By: #### L [id number] ####[facility] ([facility])[address] [place] [address] Chloride [Moles/Vol] 103 mmol/L Normal 98-107 [facility] Comment on above: Performed By: #### L [id number] ####[facility] ([facility])[address] [place] [address] CO2 [Moles/Vol] 25 mmol/L Normal - [facility] Comment on above: Performed By: #### L [id number] ####[facility] ([facility])[address] [place] [address] Creatinine [Mass/Vol] 0.67 mg/dL Low 0.70-1.30 [facility] Comment on above: Performed By: #### L [id number] ####[facility] ([facility])[address] [place] [address] GLOMERULAR FILTRATION RATE ML/MIN/1.73 SQ M.PREDICTED 96.8 mL/min/1.73m*2 Normal >60.0 [facility] Comment on above: Result Comment: [facility]???s estimated glomerular filtration rate (eGFR) [...] of individuals. Performed By: #### L [id number] ####[facility] ([facility])[address] [place] [address] Glucose [Mass/Vol] 98 mg/dL Normal 70-100 [facility] Comment on above: Performed By: #### L [id number] ####[facility] ([facility])[address] [facility] [place] [address] Potassium [Moles/Vol] 3.8 mmol/L Normal 3.5-5.1 [facility] Comment on above: Performed By: #### L [id number] ####[facility] ([facility])[address] [place] [address] Sodium [Moles/Vol] 135 mmol/L Low 136-145 [facility] Comment on above: Performed By: #### L [id number] ####[facility] ([facility])[address] [place] [address] Urea nitrogen [Mass/Vol] 6 mg/dL Low 7-25 [facility] Comment on above: Performed By: #### L [id number] ####[facility] ([facility])[address] [place] [address] UREA NITROGEN/CREATININ E (MASS RATIO) IN SER/PLAS 9.0 Normal [facility] Comment on above: Performed By: #### L [id number] ####[facility] ([facility])[address] [place] [address] BODY FLUID CULTUREon 05-28-2 025 Amoxicillin+Clavul anate [Susc] >16/8 Resistant [facility] Comment on above: Performed By: #### L [id number] ####[facility] ([facility])[address] [place] [address] Ampicillin [Susc] >16 Resistant [facility] Comment on above: Performed By: #### L [id number] ####[facility] ([facility]ER)[address] [place] [address] Ampicillin+Sulbact am [Susc] >16/8 Resistant [facility] Comment on above: Performed By: #### L [id number] ####[facility] ([facility])[address] [place] [address] ceFAZolin [Susc] Resistant [facility] Comment on above: Performed By: #### L [id number] ####[facility] ([facility])[address] [place] [address] cefTRIAXone [Susc] <=1 Susceptible [facility] Comment on above: Performed By: #### L [id number] ####[facility] ([facility])[address] [place] [address] Ciprofloxacin [Susc] <=0.25 Susceptible [facility] Comment on above: Performed By: #### L [id number] ####[facility] [facility])[address] [place] [address] Gentamicin [Susc] <=2 Susceptible [facility] Comment on above: Performed By: #### L [id number] ####[facility] (BEAKER)[address] [place] [address] Tobramycin [Susc] <=2 Susceptible [facility] Comment on above: Performed By: #### L [id number] ####[facility] ([facility])[address] [place] [address] CBC WITH AUTO DIFFERENTIALon 05-28-2025 Erythrocyte distribution width (RBC) [Ratio] 15.5 % High 11.5-15.0 [facility] Comment on above: Performed By: #### L [id number] ####[facility] ([facility])[address] [place] [address] ERYTHROCYTE MEAN CORPUSCULAR HEMOGLOBIN CONCENTRATION (G/DL) BY AUTOMATED 34.0 g/dL Normal 32.0-35.0 [facility] Comment on above: Performed By: #### L [id number] ####[facility] ([facility])[address] [place] [address] Hematocrit (Bld) [Volume fraction] 25.6 % Low 39.0-50.0 [facility] Comment on above: Performed By: #### L [id number] ####[facility] ([facility])[address] [place] [address] Hemoglobin (Bld) [Mass/Vol] 8.7 g/dL Low 13.0-17.0 [facility] Comment on above: Performed By: #### L [id number] ####[facility] ([facility])[address] [place] [address] MCH (RBC) [Entitic mass] 32.2 pg Normal 27.0-33.0 [facility] Comment on above: Performed By: #### L [id number] ####[facility] ([facility])[address] [place] [address] MCV (RBC) [Entitic vol] 94.8 fL Normal 82.0-98.0 [facility] Comment on above: Performed By: #### L [id number] ####[facility] ([facility])[address] [place] [address] NRBC (PER 100 WBCS) BY AUTOMATED COUNT 0.0 % Normal 0 [facility] Comment on above: Performed By: #### L [id number] ####[facility] ([facility])[address] [place] [address] PLATELETS (10*3/UL) IN BLOOD AUTOMATED COUNT 330 10*3/uL Normal 150-400 [facility] Comment on above: Performed By: #### L [id number] ####[facility] ([facility])[address] [place] [address] RBC (Bld) [#/Vol] 2.70 10*6/uL Low 4.20-5.70 [facility] Comment on above: Performed By: #### L [id number] ####[facility] ([facility])[address] [place] [address] WBC (Bld) [#/Vol] 13.32 10*3/uL High 4.00-10.60 [facility] Comment on above: Performed By: #### L [id number] ####[facility] ([facility])[address] [place] [address] CT GUIDED ABSCESS FLUID GABRIEL ECTION DRAINAGEon 05-28-2025 CT GUIDED ABSCESS FLUID COLLECTION DRAINAGE Invalid Interpretation Code [facility] MAGNESIUMon 05-28-2025 Magnesium [Mass/Vol] 1.9 mg/dL Normal 1.9-2.7 [facility] Comment on above: Performed By: #### L [id number] ####[facility] ([facility])[address] [place] [address] PHOSPHORUSon 05-28-2025 Magnesium [Mass/Vol] 2.7 mg/dL Normal 2.5-5.0 [facility] Comment on above: Performed By: #### L [id number] ####[facility] ([facility])[address] [place] [address] TEST MANUAL DIFFERENTIALon 0 05-28-2025 EOSINOPHILS (10*3/UL) IN BLOOD BY CALCULATION 0.27 10*3/uL Normal 0.00-0.50 [facility] Comment on above: Order Comment: Leelee l Red Cell Population Performed By: #### L [id number] ####[facility] ([facility])[address] [place] [address] EOSINOPHILS/100 LEUKOCYTES IN BLOOD BY MANUAL COUNT 2 % Normal 0-6 [facility] Comment on above: Order Comment: Leelee l Red Cell Population Performed By: #### L [id number] ####[facility] ([facility])[address] [place] [address] LYMPHOCYTES (10*3/UL) IN BLOOD BY CALCULATION 2.13 10*3/uL Normal 1.20-4.00 [facility] Comment on above: Order Comment: Leelee l Red Cell Population Performed By: #### L [id number] ####[facility] ([facility])[address] [place] [address] LYMPHOCYTES/100 LEUKOCYTES IN BLOOD BY MANUAL COUNT 16 % Low 20-45 [facility] Comment on above: Order Comment: Leelee l Red Cell Population Performed By: #### L [id number] ####[facility] ([facility])[address] [place] [address] MONOCYTES (10*3/UL) IN BLOOD BY CALCUATION 2.00 10*3/uL High 0.10-1.00 [facility] Comment on above: Order Comment: Leelee l Red Cell Population Performed By: #### L [id number] ####[facility] ([facility])[address] [place] [address] MONOCYTES/100 LEUKOCYTES IN BLOOD BY MANUAL COUNT 15 % High 5-12 [facility] Comment on above: Order Comment: Leelee l Red Cell Population Performed By: #### L [id number] ####[facility] ([facility])[address] [place] [address] NEUTROPHILS (10*3/UL) IN BLOOD BY CALCULATION 8.9 10*3/uL High 1.6-7.6 [facility] Comment on above: Order Comment: Leelee l Red Cell Population Performed By: #### L [id number] ####[facility] ([facility])[address] [place] [address] SEGEMENTED NEUTROPHILS/100 LEUKOCYTES BY MANUAL COUNT 67 % Normal 40-72 [facility] Comment on above: Order Comment: Leelee l Red Cell Population Performed By: #### L [id number] ####[facility] ([facility])[address] [place] [address] 30on 05-27-2025 30 Normal [facility] 30 Normal [facility] BASIC METABOLIC PANELon 05-03 Anion gap [Moles/Vol] 10 mmol/L Normal 7-20 [facility] Comment on above: Performed By: #### L [id number] ####[facility] ([facility])[address] [place] [address] Calcium [Mass/Vol] 8.0 mg/dL Low 8.6-10.3 [facility] Comment on above: Performed By: #### L [id number] ####[facility] ([facility]LE)[address] [place] [address] Chloride [Moles/Vol] 101 mmol/L Normal 98-107 [facility] Comment on above: Performed By: #### L [id number] ####[facility] ([facility])[address] [place] [address] CO2 [Moles/Vol] 28 mmol/L Normal 21-31 [facility] Comment on above: Performed By: #### L [id number] ####[facility] ([facility])[address] [place] [address] Creatinine [Mass/Vol] 0.65 mg/dL Low 0.70-1.30 [facility] Comment on above: Performed By: #### L [id number] ####[facility] ([facility])[address] [place] [address] GLOMERULAR FILTRATION RATE ML/MIN/1.73 SQ M.PREDICTED 97.7 mL/min/1.73m*2 Normal >60.0 [facility] Comment on above: Result Comment: [facility]???s estimated glomerular filtration rate (eGFR) [...] of individuals. Performed By: #### L [id number] ####[facility] ([place])[address] [place] [address] Glucose [Mass/Vol] 95 mg/dL Normal 70-100 [facility] Comment on above: Performed By: #### L [id number] ####[facility] (BEAKER)[address] [place] [address] Potassium [Moles/Vol] 3.6 mmol/L Normal 3.5-5.1 [facility] Comment on above: Performed By: #### L [id number] ####[facility] ([facility])[address] [place] [address] Sodium [Moles/Vol] 135 mmol/L Low 136-145 [facility] Comment on above: Performed By: #### L [id number] ####[facility] ([facility])[address] [place] [address] Urea nitrogen [Mass/Vol] 6 mg/dL Low 7-25 [facility] Comment on above: Performed By: #### L [id number] ####[facility] ([facility])[address] [place] [address] UREA NITROGEN/CREATININ E (MASS RATIO) IN SER/PLAS 9.2 Normal [facility] Comment on above: Performed By: #### L [id number] ####[facility] ([facility])[address] [place] [address] CBC WITH AUTO DIFFERENTIALon 05-27-2025 Erythrocyte distribution width (RBC) [Ratio] 15.3 % High 11.5-15.0 [facility] Comment on above: Performed By: #### L [id number] ####[facility] ([facility])[address] [place] [address] ERYTHROCYTE MEAN CORPUSCULAR HEMOGLOBIN CONCENTRATION (G/DL) BY AUTOMATED 33.8 g/dL Normal 32.0-35.0 [facility] Comment on above: Performed By: #### L [id number] ####[facility] ([facility])[address] [place] [address] Hematocrit (Bld) [Volume fraction] 26.9 % Low 39.0-50.0 [facility] Comment on above: Performed By: #### L [id number] ####[facility] ([facility])[address] [place] [address] Hemoglobin (Bld) [Mass/Vol] 9.1 g/dL Low 13.0-17.0 [facility] Comment on above: Performed By: #### L [id number] ####[facility] ([facility])[address] [place] [address] MCH (RBC) [Entitic mass] 31.0 pg Normal 27.0-33.0 [facility] Comment on above: Performed By: #### L [id number] ####[facility] ([facility])[address] [place] [address] MCV (RBC) [Entitic vol] 91.5 fL Normal 82.0-98.0 [facility] Comment on above: Performed By: #### L [id number] ####[facility] ([facility])[address] [place] [address] NRBC (PER 100 WBCS) BY AUTOMATED COUNT 0.0 % Normal 0 [facility] Comment on above: Performed By: #### L [id number] ####[facility] ([facility])[address] [place] [address] PLATELETS (10*3/UL) IN BLOOD AUTOMATED COUNT 366 10*3/uL Normal 150-400 [facility] Comment on above: Performed By: #### L [id number] ####[facility] ([facility])[address] [place] [address] RBC (Bld) [#/Vol] 2.94 10*6/uL Low 4.20-5.70 [facility] Comment on above: Performed By: #### L [id number] ####[facility] ([facility])[address] [place] [address] WBC (Bld) [#/Vol] 14.66 10*3/uL High 4.00-10.60 [facility] Comment on above: Performed By: #### L [id number] ####[facility] ([facility])[address] [place] [address] MAGNESIUMon 05-27-2025 Magnesium [Mass/Vol] 1.8 mg/dL Low 1.9-2.7 [facility] Comment on above: Performed By: #### L [id number] ####[facility] ([facility])[address] [place] [address] MANUAL DIFFERENTIALon 2024 BASOPHILS (10*3/UL) IN BLOOD BY CALCULATION 0.07 10*3/uL Normal 0.00-0.20 [facility] Comment on above: Performed By: #### L [id number] ####[facility] ([facility])[address] [place] [address] BASOPHILS/100 LEUKOCYTES IN BLOOD BY AUTOMATED COUNT 0.5 % Normal 0.0-1.0 [facility] Comment on above: Performed By: #### L [id number] ####[facility] ([facility])[address] [place] [address] EOSINOPHILS (10*3/UL) IN BLOOD BY CALCULATION 0.29 10*3/uL Normal 0.00-0.50 [facility] Comment on above: Performed By: #### L [id number] ####[facility] ([facility])[address] [place] [address] EOSINOPHILS/100 LEUKOCYTES IN BLOOD BY AUTOMATED COUNT 2.0 % Normal 0.0-6.0 [facility] Comment on above: Performed By: #### L [id number] ####[facility] ([facility])[address] [place] [address] IMMATURE GRANULOCYTES (10*3/UL) IN BLOOD BY CALCULATION 0.16 10*3/uL Normal 0.00-0.20 [facility] Comment on above: Performed By: #### L [id number] ####[facility] ([facility])[address] [place] [address] IMMATURE GRANULOCYTES/100 LEUKOCYTES IN BLOOD BY AUTOMATED COUNT 1.1 % High 0.0-1.0 [facility] Comment on above: Performed By: #### L [id number] ####[facility] ([facility])[address] [place] [address] LYMPHOCYTES (10*3/UL) IN BLOOD BY CALCULATION 2.62 10*3/uL Normal 1.20-4.00 [facility] Comment on above: Performed By: #### L [id number] ####[facility] ([facility])[address] [place] [address] LYMPHOCYTES/100 LEUKOCYTES IN BLOOD BY AUTOMATED COUNT 17.9 % Low 20.0-45.0 [facility] Comment on above: Performed By: #### L [id number] ####[facility] ([facility])[address] [place] [address] MONOCYTES (10*3/UL) IN BLOOD BY CALCUATION 1.57 10*3/uL High 0.10-1.00 [facility] Comment on above: Performed By: #### L [id number] ####[facility] ([facility])[address] [place] [address] MONOCYTES/100 LEUKOCYTES IN BLOOD BY AUTOMATED COUNT 10.7 % Normal 5.0-12.0 [facility] Comment on above: Performed By: #### L [id number] ####[facility] ([facility])[address] [place] [address] NEUTROPHILS (10*3/UL) IN BLOOD BY CALCULATION 9.9 10*3/uL High 1.6-7.6 [facility] Comment on above: Performed By: #### L [id number] ####[facility] ([facility])[address] [place] [address] NEUTROPHILS/100 LEUKOCYTES IN BLOOD BY AUTOMATED COUNT 67.8 % Normal 40.0-72.0 [facility] Comment on above: Performed By: #### L [id number] ####[facility] ([facility])[address] [place] [address] PHOSPHORUSon 05-27-2025 Magnesium [Mass/Vol] 2.4 mg/dL Low 2.5-5.0 [facility] Comment on above: Performed By: #### L [id number] ####[facility] ([facility])[address] [place] [address] 30on 05-26-2025 30 Normal [facility] BASIC METABOLIC PANELon 08-2 Anion gap [Moles/Vol] 11 mmol/L Normal 7-20 [facility] Comment on above: Performed By: #### L [id number] ####[facility] ([facility])[address] [place] [address] Calcium [Mass/Vol] 7.7 mg/dL Low 8.6-10.3 [facility] Comment on above: Performed By: #### L [id number] ####[facility] ([facility])[address] [place] [address] Chloride [Moles/Vol] 100 mmol/L Normal 98-107 [facility] Comment on above: Performed By: #### L [id number] ####[facility] ([facility])[address] [place] [address] CO2 [Moles/Vol] 28 mmol/L Normal 21-31 [facility] Comment on above: Performed By: #### L [id number] ####[facility] ([facility])[address] [place] [address] Creatinine [Mass/Vol] 0.67 mg/dL Low 0.70-1.30 [facility] Comment on above: Performed By: #### L [id number] ####[facility] ([facility])[address] [place] [address] GLOMERULAR FILTRATION RATE ML/MIN/1.73 SQ M.PREDICTED 96.8 mL/min/1.73m*2 Normal >60.0 [facility] Comment on above: Result Comment: [facility]???s estimated glomerular filtration rate (eGFR) [...] of individuals. Performed By: #### L [id number] ####[facility] ([facility])[address] [place] [address] Glucose [Mass/Vol] 89 mg/dL Normal 70-100 [facility] Comment on above: Performed By: #### L [id number] ####[facility] ([facility])[address] [place] [address] Potassium [Moles/Vol] 3.5 mmol/L Normal 3.5-5.1 [facility] Comment on above: Performed By: #### L [id number] ####[facility] ([facility])[address] [place] [address] Sodium [Moles/Vol] 135 mmol/L Low 136-145 [facility] Comment on above: Performed By: #### L [id number] ####[facility] ([facility])[address] [place] [address] Urea nitrogen [Mass/Vol] 6 mg/dL Low 7-25 [facility] Comment on above: Performed By: #### L [id number] ####[facility] ([facility])[address] [place] [address] UREA NITROGEN/CREATININ E (MASS RATIO) IN SER/PLAS 9.0 Normal [facility] Comment on above: Performed By: #### L [id number] ####[facility] ([facility])[address] [place] [address] BLOOD CULTUREon 05-26-2025 Bacteria identified Cx Nom (Bld) No growth at 5 days Normal [facility] Comment on above: Order Comment: From a different site than #1. Performed By: #### L [id number] ####[facility] ([facility])[address] [place] [address] CBC WITH AUTO DIFFERENTIALon 05-26-2025 Erythrocyte distribution width (RBC) [Ratio] 15.2 % High 11.5-15.0 [facility] Comment on above: Performed By: #### L [id number] ####[facility] (BEAKER)[address] [place] [address] ERYTHROCYTE MEAN CORPUSCULAR HEMOGLOBIN CONCENTRATION (G/DL) BY AUTOMATED 33.9 g/dL Normal 32.0-35.0 [facility] Comment on above: Performed By: #### L [id number] ####[facility] (BEAKER)[address] [place] [address] Hematocrit (Bld) [Volume fraction] 25.4 % Low 39.0-50.0 [facility] Comment on above: Performed By: #### L [id number] ####[facility] ([facility])[address] [place] [address] Hemoglobin (Bld) [Mass/Vol] 8.6 g/dL Low 13.0-17.0 [facility] Comment on above: Performed By: #### L [id number] ####[facility] ([facility])[address] [place] [address] MCH (RBC) [Entitic mass] 30.8 pg Normal 27.0-33.0 [facility] Comment on above: Performed By: #### L [id number] ####[facility] ([facility])[address] [place] [address] MCV (RBC) [Entitic vol] 91.0 fL Normal 82.0-98.0 [facility] Comment on above: Performed By: #### L [id number] ####[facility] (BEAKER)[address] [place] [address] NRBC (PER 100 WBCS) BY AUTOMATED COUNT 0.0 % Normal 0 [facility] Comment on above: Performed By: #### L [id number] ####[facility] ([facility])[address] [place] [address] PLATELETS (10*3/UL) IN BLOOD AUTOMATED COUNT 338 10*3/uL Normal 150-400 [facility] Comment on above: Performed By: #### L [id number] ####[facility] (BEAKER)[address] [place] [address] RBC (Bld) [#/Vol] 2.79 10*6/uL Low 4.20-5.70 [facility] Comment on above: Performed By: #### L [id number] ####[facility] ([facility])[address] [place] [address] WBC (Bld) [#/Vol] 15.82 10*3/uL High 4.00-10.60 [facility] Comment on above: Performed By: #### L [id number] ####[facility] ([facility])[address] [place] [address] CT ABDOMEN PELVIS W IV CONTR Kala 05-26-2025 CT ABDOMEN PELVIS W IV CONTRAST Invalid Interpretation Code [facility] LACTIC ACID WITH 4 HOUR REFL EXon 05-26-2025 LACTATE (MMOL/L) IN SER/PLAS 0.9 mmol/L Normal 0.5-2.2 [facility] Comment on above: Performed By: #### L [id number] ####[facility] ([facility])[address] [place] [address] MAGNESIUMon 05-26-2025 Magnesium [Mass/Vol] 1.8 mg/dL Low 1.9-2.7 [facility] Comment on above: Performed By: #### L [id number] ####[facility] ([facility])[address] [place] [address] MANUAL DIFFERENTIALon 2024 BASOPHILS (10*3/UL) IN BLOOD BY CALCULATION 0.11 10*3/uL Normal 0.00-0.20 [facility] Comment on above: Performed By: #### L [id number] ####[facility] ([facility])[address] [place] [address] BASOPHILS/100 LEUKOCYTES IN BLOOD BY AUTOMATED COUNT 0.7 % Normal 0.0-1.0 [facility] Comment on above: Performed By: #### L [id number] ####[facility] ([facility])[address] [place] [address] EOSINOPHILS (10*3/UL) IN BLOOD BY CALCULATION 0.21 10*3/uL Normal 0.00-0.50 [facility] Comment on above: Performed By: #### L [id number] ####[facility] ([facility])[address] [place] [address] EOSINOPHILS/100 LEUKOCYTES IN BLOOD BY AUTOMATED COUNT 1.3 % Normal 0.0-6.0 [facility] Comment on above: Performed By: #### L [id number] ####[facility] ([facility])[address] [place] [address] IMMATURE GRANULOCYTES (10*3/UL) IN BLOOD BY CALCULATION 0.21 10*3/uL High 0.00-0.20 [facility] Comment on above: Performed By: #### L [id number] ####[facility] ([facility])[address] [place] [address] IMMATURE GRANULOCYTES/100 LEUKOCYTES IN BLOOD BY AUTOMATED COUNT 1.3 % High 0.0-1.0 [facility] Comment on above: Performed By: #### L [id number] ####[facility] ([facility])[address] [place] [address] LYMPHOCYTES (10*3/UL) IN BLOOD BY CALCULATION 2.12 10*3/uL Normal 1.20-4.00 [facility] Comment on above: Performed By: #### L [id number] ####[facility] ([facility])[address] [place] [address] LYMPHOCYTES/100 LEUKOCYTES IN BLOOD BY AUTOMATED COUNT 13.4 % Low 20.0-45.0 [facility] Comment on above: Performed By: #### L [id number] ####[facility] ([facility])[address] [place] [address] MONOCYTES (10*3/UL) IN BLOOD BY CALCUATION 0.85 10*3/uL Normal 0.10-1.00 [facility] Comment on above: Performed By: #### L [id number] ####[facility] ([facility])[address] [place] [address] MONOCYTES/100 LEUKOCYTES IN BLOOD BY AUTOMATED COUNT 5.4 % Normal 5.0-12.0 [facility] Comment on above: Performed By: #### L [id number] ####[facility] ([facility])[address] [place] [address] NEUTROPHILS (10*3/UL) IN BLOOD BY CALCULATION 12.5 10*3/uL High 1.6-7.6 [facility] Comment on above: Performed By: #### L [id number] ####[facility] ([facility])[address] [place] [address] NEUTROPHILS/100 LEUKOCYTES IN BLOOD BY AUTOMATED COUNT 79.2 % High 40.0-72.0 [facility] Comment on above: Performed By: #### L [id number] ####[facility] ([facility])[address] [place] [address] PLASMA CELLS/100 LEUKOCYTES IN BLOOD 0 % Normal 0 [facility] Comment on above: Performed By: #### L [id number] ####[facility] ([facility])[address] [place] [address] PLATELETS GIANT PRESENCE IN BLOOD BY LIGHT MICROSCOPY Present Normal [facility] Comment on above: Performed By: #### L [id number] ####[facility] ([facility])[address] [place] [address] VARIANT LYMPHOCYTES (10*3/UL) IN BLOOD BY CALCULATION 0.00 10*3/uL Normal 0.00 [facility] Comment on above: Performed By: #### L [id number] ####[facility] ([facility])[address] [place] [address] VARIANT LYMPHOCYTES/100 LEUKOCYTES IN BLOOD CELLAVISION 0.0 % Normal 0.0-0.0 [facility] Comment on above: Performed By: #### L [id number] ####[facility] ([facility])[address] [place] [address] PHOSPHORUSon 05-26-2025 Magnesium [Mass/Vol] 2.5 mg/dL Normal 2.5-5.0 [facility] Comment on above: Performed By: #### L [id number] ####[facility] ([facility])[address] [place] [address] BASIC METABOLIC PANELon 05-03 Anion gap [Moles/Vol] 11 mmol/L Normal 7-20 [facility] Comment on above: Performed By: #### L [id number] ####[facility] ([facility])[address] [place] [address] Calcium [Mass/Vol] 7.7 mg/dL Low 8.6-10.3 [facility] Comment on above: Performed By: #### L [id number] ####[facility] ([facility])[address] [place] [address] Chloride [Moles/Vol] 101 mmol/L Normal 98-107 [facility] Comment on above: Performed By: #### L [id number] ####[facility] ([facility])[address] [place] [address] CO2 [Moles/Vol] 28 mmol/L Normal 21-31 [facility] Comment on above: Performed By: #### L [id number] ####[facility] ([facility])[address] [place] [address] Creatinine [Mass/Vol] 0.74 mg/dL Normal 0.70-1.30 [facility] Comment on above: Performed By: #### L [id number] ####[facility] ([facility])[address] [place] [address] GLOMERULAR FILTRATION RATE ML/MIN/1.73 SQ M.PREDICTED 93.9 mL/min/1.73m*2 Normal >60.0 [facility] Comment on above: Result Comment: The [facility]???s estimated glomerular filtration rate (eGFR) [...] of individuals. Performed By: #### L [id number] ####[facility] ([facility])[address] [place] [address] Glucose [Mass/Vol] 94 mg/dL Normal 70-100 [facility] Comment on above: Performed By: #### L [id number] ####[facility] ([facility])[address] [place] [address] Potassium [Moles/Vol] 3.5 mmol/L Normal 3.5-5.1 [facility] Comment on above: Performed By: #### L [id number] ####[facility] ([facility])[address] [place] [address] Sodium [Moles/Vol] 136 mmol/L Normal 136-145 [facility] Comment on above: Performed By: #### L [id number] ####[facility] ([facility])[address] [place] [address] Urea nitrogen [Mass/Vol] 8 mg/dL Normal 7-25 [facility] Comment on above: Performed By: #### L [id number] ####[facility] ([facility])[address] [place] [address] UREA NITROGEN/CREATININ E (MASS RATIO) IN SER/PLAS 10.8 Normal [facility] Comment on above: Performed By: #### L [id number] ####[facility] ([facility])[address] [place] [address] CBC WITH AUTO DIFFERENTIALon 05-25-2025 Erythrocyte distribution width (RBC) [Ratio] 15.1 % High 11.5-15.0 [facility] Comment on above: Performed By: #### L [id number] ####[facility] ([facility])[address] [place] [address] ERYTHROCYTE MEAN CORPUSCULAR HEMOGLOBIN CONCENTRATION (G/DL) BY AUTOMATED 34.5 g/dL Normal 32.0-35.0 [facility] Comment on above: Performed By: #### L [id number] ####[facility] ([facility])[address] [place] [address] Hematocrit (Bld) [Volume fraction] 26.7 % Low 39.0-50.0 [facility] Comment on above: Performed By: #### L [id number] ####[facility] ([facility])[address] [place] [address] Hemoglobin (Bld) [Mass/Vol] 9.2 g/dL Low 13.0-17.0 [facility] Comment on above: Performed By: #### L [id number] ####[facility] ([facility])[address] [place], [place] [address] MCH (RBC) [Entitic mass] 31.4 pg Normal 27.0-33.0 [facility] Comment on above: Performed By: #### L [id number] ####[facility] ([facility])[address] [place] [address] MCV (RBC) [Entitic vol] 91.1 fL Normal 82.0-98.0 [facility] Comment on above: Performed By: #### L [id number] ####[facility] ([facility])[address] [place], [place] [address] NRBC (PER 100 WBCS) BY AUTOMATED COUNT 0.0 % Normal 0 [facility] Comment on above: Performed By: #### L [id number] ####[facility] ([facility])[address] [place], [place] [address] PLATELETS (10*3/UL) IN BLOOD AUTOMATED COUNT 352 10*3/uL Normal 150-400 [facility] Comment on above: Performed By: #### L [id number] ####[facility] ([facility])[address] [place] [address] RBC (Bld) [#/Vol] 2.93 10*6/uL Low 4.20-5.70 [facility] Comment on above: Performed By: #### L [id number] ####[facility] ([facility])[address] [place] [address] WBC (Bld) [#/Vol] 18.52 10*3/uL High 4.00-10.60 [facility] Comment on above: Performed By: #### L [id number] ####[facility] ([facility])[address] [place] [address] MAGNESIUMon 05-25-2025 Magnesium [Mass/Vol] 1.8 mg/dL Low 1.9-2.7 [facility] Comment on above: Performed By: #### L [id number] ####[facility] ([facility])[address] [place] [address] MANUAL DIFFERENTIALon 2024 BASOPHILS (10*3/UL) IN BLOOD BY CALCULATION 0.06 10*3/uL Normal 0.00-0.20 [facility] Comment on above: Performed By: #### L [id number] ####[facility] ([facility])[address] [place] [address] BASOPHILS/100 LEUKOCYTES IN BLOOD BY AUTOMATED COUNT 0.3 % Normal 0.0-1.0 [facility] Comment on above: Performed By: #### L [id number] ####[facility] ([facility])[address] [place] [address] EOSINOPHILS (10*3/UL) IN BLOOD BY CALCULATION 0.33 10*3/uL Normal 0.00-0.50 [facility] Comment on above: Performed By: #### L [id number] ####[facility] ([facility])[address] [place] [address] EOSINOPHILS/100 LEUKOCYTES IN BLOOD BY AUTOMATED COUNT 1.8 % Normal 0.0-6.0 [facility] Comment on above: Performed By: #### L [id number] ####[facility] ([facility])[address] [place] [address] IMMATURE GRANULOCYTES (10*3/UL) IN BLOOD BY CALCULATION 0.20 10*3/uL Normal 0.00-0.20 [facility] Comment on above: Performed By: #### L [id number] ####[facility] ([facility])[address] [place] [address] IMMATURE GRANULOCYTES/100 LEUKOCYTES IN BLOOD BY AUTOMATED COUNT 1.1 % High 0.0-1.0 [facility] Comment on above: Performed By: #### L [id number] ####[facility] ([facility])[address] [place] [address] LYMPHOCYTES (10*3/UL) IN BLOOD BY CALCULATION 3.30 10*3/uL Normal 1.20-4.00 [facility] Comment on above: Performed By: #### L [id number] ####[facility] ([facility])[address] [place] [address] LYMPHOCYTES/100 LEUKOCYTES IN BLOOD BY AUTOMATED COUNT 17.8 % Low 20.0-45.0 [facility] Comment on above: Performed By: #### L [id number] ####[facility] ([facility])[address] [place] [address] MONOCYTES (10*3/UL) IN BLOOD BY CALCUATION 1.87 10*3/uL High 0.10-1.00 [facility] Comment on above: Performed By: #### L [id number] ####[facility] ([facility])[address] [place] [address] MONOCYTES/100 LEUKOCYTES IN BLOOD BY AUTOMATED COUNT 10.1 % Normal 5.0-12.0 [facility] Comment on above: Performed By: #### L [id number] ####[facility] ([facility])[address] [place] [address] NEUTROPHILS (10*3/UL) IN BLOOD BY CALCULATION 12.8 10*3/uL High 1.6-7.6 [facility] Comment on above: Performed By: #### L [id number] ####[facility] ([facility])[address] [place], [place] [address] NEUTROPHILS/100 LEUKOCYTES IN BLOOD BY AUTOMATED COUNT 68.9 % Normal 40.0-72.0 [facility] Comment on above: Performed By: #### L [id number] ####[facility] ([facility])[address] [place] [address] PHOSPHORUSon 05-25-2025 Magnesium [Mass/Vol] 2.3 mg/dL Low 2.5-5.0 [facility] Comment on above: Performed By: #### L [id number] ####[facility] ([facility])[address] [place] [address] POCT GLUCOSE METER UNSOLICIT ED RESULTSon 05-25-2025 Glucose [Mass/Vol] 132 mg/dL High 70-105 [facility] Comment on above: Order Comment: Waive d Testing in the ED is performed under the ED CLIA certificate #[id number]. Result Comment: srab ee Performed By: #### L [id number] ####[facility] ([facility])[address] [place] [address] 30on 05-24-2025 30 The patient is Moder ately Stable - Low risk of patient condition declining or worsening The patient's goals for the shift include comfort The clinical goals for the shift include stbale vitals, comfort Normal [facility] 30 Normal [facility] BASIC METABOLIC PANELon 05-03 Anion gap [Moles/Vol] 9 mmol/L Normal 7-20 [facility] Comment on above: Performed By: #### L [id number] ####[facility] ([facility])[address] [place] [address] Calcium [Mass/Vol] 7.7 mg/dL Low 8.6-10.3 [facility] Comment on above: Performed By: #### L [id number] ####[facility] ([facility])[address] [place] [address] Chloride [Moles/Vol] 101 mmol/L Normal 98-107 [facility] Comment on above: Performed By: #### L [id number] ####[facility] ([facility])[address] [place] [address] CO2 [Moles/Vol] 31 mmol/L Normal 21-31 [facility] Comment on above: Performed By: #### L [id number] ####[facility] ([facility])[address] [place] [address] Creatinine [Mass/Vol] 0.86 mg/dL Normal 0.70-1.30 [facility] Comment on above: Performed By: #### L [id number] ####[facility] ([facility])[address] [place] [address] GLOMERULAR FILTRATION RATE ML/MIN/1.73 SQ M.PREDICTED 89.7 mL/min/1.73m*2 Normal >60.0 [facility] Comment on above: Result Comment: The [facility]???s estimated glomerular filtration rate (eGFR) [...] of individuals. Performed By: #### L [id number] ####[facility] ([facility])[address] [place] [address] Glucose [Mass/Vol] 97 mg/dL Normal 70-100 [facility] Comment on above: Performed By: #### L [id number] ####[facility] ([facility])[address] [place] [address] Potassium [Moles/Vol] 3.1 mmol/L Low 3.5-5.1 [facility] Comment on above: Performed By: #### L [id number] ####[facility] ([facility])[address] [place] [address] Sodium [Moles/Vol] 138 mmol/L Normal 136-145 [facility] Comment on above: Performed By: #### L [id number] ####[facility] ([facility])[address] [place] [address] Urea nitrogen [Mass/Vol] 12 mg/dL Normal 7-25 [facility] Comment on above: Performed By: #### L [id number] ####[facility] ([facility])[address] [place] [address] UREA NITROGEN/CREATININ E (MASS RATIO) IN SER/PLAS 14.0 Normal [facility] Comment on above: Performed By: #### L [id number] ####[facility] ([facility])[address] [place] [address] CBC WITH AUTO DIFFERENTIALon 05-24-2025 Basophils (Bld) [#/Vol] 0.03 10*3/uL Normal 0.00-0.20 [facility] Comment on above: Performed By: #### L [id number] ####[facility] ([facility])[address] [place] [address] Basophils/100 WBC (Bld) 0.2 % Normal 0.0-1.0 [facility] Comment on above: Performed By: #### L [id number] ####[facility] ([facility])[address] [place] [address] Eosinophils (Bld) [#/Vol] 0.45 10*3/uL Normal 0.00-0.50 [facility] Comment on above: Performed By: #### L [id number] ####[facility] ([facility])[address] [place] [address] Eosinophils/100 WBC (Bld) 2.9 % Normal 0.0-6.0 [facility] Comment on above: Performed By: #### L [id number] ####[facility] ([facility])[address] [place] [address] Erythrocyte distribution width (RBC) [Ratio] 15.6 % High 11.5-15.0 [facility] Comment on above: Performed By: #### L [id number] ####[facility] ([facility])[address] [place] [address] ERYTHROCYTE MEAN CORPUSCULAR HEMOGLOBIN CONCENTRATION (G/DL) BY AUTOMATED 32.9 g/dL Normal 32.0-35.0 [facility] Comment on above: Performed By: #### L [id number] ####[facility] ([facility])[address] [place] [address] Hematocrit (Bld) [Volume fraction] 25.2 % Low 39.0-50.0 [facility] Comment on above: Performed By: #### L [id number] ####[facility] ([facility])[address] [place] [address] Hemoglobin (Bld) [Mass/Vol] 8.3 g/dL Low 13.0-17.0 [facility] Comment on above: Performed By: #### L [id number] ####[facility] ([facility])[address] [place] [address] Immature granulocytes (Bld) [#/Vol] 0.24 10*3/uL High 0.00-0.20 [facility] Comment on above: Performed By: #### L [id number] ####[facility] ([facility])[address] [place] [address] Immature granulocytes/100 WBC (Bld) 1.5 % High 0.0-1.0 [facility] Comment on above: Performed By: #### L [id number] ####[facility] ([facility])[address] [place] [address] Lymphocytes (Bld) [#/Vol] 2.38 10*3/uL Normal 1.20-4.00 [facility] Comment on above: Performed By: #### L [id number] ####[facility] ([facility])[address] [place] [address] Lymphocytes/100 WBC (Bld) 15.3 % Low 20.0-45.0 [facility] Comment on above: Performed By: #### L [id number] ####[facility] ([facility])[address] [place] [address] MCH (RBC) [Entitic mass] 30.5 pg Normal 27.0-33.0 [facility] Comment on above: Performed By: #### L [id number] ####[facility] ([facility])[address] [place] [address] MCV (RBC) [Entitic vol] 92.6 fL Normal 82.0-98.0 [facility] Comment on above: Performed By: #### L [id number] ####[facility] ([facility])[address] [address] Monocytes (Bld) [#/Vol] 1.43 10*3/uL High 0.10-1.00 [facility] Comment on above: Performed By: #### L [id number] ####[facility] ([facility])[address] [place] [address] Monocytes/100 WBC (Bld) 9.2 % Normal 5.0-12.0 [facility] Comment on above: Performed By: #### L [id number] ####[facility] ([facility])[address] [place] [address] Neutrophils (Bld) [#/Vol] 10.98 10*3/uL High 1.60-7.60 [facility] Comment on above: Performed By: #### L [id number] ####[facility] ([facility])[address] [place] [address] Neutrophils/100 WBC (Bld) 70.9 % Normal 40.0-72.0 [facility] Comment on above: Performed By: #### L [id number] ####[facility] ([facility])[address] [place] [address] NRBC (PER 100 WBCS) BY AUTOMATED COUNT 0.0 % Normal 0 [facility] Comment on above: Performed By: #### L [id number] ####[facility] ([facility])[address] [place] [address] PLATELETS (10*3/UL) IN BLOOD AUTOMATED COUNT 330 10*3/uL Normal 150-400 [facility] Comment on above: Performed By: #### L [id number] ####[facility] ([facility])[address] [place] [address] RBC (Bld) [#/Vol] 2.72 10*6/uL Low 4.20-5.70 [facility] Comment on above: Performed By: #### L [id number] ####[facility] ([facility])[address] [place] [address] WBC (Bld) [#/Vol] 15.51 10*3/uL High 4.00-10.60 [facility] Comment on above: Performed By: #### L [id number] ####[facility] ([facility])[address] [place] [address] MAGNESIUMon 05-24-2025 Magnesium [Mass/Vol] 1.8 mg/dL Low 1.9-2.7 [facility] Comment on above: Performed By: #### L [id number] ####[facility] ([facility])[address] [place] [address] PHOSPHORUSon 05-24-2025 Magnesium [Mass/Vol] 2.7 mg/dL Normal 2.5-5.0 [facility] Comment on above: Performed By: #### L [id number] ####[facility] ([facility])[address] [place] [address] 30on 05-23-2025 30 The patient is Moder ately Stable - Low risk of patient condition declining or worsening The patient's goals for the shift include comfort The clinical goals for the shift include vss Normal [facility] 30 Normal [facility] BASIC METABOLIC PANELon 05-03 Anion gap [Moles/Vol] 9 mmol/L Normal 7-20 [facility] Comment on above: Performed By: #### L [id number] ####[facility] ([facility])[address] [place] [address] Calcium [Mass/Vol] 8.0 mg/dL Low 8.6-10.3 [facility] Comment on above: Performed By: #### L [id number] ####[facility] ([facility])[address] [place] [address] Chloride [Moles/Vol] 102 mmol/L Normal 98-107 [facility] Comment on above: Performed By: #### L [id number] ####[facility] ([facility])[address] [place] [address] CO2 [Moles/Vol] 29 mmol/L Normal 21-31 [facility] Comment on above: Performed By: #### L [id number] ####[facility] ([facility])[address] [place] [address] Creatinine [Mass/Vol] 0.86 mg/dL Normal 0.70-1.30 [facility] Comment on above: Performed By: #### L [id number] ####[facility] ([facility])[address] [place] [address] GLOMERULAR FILTRATION RATE ML/MIN/1.73 SQ M.PREDICTED 89.7 mL/min/1.73m*2 Normal >60.0 [facility] Comment on above: Result Comment: [facility]???s estimated glomerular filtration rate (eGFR) [...] of individuals. Performed By: #### L [id number] ####[facility] ([facility])[address] [place] [address] Glucose [Mass/Vol] 95 mg/dL Normal 70-100 [facility] Comment on above: Performed By: #### L [id number] ####[facility] ([facility])[address] [place] [address] Potassium [Moles/Vol] 3.4 mmol/L Low 3.5-5.1 [facility] Comment on above: Performed By: #### L [id number] ####[facility] ([facility])[address] [place] [address] Sodium [Moles/Vol] 137 mmol/L Normal 136-145 [facility] Comment on above: Performed By: #### L [id number] ####[facility] ([facility])[address] [place] [address] Urea nitrogen [Mass/Vol] 14 mg/dL Normal 7-25 [facility] Comment on above: Performed By: #### L [id number] ####[facility] ([facility])[address] [place] [address] UREA NITROGEN/CREATININ E (MASS RATIO) IN SER/PLAS 16.3 Normal [facility] Comment on above: Performed By: #### L [id number] ####[facility] ([facility])[address] [place] [id number] CBC WITH AUTO DIFFERENTIALon 05-23-2025 Erythrocyte distribution width (RBC) [Ratio] 15.4 % High 11.5-15.0 [facility] Comment on above: Performed By: #### L [id number] ####[facility] ([facility])[address] [place] [address] ERYTHROCYTE MEAN CORPUSCULAR HEMOGLOBIN CONCENTRATION (G/DL) BY AUTOMATED 33.6 g/dL Normal 32.0-35.0 [facility] Comment on above: Performed By: #### L [id number] ####[facility] ([facility])[address] [place] [address] Hematocrit (Bld) [Volume fraction] 25.0 % Low 39.0-50.0 [facility] Comment on above: Performed By: #### L [id number] ####[facility] ([facility])[address] [place] [address] Hemoglobin (Bld) [Mass/Vol] 8.4 g/dL Low 13.0-17.0 [facility] Comment on above: Performed By: #### L [id number] ####[facility] ([facility])[address] [place] [address] MCH (RBC) [Entitic mass] 30.7 pg Normal 27.0-33.0 [facility] Comment on above: Performed By: #### L [id number] ####[facility] ([facility])[address] [place] [address] MCV (RBC) [Entitic vol] 91.2 fL Normal 82.0-98.0 [facility] Comment on above: Performed By: #### L [id number] ####[facility] ([facility])[address] [place] [address] NRBC (PER 100 WBCS) BY AUTOMATED COUNT 0.0 % Normal 0 [facility] Comment on above: Performed By: #### L [id number] ####[facility] ([facility])[address] [place] [address] PLATELETS (10*3/UL) IN BLOOD AUTOMATED COUNT 309 10*3/uL Normal 150-400 [facility] Comment on above: Performed By: #### L [id number] ####[facility] ([facility])[address] [place] [address] RBC (Bld) [#/Vol] 2.74 10*6/uL Low 4.20-5.70 [facility] Comment on above: Performed By: #### L [id number] ####[facility] ([facility])[address] [place] [address] WBC (Bld) [#/Vol] 18.82 10*3/uL High 4.00-10.60 [facility] Comment on above: Performed By: #### L [id number] ####[facility] ([facility])[address] [place] [address] MAGNESIUMon 05-23-2025 Magnesium [Mass/Vol] 1.9 mg/dL Normal 1.9-2.7 [facility] Comment on above: Performed By: #### L [id number] ####[facility] ([facility])[address] [place] [address] MANUAL DIFFERENTIALon 2024 BASOPHILS (10*3/UL) IN BLOOD BY CALCULATION 0.04 10*3/uL Normal 0.00-0.20 [facility] Comment on above: Performed By: #### L [id number] ####[facility] ([facility])[address] [place] [address] BASOPHILS/100 LEUKOCYTES IN BLOOD BY AUTOMATED COUNT 0.2 % Normal 0.0-1.0 [facility] Comment on above: Performed By: #### L [id number] ####[facility] ([facility])[address] [place] [address] EOSINOPHILS (10*3/UL) IN BLOOD BY CALCULATION 0.45 10*3/uL Normal 0.00-0.50 [facility] Comment on above: Performed By: #### L [id number] ####[facility] ([facility])[address] [place], [place] [address] EOSINOPHILS/100 LEUKOCYTES IN BLOOD BY AUTOMATED COUNT 2.4 % Normal 0.0-6.0 [facility] Comment on above: Performed By: #### L [id number] ####[facility] ([facility])[address] [place] [address] IMMATURE GRANULOCYTES (10*3/UL) IN BLOOD BY CALCULATION 0.23 10*3/uL High 0.00-0.20 [facility] Comment on above: Performed By: #### L [id number] ####[facility] ([facility])[address] [place] [address] IMMATURE GRANULOCYTES/100 LEUKOCYTES IN BLOOD BY AUTOMATED COUNT 1.2 % High 0.0-1.0 [facility] Comment on above: Performed By: #### L [id number] ####[facility] ([facility])[address] [place] [address] LYMPHOCYTES (10*3/UL) IN BLOOD BY CALCULATION 2.03 10*3/uL Normal 1.20-4.00 [facility] Comment on above: Performed By: #### L [id number] ####[facility] ([facility])[address] [place], [place] [address] LYMPHOCYTES/100 LEUKOCYTES IN BLOOD BY AUTOMATED COUNT 10.8 % Low 20.0-45.0 [facility] Comment on above: Performed By: #### L [id number] ####[facility] ([facility])[address] [place] [address] MONOCYTES (10*3/UL) IN BLOOD BY CALCUATION 1.79 10*3/uL High 0.10-1.00 [facility] Comment on above: Performed By: #### L [id number] ####[facility] ([facility])[address] [place] [address] MONOCYTES/100 LEUKOCYTES IN BLOOD BY AUTOMATED COUNT 9.5 % Normal 5.0-12.0 [facility] Comment on above: Performed By: #### L [id number] ####[facility] ([facility])[address] [place] [address] NEUTROPHILS (10*3/UL) IN BLOOD BY CALCULATION 14.3 10*3/uL High 1.6-7.6 [facility] Comment on above: Performed By: #### L [id number] ####[facility] ([facility])[address] [place] [address] NEUTROPHILS/100 LEUKOCYTES IN BLOOD BY AUTOMATED COUNT 75.9 % High 40.0-72.0 [facility] Comment on above: Performed By: #### L [id number] ####[facility] ([facility])[address] [place] [address] PHOSPHORUSon 05-23-2025 Magnesium [Mass/Vol] 3.5 mg/dL Normal 2.5-5.0 [facility] Comment on above: Performed By: #### L [id number] ####[facility] ([facility])[address] [place] [address] 30on 05-22-2025 30 The patient is Moder ately Stable - Low risk of patient condition declining or worsening The patient's goals for the shift include comfort The clinical goals for the shift include vss comfort Normal [facility] 30 Normal [facility] BASIC METABOLIC PANELon 08 Anion gap [Moles/Vol] 11 mmol/L Normal 7-20 [facility] Comment on above: Performed By: #### L [id number] ####[facility] ([facility])[address] [place] [address] Calcium [Mass/Vol] 8.5 mg/dL Low 8.6-10.3 [facility] Comment on above: Performed By: #### L [id number] ####[facility] ([facility])[address] [place] [address] Chloride [Moles/Vol] 99 mmol/L Normal 98-107 [facility] Comment on above: Performed By: #### L [id number] ####[facility] ([facility])[address] [place] [address] CO2 [Moles/Vol] 29 mmol/L Normal 21-31 [facility] Comment on above: Performed By: #### L [id number] ####[facility] ([facility])[address] [place] [address] Creatinine [Mass/Vol] 1.42 mg/dL High 0.70-1.30 [facility] Comment on above: Performed By: #### L [id number] ####[facility] ([facility])[address] [place] [address] GLOMERULAR FILTRATION RATE ML/MIN/1.73 SQ M.PREDICTED 51.2 mL/min/1.73m*2 Low >60.0 [facility] Comment on above: Result Comment: The [facility]???s estimated glomerular filtration rate (eGFR) [...] of individuals. Performed By: #### L [id number] ####[facility] ([facility])[address] [place] [address] Glucose [Mass/Vol] 112 mg/dL High 70-100 [facility] Comment on above: Performed By: #### L [id number] ####[facility] ([facility])[address] [place] [address] Potassium [Moles/Vol] 3.5 mmol/L Normal 3.5-5.1 [facility] Comment on above: Performed By: #### L [id number] ####[facility] ([facility])[address] [place] [address] Sodium [Moles/Vol] 135 mmol/L Low 136-145 [facility] Comment on above: Performed By: #### L [id number] ####[facility] ([facility])[address] [place] [address] Urea nitrogen [Mass/Vol] 15 mg/dL Normal 7-25 [facility] Comment on above: Performed By: #### L [id number] ####[facility] ([facility])[address] [place] [address] UREA NITROGEN/CREATININ E (MASS RATIO) IN SER/PLAS 10.6 Normal [facility] Comment on above: Performed By: #### L [id number] ####[facility] ([facility])[address] [place] [address] CBC WITH AUTO DIFFERENTIALon 05-22-2025 Erythrocyte distribution width (RBC) [Ratio] 15.4 % High 11.5-15.0 [facility] Comment on above: Performed By: #### L [id number] ####[facility] ([facility])[address] [place] [address] ERYTHROCYTE MEAN CORPUSCULAR HEMOGLOBIN CONCENTRATION (G/DL) BY AUTOMATED 34.0 g/dL Normal 32.0-35.0 [facility] Comment on above: Performed By: #### L [id number] ####[facility] ([facility])[address] [place] [address] Hematocrit (Bld) [Volume fraction] 25.3 % Low 39.0-50.0 [facility] Comment on above: Performed By: #### L [id number] ####[facility] ([facility])[address] [place] [address] Hemoglobin (Bld) [Mass/Vol] 8.6 g/dL Low 13.0-17.0 [facility] Comment on above: Performed By: #### L [id number] ####[facility] ([facility])[address] [place] [address] MCH (RBC) [Entitic mass] 31.0 pg Normal 27.0-33.0 [facility] Comment on above: Performed By: #### L [id number] ####[facility] ([facility] [place])[place] [address] MCV (RBC) [Entitic vol] 91.3 fL Normal 82.0-98.0 [facility] Comment on above: Performed By: #### L [id number] ####[facility] ([facility])[address] [place] [address] NRBC (PER 100 WBCS) BY AUTOMATED COUNT 0.0 % Normal 0 [facility] Comment on above: Performed By: #### L [id number] ####[facility] ([facility])[address] [place] [address] PLATELETS (10*3/UL) IN BLOOD AUTOMATED COUNT 308 10*3/uL Normal 150-400 [facility] Comment on above: Performed By: #### L [id number] ####[facility] ([facility])[address] [place] [address] RBC (Bld) [#/Vol] 2.77 10*6/uL Low 4.20-5.70 [facility] Comment on above: Performed By: #### L [id number] ####[facility] ([facility])[address] [place] [address] WBC (Bld) [#/Vol] 19.94 10*3/uL High 4.00-10.60 [facility] Comment on above: Performed By: #### L [id number] ####[facility] ([facility])[address] [place] [address] CONSULTon 05-22-2025 CONSULT Normal [facility] CONSULT Normal [facility] MAGNESIUMon 05-22-2025 Magnesium [Mass/Vol] 1.9 mg/dL Normal 1.9-2.7 [facility] Comment on above: Performed By: #### L [id number] ####[facility] ([facility])[address] [place] [address] MANUAL DIFFERENTIALon 2024 BASOPHILS (10*3/UL) IN BLOOD BY CALCULATION 0.06 10*3/uL Normal 0.00-0.20 [facility] Comment on above: Performed By: #### L [id number] ####[facility] ([facility])[address] [place] [address] BASOPHILS/100 LEUKOCYTES IN BLOOD BY AUTOMATED COUNT 0.3 % Normal 0.0-1.0 [facility] Comment on above: Performed By: #### L [id number] ####[facility] ([facility])[address] [place] [address] EOSINOPHILS (10*3/UL) IN BLOOD BY CALCULATION 0.40 10*3/uL Normal 0.00-0.50 [facility] Comment on above: Performed By: #### L [id number] ####[facility] ([facility])[address] [place] [address] EOSINOPHILS/100 LEUKOCYTES IN BLOOD BY AUTOMATED COUNT 2.0 % Normal 0.0-6.0 [facility] Comment on above: Performed By: #### L [id number] ####[facility] ([facility])[address] [place] [address] IMMATURE GRANULOCYTES (10*3/UL) IN BLOOD BY CALCULATION 0.34 10*3/uL High 0.00-0.20 [facility] Comment on above: Performed By: #### L [id number] ####[facility] ([facility])[address] [place] [address] IMMATURE GRANULOCYTES/100 LEUKOCYTES IN BLOOD BY AUTOMATED COUNT 1.7 % High 0.0-1.0 [facility] Comment on above: Performed By: #### L [id number] ####[facility] ([facility])[address] [place] [address] LYMPHOCYTES (10*3/UL) IN BLOOD BY CALCULATION 1.85 10*3/uL Normal 1.20-4.00 [facility] Comment on above: Performed By: #### L [id number] ####[facility] ([facility])[address] [place] [address] LYMPHOCYTES/100 LEUKOCYTES IN BLOOD BY AUTOMATED COUNT 9.3 % Low 20.0-45.0 [facility] Comment on above: Performed By: #### L [id number] ####[facility] ([facility])[address] [place] [address] MONOCYTES (10*3/UL) IN BLOOD BY CALCUATION 2.09 10*3/uL High 0.10-1.00 [facility] Comment on above: Performed By: #### L [id number] ####[facility] ([facility])[address] [place] [address] MONOCYTES/100 LEUKOCYTES IN BLOOD BY AUTOMATED COUNT 10.5 % Normal 5.0-12.0 [facility] Comment on above: Performed By: #### L [id number] ####[facility] ([facility])[address] [place] [address] NEUTROPHILS (10*3/UL) IN BLOOD BY CALCULATION 15.2 10*3/uL High 1.6-7.6 [facility] Comment on above: Performed By: #### L [id number] ####[facility] ([facility])[address] [place] [address] NEUTROPHILS/100 LEUKOCYTES IN BLOOD BY AUTOMATED COUNT 76.2 % High 40.0-72.0 [facility] Comment on above: Performed By: #### L [id number] ####[facility] ([facility])[address] [place] [address] PHOSPHORUSon 05-22-2025 Magnesium [Mass/Vol] 4.0 mg/dL Normal 2.5-5.0 [facility] Comment on above: Performed By: #### L [id number] ####[facility] ([facility])[address] [place] [address] BASIC METABOLIC PANELon 05-03 Anion gap [Moles/Vol] 14 mmol/L Normal 7-20 [facility] Comment on above: Performed By: #### L [id number] ####[facility] ([facility])[address] [place] [address] Calcium [Mass/Vol] 8.1 mg/dL Low 8.6-10.3 [facility] Comment on above: Performed By: #### L [id number] ####[facility] ([facility])[address] [place] [address] Chloride [Moles/Vol] 99 mmol/L Normal 98-107 [facility] Comment on above: Performed By: #### L [id number] ####[facility] ([facility])[address] [place] [address] CO2 [Moles/Vol] 27 mmol/L Normal 21-31 [facility] Comment on above: Performed By: #### L [id number] ####[facility] ([facility])[address] [place] [address] Creatinine [Mass/Vol] 0.77 mg/dL Normal 0.70-1.30 [facility] Comment on above: Performed By: #### L [id number] ####[facility] ([facility])[address] [facility] [place] [address] GLOMERULAR FILTRATION RATE ML/MIN/1.73 SQ M.PREDICTED 92.8 mL/min/1.73m*2 Normal >60.0 [facility] Comment on above: Result Comment: [facility]???s estimated glomerular filtration rate (eGFR) [...] of individuals. Performed By: #### L [id number] ####[facility] ([facility])[address] [place] [address] Glucose [Mass/Vol] 97 mg/dL Normal 70-100 [facility] Comment on above: Performed By: #### L [id number] ####[facility] ([facility])[address] [place] [address] Potassium [Moles/Vol] 3.7 mmol/L Normal 3.5-5.1 [facility] Comment on above: Performed By: #### L [id number] ####[facility] ([facility])[address] [place] [address] Sodium [Moles/Vol] 136 mmol/L Normal 136-145 [facility] Comment on above: Performed By: #### L [id number] ####[facility] ([facility])[address] [place] [address] Urea nitrogen [Mass/Vol] 11 mg/dL Normal 7-25 [facility] Comment on above: Performed By: #### L [id number] ####[facility] ([facility])[address] [place] [address] UREA NITROGEN/CREATININ E (MASS RATIO) IN SER/PLAS 14.3 Normal [facility] Comment on above: Performed By: #### L [id number] ####[facility] ([facility])[address] [place] [address] BLOOD CULTUREon 05-21-2025 Bacteria identified Cx Nom (Bld) No growth at 5 days Normal [facility] Comment on above: Performed By: #### L [id number] ####[facility] ([facility])[address] [place] [address] Order Comment: From a different site than #1. CBC WITH AUTO DIFFERENTIALon 05-21-2025 Erythrocyte distribution width (RBC) [Ratio] 15.1 % High 11.5-15.0 [facility] Comment on above: Performed By: #### L [id number] ####[facility] ([facility])[address] [place] [address] ERYTHROCYTE MEAN CORPUSCULAR HEMOGLOBIN CONCENTRATION (G/DL) BY AUTOMATED 33.8 g/dL Normal 32.0-35.0 [facility] Comment on above: Performed By: #### L [id number] ####[facility] ([facility])[address] [place] [address] Hematocrit (Bld) [Volume fraction] 27.8 % Low 39.0-50.0 [facility] Comment on above: Performed By: #### L [id number] ####[facility] ([facility])[address] [place] [address] Hemoglobin (Bld) [Mass/Vol] 9.4 g/dL Low 13.0-17.0 [facility] Comment on above: Performed By: #### L [id number] ####[facility] ([facility])[address] [place] [address] MCH (RBC) [Entitic mass] 31.5 pg Normal 27.0-33.0 [facility] Comment on above: Performed By: #### L [id number] ####[facility] ([facility])[address] [place] [address] MCV (RBC) [Entitic vol] 93.3 fL Normal 82.0-98.0 [facility] Comment on above: Performed By: #### L [id number] ####[facility] ([facility])[address] [place] [address] NRBC (PER 100 WBCS) BY AUTOMATED COUNT 0.0 % Normal 0 [facility] Comment on above: Performed By: #### L [id number] ####[facility] ([facility])[address] [place] [address] PLATELETS (10*3/UL) IN BLOOD AUTOMATED COUNT 285 10*3/uL Normal 150-400 [facility] Comment on above: Performed By: #### L [id number] ####[facility] ([facility])[address] [place] [address] RBC (Bld) [#/Vol] 2.98 10*6/uL Low 4.20-5.70 [facility] Comment on above: Performed By: #### L [id number] ####[facility] ([facility])[address] [place] [address] WBC (Bld) [#/Vol] 19.68 10*3/uL High 4.00-10.60 [facility] Comment on above: Performed By: #### L [id number] ####[facility] ([facility])[address] [place] [address] CONSULTon 05-21-2025 CONSULT Normal [facility] CT ABDOMEN PELVIS W IV CONTR Kala 05-21-2025 CT ABDOMEN PELVIS W IV CONTRAST Invalid Interpretation Code [facility] Comment on above: Order Comment: With double oral contrast and longer than standard wait prior to imaging MAGNESIUMon 05-21-2025 Magnesium [Mass/Vol] 1.8 mg/dL Low 1.9-2.7 [facility] Comment on above: Performed By: #### L [id number] ####[facility] ([facility])[address] [place] [address] MANUAL DIFFERENTIALon 2024 BASOPHILS (10*3/UL) IN BLOOD BY CALCULATION 0.00 10*3/uL Normal 0.00-0.20 [facility] Comment on above: Performed By: #### L [id number] ####[facility] ([facility])[address] [place] [address] BASOPHILS/100 LEUKOCYTES IN BLOOD BY AUTOMATED COUNT 0.0 % Normal 0.0-1.0 [facility] Comment on above: Performed By: #### L [id number] ####[facility] ([facility])[address] [place] [address] EOSINOPHILS (10*3/UL) IN BLOOD BY CALCULATION 0.14 10*3/uL Normal 0.00-0.50 [facility] Comment on above: Performed By: #### L [id number] ####[facility] ([facility])[address] [place] [address] EOSINOPHILS/100 LEUKOCYTES IN BLOOD BY AUTOMATED COUNT 0.7 % Normal 0.0-6.0 [facility] Comment on above: Performed By: #### L [id number] ####[facility] ([facility])[address] [place] [address] LYMPHOCYTES (10*3/UL) IN BLOOD BY CALCULATION 1.30 10*3/uL Normal 1.20-4.00 [facility] Comment on above: Performed By: #### L [id number] ####[facility] ([facility])[address] [place] [address] LYMPHOCYTES/100 LEUKOCYTES IN BLOOD BY AUTOMATED COUNT 6.6 % Low 20.0-45.0 [facility] Comment on above: Performed By: #### L [id number] ####[facility] ([facility])[address] [place] [address] METAMYELOCYTES (10*3/UL) IN BLOOD BY CALCULATION 0.14 10*3/uL High 0.00 [facility] Comment on above: Performed By: #### L [id number] ####[facility] ([facility])[address] [place] [address] METAMYELOCYTES/100 LEUKOCYTES IN BLOOD CELLAVISION 0.7 % High 0.0-0.0 [facility] Comment on above: Performed By: #### L [id number] ####[facility] ([facility])[address] [place] [address] MONOCYTES (10*3/UL) IN BLOOD BY CALCUATION 1.55 10*3/uL High 0.10-1.00 [facility] Comment on above: Performed By: #### L [id number] ####[facility] ([facility])[address] [place] [address] MONOCYTES/100 LEUKOCYTES IN BLOOD BY AUTOMATED COUNT 7.9 % Normal 5.0-12.0 [facility] Comment on above: Performed By: #### L [id number] ####[facility] ([facility])[address] [place], [place] [id number] MYELOCYTES (10*3/UL) IN BLOOD BY CALCULATION 0.14 10*3/uL High 0.00 [facility] Comment on above: Performed By: #### L [id number] ####[facility] ([facility])[address] [place] [address] MYELOCYTES/100 LEUKOCYTES IN BLOOD CELLAVISION 0.7 % High 0.0-0.0 [facility] Comment on above: Performed By: #### L [id number] ####[facility] ([facility])[address] [place] [address] NEUTROPHILS (10*3/UL) IN BLOOD BY CALCULATION 16.4 10*3/uL High 1.6-7.6 [facility] Comment on above: Performed By: #### L [id number] ####[facility] ([facility])[address] [place] [address] NEUTROPHILS/100 LEUKOCYTES IN BLOOD BY AUTOMATED COUNT 83.4 % High 40.0-72.0 [facility] Comment on above: Performed By: #### L [id number] ####[facility] ([facility])[address] [place] [address] PLASMA CELLS/100 LEUKOCYTES IN BLOOD 0 % Normal 0 [facility] Comment on above: Performed By: #### L [id number] ####[facility] ([facility])[address] [place] [address] PLATELETS GIANT PRESENCE IN BLOOD BY LIGHT MICROSCOPY Present Normal [facility] Comment on above: Performed By: #### L [id number] ####[facility] ([facility])[address] [place] [address] VARIANT LYMPHOCYTES (10*3/UL) IN BLOOD BY CALCULATION 0.00 10*3/uL Normal 0.00 [facility] Comment on above: Performed By: #### L [id number] ####[facility] ([facility])[address] [place] [address] VARIANT LYMPHOCYTES/100 LEUKOCYTES IN BLOOD CELLAVISION 0.0 % Normal 0.0-0.0 [facility] Comment on above: Performed By: #### L [id number] ####[facility] ([facility])[address] [place] [address] MRSA/MSSA DNA NASALon 2024 MRSA DNA Negative Normal Negative [facility] Comment on above: Order Comment: [...] preclude nasal colonization. Performed By: #### L [id number] ####[facility] ([facility])[address] [place] [address] MSSA DNA Negative Normal Negative [facility] Comment on above: Order Comment: [...] preclude nasal colonization. Performed By: #### L [id number] ####[facility] ([facility])[address] [place] [address] PHOSPHORUSon 05-21-2025 Magnesium [Mass/Vol] 4.2 mg/dL Normal 2.5-5.0 [facility] Comment on above: Performed By: #### L [id number] ####[facility] ([facility])[address] [place] [address] URINALYSISon 05-21-2025 BILIRUBIN, TOTAL PRESENCE IN URINE Negative Normal Negative [facility] Comment on above: Performed By: #### L [id number] ####[facility] ([facility])[address] [place] [address] Clarity (U) Clear Normal Clear, Other [facility] Comment on above: Performed By: #### L [id number] ####[facility] ([facility])[address] [place] [address] Color (U) Yellow Normal Yellow, Light Yellow, Colorless [facility] Comment on above: Performed By: #### L [id number] ####[facility] ([facility])[address] [place] [address] GLUCOSE (MG/DL) IN URINE Normal Normal Normal [facility] Comment on above: Performed By: #### L [id number] ####[facility] ([facility])[address] [place] [address] HEMOGLOBIN PRESENCE IN URINE Small Abnormal Negative [facility] Comment on above: Performed By: #### L [id number] ####[facility] ([facility])[address] [place] [address] Ketones Ql (U) 40 mg/dL Abnormal Negative [facility] Comment on above: Performed By: #### L [id number] ####[facility] ([facility])[address] [place] [address] LEUKOCYTE ESTERASE PRESENCE IN URINE BY TEST STRIP Moderate Abnormal Negative [facility] Comment on above: Performed By: #### L [id number] ####[facility] ([facility])[address] [place] [address] NITRITE PRESENCE IN URINE Negative Normal Negative [facility] Comment on above: Performed By: #### L [id number] ####[facility] ([facility])[address] [place] [address] pH (U) 5.5 [pH] Normal 5.0-8.0 [facility] Comment on above: Performed By: #### L [id number] ####[facility] ([facility])[address] [place] [address] Protein (U) [Mass/Vol] 30 mg/dL Abnormal Negative [facility] Comment on above: Performed By: #### L [id number] ####[facility] ([facility])[address] [place] [address] Specific gravity (U) [Rel density] 1.050 High 1.010-1.03 0 [facility] Comment on above: Performed By: #### L [id number] ####[facility] ([facility])[address] [place] [address] UROBILINOGEN (MG/DL) IN URINE Normal Normal Normal [facility] Comment on above: Performed By: #### L [id number] ####[facility] ([facility])[address] [place] [address] URINALYSIS MICROSCOPICon RBC (#/HPF) IN URINE SEDIMENT 0-2 Normal None Seen, 0-2 [facility] Comment on above: Order Comment: Micro scopic unspun. Less than 3mL received Performed By: #### L [id number] ####[facility] ([facility])[address] [place] [address] SQUAMOUS EPITHELIAL CELLS (#/LPF) IN URINE SEDIMENT Occasional Normal None Seen, Occasional , Few [facility] Comment on above: Order Comment: Micro scopic unspun. Less than 3mL received Performed By: #### L [id number] ####[facility] ([facility])[address] [place] [address] WBC (LEUKOCYTE) (#/HPF) IN URINE SEDIMENT 6-10 Abnormal None Seen, 0-2 [facility] Comment on above: Order Comment: Micro scopic unspun. Less than 3mL received Performed By: #### L [id number] ####[facility] ([facility])[address] [place] [address] URINE CULTURE, ROUTINEon Bacteria identified Cx Nom (U) No growth at 48 hours Normal [facility] Comment on above: Performed By: #### L [id number] ####[facility] ([facility])[address] [place] [address] Bacteria identified Cx Nom (U) <10,000 CFU/ML No Significant Growth Normal [facility] Comment on above: Performed By: #### L [id number] ####[facility] ([facility])[address] [place] [address] 30on 05-20-2025 30 The patient is Moder ately Stable - Low risk of patient condition declining or worsening The patient's goals for the shift include comfort, safety The clinical goals for the shift include stable vitals, comfort, pain control Normal [facility] BASIC METABOLIC PANELon 05-02 Anion gap [Moles/Vol] 11 mmol/L Normal 7-20 [facility] Comment on above: Performed By: #### L [id number] ####[facility] ([facility])[address] [place] [address] Calcium [Mass/Vol] 7.6 mg/dL Low 8.6-10.3 [facility] Comment on above: Performed By: #### L [id number] ####[facility] ([facility])[address] [place] [address] Chloride [Moles/Vol] 100 mmol/L Normal 98-107 [facility] Comment on above: Performed By: #### L [id number] ####[facility] ([facility])[address] [place] [address] CO2 [Moles/Vol] 28 mmol/L Normal 21-31 [facility] Comment on above: Performed By: #### L [id number] ####[facility] ([facility])[address] [place] [address] Creatinine [Mass/Vol] 0.54 mg/dL Low 0.70-1.30 [facility] Comment on above: Performed By: #### L [id number] ####[facility] ([facility])[address] [place] [address] GLOMERULAR FILTRATION RATE ML/MIN/1.73 SQ M.PREDICTED 103.3 mL/min/1.73m*2 Normal >60.0 [facility] Comment on above: Result Comment: The [facility]???s estimated glomerular filtration rate (eGFR) [...] of individuals. Performed By: #### L [id number] ####[facility] ([facility])[address] [place] [address] Glucose [Mass/Vol] 79 mg/dL Normal 70-100 [facility] Comment on above: Performed By: #### L [id number] ####[facility] ([facility])[address] [place] [address] Potassium [Moles/Vol] 3.5 mmol/L Normal 3.5-5.1 [facility] Comment on above: Performed By: #### L [id number] ####[facility] ([facility])[address] [place] [address] Sodium [Moles/Vol] 135 mmol/L Low 136-145 [facility] Comment on above: Performed By: #### L [id number] ####[facility] ([facility])[address] [facility] [place] [address] Urea nitrogen [Mass/Vol] 9 mg/dL Normal 7-25 [facility] Comment on above: Performed By: #### L [id number] ####[facility] ([facility])[address] [place] [address] UREA NITROGEN/CREATININ E (MASS RATIO) IN SER/PLAS 16.7 Normal [facility] Comment on above: Performed By: #### L [id number] ####[facility] ([facility])[address] [facility] [place] [address] CBC WITH AUTO DIFFERENTIALon 05-20-2025 Erythrocyte distribution width (RBC) [Ratio] 14.6 % Normal 11.5-15.0 [facility] Comment on above: Performed By: #### L [id number] ####[facility] ([facility])[address] [facility] [place] [address] ERYTHROCYTE MEAN CORPUSCULAR HEMOGLOBIN CONCENTRATION (G/DL) BY AUTOMATED 34.0 g/dL Normal 32.0-35.0 [facility] Comment on above: Performed By: #### L [id number] ####[facility] ([facility])[address] [place], [place] [address] Hematocrit (Bld) [Volume fraction] 25.6 % Low 39.0-50.0 [facility] Comment on above: Performed By: #### L [id number] ####[facility] ([facility])[address] [place] [address] Hemoglobin (Bld) [Mass/Vol] 8.7 g/dL Low 13.0-17.0 [facility] Comment on above: Performed By: #### L [id number] ####[facility] ([facility])[address] [place], [place] [address] MCH (RBC) [Entitic mass] 31.0 pg Normal 27.0-33.0 [facility] Comment on above: Performed By: #### L [id number] ####[facility] ([facility])[address] [place], [place] [address] MCV (RBC) [Entitic vol] 91.1 fL Normal 82.0-98.0 [facility] Comment on above: Performed By: #### L [id number] ####[facility] ([facility])[address] [place], [place] [address] NRBC (PER 100 WBCS) BY AUTOMATED COUNT 0.0 % Normal 0 [facility] Comment on above: Performed By: #### L [id number] ####[facility] ([facility])[address] [place] [address] PLATELETS (10*3/UL) IN BLOOD AUTOMATED COUNT 219 10*3/uL Normal 150-400 [facility] Comment on above: Performed By: #### L [id number] ####[facility] ([facility])[address] [place], [place] [address] RBC (Bld) [#/Vol] 2.81 10*6/uL Low 4.20-5.70 [facility] Comment on above: Performed By: #### L [id number] ####[facility] ([facility])[address] [place] [address] WBC (Bld) [#/Vol] 14.31 10*3/uL High 4.00-10.60 [facility] Comment on above: Performed By: #### L [id number] ####[facility] ([facility])[address] [place] [address] CT ABDOMEN PELVIS W IV CONTR Kala 05-20-2025 CT ABDOMEN PELVIS W IV CONTRAST Normal [facility] CTA CHEST W IV CONTRASTon CTA CHEST W IV CONTRAST Invalid Interpretation Code [facility] DSon 05-20-2025 DS Normal [facility] MAGNESIUMon 05-20-2025 Magnesium [Mass/Vol] 1.6 mg/dL Low 1.9-2.7 [facility] Comment on above: Performed By: #### L [id number] ####[facility] ([facility])[address] [place] [address] MANUAL DIFFERENTIALon 2024 BASOPHILS (10*3/UL) IN BLOOD BY CALCULATION 0.04 10*3/uL Normal 0.00-0.20 [facility] Comment on above: Performed By: #### L [id number] ####[facility] ([facility])[address] [place] [address] BASOPHILS/100 LEUKOCYTES IN BLOOD BY AUTOMATED COUNT 0.3 % Normal 0.0-1.0 [facility] Comment on above: Performed By: #### L [id number] ####[facility] ([facility])[address] [place] [address] EOSINOPHILS (10*3/UL) IN BLOOD BY CALCULATION 0.72 10*3/uL High 0.00-0.50 [facility] Comment on above: Performed By: #### L [id number] ####[facility] ([facility])[address] [place] [address] EOSINOPHILS/100 LEUKOCYTES IN BLOOD BY AUTOMATED COUNT 5.0 % Normal 0.0-6.0 [facility] Comment on above: Performed By: #### L [id number] ####[facility] ([facility])[address] [place] [address] IMMATURE GRANULOCYTES (10*3/UL) IN BLOOD BY CALCULATION 0.23 10*3/uL High 0.00-0.20 [facility] Comment on above: Performed By: #### L [id number] ####[facility] ([facility])[address] [place] [address] IMMATURE GRANULOCYTES/100 LEUKOCYTES IN BLOOD BY AUTOMATED COUNT 1.6 % High 0.0-1.0 [facility] Comment on above: Performed By: #### L [id number] ####[facility] ([facility])[address] [place] [address] LYMPHOCYTES (10*3/UL) IN BLOOD BY CALCULATION 2.68 10*3/uL Normal 1.20-4.00 [facility] Comment on above: Performed By: #### L [id number] ####[facility] ([facility])[address] [place] [address] LYMPHOCYTES/100 LEUKOCYTES IN BLOOD BY AUTOMATED COUNT 18.7 % Low 20.0-45.0 [facility] Comment on above: Performed By: #### L [id number] ####[facility] ([facility])[address] [place] [address] MONOCYTES (10*3/UL) IN BLOOD BY CALCUATION 1.57 10*3/uL High 0.10-1.00 [facility] Comment on above: Performed By: #### L [id number] ####[facility] ([facility])[address] [place] [address] MONOCYTES/100 LEUKOCYTES IN BLOOD BY AUTOMATED COUNT 11.0 % Normal 5.0-12.0 [facility] Comment on above: Performed By: #### L [id number] ####[facility] ([facility])[address] [place] [address] NEUTROPHILS (10*3/UL) IN BLOOD BY CALCULATION 9.1 10*3/uL High 1.6-7.6 [facility] Comment on above: Performed By: #### L [id number] ####[facility] ([facility])[address] [place] [address] NEUTROPHILS/100 LEUKOCYTES IN BLOOD BY AUTOMATED COUNT 63.4 % Normal 40.0-72.0 [facility] Comment on above: Performed By: #### L [id number] ####[facility] ([facility])[address] [place] [address] PHOSPHORUSon 05-20-2025 Magnesium [Mass/Vol] 2.7 mg/dL Normal 2.5-5.0 [facility] Comment on above: Performed By: #### L [id number] ####[facility] ([facility])[address] [place] [address] URINALYSISon 05-20-2025 BILIRUBIN, TOTAL PRESENCE IN URINE Negative Normal Negative [facility] Comment on above: Order Comment: Micro scopics not performed on urines with negative chemical reactions unless requested on original order. Performed By: #### L [id number] ####[facility] ([facility])[address] [place] [address] Clarity (U) Clear Normal Clear [facility] Comment on above: Order Comment: Micro scopics not performed on urines with negative chemical reactions unless requested on original order. Performed By: #### L [id number] ####[facility] ([facility])[address] [place] [address] Color (U) Yellow Normal Colorless, Yellow, Light-Power ow [facility] Comment on above: Order Comment: Micro scopics not performed on urines with negative chemical reactions unless requested on original order. Performed By: #### L [id number] ####[facility] ([facility])[address] [place] [address] GLUCOSE (MG/DL) IN URINE Normal Normal Normal [facility] Comment on above: Order Comment: Micro scopics not performed on urines with negative chemical reactions unless requested on original order. Performed By: #### L [id number] ####[facility] ([facility])[address] [place] [address] HEMOGLOBIN PRESENCE IN URINE Negative Normal Negative [facility] Comment on above: Order Comment: Micro scopics not performed on urines with negative chemical reactions unless requested on original order. Performed By: #### L [id number] ####[facility] ([facility])[address] [place] [address] Ketones Ql (U) Negative Normal Negative [facility] Comment on above: Order Comment: Micro scopics not performed on urines with negative chemical reactions unless requested on original order. Performed By: #### L [id number] ####[facility] ([facility])[address] [place] [address] LEUKOCYTE ESTERASE PRESENCE IN URINE BY TEST STRIP Negative Normal Negative [facility] Comment on above: Order Comment: Micro scopics not performed on urines with negative chemical reactions unless requested on original order. Performed By: #### L [id number] ####[facility] ([facility])[address] [place] [address] NITRITE PRESENCE IN URINE Negative Normal Negative [facility] Comment on above: Order Comment: Micro scopics not performed on urines with negative chemical reactions unless requested on original order. Performed By: #### L [id number] ####[facility] ([facility])[address] [place] [address] pH (U) 5.0 [pH] Normal 5.0-8.0 [facility] Comment on above: Order Comment: Micro scopics not performed on urines with negative chemical reactions unless requested on original order. Performed By: #### L [id number] ####[facility] ([facility])[address] [facility] [address] Protein (U) [Mass/Vol] Negative Normal Negative [facility] Comment on above: Order Comment: Micro scopics not performed on urines with negative chemical reactions unless requested on original order. Performed By: #### L [id number] ####[facility] ([facility])[address] [place] [address] Specific gravity (U) [Rel density] 1.000 Low 1.010-1.03 0 [facility] Comment on above: Order Comment: Micro scopics not performed on urines with negative chemical reactions unless requested on original order. Performed By: #### L [id number] ####[facility] ([facility])[address] [place] [address] UROBILINOGEN (MG/DL) IN URINE Normal Normal Normal [facility] Comment on above: Order Comment: Micro scopics not performed on urines with negative chemical reactions unless requested on original order. Performed By: #### L [id number] ####[facility] ([facility])[address] [place] [address] 30on 05-19-2025 30 The patient is Moder ately Stable - Low risk of patient condition declining or worsening The patient's goals for the shift include comfort, safety, participate in therapy, The clinical goals for the shift include get stronger, Vss, labs wnl, comfort Normal [facility] BASIC METABOLIC PANELon 05-02 Anion gap [Moles/Vol] 11 mmol/L Normal 7-20 [facility] Comment on above: Performed By: #### L [id number] ####[facility] ([facility])[address] [place] [address] Calcium [Mass/Vol] 7.6 mg/dL Low 8.6-10.3 [facility] Comment on above: Performed By: #### L [id number] ####[facility] ([facility])[address] [place] [address] Chloride [Moles/Vol] 101 mmol/L Normal 98-107 [facility] Comment on above: Performed By: #### L [id number] ####[facility] ([facility])[address] [place] [address] CO2 [Moles/Vol] 28 mmol/L Normal 21-31 [facility] Comment on above: Performed By: #### L [id number] ####[facility] ([facility])[address] [place] [address] Creatinine [Mass/Vol] 0.57 mg/dL Low 0.70-1.30 [facility] Comment on above: Performed By: #### L [id number] ####[facility] ([facility])[address] [place] [address] GLOMERULAR FILTRATION RATE ML/MIN/1.73 SQ M.PREDICTED 101.6 mL/min/1.73m*2 Normal >60.0 [facility] Comment on above: Result Comment: [facility]???s estimated glomerular filtration rate (eGFR) [...] of individuals. Performed By: #### L [id number] ####[facility] ([facility])[address] [place] [address] Glucose [Mass/Vol] 74 mg/dL Normal 70-100 [facility] Comment on above: Performed By: #### L [id number] ####[facility] ([facility])[address] [place] [address] Potassium [Moles/Vol] 3.7 mmol/L Normal 3.5-5.1 [facility] Comment on above: Performed By: #### L [id number] ####[facility] ([facility])[address] [place] [address] Sodium [Moles/Vol] 136 mmol/L Normal 136-145 [facility] Comment on above: Performed By: #### L [id number] ####[facility] ([facility])[address] [place] [address] Urea nitrogen [Mass/Vol] 11 mg/dL Normal 7-25 [facility] Comment on above: Performed By: #### L [id number] ####[facility] ([facility])[address] [place] [address] UREA NITROGEN/CREATININ E (MASS RATIO) IN SER/PLAS 19.3 Normal [facility] Comment on above: Performed By: #### L [id number] ####[facility] ([facility])[address] [place] [address] CBC WITH AUTO DIFFERENTIALon 05-19-2025 Erythrocyte distribution width (RBC) [Ratio] 14.7 % Normal 11.5-15.0 [facility] Comment on above: Performed By: #### L [id number] ####[facility] ([facility])[address] [place] [address] ERYTHROCYTE MEAN CORPUSCULAR HEMOGLOBIN CONCENTRATION (G/DL) BY AUTOMATED 33.3 g/dL Normal 32.0-35.0 [facility] Comment on above: Performed By: #### L [id number] ####[facility] ([facility])[address] [place] [address] Hematocrit (Bld) [Volume fraction] 26.7 % Low 39.0-50.0 [facility] Comment on above: Performed By: #### L [id number] ####[facility] ([facility])[address] [place] [address] Hemoglobin (Bld) [Mass/Vol] 8.9 g/dL Low 13.0-17.0 [facility] Comment on above: Performed By: #### L [id number] ####[facility] ([facility])[address] [place] [address] MCH (RBC) [Entitic mass] 30.8 pg Normal 27.0-33.0 [facility] Comment on above: Performed By: #### L [id number] ####[facility] ([facility])[address] [place] [address] MCV (RBC) [Entitic vol] 92.4 fL Normal 82.0-98.0 [facility] Comment on above: Performed By: #### L [id number] ####[facility] ([facility])[address] [place] [address] NRBC (PER 100 WBCS) BY AUTOMATED COUNT 0.0 % Normal 0 [facility] Comment on above: Performed By: #### L [id number] ####[facility] ([facility])[address] [place] [address] PLATELETS (10*3/UL) IN BLOOD AUTOMATED COUNT 187 10*3/uL Normal 150-400 [facility] Comment on above: Performed By: #### L [id number] ####[facility] ([facility])[address] [place] [address] RBC (Bld) [#/Vol] 2.89 10*6/uL Low 4.20-5.70 [facility] Comment on above: Performed By: #### L [id number] ####[facility] ([facility])[address] [place] [address] WBC (Bld) [#/Vol] 14.21 10*3/uL High 4.00-10.60 [facility] Comment on above: Performed By: #### L [id number] ####[facility] ([facility])[address] [place] [address] MAGNESIUMon 05-19-2025 Magnesium [Mass/Vol] 1.6 mg/dL Low 1.9-2.7 [facility] Comment on above: Performed By: #### L [id number] ####[facility] ([facility])[address] [place] [address] MANUAL DIFFERENTIALon 2024 BASOPHILS (10*3/UL) IN BLOOD BY CALCULATION 0.03 10*3/uL Normal 0.00-0.20 [facility] Comment on above: Performed By: #### L [id number] ####[facility] ([facility])[address] [place] [address] BASOPHILS/100 LEUKOCYTES IN BLOOD BY AUTOMATED COUNT 0.2 % Normal 0.0-1.0 [facility] Comment on above: Performed By: #### L [id number] ####[facility] ([facility])[address] [place] [address] EOSINOPHILS (10*3/UL) IN BLOOD BY CALCULATION 0.87 10*3/uL High 0.00-0.50 [facility] Comment on above: Performed By: #### L [id number] ####[facility] ([facility])[address] [place] [address] EOSINOPHILS/100 LEUKOCYTES IN BLOOD BY AUTOMATED COUNT 6.1 % High 0.0-6.0 [facility] Comment on above: Performed By: #### L [id number] ####[facility] ([facility])[address] [place] [address] IMMATURE GRANULOCYTES (10*3/UL) IN BLOOD BY CALCULATION 0.18 10*3/uL Normal 0.00-0.20 [facility] Comment on above: Performed By: #### L [id number] ####[facility] ([facility])[address] [place] [address] IMMATURE GRANULOCYTES/100 LEUKOCYTES IN BLOOD BY AUTOMATED COUNT 1.3 % High 0.0-1.0 [facility] Comment on above: Performed By: #### L [id number] ####[facility] ([facility])[address] [place] [address] LYMPHOCYTES (10*3/UL) IN BLOOD BY CALCULATION 2.64 10*3/uL Normal 1.20-4.00 [facility] Comment on above: Performed By: #### L [id number] ####[facility] ([facility])[address] [place] [address] LYMPHOCYTES/100 LEUKOCYTES IN BLOOD BY AUTOMATED COUNT 18.6 % Low 20.0-45.0 [facility] Comment on above: Performed By: #### L [id number] ####[facility] ([facility])[address] [place] [address] MONOCYTES (10*3/UL) IN BLOOD BY CALCUATION 1.68 10*3/uL High 0.10-1.00 [facility] Comment on above: Performed By: #### L [id number] ####[facility] ([facility])[address] [place] [address] MONOCYTES/100 LEUKOCYTES IN BLOOD BY AUTOMATED COUNT 11.8 % Normal 5.0-12.0 [facility] Comment on above: Performed By: #### L [id number] ####[facility] ([facility])[address] [place] [address] NEUTROPHILS (10*3/UL) IN BLOOD BY CALCULATION 8.8 10*3/uL High 1.6-7.6 [facility] Comment on above: Performed By: #### L [id number] ####[facility] ([facility])[address] [place] [address] NEUTROPHILS/100 LEUKOCYTES IN BLOOD BY AUTOMATED COUNT 62.0 % Normal 40.0-72.0 [facility] Comment on above: Performed By: #### L [id number] ####[facility] ([facility])[address] [place] [address] PHOSPHORUSon 05-19-2025 Magnesium [Mass/Vol] 2.7 mg/dL Normal 2.5-5.0 [facility] Comment on above: Performed By: #### L [id number] ####[facility] ([facility])[address] [place] [address] 30on 05-18-2025 30 The patient is Moder ately Stable - Low risk of patient condition declining or worsening The patient's goals for the shift include comfort and safety The clinical goals for the shift include increase strength, vss, comfort, labs wnl Normal [facility] 30 Normal [facility] BASIC METABOLIC PANELon 05-02 Anion gap [Moles/Vol] 8 mmol/L Normal 7-20 [facility] Comment on above: Performed By: #### L [id number] ####[facility] ([facility])[address] [place] [address] Calcium [Mass/Vol] 7.4 mg/dL Low 8.6-10.3 [facility] Comment on above: Performed By: #### L [id number] ####[facility] ([facility])[address] [place] [address] Chloride [Moles/Vol] 100 mmol/L Normal 98-107 [facility] Comment on above: Performed By: #### L [id number] ####[facility] ([facility])[address] [place] [address] CO2 [Moles/Vol] 31 mmol/L Normal 21-31 [facility] Comment on above: Performed By: #### L [id number] ####[facility] ([facility])[address] [place] [address] Creatinine [Mass/Vol] 0.54 mg/dL Low 0.70-1.30 [facility] Comment on above: Performed By: #### L [id number] ####[facility] ([facility])[address] [place] [address] GLOMERULAR FILTRATION RATE ML/MIN/1.73 SQ M.PREDICTED 103.3 mL/min/1.73m*2 Normal >60.0 [facility] Comment on above: Result Comment: The [facility]???s estimated glomerular filtration rate (eGFR) [...] of individuals. Performed By: #### L [id number] ####[facility] ([facility])[address] [place] [address] Glucose [Mass/Vol] 106 mg/dL High 70-100 [facility] Comment on above: Performed By: #### L [id number] ####[facility] ([facility])[address] [place] [address] Potassium [Moles/Vol] 3.4 mmol/L Low 3.5-5.1 [facility] Comment on above: Performed By: #### L [id number] ####[facility] ([facility])[address] [place] [address] Sodium [Moles/Vol] 136 mmol/L Normal 136-145 [facility] Comment on above: Performed By: #### L [id number] ####[facility] ([facility])[address] [place] [address] Urea nitrogen [Mass/Vol] 11 mg/dL Normal 7-25 [facility] Comment on above: Performed By: #### L [id number] ####[facility] ([facility])[address] [place] [address] UREA NITROGEN/CREATININ E (MASS RATIO) IN SER/PLAS 20.4 Normal [facility] Comment on above: Performed By: #### L [id number] ####[facility] ([facility])[address] [place] [address] CBC WITH AUTO DIFFERENTIALon 05-18-2025 Basophils (Bld) [#/Vol] 0.03 10*3/uL Normal 0.00-0.20 [facility] Comment on above: Performed By: #### L [id number] ####[facility] ([facility])[address] [place] [address] Basophils/100 WBC (Bld) 0.2 % Normal 0.0-1.0 [facility] Comment on above: Performed By: #### L [id number] ####[facility] ([facility])[address] [place] [address] Eosinophils (Bld) [#/Vol] 0.70 10*3/uL High 0.00-0.50 [facility] Comment on above: Performed By: #### L [id number] ####[facility] ([facility])[address] [place] [address] Eosinophils/100 WBC (Bld) 5.4 % Normal 0.0-6.0 [facility] Comment on above: Performed By: #### L [id number] ####[facility] ([facility])[address] [place] [address] Erythrocyte distribution width (RBC) [Ratio] 14.6 % Normal 11.5-15.0 [facility] Comment on above: Performed By: #### L [id number] ####[facility] ([facility])[address] [place] [address] ERYTHROCYTE MEAN CORPUSCULAR HEMOGLOBIN CONCENTRATION (G/DL) BY AUTOMATED 33.9 g/dL Normal 32.0-35.0 [facility] Comment on above: Performed By: #### L [id number] ####[facility] ([facility])[address] [place] [address] Hematocrit (Bld) [Volume fraction] 24.5 % Low 39.0-50.0 [facility] Comment on above: Performed By: #### L [id number] ####[facility] ([facility])[address] [place] [address] Hemoglobin (Bld) [Mass/Vol] 8.3 g/dL Low 13.0-17.0 [facility] Comment on above: Performed By: #### L [id number] ####[facility] ([facility])[address] [place] [address] Immature granulocytes (Bld) [#/Vol] 0.10 10*3/uL Normal 0.00-0.20 [facility] Comment on above: Performed By: #### L [id number] ####[facility] ([facility])[address] [place] [address] Immature granulocytes/100 WBC (Bld) 0.8 % Normal 0.0-1.0 [facility] Comment on above: Performed By: #### L [id number] ####[facility] ([facility])[address] [place] [address] Lymphocytes (Bld) [#/Vol] 1.98 10*3/uL Normal 1.20-4.00 [facility] Comment on above: Performed By: #### L [id number] ####[facility] ([facility])[address] [place] [address] Lymphocytes/100 WBC (Bld) 15.3 % Low 20.0-45.0 [facility] Comment on above: Performed By: #### L [id number] ####[facility] ([facility])[address] [place] [address] MCH (RBC) [Entitic mass] 31.0 pg Normal 27.0-33.0 [facility] Comment on above: Performed By: #### L [id number] ####[facility] ([facility])[address] [place] [address] MCV (RBC) [Entitic vol] 91.4 fL Normal 82.0-98.0 [facility] Comment on above: Performed By: #### L [id number] ####[facility] ([facility])[address] [place] [address] Monocytes (Bld) [#/Vol] 1.37 10*3/uL High 0.10-1.00 [facility] Comment on above: Performed By: #### L [id number] ####[facility] ([facility])[address] [place] [address] Monocytes/100 WBC (Bld) 10.6 % Normal 5.0-12.0 [facility] Comment on above: Performed By: #### L [id number] ####[facility] ([facility])[address] [place] [address] Neutrophils (Bld) [#/Vol] 8.80 10*3/uL High 1.60-7.60 [facility] Comment on above: Performed By: #### L [id number] ####[facility] ([facility])[address] [place] [address] Neutrophils/100 WBC (Bld) 67.7 % Normal 40.0-72.0 [facility] Comment on above: Performed By: #### L [id number] ####[facility] ([facility])[address] [place] [address] NRBC (PER 100 WBCS) BY AUTOMATED COUNT 0.0 % Normal 0 [facility] Comment on above: Performed By: #### L [id number] ####[facility] ([facility])[address] [place] [address] PLATELETS (10*3/UL) IN BLOOD AUTOMATED COUNT 167 10*3/uL Normal 150-400 [facility] Comment on above: Performed By: #### L [id number] ####[facility] ([facility])[address] [place] [address] RBC (Bld) [#/Vol] 2.68 10*6/uL Low 4.20-5.70 [facility] Comment on above: Performed By: #### L [id number] ####[facility] ([facility])[address] [place] [address] WBC (Bld) [#/Vol] 12.98 10*3/uL High 4.00-10.60 [facility] Comment on above: Performed By: #### L [id number] ####[facility] ([facility])[address] [place] [address] CONSULTon 05-18-2025 CONSULT Normal [facility] MAGNESIUMon 05-18-2025 Magnesium [Mass/Vol] 1.6 mg/dL Low 1.9-2.7 [facility] Comment on above: Performed By: #### L [id number] ####[facility] ([facility])[address] [place] [address] PHOSPHORUSon 05-18-2025 Magnesium [Mass/Vol] 3.6 mg/dL Normal 2.5-5.0 [facility] Comment on above: Performed By: #### L [id number] ####[facility] ([facility])[address] [place] [address] 30on 05-17-2025 30 Normal [facility] BASIC METABOLIC PANELon 05-02 Anion gap [Moles/Vol] 9 mmol/L Normal 7-20 [facility] Comment on above: Performed By: #### L [id number] ####[facility] ([facility])[address] [place] [address] Calcium [Mass/Vol] 7.9 mg/dL Low 8.6-10.3 [facility] Comment on above: Performed By: #### L [id number] ####[facility] ([facility])[address] [place] [address] Chloride [Moles/Vol] 101 mmol/L Normal 98-107 [facility] Comment on above: Performed By: #### L [id number] ####[facility] ([facility])[address] [place] [address] CO2 [Moles/Vol] 29 mmol/L Normal 21-31 [facility] Comment on above: Performed By: #### L [id number] ####[facility] ([facility])[address] [place] [address] Creatinine [Mass/Vol] 0.57 mg/dL Low 0.70-1.30 [facility] Comment on above: Performed By: #### L [id number] ####[facility] ([facility])[address] [place] [address] GLOMERULAR FILTRATION RATE ML/MIN/1.73 SQ M.PREDICTED 101.6 mL/min/1.73m*2 Normal >60.0 [facility] Comment on above: Result Comment: [facility]???s estimated glomerular filtration rate (eGFR) [...] of individuals. Performed By: #### L [id number] ####[facility] ([facility])[address] [place] [address] Glucose [Mass/Vol] 103 mg/dL High 70-100 [facility] Comment on above: Performed By: #### L [id number] ####[facility] ([facility])[address] [place] [address] Potassium [Moles/Vol] 3.6 mmol/L Normal 3.5-5.1 [facility] Comment on above: Performed By: #### L [id number] ####[facility] ([facility])[address] [place] [address] Sodium [Moles/Vol] 135 mmol/L Low 136-145 [facility] Comment on above: Performed By: #### L [id number] ####[facility] ([facility])[address] [place] [address] Urea nitrogen [Mass/Vol] 14 mg/dL Normal 7-25 [facility] Comment on above: Performed By: #### L [id number] ####[facility] ([facility])[address] [place] [address] UREA NITROGEN/CREATININ E (MASS RATIO) IN SER/PLAS 24.6 Normal [facility] Comment on above: Performed By: #### L [id number] ####[facility] ([facility])[address] [place] [address] CBC WITH AUTO DIFFERENTIALon 05-17-2025 Basophils (Bld) [#/Vol] 0.02 10*3/uL Normal 0.00-0.20 [facility] Comment on above: Performed By: #### L [id number] ####[facility] ([facility])[address] [place] [address] Basophils/100 WBC (Bld) 0.2 % Normal 0.0-1.0 [facility] Comment on above: Performed By: #### L [id number] ####[facility] ([facility])[address] [place] [address] Eosinophils (Bld) [#/Vol] 0.22 10*3/uL Normal 0.00-0.50 [facility] Comment on above: Performed By: #### L [id number] ####[facility] ([facility])[address] [place] [address] Eosinophils/100 WBC (Bld) 1.7 % Normal 0.0-6.0 [facility] Comment on above: Performed By: #### L [id number] ####[facility] ([facility])[address] [place] [address] Erythrocyte distribution width (RBC) [Ratio] 14.5 % Normal 11.5-15.0 [facility] Comment on above: Performed By: #### L [id number] ####[facility] ([facility])[address] [place] [address] ERYTHROCYTE MEAN CORPUSCULAR HEMOGLOBIN CONCENTRATION (G/DL) BY AUTOMATED 33.3 g/dL Normal 32.0-35.0 [facility] Comment on above: Performed By: #### L [id number] ####[facility] ([facility])[address] [place] [address] Hematocrit (Bld) [Volume fraction] 25.2 % Low 39.0-50.0 [facility] Comment on above: Performed By: #### L [id number] ####[facility] ([facility])[address] [place] [address] Hemoglobin (Bld) [Mass/Vol] 8.4 g/dL Low 13.0-17.0 [facility] Comment on above: Performed By: #### L [id number] ####[facility] ([facility])[address] [place] [address] Immature granulocytes (Bld) [#/Vol] 0.07 10*3/uL Normal 0.00-0.20 [facility] Comment on above: Performed By: #### L [id number] ####[facility] ([facility])[address] [place] [address] Immature granulocytes/100 WBC (Bld) 0.6 % Normal 0.0-1.0 [facility] Comment on above: Performed By: #### L [id number] ####[facility] ([facility])[address] [place] [address] Lymphocytes (Bld) [#/Vol] 1.46 10*3/uL Normal 1.20-4.00 [facility] Comment on above: Performed By: #### L [id number] ####[facility] ([facility])[address] [place] [address] Lymphocytes/100 WBC (Bld) 11.5 % Low 20.0-45.0 [facility] Comment on above: Performed By: #### L [id number] ####[facility] ([facility])[address] [place] [address] MCH (RBC) [Entitic mass] 30.4 pg Normal 27.0-33.0 [facility] Comment on above: Performed By: #### L [id number] ####[facility] ([facility])[address] [place], [place] [address] MCV (RBC) [Entitic vol] 91.3 fL Normal 82.0-98.0 [facility] Comment on above: Performed By: #### L [id number] ####[facility] ([facility])[address] [place] [address] Monocytes (Bld) [#/Vol] 1.30 10*3/uL High 0.10-1.00 [facility] Comment on above: Performed By: #### L [id number] ####[facility] ([facility])[address] [place] [address] Monocytes/100 WBC (Bld) 10.2 % Normal 5.0-12.0 [facility] Comment on above: Performed By: #### L [id number] ####[facility] ([facility])[address] [place] [address] Neutrophils (Bld) [#/Vol] 9.65 10*3/uL High 1.60-7.60 [facility] Comment on above: Performed By: #### L [id number] ####[facility] ([facility])[address] [place] [address] Neutrophils/100 WBC (Bld) 75.8 % High 40.0-72.0 [facility] Comment on above: Performed By: #### L [id number] ####[facility] ([facility])[address] [place] [address] NRBC (PER 100 WBCS) BY AUTOMATED COUNT 0.0 % Normal 0 [facility] Comment on above: Performed By: #### L [id number] ####[facility] ([facility])[address] [place] [address] PLATELETS (10*3/UL) IN BLOOD AUTOMATED COUNT 149 10*3/uL Low 150-400 [facility] Comment on above: Performed By: #### L [id number] ####[facility] ([facility])[address] [place] [address] RBC (Bld) [#/Vol] 2.76 10*6/uL Low 4.20-5.70 [facility] Comment on above: Performed By: #### L [id number] ####[facility] ([facility])[address] [place] [address] WBC (Bld) [#/Vol] 12.72 10*3/uL High 4.00-10.60 [facility] Comment on above: Performed By: #### L [id number] ####[facility] ([facility])[address] [place] [address] MAGNESIUMon 05-17-2025 Magnesium [Mass/Vol] 1.6 mg/dL Low 1.9-2.7 [facility] Comment on above: Performed By: #### L [id number] ####[facility] ([facility])[address] [place] [address] PHOSPHORUSon 05-17-2025 Magnesium [Mass/Vol] 2.8 mg/dL Normal 2.5-5.0 [facility] Comment on above: Performed By: #### L [id number] ####[facility] ([facility])[address] [place] [address] 30on 05-16-2025 30 Normal [facility] BASIC METABOLIC PANELon 05-02 Anion gap [Moles/Vol] 8 mmol/L Normal 7-20 [facility] [facility] Comment on above: Performed By: #### L [id number] ####[facility] ([facility])[address] [place] [address] Calcium [Mass/Vol] 7.9 mg/dL Low 8.6-10.3 [facility] Comment on above: Performed By: #### L [id number] ####[facility] ([facility])[address] [place] [address] Chloride [Moles/Vol] 102 mmol/L Normal 98-107 [facility] Comment on above: Performed By: #### L [id number] ####[facility] ([facility])[address] [place] [address] CO2 [Moles/Vol] 31 mmol/L Normal 21-31 [facility] Comment on above: Performed By: #### L [id number] ####[facility] ([facility])[address] [place] [address] Creatinine [Mass/Vol] 0.65 mg/dL Low 0.70-1.30 [facility] Comment on above: Performed By: #### L [id number] ####[facility] ([facility])[address] [place] [address] GLOMERULAR FILTRATION RATE ML/MIN/1.73 SQ M.PREDICTED 97.7 mL/min/1.73m*2 Normal >60.0 [facility] Comment on above: Result Comment: [facility]???s estimated glomerular filtration rate (eGFR) [...] of individuals. Performed By: #### L [id number] ####[facility] ([facility])[address] [place] [address] Glucose [Mass/Vol] 102 mg/dL High 70-100 [facility] Comment on above: Performed By: #### L [id number] ####[facility] ([facility])[address] [place] [address] Potassium [Moles/Vol] 3.8 mmol/L Normal 3.5-5.1 [facility] Comment on above: Performed By: #### L [id number] ####[facility] ([facility])[address] [place] [address] Sodium [Moles/Vol] 137 mmol/L Normal 136-145 [facility] Comment on above: Performed By: #### L [id number] ####[facility] ([facility])[address] [place] [address] Urea nitrogen [Mass/Vol] 13 mg/dL Normal 7-25 [facility] Comment on above: Performed By: #### L [id number] ####[facility] ([facility])[address] [place] [address] UREA NITROGEN/CREATININ E (MASS RATIO) IN SER/PLAS 20.0 Normal [facility] Comment on above: Performed By: #### L [id number] ####[facility] ([facility])[address] [place] [address] CBC WITH AUTO DIFFERENTIALon 05-16-2025 Basophils (Bld) [#/Vol] 0.03 10*3/uL Normal 0.00-0.20 [facility] Comment on above: Performed By: #### L [id number] ####[facility] ([facility])[address] [place] [address] Basophils/100 WBC (Bld) 0.2 % Normal 0.0-1.0 [facility] Comment on above: Performed By: #### L [id number] ####[facility] ([facility])[address] [place] [address] Eosinophils (Bld) [#/Vol] 0.28 10*3/uL Normal 0.00-0.50 [facility] Comment on above: Performed By: #### L [id number] ####[facility] ([facility])[address] [place] [address] Eosinophils/100 WBC (Bld) 1.9 % Normal 0.0-6.0 [facility] Comment on above: Performed By: #### L [id number] ####[facility] ([facility])[address] [place] [address] Erythrocyte distribution width (RBC) [Ratio] 14.3 % Normal 11.5-15.0 [facility] Comment on above: Performed By: #### L [id number] ####[facility] ([facility])[address] [place] [address] ERYTHROCYTE MEAN CORPUSCULAR HEMOGLOBIN CONCENTRATION (G/DL) BY AUTOMATED 34.7 g/dL Normal 32.0-35.0 [facility] Comment on above: Performed By: #### L [id number] ####[facility] ([facility])[address] [place] [address] Hematocrit (Bld) [Volume fraction] 25.1 % Low 39.0-50.0 [facility] Comment on above: Performed By: #### L [id number] ####[facility] ([facility])[address] [place] [address] Hemoglobin (Bld) [Mass/Vol] 8.7 g/dL Low 13.0-17.0 [facility] Comment on above: Performed By: #### L [id number] ####[facility] ([facility])[address] [place] [address] Immature granulocytes (Bld) [#/Vol] 0.07 10*3/uL Normal 0.00-0.20 [facility] Comment on above: Performed By: #### L [id number] ####[facility] ([facility])[address] [place] [address] Immature granulocytes/100 WBC (Bld) 0.5 % Normal 0.0-1.0 [facility] Comment on above: Performed By: #### L [id number] ####[facility] ([facility])[address] [place] [address] IMMATURE PLATELET FRACTION % 8.4 % High 0.8-6.3 [facility] Comment on above: Performed By: #### L [id number] ####[facility] ([facility])[address] [place] [address] Lymphocytes (Bld) [#/Vol] 1.77 10*3/uL Normal 1.20-4.00 [facility] Comment on above: Performed By: #### L [id number] ####[facility] ([facility])[address] [place] [address] Lymphocytes/100 WBC (Bld) 12.3 % Low 20.0-45.0 [facility] Comment on above: Performed By: #### L [id number] ####[facility] ([facility])[address] [place] [address] MCH (RBC) [Entitic mass] 31.6 pg Normal 27.0-33.0 [facility] Comment on above: Performed By: #### L [id number] ####[facility] ([facility])[address] [place] [address] MCV (RBC) [Entitic vol] 91.3 fL Normal 82.0-98.0 [facility] Comment on above: Performed By: #### L [id number] ####[facility] ([facility])[address] [place] [address] Monocytes (Bld) [#/Vol] 1.32 10*3/uL High 0.10-1.00 [facility] Comment on above: Performed By: #### L [id number] ####[facility] ([facility])[address] [place] [address] Monocytes/100 WBC (Bld) 9.2 % Normal 5.0-12.0 [facility] Comment on above: Performed By: #### L [id number] ####[facility] ([facility])[address] [place] [address] Neutrophils (Bld) [#/Vol] 10.91 10*3/uL High 1.60-7.60 [facility] Comment on above: Performed By: #### L [id number] ####[facility] ([facility])[address] [place] [address] Neutrophils/100 WBC (Bld) 75.9 % High 40.0-72.0 [facility] Comment on above: Performed By: #### L [id number] ####[facility] ([facility])[address] [place] [address] NRBC (PER 100 WBCS) BY AUTOMATED COUNT 0.0 % Normal 0 [facility] Comment on above: Performed By: #### L [id number] ####[facility] ([facility])[address] [place] [address] PLATELETS (10*3/UL) IN BLOOD AUTOMATED COUNT 128 10*3/uL Low 150-400 [facility] Comment on above: Performed By: #### L [id number] ####[facility] ([facility])[address] [place] [address] RBC (Bld) [#/Vol] 2.75 10*6/uL Low 4.20-5.70 [facility] Comment on above: Performed By: #### L [id number] ####[facility] ([facility])[address] [place] [address] WBC (Bld) [#/Vol] 14.38 10*3/uL High 4.00-10.60 [facility] Comment on above: Performed By: #### L [id number] ####[facility] ([facility])[address] [place] [address] MAGNESIUMon 05-16-2025 Magnesium [Mass/Vol] 1.8 mg/dL Low 1.9-2.7 [facility] Comment on above: Performed By: #### L [id number] ####[facility] ([facility])[address] [place] [address] OCCULT BLOOD X 1, STOOLon HEMOGLOBIN GASTROINTESTINAL PRESENCE IN STOOL Positive Abnormal Negative, None Detected [facility] Comment on above: Performed By: #### L [id number] ####[facility] ([facility])[address] [place] [address] PHOSPHORUSon 05-16-2025 Magnesium [Mass/Vol] 2.7 mg/dL Normal 2.5-5.0 [facility] Comment on above: Performed By: #### L [id number] ####[facility] ([facility])[address] [place] [address] 30on 05-15-2025 30 Normal [facility] 30 Normal [facility] BASIC METABOLIC PANELon 05-02 Anion gap [Moles/Vol] 7 mmol/L Normal 7-20 [facility] Comment on above: Performed By: #### L [id number] ####[facility] ([facility])[address] [place] [address] Calcium [Mass/Vol] 7.7 mg/dL Low 8.6-10.3 [facility] Comment on above: Performed By: #### L [id number] ####[facility] ([facility])[address] [place] [address] Chloride [Moles/Vol] 103 mmol/L Normal 98-107 [facility] Comment on above: Performed By: #### L [id number] ####[facility] ([facility])[address] [place] [address] CO2 [Moles/Vol] 30 mmol/L Normal 21-31 [facility] Comment on above: Performed By: #### L [id number] ####[facility] ([facility])[address] [place] [address] Creatinine [Mass/Vol] 0.63 mg/dL Low 0.70-1.30 [facility] Comment on above: Performed By: #### L [id number] ####[facility] ([facility])[address] [place] [address] GLOMERULAR FILTRATION RATE ML/MIN/1.73 SQ M.PREDICTED 98.6 mL/min/1.73m*2 Normal >60.0 [facility] Comment on above: Result Comment: [facility]???s estimated glomerular filtration rate (eGFR) [...] of individuals. Performed By: #### L [id number] ####[facility] ([facility])[address] [place] [address] Glucose [Mass/Vol] 81 mg/dL Normal 70-100 [facility] Comment on above: Performed By: #### L [id number] ####[facility] ([facility])[address] [place] [address] Potassium [Moles/Vol] 4.0 mmol/L Normal 3.5-5.1 [facility] Comment on above: Performed By: #### L [id number] ####[facility] ([facility])[address] [place] [address] Sodium [Moles/Vol] 136 mmol/L Normal 136-145 [facility] Comment on above: Performed By: #### L [id number] ####[facility] ([facility])[address] [place] [address] Urea nitrogen [Mass/Vol] 13 mg/dL Normal 7-25 [facility] Comment on above: Performed By: #### L [id number] ####[facility] ([facility])[address] [place] [address] UREA NITROGEN/CREATININ E (MASS RATIO) IN SER/PLAS 20.6 Normal [facility] Comment on above: Performed By: #### L [id number] ####[facility] ([facility])[address] [place] [address] CBC WITH AUTO DIFFERENTIALon 05-15-2025 Erythrocyte distribution width (RBC) [Ratio] 14.6 % Normal 11.5-15.0 [facility] Comment on above: Performed By: #### L [id number] ####[facility] ([facility])[address] [place] [address] ERYTHROCYTE MEAN CORPUSCULAR HEMOGLOBIN CONCENTRATION (G/DL) BY AUTOMATED 34.4 g/dL Normal 32.0-35.0 [facility] Comment on above: Performed By: #### L [id number] ####[facility] ([facility])[address] [place] [address] Hematocrit (Bld) [Volume fraction] 27.0 % Low 39.0-50.0 [facility] Comment on above: Performed By: #### L [id number] ####[facility] ([facility])[address] [place] [address] Hemoglobin (Bld) [Mass/Vol] 9.3 g/dL Low 13.0-17.0 [facility] Comment on above: Performed By: #### L [id number] ####[facility] ([facility])[address] [place] [address] IMMATURE PLATELET FRACTION % 8.9 % High 0.8-6.3 [facility] Comment on above: Performed By: #### L [id number] ####[facility] ([facility])[address] [place] [address] MCH (RBC) [Entitic mass] 32.4 pg Normal 27.0-33.0 [facility] Comment on above: Performed By: #### L [id number] ####[facility] ([facility])[address] [place] [address] MCV (RBC) [Entitic vol] 94.1 fL Normal 82.0-98.0 [facility] Comment on above: Performed By: #### L [id number] ####[facility] ([facility])[address] [place] [address] NRBC (PER 100 WBCS) BY AUTOMATED COUNT 0.0 % Normal 0 [facility] Comment on above: Performed By: #### L [id number] ####[facility] ([facility])[address] [place] [address] PLATELETS (10*3/UL) IN BLOOD AUTOMATED COUNT 103 10*3/uL Low 150-400 [facility] Comment on above: Performed By: #### L [id number] ####[facility] ([facility])[address] [place] [address] RBC (Bld) [#/Vol] 2.87 10*6/uL Low 4.20-5.70 [facility] Comment on above: Performed By: #### L [id number] ####[facility] ([facility])[address] [place] [address] WBC (Bld) [#/Vol] 16.37 10*3/uL High 4.00-10.60 [facility] Comment on above: Performed By: #### L [id number] ####[facility] ([facility])[address] [place] [address] MAGNESIUMon 05-15-2025 Magnesium [Mass/Vol] 1.7 mg/dL Low 1.9-2.7 [facility] Comment on above: Performed By: #### L [id number] ####[facility] ([facility])[address] [place] [address] MANUAL DIFFERENTIALon 2024 BASOPHILS (10*3/UL) IN BLOOD BY CALCULATION 0.07 10*3/uL Normal 0.00-0.20 [facility] Comment on above: Performed By: #### L [id number] ####[facility] ([facility])[address] [place] [address] BASOPHILS/100 LEUKOCYTES IN BLOOD BY AUTOMATED COUNT 0.4 % Normal 0.0-1.0 [facility] Comment on above: Performed By: #### L [id number] ####[facility] ([facility])[address] [place] [address] EOSINOPHILS (10*3/UL) IN BLOOD BY CALCULATION 0.34 10*3/uL Normal 0.00-0.50 [facility] Comment on above: Performed By: #### L [id number] ####[facility] ([facility])[address] [place] [address] EOSINOPHILS/100 LEUKOCYTES IN BLOOD BY AUTOMATED COUNT 2.1 % Normal 0.0-6.0 [facility] Comment on above: Performed By: #### L [id number] ####[facility] ([facility])[address] [place] [address] IMMATURE GRANULOCYTES (10*3/UL) IN BLOOD BY CALCULATION 0.08 10*3/uL Normal 0.00-0.20 [facility] Comment on above: Performed By: #### L [id number] ####[facility] ([facility])[address] [place] [address] IMMATURE GRANULOCYTES/100 LEUKOCYTES IN BLOOD BY AUTOMATED COUNT 0.5 % Normal 0.0-1.0 [facility] Comment on above: Performed By: #### L [id number] ####[facility] ([facility])[address] [place] [address] LYMPHOCYTES (10*3/UL) IN BLOOD BY CALCULATION 2.57 10*3/uL Normal 1.20-4.00 [facility] Comment on above: Performed By: #### L [id number] ####[facility] ([facility])[address] [place] [address] LYMPHOCYTES/100 LEUKOCYTES IN BLOOD BY AUTOMATED COUNT 15.7 % Low 20.0-45.0 [facility] Comment on above: Performed By: #### L [id number] ####[facility] ([facility])[address] [place] [address] MONOCYTES (10*3/UL) IN BLOOD BY CALCUATION 1.77 10*3/uL High 0.10-1.00 [facility] Comment on above: Performed By: #### L [id number] ####[facility] ([facility])[address] [place] [address] MONOCYTES/100 LEUKOCYTES IN BLOOD BY AUTOMATED COUNT 10.8 % Normal 5.0-12.0 [facility] Comment on above: Performed By: #### L [id number] ####[facility] ([facility])[address] [place] [address] NEUTROPHILS (10*3/UL) IN BLOOD BY CALCULATION 11.5 10*3/uL High 1.6-7.6 [facility] Comment on above: Performed By: #### L [id number] ####[facility] ([facility])[address] [place] [address] NEUTROPHILS/100 LEUKOCYTES IN BLOOD BY AUTOMATED COUNT 70.5 % Normal 40.0-72.0 [facility] Comment on above: Performed By: #### L [id number] ####[facility] ([facility])[address] [place] [address] NURSNOTEon 05-15-2025 NURSNOTE Normal [facility] NURSNOTE Normal [facility] NURSNOTE Normal [facility] PHOSPHORUSon 05-15-2025 Magnesium [Mass/Vol] 1.9 mg/dL Low 2.5-5.0 [facility] Comment on above: Performed By: #### L [id number] ####[facility] ([facility])[address] [place] [address] 30on 05-14-2025 30 Normal [facility] 30 Normal [facility] BASIC METABOLIC PANELon 05-02 Anion gap [Moles/Vol] 6 mmol/L Low 7-20 [facility] Comment on above: Performed By: #### L [id number] ####[facility] ([facility])[address] [place] [address] Calcium [Mass/Vol] 7.7 mg/dL Low 8.6-10.3 [facility] Comment on above: Performed By: #### L [id number] ####[facility] ([facility])[address] [place] [address] Chloride [Moles/Vol] 106 mmol/L Normal 98-107 [facility] Comment on above: Performed By: #### L [id number] ####[facility] ([facility])[address] [place] [address] CO2 [Moles/Vol] 30 mmol/L Normal 21-31 [facility] Comment on above: Performed By: #### L [id number] ####[facility] ([facility])[address] [place] [address] Creatinine [Mass/Vol] 0.71 mg/dL Normal 0.70-1.30 [facility] Comment on above: Performed By: #### L [id number] ####[facility] ([facility])[address] [place] [address] GLOMERULAR FILTRATION RATE ML/MIN/1.73 SQ M.PREDICTED 95.1 mL/min/1.73m*2 Normal >60.0 [facility] Comment on above: Result Comment: [facility]???s estimated glomerular filtration rate (eGFR) [...] of individuals. Performed By: #### L [id number] ####[facility] ([facility])[address] [place] [address] Glucose [Mass/Vol] 91 mg/dL Normal 70-100 [facility] Comment on above: Performed By: #### L [id number] ####[facility] ([facility])[address] [place] [address] Potassium [Moles/Vol] 4.4 mmol/L Normal 3.5-5.1 [facility] Comment on above: Performed By: #### L [id number] ####[facility] ([facility])[address] [place] [address] Sodium [Moles/Vol] 138 mmol/L Normal 136-145 [facility] Comment on above: Performed By: #### L [id number] ####[facility] ([facility])[address] [place] [address] Urea nitrogen [Mass/Vol] 16 mg/dL Normal 7-25 [facility] Comment on above: Performed By: #### L [id number] ####[facility] ([facility])[address] [place] [address] UREA NITROGEN/CREATININ E (MASS RATIO) IN SER/PLAS 22.5 Normal [facility] Comment on above: Performed By: #### L [id number] ####[facility] ([facility])[address] [place] [address] CBC WITH AUTO DIFFERENTIALon 05-14-2025 Erythrocyte distribution width (RBC) [Ratio] 14.6 % Normal 11.5-15.0 [facility] Comment on above: Performed By: #### L [id number] ####[facility] ([facility])[address] [place] [address] ERYTHROCYTE MEAN CORPUSCULAR HEMOGLOBIN CONCENTRATION (G/DL) BY AUTOMATED 33.1 g/dL Normal 32.0-35.0 [facility] Comment on above: Performed By: #### L [id number] ####[facility] ([facility])[address] [place] [address] Hematocrit (Bld) [Volume fraction] 29.9 % Low 39.0-50.0 [facility] Comment on above: Performed By: #### L [id number] ####[facility] ([facility])[address] [place] [address] Hemoglobin (Bld) [Mass/Vol] 9.9 g/dL Low 13.0-17.0 [facility] Comment on above: Performed By: #### L [id number] ####[facility] ([facility])[address] [place] [address] MCH (RBC) [Entitic mass] 30.5 pg Normal 27.0-33.0 [facility] Comment on above: Performed By: #### L [id number] ####[facility] ([facility])[address] [place] [address] MCV (RBC) [Entitic vol] 92.0 fL Normal 82.0-98.0 [facility] Comment on above: Performed By: #### L [id number] ####[facility] ([facility])[address] [place] [address] NRBC (PER 100 WBCS) BY AUTOMATED COUNT 0.0 % Normal 0 [facility] Comment on above: Performed By: #### L [id number] ####[facility] ([facility])[address] [place] [address] PLATELETS (10*3/UL) IN BLOOD AUTOMATED COUNT 117 10*3/uL Low 150-400 [facility] Comment on above: Performed By: #### L [id number] ####[facility] ([facility])[address] [place] [address] RBC (Bld) [#/Vol] 3.25 10*6/uL Low 4.20-5.70 [facility] Comment on above: Performed By: #### L [id number] ####[facility] ([facility])[address] [place] [address] WBC (Bld) [#/Vol] 18.84 10*3/uL High 4.00-10.60 [facility] Comment on above: Performed By: #### L [id number] ####[facility] ([facility])[address] [place] [address] EXTEM Con 05-14-2025 EXTEM C A10 61 mm Normal 45-62 [facility] Comment on above: Performed By: #### E XTEM C ####[facility] [id number] [place] [address] [place] EXTEM C A20 68 mm Normal 54-69 [facility] Comment on above: Performed By: #### E XTEM C ####[facility] [id number] [place] [address] [place] EXTEM C A5 51 mm Normal 33-52 [facility] Comment on above: Performed By: #### E XTEM C ####[facility] [id number] [place] [address] [place] [address] 61 s Normal 51-73 [facility] Comment on above: Performed By: #### E XTEM C ####[facility] [id number] [place] [address] [place] EXTEM C ML 0 % Normal 0-6 [facility] Comment on above: Result Comment: AR^P reliminary Result Performed By: #### E XTEM C ####[facility] RESPIRATORY [id number] [place] [address] [place] FIBTEM Con 05-14-2025 FIBTEM C A10 20 mm High 6-17 [facility] Comment on above: Performed By: #### F IBTEM C ####[facility] RESPIRATORY [id number] [facility] [place] [address] [facility] FIBTEM C A20 22 mm High 6-18 [facility] Comment on above: Performed By: #### F IBTEM C ####[facility] RESPIRATORY [id number] [facility] [place] [address] [place] FIBTEM C A5 18 mm High 5-16 [facility] Comment on above: Performed By: #### F IBTEM C ####[facility] RESPIRATORY [id number] [facility] [place] [address] [place] HEMOGLOBIN AND HEMATOCRIT, B LOODon 05-14-2025 Hematocrit (Bld) [Volume fraction] 30.6 % Low 39.0-50.0 [facility] Comment on above: Performed By: #### L [id number] ####[facility] HOSPITAL LAB (BEAKER)[address] [facility] [place] [address] Hemoglobin (Bld) [Mass/Vol] 10.3 g/dL Low 13.0-17.0 [facility] Comment on above: Performed By: #### L [id number] ####[facility] HOSPITAL LAB (BEAKER)[address] [facility] [place] [address] HEPTEM Con 05-14-2025 HEPTEM C A10 59 mm Normal 44-61 [facility] Comment on above: Performed By: #### H EPTEM C ####[facility] RESPIRATORY [id number] [facility] [place] [address] [place] HEPTEM C A20 66 mm Normal 52-67 [facility] Comment on above: Performed By: #### H EPTEM C ####[facility] RESPIRATORY [id number] [place] [address] [facility] HEPTEM C A5 48 mm Normal 33-51 [facility] Comment on above: Performed By: #### H EPTEM C ####[facility] RESPIRATORY [id number] [place] [address] [facility] HEPTEM C CT 157 s Normal 141-215 [facility] Comment on above: Performed By: #### H EPTEM C ####[facility] RESPIRATORY [id number] [place] [address] [facility] INTEM Con 05-14-2025 INTEM C A10 60 mm Normal 46-63 [facility] Comment on above: Performed By: #### I NTEM C ####[facility] RESPIRATORY [id number] [facility] [place] [address] [facility] INTEM C A20 67 mm Normal 53-68 [facility] Comment on above: Performed By: #### I NTEM C ####[facility] RESPIRATORY [id number] [facility] [place] [address] [facility] INTEM C A5 50 mm Normal 36-54 [facility] Comment on above: Performed By: #### I NTEM C ####[facility] RESPIRATORY [id number] [facility] [place] [address] [facility] INTEM C CT 160 s Normal 139-205 [facility] Comment on above: Performed By: #### I NTEM C ####[facility] RESPIRATORY [id number] [place] [address] [facility] INTEM C ML 0 % Normal 0-7 [facility] Comment on above: Result Comment: AR^P reliminary Result Performed By: #### I NTEM C ####[facility] RESPIRATORY [id number] [place] [address] [facility] MAGNESIUMon 05-14-2025 Magnesium [Mass/Vol] 1.8 mg/dL Low 1.9-2.7 [facility] Comment on above: Performed By: #### L [id number] ####[facility] ([facility])[address] [place] [address] MANUAL DIFFERENTIALon 2024 BASOPHILS (10*3/UL) IN BLOOD BY CALCULATION 0.00 10*3/uL Normal 0.00-0.20 [facility] Comment on above: Performed By: #### L [id number] ####[facility] LAB ([facility])[address] [place] [address] BASOPHILS/100 LEUKOCYTES IN BLOOD BY AUTOMATED COUNT 0.0 % Normal 0.0-1.0 [facility] Comment on above: Performed By: #### L [id number] ####[facility] LAB ([facility])[address] [place] [address] EOSINOPHILS (10*3/UL) IN BLOOD BY CALCULATION 0.00 10*3/uL Normal 0.00-0.50 [facility] Comment on above: Performed By: #### L [id number] ####[facility] LAB ([facility])[address] [place] [address] EOSINOPHILS/100 LEUKOCYTES IN BLOOD BY AUTOMATED COUNT 0.0 % Normal 0.0-6.0 [facility] Comment on above: Performed By: #### L [id number] ####[facility] LAB ([facility])[address] [place] [address] IMMATURE GRANULOCYTES (10*3/UL) IN BLOOD BY CALCULATION 0.08 10*3/uL Normal 0.00-0.20 [facility] Comment on above: Performed By: #### L [id number] ####[facility] LAB ([facility])[address] [place] [address] IMMATURE GRANULOCYTES/100 LEUKOCYTES IN BLOOD BY AUTOMATED COUNT 0.4 % Normal 0.0-1.0 [facility] Comment on above: Performed By: #### L [id number] ####[facility] LAB ([facility])[address] [place] [address] LYMPHOCYTES (10*3/UL) IN BLOOD BY CALCULATION 3.24 10*3/uL Normal 1.20-4.00 [facility] Comment on above: Performed By: #### L [id number] ####[facility] LAB ([facility])[address] [place] [address] LYMPHOCYTES/100 LEUKOCYTES IN BLOOD BY AUTOMATED COUNT 17.2 % Low 20.0-45.0 [facility] Comment on above: Performed By: #### L [id number] ####[facility] LAB ([facility])[address] [place] [address] MONOCYTES (10*3/UL) IN BLOOD BY CALCUATION 1.13 10*3/uL High 0.10-1.00 [facility] Comment on above: Performed By: #### L [id number] ####[facility] LAB ([facility])[address] [place] [address] MONOCYTES/100 LEUKOCYTES IN BLOOD BY AUTOMATED COUNT 6.0 % Normal 5.0-12.0 [facility] Comment on above: Performed By: #### L [id number] ####[facility] LAB ([facility])[address] [place] [address] NEUTROPHILS (10*3/UL) IN BLOOD BY CALCULATION 14.5 10*3/uL High 1.6-7.6 [facility] Comment on above: Performed By: #### L [id number] ####[facility] LAB ([facility])[address] [place] [address] NEUTROPHILS/100 LEUKOCYTES IN BLOOD BY AUTOMATED COUNT 76.8 % High 40.0-72.0 [facility] Comment on above: Performed By: #### L [id number] ####[facility] LAB ([facility])[address] [place] [address] PLASMA CELLS/100 LEUKOCYTES IN BLOOD 0 % Normal 0 [facility] Comment on above: Performed By: #### L [id number] ####[facility] LAB ([facility])[address] [place] [address] PLATELETS GIANT PRESENCE IN BLOOD BY LIGHT MICROSCOPY Present Normal [facility] Comment on above: Performed By: #### L [id number] ####[facility] LAB ([facility])[address] [place] [address] VARIANT LYMPHOCYTES (10*3/UL) IN BLOOD BY CALCULATION 0.00 10*3/uL Normal 0.00 [facility] Comment on above: Performed By: #### L [id number] ####[facility] ([facility])[address] [place] [address] VARIANT LYMPHOCYTES/100 LEUKOCYTES IN BLOOD CELLAVISION 0.0 % Normal 0.0-0.0 [facility] Comment on above: Performed By: #### L [id number] ####[facility] LAB ([facility])[address] [place] [address] PHOSPHORUSon 05-14-2025 Magnesium [Mass/Vol] 2.1 mg/dL Low 2.5-5.0 [facility] Comment on above: Performed By: #### L [id number] ####[facility] LAB ([facility])[address] [place] [address] 30on 05-13-2025 30 Normal [facility] ANESon 05-13-2025 ANES Normal [facility] ANES Normal [facility] BASIC METABOLIC PANELon 05-02 Anion gap [Moles/Vol] 8 mmol/L Normal 7-20 [facility] Comment on above: Performed By: #### L [id number] ####[facility] LAB ([facility])[address] [place] [address] Calcium [Mass/Vol] 7.8 mg/dL Low 8.6-10.3 [facility] Comment on above: Performed By: #### L [id number] ####[facility] LAB ([facility])[address] [place] [address] Chloride [Moles/Vol] 107 mmol/L Normal 98-107 [facility] Comment on above: Performed By: #### L [id number] ####[facility] LAB ([facility])[address] [place] [address] CO2 [Moles/Vol] 27 mmol/L Normal 21-31 [facility] Comment on above: Performed By: #### L [id number] ####[facility] ([facility])[address] [place] [address] Creatinine [Mass/Vol] 0.82 mg/dL Normal 0.70-1.30 [facility] Comment on above: Performed By: #### L [id number] ####[facility] LAB ([facility])[address] [place] [address] GLOMERULAR FILTRATION RATE ML/MIN/1.73 SQ M.PREDICTED 91.0 mL/min/1.73m*2 Normal >60.0 [facility] Comment on above: Result Comment: The [facility]???s estimated glomerular filtration rate (eGFR) [...] of individuals. Performed By: #### L [id number] ####[facility] LAB ([facility])[address] [place] [address] Glucose [Mass/Vol] 130 mg/dL High 70-100 [facility] Comment on above: Performed By: #### L [id number] ####[facility] LAB ([facility])[address] [place] [address] Potassium [Moles/Vol] 4.3 mmol/L Normal 3.5-5.1 [facility] Comment on above: Performed By: #### L [id number] ####[facility] ([facility])[address] [place] [address] Sodium [Moles/Vol] 138 mmol/L Normal 136-145 [facility] Comment on above: Performed By: #### L [id number] ####[facility] LAB ([facility])[address] [place] [address] Urea nitrogen [Mass/Vol] 12 mg/dL Normal 7-25 [facility] Comment on above: Performed By: #### L [id number] ####[facility] LAB ([facility])[address] [place] [address] UREA NITROGEN/CREATININ E (MASS RATIO) IN SER/PLAS 14.6 Normal [facility] Comment on above: Performed By: #### L [id number] ####[facility] LAB ([facility])[address] [place] [address] CBC WITH AUTO DIFFERENTIALon 05-13-2025 Erythrocyte distribution width (RBC) [Ratio] 14.4 % Normal 11.5-15.0 [facility] Comment on above: Performed By: #### L [id number] ####[facility] LAB ([facility])[address] [place] [address] ERYTHROCYTE MEAN CORPUSCULAR HEMOGLOBIN CONCENTRATION (G/DL) BY AUTOMATED 34.4 g/dL Normal 32.0-35.0 [facility] Comment on above: Performed By: #### L [id number] ####[facility] LAB ([facility])[address] [place] [address] Hematocrit (Bld) [Volume fraction] 38.1 % Low 39.0-50.0 [facility] Comment on above: Performed By: #### L [id number] ####[facility] ([facility])[address] [place] [address] Hemoglobin (Bld) [Mass/Vol] 13.1 g/dL Normal 13.0-17.0 [facility] Comment on above: Performed By: #### L [id number] ####[facility] LAB ([facility])[address] [place] [address] IMMATURE PLATELET FRACTION % 10.6 % High 0.8-6.3 [facility] Comment on above: Performed By: #### L [id number] ####[facility] ([facility])[address] [place] [address] MCH (RBC) [Entitic mass] 30.5 pg Normal 27.0-33.0 [facility] Comment on above: Performed By: #### L [id number] ####[facility] ([facility])[address] [place] [address] MCV (RBC) [Entitic vol] 88.8 fL Normal 82.0-98.0 [facility] Comment on above: Performed By: #### L [id number] ####[facility] LAB ([facility])[address] [place] [address] NRBC (PER 100 WBCS) BY AUTOMATED COUNT 0.0 % Normal 0 [facility] Comment on above: Performed By: #### L [id number] ####[facility] ([facility])[address] [place] [address] PLATELETS (10*3/UL) IN BLOOD AUTOMATED COUNT 120 10*3/uL Low 150-400 [facility] Comment on above: Performed By: #### L [id number] ####[facility] LAB ([facility])[address] [place] [address] RBC (Bld) [#/Vol] 4.29 10*6/uL Normal 4.20-5.70 [facility] Comment on above: Performed By: #### L [id number] ####[facility] LAB ([facility])[address] [place] [address] WBC (Bld) [#/Vol] 25.00 10*3/uL High 4.00-10.60 [facility] Comment on above: Performed By: #### L [id number] ####[facility] LAB ([facility])[address] [place] [address] HISTOLOGY - TISSUE EXAMon LAB AP ADDENDUM 1 Normal [facility] Comment on above: Order Comment: Pre-o p diagnosis:SBO (small bowel obstruction) (CMS/HCC) [K56.609] Result Comment: Antonio anna eport comment. Comment: Possible etiologies for ischemic type mucosal injury include true ischemic colitis, infection or drug reaction.Addendum electronically signed by Abe Huber MD on 05/14/2025 at 1722 EDT Performed By: #### L [id number] ####[facility] LAB ([facility])[address] [place] [address] LAB AP CASE REPORT Normal [facility] Comment on above: Order Comment: Pre-o p diagnosis:SBO (small bowel obstruction) (CMS/HCC) [K56.609] Result Comment: Surg ical Pathology Case: [id number] Provider: Eduardo Pearson MD Collected: 05/13/2025 0200Ordering Location: [facility] 4CD Received: 05/13/2025 0716Pathologist: NIK Watkinspecimens: A) - Appendix, APPENDIX B) - Small Intestine, Small Bowel Performed By: #### L [id number] ####[facility] LAB (BEAKER)[address] [place] [address] LAB AP CLINICAL INFORMATION Normal [facility] Comment on above: Order Comment: Pre-o p diagnosis:SBO (small bowel obstruction) (CMS/HCC) [K56.609] Result Comment: Post -Op ImtgesjisT80.609 - SBO (small bowel obstruction) (CMS/HCC) [ICD-10-CM] Performed By: #### L [id number] ####[facility] LAB (BEAKER)[address] [facility] [address] LAB AP GROSS DESCRIPTION A. Appendix. Normal [facility] Comment on above: Order Comment: [...] perforations, masses, or other lesions are identified. Manager Of Tax sections are submitted as follows:A1: Distal tip, bisected, and proximal margin, shaveA2: Detached piece of tissue (presumed true proximal margin), inked black, and videotape sales representative sectionsDONNA Webster1Ngriffin Hutchinson, Pathologists' AssistantB. Small [...] identified, each measuring up to 0.3 cm. Manager Of Tax sections are submitted as follows:B1: Stapled margins, shaveB2-3: Small bowel, representativeB4-5: Mesentery, representativeB6: Two possible lymph nodes, intactKelDONNA Liu1Ngriffin Hutchinson, Pathologists' Cutting And Boning Supervisor Performed By: #### L [id number] ####[facility] LAB (BEAKER)[address] [place] [address] LAB AP MICROSCOPIC DESCRIPTION Microscopic examination performed. Normal [facility] Comment on above: Order Comment: Pre-o p diagnosis:SBO (small bowel obstruction) (CMS/HCC) [K56.609] Performed By: #### L [id number] ####[facility] LAB (BEAKER)[address] [place] [address] LAB AP REPORT FINAL DIAGNOSIS NARRATIVE Normal [facility] Comment on above: Order Comment: [...] at 1718 EDT Performed By: #### L [id number] ####[facility] ([facility])[address] [place] [address] LACTIC ACID, PLASMAon 2024 LACTATE (MMOL/L) IN SER/PLAS 1.0 mmol/L Normal 0.5-2.2 [facility] Comment on above: Performed By: #### L [id number] ####[facility] ([facility])[address] [place] [address] MAGNESIUMon 05-13-2025 Magnesium [Mass/Vol] 1.6 mg/dL Low 1.9-2.7 [facility] Comment on above: Performed By: #### L [id number] ####[facility] ([facility])[address] [place] [address] MANUAL DIFFERENTIALon 2024 BASOPHILS (10*3/UL) IN BLOOD BY CALCULATION 0.03 10*3/uL Normal 0.00-0.20 [facility] Comment on above: Performed By: #### L [id number] ####[facility] ([facility])[address] [place] [address] BASOPHILS/100 LEUKOCYTES IN BLOOD BY AUTOMATED COUNT 0.1 % Normal 0.0-1.0 [facility] Comment on above: Performed By: #### L [id number] ####[facility] ([facility])[address] [place] [address] EOSINOPHILS (10*3/UL) IN BLOOD BY CALCULATION 0.00 10*3/uL Normal 0.00-0.50 [facility] Comment on above: Performed By: #### L [id number] ####[facility] ([facility])[address] [place] [address] EOSINOPHILS/100 LEUKOCYTES IN BLOOD BY AUTOMATED COUNT 0.0 % Normal 0.0-6.0 [facility] Comment on above: Performed By: #### L [id number] ####[facility] ([facility])[address] [place] [address] IMMATURE GRANULOCYTES (10*3/UL) IN BLOOD BY CALCULATION 0.13 10*3/uL Normal 0.00-0.20 [facility] Comment on above: Performed By: #### L [id number] ####[facility] ([facility])[address] [place] [address] IMMATURE GRANULOCYTES/100 LEUKOCYTES IN BLOOD BY AUTOMATED COUNT 0.5 % Normal 0.0-1.0 [facility] Comment on above: Performed By: #### L [id number] ####[facility] ([facility])[address] [place] [address] LYMPHOCYTES (10*3/UL) IN BLOOD BY CALCULATION 1.15 10*3/uL Low 1.20-4.00 [facility] Comment on above: Performed By: #### L [id number] ####[facility] ([facility])[address] [place] [address] LYMPHOCYTES/100 LEUKOCYTES IN BLOOD BY AUTOMATED COUNT 4.6 % Low 20.0-45.0 [facility] Comment on above: Performed By: #### L [id number] ####[facility] ([facility])[address] [place] [address] MONOCYTES (10*3/UL) IN BLOOD BY CALCUATION 1.58 10*3/uL High 0.10-1.00 [facility] Comment on above: Performed By: #### L [id number] ####[facility] ([facility])[address] [place] [address] MONOCYTES/100 LEUKOCYTES IN BLOOD BY AUTOMATED COUNT 6.3 % Normal 5.0-12.0 [facility] Comment on above: Performed By: #### L [id number] ####[facility] ([facility])[address] [place] [address] NEUTROPHILS (10*3/UL) IN BLOOD BY CALCULATION 22.1 10*3/uL High 1.6-7.6 [facility] Comment on above: Performed By: #### L [id number] ####[facility] LAB (That{img})[address] [facility] [place] [address] NEUTROPHILS/100 LEUKOCYTES IN BLOOD BY AUTOMATED COUNT 88.5 % High 40.0-72.0 [facility] Comment on above: Performed By: #### L [id number] ####[facility] LAB (That{img})[address] [place] [address] OPNOTEon 05-13-2025 OPNOTE Normal [facility] PHOSPHORUSon 05-13-2025 Magnesium [Mass/Vol] 2.6 mg/dL Normal 2.5-5.0 [facility] Comment on above: Performed By: #### L [id number] ####[facility] LAB (That{img})[address] [facility] [place] [address] PROTIME-INRon 05-13-2025 INR IN PPP BY COAGULATION ASSAY 1.12 High 0.90-1.10 [facility] Comment on above: Result Comment: [...] CHEST 1995;[id number]. Performed By: #### L [id number] ####[facility] ([facility])[address] [place] [address] PROTHROMBIN TIME (PT) IN PPP BY COAGULATION ASSAY 14.4 Seconds Normal 12.3-14.8 [facility] Comment on above: Performed By: #### L [id number] ####[facility] ([facility])[address] [place] [address] CBC WITH AUTO DIFFERENTIALon 05-12-2025 Erythrocyte distribution width (RBC) [Ratio] 14.3 % Normal 11.5-15.0 [facility] Comment on above: Performed By: #### L [id number] ####[facility] ([facility])[address] [place] [address] ERYTHROCYTE MEAN CORPUSCULAR HEMOGLOBIN CONCENTRATION (G/DL) BY AUTOMATED 34.4 g/dL Normal 32.0-35.0 [facility] Comment on above: Performed By: #### L [id number] ####[facility] ([facility])[address] [place] [address] Hematocrit (Bld) [Volume fraction] 43.6 % Normal 39.0-50.0 [facility] Comment on above: Performed By: #### L [id number] ####[facility] ([facility])[address] [place] [address] Hemoglobin (Bld) [Mass/Vol] 15.0 g/dL Normal 13.0-17.0 [facility] Comment on above: Performed By: #### L [id number] ####[facility] ([facility])[address] [place] [address] MCH (RBC) [Entitic mass] 31.1 pg Normal 27.0-33.0 [facility] Comment on above: Performed By: #### L [id number] ####[facility] ([facility])[address] [place] [address] MCV (RBC) [Entitic vol] 90.3 fL Normal 82.0-98.0 [facility] Comment on above: Performed By: #### L [id number] ####[facility] ([facility])[address] [place] [address] NRBC (PER 100 WBCS) BY AUTOMATED COUNT 0.0 % Normal 0 [facility] Comment on above: Performed By: #### L [id number] ####[facility] ([facility])[address] [place] [address] PLATELETS (10*3/UL) IN BLOOD AUTOMATED COUNT 134 10*3/uL Low 150-400 [facility] Comment on above: Performed By: #### L [id number] ####[facility] ([facility])[address], [place] [address] RBC (Bld) [#/Vol] 4.83 10*6/uL Normal 4.20-5.70 [facility] Comment on above: Performed By: #### L [id number] ####[facility] ([facility])[address], [place] [address] WBC (Bld) [#/Vol] 19.28 10*3/uL High 4.00-10.60 [facility] Comment on above: Performed By: #### L [id number] ####[facility] ([facility])[address] [place] [address] COMPREHENSIVE METABOLIC PANE Galen 05-12-2025 Albumin [Mass/Vol] 3.9 g/dL Normal 3.5-5.7 [facility] Comment on above: Performed By: #### L [id number] ####[facility] ([facility])[address] [place] [address] ALP [Catalytic activity/Vol] 52 U/L Normal 34-104 [facility] Comment on above: Performed By: #### L [id number] ####[facility] ([facility])[address] [place] [address] ALT [Catalytic activity/Vol] 12 U/L Normal 7-52 [facility] Comment on above: Performed By: #### L [id number] ####[facility] ([facility])[address] [place] [address] Anion gap [Moles/Vol] 11 mmol/L Normal 7-20 [facility] Comment on above: Performed By: #### L [id number] ####[facility] ([facility])[address] [place] [address] AST [Catalytic activity/Vol] 22 U/L Normal 13-39 [facility] Comment on above: Performed By: #### L [id number] ####[facility] ([facility])[address] [place] [address] Bilirubin [Mass/Vol] 0.7 mg/dL Normal 0.3-1.0 [facility] Comment on above: Performed By: #### L [id number] ####[facility] ([facility])[address] [place] [address] Calcium [Mass/Vol] 8.6 mg/dL Normal 8.6-10.3 [facility] Comment on above: Performed By: #### L [id number] ####[facility] ([facility])[address] [place] [address] Chloride [Moles/Vol] 105 mmol/L Normal 98-107 [facility] Comment on above: Performed By: #### L [id number] ####[facility] ([facility])[address] [place] [address] CO2 [Moles/Vol] 25 mmol/L Normal 21-31 [facility] Comment on above: Performed By: #### L [id number] ####[facility] ([facility])[address] [place] [address] Creatinine [Mass/Vol] 0.82 mg/dL Normal 0.70-1.30 [facility] Comment on above: Performed By: #### L [id number] ####[facility] ([facility])[address] [place] [address] GLOMERULAR FILTRATION RATE ML/MIN/1.73 SQ M.PREDICTED 91.0 mL/min/1.73m*2 Normal >60.0 [facility] Comment on above: Result Comment: The [facility]???s estimated glomerular filtration rate (eGFR) [...] of individuals. Performed By: #### L [id number] ####[facility] ([facility])[address] [place] [address] Glucose [Mass/Vol] 126 mg/dL High 70-100 [facility] Comment on above: Performed By: #### L [id number] ####[facility] ([facility])[address] [place] [address] Potassium [Moles/Vol] 4.3 mmol/L Normal 3.5-5.1 [facility] Comment on above: Performed By: #### L [id number] ####[facility] ([facility])[address] [place] [address] Protein [Mass/Vol] 6.4 g/dL Normal 6.0-8.3 [facility] Comment on above: Performed By: #### L [id number] ####[facility] ([facility])[address] [place] [address] Sodium [Moles/Vol] 137 mmol/L Normal 136-145 [facility] Comment on above: Performed By: #### L [id number] ####[facility] ([facility])[address] [place] [address] Urea nitrogen [Mass/Vol] 12 mg/dL Normal 7-25 [facility] Comment on above: Performed By: #### L [id number] ####[facility] ([facility])[address] [place] [address] UREA NITROGEN/CREATININ E (MASS RATIO) IN SER/PLAS 14.6 Normal [facility] Comment on above: Performed By: #### L [id number] ####[facility] ([facility])[address] [place] [address] CT ABDOMEN PELVIS W IV CONTR Kala 05-12-2025 CT ABDOMEN PELVIS W IV CONTRAST Normal [facility] Comment on above: Order Comment: And o ral contrast please EDPROVon 05-12-2025 EDPROV Normal [facility] HPon 05-12-2025 HP Normal [facility] LACTIC ACID WITH 4 HOUR REFL EXon 05-12-2025 LACTATE (MMOL/L) IN SER/PLAS 1.0 mmol/L Normal 0.5-2.2 [facility] Comment on above: Performed By: #### L [id number] ####[facility] ([facility])[address] [place] [address] MAGNESIUMon 05-12-2025 Magnesium [Mass/Vol] 1.9 mg/dL Normal 1.9-2.7 [facility] Comment on above: Performed By: #### L [id number] ####[facility] ([facility])[address] [place] [address] MANUAL DIFFERENTIALon 2024 BASOPHILS (10*3/UL) IN BLOOD BY CALCULATION 0.04 10*3/uL Normal 0.00-0.20 [facility] Comment on above: Performed By: #### L [id number] ####[facility] ([facility])[address] [place] [address] BASOPHILS/100 LEUKOCYTES IN BLOOD BY AUTOMATED COUNT 0.2 % Normal 0.0-1.0 [facility] Comment on above: Performed By: #### L [id number] ####[facility] ([facility])[address] [place] [address] EOSINOPHILS (10*3/UL) IN BLOOD BY CALCULATION 0.00 10*3/uL Normal 0.00-0.50 [facility] Comment on above: Performed By: #### L [id number] ####[facility] ([facility])[address] [place] [address] EOSINOPHILS/100 LEUKOCYTES IN BLOOD BY AUTOMATED COUNT 0.0 % Normal 0.0-6.0 [facility] Comment on above: Performed By: #### L [id number] ####[facility] ([facility])[address] [place] [address] IMMATURE GRANULOCYTES (10*3/UL) IN BLOOD BY CALCULATION 0.10 10*3/uL Normal 0.00-0.20 [facility] Comment on above: Performed By: #### L [id number] ####[facility] ([facility])[address] [place] [address] IMMATURE GRANULOCYTES/100 LEUKOCYTES IN BLOOD BY AUTOMATED COUNT 0.5 % Normal 0.0-1.0 [facility] Comment on above: Performed By: #### L [id number] ####[facility] ([facility])[address] [place] [address] LYMPHOCYTES (10*3/UL) IN BLOOD BY CALCULATION 2.12 10*3/uL Normal 1.20-4.00 [facility] Comment on above: Performed By: #### L [id number] ####[facility] ([facility])[address] [place] [address] LYMPHOCYTES/100 LEUKOCYTES IN BLOOD BY AUTOMATED COUNT 11.0 % Low 20.0-45.0 [facility] Comment on above: Performed By: #### L [id number] ####[facility] ([facility])[address] [place] [address] MONOCYTES (10*3/UL) IN BLOOD BY CALCUATION 1.66 10*3/uL High 0.10-1.00 [facility] Comment on above: Performed By: #### L [id number] ####[facility] ([facility])[address] [place] [address] MONOCYTES/100 LEUKOCYTES IN BLOOD BY AUTOMATED COUNT 8.6 % Normal 5.0-12.0 [facility] Comment on above: Performed By: #### L [id number] ####[facility] ([facility])[address] [place] [address] NEUTROPHILS (10*3/UL) IN BLOOD BY CALCULATION 15.4 10*3/uL High 1.6-7.6 [facility] Comment on above: Performed By: #### L [id number] ####[facility] ([facility])[address] [facility] [place] [address] NEUTROPHILS/100 LEUKOCYTES IN BLOOD BY AUTOMATED COUNT 79.7 % High 40.0-72.0 [facility] Comment on above: Performed By: #### L [id number] ####[facility] ([facility])[address] [place] [address] PHOSPHORUSon 05-12-2025 Magnesium [Mass/Vol] 2.9 mg/dL Normal 2.5-5.0 [facility] Comment on above: Performed By: #### L [id number] ####[facility] ([facility])[address] [place] [address] TYPE AND SCREENon 05-12-2025 AB SCREEN Negative Normal [facility] Comment on above: Performed By: #### L [id number] ####[facility], ABO group Nom (Bld) O Normal [facility] Comment on above: Performed By: #### L [id number] ####[facility], RH TYPE IN BLOOD Positive Normal [facility] Comment on above: Performed By: #### L [id number] ####[facility], Ambulatory Visit Summaryon 0 04-23-2025 [...] Rock LUJAN MD Where: [facility] [address], [address] [place] [address]- You Need to Schedule the Following Appointments Follow Up with Rock LUJAN MD, URL When: Where: [address] [facility] [address] [place] [address]- Medications What How Much When Instructions Unchanged [...] cause ar (more content not included)... Normal [facility] Urology Office/Clinic Noteon 04-23-2025 Urology Office/Clinic [...] with voice recognition artificial intelligence software, specifically [employer], [employer] and or [employer]. Substitutions may have occurred due to [...] Information KARLEE GA, Rock Pollock, URL [address] [place] [id number]- Additional Instructions: 6 mos w/ PSAFT and KUB Patient Education Prostate Cancer Screening I, Rianna March, personally scribed for Dr. Lujan on 04/23/2025 09:04:59. . Documentation recorded by the Rianna griffith, accurately reflects the services(s) I performed and decisions made by me. Authenticated by Dr. Lujan on 04/23/2025 09:05:56. Problem List/Past Medical History Ongoing BMI 27.0-27.9,adult BPH with (more content not included)... Normal [facility] Comment on above: Result Comment: Elec tronically Signed By: Rock LUJAN MD\.br\Date and Time Signed: 04/23/25 09:07 EDT\.br\Electronically Co-Signed By: Rianna March\.br\Date and Time Co-Signed: 04/23/25 09:05 EDT Orders Onlyon 02-12-2025 Orders Only [facility] 36on 02-04-2025 36 Detailed voicemail l eft for patient. Melanie Vickers MA [facility] [address] Plasencia: Ariana I put in a request for right and left heart catheterization on this patient per CT surgery request. Please inform the patient to expect a call from the Vice President For Philanthropy to schedule it [facility] 02-03-2025 36 Patient was seen by CT surgery for possible mitral valve repair. CT surgery team reached out to me requesting right and left heart catheterization before proceeding with surgery. Will go ahead and schedule it and inform the patient [facility] 01-31-2025 36 MD Geovanna Simeon MA BMP looks good after increasing losartan dose. Left message for patient advising him of his blood test results. [facility] Abstracton 01-31-2025 Abstract [facility] Consulton 01-30-2025 Consult [facility] 01-22-2025 36 01/22/25 2nd attempt to reach patient to schedule no answer lmom to cb SR [facility] 01-21-2025 36 Call placed to patie nt to schedule appointment no answer left message to call back. [facility] 36 Normal [facility] Telephoneon 01-21-2025 Telephone Normal [facility] ANESon 12-20-2024 ANES Normal [facility] HPon 12-20-2024 HP [facility] NURSNOTEon 12-20-2024 NURSNOTE [facility] Telephoneon 12-13-2024 Telephone [facility] 36on 11-15-2024 36 Regarding lab result s from 11/13/2024: MD Eneida Simeon MA Lipids look very good. Continue current diet and exercise. LM on patient's VM. [facility] Ambulatory Visit Summaryon 0 10-16-2024 [...] GA, Rock Pollock Where: [facility] [address], [address] [place] [address]- You Need to Schedule the Following Appointments Follow Up with KARLEE GA, ASHLEY Hogan When: Where: [address] [facility] [address] [place] [address]- Medications What How Much When Instructions Unchanged [...] yo (more content not included)... Normal [facility] Urology Office/Clinic Noteon 10-16-2024 Urology Office/Clinic [...] with voice recognition artificial intelligence software, specifically [employer], [employer] and or [employer]. Substitutions may have occurred due to [...] Information KARLEE GA, Rock P, URL [address] [place] [id number]- Additional Instructions: 6 mos w/ PSA free [...] (02/11/2016), Cys (more content not included)... Normal [facility] Comment on above: Result Comment: Elec tronically Signed By: Rock LUJAN MD\.br\Date and Time Signed: 10/16/24 08:34 EST\.br\Electronically Co-Signed By: Rianna Macrh\.br\Date and Time Co-Signed: 10/16/24 08:31 EST PSA, FREE AND TOTAL RATIOon 02-09-2023 % Free PSA 19.7 % Normal [facility] Comment on above: Result Comment: The table [...] men. Performed By: #### P SAFREE #### [facility] [address] [place] [address] Dr. Vaishali Dorsey Prostate specific Ag [Mass/Vol] 7.6 ng/mL Critically high 0.0-4.0 [facility] Comment on above: Result Comment: [place] PEGUERO methodology. . According to the [employer], Serum PSA should decrease and [...] disease. Performed By: #### P SAFREE #### [facility] [address] [address] [address] Vaishali Dorsey PSA, Free 1.50 ng/mL Normal N/A [facility] Comment on above: Result Comment: [place] PEGUERO methodology. Performed By: #### P SAFREE #### [facility] [address] [place] [address] Dr. Vaishali Dorsey CBC AUTO DIFFon 11-03-2022 BASO # 0.1 103/ul Normal 0.0-0.1 [facility] Comment on above: Performed By: #### C BC #### [facility] [address] [place] [address] Dr. Vaishali Dorsey Basophils/100 WBC (Bld) 0.6 % Normal 0.2-2.0 [facility] Comment on above: Performed By: #### C BC #### [facility] [address] [place] [address] Dr. Vaishali Dorsey EO # 0.5 103/ul Normal 0.0-0.7 [facility] Comment on above: Performed By: #### C BC #### [facility] [address] [place] [address] Dr. Vaishali Dorsey Eosinophils/100 WBC (Bld) 4.4 % Normal 0.9-7.0 [facility] Comment on above: Performed By: #### C BC #### [facility] [address] [place] [address] Dr. Vaishali Drosey Erythrocyte distribution width (RBC) [Ratio] 17.2 % Critically high 11.0-15.0 [facility] Comment on above: Performed By: #### C BC #### [facility] [address] [place] [address] Dr. Vaishali Dorsey Hematocrit (Bld) [Volume fraction] 39.6 % Critically low 42.0-54.0 [facility] Comment on above: Performed By: #### C BC #### [facility] [address] [place] [address] Dr. Vaishali Dorsey Hemoglobin (Bld) [Mass/Vol] 11.8 g/dL Critically low 14.0-18.0 [facility] Comment on above: Performed By: #### C BC #### [facility] [address] [place] [address] Dr. Vaishali Dorsey IG # 0.03 10e3/ul Normal 0.00-0.03 [facility] Comment on above: Performed By: #### C BC #### [facility] [address] [place] [address] Dr. Vaishali Dorsey IG % 0.3 % Normal 0.0-0.5 [facility] Comment on above: Performed By: #### C BC #### [facility] [address] [place] [address] Dr. Vaishali Dorsey LYMPH # 4.1 103/ul Critically high 1.2-3.8 [facility] Comment on above: Performed By: #### C BC #### [facility] [address] [place] [address] Dr. Vaishali Dorsey Lymphocytes/100 WBC (Bld) 34.2 % Normal 20.5-60.0 [facility] Comment on above: Performed By: #### C BC #### [facility] [address] [place] [address] Dr. Vaishali Dorsey MANUAL DIFF REQ NO Normal [facility] Comment on above: Performed By: #### C BC #### [facility] [address] [place] [address] Dr. Vaishali Dorsey MCH (RBC) [Entitic mass] 24.5 pg Critically low 25.9-34.0 [facility] Comment on above: Performed By: #### C BC #### [facility] [address] [place] [address] Dr. Vaishali Dorsey MCHC (RBC) [Mass/Vol] 29.8 g/dL Critically low 29.9-35.2 [facility] Comment on above: Performed By: #### C BC #### [facility] [address] [place] [address] Dr. Vaishali Dorsey MCV (RBC) [Entitic vol] 82.2 fL Normal 80.0-94.0 [facility] Comment on above: Performed By: #### C BC #### [facility] [address] [place] [address] Dr. Vaishali Dorsey MONO # 1.1 103/ul Critically high 0.3-0.8 [facility] Comment on above: Performed By: #### C BC #### [facility] [address] [place] [address] Dr. Vaishali Dorsey Monocytes/100 WBC (Bld) 9.1 % Normal 1.7-12.0 [facility] Comment on above: Performed By: #### C BC #### [facility] [address] [place] [address] Dr. Vaishali Dorsey NEUT # 6.1 103/ul Normal 1.4-6.5 [facility] Comment on above: Performed By: #### C BC #### [facility] [address] [place] [address] Dr. Vaishali Dorsey Neutrophils/100 WBC (Bld) 51.4 % Normal 43.0-75.0 [facility] Comment on above: Performed By: #### C BC #### [facility] [address] [place] [address] Dr. Vaishali Dorsey Platelet mean volume (Bld) [Entitic vol] 10.3 fL Normal 9.5-13.5 [facility] Comment on above: Performed By: #### C BC #### [facility] [address] [place] [address] Dr. Vaishali Dorsey PLT 231 103/ul Normal 150-450 [facility] Comment on above: Performed By: #### C BC #### [facility] [address] [place] [address] Dr. Vaishali Dorsey RBC 4.82 106/ul Normal 4.70-6.10 [facility] Comment on above: Performed By: #### C BC #### [facility] [address] [place] [address] Dr. Vaishali Dorsey WBC 11.9 103/ul Critically high 4.0-11.0 [facility] Comment on above: Performed By: #### C BC #### [facility] [address] [place] [address] ABD/PELV W CONon [...] OLIVER CHAVEZ Date: 2022-11-03 13:53 Normal [facility] PROF CHEM 8 (BAS METB)on Anion gap [Moles/Vol] 10.3 mmol/L Normal [facility] Comment on above: Performed By: #### B MP ####[facility] [address] [address]Dr. Vaishali Dorsey Calcium [Mass/Vol] 9.2 mg/dL Normal 8.5-10.1 [facility] Comment on above: Performed By: #### B MP ####[facility] [address] [address]Dr. Vaishali Dorsey Chloride [Moles/Vol] 105 mmol/L Normal 98-107 [facility] Comment on above: Performed By: #### B MP ####[facility] [address] [address]Dr. Vaishali Dorsey CO2 [Moles/Vol] 32.4 mmol/L Critically high 21.0-32.0 [facility] Comment on above: Performed By: #### B MP ####[facility] [address] [address]Dr. Vaishali Dorsey Creatinine [Mass/Vol] 1.00 mg/dL Normal 0.70-1.30 [facility] Comment on above: Performed By: #### B MP ####[facility] [address] [address]Dr. Vaishali Dorsey EGFR-AF SIERRA LEONEAN >60 Normal >=60 [facility] Comment on above: Performed By: #### B MP ####[facility] [address] [place], [place] [address]Dr. Vaishali Willian EGFR-NON AF SIERRA LEONEAN >60 Normal >=60 [facility] Comment on above: Performed By: #### B MP ####[facility] [address] [place], [place] [address]Dr. Jaquelinenelson Willian Glucose [Mass/Vol] 101 mg/dL Normal 74-106 [facility] Comment on above: Performed By: #### B MP ####[facility] [address] [place], [place] [address]Dr. Vaishali Willian Potassium [Moles/Vol] 5.7 mmol/L Critically high 3.5-5.1 [facility] Comment on above: Performed By: #### B MP ####[facility] [address] [place], [place] [address]Dr. Jaquelinenelson Willian Sodium [Moles/Vol] 142 mmol/L Normal 136-145 [facility] Comment on above: Performed By: #### B MP ####[facility] [address] [place], [place] [address]Dr. Jaquelinenelson Dorsey Urea nitrogen [Mass/Vol] 13.0 mg/dL Normal 7.0-18.0 [facility] Comment on above: Performed By: #### B MP ####[facility] [address] [place], [place] [address]Dr. Vaishali Dorsey Urea nitrogen/Creatinin e [Mass ratio] 13.0 mg/mg Normal [facility] Comment on above: Performed By: #### B MP ####[facility] [address] [place], [place] [address]KgDr. Vaishali Dorsey PROTIMEon 11-03-2022 INR Coag (PPP) [Relative time] 0.96 {INR} Normal [facility] Comment on above: Performed By: #### P T #### [facility] [address] [address] [address] Vaishali Dorsey INR GUIDELINES SEE BELOW Normal [facility] Comment on above: Result Comment: JOSEF RED INR: 2.0 - 3.0 CONDITIONS NOT LISTED BELOW 2.5 - 3.5 FOR PROSTHETIC HEART VALVE REPLACEMENT 2.5 - 3.5 RECURRENT THROMBOSIS Performed By: #### P T #### [facility] [address] [address] [address] Vaishali Dorsey PT Coag (PPP) [Time] 10.2 s Normal 9.0-11.6 [facility] Comment on above: Performed By: #### P T #### [facility] [address] [address] [address] Vaishali Dorsey Covid-19 PCR ([facility])on 08-03 SARS-CoV-2 (COVID-19) RNA NICK+probe Ql (Unsp spec) Not detected Normal NOT DETECTED [facility] Comment on above: Result Comment: When diagnostic [...] for this test is supported by the [place] [employer] and Human Service's declaration that [...] used). Performed By: #### C VDTBH #### [facility] [address] [address] [address] Vaishali Dorsey CBC AUTO DIFFon 06-28-2022 BASO # 0.1 103/ul Normal 0.0-0.1 [facility] Comment on above: Performed By: #### C BC #### [facility] [address] [place] [address] Dr. Vaishali Dorsey Basophils/100 WBC (Bld) 0.6 % Normal 0.2-2.0 [facility] Comment on above: Performed By: #### C BC #### [facility] [address] [place] [address] Dr. Vaishali Dorsey EO # 0.3 103/ul Normal 0.0-0.7 [facility] Comment on above: Performed By: #### C BC #### [facility] [address] [place] [address] Dr. Vaishali Dorsey Eosinophils/100 WBC (Bld) 2.0 % Normal 0.9-7.0 [facility] Comment on above: Performed By: #### C BC #### [facility] [address] [place] [address] Dr. Vaishali Dorsey Erythrocyte distribution width (RBC) [Ratio] 16.4 % Critically high 11.0-15.0 [facility] Comment on above: Performed By: #### C BC #### [facility] [address] [place] [address] Dr. Vaishali Dorsey Hematocrit (Bld) [Volume fraction] 38.0 % Critically low 42.0-54.0 [facility] Comment on above: Performed By: #### C BC #### [facility] [address] [place] [address] Dr. Vaishali Dorsey Hemoglobin (Bld) [Mass/Vol] 11.8 g/dL Critically low 14.0-18.0 [facility] Comment on above: Performed By: #### C BC #### [facility] [address] [place] [address] Dr. Vaishali Dorsey IG # 0.04 10e3/ul Critically high 0.00-0.03 [facility] Comment on above: Performed By: #### C BC #### [facility] [address] [place] [address] Dr. Vaishali Dorsey IG % 0.3 % Normal 0.0-0.5 [facility] Comment on above: Performed By: #### C BC #### [facility] [address] [place] [address] Dr. Vaishali Dorsey LYMPH # 3.6 103/ul Normal 1.2-3.8 [facility] Comment on above: Performed By: #### C BC #### [facility] [address] [place] [address] Dr. Vaishali Dorsey Lymphocytes/100 WBC (Bld) 28.4 % Normal 20.5-60.0 [facility] Comment on above: Performed By: #### C BC #### [facility] [address] [place] [address] Dr. Vaishali Dorsey MANUAL DIFF REQ NO Normal [facility] Comment on above: Performed By: #### C BC #### [facility] [address] [place] [address] Dr. Vaishali Dorsey MCH (RBC) [Entitic mass] 25.2 pg Critically low 25.9-34.0 [facility] Comment on above: Performed By: #### C BC #### [facility] [address] [place] [address] Dr. Vaishali Dorsey MCHC (RBC) [Mass/Vol] 31.1 g/dL Normal 29.9-35.2 [facility] Comment on above: Performed By: #### C BC #### [facility] [address] [place] [address] Dr. Vaishali Dorsey MCV (RBC) [Entitic vol] 81.0 fL Normal 80.0-94.0 [facility] Comment on above: Performed By: #### C BC #### [facility] [address] [place] [address] Dr. Vaishali Dorsey MONO # 1.1 103/ul Critically high 0.3-0.8 [facility] Comment on above: Performed By: #### C BC #### [facility] [address] [address] [address] Vaishali Dorsey Monocytes/100 WBC (Bld) 8.3 % Normal 1.7-12.0 [facility] Comment on above: Performed By: #### C BC #### [facility] [address] [address] [address] Vaishali Dorsey NEUT # 7.6 103/ul Critically high 1.4-6.5 [facility] Comment on above: Performed By: #### C BC #### [facility] [address] [address] [address] Vaishali Dorsey Neutrophils/100 WBC (Bld) 60.4 % Normal 43.0-75.0 [facility] Comment on above: Performed By: #### C BC #### [facility] [address] [place] [address] Dr. Vaishali Dorsey Platelet mean volume (Bld) [Entitic vol] 10.7 fL Normal 9.5-13.5 [facility] Comment on above: Performed By: #### C BC #### [facility] [address] [place] [address] Dr. Vaishali Dorsey PLT 226 103/ul Normal 150-450 [facility] Comment on above: Performed By: #### C BC #### [facility] [address] [place] [address] Dr. Vaishali Dorsey RBC 4.69 106/ul Critically low 4.70-6.10 [facility] Comment on above: Performed By: #### C BC #### [facility] [address] [place] [address] Dr. Vaishali Dorsey WBC 12.6 103/ul Critically high 4.0-11.0 [facility] Comment on above: Performed By: #### C BC #### [facility] [address] [place] [address] Dr. Vaishali Dorsey FERRITINon 06-28-2022 Ferritin [Mass/Vol] 8.0 ng/mL Critically low 26.0-388.0 [facility] Comment on above: Performed By: #### F ERR #### [facility] [address] [place] [address] Dr. Vaishali Dorsey PROF 14(COMP METB)on 022 Albumin [Mass/Vol] 3.8 g/dL Normal 3.4-5.0 [facility] Comment on above: Performed By: #### C MP #### [facility] [address] [place] [address] Dr. Vaishali Dorsey Albumin/Globulin [Mass ratio] 1.1 {ratio} Normal [facility] Comment on above: Performed By: #### C MP #### [facility] [address] [place] [address] Dr. Vaishali Dorsey ALP [Catalytic activity/Vol] 66 U/L Normal 46-116 [facility] Comment on above: Performed By: #### C MP #### [facility] [address] [place] [address] Dr. Vaishali Dorsey ALT [Catalytic activity/Vol] 22 U/L Normal 16-63 [facility] Comment on above: Performed By: #### C MP #### [facility] [address] [place] [address] Dr. Vaishali Dorsey Anion gap [Moles/Vol] 10.4 mmol/L Normal [facility] Comment on above: Performed By: #### C MP #### [facility] [address] [place] [address] Dr. Vaishali Dorsey AST [Catalytic activity/Vol] 19 U/L Normal 15-37 [facility] Comment on above: Performed By: #### C MP #### [facility] [address] [place] [address] Dr. Vaishali Dorsey Bilirubin [Mass/Vol] 0.2 mg/dL Normal 0.2-1.0 [facility] Comment on above: Performed By: #### C MP #### [facility] [address] [place] [address] Dr. Vaishali Dorsey Calcium [Mass/Vol] 9.2 mg/dL Normal 8.5-10.1 [facility] Comment on above: Performed By: #### C MP #### [facility] [address] [place] [address] Dr. Vaishali Dorsey Chloride [Moles/Vol] 107 mmol/L Normal 98-107 [facility] Comment on above: Performed By: #### C MP #### [facility] [address] [place] [address] Dr. Vaishali Dorsey CO2 [Moles/Vol] 31.2 mmol/L Normal 21.0-32.0 [facility] Comment on above: Performed By: #### C MP #### [facility] [address] [place] [address] Dr. Vaishali Dorsey Creatinine [Mass/Vol] 1.02 mg/dL Normal 0.70-1.30 [facility] Comment on above: Performed By: #### C MP #### [facility] [address] [place] [address] Dr. Vaishali Dorsey EGFR-AF SIERRA LEONEAN >60 Normal >=60 [facility] Comment on above: Performed By: #### C MP #### [facility] [address] [place] [address] Dr. Vaishali Dorsey EGFR-NON AF SIERRA LEONEAN >60 Normal >=60 [facility] Comment on above: Performed By: #### C MP #### [facility] [address] [place] [address] Dr. Vaishali Dorsey Globulin (S) [Mass/Vol] 3.6 g/dL Normal [facility] Comment on above: Performed By: #### C MP #### [facility] [address] [place] [address] Dr. Vaishali Dorsey Glucose [Mass/Vol] 101 mg/dL Normal 74-106 [facility] Comment on above: Performed By: #### C MP #### [facility] [address] [place] [address] Dr. Vaishali Dorsey Potassium [Moles/Vol] 4.6 mmol/L Normal 3.5-5.1 [facility] Comment on above: Performed By: #### C MP #### [facility] [address] [place] [address] Dr. Vaishali Dorsey Protein [Mass/Vol] 7.4 g/dL Normal 6.4-8.2 [facility] Comment on above: Performed By: #### C MP #### [facility] [address] [place] [address] Dr. Vaishali Dorsey Sodium [Moles/Vol] 144 mmol/L Normal 136-145 [facility] Comment on above: Performed By: #### C MP #### [facility] [address] [place] [address] Dr. Vaishali Dorsey Urea nitrogen [Mass/Vol] 14.0 mg/dL Normal 7.0-18.0 [facility] Comment on above: Performed By: #### C MP #### [facility] [address] [place] [address] Dr. Vaishali Dorsey Urea nitrogen/Creatinin e [Mass ratio] 13.7 mg/mg Normal [facility] Comment on above: Performed By: #### C MP #### [facility] [address] [place] [address] Dr. Vaishali Dorsey PSA, FREE AND TOTAL RATIOon 04-21-2022 % Free PSA 18.9 % Normal [facility] Comment on above: Result Comment: The table [...] men. Performed By: #### P SAFREE #### [facility] [address] [place] [address] Dr. Vaishali Dorsey Prostate specific Ag [Mass/Vol] 6.5 ng/mL Critically high 0.0-4.0 [facility] Comment on above: Result Comment: Dakota MCCLAINIA methodology. . According to the [place] [employer], Serum PSA should decrease and [...] disease. Performed By: #### P SAFREE #### [facility] [address] [place], [place] [address] Dr. Vaishali Dorsey PSA, Free 1.23 ng/mL Normal N/A [facility] Comment on above: Result Comment: Dakota treoj ECLIA methodology. Performed By: #### P SAFREE #### [facility] [address] [place], [place] [address] Dr. Vaishali Dorsey COVID-19 [facility] 03-24-2022 SARS-CoV-2 (COVID-19) RNA NICK+probe Ql (Unsp spec) Negative Normal Negative [facility] Comment on above: Order Comment: Healt hcare Worker?: N Result Comment: Testing for SARS-CoV-2 by RT-PCR This test was developed and its performance characteristics determined by [employer] and validated at the [facility]. This test has not been FDA [...] is terminated or revoked sooner. PERFORMED BY: [facility] [place] [address] PATHOLOGIST [employer] ENGINEER KAMERON MARTIN M.D. Performed By: #### C OVID 19 [facility] #### [facility] [address] Basic Metabolic Panlon 10-22 Anion gap 12 mmol/L Normal 9-18 [facility] Comment on above: Performed By: #### I CA, CBCDIF, VITD, PTHI, CMP, URIC ####[place] [address] [address] [phone] Calcium 8.2 mg/dL Low 8.5-10.2 [facility] Comment on above: Performed By: #### I CA, CBCDIF, VITD, PTHI, CMP, URIC ####[place] [address] [phone] Chloride 102 mmol/L Normal 97-105 [facility] Comment on above: Performed By: #### I CA, CBCDIF, VITD, PTHI, CMP, URIC ####[place] [address] [address] [phone] CO2 26 mmol/L Normal 22-30 [facility] Comment on above: Performed By: #### I CA, CBCDIF, VITD, PTHI, CMP, URIC ####[place] [address] [phone] Creatinine 0.98 mg/dL Normal 0.73-1.22 [facility] Comment on above: Performed By: #### I CA, CBCDIF, VITD, PTHI, CMP, URIC ####[address] [place] [address] [phone] eGFR (non-black) mL/min/{1.73_m2} Normal [facility] Comment on above: Result Comment: eGFR [...] I CA, CBCDIF, VITD, PTHI, CMP, URIC ####[facility] [place] [address] [phone] Glucose mass conc 85 mg/dL Normal 74-99 [facility] Comment on above: Result Comment: The [place] Diabetes Association (ADA) provides guidance for cutoff [...] Standards of Medical Care in Diabetes 2016, [place] Diabetes Association. Diabetes Care. 2016.39(Suppl 1). Performed By: #### I CA, CBCDIF, VITD, PTHI, CMP, URIC ####[facility] [place] [address] [phone] Potassium molar conc 3.5 mmol/L Low 3.7-5.1 [facility] Comment on above: Performed By: #### I CA, CBCDIF, VITD, PTHI, CMP, URIC ####[facility] [place], [place] [phone] Sodium 140 mmol/L Normal 136-144 [facility] Comment on above: Performed By: #### I CA, CBCDIF, VITD, PTHI, CMP, URIC ####[facility] [place], [place] [phone] Urea nitrogen 5 mg/dL Low 9-24 [facility] Comment on above: Performed By: #### I CA, CBCDIF, VITD, PTHI, CMP, URIC ####[place] [address] [address]level[address] [phone] CBCon 10-22-2017 Erythrocyte distribution width Auto Ratio (RBC) 13.1 % Normal 11.5-15.0 [facility] Comment on above: Performed By: #### I CA, CBCDIF, VITD, PTHI, CMP, URIC ####[place] [address] [address] [phone] Erythrocytes (RBC) 10*6/uL Normal <0.01 [place] Comment on above: Performed By: #### I CA, CBCDIF, VITD, PTHI, CMP, URIC ####[place] [address] [address] [phone] Erythrocytes (RBC) 3.32 10*6/uL Low 4.20-6.00 [facility] Comment on above: Performed By: #### I CA, CBCDIF, VITD, PTHI, CMP, URIC ####[place] [address] [address] [phone] Hematocrit (HCT) 29.6 % Low 39.0-51.0 [facility] Comment on above: Performed By: #### I CA, CBCDIF, VITD, PTHI, CMP, URIC ####[place] [address] [address] [phone] Hemoglobin mass conc (Bld) 9.8 g/dL Low 13.0-17.0 [facility] Comment on above: Performed By: #### I CA, CBCDIF, VITD, PTHI, CMP, URIC ####[place] [address] [address] [phone] MCH 29.5 pG Normal 26.0-34.0 [facility] Comment on above: Performed By: #### I CA, CBCDIF, VITD, PTHI, CMP, URIC ####[address] [place] AveCTulsa, [place] [phone] MCHC mass conc (RBC) 33.1 g/dL Normal 30.5-36.0 [facility] Comment on above: Performed By: #### I CA, CBCDIF, VITD, PTHI, CMP, URIC ####[address] [place] AveCTulsa, [place] [phone] MCV 89.2 fL Normal 80.0-100.0 [facility] Comment on above: Performed By: #### I CA, CBCDIF, VITD, PTHI, CMP, URIC ####[place] [address] [address]CT[address], [place] [phone] Platelet mean volume (PMV) 10.5 fL Normal 9.0-12.7 [facility] Comment on above: Performed By: #### I CA, CBCDIF, VITD, PTHI, CMP, URIC ####[place] [address] [address], [place] [phone] Platelets 267 10*3/uL Normal 150-400 [facility] Comment on above: Performed By: #### I CA, CBCDIF, VITD, PTHI, CMP, URIC ####[facility], [place] [phone] WBC (Leukocytes) 10.19 10*3/uL Normal 3.70-11.00 [facility] Comment on above: Performed By: #### I CA, CBCDIF, VITD, PTHI, CMP, URIC ####[address] [place] [address] [address] AveCTul[address], [place] [phone] CNDSon 10-22-2017 CNDS HNO ID: [id number] thor: Feliciano Santanaervice: UrologyAuthor Type: PhysicianType: Discharge SummariesFiled: 10/23/2017 8:54 AMNote Text:DISCHARGE SUMMARYPATIENT NAME: Darrell Nelson ADMISSION DATE: 10/21/2017MRN: [id number] DISCHARGE DATE: 10/22/2017Attending Physician: Feliciano Vega for Hospitalization: HematuriaActive Problems: LeukocytosisResolved Problems: * No resolved hospital problems. *Operations During Hospitalization: NoneProcedures During Hospitalization: cystoscopy, right stent removal [facility] eHospital Course: Patient was admitted from [...] of this patient.SIGNATURE: Tk Abdalla MD PAGER: [phone]: October 22, 2017TIME: 9:32 AMMark Schroeder, MDDirector, Surgical Stone Disease, [facility] InstituteProfessor of Surgery, [facility] HospitalPager [phone]/23/2017 Normal Zahra d [facility] PROGRESSon 10-22-2017 PROGRESS HNO ID: [id number] thor: Tk (Res) NIK Abdallaervice: UrologyAuthor Type: [...] lb 4 oz) SpO2 95% BMI 25.43 kg/o0Aawmspprknx max: Temp (24hrs), Av.1 ?C (98.7 ?F), Min:36.8 ?C (98.3?F), Max:37.2 ?C (99 ?F)Intake/Output 10/21/17 0700 - 10/22/17 0659 10/22/17 0700 - 10/23/17 0659 Intake (ml) 2180 -- Output (ml) 2550 650 Net (ml) -370 -650LABS:BUN (mg/dL)Date Value10/22/2017 501 801 701/08/2018 912 10 Creatinine (mg/dL)Date Value10/22/2017 0.9801 0.9201 0.9001 1.0012 1.05 Recent Labs [id number] 10.19HB 9.8*HCT 29.6*NA 140K 3.5*CHLOR 102CO2 26GLUC 85Glucose, Urine (mg/dL)Date Value10/21/2017 Negative Bilirubin, Urine (no units)Date Value10/21/2017 Negative Ketones, Urine (no units)Date Value10/21/2017 Negative Specific [place], Ur (no units)Date Value10/21/2017 1.010 Hemoglobin/Blood ,Ur ( )Date Value10/21/2017 3+ (A) pH, Urine (no units)Date Value10/21/2017 6.0 Protein, Urine (mg/dL)Date Value10/21/2017 30 (A) Nitrites (no units)Date Value10/21/2017 Negative WBC, Urine (/HPF)Date Value10/21/2017 >25 (A) Color (no units)Date Value10/21/2017 Yellow Clarity (no units)Date Value10/21/2017 Cloudy (A) Assessment/PlanAct [facility] Problems Leukocytosis [D72.829]Mr. Nelson is a 67 [...] 22, 2017 : 7:31 AM PAGER/CONTACT #: [phone] Normal [facility] Basic Metabolic Panlon 10-21 Anion gap 14 mmol/L Normal 9-18 [facility] Comment on above: Performed By: #### I CA, CBCDIF, VITD, PTHI, CMP, URIC ####[facility] [address] [place], [place] [phone] Calcium 8.3 mg/dL Low 8.5-10.2 [facility] Comment on above: Performed By: #### I CA, CBCDIF, VITD, PTHI, CMP, URIC ####[facility] [address]Com[place], [place] [phone] Chloride 104 mmol/L Normal 97-105 [facility] Comment on above: Performed By: #### I CA, CBCDIF, VITD, PTHI, CMP, URIC ####[facility] [address]Com[place], [place] [phone] CO2 25 mmol/L Normal 22-30 [facility] Comment on above: Performed By: #### I CA, CBCDIF, VITD, PTHI, CMP, URIC ####[facility] [place], [place] [phone] Creatinine 0.92 mg/dL Normal 0.73-1.22 [facility] Comment on above: Performed By: #### I CA, CBCDIF, VITD, PTHI, CMP, URIC ####[facility], [place] [phone] eGFR (non-black) mL/min/{1.73_m2} Normal [facility] Comment on above: Result Comment: eGFR [...] I CA, CBCDIF, VITD, PTHI, CMP, URIC ####[place] [address] [place], [place] [phone] Glucose mass conc 79 mg/dL Normal 74-99 [facility] Comment on above: Result Comment: The [place] Diabetes Association (ADA) provides guidance for cutoff [...] Standards of Medical Care in Diabetes 2016, [place] Diabetes Association. Diabetes Care. 2016.39(Suppl 1). Performed By: #### I CA, CBCDIF, VITD, PTHI, CMP, URIC ####[place] [phone] Potassium molar conc 3.7 mmol/L Normal 3.7-5.1 [facility] Comment on above: Performed By: #### I CA, CBCDIF, VITD, PTHI, CMP, URIC ####[place] [phone] Sodium 143 mmol/L Normal 136-144 [facility] Comment on above: Performed By: #### I CA, CBCDIF, VITD, PTHI, CMP, URIC ####[place] [phone] Urea nitrogen 8 mg/dL Low 9-24 [facility] Comment on above: Performed By: #### I CA, CBCDIF, VITD, PTHI, CMP, URIC ####[place] [phone] CBC and Differentialon 10-21 Abs Baso 0.05 k/uL Normal <0.11 [facility] Comment on above: Performed By: #### I CA, CBCDIF, VITD, PTHI, CMP, URIC ####[place] [phone] Abs Otero 0.81 k/uL Normal <0.87 [facility] Comment on above: Performed By: #### I CA, CBCDIF, VITD, PTHI, CMP, URIC ####[address] [place] [phone] Abs Neut 6.30 k/uL Normal 1.45-7.50 [facility] Comment on above: Performed By: #### I CA, CBCDIF, VITD, PTHI, CMP, URIC ####[facility] AveClevelDahlgren, [place] [phone] Basophils/100 WBC Auto (Bld) 0.5 % Normal [facility] Comment on above: Performed By: #### I CA, CBCDIF, VITD, PTHI, CMP, URIC ####[place] [address] [address]ClevelandGood[address], [place] [phone] DTYPE Auto Diff Normal [facility] Comment on above: Performed By: #### I CA, CBCDIF, VITD, PTHI, CMP, URIC ####[place] [address] [address]ClevelRobert [address] [phone] Eosinophils 0.24 10*3/uL Normal <0.46 [facility] Comment on above: Performed By: #### I CA, CBCDIF, VITD, PTHI, CMP, URIC ####[place] [address] [address] AveClevelRobert [address] [phone] Eosinophils/100 leukocytes 2.3 % Normal [facility] Comment on above: Performed By: #### I CA, CBCDIF, VITD, PTHI, CMP, URIC ####[place] [address] [address]ClevelRobert [address] [phone] Erythrocyte distribution width Auto Ratio (RBC) 13.1 % Normal 11.5-15.0 [facility] Comment on above: Performed By: #### I CA, CBCDIF, VITD, PTHI, CMP, URIC ####[place] [address]ClevelDahlgren, [place] [phone] Erythrocytes (RBC) 3.34 10*6/uL Low 4.20-6.00 [facility] Comment on above: Performed By: #### I CA, CBCDIF, VITD, PTHI, CMP, URIC ####[place] [address]ClevelDahl[place], [place] [phone] Erythrocytes (RBC) 10*6/uL Normal <0.01 [place] Comment on above: Performed By: #### I CA, CBCDIF, VITD, PTHI, CMP, URIC ####[place] [address]CC[address] [place] [phone] Erythrocytes (RBC) 0.0 /100 WBC Normal 0 [facility] Comment on above: Performed By: #### I CA, CBCDIF, VITD, PTHI, CMP, URIC ####[place] [address] AveCLeon [place] [phone] Hematocrit (HCT) 30.2 % Low 39.0-51.0 [facility] Comment on above: Performed By: #### I CA, CBCDIF, VITD, PTHI, CMP, URIC ####[place] [address] [address]Sh[address] [place] [phone] Hemoglobin mass conc (Bld) 10.2 g/dL Low 13.0-17.0 [facility] Comment on above: Performed By: #### I CA, CBCDIF, VITD, PTHI, CMP, URIC ####[place] [address] [address] AvMartha [place] [phone] Lymphocytes 3.06 10*3/uL Normal 1.00-4.00 [facility] Comment on above: Performed By: #### I CA, CBCDIF, VITD, PTHI, CMP, URIC ####[place] [address]Joy [place] [phone] Lymphocytes/100 leukocytes 29.3 % Normal [facility] Comment on above: Performed By: #### I CA, CBCDIF, VITD, PTHI, CMP, URIC ####[place] [address] AvShane [place] [phone] MCH 30.5 pG Normal 26.0-34.0 [facility] [facility] Comment on above: Performed By: #### I CA, CBCDIF, VITD, PTHI, CMP, URIC ####[place] [address] [address] [place] [phone] MCHC mass conc (RBC) 33.8 g/dL Normal 30.5-36.0 [facility] Comment on above: Performed By: #### I CA, CBCDIF, VITD, PTHI, CMP, URIC ####[place] [address] [address]CT[address], [place] [phone] MCV 90.4 fL Normal 80.0-100.0 [facility] Comment on above: Performed By: #### I CA, CBCDIF, VITD, PTHI, CMP, URIC ####[place] [address] [address] [phone] Monocytes/100 leukocytes 7.7 % Normal [facility] Comment on above: Performed By: #### I CA, CBCDIF, VITD, PTHI, CMP, URIC ####[place] [address] [address] [place] [phone] Neutrophils/100 WBC Auto (Bld) 60.2 % Normal [facility] Comment on above: Performed By: #### I CA, CBCDIF, VITD, PTHI, CMP, URIC ####[place] [address] [address] [place] [phone] Platelet mean volume (PMV) 10.7 fL Normal 9.0-12.7 [facility] Comment on above: Performed By: #### I CA, CBCDIF, VITD, PTHI, CMP, URIC ####[place] [address] [address], [place] [phone] Platelets 260 10*3/uL Normal 150-400 [facility] Comment on above: Performed By: #### I CA, CBCDIF, VITD, PTHI, CMP, URIC ####[place] [address] [address], [place] [phone] WBC (Leukocytes) 10.46 10*3/uL Normal 3.70-11.00 [facility] Comment on above: Performed By: #### I CA, CBCDIF, VITD, PTHI, CMP, URIC ####[facility]Com[address], [place] [phone] Protimeon 10-21-2017 INR Coag RelTime (Bld) 1.0 {INR} Normal 0.9-1.3 [facility] Comment on above: Result Comment: Laisha min K Antagonist (VKA) Therapeutic Range: INR 2 to 3 (Target INR of 2.5)Note: For patients treated with VKA drugs, such as warfarin, the [place] [employer] 2012 Guideline recommends [...] al. Chest 2012, 141:7S-47SNishimura RA, et al. [facility] 2017, 70: 252-289 Performed By: #### I CA, CBCDIF, VITD, PTHI, CMP, URIC ####[facility] [place], [place] [phone] PT Sec 10.4 sec Normal 9.7-13.0 [facility] Comment on above: Performed By: #### I CA, CBCDIF, VITD, PTHI, CMP, URIC ####[facility], [place] [phone] Type and Screenon 10-21-2017 ABO/RH(D) Positive Normal [facility] Comment on above: Performed By: #### I CA, CBCDIF, VITD, PTHI, CMP, URIC ####[facility] [address] AveCTulsa, [place] [phone] Antibody Screen Negative Normal [facility] Comment on above: Performed By: #### I CA, CBCDIF, VITD, PTHI, CMP, URIC ####[address] [place] [phone] Urinalysison 10-21-2017 Bilirubin, Urine Negative Normal Negative [facility] Comment on above: Performed By: #### I CA, CBCDIF, VITD, PTHI, CMP, URIC ####[place] [address] [address] [phone] Comments SEE COMMENT Normal [facility] Comment on above: Result Comment: Micr oscopic Examination Performed Performed By: #### I CA, CBCDIF, VITD, PTHI, CMP, URIC ####[address] [place] [phone] Erythrocytes (RBC) 10*6/uL Critically abnormal 0-3 [facility] Comment on above: Performed By: #### I CA, CBCDIF, VITD, PTHI, CMP, URIC ####[place] [phone] Hemoglobin mass conc (Bld) 3+ Critically abnormal Negative [facility] Comment on above: Performed By: #### I CA, CBCDIF, VITD, PTHI, CMP, URIC ####[phone] Leukest 3+ Critically abnormal Negative [facility] Comment on above: Performed By: #### I CA, CBCDIF, VITD, PTHI, CMP, URIC ####[place] [phone] pH of blood 6.0 [pH] Normal 4.5-8.0 [facility] Comment on above: Performed By: #### I CA, CBCDIF, VITD, PTHI, CMP, URIC ####[address] [place] [phone] Protein, Urine 30 mg/dL Critically abnormal Negative [facility] Comment on above: Performed By: #### I CA, CBCDIF, VITD, PTHI, CMP, URIC ####[place] [address] AveCLeon [place] [phone] Specific [place], Ur 1.010 Normal 1.005-1.03 0 [facility] Comment on above: Performed By: #### I CA, CBCDIF, VITD, PTHI, CMP, URIC ####[place] [address] [address] [place] [phone] Urine Kelby Comment SEE COMMENT [facility] Comment on above: Result Comment: N/A Performed By: #### I CA, CBCDIF, VITD, PTHI, CMP, URIC ####[place] [address] [address]CL[address] [place] [phone] Urine, clarity Cloudy Critically abnormal Clear [facility] Comment on above: Performed By: #### I CA, CBCDIF, VITD, PTHI, CMP, URIC ####[place] [address] [address]CL[address] [place] [phone] Urine, color Yellow Normal Yellow [facility] Comment on above: Performed By: #### I CA, CBCDIF, VITD, PTHI, CMP, URIC ####[place] [address] [address] [place] [phone] Urine, epithelial cells in sediment SEE COMMENT Normal [facility] Comment on above: Result Comment: FewS quamous Epithelial Cells Performed By: #### I CA, CBCDIF, VITD, PTHI, CMP, URIC ####[place] [address] [address]CAll[address] [place] [phone] Urine, glucose presence Negative Normal Negative [facility] Comment on above: Performed By: #### I CA, CBCDIF, VITD, PTHI, CMP, URIC ####[place] [address] [address] [place] [phone] Urine, ketones presence Negative Normal Negative [facility] Comment on above: Performed By: #### I CA, CBCDIF, VITD, PTHI, CMP, URIC ####[facility] [place] [phone] Urine, nitrite presence Negative Normal Negative [facility] Comment on above: Performed By: #### I CA, CBCDIF, VITD, PTHI, CMP, URIC ####[place] [address]CC[address] [place] [phone] Urine, urobilinogen Normal Normal Normal [facility] Comment on above: Performed By: #### I CA, CBCDIF, VITD, PTHI, CMP, URIC ####[place] [address] [place] [phone] WBC (Leukocytes) 10*3/uL Critically abnormal 0-5 [facility] Comment on above: Performed By: #### I CA, CBCDIF, VITD, PTHI, CMP, URIC ####[place] [address]CC[address] [place] [phone] Urine Cultureon 10-21-2017 Urine culture, bacteria Sp. Request/Comment: - Specimen received in preservative Culture Result - No growth (<1,000 CFU/ml) Normal [facility] Comment on above: Performed By: #### I CA, CBCDIF, VITD, PTHI, CMP, URIC ####[place] [address] [address] [place] [phone] HISTORY PHYSICALon 8 HISTORY PHYSICAL HNO ID: [id number] thor: Tk (Res) NIK Abdallaervice: UrologyAuthor Type: ResidentType: HANDPFiled: 10/21/2017 2:31 PMNote Text:HANDP: UROLOGY SERVICENAME: Darrell Handley JeannieRN: [id number]: [id number] DATE: 10/19/2017SERVICE TIME: 5:04 [facility] CARE PHYSICIAN: Abigail Sanchez, [facility] MED[facility] CENTERESSMENT AND PLANMr. Alvin is a 67 [...] with Dr. Adarsh Abdalla III, MDUrology PGY-2Pager: [phone] 201710:00Overnight and on weekends please page [phone] OF PRESENT ILLNESSMr. Alvin is a 67 [...] in R renal pelvis Normal [facility] Basic Metabolic Panlon 10-13 Anion gap 12 mmol/L Normal 9-18 [facility] Comment on above: Performed By: #### I CA, CBCDIF, VITD, PTHI, CMP, URIC ####[place] [address] [address] [place] [phone] Calcium 8.2 mg/dL Low 8.5-10.2 [facility] Comment on above: Performed By: #### I CA, CBCDIF, VITD, PTHI, CMP, URIC ####[place] [address] [address]CL[address] [place] [phone] Chloride 103 mmol/L Normal 97-105 [facility] Comment on above: Performed By: #### I CA, CBCDIF, VITD, PTHI, CMP, URIC ####[place] [address] [address]CL[address] [place] [phone] CO2 25 mmol/L Normal 22-30 [facility] Comment on above: Performed By: #### I CA, CBCDIF, VITD, PTHI, CMP, URIC ####[place] [address] [address] [place] [phone] Creatinine 0.90 mg/dL Normal 0.73-1.22 [facility] Comment on above: Performed By: #### I CA, CBCDIF, VITD, PTHI, CMP, URIC ####[place] [address] [address]CL[address] [place] [phone] eGFR (non-black) mL/min/{1.73_m2} Normal Cl [facility] Comment on above: Performed By: #### I CA, CBCDIF, VITD, PTHI, CMP, URIC ####[place] [address] [address] [place] [phone] Result Comment: eGFR (Estimated GFR) Units of [...] Glucose mass conc 95 mg/dL Normal 74-99 [facility] Comment on above: Result Comment: The [place] Diabetes Association (ADA) provides guidance for cutoff [...] Standards of Medical Care in Diabetes 2016, [place] [employer]. Diabetes Care. 2016.39(Suppl 1). Performed By: #### I CA, CBCDIF, VITD, PTHI, CMP, URIC ####[facility] [place] [address] [phone] Potassium molar conc 3.9 mmol/L Normal 3.7-5.1 [facility] Comment on above: Performed By: #### I CA, CBCDIF, VITD, PTHI, CMP, URIC ####[facility] [place], [place] [phone] Sodium 140 mmol/L Normal 136-144 [facility] Comment on above: Performed By: #### I CA, CBCDIF, VITD, PTHI, CMP, URIC ####[facility] [place], [place] [phone] Urea nitrogen 7 mg/dL Low 9-24 [facility] Comment on above: Performed By: #### I CA, CBCDIF, VITD, PTHI, CMP, URIC ####[place] [address]CC[address] [place] [phone] CBC and Differentialon 10-13 Abs Baso 0.03 k/uL Normal <0.11 [facility] Comment on above: Performed By: #### I CA, CBCDIF, VITD, PTHI, CMP, URIC ####[place] [address] [place] [phone] Abs Otero 1.28 k/uL High <0.87 [facility] Comment on above: Performed By: #### I CA, CBCDIF, VITD, PTHI, CMP, URIC ####[place] [address] [place] [phone] Abs Neut 8.97 k/uL High 1.45-7.50 [facility] Comment on above: Performed By: #### I CA, CBCDIF, VITD, PTHI, CMP, URIC ####[place] [address] [address] [place] [phone] Basophils/100 WBC Auto (Bld) 0.2 % Normal [facility] Comment on above: Performed By: #### I CA, CBCDIF, VITD, PTHI, CMP, URIC ####[place] [address] [address] [place] [phone] DTYPE Auto Diff Normal [facility] Comment on above: Performed By: #### I CA, CBCDIF, VITD, PTHI, CMP, URIC ####[place] [address] [place] [phone] Eosinophils 0.20 10*3/uL Normal <0.46 [facility] Comment on above: Performed By: #### I CA, CBCDIF, VITD, PTHI, CMP, URIC ####[place] [address] [place] [phone] Eosinophils/100 leukocytes 1.6 % Normal [facility] Comment on above: Performed By: #### I CA, CBCDIF, VITD, PTHI, CMP, URIC ####[place] [address] [place] [phone] Erythrocyte distribution width Auto Ratio (RBC) 12.4 % Normal 11.5-15.0 [facility] Comment on above: Performed By: #### I CA, CBCDIF, VITD, PTHI, CMP, URIC ####[place] [address] [place] [phone] Erythrocytes (RBC) 4.29 10*6/uL Normal 4.20-6.00 [facility] Comment on above: Performed By: #### I CA, CBCDIF, VITD, PTHI, CMP, URIC ####[place] [address]Sh[address] [place] [phone] Erythrocytes (RBC) 0.0 /100 WBC Normal 0 [facility] Comment on above: Performed By: #### I CA, CBCDIF, VITD, PTHI, CMP, URIC ####[place] [address]CC[address] [place] [phone] Erythrocytes (RBC) 10*6/uL Normal <0.01 [place] Comment on above: Performed By: #### I CA, CBCDIF, VITD, PTHI, CMP, URIC ####[place] [address] AvSh[address] [place] [phone] Hematocrit (HCT) 38.8 % Low 39.0-51.0 [facility] Comment on above: Performed By: #### I CA, CBCDIF, VITD, PTHI, CMP, URIC ####[place] [address]CC[address] [place] [phone] Hemoglobin mass conc (Bld) 12.7 g/dL Low 13.0-17.0 [facility] Comment on above: Performed By: #### I CA, CBCDIF, VITD, PTHI, CMP, URIC ####[place] [address] [place] [phone] Lymphocytes 2.16 10*3/uL Normal 1.00-4.00 [facility] Comment on above: Performed By: #### I CA, CBCDIF, VITD, PTHI, CMP, URIC ####[place] [address] [place] [phone] Lymphocytes/100 leukocytes 17.1 % Normal [facility] Comment on above: Performed By: #### I CA, CBCDIF, VITD, PTHI, CMP, URIC ####[place] [address] [place] [phone] MCH 29.6 pG Normal 26.0-34.0 [facility] Comment on above: Performed By: #### I CA, CBCDIF, VITD, PTHI, CMP, URIC ####[place] [address] [place] [phone] MCHC mass conc (RBC) 32.7 g/dL Normal 30.5-36.0 [facility] Comment on above: Performed By: #### I CA, CBCDIF, VITD, PTHI, CMP, URIC ####[place] [address] [place] [phone] MCV 90.4 fL Normal 80.0-100.0 [facility] Comment on above: Performed By: #### I CA, CBCDIF, VITD, PTHI, CMP, URIC ####[place] [address] [place] [phone] Monocytes/100 leukocytes 10.1 % Normal [facility] Comment on above: Performed By: #### I CA, CBCDIF, VITD, PTHI, CMP, URIC ####[place] [address] [place] [phone] Neutrophils/100 WBC Auto (Bld) 71.0 % Normal [facility] Comment on above: Performed By: #### I CA, CBCDIF, VITD, PTHI, CMP, URIC ####[address] [phone] Platelet mean volume (PMV) 11.3 fL Normal 9.0-12.7 [facility] Comment on above: Performed By: #### I CA, CBCDIF, VITD, PTHI, CMP, URIC ####[address] [phone] Platelets 138 10*3/uL Low 150-400 [facility] Comment on above: Result Comment: Resu lt checked and verifiedNo clot detected. Performed By: #### I CA, CBCDIF, VITD, PTHI, CMP, URIC ####[address] [phone] WBC (Leukocytes) 12.64 10*3/uL High 3.70-11.00 [facility] Comment on above: Performed By: #### I CA, CBCDIF, VITD, PTHI, CMP, URIC ####[address] [phone] CNDSon 10-13-2017 CNDS HNO ID: [id number] thor: Feliciano KumarbleService: UrologyAuthor Type: PhysicianType: Discharge SummariesFiled: 10/15/2017 3:53 PMNote Text:The [place] [phone] [facility] O N F I D E N T I A L I N F O R M A T I O N [facility] DOCUMENTDISCHARGE SUMMARYPatient Name: Darrell Silverio [...] hours for 3 days. Take 1000mg Tylenol ([id number] tablets) every 6 hours for 3 days. [...] Carlos Eduardo Dorantes MDDirector, Surgical Stone Disease, [facility] InstituteProfessor of Surgery, [facility] of MedicinePager [phone]/15/2017 [facility] PLAN OF CAREon 10-13-2017 PLAN OF CARE HNO ID: [id number] thor: Angelique Serrano (Art Objects Salesperson)Service: (none)Author Type: (none)Type: Plan of CareFiled: 10/13/2017 8:44 AMNote Text:[employer] BEDSIDE DELIVERY SURVEY1. Patient to use [facility] Bedside Delivery - NO prefer ownpharmacy2. If fax, patient would like us to fax prescriptions to [facility] a. Pharmacy: b. Location: c. Phone:3. Insurance card on file - NO4. Credit card for payment - NO Normal [facility] PROGRESSon 10-13-2017 PROGRESS HNO ID: [id number] thor: Shelly Cabrera) O'NeillService: UrologyAuthor Type: Nurse PractitionerType: Progress NotesFiled: 10/13/2017 11:00 AMNote Text:UROLOGY SERVICE PROGRESS NOTEName: Darrell CmdBed: G090 013/L767-18CCL: [id number]: October 13, 2017ASSESSMENT AND PLANMarjuan Garry Nelson is a 67 year old male with history of HTN, nephrolithiasisnow POD#2 s/p PCNL and R JJ stent placement.#Neuro-Pain controlled on Tylenol#CV/Mtga-OBL-Nci stable-Continue incentive spirometer use#GI-Diet - GI Soft/regular diet; tolerating without N/V#-Scr 0.90-UOP good-Christian: removed- voiding without difficulty#FEN-IVF NS @ 125 ml/hr#Activity - OOB to chair and Ambulate with assistance#DVT prophylaxis - SCDs, Pharmacologic DVT prophylaxis contraindicated dueto bleeding risk#Antibiotics - Perioperative antibiotics - Ancef#Secondary Dx and ComplicationsHTN- c/w home medications; [facility] Urocit HELD#Discharge teaching - routine teaching#Disposition - Discharge home todaySUBJECTIVE-Pain:controlled -CP/SOB: Denies-N/V:Denies-Bowel function:+Flatus. No BM-Ambulating: YesBrief HPI: No acute events throughout the night. Denies fever, chills.Voiding without difficulty. Doing well. Eager for discharge home.OBJECTIVEVital SignsBP 154/79 Pulse 89 Temp 36.9 ?C (98.4 ?F) (Oral) Resp 20 Ht 175.3cm (5' 9 ) Wt 80 kg (176 lb 5.9 oz) SpO2 96% BMI 26.05 kg/a7Eusfq and OutputIntake/Output Summary (Last 24 hours) at [...] mL ORAL q 6 H PRNphenol 1 [place] (CHLORASEPTIC) 1 [place] MUCOUS MEMBRANE (TOPICAL MOUTH ANDTHROAT) q 2 H PRNsimethicone, chewable 80 mg tab(s) (MYLICON) 80 mg ORAL q 8 H PRNoxybutynin 5 mg tab(s) (DITROPAN) 5 mg ORAL q 8 H PRNoxyCODONE IR 5-10 mg tab(s) (ROXICODONE) 5-10 mg ORAL q 4 H PRNNo past medical history on file.ImagingCXR 10/11/17IMPRESSION:NO ACUTE DISEASESIGNATURE: Shelly Cote, SPA DIRECTOR/FINANCE PAGER: [phone]: October 13, 2017TIME: 9:45amPlease page [phone] on weekends and after 4pm on weekdays Normal [facility] PROGRESS HNO ID: [id number] thor: Miguel (Res) BrykService: UrologyAuthor Type: ResidentType: Progress NotesFiled: 10/13/2017 6:47 AMNote Text:UROLOGY RESIDENT PROGRESS NOTEName: Darrell CmdBed: G090 013/D851-46ROV: [id number]: October 13, 2017 =====SUBJECTIVE- no acute events overnight-Pain: controlled-N/V : No- Tolerated diet, ambulating, +ROBF ======OBJECTIVEVital SignsPatient Vitals for the past 8 hrs: BP Temp Temp src Pulse Resp [id number]/13/17 0300 144/71 36.7 ?C (98 ?F) Oral [...] mL ORAL q 6 H PRNphenol 1 [place] (CHLORASEPTIC) 1 [place] MUCOUS MEMBRANE (TOPICAL MOUTH ANDTHROAT) q 2 H PRNsimethicone, chewable 80 mg tab(s) (MYLICON) 80 mg ORAL q 8 H PRNoxybutynin 5 mg tab(s) (DITROPAN) 5 mg ORAL q 8 H PRNoxyCODONE IR 5-10 mg tab(s) (ROXICODONE) 5-10 mg ORAL q 4 H PRN =====ASSESSMENT AND Celia Garry Nelson is a 67 year old male [...] staff Dr. Schroeder. ========Miguel Zapata M.D.Urology PGY-2Pager: [phone] 20176:47 AMOvernight and on weekends please page [phone] Normal [facility] APTTon 10-12-2017 aPTT 27.4 s Normal 23.0-32.4 [facility] Comment on above: Result Comment: Unfr [...] laboratory APTT reagent in use throughout the [facility]. Performed By: #### P T, PTT, MG1 ####[facility] [place] [address] [phone] Basic Metabolic Panlon 10-12 Anion gap 8 mmol/L Low 9-18 [facility] Comment on above: Performed By: #### C BCDIF, BMP ####[facility] [place], [place] [phone] Calcium 8.2 mg/dL Low 8.5-10.2 [facility] Comment on above: Performed By: #### C BCDIF, BMP ####[facility] [place], [place] [phone] Chloride 103 mmol/L Normal 97-105 [facility] Comment on above: Performed By: #### C BCDIF, BMP ####[facility] [place], [place] [phone] CO2 31 mmol/L High 22-30 [facility] Comment on above: Performed By: #### C BCDIF, BMP ####[place] [address] [place], [place] [phone] Creatinine 1.00 mg/dL Normal 0.73-1.22 [facility] Comment on above: Performed By: #### C CHARLENE CONDON ####[facility] [place], [place] [phone] eGFR (non-black) mL/min/{1.73_m2} Normal Cl [facility] Comment on above: Performed By: #### C ROSEANNA, BMP ####[facility] [place], [place] [phone] Result Comment: eGFR (Estimated GFR) Units of [...] Glucose mass conc 100 mg/dL High 74-99 [facility] Comment on above: Result Comment: The [place] Diabetes Association (ADA) provides guidance for cutoff [...] Standards of Medical Care in Diabetes 2016, [place] Diabetes Association. Diabetes Care. 2016.39(Suppl 1). Performed By: #### C ROSEANNA, BMP ####[facility] [place], [place] [phone] Potassium molar conc 4.0 mmol/L Normal 3.7-5.1 [facility] Comment on above: Performed By: #### C BCDIF, BMP ####[facility] [address] [place], [place] [phone] Sodium 142 mmol/L Normal 136-144 [facility] Comment on above: Performed By: #### C BCDIF, BMP ####[facility] [address] [place], [place] [phone] Urea nitrogen 9 mg/dL Normal 9-24 [facility] Comment on above: Performed By: #### C BCDIF, BMP ####[facility] [address] [place], [place] [phone] CASE MGT INIT ASSESon 2017 CASE MGT INIT MING HNO ID: [id number]: Brigette (Rn) EMILIANO Museervice: Care ManagementAuthor Type: Registered NurseType: Care Mgt Initial AssessmentFiled: 10/12/2017 4:00 PMNote Text:CARE MANAGEMENT: ASSESSMENT AND DISCHARGE PLANSERVICE DATE: 10/12/2017SERVICE TIME: 3:57 PMPRIMARY CARE PHYSICIAN:ROOPA Martinezhone: [phone] STATUS: Ambulatory SurgeryPOTENTIAL DISCHARGE PLANSNo Services IndicatedPatient/Manager Of Tax Stated Goals: return homeNeeds Prior to Discharge: NoneHealth Insurance: Medical [place] ServicesLiving Arrangement: HomeLives With: SpouseFinancial Resources: RetiredPrimary Contact:Extended Emergency Contact InformationPrimary Emergency Contact: Ansley NelsonAddress: [address] [place], [place] [phone] [place] [address] Stglmq Gebegzfv: SpouseSupportive: YesOther Important Patient Contacts: NoneCAREGIVER ASSESSMENT:Caregiver [...] complaint is of his christian.Please contact healthcare analyst if needs arise prior to dc.SIGNATURE: Brigette Muse RN PATIENT NAME: Darrell CmdDATE: October 12, 2017 : 3:57 PM PAGER/CONTACT #: [phone] Normal [facility] CBC and Differentialon 10-12 Abs Baso 0.03 k/uL Normal <0.11 [facility] Comment on above: Performed By: #### C BCDI, BMP ####[facility] [place], [place] [phone] Abs Otero 1.45 k/uL High <0.87 [facility] Comment on above: Performed By: #### C ROSEANNA, BMP ####[place] [address] [place] [phone] Abs Neut 9.96 k/uL High 1.45-7.50 [facility] Comment on above: Performed By: #### C ROSEANNA, BMP ####[place] [address] [place] [phone] Basophils/100 WBC Auto (Bld) 0.2 % Normal [facility] Comment on above: Performed By: #### C ROSEANNA, BMP ####[place] [address] [place] [phone] DTYPE Auto Diff Normal [facility] Comment on above: Performed By: #### C ROSEANNA, BMP ####[place] [address] [place] [phone] Eosinophils 0.06 10*3/uL Normal <0.46 [facility] Comment on above: Performed By: #### C ROSEANNA, BMP ####[place] [address] [address] [place] [phone] Eosinophils/100 leukocytes 0.4 % Normal [facility] Comment on above: Performed By: #### C ROSEANNA, BMP ####[place] [address] [address] [place] [phone] Erythrocyte distribution width Auto Ratio (RBC) 12.6 % Normal 11.5-15.0 [facility] Comment on above: Performed By: #### C ROSEANNA, BMP ####[place] [address] [address]CT[address], [place] [phone] Erythrocytes (RBC) 0.0 /100 WBC Normal 0 [facility] Comment on above: Performed By: #### C ROSEANNA, BMP ####[place] [address] [address] [place] [phone] Erythrocytes (RBC) 3.97 10*6/uL Low 4.20-6.00 [facility] Comment on above: Performed By: #### C BCDIF, BMP ####[place] [address] AveClevelDahl[place], [place] [phone] Erythrocytes (RBC) 10*6/uL Normal <0.01 [place] Comment on above: Performed By: #### C BCDIF, BMP ####[place] [address] AveClevelDahl[place], [place] [phone] Hematocrit (HCT) 35.9 % Low 39.0-51.0 [facility] Comment on above: Performed By: #### C BCDIF, BMP ####[place] [address] [address] [place] [phone] Hemoglobin mass conc (Bld) 11.9 g/dL Low 13.0-17.0 [facility] Comment on above: Performed By: #### C BCDIF, BMP ####[place] [address] [address] [place] [phone] Lymphocytes 2.91 10*3/uL Normal 1.00-4.00 [facility] Comment on above: Performed By: #### C BCDIF, BMP ####[place] [address] [address] [place] [phone] Lymphocytes/100 leukocytes 20.2 % Normal [facility] Comment on above: Performed By: #### C BCDIF, BMP ####[facility], [place] [phone] MCH 30.0 pG Normal 26.0-34.0 [facility] Comment on above: Performed By: #### C BCDIF, BMP ####[place] [address] [address], [place] [phone] MCHC mass conc (RBC) 33.1 g/dL Normal 30.5-36.0 [facility] Comment on above: Performed By: #### C BCDIF, BMP ####[address] [place], [place] [phone] MCV 90.4 fL Normal 80.0-100.0 [facility] Comment on above: Performed By: #### C BCDIF, BMP ####[address], [place] [phone] Monocytes/100 leukocytes 10.1 % Normal [facility] Comment on above: Performed By: #### C BCDIF, BMP ####[address] [phone] Neutrophils/100 WBC Auto (Bld) 69.1 % Normal [facility] Comment on above: Performed By: #### C BCJUANF, BMP ####[address] [phone] Platelet mean volume (PMV) 11.2 fL Normal 9.0-12.7 [facility] Comment on above: Performed By: #### C KRISTINAF, BMP ####[address] [phone] Platelets 124 10*3/uL Low 150-400 [facility] Comment on above: Result Comment: Resu lt checked and verifiedNo clot detected. Performed By: #### C BCDIF, BMP ####[address] [phone] WBC (Leukocytes) 14.41 10*3/uL High 3.70-11.00 [facility] Comment on above: Performed By: #### C BCDIF, BMP ####[address] [phone] Magnesiumon 10-12-2017 Magnesium 1.7 mg/dL Normal 1.7-2.3 [facility] Comment on above: Performed By: #### P T, PTT, MG1 ####[facility] [address] [place], [place] [phone] PROGRESSon 10-12-2017 PROGRESS HNO ID: [id number] thor: Feliciano Santanaervice: (none)Author Type: PhysicianType: Progress NotesFiled: 10/12/2017 1:40 PMNote Text:STAFF UROLOGY NOTE:Patient's Hb dropped nearly 2 grams post-op and his urine was too bloodythis morning for voiding trial or discharge. Will plan to keep in houseanother day.Feliciano Schroeder, MDDirector, Surgical Stone Disease, [facility]rologic InstituteProfessor of Surgery, [facility] County HospitalPager Normal [facility] PROGRESS HNO ID: [id number] thor: Shelly (Classification Counselor) O'NeillService: UrologyAuthor Type: Nurse PractitionerType: Progress NotesFiled: 10/12/2017 1:31 PMNote Text:UROLOGY SERVICE PROGRESS NOTEName: Darrell CmdBed: G090 013/R977-78BSR: [id number]: October 12, 2017ASSESSMENT AND PLANGloriajuan Nelson is a 67 year old male with history of HTN, nephrolithiasisnow POD#1 s/p PCNL and R JJ stent placement.#Neuro-Pain controlled on Tylenol#CV/Tvss-TXI-Zls stable#GI-Diet - GI Soft/regular diet; tolerating without N/V+Flatus. No BM.#-Scr 1.00-UOP good-Christian: draining washroom cleaner red urine#FEN-IVF NS @ 125 ml/hr#Activity - [...] lb 5.9 oz) SpO2 95% BMI 26.05 kg/y6Voeaa and OutputIntake/Output Summary (Last 24 hours) at 10/12/17 1302Last data filed at 10/12/17 1000 Gross per 24 hourIntake 4023 mlOutput 1975 mlNet 2048 mlDrains:NoneUrine: 1625ccPhysical ExamGeneral: Well appearing male in NADHEENT: Normocephalic, atraumaticCV:: RRR, hemodynamically stable, well-perfusedResp: breathing comfortably on RA.GI: Soft, nontender, nondistended.: Christian catheter draining washroom cleaner red urineExtremities: No cyanosis or clubbing, No [...] mL ORAL q 6 H PRNphenol 1 [place] (CHLORASEPTIC) 1 [place] MUCOUS MEMBRANE (TOPICAL MOUTH ANDTHROAT) q 2 H PRNsimethicone, chewable 80 mg tab(s) (MYLICON) 80 mg ORAL q 8 H PRNoxybutynin 5 mg tab(s) (DITROPAN) 5 mg ORAL q 8 H PRNoxyCODONE IR 5-10 mg tab(s) (ROXICODONE) 5-10 mg ORAL q 4 H PRNNo past medical history on file.ImagingXR 10/11/17IMPRESSION:NO ACUTE DISEASESIGNATURE: Shelly Cote CNP PAGER: [phone]: October 12, 2017TIME: 11:15amPlease page [phone] on weekends and after 4pm on weekdays Normal [facility] PROGRESS HNO ID: [id number] thor: Miguel (Res) BrykService: UrologyAuthor Type: ResidentType: Progress NotesFiled: 10/12/2017 6:47 AMNote Text:UROLOGY RESIDENT PROGRESS NOTEName: Darrell Handley BoydBed: G090 013/M706-17AAZ: [id number]: October 12, 2017 =====SUBJECTIVE- no acute events overnight-Pain: controlled-N/V : No- Tolerated clears, eager for food =====OBJECTIVEVital SignsPatient Vitals for the past 8 hrs: BP Temp Temp src Pulse Resp SpO2 Height Nrmxit86/10/18 1922 148/81 36.7 ?C (98.1 ?F) Oral [...] mL ORAL q 6 H PRNphenol 1 [place] (CHLORASEPTIC) 1 [place] MUCOUS MEMBRANE (TOPICAL MOUTH ANDTHROAT) q 2 H PRNsimethicone, chewable 80 mg tab(s) (MYLICON) 80 mg ORAL q 8 H PRNoxybutynin 5 mg tab(s) (DITROPAN) 5 mg ORAL q 8 H PRNoxyCODONE IR 5-10 mg tab(s) (ROXICODONE) 5-10 mg ORAL q 4 H PRN =====ASSESSMENT AND Celia Garry Nelson is a 67 year old male [...] staff Dr. Schroeder. ========Miguel Zapata M.D.Urology PGY-2Pager: [phone] 2017Overnight and on weekends please page [phone] Normal [facility] Protimeon 10-12-2017 INR Coag RelTime (Bld) 1.0 {INR} Normal 0.9-1.3 [facility] Comment on above: Result Comment: Laisha min K Antagonist (VKA) Therapeutic Range: INR 2 to 3 (Target INR of 2.5)Note: For patients treated with VKA drugs, such as warfarin, the [place] [employer] 2012 Guideline recommends [...] al. Chest 2012, 141:7S-47SNishimgia RA, et al. [facility] 2017, 70: 252-289 Performed By: #### P T, PTT, MG1 ####[facility] [place], [place] [phone] PT Sec 10.8 sec Normal 9.7-13.0 [facility] Comment on above: Performed By: #### P T, PTT, MG1 ####[facility] [address] [place], [place] [phone] ANES Woody 10-11-2017 ANES POST HNO ID: [id number] thor: Teresita Thomas: AnesthesiologyAuthor Type: PhysicianType: Anesthesia PostOpFiled: 10/11/2017 4:08 [...] 11, 2017 : 4:07 PM PAGER/CONTACT #: [phone] [facility] BRIEF OP NOTon 10-11-2017 BRIEF OP NOT HNO ID: [id number] thor: Miguel Gillespieervice: UrologyAuthor Type: ResidentType: Brief Op NoteFiled: 10/11/2017 3:17 PMNote Text:UROLOGY BRIEF OPERATIVE NOTELOG ID: [id number]/Procedure Date: 10/11/2017Incision/Procedure Start Time: 1:38 PMIncision Close/Procedure [...] 30 FrenchTract Dilation Device: BalloonSurgeon(s)/Proceduralist (s) and Cutting And Boning Supervisor(s):Surgeon(s) and Role: * Feliciano Schroeder - Primary * Miguel Zapata - Resident - Assisting * Damon Garcias (Fel) - FellowNo Additional StaffAnesthesia: GeneralFLUIDSIntake: 1200ccUrine Output: n/a, irrigationEstimated Blood Loss: 50 mlsAccidental punctures or Lacerations: noneComplications: NoneDrains: Christian, 20fr coude tipImplants: 3edi61du JJ ureteral stentCultures: NoneFindings: Soft stones in R Renal pelvis and R lower pole (>3cm). Lowerpole access. Stone free at end of the case.Specimens:Specimen ID Type Site Comments Sent Toother Stone stones sent to PACU with patient OtherPost-Op Plan of Care:To RNFSIGNATURE: Miguel Zapata MD PATIENT NAME: Darrell ElizaldeATE: October 11, 2017 : 3:11 PM PAGER/CONTACT #: [phone] after hours issues, please call the on-call urology pager [phone] Normal [facility] CBC and Differentialon 10-11 Abs Baso 0.03 k/uL Normal <0.11 [facility] Comment on above: Performed By: #### C BCDIF ####[place] [address] [address]CT[address], [place] [phone] Abs Otero 1.18 k/uL High <0.87 [facility] Comment on above: Performed By: #### C BCDIF ####[place] [address] [address] Av[place] [phone] Abs Neut 12.38 k/uL High 1.45-7.50 [facility] Comment on above: Performed By: #### C BCDIF ####[place] [address] [address]CT[address], [place] [phone] Basophils/100 WBC Auto (Bld) 0.2 % Normal [facility] Comment on above: Performed By: #### C BCDIF ####[place] [address] [address], [place] [phone] DTYPE Auto Diff Normal [facility] Comment on above: Performed By: #### C BCDIF ####[place] [address] [address]CT[address], [place] [phone] Eosinophils 0.06 10*3/uL Normal <0.46 [facility] Comment on above: Performed By: #### C BCDIF ####[place] [address] [address], [place] [phone] Eosinophils/100 leukocytes 0.4 % Normal [facility] Comment on above: Performed By: #### C BCDIF ####[place] [address] [address], [place] [phone] Erythrocyte distribution width Auto Ratio (RBC) 12.4 % Normal 11.5-15.0 [facility] Comment on above: Performed By: #### C BCDIF ####[place] [address] [address], [place] [phone] Erythrocytes (RBC) 0.0 /100 WBC Normal 0 [facility] Comment on above: Performed By: #### C BCDIF ####[place] [address] [address], [place] [phone] Erythrocytes (RBC) 10*6/uL Normal <0.01 [place] Comment on above: Performed By: #### C BCDIF ####[place] [phone] Erythrocytes (RBC) 4.42 10*6/uL Normal 4.20-6.00 [facility] Comment on above: Performed By: #### C BCDIF ####[address] [phone] Hematocrit (HCT) 39.7 % Normal 39.0-51.0 [facility] Comment on above: Performed By: #### C BCDIF ####[place] [address] [address], [place] [phone] Hemoglobin mass conc (Bld) 13.7 g/dL Normal 13.0-17.0 [facility] Comment on above: Performed By: #### C BCDIF ####[place] [address] [address] [place], [place] [phone] Lymphocytes 2.81 10*3/uL Normal 1.00-4.00 [facility] Comment on above: Performed By: #### C BCDIF ####[address] [place] [phone] Lymphocytes/100 leukocytes 17.1 % Normal [facility] Comment on above: Performed By: #### C BCDIF ####[address], [place] [phone] MCH 31.0 pG Normal 26.0-34.0 [facility] Comment on above: Performed By: #### C BCDIF ####[address] [phone] MCHC mass conc (RBC) 34.5 g/dL Normal 30.5-36.0 [facility] Comment on above: Performed By: #### C BCDIF ####[address] [phone] MCV 89.8 fL Normal 80.0-100.0 [facility] Comment on above: Performed By: #### C BCDIF ####[address], [place] [phone] Monocytes/100 leukocytes 7.2 % Normal [facility] Comment on above: Performed By: #### C BCDIF ####[address] [phone] Neutrophils/100 WBC Auto (Bld) 75.1 % Normal [facility] Comment on above: Performed By: #### C BCDIF ####[address] [phone] Platelet mean volume (PMV) 11.3 fL Normal 9.0-12.7 [facility] Comment on above: Performed By: #### C BCDIF ####[address] [phone] Platelets 147 10*3/uL Low 150-400 [facility] Comment on above: Performed By: #### C BCDIF ####[address], [place] [phone] WBC (Leukocytes) 16.46 10*3/uL High 3.70-11.00 [facility] Comment on above: Performed By: #### C BCDIF ####[facility] [place], [place] [phone] Calculi Analysison 8 Calculus Type stone Normal [facility] Comment on above: Performed By: #### I CA, CBCDIF, VITD, PTHI, CMP, URIC ####[facility] [address] [place], [place] [phone] Note (NOTE) Normal [facility] Comment on above: Result Comment: Calc ulus Color: OFF WHITECalculus Size & Weight: MULTIPLE PIECES, 0.5788 GRAMSComposition: CALCIUM PHOSPHATE - 60% CALCIUM OXALATE MONOHYDRATE - 30% MINOR COMPONENTS - 10%This test was developed and its performance characteristicsdetermined by the [facility] Pathology andLaboratory Medicine [place] ([facility]).It has not been cleared or approved by the FDA.[facility] is regulated under CLIA as qualified to performhigh-complexity testing.This test is used for clinical purposes. It should not be regarded asinvestigational or for research. Performed By: #### I CA, CBCDIF, VITD, PTHI, CMP, URIC ####[facility] [address] [place], [place] [phone] NURSING PROGon 10-11-2017 NURSING PROG HNO ID: [id number] thor: Melita (Rn) Vincenzo, RNService: (none)Author Type: Registered NurseType: Nursing Progress NoteFiled: 10/11/2017 8:01 PMNote Text:Admission/Transfer NotePATIENT NAME: Darrell CmdMRN: [id number] admitted from PACU via stretcher in stable condition.Actions taken: Patient oriented to room, call light function, prescribedactivities, Patient rights and Quiet at night.This note was completed by: Melita Loya RN Normal [facility] NURSING PROG HNO ID: [id number] thor: May Collins (Rn) EMILIANO Moffettervice: NursingAuthor Type: Registered NurseType: Nursing Progress NoteFiled: 10/11/2017 10:50 AMNote Text:PRE OP LEARNING ASSESSMENTPROCEDURE/SURGERY: SURGERY: PreopREADINESS TO LEARN: InterestedCOGNITIVE ABILITY: Alert and orientedMOTIVATION TO LEARN: EagerFAMILY SUPPORT: High - Very involved in pt carePATIENT LEARNS BEST BY: Multiple MethodsFACTORS AFFECTING LEARNING: NonePHYSICAL LIMITATIONS AFFECTING LEARNING: NoneElectronically Signed By: May Moffett RN In Department: HOSPCTIN M023 [facility] OPERATIVE NOon 10-11-2017 OPERATIVE NO HNO ID: [id number] thor: Feliciano Santanaervice: UrologyAuthor Type: PhysicianType: Operative ReportFiled: 10/12/2017 9:11 AMNote Text:OPERATIVE/PROCEDURE REPORTLOG ID: [id number]/Procedure Date: 10/11/2017Incision/Procedure Start Time: 1:38 PMIncision Close/Procedure End Time: 3:13 PMSurgeon(s)/Proceduralist(s) and Cutting And Boning Supervisor(s):Surgeon(s) and Role: * Feliciano Schroeder - Primary [...] and draped in the standard sterile fashion.First railroad car truck builder images were obtained noting two opacities in [...] pulled out through theurethral meatus to gain rydadex-org-mnondng access.A glide catheter was used to exchange the zybtkvr-kls-fykiyen guidewirefor an Amplatz superstiff wire. The ureteroscope was re-inserted to theaccessed calyx. An 8/10 Fr dilator was then used to gently dilate thetract. The tract was incised at the skin for 10 mm. The [employer] X-Forceballoon was advanced over the wire and [...] Garcias and Dr. Zapata.Miguel Zapata M.D.Urology PGY-2Pager: [phone] [phone] PMOvernight and on weekends please page [phone] Meño Schroederor, Surgical Stone Disease, [facility]rolog[facility] InstituteProfessor of Surgery, [facility] HospitalPager [phone]/12/2017 Normal [facility] PROGRESSon 10-11-2017 PROGRESS HNO ID: [id number] thor: Tyler (Res) Rick Meridarvice: Pediatric UrologyAuthor [...] mL ORAL q 6 H PRNphenol 1 [place] (CHLORASEPTIC) 1 [place] MUCOUS MEMBRANE (TOPICAL MOUTH ANDTHROAT) q 2 [...] lb 5.9 oz) SpO2 99% BMI 26.05 kg/l0SLQGNVAD EXAM:GENERAL: no distressNEURO: KALHKs5WCDAV: breathing comfortably on 2LCARDIAC: warm and well perfused throughoutABDOMEN: soft, mild distended, non tender.WOUND: CDIGU: Christian catheter present, red urine no clotsLABSCBC, Coags, BMP, Mg, PhosRecent Labs WBC 16.46*HB 13.7HCT 39.7PLT 147*A/P:Darrell Nelson is a [...] routine teachingDischarge planning - pendingTyler [place] [phone] Normal [facility] PT EDon 10-11-2017 PT ED HNO ID: [id number] thor: Ccf ProviderService: (none)Author Type: PhysicianType: Patient EducationFiled: 10/11/2017 7:15 PMNote Text:German HospitalPatient Education Report Name: DARRELL NELSON Date: 10/11/2017 Time: 7:15 PMPatient Ordered Video: Inpatient Fallsfrom [id number] via phone number [phone] at 7:15 PM Normal [facility] XR CHEST 1V FRONTAL PORTon 0 [...] ORDOÑEZ MD on Oct 11 2017 4:13PM [id number] Normal [facility] CNCOon 10-05-2017 CNCO Letter Text/12/2017M teresa Cmd[address] [id number] Mr. Nelson:Your recent 24 hour urine test [...] for future kidney stones. You may contact [facility] [phone] with any questions or concerns.Sincerely,Feliciano Schroeder M.D.ELECTRONICALLY SIGNED Normal [facility] CBC and Differentialon 09-12 Abs Baso 0.04 k/uL Normal <0.11 [facility] Comment on above: Performed By: #### I CA, CBCDIF, VITD, PTHI, CMP, URIC ####[place] [address] [address]CHeather [place] [phone] Abs Otero 1.26 k/uL High <0.87 [facility] Comment on above: Performed By: #### I CA, CBCDIF, VITD, PTHI, CMP, URIC ####[place] [address] [address] [place] [phone] Abs Neut 6.39 k/uL Normal 1.45-7.50 [facility] Comment on above: Performed By: #### I CA, CBCDIF, VITD, PTHI, CMP, URIC ####[place] [address] [place] [phone] Basophils/100 WBC Auto (Bld) 0.3 % Normal [facility] Comment on above: Performed By: #### I CA, CBCDIF, VITD, PTHI, CMP, URIC ####[place] [address] [address] Av[place] [phone] DTYPE Auto Diff Normal [facility] Comment on above: Performed By: #### I CA, CBCDIF, VITD, PTHI, CMP, URIC ####[place] [address] [place] [phone] Eosinophils 0.10 10*3/uL Normal <0.46 [facility] Comment on above: Performed By: #### I CA, CBCDIF, VITD, PTHI, CMP, URIC ####[place] [address]level[address] [place] [phone] Eosinophils/100 leukocytes 0.9 % Normal [facility] Comment on above: Performed By: #### I CA, CBCDIF, VITD, PTHI, CMP, URIC ####[place] [address]level[address] [place] [phone] Erythrocyte distribution width Auto Ratio (RBC) 12.9 % Normal 11.5-15.0 [facility] Comment on above: Performed By: #### I CA, CBCDIF, VITD, PTHI, CMP, URIC ####[place] [address] [address] [place] [phone] Erythrocytes (RBC) 0.0 /100 WBC Normal 0 [facility] Comment on above: Performed By: #### I CA, CBCDIF, VITD, PTHI, CMP, URIC ####[place] [address] [address] [place] [phone] Erythrocytes (RBC) 4.74 10*6/uL Normal 4.20-6.00 [facility] Comment on above: Performed By: #### I CA, CBCDIF, VITD, PTHI, CMP, URIC ####[place] [address] [address] [place] [phone] Erythrocytes (RBC) 10*6/uL Normal <0.01 [place] Comment on above: Performed By: #### I CA, CBCDIF, VITD, PTHI, CMP, URIC ####[place] [address] [place] [phone] Hematocrit (HCT) 43.7 % Normal 39.0-51.0 [facility] Comment on above: Performed By: #### I CA, CBCDIF, VITD, PTHI, CMP, URIC ####[place] [address] AveClevelRobert [place] [phone] Hemoglobin mass conc (Bld) 14.2 g/dL Normal 13.0-17.0 [facility] Comment on above: Performed By: #### I CA, CBCDIF, VITD, PTHI, CMP, URIC ####[place] [address] [address] [place] [phone] Lymphocytes 3.64 10*3/uL Normal 1.00-4.00 [facility] Comment on above: Performed By: #### I CA, CBCDIF, VITD, PTHI, CMP, URIC ####[place] [address] [address] [place] [phone] Lymphocytes/100 leukocytes 31.8 % Normal [facility] Comment on above: Performed By: #### I CA, CBCDIF, VITD, PTHI, CMP, URIC ####[address] [place] [phone] MCH 30.0 pG Normal 26.0-34.0 [facility] Comment on above: Performed By: #### I CA, CBCDIF, VITD, PTHI, CMP, URIC ####[place] [address] [place] [phone] MCHC mass conc (RBC) 32.5 g/dL Normal 30.5-36.0 [facility] Comment on above: Performed By: #### I CA, CBCDIF, VITD, PTHI, CMP, URIC ####[place] [address] [place] [phone] MCV 92.2 fL Normal 80.0-100.0 [facility] Comment on above: Performed By: #### I CA, CBCDIF, VITD, PTHI, CMP, URIC ####[place] [address] [address] [place] [phone] Monocytes/100 leukocytes 11.0 % Normal [facility] Comment on above: Performed By: #### I CA, CBCDIF, VITD, PTHI, CMP, URIC ####[place] [address] [address], [place] [phone] Neutrophils/100 WBC Auto (Bld) 56.0 % Normal [facility] Comment on above: Performed By: #### I CA, CBCDIF, VITD, PTHI, CMP, URIC ####[address] [phone] Platelet mean volume (PMV) 11.2 fL Normal 9.0-12.7 [facility] Comment on above: Performed By: #### I CA, CBCDIF, VITD, PTHI, CMP, URIC ####[address] [phone] Platelets 206 10*3/uL Normal 150-400 [facility] Comment on above: Performed By: #### I CA, CBCDIF, VITD, PTHI, CMP, URIC ####[address] [phone] WBC (Leukocytes) 11.43 10*3/uL High 3.70-11.00 [facility] Comment on above: Performed By: #### I CA, CBCDIF, VITD, PTHI, CMP, URIC ####[address] [phone] OSMANOVdonato 09-12-2017 CNOV Office Visit (UROMEMO) DARRELL NELSON ([id number]) 1950 [facility] Time Provider Xvxfyahnnk72/12/17 10:30 AM FELICIANO SCHROEDER During your visit [...] Urine Negative NegativeKetones, Urine Negative 1+ (A)Specific [place], Ur 1.005 - 1.030 1.016Hemoglobin/Blood,Ur Negative 2+ [...] with more than 50% of the total clbl-ep-dzcx time ofthe visit devoted to patient counseling/coordination of care.Feliciano Schroeder, MDDirector, Surgical Stone Disease, [facility]rologic InstituteProfessor of Surgery, [facility] County HospitalPager [phone]/12/2017Bonita Saenzcam ROGER 09/12/2017 7:38 PM SignedUROLOGY SURGICAL HANDamp;PSERVICE DATE: 09/12/2017REFERRING PROVIDER: Cleveland Llanes MD[address] [facility] [address]PGI: No PcpGENDER:SUBJECTIVECHIEF COMPLAINT: Pre-op examHISTORY OF PRESENT [...] symtoms or problems.No history of angina, CHF, IN, cardiac surgery of stents.Respiratory: Negative for current cough, dyspnea. No hx of pneumonia in thepast six weeksPositive: PND, sinus drainage from allergiesGastrointestinal: No history of GERD, PUD, abd pain, difficulty swallowing, GIbleed.Renal: +stonesMusculoskeletal: Negative for joint pain or swelling, back pain or muscle pain.Skin: Negative for lesions, rash and itching.Psychological: No history of psychiatric symptoms or problems.Neurologic: No history of TIA's, stroke, SCRAP CRUSHER tumor, impaired sensorium,hemiplegia, paraplegia or quadriplegia. No [...] 10ANDquot;) Wt 79.4 kg (175 lb) BMI25.11 kg/v8Rcqcjpowbyl Max: @TMAXREFRESH(24)@ALLERGIES:ISIS SORENNo Known AllergiesLABS:No results found for: BUNNo results found for: CREATNo results found for: PSAGlucose, Urine (mg/dL)Date Value09/12/2017 Negative Bilirubin, Urine (no units)Date Value09/12/2017 Negative Ketones, Urine (no units)Date Value09/12/2017 1+ (A) Specific [place], Ur (no units)Date Value09/12/2017 1.016 Hemoglobin/Blood ,Ur [...] Calculus, kidney (primary encounter diagnosis)N20.1 Calculus of euwncfL54.9 Right flank painI10 Essential caaumjzghtafF10.1 Family history of wzfzrhfqwybbcozN03.49 Family history of uotazdhewkeajmkxjmmM72.9 Low vitamin D gwzisX09.90 Abnormal urinalysisGLICKMAN UROLOGICAL AND KIDNEY INSTITUTEPRE-OP NOTEDate [...] YesURINE CULTURE COMPLETE?: YesIMPACT/Medical Clearance: Cleared per SUNDAY - NoPJORGE Clinic: Cleared per ARAMIS Boyd testing on [...] 11:45 AM PAGER/CONTACT #:Referring Provider: CLEVELAND LLANES [[id number]]Allergies As of Date: 09/12/2017(No Known Allergies)Date Reviewed: 09/12/2017Reviewed by: Az Ann MA - Fully AssessedPrimary Visit Diagnosis:Calculus, kidney [N20.0] Other Visit Diagnoses:Calculus of ureter [N20.1] Right flank pain [R10.9] Essential hypertension [I10] Family history of nephrolithiasis [Z84.1] Family history of hyperparathyroidism [Z83.49] Low vitamin D level [E55.9] Abnormal urinalysis [R82.90]Order(s):UA CHEMSTRIP ONLY [SQUA] Order #: [id number] FUTURE UA CHEMSTRIP ONLY [SQUA] Order #: [id number]. #:[id number] VITAMIN D 25 HYDROXY [SQVITD] Order #: [id number] FUTURE CBC + DIFF [SQCBCDIF] Order #: [id number] FUTURE COMP METABOLIC PANEL [SQCMP] Order #: [id number] FUTURE PTH INTACT BLD [SQPTHI] Order #: [id number] FUTURE URIC ACID BLOOD [SQURIC] Order #: [id number] FUTURE TYPE + SCREEN,30 DAY [NTJHXY52] Order #: [id number] FUTURE CONFIRM BLOOD TYPE [SQCONABO] Order #: [id number] FUTURE ECG COMPLETE W INTERPRETATION [ECG01] Order #: [id number] FUTURE [facility] [7210781] Order #: [id number] CALCIUM IONIZED B [SQICA] Order #: [id number] FUTURE URINE CULTURE [SQURCUL] Order #: [id number]. #:[id number] iptions as of 09/12/2017 Sig: MULTIVITAMIN TABLET [...] Az Ann MA 09/12/2017 10:20 AM >> ZA ANN MA Sep 12, 2017 10:20 AM [...] Az Ann MA 09/12/2017 10:20 AM >> CASPER ANN MAELLE Reyna Sep 12, 2017 10:20 AM Received from: [...] Disposition History RecordedLetter TextDecember 2016Cleveland Llanes MD[address] [facility] [place] [address]UBPM: Katherine Nelson NO: [id number] OF SERVICE: 09/12/2017Dear Dr. Llanes,I recently saw your patient, Mr. Nelson, in the [facility] [place],[facility].Enclosed is a copy of my clinic note which should be self-explanatoryregarding findings, recommendations, and treatment plan. Please don'thesitate to contact me if there are questions.Sincerely,Feliciano Schroeder M.D.Staff Urologist, [facility] [place] CompanyELECTRONICALLY SIGNEDcc: Abigail Sanchez M.D., [address] [place] [address]Zqumnsnux Number: [id number] Status:Closed by FELICIANO SCHROEDER MD on 09/12/17 Normal [facility] Calcium, Ionizedon 7 Calcium 1.14 mmol/L Normal 1.08-1.30 [facility] Comment on above: Performed By: #### I CA, CBCDIF, VITD, PTHI, CMP, URIC ####[facility] [place] [phone] Calcium, Ionized 1.20 mmol/L Normal 1.08-1.30 [facility] Comment on above: Performed By: #### I CA, CBCDIF, VITD, PTHI, CMP, URIC ####[place] [address] [address] [phone] Comp Metabolic Panel 09-12 Alanine aminotransferase (ALT) 43 U/L Normal 10-54 [facility] Comment on above: Performed By: #### I CA, CBCDIF, VITD, PTHI, CMP, URIC ####[place] [address] [address] [phone] Albumin 3.8 g/dL Low 3.9-4.9 [facility] Comment on above: Performed By: #### I CA, CBCDIF, VITD, PTHI, CMP, URIC ####[place] [address] [address] [phone] Alkaline phosphatase (ALP) 98 U/L Normal 36-108 [facility] Comment on above: Performed By: #### I CA, CBCDIF, VITD, PTHI, CMP, URIC ####[place] [address] [address] [phone] Anion gap 15 mmol/L Normal 9-18 [facility] Comment on above: Performed By: #### I CA, CBCDIF, VITD, PTHI, CMP, URIC ####[place] [address] [place] [phone] Aspartate aminotransferase (AST) 40 U/L Normal 14-40 [facility] Comment on above: Performed By: #### I CA, CBCDIF, VITD, PTHI, CMP, URIC ####[place] [address] [address] [phone] Bilirubin (total) 0.5 mg/dL Normal 0.2-1.3 [facility] Comment on above: Performed By: #### I CA, CBCDIF, VITD, PTHI, CMP, URIC ####[place] [address] [address] [phone] Calcium 9.3 mg/dL Normal 8.5-10.2 [facility] Comment on above: Performed By: #### I CA, CBCDIF, VITD, PTHI, CMP, URIC ####[place] [address] [phone] Chloride 100 mmol/L Normal 97-105 [facility] Comment on above: Performed By: #### I CA, CBCDIF, VITD, PTHI, CMP, URIC ####[place] [address] [address] [phone] CO2 26 mmol/L Normal 22-30 [facility] Comment on above: Performed By: #### I CA, CBCDIF, VITD, PTHI, CMP, URIC ####[place] [address] [address] [phone] Creatinine 1.05 mg/dL Normal 0.73-1.22 [facility] Comment on above: Performed By: #### I CA, CBCDIF, VITD, PTHI, CMP, URIC ####[place] [address] [address] [place] [phone] eGFR (non-black) mL/min/{1.73_m2} Normal [facility] Comment on above: Performed By: #### I CA, CBCDIF, VITD, PTHI, CMP, URIC ####[place] [address] [address] [place] [phone] Result Comment: eGFR (Estimated GFR) Units of [...] Glucose mass conc 92 mg/dL Normal 74-99 [facility] Comment on above: Result Comment: The [place] Diabetes Association (ADA) provides guidance for cutoff [...] Standards of Medical Care in Diabetes 2016, [place] Diabetes Association. Diabetes Care. 2016.39(Suppl 1). Performed By: #### I CA, CBCDIF, VITD, PTHI, CMP, URIC ####[facility] [place], [place] [phone] Potassium molar conc 4.0 mmol/L Normal 3.7-5.1 [facility] Comment on above: Performed By: #### I CA, CBCDIF, VITD, PTHI, CMP, URIC ####[facility]Com[address], [place] [phone] Protein 7.5 g/dL Normal 6.3-8.0 [facility] Comment on above: Performed By: #### I CA, CBCDIF, VITD, PTHI, CMP, URIC ####[facility] AveCTulsa, [place] [phone] Sodium 141 mmol/L Normal 136-144 [facility] Comment on above: Performed By: #### I CA, CBCDIF, VITD, PTHI, CMP, URIC ####[facility] Paadgvmpxmxn[address] AveCadena regional medical centerand, [place] [phone] Urea nitrogen 10 mg/dL Normal 9-24 [facility] Comment on above: Performed By: #### I CA, CBCDIF, VITD, PTHI, CMP, URIC ####[facility] [place], [place] [phone] Confirm Blood Typeon 017 ABO/RH(D) Positive Normal [facility] Comment on above: Performed By: #### C ONABO ####[facility] [place], [place] [phone] HISTORY PHYSICALon 7 HISTORY PHYSICAL HNO ID: [id number] thor: [place]ita ([facility]) DigennaroService: (none)Author Type: Nurse PractitionerType: HANDPFiled: 09/12/2017 7:38 PMNote Text:UROLOGY SURGICAL HANDPSERVICE DATE: 09/12/2017REFERRING PROVIDER: Cleveland Llanes MD[address] [facility] [address]RSK: No PcpGENDER:SUBJECTIVECHIEF COMPLAINT: Pre-op examHISTORY OF PRESENT [...] symtoms or problems.No history of angina, CHF, [place], cardiac surgery of stents.Respiratory: Negative for current cough, dyspnea. No hx of pneumonia inthe past six weeksPositive: PND, sinus drainage from allergiesGastrointestinal: No history of GERD, PUD, abd pain, difficultyswallowing, GI bleed.Renal: +stonesMusculoskeletal: Negative for joint pain or swelling, back pain or musclepain.Skin: Negative for lesions, rash and itching.Psychological: No history of psychiatric symptoms or problems.Neurologic: No history of TIA's, stroke, SCRAP CRUSHER tumor, impaired sensorium,hemiplegia, paraplegia or quadriplegia. No [...] ) Wt 79.4 kg (175 lb) BMI25.11 kg/t6Gvejdbgqotq Max: @TMAXREFRESH(24)@ALLERGIES:ISIS RGIESNo Known AllergiesLABS:No results found for: BUNNo results found for: CREATNo results found for: PSAGlucose, Urine (mg/dL)Date Value09/12/2017 Negative Bilirubin, Urine (no units)Date Value09/12/2017 Negative Ketones, Urine (no units)Date Value09/12/2017 1+ (A) Specific [place], Ur (no units)Date Value09/12/2017 1.016 Hemoglobin/Blood ,Ur [...] Calculus, kidney (primary encounter diagnosis)N20.1 Calculus of dgmzovO55.9 Right flank painI10 Essential zotfqeopmlyuX22.1 Family history of bshlgbsvvqpizduU34.49 Family history of qbxsxidonmulmrscflvP53.9 Low vitamin D ilhubW77.90 Abnormal urinalysisGLICKFLAT ROCK UROLOGICAL AND KIDNEY INSTITUTEPRE-OP NOTEDate of Procedure: [...] #: Dong [facility] 09-12-2017 HOSP Patient Update ([facility]) DARRELL NELSON ([id number]) 1950 MDate Time Provider Hnmnavrrrg64/12/17 ASHTYN RABAGO (RN) [facility] During your visit today, we recorded the following information about you:Allergies As of Date: 09/12/2017(No Known Allergies)Date Reviewed: 09/12/2017Reviewed by: Az Ann MA - Fully AssessedOrder(s):SURGICAL REQUEST - ELECTIVE [[id number]] Order #: [id number]: 1Prescriptions as of 09/12/2017 Sig: POTASSIUM CITRATE [...] FOR* More...Follow-up and Disposition History RecordedEncounter Number: [id number] Status:Closed by ASHTYN RABAGO on 09/12/17 [facility] Patient:Darrell Nelson LMRN: Height:5' 10 (1.778 m)Weight:175 lb (79.379 kg)Outpatient Medications as of 10/11/17:potassium citrate ER (UROCIT-K) 10 mEq (1,080 mg) TbERtamsulosin ER (FLOMAX) 0.4 mg ly24ksurippj (COZAAR) 25 mg tabletmultivitamin tabletAdmission/Clinic Administered Medications [...] 20 [facility]. [facility].5 years [facility]. [...] Urine Negative NegativeKetones, Urine Negative 1+ (A)Specific [place], Ur 1.005 - 1.030 1.016Hemoglobin/Blood,Ur Negative 2+ [...] with more than 50% of the total fazi-my-odsi time of thevisit devoted to patient counseling/coordination of care.Feliciano Schroeder, MDDirector, Surgical Stone Disease, [facility] InstituteProfessor of Surgery, [facility] Memorial HospitalPager [phone]/12/2017Previous VersionBonita Ozuna CNP 09/12/2017 7:38 PM SignedUROLOGY SURGICAL HANDPSERVICE DATE: 09/12/2017REFERRING PROVIDER: Cleveland Llanes MD[address] [facility] [address]IQK: No PcpGENDER:SUBJECTIVECHIEF COMPLAINT: Pre-op examHISTORY OF PRESENT [...] symtoms or problems.No history of angina, CHF, [place], cardiac surgery of stents.Respiratory: Negative for current cough, dyspnea. No hx of pneumonia in the pastsix weeksPositive: PND, sinus drainage from allergiesGastrointestinal: No history of GERD, PUD, abd pain, difficulty swallowing, GIbleed.Renal: +stonesMusculoskeletal: Negative for joint pain or swelling, back pain or muscle pain.Skin: Negative for lesions, rash and itching.Psychological: No history of psychiatric symptoms or problems.Neurologic: No history of TIA's, stroke, SCRAP CRUSHER tumor, impaired sensorium,hemiplegia, paraplegia or quadriplegia. No [...] ) Wt 79.4 kg (175 lb) BMI 25.11kg/m0Myghexkhcmp Max: @TMAXREFRESH(24)@ALLERGIES:ISIS RGCHRISNo Known AllergiesLABS:No results found for: BUNNo results found for: CREAshley results found for: PSAGlucose, Urine (mg/dL)Date Value09/12/2017 Negative Bilirubin, Urine (no units)Date Value09/12/2017 Negative Ketones, Urine (no units)Date Value09/12/2017 1+ (A) Specific [place], Ur (no units)Date Value09/12/2017 1.016 Hemoglobin/Blood ,Ur [...] Calculus, kidney (primary encounter diagnosis)N20.1 Calculus of zdlgzyE60.9 Right flank painI10 Essential idrchfnrewpzV78.1 Family history of wlleqsxnceclwriR08.49 Family history of tbrjvutajjtwrrfrlwmW13.9 Low vitamin D rrnuyY19.90 Abnormal urinalysisGLICKFLAT ROCK UROLOGICAL AND KIDNEY INSTITUTEPRE-OP NOTEDate of Procedure: [...] - NoPACE Clinic: Cleared per [facility] - Oliver testing on cureform has been scheduled: YesConsent [...] permitted. If the surgery is scheduled for thebannernoon, you may have water during the morning [...] 2017 : 11:45 AM PAGER/CONTACT #: Dong [facility] PROGRESSon 09-12-2017 PROGRESS HNO ID: [id number] thor: Feliciano NobleService: (none)Author Type: PhysicianType: Progress [...] Urine Negative NegativeKetones, Urine Negative 1+ (A)Specific [place], Ur 1.005 - 1.030 1.016Hemoglobin/Blood,Ur Negative 2+ [...] with more than 50% of the total afhq-nh-gnjlyxqf of the visit devoted to patient counseling/coordination of care.Feliciano Schroeder, MDDirector, Surgical Stone Disease, [facility]rolog[facility] InstituteProfessor of Surgery, [facility] HospitalPager [phone]/12/2017 Normal [facility] PTH, Intacton 09-12-2017 PTH, Intact 26 pg/mL Normal 15-65 [facility] Comment on above: Performed By: #### I CA, CBCDIF, VITD, PTHI, CMP, URIC ####[address] [phone] Type and SCR (30D)on 017 ABO/RH(D) Positive Normal [facility] Comment on above: Performed By: #### T SCR30 ####[address] [phone] Antibody Screen Negative Normal [facility] Comment on above: Performed By: #### T SCR30 ####[address] [phone] Uric Acidon 09-12-2017 Urate 4.9 mg/dL Normal 4.0-8.1 [facility] Comment on above: Performed By: #### I CA, CBCDIF, VITD, PTHI, CMP, URIC ####[address] [place], [place] [phone] Urinalysison 09-12-2017 Bilirubin, Urine Negative Normal Negative [facility] Comment on above: Performed By: #### U A ####[address] [phone] Comments SEE COMMENT Normal [facility] Comment on above: Result Comment: Micr oscopic Examination Performed Performed By: #### U A ####[place] [address] [address] [place] [phone] Erythrocytes (RBC) 10*6/uL Critically abnormal 0-3 [facility] Comment on above: Performed By: #### U A ####[place] [address] AvSh[address] [place] [phone] Hemoglobin mass conc (Bld) 2+ Critically abnormal Negative [facility] Comment on above: Performed By: #### U A ####[place] [address] [address] [place] [phone] Leukest 3+ Critically abnormal Negative [facility] Comment on above: Performed By: #### U A ####[place] [phone] pH of blood 7.0 [pH] Normal 4.5-8.0 [facility] Comment on above: Performed By: #### U A ####[place] [address] [address] [phone] Protein, Urine 30 mg/dL Critically abnormal Negative [facility] Comment on above: Performed By: #### U A ####[place] [phone] Specific [place], Ur 1.016 Normal 1.005-1.03 0 [facility] Comment on above: Performed By: #### U A ####[place] [address] [phone] Urine Kelby Comment SEE COMMENT Normal [place] Comment on above: Result Comment: N/A Performed By: #### U A ####[place] [address]Sh[address] [place] [phone] Urine, clarity Cloudy Critically abnormal Clear [facility] Comment on above: Performed By: #### U A ####[place] [address] [address], [place] [phone] Urine, color Yellow Normal Yellow [facility] Comment on above: Performed By: #### U A ####[place] [address], [place] [phone] Urine, epithelial cells in sediment SEE COMMENT Normal [facility] Comment on above: Result Comment: FewS quamous Epithelial Cells Performed By: #### U A ####[place] [address] [address], [place] [phone] Urine, glucose presence Negative Normal Negative [facility] Comment on above: Performed By: #### U A ####[place] [address] [place] [phone] Urine, ketones presence 1+ Critically abnormal Negative [facility] Comment on above: Performed By: #### U A ####[place] [address] [address], [phone] Urine, nitrite presence Negative Normal Negative [facility] Comment on above: Performed By: #### U A ####[place] [address] [place] [phone] Urine, urobilinogen Normal Normal Normal [facility] Comment on above: Performed By: #### U A ####[place] [address] [address] [place] [phone] WBC (Leukocytes) 10*3/uL Critically abnormal 0-5 [facility] Comment on above: Performed By: #### U A ####[place] [address] [phone] Urine Cultureon 09-12-2017 Urine culture, bacteria Sp. Request/Comment: - Specimen received in preservative Culture Result - No growth (<1,000 CFU/ml) Normal [facility] Comment on above: Performed By: #### U RCUL ####[facility] Rsbdfsrwtdip[address] [place], [place] [phone] Vitamin D 25 Hydroxyon 09-12 Vitamin D 25 Hydroxy 38.6 ng/mL Normal 31.0-80.0 [facility] Comment on above: Result Comment: Clas sification of 25 [place] Vitamin D status:Insufficiency/Moderate Deficiency: < or = 30 ng/mLSufficiency/Optimal Levels: 31 to 80 ng/mLToxicity: > 100 ng/mLTest performed by chemiluminescent immunoassay. Performed By: #### I CA, CBCDIF, VITD, PTHI, CMP, URIC ####[facility] [address] [place], [place] [phone] SR-CT Abdomen/Pelvis w/o Con trast IMPORTon 09-07-2017 SR-CT Abdomen/Pelvis w/o Contrast IMPORT Images were obtained outside of [facility] [id number] Normal [facility] Vital Signs Date Time Vital Sign Value Performing Clinician Facility 10-16-2024 08:06-0500 Blood Pressure Location RockDNART LIMITADA [facility] 10-16-2024 08:06-0500 Diastolic blood pressure 100 mm[Hg] Rock HipSwap [facility] 10-16-2024 08:06-0500 Heart rate 78 /min Rock HipSwap [facility] 10-16-2024 08:06-0500 Systolic blood pressure 163 mm[Hg] Rock [facility] 03-20-2024 08:14-0400 Diastolic blood pressure 85 mm[Hg] Rock [facility] 03-20-2024 08:14-0400 Heart rate 66 /min Rock HipSw[facility] 03-20-2024 08:14-0400 Systolic blood pressure 146 mm[Hg] Rock LUJAN [facility] 08-23-2023 08:30-0500 Blood Pressure Location Laura Orzech [facility] 08-23-2023 08:30-0500 Diastolic blood pressure 91 mm[Hg] Laura Orzech [facility] 08-23-2023 08:30-0500 Heart rate 88 /min Laura Orzech [facility] 08-23-2023 08:30-0500 Respiratory rate 16 /min Laura Orzech [facility] 08-23-2023 08:30-0500 Systolic blood pressure 151 mm[Hg] Laura Orzech [facility] 08-07-2023 08:45-0500 Body height 172.72 cm Abigail Sanchez Other [employer] Other 08-07-2023 08:45-0500 Body mass index (BMI) [Ratio] 25.18 kg/m2 Abigail Sanchez Other [employer] Other 08-07-2023 08:45-0500 Body weight 75.12 kg Abigail Sanchez Other [employer] Other 08-07-2023 08:45-0500 Diastolic blood pressure 73 mm[Hg] Abigail Sanchez Other [employer] Other 08-07-2023 08:45-0500 SaO2% (BldA) [Mass fraction] 99 % Abigail Sanchez Other [employer] Other 08-07-2023 08:45-0500 Systolic blood pressure 165 mm[Hg] Abigail Sanchez Other [employer] Other 11-17-2022 09:30-0500 Body height 172.72 cm Abigail Sanchez Other [employer] Other 11-17-2022 09:30-0500 Body mass index (BMI) [Ratio] 27.82 kg/m2 Abigail Sanchez Other [employer] Other 11-17-2022 09:30-0500 Body weight 83.01 kg Abigail Sanchez Other [employer] Other 11-17-2022 09:30-0500 Diastolic blood pressure 82 mm[Hg] Abigail Sanchez Other [employer] Other 11-17-2022 09:30-0500 SaO2% (BldA) [Mass fraction] 97 % Abigail Sanchez Other [employer] Other 11-17-2022 09:30-0500 Systolic blood pressure 140 mm[Hg] Abigail Sanchez Other [employer] Other 07-26-2022 13:18-0400 Blood Pressure Location Dharmesh LORRAINEL [facility] [place] 07-26-2022 13:18-0400 Diastolic blood pressure 98 mm[Hg] Dharmesh PETERSL [facility] [place] 07-26-2022 13:18-0400 Heart rate 72 /min Dharmesh PETERSL [facility] [place] 07-26-2022 13:18-0400 Respiratory rate 16 /min Dharmesh PETERSL [facility] [place] 07-26-2022 13:18-0400 Systolic blood pressure 138 mm[Hg] Dharmesh WALTERS [facility] [place] Encounters Encounter Date Encounter Type Care Provider Facility Start: 11-05-2025 ambulatory Rock LUJAN Facility : [place] Start: 06-03-2025 ambulatory Rock LUJAN Facility : [place] Start: 06-03-2025 End: 06-03-2025 Patient encounter procedure Rock LUJAN [facility] Start: 05-28-2025 Evaluation and management of inpatient SATISH AMSAILAJA [facility] Start: 05-26-2025 Evaluation and management of inpatient CHRISTINA [facility] Start: 05-26-2025 Evaluation and management of inpatient CHRISTINA [facility] Start: 05-22-2025 Evaluation and management of inpatient EDUARDO Davila [facility] Start: 05-21-2025 Evaluation and management of inpatient SIMON COBIAN [facility] Start: 05-20-2025 Evaluation and management of inpatient EDUARDO Davila [facility] Start: 05-19-2025 Evaluation and management of inpatient EDUARDO Lola [facility] Start: 05-19-2025 Evaluation and management of inpatient EDUARDO Lola [facility] Start: 05-12-2025 Evaluation and management of inpatient EDUARDO Lola [facility] Start: 05-12-2025 End: 05-29-2025 Evaluation and management of inpatient GIANCARLO BANEGAS [facility] Start: 04-23-2025 End: 04-23-2025 ambulatory Rock LUJAN Facility: [place] Start: 04-23-2025 End: 04-23-2025 Patient encounter procedure Rock LUJAN [facility] Gayle Start: 02-14-2025 End: 02-14-2025 ambulatory [facility] Start: 01-30-2025 [facility] Start: 01-30-2025 End: 01-30-2025 ambulatory ASHER KATY [facility] Start: 01-13-2025 End: 01-13-2025 ambulatory [facility] Start: 12-20-2024 End: 12-20-2024 ambulatory [facility] Start: 11-08-2024 End: 11-08-2024 ambulatory [facility] Start: 10-16-2024 End: 10-16-2024 ambulatory Rock LUJAN Facility:[facility] Start: 10-16-2024 End: 10-16-2024 Patient encounter procedure Rock LUJAN [facility] Start: 03-20-2024 End: 03-20-2024 Patient encounter procedure Rock LUJAN [facility] Start: 08-23-2023 End: 08-23-2023 Patient encounter procedure Laura X Doniszech [facility] Start: 08-11-2023 End: 08-11-2023 ambulatory Abigail Sanchez Other [employer] Other Start: 08-11-2023 Telephone encounter Abigail Sanchez [facility] Start: 08-07-2023 End: 08-07-2023 ambulatory Abigail Sanchez Other [employer] Other Start: 08-07-2023 Office outpatient vi sit 15 minutes Abigail Sanchez [facility] Start: 02-08-2023 End: 02-09-[address] ROCK LUJAN Facility:[facility] Start: 11-17-2022 End: 11-17-2022 ambulatory Abigail Sanchez Other [employer] Other Start: 11-17-2022 Encounter for other preprocedural examination Abigail Sanchez [facility] Start: 11-17-2022 Office outpatient vi sit 15 minutes Abigail Sanchez [facility] Start: 11-03-2022 End: 11-04-[address] DENISHA GARCIA Facility:[facility] Start: 08-31-2022 Encounter for preprocedural laboratory examination DR DHARMESH WALTERS . [facility] Start: 08-31-2022 End: 08-31-[address] DHARMESH WALTERS . Facility:[facility] Start: 08-26-2022 End: 08-27-[address] DHARMESH WALTERS . Facility:[facility] Start: 08-26-2022 End: 08-27-2022 Encounter for preprocedural laboratory examination DR DHARMESH WALTERS . Facility:[facility] Start: 07-26-2022 End: 07-26-2022 Patient encounter procedure Dharmesh WALTERS [facility] Start: 06-30-2022 Adult health examination Gricelda Sanchez Other [employer] Other Start: 06-28-2022 End: 06-29-[address] ABIGAIL SANCHEZ Facility:[facility] Start: 04-27-2022 End: 04-27-2022 Patient encounter procedure Rock LUJAN [facility] Start: 04-20-2022 End: 04-21-[address] ROCK LUJAN Facility:[facility] Start: 10-21-2017 End: 10-22-2017 Ambulatory ALEXA GARCIA [facility] Start: 10-13-2017 End: 10-13-2017 Ambulatory FELICIANO SCHROEDER [facility] Start: 10-11-2017 End: 10-13-2017 Ambulatory FELICIANO SCHROEDER [facility] Start: 09-12-2017 End: 09-12-2017 Ambulatory FELICIANO SCHROEDER [facility] Start: 09-12-2017 End: 09-18-2017 Ambulatory FELICIANO SCHROEDER [facility] Procedures Date Procedure Procedure Detail Performing Clinician Start: 02-14-2025 Follow-up visit ASHER BURNS Start: 01-13-2025 Follow-up visit ASHER BURNS Start: 11-08-2024 Follow-up visit ASHER BURNS Start: 08-31-2022 Colonoscopy Laura Orjd Start: 08-31-2022 Esophagogastroduodenoscopy [employer] Start: 04-12-2019 Screening for malignant neoplasm of prostate Abigail Sanchez Other Start: 10-11-2017 Removal of calculus of renal pelvis through percutaneous nephrostomy Rock COOK Start: 10-02-2017 Cystoscopic removal of ureteric stent Rock COOK Start: 01-13-2016 Cysto, right RGP, right JJ stent Rock COOK Start: 09-16-2015 Neck Surgery Rock COOK Bilateral hernia repair Martni hernandez COOK Bilateral inguinal hernia repair Dharmesh NILL Cholecystectomy Rock COOK Colonoscopy Dharmesh NILL History of surgical procedure on cervical spine Dharmesh NILL History of surgical procedure on cervical spine Dharmesh NILL Sinus Surgery Rock LUJAN Small intestine excision Davin chica LUJAN Immunizations Immunization Date Immunization Notes Care Provider Fabiola velazquez 08-16-2021 COVID-19 Vaccine Pfizer - Documentation Purposes Only Abigail Sanchez Other [facility] 01-07-2021 COVID-19 Vaccine Pfizer - Documentation Purposes Only Abigail Daniel Other [facility] 12-17-2020 SARS-CoV-2 (COVID-19 ) mRNA BNT-162b2 vax [employer] [employer] [facility] NEGATED: Highlighted row has not occurred!10-16-2024 influenza virus vaccine, unspecified formulation Rock LUJAN [facility] NEGATED: Highlighted row has not occurred!08-23-2023 influenza virus vaccine, unspecified formulation [employer] [facility] Payers Date Payer Category Payer Medicare [id number] 1961 Medicare [id number] 2. [id number] 1950 Unknown [id number] 2.16.84 [id number] 1948 Unknown [id number] 2.16.84 [id number] 1948 Unknown [id number] 2.16.84 [id number] 1948 Unknown [id number] 2.16.84 [id number] 1948 Unknown [id number] 2.16.84 [id number] 1948 Unknown [id number] 2.16.84 [id number] 1948 Unknown [id number] 2.16.8 [id number] 1948 Unknown [id number] 2.16.8 [id number] 1948 Unknown [id number] 2.16.8 [id number] 1948 Unknown [id number] 2.16.8 [id number] Social History Date Type Detail Facility Start: 04-27-2022 End: 10-16-2024 Tobacco smoking status Never smoked tobacco (finding) [facility] Tobacco smoking status Never [facility] [employer] Sex Assigned At Male [facility] [employer] Sexual Orientation [facility] [employer] Start: 12-20-2018 Sex Male (finding) [facility] Functional Status Date Assessment Result Facility 10-16-2024 Functional Status N/A [facility] 03-20-2024 Functional Status N/A [facility] 08-23-2023 Functional Status N/A [facility] 07-26-2022 Functional Status N/A [facility] Functional Status N/A [facility] [employer] Clinical Notes 04-27-2022 to 06-03-2025 Note Date & Type Note Facility 06-03-2025 Hospital Discharge instructions Patient Education 06/03/2025 10:05:08 Acute Urinary Retention, Male Acute Urinary Retention, Male Acute urinary retention [...] causes? This condition may be caused by: Obstruction or narrowing of the tube that drains the bladder (urethra). This may be caused by surgery, problems with nearby organs, or injury to the bladder or urethra. Problems with the nerves in the bladder. Tumors in the area of the pelvis, bladder, or urethra. Certain medicines. Bladder or urinary tract infection. Constipation. What increases the risk? This condition is more likely to develop in older men. As men age, their prostate may become larger and may start to press or squeeze on the bladder or the urethra. Other chronic health conditions can increase the risk of acute urinary retention. These include: Diseases such as multiple sclerosis. Spinal cord injuries. Diabetes. Degenerative cognitive conditions, such as delirium or dementia. Psychological conditions. A man may hold his urine due to trauma or because he does not want to use the bathroom. What are the signs or symptoms? Symptoms of this condition include: Trouble urinating. Pain in the lower abdomen. How is this diagnosed? This condition is diagnosed based on a physical exam and your medical history. You may also have other tests, including: An ultrasound of the bladder or kidneys or both. Blood tests. A urine analysis. Additional tests may be needed, such as a CT scan, MRI, and kidney or bladder function tests. How is this treated? Treatment for this condition may include: Medicines. Placing a thin, sterile tube (catheter) into the bladder to drain urine out of the body. This is called an indwelling urinary catheter. After it is inserted, the catheter is held in place with a small balloon that is filled with sterile water. Urine drains from the catheter into a collection bag outside of the body. Behavioral therapy. Treatment for other conditions. If needed, you may be treated in the hospital for kidney function problems or to manage other complications. Follow these instructions at home: Medicines Take ejem-xjp-ucyhezu and prescription medicines only as told by your health care provider. Avoid certain medicines, such as decongestants, antihistamines, and some prescription medicines. Do not take any medicine unless your health care provider approves. If you were prescribed an antibiotic medicine, take it as told by your health care provider. Do not stop using the antibiotic even if you start to feel better. General instructions Do not use any products that contain nicotine or tobacco. These products include cigarettes, chewing tobacco, and vaping devices, such as e-cigarettes. If you need help quitting, ask your health care provider. Drink enough fluid to keep your urine pale yellow. If you have an indwelling urinary catheter, follow the instructions from your health care provider. Monitor any changes in your symptoms. Tell your health care provider about any changes. If instructed, monitor your blood pressure at home. Report changes as told by your health care provider. Keep all follow-up visits. This is important. Contact a health care provider if: You have uncomfortable bladder contractions that you cannot control (spasms). You leak urine with the spasms. Get help right away if: You have chills or a fever. You have blood in your urine. You have a catheter and the following happens: ?Your catheter stops draining urine. ?Your catheter falls out. Summary Acute urinary retention is a condition in which a person is unable to pass urine or can only pass a little urine. If left untreated, this condition can result in kidney damage or other serious complications. An enlarged prostate may cause this condition. As men age, their prostate gland may become larger and may press or squeeze on the bladder or the urethra. Treatment for this condition may include medicines and placement of an indwelling urinary catheter. Monitor any changes in your symptoms. Tell your health care provider about any changes. This information is not intended to replace advice given to you by your health care provider. Make sure you discuss any questions you have with your health care provider. Document Revised: 06/09/2021 Document Reviewed: 06/09/2021 [employer] Patient Education 2023 [employer] Follow Up Care 05/30/2025 11:20:20 With:KARLEE GA, Rock Pollock, URL Address: [address] [place] [id number]- When: Unknown [facility] Lise 06-03-2025 Note Patient Education Urology Acute Urinary [...] these instructions at home: Medicines ??? Take uimq-yhv-ziwlcwy and prescription medicines only as told by [...] provider. Document Revised: 06/09/2021 Document Reviewed: 06/09/2021 [employer] Patient Education ? 2023 [employer] [facility] 06-03-2025 Note Thanks for letting me know :) [facility] 05-29-2025 Note [facility] 05-29-2025 Note [facility] 05-29-2025 Note [facility] 05-28-2025 Note [facility] 05-28-2025 Note [facility] 05-28-2025 Note [facility] 05-28-2025 Note [facility] 05-27-2025 Note [facility] 05-27-2025 Note [facility] 05-27-2025 Note [facility] 05-27-2025 Note [facility] 05-26-2025 Note [facility] 05-26-2025 Note [facility] 05-26-2025 Note [facility] 05-26-2025 Note [facility] 05-25-2025 Note [facility] 05-25-2025 Note [facility] 05-24-2025 Note [facility] 05-23-2025 Note [facility] 05-23-2025 Note [facility] 05-23-2025 Note [facility] 05-22-2025 Note Awaiting medical jerome alton, pre-cert valid until 05/25 [facility] 05-22-2025 Note [facility] 05-22-2025 Note Updates sent to [facility]. Patient continues to have further work up and has not been medically cleared for discharge. [facility] 05-22-2025 Note [facility] 05-22-2025 Note [facility] 05-22-2025 Note [facility] 05-21-2025 Note SW advised that yasmeen ent is still not medically ready. He has went for a 2nd CT scan to see what might be going on due to abnormal labs. SUSIE advised [facility]. [facility] 05-21-2025 Note [facility] 05-21-2025 Note [facility] 05-21-2025 Note [facility] 05-20-2025 Note [facility] 05-20-2025 Note [facility] 05-20-2025 Note Patient precert rec' d. AVS sent to [facility]. Packet made. 1219 completed. Patient is letting his family know. RN to call report. No other needs known to this worker. [facility] 05-20-2025 Note [facility] 05-20-2025 Note [facility] 05-20-2025 Note [facility] 05-19-2025 Note [facility] 05-19-2025 Note [facility] 05-19-2025 Note [facility] 05-19-2025 Note [facility] 05-19-2025 Note [facility] 05-19-2025 Note [facility] 05-19-2025 Note [facility] 05-18-2025 Note [facility] 05-18-2025 Note [facility] 05-17-2025 Note [facility] 05-16-2025 Note [facility] 05-16-2025 Note [facility] 05-16-2025 Note [facility] 05-15-2025 Note [facility] 05-15-2025 Note [facility] 05-14-2025 Note [facility] 05-14-2025 Note [facility] 05-13-2025 Note [facility] 05-13-2025 Note [facility] 05-13-2025 Note Respiratory Therapy Note Patient is on 1L of oxygen SPO2 95% Lungs are diminished and clear. No chest X-ray of CT of chest done. No interventions at this time. [facility] 05-13-2025 Note Spoke with senior an brown resident Marjorie about increasing heart rate lopressor order for hr greater then 120 [facility] 05-13-2025 Note Peripheral IV Date/Time: 05/13/2025 1:24 AM Inserted by: Colin Miller MD Placement Needle size: 18 G Laterality: right Location: hand Site prep: alcohol Technique: anatomical landmarks Attempts: 1 [facility] 05-13-2025 Note Peripheral IV Date/Time: 05/13/2025 1:02 AM Inserted by: Colin Miller MD Placement Needle size: 18 G Laterality: right Location: forearm Site prep: alcohol Technique: anatomical landmarks Attempts: 1 [facility] 05-13-2025 Note [facility] 05-13-2025 Note [facility] 05-12-2025 Note [facility] 04-23-2025 Hospital Discharge instructions Patient Education 04/23/2025 [...] treatment? Where to find more information The [employer]: www.cancer.org [employer] U[employer] Association: www.auanet.org Contact a health care [...] provider. Document Revised: 03/14/2022 Document Reviewed: 03/14/2022 [employer] Patient Education 2023 [employer] Follow Up Care 10/16/2024 08:35:29 With:KARLEE GA, Rock Pollock, URL Address: [address] [place], [place] [id number]- When: Unknown [facility] 04-23-2025 Note Patient Education Oncology Prostate Cancer [...] Where to find more information ??? The [employer]: www.cancer.org ??? [employer] U[employer] Association: www.auanet.org Contact a health care [...] The prostate gland (more content not included)... [facility] 02-14-2025 Note [facility] 01-30-2025 Note [facility] 01-30-2025 Note This report has been cancelled. [facility] 01-13-2025 Note [facility] 11-08-2024 Note [facility] 10-16-2024 Hospital Discharge instructions Patient Education [...] treatment? Where to find more information The [employer]: www.cancer.org [employer] U[employer] Association: www.auanet.org Contact a health care [...] provider. Document Revised: 03/14/2022 Document Reviewed: 03/14/2022 [employer] Patient Education 2023 [employer] Follow Up Care 03/20/2024 09:04:03 With:KARLEE GA, Rock Pollock, URL Address: [facility] [employer] [place] [id number]- When: Unknown [facility] 10-16-2024 Note Patient Education Oncology Prostate [...] Where to find more information ??? The [employer]: www.cancer.org ??? [employer] U[employer] Association: www.auanet.org Contact a health care [...] The prostate gland (more content not included)... [facility] 03-20-2024 Hospital Discharge instructions Patient Education [...] urethra. Follow these instructions at home: Take gnqu-tzi-txatxkv and prescription medicines only as told by [...] provider. Document Revised: 04/06/2022 Document Reviewed: 04/06/2022 [employer] Patient Education 2022 [employer] Follow Up Care 08/23/2023 09:06:17 With:KARLEE GA, Rock Pollock, URL Address: [address] [place], [place] [id number]- When: Unknown [facility] 08-23-2023 Hospital Discharge instructions Patient Education [...] urethra. Follow these instructions at home: Take oqgc-lhu-bdiadbm and prescription medicines only as told by [...] provider. Document Revised: 04/06/2022 Document Reviewed: 04/06/2022 [employer] Patient Education 2022 [employer] 08/23/2023 11:10:20 Prostate Cancer Screening Prostate Cancer [...] treatment? Where to find more information The [employer] Society: www.cancer.org [employer] U[employer] Association: www.auanet.org Contact a health care [...] provider. Document Revised: 03/14/2022 Document Reviewed: 03/14/2022 [employer] Patient Education 2022 [employer] Follow Up Care 02/15/2023 12:04:24 With:KARLEE GA, Rock Pollock, URL Address: [address] [place], [place] [id number]- When: Unknown [facility] 08-07-2023 Evaluation note Encounter Date Diagnosis [...] Symptoms improving. Has passed the quarantine dates. [facility], hydrate. [employer] Other 02-16-2023 Evaluation note* Encounter Date Diagnosis [...] juncture. Nov, Essential hypertension (ICD-10 - I10) [employer] Other 11-30-2022 NoteOP Note OPERATION DATE: 08/31/2022 [...] year after that. CC: Abigail Sanchez M.D.[id number] NoteOPERATIVE NOTE OPERATION DATE: 08/26/2022 PREOPERATIVE DIAGNOSIS: [...] in good condition. CC: Abigail Sanchez M.D.[id number] NoteOPERATIVE NOTE OPERATION DATE: 08/26/2022 PREOPERATIVE DIAGNOSIS: [...] one year after that. CC: Abigail Sanchez M.D.[facility]07-27-2022 Hospital Discharge instructions Patient Education 04/27/2022 08:25:39 [...] urethra. Follow these instructions at home: Take gvjt-xqb-spinlhk and prescription medicines only as told by [...] 09/18/2006 Document Revised: 08/13/2019 Document Reviewed: 10/23/2017 [employer] Patient Education 2020 [employer]. Follow Up Care 10/25/2021 11:53:28 With:Rock LUJAN MD, URL Address: [address] [place], [place] [id number]- When:Within 6 Month(s) [facility] evaluation + Plan note Future Appointments Appointment Date:10/17/2022 08:00:00 AM Scheduled Provider:Rock LUJAN MD Location:[facility] Appointment Type:URO Office Visit Diagnostic Tests Pending * PSA Free & Total 09/01/22 [facility] evaluation + Plan note Future Appointments Appointment Date:10/17/2022 08:00:00 AM Scheduled Provider:Rock LUJAN MD Location:[facility] Appointment Type:URO Office Visit General Surgery [place] Evaluation + Plan note Future Appointments Appointment Date:03/20/2024 08:00:00 AM Scheduled Provider:Rock LUJAN MD Location:[facility] Appointment Type:URO Office Visit Diagnostic Tests Pending * PSA Free & Total 08/23/23 [facility] evaluation + Plan note Future Appointments Appointment Date:10/16/2024 08:00:00 AM Scheduled Provider:Rock LUJAN MD Location:[facility] Appointment Type:URO Office Visit Diagnostic Tests Pending * PSA Free & Total 07/02/24 [facility] Evaluation + Plan note Future Appointments Appointment Date:04/23/2025 08:45:00 AM Scheduled Provider:Rock LUJAN MD Location:[facility] Appointment Type:URO Office Visit Diagnostic Tests Pending * PSA Free & Total 03/02/25 [facility] Evaluation + Plan note Future Appointments Appointment Date:11/05/2025 08:15:00 AM Scheduled Provider:Rock LUJAN MD Location:[facility] Appointment Type:URO Office Visit Diagnostic Tests Pending * PSA Free & Total 09/01/25 [facility] Evaluation + Plan note Future Appointments Appointment Date:11/05/2025 08:15:00 AM Scheduled Provider:Rock LUJAN MD Location:[facility] Appointment Type:URO Office Visit [facility] [place] evaluation noteNo [facility] [employer] Other [facility] general Narrative - Reported* Type Description Date Medical History Iron deficiency anemia Medical History Fatigue Medical History Dyspnea on exertion Medical History Essential hypertension Surgical History CHOLECYSTECTOMY Surgical History CERVICAL DISC SURGERY Surgical History 2 INGUINAL HERNIA SURGERY Hospitalization History SEE SURGICAL [employer] Other [facility] general Narrative - Reported* Type Description Date Medical History Iron deficiency anemia Medical History Fatigue Medical History Dyspnea on exertion Medical History Essential hypertension Surgical History CHOLECYSTECTOMY Surgical History CERVICAL DISC SURGERY Surgical History 2 INGUINAL HERNIA SURGERY Surgical History Colonoscopy 2022 Surgical History Bowel resection 11/2022 Hospitalization History SEE SURGICAL [employer] Other Hospital course Narrative No data available for this section [facility] Hospital Discharge instructions No data available for this section General Surgery [facility] Progress note No data available for this section [facility] Gayle Summary Purpose Family History No Family History [...] content) DATE CREATED AUTHOR 03/26/2018 [facility] DATE CREATED AUTHOR AUTHOR'S ORGANIZ ATION 03/31/2022 [facility] DATE CREATED AUTHOR AUTHOR'S ORGANIZ ATION 02/12/2023 [facility] DATE CREATED AUTHOR AUTHOR'S ORGANIZ ATION 06/03/2025 [facility] DATE CREATED AUTHOR AUTHOR'S ORGANIZ ATION 06/04/2025 [facility] Care Team (unrecognized sect ion and content) Personnel Name: ABIGAIL SANCHEZ MD Address: [address] [place] [address] Personnel Name: ABIGAIL SANCHEZ MD Address: Address: [address] [place] [address] Personnel Name: ABIGAIL SANCHEZ MD Address: Address: [address] [place] [address] Personnel Name: ABIGAIL SANCHEZ MD Address: Address: [address] [place] [address] Personnel Name: ABIGAIL SANCHEZ MD Address: Address: [address] [place] [address] Personnel Name: ABIGAIL SANCHEZ MD Address: [address] [place] [address] Telecom: Personnel Name: ABIGAIL SANCHEZ MD Address: [address] [place] [address] Telecom: REASON FOR VISIT (unrecogniz ed section [...] BE BASED ON THE PRIMARY CLINICAL RECORDS. [employer] [facility]. provides no warranty or guarantee of the accuracy or completeness of information in this document.
== END 2025-06-04 14:31 | disposition home or self-care (01) ==
LOC: LAB 14:30
PROVIDERS: PCP Family Medicine; Visit Provider Dietitian, Registered
DX: N39.0 Urinary tract infection, site not specified (principal); L02.91 Cutaneous abscess, unspecified
CPT/HCPCS: 36415; 82565; 84520; 85025

== ENCOUNTER 2025-06-09 13:41 | Outpatient (REF) | payer MEDICARE, SELFPAY ==
[2025-06-09 14:06] LABS: Hematocrit 29.7 % (42.0-54.0); Hemoglobin 9.8 g/dL (14.0-18.0); Immature Granulocytes Abs Auto 0.02 10^3/uL (0.00-0.03); Immature Granulocytes Pct Auto 0.2 % (0.0-0.5); Lymphocytes Absolute Auto 2.0 10^3/uL (1.2-3.8); Mean Corpuscular HGB Conc 33.0 g/dL (29.9-35.2); Mean Corpuscular Hemoglobin 30.9 pg (25.9-34.0); Mean Corpuscular Volume 93.7 fL (80.0-94.0); Platelet Count 190 10^3/uL (150-450); Red Blood Count 3.17 10^6/uL (4.70-6.10); White Blood Count 8.3 10^3/uL (4.0-11.0)
[2025-06-09 14:19] LABS: Blood Urea Nitrogen 8.0 mg/dL (7.0-18.0); Estimated GFR (African America >60 (>=60 mL/min/1.73m^2); Estimated GFR (Non-African Ame >60 (>=60 mL/min/1.73m^2)
--- OUTSIDE RECORDS SUMMARY | 2025-06-09 14:54 | XMS_ITS | CCD ---
Author Organization [facility] Care Team Providers Care [employer] Name Role Phone SCHROEDER, FELICIANO Unavailable Unavailable [...] SANCHEZ, DR ABIGAIL Trejo Primary Care Unavailable WEST, DR OLIVER Maguire Consulting Unavailable GARCIA, DR DENNY Consulting Unavailable COOK, DR ROCK Pollock Admitting Unavailable COOK, DR ROCK Pollock Attending Unavailable SANCHEZ, DR ABIGAIL Trejo Primary Care Unavailable COOK, DR ROCK Pollock Consulting Unavailable NILL ., DR BARROSO Admitting Unavailable NILL ., DR BARROSO Attending Unavailable SANCHEZ, DR ABIGAIL Trejo Primary Care Unavailable NILL ., DR BARROSO Consulting Unavailable RODRIGUEZRENÉ Consulting Unavailable NILL ., DR BARROSO Admitting Unavailable NILL ., DR BARROSO Attending Unavailable SANCHEZ, DR ABIGAIL Trejo Primary Care Unavailable NILL ., DR BARROSO Consulting Unavailable REMBERTO, XI WESTON Consulting Unava ilable GEMBUS, LUCITA Consulting Unavailable COOK, DR ROCK Pollock Admitting Unavailable COOK, DR ROCK Pollock Attending Unavailable SANCHEZ, DR ABIGAIL Trejo Primary Care Unavailable COOK, DR ROCK Pollock Consulting Unavailable COOK, Rock Pollock Attending Unavailable COOK, Rock Pollock Attending Unavailable COOK, Rock Pollock Attending Unavailable COOK, Rock Pollock Attending Unavailable COOK, Rock Pollock Attending Unavailable JOHN PLASENCIA Attending Unavailable JOHN PLASENCIA Attending Unavailable EDUARDO PEARSON Referring Unavailable EDUARDO PEARSON Referring Unavailable EDUARDO PEARSON Referring Unavailable MCQUILLIN, SIMON Referring Unavailable EDUARDO PEARSON Referring Unavailable BOYKIN-BUKOWIEC, CHRISTINA Referring UnavailGIANCARLO Briggs Referring Unavailable EDUARDO PEARSON Admitting Unavailable EDUARDO PEARSON Attending Unavailable BOYKIN-MOIKOWIEC, CHRISTINA Referring Unavailmonica e AMADIO, SATISH Referring Unavailable EDUARDO PEARSON Referring Unavailable JOHN PLASENCIA Attending Unavailable JOSE, LEO Attending Unavailable OPAL FERNANDEZ Attending Unavailable AGATHA YO Attending Unavailable CHINAMY, JOHN Referring Unavailable SANJU HOWARD Attending Unavailabl e CHINMAY, JOHN Referring Unavailable KATY, ASHER Referring Unavailable Medications Current Medications Medication Drug [...] BID, # 14 tab(s), Refills(s) 0, Pharmacy: [facility], 177, cm, 02/15/23 11:48:00 EDT, Height/Length [...] BID, # 180 cap(s), Refills(s) 3, Pharmacy: [facility], 177, cm, 10/16/24 8:08:00 EST, Height/Length Dosing, 78, kg, 10/16/24 8:08:00 EST, Weight Dosing Start Date: 01/01/25 Status: Ordered Quantity: 180.0 Unit: cap(s) Repeat number: 4 Start: 01-09-2024 take 1 capsule by mo ut twice daily tamsulosin 0.4 mg Cap 0.4 mg = 1 cap(s), Oral, BID, # 180 cap(s), Refills(s) 3, Pharmacy: [facility] #[facility], 177, cm, 08/23/23 8:44:00 EST, Height/Length Dosing, 78.9, kg, 08/23/23 8:44:00 EST, Weight Dosing Start Date: 01/09/24 Status: Ordered Start: 01-12-2023 take 1 capsule by mo uth twice daily tamsulosin 0.4 mg Cap 0.4 mg = 1 cap(s), Oral, BID, # 180 cap(s), Refills(s) 3, Pharmacy: [facility] #[facility], 177, cm, 07/26/22 13:27:00 EDT, Height/Length Dosing, 87.5, kg, 07/26/22 13:27:00 EDT, Weight Dosing Start Date: 01/12/23 Status: Ordered Start: 01-05-2022 take 1 capsule by [facility] twice daily tamsulosin 0.4 mg Cap 0.4 mg = 1 cap(s), Oral, BID, # 180 cap(s), Refills(s) 3, Pharmacy: [facility] #[facility], 177, cm, 10/25/21 11:30:00 EST, Height/Length Dosing, 78.9, kg, 10/25/21 11:30:00 EST, Weight Dosing Start Date: 01/05/22 Status: Ordered take 1 capsule by [facility] every twenty-four hours Tamsulosin HCl 0.4 MG [...] Repeat number: 1 take 1 tablet by [facility] every twelve hours Losartan Potassium 25 MG [...] [Calculus of ureter] Onset: 09-12-2017 12-18-2019 Episodic Complications of surgical procedures or medical care (2 sources) Infection following a procedure, organ and space surgical site, initial encounter; Translations: [Infection following a procedure, organ and space surgical site, initial encounter] Onset: 06-05-2025 Episodic Deficiency and other anemia (2 sources) [...] osteoarthritis, unspecified site] Onset: 11-08-2024 Chronic Other aftercare (2 sources) Encounter for adjustment and management of vascular access device; Translations: [Encounter for adjustment and management of vascular access device] Onset: 06-05-2025 Episodic Other and unspecified benign neoplasm (3 [...] W/AND (SUSP) EXPOS COVID-19] Onset: 08-31-2022 Unclassified (2 sources) Post-op; Translations: [Post-op] Onset: 06-05-2025 Unclassified (1 source) Personal history of colon [...] 09-07-2022 Episodic Other aftercare (1 source) Other continuous churn buttermaker (current) drug therapy; Translations: [OTH SNF CURRENT DRUG THERAPY] Onset: 09-07-2022 Episodic Other [...] Name Value Interpretation Reference Range Facility 36on 06-06-2025 36 Patient called back in unable to come in early. [facility] 36 Called patient to mo ve appt up no answer lmom to cb. [facility] Telephoneon 06-06-2025 Telephone [facility] 37on 06-05-2025 37 [facility] Follow-Upon 06-05-2025 Follow-Up [facility] 36on 06-04-2025 36 Spoke with Renetta , overnight caregiver, at [facility] and confirmed they had OPAT orders. Nurse is going to visit patient and draw labs today 06/04. Confirmed fax number for results to be sent over. [facility] Ambulatory Visit Summaryon 0 06-03-2025 Ambulatory Visit Summary Ambulatory Visit Summary DARRELL NELSON :1950 Visit Date:06/03/2025 Ambulatory Visit Instructions Your Diagnosis Urinary retention BPH with urinary obstruction Elevated PSA History of kidney stones Your Care Team Attending Physician - KARLEE [...] Rock LUJAN MD Where: [facility] [address], [address] [place] [address]- You Need to Schedule the Following Appointments Follow Up with Rock LUJAN MD, URL When: Where: [address] [facility] [address] [place] [address]- Medications What How Much When Instructions Unchanged [...] m (more content not included)... Normal [facility] Urology Office/Clinic Noteon 06-03-2025 Urology Office/Clinic Note Urology Office/Clinic Note Chief Complaint F/u to discuss cath removal HPI Staff Pt had a bowel resection 05/12/12 at [facility]. Catheter was placed and removed a couple of times. Each time removed pt was unable to void on his own. An indwelling cath was placed this past Monday and was left in. He is here to discuss cath removal today. Pt states he had no problem emptying his bladder before the procedure at [facility]. Dx: elevated PSA (PSA due in Oct [...] UR after bowel resection on 05/12/25 at [facility], catheter was placed. Failed TOV 05/28/25, difficulty [...] MD, URL [address] [facility] [address] [place] [address]- Additional Instructions: has f/u 11/05/25 w/ PSA and KUB Patient Education Acute Urinary Retention, Male I, Ale Pelaez, personally scribed for Dr. Lujan on (more content not included)... Normal [facility] Comment on above: Result Comment: Elec tronically Signed By: Rock LUJAN MD\.br\Date and Time Signed: 06/03/25 10:08 EDT\.br\Electronically Co-Signed By: Ale Pelaez\.br\Date and Time Co-Signed: 06/03/25 10:06 EDT Documentationon 06-02-2025 Documentation Normal [facility] Orders Onlyon 05-30-2025 Orders Only Normal [facility] 30on 05-29-2025 30 Normal [facility] BASIC METABOLIC PANELon 08- Anion gap [Moles/Vol] 9 mmol/L Normal 7-20 [facility] Comment on above: Performed By: #### L [id number] ####[facility] ([facility])[address] [facility] [place] [address] Calcium [Mass/Vol] 8.1 mg/dL Low 8.6-10.3 [facility] Comment on above: Performed By: #### L [id number] ####[facility] ([facility])[address] [facility] [place] [address] Chloride [Moles/Vol] 102 mmol/L Normal 98-107 [facility] Comment on above: Performed By: #### L [id number] ####[facility] ([facility])[address] [facility] [place] [address] CO2 [Moles/Vol] 29 mmol/L Normal 21-31 [facility] Comment on above: Performed By: #### L [id number] ####[facility] ([facility])[address] [place] [address] Creatinine [Mass/Vol] 0.67 mg/dL Low 0.70-1.30 [facility] Comment on above: Performed By: #### L [id number] ####[facility] ([facility])[address] [place] [address] GLOMERULAR FILTRATION RATE ML/MIN/1.73 SQ M.PREDICTED 96.8 mL/min/1.73m*2 Normal >60.0 [facility] Comment on above: Result Comment: The [facility]???s estimated glomerular filtration rate (eGFR) will no [...] of individuals. Performed By: #### L [id number] ####[facility] ([facility])[address] [place] [address] Glucose [Mass/Vol] 100 mg/dL Normal 70-100 [facility] Comment on above: Performed By: #### L [id number] ####[facility] ([facility])[address] [place] [address] Potassium [Moles/Vol] 3.9 mmol/L Normal 3.5-5.1 [facility] Comment on above: Performed By: #### L [id number] ####[facility] ([facility])[address] [place] [address] Sodium [Moles/Vol] 136 mmol/L Normal 136-145 [facility] Comment on above: Performed By: #### L [id number] ####[facility] ([facility])[address] [place] [address] Urea nitrogen [Mass/Vol] 6 mg/dL Low 7-25 [facility] Comment on above: Performed By: #### L [id number] ####[facility] ([facility])[address] [place] [address] UREA NITROGEN/CREATININ E (MASS RATIO) IN SER/PLAS 9.0 Normal [facility] Comment on above: Performed By: #### L [id number] ####[facility] ([facility])[address] [place] [address] CBC WITH AUTO DIFFERENTIALon 05-29-2025 Erythrocyte distribution width (RBC) [Ratio] 15.2 % High 11.5-15.0 [facility] Comment on above: Performed By: #### L [id number] ####[facility] ([facility])[address] [place] [address] ERYTHROCYTE MEAN CORPUSCULAR HEMOGLOBIN CONCENTRATION (G/DL) BY AUTOMATED 33.9 g/dL Normal 32.0-35.0 [facility] Comment on above: Performed By: #### L [id number] ####[facility] ([facility])[address] [place] [address] Hematocrit (Bld) [Volume fraction] 27.4 % Low 39.0-50.0 [facility] Comment on above: Performed By: #### L [id number] ####[facility] ([facility])[address] [place] [address] Hemoglobin (Bld) [Mass/Vol] 9.3 g/dL Low 13.0-17.0 [facility] Comment on above: Performed By: #### L [id number] ####[facility] ([facility])[address] [place] [address] MCH (RBC) [Entitic mass] 31.4 pg Normal 27.0-33.0 [facility] Comment on above: Performed By: #### L [id number] ####[facility] [place] [address] MCV (RBC) [Entitic vol] 92.6 fL Normal 82.0-98.0 [facility] Comment on above: Performed By: #### L [id number] ####[facility] ([facility])[address] [address] NRBC (PER 100 WBCS) BY AUTOMATED COUNT 0.0 % Normal 0 [facility] Comment on above: Performed By: #### L [id number] ####[facility] [place] [address] PLATELETS (10*3/UL) IN BLOOD AUTOMATED COUNT 356 10*3/uL Normal 150-400 [facility] Comment on above: Performed By: #### L [id number] ####[facility] [place] [address] RBC (Bld) [#/Vol] 2.96 10*6/uL Low 4.20-5.70 [facility] Comment on above: Performed By: #### L [id number] ####[facility] ([facility])[address] [place] [address] WBC (Bld) [#/Vol] 13.28 10*3/uL High 4.00-10.60 [facility] Comment on above: Performed By: #### L [id number] ####[facility] ([facility])[address] [place] [address] DSon 05-29-2025 DS Normal [facility] MAGNESIUMon 05-29-2025 Magnesium [Mass/Vol] 2.0 mg/dL Normal 1.9-2.7 [facility] Comment on above: Performed By: #### L [id number] ####[facility] [place] [address] MANUAL DIFFERENTIALon 2024 BASOPHILS (10*3/UL) IN BLOOD BY CALCULATION 0.07 10*3/uL Normal 0.00-0.20 [facility] Comment on above: Performed By: #### L [id number] ####[facility] [place] [address] BASOPHILS/100 LEUKOCYTES IN BLOOD BY AUTOMATED COUNT 0.5 % Normal 0.0-1.0 [facility] Comment on above: Performed By: #### L [id number] ####[facility] ([facility])[address] [place] [address] EOSINOPHILS (10*3/UL) IN BLOOD BY CALCULATION 0.28 10*3/uL Normal 0.00-0.50 [facility] Comment on above: Performed By: #### L [id number] ####[facility] ([facility])[address] [place] [address] EOSINOPHILS/100 LEUKOCYTES IN BLOOD BY AUTOMATED COUNT 2.1 % Normal 0.0-6.0 [facility] Comment on above: Performed By: #### L [id number] ####[facility] ([facility])[address] [place] [address] IMMATURE GRANULOCYTES (10*3/UL) IN BLOOD BY CALCULATION 0.15 10*3/uL Normal 0.00-0.20 [facility] Comment on above: Performed By: #### L [id number] ####[facility] ([facility])[address] [place] [address] IMMATURE GRANULOCYTES/100 LEUKOCYTES IN BLOOD BY AUTOMATED COUNT 1.1 % High 0.0-1.0 [facility] Comment on above: Performed By: #### L [id number] ####[facility] ([facility])[address] [place] [address] LYMPHOCYTES (10*3/UL) IN BLOOD BY CALCULATION 2.40 10*3/uL Normal 1.20-4.00 [facility] Comment on above: Performed By: #### L [id number] ####[facility] ([facility])[address] [place] [address] LYMPHOCYTES/100 LEUKOCYTES IN BLOOD BY AUTOMATED COUNT 18.1 % Low 20.0-45.0 [facility] Comment on above: Performed By: #### L [id number] ####[facility] ([facility])[address] [place] [address] MONOCYTES (10*3/UL) IN BLOOD BY CALCUATION 1.59 10*3/uL High 0.10-1.00 [facility] Comment on above: Performed By: #### L [id number] ####[facility] ([facility])[address] [place] [address] MONOCYTES/100 LEUKOCYTES IN BLOOD BY AUTOMATED COUNT 12.0 % Normal 5.0-12.0 [facility] Comment on above: Performed By: #### L [id number] ####[facility] ([facility])[address] [place] [address] NEUTROPHILS (10*3/UL) IN BLOOD BY CALCULATION 8.8 10*3/uL High 1.6-7.6 [facility] Comment on above: Performed By: #### L [id number] ####[facility] ([facility])[address] [place] [address] NEUTROPHILS/100 LEUKOCYTES IN BLOOD BY AUTOMATED COUNT 66.2 % Normal 40.0-72.0 [facility] Comment on above: Performed By: #### L [id number] ####[facility] ([facility])[address] [place] [address] PHOSPHORUSon 05-29-2025 Magnesium [Mass/Vol] 3.0 mg/dL Normal 2.5-5.0 [facility] Comment on above: Performed By: #### L [id number] ####[facility] ([facility])[address] [place] [address] 30on 05-28-2025 30 Normal [facility] 30 The patient is Moder ately Stable - Low risk of patient condition declining or worsening The patient's goals for the shift include discharge The clinical goals for the shift include vss comfort Normal [facility] 30 Normal [facility] BASIC METABOLIC PANELon 05-03 Anion gap [Moles/Vol] 11 mmol/L Normal - [facility] Comment on above: Performed By: #### L [id number] ####[facility] ([facility])[address] [place] [address] Calcium [Mass/Vol] 7.8 mg/dL Low 8.6-10.3 [facility] Comment on above: Performed By: #### L [id number] ####[facility] ([facility])[address] [place] [address] Chloride [Moles/Vol] 103 mmol/L Normal 98-107 [facility] Comment on above: Performed By: #### L [id number] ####[facility] ([facility])[address] [place] [address] CO2 [Moles/Vol] 25 mmol/L Normal 21-31 [facility] Comment on above: Performed By: #### L [id number] ####[facility] [place] [address] Creatinine [Mass/Vol] 0.67 mg/dL Low 0.70-1.30 [facility] Comment on above: Performed By: #### L [id number] ####[facility] ([facility])[address] [place] [address] GLOMERULAR FILTRATION RATE ML/MIN/1.73 SQ M.PREDICTED 96.8 mL/min/1.73m*2 Normal >60.0 [facility] Comment on above: Result Comment: The [facility]???s estimated glomerular filtration rate (eGFR) will no [...] of individuals. Performed By: #### L [id number] ####[facility] ([facility])[address] [place] [address] Glucose [Mass/Vol] 98 mg/dL Normal 70-100 [facility] Comment on above: Performed By: #### L [id number] ####[facility] ([facility])[address] [place] [address] Potassium [Moles/Vol] 3.8 mmol/L Normal 3.5-5.1 [facility] Comment on above: Performed By: #### L [id number] ####[facility] ([facility])[address] [place] [address] Sodium [Moles/Vol] 135 mmol/L Low 136-145 [facility] Comment on above: Performed By: #### L [id number] ####[facility] ([facility])[address] [place] [address] Urea nitrogen [Mass/Vol] 6 mg/dL Low 7-25 [facility] Comment on above: Performed By: #### L [id number] ####[facility] ([facility])[address] [place] [address] UREA NITROGEN/CREATININ E (MASS RATIO) IN SER/PLAS 9.0 Normal [facility] Comment on above: Performed By: #### L [id number] ####[facility] ([facility])[address] [place] [address] BODY FLUID CULTUREon 025 Amoxicillin+Clavul anate [Susc] >16/8 Resistant [facility] Comment on above: Performed By: #### L [id number] ####[facility] ([facility])[address] [place] [address] Ampicillin [Susc] >16 [facility] Comment on above: Performed By: #### L [id number] ####[facility] ([facility])[address] [place] [address] Ampicillin+Sulbact am [Susc] >16/8 Resistant [facility] Comment on above: Performed By: #### L [id number] ####[facility] ([facility])[address] [place] [address] ceFAZolin [Susc] Resistant [facility] Comment on above: Performed By: #### L [id number] ####[facility] ([facility])[address] [place] [address] cefTRIAXone [Susc] <=1 Susceptible [facility] Comment on above: Performed By: #### L [id number] ####[facility] [place] [address] Ciprofloxacin [Susc] <=0.25 Susceptible [facility] Comment on above: Performed By: #### L [id number] ####[facility] [place] [address] Gentamicin [Susc] <=2 Susceptible [facility] Comment on above: Performed By: #### L [id number] ####[facility] ([facility])[address] [place] [address] Tobramycin [Susc] <=2 Susceptible [facility] Comment on above: Performed By: #### L [id number] ####[facility] ([facility])[address] [place] [address] CBC WITH AUTO DIFFERENTIALon 05-28-2025 Erythrocyte distribution width (RBC) [Ratio] 15.5 % High 11.5-15.0 [facility] Comment on above: Performed By: #### L [id number] ####[facility] ([facility])[address] [place] [address] ERYTHROCYTE MEAN CORPUSCULAR HEMOGLOBIN CONCENTRATION (G/DL) BY AUTOMATED 34.0 g/dL Normal 32.0-35.0 [facility] Comment on above: Performed By: #### L [id number] ####[facility] ([facility])[address] [place] [address] Hematocrit (Bld) [Volume fraction] 25.6 % Low 39.0-50.0 [facility] Comment on above: Performed By: #### L [id number] ####[facility] [place] [address] Hemoglobin (Bld) [Mass/Vol] 8.7 g/dL Low 13.0-17.0 [facility] Comment on above: Performed By: #### L [id number] ####[facility] ([facility])[address] [place] [address] MCH (RBC) [Entitic mass] 32.2 pg Normal 27.0-33.0 [facility] Comment on above: Performed By: #### L [id number] ####[facility] ([facility])[address] [place] [address] MCV (RBC) [Entitic vol] 94.8 fL Normal 82.0-98.0 [facility] Comment on above: Performed By: #### L [id number] ####[facility] ([facility])[address] [place] [address] NRBC (PER 100 WBCS) BY AUTOMATED COUNT 0.0 % Normal 0 [facility] Comment on above: Performed By: #### L [id number] ####[facility] ([facility])[address] [place] [address] PLATELETS (10*3/UL) IN BLOOD AUTOMATED COUNT 330 10*3/uL Normal 150-400 [facility] Comment on above: Performed By: #### L [id number] ####[facility] ([facility])[address] [place] [address] RBC (Bld) [#/Vol] 2.70 10*6/uL Low 4.20-5.70 [facility] Comment on above: Performed By: #### L [id number] ####[facility] ([facility])[address] [place] [address] WBC (Bld) [#/Vol] 13.32 10*3/uL High 4.00-10.60 [facility] Comment on above: Performed By: #### L [id number] ####[facility] ([facility])[address] [place] [address] CT GUIDED ABSCESS FLUID GABRIEL ECTION DRAINAGEon 05-28-2025 CT GUIDED ABSCESS FLUID COLLECTION DRAINAGE Invalid Interpretation Code [facility] MAGNESIUMon 05-28-2025 Magnesium [Mass/Vol] 1.9 mg/dL Normal 1.9-2.7 [facility] Comment on above: Performed By: #### L [id number] ####[facility] ([facility])[address] [place] [address] PHOSPHORUSon 05-28-2025 Magnesium [Mass/Vol] 2.7 mg/dL Normal 2.5-5.0 [facility] Comment on above: Performed By: #### L [id number] ####[facility] ([facility])[address] [place] [address] TEST MANUAL DIFFERENTIALon 0 05-28-2025 EOSINOPHILS (10*3/UL) IN BLOOD BY CALCULATION 0.27 10*3/uL Normal 0.00-0.50 [facility] Comment on above: Order Comment: Leelee l Red Cell Population Performed By: #### L [id number] ####[facility] ([facility])[address] [place] [address] EOSINOPHILS/100 LEUKOCYTES IN BLOOD BY MANUAL COUNT 2 % Normal 0-6 [facility] Comment on above: Order Comment: Leelee l Red Cell Population Performed By: #### L [id number] ####[facility] ([facility])[address] [place] [address] LYMPHOCYTES (10*3/UL) IN BLOOD BY CALCULATION 2.13 10*3/uL Normal 1.20-4.00 [facility] Comment on above: Order Comment: Leelee l Red Cell Population Performed By: #### L [id number] ####[facility] ([facility])[address] [place] [address] LYMPHOCYTES/100 LEUKOCYTES IN BLOOD BY MANUAL COUNT 16 % Low 20-45 [facility] Comment on above: Order Comment: Leelee l Red Cell Population Performed By: #### L [id number] ####[facility] ([facility])[address] [place] [address] MONOCYTES (10*3/UL) IN BLOOD BY CALCUATION 2.00 10*3/uL High 0.10-1.00 [facility] Comment on above: Order Comment: Leelee l Red Cell Population Performed By: #### L [id number] ####[facility] ([facility])[address] [place] [address] MONOCYTES/100 LEUKOCYTES IN BLOOD BY MANUAL COUNT 15 % High 5-12 [facility] Comment on above: Order Comment: Leelee l Red Cell Population Performed By: #### L [id number] ####[facility] [place] [address] NEUTROPHILS (10*3/UL) IN BLOOD BY CALCULATION 8.9 10*3/uL High 1.6-7.6 [facility] Comment on above: Order Comment: Leelee l Red Cell Population Performed By: #### L [id number] ####[facility] [place] [address] SEGEMENTED NEUTROPHILS/100 LEUKOCYTES BY MANUAL COUNT 67 % Normal 40-72 [facility] Comment on above: Order Comment: Leelee l Red Cell Population Performed By: #### L [id number] ####[facility] [place] [address] 30on 05-27-2025 30 Normal [facility] 30 Normal [facility] BASIC METABOLIC PANELon - Anion gap [Moles/Vol] 10 mmol/L Normal 7-20 [facility] Comment on above: Performed By: #### L [id number] ####[facility] [place] [address] Calcium [Mass/Vol] 8.0 mg/dL Low 8.6-10.3 [facility] Comment on above: Performed By: #### L [id number] ####[facility] ([facility])[address] [place] [address] Chloride [Moles/Vol] 101 mmol/L Normal 98-107 [facility] Comment on above: Performed By: #### L [id number] ####[facility] ([facility])[address] [place] [address] CO2 [Moles/Vol] 28 mmol/L Normal 21-31 [facility] Comment on above: Performed By: #### L [id number] ####[facility] ([facility])[address] [place] [address] Creatinine [Mass/Vol] 0.65 mg/dL Low 0.70-1.30 [facility] Comment on above: Performed By: #### L [id number] ####[facility] ([facility])[address] [place] [address] GLOMERULAR FILTRATION RATE ML/MIN/1.73 SQ M.PREDICTED 97.7 mL/min/1.73m*2 Normal >60.0 [facility] Comment on above: Result Comment: The [facility]???s estimated glomerular filtration rate (eGFR) will no [...] of individuals. Performed By: #### L [id number] ####[facility] ([facility])[address] [place] [address] Glucose [Mass/Vol] 95 mg/dL Normal 70-100 [facility] Comment on above: Performed By: #### L [id number] ####[facility] ([facility])[address] [place] [address] Potassium [Moles/Vol] 3.6 mmol/L Normal 3.5-5.1 [facility] Comment on above: Performed By: #### L [id number] ####[facility] [place] [address] Sodium [Moles/Vol] 135 mmol/L Low 136-145 [facility] Comment on above: Performed By: #### L [id number] ####[facility] [place] [address] Urea nitrogen [Mass/Vol] 6 mg/dL Low 7-25 [facility] Comment on above: Performed By: #### L [id number] ####[facility] ([facility])[address] [place] [address] UREA NITROGEN/CREATININ E (MASS RATIO) IN SER/PLAS 9.2 Normal [facility] Comment on above: Performed By: #### L [id number] ####[facility] ([facility])[address] [place] [address] CBC WITH AUTO DIFFERENTIALon 05-27-2025 Erythrocyte distribution width (RBC) [Ratio] 15.3 % High 11.5-15.0 [facility] Comment on above: Performed By: #### L [id number] ####[facility] ([facility])[address] [place] [address] ERYTHROCYTE MEAN CORPUSCULAR HEMOGLOBIN CONCENTRATION (G/DL) BY AUTOMATED 33.8 g/dL Normal 32.0-35.0 [facility] Comment on above: Performed By: #### L [id number] ####[facility] ([facility])[address] [place] [address] Hematocrit (Bld) [Volume fraction] 26.9 % Low 39.0-50.0 [facility] Comment on above: Performed By: #### L [id number] ####[facility] ([facility])[address] [place] [address] Hemoglobin (Bld) [Mass/Vol] 9.1 g/dL Low 13.0-17.0 [facility] Comment on above: Performed By: #### L [id number] ####[facility] ([facility])[address] [place] [address] MCH (RBC) [Entitic mass] 31.0 pg Normal 27.0-33.0 [facility] Comment on above: Performed By: #### L [id number] ####[facility] ([facility])[address] [place] [address] MCV (RBC) [Entitic vol] 91.5 fL Normal 82.0-98.0 [facility] Comment on above: Performed By: #### L [id number] ####[facility] ([facility])[address] [place] [address] NRBC (PER 100 WBCS) BY AUTOMATED COUNT 0.0 % Normal 0 [facility] Comment on above: Performed By: #### L [id number] ####[facility] ([facility])[address] [place] [address] PLATELETS (10*3/UL) IN BLOOD AUTOMATED COUNT 366 10*3/uL Normal 150-400 [facility] Comment on above: Performed By: #### L [id number] ####[facility] ([facility])[address] [place] [address] RBC (Bld) [#/Vol] 2.94 10*6/uL Low 4.20-5.70 [facility] Comment on above: Performed By: #### L [id number] ####[facility] ([facility])[address] [place] [address] WBC (Bld) [#/Vol] 14.66 10*3/uL High 4.00-10.60 [facility] Comment on above: Performed By: #### L [id number] ####[facility] ([facility])[address] [place] [address] MAGNESIUMon 05-27-2025 Magnesium [Mass/Vol] 1.8 mg/dL Low 1.9-2.7 [facility] Comment on above: Performed By: #### L [id number] ####[facility] ([facility])[address] [place] [address] MANUAL DIFFERENTIALon 2024 BASOPHILS (10*3/UL) IN BLOOD BY CALCULATION 0.07 10*3/uL Normal 0.00-0.20 [facility] Comment on above: Performed By: #### L [id number] ####[facility] ([facility])[address] [place] [address] BASOPHILS/100 LEUKOCYTES IN BLOOD BY AUTOMATED COUNT 0.5 % Normal 0.0-1.0 [facility] Comment on above: Performed By: #### L [id number] ####[facility] ([facility])[address] [place] [address] EOSINOPHILS (10*3/UL) IN BLOOD BY CALCULATION 0.29 10*3/uL Normal 0.00-0.50 [facility] Comment on above: Performed By: #### L [id number] ####[facility] ([facility])[address] [place] [address] EOSINOPHILS/100 LEUKOCYTES IN BLOOD BY AUTOMATED COUNT 2.0 % Normal 0.0-6.0 [facility] Comment on above: Performed By: #### L [id number] ####[facility] ([facility])[address] [place] [address] IMMATURE GRANULOCYTES (10*3/UL) IN BLOOD BY CALCULATION 0.16 10*3/uL Normal 0.00-0.20 [facility] Comment on above: Performed By: #### L [id number] ####[facility] ([facility])[address] [place], [place] [address] IMMATURE GRANULOCYTES/100 LEUKOCYTES IN BLOOD BY AUTOMATED COUNT 1.1 % High 0.0-1.0 [facility] Comment on above: Performed By: #### L [id number] ####[facility] ([facility])[address] [place], [place] [address] LYMPHOCYTES (10*3/UL) IN BLOOD BY CALCULATION 2.62 10*3/uL Normal 1.20-4.00 [facility] Comment on above: Performed By: #### L [id number] ####[facility] ([facility])[address] [place] [address] LYMPHOCYTES/100 LEUKOCYTES IN BLOOD BY AUTOMATED COUNT 17.9 % Low 20.0-45.0 [facility] Comment on above: Performed By: #### L [id number] ####[facility] ([facility])[address] [place] [address] MONOCYTES (10*3/UL) IN BLOOD BY CALCUATION 1.57 10*3/uL High 0.10-1.00 [facility] Comment on above: Performed By: #### L [id number] ####[facility] [place] [address] MONOCYTES/100 LEUKOCYTES IN BLOOD BY AUTOMATED COUNT 10.7 % Normal 5.0-12.0 [facility] Comment on above: Performed By: #### L [id number] ####[facility] ([facility])[address] [place] [address] NEUTROPHILS (10*3/UL) IN BLOOD BY CALCULATION 9.9 10*3/uL High 1.6-7.6 [facility] Comment on above: Performed By: #### L [id number] ####[facility] ([facility])[address] [place] [address] NEUTROPHILS/100 LEUKOCYTES IN BLOOD BY AUTOMATED COUNT 67.8 % Normal 40.0-72.0 [facility] Comment on above: Performed By: #### L [id number] ####[facility] ([facility])[address] [place] [address] PHOSPHORUSon 05-27-2025 Magnesium [Mass/Vol] 2.4 mg/dL Low 2.5-5.0 [facility] Comment on above: Performed By: #### L [id number] ####[facility] ([facility])[address] [place] [address] 30on 05-26-2024 30 Normal [facility] BASIC METABOLIC PANELon 05-03 Anion gap [Moles/Vol] 11 mmol/L Normal 7-20 [facility] Comment on above: Performed By: #### L [id number] ####[facility] [place] [address] Calcium [Mass/Vol] 7.7 mg/dL Low 8.6-10.3 [facility] Comment on above: Performed By: #### L [id number] ####[facility] ([facility])[address] [place] [address] Chloride [Moles/Vol] 100 mmol/L Normal 98-107 [facility] Comment on above: Performed By: #### L [id number] ####[facility] [place] [address] CO2 [Moles/Vol] 28 mmol/L Normal 21-31 [facility] Comment on above: Performed By: #### L [id number] ####[facility] ([facility])[address] [place] [address] Creatinine [Mass/Vol] 0.67 mg/dL Low 0.70-1.30 [facility] Comment on above: Performed By: #### L [id number] ####[facility] ([facility])[address] [place] [address] GLOMERULAR FILTRATION RATE ML/MIN/1.73 SQ M.PREDICTED 96.8 mL/min/1.73m*2 Normal >60.0 [facility] Comment on above: Result Comment: The [facility]???s estimated glomerular filtration rate (eGFR) will no [...] of individuals. Performed By: #### L [id number] ####[facility] ([facility])[address] [place] [address] Glucose [Mass/Vol] 89 mg/dL Normal 70-100 [facility] Comment on above: Performed By: #### L [id number] ####[facility] ([facility])[address] [place] [address] Potassium [Moles/Vol] 3.5 mmol/L Normal 3.5-5.1 [facility] Comment on above: Performed By: #### L [id number] ####[facility] ([facility])[address] [place] [address] Sodium [Moles/Vol] 135 mmol/L Low 136-145 [facility] Comment on above: Performed By: #### L [id number] ####[facility] ([facility])[address] [place] [address] Urea nitrogen [Mass/Vol] 6 mg/dL Low 7-25 [facility] Comment on above: Performed By: #### L [id number] ####[facility] ([facility])[address] [place] [address] UREA NITROGEN/CREATININ E (MASS RATIO) IN SER/PLAS 9.0 Normal [facility] Comment on above: Performed By: #### L [id number] ####[facility] [place] [address] BLOOD CULTUREon 05-26-2025 Bacteria identified Cx Nom (Bld) No growth at 5 days Normal [facility] Comment on above: Order Comment: From a different site than #1. Performed By: #### L [id number] ####[facility] ([facility])[address] [place], [place] [address] CBC WITH AUTO DIFFERENTIALon 05-26-2025 Erythrocyte distribution width (RBC) [Ratio] 15.2 % High 11.5-15.0 [facility] Comment on above: Performed By: #### L [id number] ####[facility] ([facility])[address] [place] [address] ERYTHROCYTE MEAN CORPUSCULAR HEMOGLOBIN CONCENTRATION (G/DL) BY AUTOMATED 33.9 g/dL Normal 32.0-35.0 [facility] Comment on above: Performed By: #### L [id number] ####[facility] [place] [address] Hematocrit (Bld) [Volume fraction] 25.4 % Low 39.0-50.0 [facility] Comment on above: Performed By: #### L [id number] ####[facility] ([facility])[address] [place] [address] Hemoglobin (Bld) [Mass/Vol] 8.6 g/dL Low 13.0-17.0 [facility] Comment on above: Performed By: #### L [id number] ####[facility] ([facility])[address] [place] [address] MCH (RBC) [Entitic mass] 30.8 pg Normal 27.0-33.0 [facility] Comment on above: Performed By: #### L [id number] ####[facility] [place] [address] MCV (RBC) [Entitic vol] 91.0 fL Normal 82.0-98.0 [facility] Comment on above: Performed By: #### L [id number] ####[facility] [place] [address] NRBC (PER 100 WBCS) BY AUTOMATED COUNT 0.0 % Normal 0 [facility] Comment on above: Performed By: #### L [id number] ####[facility] [place] [address] PLATELETS (10*3/UL) IN BLOOD AUTOMATED COUNT 338 10*3/uL Normal 150-400 [facility] Comment on above: Performed By: #### L [id number] ####[facility] [place], [place] [address] RBC (Bld) [#/Vol] 2.79 10*6/uL Low 4.20-5.70 [facility] Comment on above: Performed By: #### L [id number] ####[facility] [place], [place] [address] WBC (Bld) [#/Vol] 15.82 10*3/uL High 4.00-10.60 [facility] Comment on above: Performed By: #### L [id number] ####[facility] [place] [address] CT ABDOMEN PELVIS W IV CONTR Kala 05-26-2025 CT ABDOMEN PELVIS W IV CONTRAST Invalid Interpretation Code [facility] LACTIC ACID WITH 4 HOUR REFL EXon 05-26-2025 LACTATE (MMOL/L) IN SER/PLAS 0.9 mmol/L Normal 0.5-2.2 [facility] Comment on above: Performed By: #### L [id number] ####[facility] ([facility])[address] [place] [address] MAGNESIUMon 05-26-2025 Magnesium [Mass/Vol] 1.8 mg/dL Low 1.9-2.7 [facility] Comment on above: Performed By: #### L [id number] ####[facility] ([facility])[address] [place] [address] MANUAL DIFFERENTIALon 2024 BASOPHILS (10*3/UL) IN BLOOD BY CALCULATION 0.11 10*3/uL Normal 0.00-0.20 [facility] Comment on above: Performed By: #### L [id number] ####[facility] ([facility])[address] [place] [address] BASOPHILS/100 LEUKOCYTES IN BLOOD BY AUTOMATED COUNT 0.7 % Normal 0.0-1.0 [facility] Comment on above: Performed By: #### L [id number] ####[facility] ([facility])[address] [place] [address] EOSINOPHILS (10*3/UL) IN BLOOD BY CALCULATION 0.21 10*3/uL Normal 0.00-0.50 [facility] Comment on above: Performed By: #### L [id number] ####[facility] ([facility])[address] [place] [address] EOSINOPHILS/100 LEUKOCYTES IN BLOOD BY AUTOMATED COUNT 1.3 % Normal 0.0-6.0 [facility] Comment on above: Performed By: #### L [id number] ####[facility] ([facility])[address] [place] [address] IMMATURE GRANULOCYTES (10*3/UL) IN BLOOD BY CALCULATION 0.21 10*3/uL High 0.00-0.20 [facility] Comment on above: Performed By: #### L [id number] ####[facility] ([facility])[address] [place] [address] IMMATURE GRANULOCYTES/100 LEUKOCYTES IN BLOOD BY AUTOMATED COUNT 1.3 % High 0.0-1.0 [facility] Comment on above: Performed By: #### L [id number] ####[facility] ([facility])[address] [place] [address] LYMPHOCYTES (10*3/UL) IN BLOOD BY CALCULATION 2.12 10*3/uL Normal 1.20-4.00 [facility] Comment on above: Performed By: #### L [id number] ####[facility] ([facility])[address] [place] [address] LYMPHOCYTES/100 LEUKOCYTES IN BLOOD BY AUTOMATED COUNT 13.4 % Low 20.0-45.0 [facility] Comment on above: Performed By: #### L [id number] ####[facility] ([facility])[address] [place] [address] MONOCYTES (10*3/UL) IN BLOOD BY CALCUATION 0.85 10*3/uL Normal 0.10-1.00 [facility] Comment on above: Performed By: #### L [id number] ####[facility] ([facility])[address] [place] [address] MONOCYTES/100 LEUKOCYTES IN BLOOD BY AUTOMATED COUNT 5.4 % Normal 5.0-12.0 [facility] Comment on above: Performed By: #### L [id number] ####[facility] ([facility])[address] [place] [address] NEUTROPHILS (10*3/UL) IN BLOOD BY CALCULATION 12.5 10*3/uL High 1.6-7.6 [facility] Comment on above: Performed By: #### L [id number] ####[facility] ([facility])[address] [place] [address] NEUTROPHILS/100 LEUKOCYTES IN BLOOD BY AUTOMATED COUNT 79.2 % High 40.0-72.0 [facility] Comment on above: Performed By: #### L [id number] ####[facility] [place] [address] PLASMA CELLS/100 LEUKOCYTES IN BLOOD 0 % Normal 0 [facility] Comment on above: Performed By: #### L [id number] ####[facility] [place] [address] PLATELETS GIANT PRESENCE IN BLOOD BY LIGHT MICROSCOPY Present Normal [facility] Comment on above: Performed By: #### L [id number] ####[facility] ([facility])[address] [place] [address] VARIANT LYMPHOCYTES (10*3/UL) IN BLOOD BY CALCULATION 0.00 10*3/uL Normal 0.00 [facility] Comment on above: Performed By: #### L [id number] ####[facility] ([facility])[address] [place] [address] VARIANT LYMPHOCYTES/100 LEUKOCYTES IN BLOOD CELLAVISION 0.0 % Normal 0.0-0.0 [facility] Comment on above: Performed By: #### L [id number] ####[facility] ([facility])[address] [place] [address] PHOSPHORUSon 05-26-2025 Magnesium [Mass/Vol] 2.5 mg/dL Normal 2.5-5.0 [facility] Comment on above: Performed By: #### L [id number] ####[facility] ([facility])[address] [place] [address] BASIC METABOLIC PANELon 05-03 Anion gap [Moles/Vol] 11 mmol/L Normal 7-20 [facility] Comment on above: Performed By: #### L [id number] ####[facility] ([facility])[address] [place] [address] Calcium [Mass/Vol] 7.7 mg/dL Low 8.6-10.3 [facility] Comment on above: Performed By: #### L [id number] ####[facility] [place] [address] Chloride [Moles/Vol] 101 mmol/L Normal 98-107 [facility] [place] Comment on above: Performed By: #### L [id number] ####[facility] [place] [address] CO2 [Moles/Vol] 28 mmol/L Normal 21-31 [facility] Comment on above: Performed By: #### L [id number] ####[facility] ([facility])[address] [place] [address] Creatinine [Mass/Vol] 0.74 mg/dL Normal 0.70-1.30 [facility] [place] Comment on above: Performed By: #### L [id number] ####[facility] ([facility])[address] [place] [address] GLOMERULAR FILTRATION RATE ML/MIN/1.73 SQ M.PREDICTED 93.9 mL/min/1.73m*2 Normal >60.0 [facility] [place] Comment on above: Result Comment: The [facility] [place]???s estimated glomerular filtration rate (eGFR) will no [...] of individuals. Performed By: #### L [id number] ####[facility] ([facility])[address] [place] [address] Glucose [Mass/Vol] 94 mg/dL Normal 70-100 [facility] Comment on above: Performed By: #### L [id number] ####[facility] ([facility])[address] [place] [address] Potassium [Moles/Vol] 3.5 mmol/L Normal 3.5-5.1 [facility] [place] Comment on above: Performed By: #### L [id number] ####[facility] ([facility])[address] [place] [address] Sodium [Moles/Vol] 136 mmol/L Normal 136-145 [facility] Comment on above: Performed By: #### L [id number] ####[facility] ([facility])[address] [place] [address] Urea nitrogen [Mass/Vol] 8 mg/dL Normal 7-25 [facility] [place] Comment on above: Performed By: #### L [id number] ####[facility] ([facility])[address] [place] [address] UREA NITROGEN/CREATININ E (MASS RATIO) IN SER/PLAS 10.8 Normal [facility] [place] Comment on above: Performed By: #### L [id number] ####[facility] [place] [address] CBC WITH AUTO DIFFERENTIALon 05-25-2025 Erythrocyte distribution width (RBC) [Ratio] 15.1 % High 11.5-15.0 [facility] [place] Comment on above: Performed By: #### L [id number] ####[facility] ([facility])[address] [place] [address] ERYTHROCYTE MEAN CORPUSCULAR HEMOGLOBIN CONCENTRATION (G/DL) BY AUTOMATED 34.5 g/dL Normal 32.0-35.0 [facility] [place] Comment on above: Performed By: #### L [id number] ####[facility] ([facility])[address] [place] [address] Hematocrit (Bld) [Volume fraction] 26.7 % Low 39.0-50.0 [facility] [place] Comment on above: Performed By: #### L [id number] ####[facility] [place] [address] Hemoglobin (Bld) [Mass/Vol] 9.2 g/dL Low 13.0-17.0 [facility] [place] Comment on above: Performed By: #### L [id number] ####[facility] [place] [address] MCH (RBC) [Entitic mass] 31.4 pg Normal 27.0-33.0 [facility] [place] Comment on above: Performed By: #### L [id number] ####[facility] ([facility])[address] [place] [address] MCV (RBC) [Entitic vol] 91.1 fL Normal 82.0-98.0 [facility] [place] Comment on above: Performed By: #### L [id number] ####[facility] ([facility])[address] [place] [address] NRBC (PER 100 WBCS) BY AUTOMATED COUNT 0.0 % Normal 0 [facility] [place] Comment on above: Performed By: #### L [id number] ####[facility] ([facility])[address] [place] [address] PLATELETS (10*3/UL) IN BLOOD AUTOMATED COUNT 352 10*3/uL Normal 150-400 [facility] [place] Comment on above: Performed By: #### L [id number] ####[facility] ([facility])[address] [place] [address] RBC (Bld) [#/Vol] 2.93 10*6/uL Low 4.20-5.70 [facility] Comment on above: Performed By: #### L [id number] ####[facility] ([facility])[address] [place] [address] WBC (Bld) [#/Vol] 18.52 10*3/uL High 4.00-10.60 [facility] Comment on above: Performed By: #### L [id number] ####[facility] ([facility])[address] [place] [address] MAGNESIUMon 05-25-2025 Magnesium [Mass/Vol] 1.8 mg/dL Low 1.9-2.7 [facility] [place] Comment on above: Performed By: #### L [id number] ####[facility] ([facility])[address] [place] [address] MANUAL DIFFERENTIALon 2024 BASOPHILS (10*3/UL) IN BLOOD BY CALCULATION 0.06 10*3/uL Normal 0.00-0.20 [facility] [place] Comment on above: Performed By: #### L [id number] ####[facility] ([facility] [place] [address] BASOPHILS/100 LEUKOCYTES IN BLOOD BY AUTOMATED COUNT 0.3 % Normal 0.0-1.0 [facility] [place] Comment on above: Performed By: #### L [id number] ####[facility] ([facility])[address] [place] [address] EOSINOPHILS (10*3/UL) IN BLOOD BY CALCULATION 0.33 10*3/uL Normal 0.00-0.50 [facility] [place] Comment on above: Performed By: #### L [id number] ####[facility] ([facility])[address] [place] [address] EOSINOPHILS/100 LEUKOCYTES IN BLOOD BY AUTOMATED COUNT 1.8 % Normal 0.0-6.0 [facility] [place] Comment on above: Performed By: #### L [id number] ####[facility] ([facility])[address] [place] [address] IMMATURE GRANULOCYTES (10*3/UL) IN BLOOD BY CALCULATION 0.20 10*3/uL Normal 0.00-0.20 [facility] [place] Comment on above: Performed By: #### L [id number] ####[facility] ([facility])[address] [place] [address] IMMATURE GRANULOCYTES/100 LEUKOCYTES IN BLOOD BY AUTOMATED COUNT 1.1 % High 0.0-1.0 [facility] [place] Comment on above: Performed By: #### L [id number] ####[facility] ([facility])[address] [place] [address] LYMPHOCYTES (10*3/UL) IN BLOOD BY CALCULATION 3.30 10*3/uL Normal 1.20-4.00 [facility] [place] Comment on above: Performed By: #### L [id number] ####[facility] ([facility])[address] [place] [address] LYMPHOCYTES/100 LEUKOCYTES IN BLOOD BY AUTOMATED COUNT 17.8 % Low 20.0-45.0 [facility] [place] Comment on above: Performed By: #### L [id number] ####[facility] ([facility])[address] [place] [address] MONOCYTES (10*3/UL) IN BLOOD BY CALCUATION 1.87 10*3/uL High 0.10-1.00 [facility] [place] Comment on above: Performed By: #### L [id number] ####[facility] ([facility])[address] [place] [address] MONOCYTES/100 LEUKOCYTES IN BLOOD BY AUTOMATED COUNT 10.1 % Normal 5.0-12.0 [facility] [place] Comment on above: Performed By: #### L [id number] ####[facility] ([facility])[address] [place] [address] NEUTROPHILS (10*3/UL) IN BLOOD BY CALCULATION 12.8 10*3/uL High 1.6-7.6 [facility] [place] Comment on above: Performed By: #### L [id number] ####[facility] ([facility])[address] [place] [address] NEUTROPHILS/100 LEUKOCYTES IN BLOOD BY AUTOMATED COUNT 68.9 % Normal 40.0-72.0 [facility] [place] Comment on above: Performed By: #### L [id number] ####[facility] ([facility])[address] [place] [address] PHOSPHORUSon 05-25-2025 Magnesium [Mass/Vol] 2.3 mg/dL Low 2.5-5.0 [facility] [place] Comment on above: Performed By: #### L [id number] ####[facility] ([facility])[address] [place] [address] POCT GLUCOSE METER UNSOLICIT ED RESULTSon 05-25-2025 Glucose [Mass/Vol] 132 mg/dL High 70-105 [facility] Comment on above: Order Comment: Waive d Testing in the ED is performed under the ED CLIA certificate #[id number]. Result Comment: srab ee Performed By: #### L [id number] ####[facility] ([facility])[address] [place] [address] 30on 05-24-2025 30 The patient is Moder ately Stable - Low risk of patient condition declining or worsening The patient's goals for the shift include comfort The clinical goals for the shift include stbale vitals, comfort Normal [facility] [place] 30 Normal [facility] [place] BASIC METABOLIC PANELon 08-2 Anion gap [Moles/Vol] 9 mmol/L Normal 7-20 [facility] [place] Comment on above: Performed By: #### L [id number] ####[facility] ([facility])[address] [place] [address] Calcium [Mass/Vol] 7.7 mg/dL Low 8.6-10.3 [facility] Comment on above: Performed By: #### L [id number] ####[facility] ([facility])[address] [place] [address] Chloride [Moles/Vol] 101 mmol/L Normal 98-107 [facility] [place] Comment on above: Performed By: #### L [id number] ####[facility] ([facility])[address] [place] [address] CO2 [Moles/Vol] 31 mmol/L Normal 21-31 [facility] Comment on above: Performed By: #### L [id number] ####[facility] ([facility])[address] [place] [address] Creatinine [Mass/Vol] 0.86 mg/dL Normal 0.70-1.30 [facility] [place] Comment on above: Performed By: #### L [id number] ####[facility] ([facility])[address] [facility] [address] GLOMERULAR FILTRATION RATE ML/MIN/1.73 SQ M.PREDICTED 89.7 mL/min/1.73m*2 Normal >60.0 [facility] [place] Comment on above: Result Comment: The [facility] [place]???s estimated glomerular filtration rate (eGFR) will no [...] of individuals. Performed By: #### L [id number] ####[facility] ([facility])[address] [place] [address] Glucose [Mass/Vol] 97 mg/dL Normal 70-100 [facility] Comment on above: Performed By: #### L [id number] ####[facility] ([facility])[address] [place] [address] Potassium [Moles/Vol] 3.1 mmol/L Low 3.5-5.1 [facility] [place] Comment on above: Performed By: #### L [id number] ####[facility] ([facility])[address] [place] [address] Sodium [Moles/Vol] 138 mmol/L Normal 136-145 [facility] Comment on above: Performed By: #### L [id number] ####[facility] ([facility])[address] [place] [address] Urea nitrogen [Mass/Vol] 12 mg/dL Normal 7-25 [facility] [place] Comment on above: Performed By: #### L [id number] ####[facility] ([facility])[address] [place] [address] UREA NITROGEN/CREATININ E (MASS RATIO) IN SER/PLAS 14.0 Normal [facility] [place] Comment on above: Performed By: #### L [id number] ####[facility] ([facility])[address] [place] [address] CBC WITH AUTO DIFFERENTIALon 05-24-2025 Basophils (Bld) [#/Vol] 0.03 10*3/uL Normal 0.00-0.20 [facility] [place] Comment on above: Performed By: #### L [id number] ####[facility] ([facility])[address] [place] [address] Basophils/100 WBC (Bld) 0.2 % Normal 0.0-1.0 [facility] [place] Comment on above: Performed By: #### L [id number] ####[facility] ([facility])[address] [place] [address] Eosinophils (Bld) [#/Vol] 0.45 10*3/uL Normal 0.00-0.50 [facility] [place] Comment on above: Performed By: #### L [id number] ####[facility] ([facility])[address] [place] [address] Eosinophils/100 WBC (Bld) 2.9 % Normal 0.0-6.0 [facility] [place] Comment on above: Performed By: #### L [id number] ####[facility] [place] [address] Erythrocyte distribution width (RBC) [Ratio] 15.6 % High 11.5-15.0 [facility] [place] Comment on above: Performed By: #### L [id number] ####[facility] ([facility])[address] [place] [address] ERYTHROCYTE MEAN CORPUSCULAR HEMOGLOBIN CONCENTRATION (G/DL) BY AUTOMATED 32.9 g/dL Normal 32.0-35.0 [facility] [place] Comment on above: Performed By: #### L [id number] ####[facility] ([facility])[address] [place] [address] Hematocrit (Bld) [Volume fraction] 25.2 % Low 39.0-50.0 [facility] [place] Comment on above: Performed By: #### L [id number] ####[facility] [place] [address] Hemoglobin (Bld) [Mass/Vol] 8.3 g/dL Low 13.0-17.0 [facility] [place] Comment on above: Performed By: #### L [id number] ####[facility] ([facility])[address] [place] [address] Immature granulocytes (Bld) [#/Vol] 0.24 10*3/uL High 0.00-0.20 [facility] [place] Comment on above: Performed By: #### L [id number] ####[facility] ([facility])[address] [place] [address] Immature granulocytes/100 WBC (Bld) 1.5 % High 0.0-1.0 [facility] [place] Comment on above: Performed By: #### L [id number] ####[facility] ([facility])[address] [place] [address] Lymphocytes (Bld) [#/Vol] 2.38 10*3/uL Normal 1.20-4.00 [facility] [place] Comment on above: Performed By: #### L [id number] ####[facility] ([facility])[address] [place] [address] Lymphocytes/100 WBC (Bld) 15.3 % Low 20.0-45.0 [facility] [place] Comment on above: Performed By: #### L [id number] ####[facility] ([facility])[address] [place] [address] MCH (RBC) [Entitic mass] 30.5 pg Normal 27.0-33.0 [facility] [place] Comment on above: Performed By: #### L [id number] ####[facility] ([facility])[address] [place] [address] MCV (RBC) [Entitic vol] 92.6 fL Normal 82.0-98.0 [facility] [place] Comment on above: Performed By: #### L [id number] ####[facility] ([facility])[address] [place] [address] Monocytes (Bld) [#/Vol] 1.43 10*3/uL High 0.10-1.00 [facility] [place] Comment on above: Performed By: #### L [id number] ####[facility] ([facility])[address] [place] [address] Monocytes/100 WBC (Bld) 9.2 % Normal 5.0-12.0 [facility] [place] Comment on above: Performed By: #### L [id number] ####[facility] ([facility])[address] [place] [address] Neutrophils (Bld) [#/Vol] 10.98 10*3/uL High 1.60-7.60 [facility] [place] Comment on above: Performed By: #### L [id number] ####[facility] ([facility])[address] [place] [address] Neutrophils/100 WBC (Bld) 70.9 % Normal 40.0-72.0 [facility] [place] Comment on above: Performed By: #### L [id number] ####[facility] ([facility])[address] [place] [address] NRBC (PER 100 WBCS) BY AUTOMATED COUNT 0.0 % Normal 0 [facility] [place] Comment on above: Performed By: #### L [id number] ####[facility] ([facility])[address] [place] [address] PLATELETS (10*3/UL) IN BLOOD AUTOMATED COUNT 330 10*3/uL Normal 150-400 [facility] [place] Comment on above: Performed By: #### L [id number] ####[facility] ([facility])[address] [place] [address] RBC (Bld) [#/Vol] 2.72 10*6/uL Low 4.20-5.70 [facility] Comment on above: Performed By: #### L [id number] ####[facility] ([facility])[address] [place] [address] WBC (Bld) [#/Vol] 15.51 10*3/uL High 4.00-10.60 [facility] Comment on above: Performed By: #### L [id number] ####[facility] [place] [address] MAGNESIUMon 05-24-2025 Magnesium [Mass/Vol] 1.8 mg/dL Low 1.9-2.7 [facility] [place] Comment on above: Performed By: #### L [id number] ####[facility] ([facility])[address] [place] [address] PHOSPHORUSon 05-24-2025 Magnesium [Mass/Vol] 2.7 mg/dL Normal 2.5-5.0 [facility] [place] Comment on above: Performed By: #### L [id number] ####[facility] ([facility])[address] [place] [address] 30on 05-23-2025 30 The patient is Moder ately Stable - Low risk of patient condition declining or worsening The patient's goals for the shift include comfort The clinical goals for the shift include vss Normal [facility] [place] 30 Normal [facility] [place] BASIC METABOLIC PANELon 05-03 Anion gap [Moles/Vol] 9 mmol/L Normal 7-20 [facility] [place] Comment on above: Performed By: #### L [id number] ####[facility] ([facility])[address] [place] [address] Calcium [Mass/Vol] 8.0 mg/dL Low 8.6-10.3 [facility] Comment on above: Performed By: #### L [id number] ####[facility] ([facility])[address] [place] [address] Chloride [Moles/Vol] 102 mmol/L Normal 98-107 [facility] [place] Comment on above: Performed By: #### L [id number] ####[facility] [place] [address] CO2 [Moles/Vol] 29 mmol/L Normal 21-31 [facility] Comment on above: Performed By: #### L [id number] ####[facility] ([facility])[address] [place] [address] Creatinine [Mass/Vol] 0.86 mg/dL Normal 0.70-1.30 [facility] [place] Comment on above: Performed By: #### L [id number] ####[facility] ([facility])[address] [place] [address] GLOMERULAR FILTRATION RATE ML/MIN/1.73 SQ M.PREDICTED 89.7 mL/min/1.73m*2 Normal >60.0 [facility] [place] Comment on above: Result Comment: The [facility] [place]???s estimated glomerular filtration rate (eGFR) will no [...] of individuals. Performed By: #### L [id number] ####[facility] ([facility])[address] [place] [address] Glucose [Mass/Vol] 95 mg/dL Normal 70-100 [facility] Comment on above: Performed By: #### L [id number] ####[facility] ([facility])[address] [place] [address] Potassium [Moles/Vol] 3.4 mmol/L Low 3.5-5.1 [facility] [place] Comment on above: Performed By: #### L [id number] ####[facility] ([facility])[address] [place] [address] Sodium [Moles/Vol] 137 mmol/L Normal 136-145 [facility] Comment on above: Performed By: #### L [id number] ####[facility] ([facility])[address] [place] [address] Urea nitrogen [Mass/Vol] 14 mg/dL Normal 7-25 [facility] [place] Comment on above: Performed By: #### L [id number] ####[facility] ([facility])[address] [place] [address] UREA NITROGEN/CREATININ E (MASS RATIO) IN SER/PLAS 16.3 Normal [facility] [place] Comment on above: Performed By: #### L [id number] ####[facility] ([facility])[address] [place] [address] CBC WITH AUTO DIFFERENTIALon 05-23-2025 Erythrocyte distribution width (RBC) [Ratio] 15.4 % High 11.5-15.0 [facility] [place] Comment on above: Performed By: #### L [id number] ####[facility] ([facility])[address] [place] [address] ERYTHROCYTE MEAN CORPUSCULAR HEMOGLOBIN CONCENTRATION (G/DL) BY AUTOMATED 33.6 g/dL Normal 32.0-35.0 [facility] [place] Comment on above: Performed By: #### L [id number] ####[facility] ([facility])[address] [place] [address] Hematocrit (Bld) [Volume fraction] 25.0 % Low 39.0-50.0 [facility] [place] Comment on above: Performed By: #### L [id number] ####[facility] ([facility])[address] [place] [address] Hemoglobin (Bld) [Mass/Vol] 8.4 g/dL Low 13.0-17.0 [facility] [place] Comment on above: Performed By: #### L [id number] ####[facility] ([facility])[address] [place] [address] MCH (RBC) [Entitic mass] 30.7 pg Normal 27.0-33.0 [facility] [place] Comment on above: Performed By: #### L [id number] ####[facility] ([facility])[address] [place] [address] MCV (RBC) [Entitic vol] 91.2 fL Normal 82.0-98.0 [facility] [place] Comment on above: Performed By: #### L [id number] ####[facility] ([facility])[address] [place] [address] NRBC (PER 100 WBCS) BY AUTOMATED COUNT 0.0 % Normal 0 [facility] [place] Comment on above: Performed By: #### L [id number] ####[facility] ([facility])[address] [place] [address] PLATELETS (10*3/UL) IN BLOOD AUTOMATED COUNT 309 10*3/uL Normal 150-400 [facility] [place] Comment on above: Performed By: #### L [id number] ####[facility] ([facility])[address] [place] [address] RBC (Bld) [#/Vol] 2.74 10*6/uL Low 4.20-5.70 [facility] Comment on above: Performed By: #### L [id number] ####[facility] ([facility])[address] [place] [address] WBC (Bld) [#/Vol] 18.82 10*3/uL High 4.00-10.60 [facility] Comment on above: Performed By: #### L [id number] ####[facility] ([facility])[address] [place] [address] MAGNESIUMon 05-23-2025 Magnesium [Mass/Vol] 1.9 mg/dL Normal 1.9-2.7 [facility] [place] Comment on above: Performed By: #### L [id number] ####[facility] ([facility])[address] [place] [address] MANUAL DIFFERENTIALon 2024 BASOPHILS (10*3/UL) IN BLOOD BY CALCULATION 0.04 10*3/uL Normal 0.00-0.20 [facility] [place] Comment on above: Performed By: #### L [id number] ####[facility] ([facility])[address] [place] [address] BASOPHILS/100 LEUKOCYTES IN BLOOD BY AUTOMATED COUNT 0.2 % Normal 0.0-1.0 [facility] [place] Comment on above: Performed By: #### L [id number] ####[facility] [facility] ([facility])[address] [place] [address] EOSINOPHILS (10*3/UL) IN BLOOD BY CALCULATION 0.45 10*3/uL Normal 0.00-0.50 [facility] Comment on above: Performed By: #### L [id number] ####[facility] ([facility])[address] [place] [address] EOSINOPHILS/100 LEUKOCYTES IN BLOOD BY AUTOMATED COUNT 2.4 % Normal 0.0-6.0 [facility] Comment on above: Performed By: #### L [id number] ####[facility] ([facility])[address] [place] [address] IMMATURE GRANULOCYTES (10*3/UL) IN BLOOD BY CALCULATION 0.23 10*3/uL High 0.00-0.20 [facility] Comment on above: Performed By: #### L [id number] ####[facility] ([facility])[address] [place] [address] IMMATURE GRANULOCYTES/100 LEUKOCYTES IN BLOOD BY AUTOMATED COUNT 1.2 % High 0.0-1.0 [facility] Comment on above: Performed By: #### L [id number] ####[facility] ([facility])[address] [place] [address] LYMPHOCYTES (10*3/UL) IN BLOOD BY CALCULATION 2.03 10*3/uL Normal 1.20-4.00 [facility] Comment on above: Performed By: #### L [id number] ####[facility] ([facility])[address] [place] [address] LYMPHOCYTES/100 LEUKOCYTES IN BLOOD BY AUTOMATED COUNT 10.8 % Low 20.0-45.0 [facility] Comment on above: Performed By: #### L [id number] ####[facility] ([facility])[address] [place] [address] MONOCYTES (10*3/UL) IN BLOOD BY CALCUATION 1.79 10*3/uL High 0.10-1.00 [facility] Comment on above: Performed By: #### L [id number] ####[facility] ([facility])[address] [place] [address] MONOCYTES/100 LEUKOCYTES IN BLOOD BY AUTOMATED COUNT 9.5 % Normal 5.0-12.0 [facility] Comment on above: Performed By: #### L [id number] ####[facility] ([facility])[address] [place] [address] NEUTROPHILS (10*3/UL) IN BLOOD BY CALCULATION 14.3 10*3/uL High 1.6-7.6 [facility] Comment on above: Performed By: #### L [id number] ####[facility] [place] [address] NEUTROPHILS/100 LEUKOCYTES IN BLOOD BY AUTOMATED COUNT 75.9 % High 40.0-72.0 [facility] Comment on above: Performed By: #### L [id number] ####[facility] ([facility])[address] [place] [address] PHOSPHORUSon 05-23-2025 Magnesium [Mass/Vol] 3.5 mg/dL Normal 2.5-5.0 [facility] Comment on above: Performed By: #### L [id number] ####[facility] ([facility])[address] [place] [address] 30on 05-22-2025 30 The patient is Moder ately Stable - Low risk of patient condition declining or worsening The patient's goals for the shift include comfort The clinical goals for the shift include vss comfort Normal [facility] 30 Normal [facility] BASIC METABOLIC PANELon 05-03 Anion gap [Moles/Vol] 11 mmol/L Normal 7-20 [facility] Comment on above: Performed By: #### L [id number] ####[facility] [place] [address] Calcium [Mass/Vol] 8.5 mg/dL Low 8.6-10.3 [facility] Comment on above: Performed By: #### L [id number] ####[facility] ([facility])[address] [place] [address] Chloride [Moles/Vol] 99 mmol/L Normal 98-107 [facility] Comment on above: Performed By: #### L [id number] ####[facility] ([facility])[address] [place] [address] CO2 [Moles/Vol] 29 mmol/L Normal 21-31 [facility] Comment on above: Performed By: #### L [id number] ####[facility] ([facility])[address] [place] [address] Creatinine [Mass/Vol] 1.42 mg/dL High 0.70-1.30 [facility] Comment on above: Performed By: #### L [id number] ####[facility] ([facility])[address] [place] [address] GLOMERULAR FILTRATION RATE ML/MIN/1.73 SQ M.PREDICTED 51.2 mL/min/1.73m*2 Low >60.0 [facility] Comment on above: Result Comment: The [facility]???s estimated glomerular filtration rate (eGFR) will no [...] of individuals. Performed By: #### L [id number] ####[facility] ([facility])[address] [place] [address] Glucose [Mass/Vol] 112 mg/dL High 70-100 [facility] Comment on above: Performed By: #### L [id number] ####[facility] ([facility])[address] [place] [address] Potassium [Moles/Vol] 3.5 mmol/L Normal 3.5-5.1 [facility] Comment on above: Performed By: #### L [id number] ####[facility] ([facility])[address] [place] [address] Sodium [Moles/Vol] 135 mmol/L Low 136-145 [facility] Comment on above: Performed By: #### L [id number] ####[facility] ([facility])[address] [facility] [place] [address] Urea nitrogen [Mass/Vol] 15 mg/dL Normal 7-25 [facility] Comment on above: Performed By: #### L [id number] ####[facility] ([facility])[address] [place] [address] UREA NITROGEN/CREATININ E (MASS RATIO) IN SER/PLAS 10.6 Normal [facility] Comment on above: Performed By: #### L [id number] ####[facility] ([facility])[address] [place] [address] CBC WITH AUTO DIFFERENTIALon 05-22-2025 Erythrocyte distribution width (RBC) [Ratio] 15.4 % High 11.5-15.0 [facility] Comment on above: Performed By: #### L [id number] ####[facility] ([facility])[address] [place] [address] ERYTHROCYTE MEAN CORPUSCULAR HEMOGLOBIN CONCENTRATION (G/DL) BY AUTOMATED 34.0 g/dL Normal 32.0-35.0 [facility] Comment on above: Performed By: #### L [id number] ####[facility] ([facility])[address] [place] [address] Hematocrit (Bld) [Volume fraction] 25.3 % Low 39.0-50.0 [facility] Comment on above: Performed By: #### L [id number] ####[facility] ([facility])[address] [place] [address] Hemoglobin (Bld) [Mass/Vol] 8.6 g/dL Low 13.0-17.0 [facility] Comment on above: Performed By: #### L [id number] ####[facility] ([facility])[address] [place] [address] MCH (RBC) [Entitic mass] 31.0 pg Normal 27.0-33.0 [facility] Comment on above: Performed By: #### L [id number] ####[facility] ([facility])[address] [place] [address] MCV (RBC) [Entitic vol] 91.3 fL Normal 82.0-98.0 [facility] Comment on above: Performed By: #### L [id number] ####[facility] [place] [address] NRBC (PER 100 WBCS) BY AUTOMATED COUNT 0.0 % Normal 0 [facility] Comment on above: Performed By: #### L [id number] ####[facility] ([facility])[address] [place] [address] PLATELETS (10*3/UL) IN BLOOD AUTOMATED COUNT 308 10*3/uL Normal 150-400 [facility] Comment on above: Performed By: #### L [id number] ####[facility] ([facility])[address] [place] [address] RBC (Bld) [#/Vol] 2.77 10*6/uL Low 4.20-5.70 [facility] Comment on above: Performed By: #### L [id number] ####[facility] ([facility])[address] [place] [address] WBC (Bld) [#/Vol] 19.94 10*3/uL High 4.00-10.60 [facility] Comment on above: Performed By: #### L [id number] ####[facility] ([facility])[address] [place] [address] CONSULTon 05-22-2025 CONSULT Normal [facility] CONSULT Normal [facility] MAGNESIUMon 05-22-2025 Magnesium [Mass/Vol] 1.9 mg/dL Normal 1.9-2.7 [facility] Comment on above: Performed By: #### L [id number] ####[facility] ([facility])[address] [place] [address] MANUAL DIFFERENTIALon 2024 BASOPHILS (10*3/UL) IN BLOOD BY CALCULATION 0.06 10*3/uL Normal 0.00-0.20 [facility] Comment on above: Performed By: #### L [id number] ####[facility] ([facility])[address] [place] [address] BASOPHILS/100 LEUKOCYTES IN BLOOD BY AUTOMATED COUNT 0.3 % Normal 0.0-1.0 [facility] Comment on above: Performed By: #### L [id number] ####[facility] ([facility])[address] [place] [address] EOSINOPHILS (10*3/UL) IN BLOOD BY CALCULATION 0.40 10*3/uL Normal 0.00-0.50 [facility] Comment on above: Performed By: #### L [id number] ####[facility] ([facility])[address] [place] [address] EOSINOPHILS/100 LEUKOCYTES IN BLOOD BY AUTOMATED COUNT 2.0 % Normal 0.0-6.0 [facility] Comment on above: Performed By: #### L [id number] ####[facility] ([facility])[address] [place] [address] IMMATURE GRANULOCYTES (10*3/UL) IN BLOOD BY CALCULATION 0.34 10*3/uL High 0.00-0.20 [facility] Comment on above: Performed By: #### L [id number] ####[facility] ([facility])[address] [place] [address] IMMATURE GRANULOCYTES/100 LEUKOCYTES IN BLOOD BY AUTOMATED COUNT 1.7 % High 0.0-1.0 [facility] Comment on above: Performed By: #### L [id number] ####[facility] ([facility])[address] [place] [address] LYMPHOCYTES (10*3/UL) IN BLOOD BY CALCULATION 1.85 10*3/uL Normal 1.20-4.00 [facility] Comment on above: Performed By: #### L [id number] ####[facility] ([facility])[address] [place] [address] LYMPHOCYTES/100 LEUKOCYTES IN BLOOD BY AUTOMATED COUNT 9.3 % Low 20.0-45.0 [facility] Comment on above: Performed By: #### L [id number] ####[facility] ([facility])[address] [place] [address] MONOCYTES (10*3/UL) IN BLOOD BY CALCUATION 2.09 10*3/uL High 0.10-1.00 [facility] Comment on above: Performed By: #### L [id number] ####[facility] ([facility])[address] [place] [address] MONOCYTES/100 LEUKOCYTES IN BLOOD BY AUTOMATED COUNT 10.5 % Normal 5.0-12.0 [facility] Comment on above: Performed By: #### L [id number] ####[facility] ([facility])[address] [place] [address] NEUTROPHILS (10*3/UL) IN BLOOD BY CALCULATION 15.2 10*3/uL High 1.6-7.6 [facility] Comment on above: Performed By: #### L [id number] ####[facility] ([facility])[address] [place], [place] [address] NEUTROPHILS/100 LEUKOCYTES IN BLOOD BY AUTOMATED COUNT 76.2 % High 40.0-72.0 [facility] Comment on above: Performed By: #### L [id number] ####[facility] ([facility])[address] [place] [address] PHOSPHORUSon 05-22-2025 Magnesium [Mass/Vol] 4.0 mg/dL Normal 2.5-5.0 [facility] Comment on above: Performed By: #### L [id number] ####[facility] ([facility])[address] [place] [address] BASIC METABOLIC PANELon 05-03 Anion gap [Moles/Vol] 14 mmol/L Normal 7-20 [facility] Comment on above: Performed By: #### L [id number] ####[facility] ([facility])[address] [place] [address] Calcium [Mass/Vol] 8.1 mg/dL Low 8.6-10.3 [facility] Comment on above: Performed By: #### L [id number] ####[facility] [place] [address] Chloride [Moles/Vol] 99 mmol/L Normal 98-107 [facility] Comment on above: Performed By: #### L [id number] ####[facility] [place] [address] CO2 [Moles/Vol] 27 mmol/L Normal 21-31 [facility] Comment on above: Performed By: #### L [id number] ####[facility] ([facility])[address] [place] [address] Creatinine [Mass/Vol] 0.77 mg/dL Normal 0.70-1.30 [facility] Comment on above: Performed By: #### L [id number] ####[facility] ([facility])[address] [place] [address] GLOMERULAR FILTRATION RATE ML/MIN/1.73 SQ M.PREDICTED 92.8 mL/min/1.73m*2 Normal >60.0 [facility] Comment on above: Result Comment: The [facility]???s estimated glomerular filtration rate (eGFR) will no [...] of individuals. Performed By: #### L [id number] ####[facility] ([facility])[address] [place] [address] Glucose [Mass/Vol] 97 mg/dL Normal 70-100 [facility] Comment on above: Performed By: #### L [id number] ####[facility] ([facility])[address] [place] [address] Potassium [Moles/Vol] 3.7 mmol/L Normal 3.5-5.1 [facility] Comment on above: Performed By: #### L [id number] ####[facility] ([facility])[address] [place] [address] Sodium [Moles/Vol] 136 mmol/L Normal 136-145 [facility] Comment on above: Performed By: #### L [id number] ####[facility] ([facility])[address] [place] [address] Urea nitrogen [Mass/Vol] 11 mg/dL Normal 7-25 [facility] Comment on above: Performed By: #### L [id number] ####[facility] ([facility])[address] [place] [address] UREA NITROGEN/CREATININ E (MASS RATIO) IN SER/PLAS 14.3 Normal [facility] Comment on above: Performed By: #### L [id number] ####[facility] ([facility])[address] [place] [address] BLOOD CULTUREon 05-21-2025 Bacteria identified Cx Nom (Bld) No growth at 5 days Normal [facility] Comment on above: Performed By: #### L [id number] ####[facility] ([facility])[address] [place] [address] Order Comment: From a different site than #1. CBC WITH AUTO DIFFERENTIALon 05-21-2025 Erythrocyte distribution width (RBC) [Ratio] 15.1 % High 11.5-15.0 [facility] Comment on above: Performed By: #### L [id number] ####[facility] ([facility])[address] [place] [address] ERYTHROCYTE MEAN CORPUSCULAR HEMOGLOBIN CONCENTRATION (G/DL) BY AUTOMATED 33.8 g/dL Normal 32.0-35.0 [facility] Comment on above: Performed By: #### L [id number] ####[facility] ([facility])[address] [place] [address] Hematocrit (Bld) [Volume fraction] 27.8 % Low 39.0-50.0 [facility] Comment on above: Performed By: #### L [id number] ####[facility] ([facility])[address] [place] [address] Hemoglobin (Bld) [Mass/Vol] 9.4 g/dL Low 13.0-17.0 [facility] Comment on above: Performed By: #### L [id number] ####[facility] ([facility])[address] [place] [address] MCH (RBC) [Entitic mass] 31.5 pg Normal 27.0-33.0 [facility] Comment on above: Performed By: #### L [id number] ####[facility] ([facility])[address] [place] [address] MCV (RBC) [Entitic vol] 93.3 fL Normal 82.0-98.0 [facility] Comment on above: Performed By: #### L [id number] ####[facility] [place] [address] NRBC (PER 100 WBCS) BY AUTOMATED COUNT 0.0 % Normal 0 [facility] Comment on above: Performed By: #### L [id number] ####[facility] [place] [address] PLATELETS (10*3/UL) IN BLOOD AUTOMATED COUNT 285 10*3/uL Normal 150-400 [facility] Comment on above: Performed By: #### L [id number] ####[facility] [place] [address] RBC (Bld) [#/Vol] 2.98 10*6/uL Low 4.20-5.70 [facility] Comment on above: Performed By: #### L [id number] ####[facility] [place] [address] WBC (Bld) [#/Vol] 19.68 10*3/uL High 4.00-10.60 [facility] Comment on above: Performed By: #### L [id number] ####[facility] ([facility])[address] [place] [address] CONSULTon 05-21-2025 CONSULT Normal [facility] CT ABDOMEN PELVIS W IV CONTR Kala 05-21-2025 CT ABDOMEN PELVIS W IV CONTRAST Invalid Interpretation Code [facility] Comment on above: Order Comment: With double oral contrast and longer than standard wait prior to imaging MAGNESIUMon 05-21-2025 Magnesium [Mass/Vol] 1.8 mg/dL Low 1.9-2.7 [facility] Comment on above: Performed By: #### L [id number] ####[facility] ([facility])[address] [place] [address] MANUAL DIFFERENTIALon 2024 BASOPHILS (10*3/UL) IN BLOOD BY CALCULATION 0.00 10*3/uL Normal 0.00-0.20 [facility] Comment on above: Performed By: #### L [id number] ####[facility] ([facility])[address] [place] [address] BASOPHILS/100 LEUKOCYTES IN BLOOD BY AUTOMATED COUNT 0.0 % Normal 0.0-1.0 [facility] Comment on above: Performed By: #### L [id number] ####[facility] ([facility])[address] [place] [address] EOSINOPHILS (10*3/UL) IN BLOOD BY CALCULATION 0.14 10*3/uL Normal 0.00-0.50 [facility] Comment on above: Performed By: #### L [id number] ####[facility] ([facility])[address] [place] [address] EOSINOPHILS/100 LEUKOCYTES IN BLOOD BY AUTOMATED COUNT 0.7 % Normal 0.0-6.0 [facility] Comment on above: Performed By: #### L [id number] ####[facility] ([facility])[address] [place] [address] LYMPHOCYTES (10*3/UL) IN BLOOD BY CALCULATION 1.30 10*3/uL Normal 1.20-4.00 [facility] Comment on above: Performed By: #### L [id number] ####[facility] ([facility])[address] [place] [address] LYMPHOCYTES/100 LEUKOCYTES IN BLOOD BY AUTOMATED COUNT 6.6 % Low 20.0-45.0 [facility] Comment on above: Performed By: #### L [id number] ####[facility] ([facility])[address] [place] [address] METAMYELOCYTES (10*3/UL) IN BLOOD BY CALCULATION 0.14 10*3/uL High 0.00 [facility] Comment on above: Performed By: #### L [id number] ####[facility] ([facility])[address] [place] [address] METAMYELOCYTES/100 LEUKOCYTES IN BLOOD CELLAVISION 0.7 % High 0.0-0.0 [facility] Comment on above: Performed By: #### L [id number] ####[facility] [place] [address] MONOCYTES (10*3/UL) IN BLOOD BY CALCUATION 1.55 10*3/uL High 0.10-1.00 [facility] Comment on above: Performed By: #### L [id number] ####[facility] ([facility])[address] [place] [address] MONOCYTES/100 LEUKOCYTES IN BLOOD BY AUTOMATED COUNT 7.9 % Normal 5.0-12.0 [facility] Comment on above: Performed By: #### L [id number] ####[facility] ([facility])[address] [place] [address] MYELOCYTES (10*3/UL) IN BLOOD BY CALCULATION 0.14 10*3/uL High 0.00 [facility] Comment on above: Performed By: #### L [id number] ####[facility] ([facility])[address] [place] [address] MYELOCYTES/100 LEUKOCYTES IN BLOOD CELLAVISION 0.7 % High 0.0-0.0 [facility] Comment on above: Performed By: #### L [id number] ####[facility] ([facility])[address] [place] [address] NEUTROPHILS (10*3/UL) IN BLOOD BY CALCULATION 16.4 10*3/uL High 1.6-7.6 [facility] Comment on above: Performed By: #### L [id number] ####[facility] ([facility])[address] [place] [address] NEUTROPHILS/100 LEUKOCYTES IN BLOOD BY AUTOMATED COUNT 83.4 % High 40.0-72.0 [facility] Comment on above: Performed By: #### L [id number] ####[facility] ([facility])[address] [place] [address] PLASMA CELLS/100 LEUKOCYTES IN BLOOD 0 % Normal 0 [facility] Comment on above: Performed By: #### L [id number] ####[facility] ([facility])[address] [place] [address] PLATELETS GIANT PRESENCE IN BLOOD BY LIGHT MICROSCOPY Present Normal [facility] Comment on above: Performed By: #### L [id number] ####[facility] ([facility])[address] [place] [address] VARIANT LYMPHOCYTES (10*3/UL) IN BLOOD BY CALCULATION 0.00 10*3/uL Normal 0.00 [facility] Comment on above: Performed By: #### L [id number] ####[facility] ([facility])[address] [place] [address] VARIANT LYMPHOCYTES/100 LEUKOCYTES IN BLOOD CELLAVISION 0.0 % Normal 0.0-0.0 [facility] Comment on above: Performed By: #### L [id number] ####[facility] ([facility])[address] [place] [address] MRSA/MSSA DNA NASALon 2024 MRSA DNA Negative Normal Negative [facility] Comment on above: Order Comment: Testi ng [...] preclude nasal colonization. Performed By: #### L [id number] ####[facility] ([facility])[address] [place] [address] MSSA DNA Negative Normal Negative [facility] Comment on above: Order Comment: Testi ng [...] preclude nasal colonization. Performed By: #### L [id number] ####[facility] ([facility])[address] [id number] [facility] [address] PHOSPHORUSon 05-21-2025 Magnesium [Mass/Vol] 4.2 mg/dL Normal 2.5-5.0 [facility] Comment on above: Performed By: #### L [id number] ####[facility] ([facility])[address] [place] [address] URINALYSISon 05-21-2025 BILIRUBIN, TOTAL PRESENCE IN URINE Negative Normal Negative [facility] Comment on above: Performed By: #### L [id number] ####[facility] ([facility])[address] [place] [address] Clarity (U) Clear Normal Clear, Other [facility] Comment on above: Performed By: #### L [id number] ####[facility] ([facility])[address] [place] [address] Color (U) Yellow Normal Yellow, Light Yellow, Colorless [facility] Comment on above: Performed By: #### L [id number] ####[facility] ([facility])[address] [place] [place] [address] GLUCOSE (MG/DL) IN URINE Normal Normal Normal [facility] Comment on above: Performed By: #### L [id number] ####[facility] ([facility])[address] [place] [place] [address] HEMOGLOBIN PRESENCE IN URINE Small Abnormal Negative [facility] Comment on above: Performed By: #### L [id number] ####[facility] ([facility])[address] [place] [address] Ketones Ql (U) 40 mg/dL Abnormal Negative [facility] Comment on above: Performed By: #### L [id number] ####[facility] [place] [address] LEUKOCYTE ESTERASE PRESENCE IN URINE BY TEST STRIP Moderate Abnormal Negative [facility] Comment on above: Performed By: #### L [id number] ####[facility] [place] [address] NITRITE PRESENCE IN URINE Negative Normal Negative [facility] Comment on above: Performed By: #### L [id number] ####[facility] ([facility])[address] [place] [address] pH (U) 5.5 [pH] Normal 5.0-8.0 [facility] Comment on above: Performed By: #### L [id number] ####[facility] ([facility])[address] [place] [address] Protein (U) [Mass/Vol] 30 mg/dL Abnormal Negative [facility] Comment on above: Performed By: #### L [id number] ####[facility] [place] [address] Specific gravity (U) [Rel density] 1.050 High 1.010-1.03 0 [facility] Comment on above: Performed By: #### L [id number] ####[facility] ([facility])[address] [place] [address] UROBILINOGEN (MG/DL) IN URINE Normal Normal Normal [facility] Comment on above: Performed By: #### L [id number] ####[facility] [place] [address] URINALYSIS MICROSCOPICon RBC (#/HPF) IN URINE SEDIMENT 0-2 Normal None Seen, 0-2 [facility] Comment on above: Order Comment: Micro scopic unspun. Less than 3mL received Performed By: #### L [id number] ####[facility] ([facility])[address] [place] [address] SQUAMOUS EPITHELIAL CELLS (#/LPF) IN URINE SEDIMENT Occasional Normal None Seen, Occasional , Few [facility] Comment on above: Order Comment: Micro scopic unspun. Less than 3mL received Performed By: #### L [id number] ####[facility] ([facility])[address] [place] [address] WBC (LEUKOCYTE) (#/HPF) IN URINE SEDIMENT 6-10 Abnormal None Seen, 0-2 [facility] Comment on above: Order Comment: Micro scopic unspun. Less than 3mL received Performed By: #### L [id number] ####[facility] ([facility])[address] [place] [address] URINE CULTURE, ROUTINEon Bacteria identified Cx Nom (U) No growth at 48 hours Normal [facility] Comment on above: Performed By: #### L [id number] ####[facility] [place] [address] Bacteria identified Cx Nom (U) <10,000 CFU/ML No Significant Growth Normal [facility] Comment on above: Performed By: #### L [id number] ####[facility] ([facility])[address] [place] [address] 30on 05-20-2025 30 The patient is Moder ately Stable - Low risk of patient condition declining or worsening The patient's goals for the shift include comfort, safety The clinical goals for the shift include stable vitals, comfort, pain control Normal [facility] BASIC METABOLIC PANELon 05-02 Anion gap [Moles/Vol] 11 mmol/L Normal - [facility] Comment on above: Performed By: #### L [id number] ####[facility] ([facility])[address] [place] [address] Calcium [Mass/Vol] 7.6 mg/dL Low 8.6-10.3 [facility] Comment on above: Performed By: #### L [id number] ####[facility] ([facility])[address] [place] [address] Chloride [Moles/Vol] 100 mmol/L Normal 98-107 [facility] Comment on above: Performed By: #### L [id number] ####[facility] [place] [address] CO2 [Moles/Vol] 28 mmol/L Normal 21-31 [facility] Comment on above: Performed By: #### L [id number] ####[facility] [place] [address] Creatinine [Mass/Vol] 0.54 mg/dL Low 0.70-1.30 [facility] Comment on above: Performed By: #### L [id number] ####[facility] ([facility])[address] [place] [address] GLOMERULAR FILTRATION RATE ML/MIN/1.73 SQ M.PREDICTED 103.3 mL/min/1.73m*2 Normal >60.0 [facility] Comment on above: Result Comment: The [facility]???s estimated glomerular filtration rate (eGFR) will no [...] of individuals. Performed By: #### L [id number] ####[facility] [place] [address] Glucose [Mass/Vol] 79 mg/dL Normal 70-100 [facility] Comment on above: Performed By: #### L [id number] ####[facility] [place] [address] Potassium [Moles/Vol] 3.5 mmol/L Normal 3.5-5.1 [facility] Comment on above: Performed By: #### L [id number] ####[facility] [place] [address] Sodium [Moles/Vol] 135 mmol/L Low 136-145 [facility] Comment on above: Performed By: #### L [id number] ####[facility] ([facility] [place] [address] Urea nitrogen [Mass/Vol] 9 mg/dL Normal 7-25 [facility] Comment on above: Performed By: #### L [id number] ####[facility] ([facility])[address] [place] [address] UREA NITROGEN/CREATININ E (MASS RATIO) IN SER/PLAS 16.7 Normal [facility] Comment on above: Performed By: #### L [id number] ####[facility] ([facility])[address] [place] [address] CBC WITH AUTO DIFFERENTIALon 05-20-2025 Erythrocyte distribution width (RBC) [Ratio] 14.6 % Normal 11.5-15.0 [facility] Comment on above: Performed By: #### L [id number] ####[facility] ([facility])[address] [place] [address] ERYTHROCYTE MEAN CORPUSCULAR HEMOGLOBIN CONCENTRATION (G/DL) BY AUTOMATED 34.0 g/dL Normal 32.0-35.0 [facility] Comment on above: Performed By: #### L [id number] ####[facility] ([facility])[address] [place] [address] Hematocrit (Bld) [Volume fraction] 25.6 % Low 39.0-50.0 [facility] Comment on above: Performed By: #### L [id number] ####[facility] [place] [address] Hemoglobin (Bld) [Mass/Vol] 8.7 g/dL Low 13.0-17.0 [facility] Comment on above: Performed By: #### L [id number] ####[facility] [place] [address] MCH (RBC) [Entitic mass] 31.0 pg Normal 27.0-33.0 [facility] Comment on above: Performed By: #### L [id number] ####[facility] ([facility])[address] [place] [address] MCV (RBC) [Entitic vol] 91.1 fL Normal 82.0-98.0 [facility] Comment on above: Performed By: #### L [id number] ####[facility] ([facility])[address] [place] [address] NRBC (PER 100 WBCS) BY AUTOMATED COUNT 0.0 % Normal 0 [facility] Comment on above: Performed By: #### L [id number] ####[facility] ([facility])[address] [place] [address] PLATELETS (10*3/UL) IN BLOOD AUTOMATED COUNT 219 10*3/uL Normal 150-400 [facility] Comment on above: Performed By: #### L [id number] ####[facility] ([facility])[address] [place] [address] RBC (Bld) [#/Vol] 2.81 10*6/uL Low 4.20-5.70 [facility] Comment on above: Performed By: #### L [id number] ####[facility] ([facility])[address] [place] [address] WBC (Bld) [#/Vol] 14.31 10*3/uL High 4.00-10.60 [facility] Comment on above: Performed By: #### L [id number] ####[facility] ([facility])[address] [place] [address] CT ABDOMEN PELVIS W IV CONTR Kala 05-20-2025 CT ABDOMEN PELVIS W IV CONTRAST Normal [facility] CTA CHEST W IV CONTRASTon CTA CHEST W IV CONTRAST Invalid Interpretation Code [facility] DSon 05-20-2025 DS Normal [facility] MAGNESIUMon 05-20-2025 Magnesium [Mass/Vol] 1.6 mg/dL Low 1.9-2.7 [facility] Comment on above: Performed By: #### L [id number] ####[facility] ([facility])[address] [place] [address] MANUAL DIFFERENTIALon 2024 BASOPHILS (10*3/UL) IN BLOOD BY CALCULATION 0.04 10*3/uL Normal 0.00-0.20 [facility] Comment on above: Performed By: #### L [id number] ####[facility] ([facility])[address] [place] [address] BASOPHILS/100 LEUKOCYTES IN BLOOD BY AUTOMATED COUNT 0.3 % Normal 0.0-1.0 [facility] Comment on above: Performed By: #### L [id number] ####[facility] ([facility])[address] [place] [address] EOSINOPHILS (10*3/UL) IN BLOOD BY CALCULATION 0.72 10*3/uL High 0.00-0.50 [facility] Comment on above: Performed By: #### L [id number] ####[facility] ([facility])[address] [place] [address] EOSINOPHILS/100 LEUKOCYTES IN BLOOD BY AUTOMATED COUNT 5.0 % Normal 0.0-6.0 [facility] Comment on above: Performed By: #### L [id number] ####[facility] ([facility])[address] [place] [address] IMMATURE GRANULOCYTES (10*3/UL) IN BLOOD BY CALCULATION 0.23 10*3/uL High 0.00-0.20 [facility] Comment on above: Performed By: #### L [id number] ####[facility] ([facility])[address] [place] [address] IMMATURE GRANULOCYTES/100 LEUKOCYTES IN BLOOD BY AUTOMATED COUNT 1.6 % High 0.0-1.0 [facility] Comment on above: Performed By: #### L [id number] ####[facility] ([facility])[address] [place] [address] LYMPHOCYTES (10*3/UL) IN BLOOD BY CALCULATION 2.68 10*3/uL Normal 1.20-4.00 [facility] Comment on above: Performed By: #### L [id number] ####[facility] ([facility])[address] [place] [address] LYMPHOCYTES/100 LEUKOCYTES IN BLOOD BY AUTOMATED COUNT 18.7 % Low 20.0-45.0 [facility] Comment on above: Performed By: #### L [id number] ####[facility] ([facility])[address] [place] [address] MONOCYTES (10*3/UL) IN BLOOD BY CALCUATION 1.57 10*3/uL High 0.10-1.00 [facility] Comment on above: Performed By: #### L [id number] ####[facility] ([facility])[address] [place] [address] MONOCYTES/100 LEUKOCYTES IN BLOOD BY AUTOMATED COUNT 11.0 % Normal 5.0-12.0 [facility] Comment on above: Performed By: #### L [id number] ####[facility] ([facility])[address] [place] [address] NEUTROPHILS (10*3/UL) IN BLOOD BY CALCULATION 9.1 10*3/uL High 1.6-7.6 [facility] Comment on above: Performed By: #### L [id number] ####[facility] ([facility])[address] [place] [address] NEUTROPHILS/100 LEUKOCYTES IN BLOOD BY AUTOMATED COUNT 63.4 % Normal 40.0-72.0 [facility] Comment on above: Performed By: #### L [id number] ####[facility] ([facility])[address] [place], [place] [address] PHOSPHORUSon 05-20-2025 Magnesium [Mass/Vol] 2.7 mg/dL Normal 2.5-5.0 [facility] Comment on above: Performed By: #### L [id number] ####[facility] ([facility])[address] [place] [address] URINALYSISon 05-20-2025 BILIRUBIN, TOTAL PRESENCE IN URINE Negative Normal Negative [facility] Comment on above: Order Comment: Micro scopics not performed on urines with negative chemical reactions unless requested on original order. Performed By: #### L [id number] ####[facility] ([facility])[address] [place] [address] Clarity (U) Clear Normal Clear [facility] Comment on above: Order Comment: Micro scopics not performed on urines with negative chemical reactions unless requested on original order. Performed By: #### L [id number] ####[facility] ([facility])[address] [place] [address] Color (U) Yellow Normal Colorless, Yellow, Light-[place] ow [facility] Comment on above: Order Comment: Micro scopics not performed on urines with negative chemical reactions unless requested on original order. Performed By: #### L [id number] ####[facility] ([facility])[address] [place] [address] GLUCOSE (MG/DL) IN URINE Normal Normal Normal [facility] Comment on above: Order Comment: Micro scopics not performed on urines with negative chemical reactions unless requested on original order. Performed By: #### L [id number] ####[facility] ([facility])[address] [place] [address] HEMOGLOBIN PRESENCE IN URINE Negative Normal Negative [facility] Comment on above: Order Comment: Micro scopics not performed on urines with negative chemical reactions unless requested on original order. Performed By: #### L [id number] ####[facility] ([facility])[address] [place] [address] Ketones Ql (U) Negative Normal Negative [facility] Comment on above: Order Comment: Micro scopics not performed on urines with negative chemical reactions unless requested on original order. Performed By: #### L [id number] ####[facility] ([facility])[address] [place] [address] LEUKOCYTE ESTERASE PRESENCE IN URINE BY TEST STRIP Negative Normal Negative [facility] Comment on above: Order Comment: Micro scopics not performed on urines with negative chemical reactions unless requested on original order. Performed By: #### L [id number] ####[facility] ([facility])[address] [place] [address] NITRITE PRESENCE IN URINE Negative Normal Negative [facility] Comment on above: Order Comment: Micro scopics not performed on urines with negative chemical reactions unless requested on original order. Performed By: #### L [id number] ####[facility] ([facility])[address] [place] [address] pH (U) 5.0 [pH] Normal 5.0-8.0 [facility] Comment on above: Order Comment: Micro scopics not performed on urines with negative chemical reactions unless requested on original order. Performed By: #### L [id number] ####[facility] ([facility])[address] [place] [address] Protein (U) [Mass/Vol] Negative Normal Negative [facility] Comment on above: Order Comment: Micro scopics not performed on urines with negative chemical reactions unless requested on original order. Performed By: #### L [id number] ####[facility] ([facility])[address] [place] [address] Specific gravity (U) [Rel density] 1.000 Low 1.010-1.03 0 [facility] Comment on above: Order Comment: Micro scopics not performed on urines with negative chemical reactions unless requested on original order. Performed By: #### L [id number] ####[facility] ([facility])[address] [place] [address] UROBILINOGEN (MG/DL) IN URINE Normal Normal Normal [facility] Comment on above: Order Comment: Micro scopics not performed on urines with negative chemical reactions unless requested on original order. Performed By: #### L [id number] ####[facility] ([facility])[address] [place] [address] 30on 05-19-2025 30 The patient is Moder ately Stable - Low risk of patient condition declining or worsening The patient's goals for the shift include comfort, safety, participate in therapy, The clinical goals for the shift include get stronger, Vss, labs wnl, comfort Normal [facility] BASIC METABOLIC PANELon 08- Anion gap [Moles/Vol] 11 mmol/L Normal 7-20 [facility] Comment on above: Performed By: #### L [id number] ####[facility] ([facility])[address] [place] [address] Calcium [Mass/Vol] 7.6 mg/dL Low 8.6-10.3 [facility] Comment on above: Performed By: #### L [id number] ####[facility] ([facility])[address] [place] [address] Chloride [Moles/Vol] 101 mmol/L Normal 98-107 [facility] Comment on above: Performed By: #### L [id number] ####[facility] ([facility])[address] [place] [address] CO2 [Moles/Vol] 28 mmol/L Normal 21-31 [facility] Comment on above: Performed By: #### L [id number] ####[facility] ([facility])[address] [place] [address] Creatinine [Mass/Vol] 0.57 mg/dL Low 0.70-1.30 [facility] Comment on above: Performed By: #### L [id number] ####[facility] ([facility])[address] [place] [address] GLOMERULAR FILTRATION RATE ML/MIN/1.73 SQ M.PREDICTED 101.6 mL/min/1.73m*2 Normal >60.0 [facility] Comment on above: Result Comment: The [facility]???s estimated glomerular filtration rate (eGFR) will no [...] of individuals. Performed By: #### L [id number] ####[facility] ([facility])[address] [place] [address] Glucose [Mass/Vol] 74 mg/dL Normal 70-100 [facility] Comment on above: Performed By: #### L [id number] ####[facility] [place] [address] Potassium [Moles/Vol] 3.7 mmol/L Normal 3.5-5.1 [facility] Comment on above: Performed By: #### L [id number] ####[facility] [place] [address] Sodium [Moles/Vol] 136 mmol/L Normal 136-145 [facility] Comment on above: Performed By: #### L [id number] ####[facility] [place] [address] Urea nitrogen [Mass/Vol] 11 mg/dL Normal 7-25 [facility] Comment on above: Performed By: #### L [id number] ####[facility] [place] [address] UREA NITROGEN/CREATININ E (MASS RATIO) IN SER/PLAS 19.3 Normal [facility] Comment on above: Performed By: #### L [id number] ####[facility] [place] [address] CBC WITH AUTO DIFFERENTIALon 05-19-2025 Erythrocyte distribution width (RBC) [Ratio] 14.7 % Normal 11.5-15.0 [facility] Comment on above: Performed By: #### L [id number] ####[facility] [place] [address] ERYTHROCYTE MEAN CORPUSCULAR HEMOGLOBIN CONCENTRATION (G/DL) BY AUTOMATED 33.3 g/dL Normal 32.0-35.0 [facility] Comment on above: Performed By: #### L [id number] ####[facility] [place] [address] Hematocrit (Bld) [Volume fraction] 26.7 % Low 39.0-50.0 [facility] Comment on above: Performed By: #### L [id number] ####[facility] ([facility])[address] [place] [address] Hemoglobin (Bld) [Mass/Vol] 8.9 g/dL Low 13.0-17.0 [facility] Comment on above: Performed By: #### L [id number] ####[facility] ([facility])[address] [place] [address] MCH (RBC) [Entitic mass] 30.8 pg Normal 27.0-33.0 [facility] Comment on above: Performed By: #### L [id number] ####[facility] ([facility])[address] [place] [address] MCV (RBC) [Entitic vol] 92.4 fL Normal 82.0-98.0 [facility] Comment on above: Performed By: #### L [id number] ####[facility] ([facility])[address] [place] [address] NRBC (PER 100 WBCS) BY AUTOMATED COUNT 0.0 % Normal 0 [facility] Comment on above: Performed By: #### L [id number] ####[facility] ([facility])[address] [place] [address] PLATELETS (10*3/UL) IN BLOOD AUTOMATED COUNT 187 10*3/uL Normal 150-400 [facility] Comment on above: Performed By: #### L [id number] ####[facility] ([facility])[address] [place] [address] RBC (Bld) [#/Vol] 2.89 10*6/uL Low 4.20-5.70 [facility] Comment on above: Performed By: #### L [id number] ####[facility] [place] [address] WBC (Bld) [#/Vol] 14.21 10*3/uL High 4.00-10.60 [facility] Comment on above: Performed By: #### L [id number] ####[facility] ([facility])[address] [place] [address] MAGNESIUMon 05-19-2025 Magnesium [Mass/Vol] 1.6 mg/dL Low 1.9-2.7 [facility] Comment on above: Performed By: #### L [id number] ####[facility] ([facility])[address] [place] [address] MANUAL DIFFERENTIALon 2024 BASOPHILS (10*3/UL) IN BLOOD BY CALCULATION 0.03 10*3/uL Normal 0.00-0.20 [facility] Comment on above: Performed By: #### L [id number] ####[facility] ([facility])[address] [place] [address] BASOPHILS/100 LEUKOCYTES IN BLOOD BY AUTOMATED COUNT 0.2 % Normal 0.0-1.0 [facility] Comment on above: Performed By: #### L [id number] ####[facility] ([facility])[address] [place] [address] EOSINOPHILS (10*3/UL) IN BLOOD BY CALCULATION 0.87 10*3/uL High 0.00-0.50 [facility] Comment on above: Performed By: #### L [id number] ####[facility] ([facility])[address] [place] [address] EOSINOPHILS/100 LEUKOCYTES IN BLOOD BY AUTOMATED COUNT 6.1 % High 0.0-6.0 [facility] Comment on above: Performed By: #### L [id number] ####[facility] ([facility])[address] [place] [address] IMMATURE GRANULOCYTES (10*3/UL) IN BLOOD BY CALCULATION 0.18 10*3/uL Normal 0.00-0.20 [facility] Comment on above: Performed By: #### L [id number] ####[facility] ([facility] [place] [address] IMMATURE GRANULOCYTES/100 LEUKOCYTES IN BLOOD BY AUTOMATED COUNT 1.3 % High 0.0-1.0 [facility] Comment on above: Performed By: #### L [id number] ####[facility] ([facility])[address] [place] [address] LYMPHOCYTES (10*3/UL) IN BLOOD BY CALCULATION 2.64 10*3/uL Normal 1.20-4.00 [facility] Comment on above: Performed By: #### L [id number] ####[facility] ([facility])[address] [place] [address] LYMPHOCYTES/100 LEUKOCYTES IN BLOOD BY AUTOMATED COUNT 18.6 % Low 20.0-45.0 [facility] Comment on above: Performed By: #### L [id number] ####[facility] ([facility])[address] [place] [address] MONOCYTES (10*3/UL) IN BLOOD BY CALCUATION 1.68 10*3/uL High 0.10-1.00 [facility] Comment on above: Performed By: #### L [id number] ####[facility] ([facility])[address] [place], [place] [address] MONOCYTES/100 LEUKOCYTES IN BLOOD BY AUTOMATED COUNT 11.8 % Normal 5.0-12.0 [facility] Comment on above: Performed By: #### L [id number] ####[facility] ([facility])[address] [place] [address] NEUTROPHILS (10*3/UL) IN BLOOD BY CALCULATION 8.8 10*3/uL High 1.6-7.6 [facility] Comment on above: Performed By: #### L [id number] ####[facility] ([facility])[address] [place], [place] [address] NEUTROPHILS/100 LEUKOCYTES IN BLOOD BY AUTOMATED COUNT 62.0 % Normal 40.0-72.0 [facility] Comment on above: Performed By: #### L [id number] ####[facility] [place] [address] PHOSPHORUSon 05-19-2025 Magnesium [Mass/Vol] 2.7 mg/dL Normal 2.5-5.0 [facility] Comment on above: Performed By: #### L [id number] ####[facility] ([facility])[address] [place] [address] 30on 05-18-2025 30 The patient is Moder ately Stable - Low risk of patient condition declining or worsening The patient's goals for the shift include comfort and safety The clinical goals for the shift include increase strength, vss, comfort, labs wnl Normal [facility] 30 Normal [facility] BASIC METABOLIC PANELon 05-02 Anion gap [Moles/Vol] 8 mmol/L Normal 7-20 [facility] Comment on above: Performed By: #### L [id number] ####[facility] ([facility] [place] [address] Calcium [Mass/Vol] 7.4 mg/dL Low 8.6-10.3 [facility] Comment on above: Performed By: #### L [id number] ####[facility] ([facility] [place] [address] Chloride [Moles/Vol] 100 mmol/L Normal 98-107 [facility] Comment on above: Performed By: #### L [id number] ####[facility] ([facility] [place] [address] CO2 [Moles/Vol] 31 mmol/L Normal 21-31 [facility] Comment on above: Performed By: #### L [id number] ####[facility] ([facility] [place] [address] Creatinine [Mass/Vol] 0.54 mg/dL Low 0.70-1.30 [facility] Comment on above: Performed By: #### L [id number] ####[facility] ([facility])[address] [place] [address] GLOMERULAR FILTRATION RATE ML/MIN/1.73 SQ M.PREDICTED 103.3 mL/min/1.73m*2 Normal >60.0 [facility] Comment on above: Result Comment: The [facility]???s estimated glomerular filtration rate (eGFR) will no [...] of individuals. Performed By: #### L [id number] ####[facility] ([facility])[address] [place] [address] Glucose [Mass/Vol] 106 mg/dL High 70-100 [facility] Comment on above: Performed By: #### L [id number] ####[facility] ([facility])[address] [place] [address] Potassium [Moles/Vol] 3.4 mmol/L Low 3.5-5.1 [facility] Comment on above: Performed By: #### L [id number] ####[facility] ([facility])[address] [place] [address] Sodium [Moles/Vol] 136 mmol/L Normal 136-145 [facility] Comment on above: Performed By: #### L [id number] ####[facility] ([facility])[address] [place] [address] Urea nitrogen [Mass/Vol] 11 mg/dL Normal 7-25 [facility] Comment on above: Performed By: #### L [id number] ####[facility] ([facility])[address] [place] [address] UREA NITROGEN/CREATININ E (MASS RATIO) IN SER/PLAS 20.4 Normal [facility] Comment on above: Performed By: #### L [id number] ####[facility] ([facility])[address] [place] [address] CBC WITH AUTO DIFFERENTIALon 05-18-2025 Basophils (Bld) [#/Vol] 0.03 10*3/uL Normal 0.00-0.20 [facility] Comment on above: Performed By: #### L [id number] ####[facility] ([facility])[address] [place] [address] Basophils/100 WBC (Bld) 0.2 % Normal 0.0-1.0 [facility] Comment on above: Performed By: #### L [id number] ####[facility] ([facility])[address] [place] [address] Eosinophils (Bld) [#/Vol] 0.70 10*3/uL High 0.00-0.50 [facility] Comment on above: Performed By: #### L [id number] ####[facility] ([facility])[address] [place] [address] Eosinophils/100 WBC (Bld) 5.4 % Normal 0.0-6.0 [facility] Comment on above: Performed By: #### L [id number] ####[facility] ([facility] [place] [address] Erythrocyte distribution width (RBC) [Ratio] 14.6 % Normal 11.5-15.0 [facility] Comment on above: Performed By: #### L [id number] ####[facility] ([facility])[address] [place] [address] ERYTHROCYTE MEAN CORPUSCULAR HEMOGLOBIN CONCENTRATION (G/DL) BY AUTOMATED 33.9 g/dL Normal 32.0-35.0 [facility] Comment on above: Performed By: #### L [id number] ####[facility] ([facility])[address] [place] [address] Hematocrit (Bld) [Volume fraction] 24.5 % Low 39.0-50.0 [facility] Comment on above: Performed By: #### L [id number] ####[facility] ([facility])[address] [place] [address] Hemoglobin (Bld) [Mass/Vol] 8.3 g/dL Low 13.0-17.0 [facility] Comment on above: Performed By: #### L [id number] ####[facility] ([facility])[address] [place] [address] Immature granulocytes (Bld) [#/Vol] 0.10 10*3/uL Normal 0.00-0.20 [facility] Comment on above: Performed By: #### L [id number] ####[facility] ([facility])[address] [place] [address] Immature granulocytes/100 WBC (Bld) 0.8 % Normal 0.0-1.0 [facility] Comment on above: Performed By: #### L [id number] ####[facility] ([facility])[address] [place] [address] Lymphocytes (Bld) [#/Vol] 1.98 10*3/uL Normal 1.20-4.00 [facility] Comment on above: Performed By: #### L [id number] ####[facility] ([facility])[address] [place] [address] Lymphocytes/100 WBC (Bld) 15.3 % Low 20.0-45.0 [facility] Comment on above: Performed By: #### L [id number] ####[facility] ([facility])[address] [place] [address] MCH (RBC) [Entitic mass] 31.0 pg Normal 27.0-33.0 [facility] Comment on above: Performed By: #### L [id number] ####[facility] ([facility])[address] [place] [address] MCV (RBC) [Entitic vol] 91.4 fL Normal 82.0-98.0 [facility] Comment on above: Performed By: #### L [id number] ####[facility] ([facility])[address] [place] [address] Monocytes (Bld) [#/Vol] 1.37 10*3/uL High 0.10-1.00 [facility] Comment on above: Performed By: #### L [id number] ####[facility] ([facility])[address] [place] [address] Monocytes/100 WBC (Bld) 10.6 % Normal 5.0-12.0 [facility] Comment on above: Performed By: #### L [id number] ####[facility] ([facility])[address] [place] [address] Neutrophils (Bld) [#/Vol] 8.80 10*3/uL High 1.60-7.60 [facility] Comment on above: Performed By: #### L [id number] ####[facility] ([facility])[address] [place] [address] Neutrophils/100 WBC (Bld) 67.7 % Normal 40.0-72.0 [facility] Comment on above: Performed By: #### L [id number] ####[facility] ([facility])[address] [place] [address] NRBC (PER 100 WBCS) BY AUTOMATED COUNT 0.0 % Normal 0 [facility] Comment on above: Performed By: #### L [id number] ####[facility] ([facility])[address] [place] [address] PLATELETS (10*3/UL) IN BLOOD AUTOMATED COUNT 167 10*3/uL Normal 150-400 [facility] Comment on above: Performed By: #### L [id number] ####[facility] ([facility])[address] [place] [address] RBC (Bld) [#/Vol] 2.68 10*6/uL Low 4.20-5.70 [facility] Comment on above: Performed By: #### L [id number] ####[facility] ([facility])[address] [place] [address] WBC (Bld) [#/Vol] 12.98 10*3/uL High 4.00-10.60 [facility] Comment on above: Performed By: #### L [id number] ####[facility] ([facility])[address] [place] [address] CONSULTon 05-18-2025 CONSULT Normal [facility] MAGNESIUMon 05-18-2025 Magnesium [Mass/Vol] 1.6 mg/dL Low 1.9-2.7 [facility] Comment on above: Performed By: #### L [id number] ####[facility] ([facility])[address] [place] [address] PHOSPHORUSon 05-18-2025 Magnesium [Mass/Vol] 3.6 mg/dL Normal 2.5-5.0 [facility] Comment on above: Performed By: #### L [id number] ####[facility] ([facility])[address] [place] [address] 30on 05-17-2025 30 Normal [facility] BASIC METABOLIC PANELon 05-02 Anion gap [Moles/Vol] 9 mmol/L Normal 7-20 [facility] Comment on above: Performed By: #### L [id number] ####[facility] ([facility])[address] [place] [address] Calcium [Mass/Vol] 7.9 mg/dL Low 8.6-10.3 [facility] Comment on above: Performed By: #### L [id number] ####[facility] ([facility])[address] [place] [address] Chloride [Moles/Vol] 101 mmol/L Normal 98-107 [facility] Comment on above: Performed By: #### L [id number] ####[facility] ([facility])[address] [place] [address] CO2 [Moles/Vol] 29 mmol/L Normal 21-31 [facility] Comment on above: Performed By: #### L [id number] ####[facility] ([facility])[address] [place] [address] Creatinine [Mass/Vol] 0.57 mg/dL Low 0.70-1.30 [facility] Comment on above: Performed By: #### L [id number] ####[facility] ([facility])[address] [place] [address] GLOMERULAR FILTRATION RATE ML/MIN/1.73 SQ M.PREDICTED 101.6 mL/min/1.73m*2 Normal >60.0 [facility] Comment on above: Result Comment: The [facility]???s estimated glomerular filtration rate (eGFR) will no [...] of individuals. Performed By: #### L [id number] ####[facility] ([facility])[address] [place] [address] Glucose [Mass/Vol] 103 mg/dL High 70-100 [facility] Comment on above: Performed By: #### L [id number] ####[facility] ([facility])[address] [place] [address] Potassium [Moles/Vol] 3.6 mmol/L Normal 3.5-5.1 [facility] Comment on above: Performed By: #### L [id number] ####[facility] ([facility])[address] [place] [address] Sodium [Moles/Vol] 135 mmol/L Low 136-145 [facility] Comment on above: Performed By: #### L [id number] ####[facility] [place] [address] Urea nitrogen [Mass/Vol] 14 mg/dL Normal 7-25 [facility] Comment on above: Performed By: #### L [id number] ####[facility] ([facility])[address] [place] [address] UREA NITROGEN/CREATININ E (MASS RATIO) IN SER/PLAS 24.6 Normal [facility] Comment on above: Performed By: #### L [id number] ####[facility] [place] [address] CBC WITH AUTO DIFFERENTIALon 05-17-2025 Basophils (Bld) [#/Vol] 0.02 10*3/uL Normal 0.00-0.20 [facility] Comment on above: Performed By: #### L [id number] ####[facility] ([facility])[address] [place] [address] Basophils/100 WBC (Bld) 0.2 % Normal 0.0-1.0 [facility] Comment on above: Performed By: #### L [id number] ####[facility] ([facility])[address] [place] [address] Eosinophils (Bld) [#/Vol] 0.22 10*3/uL Normal 0.00-0.50 [facility] Comment on above: Performed By: #### L [id number] ####[facility] ([facility])[address] [place] [address] Eosinophils/100 WBC (Bld) 1.7 % Normal 0.0-6.0 [facility] Comment on above: Performed By: #### L [id number] ####[facility] ([facility])[address] [place] [address] Erythrocyte distribution width (RBC) [Ratio] 14.5 % Normal 11.5-15.0 [facility] Comment on above: Performed By: #### L [id number] ####[facility] ([facility])[address] [place] [address] ERYTHROCYTE MEAN CORPUSCULAR HEMOGLOBIN CONCENTRATION (G/DL) BY AUTOMATED 33.3 g/dL Normal 32.0-35.0 [facility] Comment on above: Performed By: #### L [id number] ####[facility] ([facility])[address] [place] [address] Hematocrit (Bld) [Volume fraction] 25.2 % Low 39.0-50.0 [facility] Comment on above: Performed By: #### L [id number] ####[facility] ([facility])[address] [place] [address] Hemoglobin (Bld) [Mass/Vol] 8.4 g/dL Low 13.0-17.0 [facility] Comment on above: Performed By: #### L [id number] ####[facility] ([facility])[address] [place] [address] Immature granulocytes (Bld) [#/Vol] 0.07 10*3/uL Normal 0.00-0.20 [facility] Comment on above: Performed By: #### L [id number] ####[facility] ([facility])[address] [place] [address] Immature granulocytes/100 WBC (Bld) 0.6 % Normal 0.0-1.0 [facility] Comment on above: Performed By: #### L [id number] ####[facility] [place] [address] Lymphocytes (Bld) [#/Vol] 1.46 10*3/uL Normal 1.20-4.00 [facility] Comment on above: Performed By: #### L [id number] ####[facility] [place] [address] Lymphocytes/100 WBC (Bld) 11.5 % Low 20.0-45.0 [facility] Comment on above: Performed By: #### L [id number] ####[facility] ([facility])[address] [place] [address] MCH (RBC) [Entitic mass] 30.4 pg Normal 27.0-33.0 [facility] Comment on above: Performed By: #### L [id number] ####[facility] ([facility])[address] [place] [address] MCV (RBC) [Entitic vol] 91.3 fL Normal 82.0-98.0 [facility] Comment on above: Performed By: #### L [id number] ####[facility] ([facility])[address] [place] [address] Monocytes (Bld) [#/Vol] 1.30 10*3/uL High 0.10-1.00 [facility] Comment on above: Performed By: #### L [id number] ####[facility] ([facility])[address] [place] [address] Monocytes/100 WBC (Bld) 10.2 % Normal 5.0-12.0 [facility] Comment on above: Performed By: #### L [id number] ####[facility] ([facility])[address] [place] [address] Neutrophils (Bld) [#/Vol] 9.65 10*3/uL High 1.60-7.60 [facility] Comment on above: Performed By: #### L [id number] ####[facility] ([facility])[address] [place] [address] Neutrophils/100 WBC (Bld) 75.8 % High 40.0-72.0 [facility] Comment on above: Performed By: #### L [id number] ####[facility] ([facility])[address] [place] [address] NRBC (PER 100 WBCS) BY AUTOMATED COUNT 0.0 % Normal 0 [facility] Comment on above: Performed By: #### L [id number] ####[facility] ([facility])[address] [place] [address] PLATELETS (10*3/UL) IN BLOOD AUTOMATED COUNT 149 10*3/uL Low 150-400 [facility] Comment on above: Performed By: #### L [id number] ####[facility] ([facility])[address] [place] [address] RBC (Bld) [#/Vol] 2.76 10*6/uL Low 4.20-5.70 [facility] Comment on above: Performed By: #### L [id number] ####[facility] ([facility])[address] [place] [address] WBC (Bld) [#/Vol] 12.72 10*3/uL High 4.00-10.60 [facility] Comment on above: Performed By: #### L [id number] ####[facility] ([facility])[address] [place] [address] MAGNESIUMon 05-17-2025 Magnesium [Mass/Vol] 1.6 mg/dL Low 1.9-2.7 [facility] Comment on above: Performed By: #### L [id number] ####[facility] ([facility])[address] [place] [address] PHOSPHORUSon 05-17-2025 Magnesium [Mass/Vol] 2.8 mg/dL Normal 2.5-5.0 [facility] Comment on above: Performed By: #### L [id number] ####[facility] ([facility])[address] [place] [address] 30on 05-16-2025 30 Normal [facility] BASIC METABOLIC PANELon 05-02 Anion gap [Moles/Vol] 8 mmol/L Normal 7-20 [facility] Comment on above: Performed By: #### L [id number] ####[facility] ([facility])[address] [place] [address] Calcium [Mass/Vol] 7.9 mg/dL Low 8.6-10.3 [facility] Comment on above: Performed By: #### L [id number] ####[facility] ([facility])[address] [place] [address] Chloride [Moles/Vol] 102 mmol/L Normal 98-107 [facility] Comment on above: Performed By: #### L [id number] ####[facility] ([facility])[address] [place] [address] CO2 [Moles/Vol] 31 mmol/L Normal 21-31 [facility] Comment on above: Performed By: #### L [id number] ####[facility] ([facility])[address] [place] [address] Creatinine [Mass/Vol] 0.65 mg/dL Low 0.70-1.30 [facility] Comment on above: Performed By: #### L [id number] ####[facility] ([facility])[address] [place] [address] GLOMERULAR FILTRATION RATE ML/MIN/1.73 SQ M.PREDICTED 97.7 mL/min/1.73m*2 Normal >60.0 [facility] Comment on above: Result Comment: The [facility]???s estimated glomerular filtration rate (eGFR) will no [...] of individuals. Performed By: #### L [id number] ####[facility] ([facility])[address] [place] [address] Glucose [Mass/Vol] 102 mg/dL High 70-100 [facility] Comment on above: Performed By: #### L [id number] ####[facility] ([facility])[address] [place] [address] Potassium [Moles/Vol] 3.8 mmol/L Normal 3.5-5.1 [facility] Comment on above: Performed By: #### L [id number] ####[facility] ([facility])[address] [place] [address] Sodium [Moles/Vol] 137 mmol/L Normal 136-145 [facility] Comment on above: Performed By: #### L [id number] ####[facility] ([facility])[address] [place] [address] Urea nitrogen [Mass/Vol] 13 mg/dL Normal 7-25 [facility] Comment on above: Performed By: #### L [id number] ####[facility] ([facility])[address] [place] [address] UREA NITROGEN/CREATININ E (MASS RATIO) IN SER/PLAS 20.0 Normal [facility] Comment on above: Performed By: #### L [id number] ####[facility] ([facility] [place] [address] CBC WITH AUTO DIFFERENTIALon 05-16-2025 Basophils (Bld) [#/Vol] 0.03 10*3/uL Normal 0.00-0.20 [facility] Comment on above: Performed By: #### L [id number] ####[facility] ([facility])[address] [place] [address] Basophils/100 WBC (Bld) 0.2 % Normal 0.0-1.0 [facility] Comment on above: Performed By: #### L [id number] ####[facility] ([facility])[address] [place] [address] Eosinophils (Bld) [#/Vol] 0.28 10*3/uL Normal 0.00-0.50 [facility] Comment on above: Performed By: #### L [id number] ####[facility] ([facility])[address] [place] [address] Eosinophils/100 WBC (Bld) 1.9 % Normal 0.0-6.0 [facility] Comment on above: Performed By: #### L [id number] ####[facility] ([facility] [place] [address] Erythrocyte distribution width (RBC) [Ratio] 14.3 % Normal 11.5-15.0 [facility] Comment on above: Performed By: #### L [id number] ####[facility] ([facility] [place] [address] ERYTHROCYTE MEAN CORPUSCULAR HEMOGLOBIN CONCENTRATION (G/DL) BY AUTOMATED 34.7 g/dL Normal 32.0-35.0 [facility] Comment on above: Performed By: #### L [id number] ####[facility] ([facility])[address] [place] [address] Hematocrit (Bld) [Volume fraction] 25.1 % Low 39.0-50.0 [facility] Comment on above: Performed By: #### L [id number] ####[facility] ([facility] [place] [address] Hemoglobin (Bld) [Mass/Vol] 8.7 g/dL Low 13.0-17.0 [facility] Comment on above: Performed By: #### L [id number] ####[facility] ([facility] [place] [address] Immature granulocytes (Bld) [#/Vol] 0.07 10*3/uL Normal 0.00-0.20 [facility] Comment on above: Performed By: #### L [id number] ####[facility] ([facility])[address] [place] [address] Immature granulocytes/100 WBC (Bld) 0.5 % Normal 0.0-1.0 [facility] Comment on above: Performed By: #### L [id number] ####[facility] ([facility] [place] [address] IMMATURE PLATELET FRACTION % 8.4 % High 0.8-6.3 [facility] Comment on above: Performed By: #### L [id number] ####[facility] ([facility] [place] [address] Lymphocytes (Bld) [#/Vol] 1.77 10*3/uL Normal 1.20-4.00 [facility] Comment on above: Performed By: #### L [id number] ####[facility] ([facility] [place] [address] Lymphocytes/100 WBC (Bld) 12.3 % Low 20.0-45.0 [facility] Comment on above: Performed By: #### L [id number] ####[facility] ([facility])[address] [place] [address] MCH (RBC) [Entitic mass] 31.6 pg Normal 27.0-33.0 [facility] Comment on above: Performed By: #### L [id number] ####[facility] ([facility])[address] [place] [address] MCV (RBC) [Entitic vol] 91.3 fL Normal 82.0-98.0 [facility] Comment on above: Performed By: #### L [id number] ####[facility] ([facility])[address] [place] [address] Monocytes (Bld) [#/Vol] 1.32 10*3/uL High 0.10-1.00 [facility] Comment on above: Performed By: #### L [id number] ####[facility] ([facility])[address] [place] [address] Monocytes/100 WBC (Bld) 9.2 % Normal 5.0-12.0 [facility] Comment on above: Performed By: #### L [id number] ####[facility] ([facility])[address] [place] [address] Neutrophils (Bld) [#/Vol] 10.91 10*3/uL High 1.60-7.60 [facility] Comment on above: Performed By: #### L [id number] ####[facility] ([facility])[address] [place] [address] Neutrophils/100 WBC (Bld) 75.9 % High 40.0-72.0 [facility] Comment on above: Performed By: #### L [id number] ####[facility] ([facility] [place] [address] NRBC (PER 100 WBCS) BY AUTOMATED COUNT 0.0 % Normal 0 [facility] Comment on above: Performed By: #### L [id number] ####[facility] ([facility])[address] [place] [address] PLATELETS (10*3/UL) IN BLOOD AUTOMATED COUNT 128 10*3/uL Low 150-400 [facility] Comment on above: Performed By: #### L [id number] ####[facility] ([facility])[address] [place] [address] RBC (Bld) [#/Vol] 2.75 10*6/uL Low 4.20-5.70 [facility] Comment on above: Performed By: #### L [id number] ####[facility] ([facility] [place] [address] WBC (Bld) [#/Vol] 14.38 10*3/uL High 4.00-10.60 [facility] Comment on above: Performed By: #### L [id number] ####[facility] ([facility])[address] [place] [address] MAGNESIUMon 05-16-2025 Magnesium [Mass/Vol] 1.8 mg/dL Low 1.9-2.7 [facility] Comment on above: Performed By: #### L [id number] ####[facility] ([facility])[address] [place] [address] OCCULT BLOOD X 1, STOOLon HEMOGLOBIN GASTROINTESTINAL PRESENCE IN STOOL Positive Abnormal Negative, None Detected [facility] Comment on above: Performed By: #### L [id number] ####[facility] ([facility])[address] [place] [address] PHOSPHORUSon 05-16-2025 Magnesium [Mass/Vol] 2.7 mg/dL Normal 2.5-5.0 [facility] Comment on above: Performed By: #### L [id number] ####[facility] ([facility])[address] [place] [address] 30on 05-15-2025 30 Normal [facility] 30 Normal [facility] BASIC METABOLIC PANELon 05-02 Anion gap [Moles/Vol] 7 mmol/L Normal 7-20 [facility] Comment on above: Performed By: #### L [id number] ####[facility] ([facility] [place] [address] Calcium [Mass/Vol] 7.7 mg/dL Low 8.6-10.3 [facility] Comment on above: Performed By: #### L [id number] ####[facility] ([facility])[address] [place] [address] Chloride [Moles/Vol] 103 mmol/L Normal 98-107 [facility] Comment on above: Performed By: #### L [id number] ####[facility] ([facility])[address] [place] [address] CO2 [Moles/Vol] 30 mmol/L Normal 21-31 [facility] Comment on above: Performed By: #### L [id number] ####[facility] ([facility] [place] [address] Creatinine [Mass/Vol] 0.63 mg/dL Low 0.70-1.30 [facility] Comment on above: Performed By: #### L [id number] ####[facility] ([facility] [place] [address] GLOMERULAR FILTRATION RATE ML/MIN/1.73 SQ M.PREDICTED 98.6 mL/min/1.73m*2 Normal >60.0 [facility] Comment on above: Result Comment: The [facility]???s estimated glomerular filtration rate (eGFR) will no [...] of individuals. Performed By: #### L [id number] ####[facility] ([facility] [place] [address] Glucose [Mass/Vol] 81 mg/dL Normal 70-100 [facility] Comment on above: Performed By: #### L [id number] ####[facility] ([facility])[address] [place] [address] Potassium [Moles/Vol] 4.0 mmol/L Normal 3.5-5.1 [facility] Comment on above: Performed By: #### L [id number] ####[facility] ([facility])[address] [place] [address] Sodium [Moles/Vol] 136 mmol/L Normal 136-145 [facility] Comment on above: Performed By: #### L [id number] ####[facility] ([facility])[address] [place] [address] Urea nitrogen [Mass/Vol] 13 mg/dL Normal 7-25 [facility] Comment on above: Performed By: #### L [id number] ####[facility] ([facility])[address] [place] [address] UREA NITROGEN/CREATININ E (MASS RATIO) IN SER/PLAS 20.6 Normal [facility] Comment on above: Performed By: #### L [id number] ####[facility] ([facility])[address] [place] [address] CBC WITH AUTO DIFFERENTIALon 05-15-2025 Erythrocyte distribution width (RBC) [Ratio] 14.6 % Normal 11.5-15.0 [facility] Comment on above: Performed By: #### L [id number] ####[facility] ([facility])[address] [place] [address] ERYTHROCYTE MEAN CORPUSCULAR HEMOGLOBIN CONCENTRATION (G/DL) BY AUTOMATED 34.4 g/dL Normal 32.0-35.0 [facility] Comment on above: Performed By: #### L [id number] ####[facility] ([facility])[address] [place] [address] Hematocrit (Bld) [Volume fraction] 27.0 % Low 39.0-50.0 [facility] Comment on above: Performed By: #### L [id number] ####[facility] ([facility] [place] [address] Hemoglobin (Bld) [Mass/Vol] 9.3 g/dL Low 13.0-17.0 [facility] Comment on above: Performed By: #### L [id number] ####[facility] ([facility])[address] [place] [address] IMMATURE PLATELET FRACTION % 8.9 % High 0.8-6.3 [facility] Comment on above: Performed By: #### L [id number] ####[facility] ([facility])[address] [place] [address] MCH (RBC) [Entitic mass] 32.4 pg Normal 27.0-33.0 [facility] Comment on above: Performed By: #### L [id number] ####[facility] ([facility])[address] [place] [address] MCV (RBC) [Entitic vol] 94.1 fL Normal 82.0-98.0 [facility] Comment on above: Performed By: #### L [id number] ####[facility] ([facility])[address] [place] [address] NRBC (PER 100 WBCS) BY AUTOMATED COUNT 0.0 % Normal 0 [facility] Comment on above: Performed By: #### L [id number] ####[facility] ([facility])[address] [place] [address] PLATELETS (10*3/UL) IN BLOOD AUTOMATED COUNT 103 10*3/uL Low 150-400 [facility] Comment on above: Performed By: #### L [id number] ####[facility] ([facility])[address] [place] [address] RBC (Bld) [#/Vol] 2.87 10*6/uL Low 4.20-5.70 [facility] Comment on above: Performed By: #### L [id number] ####[facility] ([facility])[address] [place] [address] WBC (Bld) [#/Vol] 16.37 10*3/uL High 4.00-10.60 [facility] Comment on above: Performed By: #### L [id number] ####[facility] ([facility])[address] [place] [address] MAGNESIUMon 05-15-2025 Magnesium [Mass/Vol] 1.7 mg/dL Low 1.9-2.7 [facility] Comment on above: Performed By: #### L [id number] ####[facility] ([facility])[address] [place] [address] MANUAL DIFFERENTIALon 2024 BASOPHILS (10*3/UL) IN BLOOD BY CALCULATION 0.07 10*3/uL Normal 0.00-0.20 [facility] Comment on above: Performed By: #### L [id number] ####[facility] ([facility])[address] [place] [address] BASOPHILS/100 LEUKOCYTES IN BLOOD BY AUTOMATED COUNT 0.4 % Normal 0.0-1.0 [facility] Comment on above: Performed By: #### L [id number] ####[facility] ([facility])[address] [place] [address] EOSINOPHILS (10*3/UL) IN BLOOD BY CALCULATION 0.34 10*3/uL Normal 0.00-0.50 [facility] Comment on above: Performed By: #### L [id number] ####[facility] ([facility])[address] [place] [address] EOSINOPHILS/100 LEUKOCYTES IN BLOOD BY AUTOMATED COUNT 2.1 % Normal 0.0-6.0 [facility] Comment on above: Performed By: #### L [id number] ####[facility] ([facility])[address] [place] [address] IMMATURE GRANULOCYTES (10*3/UL) IN BLOOD BY CALCULATION 0.08 10*3/uL Normal 0.00-0.20 [facility] Comment on above: Performed By: #### L [id number] ####[facility] ([facility])[address] [place] [address] IMMATURE GRANULOCYTES/100 LEUKOCYTES IN BLOOD BY AUTOMATED COUNT 0.5 % Normal 0.0-1.0 [facility] Comment on above: Performed By: #### L [id number] ####[facility] ([facility])[address] [place] [address] LYMPHOCYTES (10*3/UL) IN BLOOD BY CALCULATION 2.57 10*3/uL Normal 1.20-4.00 [facility] Comment on above: Performed By: #### L [id number] ####[facility] ([facility])[address] [place] [address] LYMPHOCYTES/100 LEUKOCYTES IN BLOOD BY AUTOMATED COUNT 15.7 % Low 20.0-45.0 [facility] Comment on above: Performed By: #### L [id number] ####[facility] ([facility])[address] [place] [address] MONOCYTES (10*3/UL) IN BLOOD BY CALCUATION 1.77 10*3/uL High 0.10-1.00 [facility] Comment on above: Performed By: #### L [id number] ####[facility] ([facility])[address] [place] [address] MONOCYTES/100 LEUKOCYTES IN BLOOD BY AUTOMATED COUNT 10.8 % Normal 5.0-12.0 [facility] Comment on above: Performed By: #### L [id number] ####[facility] ([facility])[address] [place] [address] NEUTROPHILS (10*3/UL) IN BLOOD BY CALCULATION 11.5 10*3/uL High 1.6-7.6 [facility] Comment on above: Performed By: #### L [id number] ####[facility] ([facility])[address] [place] [address] NEUTROPHILS/100 LEUKOCYTES IN BLOOD BY AUTOMATED COUNT 70.5 % Normal 40.0-72.0 [facility] Comment on above: Performed By: #### L [id number] ####[facility] ([facility])[address] [place] [address] NURSNOTEon 05-15-2025 NURSNOTE Normal [facility] NURSNOTE Normal [facility] NURSNOTE Normal [facility] PHOSPHORUSon 05-15-2025 Magnesium [Mass/Vol] 1.9 mg/dL Low 2.5-5.0 [facility] Comment on above: Performed By: #### L [id number] ####[facility] ([facility])[address] [place] [address] 30on 05-14-2025 30 Normal [facility] 30 Normal [facility] BASIC METABOLIC PANELon 05-02 Anion gap [Moles/Vol] 6 mmol/L Low 7-20 [facility] Comment on above: Performed By: #### L [id number] ####[facility] ([facility])[address] [place] [address] Calcium [Mass/Vol] 7.7 mg/dL Low 8.6-10.3 [facility] Comment on above: Performed By: #### L [id number] ####[facility] ([facility])[address] [place] [address] Chloride [Moles/Vol] 106 mmol/L Normal 98-107 [facility] Comment on above: Performed By: #### L [id number] ####[facility] ([facility])[address] [place] [address] CO2 [Moles/Vol] 30 mmol/L Normal 21-31 [facility] Comment on above: Performed By: #### L [id number] ####[facility] ([facility])[address] [place] [address] Creatinine [Mass/Vol] 0.71 mg/dL Normal 0.70-1.30 [facility] Comment on above: Performed By: #### L [id number] ####[facility] ([facility])[address] [place] [address] GLOMERULAR FILTRATION RATE ML/MIN/1.73 SQ M.PREDICTED 95.1 mL/min/1.73m*2 Normal >60.0 [facility] Comment on above: Result Comment: The [facility]???s estimated glomerular filtration rate (eGFR) will no [...] of individuals. Performed By: #### L [id number] ####[facility] ([facility])[address] [place] [address] Glucose [Mass/Vol] 91 mg/dL Normal 70-100 [facility] Comment on above: Performed By: #### L [id number] ####[facility] ([facility])[address] [place] [address] Potassium [Moles/Vol] 4.4 mmol/L Normal 3.5-5.1 [facility] Comment on above: Performed By: #### L [id number] ####[facility] ([facility])[address] [place] [address] Sodium [Moles/Vol] 138 mmol/L Normal 136-145 [facility] Comment on above: Performed By: #### L [id number] ####[facility] ([facility])[address] [place] [address] Urea nitrogen [Mass/Vol] 16 mg/dL Normal 7-25 [facility] Comment on above: Performed By: #### L [id number] ####[facility] ([facility])[address] [place] [address] UREA NITROGEN/CREATININ E (MASS RATIO) IN SER/PLAS 22.5 Normal [facility] Comment on above: Performed By: #### L [id number] ####[facility] ([facility])[address] [place] [address] CBC WITH AUTO DIFFERENTIALon 05-14-2025 Erythrocyte distribution width (RBC) [Ratio] 14.6 % Normal 11.5-15.0 [facility] Comment on above: Performed By: #### L [id number] ####[facility] ([facility])[address] [place] [address] ERYTHROCYTE MEAN CORPUSCULAR HEMOGLOBIN CONCENTRATION (G/DL) BY AUTOMATED 33.1 g/dL Normal 32.0-35.0 [facility] Comment on above: Performed By: #### L [id number] ####[facility] ([facility])[address] [place] [address] Hematocrit (Bld) [Volume fraction] 29.9 % Low 39.0-50.0 [facility] Comment on above: Performed By: #### L [id number] ####[facility] ([facility])[address] [place] [address] Hemoglobin (Bld) [Mass/Vol] 9.9 g/dL Low 13.0-17.0 [facility] Comment on above: Performed By: #### L [id number] ####[facility] ([facility])[address] [place] [address] MCH (RBC) [Entitic mass] 30.5 pg Normal 27.0-33.0 [facility] Comment on above: Performed By: #### L [id number] ####[facility] ([facility])[address] [place] [address] MCV (RBC) [Entitic vol] 92.0 fL Normal 82.0-98.0 [facility] Comment on above: Performed By: #### L [id number] ####[facility] ([facility])[address] [place] [address] NRBC (PER 100 WBCS) BY AUTOMATED COUNT 0.0 % Normal 0 [facility] Comment on above: Performed By: #### L [id number] ####[facility] ([facility])[address] [place] [address] PLATELETS (10*3/UL) IN BLOOD AUTOMATED COUNT 117 10*3/uL Low 150-400 [facility] Comment on above: Performed By: #### L [id number] ####[facility] ([facility])[address] [place] [address] RBC (Bld) [#/Vol] 3.25 10*6/uL Low 4.20-5.70 [facility] Comment on above: Performed By: #### L [id number] ####[facility] [facility] [address] WBC (Bld) [#/Vol] 18.84 10*3/uL High 4.00-10.60 [facility] Comment on above: Performed By: #### L [id number] ####[facility] ([facility])[address] [place] [address] EXTEM Con 05-14-2025 EXTEM C A10 61 mm Normal 45-62 [facility] Comment on above: Performed By: #### E XTEM C ####[facility] [id number] [place] [address] [facility] EXTEM C A20 68 mm Normal 54-69 [facility] Comment on above: Performed By: #### E XTEM C ####[facility] [id number] [place] [address] [facility] EXTEM C A5 51 mm Normal 33-52 [facility] Comment on above: Performed By: #### E XTEM C ####[facility] [id number] [place] [address] [facility] EXTEM C CT 61 s Normal 51-73 [facility] Comment on above: Performed By: #### E XTEM C ####[facility] [id number] [place] [address] [facility] EXTEM C ML 0 % Normal 0-6 [facility] Comment on above: Result Comment: [place]^P reliminary Result Performed By: #### E XTEM C ####[facility] [id number] [place] [address] [place] FIBTEM Con 05-14-2025 FIBTEM C A10 20 mm High 6-17 [facility] Comment on above: Performed By: #### F IBTEM C ####[facility] [id number] [place] [address] [facility] FIBTEM C A20 22 mm High 6-18 [facility] Comment on above: Performed By: #### F IBTEM C ####[facility] [id number] [place] [address] [facility] FIBTEM C A5 18 mm High 5-16 [facility] Comment on above: Performed By: #### F IBTEM C ####[facility] RESPIRATORY [id number] [facility] [place] [address] [facility] HEMOGLOBIN AND HEMATOCRIT, B LOODon 05-14-2025 Hematocrit (Bld) [Volume fraction] 30.6 % Low 39.0-50.0 [facility] Comment on above: Performed By: #### L [id number] ####[facility])[address] [place] [address] Hemoglobin (Bld) [Mass/Vol] 10.3 g/dL Low 13.0-17.0 [facility] Comment on above: Performed By: #### L [id number] ####[facility] (BEAKER)[address] [facility] [address] HEPTEM Con 05-14-2025 HEPTEM C A10 59 mm Normal 44-61 [facility] Comment on above: Performed By: #### H EPTEM C ####[facility] [id number] [address] [facility] [place] [address] [facility] HEPTEM C A20 66 mm Normal 52-67 [facility] Comment on above: Performed By: #### H EPTEM C ####[facility] [id number] [facility] [address] [facility] HEPTEM C A5 48 mm Normal 33-51 [facility] Comment on above: Performed By: #### H EPTEM C ####[facility] [id number] [facility] [place] [address] [facility] HEPTEM C CT 157 s Normal 141-215 [facility] Comment on above: Performed By: #### H EPTEM C ####[facility] [id number] [facility] [place] [address] [place] INTEM Con 05-14-2025 INTEM C A10 60 mm Normal 46-63 [facility] Comment on above: Performed By: #### I NTEM C ####[facility] [id number] [place] [address] [place] INTEM C A20 67 mm Normal 53-68 [facility] Comment on above: Performed By: #### I NTEM C ####[facility] [id number] [place] [address] [facility] INTEM C A5 50 mm Normal 36-54 [facility] Comment on above: Performed By: #### I NTEM C ####[facility] [id number] [place] [address] [facility] INTEM C CT 160 s Normal 139-205 [facility] Comment on above: Performed By: #### I NTEM C ####[facility] [id number] [place] [address] [facility] INTEM C ML 0 % Normal 0-7 [facility] Comment on above: Result Comment: [place]^P reliminary Result Performed By: #### I NTEM C ####[facility] [id number] [place] [address] [facility] MAGNESIUMon 05-14-2025 Magnesium [Mass/Vol] 1.8 mg/dL Low 1.9-2.7 [facility] Comment on above: Performed By: #### L [id number] ####[facility] (BEAKER)[address] [facility] [address] MANUAL DIFFERENTIALon 2024 BASOPHILS (10*3/UL) IN BLOOD BY CALCULATION 0.00 10*3/uL Normal 0.00-0.20 [facility] Comment on above: Performed By: #### L [id number] ####[facility] (BEAKER)[address] [facility] [address] BASOPHILS/100 LEUKOCYTES IN BLOOD BY AUTOMATED COUNT 0.0 % Normal 0.0-1.0 [facility] Comment on above: Performed By: #### L [id number] ####[facility] (BEAKER)[address] [facility] [place] [address] EOSINOPHILS (10*3/UL) IN BLOOD BY CALCULATION 0.00 10*3/uL Normal 0.00-0.50 [facility] Comment on above: Performed By: #### L [id number] ####[facility] ([facility])[address] [place] [address] EOSINOPHILS/100 LEUKOCYTES IN BLOOD BY AUTOMATED COUNT 0.0 % Normal 0.0-6.0 [facility] Comment on above: Performed By: #### L [id number] ####[facility] ([facility])[address] [place] [address] IMMATURE GRANULOCYTES (10*3/UL) IN BLOOD BY CALCULATION 0.08 10*3/uL Normal 0.00-0.20 [facility] Comment on above: Performed By: #### L [id number] ####[facility] ([facility])[address] [place] [address] IMMATURE GRANULOCYTES/100 LEUKOCYTES IN BLOOD BY AUTOMATED COUNT 0.4 % Normal 0.0-1.0 [facility] Comment on above: Performed By: #### L [id number] ####[facility] ([facility])[address] [place] [address] LYMPHOCYTES (10*3/UL) IN BLOOD BY CALCULATION 3.24 10*3/uL Normal 1.20-4.00 [facility] Comment on above: Performed By: #### L [id number] ####[facility] ([facility])[address] [place] [address] LYMPHOCYTES/100 LEUKOCYTES IN BLOOD BY AUTOMATED COUNT 17.2 % Low 20.0-45.0 [facility] Comment on above: Performed By: #### L [id number] ####[facility] ([facility])[address] [place] [address] MONOCYTES (10*3/UL) IN BLOOD BY CALCUATION 1.13 10*3/uL High 0.10-1.00 [facility] Comment on above: Performed By: #### L [id number] ####[facility] (BEAKER)[address] [place] [address] MONOCYTES/100 LEUKOCYTES IN BLOOD BY AUTOMATED COUNT 6.0 % Normal 5.0-12.0 [facility] Comment on above: Performed By: #### L [id number] ####[facility] ([facility])[address] [place] [address] NEUTROPHILS (10*3/UL) IN BLOOD BY CALCULATION 14.5 10*3/uL High 1.6-7.6 [facility] Comment on above: Performed By: #### L [id number] ####[facility] ([facility])[address] [place] [address] NEUTROPHILS/100 LEUKOCYTES IN BLOOD BY AUTOMATED COUNT 76.8 % High 40.0-72.0 [facility] Comment on above: Performed By: #### L [id number] ####[facility] ([facility])[address] [place] [address] PLASMA CELLS/100 LEUKOCYTES IN BLOOD 0 % Normal 0 [facility] Comment on above: Performed By: #### L [id number] ####[facility] ([facility])[address] [place] [address] PLATELETS GIANT PRESENCE IN BLOOD BY LIGHT MICROSCOPY Present Normal [facility] Comment on above: Performed By: #### L [id number] ####[facility] ([facility])[address] [place] [address] VARIANT LYMPHOCYTES (10*3/UL) IN BLOOD BY CALCULATION 0.00 10*3/uL Normal 0.00 [facility] Comment on above: Performed By: #### L [id number] ####[facility] ([facility])[address] [place] [address] VARIANT LYMPHOCYTES/100 LEUKOCYTES IN BLOOD CELLAVISION 0.0 % Normal 0.0-0.0 [facility] Comment on above: Performed By: #### L [id number] ####[facility] ([facility])[address] [place] [address] PHOSPHORUSon 05-14-2025 Magnesium [Mass/Vol] 2.1 mg/dL Low 2.5-5.0 [facility] Comment on above: Performed By: #### L [id number] ####[facility] (BEAKER)[address] [place] [address] 30on 05-13-2025 30 Normal [facility] ANESon 05-13-2025 ANES Normal [facility] ANES Normal [facility] BASIC METABOLIC PANELon 05-02 Anion gap [Moles/Vol] 8 mmol/L Normal 7-20 [facility] Comment on above: Performed By: #### L [id number] ####[facility] (BEAKER)[address] [place] [address] Calcium [Mass/Vol] 7.8 mg/dL Low 8.6-10.3 [facility] Comment on above: Performed By: #### L [id number] ####[facility] (BEAKER)[address] [place] [address] Chloride [Moles/Vol] 107 mmol/L Normal 98-107 [facility] Comment on above: Performed By: #### L [id number] ####[facility] (BEAKER)[address] [place] [address] CO2 [Moles/Vol] 27 mmol/L Normal 21-31 [facility] Comment on above: Performed By: #### L [id number] ####[facility] (BEAKER)[address] [place] [address] Creatinine [Mass/Vol] 0.82 mg/dL Normal 0.70-1.30 [facility] Comment on above: Performed By: #### L [id number] ####[facility] (BEAKER)[address] [place] [address] GLOMERULAR FILTRATION RATE ML/MIN/1.73 SQ M.PREDICTED 91.0 mL/min/1.73m*2 Normal >60.0 [facility] Comment on above: Result Comment: The [facility]???s estimated glomerular filtration rate (eGFR) will no [...] of individuals. Performed By: #### L [id number] ####[facility] ([facility])[address] [place] [address] Glucose [Mass/Vol] 130 mg/dL High 70-100 [facility] Comment on above: Performed By: #### L [id number] ####[facility] ([facility])[address] [place] [address] Potassium [Moles/Vol] 4.3 mmol/L Normal 3.5-5.1 [facility] Comment on above: Performed By: #### L [id number] ####[facility] ([facility])[address] [place] [address] Sodium [Moles/Vol] 138 mmol/L Normal 136-145 [facility] Comment on above: Performed By: #### L [id number] ####[facility] ([facility])[address] [place] [address] Urea nitrogen [Mass/Vol] 12 mg/dL Normal 7-25 [facility] Comment on above: Performed By: #### L [id number] ####[facility] ([facility])[address] [place] [address] UREA NITROGEN/CREATININ E (MASS RATIO) IN SER/PLAS 14.6 Normal [facility] Comment on above: Performed By: #### L [id number] ####[facility] ([facility])[address] [place] [address] CBC WITH AUTO DIFFERENTIALon 05-13-2025 Erythrocyte distribution width (RBC) [Ratio] 14.4 % Normal 11.5-15.0 [facility] Comment on above: Performed By: #### L [id number] ####[facility] ([facility])[address] [place] [address] ERYTHROCYTE MEAN CORPUSCULAR HEMOGLOBIN CONCENTRATION (G/DL) BY AUTOMATED 34.4 g/dL Normal 32.0-35.0 [facility] Comment on above: Performed By: #### L [id number] ####[facility] ([facility])[address] [place] [address] Hematocrit (Bld) [Volume fraction] 38.1 % Low 39.0-50.0 [facility] Comment on above: Performed By: #### L [id number] ####[facility] ([facility])[address] [place] [address] Hemoglobin (Bld) [Mass/Vol] 13.1 g/dL Normal 13.0-17.0 [facility] Comment on above: Performed By: #### L [id number] ####[facility] ([facility])[address] [place] [address] IMMATURE PLATELET FRACTION % 10.6 % High 0.8-6.3 [facility] Comment on above: Performed By: #### L [id number] ####[facility] ([facility])[address] [place] [address] MCH (RBC) [Entitic mass] 30.5 pg Normal 27.0-33.0 [facility] Comment on above: Performed By: #### L [id number] ####[facility] ([facility])[address] [place] [address] MCV (RBC) [Entitic vol] 88.8 fL Normal 82.0-98.0 [facility] Comment on above: Performed By: #### L [id number] ####[facility] ([facility])[address] [place] [address] NRBC (PER 100 WBCS) BY AUTOMATED COUNT 0.0 % Normal 0 [facility] Comment on above: Performed By: #### L [id number] ####[facility] ([facility])[address] [place] [address] PLATELETS (10*3/UL) IN BLOOD AUTOMATED COUNT 120 10*3/uL Low 150-400 [facility] Comment on above: Performed By: #### L [id number] ####[facility] (BEAKER)[address] [place] [address] RBC (Bld) [#/Vol] 4.29 10*6/uL Normal 4.20-5.70 [facility] Comment on above: Performed By: #### L [id number] ####[facility] (BEAKER)[address] [place] [address] WBC (Bld) [#/Vol] 25.00 10*3/uL High 4.00-10.60 [facility] Comment on above: Performed By: #### L [id number] ####[facility] (BEAKER)[address] [place] [address] HISTOLOGY - TISSUE EXAMon LAB AP ADDENDUM 1 [facility] Comment on above: Order Comment: Pre-o p diagnosis:SBO (small bowel obstruction) (CMS/HCC) [K56.609] Result Comment: Antonio garza comment. Comment: Possible etiologies for ischemic type mucosal injury include true ischemic colitis, infection or drug reaction.Addendum electronically signed by Abe Huber MD on 05/14/2025 at 1722 EDT Performed By: #### L [id number] ####[facility] (BEAKER)[address] [place] [address] LAB AP CASE REPORT Normal [facility] Comment on above: Order Comment: Pre-o p diagnosis:SBO (small bowel obstruction) (CMS/HCC) [K56.609] Result Comment: Surg ical Pathology Case: [id number] Provider: Eduardo Pearson MD Collected: 05/13/2025 0200Ordering Location: [address] Received: 05/13/2025 0716Pathologist: NIK Watkinspecimens: A) - Appendix, APPENDIX B) - Small Intestine, Small Bowel Performed By: #### L [id number] ####[facility] (BEAKER)[address] [place] [address] LAB AP CLINICAL INFORMATION Normal [facility] Comment on above: Order Comment: Pre-o p diagnosis:SBO (small bowel obstruction) (CMS/HCC) [K56.609] Result Comment: Post -Op PicrgwryhE41.609 - SBO (small bowel obstruction) (CMS/HCC) [ICD-10-CM] Performed By: #### L [id number] ####[facility] (BEAKER)[address] [place] [address] LAB AP GROSS DESCRIPTION A. Appendix. Normal [facility] Comment on above: Order Comment: Pre-o p diagnosis:SBO (small bowel obstruction) (CMS/HCC) [K56.609] Result Comment: Rece ived in formalin in a container labeled Darrell Nelson, APPENDIX . It consists of an intact appendix [...] embedded sutures.The entirety of the serosa is pink-ruaon and smooth. The mucosa is pink-ruano. The lumen measures 0.2 cm and contains fecal material. The wall is pink-ruano and unremarkable with a 0.2 cm average thickness. No perforations, masses, or other lesions are identified. Drill Rig Operator sections are submitted as follows:A1: Distal tip, bisected, and proximal margin, shaveA2: Detached piece of tissue (presumed true proximal margin), inked black, and new accounts representative sectionsKelly Finn, PGY-1Niconicho Hutchinson Pathologists' AssistantB. Small Intestine.Received in formalin in [...] identified, each measuring up to 0.3 cm. Drill Rig Operator sections are submitted as follows:B1: Stapled margins, shaveB2-3: Small bowel, representativeB4-5: Mesentery, representativeB6: Two possible lymph nodes, intactKitty Briseno, PGY-1Niconicho Hutchinson, Pathologists' Oracle Database Administrator Performed By: #### L [id number] ####[facility] ([facility])[address] [place] [address] LAB AP MICROSCOPIC DESCRIPTION Microscopic examination performed. Normal [facility] Comment on above: Order Comment: Pre-o p diagnosis:SBO (small bowel obstruction) (CMS/HCC) [K56.609] Performed By: #### L [id number] ####[facility] ([facility])[address] [place] [address] LAB AP REPORT FINAL DIAGNOSIS NARRATIVE Normal [facility] Comment on above: Order Comment: Pre-o p [...] at 1718 EDT Performed By: #### L [id number] ####[facility] (Jiahe)[address] [place] [address] LACTIC ACID, PLASMAon 2024 LACTATE (MMOL/L) IN SER/PLAS 1.0 mmol/L Normal 0.5-2.2 [facility] Comment on above: Performed By: #### L [id number] ####[facility] ([facility])[address] [place] [address] MAGNESIUMon 05-13-2025 Magnesium [Mass/Vol] 1.6 mg/dL Low 1.9-2.7 [facility] Comment on above: Performed By: #### L [id number] ####[facility] ([facility])[address] [place] [address] MANUAL DIFFERENTIALon 2024 BASOPHILS (10*3/UL) IN BLOOD BY CALCULATION 0.03 10*3/uL Normal 0.00-0.20 [facility] Comment on above: Performed By: #### L [id number] ####[facility] ([facility])[address] [place] [address] BASOPHILS/100 LEUKOCYTES IN BLOOD BY AUTOMATED COUNT 0.1 % Normal 0.0-1.0 [facility] Comment on above: Performed By: #### L [id number] ####[facility] ([facility])[address] [place] [address] EOSINOPHILS (10*3/UL) IN BLOOD BY CALCULATION 0.00 10*3/uL Normal 0.00-0.50 [facility] Comment on above: Performed By: #### L [id number] ####[facility] ([facility])[address] [place] [address] EOSINOPHILS/100 LEUKOCYTES IN BLOOD BY AUTOMATED COUNT 0.0 % Normal 0.0-6.0 [facility] Comment on above: Performed By: #### L [id number] ####[facility] ([facility])[address] [place] [address] IMMATURE GRANULOCYTES (10*3/UL) IN BLOOD BY CALCULATION 0.13 10*3/uL Normal 0.00-0.20 [facility] Comment on above: Performed By: #### L [id number] ####[facility] ([facility])[address] [place] [address] IMMATURE GRANULOCYTES/100 LEUKOCYTES IN BLOOD BY AUTOMATED COUNT 0.5 % Normal 0.0-1.0 [facility] Comment on above: Performed By: #### L [id number] ####[facility] ([facility])[address] [place] [address] LYMPHOCYTES (10*3/UL) IN BLOOD BY CALCULATION 1.15 10*3/uL Low 1.20-4.00 [facility] Comment on above: Performed By: #### L [id number] ####[facility] ([facility])[address] [place] [address] LYMPHOCYTES/100 LEUKOCYTES IN BLOOD BY AUTOMATED COUNT 4.6 % Low 20.0-45.0 [facility] Comment on above: Performed By: #### L [id number] ####[facility] ([facility])[address] [place] [address] MONOCYTES (10*3/UL) IN BLOOD BY CALCUATION 1.58 10*3/uL High 0.10-1.00 [facility] Comment on above: Performed By: #### L [id number] ####[facility] ([facility])[address] [place] [address] MONOCYTES/100 LEUKOCYTES IN BLOOD BY AUTOMATED COUNT 6.3 % Normal 5.0-12.0 [facility] Comment on above: Performed By: #### L [id number] ####[facility] ([facility])[address] [place] [address] NEUTROPHILS (10*3/UL) IN BLOOD BY CALCULATION 22.1 10*3/uL High 1.6-7.6 [facility] Comment on above: Performed By: #### L [id number] ####[facility] ([facility])[address] [place] [address] NEUTROPHILS/100 LEUKOCYTES IN BLOOD BY AUTOMATED COUNT 88.5 % High 40.0-72.0 [facility] Comment on above: Performed By: #### L [id number] ####[facility] ([facility])[address] [place] [address] OPNOTEon 05-13-2025 OPNOTE Normal [facility] PHOSPHORUSon 05-13-2025 Magnesium [Mass/Vol] 2.6 mg/dL Normal 2.5-5.0 [facility] Comment on above: Performed By: #### L [id number] ####[facility] ([facility]iahe)[address] [place] [address] PROTIME-INRon 05-13-2025 INR IN PPP BY COAGULATION ASSAY 1.12 High 0.90-1.10 [facility] Comment on above: Result Comment: [facility] RECOMMENDED INR FOR WARFARIN THERAPY CONDITION INRPROPHYLAXIS OF VENOUS THROMBOSIS 2-3(HIGH-RISK SURGERY)TREATMENT OF VENOUS THROMBOSIS 2-3TREATMENT OF PULMONARY EMBOLISM 2-3PREVENTION OF SYSTEMIC EMBOLISM: 2-3 ACUTE MYOCARDIAL INFARCTION TISSUE HEART VALVES VALVULAR HEART DISEASE ATRIAL FIBRILLATION RECURRENT SYSTEMIC EMBOLISMMECHANICAL HEART VALVE 2.5-3.5 FROM: ORAL ANTICOAGULANTS. MECHANISM OF ACTION, CLINICAL EFFECTIVENESS, AND OPTIMAL THERAPEUTIC RANGE. CHEST 1995;108:231S-246S. Performed By: #### L [id number] ####[facility] ([facility])[address] [place] [address] PROTHROMBIN TIME (PT) IN PPP BY COAGULATION ASSAY 14.4 Seconds Normal 12.3-14.8 [facility] Comment on above: Performed By: #### L [id number] ####[facility] ([facility]ia[facility])[address] [place] [address] CBC WITH AUTO DIFFERENTIALon 05-12-2025 Erythrocyte distribution width (RBC) [Ratio] 14.3 % Normal 11.5-15.0 [facility] Comment on above: Performed By: #### L [id number] ####[facility] ([employer])[address] [place] [address] ERYTHROCYTE MEAN CORPUSCULAR HEMOGLOBIN CONCENTRATION (G/DL) BY AUTOMATED 34.4 g/dL Normal 32.0-35.0 [facility] Comment on above: Performed By: #### L [id number] ####[facility] ([facility])[address] [place] [address] Hematocrit (Bld) [Volume fraction] 43.6 % Normal 39.0-50.0 [facility] Comment on above: Performed By: #### L [id number] ####[facility] ([facility])[address] [place] [address] Hemoglobin (Bld) [Mass/Vol] 15.0 g/dL Normal 13.0-17.0 [facility] Comment on above: Performed By: #### L [id number] ####[facility] ([facility])[address] [place] [address] MCH (RBC) [Entitic mass] 31.1 pg Normal 27.0-33.0 [facility] Comment on above: Performed By: #### L [id number] ####[facility] ([facility])[address] [place] [address] MCV (RBC) [Entitic vol] 90.3 fL Normal 82.0-98.0 [facility] Comment on above: Performed By: #### L [id number] ####[facility] ([facility])[address] [place] [address] NRBC (PER 100 WBCS) BY AUTOMATED COUNT 0.0 % Normal 0 [facility] Comment on above: Performed By: #### L [id number] ####[facility] ([facility])[address] [place] [address] PLATELETS (10*3/UL) IN BLOOD AUTOMATED COUNT 134 10*3/uL Low 150-400 [facility] Comment on above: Performed By: #### L [id number] ####[facility] ([facility])[address] [place] [address] RBC (Bld) [#/Vol] 4.83 10*6/uL Normal 4.20-5.70 [facility] Comment on above: Performed By: #### L [id number] ####[facility] (BEAKER)[address] [place] [address] WBC (Bld) [#/Vol] 19.28 10*3/uL High 4.00-10.60 [facility] Comment on above: Performed By: #### L [id number] ####[facility] (BEAKER)[address] [place] [address] COMPREHENSIVE METABOLIC PANE Galen 05-12-2025 Albumin [Mass/Vol] 3.9 g/dL Normal 3.5-5.7 [facility] Comment on above: Performed By: #### L [id number] ####[facility] ([facility] [place] [address] ALP [Catalytic activity/Vol] 52 U/L Normal 34-104 [facility] Comment on above: Performed By: #### L [id number] ####[facility] (BEAKER)[address] [place] [address] ALT [Catalytic activity/Vol] 12 U/L Normal 7-52 [facility] Comment on above: Performed By: #### L [id number] ####[facility] (BEAKER)[address] [place] [address] Anion gap [Moles/Vol] 11 mmol/L Normal 7-20 [facility] Comment on above: Performed By: #### L [id number] ####[facility] (BEAKER)[address] [place] [address] AST [Catalytic activity/Vol] 22 U/L Normal 13-39 [facility] Comment on above: Performed By: #### L [id number] ####[facility] (BEAKER)[address] [place] [address] Bilirubin [Mass/Vol] 0.7 mg/dL Normal 0.3-1.0 [facility] Comment on above: Performed By: #### L [id number] ####[facility] (BEAKER)[address] [place] [address] Calcium [Mass/Vol] 8.6 mg/dL Normal 8.6-10.3 [facility] Comment on above: Performed By: #### L [id number] ####[facility] ([facility])[address] [place] [address] Chloride [Moles/Vol] 105 mmol/L Normal 98-107 [facility] Comment on above: Performed By: #### L [id number] ####[facility] ([facility])[address] [place] [address] CO2 [Moles/Vol] 25 mmol/L Normal 21-31 [facility] Comment on above: Performed By: #### L [id number] ####[facility] ([facility])[address] [place] [address] Creatinine [Mass/Vol] 0.82 mg/dL Normal 0.70-1.30 [facility] Comment on above: Performed By: #### L [id number] ####[facility] ([facility])[address] [place] [address] GLOMERULAR FILTRATION RATE ML/MIN/1.73 SQ M.PREDICTED 91.0 mL/min/1.73m*2 Normal >60.0 [facility] Comment on above: Result Comment: The [facility]???s estimated glomerular filtration rate (eGFR) will no [...] of individuals. Performed By: #### L [id number] ####[facility] ([facility])[address] [place] [address] Glucose [Mass/Vol] 126 mg/dL High 70-100 [facility] Comment on above: Performed By: #### L [id number] ####[facility] ([facility])[address] [place] [address] Potassium [Moles/Vol] 4.3 mmol/L Normal 3.5-5.1 [facility] Comment on above: Performed By: #### L [id number] ####[facility] ([facility])[address] [place] [address] Protein [Mass/Vol] 6.4 g/dL Normal 6.0-8.3 [facility] Comment on above: Performed By: #### L [id number] ####[facility] ([facility] [place] [address] Sodium [Moles/Vol] 137 mmol/L Normal 136-145 [facility] Comment on above: Performed By: #### L [id number] ####[facility] ([facility])[address] [place] [address] Urea nitrogen [Mass/Vol] 12 mg/dL Normal 7-25 [facility] Comment on above: Performed By: #### L [id number] ####[facility] ([facility])[address] [place] [address] UREA NITROGEN/CREATININ E (MASS RATIO) IN SER/PLAS 14.6 Normal [facility] Comment on above: Performed By: #### L [id number] ####[facility] ([facility])[address] [place] [address] CT ABDOMEN PELVIS W IV CONTR Kala 05-12-2025 CT ABDOMEN PELVIS W IV CONTRAST Normal [facility] Comment on above: Order Comment: And o ral contrast please EDPROVon 05-12-2025 EDPROV Normal [facility] HPon 05-12-2025 HP Normal [facility] LACTIC ACID WITH 4 HOUR REFL EXon 05-12-2025 LACTATE (MMOL/L) IN SER/PLAS 1.0 mmol/L Normal 0.5-2.2 [facility] Comment on above: Performed By: #### L [id number] ####[facility] ([facility])[address] [place] [address] MAGNESIUMon 05-12-2025 Magnesium [Mass/Vol] 1.9 mg/dL Normal 1.9-2.7 [facility] Comment on above: Performed By: #### L [id number] ####[facility] ([facility])[address] [place] [address] MANUAL DIFFERENTIALon 2024 BASOPHILS (10*3/UL) IN BLOOD BY CALCULATION 0.04 10*3/uL Normal 0.00-0.20 [facility] Comment on above: Performed By: #### L [id number] ####[facility] ([facility])[address] [place] [address] BASOPHILS/100 LEUKOCYTES IN BLOOD BY AUTOMATED COUNT 0.2 % Normal 0.0-1.0 [facility] Comment on above: Performed By: #### L [id number] ####[facility] ([facility])[address] [place] [address] EOSINOPHILS (10*3/UL) IN BLOOD BY CALCULATION 0.00 10*3/uL Normal 0.00-0.50 [facility] Comment on above: Performed By: #### L [id number] ####[facility] ([facility])[address] [place] [address] EOSINOPHILS/100 LEUKOCYTES IN BLOOD BY AUTOMATED COUNT 0.0 % Normal 0.0-6.0 [facility] Comment on above: Performed By: #### L [id number] ####[facility] ([facility])[address] [place] [address] IMMATURE GRANULOCYTES (10*3/UL) IN BLOOD BY CALCULATION 0.10 10*3/uL Normal 0.00-0.20 [facility] Comment on above: Performed By: #### L [id number] ####[facility] ([facility])[address] [place] [address] IMMATURE GRANULOCYTES/100 LEUKOCYTES IN BLOOD BY AUTOMATED COUNT 0.5 % Normal 0.0-1.0 [facility] Comment on above: Performed By: #### L [id number] ####[facility] ([facility])[address] [place] [address] LYMPHOCYTES (10*3/UL) IN BLOOD BY CALCULATION 2.12 10*3/uL Normal 1.20-4.00 [facility] Comment on above: Performed By: #### L [id number] ####[facility] ([facility])[address] [place] [address] LYMPHOCYTES/100 LEUKOCYTES IN BLOOD BY AUTOMATED COUNT 11.0 % Low 20.0-45.0 [facility] Comment on above: Performed By: #### L [id number] ####[facility] ([facility])[address] [place] [address] MONOCYTES (10*3/UL) IN BLOOD BY CALCUATION 1.66 10*3/uL High 0.10-1.00 [facility] Comment on above: Performed By: #### L [id number] ####[facility] ([facility])[address] [place] [address] MONOCYTES/100 LEUKOCYTES IN BLOOD BY AUTOMATED COUNT 8.6 % Normal 5.0-12.0 [facility] Comment on above: Performed By: #### L [id number] ####[facility] ([facility])[address] [place] [address] NEUTROPHILS (10*3/UL) IN BLOOD BY CALCULATION 15.4 10*3/uL High 1.6-7.6 [facility] Comment on above: Performed By: #### L [id number] ####[facility] ([facility])[address] [place] [address] NEUTROPHILS/100 LEUKOCYTES IN BLOOD BY AUTOMATED COUNT 79.7 % High 40.0-72.0 [facility] Comment on above: Performed By: #### L [id number] ####[facility] ([facility])[address] [place], [place] [address] PHOSPHORUSon 05-12-2025 Magnesium [Mass/Vol] 2.9 mg/dL Normal 2.5-5.0 [facility] Comment on above: Performed By: #### L [id number] ####[facility] ([facility] [place], [place] [address] TYPE AND SCREENon 05-12-2025 AB SCREEN Negative Normal [facility] Comment on above: Performed By: #### L [id number] ####[facility], ABO group Nom (Bld) O Normal [facility] Comment on above: Performed By: #### L [id number] ####[facility], RH TYPE IN BLOOD Positive Normal [facility] Comment on above: Performed By: #### L [id number] ####[facility], Ambulatory Visit Summaryon 0 04-23-2025 [...] physician. Your Care Team Attending Physician - Rock [...] Rock LUJAN MD Where: [facility] [address] [place] [address]- You Need to Schedule the Following Appointments Follow Up with KARLEE GA, ASHLEY Hogan When: Where: [address] [address]- Medications What How Much When Instructions Unchanged [...] cause ar (more content not included)... Normal [facility] Urology Office/Clinic Noteon 04-23-2025 Urology Office/Clinic Note [...] with voice recognition artificial intelligence software, specifically [employer], [employer] and or [employer]. Substitutions may have occurred due to the [...] Reviewed urinalysis. Follow-up With When Contact Information Rock LUJAN MD, URL [address] [place] [id number]- Additional Instructions: 6 mos w/ PSAFT and KUB Patient Education Prostate Cancer Screening I, Rianna March, personally scribed for Dr. Lujan on 04/23/2025 09:04:59. . Documentation recorded by the scribeRianna, accurately reflects the services(s) I performed and decisions made by me. Authenticated by Dr. Lujan on 04/23/2025 09:05:56. Problem List/Past Medical History Ongoing BMI 27.0-27.9,adult BPH with (more content not included)... Normal [facility] Comment on above: Result Comment: Elec tronically Signed By: Rock LUJAN MD\.br\Date and Time Signed: 04/23/25 09:07 EDT\.br\Electronically Co-Signed By: Rianna March.br\Date and Time Co-Signed: 04/23/25 09:05 EDT Orders Onlyon 02-12-2025 Orders Only [facility] 36on 02-04-2025 36 Detailed voicemail l eft for patient. Melanie Vickers MA [facility] [address] Plasencia: Ariana I put in a request for right and left heart catheterization on this patient per CT surgery request. Please inform the patient to expect a call from the [employer] to schedule it [facility] 36on 02-03-2025 36 Patient was seen by CT surgery for possible mitral valve repair. CT surgery team reached out to me requesting right and left heart catheterization before proceeding with surgery. Will go ahead and schedule it and inform the patient [facility] 36on 01-31-2025 36 MD Geovanna Simeon MA BMP looks good after increasing losartan dose. Left message for patient advising him of his blood test results. [facility] Abstracton 01-31-2025 Abstract [facility] Consulton 01-30-2025 Consult [facility] 36on 01-22-2025 36 01/22/25 2nd attempt to reach patient to schedule no answer lmom to cb SR [facility] 36on 01-21-2025 36 Call placed to patie nt to schedule appointment no answer left message to call back. [facility] 36 [facility] Telephoneon 01-21-2025 Telephone [facility] ANESon 12-20-2024 ANES [facility] HPon 12-20-2024 HP [facility] NURSNOTEon 12-20-2024 NURSNOTE [facility] Telephoneon 12-13-2024 Telephone [facility] 36on 11-15-2024 36 Regarding lab result s from 11/13/2024: MD Eneida Simeon MA Lipids look very good. Continue current diet and exercise. LM on patient's VM. [facility] Ambulatory Visit Summaryon 0 10-16-2024 Ambulatory [...] Rock LUJAN MD Where: [facility] [address], [address] [place] [address]- You Need to Schedule the Following Appointments Follow Up with Rock LUJAN MD, URL When: Where: [address] [address]- Medications What How Much When [...] yo (more content not included)... Normal [facility] Urology Office/Clinic Noteon 10-16-2024 Urology Office/Clinic [...] with voice recognition artificial intelligence software, specifically [employer], [employer] and or [employer]. Substitutions may have occurred due to the [...] total PSA Follow-up With When Contact Information Rock LUJAN MD, URL [address] [address]- Additional Instructions: 6 mos w/ PSA free & total Patient Education Prostate Cancer Screening I, Rianna March, personally scribed for Dr. Lujan on 10/16/2024 08:31:48. . Documentation recorded by the scribeRianna, accurately [...] (02/11/2016), Cys (more content not included)... Normal [facility] Comment on above: Result Comment: Elec tronically Signed By: Rock LUJAN MD\.br\Date and Time Signed: 10/16/24 08:34 EST\.br\Electronically Co-Signed By: Rianna March\.br\Date and Time Co-Signed: 10/16/24 08:31 EST PSA, FREE AND TOTAL RATIOon 02-09-2023 % Free PSA 19.7 % Normal [facility] Comment on above: Result Comment: The [...] men. Performed By: #### P SAFREE #### [facility] [address] [place] [address] Dr. Vaishali Dorsey Prostate specific Ag [Mass/Vol] 7.6 ng/mL Critically high 0.0-4.0 [facility] Comment on above: Result Comment: Dakota trejo ECLIA methodology. . According to the [employer] [employer], Serum PSA should decrease and [...] disease. Performed By: #### P SAFREE #### [facility] [address] [place] [address] Dr. Vaishali Dorsey PSA, Free 1.50 ng/mL Normal N/A [facility] Comment on above: Result Comment: Dakota trejo ECLIA methodology. Performed By: #### P SAFREE #### [facility] [address] [place] [address] Dr. Vaishali Dorsey CBC AUTO DIFFon 11-03-2022 BASO # 0.1 103/ul Normal 0.0-0.1 [facility] Comment on above: Performed By: #### C BC #### [facility] [address] [place] [address] Dr. Vaishali Dorsey Basophils/100 WBC (Bld) 0.6 % Normal 0.2-2.0 [facility] Comment on above: Performed By: #### C BC #### [facility] [address] [place] [address] Dr. Vaishali Dorsey EO # 0.5 103/ul Normal 0.0-0.7 [facility] Comment on above: Performed By: #### C BC #### [facility] [address] [place] [address] Dr. Vaishali Dorsey Eosinophils/100 WBC (Bld) 4.4 % Normal 0.9-7.0 [facility] Comment on above: Performed By: #### C BC #### [facility] [address] [place] [address] Dr. Vaishali Dorsey Erythrocyte distribution width (RBC) [Ratio] 17.2 % Critically high 11.0-15.0 [facility] Comment on above: Performed By: #### C BC #### [facility] [address] [place] [address] Dr. Vaishali Dorsey Hematocrit (Bld) [Volume fraction] 39.6 % Critically low 42.0-54.0 [facility] Comment on above: Performed By: #### C BC #### [facility] [address] [place] [address] Dr. Vaishali Dorsey Hemoglobin (Bld) [Mass/Vol] 11.8 g/dL Critically low 14.0-18.0 [facility] Comment on above: Performed By: #### C BC #### [facility] [address] [place] [address] Dr. Vaishali Dorsey IG # 0.03 10e3/ul Normal 0.00-0.03 [facility] Comment on above: Performed By: #### C BC #### [facility] [address] [place] [address] Dr. Vaishali Dorsey IG % 0.3 % Normal 0.0-0.5 [facility] Comment on above: Performed By: #### C BC #### [facility] [address] [place] [address] Dr. Vaishali Dorsey LYMPH # 4.1 103/ul Critically high 1.2-3.8 [facility] Comment on above: Performed By: #### C BC #### [facility] [address] [place] [address] Dr. Vaishali Dorsey Lymphocytes/100 WBC (Bld) 34.2 % Normal 20.5-60.0 [facility] Comment on above: Performed By: #### C BC #### [facility] [address] [place] [address] Dr. Vaishali Dorsey MANUAL DIFF REQ NO Normal [facility] Comment on above: Performed By: #### C BC #### [facility] [address] [place] [address] Dr. Vaishali Dorsey MCH (RBC) [Entitic mass] 24.5 pg Critically low 25.9-34.0 [facility] Comment on above: Performed By: #### C BC #### [facility] [address] [place] [address] Dr. Vaishali Dorsey MCHC (RBC) [Mass/Vol] 29.8 g/dL Critically low 29.9-35.2 [facility] Comment on above: Performed By: #### C BC #### [facility] [address] [place] [address] Dr. Vaishali Dorsey MCV (RBC) [Entitic vol] 82.2 fL Normal 80.0-94.0 [facility] Comment on above: Performed By: #### C BC #### [facility] [address] [place] [address] Dr. Vaishali Dorsey MONO # 1.1 103/ul Critically high 0.3-0.8 [facility] Comment on above: Performed By: #### C BC #### [facility] [address] [place] [address] Dr. Vaishali Dorsey Monocytes/100 WBC (Bld) 9.1 % Normal 1.7-12.0 [facility] Comment on above: Performed By: #### C BC #### [facility] [address] [place] [address] Dr. Vaishali Dorsey NEUT # 6.1 103/ul Normal 1.4-6.5 [facility] Comment on above: Performed By: #### C BC #### [facility] [address] [place] [address] Dr. Vaishali Dorsey Neutrophils/100 WBC (Bld) 51.4 % Normal 43.0-75.0 [facility] Comment on above: Performed By: #### C BC #### [facility] [address] [place] [address] Dr. Vaishali Dorsey Platelet mean volume (Bld) [Entitic vol] 10.3 fL Normal 9.5-13.5 [facility] Comment on above: Performed By: #### C BC #### [facility] [address] [address] [address] Vaishali Dorsey PLT 231 103/ul Normal 150-450 [facility] Comment on above: Performed By: #### C BC #### [facility] [address] [place] [address] Dr. Vaishali Dorsey RBC 4.82 106/ul Normal 4.70-6.10 [facility] Comment on above: Performed By: #### C BC #### [facility] [address] [place] [address] Dr. Vaishali Dorsey WBC 11.9 103/ul Critically high 4.0-11.0 [facility] Comment on above: Performed By: #### C BC #### [facility] [address] [place] [address] ABD/PELV W CONon [...] OLIVER CHAVEZ Date: 2022-11-03 13:53 Normal [facility] PROF CHEM 8 (BAS METB)on Anion gap [Moles/Vol] 10.3 mmol/L Normal [facility] Comment on above: Performed By: #### B MP ####[facility] [address] [place], [place] [address]Dr. Vaishali Dorsey Calcium [Mass/Vol] 9.2 mg/dL Normal 8.5-10.1 [facility] Comment on above: Performed By: #### B MP ####[facility] [address] [place], [place] [address]Dr. Vaishali Dorsey Chloride [Moles/Vol] 105 mmol/L Normal 98-107 [facility] Comment on above: Performed By: #### B MP ####[facility] [address] [place], [place] [address]Dr. Vaishali Dorsey CO2 [Moles/Vol] 32.4 mmol/L Critically high 21.0-32.0 [facility] Comment on above: Performed By: #### B MP ####[facility] [address] [place], [place] [address]Dr. Vaishali Dorsey Creatinine [Mass/Vol] 1.00 mg/dL Normal 0.70-1.30 [facility] Comment on above: Performed By: #### B MP ####[facility] [address] [place], [place] [address]Dr. Vaishali Dorsey EGFR-AF ETHIOPIAN >60 Normal >=60 [facility] Comment on above: Performed By: #### B MP ####[facility] [address] [place], [place] [address]Dr. Vaishali Dorsey EGFR-NON AF ETHIOPIAN >60 Normal >=60 [facility] Comment on above: Performed By: #### B MP ####[facility] [address] [address]Dr. Vaishali Dorsey Glucose [Mass/Vol] 101 mg/dL Normal 74-106 [facility] Comment on above: Performed By: #### B MP ####[facility] [address] [address]Dr. Vaishali Dorsey Potassium [Moles/Vol] 5.7 mmol/L Critically high 3.5-5.1 [facility] Comment on above: Performed By: #### B MP ####[facility] [address] [address]Dr. Vaishali Doresy Sodium [Moles/Vol] 142 mmol/L Normal 136-145 [facility] Comment on above: Performed By: #### B MP ####[facility] [address] [place] [address]Dr. Vaishali Dorsey Urea nitrogen [Mass/Vol] 13.0 mg/dL Normal 7.0-18.0 [facility] Comment on above: Performed By: #### B MP ####[facility] [address] [address]Dr. Vaishali Dorsey Urea nitrogen/Creatinin e [Mass ratio] 13.0 mg/mg Normal [facility] Comment on above: Performed By: #### B MP ####[facility] [address] [address]Dr. Vaishali Dorsey PROTIMEon 11-03-2022 INR Coag (PPP) [Relative time] 0.96 {INR} Normal [facility] Comment on above: Performed By: #### P T #### [facility] [address] [address] [address] Vaishali Dorsey INR GUIDELINES SEE BELOW Normal [facility] Comment on above: Result Comment: JOSEF RED INR: 2.0 - 3.0 CONDITIONS NOT LISTED BELOW 2.5 - 3.5 FOR PROSTHETIC HEART VALVE REPLACEMENT 2.5 - 3.5 RECURRENT THROMBOSIS Performed By: #### P T #### [facility] [address] [place] [address] Dr. Vaishali Dorsey PT Coag (PPP) [Time] 10.2 s Normal 9.0-11.6 [facility] Comment on above: Performed By: #### P T #### [facility] [address] [place] [address] Dr. Vaishali Dorsey Covid-19 PCR ([facility])on 08-03 SARS-CoV-2 (COVID-19) RNA NICK+probe Ql (Unsp spec) Not detected Normal NOT DETECTED [facility] Comment on above: Result Comment: When diagnostic [...] for this test is supported by the [place] of Health and Human Service's declaration that [...] used). Performed By: #### C VDTBH #### [facility] [address] [place] [address] Dr. Vaishali Dorsey CBC AUTO DIFFon 06-28-2022 BASO # 0.1 103/ul Normal 0.0-0.1 [facility] Comment on above: Performed By: #### C BC #### [facility] [address] [place] [address] Dr. Vaishali Dorsey Basophils/100 WBC (Bld) 0.6 % Normal 0.2-2.0 [facility] Comment on above: Performed By: #### C BC #### [facility] [address] [place] [address] Dr. Vaishali Dorsey EO # 0.3 103/ul Normal 0.0-0.7 [facility] Comment on above: Performed By: #### C BC #### [facility] [address] [place] [address] Dr. Vaishali Dorsey Eosinophils/100 WBC (Bld) 2.0 % Normal 0.9-7.0 [facility] Comment on above: Performed By: #### C BC #### [facility] [address] [place] [address] Dr. Vaishali Dorsey Erythrocyte distribution width (RBC) [Ratio] 16.4 % Critically high 11.0-15.0 [facility] Comment on above: Performed By: #### C BC #### [facility] [address] [place] [address] Dr. Vaishali Dorsey Hematocrit (Bld) [Volume fraction] 38.0 % Critically low 42.0-54.0 [facility] Comment on above: Performed By: #### C BC #### [facility] [address] [place] [address] Dr. Vaishali Dorsey Hemoglobin (Bld) [Mass/Vol] 11.8 g/dL Critically low 14.0-18.0 [facility] Comment on above: Performed By: #### C BC #### [facility] [address] [place] [address] Dr. Vaishali Dorsey IG # 0.04 10e3/ul Critically high 0.00-0.03 [facility] Comment on above: Performed By: #### C BC #### [facility] [address] [place] [address] Dr. Vaishali Dorsey IG % 0.3 % Normal 0.0-0.5 [facility] Comment on above: Performed By: #### C BC #### [facility] [address] [place] [address] Dr. Vaishali Dorsey LYMPH # 3.6 103/ul Normal 1.2-3.8 [facility] Comment on above: Performed By: #### C BC #### [facility] [address] [place] [address] Dr. Vaishali Dorsey Lymphocytes/100 WBC (Bld) 28.4 % Normal 20.5-60.0 [facility] Comment on above: Performed By: #### C BC #### [facility] [address] [place] [address] Dr. Vaishali Dorsey MANUAL DIFF REQ NO Normal [facility] Comment on above: Performed By: #### C BC #### [facility] [address] [place] [address] Dr. Vaishali Dorsey MCH (RBC) [Entitic mass] 25.2 pg Critically low 25.9-34.0 [facility] Comment on above: Performed By: #### C BC #### [facility] [address] [place] [address] Dr. Vaishali Dorsey MCHC (RBC) [Mass/Vol] 31.1 g/dL Normal 29.9-35.2 [facility] Comment on above: Performed By: #### C BC #### [facility] [address] [place] [address] Dr. Vaishali Dorsey MCV (RBC) [Entitic vol] 81.0 fL Normal 80.0-94.0 [facility] Comment on above: Performed By: #### C BC #### [facility] [address] [place] [address] Dr. Vaishali Dorsey MONO # 1.1 103/ul Critically high 0.3-0.8 [facility] Comment on above: Performed By: #### C BC #### [facility] [address] [place] [address] Dr. Vaishali Dorsey Monocytes/100 WBC (Bld) 8.3 % Normal 1.7-12.0 [facility] Comment on above: Performed By: #### C BC #### [facility] [address] [place] [address] Dr. Vaishali Dorsey NEUT # 7.6 103/ul Critically high 1.4-6.5 [facility] Comment on above: Performed By: #### C BC #### [facility] [address] [place] [address] Dr. Vaishali Dorsey Neutrophils/100 WBC (Bld) 60.4 % Normal 43.0-75.0 [facility] Comment on above: Performed By: #### C BC #### [facility] [address] [address] [address] Vaishali Dorsey Platelet mean volume (Bld) [Entitic vol] 10.7 fL Normal 9.5-13.5 [facility] Comment on above: Performed By: #### C BC #### [facility] [address] [address] [address] Vaishali Dorsey PLT 226 103/ul Normal 150-450 [facility] Comment on above: Performed By: #### C BC #### [facility] [address] [address] [address] Vaishali Dorsey RBC 4.69 106/ul Critically low 4.70-6.10 [facility] Comment on above: Performed By: #### C BC #### [facility] [address] [place] [address] Dr. Vaishali Dorsey WBC 12.6 103/ul Critically high 4.0-11.0 [facility] Comment on above: Performed By: #### C BC #### [facility] [address] [place] [address] Dr. Vaishali Dorsey FERRITINon 06-28-2022 Ferritin [Mass/Vol] 8.0 ng/mL Critically low 26.0-388.0 [facility] Comment on above: Performed By: #### F ERR #### [facility] [address] [place] [address] Dr. Vaishali Dorsey PROF 14(COMP METB)on 022 Albumin [Mass/Vol] 3.8 g/dL Normal 3.4-5.0 [facility] Comment on above: Performed By: #### C MP #### [facility] [address] [place] [address] Dr. Vaishali Dorsey Albumin/Globulin [Mass ratio] 1.1 {ratio} Normal [facility] Comment on above: Performed By: #### C MP #### [facility] [address] [place] [address] Dr. Vaishali Dorsey ALP [Catalytic activity/Vol] 66 U/L Normal 46-116 [facility] Comment on above: Performed By: #### C MP #### [facility] [address] [address] [address] Vaishali Dorsey ALT [Catalytic activity/Vol] 22 U/L Normal 16-63 [facility] Comment on above: Performed By: #### C MP #### [facility] [address] [address] [address] Vaishali Dorsey Anion gap [Moles/Vol] 10.4 mmol/L Normal [facility] Comment on above: Performed By: #### C MP #### [facility] [address] [address] [address] Vaishali Dorsey AST [Catalytic activity/Vol] 19 U/L Normal 15-37 [facility] Comment on above: Performed By: #### C MP #### [facility] [address] [place] [address] Dr. Vaishali Dorsey Bilirubin [Mass/Vol] 0.2 mg/dL Normal 0.2-1.0 [facility] Comment on above: Performed By: #### C MP #### [facility] [address] [place] [address] Dr. Vaishali Dorsey Calcium [Mass/Vol] 9.2 mg/dL Normal 8.5-10.1 [facility] Comment on above: Performed By: #### C MP #### [facility] [address] [place] [address] Dr. Vaishali Dorsey Chloride [Moles/Vol] 107 mmol/L Normal 98-107 [facility] Comment on above: Performed By: #### C MP #### [facility] [address] [address] [address] Vaishali Dorsey CO2 [Moles/Vol] 31.2 mmol/L Normal 21.0-32.0 [facility] Comment on above: Performed By: #### C MP #### [facility] [address] [place] [address] Dr. Vaishali Dorsey Creatinine [Mass/Vol] 1.02 mg/dL Normal 0.70-1.30 [facility] Comment on above: Performed By: #### C MP #### [facility] [address] [address] [address] Vaishali Dorsey EGFR-AF ETHIOPIAN >60 Normal >=60 [facility] Comment on above: Performed By: #### C MP #### [facility] [address] [address] [address] Vaishali Dorsey EGFR-NON AF ETHIOPIAN >60 Normal >=60 [facility] Comment on above: Performed By: #### C MP #### [facility] [address] [address] [address] Vaishali Dorsey Globulin (S) [Mass/Vol] 3.6 g/dL Normal [facility] Comment on above: Performed By: #### C MP #### [facility] [address] [place] [address] Dr. Vaishali Dorsey Glucose [Mass/Vol] 101 mg/dL Normal 74-106 [facility] Comment on above: Performed By: #### C MP #### [facility] [address] [address] [address] Vaishali Dorsey Potassium [Moles/Vol] 4.6 mmol/L Normal 3.5-5.1 [facility] Comment on above: Performed By: #### C MP #### [facility] [address] [place] [address] Dr. Vaishali Dorsey Protein [Mass/Vol] 7.4 g/dL Normal 6.4-8.2 [facility] Comment on above: Performed By: #### C MP #### [facility] [address] [address] [address] Vaishali Dorsey Sodium [Moles/Vol] 144 mmol/L Normal 136-145 [facility] Comment on above: Performed By: #### C MP #### [facility] [address] [place] [address] Dr. Vaishali Dorsey Urea nitrogen [Mass/Vol] 14.0 mg/dL Normal 7.0-18.0 [facility] Comment on above: Performed By: #### C MP #### [facility] [address] [place] [address] Dr. Vaishali Dorsey Urea nitrogen/Creatinin e [Mass ratio] 13.7 mg/mg Normal [facility] Comment on above: Performed By: #### C MP #### [facility] [address] [place] [address] [address] [address] Vaishali Dorsey PSA, FREE AND TOTAL RATIOon 04-21-2022 % Free PSA 18.9 % Normal [facility] Comment on above: Result Comment: The [...] men. Performed By: #### P SAFREE #### [facility] [address] [place] [address] [address] [address] Vaishali Dorsey Prostate specific Ag [Mass/Vol] 6.5 ng/mL Critically high 0.0-4.0 [facility] Comment on above: Result Comment: [employer]och [employer] ECLIA methodology. . According to the [place] [employer], Serum PSA should decrease and [...] disease. Performed By: #### P SAFREE #### [facility] [address] [place], [place] [address] Dr. Vaishali Dorsey PSA, Free 1.23 ng/mL Normal N/A [facility] Comment on above: Result Comment: [employer] ECLIA methodology. Performed By: #### P SAFREE #### [facility] [phone] Vaishali Dorsey COVID-19 FRon 03-24-2022 SARS-CoV-2 (COVID-19) RNA NICK+probe Ql (Unsp spec) Negative Normal Negative [facility] Comment on above: Order Comment: Healt hcare Worker?: N Result Comment: Testing for SARS-CoV-2 by RT-PCR This test was developed and its performance characteristics determined by [employer] ([employer]) and validated at the [facility]. This test has not been [...] is terminated or revoked sooner. PERFORMED BY: [place] [address] PATHOLOGIST [employer] KAMERON MARTIN M.D. Performed By: #### C OVID 19 [facility] [place] #### [address] Basic Metabolic Panlon 10-22 Anion gap 12 mmol/L Normal - [facility] Comment on above: Performed By: #### I CA, CBCDIF, VITD, PTHI, CMP, URIC ####[facility] [address] [place], [place] [phone] Calcium 8.2 mg/dL Low 8.5-10.2 [facility] Comment on above: Performed By: #### I CA, CBCDIF, VITD, PTHI, CMP, URIC ####[facility] [address] [place], [place] [phone] Chloride 102 mmol/L Normal 97-105 [facility] Comment on above: Performed By: #### I CA, CBCDIF, VITD, PTHI, CMP, URIC ####[facility] [phone] CO2 26 mmol/L Normal 22-30 [facility] Comment on above: Performed By: #### I CA, CBCDIF, VITD, PTHI, CMP, URIC ####[place] [address] [address] [phone] Creatinine 0.98 mg/dL Normal 0.73-1.22 [facility] Comment on above: Performed By: #### I CA, CBCDIF, VITD, PTHI, CMP, URIC ####[address] [place] [address] [address], [place] [phone] eGFR (non-black) mL/min/{1.73_m2} Normal [facility] Comment on above: Result Comment: eGFR (Estimated [...] I CA, CBCDIF, VITD, PTHI, CMP, URIC ####[address] [address] [address] [place], [place] [phone] Glucose mass conc 85 mg/dL Normal 74-99 [facility] Comment on above: Result Comment: The [place] [employer] (ADA) provides guidance for cutoff [...] Standards of Medical Care in Diabetes 2016, [place] [employer]. Diabetes Care. 2016.39(Suppl 1). Performed By: #### I CA, CBCDIF, VITD, PTHI, CMP, URIC ####[place] [address] [address] [phone] Potassium molar conc 3.5 mmol/L Low 3.7-5.1 [facility] Comment on above: Performed By: #### I CA, CBCDIF, VITD, PTHI, CMP, URIC ####[address] [address] [address] [phone] Sodium 140 mmol/L Normal 136-144 [facility] Comment on above: Performed By: #### I CA, CBCDIF, VITD, PTHI, CMP, URIC ####[address] [address] [address] [phone] Urea nitrogen 5 mg/dL Low 9-24 [facility] Comment on above: Performed By: #### I CA, CBCDIF, VITD, PTHI, CMP, URIC ####[address] [phone] CBCon 10-22-2017 Erythrocyte distribution width Auto Ratio (RBC) 13.1 % Normal 11.5-15.0 [facility] Comment on above: Performed By: #### I CA, CBCDIF, VITD, PTHI, CMP, URIC ####[address] [place] [phone] Erythrocytes (RBC) 10*6/uL Normal <0.01 [facility] Comment on above: Performed By: #### I CA, CBCDIF, VITD, PTHI, CMP, URIC ####[address] [address] [address] [phone] Erythrocytes (RBC) 3.32 10*6/uL Low 4.20-6.00 [facility] Comment on above: Performed By: #### I CA, CBCDIF, VITD, PTHI, CMP, URIC ####[address] [address] [address] [phone] Hematocrit (HCT) 29.6 % Low 39.0-51.0 [facility] Comment on above: Performed By: #### I CA, CBCDIF, VITD, PTHI, CMP, URIC ####[place] [address] [address] [phone] Hemoglobin mass conc (Bld) 9.8 g/dL Low 13.0-17.0 [facility] Comment on above: Performed By: #### I CA, CBCDIF, VITD, PTHI, CMP, URIC ####[address] [place] [address] [address] [phone] MCH 29.5 pG Normal 26.0-34.0 [facility] Comment on above: Performed By: #### I CA, CBCDIF, VITD, PTHI, CMP, URIC ####[place] [address] [address] [phone] MCHC mass conc (RBC) 33.1 g/dL Normal 30.5-36.0 [facility] Comment on above: Performed By: #### I CA, CBCDIF, VITD, PTHI, CMP, URIC ####[place] [address] [address] [phone] MCV 89.2 fL Normal 80.0-100.0 [facility] Comment on above: Performed By: #### I CA, CBCDIF, VITD, PTHI, CMP, URIC ####[address] [place] [address] [address] [phone] Platelet mean volume (PMV) 10.5 fL Normal 9.0-12.7 [facility] Comment on above: Performed By: #### I CA, CBCDIF, VITD, PTHI, CMP, URIC ####[facility] [address] [place], [place] [phone] Platelets 267 10*3/uL Normal 150-400 [facility] Comment on above: Performed By: #### I CA, CBCDIF, VITD, PTHI, CMP, URIC ####[facility] [place], [place] [phone] WBC (Leukocytes) 10.19 10*3/uL Normal 3.70-11.00 [facility] Comment on above: Performed By: #### I CA, CBCDIF, VITD, PTHI, CMP, URIC ####[facility] [place], [place] [phone] CNDSon 10-22-2017 CNDS HNO ID: [id number] thor: Feliciano Santanaervice: UrologyAuthor Type: PhysicianType: Discharge SummariesFiled: 10/23/2017 8:54 AMNote Text:DISCHARGE SUMMARYPATIENT NAME: Darrell Nelson ADMISSION DATE: 10/21/2017MRN: [id number] DISCHARGE DATE: 10/22/2017Attending Physician: Feliciano Vega for Hospitalization: HematuriaActive Problems: LeukocytosisResolved Problems: * No resolved hospital problems. *Operations During Hospitalization: NoneProcedures During Hospitalization: cystoscopy, [facility] eHospital Course: Patient was admitted from OSH [...] of this patient.SIGNATURE: Tk Abdalla MD PAGER: [phone]: October 22, 2017TIME: 9:32 AMFeliciano Schroeder MDDirector, Surgical Stone Disease, [facility] InstituteProfessor of Surgery, [facility] HospitalPager [phone]/23/2017 [facility] PROGRESSon 10-22-2017 PROGRESS HNO ID: [id number] thor: Tk (ResNIK Newtonervice: UrologyAuthor Type: ResidentType: [...] lb 4 oz) SpO2 95% BMI 25.43 kg/j6Uceysotyhpw max: Temp (24hrs), Av.1 ?C (98.7 ?F), Min:36.8 ?C (98.3?F), Max:37.2 ?C (99 ?F)Intake/Output 10/21/17 0700 - 10/22/17 0659 10/22/17 0700 - 10/23/17 0659 Intake (ml) 2180 -- Output (ml) 2550 650 Net (ml) -370 -650LABS:BUN (mg/dL)Date Value10/22/2017 501 801 701 912 10 Creatinine (mg/dL)Date Value10/22/2017 0.98010/21/2017 0.9210/13/2017 0.9001 1.0012 1.05 Recent Labs [id number] 10.19HB 9.8*HCT 29.6*NA 140K 3.5*CHLOR 102CO2 26GLUC 85Glucose, Urine (mg/dL)Date Value10/21/2017 Negative Bilirubin, Urine (no units)Date Value10/21/2017 Negative Ketones, Urine (no units)Date Value10/21/2017 Negative Specific [place], Ur (no units)Date Value10/21/2017 1.010 Hemoglobin/Blood ,Ur ( )Date Value10/21/2017 3+ (A) pH, Urine (no units)Date Value10/21/2017 6.0 Protein, Urine (mg/dL)Date Value10/21/2017 30 (A) Nitrites (no units)Date Value10/21/2017 Negative WBC, Urine (/HPF)Date Value10/21/2017 >25 (A) Color (no units)Date Value10/21/2017 Yellow Clarity (no units)Date Value10/21/2017 Cloudy (A) Assessment/PlanAct [facility] Problems Leukocytosis [D72.829]Mr. Nelson is a [...] - Ancef 2g q8h for prophylaxis?SIGNATURE: Tk bAdalla MD PATIENT NAME: Darrell ElizaldeATE: October 22, 2017 : 7:31 AM PAGER/CONTACT #: [phone] Normal [facility] Basic Metabolic Panlon 10-21 Anion gap 14 mmol/L Normal 9-18 [facility] Comment on above: Performed By: #### I CA, CBCDIF, VITD, PTHI, CMP, URIC ####[place] [address] [address] [phone] Calcium 8.3 mg/dL Low 8.5-10.2 [facility] Comment on above: Performed By: #### I CA, CBCDIF, VITD, PTHI, CMP, URIC ####[address] [address] [address] [place] [phone] Chloride 104 mmol/L Normal 97-105 [facility] Comment on above: Performed By: #### I CA, CBCDIF, VITD, PTHI, CMP, URIC ####[address] [address] [address] [phone] CO2 25 mmol/L Normal 22-30 [facility] Comment on above: Performed By: #### I CA, CBCDIF, VITD, PTHI, CMP, URIC ####[address] [address] [address] [phone] Creatinine 0.92 mg/dL Normal 0.73-1.22 [facility] Comment on above: Performed By: #### I CA, CBCDIF, VITD, PTHI, CMP, URIC ####[place] [address] [address] [phone] eGFR (non-black) mL/min/{1.73_m2} Normal Cl [facility] Comment on above: Result Comment: eGFR [...] I CA, CBCDIF, VITD, PTHI, CMP, URIC ####[facility], [place] [phone] Glucose mass conc 79 mg/dL Normal 74-99 [facility] Comment on above: Result Comment: The [place] Diabetes [employer] (ADA) provides guidance for cutoff [...] Standards of Medical Care in Diabetes 2016, [place] [employer]. Diabetes Care. 2016.39(Suppl 1). Performed By: #### I CA, CBCDIF, VITD, PTHI, CMP, URIC ####[facility] [address], [place] [phone] Potassium molar conc 3.7 mmol/L Normal 3.7-5.1 [facility] Comment on above: Performed By: #### I CA, CBCDIF, VITD, PTHI, CMP, URIC ####[facility] [address], [place] [phone] Sodium 143 mmol/L Normal 136-144 [facility] Comment on above: Performed By: #### I CA, CBCDIF, VITD, PTHI, CMP, URIC ####[place] [phone] [place] [phone] Urea nitrogen 8 mg/dL Low 9-24 [facility] Comment on above: Performed By: #### I CA, CBCDIF, VITD, PTHI, CMP, URIC ####[place] [address] [address] [phone] CBC and Differentialon 10-21 Abs Baso 0.05 k/uL Normal <0.11 [facility] Comment on above: Performed By: #### I CA, CBCDIF, VITD, PTHI, CMP, URIC ####[place] [address] [address] [phone] Abs [place] 0.81 k/uL Normal <0.87 [facility] Comment on above: Performed By: #### I CA, CBCDIF, VITD, PTHI, CMP, URIC ####[place] [address] [address] [phone] Abs Neut 6.30 k/uL Normal 1.45-7.50 [facility] Comment on above: Performed By: #### I CA, CBCDIF, VITD, PTHI, CMP, URIC ####[place] [address] [address] [phone] Basophils/100 WBC Auto (Bld) 0.5 % Normal [facility] Comment on above: Performed By: #### I CA, CBCDIF, VITD, PTHI, CMP, URIC ####[place] [address] [address] [phone] DTYPE Auto Diff Normal [facility] Comment on above: Performed By: #### I CA, CBCDIF, VITD, PTHI, CMP, URIC ####[place] [address] [address] [phone] Eosinophils 0.24 10*3/uL Normal <0.46 [facility] Comment on above: Performed By: #### I CA, CBCDIF, VITD, PTHI, CMP, URIC ####[place] [address] [address] [phone] Eosinophils/100 leukocytes 2.3 % Normal [facility] Comment on above: Performed By: #### I CA, CBCDIF, VITD, PTHI, CMP, URIC ####[place] [address] [address] [phone] Erythrocyte distribution width Auto Ratio (RBC) 13.1 % Normal 11.5-15.0 [facility] Comment on above: Performed By: #### I CA, CBCDIF, VITD, PTHI, CMP, URIC ####[place] [address] [address] [phone] Erythrocytes (RBC) 3.34 10*6/uL Low 4.20-6.00 [facility] Comment on above: Performed By: #### I CA, CBCDIF, VITD, PTHI, CMP, URIC ####[place] [address] [address] [phone] Erythrocytes (RBC) 10*6/uL Normal <0.01 [facility] Comment on above: Performed By: #### I CA, CBCDIF, VITD, PTHI, CMP, URIC ####[place] [address] [address] [phone] Erythrocytes (RBC) 0.0 /100 WBC Normal 0 [facility] Comment on above: Performed By: #### I CA, CBCDIF, VITD, PTHI, CMP, URIC ####[place] [address] [address] [phone] Hematocrit (HCT) 30.2 % Low 39.0-51.0 [facility] Comment on above: Performed By: #### I CA, CBCDIF, VITD, PTHI, CMP, URIC ####[place] [address] [address] [phone] Hemoglobin mass conc (Bld) 10.2 g/dL Low 13.0-17.0 [facility] Comment on above: Performed By: #### I CA, CBCDIF, VITD, PTHI, CMP, URIC ####[place] [address] [address] [place] [phone] Lymphocytes 3.06 10*3/uL Normal 1.00-4.00 [facility] Comment on above: Performed By: #### I CA, CBCDIF, VITD, PTHI, CMP, URIC ####[place] [address] [address] [place] [phone] Lymphocytes/100 leukocytes 29.3 % Normal [facility] Comment on above: Performed By: #### I CA, CBCDIF, VITD, PTHI, CMP, URIC ####[place] [address] [address] [place] [phone] MCH 30.5 pG Normal 26.0-34.0 [facility] Comment on above: Performed By: #### I CA, CBCDIF, VITD, PTHI, CMP, URIC ####[place] [address] [address] [place] [phone] MCHC mass conc (RBC) 33.8 g/dL Normal 30.5-36.0 [facility] Comment on above: Performed By: #### I CA, CBCDIF, VITD, PTHI, CMP, URIC ####[place] [address] [address] [place] [phone] MCV 90.4 fL Normal 80.0-100.0 [facility] Comment on above: Performed By: #### I CA, CBCDIF, VITD, PTHI, CMP, URIC ####[place] [address] [address] [place] [phone] Monocytes/100 leukocytes 7.7 % Normal [facility] Comment on above: Performed By: #### I CA, CBCDIF, VITD, PTHI, CMP, URIC ####[place] [address] [address], [place] [phone] Neutrophils/100 WBC Auto (Bld) 60.2 % Normal [facility] Comment on above: Performed By: #### I CA, CBCDIF, VITD, PTHI, CMP, URIC ####[place] [address] [address], [place] [phone] Platelet mean volume (PMV) 10.7 fL Normal 9.0-12.7 [facility] Comment on above: Performed By: #### I CA, CBCDIF, VITD, PTHI, CMP, URIC ####[address] [place], [place] [phone] Platelets 260 10*3/uL Normal 150-400 [facility] Comment on above: Performed By: #### I CA, CBCDIF, VITD, PTHI, CMP, URIC ####[place] [address] [address], [place] [phone] WBC (Leukocytes) 10.46 10*3/uL Normal 3.70-11.00 [facility] Comment on above: Performed By: #### I CA, CBCDIF, VITD, PTHI, CMP, URIC ####[address] [place], [place] [phone] Protimeon 10-21-2017 INR Coag RelTime (Bld) 1.0 {INR} Normal 0.9-1.3 [facility] Comment on above: Result Comment: Laisha min K Antagonist (VKA) Therapeutic Range: INR 2 to 3 (Target INR of 2.5)Note: For patients treated with VKA drugs, such as warfarin, the [place] [employer] 2012 Guideline recommends [...] al. Chest 2012, 141:7S-47SNishimura RA, et al. [facility] 2017, 70: 252-289 Performed By: #### I CA, CBCDIF, VITD, PTHI, CMP, URIC ####[place] [address] [address], [place] [phone] PT Sec 10.4 sec Normal 9.7-13.0 [facility] Comment on above: Performed By: #### I CA, CBCDIF, VITD, PTHI, CMP, URIC ####[place] [address] [address], [place] [phone] Type and Screenon 10-21-2017 ABO/RH(D) Positive Normal [facility] Comment on above: Performed By: #### I CA, CBCDIF, VITD, PTHI, CMP, URIC ####[place] [address] [address], [place] [phone] Antibody Screen Negative Normal [facility] Comment on above: Performed By: #### I CA, CBCDIF, VITD, PTHI, CMP, URIC ####[place] [address] [address], [place] [phone] Urinalysison 10-21-2017 Bilirubin, Urine Negative Normal Negative [facility] Comment on above: Performed By: #### I CA, CBCDIF, VITD, PTHI, CMP, URIC ####[place] [address] [address], [place] [phone] Comments SEE COMMENT Normal [facility] Comment on above: Result Comment: Micr oscopic Examination Performed Performed By: #### I CA, CBCDIF, VITD, PTHI, CMP, URIC ####[facility] [place] [phone] Erythrocytes (RBC) 10*6/uL Critically abnormal 0-3 [facility] Comment on above: Performed By: #### I CA, CBCDIF, VITD, PTHI, CMP, URIC ####[place] [address] [address] [place] [phone] Hemoglobin mass conc (Bld) 3+ Critically abnormal Negative [facility] Comment on above: Performed By: #### I CA, CBCDIF, VITD, PTHI, CMP, URIC ####[place] [address] [address] [place] [phone] Leukest 3+ Critically abnormal Negative [facility] Comment on above: Performed By: #### I CA, CBCDIF, VITD, PTHI, CMP, URIC ####[place] [address] [address] [phone] pH of blood 6.0 [pH] Normal 4.5-8.0 [facility] Comment on above: Performed By: #### I CA, CBCDIF, VITD, PTHI, CMP, URIC ####[place] [address] [address] [place] [phone] Protein, Urine 30 mg/dL Critically abnormal Negative [facility] Comment on above: Performed By: #### I CA, CBCDIF, VITD, PTHI, CMP, URIC ####[place] [phone] [place] [phone] Specific [place], Ur 1.010 Normal 1.005-1.03 0 [facility] Comment on above: Performed By: #### I CA, CBCDIF, VITD, PTHI, CMP, URIC ####[place] [phone] [address] [place] [phone] Urine Kelby Comment SEE COMMENT Normal [facility] Comment on above: Result Comment: N/A Performed By: #### I CA, CBCDIF, VITD, PTHI, CMP, URIC ####[place] [phone] [address] Urine, clarity Cloudy Critically abnormal Clear [facility] Comment on above: Performed By: #### I CA, CBCDIF, VITD, PTHI, CMP, URIC ####[place] [address] [address] [place] [address] Urine, color Yellow Normal Yellow [facility] Comment on above: Performed By: #### I CA, CBCDIF, VITD, PTHI, CMP, URIC ####[place] [address] [address] [place] [address] Urine, epithelial cells in sediment SEE COMMENT Normal [facility] Comment on above: Result Comment: FewS quamous Epithelial Cells Performed By: #### I CA, CBCDIF, VITD, PTHI, CMP, URIC ####[place] [address] [address] [place] [address] Urine, glucose presence Negative Normal Negative [facility] Comment on above: Performed By: #### I CA, CBCDIF, VITD, PTHI, CMP, URIC ####[place] [address] [address] [place] [address] Urine, ketones presence Negative Normal Negative [facility] Comment on above: Performed By: #### I CA, CBCDIF, VITD, PTHI, CMP, URIC ####[facility] [place] [address] Urine, nitrite presence Negative Normal Negative [facility] Comment on above: Performed By: #### I CA, CBCDIF, VITD, PTHI, CMP, URIC ####[place] [address] [address] Urine, urobilinogen Normal Normal Normal [facility] Comment on above: Performed By: #### I CA, CBCDIF, VITD, PTHI, CMP, URIC ####[facility] [place], [place] [phone] WBC (Leukocytes) 10*3/uL Critically abnormal 0-5 [facility] Comment on above: Performed By: #### I CA, CBCDIF, VITD, PTHI, CMP, URIC ####[facility] [address] [place], [place] [phone] Urine Cultureon 10-21-2017 Urine culture, bacteria Sp. Request/Comment: - Specimen received in preservative Culture Result - No growth (<1,000 CFU/ml) Normal [facility] Comment on above: Performed By: #### I CA, CBCDIF, VITD, PTHI, CMP, URIC ####[facility] [address] [place], [place] [phone] HISTORY PHYSICALon HISTORY PHYSICAL HNO ID: [id number] thor: Tk (Sudeep) NIK Abdallaervice: UrologyAuthor Type: ResidentType: HANDPFiled: 10/21/2017 2:31 PMNote Text:HANDP: UROLOGY SERVICENAME: Darrell CmdMRN: [id number]: [id number] DATE: 10/19/2017SERVICE TIME: 5:04 AMPRINORTH [facility] CARE PHYSICIAN: Abigail Sanchez, [facility] AND [facility]. Alvin is a 67 year old male [...] with Dr. Adarsh Abdalla III, MDUrology PGY-2Pager: [phone] 201710:00Overnight and on weekends please page [phone] OF PRESENT ILLNESSMr. Nelson is a 67 [...] and 14mm in R renal pelvis Normal [facility] Basic Metabolic Panlon 10-13 Anion gap 12 mmol/L Normal 9-18 [facility] Comment on above: Performed By: #### I CA, CBCDIF, VITD, PTHI, CMP, URIC ####[facility] [address] [place], [place] [phone] Calcium 8.2 mg/dL Low 8.5-10.2 [facility] Comment on above: Performed By: #### I CA, CBCDIF, VITD, PTHI, CMP, URIC ####[facility] [address] [place], [place] [phone] Chloride 103 mmol/L Normal 97-105 [facility] Comment on above: Performed By: #### I CA, CBCDIF, VITD, PTHI, CMP, URIC ####[facility] [address] [place] [phone] CO2 25 mmol/L Normal 22-30 [facility] Comment on above: Performed By: #### I CA, CBCDIF, VITD, PTHI, CMP, URIC ####[place] [address] [address] [place] [phone] Creatinine 0.90 mg/dL Normal 0.73-1.22 [facility] Comment on above: Performed By: #### I CA, CBCDIF, VITD, PTHI, CMP, URIC ####[place] [address] [address] [place] [phone] eGFR (non-black) mL/min/{1.73_m2} Normal [facility] Comment on above: Performed By: #### I CA, CBCDIF, VITD, PTHI, CMP, URIC ####[place] [address] [address] [place] [phone] Result Comment: eGFR (Estimated GFR) Units of [...] Glucose mass conc 95 mg/dL Normal 74-99 [facility] Comment on above: Result Comment: The [place] [employer] (ADA) provides guidance for cutoff [...] Standards of Medical Care in Diabetes 2016, [place] [employer]. Diabetes Care. 2016.39(Suppl 1). Performed By: #### I CA, CBCDIF, VITD, PTHI, CMP, URIC ####[place] [address] [address] [place] [phone] Potassium molar conc 3.9 mmol/L Normal 3.7-5.1 [facility] Comment on above: Performed By: #### I CA, CBCDIF, VITD, PTHI, CMP, URIC ####[address] [phone] Sodium 140 mmol/L Normal 136-144 [facility] Comment on above: Performed By: #### I CA, CBCDIF, VITD, PTHI, CMP, URIC ####[place] [address] [address] [place] [phone] Urea nitrogen 7 mg/dL Low 9-24 [facility] Comment on above: Performed By: #### I CA, CBCDIF, VITD, PTHI, CMP, URIC ####[address] [place] [phone] CBC and Differentialon 10-13 Abs Baso 0.03 k/uL Normal <0.11 [facility] Comment on above: Performed By: #### I CA, CBCDIF, VITD, PTHI, CMP, URIC ####[place] [address] [address] [place] [phone] Abs [place] 1.28 k/uL High <0.87 [facility] Comment on above: Performed By: #### I CA, CBCDIF, VITD, PTHI, CMP, URIC ####[place] [address] [address] [place] [phone] Abs Neut 8.97 k/uL High 1.45-7.50 [facility] Comment on above: Performed By: #### I CA, CBCDIF, VITD, PTHI, CMP, URIC ####[place] [address] [address] [place] [phone] Basophils/100 WBC Auto (Bld) 0.2 % Normal [facility] Comment on above: Performed By: #### I CA, CBCDIF, VITD, PTHI, CMP, URIC ####[place] [address] [address] [place] [phone] DTYPE Auto Diff Normal [facility] Comment on above: Performed By: #### I CA, CBCDIF, VITD, PTHI, CMP, URIC ####[place] [address] [address] [place] [phone] Eosinophils 0.20 10*3/uL Normal <0.46 [facility] Comment on above: Performed By: #### I CA, CBCDIF, VITD, PTHI, CMP, URIC ####[place] [address] [address] [place] [phone] Eosinophils/100 leukocytes 1.6 % Normal [facility] Comment on above: Performed By: #### I CA, CBCDIF, VITD, PTHI, CMP, URIC ####[place] [address] [address] [place] [phone] Erythrocyte distribution width Auto Ratio (RBC) 12.4 % Normal 11.5-15.0 [facility] Comment on above: Performed By: #### I CA, CBCDIF, VITD, PTHI, CMP, URIC ####[place] [address] [address] [place] [phone] Erythrocytes (RBC) 4.29 10*6/uL Normal 4.20-6.00 [facility] Comment on above: Performed By: #### I CA, CBCDIF, VITD, PTHI, CMP, URIC ####[place] [address] [address] [place] [phone] Erythrocytes (RBC) 0.0 /100 WBC Normal 0 [facility] Comment on above: Performed By: #### I CA, CBCDIF, VITD, PTHI, CMP, URIC ####[place] [address] [address] [place] [phone] Erythrocytes (RBC) 10*6/uL Normal <0.01 [facility] Comment on above: Performed By: #### I CA, CBCDIF, VITD, PTHI, CMP, URIC ####[place] [address] [address] [place] [phone] Hematocrit (HCT) 38.8 % Low 39.0-51.0 [facility] Comment on above: Performed By: #### I CA, CBCDIF, VITD, PTHI, CMP, URIC ####[place] [address] [address] [place] [phone] Hemoglobin mass conc (Bld) 12.7 g/dL Low 13.0-17.0 [facility] Comment on above: Performed By: #### I CA, CBCDIF, VITD, PTHI, CMP, URIC ####[place] [address] [address] [place] [phone] Lymphocytes 2.16 10*3/uL Normal 1.00-4.00 [facility] Comment on above: Performed By: #### I CA, CBCDIF, VITD, PTHI, CMP, URIC ####[place] [address] [address] [place] [phone] Lymphocytes/100 leukocytes 17.1 % Normal [facility] Comment on above: Performed By: #### I CA, CBCDIF, VITD, PTHI, CMP, URIC ####[place] [address] [address] [place] [phone] MCH 29.6 pG Normal 26.0-34.0 [facility] Comment on above: Performed By: #### I CA, CBCDIF, VITD, PTHI, CMP, URIC ####[place] [address] [address] [place] [phone] MCHC mass conc (RBC) 32.7 g/dL Normal 30.5-36.0 [facility] Comment on above: Performed By: #### I CA, CBCDIF, VITD, PTHI, CMP, URIC ####[place] [address] [address] [place] [phone] MCV 90.4 fL Normal 80.0-100.0 [facility] Comment on above: Performed By: #### I CA, CBCDIF, VITD, PTHI, CMP, URIC ####[address] [place] [phone] Monocytes/100 leukocytes 10.1 % Normal [facility] Comment on above: Performed By: #### I CA, CBCDIF, VITD, PTHI, CMP, URIC ####[place] [address] [address] [place] [phone] Neutrophils/100 WBC Auto (Bld) 71.0 % Normal [facility] Comment on above: Performed By: #### I CA, CBCDIF, VITD, PTHI, CMP, URIC ####[place] [address] [address] [place] [phone] Platelet mean volume (PMV) 11.3 fL Normal 9.0-12.7 [facility] Comment on above: Performed By: #### I CA, CBCDIF, VITD, PTHI, CMP, URIC ####[address]CDav[place] [phone] Platelets 138 10*3/uL Low 150-400 [facility] Comment on above: Result Comment: Resu lt checked and verifiedNo clot detected. Performed By: #### I CA, CBCDIF, VITD, PTHI, CMP, URIC ####[place] [address] [place], [place] [phone] WBC (Leukocytes) 12.64 10*3/uL High 3.70-11.00 [facility] Comment on above: Performed By: #### I CA, CBCDIF, VITD, PTHI, CMP, URIC ####[address] [phone] CNDSon 10-13-2017 CNDS HNO ID: [id number] thor: Feliciano Santanaervice: UrologyAuthor Type: PhysicianType: Discharge SummariesFiled: 10/15/2017 3:53 PMNote Text:The [address] [address] or ([phone]) [facility] O N F I D E N T I A L I N F O R M A T I O N STANDARD [facility] [place], [facility] DOCUMENTDISCHARGE SUMMARYPatient Name: Darrell Silverio Date: 10/11/2017Discharge [...] hours for 3 days. Take 1000mg Tylenol (mvx162ix tablets) every 6 hours for 3 days. [...] Dorantes, MDDirector, Surgical Stone Disease, [facility] InstituteProfessor of Surgery, [facility] of MedicinePager [phone]/15/2017 Normal [facility] PLAN OF CAREon 10-13-2017 PLAN OF CARE HNO ID: [id number] thor: Angelique Serrano (Temporary Data Entry Clerk)Service: (none)Author Type: (none)Type: Plan of CareFiled: 10/13/2017 8:44 AMNote Text:FURNACE CHARGER BEDSIDE DELIVERY SURVEY1. Patient to use [facility] Bedside Delivery - NO prefer ownpharm[facility]2. If fax, patient would like us to fax prescriptions to [facility] a. Pharmacy: b. Location: c. Phone:3. Insurance card on file - NO4. Credit card for payment - NO Normal [facility] PROGRESSon 10-13-2017 PROGRESS HNO ID: [id number] thor: Shelly ([facility]) O'NeillService: UrologyAuthor Type: Nurse PractitionerType: Progress NotesFiled: 10/13/2017 11:00 AMNote Text:UROLOGY SERVICE PROGRESS NOTEName: Darrell CmdBed: G090 013/C458-43LVK: [id number]: October 13, 2017ASSESSMENT AND PLANDarrell Emmanuelle Nelson is a 67 year old male with history of HTN, nephrolithiasisnow POD#2 s/p PCNL and R JJ stent placement.#Neuro-Pain controlled on Tylenol#CV/Sgiw-BLR-Daz stable-Continue incentive spirometer use#GI-Diet - GI Soft/regular diet; tolerating without N/V#-Scr 0.90-UOP good-Christian: removed- voiding without difficulty#FEN-IVF NS @ 125 ml/hr#Activity - OOB to chair and Ambulate with assistance#DVT prophylaxis - SCDs, Pharmacologic DVT prophylaxis contraindicated dueto bleeding risk#Antibiotics - Perioperative antibiotics - Ancef#Secondary Dx and ComplicationsHTN- c/w home medications; [facility] Urocit HELD#Discharge teaching - routine teaching#Disposition - Discharge home todaySUBJECTIVE-Pain:controlled -CP/SOB: Denies-N/V:Denies-Bowel function:+Flatus. No BM-Ambulating: YesBrief HPI: No acute events throughout the night. Denies fever, chills.Voiding without difficulty. Doing well. Eager for discharge home.OBJECTIVEVital SignsBP 154/79 Pulse 89 Temp 36.9 ?C (98.4 ?F) (Oral) Resp 20 Ht 175.3cm (5' 9 ) Wt 80 kg (176 lb 5.9 oz) SpO2 96% BMI 26.05 kg/g2Jxuhc and OutputIntake/Output Summary (Last 24 hours) at 10/13/17 1047Last data filed at 10/13/17 1040 Gross per 24 hourIntake 3782 mlOutput 3250 mlNet 532 mlDrains:noneUrine: 3450ccPhysical ExamGeneral: Well appearing male, lying in bed in NADHEENT: Normocephalic, atraumaticCV:: RR, hemodynamically stable, well-perfusedResp: breathing comfortably on RA. CTAB.GI: Soft, non-tender, non-distended.: voiding spontaneouslyExtremities: No cyanosis or clubbing, No edemaNeuro: Alert and orientedPsych: Normal affectRecent Labs 10/12/1801650WBC 12.64* 14.41* 16.46*HB 12.7* 11.9* [...] mL ORAL q 6 H PRNphenol 1 [place] (CHLORASEPTIC) 1 [place] MUCOUS MEMBRANE (TOPICAL MOUTH ANDTHROAT) q 2 H PRNsimethicone, chewable 80 mg tab(s) (MYLICON) 80 mg ORAL q 8 H PRNoxybutynin 5 mg tab(s) (DITROPAN) 5 mg ORAL q 8 H PRNoxyCODONE IR 5-10 mg tab(s) (ROXICODONE) 5-10 mg ORAL q 4 H PRNNo past medical history on file.[facility] CenterXR 10/11/17IMPRESSION:NO ACUTE DISEASESIGNATURE: Shelly Cote CNP PAGER: [phone]: October 13, 2017TIME: 9:45amPlease page [phone] on weekends and after 4pm on weekdays Normal [facility] PROGRESS HNO ID: [id number] thor: Miguel (Res) BrykService: UrologyAuthor Type: ResidentType: Progress NotesFiled: 10/13/2017 6:47 AMNote Text:UROLOGY RESIDENT PROGRESS NOTEName: Darrell Handley BoydBed: G090 013/V333-85LXA: [id number]: October 13, 2017 =====SUBJECTIVE- no acute events overnight-Pain: controlled-N/V : No- Tolerated diet, ambulating, +ROBF ======OBJECTIVEVital SignsPatient Vitals for the past 8 hrs: BP Temp Temp src Pulse Resp RuX19510/13/17 0300 144/71 36.7 ?C (98 ?F) Oral [...] mL ORAL q 6 H PRNphenol 1 [place] (CHLORASEPTIC) 1 [place] MUCOUS MEMBRANE (TOPICAL MOUTH ANDTHROAT) q 2 H PRNsimethicone, chewable 80 mg tab(s) (MYLICON) 80 mg ORAL q 8 H PRNoxybutynin 5 mg tab(s) (DITROPAN) 5 mg ORAL q 8 H PRNoxyCODONE IR 5-10 mg tab(s) (ROXICODONE) 5-10 mg ORAL q 4 H PRN =====ASSESSMENT AND Celia Nelson is a 67 year old male [...] Perioperative antibiotics - ancef#ComplicationsNone#Seconda ry Dx-HTN- home losartanW[facility]th[facility] Development[facility] Centere urocit-K held#Discharge teaching - may need home going christian care teaching#Disposition - d/c todayThe patient's progress, lab findings, vitals, and clinical decision makingas documented above to be discussed with staff Dr. Schroeder. ========Miguel Zapata M.D.Urology PGY-2Pager: [phone] 20176:[phone] AMOvernight and on weekends please page [phone] Normal [facility] APTTon 10-12-2017 aPTT 27.4 s Normal 23.0-32.4 [facility] Comment on above: Result Comment: [...] reagent in use throughout the [facility]. Performed By: #### P T, PTT, MG1 ####[place] [address] [address], [place] [phone] Basic Metabolic Panlon 10-12 Anion gap 8 mmol/L Low 9-18 [facility] Comment on above: Performed By: #### C BCDIF, BMP ####[address] [phone] Calcium 8.2 mg/dL Low 8.5-10.2 [facility] Comment on above: Performed By: #### C BCDIF, BMP ####[place] [phone] Chloride 103 mmol/L Normal 97-105 [facility] Comment on above: Performed By: #### C BCDIF, BMP ####[place] [phone] CO2 31 mmol/L High 22-30 [facility] Comment on above: Performed By: #### C BCDIF, BMP ####[address] [phone] Creatinine 1.00 mg/dL Normal 0.73-1.22 [facility] Comment on above: Performed By: #### C BCDIF, BMP ####[place] [address] [address], [place] [phone] eGFR (non-black) mL/min/{1.73_m2} Normal [facility] Comment on above: Performed By: #### C BCDIF, BMP ####[place] [address] [address], [place] [phone] Result Comment: eGFR (Estimated GFR) Units of [...] Glucose mass conc 100 mg/dL High 74-99 [facility] Comment on above: Result Comment: The [place] Diabetes [employer] (ADA) provides guidance for cutoff [...] Standards of Medical Care in Diabetes 2016, [place] [employer]. Diabetes Care. 2016.39(Suppl 1). Performed By: #### C CHARLENE CONDON ####[address] [phone] Potassium molar conc 4.0 mmol/L Normal 3.7-5.1 [facility] Comment on above: Performed By: #### C CHARLENE CONDON ####[facility] [place], [place] [phone] Sodium 142 mmol/L Normal 136-144 [facility] Comment on above: Performed By: #### C CHARLENE CONDON ####[facility] [place], [place] [phone] Urea nitrogen 9 mg/dL Normal 9-24 [facility] Comment on above: Performed By: #### C CHARLENE CONDON ####[place] [address] [place], [place] [phone] CASE MGT INIT Daphnie 2017 CASE MGT INIT MING HNO ID: [id number]: Brigette (Rn) EMILIANO Museervice: Care ManagementAuthor Type: Registered NurseType: Care Mgt Initial AssessmentFiled: 10/12/2017 4:00 PMNote Text:CARE MANAGEMENT: ASSESSMENT AND DISCHARGE PLANSERVICE DATE: 10/12/2017SERVICE TIME: 3:57 PMPRIMARY CARE PHYSICIAN:Abigail Sanchez L.V. 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 NoHas the Patient Been in a Mcfp Facility in the Past 30 days? NoFREEDOM OF CHOICE EXPLAINED:N/RADHA COMMUNICATION:n/aAdm post op after pcnl. Spoke w/ pt at bedside. No skilled dc needsidentified, was independent prior to adm. Chief complaint is of his christian.Please contact overnight caregiver if needs arise prior to dc.SIGNATURE: Brigette Muse RN PATIENT NAME: Darrell ElizaldeATE: October 12, 2017 : 3:57 PM PAGER/CONTACT #: [phone] Normal [facility] CBC and Differentialon 10-12 Abs Baso 0.03 k/uL Normal <0.11 [facility] Comment on above: Performed By: #### C CHARLENE CONDON ####[facility], [place] [phone] Abs [place] 1.45 k/uL High <0.87 [facility] Comment on above: Performed By: #### C CHARLENE CONDON ####[facility], [place] [phone] Abs Neut 9.96 k/uL High 1.45-7.50 [facility] Comment on above: Performed By: #### CHARLENE SALAZAR ####[facility] [place], [place] [phone] Basophils/100 WBC Auto (Bld) 0.2 % Normal [facility] Comment on above: Performed By: #### CHARLENE SALAZAR ####[facility] [place], [place] [phone] DTYPE Auto Diff Normal [facility] Comment on above: Performed By: #### C BCDIKyra, BMP ####[place] [address], [place] [phone] Eosinophils 0.06 10*3/uL Normal <0.46 [facility] Comment on above: Performed By: #### C BCMARIELA, BMP ####[place] [address] [place] [phone] Eosinophils/100 leukocytes 0.4 % Normal [facility] Comment on above: Performed By: #### C BCMARIELA, BMP ####[place] [address] [place] [phone] Erythrocyte distribution width Auto Ratio (RBC) 12.6 % Normal 11.5-15.0 [facility] Comment on above: Performed By: #### C BCMARIELA, BMP ####[place] [address] [place] [phone] Erythrocytes (RBC) 0.0 /100 WBC Normal 0 [facility] Comment on above: Performed By: #### C BCMARIELA, BMP ####[place] [address] [place] [phone] Erythrocytes (RBC) 3.97 10*6/uL Low 4.20-6.00 [facility] Comment on above: Performed By: #### C BCDIF, BMP ####[place] [address] [place] [phone] Erythrocytes (RBC) 10*6/uL Normal <0.01 [facility] Comment on above: Performed By: #### C BCDIF, BMP ####[place] [address], [place] [phone] Hematocrit (HCT) 35.9 % Low 39.0-51.0 [facility] Comment on above: Performed By: #### C DAVONTEDIF, BMP ####[place] [address], [place] [phone] Hemoglobin mass conc (Bld) 11.9 g/dL Low 13.0-17.0 [facility] Comment on above: Performed By: #### C BCDIF, BMP ####[place] [address] [place] [phone] Lymphocytes 2.91 10*3/uL Normal 1.00-4.00 [facility] Comment on above: Performed By: #### C BCDIF, BMP ####[place] [address] [place] [phone] Lymphocytes/100 leukocytes 20.2 % Normal [facility] Comment on above: Performed By: #### C BCDIF, BMP ####[place] [address] [place] [phone] MCH 30.0 pG Normal 26.0-34.0 [facility] Comment on above: Performed By: #### C BCDIF, BMP ####[place] [address] [place] [phone] MCHC mass conc (RBC) 33.1 g/dL Normal 30.5-36.0 [facility] Comment on above: Performed By: #### C BCDIF, BMP ####[place] [address] [place] [phone] MCV 90.4 fL Normal 80.0-100.0 [facility] Comment on above: Performed By: #### C BCDIF, BMP ####[place] [address] [place] [phone] Monocytes/100 leukocytes 10.1 % Normal [facility] Comment on above: Performed By: #### C BCDIF, BMP ####[place] [address] [place] [phone] Neutrophils/100 WBC Auto (Bld) 69.1 % Normal [facility] Comment on above: Performed By: #### C ROSEANNA, BMP ####[place] [address] [place], [place] [phone] Platelet mean volume (PMV) 11.2 fL Normal 9.0-12.7 [facility] Comment on above: Performed By: #### C ROSEANNA, BMP ####[place] [address] [place], [place] [phone] Platelets 124 10*3/uL Low 150-400 [facility] Comment on above: Result Comment: Resu lt checked and verifiedNo clot detected. Performed By: #### C ROSEANNA, BMP ####[facility] [place], [place] [phone] WBC (Leukocytes) 14.41 10*3/uL High 3.70-11.00 [facility] Comment on above: Performed By: #### C ROSEANNA, BMP ####[place] [address] [place], [place] [phone] Magnesiumon 10-12-2017 Magnesium 1.7 mg/dL Normal 1.7-2.3 [facility] Comment on above: Performed By: #### P T, PTT, MG1 ####[facility] [place], [place] [phone] PROGRESSon 10-12-2017 PROGRESS HNO ID: [id number] thor: Feliciano Santanaervice: (none)Author Type: PhysicianType: Progress NotesFiled: 10/12/2017 1:40 PMNote Text:STAFF UROLOGY NOTE:Patient's Hb dropped nearly 2 grams post-op and his urine was too bloodythis morning for voiding trial or discharge. Will plan to keep in houseanother day.Feliciano Schroeder MDDirector, Surgical Stone Disease, [facility]ic InstituteProfessor of Surgery, [facility] HospitalPager [phone]/12/2017 Normal [facility] PROGRESS HNO ID: [id number] thor: Shelly Cabrera) O'NeillService: UrologyAuthor Type: Nurse PractitionerType: Progress NotesFiled: 10/12/2017 1:31 PMNote Text:UROLOGY SERVICE PROGRESS NOTEName: Darrell CmdBed: G090 013/Y310-39HBN: [id number]: October 12, 2017ASSESSMENT AND PLANMarvin Emmanuelle Nelson is a 67 year old male with history of HTN, nephrolithiasisnow POD#1 s/p PCNL and R JJ stent placement.#Neuro-Pain controlled on Tylenol#CV/Eums-WLJ-Dem stable#GI-Diet - GI Soft/regular diet; tolerating without N/V+Flatus. 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#FEN-IVF NS @ 125 ml/hr#Activity - OOB to chair and Ambulate with assistance#DVT prophylaxis - SCDs, Pharmacologic DVT prophylaxis contraindicated dueto bleeding risk#Antibiotics - Perioperative antibiotics - Ancef#Secondary Dx and ComplicationsHTN- c/w home medications; [facility]#Discharge teaching - routine teaching#Disposition - [...] lb 5.9 oz) SpO2 95% BMI 26.05 kg/t4Vnmba and OutputIntake/Output Summary (Last 24 hours) at 10/12/17 1302Last data filed at 10/12/17 1000 Gross per 24 hourIntake 4023 mlOutput 1975 mlNet 2048 mlDrains:NoneUrine: 1625ccPhysical ExamGeneral: Well appearing male in NADHEENT: Normocephalic, atraumaticCV:: RRR, hemodynamically stable, well-perfusedResp: breathing comfortably on RA.GI: Soft, nontender, nondistended.: Christian catheter draining general engineer red urineExtremities: No cyanosis or clubbing, No [...] mL ORAL q 6 H PRNphenol 1 [place] (CHLORASEPTIC) 1 [place] MUCOUS MEMBRANE (TOPICAL MOUTH ANDTHROAT) q 2 H PRNsimethicone, chewable 80 mg tab(s) (MYLICON) 80 mg ORAL q 8 H PRNoxybutynin 5 mg tab(s) (DITROPAN) 5 mg ORAL q 8 H PRNoxyCODONE IR 5-10 mg tab(s) (ROXICODONE) 5-10 mg ORAL q 4 H PRNNo past medical history on file.ImagingCXR 10/11/17IMPRESSION:NO ACUTE DISEASESIGNATURE: Shelly Cote CNP PAGER: [phone]: October 12, 2017TIME: 11:15amPlease page [phone] on weekends and after 4pm on weekdays Normal [facility] PROGRESS HNO ID: [id number] thor: Miguel (Res) BrykService: UrologyAuthor Type: ResidentType: Progress NotesFiled: 10/12/2017 6:47 AMNote Text:UROLOGY RESIDENT PROGRESS NOTEName: Darrell Emmanuelle BoydBed: G090 013/M534-40MCW: [id number]: October 12, 2017 =====SUBJECTIVE- no acute events overnight-Pain: controlled-N/V : No- Tolerated clears, eager for food =====OBJECTIVEVital SignsPatient Vitals for the past 8 hrs: BP Temp Temp src Pulse Resp SpO2 Height Nrnevx91/10/18 1922 148/81 36.7 ?C (98.1 ?F) Oral [...] mL ORAL q 6 H PRNphenol 1 [place] (CHLORASEPTIC) 1 [place] MUCOUS MEMBRANE (TOPICAL MOUTH ANDTHROAT) q 2 [...] staff Dr. Schroeder. ========Miguel Zapata M.D.Urology PGY-2Pager: [phone] 2017Overnight and on weekends please page [phone] Normal [facility] Protimeon 10-12-2017 INR Coag RelTime (Bld) 1.0 {INR} Normal 0.9-1.3 [facility] Comment on above: Result Comment: Laisha min K Antagonist (VKA) Therapeutic Range: INR 2 to 3 (Target INR of 2.5)Note: For patients treated with VKA drugs, such as warfarin, the [place] [employer] 2012 Guideline recommends [...] al. Chest 2012, 141:7S-47SNishjohana RA, et al. [facility] 2017, 70: 252-289 Performed By: #### P T, PTT, MG1 ####[facility] [address] [place], [place] [phone] PT Sec 10.8 sec Normal 9.7-13.0 [facility] Comment on above: Performed By: #### P T, PTT, MG1 ####[facility] [address] [place], [place] [phone] ANES Woody 10-11-2017 ANES POST HNO ID: [id number] thor: Teresita RosadoSermarlenye: AnesthesiologyAuthor Type: PhysicianType: Anesthesia [...] 11, 2017 : 4:07 PM PAGER/CONTACT #: [phone] [facility] BRIEF OP NOTon 10-11-2017 BRIEF OP NOT HNO ID: [id number] thor: Miguel (Sudeep) BrykService: UrologyAuthor Type: ResidentType: Brief Op NoteFiled: 10/11/2017 3:17 PMNote Text:UROLOGY BRIEF OPERATIVE NOTELOG ID: [id number]/Procedure Date: 10/11/2017Incision/Procedure Start Time: 1:38 PMIncision Close/Procedure [...] 30 FrenchTract Dilation Device: BalloonSurgeon(s)/Proceduralist (s) and Oracle Database Administrator(s):Surgeon(s) and Role: * Feliciano Schroeder - Primary * Miguel (Sudeep) Benny - Resident - Assisting * Damon (Toño) Katerine - FellowNo Additional StaffAnesthesia: GeneralFLUIDSIntake: 1200ccUrine Output: n/a, irrigationEstimated Blood Loss: 50 mlsAccidental punctures or Lacerations: noneComplications: NoneDrains: Christian, 20fr coude tipImplants: [id number] JJ ureteral stentCultures: NoneFindings: Soft stones in R Renal pelvis and R lower pole (>3cm). Lowerpole access. Stone free at end of the case.Specimens:Specimen ID Type Site Comments Sent Toother Stone stones sent to PACU with patient OtherPost-Op Plan of Care:To RNFSIGNATURE: Miguel Zapata MD PATIENT NAME: Darrell Xavier: October 11, 2017 : 3:11 PM PAGER/CONTACT #: [phone] after hours issues, please call the on-call urology pager [phone] Normal [facility] CBC and Differentialon 10-11 Abs Baso 0.03 k/uL Normal <0.11 [facility] Comment on above: Performed By: #### C BCDIF ####[facility] [place], [place] [phone] Abs [place] 1.18 k/uL High <0.87 [facility] Comment on above: Performed By: #### C BCDIF ####[place] [address], [place] [phone] Abs Neut 12.38 k/uL High 1.45-7.50 [facility] Comment on above: Performed By: #### C BCDIF ####[place] [address], [place] [phone] Basophils/100 WBC Auto (Bld) 0.2 % Normal [facility] Comment on above: Performed By: #### C BCDIF ####[place] [address], [place] [phone] DTYPE Auto Diff Normal [facility] Comment on above: Performed By: #### C BCDIF ####[place] [address], [place] [phone] Eosinophils 0.06 10*3/uL Normal <0.46 [facility] Comment on above: Performed By: #### C BCDIF ####[place] [address], [place] [phone] Eosinophils/100 leukocytes 0.4 % Normal [facility] Comment on above: Performed By: #### C BCDIF ####[place] [address], [place] [phone] Erythrocyte distribution width Auto Ratio (RBC) 12.4 % Normal 11.5-15.0 [facility] Comment on above: Performed By: #### C BCDIF ####[place] [address], [place] [phone] Erythrocytes (RBC) 0.0 /100 WBC Normal 0 [facility] Comment on above: Performed By: #### C BCDIF ####[place] [address], [place] [phone] Erythrocytes (RBC) 10*6/uL Normal <0.01 [facility] Comment on above: Performed By: #### C BCDIF ####[address] [place] [phone] Erythrocytes (RBC) 4.42 10*6/uL Normal 4.20-6.00 [facility] Comment on above: Performed By: #### C BCDIF ####[address] [place] [phone] Hematocrit (HCT) 39.7 % Normal 39.0-51.0 [facility] Comment on above: Performed By: #### C BCDIF ####[place] [phone] Hemoglobin mass conc (Bld) 13.7 g/dL Normal 13.0-17.0 [facility] Comment on above: Performed By: #### C BCDIF ####[place] [phone] Lymphocytes 2.81 10*3/uL Normal 1.00-4.00 [facility] Comment on above: Performed By: #### C BCDIF ####[place] [phone] Lymphocytes/100 leukocytes 17.1 % Normal [facility] Comment on above: Performed By: #### C BCDIF ####[place] [phone] MCH 31.0 pG Normal 26.0-34.0 [facility] Comment on above: Performed By: #### C BCDIF ####[address] [phone] MCHC mass conc (RBC) 34.5 g/dL Normal 30.5-36.0 [facility] Comment on above: Performed By: #### C BCDIF ####[place] [address], [place] [phone] MCV 89.8 fL Normal 80.0-100.0 [facility] Comment on above: Performed By: #### C BCDIF ####[place] [address], [place] [phone] Monocytes/100 leukocytes 7.2 % Normal [facility] Comment on above: Performed By: #### C BCDIF ####[place] [address], [place] [phone] Neutrophils/100 WBC Auto (Bld) 75.1 % Normal [facility] Comment on above: Performed By: #### C BCDIF ####[address], [place] [phone] Platelet mean volume (PMV) 11.3 fL Normal 9.0-12.7 [facility] Comment on above: Performed By: #### C BCDIF ####[place] [address], [place] [phone] Platelets 147 10*3/uL Low 150-400 [facility] Comment on above: Performed By: #### C BCDIF ####[place] [address], [place] [phone] WBC (Leukocytes) 16.46 10*3/uL High 3.70-11.00 [facility] Comment on above: Performed By: #### C BCDIF ####[place] [address], [place] [phone] Calculi Analysison 8 Calculus Type stone Normal [facility] Comment on above: Performed By: #### I CA, CBCDIF, VITD, PTHI, CMP, URIC ####[place] [address], [place] [phone] Note (NOTE) Normal [facility] Comment on above: Result Comment: Calc ulus Color: OFF WHITECalculus Size & Weight: MULTIPLE PIECES, 0.5788 GRAMSComposition: CALCIUM PHOSPHATE - 60% CALCIUM OXALATE MONOHYDRATE - 30% MINOR COMPONENTS - 10%This test was developed and its performance characteristicsdetermined by the [facility] [place] [place] [facility] Pathology andLabor[facility] [place] ([facility]).It has not been cleared or approved by the FDA.-[facility] is regulated under CLIA as qualified to performhigh-complexity testing.This test is used for clinical purposes. It should not be regarded asinvestigational or for research. Performed By: #### I CA, CBCDIF, VITD, PTHI, CMP, URIC ####[facility] [address] [place], [place] [phone] NURSING PROGon 10-11-2017 NURSING PROG HNO ID: [id number] thor: Melita TenorioRn) EMILIANO Loyaervice: (none)Author Type: Registered NurseType: Nursing Progress NoteFiled: 10/11/2017 8:01 PMNote Text:Admission/Transfer NotePATIENT NAME: Darrell DennisRN: [id number] admitted from PACU via stretcher in stable condition.Actions taken: Patient oriented to room, call light function, prescribedactivities, Patient rights and Quiet at night.This note was completed by: Melita Loya RN Normal [facility] NURSING PROG HNO ID: [id number] thor: EMILIANO So Rnervice: NursingAuthor Type: Registered NurseType: Nursing Progress NoteFiled: 10/11/2017 10:50 AMNote Text:PRE OP LEARNING ASSESSMENTPROCEDURE/SURGERY: SURGERY: PreopREADINESS TO LEARN: InterestedCOGNITIVE ABILITY: Alert and orientedMOTIVATION TO LEARN: EagerFAMILY SUPPORT: High - Very involved in pt carePATIENT LEARNS BEST BY: Multiple MethodsFACTORS AFFECTING LEARNING: NonePHYSICAL LIMITATIONS AFFECTING LEARNING: NoneElectronically Signed By: May Moffett RN In Department: HOSPMAIN M023 Normal [facility] OPERATIVE NOon 10-11-2017 OPERATIVE NO HNO ID: [id number] thor: Feliciano NobleService: UrologyAuthor Type: PhysicianType: Operative ReportFiled: 10/12/2017 9:11 AMNote Text:OPERATIVE/PROCEDURE REPORTLOG ID: [id number]/Procedure Date: 10/11/2017Incision/Procedure Start Time: 1:38 PMIncision Close/Procedure End Time: 3:13 PMSurgeon(s)/Proceduralist(s) and Oracle Database Administrator(s):Surgeon(s) and Role: * Feliciano Schroeder - Primary [...] and draped in the standard sterile fashion.First podiatric medicine professor images were obtained noting two opacities in [...] pulled out through theurethral meatus to gain lcetnqh-ggr-qdwdhko access.A glide catheter was used to exchange the garumrx-wmn-ycbonlg guidewirefor an Amplatz superstiff wire. The ureteroscope was re-inserted to theaccessed calyx. An 8/10 Fr dilator was then used to gently dilate thetract. The tract was incised at the skin for 10 mm. The The car easily beat X-Forceballoon was advanced over the wire and [...] Garcias and Dr. Zapata.Miguel Zapata M.D.Urology PGY-2Pager: [phone] [phone] PMOvernight and on weekends please page [phone] RADHA Schroederirector, Surgical Stone Disease, [facility] InstituteProfessor of Surgery, [facility] HospitalPager [phone]/12/2017 Normal [facility] PROGRESSon 10-11-2017 PROGRESS HNO ID: [id number] thor: Tyler (Res) Rick Ruizice: Pediatric UrologyAuthor Type: ResidentType: Progress NotesFiled: 10/11/2017 [...] mL ORAL q 6 H PRNphenol 1 [place] (CHLORASEPTIC) 1 [place] MUCOUS MEMBRANE (TOPICAL MOUTH ANDTHROAT) q 2 [...] lb 5.9 oz) SpO2 99% BMI 26.05 kg/c9BXXWZTRA EXAM:GENERAL: no distressNEURO: EYXGYn2RXJVY: breathing comfortably on 2LCARDIAC: warm and well [...] routine teachingDischarge planning - pendingTyler Ramos MD.Pg [phone] Normal [facility] PT EDon 10-11-2017 PT ED HNO ID: [id number] thor: Ccf ProviderService: (none)Author Type: PhysicianType: Patient EducationFiled: 10/11/2017 7:15 PMNote Text:[facility] TownshipPatient Education Report Name: DARRELL NELSON Date: 10/11/2017 Time: 7:15 PMPatient Ordered Video: Inpatient Fallsfrom [id number] via phone number [phone] at 7:15 PM Normal [facility] XR CHEST 1V FRONTAL PORTon [...] ORDOÑEZ MD on Oct 11 2017 4:13PM [id number] Normal [facility] CNCOon 10-05-2017 CNCO Letter Text10/05/2017M teresa [place] [address] [id number] Mr. Nelson:Your recent 24 hour urine test [...] for future kidney stones. You may contact [facility] [phone] with any questions or concerns.Sincerely,Feliciano Schroeder M.D.ELECTRONICALLY SIGNED Normal [facility] CBC and Differentialon 09-12 Abs Baso 0.04 k/uL Normal <0.11 [facility] Comment on above: Performed By: #### I CA, CBCDIF, VITD, PTHI, CMP, URIC ####[facility] [address] [place], [place] [phone] Abs [place] 1.26 k/uL High <0.87 [facility] Comment on above: Performed By: #### I CA, CBCDIF, VITD, PTHI, CMP, URIC ####[place] [address] [place] [phone] Abs Neut 6.39 k/uL Normal 1.45-7.50 [facility] Comment on above: Performed By: #### I CA, CBCDIF, VITD, PTHI, CMP, URIC ####[place] [address] [place] [phone] Basophils/100 WBC Auto (Bld) 0.3 % Normal [facility] Comment on above: Performed By: #### I CA, CBCDIF, VITD, PTHI, CMP, URIC ####[place] [address] [place] [phone] DTYPE Auto Diff Normal [facility] Comment on above: Performed By: #### I CA, CBCDIF, VITD, PTHI, CMP, URIC ####[place] [phone] Eosinophils 0.10 10*3/uL Normal <0.46 [facility] Comment on above: Performed By: #### I CA, CBCDIF, VITD, PTHI, CMP, URIC ####[place] [address] [place] [phone] Eosinophils/100 leukocytes 0.9 % Normal [facility] Comment on above: Performed By: #### I CA, CBCDIF, VITD, PTHI, CMP, URIC ####[place] [address] [place] [phone] Erythrocyte distribution width Auto Ratio (RBC) 12.9 % Normal 11.5-15.0 [facility] Comment on above: Performed By: #### I CA, CBCDIF, VITD, PTHI, CMP, URIC ####[place] [address] [place] [phone] Erythrocytes (RBC) 0.0 /100 WBC Normal 0 [facility] Comment on above: Performed By: #### I CA, CBCDIF, VITD, PTHI, CMP, URIC ####[place] [address] [place] [phone] Erythrocytes (RBC) 4.74 10*6/uL Normal 4.20-6.00 [facility] Comment on above: Performed By: #### I CA, CBCDIF, VITD, PTHI, CMP, URIC ####[place] [address] [place] [phone] Erythrocytes (RBC) 10*6/uL Normal <0.01 [facility] Comment on above: Performed By: #### I CA, CBCDIF, VITD, PTHI, CMP, URIC ####[place] [address] [place] [phone] Hematocrit (HCT) 43.7 % Normal 39.0-51.0 [facility] Comment on above: Performed By: #### I CA, CBCDIF, VITD, PTHI, CMP, URIC ####[place] [address] [place] [phone] Hemoglobin mass conc (Bld) 14.2 g/dL Normal 13.0-17.0 [facility] Comment on above: Performed By: #### I CA, CBCDIF, VITD, PTHI, CMP, URIC ####[place] [address] [place] [phone] Lymphocytes 3.64 10*3/uL Normal 1.00-4.00 [facility] Comment on above: Performed By: #### I CA, CBCDIF, VITD, PTHI, CMP, URIC ####[place] [address] [place] [phone] Lymphocytes/100 leukocytes 31.8 % Normal [facility] Comment on above: Performed By: #### I CA, CBCDIF, VITD, PTHI, CMP, URIC ####[facility] [place] [phone] MCH 30.0 pG Normal 26.0-34.0 [facility] Comment on above: Performed By: #### I CA, CBCDIF, VITD, PTHI, CMP, URIC ####[place] [address] [place] [phone] MCHC mass conc (RBC) 32.5 g/dL Normal 30.5-36.0 [facility] Comment on above: Performed By: #### I CA, CBCDIF, VITD, PTHI, CMP, URIC ####[place] [address] [place] [phone] MCV 92.2 fL Normal 80.0-100.0 [facility] Comment on above: Performed By: #### I CA, CBCDIF, VITD, PTHI, CMP, URIC ####[place] [address] [place] [phone] Monocytes/100 leukocytes 11.0 % Normal [facility] Comment on above: Performed By: #### I CA, CBCDIF, VITD, PTHI, CMP, URIC ####[place] [address] [place] [phone] Neutrophils/100 WBC Auto (Bld) 56.0 % Normal [facility] Comment on above: Performed By: #### I CA, CBCDIF, VITD, PTHI, CMP, URIC ####[place] [address] [place] [phone] Platelet mean volume (PMV) 11.2 fL Normal 9.0-12.7 [facility] Comment on above: Performed By: #### I CA, CBCDIF, VITD, PTHI, CMP, URIC ####[place] [address] [place] [phone] Platelets 206 10*3/uL Normal 150-400 [facility] Comment on above: Performed By: #### I CA, CBCDIF, VITD, PTHI, CMP, URIC ####[facility] [address] [place], [place] [phone] WBC (Leukocytes) 11.43 10*3/uL High 3.70-11.00 [facility] [facility] Comment on above: Performed By: #### I CA, CBCDIF, VITD, PTHI, CMP, URIC ####[facility] [address] [place], [place] [phone] CNOVon 09-12-2017 CNOV Office Visit (RASHAAD) DARRELL NELSON ([id number]) 1950 [facility] Time Provider Imehtyrldd36/12/17 10:30 AM FELICIANO SCHROEDER During your visit [...] Urine Negative NegativeKetones, Urine Negative 1+ (A)Specific [place], Ur 1.005 - 1.030 1.016Hemoglobin/Blood,Ur Negative 2+ [...] with more than 50% of the total onif-no-jueh time ofthe visit devoted to patient counseling/coordination of care.Feliciano Schroeder, MDDirector, Surgical Stone Disease, [facility]rolog[facility] InstituteProfessor of Surgery, [facility] MedicinePager [phone]/12/2017Bonita Ozuna CNP 09/12/2017 7:38 PM SignedUROLOGY SURGICAL HANDamp;PSERVICE DATE: 09/12/2017REFERRING PROVIDER: Cleveland Llanes MD[address] [facility] [id number]: No PcpGENDER:SUBJECTIVECHIEF COMPLAINT: Pre-op examHISTORY OF PRESENT [...] symtoms or problems.No history of angina, CHF, [place], cardiac surgery of stents.Respiratory: Negative for current cough, dyspnea. No hx of pneumonia in thepast six weeksPositive: PND, sinus drainage from allergiesGastrointestinal: No history of GERD, PUD, abd pain, difficulty swallowing, GIbleed.Renal: +stonesMusculoskeletal: Negative for joint pain or swelling, back pain or muscle pain.Skin: Negative for lesions, rash and itching.Psychological: No history of psychiatric symptoms or problems.Neurologic: No history of TIA's, stroke, DOCK CLERK tumor, impaired sensorium,hemiplegia, paraplegia or quadriplegia. No [...] 10ANDquot;) Wt 79.4 kg (175 lb) BMI25.11 kg/g8Lbwvcalfxjv Max: @TMAXREFRESH(24)@ALLERGIES:ISIS RGIESNo Known AllergiesLABS:No results found for: BUNNo results found for: CREATNo results found for: PSAGlucose, Urine (mg/dL)Date Value09/12/2017 Negative Bilirubin, Urine (no units)Date Value09/12/2017 Negative Ketones, Urine (no units)Date Value09/12/2017 1+ (A) Specific [place], Ur (no units)Date Value09/12/2017 1.016 Hemoglobin/Blood ,Ur [...] Calculus, kidney (primary encounter diagnosis)N20.1 Calculus of fgfntgT79.9 Right flank painI10 Essential putmcmybgllpH21.1 Family history of bqvxqhxwgnkqydcR49.49 Family history of cembfmvvorppffcyaraX39.9 Low vitamin D vpxykK85.90 Abnormal urinalysisGLICKHINESVILLE UROLOGICAL AND KIDNEY INSTITUTEPRE-OP NOTEDate of Procedure: [...] 11:45 AM PAGER/CONTACT #:Referring Provider: CLEVELAND LLANES [[id number]]Allergies As of Date: 09/12/2017(No Known Allergies)Date Reviewed: 09/12/2017Reviewed by: Az Ann MA - Fully AssessedPrimary Visit Diagnosis:Calculus, kidney [N20.0] Other Visit Diagnoses:Calculus of ureter [N20.1] Right flank pain [R10.9] Essential hypertension [I10] Family history of nephrolithiasis [Z84.1] Family history of hyperparathyroidism [Z83.49] Low vitamin D level [E55.9] Abnormal urinalysis [R82.90]Order(s):UA CHEMSTRIP ONLY [SQUA] Order #: [id number] FUTURE UA CHEMSTRIP ONLY [SQUA] Order #: [id number]. #:[id number] VITAMIN D 25 HYDROXY [SQVITD] Order #: [id number] FUTURE CBC + DIFF [SQCBCDIF] Order #: [id number] FUTURE COMP METABOLIC PANEL [SQCMP] Order #: [id number] FUTURE PTH INTACT BLD [SQPTHI] Order #: [id number] FUTURE URIC ACID BLOOD [SQURIC] Order #: [id number] FUTURE TYPE + SCREEN,30 DAY [PRCGIZ62] Order #: [id number] FUTURE CONFIRM BLOOD TYPE [SQCONABO] Order #: [id number] FUTURE ECG COMPLETE W INTERPRETATION [ECG01] Order #: [id number] FUTURE [facility] [6799157] Order #: [id number] CALCIUM IONIZED B [SQICA] Order #: [id number] FUTURE URINE CULTURE [SQURCUL] Order #: [id number]. #:[id number] iptions as of 09/12/2017 Sig: MULTIVITAMIN TABLET [...] History RecordedLetter TextDecember 2016Cleveland Llanes MD[address] [place] [place] [address]GCAI: Katherine Nelson NO: [id number] OF SERVICE: 09/12/2017Dear Dr. Llanes,I recently saw your patient, Mr. Nelson, in the [facility].Enclosed is a copy of my clinic note which should be self-explanatoryregarding findings, recommendations, and treatment plan. Please don'thesitate to contact me if there are questions.Sincerely,Feliciano Schroeder M.D.Staff Urologist, [facility]ELECTRONICALLY SIGNEDcc: Abigail Sanchez M.D., [address] [place] [phone] Number: [id number] Status:Closed by FELICIANO SCHROEDER MD on 09/12/17 Normal [facility] Calcium, Ionizedon 7 Calcium 1.14 mmol/L Normal 1.08-1.30 [facility] Comment on above: Performed By: #### I CA, CBCDIF, VITD, PTHI, CMP, URIC ####[facility] [place], [place] [phone] Calcium, Ionized 1.20 mmol/L Normal 1.08-1.30 [facility] Comment on above: Performed By: #### I CA, CBCDIF, VITD, PTHI, CMP, URIC ####[facility] [address] [place], [place] [phone] Comp Metabolic Panelon 09-12 Alanine aminotransferase (ALT) 43 U/L Normal 10-54 [facility] Comment on above: Performed By: #### I CA, CBCDIF, VITD, PTHI, CMP, URIC ####[facility] [place] [address] [address]CRich[address] [phone] Albumin 3.8 g/dL Low 3.9-4.9 [facility] Comment on above: Performed By: #### I CA, CBCDIF, VITD, PTHI, CMP, URIC ####[place] [address] [address] [place] [phone] Alkaline phosphatase (ALP) 98 U/L Normal 36-108 [facility] Comment on above: Performed By: #### I CA, CBCDIF, VITD, PTHI, CMP, URIC ####[place] [address] [address] [phone] Anion gap 15 mmol/L Normal 9-18 [facility] Comment on above: Performed By: #### I CA, CBCDIF, VITD, PTHI, CMP, URIC ####[address] [place] [phone] Aspartate aminotransferase (AST) 40 U/L Normal 14-40 [facility] Comment on above: Performed By: #### I CA, CBCDIF, VITD, PTHI, CMP, URIC ####[place] [address] [address] [place] [phone] Bilirubin (total) 0.5 mg/dL Normal 0.2-1.3 [facility] Comment on above: Performed By: #### I CA, CBCDIF, VITD, PTHI, CMP, URIC ####[place] [address] [address] [place] [phone] Calcium 9.3 mg/dL Normal 8.5-10.2 [facility] Comment on above: Performed By: #### I CA, CBCDIF, VITD, PTHI, CMP, URIC ####[place] [address] [address] [place] [phone] Chloride 100 mmol/L Normal 97-105 [facility] Comment on above: Performed By: #### I CA, CBCDIF, VITD, PTHI, CMP, URIC ####[facility] [address] AveCDavid [place] [phone] CO2 26 mmol/L Normal 22-30 [facility] Comment on above: Performed By: #### I CA, CBCDIF, VITD, PTHI, CMP, URIC ####[facility]CDav[address] [place] [phone] Creatinine 1.05 mg/dL Normal 0.73-1.22 [facility] Comment on above: Performed By: #### I CA, CBCDIF, VITD, PTHI, CMP, URIC ####[facility] AveCDav[address] [place] [phone] eGFR (non-black) mL/min/{1.73_m2} Normal [facility] Comment on above: Performed By: #### I CA, CBCDIF, VITD, PTHI, CMP, URIC ####[facility] [address] AveCDav[address] [place] [phone] Result Comment: eGFR (Estimated GFR) Units of [...] Glucose mass conc 92 mg/dL Normal 74-99 [facility] Comment on above: Result Comment: The [place] Diabetes Association (ADA) provides guidance for cutoff [...] Standards of Medical Care in Diabetes 2016, [place] [employer] Association. Diabetes Care. 2016.39(Suppl 1). Performed By: #### I CA, CBCDIF, VITD, PTHI, CMP, URIC ####[place] [address] [address] [place] [phone] Potassium molar conc 4.0 mmol/L Normal 3.7-5.1 [facility] Comment on above: Performed By: #### I CA, CBCDIF, VITD, PTHI, CMP, URIC ####[place] [address] [address] [place] [phone] Protein 7.5 g/dL Normal 6.3-8.0 [facility] Comment on above: Performed By: #### I CA, CBCDIF, VITD, PTHI, CMP, URIC ####[place] [address] [address] [place] [phone] Sodium 141 mmol/L Normal 136-144 [facility] Comment on above: Performed By: #### I CA, CBCDIF, VITD, PTHI, CMP, URIC ####[facility] [place] [phone] Urea nitrogen 10 mg/dL Normal 9-24 [facility] Comment on above: Performed By: #### I CA, CBCDIF, VITD, PTHI, CMP, URIC ####[place] [address] [address] [place] [phone] Confirm Blood Typeon 017 ABO/RH(D) Positive Normal [facility] Comment on above: Performed By: #### C ONABO ####[place] [address] [place] [phone] HISTORY PHYSICALon 7 HISTORY PHYSICAL HNO ID: [id number] thor: Bonita (Cyanide Pot Tender) DigennaroService: (none)Author Type: Nurse PractitionerType: HANDPFiled: 09/12/2017 7:38 PMNote Text:UROLOGY SURGICAL HANDPSERVICE DATE: 09/12/2017REFERRING PROVIDER: Cleveland Llanes MD[address] [place] [id number]: No PcpGENDER:SUBJECTIVECHIEF COMPLAINT: Pre-op examHISTORY OF PRESENT [...] symtoms or problems.No history of angina, CHF, [place], cardiac surgery of stents.Respiratory: Negative for current cough, dyspnea. No hx of pneumonia inthe past six weeksPositive: PND, sinus drainage from allergiesGastrointestinal: No history of GERD, PUD, abd pain, difficultyswallowing, GI bleed.Renal: +stonesMusculoskeletal: Negative for joint pain or swelling, back pain or musclepain.Skin: Negative for lesions, rash and itching.Psychological: No history of psychiatric symptoms or problems.Neurologic: No history of TIA's, stroke, DOCK CLERK tumor, impaired sensorium,hemiplegia, paraplegia or quadriplegia. No [...] ) Wt 79.4 kg (175 lb) BMI25.11 kg/i5Itzhlutsnvg Max: @TMAXREFRESH(24)@ALLERGIES:ISIS RGIESNo Known AllergiesLABS:No results found for: BUNNo results found for: CREATNo results found for: PSAGlucose, Urine (mg/dL)Date Value09/12/2017 Negative Bilirubin, Urine (no units)Date Value09/12/2017 Negative Ketones, Urine (no units)Date Value09/12/2017 1+ (A) Specific [place], Ur (no units)Date Value09/12/2017 1.016 Hemoglobin/Blood ,Ur [...] Calculus, kidney (primary encounter diagnosis)N20.1 Calculus of zeobvcW22.9 Right flank painI10 Essential alogqfwdidbwV48.1 Family history of llflfjvugpetlokB46.49 Family history of sotcakvndrxwdudtyypP12.9 Low vitamin D irnnvP12.90 Abnormal urinalysisGLICKMAN UROLOGICAL AND KIDNEY INSTITUTEPRE-OP NOTEDate [...] 2017 : 11:45 AM PAGER/CONTACT #: Dong [facility] 09-12-2017 HOSP Patient Update ([facility]) DARRELL NELSON ([id number]) 1950 MDate Time Provider Uawkridbeg99/12/17 ASHTYN RABAGO (RN) [facility] During your visit today, we recorded the following information about you:Allergies As of Date: 09/12/2017(No Known Allergies)Date Reviewed: 09/12/2017Reviewed by: Az Ann MA - Fully AssessedOrder(s):SURGICAL REQUEST - ELECTIVE [[id number]] Order #: [id number]: 1Prescriptions as of 09/12/2017 Sig: POTASSIUM CITRATE [...] FOR* More...Follow-up and Disposition History RecordedEncounter Number: [id number] Status:Closed by ASHTYN RABAGO on 09/12/17 [facility] Patient:Darrell Nelson LMRN: Height:5' 10 (1.778 m)Weight:175 lb (79.379 kg)Outpatient Medications as of 10/11/17:potassium citrate ER (UROCIT-K) 10 mEq (1,080 mg) TbERtamsulosin ER (FLOMAX) 0.4 mg nm45nqzrnbgv (COZAAR) 25 mg tabletmultivitamin tabletAdmission/Clinic Administered Medications [...] Urine Negative NegativeKetones, Urine Negative 1+ (A)Specific [place], Ur 1.005 - 1.030 1.016Hemoglobin/Blood,Ur Negative 2+ [...] with more than 50% of the total iyaw-dq-lllw time of thevisit devoted to patient counseling/coordination of care.Feliciano Schroeder, MDDirector, Surgical Stone Disease, [facility] InstituteProfessor of Surgery, [facility] HospitalPager [phone]/12/2017Previous VersionHeisabela Ozuna CNP 09/12/2017 7:38 PM SignedUROLOGY SURGICAL HANDPSERVICE DATE: 09/12/2017REFERRING PROVIDER: Cleveland Llanes MD[address] [facility] [id number]: No PcpGENDER:SUBJECTIVECHIEF COMPLAINT: Pre-op examHISTORY OF PRESENT [...] symtoms or problems.No history of angina, CHF, [place], cardiac surgery of stents.Respiratory: Negative for current cough, dyspnea. No hx of pneumonia in the pastsix weeksPositive: PND, sinus drainage from allergiesGastrointestinal: No history of GERD, PUD, abd pain, difficulty swallowing, GIbleed.Renal: +stonesMusculoskeletal: Negative for joint pain or swelling, back pain or muscle pain.Skin: Negative for lesions, rash and itching.Psychological: No history of psychiatric symptoms or problems.Neurologic: No history of TIA's, stroke, DOCK CLERK tumor, impaired sensorium,hemiplegia, paraplegia or quadriplegia. No [...] ) Wt 79.4 kg (175 lb) BMI 25.11kg/c1Kmbwvkkqaxq Max: @TMAXREFRESH(24)@ALLERGIES:ISIS RGIESNo Known AllergiesLABS:No results found for: David results found for: Marc results found for: PSAGlucose, Urine (mg/dL)Date Value09/12/2017 Negative Bilirubin, Urine (no units)Date Value09/12/2017 Negative Ketones, Urine (no units)Date Value09/12/2017 1+ (A) Specific [place], Ur (no units)Date Value09/12/2017 1.016 Hemoglobin/Blood ,Ur [...] Calculus, kidney (primary encounter diagnosis)N20.1 Calculus of gtbecdZ47.9 Right flank painI10 Essential tsjrjicqxagtD47.1 Family history of hffekvkdtjtxejuG46.49 Family history of lvxtclbkuudhfevbgzjL65.9 Low vitamin D srhsqB84.90 Abnormal urinalysisGLICKHINESVILLE UROLOGICAL AND KIDNEY INSTITUTEPRE-OP NOTEDate of Procedure: [...] 2017 : 11:45 AM PAGER/CONTACT #: Dong [facility] PROGRESSon 09-12-2017 PROGRESS HNO ID: [id number] thor: Feliciano NobleService: (none)Author Type: PhysicianType: Progress [...] Urine Negative NegativeKetones, Urine Negative 1+ (A)Specific [place], Ur 1.005 - 1.030 1.016Hemoglobin/Blood,Ur Negative 2+ [...] with more than 50% of the total jxxs-sm-deicjpfg of the visit devoted to patient counseling/coordination of care.Feliciano Schroeder, MDDirector, Surgical Stone Disease, [facility] InstituteProfessor of Surgery, [facility]. [facility] HospitalPager [phone]/12/2017 Normal [facility] PTH, Intacton 09-12-2017 PTH, Intact 26 pg/mL Normal 15-65 [facility] Comment on above: Performed By: #### I CA, CBCDIF, VITD, PTHI, CMP, URIC ####[place] [phone] Type and SCR (30D)on 017 ABO/RH(D) Positive Normal [facility] Comment on above: Performed By: #### T SCR30 ####[place] [phone] Antibody Screen Negative Normal [facility] Comment on above: Performed By: #### T SCR30 ####[place] [phone] Uric Acidon 09-12-2017 Urate 4.9 mg/dL Normal 4.0-8.1 [facility] Comment on above: Performed By: #### I CA, CBCDIF, VITD, PTHI, CMP, URIC ####[place] [phone] Urinalysison 09-12-2017 Bilirubin, Urine Negative Normal Negative [facility] Comment on above: Performed By: #### U A ####[place] [phone] Comments SEE COMMENT Normal [facility] Comment on above: Result Comment: Micr oscopic Examination Performed Performed By: #### U A ####[place] [phone] Erythrocytes (RBC) 10*6/uL Critically abnormal 0-3 [facility] Comment on above: Performed By: #### U A ####[place] [phone] Hemoglobin mass conc (Bld) 2+ Critically abnormal Negative [facility] Comment on above: Performed By: #### U A ####[place] [phone] Leukest 3+ Critically abnormal Negative [facility] Comment on above: Performed By: #### U A ####[place] [phone] pH of blood 7.0 [pH] Normal 4.5-8.0 [facility] Comment on above: Performed By: #### U A ####[place] [address] [address] [place] [phone] Protein, Urine 30 mg/dL Critically abnormal Negative [facility] Comment on above: Performed By: #### U A ####[place] [phone] Specific [place], Ur 1.016 Normal 1.005-1.03 0 [facility] Comment on above: Performed By: #### U A ####[place] [phone] Urine Kelby Comment SEE COMMENT Normal [facility] Comment on above: Result Comment: N/A Performed By: #### U A ####[place] [address] [address] [place] [phone] Urine, clarity Cloudy Critically abnormal Clear [facility] Comment on above: Performed By: #### U A ####[place] [address] [place] [phone] Urine, color Yellow Normal Yellow [facility] Comment on above: Performed By: #### U A ####[place] [address] [address] [place] [phone] Urine, epithelial cells in sediment SEE COMMENT Normal [facility] Comment on above: Result Comment: FewS quamous Epithelial Cells Performed By: #### U A ####[place] [address] [address] [place] [phone] Urine, glucose presence Negative Normal Negative [facility] Comment on above: Performed By: #### U A ####[place] [address] [place], [place] [phone] Urine, ketones presence 1+ Critically abnormal Negative [facility] Comment on above: Performed By: #### U A ####[place] [phone] Urine, nitrite presence Negative Normal Negative [facility] Comment on above: Performed By: #### U A ####[place] [phone] Urine, urobilinogen Normal Normal Normal [facility] Comment on above: Performed By: #### U A ####[place] [phone] WBC (Leukocytes) 10*3/uL Critically abnormal 0-5 [facility] Comment on above: Performed By: #### U A ####[place] [phone] Urine Cultureon 09-12-2017 Urine culture, bacteria Sp. Request/Comment: - Specimen received in preservative Culture Result - No growth (<1,000 CFU/ml) Normal [facility] Comment on above: Performed By: #### U RCUL ####[place] [phone] Vitamin D 25 Hydroxyon 09-12 Vitamin D 25 Hydroxy 38.6 ng/mL Normal 31.0-80.0 [facility] Comment on above: Result Comment: Clas sification of 25 [place] Vitamin D status:Insufficiency/Moderate Deficiency: < or = 30 ng/mLSufficiency/Optimal Levels: 31 to 80 ng/mLToxicity: > 100 ng/mLTest performed by chemiluminescent immunoassay. Performed By: #### I CA, CBCDIF, VITD, PTHI, CMP, URIC ####[address] [phone] SR-CT Abdomen/Pelvis w/o Con trast IMPORTon 09-07-2017 SR-CT Abdomen/Pelvis w/o Contrast IMPORT Images were obtained outside of [facility] [id number] Normal [facility] Vital Signs Date Time Vital Sign Value Performing Clinician Facility 10-16-2024 08:06-0500 Blood Pressure Location Rock Crunch[facility] 10-16-2024 08:06-0500 Diastolic blood pressure 100 mm[Hg] Rock [facility] 10-16-2024 08:06-0500 Heart rate 78 /min Rock [facility] 10-16-2024 08:06-0500 Systolic blood pressure 163 mm[Hg] Rock [facility] 03-20-2024 08:14-0400 Diastolic blood pressure 85 mm[Hg] [facility] [place] 03-20-2024 08:14-0400 Heart rate 66 /min Rock [facility] 03-20-2024 08:14-0400 Systolic blood pressure 146 mm[Hg] [facility] 08-23-2023 08:30-0500 Blood Pressure Location Laura Orzech [facility] 08-23-2023 08:30-0500 Diastolic blood pressure 91 mm[Hg] Laura Orzech [facility] 08-23-2023 08:30-0500 Heart rate 88 /min Laura Orzech [facility] 08-23-2023 08:30-0500 Respiratory rate 16 /min Laura Orzech [facility] 08-23-2023 08:30-0500 Systolic blood pressure 151 mm[Hg] Laura Orzech [facility] 08-07-2023 08:45-0500 Body height 172.72 cm Abigail Sanchez Other [facility] Other 08-07-2023 08:45-0500 Body mass index (BMI) [Ratio] 25.18 kg/m2 Abigail Sanchez Other [facility] Other 08-07-2023 08:45-0500 Body weight 75.12 kg Abigail Sanchez Other [facility] Other 08-07-2023 08:45-0500 Diastolic blood pressure 73 mm[Hg] Abigail Sanchez Other [facility] Other 08-07-2023 08:45-0500 SaO2% (BldA) [Mass fraction] 99 % Abigail Sanchez Other [facility] Other 08-07-2023 08:45-0500 Systolic blood pressure 165 mm[Hg] Abigail Sanchez Other [facility] Other 11-17-2022 09:30-0500 Body height 172.72 cm Abigail Sanchez Other [facility] Other 11-17-2022 09:30-0500 Body mass index (BMI) [Ratio] 27.82 kg/m2 Abigail Sanchez Other [facility] Other 02-16-2023 09:30-0500 Body weight 83.01 kg Abigail Sanchez Other [facility] Other 11-17-2022 09:30-0500 Diastolic blood pressure 82 mm[Hg] Abigail Sanchez Other [facility] Other 11-17-2022 09:30-0500 SaO2% (BldA) [Mass fraction] 97 % Abigail Sanchez Other [facility] Other 11-17-2022 09:30-0500 Systolic blood pressure 140 mm[Hg] Abigail Sanchez Other [facility] Other 07-26-2022 13:18-0400 Blood Pressure Location 1CLICK [facility] [place] 07-26-2022 13:18-0400 Diastolic blood pressure 98 mm[Hg] Dharmesh Campaign MonitorL [facility] [place] 07-26-2022 13:18-0400 Heart rate 72 /min iPaymentL [facility] [place] 07-26-2022 13:18-0400 Respiratory rate 16 /min Dharmesh [facility] MonitorL [facility] [place] 07-26-2022 13:18-0400 Systolic blood pressure 138 mm[Hg] Dharmesh NILL [facility] [place] Encounters Encounter Date Encounter Type Care Provider Facility Start: 11-05-2025 ambulatory Rock LUJAN Facility :[facility] Start: 06-16-2025 ambulatory Rock LUJAN Facility :CD:[id number] Start: 06-06-2025 End: 06-06-2025 ambulatory AGATHA YO [facility] Start: 06-05-2025 End: 06-05-2025 ambulatory OPAL FERNANDEZ [facility] Start: 06-03-2025 End: 06-03-2025 ambulatory Rock LUJAN Facility:[facility] Start: 06-03-2025 End: 06-03-2025 Patient encounter procedure Rock LUJAN [facility] Start: 05-28-2025 Evaluation and management of inpatient SATISHNICHO DE LA ROSA [facility] Start: 05-26-2025 Evaluation and management of inpatient CHRISTINA [facility] Start: 05-26-2025 Evaluation and management of inpatient CHRISTINA [facility] Start: 05-22-2025 Evaluation and management of inpatient EDUARDO Lola [facility] Start: 05-21-2025 Evaluation and management of inpatient SIMON COBIAN [facility] Start: 05-20-2025 Evaluation and management of inpatient EDUARDO [facility] Start: 05-19-2025 Evaluation and management of inpatient EDUARDO L[facility] Start: 05-19-2025 Evaluation and management of inpatient EDUARDO Davila [facility] Start: 05-12-2025 Evaluation and management of inpatient EDUARDO Davila [facility] Start: 05-12-2025 End: 05-29-2025 Evaluation and management of inpatient GIANCARLO BANEGAS [facility] Start: 04-23-2025 End: 04-23-2025 ambulatory Rock LUJAN Facility:EDUARDA Araujo Start: 04-23-2025 End: 04-23-2025 Patient encounter procedure Rokc LUJAN [facility] Start: 02-14-2025 End: 02-14-2025 ambulatory [facility] Start: 01-30-2025 ambulatory [facility] Start: 01-30-2025 End: 01-30-2025 ambulatory ASHER BURNS [facility] Start: 01-13-2025 End: 01-13-2025 ambulatory [facility] Start: 12-20-2024 End: 12-20-2024 ambulatory [facility] Start: 11-08-2024 End: 11-08-2024 ambulatory [facility] Start: 10-16-2024 End: 10-16-2024 ambulatory Rock LUJAN Facility:[facility] Start: 10-16-2024 End: 10-16-2024 Patient encounter procedure Rock LUJAN [facility] Start: 03-20-2024 End: 03-20-2024 Patient encounter procedure Rock LUJAN [facility] Start: 08-23-2023 End: 08-23-2023 Patient encounter procedure Laura Darling [facility] Start: 08-11-2023 End: 08-11-2023 ambulatory Abigail Sanchez Other [facility] Other Start: 08-11-2023 Telephone encounter Abigail Sanchez [facility] Start: 08-07-2023 End: 08-07-2023 ambulatory Abigail Sanchez Other [facility] Other Start: 08-07-2023 Office outpatient vi sit 15 minutes Abigail Sanchez [facility] Start: 02-08-2023 End: 02-09-[address] ROCK LUJAN Facility: Start: 11-17-2022 End: 11-17-2022 ambulatory Abigail Sanchez Other [facility] Other Start: 11-17-2022 Encounter for other preprocedural examination Abigail Sanchez [facility] Start: 02-16-2023 Office outpatient vi sit 15 minutes Abigail Sanchez [facility] Start: 11-03-2022 End: 11-04-[address] DENISHA GARCIA Facility:[facility] Start: 08-31-2022 Encounter for preprocedural laboratory examination DR DHARMESH WALTERS . [facility] Start: 08-31-2022 End: 08-31-[address] DHARMESH WALTERS . Facility:[facility] Start: 08-26-2022 End: 08-27-[address] DHARMESH WALTERS . Facility:[facility] Start: 08-26-2022 End: 08-27-2022 Encounter for preprocedural laboratory examination DR DHARMESH WALTERS . Facility:[facility] Start: 07-26-2022 End: 07-26-2022 Patient encounter procedure Dharmesh WALTERS [facility] Start: 06-30-2022 Adult health examination Gricelda Sanchez Other [facility] Other Start: 06-28-2022 End: 06-29-[address] ABIGAIL SANCHEZ Facility:[facility] Start: 04-27-2022 End: 04-27-2022 Patient encounter procedure Rock LUJAN [facility] Start: 04-20-2022 End: 04-21-[address] ROCK LUJAN Facility:[facility] Start: 10-21-2017 End: 10-22-2017 Ambulatory ALEXA GARCIA [facility] Start: 10-13-2017 End: 10-13-2017 Ambulatory FELICIANO SCHROEDER [facility] Start: 10-11-2017 End: 10-13-2017 Ambulatory FELICIANO SCHROEDER [facility] Start: 09-12-2017 End: 09-12-2017 Ambulatory FELICIANO SCHROEDER [facility] Start: 09-12-2017 End: 09-18-2017 Ambulatory FELICIANO SCHROEDER [facility] Procedures Date Procedure Procedure Detail Performing Clinician Start: 06-06-2025 Follow-up visit Follow-up AGATHA YO Start: 06-05-2025 Follow-up visit JOHN PLASENCIA Start: 02-14-2025 Follow-up visit JOHN PLASENCIA Start: 01-13-2025 Follow-up visit JOHN PLASENCIA Start: 11-08-2024 Follow-up visit JOHN PLASENCIA Start: 08-31-2022 Colonoscopy Laura Darling Start: 08-31-2022 Esophagogastroduodenoscopy Lauar Darling Start: 04-12-2019 Screening for malignant neoplasm of prostate Abigail Sanchez Other Start: 10-11-2017 Removal of calculus of renal pelvis through percutaneous nephrostomy Rock Crunchfish Start: 10-02-2017 Cystoscopic removal of ureteric stent Rock LUJAN Start: 01-13-2016 Cysto, right RGP, right JJ stent Rock LUJAN Start: 09-16-2015 Neck Surgery Rock LUJAN Bilateral hernia repair Martin LUJAN Bilateral inguinal hernia repair Dharmesh WALTERS Cholecystectomy Rock LUJAN Colonoscopy Dharmesh WALTERS History of surgical procedure on cervical spine Dharmesh PETERSL History of surgical procedure on cervical spine Dharmesh WALTERS Sinus Surgery Rock LUJAN Small intestine excision Davin LUJAN Immunizations Immunization Date Immunization Notes Care Provider Fa ciliderek 08-16-2021 COVID-19 Vaccine Pfizer - Documentation Purposes Only Abigail Sanchez Other [facility] 01-07-2021 COVID-19 Vaccine Pfizer - Documentation Purposes Only Abigail Sanchez Other [facility] 12-17-2020 SARS-CoV-2 (COVID-19 ) mRNA BNT-162b2 vax Laura Darling [facility] NEGATED: Highlighted row has not occurred!10-16-2024 influenza virus vaccine, unspecified formulation Rock LUJAN [facility] NEGATED: Highlighted row has not occurred!08-23-2023 influenza virus vaccine, unspecified formulation Laura Darling [facility] Payers Date Payer Category Payer Medicare [id number] 1961 Medicare [id number] 2. [id number] 1950 Unknown [id number] 2.16.84 [id number] 1950 Unknown [id number] 2.16.84 [id number] 1948 Unknown [id number] 2.16.84 [id number] 1948 Unknown [id number] 2.16.84 [id number] 1948 Unknown [id number] 2.16.84 [id number] 1948 Unknown [id number] 2.16.84 [id number] 1948 Unknown [id number] 2.16.8 [id number] 1948 Unknown [id number] 2.16.8 [id number] 1948 Unknown [id number] 2.16.8 [id number] 1948 Unknown [id number] 2.16.8 [id number] Social History Date Type Detail Facility Start: 04-27-2022 End: 10-16-2024 Tobacco smoking status Never smoked tobacco (finding) [facility] Tobacco smoking status Never [facility] Sex Assigned At Male [facility] [employer] Sexual Orientation [facility] [employer] Start: 12-20-2018 Sex Male (finding) [facility] Functional Status Date Assessment Result Facility 10-16-2024 Functional Status N/A [facility] 03-20-2024 Functional Status N/A [facility] 08-23-2023 Functional Status N/A [facility] 07-26-2022 Functional Status N/A [facility] [place] 04-27-2022 Functional Status N/A [facility] [employer] Clinical Notes 04-27-2022 to 06-05-2025 Note Date & Type Note Facility 06-05-2025 Note [facility] 06-05-2025 Note [facility] 06-04-2025 Note OPAT weekly lab orde rs faxed to [facility] 06-03-2025 Hospital Discharge instructions Patient Education 06/03/2025 [...] Follow these instructions at home: Medicines Take keki-ssg-yamvtmc and prescription medicines only as told by [...] provider. Document Revised: 06/09/2021 Document Reviewed: 06/09/2021 [employer] Patient Education 2023 [employer]. Follow Up Care 05/30/2025 11:20:20 With:KARLEE GA, Rock Pollock, URL Address: [address] [place], [place] [id number]- When: Unknown [facility] 06-03-2025 Note Patient Education Urology Acute Urinary [...] these instructions at home: Medicines ??? Take nfdz-jph-maywkns and prescription medicines only as told by [...] provider. Document Revised: 06/09/2021 Document Reviewed: 06/09/2021 Elsevier Patient Education ? 2023 [employer] [facility] 06-03-2025 Note Thanks for letting me know :) [facility] 05-29-2025 Note [facility] 05-29-2025 Note [facility] 05-29-2025 Note [facility] 05-28-2025 Note [facility] 05-28-2025 Note [facility] 05-28-2025 Note [facility] 05-28-2025 Note [facility] 05-28-2025 Note [facility] 05-27-2025 Note [facility] 05-27-2025 Note [facility] 05-27-2025 Note [facility] 05-27-2025 Note [facility] 05-27-2025 Note [facility] 05-26-2025 Note [facility] 05-26-2025 Note [facility] 05-26-2025 Note [facility] 05-26-2025 Note [facility] 05-25-2025 Note [facility] 05-25-2025 Note [facility] 05-24-2025 Note [facility] 05-23-2025 Note [facility] 05-23-2025 Note [facility] 05-23-2025 Note [facility] 05-22-2025 Note Awaiting medical jerome thien dang-cert valid until 05/25 [facility] 05-22-2025 Note [facility] 05-22-2025 Note Updates sent to [facility]. Patient continues to have further work up and has not been medically cleared for discharge. [facility] 05-22-2025 Note [facility] 05-22-2025 Note [facility] 05-22-2025 Note [facility] 05-21-2025 Note SUSIE advised that yasmeen ent is still not medically ready. He has went for a 2nd CT scan to see what might be going on due to abnormal labs. SUSIE advised [facility]. [facility] 05-21-2025 Note [facility] 05-21-2025 Note [facility] 05-21-2025 Note [facility] 05-20-2025 Note [facility] 05-20-2025 Note [facility] 05-20-2025 Note Patient precert rec' d. AVS sent to [facility] [employer]. Packet made. 0130 completed. Patient is letting his family know. RN to call report. No other needs known to this worker. [facility] 05-20-2025 Note [facility] 05-20-2025 Note [facility] 05-20-2025 Note [facility] 05-19-2025 Note [facility] 05-19-2025 Note [facility] 05-19-2025 Note [facility] 05-19-2025 Note [facility] 05-19-2025 Note [facility] 05-19-2025 Note [facility] 05-19-2025 Note [facility] 05-18-2025 Note [facility] 05-18-2025 Note [facility] 05-17-2025 Note [facility] 05-16-2025 Note [facility] 05-16-2025 Note [facility] 05-16-2025 Note [facility] 05-15-2025 Note [facility] 05-15-2025 Note [facility] 05-14-2025 Note [facility] 05-14-2025 Note [facility] 05-13-2025 Note [facility] 05-13-2025 Note [facility] 05-13-2025 Note Respiratory Therapy Note Patient is on 1L of oxygen SPO2 95% Lungs are diminished and clear. No chest X-ray of CT of chest done. No interventions at this time. [facility] 05-13-2025 Note Spoke with senior lucy dasilva resident Marjorie about increasing heart rate lopressor order for hr greater then 120 [facility] 05-13-2025 Note Peripheral IV Date/Time: 05/13/2025 1:24 AM Inserted by: Colin Miller MD Placement Needle size: 18 G Laterality: right Location: hand Site prep: alcohol Technique: anatomical landmarks Attempts: 1 [facility] 05-13-2025 Note Peripheral IV Date/Time: 05/13/2025 1:02 AM Inserted by: Colin Miller MD Placement Needle size: 18 G Laterality: right Location: forearm Site prep: alcohol Technique: anatomical landmarks Attempts: 1 [facility] 05-13-2025 Note [facility] 05-13-2025 Note [facility] 05-12-2025 Note [facility] 04-23-2025 Hospital Discharge instructions Patient Education 04/23/2025 [...] treatment? Where to find more information [employer] [place] [employer]: www.cancer.org [place] [employer]: www.auanet.org Contact a health care [...] provider. Document Revised: 03/14/2022 Document Reviewed: 03/14/2022 [employer] Patient Education 2023 [employer]ity. Follow Up Care 10/16/2024 08:35:29 With:KARLEE GA, Rock Pollock, URL Address: [address] [place] [address] When: Unknown [facility] 04-23-2025 Note Patient Education Oncology Prostate Cancer [...] Where to find more information ??? [employer] [place] [employer]: www.cancer.org ??? [place] [employer]: www.auanet.org Contact a health care [...] The prostate gland (more content not included)... [facility] 02-14-2025 Note [facility] 01-30-2025 Note [facility] 01-30-2025 Note This report has been cancelled. [facility] 01-13-2025 Note [facility] 11-08-2024 Note [facility] 10-16-2024 Hospital Discharge instructions [...] treatment? Where to find more information [employer] [place] [employer]: www.cancer.org [place] [employer]: www.auanet.org Contact a health care [...] provider. Document Revised: 03/14/2022 Document Reviewed: 03/14/2022 [employer] Patient Education 2023 [employer]. Follow Up Care 03/20/2024 09:04:03 With:KARLEE GA, Rock Pollock, URL Address: [facility]. [address] [address]- When: Unknown [facility] 10-16-2024 Note Patient Education Oncology [...] Where to find more information ??? The [place] [employer]: www.cancer.org ??? [place] [employer]: www.auanet.org Contact a health care [...] The prostate gland (more content not included)... [facility] 03-20-2024 Hospital Discharge instructions Patient [...] urethra. Follow these instructions at home: Take cldv-iij-wliclpr and prescription medicines only as told by [...] provider. Document Revised: 04/06/2022 Document Reviewed: 04/06/2022 [employer] Patient Education 2022 [employer]. Follow Up Care 08/23/2023 09:06:17 With:KARLEE GA, Rock Pollock, URL Address: [facility] [employer] [address] [place] [id number]- When: Unknown [facility] 08-23-2023 Hospital Discharge instructions Patient [...] urethra. Follow these instructions at home: Take ifpw-wqo-pevflus and prescription medicines only as told by [...] provider. Document Revised: 04/06/2022 Document Reviewed: 04/06/2022 [employer] Patient Education 2022 [employer] 08/23/2023 11:10:20 Prostate Cancer Screening Prostate Cancer [...] treatment? Where to find more information The [place] [employer]: www.cancer.org [place] [employer]: www.auanet.org Contact a health care [...] provider. Document Revised: 03/14/2022 Document Reviewed: 03/14/2022 [employer] Patient Education 2022 [employer]ity. Follow Up Care 02/15/2023 12:04:24 With:KARLEE GA, Rock Pollock, URL Address: [address] [place] [address] [place] [id number]- When: Unknown [facility] 08-07-2023 Evaluation note Encounter Date [...] Has passed the quarantine dates. Rest, hydrate. [facility] Other 02-16-2023 Evaluation note* Encounter Date Diagnosis [...] juncture. Nov, Essential hypertension (ICD-10 - I10) [facility] Other 11-30-2022 NoteOP Note OPERATION DATE: 08/31/2022 [...] one year after that. CC: Abigail Sanchez M.D.[facility]11-25-2022 NoteOPERATIVE NOTE OPERATION DATE: 08/26/2022 PREOPERATIVE [...] room in good condition. CC: Abigail Sanchez M.D.[facility]11-25-2022 NoteOPERATIVE NOTE OPERATION DATE: 08/26/2022 PREOPERATIVE [...] one year after that. CC: Abigail Sanchez M.D.[facility]07-27-2022 Hospital Discharge instructions Patient Education 04/27/2022 [...] urethra. Follow these instructions at home: Take bthu-ggf-nuyblfw and prescription medicines only as told by [...] 09/18/2006 Document Revised: 08/13/2019 Document Reviewed: 10/23/2017 [employer] Patient Education 2020 [employer]ity. Follow Up Care 10/25/2021 11:53:28 With:Rock LUJAN MD, URL Address: [address] [place], [place] [id number]- When:Within 6 Month(s) [facility] Evaluation + Plan note Future Appointments Appointment Date:10/17/2022 08:00:00 AM Scheduled Provider:Rock LUJAN MD Location:[facility] Appointment Type:URO Office Visit Diagnostic Tests Pending * PSA Free & Total 09/01/22 [facility] Evaluation + Plan note Future Appointments Appointment Date:10/17/2022 08:00:00 AM Scheduled Provider:Rock LUJAN MD Location:[facility] Appointment Type:URO Office Visit General Surgery [place] Evaluation + Plan note Future Appointments Appointment Date:03/20/2024 08:00:00 AM Scheduled Provider:Rock LUJAN MD Location:[facility] Appointment Type:URO Office Visit Diagnostic Tests Pending * PSA Free & Total 08/23/23 [facility] Evaluation + Plan note Future Appointments Appointment Date:10/16/2024 08:00:00 AM Scheduled Provider:Rock LUJAN MD Location:[facility] Appointment Type:URO Office Visit Diagnostic Tests Pending * PSA Free & Total 07/02/24 [facility] Evaluation + Plan note Future Appointments Appointment Date:04/23/2025 08:45:00 AM Scheduled Provider:Rock LUJAN MD Location:[facility] Appointment Type:URO Office Visit Diagnostic Tests Pending * PSA Free & Total 03/02/25 [facility] Evaluation + Plan note Future Appointments Appointment Date:11/05/2025 08:15:00 AM Scheduled Provider:Rock LUJAN MD Location:[facility] Appointment Type:URO Office Visit Diagnostic Tests Pending * PSA Free & Total 09/01/25 [facility] Evaluation + Plan note Future Appointments Appointment Date:11/05/2025 08:15:00 AM Scheduled Provider:Rock LUJAN MD Location:[facility] Appointment Type:URO Office Visit [facility] evaluation noteNo [facility] [employer] Other Hislrhv general Narrative - Reported* Type Description Date Medical History Iron deficiency anemia Medical History Fatigue Medical History Dyspnea on exertion Medical History Essential hypertension Surgical History CHOLECYSTECTOMY Surgical History CERVICAL DISC SURGERY Surgical History 2 INGUINAL HERNIA SURGERY Hospitalization History SEE SURGICAL HX [facility] Other Hisprme general Narrative - Reported* Type Description Date Medical History Iron deficiency anemia Medical History Fatigue Medical History Dyspnea on exertion Medical History Essential hypertension Surgical History CHOLECYSTECTOMY Surgical History CERVICAL DISC SURGERY Surgical History 2 INGUINAL HERNIA SURGERY Surgical History Colonoscopy 2022 Surgical History Bowel resection 11/2022 Hospitalization History SEE SURGICAL HX [facility] Other Hospital course Narrative No data available for this section [facility] Hospital Discharge instructions No data available for this section General Surgery [place] Progress note No data available for this section [facility] Summary Purpose Family History No [...] section and content) DATE CREATED AUTHOR 03/26/2018 [facility] DATE CREATED AUTHOR AUTHOR'S ORGANIZ ATION 03/31/2022 [facility] DATE CREATED AUTHOR AUTHOR'S ORGANIZ ATION 02/12/2023 [facility] DATE CREATED AUTHOR AUTHOR'S ORGANIZ ATION 06/07/2025 [facility] DATE CREATED AUTHOR AUTHOR'S ORGANIZ ATION 06/08/2025 [facility] Care Team (unrecognized sect ion and content) Personnel Name: ABIGAIL SANCHEZ MD Address: [address] [place] [address] Personnel Name: ABIGAIL SANCHEZ MD Address: Address: [address] [place] [address] Personnel Name: ABIGAIL SANCHEZ MD Address: Address: [address] [place] [address] Personnel Name: ABIGAIL SANCHEZ MD Address: Address: [address] [place] [address] Personnel Name: ABIGAIL SANCHEZ MD Address: Address: [address] [place] [address] Personnel Name: ABIGAIL SANCHEZ MD Address: [address] [place] [address] Telecom: Personnel Name: ABIGAIL SANCHEZ MD Address: [address] [place] [address] [employer]com: REASON FOR VISIT (unrecogniz ed section [...] BE BASED ON THE PRIMARY CLINICAL RECORDS. [email or web address] [facility]. provides no warranty or guarantee of the accuracy or completeness of information in this document.
== END 2025-06-09 13:42 | disposition home or self-care (01) ==
LOC: LAB 13:41
PROVIDERS: PCP Family Medicine; Visit Provider Dietitian, Registered
DX: N39.0 Urinary tract infection, site not specified (principal); L02.91 Cutaneous abscess, unspecified
CPT/HCPCS: 36415; 82565; 84520; 85025

== ENCOUNTER 2025-08-27 08:41 | Emergency (ER) | payer MEDICARE, SELFPAY ==
[2025-08-27] VITALS (16 sets, daily range): BP systolic 155–167; BP diastolic 79–92; PULSE 92–114; TEMP 36.8; O2SAT 97–99; BMI 22.7
--- OUTSIDE RECORDS SUMMARY | 2025-08-27 08:47 | XMS_ITS | Clinical Summary ---
Author Organization [facility] Address [address] [place], [place] [address] Care Team Providers Care Accounting Lecturer Name Role Phone Benji Calhoun MD Unavailable [phone] Patricia Fontanez MD Primary Care Provider Allergies No known active allergies Medications MedicationSigDispense QuantityRefillsLast FilledStart DateEnd DateStatus potassium citrate ER (UROCIT-K) 10 mEq (1,080 mg) TbER 10 mEq.Active tamsulosin ER (FLOMAX) 0.4 mg cp24 0.4 mg.Active losartan (COZAAR) 25 mg tablet Take 25 mg by mouth once daily.Active multivitamin tablet Take 1 tablet by mouth once daily.Active docusate sodium (COLACE) 100 mg capsule Take 1 capsule by mouth twice daily. As long as taking opioids/narcotics. Stop taking if loose bowel movements or diarrhea. 40 capsule 10/11/2017Active oxybutynin (DITROPAN) 5 mg tablet Indications:Bladder spasmsTake 1 tablet by mouth three times daily. 30 tablet 10/13/2017Active phenazopyridine (PYRIDIUM, GERIDIUM) 100 mg tablet Indications:Bladder spasmsTake 1 tablet by mouth three times daily as needed. 30 tablet 10/13/2017Active tamsulosin ER (FLOMAX) 0.4 mg cp24 Take 1 capsule by mouth once daily. 30 minutes after the same meal each day. 30 capsule 10/22/2017Active Active Problems ProblemNoted DateDiagnosed JtluUrucmnkxyghf23/20/2018Calculus, rrxlvp5809/12/2017 Calculus of foeflj8109/12/2017Right flank pain09/12/2017Essential hypertension 09/12/2017Low vitamin D level09/12/2017Abnormal tmqeaafhgm80/12/2017Calculus of rebzno9709/12/2017 Overview (09/12/2017): Added automatically from request for surgery [id number] Resolved Problems ProblemNoted DateDiagnosed DateResolved DateFamily history of nephrolithiasis Family history of hlhxajstriqabezdsdp05/12/201701/11/2018 Social History Tobacco UseTypesPacks/DayYears UsedDateSmoking Tobacco: NeverSmokeless Tobacco: NeverAlcohol UseStandard Drinks/WeekCommentsNo0 (1 standard drink = 0.6 oz pure alcohol)Area Deprivation IndexAnswerDate RecordedNational Score (1-100), lower number is lower riskNot on file09/08/2020State Score (1-10), lower number is lower riskNot on file09/08/2020Data from: https://www.neighborhoodatlas.medicine.[facility]/. Last address used for calculationNot on file09/08/2020Sex and Gender InformationValueDate RecordedSex Assigned at BirthNot on fileLegal WczLktr24/11/2017 1:30 PM ESTGender Identity Not on fileSexual OrientationNot on file Last Filed Vital Signs Vital SignReadingTime TakenCommentsBlood Teluawby005/78010/22/2017 5:53 AM EST Hgabv2057 5:53 AM FUVOsrsgwjgaec13.9 ??C (98.5 ??F)10/22/2017 5:53 AM ESTRespiratory Xphd795310/22/2017 5:53 AM ESTOxygen Wijbaspjoa68%10/22/2017 5:53 AM ESTInhaled Oxygen Concentration--Dmhmig58 kg (174 lb 2.6 oz)10/22/2017 8:00 AM DYKOhwmbw247.8 cm (5' 10 )10/22/2017 6:00 AM ESTBody Mass Index24.99 10/22/2017 6:00 AM EST Plan of Treatment Health MaintenanceDue DateLast DoneCommentsAnxiety Csnaothpf00/24/1966Depression Uahikwxsi26/24/1966Hepatitis C Wcmpqfkkn89/24/1966DTaP,Tdap,Td Vaccine (1 - Tdap)1967Pneumococcal Vaccine: 50+ (1 of 1 - PCV)1998Shingrix Vaccine (1 of 2)1998Diabetes Irgfojusf69, 10/21/2017, 10/13/2017, Additional history existsRSV Vaccine (1 - 1-dose 75+ series) 2023dvance Directive Cfxlqefrxn78/01/2025ovid-19 Vaccine (1 - 2024- season)2025Influenza Vaccine (#1)2025 Procedures Procedure NamePriorityDate/TimeAssociated DiagnosisCommentsBASIC METABOLIC PANEL Tqmxned1910/22/2017 4:38 AM EST from Last 3 Months or Most Recently Relevant to Health Maintenance Results * (ABNORMAL) BASIC METABOLIC PNL (10/22/2017 4:38 AM EST)ComponentValueRef Range Test MethodAnalysis TimePerformed AtPathologist UsacedseoMcppdig4419 - 99 mg/dL10/22/2017 7:10 AM [facility] LABORATORYComment: The [place] Diabetes Association (ADA) provides guidance for cutoff [...] Standards of Medical Care in Diabetes 2016, [place] Diabetes Association. Diabetes Care. 2016.39(Suppl 1). BUN5(L)9 - 24 mg/dL10/22/2017 7:10 AM [facility] Creatinine0.980.73 - 1.22 mg/dL10/22/2017 7:10 AM [facility] MAIN ICWWYSPUHVBsgaqd862571 - 144 mmol/L10/22/2017 7:10 AM [facility] LABORATORYPotassium3.5(L)3.7 - 5.1 mmol/L10/22/2017 7:10 AM [facility] UPBAAWXVZIAcszyuzg52261 - 105 mmol/L10/22/2017 7:10 AM [facility] NQOVFLKBJBOM54496 - 30 mmol/L10/22/2017 7:10 AM [facility] LABORATORYAnion Xhd147 - 18 mmol/L10/22/2017 7:10 AM [facility] LABORATORYCalcium8.2(L)8.5 - 10.2 mg/dL10/22/2017 7:10 AM [facility] LABORATORYeGFR->6001 7:10 AM [facility] LABORATORYeGFR-All Other Races>60.10/22/2017 7:10 AM [facility] LABORATORYComment: eGFR (Estimated GFR) Units of measure: mL/min/1.73 [...] eGFR may not accurately reflect actual GFR. Specimen (Source)Anatomical Location / LateralityCollection Method / Volume Collection TimeReceived TimeBlood specimen (specimen)BLOOD SPECIMEN / Unknown 10/22/2017 4:38 AM EST10/22/2017 4:39 AM EST Narrative Authorizing ProviderResult TypeResult StatusKip Hagan MDLABORATORYFinal ResultPerforming OrganizationAddressCity/State/ZIP CodePhone Number [facility] [address] [place] [address] from Last 3 Months or Most Recently Relevant to Health Maintenance Insurance Care Teams Team MemberRelationshipSpecialtyStart DateEnd Date Patricia Fontanez MD [address] [place] [phone] PCP - GeneralFamily Medicine10/05/17 Benji Calhoun MD [address] [facility] [place] [address] WardiyrssJzmmskm56/11/17
--- OUTSIDE RECORDS SUMMARY | 2025-08-27 08:47 | XMS_ITS | Clinical Summary ---
Author Organization [facility] Address [address] [place] [address] Care Team Providers Care Circular Distributor Name Role Phone Unavailable Primary Care Provider Unavailabl e Social History Tobacco UseTypesPacks/DayYears UsedDateSmoking Tobacco: Never AssessedSex and Gender InformationValueDate RecordedSex Assigned at BirthNot on fileLegal Sex Male12/14/2022 6:36 PM EDTGender IdentityNot on fileSexual OrientationNot on file Plan of Treatment Not on file
--- OUTSIDE RECORDS SUMMARY | 2025-08-27 08:47 | XMS_ITS | Clinical Summary ---
Author Organization [employer] [facility] tem Address [id number] [address] [place] [address] Care Team Providers Care Emergency Department Director Name Role Phone Patricia Fontanez MD Primary Care Provider [phone] Allergies No known active allergies Medications MedicationSigDispense QuantityRefillsLast FilledStart DateEnd DateStatus tamsulosin (FLOMAX) 0.4 mg capsule Take 1 capsule (0.4 mg total) by mouth in the morning and 1 capsule (0.4 mg total) before bedtime.09/28/2022ctive losartan (COZAAR) 25 mg tablet Take 1 tablet (25 mg total) by mouth in the morning.09/28/2022ctive MULTIVITAMIN ORAL Take by mouth daily.Active acetaminophen (TYLENOL EXTRA STRENGTH) 500 mg tablet Take 2 tablets (1,000 mg total) by mouth every 6 (six) hours. 30 tablet 12/09/2022ctive psyllium husk (METAMUCIL ORAL) Take by mouth.Active Active Problems ProblemNoted DateDiagnosed TwimRinbddcrm22/18/2023iverticulitis of colon 01/17/20239425Eiocndmgczph36/18/2023Kidney stone01/17/2023Rash01/17/2023Visual aacwnwnmtq56/18/2023Tubulovillous adenoma of colon12/07/2022 Immunizations No known immunizations Family History Medical HistoryRelationNameCommentsNo Known ProblemsBrother 2BillCrohn's disease Brother 3JerryNo Known ProblemsFatherCancerMotherBowel dysfunctionSisterRelation NameStatusCommentsBrother 1KeithDeceasedBrother 2BillAliveBrother 3JerryAlive FatherDeceasedMotherDeceasedSisterAlive Social History Tobacco UseTypesPacks/DayYears UsedDateSmoking Tobacco: NeverSmokeless Tobacco: Never Tobacco Cessation:Counseling Given: Not Answered Alcohol UseStandard Drinks/WeekCommentsYes4 (1 standard drink = 0.6 oz pure alcohol)Housing InstabilityAnswerDate RecordedAre you worried or concerned that in the next two months you may not have stable housing that you own, rent or stay in as a part of a household?No3ChildcareAnswerDate Recorded NjzyolpifYhcrwgt79/12/2019EmploymentAnswerDate RecordedEmploymentUnknown 03/13/2019Hunger ScreeningAnswerDate RecordedWithin the past 12 months we worried whether our food would run out before we got money to buy more.Never True12/20/2022Within the past 12 months the food we bought just didn't last and we didn't have money to get more.Never True12/20/2022Sex and Gender Information ValueDate RecordedSex Assigned at BirthNot on fileLegal UfyVclg1305/07/2015 12:01 PM EDTGender IdentityNot on fileSexual OrientationNot on file Last Filed Vital Signs Vital SignReadingTime TakenCommentsBlood Esxrwdjx401/8804 8:50 AM EDT Jucvx577512/20/2022 10:41 AM MQZJooelnefuqq91.7 ??C (98 ??F)12/09/2022 8:28 AM EST Respiratory Hrlj962512/09/2022 8:28 AM ESTOxygen Vqqqeydalc95%12/09/2022 8:28 AM ESTInhaled Oxygen Concentration--Nisuzu56.7 kg (169 lb)01/17/2023 8:50 AM EDT Zhflit005.3 cm (5' 9 )01/17/2023 8:50 AM EDTBody Mass Index24.9601/17/2023 8:50 AM EDT Plan of Treatment Health MaintenanceDue DateLast DoneCommentsDepression Tgngkisxd30/24/1960Tobacco Cyxedoojy48/24/1960DTaP,Tdap and Td Vaccines (1 - Tdap)1967Zoster (Shingles) Vaccine (1 of 2)1998Fall Risk Hmlupnuov05/24/2013RSV ( or age 60+ yrs) (1 - 1-dose 75+ series)2023OVID-19 Vaccine (2024- season)5110/16/2020, 01/07/2021, 12/17/2020Influenza Jhmprzl8506/02/2025 Goals GoalPatient Goal TypeAssociated ProblemsRecent ProgressPatient-Stated?Author home Brigette Summers LSW Note: Evaluation of progress towards goal: transitioned to soft foods this a.m., rios removed; pt said he would like to walk in the [place] [employer] Not on file Insurance Advance Directives * Full Code (Latest Code Status on File) Date ActivatedDate InactivatedComments12/07/2022 1:52 PM12/09/2022 4:20 PM Care Teams Team MemberRelationshipSpecialtyStart DateEnd Date Patricia Fontanez MD [facility] [place] [address] PCP - GeneralFamily Medicine11/08/22
--- OUTSIDE RECORDS SUMMARY | 2025-08-27 08:47 | XMS_ITS | Clinical Summary ---
Author Organization [facility] Address [address] [place] [address] Care Team Providers Care Home Care Scheduler Name Role Phone Patricia Fontanez MD Primary Care Provider [phone] Allergies No known active allergies Medications MedicationSigDispense QuantityRefillsLast FilledStart DateEnd DateStatus losartan (Cozaar) 25 mg tablet Take 25 mg by mouth in the morning. Patient taking 2 25mg tablets until he finish what he has on hand.09/28/2022ctive multivitamin tablet Take 1 tablet by mouth in the morning.Active tamsulosin (Flomax) 0.4 mg 24 hr capsule Take 0.4 mg by mouth 2 times daily.06/20/2017Active losartan (Cozaar) 50 mg tablet Indications:Benign hypertensive heart disease without congestive heart failure Take 1 tablet (50 mg) by mouth once daily as directed. 90 tablet /ctive TURMERIC ORAL Take by mouth.Active psyllium (Metamucil) 0.4 gram capsule Take 5 capsules by mouth if needed.Active ferrous fumarate-vitamin C (Marleen-Sequeles 65-25) Take 1 tablet by mouth in the morning. Do not crush, chew, or split.Active Active Problems ProblemNoted DateDiagnosed DateAcute deep vein thrombosis (DVT) of left peroneal vein06/08/2025SBO (small bowel obstruction)05/12/2025enign prostatic tqrhcphqxsy55/07/2025PH with urinary qdyznqptrdd88/07/2025Degenerative disc disease, vewpoxam55/07/2025Elevated PSA11/08/20247657Mlxwwmlqelwg73/07/2025Gross regyytlyk54/07/2025History of colonic xldukv5511/08/2024History of renal calculi 11/08/2024Iron deficiency mhcsdo3011/08/20240115Kizdhfxg31/07/2025Seasonal allergic edjgswbv09/07/2025Sigmoid elfwpsekinztmx29/07/2025Urinary fnkvqxykb80/07/2025UTI (urinary tract infection)11/08/2024Very low density aocbhdohnnqbyk91/07/2025Weak 11/08/2024Nonrheumatic mitral valve jopdbxyotsefs41/07/2025Pure mqjuaujgudcxccdxgjjw56/07/2025Pulmonary clsdfacsdkcw26/07/2025rthritis 01/17/2023iverticulitis of colon01/17/2023Rash01/17/2023Visual impairment 01/17/2023Tubulovillous adenoma of colon12/07/20223001Zatuatonqsuuso99/18/2023 Overview (10/19/2022): Added automatically from request for surgery [id number] Gdimbriktdll28/20/2018Abnormal yvvhgvkwls12/12/2017Calculus of xfmtyr7109/12/2017 Overview (11/08/2024): Added automatically from request for surgery [id number] Calculus of kpizov3309/12/2017Essential ykgkmmjnlqcb53/12/2017Low vitamin D level 09/12/2017Right flank pain09/12/2017 Resolved Problems ProblemNoted DateDiagnosed DateResolved DateBMI 27.0-27.9,adult11/08/2024 02/14/2025 Encounters DateTypeDepartmentCare QmczJxvxkydedss75/25/2025 1:00 PM EDTOffice Visit [facility] [address] [place] [phone] 06/16/2025Telephone [facility] Infectious Disease [address] [place] [phone] Mily Beauchamp, PAN 06/12/2025 7:45 AM EDT - 06/12/2025 11:59 [address] [facility] [address] [place] [phone] Abscess Discharge Disposition: Home or Self Care (01)06/06/2025 3:30 PM EDTFollow-Up [facility] [address] [place] [phone] Lolly Medina NP Acute deep vein thrombosis (DVT) of left peroneal vein (CMS/HCC) (Primary Dx) 06/06/2025Telephone [facility] [address] [place] [address] Young Dominguez MA 06/05/2025 3:40 PM EDTFollow-Up [facility] Infectious Disease [address] [place] [phone] Eleno Obregon CNP Postprocedural intraabdominal abscess (CMS/HCC) (Primary Dx); Abdominal wall cellulitis; Abdominal wall seroma, sequela; Jacki albicans infection; Serratia marcescens infection; Encounter for removal of peripherally inserted central catheter (PICC)06/05/2025 2:15 PM EDTOffice Visit [facility] [address] [place] [address] Kg Gallagher MD 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 (Primary Dx) 06/05/2025Orders Only [facility] Infectious Disease [address] [place] [address] Dara Hernandez MD 06/04/2025Orders Only [facility] Infectious Disease [address] [place] [phone] Mily Beauchamp, PAN Abscess (Primary Dx)06/04/2025Telephone [facility] Infectious Disease [address] [place] [phone] Mily Beauchamp RN 06/03/2025Results Follow-Up [facility] Infectious Disease [address] [place] [phone] Eleno Obregon CNP Body fluid culture, CT abdomen pelvis w IV zmoequnm34/29/2025Orders Only [facility] Infectious Disease [address] [place] [phone] Concepcion Alvarez CNP Abscess (Primary Dx)05/12/2025 5:29 PM EDT - 05/29/2025 6:04 PM EDTHospital Encounter [facility] [address] [place] [phone] Catina Garcia MD Oweis, Thomas D, MD Hematoma (Primary Dx); SBO (small bowel obstruction) (CMS/HCC); Intra-abdominal abscess (CMS/HCC); Abscess; Pulmonary hypertension (CMS/HCC); Pure hypercholesterolemia; Nonrheumatic mitral valve regurgitation; Weak; Visual impairment; Very low density lipoprotinemia; Urinary retention; Tubulovillous adenoma of colon; Sigmoid diverticulosis; Right flank pain; Rash; Nocturia; Low vitamin D level; Leukocytosis, unspecified type; Iron deficiency anemia due to chronic blood loss; History of renal calculi; History of colonic polyps; Gross hematuria; Essential hypertension; Epididymitis; Elevated PSA; Diverticulitis of colon; Degenerative disc disease, cervical; Calculus of ureter; Calculus of kidney; BPH with urinary obstruction; Benign prostatic hyperplasia, unspecified whether lower urinary tract symptoms present; Arthritis; Abnormal urinalysis; Diverticulitis Discharge Disposition: [facility] [place] [facility] [place]from Last 3 Months Family History Medical HistoryRelationNameCommentsAccidental deathBrotherCancerMotherBeatrice BoydDiverticulitisMotherBeatrice BoydRelationNameStatusCommentsBrotherDeceased FatherDeceasedMotherBeatrice BoydDeceasedSisterAlive Social History Tobacco UseTypesPacks/DayYears UsedDateSmoking Tobacco: NeverSmokeless Tobacco: Never Tobacco Cessation:Counseling Given: Not Answered Alcohol UseStandard Drinks/WeekCommentsYes3 (1 standard drink = 0.6 oz pure alcohol)occasionalAHC UtilitiesAnswerDate RecordedIn the past 12 months has the electric, gas, oil, or water [employer] threatened to shut off services in your home?No05/12/2025Humiliation, Afraid, Rape, and Kick questionnaireAnswerDate RecordedWithin the last year, have you been afraid of your partner or ex-partner?Patient unable to nesiqg1506/05/2025Within the last year, have you been humiliated or emotionally abused in other ways by your partner or ex-partner?No 06/05/2025Within the last year, have you been kicked, hit, slapped, or otherwise physically hurt by your partner or ex-partner?No06/05/2025Within the last year, have you been raped or forced to have any kind of sexual activity by your part ner or ex-partner?No06/05/2025Social Connection and Isolation PanelAnswerDate RecordedIn a typical week, how many times do you talk on the phone with family, friends, or neighbors?More than three times a week05/12/2025How often do you get together with friends or relatives?More than three times a week05/12/2025How often do you attend amish or yazdanism services?Never05/12/2025Do you belong to any clubs or organizations such as amish groups, unions, fraternal or athletic groups, or school groups?No05/12/2025How often do you attend meetings of the clubs or organizations you belong to?Never05/12/2025re you , , , , never , or living with a partner?Tzbaovq2005/12/2025 AUDIT-CAnswerDate RecordedQ1: How often do you have a drink containing alcohol?4 or more times a week05/12/2025Q2: How many drinks containing alcohol do you have on a typical day when you are drinking?1 or Q3: How often do you have six or more drinks on one occasion?Never05/12/2025Overall Financial Resource Strain (CARDIA)AnswerDate RecordedHow hard is it for you to pay for the very basics like food, housing, medical care, and heating?Not very hard05/12/2025 PHQ-2AnswerDate RecordedPatient Health Questionnaire-2 Xbdwo927[facility] [place] [facility] - Occupational Stress QuestionnaireAnswerDate RecordedDo you feel stress - tense, restless, nervous, or anxious, or unable to sleep at night because yourmind is troubled all the time - these days?Not at all 05/12/2025UT Safety & EnvironmentAnswerDate RecordedFear of Current or Ex-PartnerNot on file11/23/2023Emotionally AbusedNot on file11/23/2023hysically AbusedNot on file11/23/2023Sexually AbusedNot on file11/23/2023hysically or Sexually AbusedNot on file11/23/2023TransportationAnswerDate RecordedIn the past 12 months, has lack of transportation kept you from medical appointments or from getting medications?No05/12/2025In the past 12 months, has lack of transportation kept you from meetings, work, or from getting things needed for daily living?No05/12/2025Housing Stability Vital SignAnswerDate RecordedIn the last 12 months, was there a time when you were not able to pay the mortgage or rent on time?No05/12/2025In the past 12 months, how many times have you moved where you were living?t any time in the past 12 months, were you homeless or living in a custodial (including now)?No05/12/2025Hunger Vital Sign AnswerDate RecordedWithin the past 12 months, you worried that your food would run out before you got the money to buymore.Never true05/12/2025Within the past 12 months, the food you bought just didn't last and you didn't have money to get more.Never true05/12/2025Sex and Gender InformationValueDate RecordedSex Assigned at YsdaiCmix43/11/2025 5:38 PM EDTLegal SzbYqxp62/21/2022 11:55 AM EST Gender ZkwmvdrvYylp27/11/2025 5:38 PM EDTSexual OrientationHeterosexual or Xbqucghl98/11/2025 5:38 PM EDT Last Filed Vital Signs Vital SignReadingTime TakenCommentsBlood Kvdrgfmc513/7209 1:00 PM EDT Ocwbh8338 1:00 PM RELBmwidkzkjfs57.9 ??C (98.5 ??F)06/26/2025 1:00 PM EDTRespiratory Ldwf829206/26/2025 1:00 PM EDTOxygen Jiodbgxpcg456%06/26/2025 1:00 PM EDTInhaled Oxygen Concentration--Leiwac27.3 kg (155 lb)06/26/2025 1:00 PM EDT Ajjzvo297.8 cm (5' 10 )06/26/2025 1:00 PM EDTBody Mass Index22.24006/26/2025 1:00 PM EDT Plan of Treatment Health MaintenanceDue DateLast DoneCommentsMedicare Annual Wellness (AWV) 1950Pneumococcal Vaccine: 50+ Years (1 of 2 - PCV)1967Adult Tetanus 1970Zoster Vaccines (1 of 2)1998COVID-19 Vaccine ( - season)5110/16/2020, 01/07/2021, 12/17/2020Influenza Vaccine (#1) 2025Depression Sjcxdegdw70Fall Risk Goqswmjmt46/25/2026 06/26/20253219MluwczdctomQhyspfhzknqt98/30/3150LafyfoxbrygtxKcclrtwgwfsr76/27/2023 Colorectal Cancer TcavaciyyLflucrgfnfyaMVMXIvwfhflbpovj51/15/2025CT Colonography DiscontinuedFIT-DNADiscontinuedFITDiscontinuedHIB VaccinesAged OutNo longer eligible based on patient's age to complete this topicHPV VaccinesAged OutNo longer eligible based on patient's age to complete this topicIPV VaccinesAged OutNo longer eligible based on patient's age to complete this topicMeningococcal B VaccineAged OutNo longer eligible based on patient's age to complete this topicMeningococcal VaccineAged OutNo longer eligible based on patient's age to complete this topicRotavirus VaccinesAged OutNo longer eligible based on patient's age to complete this topic Procedures Procedure NamePriorityDate/TimeAssociated DiagnosisCommentsCT ABDOMEN PELVIS W IV OCLLXZJQBfcuepd77/11/2025 8:02 AM EDT Abscess AGXCxuwxlw76/03/2025 7:52 AM EDTCREATININE, CBCOZBuqevqg71/03/2025 7:52 AM EDT CBC AND GISKJDVZLQTDEehevtn66/03/2025 7:51 AM EDTMANUAL DIFFERENTIALPending Ljgflszvi76/28/2025 6:10 AM EDT CBC WITH AUTO DIFFERENTIALPending Wxyieqpng32/28/2025 6:10 AM EDT PHOSPHORUSPending Gitosioct05/28/2025 6:10 AM EDT MAGNESIUMPending Ltdgvhsdu00/28/2025 6:10 AM EDT CBC AND QACHHLIGQGEZDmbwxlc89/28/2025 6:10 AM EDT BASIC METABOLIC PANELPending Zjhionnjm70/28/2025 6:[address] GUIDED ABSCESS FLUID COLLECTION GJXHXWWCFciiwnj10/27/2025 2:28 PM EDT BODY FLUID XPRSOHNTidrikr73/27/2025 2:18 PM EDT SBO (small bowel obstruction) (CMS/HCC) Intra-abdominal abscess (CMS/HCC) Abscess TEST MANUAL XWLHHGPJHPEEQquoacd79/27/2025 5:07 AM EDT CBC WITH AUTO DIFFERENTIALPending Uvweirxwc78/27/2025 5:07 AM EDT PHOSPHORUSPending Udjjkmovu63/27/2025 5:07 AM EDT MAGNESIUMPending Qangfpqmp89/27/2025 5:07 AM EDT CBC AND QFCCRXEVSECAOhsyhzy37/27/2025 5:07 AM EDT BASIC METABOLIC PANELPending Mihewdghm88/27/2025 5:07 AM EDT MANUAL DIFFERENTIALPending Vskslnsen74/26/2025 5:02 AM EDT CBC WITH AUTO DIFFERENTIALPending Ldyrkrnta83/26/2025 5:02 AM EDT PHOSPHORUSPending Pwtclgqfo01/26/2025 5:02 AM EDT MAGNESIUMPending Idhwkyhly29/26/2025 5:02 AM EDT CBC AND XBNTRSGDKFTVIencxtz15/26/2025 5:02 AM EDT BASIC METABOLIC PANELPending Wtfqhkctv74/26/2025 5:02 AM EDT OCCULT BLOOD X 1, STOOLPending Tjkmpxdok56/15/2025 6:44 AM EDT from Last 3 Months or Most Recently Relevant to Health Maintenance Results * CT abdomen pelvis w IV contrast (06/12/2025 8:02 AM EDT)Anatomical Region LateralityModalityBody, Pelvis, AbdomenComputed TomographySpecimen (Source) Anatomical Location / LateralityCollection Method / VolumeCollection Time Received Time06/13/2025 9:37 AM EDT Impressions 06/13/2025 9:48 AM EDT * Postsurgical changes of partial colectomy and bowel resection. The previously seen central mesenteric fluid collection has significantly decreased in size now measures 3.2 cm and contains predominantly air. No new organized fluid collection or hematoma. No free intraperitoneal fluid or air. Electronically signed: Balbina Rosario. Narrative 06/13/2025 9:[address] ABDOMEN PELVIS W IV CONTRAST: 06/12/2025 7:48 AM CLINICAL INFORMATION: Intra-abdominal abscess Intra-abdominal abscess/hematoma Intra-abdominal abscess/hematoma TECHNIQUE: CT Abdomen and Pelvis with intravenous contrast. ??Coronal and sagittal reformatted images were also obtained. All CT scans at this facility use dose modulation, iterative reconstruction, and/or weight based dosing when appropriate to reduce radiation dose to as low as reasonably achievable. COMPARISON: No relevant prior studies available. FINDINGS: LIVER: Normal liver morphology. Stable simple appearing right liver cysts. ??The gallbladder is removed. ??No biliary ductal dilatation. ??Portal and hepatic veins are patent SPLEEN: Spleen is not enlarged PANCREAS: No significant abnormality of the pancreas. ADRENAL GLANDS: No significant abnormality of the adrenal glands. KIDNEYS: Symmetric enhancement of the kidneys without hydronephrosis. Similar findings of right cortical scarring and a simple appearing right renal cyst. No renal or ureteral calculi. ??The bladder is unremarkable. BOWEL/MESENTERY: Postsurgical changes of partial colectomy. The previously seen complex fluid collection in the central mesentery adjacent to bowel anastomosis has significantly decreased in size now containing predominantly air and measures 3.2 cm. No small or large bowel obstruction. ??The appendix is nondilated. ??No free intraperitoneal fluid or air. Similar small loculation of fluid within the left inguinal canal. LYMPH NODES: No lymphadenopathy PROSTATE: The prostate is not enlarged VASCULATURE: Normal caliber of the abdominal aorta. BONES/OTHER: No suspicious osseous abnormality. Strandy bibasilar atelectasis and/or scarring. Procedure Note Balbina Rosario MD - 06/13/2025 CT ABDOMEN PELVIS W IV CONTRAST: 06/12/2025 7:48 AM CLINICAL INFORMATION: Intra-abdominal abscess Intra-abdominal abscess/hematoma Intra-abdominal abscess/hematoma TECHNIQUE: CT Abdomen and Pelvis with intravenous contrast. Coronal and sagittal reformatted images were also obtained. All CT scans at this facility use dose modulation, iterativereconstruction, and/or weight based dosing when appropriate to reduce radiation dose to aslow as reasonably achievable. COMPARISON: No relevant prior studies available. FINDINGS: LIVER: Normal liver morphology. Stable simple appearing right liver cysts.The gallbladder is removed. No biliary ductal dilatation. Portal and hepaticveins are patent SPLEEN: Spleen is not enlarged PANCREAS: No significant abnormality of the pancreas. ADRENAL GLANDS: No significant abnormality of the adrenal glands. KIDNEYS: Symmetric enhancement of the kidneys without hydronephrosis.Similar findings of right cortical scarring and a simple appearing right renalcyst. No renal or ureteral calculi. The bladder is unremarkable. BOWEL/MESENTERY: Postsurgical changes of partial colectomy. The previouslyseen complex fluid collection in the central mesentery adjacent to bowelanastomosis has significantly decreased in size now containing predominantly air and measures 3.2 cm. No small or large bowel obstruction. The appendix is nondilated. No free intraperitoneal fluid or air. Similar smallloculation of fluid within the left inguinal canal. LYMPH NODES: No lymphadenopathy PROSTATE: The prostate is not enlarged VASCULATURE: Normal caliber of the abdominal aorta. BONES/OTHER: No suspicious osseous abnormality. Strandy bibasilaratelectasis and/or scarring. IMPRESSION: *Postsurgical changes of partial colectomy and bowel resection. The previously seen central mesenteric fluid collection has significantlydecreased in size now measures 3.2 cm and contains predominantly air. No neworganized fluid collection or hematoma. No free intraperitoneal fluid or air. Electronically signed: Balbina Rosario. Authorizing ProviderResult TypeResult StatusNicole Amadio [facility] CT PROCEDURES Final Result * Creatinine, Serum (06/04/2025 7:52 AM EDT)Specimen (Source)Anatomical Location / LateralityCollection Method / VolumeCollection TimeReceived TimeBloodVenous blood specimen / Unknown Narrative Authorizing ProviderResult TypeResult StatusHistorical Provider MDLAB BLOOD ORDERABLESFinal Result * BUN (06/04/2025 7:52 AM EDT)Specimen (Source)Anatomical Location / Laterality Collection Method / VolumeCollection TimeReceived TimeBloodVenous blood specimen / Unknown Narrative Authorizing ProviderResult TypeResult StatusHistorical Provider MDLAB BLOOD ORDERABLESFinal Result * CBC and differential (06/04/2025 7:51 AM EDT)Specimen (Source)Anatomical Location / LateralityCollection Method / VolumeCollection TimeReceived Time BloodVenous blood specimen / Unknown Narrative Authorizing ProviderResult TypeResult StatusHistorical Provider MDLAB BLOOD ORDERABLESFinal Result * (ABNORMAL) CBC auto differential (05/29/2025 6:10 AM EDT) Only the most recent of3 resultswithin the time period is included. ComponentValueRef RangeTest MethodAnalysis TimePerformed AtPathologist Signature Auto WBC13.28(H)4.00 - 10.60 10*3/uL05/29/2025 7:42 AM [facility] ([facility])RBC2.96(L)4.20 - 5.70 10*6/uL05/29/2025 7:42 AM [facility] ([facility])Hemoglobin9.3(L)13.0 - 17.0 g/dL05/29/2025 7:42 AM [facility] ([facility])Ozrsbqgcny92.4(L)39.0 - 50.0 %05/29/2025 7:42 AM [facility] ([facility])MCV92.682.0 - 98.0 fL05/29/2025 7:42 AM [facility] ([facility])MCH 31.427.0 - 33.0 pg05/29/2025 7:42 AM [facility] ([facility])MCHC33.932.0 - 35.0 g/dL05/29/2025 7:42 AM [facility] ([facility])RDW15.2(H)11.5 - 15.0 % 05/29/2025 7:42 AM [facility] ([facility])Bsoafsrid258907 - 400 10*3/uL 05/29/2025 7:42 AM [facility] ([facility])nRBC %0.00 %05/29/2025 7:42 AM [facility] ([facility])Specimen (Source)Anatomical Location / Laterality Collection Method / VolumeCollection TimeReceived TimeBloodVenous blood specimen / UnknownArterial Line / Bchzdjp4205/29/2025 6:10 AM EDT05/29/2025 7:09 AM EDT Narrative Authorizing ProviderResult TypeResult StatusThhakan Murphy MDLAB BLOOD ORDERABLESFinal ResultPerforming OrganizationAddressCity/State/ZIP CodePhone Number [facility] ([facility]) [address] [place] [address] * (ABNORMAL) Manual Differential (05/29/2025 6:10 AM EDT) Only the most recent of2 resultswithin the time period is included. ComponentValueRef RangeTest MethodAnalysis TimePerformed AtPathologist Signature Immature Granulocytes %1.1(H)0.0 - 1.0 %05/29/2025 7:46 AM [facility] ([facility])Neutrophils Absolute8.8(H)1.6 - 7.6 10*3/uL05/29/2025 7:46 AM [facility] ([facility])Lymphocytes Absolute2.401.20 - 4.00 10*3/uL05/29/2025 7:46 AM [facility] ([facility])Monocytes Absolute1.59(H)0.10 - 1.00 10*3/uL 05/29/2025 7:46 AM [facility] ([facility])Eosinophils Absolute0.280.00 - 0.50 10*3/uL05/29/2025 7:46 AM [facility] ([facility])Basophils Absolute 0.070.00 - 0.20 10*3/uL05/29/2025 7:46 AM [facility] ([facility]) Neutrophils %66.240.0 - 72.0 %05/29/2025 7:46 AM [facility] ([facility]) Lymphocytes %18.1(L)20.0 - 45.0 %05/29/2025 7:46 AM [facility] ([facility])Monocytes %12.05.0 - 12.0 %05/29/2025 7:46 AM [facility] ([facility])Eosinophils %2.10.0 - 6.0 %05/29/2025 7:46 AM [facility] ([facility])Basophils %0.50.0 - 1.0 %05/29/2025 7:46 AM [facility] ([facility])Immature Granulocytes Absolute0.150.00 - 0.20 10*3/uL05/29/2025 7:46 AM [facility] ([facility])Specimen (Source)Anatomical Location / Laterality Collection Method / VolumeCollection TimeReceived TimeBloodVenous blood specimen / UnknownArterial Line / Tssjqag4405/29/2025 6:10 AM EDT05/29/2025 7:09 AM EDT Narrative Authorizing ProviderResult TypeResult StatusThhakan Murphy MDLAB BLOOD ORDERABLESFinal ResultPerforming OrganizationAddressCity/State/ZIP CodePhone Number [facility] ([facility]) [address] [place] [address] * Phosphorus (05/29/2025 6:10 AM EDT) Only the most recent of3 resultswithin the time period is included. ComponentValueRef RangeTest MethodAnalysis TimePerformed AtPathologist Signature Phosphorus3.02.5 - 5.0 mg/dL05/29/2025 7:36 AM [facility] ([facility]) Specimen (Source)Anatomical Location / LateralityCollection Method / Volume Collection TimeReceived TimeBloodVenous blood specimen / UnknownArterial Line / Swyfbfa7905/29/2025 6:10 AM EDT05/29/2025 7:06 AM EDT Narrative Authorizing ProviderResult TypeResult StatusThomas D Katherine NHLAB BLOOD ORDERABLESFinal ResultPerforming OrganizationAddressCity/State/ZIP CodePhone Number [facility] ([facility]) [address] [place] [address] * Magnesium (05/29/2025 6:10 AM EDT) Only the most recent of3 resultswithin the time period is included. ComponentValueRef RangeTest MethodAnalysis TimePerformed AtPathologist Signature Magnesium2.01.9 - 2.7 mg/dL05/29/2025 7:36 AM [facility] ([facility]) Specimen (Source)Anatomical Location / LateralityCollection Method / Volume Collection TimeReceived TimeBloodVenous blood specimen / UnknownArterial Line / Jquijch3905/29/2025 6:10 AM EDT05/29/2025 7:06 AM EDT Narrative Authorizing ProviderResult TypeResult StatusThomas D Katherine NHLAB BLOOD ORDERABLESFinal ResultPerforming OrganizationAddressCity/State/ZIP CodePhone Number [facility] ([facility]) [address] [place] [address] * (ABNORMAL) Basic metabolic panel (05/29/2025 6:10 AM EDT) Only the most recent of3 resultswithin the time period is included. ComponentValueRef RangeTest MethodAnalysis TimePerformed AtPathologist Signature [id number] - 145 mmol/L05/29/2025 7:36 AM [facility] ([facility]) Potassium3.93.5 - 5.1 mmol/L05/29/2025 7:36 AM [facility] ([facility]) [id number] - 107 mmol/L05/29/2025 7:36 AM [facility] ([facility])CO229 21 - 31 mmol/L05/29/2025 7:36 AM [facility] ([facility])BUN6(L)7 - 25 mg/dL05/29/2025 7:36 AM [facility] ([facility])Creatinine0.67(L)0.70 - 1.30 mg/dL05/29/2025 7:36 AM [facility] ([facility])Vgyntsi67326 - 100 mg/dL05/29/2025 7:36 AM [facility] ([facility])Calcium8.1(L)8.6 - 10.3 mg/dL05/29/2025 7:36 AM [facility] ([facility])Anion Gap97 - 20 mmol/L 05/29/2025 7:36 AM [facility] ([facility])eGFR96.8>60.0 mL/min/1.73m*2 05/29/2025 7:36 AM [facility] ([facility])Comment:[facility]???s estimated glomerular filtration rate (eGFR) will no longer include consideration of race in its calculation. The [employer]???s eGFR Task Force developed new recommendations for the estimation of the glomerular filtration rate in the [place] They recommend immediate implementation of the new equation refit without the race variable in all la boratories because the calculation does not include race. In addition to not including race in the calculation and reporting, it included diversity in its development, and has acceptable performance characteristics and potential consequences that do not disproportionately affect any one group of individuals. BUN/Creatinine Ratio9. 7:36 AM [facility] ([facility])Specimen (Source)Anatomical Location / LateralityCollection Method / VolumeCollection TimeReceived TimeBloodVenous blood specimen / UnknownArterial Line / Unknown 05/29/2025 6:10 AM EDT05/29/2025 7:06 AM EDT Narrative Authorizing ProviderResult TypeResult StatusThhakan ALVARADO BLOOD ORDERABLESFinal ResultPerforming OrganizationAddressCity/State/ZIP CodePhone Number [facility] [address] [place] [address] * IR CT guided abscess fluid collection drainage (05/28/2025 2:28 PM EDT) Anatomical RegionLateralityModalityBodyComputed TomographySpecimen (Source) Anatomical Location / LateralityCollection Method / VolumeCollection Time Received Time05/28/2025 3:05 PM EDT Impressions 05/28/2025 3:08 PM EDT 1. Localizing CT revealed decreased mesenteric hematoma when compared to 05/26/2025. 2. Successful CT-guided placement of 8-Lebanese drain in the mesenteric hematoma containing few air bubbles; aspiration revealed 5 mL of dark blood; no pus was obtained. Therefore, the drain was removed and dressing placed. Electronically signed: CLEMENCIA NETTLES MD. Narrative 05/28/2025 3:08 PM EDT STUDY: 1. CT-guided placement of 8-Lebanese drain in abdominal fluid collection CLINICAL INDICATION: Hematoma in the abdominal mesentery with gas bubbles developing in the hematoma. COMPARISON: CT dated 05/26/2025 CONSENT: ??The reason of the procedure was discussed with the patient. The procedure, expectations, risks, benefits, options and alternatives were discussed. All of the patient's questions were answered. ??The patient understands that the results cannot be guaranteed. The procedure is indicated and the risks are acceptable. Consent was obtained. The patient received 75 mcg of fentanyl intravenously for pain control during the procedure. PROCEDURE: Automatic radiation exposure lowering techniques were utilized. All CT scans in this facility use dose modulation, iterative reconstruction, and/or weight based dosing when appropriate to reduce radiation dose to as low as reasonably achievable. In the supine position, the right lateral abdomen was prepped and draped in a sterile fashion and the skin was infiltrated with 1% lidocaine. Using CT guidance, a 17-gauge guiding needle was advanced percutaneously in the abdominal fluid collection seen on prior CT scan;. Was taken to avoid puncturing the adjacent bowel and mesenteric vessels. Aspiration revealed dark blood. Over an Amplatz wire, the tract was dilated, then an 8-Lebanese pigtail catheter was advanced over the wire and formed in the abdominal fluid collection in the position was confirmed by CT scan. Aspiration revealed 5 mL of dark bloody fluid obtained and sent for cultures. No pus was obtained. The drain was removed and dressing placed. The patient tolerated the procedure well. Estimated blood loss: 0.5 mL. COMPLICATIONS: No immediate. Procedure was well tolerated. Procedure Note Clemencia Nettles MD - 05/28/2025 STUDY: 1. CT-guided placement of 8-Lebanese drain in abdominal fluid collection CLINICAL INDICATION: Hematoma in the abdominal mesentery with gasbubbles developing in the hematoma. COMPARISON: CT dated 05/26/2025 CONSENT: The reason of the procedure was discussed with the patient.The procedure, expectations, risks, benefits, options and alternatives were discussed. All of the patient's questions were answered. The patient understands that the results cannot be guaranteed. The procedure isindicated and the risks are acceptable. Consent was obtained. The patient kclkvcoq29 mcg of fentanyl intravenously for pain control during the procedure. PROCEDURE: Automatic radiation exposure lowering techniques were utilized. All CTscans in this facility use dose modulation, iterative reconstruction, and/or weightbased dosing when appropriate to reduce radiation dose to as low as reasonably achievable. In the supine position, the right lateral abdomen was preppedand draped in a sterile fashion and the skin was infiltrated with 1%lidocaine. Using CT guidance, a 17-gauge guiding needle was advanced percutaneouslyin the abdominal fluid collection seen on prior CT scan;. Was taken to avoidpuncturing the adjacent bowel and mesenteric vessels. Aspiration revealed dark blood.Over an Amplatz wire, the tract was dilated, then an 8-Lebanese pigtail catheterwas advanced over the wire and formed in the abdominal fluid collection inthe position was confirmed by CT scan. Aspiration revealed 5 mL of dark bloodyfluid obtained and sent for cultures. No pus was obtained. The drain was removedand dressing placed. The patient tolerated the procedure well. Estimated blood loss: 0.5 mL. COMPLICATIONS: No immediate. Procedure was well tolerated. IMPRESSION: 1. Localizing CT revealed decreased mesenteric hematoma when compared to 05/26/2025. 2. Successful CT-guided placement of 8-Lebanese drain in the mesenterichematoma containing few air bubbles; aspiration revealed 5 mL of dark blood; no puswas obtained. Therefore, the drain was removed and dressing placed. Electronically signed: CLEMENCIA NETTLES MD. Authorizing ProviderResult TypeResult StatusNicole Amadio CNPG CT PROCEDURES Final Result * (ABNORMAL) Body fluid culture (05/28/2025 2:18 PM EDT)ComponentValueRef Range Test MethodAnalysis TimePerformed AtPathologist SignatureCultureLight Growth Serratia marcescens(A) MARIA TERESA 05/31/2025 6:28 AM [facility] ([facility])CultureLight Growth Jacki albicans(A) MARIA TERESA 05/31/2025 6:28 AM [facility] ([facility])Gram Stain ResultModerate Polymorphonuclear zyhtagdqhm95/30/2025 6:28 AM [facility] ([facility])Gram Stain ResultNo organisms seen05/31/2025 6:28 AM [facility] ([facility]) Specimen (Source)Anatomical Location / LateralityCollection Method / Volume Collection TimeReceived TimeFluid (Abdomen)05/28/2025 2:18 PM EDT05/28/2025 2:38 PM EDT Narrative OrganismAntibioticMethodSusceptibilitySerratia marcescensAmoxicillin + ClavulanateMIC >16/8 ug/ml: Resistant Serratia marcescensAmpicillinMIC >16 ug/ml: Resistant Serratia marcescensAmpicillin + SulbactamMIC >16/8 ug/ml: Resistant Serratia marcescensCefazolin (Non-Urine)MARIA TERESA Resistant Serratia marcescensCeftriaxoneMIC <=1 ug/ml: Susceptible Serratia marcescensCiprofloxacinMIC <=0.25 ug/ml: Susceptible Serratia marcescensGentamicinMIC <=2 ug/ml: Susceptible Serratia marcescensTobramycinMIC <=2 ug/ml: Susceptible Authorizing ProviderResult TypeResult StatusNicole Amadio CNPLAB MICROBIOLOGY - GENERAL ORDERABLESFinal ResultPerforming OrganizationAddressCity/State/ZIP Code Phone Number [facility] ([facility]) [address] [facility], [place] [address] * (ABNORMAL) Manual Differential (05/28/2025 5:07 AM EDT)ComponentValueRef Range Test MethodAnalysis TimePerformed AtPathologist SignatureNeutrophils Absolute 8.9(H)1.6 - 7.6 10*3/uL05/28/2025 7:08 AM [facility] ([facility]) Lymphocytes Absolute2.131.20 - 4.00 10*3/uL05/28/2025 7:08 AM [facility] ([facility])Monocytes Absolute2.00(H)0.10 - 1.00 10*3/uL05/28/2025 7:08 AM EDT [facility] ([facility])Eosinophils Absolute0.270.00 - 0.50 10*3/uL 05/28/2025 7:08 AM [facility] ([facility])Neutrophils %6740 - 72 % 05/28/2025 7:08 AM [facility] ([facility])Lymphocytes %16(L)20 - 45 % 05/28/2025 7:08 AM [facility] ([facility])Monocytes %15(H)5 - 12 % 05/28/2025 7:08 AM [facility] ([facility])Eosinophils %20 - 6 % 05/28/2025 7:08 AM [facility] ([facility])Specimen (Source)Anatomical Location / LateralityCollection Method / VolumeCollection TimeReceived Time BloodVenous blood specimen / UnknownVenipuncture / Elsdrmw6405/28/2025 5:07 AM EDT05/28/2025 5:13 AM EDT Narrative [facility] ([facility]) - 05/28/2025 7:08 AM EDT Normal Red Cell Population Authorizing ProviderResult TypeResult StatusThhakan Murphy MDLAB BLOOD ORDERABLESFinal ResultPerforming OrganizationAddressCity/State/ZIP CodePhone Number [facility] ([facility]) [address] [place], [place] [phone] * (ABNORMAL) Occult blood x 1, stool (05/16/2025 6:44 AM EDT)ComponentValueRef RangeTest MethodAnalysis TimePerformed AtPathologist SignatureFecal Occult Bld Positive(A)Negative, None Pahxquwb00/15/2025 8:08 AM [facility] ([facility])Specimen (Source)Anatomical Location / LateralityCollection Method / VolumeCollection TimeReceived TimeStoolRectal contents / UnknownNon-blood Collection / Vvfname8805/16/2025 6:44 AM EDT05/16/2025 6:56 AM EDT Narrative Authorizing ProviderResult TypeResult StatusThhakan ALVARADO BODY FLUIDS AND STOOLS ORDERABLESFinal ResultPerforming OrganizationAddressCity/State/ZIP Code Phone Number [facility] [address] [place] [phone] from Last 3 Months or Most Recently Relevant to Health Maintenance Insurance * Guarantor: Darrell Esquivel TypeRelation to PatientDate of BirthPhone Billing AddressPersonal/GdgokmBjok1950 [address] [address] Advance Directives * Full Code (Latest Code Status on File) Date ActivatedDate InactivatedComments05/12/2025 6:14 PM05/29/2025 8:04 PM Care Teams Team MemberRelationshipSpecialtyStart [place] [address] [place] [address] #A PCP - General11/08/24
--- OUTSIDE RECORDS SUMMARY | 2025-08-27 08:55 | XMS_ITS | CCD ---
Author Organization [facility] Care Team Providers Care Oral Surgery Physician Name Role Phone SCHROEDER, FELICIANO Unavailable Unavailable RICE, CLEVELAND W Unavailable Unavailable RICE, CLEVELAND W Unavailable Unavailable SCHROEDER, FELICIANO Unavailable Unavailable SCHROEDER, FELIICANO Unavailable Unavailable SCHROEDER, FELICIANO Unavailable Unavailable SCHROEDER, FELICIANO Unavailable Unavailable SCHROEDER, FELICIANO Unavailable Unavailable ALEXA GARCIA Unavailable Unavailable SCHROEDER, FELICIANO Unavailable Unavailable ABIGAIL SANCHEZ Primary Care Physician [phone] Abigail Sanchez Unavailable DANIEL, DR ABIGAIL Trejo Admitting Unavailable SANCHEZ, DR ABIGAIL Trejo Attending Unavailable SANCHEZ, DR ABIGAIL Trejo Primary Care Unavailable SANCHEZ, DR ABIGAIL Trejo Consulting Unavailable GARCIA, DR DENNY Admitting Unavailable GARCIA, DR DENNY Attending Unavailable SANCHEZ, DR ABIGAIL Trejo Primary Care Unavailable CORDER, DR OLIVER Maguire Consulting Unavailable GARCIA, DR [...] Attending Unavailable COOK, Rock Pollock Attending Unavailable Abigail Sanchez MD Primary Care Provider [phone] Rock Lujan MD Attending Provider Orlando NOBLE, Joselyn Blake Attending Provider Antonio MURRAYC, Satish Attending Provider Aminata Katz CMA Attending Provider Abigail Cox MD Attending Provider [phone] JOHN PLASENCIA Attending Unavailable ASHER BURNS Referring Unavailable AMADIO, SATISH Referring Unavailable BOYKIN-BUKOWIEC, CHRISTINA Referring Unavailabl e AMADIO, SATISH Referring Unavailable KATKOGIANCARLO Referring Unavailable OWEDUARDO MALLOY Attending Unavailable EDUARDO PEARSON Admitting Unavailable EDUARDO PEARSON Referring Unavailable CHINMAY, JOHN Attending Unavailable SANJU HOWARD Attending Unavailabl e JOHN PLASENCIA Referring Unavailable LEO GARCIA Attending Unavailable REBECCA, OPAL Attending Unavailable SANAZ, GAATHA Attending Unavailable CHINMAY, JOHN Attending Unavailable EDUARDO PEARSON Referring Unavailable EDUARDO PEARSON Referring Unavailable EDUARDO PEARSON Referring Unavailable MCQUILLIN, SIMON Referring Unavailable EDUARDO PEARSON Referring Unavailable BOYKIN-BUKOWIEC, CHRISTINA Referring Unavailmonica e CHINMAY, JOHN Referring Unavailable Abigail Sanchez MD Primary Care Provider [phone] Medications Current Medications MedicationDrug Class(es)DatesSig (Normalized)Sig (Original)amoxicillin 875 mg / clavulanate 125 mg oral tablet (2 sources)Penicillin-class AntibacterialStart: 98-68-4162yimo 1 tablet by mouth every twelve hoursAmoxicillin-Pot Clavulanate 875-125 MG 1 tablet Orally every 12 hrs for 10 day(s) Aug, Activeciprofloxacin 500 mg oral tablet (1 source)Quinolone AntimicrobialStart: 88-99-0616Rnngp 500 mg Tab See Instructions, Take 1 tab day prior to procedure and 1 tab day of procdure - aft erwards, # 2 tab(s), Refills(s) 0, Pharmacy: [facility], 177, cm, 06/03/25 9:35:00 EDT, Height/Length Dosing, 74.7, kg, 06/03/25 9:35:00 EDT, Weight Dosing Start Date: 06/05/25 Status: Ordered Quantity: 2.0 Unit: tab(s) Repeat number: 1Daily Multiple for Men 50+ oral tablet (8 sources)Start: 57-80-3326vsed 1 tablet by mouth once dailyDaily Multiple for Men 50+ oral tablet Oral, Daily, Refill(s) 0 Start Date: 06/15/20 Status: Ordered Repeat number: 1Start: 04-62-1728mjid 1 tablet by mouth once dailyDaily Multiple for Men 50+ oral tablet Oral, Daily, Refill(s) 0 Start Date: 06/15/20 Status: Ordereddoxycycline hyclate 100 mg oral tablet (1 source)Tetracycline-class DrugStart: 94-58-3117qkok 1 tablet by mouth twice dailydoxycycline hyclate 100 mg Tab 100 mg = 1 tab(s), Oral, BID, # 14 tab(s), Refills(s) 0, Pharmacy: [facility], 177, cm, 02/15/23 11:48:00 EDT, Height/Length Dosing, 78.9, kg, 02/15/23 11:48:00 EDT, Weight Dosing Start Date: 02/15/23 Status: OrderedIron (3 sources)Start: 73-66-2751Pmog Iron, 65 mg Start Date: 04/23/25 Status: Ordered Repeat number: 1lidocaine 0.05 mg/mg medicated patch (1 source)Antiarrhythmic, Amide Local AnestheticStart: 58-40-5615pwvns 1 dose topically once dailyLidocaine 5 % adhesive patch,medicated Active 2 PATCH TOPICAL Daily 15 0 July 22, 2025 12:00amleave on most painful area for up to 12 hrs Complies with drug therapyMultivitamin (Daily Multi-Vitamin) tablet (2 sources)Start: 62-89-9488kmlk 1 tablet by mouth once dailyMultivitamin (Daily Multi-Vitamin) tablet Active 1 TAB PO Daily October 09, 2024 1:00am Complies wi th drug therapyPsyllium (6 sources)Start: 23-01-3648Vfcfkzjwa Oral, BID Start Date: 02/15/23 Status: Ordered Repeat number: 1Start: 18-64-3501Iirhrwoay Oral, BID Start Date: 02/15/23 Status: OrderedSee instructions (1 source)Start: 58-92-5897Vpz instructions See instructions, CBC with differential on 09/18/2017 and follow up with PCP/Urologist. Diagnosis Right ureteric stone/UTI, Print Requisition, Supply Start Date: 09/09/17 Status: Order edtamsulosin hydrochloride 0.4 mg oral capsule (13 sources)alpha-Adrenergic BlockerStart: 01-23-0767djgk 1 capsule by mouth twice dailytamsulosin 0.4 mg Cap 0.4 mg = 1 cap(s), Oral, BID, # 180 cap(s), Refills(s) 3, Pharmacy: [facility], 177, cm, 10/16/24 8:08:00 EST, Height/Length Dosing, 78, kg, 10/16/24 8:08:00 EST, Weight Dosing Start Date: 01/01/25 Status: Ordered Quantity: 180.0 Unit: cap(s) Repeat number: 4Start: 91-25-0745dqao 1 capsule by mouth once dailyTamsulosin 0.4 mg capsule Active 1 CAP PO Daily October 08, 2024 1:00am FreeTextSi capsule Orally Once a day; Note: Source Status: Taking; Provider: Daniel Gomez ( ) Complies withdrug therapyStart: 17-70-1524ktbd 1 capsule by mouth twice dailytamsulosin 0.4 mg Cap 0.4 mg = 1 cap(s), Oral, BID, # 180 cap(s), Refills(s) 3, Pharmacy: [facility], 177, cm, 08/23/23 8:44:00 EST, Height/Length Dosing, 78.9, kg, 08/23/23 8:44:00 EST, Weight Dosing Start Date: 01/09/24 Status: Ordered Start: 96-96-2704sfil 1 capsule by mouth twice dailytamsulosin 0.4 mg Cap 0.4 mg = 1 cap(s), Oral, BID, # 180 cap(s), Refills(s) 3, Pharmacy: [facility], 177, cm, 07/26/22 13:27:00 EDT, Height/Length Dosing, 87.5, kg, 07/26/22 13:27:00EDT, Weight Dosing Start Date: 01/12/23 Status: OrderedStart: 07-52-2318afns 1 capsule by mouth twice dailytamsulosin 0.4 mg Cap 0.4 mg = 1 cap(s), Oral, BID, # 180 cap(s), Refills(s) 3, Pharmacy: [facility], 177, cm, 10/25/21 11:30:00 EST, Height/Length Dosing, 78.9, kg, 10/25/21 11:30:00EST, Weight Dosing Start Date: 01/05/22 Status: Orderedtake 1 capsule by mouth every twenty-four hoursTamsulosin HCl 0.4 MG 1 capsule Orally Once a day ActivevalACYclovir 1000 mg oral tablet (3 sources)Herpesvirus Nucleoside Analog DNA Polymerase Inhibitor, Herpes Simplex Virus Nucleoside Analog DNA Polymerase Inhibitor, Herpes Zoster Virus Nucleoside Analog DNA Polymerase InhibitorStart: 07-09-2025 End: 72-81-6621Calovvkgqlix (Valtrex) 1 gram tablet Active 1000 MG PO Every 8 hours 21 0 July 14, 2025 10:02am Complies with drug therapy Completed/Discontinued Medications MedicationDrug Class(es)DatesSig (Normalized)Sig (Original)losartan potassium 25 mg oral tablet (20 sources)Angiotensin 2 Receptor BlockerStart: 01-03-2024 End: 95-27-2079uqwg 1 tablet by mouth once dailyLosartan 25 mg tablet Discontinued 0 .ROUTE .COMPLEX 90 0 October 04, 2024 1:51pm December 26, 2024 8:15am TAKE 1 TABLET BY MOUTH DAILYStart: 01-12-2016 End: 01-48-7486eyra 1 tablet by mouth once dailyLosartan 25 mg tablet Discontinued 25 MG PO Daily January 03, 2024 12:00am January 03, 2024 1:38pmtake 1 tablet by mouth every twelve hoursLosartan Potassium 25 MG 1 tablet Orally twice a day Active Problems Active Problems Problem ClassificationProblemDateDocumented DateEpisodic/ChronicAbdominal hernia (5 sources)Diaphragmatic hernia without obstruction or gangrene; Translations: [Inguinal hernia]Onset: 29-74-4268KpcbpqneChhkionqd pain (3 sources)Unspecified abdominal pain; Translations: [Unspecified abdominal pain]Onset: 52-27-0605RwllatvsDbpmmtumq and vision defects (2 sources)Unspecified visual loss; Translations: [Unspecified visual loss] Onset: 06-09-8512GarmcbaGtgpvfer of urinary tract (20 sources)Calculus of kidney; Translations: [Calculus of ureter]Onset: 346842-18-6054OqidbefoUrkudulgtduzi of surgical procedures or medical care (2 sources)Infection following a procedure, organ and space surgical site, initial encounter; Translations: [Infection following a procedure, organ and space surgical site, initial encounter]Onset: 69-80-8727XjoswmfySldzbdyhav and other anemia (2 sources)Iron deficiency anemia secondary to blood loss (chronic); Translations: [Iron deficiency anemia secondary to blood loss (chronic)]Onset: 51-29-9596CoxgjjiBwpnpmeabc and other anemia (17 sources)Iron deficiency anemia; Translations: [Iron deficiency anemia, unspecified]96-91-7048HoffoeyrJbmdbxbz of white blood cells (2 sources)Elevated white blood cell count, unspecified; Translations: [Elevated white blood cell count, unspecified]Onset: 27-47-7487EtgnjmpJvmuqlhpc of lipid metabolism (11 sources)Very low density lipoprotinemia; Translations: [Pure hypercholesterolemia, unspecified]Onset: 148825-99-5063Atyevyj Diverticulosis and diverticulitis (16 sources)Diverticulitis of intestine, part unspecified, without perforation or abscess without bleeding; Translations: [Diverticulosis of sigmoid colon] Onset: 79-14-2822GbqadsaSdnppfopk hypertension (20 sources)Essential (primary) hypertension; Translations: [Hypertensive disorder]Onset: 472560-39-3614YkmlgrxGimdkuibihcsv symptoms and ill- defined conditions (20 sources)Samir hematuria; Translations: [Nocturia]Onset: 01-30-2019 Resolved: 345895-93-3517BllyzokqIhrjz valve disorders (6 sources)Mitral valve disorder; Translations: [Rheumatic mitral valve disease, unspecified]Onset: 070205-57-2112HxxomdrXdmnt valve disorders (2 sources)Heart murmur; Translations: [Cardiac murmur, unspecified]10-09-2024 EpisodicHyperplasia of prostate (20 sources)Benign prostatic hypertrophy with outflow obstruction; Translations: [Benign prostatic hyperplasia with lower urinary tract symptoms]Onset: 57-33-7060WmygnkkEqfvuexdidhd with complications and secondary hypertension (2 sources)Hypertensive heart disease without heart failure; Translations: [Hypertensive heart disease withoutheart failure]Onset: 87-25-7721Gtimuwj 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 (12 sources)Epididymitis; Translations: [Epididymitis]Onset: 47-81-3243Njcsckav Intestinal obstruction without hernia (2 sources)Unspecified intestinal obstruction, unspecified as to partial versus complete obstruction; Translations: [Unspecified intestinal obstruction, unspecified as to partial versus complete obstruction]Onset: 06-04-4223Nvxcvjqo Malaise and fatigue (15 sources)Asthenia; Translations: [Fatigue]Onset: 987648-88-1419Ddnbkjtv Nutritional deficiencies (1 source)Vitamin D deficiency, unspecified; Translations: [Vitamin D deficiency, unspecified]Onset: 86-71-0154CrfdenqOyxoedohgdkpzi (2 sources)Unspecified osteoarthritis, unspecified site; Translations: [Unspecified osteoarthritis, unspecified site]Onset: 50-69-9473TkycwduBkokw aftercare (2 sources)Encounter for adjustment and management of vascular access device; Translations: [Encounter for adjustment and management of vascular access device]Onset: 01-23-2272SnuyxqieHcwrg and unspecified benign neoplasm (3 sources)Benign neoplasm of colon, unspecified; Translations: [Benign neoplasm of colon, unspecified]Onset: 02-55-5612CharozqwRtjwc and unspecified benign neoplasm (6 sources)Adenomatous polyp of ekvlx88-39-3223LayuxeupJvzwm circulatory disease (2 sources)Elevated blood-pressure reading without diagnosis of hypertension; Translations: [Elevated blood-pressure reading, without diagnosis of hypertension]EpisodicOther diseases of kidney and ureters (2 sources)Other obstructive and reflux uropathy; Translations: [Other obstructive and reflux uropathy]Onset: 71-17-1848RgjfuskxAnvtv injuries and conditions due to external causes (2 sources)History of fall; Translations: [History of falling]EpisodicOther injuries and conditions due to external causes (2 sources)Other injury of unspecified body region, initial encounter; Translations: [Other injury of unspecified body region, initial encounter]Onset: 58-08-1024NqxpvxpeKlqrv lower respiratory disease (3 sources)Dyspnea on exertion; Translations: [Other forms of dyspnea]Episodic Other lower respiratory disease (2 sources)Dyspnea; Translations: [Other forms of dyspnea]EpisodicOther nutritional; endocrine; and metabolic disorders (7 sources)Overweight in adulthood with body mass index of 25 or more but less than 1139-45-8214LbmnkelmEzpgt nutritional; endocrine; and metabolic disorders (4 sources)Body mass index 25-29 - overweight; Translations: [Body mass index (BMI) 26.0-26.9, adult]EpisodicOther screening for suspected conditions (not mental disorders or infectious disease) (20 sources)Raised prostate specific antigen; Translations: [Elevated prostate specific antigen [PSA]]Onset: 13-63-9116BrczcyzgQakrm skin disorders (2 sources)Skin lesion; Translations: [Disorder of the skin and subcutaneous tissue, unspecified]28-79-0067LdqokgpgJmtdt skin disorders (2 sources)Rash and other nonspecific skin eruption; Translations: [Rash and other nonspecific skin eruption]Onset: 52-57-9932AynvplkaAvbzm upper respiratory disease (9 sources)Seasonal allergic rhinitis; Translations: [Other seasonal allergic rhinitis]Onset: 357518-45-9155CerzazlLuvgrhyhwoj and intestinal abscess (2 sources)Peritoneal abscess; Translations: [Peritoneal abscess]Onset: 08-26-9892VljrdcgiLudhgdmhg heart disease (2 sources)Pulmonary hypertension, unspecified; Translations: [Pulmonary hypertension, unspecified]Onset: 38-12-6641NxocpcjWwflsxnr codes; unclassified (2 sources)Immunization refused ; Translations: [Immunization not carried out because of patient refusal]EpisodicSkin and subcutaneous tissue infections (2 sources)Cutaneous abscess, unspecified; Translations: [Cutaneous abscess, unspecified]Onset: 21-39-1633WygorgjcFwkiktulqgs; intervertebral disc disorders; other back problems (10 sources)Degeneration of cervical intervertebral disc; Translations: [Other cervical disc degeneration, unspecified cervical region]Onset: 11-08-2024 71-36-6813UbwhvqgEwnrtcznqvbl (1 source)Unknown / UNK(Unknown)Onset: 11-05-4396Cuczifrkmrey (1 source)CONTACT W/AND (SUSP) EXPOS COVID-19; Translations: [CONTACT W/AND (SUSP) EXPOS COVID-19]Onset: 69-99-9205Krarwkdqzjoq (2 sources)Post-op; Translations: [Post-op]Onset: 66-36-4904Zouymfvdxfyv (1 source)Personal history of colon polyps, unspecified; Translations: [Personal history of colon polyps, unspecified]Onset: 63-64-8679Dfdqkwa tract infections (8 sources)Urinary tract infectious spzmyyg71-25-0234RngknxqkSdyhj infection (2 sources)Thoracic herpes zoster infection ; Translations: [Zoster without complications]47-81-2467Ytvkrizm Past or Other Problems Problem ClassificationProblemDateDocumented DateEpisodic/ChronicDeficiency and other anemia (4 sources)Iron deficiency anemia, unspecified; Translations: [IRON DEFICIENCY ANEMIA UNSPECIFIED]Onset: 78-84-1207FdczppwbRviqffwms and duodenitis (1 source)Gastritis, unspecified, without bleeding; Translations: [GASTRITIS UNS WITHOUT BLEEDING]Onset: 97-33-5628ThsvghtsKjkxj aftercare (1 source)Other [place] [facility] (current) drug therapy; Translations: [OTH FUR BLOWER CURRENT DRUG THERAPY]Onset: 00-76-5888SriuwbjiHgejp and unspecified benign neoplasm (1 source)Benign neoplasm of sigmoid colon; Translations: [BENIGN NEOPLASM OF SIGMOID COLON]Onset: 40-23-8293NcmiouoxOqhpa and unspecified benign neoplasm (1 source)Personal history of colonic polyps; Translations: [PERSONAL HISTORY OF COLONIC POLYPS]Onset: 00-34-5084IetbfumhRgrzp upper respiratory infections (3 sources)Acute maxillary sinusitis; Translations: [Acute recurrent maxillary sinusitis]Onset: 46-05-8371CcvvcttzSedcftfkxzo; intervertebral disc disorders; other back problems (2 sources)Neck pain; Translations: [Cervicalgia]Onset: 01-79-8071Eixvxyip Unclassified (2 sources)Family history of disorders of kidney and ureter; Translations: [Family history of other endocrine,nutritional and metabolic diseases]Onset: 15-13-9675RuzvtiepAywngjxysjxn (1 source)Personal history of colon polyps, unspecified; Translations: [Personal history of colon polyps, unspecified]Onset: 12-77-6288Lpzni infection (1 source)COVID-19 Results Test NameValueInterpretationReference SnaugOzxvbjfb24dc 92-78-943112Bocgsnsfv picc line removed with OhioansNormalUniversity [facility] Ambulatory Visit Summaryon 13-97-1705Mlghfcifog Visit SummaryAmbulatory Visit Summary DARRELL NELSON :1950 Visit Date:06/18/2025 Ambulatory Visit Instructions Your Diagnosis Urinary retention Your Care Team Attending Physician - KARLEE GA, Rock Pollock Primary Care Physician - ABIGAIL SANCHEZ MD This Is Your Medications List Non-Formulary Medication (Iron) ciprofloxacin (Cipro 500 mg Tab) losartan (losartan 25 mg Tab) [...] inguinal hernias, Sinus Surgery, Small bowel resection. What to do next Scheduled Follow-Up Appointments Monday2025 8:15 AM EST With: KARLEE GA, Rock Pollock Where: [facility] [address], [address] [place] [address]- Medications What How Much When Instructions Unchanged ciprofloxacin (Cipro 500 mg Tab) See instructions Take 1 tab day prior to procedure and 1tab day of procdure - afterwards Unchanged losartan (losartan 25 mg Tab) 90 EA, TAKE 1 TABLET BY MOUTH DAILY Unchanged multivitamin with minerals (Daily Multiple for Men 50+ oral tablet) By Mouth Every day Unchanged Non-Formulary Medication (Iron) 65 Milligram Unchanged psyllium (Metamucil) By Mouth 2 times a day Unchanged tamsulosin (tamsulosin 0.4 mg Cap) 1 Capsules By Mouth 2 times a day Allergies No Known Allergies Problems Ongoing - [...] you for choosing us for your care. Patient Portal You may access all of your results and other medical record information on our secure patient portal. If you are not signed up for this yet, please contact [facility] at [phone] to get signed up today. Language Information Language assistance services are available as needed. [facility]36on [phone] to patient to confirm picc line removed at end of antibiotic therapy. VM and callback number left for patient to return call.NormalLake County Memorial Hospital - WestCT ABDOMEN PELVIS W IV CONTRASTon 65-88-9414FS ABDOMEN PELVIS W IV CONTRASTInvalid Interpretation CodeUnTriHealth Bethesda North HospitalBasophils Auto (Bld) [#/Vol]Ordered By: Satish Alvarez on 06-09-2025 Basophils (Bld) [#/Vol]0.0 10 3/uL0.0-0.1FMercy Health St[facility] Basophils/100 WBC Auto (Bld)Ordered By: Satish Alvarez on 00-11-4108Voukmeccy/100 WBC (Bld)0.5 %0.2-2.0[facility] HospitalEosinophils/100 WBC Auto (Bld)Ordered By: Satish Alvarez on 19-13-9126Qmsdpllutsm/100 WBC (Bld)3.1 % 0.9-7.0[facility] HospitalErythrocyte distribution width Auto (RBC) [Ratio]Ordered By: Satish Alvarez on 43-48-1237Stneompadbd distribution width (RBC) [Ratio]14.0 %11.0-15.0[facility] HospitalGlomerular filtration rate (GFR) estimation in non- AmericanOrdered By: Satish Alvarez on 64-86-7895RYX/1.73 sq M.predicted among non-blacks MDRD (S/P/Bld) [Vol rate/Area]mL/min/{1.73_m2}>=60 mL/min/1.[address]m [address] [place] [address] Hematocrit Auto (Bld) [Volume fraction]Ordered By: Satish Alvarez on 06-09-2025 Hematocrit (Bld) [Volume fraction]29.7 %Low42.0-54.0[facility] HospitalHemoglobin [Mass/volume] in BloodOrdered By: Satish Alvarez on 06-09-2025 Hemoglobin (Bld) [Mass/Vol]9.8 g/dLLow14.0-18.0[facility] Laboratory - Chemistry and Chemistry - challengeOrdered By: Satish Alvarez on 10-19-8242Azeambeslr [Mass/Vol]0.77 mg/dL0.70-1.30[facility] HospitalGFR/1.73 sq M.predicted MDRD (S/P/Bld) [Vol rate/Area]mL/min/{1.73_m2}>=60 mL/min/1.[address]m [address] [place], [place] [address]Urea nitrogen [Mass/Vol]8.0 mg/dL 7.0-18.0[facility] HospitalLaboratory - Hematology and Cell counts Ordered By: Satish Alvarez on 01-42-1432Zoegcvxd granulocytes/100 WBC (Bld)0.2 % 0.0-0.5FMercy Health St. Elizabeth [facility] HospitalLeukocytes [#/volume] corrected for nucleated erythrocytes in Blood by Automated counOrdered By: Satish Alvarez on 77-15-7115WSV corrected for nucl RBC Auto (Bld) [#/Vol]8.3 10 3/uL4.0-11.0 [facility] HospitalLymphocytes Auto (Bld) [#/Vol]Ordered By: Satish Alvarez on 81-31-5362Rihulnmvkvx (Bld) [#/Vol]2.0 10 3/uL1.2-3.8[facility] HospitalLymphocytes/100 WBC Auto (Bld)Ordered By: Satish Alvarez on 75-19-4804Atqlkchrkwh/100 WBC (Bld)24.2 %20.5-60.0[facility] HospitalMCH Auto (RBC) [Entitic mass]Ordered By: Satish Alvarez on 69-60-9956QRU (RBC) [Entitic mass]30.9 pg25.9-34.0[facility] HospitalMCHC Auto (RBC) [Mass/Vol]Ordered By: Satish Alvarez on 36-26-3036CTKD (RBC) [Mass/Vol]33.0 g/dL29.9-35.2FMercy Health St. Elizabeth Youngstown HospitalMCV Auto (RBC) [Entitic vol] Ordered By: Satish Alvarez on 95-48-2175GVG (RBC) [Entitic vol]93.7 fL80.0-94.0 [facility] HospitalMonocytes Auto (Bld) [#/Vol]Ordered By: Satish Alvarez on 61-75-0554Poqiieqfe (Bld) [#/Vol]1.0 10 3/uLHigh0.3-0.8[facility] HospitalMonocytes/100 WBC Auto (Bld)Ordered By: Satish Alvarez on 98-42-7280Zerhhsgsh/100 WBC (Bld)12.5 %High1.7-12.0[facility] HospitalNeutrophils Auto (Bld) [#/Vol]Ordered By: Satish Alvarez on 06-09-2025 Neutrophils (Bld) [#/Vol]5.0 10 3/uL1.4-6.5FMercy Health St. [facility] Neutrophils/100 WBC Auto (Bld)Ordered By: Satish Alvarez on 09-08-2025 Neutrophils/100 WBC (Bld)59.5 %43.0-75.0[facility] HospitalNo Panel InformationOrdered By: Satish Alvarez on 47-44-0291Ofswlohbudu # (Auto)0.3 10 3/uL0.0-0.7FMercy Health St. Elizabeth [facility] HospitalImmature Granulocyte # (Auto)0.02 10 3/uL0.00-0.03[facility] HospitalPlatelet mean volume Auto (Bld) [Entitic vol]Ordered By: Satish Alvarez on 28-17-7785Uyysoqsr mean volume (Bld) [Entitic vol]11.3 fL9.5-13.5FMercy Health St. Elizabeth Young[facility] HospitalPlatelets Auto (Bld) [#/Vol]Ordered By: Satish Alvarez on 90-16-1459Gymglhndv (Bld) [#/Vol] 190 10 3/xD200-163JvgcevipbMercy Health – The Jewish HospitalRBC Auto (Bld) [#/Vol]Ordered By: Satish Alvarez on 43-63-8521JPV (Bld) [#/Vol]3.17 10 6/uLLow4.70-6.10 [facility]36on 54-01-243676Zlrpsjx called back in unable to come in early.NormalLake County Memorial Hospital - West36Called patient to move appt up no answer lmom to cb.NormalLake County Memorial Hospital - West Follow-Upon 43-13-8531Chbzxc-UpNormalUniversity [facility] Telephoneon 62-40-8112IivarcwztLalrohBxfzxzdsgy [facility]37on [phone] [facility] HospitalFollow-Upon 06-05-2025 Follow-UpNormalUniversity [facility] HospitalOrders Onlyon 34-36-7884Vlrbne OnlyNormalUniversVeterans Health Administration36on [phone] with Renetta, landcare officer, at [facility] and confirmed they had OPAT orders. Nurse is going to visit patient and draw labs today 06/04. Confirmed fax number for results to be sent over.NormalUniversity of Farnsworth Medical CenterBasophils Auto (Bld) [#/Vol]Ordered By: Satish Avlarez on 14-51-4730Kquophqpx (Bld) [#/Vol]0.1 10 3/uL0.0-0.1FMercy Health St. Elizabeth Young[facility] HospitalBasophils/100 WBC Auto (Bld)Ordered By: Satish Alvarez on 06-04-2025 Basophils/100 WBC (Bld)0.6 %0.2-2.0[facility] Eosinophils/100 WBC Auto (Bld)Ordered By: Satish Alvarez on 06-04-2025 Eosinophils/100 WBC (Bld)4.6 %0.9-7.0[facility] Erythrocyte distribution width Auto (RBC) [Ratio]Ordered By: Satish Alvarez on 69-45-6886Bnvjipnhwns distribution width (RBC) [Ratio]15.0 %11.0-15.0[facility] HospitalGlomerular filtration rate (GFR) estimation in non- AmericanOrdered By: Satish Alvarez on 47-31-3209YHW/1.73 sq M.predicted among non-blacks MDRD (S/P/Bld) [Vol rate/Area]mL/min/{1.73_m2}>=60 mL/min/1.73m 2FMercy Health St. Elizabeth [facility] HospitalHematocrit Auto (Bld) [Volume fraction]Ordered By: Satish Alvarez on 84-91-5142Betfsmmzlg (Bld) [Volume fraction]27.4 %Low 42.0-54.0[facility] HospitalHemoglobin [Mass/volume] in Blood Ordered By: Satish Alvarez on 49-37-0344Nmlctfpafx (Bld) [Mass/Vol]9.2 g/dLLow 14.0-18.0[facility] HospitalLaboratory - Chemistry and Chemistry - challengeOrdered By: Satish Alvarez on 17-18-8335Vmexaymiew [Mass/Vol]0.83 mg/dL 0.70-1.30[facility] HospitalGFR/1.73 sq M.predicted MDRD (S/P/Bld) [Vol rate/Area]mL/min/{1.73_m2}>=60 mL/min/1.73m [address]FM[address] Health St[address] [facility] HospitalUrea nitrogen [Mass/Vol]8.0 mg/dL7.0-18.0[facility] Laboratory - Hematology and Cell countsOrdered By: Satish Alvarez on 06-04-2025 Immature granulocytes/100 WBC (Bld)0.4 %0.0-0.5FMercy Health St. [facility] Leukocytes [#/volume] corrected for nucleated erythrocytes in Blood by Automated counOrdered By: Satish Alvarez on 75-05-6432NGT corrected for nucl RBC Auto (Bld) [#/Vol]9.6 10 3/uL4.0-11.0[facility] HospitalLymphocytes Auto (Bld) [#/Vol]Ordered By: Satish Alvarez on 16-98-5123Kzbwnffaezu (Bld) [#/Vol]2.0 10 3/uL1.2-3.8[facility] HospitalLymphocytes/100 WBC Auto (Bld)Ordered By: Satish Alvarez on 49-42-6208Ttijphjfdmf/100 WBC (Bld)20.5 % 20.5-60.0[facility]H Auto (RBC) [Entitic mass]Ordered By: Satish Alvarez on 64-04-9022URJ (RBC) [Entitic mass]32.1 pg25.9-34.0[facility] HospitalMCHC Auto (RBC) [Mass/Vol]Ordered By: Satish Alvarez on 57-00-0447AHDA (RBC) [Mass/Vol]33.6 g/dL29.9-35.2FMercy Health St. Elizabeth [facility] HospitalMCV Auto (RBC) [Entitic vol]Ordered By: Satish Alvarez on 25-29-5092NAX (RBC) [Entitic vol]95.5 zYVbay00.0-94.0[facility] Monocytes Auto (Bld) [#/Vol]Ordered By: Satish Alvarez on 19-64-0079Ysochwmen (Bld) [#/Vol]1.3 10 3/uLHigh0.3-0.8[facility] Monocytes/100 WBC Auto (Bld)Ordered By: Satish Alvarez on 58-79-3203Piceeuoig/100 WBC (Bld)13.1 %High1.7-12.0[facility] HospitalNeutrophils Auto (Bld) [#/Vol]Ordered By: Satish Alvarez on 82-39-9014Iygibtsxcfi (Bld) [#/Vol]5.9 10 3/uL1.4-6.5FMercy Health St. Elizabeth [facility] HospitalNeutrophils/100 WBC Auto (Bld) Ordered By: Satish Alvarez on 06-85-6593Lvyxwqxtguf/100 WBC (Bld)60.8 %43.0-75.0 [facility] HospitalNo Panel InformationOrdered By: Satish Alvarez on 27-83-3441Klewcshseau # (Auto)0.4 10 3/uL0.0-0.7FMercy Health St. Elizabeth [facility] HospitalImmature Granulocyte # (Auto)0.04 10 3/uLHigh0.00-0.03[facility] HospitalPlatelet mean volume Auto (Bld) [Entitic vol]Ordered By: Satish Alvarez on 64-88-5143Omdzhhhk mean volume (Bld) [Entitic vol]11.2 fL9.5-13.5 [facility] HospitalPlatelets Auto (Bld) [#/Vol]Ordered By: Satish Alvarez on 76-79-5657Rawsdcjgy (Bld) [#/Vol]233 10 3/vE045-446AzqrzycpwMercy Health – The Jewish HospitalRBC Auto (Bld) [#/Vol]Ordered By: Satish Alvarez on 06-80-4157HLF (Bld) [#/Vol]2.87 10 6/uLLow4.70-6.10[facility] HospitalAmbulatory Visit Summaryon 50-88-5906Pkjuahqpnq Visit SummaryAmbulatory Visit Summary DARRELL NELSON :1950 Visit Date:06/03/2025 Ambulatory Visit Instructions Your Diagnosis Urinary retention BPH with urinary obstruction Elevated PSA History of kidney stones Your Care Team Attending Physician - KARLEE GA, Rock Pollock Primary Care Physician - DANIEL GA, ABIGAIL This Is Your Medications List Contact prescribing [...] Rock LUJAN MD Where: [facility] [address], [address] [place] [address]- You Need to Schedule the Following Appointments Follow Up with Rock LUJAN MD, URL When: Where: [address] [address]- Medications What How Much When Instructions Unchanged [...] a day Contact prescribing physician if questions orconcerns Unchanged tamsulosin (tamsulosin 0.4 mg Cap) 1 [...] to pass urine or can only pass alittle urine. This condition can happen suddenly and [...] As men age, their prostate may become largerand may start to press or squeeze on [...] or because he does not want to usethe bathroom. What are the signs or symptoms? Symptoms of this condition include: ??? Trouble urinating. ??? Pain in the lower abdomen. How is this diagnosed? This condition is diagnosed based on a physical exam and your medical history. You m (more content not included)...[facility] HospitalResults Follow-Upon 34-72-6020Eyupbhk Follow-UpNormalUniversity of [facility] Hospital Urology Office/Clinic Noteon 64-85-0829Ndiygqo Office/Clinic NoteUrology Office/Clinic Note Chief Complaint F/u to discuss cath removal HPI Staff Pt had a bowel resection 05/12/12 at [facility]. Catheter was placed and removed a couple of times. Each time removed pt was unable to void on his own. An indwelling cath was placed this past Monday and was left in. He is here to discuss cath removal today. Pt states he had no problem emptying his bladder before the procedure at [facility]. Dx: elevated PSA (PSA due in [...] parenchymal enhancement. Region of scarring within lateral Rkidney. Moderate collecting system dilatation of bilateral kidneys [...] UR after bowel resection on 05/12/25 at [facility], catheter was placed. Failed TOV 05/28/25, difficulty with catheter replacement per pt. States he was discharged 05/29/25. No issues with emptying previously. Discussed options including repeat TOV and restarting Flomax. Advised pt ifhe fails TOV again, will need to proceed [...] MD, URL [address] [address]- Additional Instructions: has f/u 11/05/25 w/ PSA and KUB Patient Education Acute Urinary Retention, Male I, Ale Pelaez, personally scribed for Dr. Lujan on (more content not included)... [facility] Memorial HospitalComment on above:Result Comment: Electronically Signed By: Rock LUJAN MD\.br\Date and Time Signed: 06/03/25 10:08 EDT\.br\Electronically Co-Signed By: Ale Pelaez\.br\Date and Time Co-Signed: 06/03/25 10:06 EDTDocumentationon 27-39-0541LtmzgdajospkbEttyzlXexssjfxlr of [facility] Medical CenterOrders Onlyon 33-01-3148Wsfvbp OnlyNormalUniversity [facility]30on 11-47-255496DkxhvdRrumfwlcnp [facility] BASIC METABOLIC PANELon 74-51-6504Rdkjp gap [Moles/Vol]9 mmol/LNormal7-20 [facility] - WestComment on above:Performed By: #### [id number] ####[facility] ([facility])[address] [place], [place] [address]Iisngjf [Mass/Vol]8.1 mg/dLLow8.6-10.3UnTriHealth Bethesda North HospitalComment on above:Performed By: #### [id number] ####[facility] ([facility])[address] [place] [id number] [Moles/Vol]102 mmol/SLooqsc21-994TtadnngttcTriHealth Bethesda North HospitalComment on above:Performed By: #### [id number] ####[facility] ([facility])[address] [place] [id number] [Moles/Vol]29 mmol/LNormal 21-31UnTriHealth Bethesda North HospitalComment on above:Performed By: #### [id number] ####[facility] ([facility])[address] [place] [id number] [Mass/Vol]0.67 mg/dLLow0.70-1.30UnTriHealth Bethesda North HospitalComment on above:Performed By: #### [id number] ####[facility] ([facility])[address] [place] [id number] FILTRATION RATE ML/MIN/1.73 SQ M.CDGAXJYQZ15.8 mL/min/1.73m*2Normal>60.0UnTriHealth Bethesda North HospitalComment on above: Result Comment: The [facility]???s estimated glomerular filtration rate (eGFR) will no [...] potential consequences that do not disproportionately affect anyone group of individuals.Performed By: #### [id number] ####[facility] ([facility])[address] [place] [id number] [Mass/Vol]100 mg/sXRaqmim66-949KglomwhqvzTriHealth Bethesda North HospitalComment on above:Performed By: #### [id number] ####[facility] ([facility])[address] [place] [id number] [Moles/Vol]3.9 mmol/LNormal3.5-5.1UnTriHealth Bethesda North HospitalComment on above:Performed By: #### [id number] ####[facility] ([facility])[address] [place] [address] Sodium [Moles/Vol]136 mmol/HNckvgk365-800LofecxfjaiTriHealth Bethesda North Hospital Comment on above:Performed By: #### [id number] ####[facility] ([facility])[address] [place] [address]Tmor nitrogen [Mass/Vol]6 mg/dLLow7-25UnTriHealth Bethesda North HospitalComment on above:Performed By: #### [id number] ####[facility] ([facility])[address] [place] [address]HADD NITROGEN/CREATININE (MASS RATIO) IN SER/PLAS9.0NormalUniversVeterans Health AdministrationComment on above:Performed By: #### [id number] ####[facility] ([facility])[address] [place] [address]HUC WITH AUTO DIFFERENTIALon 14-15-2483Ywothracdfp distribution width (RBC) [Ratio]15.2 %High11.5-15.0UnTriHealth Bethesda North HospitalComment on above:Performed By: #### [id number] ####[facility] ([facility])[address] [place] [address]HSKKDDPIIPI MEAN CORPUSCULAR HEMOGLOBIN CONCENTRATION (G/DL) BY EUSCABCOA29.9 g/lKOfvfuv00.0-35.0UnTriHealth Bethesda North HospitalComment on above:Performed By: #### [id number] ####[facility] ([facility])[address] [place], [place] [address]Pgvzqfttml (Bld) [Volume fraction]27.4 %Low39.0-50.0UnTriHealth Bethesda North HospitalComment on above: Performed By: #### [id number] ####[facility] ([facility])[address] [place], [place] [address]Bhvyjbbdew (Bld) [Mass/Vol]9.3 g/dLLow13.0-17.0UnTriHealth Bethesda North HospitalComment on above:Performed By: #### [id number] ####[facility] ([facility])[address] [place] [id number] (RBC) [Entitic mass] 31.4 esMdpqui16.0-33.0UnTriHealth Bethesda North HospitalComment on above: Performed By: #### [id number] ####[facility] ([facility])[address] [place] [id number] (RBC) [Entitic vol]92.6 eXVsphko61.0-98.0UnTriHealth Bethesda North HospitalComment on above:Performed By: #### [id number] ####[facility] ([facility])[address] [place] [address]CURV (PER 100 WBCS) BY AUTOMATED COUNT0.0 %Joohxi9PdvzrevzmwTriHealth Bethesda North HospitalComment on above: Performed By: #### [id number] ####[facility] ([facility])[address] [place] [id number] (10*3/UL) IN BLOOD AUTOMATED [id number] 10*3/uLNormal 150-400UnTriHealth Bethesda North HospitalComment on above:Performed By: #### [id number] ####[facility] ([facility])[address] [place] [id number] (Bld) [#/Vol]2.96 10*6/uLLow4.20-5.70UnTriHealth Bethesda North HospitalComment on above:Performed By: #### [id number] ####[facility] ([facility])[address] [place] [id number] (Bld) [#/Vol]13.28 10*3/uLHigh4.00-10.60UnTriHealth Bethesda North HospitalComment on above:Performed By: #### [id number] ####[facility] ([facility])[address] [place] [address]JReg 06-37-9831WNVdltzf [facility] - WestMAGNESIUMon 41-48-6181Bvythkjyw [Mass/Vol]2.0 mg/dLNormal1.9-2.7UnTriHealth Bethesda North HospitalComment on above:Performed By: #### [id number] ####[facility] ([facility])[address] [place] [id number] DIFFERENTIALon 65-96-2563FTTNQXHRE (10*3/UL) IN BLOOD BY CALCULATION 0.07 10*3/uLNormal0.00-0.20UnTriHealth Bethesda North HospitalComment on above: Performed By: #### [id number] ####[facility] ([facility])[address] [facility]BAYOKINDR[facility] [place] [place] [id number]/100 LEUKOCYTES IN BLOOD BY AUTOMATED COUNT0.5 % Normal0.0-1.0UnTriHealth Bethesda North HospitalComment on above:Performed By: #### [id number] ####[facility] ([facility])[address] [place] [address] EOSINOPHILS (10*3/UL) IN BLOOD BY CALCULATION0.28 10*3/uLNormal0.00-0.50 [facility] - WestComment on above:Performed By: #### [id number] ####[facility] ([facility])[address] ADEBAYOKETTER[facility] [place] [place] [id number]/100 LEUKOCYTES IN BLOOD BY AUTOMATED COUNT2.1 %Normal0.0-6.0UnTriHealth Bethesda North HospitalComment on above:Performed By: #### [id number] ####[facility] ([facility])[address] [place], [place] [address]HQEBTCFE GRANULOCYTES (10*3/UL) IN BLOOD BY CALCULATION0.15 10*3/uLNormal0.00-0.20UnTriHealth Bethesda North HospitalComment on above:Performed By: #### [id number] ####[facility] ([facility])[address] [place], [place] [address]ANJHIGYZ GRANULOCYTES/100 LEUKOCYTES IN BLOOD BY AUTOMATED COUNT1.1 %High0.0-1.0Un[facility] Comment on above:Performed By: #### [id number] ####[facility] ([facility])[address] [place] [address]GYRCTJIEEJR (10*3/UL) IN BLOOD BY CALCULATION2.40 10*3/uLNormal1.20-4.00UnTriHealth Bethesda North HospitalComment on above: Performed By: #### [id number] ####[facility] ([facility])[address] [place], [place] [address]VESTCZESOQB/100 LEUKOCYTES IN BLOOD BY AUTOMATED COUNT18.1 % Low20.0-45.0UnTriHealth Bethesda North HospitalComment on above:Performed By: #### [id number] ####[facility] ([facility])[address] [place] [address] MONOCYTES (10*3/UL) IN BLOOD BY CALCUATION1.59 10*3/uLHigh0.10-1.00UnTriHealth Bethes[facility] North HospitalComment on above:Performed By: #### [id number] ####[facility] ([facility])[address] [place], [place] [address]ESORCBCZQ/100 LEUKOCYTES IN BLOOD BY AUTOMATED COUNT12.0 %Normal5.0-12.0UnTriHealth Bethesda North HospitalComment on above:Performed By: #### [id number] ####[facility] ([facility])[address] [place], [place] [address]LEIJQDFMRKY (10*3/UL) IN BLOOD BY CALCULATION8.8 10*3/uLHigh1.6-7.6UnTriHealth Bethes[facility] North HospitalComment on above:Performed By: #### [id number] ####[facility] ([facility])[address] [place], [place] [address]XXTFLLSRFUY/100 LEUKOCYTES IN BLOOD BY AUTOMATED COUNT66.2 % Vovhch63.0-72.0UnTriHealth Bethesda North HospitalComment on above:Performed By: #### [id number] ####[facility] ([facility])[address] [place] [address] PHOSPHORUSon 09-84-3579Dvmavetux [Mass/Vol]3.0 mg/dLNormal2.5-5.0UnTriHealth Bethesda North HospitalComment on above:Performed By: #### [id number] ####[facility] ([facility])[address] [place] [id number] 74-76-354255Oubkxx [facility]30The patient is Moderately Stable - Low risk of patient condition declining or worsening The patient's goals for the shift include discharge The clinical goals for the shift include vss comfortNormalUniversity of Parkview Regional HospitalOuoxao39AxtdxpQjmamknqjg [facility] HospitalBASIC METABOLIC PANELon 77-79-5777Wdbra gap [Moles/Vol]11 mmol/LNormal7-20UnTriHealth Bethesda North HospitalComment on above:Performed By: #### [id number] ####[facility] ([facility])[address] [place] [address]Psxdvki [Mass/Vol]7.8 mg/dLLow8.6-10.3 [facility] - WestComment on above:Performed By: #### [id number] ####[facility] [place], [place] [address]Jaqaldza [Moles/Vol]103 mmol/PAcbgam77-701IgmgfufsqoTriHealth Bethesda North HospitalComment on above:Performed By: #### [id number] ####[facility] ([facility])[address] [place] [address]BA7 [Moles/Vol]25 mmol/EUwovky25-93JipoysnsrdTriHealth Bethesda North HospitalComment on above:Performed By: #### [id number] ####[facility] [place], [place] [address]Lkiycuhvrl [Mass/Vol]0.67 mg/dLLow 0.70-1.30UnTriHealth Bethesda North HospitalComment on above:Performed By: #### [id number] ####[facility] [place], [place] [address]FOKKATURRE FILTRATION RATE ML/MIN/1.73 SQ M.MFGQMSVSC86.8 mL/min/1.73m*2Normal>60.0 [facility] - WestComment on above:Result Comment: The [facility]???s estimated glomerular filtration rate (eG FR) will no longer include consideration of race [...] potential consequences that do not disproportionately affect anyone group of individuals. Performed By: #### [id number] ####[facility] ([facility])[address] [facility]ENICEMERC[facility] [place], [place] [address]Jjthqbh [Mass/Vol]98 mg/xPTznqkv95-158TuoailzztlTriHealth Bethesda North HospitalComment on above:Performed By: #### [id number] ####[facility] ([facility])[address] [facility] [place] [address]Qxweitebq [Moles/Vol]3.8 mmol/LNormal 3.5-5.1UnTriHealth Bethesda North HospitalComment on above:Performed By: #### [id number] ####[facility] ([facility])[address] NearWooADAMS COUNTY [facility] [place], [place] [address]Ccqkxh [Moles/Vol]135 mmol/LYhy626-383VyxflhbuuiTriHealth Bethesda North HospitalComment on above:Performed By: #### [id number] ####[facility] ([facility])[address] AVSolar Site DesignKINDRED HOS[place]ITAL [place], [place] [address]Anwn nitrogen [Mass/Vol]6 mg/dLLow7-25UnTriHealth Bethesda North HospitalComment on above:Performed By: #### [id number] ####[facility] ([facility])[address] AVMERCER COUNTY COMM[facility], [place] [address]ZROZ NITROGEN/CREATININE (MASS RATIO) IN SER/PLAS9.0NormalUniversVeterans Health AdministrationComment on above: Performed By: #### [id number] ####[facility] ([facility])[address] [place], [place] [address]JIBZ FLUID CULTUREon 45-18-0302Qxrozlzhnin+Clavulanate [Susc]>16/8 ResistantLake County Memorial Hospital - WestComment on above:Performed By: #### [id number] ####[facility] ([facility])[address] [place] [address] Ampicillin [Susc]>16ResistantLake County Memorial Hospital - WestComment on above:Performed By: #### [id number] ####[facility] ([facility])[address] [place], [place] [address]Jnizhnhjqf+Sulbactam [Susc]>16/8ResistantUnTriHealth Bethesda North HospitalComment on above:Performed By: #### [id number] ####[facility] ([facility])[address] [place], [place] [address]ilAUSzsgh [Susc]ResistantUnTriHealth Bethesda North HospitalComment on above:Performed By: #### [id number] ####[facility] ([facility])[address] [place], [place] [address]axcVZSCEkpx [Susc]<=1 SusceptibleUnTriHealth Bethesda North HospitalComment on above:Performed By: #### [id number] ####[facility] ([facility])[address] [place] [address] Ciprofloxacin [Susc]<=0.25SusceptibleUnTriHealth Bethesda North HospitalComment on above:Performed By: #### [id number] ####[facility] ([facility])[address] [place], [place] [address]Dvcoteasqh [Susc]<=2SusceptibleUnTriHealth Bethesda North HospitalComment on above:Performed By: #### [id number] ####[facility] ([facility])[address] [place], [place] [address]Iovrjdcuae [Susc]<=2Susceptible [facility] - WestComment on above:Performed By: #### [id number] ####[facility] ([facility])[address] [place], [place] [address]FVN WITH AUTO DIFFERENTIALon 13-32-6604Zfelswtntno distribution width (RBC) [Ratio]15.5 %High 11.5-15.0UnTriHealth Bethesda North HospitalComment on above:Performed By: #### [id number] ####[facility] ([facility])[address] [place] [id number] ERYTHROCYTE MEAN CORPUSCULAR HEMOGLOBIN CONCENTRATION (G/DL) BY CSXPOYNVX77.0 g/sQUlpokf27.0-35.0UnTriHealth Bethesda North HospitalComment on above:Performed By: #### [id number] ####[facility] ([facility])[address] [place] [id number] (Bld) [Volume fraction]25.6 %Low39.0-50.0UnTriHealth Bethesda North HospitalComment on above:Performed By: #### [id number] ####[facility] ([facility])[address] [place] [id number] (Bld) [Mass/Vol]8.7 g/dLLow 13.0-17.0UnTriHealth Bethesda North HospitalComment on above:Performed By: #### [id number] ####[facility] ([facility])[address] [place] [id number] (RBC) [Entitic mass]32.2 byAmrcwv82.0-33.0Un[facility] Hospital Comment on above:Performed By: #### [id number] ####[facility] ([facility])[address] [place] [id number] (RBC) [Entitic vol]94.8 iEEmjgcl41.0-98.0 [facility] - WestComment on above:Performed By: #### [id number] ####[facility] ([facility])[address] [place] [id number] (PER 100 WBCS) BY AUTOMATED COUNT0.0 %Xveftp8LtdmzwtdyiTriHealth Bethesda North HospitalComment on above:Performed By: #### [id number] ####[facility] ([facility])[address] FIOREKINDRED [facility] [place] [id number] (10*3/UL) IN BLOOD AUTOMATED [id number] 10*3/uLNormal 150-400UnTriHealth Bethesda North HospitalComment on above:Performed By: #### [id number] ####[facility] ([facility])[address] [place] [id number] (Bld) [#/Vol]2.70 10*6/uLLow4.20-5.70UnTriHealth Bethesda North HospitalComment on above:Performed By: #### [id number] ####[facility] ([facility])[address] ADEBAYOKINDRED [place] [id number] (Bld) [#/Vol]13.32 10*3/uLHigh4.00-10.60UnTriHealth Bethesda North HospitalComment on above:Performed By: #### [id number] ####[facility] ([facility])[address] [place], [place] [address]II GUIDED ABSCESS FLUID COLLECTION DRAINAGEon 17-92-4264KH GUIDED ABSCESS FLUID COLLECTION DRAINAGE Invalid Interpretation CodeUnTriHealth Bethesda North HospitalMAGNESIUMon 32-90-2629Fadhgbgko [Mass/Vol]1.9 mg/dLNormal1.9-2.7UnTriHealth Bethesda North HospitalComment on above:Performed By: #### [id number] ####[facility] ([facility])[address] FIOREKINDRED [facility] [place] [id number] 96-48-7520Hefcgbbwy [Mass/Vol]2.7 mg/dLNormal2.5-5.0UnTriHealth Bethesda North HospitalComment on above:Performed By: #### [id number] ####[facility] ([facility])[address] [place], [place] [address]DXEE MANUAL DIFFERENTIALon 76-73-7551BHGNTOCRPUZ (10*3/UL) IN BLOOD BY CALCULATION0.27 10*3/uLNormal0.00-0.50UnTriHealth Bethesda North HospitalComment on above:Order Comment: Normal Red Cell PopulationPerformed By: #### [id number] ####[facility] ([facility])[address] [place] [address] EOSINOPHILS/100 LEUKOCYTES IN BLOOD BY MANUAL COUNT2 %Normal0-6UnTriHealth Bethes[facility] North HospitalComment on above:Order Comment: Normal Red Cell Population Performed By: #### [id number] ####[facility] ([facility])[address] [place], [place] [address]IJZIENYETWI (10*3/UL) IN BLOOD BY CALCULATION2.13 10*3/uLNormal 1.20-4.00UnTri[facility] Bethes[facility] North HospitalComment on above:Order Comment: Normal Red Cell PopulationPerformed By: #### [id number] ####[facility] ([facility])[address] [place], [place] [address]LIYLJXZSKCI/100 LEUKOCYTES IN BLOOD BY MANUAL COUNT16 %Tjj80-71DpkkysnpsmTriHealth Bethesda North HospitalComment on above: Order Comment: Normal Red Cell PopulationPerformed By: #### [id number] ####[facility] ([facility])[address] [place], [place] [address]CVRVQJEQR (10*3/UL) IN BLOOD BY CALCUATION2.00 10*3/uLHigh0.10-1.00Un[facility] Comment on above:Order Comment: Normal Red Cell PopulationPerformed By: #### [id number] ####[facility] ([facility])[address] [place] [address] MONOCYTES/100 LEUKOCYTES IN BLOOD BY MANUAL COUNT15 %High5-12UnTriHealth Bethesda North HospitalComment on above:Order Comment: Normal Red Cell Population Performed By: #### [id number] ####[facility] ([facility])[address] [place], [place] [address]TEAOIFMSUND (10*3/UL) IN BLOOD BY CALCULATION8.9 10*3/uLHigh1.6-7.6 [facility] - WestComment on above:Order Comment: Normal Red Cell PopulationPerformed By: #### [id number] ####[facility] ([facility])[address] [place], [place] [address]RIKMFFPOAD NEUTROPHILS/100 LEUKOCYTES BY MANUAL COUNT67 %Oqvdeg18-66FuootkkqifTriHealth Bethesda North HospitalComment on above:Order Comment: Normal Red Cell PopulationPerformed By: #### [id number] ####[facility] ([facility])[address] [place] [id number] 73-88-589211DbwrofKcbdsvggyj of [place] [facility] Qpqyal45DidcwwAsjtujbfejVeterans Health AdministrationBASIC METABOLIC PANELon 76-53-1122Mxouw gap [Moles/Vol]10 mmol/LNormal7-20UnTriHealth Bethesda North HospitalComment on above:Performed By: #### [id number] ####[facility] ([facility])[address] [place] [address]Ayxfijq [Mass/Vol]8.0 mg/dLLow8.6-10.3UnTriHealth Bethesda North HospitalComment on above:Performed By: #### [id number] ####[facility] ([facility])[address] [place] [address] Chloride [Moles/Vol]101 mmol/WIvzadz70-251YbbehxyswsTriHealth Bethesda North Hospital Comment on above:Performed By: #### [id number] ####[facility] ([facility])[address] [place] [address]RG5 [Moles/Vol]28 mmol/FXrzcvb80-77ZkbrztdjfbTriHealth Bethesda North HospitalComment on above:Performed By: #### [id number] ####[facility] ([facility])[address] [place] [address]Bcbbyplfsh [Mass/Vol]0.65 mg/dL Low0.70-1.30UnTriHealth Bethesda North HospitalComment on above:Performed By: #### [id number] ####[facility] ([facility])[address] [place] [address] GLOMERULAR FILTRATION RATE ML/MIN/1.73 SQ M.PEYCDLRBU43.7 mL/min/1.73m*2Normal >60.0UnTriHealth Bethesda North HospitalComment on above:Result Comment: [facility]???s estimated glomerular filtration rate (eG FR) will no longer include consideration of race [...] potential consequences that do not disproportionately affect anyone group of individuals. Performed By: #### [id number] ####[facility] ([facility])[address] [place], [place] [id number] [Mass/Vol]95 mg/uWSnpsdx51-068GlfwrquznmTriHealth Bethesda North HospitalComment on above:Performed By: #### [id number] ####[facility] ([facility])[address] [place], [place] [address]Rccnjjkec [Moles/Vol]3.6 mmol/LNormal 3.5-5.1UnTriHealth Bethesda North HospitalComment on above:Performed By: #### [id number] ####[facility] ([facility])[address] [place], [place] [address]Hekfpc [Moles/Vol]135 mmol/XYge367-852WvpxwdhslgTriHealth Bethesda North HospitalComment on above:Performed By: #### [id number] ####[facility] ([facility])[address] [place], [place] [id number] nitrogen [Mass/Vol]6 mg/dLLow7-25UnTriHealth Bethesda North HospitalComment on above:Performed By: #### [id number] ####[facility] ([facility])[address] [place], [place] [address]ONRP NITROGEN/CREATININE (MASS RATIO) IN SER/PLAS9.2NormalUnTriHealth Bethesda North HospitalComment on above: Performed By: #### [id number] ####[facility] ([facility])[address] [place], [place] [address]CMJ WITH AUTO DIFFERENTIALon 33-25-4212Xuwskjpuemm distribution width (RBC) [Ratio]15.3 %High11.5-15.0UnTriHealth Bethesda North HospitalComment on above:Performed By: #### [id number] ####[facility] ([facility])[address] [place] [id number] MEAN CORPUSCULAR HEMOGLOBIN CONCENTRATION (G/DL) BY LAXRITCYQ37.8 g/aFZgttyy61.0-35.0UnTriHealth Bethesda North HospitalComment on above:Performed By: #### [id number] ####[facility] ([facility])[address] [place] [address]Kfxvzbgiyg (Bld) [Volume fraction]26.9 %Low39.0-50.0 [facility] - WestComment on above:Performed By: #### [id number] ####[facility] ([facility])[address] [place] [id number] (Bld) [Mass/Vol]9.1 g/dLLow13.0-17.0UnTriHealth Bethesda North HospitalComment on above:Performed By: #### [id number] ####[facility] ([facility])[address] [place] [id number] (RBC) [Entitic mass]31.0 utRrubut88.0-33.0UnTriHealth Bethesda North HospitalComment on above:Performed By: #### [id number] ####[facility] ([facility])[address] [place] [address]QZG (RBC) [Entitic vol] 91.5 xUEwkidy86.0-98.0UnTriHealth Bethesda North HospitalComment on above: Performed By: #### [id number] ####[facility] ([facility])[address] [place] [id number] (PER 100 WBCS) BY AUTOMATED COUNT0.0 %Bgasik1SosrsuxuwzTriHealth Bethesda North HospitalComment on above:Performed By: #### [id number] ####[facility] ([facility])[address] [place] [id number] (10*3/UL) IN BLOOD AUTOMATED [id number] 10*3/dMFxwcpt687-030WrwvmvietzTriHealth Bethesda North Hospital Comment on above:Performed By: #### [id number] ####[facility] ([facility])[address] [place] [id number] (Bld) [#/Vol]2.94 10*6/uLLow4.20-5.70UnTriHealth Bethesda North HospitalComment on above:Performed By: #### [id number] ####[facility] ([facility])[address] [place] [id number] (Bld) [#/Vol]14.66 10*3/uLHigh4.00-10.60UnTriHealth Bethesda North HospitalComment on above: Performed By: #### [id number] ####[facility] ([facility])[address] [place] [id number] 38-97-8979Kixxekvmw [Mass/Vol]1.8 mg/dLLow1.9-2.7 [facility] WestComment on above:Performed By: #### [id number] ####[facility] ([facility])[address] [place] [id number] DIFFERENTIALon 79-21-0158BXFNBIZNO (10*3/UL) IN BLOOD BY CALCULATION0.07 10*3/uL Normal0.00-0.20UnTriHealth Bethesda North HospitalComment on above:Performed By: #### [id number] ####[facility] ([facility])[address] [place] [id number] BASOPHILS/100 LEUKOCYTES IN BLOOD BY AUTOMATED COUNT0.5 %Normal0.0-1.0UnTriHealth Bethesda North HospitalComment on above:Performed By: #### [id number] ####[facility] ([facility])[address] [place] [id number] (10*3/UL) IN BLOOD BY CALCULATION0.29 10*3/uLNormal0.00-0.50UnTriHealth Bethesda North HospitalComment on above:Performed By: #### [id number] ####[facility] ([facility])[address] [place] [id number]/100 LEUKOCYTES IN BLOOD BY AUTOMATED COUNT2.0 %Normal0.0-6.0UnTriHealth Bethesda North HospitalComment on above:Performed By: #### [id number] ####[facility] ([facility])[address] [place] [id number] GRANULOCYTES (10*3/UL) IN BLOOD BY CALCULATION0.16 10*3/uLNormal0.00-0.20UnTriHealth Bethes[facility] North HospitalComment on above: Performed By: #### [id number] ####[facility] ([facility])[address] [place], [place] [address]IUYPJYJZ GRANULOCYTES/100 LEUKOCYTES IN BLOOD BY AUTOMATED COUNT1.1 %High0.0-1.0UnTriHealth Bethesda North HospitalComment on above: Performed By: #### [id number] ####[facility] ([facility])[address] [place], [place] [address]LAHEJQRFGVW (10*3/UL) IN BLOOD BY CALCULATION2.62 10*3/uL Normal1.20-4.00UnTriHealth Bethesda North HospitalComment on above:Performed By: #### [id number] ####[facility] ([facility])[address] [place] [address] LYMPHOCYTES/100 LEUKOCYTES IN BLOOD BY AUTOMATED COUNT17.9 %Low20.0-45.0 [facility] - WestComment on above:Performed By: #### [id number] ####[facility] ([facility])[address] [place], [place] [address]LVAGUBJMA (10*3/UL) IN BLOOD BY CALCUATION1.57 10*3/uLHigh0.10-1.00UnTriHealth Bethesda North HospitalComment on above:Performed By: #### [id number] ####[facility] ([facility])[address] [place], [place] [address]FJDAFLGND/100 LEUKOCYTES IN BLOOD BY AUTOMATED COUNT10.7 %Normal5.0-12.0UnTriHealth Bethesda North HospitalComment on above:Performed By: #### [id number] ####[facility] ([facility])[address] [place], [place] [address]GDYKJECGYMH (10*3/UL) IN BLOOD BY CALCULATION9.9 10*3/uLHigh 1.6-7.6UnTriHealth Bethesda North HospitalComment on above:Performed By: #### [id number] ####[facility] ([facility])[address] [place] [address] NEUTROPHILS/100 LEUKOCYTES IN BLOOD BY AUTOMATED COUNT67.8 %Qsquqt93.0-72.0 [facility] - WestComment on above:Performed By: #### [id number] ####[facility] ([facility])[address] [place] [address]ZZXPAVOOSOtt 03-42-8500Xmnezypzt [Mass/Vol]2.4 mg/dLLow2.5-5.0UnTriHealth Bethesda North HospitalComment on above:Performed By: #### [id number] ####[facility] ([facility])[address] [place] [address]24aw 41-19-129102NkimzaKfidhxocke of [place] Medical CenterBASIC METABOLIC PANELon 79-68-7458Jnjzr gap [Moles/Vol]11 mmol/LNormal7-20UnTriHealth Bethesda North HospitalComment on above:Performed By: #### [id number] ####[facility] ([facility])[address] [place] [address] Calcium [Mass/Vol]7.7 mg/dLLow8.6-10.3UnTriHealth Bethesda North HospitalComment on above:Performed By: #### [id number] ####[facility] ([facility])[address] [place], [place] [address]Uzkaujpi [Moles/Vol]100 mmol/SJrwpeu98-959RltnvikdogTriHealth Bethesda North HospitalComment on above:Performed By: #### [id number] ####[facility] ([facility])[address] [place], [place] [address]NI7 [Moles/Vol]28 mmol/LNormal 21-31UnTriHealth Bethesda North HospitalComment on above:Performed By: #### [id number] ####[facility] ([facility])[address] [place], [place] [address]Xdxktqiuoc [Mass/Vol]0.67 mg/dLLow0.70-1.30UnTriHealth Bethesda North HospitalComment on above:Performed By: #### [id number] ####[facility] ([facility])[address] [place] [id number] FILTRATION RATE ML/MIN/1.73 SQ M.WPIQWRQBM42.8 mL/min/1.73m*2Normal>60.0UnTriHealth Bethesda North HospitalComment on above: Result Comment: [facility]???s estimated glomerular filtration rate (eGFR) will no [...] potential consequences that do not disproportionately affect anyone group of individuals.Performed By: #### [id number] ####[facility] ([facility])[address] [place], [place] [id number] [Mass/Vol]89 mg/oZEzbnuc64-050BfssaifhcrTriHealth Bethesda North HospitalComment on above:Performed By: #### [id number] ####[facility] ([facility])[address] [place] [id number] [Moles/Vol]3.5 mmol/LNormal3.5-5.1UnTriHealth Bethesda North HospitalComment on above:Performed By: #### [id number] ####[facility] ([facility])[address] [place] [address] Sodium [Moles/Vol]135 mmol/VAte634-752StmtnhhhyzTriHealth Bethesda North HospitalComment on above:Performed By: #### [id number] ####[facility] ([facility])[address] [place], [place] [address]Qqvw nitrogen [Mass/Vol]6 mg/dLLow7-25UnTriHealth Bethes[facility] North HospitalComment on above:Performed By: #### [id number] ####[facility] [place] [id number] NITROGEN/CREATININE (MASS RATIO) IN SER/PLAS9.0NormalUniBellevue HospitalComment on above: Performed By: #### [id number] ####[facility] [place] [address]FHEVH CULTUREon 14-31-7069Qwymrbgq identified Cx Nom (Bld)No growth at 5 daysNormalUniBellevue HospitalComment on above:Order Comment: From a different site than #1.Performed By: #### [id number] ####[facility] ([facility])[address] [place] [id number] WITH AUTO DIFFERENTIALon 64-30-3006Qajnpeyhufw distribution width (RBC) [Ratio]15.2 %High11.5-15.0 [facility] - WestComment on above:Performed By: #### [id number] ####[facility] ([facility])[address] [place] [id number] MEAN CORPUSCULAR HEMOGLOBIN CONCENTRATION (G/DL) BY SSTVCCAUM44.9 g/dLNormal 32.0-35.0UnTriHealth Bethesda North HospitalComment on above:Performed By: #### [id number] ####[facility] ([facility])[address] [place] [id number] Hematocrit (Bld) [Volume fraction]25.4 %Low39.0-50.0UnTriHealth Bethesda North HospitalComment on above:Performed By: #### [id number] ####[facility] ([facility])[address] [place], [place] [address]Sgznoxbkza (Bld) [Mass/Vol]8.6 g/dLLow 13.0-17.0UnTriHealth Bethesda North HospitalComment on above:Performed By: #### [id number] ####[facility] [place], [place] [id number] (RBC) [Entitic mass]30.8 lxFofcvr74.0-33.0Un[facility] Hospital Comment on above:Performed By: #### [id number] ####[facility] [place] [id number] (RBC) [Entitic vol]91.0 pNOslkdl51.0-98.0 [facility] - WestComment on above:Performed By: #### [id number] ####[facility] ([facility])[address] [place] [id number] (PER 100 WBCS) BY AUTOMATED COUNT0.0 %Pwibye9XfhrmxbafbTriHealth Bethesda North HospitalComment on above:Performed By: #### [id number] ####[facility] ([facility])[address] [place] [id number] (10*3/UL) IN BLOOD AUTOMATED [id number] 10*3/uLNormal 150-400UnTriHealth Bethesda North HospitalComment on above:Performed By: #### [id number] ####[facility] ([facility])[address] [place] [id number] (Bld) [#/Vol]2.79 10*6/uLLow4.20-5.70UnTriHealth Bethesda North HospitalComment on above:Performed By: #### [id number] ####[facility] ([facility])[address] [place] [id number] (Bld) [#/Vol]15.82 10*3/uLHigh4.00-10.60UnTriHealth Bethesda North HospitalComment on above:Performed By: #### [id number] ####[facility] ([facility])[address] [place] [id number] ABDOMEN PELVIS W IV CONTRASTon 15-90-9936TE ABDOMEN PELVIS W IV CONTRASTInvalid Interpretation Code [facility] - WestLACTIC ACID WITH 4 HOUR REFLEXon 05-26-2025 LACTATE (MMOL/L) IN SER/PLAS0.9 mmol/LNormal0.5-2.2UnTriHealth Bethesda North HospitalComment on above:Performed By: #### [id number] ####[facility] ([facility])[address] [place] [id number] 26-42-8925Akrifkyxp [Mass/Vol]1.8 mg/dLLow1.9-2.7UnTriHealth Bethesda North HospitalComment on above:Performed By: #### [id number] ####[facility] ([facility])[address] [place] [id number] DIFFERENTIALon 54-56-4547FCPTGDBLA (10*3/UL) IN BLOOD BY CALCULATION0.11 10*3/uLNormal0.00-0.20Un[facility] Comment on above:Performed By: #### [id number] ####[facility] ([facility])[address] [place] [id number]/100 LEUKOCYTES IN BLOOD BY AUTOMATED COUNT0.7 %Normal0.0-1.0UnTriHealth Bethesda North HospitalComment on above: Performed By: #### [id number] ####[facility] ([facility])[address] [place] [id number] (10*3/UL) IN BLOOD BY CALCULATION0.21 10*3/uL Normal0.00-0.50UnTriHealth Bethesda North HospitalComment on above:Performed By: #### [id number] ####[facility] ([facility])[address] [place] [id number] EOSINOPHILS/100 LEUKOCYTES IN BLOOD BY AUTOMATED COUNT1.3 %Normal0.0-6.0 [facility] - WestComment on above:Performed By: #### [id number] ####[facility] ([facility])[address] [place] [id number] GRANULOCYTES (10*3/UL) IN BLOOD BY CALCULATION0.21 10*3/uLHigh0.00-0.20 [facility] - WestComment on above:Performed By: #### [id number] ####[facility] ([facility])[address] [place] [id number] GRANULOCYTES/100 LEUKOCYTES IN BLOOD BY AUTOMATED COUNT1.3 %High0.0-1.0 [facility] - WestComment on above:Performed By: #### [id number] ####[facility] ([facility])[address] [place], [place] [address]CAPNACRQSBG (10*3/UL) IN BLOOD BY CALCULATION2.12 10*3/uLNormal1.20-4.00[facility] - WestComment on above:Performed By: #### [id number] ####[facility] ([facility])[address] [place], [place] [address]SCUOGHLOBHT/100 LEUKOCYTES IN BLOOD BY AUTOMATED COUNT13.4 %Low20.0-45.0UnTriHealth Bethesda North HospitalComment on above:Performed By: #### [id number] ####[facility] ([facility])[address] [place], [place] [address]DAPATMAAS (10*3/UL) IN BLOOD BY CALCUATION0.85 10*3/uLNormal 0.10-1.00UnTriHealth Bethesda North HospitalComment on above:Performed By: #### [id number] ####[facility] ([facility])[address] [place] [address] MONOCYTES/100 LEUKOCYTES IN BLOOD BY AUTOMATED COUNT5.4 %Normal5.0-12.0 [facility] - WestComhelen newberry joy hospital on above:Performed By: #### [id number] ####[facility] ([facility])[address] [place], [place] [address]LAYCTPLNXVE (10*3/UL) IN BLOOD BY DJJDUXLJXBP03.5 10*3/uLHigh1.6-7.6UnTriHealth Bethesda North HospitalComment on above:Performed By: #### [id number] ####[facility] ([facility])[address] [place], [place] [address]EYLRHKCDIIN/100 LEUKOCYTES IN BLOOD BY AUTOMATED COUNT79.2 %High40.0-72.0[facility] - WestComment on above:Performed By: #### [id number] ####[facility] ([facility])[address] [place], [place] [address]CHFJCU CELLS/100 LEUKOCYTES IN BLOOD0 %Maitkp0OqkbzvokovTriHealth Bethesda North HospitalComment on above:Performed By: #### [id number] ####[facility] ([facility])[address] [place], [place] [address]AYLTMOFET GIANT PRESENCE IN BLOOD BY LIGHT MICROSCOPYPresentNormalUniversVeterans Health Administration Comment on above:Performed By: #### [id number] ####[facility] ([facility])[address] [place] [address]OODEDXC LYMPHOCYTES (10*3/UL) IN BLOOD BY CALCULATION0.00 10*3/uLNormal0.00UnTriHealth Bethesda North HospitalComment on above:Performed By: #### [id number] ####[facility] ([facility])[address] [place] [address]RFEHTBX LYMPHOCYTES/100 LEUKOCYTES IN BLOOD CELLAVISION0.0 % Normal0.0-0.0UnTriHealth Bethesda North HospitalComment on above:Performed By: #### [id number] ####[facility] ([facility])[address] [place] [address] PHOSPHORUSon 19-83-7241Avvwfxdrv [Mass/Vol]2.5 mg/dLNormal2.5-5.0UnTriHealth Bethesda North HospitalComment on above:Performed By: #### [id number] ####[facility] ([facility])[address] [place], [place] [address]DTDTD METABOLIC PANELon 12-31-1012Mutcm gap [Moles/Vol]11 mmol/LNormal7-20UnTriHealth Bethesda North HospitalComment on above:Performed By: #### [id number] ####[facility] ([facility])[address] [place], [place] [address]Wfjqkms [Mass/Vol]7.7 mg/dLLow8.6-10.3 [facility] - WestComment on above:Performed By: #### [id number] ####[facility] ([facility])[address] [place], [place] [address]Fyhwjeez [Moles/Vol]101 mmol/ZIibonr40-240Qlglfarnss of Farnsworth Medical CenterComment on above:Performed By: #### [id number] ####[facility] ([facility])[address] [place] [address]MG9 [Moles/Vol]28 mmol/BYwqmjf57-66DxsfenwczgTriHealth Bethesda North HospitalComment on above:Performed By: #### [id number] ####[facility] ([facility])[address] [place] [address]Rimvqbojtg [Mass/Vol]0.74 mg/dLNormal 0.70-1.30UnTriHealth Bethesda North HospitalComment on above:Performed By: #### [id number] ####[facility] ([facility])[address] [place], [place] [id number] FILTRATION RATE ML/MIN/1.73 SQ M.CMPTRURVQ22.9 mL/min/1.73m*2Normal>60.0 [facility] - WestComment on above:Result Comment: [facility]???s estimated glomerular filtration rate (eG FR) will no longer include consideration of race [...] potential consequences that do not disproportionately affect anyone group of individuals. Performed By: #### [id number] ####[facility] ([facility])[address] [place], [place] [address]Thuvhec [Mass/Vol]94 mg/dUUinkkf89-401AmtohrkkdkTriHealth Bethesda North HospitalComment on above:Performed By: #### [id number] ####[facility] ([facility])[address] [place], [place] [address]Tyocjjqqf [Moles/Vol]3.5 mmol/LNormal 3.5-5.1UnTriHealth Bethesda North HospitalComment on above:Performed By: #### [id number] ####[facility] ([facility])[address] [place], [place] [address]Uapviq [Moles/Vol]136 mmol/GQszicq078-267AasaieydiwTriHealth Bethesda North HospitalComment on above:Performed By: #### [id number] ####[facility] ([facility])[address] [place] [address]Jweg nitrogen [Mass/Vol]8 mg/dLNormal7-25UnTriHealth Bethesda North HospitalComment on above:Performed By: #### [id number] ####[facility] ([facility])[address] [place] [address]XQVK NITROGEN/CREATININE (MASS RATIO) IN SER/PLAS10.8NormalUniversVeterans Health AdministrationComment on above: Performed By: #### [id number] ####[facility] ([facility])[address] [place] [address]QUB WITH AUTO DIFFERENTIALon 21-91-4513Ohchlpkinql distribution width (RBC) [Ratio]15.1 %High11.5-15.0UnTriHealth Bethesda North HospitalComment on above:Performed By: #### [id number] ####[facility] ([facility])[address] [address]DDDFAXYPUUO MEAN CORPUSCULAR HEMOGLOBIN CONCENTRATION (G/DL) BY JKSXZDNUO14.5 g/yDDobbfp46.0-35.0UnTriHealth Bethesda North HospitalComment on above:Performed By: #### [id number] ####[facility] ([facility])[address] [place] [address]Nujjfkebrn (Bld) [Volume fraction]26.7 %Low39.0-50.0 [facility] - WestComment on above:Performed By: #### [id number] ####[facility] ([facility])[address] [address]Rzwjdkrpkz (Bld) [Mass/Vol]9.2 g/dLLow13.0-17.0UnTriHealth Bethes[facility] North HospitalComment on above:Performed By: #### [id number] ####[facility] ([facility])[address], [place] [address]ZFB (RBC) [Entitic mass]31.4 qbDrrzrj80.0-33.0UnTriHealth Bethes[facility] North HospitalComment on above:Performed By: #### [id number] ####[facility] ([facility])[address] [place] [id number] (RBC) [Entitic vol] 91.1 eYUjkake80.0-98.0UnTriHealth Bethesda North HospitalComment on above: Performed By: #### [id number] ####[facility] ([facility])[address] [place] [id number] (PER 100 WBCS) BY AUTOMATED COUNT0.0 %Ywkdlw4FsicfwznvbTriHealth Bethesda North HospitalComment on above:Performed By: #### [id number] ####[facility] ([facility])[address] [place] [id number] (10*3/UL) IN BLOOD AUTOMATED [id number] 10*3/aUXeeivj898-857SfcehoitbhTriHealth Bethesda North Hospital Comment on above:Performed By: #### [id number] ####[facility] ([facility])[address] [place] [id number] (Bld) [#/Vol]2.93 10*6/uLLow4.20-5.70UnTriHealth Bethesda North HospitalComment on above:Performed By: #### [id number] ####[facility] [facility] ([facility])[address] [place] [id number] (Bld) [#/Vol]18.52 10*3/uLHigh4.00-10.60UnTriHealth Bethesda North HospitalComment on above: Performed By: #### [id number] ####[facility] ([facility])[address] [place] [id number] 54-72-7306Nlzqisrsj [Mass/Vol]1.8 mg/dLLow1.9-2.7 [facility] - WestComment on above:Performed By: #### [id number] ####[facility] ([facility])[address] [place] [id number] DIFFERENTIALon 23-88-3938LKAVRKQWN (10*3/UL) IN BLOOD BY CALCULATION0.06 10*3/uL Normal0.00-0.20UnTriHealth Bethesda North HospitalComment on above:Performed By: #### [id number] ####[facility] ([facility])[address] [place] [id number] BASOPHILS/100 LEUKOCYTES IN BLOOD BY AUTOMATED COUNT0.3 %Normal0.0-1.0UnTriHealth Bethesda North HospitalComment on above:Performed By: #### [id number] ####[facility] ([facility])[address] [facility] [place] [id number] (10*3/UL) IN BLOOD BY CALCULATION0.33 10*3/uLNormal0.00-0.50UnTriHealth Bethesda North HospitalComment on above:Performed By: #### [id number] ####[facility] ([facility])[address] [facility] [place], [place] [id number]/100 LEUKOCYTES IN BLOOD BY AUTOMATED COUNT1.8 %Normal0.0-6.0UnTriHealth Bethesda North HospitalComment on above:Performed By: #### [id number] ####[facility] ([facility])[address], [place] [id number] GRANULOCYTES (10*3/UL) IN BLOOD BY CALCULATION0.20 10*3/uLNormal0.00-0.20UnTriHealth Bethes[facility] North HospitalComment on above: Performed By: #### [id number] ####[facility] ([facility])[address] [facility]BA[facility] [place] [id number] GRANULOCYTES/100 LEUKOCYTES IN BLOOD BY AUTOMATED COUNT1.1 %High0.0-1.0UnTriHealth Bethesda North HospitalComment on above: Performed By: #### [id number] ####[facility] ([facility])[address], [place] [id number] (10*3/UL) IN BLOOD BY CALCULATION3.30 10*3/uL Normal1.20-4.00UnTriHealth Bethesda North HospitalComment on above:Performed By: #### [id number] ####[facility] ([facility])[address] [place] [id number] LYMPHOCYTES/100 LEUKOCYTES IN BLOOD BY AUTOMATED COUNT17.8 %Low20.0-45.0 [facility] - WestComment on above:Performed By: #### [id number] ####[facility] ([facility])[address] [id number] (10*3/UL) IN BLOOD BY CALCUATION1.87 10*3/uLHigh0.10-1.00UnTriHealth Bethesda North HospitalComment on above:Performed By: #### [id number] ####[facility] ([facility])[address] [address]RLYPEVIZV/100 LEUKOCYTES IN BLOOD BY AUTOMATED COUNT10.1 %Normal5.0-12.0UnTriHealth Bethesda North HospitalComment on above:Performed By: #### [id number] ####[facility] ([facility])[address] [place] [id number] (10*3/UL) IN BLOOD BY JDKMZAFPFFA09.8 10*3/uLHigh 1.6-7.6UnTriHealth Bethesda North HospitalComment on above:Performed By: #### [id number] ####[facility] ([facility])[address] [address] NEUTROPHILS/100 LEUKOCYTES IN BLOOD BY AUTOMATED COUNT68.9 %Iprjxr03.0-72.0 [facility] - WestComment on above:Performed By: #### [id number] ####[facility] ([facility])[address], [place] [id number] 50-34-1486Miktmcvsc [Mass/Vol]2.3 mg/dLLow2.5-5.0UnTriHealth Bethesda North HospitalComment on above:Performed By: #### [id number] ####[facility] ([facility])[address] [place] [id number] GLUCOSE METER UNSOLICITED RESULTS on 18-33-9961Jzsrmgt [Mass/Vol]132 mg/uRHpws58-247UdkxhpclucTriHealth Bethesda North HospitalComment on above:Order Comment: Waived Testing in the ED is performed under the ED CLIA certificate #[id number].Result Comment: srabeePerformed By: #### [id number] ####[facility] ([facility])[address] [place], [place] [id number] on 42-53-180734Lgf patient is Moderately Stable - Low risk of patient condition declining or worsening The patient's goals for the shift include comfort The clinical goals for the shift include stbale vitals, comfortNormalUniversity of Parkview Regional HospitalSexoby84NrxaihKhftwtrplu [facility] Regional HospitalBASIC METABOLIC PANELon 90-69-7912Hltjp gap [Moles/Vol]9 mmol/LNormal7-20UnTriHealth Bethesda North HospitalComment on above:Performed By: #### [id number] ####[facility] ([facility])[address] [place], [place] [address]Szmudgt [Mass/Vol]7.7 mg/dLLow8.6-10.3UnTriHealth Bethes[facility] North HospitalComment on above:Performed By: #### [id number] ####[facility] ([facility])[address] [place] [address] Chloride [Moles/Vol]101 mmol/EPpxcba38-204LcibyzzvqfTriHealth Bethesda North Hospital Comment on above:Performed By: #### [id number] ####[facility] ([facility])[address] [place], [place] [address]UN8 [Moles/Vol]31 mmol/NKwitxx06-69PnqxejpfdkTriHealth Bethesda North HospitalComment on above:Performed By: #### [id number] ####[facility] ([facility])[address] [place], [place] [address]Hqsgxfjxii [Mass/Vol]0.86 mg/dL Normal0.70-1.30UnTriHealth Bethes[facility] North HospitalComment on above:Performed By: #### [id number] ####[facility] ([facility])[address] [place] [address] GLOMERULAR FILTRATION RATE ML/MIN/1.73 SQ M.FZIFYMMIO96.7 mL/min/1.73m*2Normal >60.0UnTriHealth Bethesda North HospitalComment on above:Result Comment: [facility]???s estimated glomerular filtration rate (eG FR) will no longer include consideration of race [...] potential consequences that do not disproportionately affect anyone group of individuals. Performed By: #### [id number] ####[facility] ([facility])[address] [place], [place] [address]Eoobplf [Mass/Vol]97 mg/qSFuvmbs64-517RuvtmwwxnwTriHealth Bethesda North HospitalComment on above:Performed By: #### [id number] ####[facility] ([facility])[address] [place], [place] [address]Clkhanqkm [Moles/Vol]3.1 mmol/LLow 3.5-5.1UnTriHealth Bethes[facility] North HospitalComment on above:Performed By: #### [id number] ####[facility] ([facility])[address] [place], [place] [address]Pwnksf [Moles/Vol]138 mmol/KVlhxsr901-177NesdignenpTriHealth Bethesda North HospitalComment on above:Performed By: #### [id number] ####[facility] ([facility])[address] [place], [place] [address]Vlwl nitrogen [Mass/Vol]12 mg/dLNormal7-25UnTriHealth Bethes[facility] North HospitalComment on above:Performed By: #### [id number] ####[facility] ([facility])[address] [place], [place] [address]WIVX NITROGEN/CREATININE (MASS RATIO) IN SER/PLAS14.0NormalUniversVeterans Health AdministrationComment on above: Performed By: #### [id number] ####[facility] ([facility])[address] [place], [place] [address]ZIU WITH AUTO DIFFERENTIALon 33-02-1589Aipldfkdh (Bld) [#/Vol]0.03 10*3/uLNormal0.00-0.20UnTriHealth Bethes[facility] North HospitalComment on above: Performed By: #### [id number] ####[facility] ([facility])[address], [place] [id number]/100 WBC (Bld)0.2 %Normal0.0-1.0UnTriHealth Bethesda North HospitalComment on above:Performed By: #### [id number] ####[facility] ([facility])[address], [place] [id number] (Bld) [#/Vol]0.45 10*3/uL Normal0.00-0.50UnTriHealth Bethes[facility] North HospitalComment on above:Performed By: #### [id number] ####[facility] ([facility])[address] [place] [id number] Eosinophils/100 WBC (Bld)2.9 %Normal0.0-6.0Un[facility] Comment on above:Performed By: #### [id number] ####[facility] ([facility])[address], [place] [id number] distribution width (RBC) [Ratio]15.6 % High11.5-15.0UnTriHealth Bethesda North HospitalComment on above:Performed By: #### [id number] ####[facility] ([facility])[address] [place] [id number] ERYTHROCYTE MEAN CORPUSCULAR HEMOGLOBIN CONCENTRATION (G/DL) BY MYTIZJMCQ96.9 g/jPMiovhn93.0-35.0UnTriHealth Bethesda North HospitalComment on above:Performed By: #### [id number] ####[facility] ([facility])[address], [place] [id number] (Bld) [Volume fraction]25.2 %Low39.0-50.0UnTriHealth Bethesda North HospitalComment on above:Performed By: #### [id number] ####[facility], [place] [id number] (Bld) [Mass/Vol]8.3 g/dLLow 13.0-17.0UnTriHealth Bethes[facility] North HospitalComment on above:Performed By: #### [id number] ####[facility] ([facility])[address] [place] [place], [place] [address]Gikxrlub granulocytes (Bld) [#/Vol]0.24 10*3/uLHigh0.00-0.20UnTriHealth Bethes[facility] North HospitalComment on above:Performed By: #### [id number] ####[facility] ([facility])[address] [place], [place] [address]Scdvwnrw granulocytes/100 WBC (Bld)1.5 %High0.0-1.0UnTriHealth Bethesda North HospitalComment on above:Performed By: #### [id number] ####[facility] ([facility])[address] [facility] [place] [id number] Lymphocytes (Bld) [#/Vol]2.38 10*3/uLNormal1.20-4.00UnTriHealth Bethes[facility] North HospitalComment on above:Performed By: #### [id number] ####[facility] ([facility])[address] [place], [place] [address]Czgwwaucwtc/100 WBC (Bld)15.3 %Low 20.0-45.0UnTriHealth Bethesda North HospitalComment on above:Performed By: #### [id number] ####[facility] ([facility])[address] [place] [place], [place] [address]TWF (RBC) [Entitic mass]30.5 lxAukjer19.0-33.0Un[facility] Comment on above:Performed By: #### [id number] ####[facility] ([facility])[address] [place] [id number] (RBC) [Entitic vol]92.6 eFNosjnb93.0-98.0 [facility] - WestComment on above:Performed By: #### [id number] ####[facility] [place] [id number] (Bld) [#/Vol]1.43 10*3/uLHigh0.10-1.00UnTriHealth Bethes[facility] North HospitalComment on above:Performed By: #### [id number] ####[facility] ([facility])[address] [address]Dxqwalxrk/100 WBC (Bld)9.2 %Normal5.0-12.0UnTriHealth Bethes[facility] North HospitalComment on above:Performed By: #### [id number] ####[facility] ([facility])[address] [place] [id number] (Bld) [#/Vol] 10.98 10*3/uLHigh1.60-7.60UnTriHealth [facility]hes[facility] North HospitalComment on above: Performed By: #### [id number] ####[facility] ([facility])[address] [place] [id number]/100 WBC (Bld)70.9 %Bzedgu87.0-72.0UnTriHealth Bethesda North HospitalComment on above:Performed By: #### [id number] ####[facility] ([facility])[address] [place] [id number] (PER 100 WBCS) BY AUTOMATED COUNT0.0 %Knycij2SsbgcukokwTriHealth Bethesda North HospitalComment on above: Performed By: #### [id number] ####[facility] ([facility])[address] [place] [id number] (10*3/UL) IN BLOOD AUTOMATED [id number] 10*3/uLNormal 150-400UnTriHealth Bethesda North HospitalComment on above:Performed By: #### [id number] ####[facility] ([facility])[address] [place] [id number] (Bld) [#/Vol]2.72 10*6/uLLow4.20-5.70UnTriHealth Bethesda North HospitalComment on above:Performed By: #### [id number] ####[facility] ([facility])[address] [place] [address]FJY (Bld) [#/Vol]15.51 10*3/uLHigh4.00-10.60UnTriHealth Bethes[facility] North HospitalComment on above:Performed By: #### [id number] ####[facility] ([facility])[address] [place] [address]WEJAWEOOBag 05-24-2025 Magnesium [Mass/Vol]1.8 mg/dLLow1.9-2.7Un[facility] Comment on above:Performed By: #### [id number] ####[facility] ([facility])[address] [place] [address]PSPWXUWPEApu 60-85-4629Ugakhwndf [Mass/Vol]2.7 mg/dLNormal2.5-5.0UnTriHealth Bethes[facility] North HospitalComment on above:Performed By: #### [id number] ####[facility] ([facility])[address] [place] [address] 30on 50-18-516641Rcx patient is Moderately Stable - Low risk of patient condition declining or worsening The patient's goals for the shift include comfort The clinical goals for the shift include vssNormalUniversity of Parkview Regional HospitalStlukc24CqmyrzWeidzygfes [facility] Regional HospitalBASIC METABOLIC PANELon 25-26-5229Nroxi gap [Moles/Vol]9 mmol/LNormal7-20UnTriHealth Bethes[facility] North HospitalComment on above:Performed By: #### [id number] ####[facility] ([facility])[address] [place] [address]Atbqxrz [Mass/Vol]8.0 mg/dLLow8.6-10.3 [facility] WestComment on above:Performed By: #### [id number] ####[facility] [place], [place] [address]Krwmkqfm [Moles/Vol]102 mmol/NWtlvvu36-958FycaoaxzriTriHealth Bethesda North HospitalComment on above:Performed By: #### [id number] ####[facility] [place] [id number] [Moles/Vol]29 mmol/OEdsjmm95-04YjdzdqtsebTriHealth Bethesda North HospitalComment on above:Performed By: #### [id number] ####[facility] ([facility])[address] [place] [id number] [Mass/Vol]0.86 mg/dLNormal 0.70-1.30UnTriHealth Bethes[facility] North HospitalComment on above:Performed By: #### [id number] ####[facility] ([facility])[address] [place] [id number] FILTRATION RATE ML/MIN/1.73 SQ M.QXWKRPNBN32.7 mL/min/1.73m*2Normal>60.0 [facility] - WestComment on above:Result Comment: [facility]???s estimated glomerular filtration rate (eG FR) will no longer include consideration of race [...] potential consequences that do not disproportionately affect anyone group of individuals. Performed By: #### [id number] ####[facility] ([facility])[address] [place] [id number] [Mass/Vol]95 mg/zTYnayyi53-987TewlhpwqbpTriHealth Bethesda North HospitalComment on above:Performed By: #### [id number] ####[facility] ([facility])[address] [place] [id number] [Moles/Vol]3.4 mmol/LLow 3.5-5.1UnTriHealth Bethesda North HospitalComment on above:Performed By: #### [id number] ####[facility] ([facility])[address] [place] [id number] [Moles/Vol]137 mmol/LRmdyps694-563WyucxpfcdfTriHealth Bethesda North HospitalComment on above:Performed By: #### [id number] ####[facility] ([facility])[address] [place], [place] [id number] nitrogen [Mass/Vol]14 mg/dLNormal7-25UnTriHealth Bethes[facility] North HospitalComment on above:Performed By: #### [id number] ####[facility] ([facility])[address], [place] [id number] NITROGEN/CREATININE (MASS RATIO) IN SER/PLAS16.3NormalUniversVeterans Health AdministrationComment on above: Performed By: #### [id number] ####[facility] ([facility])[address] [place] [id number] WITH AUTO DIFFERENTIALon 94-38-9028Wfhxaqtnfih distribution width (RBC) [Ratio]15.4 %High11.5-15.0UnTriHealth Bethesda North HospitalComment on above:Performed By: #### [id number] ####[facility] ([facility])[address]OK[facility] [place] [id number] MEAN CORPUSCULAR HEMOGLOBIN CONCENTRATION (G/DL) BY XAIQQFBWK02.6 g/wEWsicqw82.0-35.0UnTriHealth Bethesda North HospitalComment on above:Performed By: #### [id number] ####[facility] ([facility])[address] [place], [place] [id number] (Bld) [Volume fraction]25.0 %Low39.0-50.0 [facility] - WestComment on above:Performed By: #### [id number] ####[facility] ([facility])[address] [facility] [place] [id number] (Bld) [Mass/Vol]8.4 g/dLLow13.0-17.0UnTriHealth Bethesda North HospitalComment on above:Performed By: #### [id number] ####[facility] ([facility])[address], [place] [id number] (RBC) [Entitic mass]30.7 dwGnsrju99.0-33.0UnTriHealth Bethes[facility] North HospitalComment on above:Performed By: #### [id number] ####[facility] ([facility])[address] [place] [id number] (RBC) [Entitic vol] 91.2 aBQxftdy93.0-98.0UnTriHealth [facility]hes[facility] North HospitalComment on above: Performed By: #### [id number] ####[facility] ([facility])[address] [address]CMDS (PER 100 WBCS) BY AUTOMATED COUNT0.0 %Pxusio0IkejkkwiwwTriHealth Bethesda North HospitalComment on above:Performed By: #### [id number] ####[facility] ([facility])[address] [place] [id number] (10*3/UL) IN BLOOD AUTOMATED [id number] 10*3/bPVlbafy674-388GpyonibtcwTriHealth Bethesda North Hospital Comment on above:Performed By: #### [id number] ####[facility] ([facility])[address] [place] [id number] (Bld) [#/Vol]2.74 10*6/uLLow4.20-5.70UnTriHealth Bethesda North HospitalComment on above:Performed By: #### [id number] ####[facility] ([facility])[address] [place] [id number] (Bld) [#/Vol]18.82 10*3/uLHigh4.00-10.60UnTriHealth Bethes[facility] North HospitalComment on above: Performed By: #### [id number] ####[facility] ([facility])[address] [place] [id number] 60-07-0772Qlcdiuxxv [Mass/Vol]1.9 mg/dLNormal 1.9-2.7UnTriHealth Bethesda North HospitalComment on above:Performed By: #### [id number] ####[facility] ([facility])[address] [place] [id number] DIFFERENTIALon 05-49-8231GZLGZNBKS (10*3/UL) IN BLOOD BY CALCULATION0.04 10*3/uL Normal0.00-0.20UnTriHealth Bethesda North HospitalComment on above:Performed By: #### [id number] ####[facility] ([facility])[address] [place] [id number] BASOPHILS/100 LEUKOCYTES IN BLOOD BY AUTOMATED COUNT0.2 %Normal0.0-1.0UnTriHealth Bethesda North HospitalComment on above:Performed By: #### [id number] ####[facility] ([facility])[address] [place] [id number] (10*3/UL) IN BLOOD BY CALCULATION0.45 10*3/uLNormal0.00-0.50UnTriHealth [facility] North HospitalComment on above:Performed By: #### [id number] ####[facility] ([facility])[address] [place] [id number]/100 LEUKOCYTES IN BLOOD BY AUTOMATED COUNT2.4 %Normal0.0-6.0UnTriHealth Bethes[facility] North HospitalComment on above:Performed By: #### [id number] ####[facility] ([facility])[address] [place] [id number] GRANULOCYTES (10*3/UL) IN BLOOD BY CALCULATION0.23 10*3/uLHigh0.00-0.20UnTriHealth [facility]hes[facility] North HospitalComment on above: Performed By: #### [id number] ####[facility] ([facility])[address] [place] [id number] GRANULOCYTES/100 LEUKOCYTES IN BLOOD BY AUTOMATED COUNT1.2 %High0.0-1.0UnTriHealth Bethesda North HospitalComment on above: Performed By: #### [id number] ####[facility] ([facility])[address] [place] [id number] (10*3/UL) IN BLOOD BY CALCULATION2.03 10*3/uL Normal1.20-4.00UnTriHealth Bethesda North HospitalComment on above:Performed By: #### [id number] ####[facility] ([facility])[address] [place] [id number] LYMPHOCYTES/100 LEUKOCYTES IN BLOOD BY AUTOMATED COUNT10.8 %Low20.0-45.0 [facility] - WestComment on above:Performed By: #### [id number] ####[facility] ([facility])[address] [place] [id number] (10*3/UL) IN BLOOD BY CALCUATION1.79 10*3/uLHigh0.10-1.00UnTriHealth Bethes[facility] North HospitalComment on above:Performed By: #### [id number] ####[facility] ([facility])[address] [place] [id number]/100 LEUKOCYTES IN BLOOD BY AUTOMATED COUNT9.5 %Normal5.0-12.0UnTriHealth Bethesda North HospitalComment on above:Performed By: #### [id number] ####[facility] ([facility])[address] [place] [id number] (10*3/UL) IN BLOOD BY DNPNLFQROQI82.3 10*3/uLHigh 1.6-7.6UnTriHealth Bethesda North HospitalComment on above:Performed By: #### [id number] ####[facility] ([facility])[address] [place] [id number] NEUTROPHILS/100 LEUKOCYTES IN BLOOD BY AUTOMATED COUNT75.9 %High40.0-72.0 [facility] - WestComment on above:Performed By: #### [id number] ####[facility] ([facility])[address] [place] [id number] 21-59-7457Zdfaoipja [Mass/Vol]3.5 mg/dLNormal2.5-5.0UnTriHealth Bethesda North HospitalComment on above:Performed By: #### [id number] ####[facility] ([facility])[address] [place] [id number] 31-84-650439Vwe patient is Moderately Stable - Low risk of patient condition declining or worsening The patient's goals for the shift include comfort The clinical goals for the shift include vss comfortNormalUniversity [facility]30NormalUniversVeterans Health AdministrationBASIC METABOLIC PANELon 83-53-8871Galbg gap [Moles/Vol]11 mmol/LNormal7-20UnTriHealth Bethesda North HospitalComment on above:Performed By: #### [id number] ####[facility] ([facility])[address] [place], [place] [address]Pdflkcu [Mass/Vol]8.5 mg/dLLow8.6-10.3 [facility] WestComment on above:Performed By: #### [id number] ####[facility] ([facility])[address] [place], [place] [address]Sdwsnvpy [Moles/Vol]99 mmol/SDzhatp46-864FrkngclvpaTriHealth Bethesda North HospitalComment on above:Performed By: #### [id number] ####[facility] ([facility])[address] [place], [place] [address]HZ5 [Moles/Vol]29 mmol/KTptetd98-04QsyqqylmplTriHealth Bethesda North HospitalComment on above:Performed By: #### [id number] ####[facility] ([facility])[address] [place], [place] [address]Upujlkdtjm [Mass/Vol]1.42 mg/dLHigh 0.70-1.30UnTriHealth Bethesda North HospitalComment on above:Performed By: #### [id number] ####[facility] ([facility])[address] [place], [place] [address]LDIERIFQOO FILTRATION RATE ML/MIN/1.73 SQ M.UJCBXLSAO45.2 mL/min/1.73m*2Low>60.0UnTriHealth Bethesda North HospitalComment on above:Result Comment: [facility]???s estimated glomerular filtration rate (eGFR) will no [...] potential consequences that do not disproportionately affect anyone group of individuals. Performed By: #### [id number] ####[facility] ([facility])[address] [place] [id number] [Mass/Vol]112 mg/kDYrto00-949LblyyzixprTriHealth Bethesda North HospitalComment on above:Performed By: #### [id number] ####[facility] ([facility])[address] [place] [id number] [Moles/Vol]3.5 mmol/LNormal 3.5-5.1UnTriHealth Bethes[facility] North HospitalComment on above:Performed By: #### [id number] ####[facility] ([facility])[address] [place] [id number] [Moles/Vol]135 mmol/NVar826-055AlprmfeukcTriHealth Bethesda North HospitalComment on above:Performed By: #### [id number] ####[facility] ([facility])[address] [place], [place] [id number] nitrogen [Mass/Vol]15 mg/dLNormal7-25UnTriHealth Bethesda North HospitalComment on above:Performed By: #### [id number] ####[facility] ([facility])[address] [place] [id number] NITROGEN/CREATININE (MASS RATIO) IN SER/PLAS10.6NormalUniversVeterans Health AdministrationComment on above: Performed By: #### [id number] ####[facility] ([facility])[address] [place] [id number] WITH AUTO DIFFERENTIALon 11-14-5057Aeytitebcqf distribution width (RBC) [Ratio]15.4 %High11.5-15.0UnTriHealth Bethesda North HospitalComment on above:Performed By: #### [id number] ####[facility] ([facility])[address] [place] [id number] MEAN CORPUSCULAR HEMOGLOBIN CONCENTRATION (G/DL) BY IZIPCHQRB36.0 g/lHEwmpau12.0-35.0UnTriHealth Bethesda North HospitalComment on above:Performed By: #### [id number] ####[facility] ([facility])[address] [id number] (Bld) [Volume fraction]25.3 %Low39.0-50.0 [facility] - WestComment on above:Performed By: #### [id number] ####[facility] ([facility])[address] [id number] (Bld) [Mass/Vol]8.6 g/dLLow13.0-17.0UnTriHealth Bethesda North HospitalComment on above:Performed By: #### [id number] ####[facility] ([facility])[address] [id number] (RBC) [Entitic mass]31.0 seJopfvv25.0-33.0UnTriHealth Bethesda North HospitalComment on above:Performed By: #### [id number] ####[facility] ([facility])[address] [id number] (RBC) [Entitic vol] 91.3 gFVppnbi00.0-98.0UnTriHealth Bethesda North HospitalComment on above: Performed By: #### [id number] ####[facility] ([facility])[address] [id number] (PER 100 WBCS) BY AUTOMATED COUNT0.0 %Cfmcsu8RrobgtuxbkTriHealth Bethesda North HospitalComment on above:Performed By: #### [id number] ####[facility] ([facility])[address] [facility] [place] [place] [id number] (10*3/UL) IN BLOOD AUTOMATED [id number] 10*3/mJIuopji415-985WhftgrnjlqTriHealth Bethesda North Hospital Comment on above:Performed By: #### [id number] ####[facility] ([facility])[address] [id number] (Bld) [#/Vol]2.77 10*6/uLLow4.20-5.70UnTriHealth Bethesda North HospitalComment on above:Performed By: #### [id number] ####[facility] ([facility])[address] [place] [id number] (Bld) [#/Vol]19.94 10*3/uLHigh4.00-10.60UnTriHealth Bethesda North HospitalComment on above: Performed By: #### [id number] ####[facility] ([facility])[address] [place] [id number] 10-72-3356DIYJUNGWatfndVqqqjnjngx [facility] Regional HospitalCONSULTNormalUniversity [facility]Med[facility] Regional HospitalMAGNESIUMon 05-22-2025 Magnesium [Mass/Vol]1.9 mg/dLNormal1.9-2.7Un[facility] Comment on above:Performed By: #### [id number] ####[facility] ([facility])[address] [facility] [place] [id number] DIFFERENTIALon 64-16-2451RMHYTFLPT (10*3/UL) IN BLOOD BY CALCULATION0.06 10*3/uLNormal0.00-0.20UnTriHealth Bethesda North HospitalComment on above:Performed By: #### [id number] ####[facility] ([facility])[address] [place], [place] [address]UGEAKINXY/100 LEUKOCYTES IN BLOOD BY AUTOMATED COUNT0.3 %Normal0.0-1.0UnTriHealth Bethesda North HospitalComment on above:Performed By: #### [id number] ####[facility] ([facility])[address] [place], [place] [address]DDZYXKPCPVW (10*3/UL) IN BLOOD BY CALCULATION0.40 10*3/uL Normal0.00-0.50UnTriHealth Bethesda North HospitalComment on above:Performed By: #### [id number] ####[facility] ([facility])[address] [place] [address] EOSINOPHILS/100 LEUKOCYTES IN BLOOD BY AUTOMATED COUNT2.0 %Normal0.0-6.0 [facility] - WestComment on above:Performed By: #### [id number] ####[facility] ([facility])[address] [place] [id number] GRANULOCYTES (10*3/UL) IN BLOOD BY CALCULATION0.34 10*3/uLHigh0.00-0.20 [facility] - WestComment on above:Performed By: #### [id number] ####[facility] ([facility])[address] [place] [id number] GRANULOCYTES/100 LEUKOCYTES IN BLOOD BY AUTOMATED COUNT1.7 %High0.0-1.0 [facility] - WestComment on above:Performed By: #### [id number] ####[facility] ([facility])[address] [id number] (10*3/UL) IN BLOOD BY CALCULATION1.85 10*3/uLNormal1.20-4.00UnTriHealth Bethesda North HospitalComment on above:Performed By: #### [id number] ####[facility] ([facility])[address] [place] [id number]/100 LEUKOCYTES IN BLOOD BY AUTOMATED COUNT9.3 %Low20.0-45.0UnTriHealth Bethesda North HospitalComment on above:Performed By: #### [id number] ####[facility] ([facility])[address] [place] [id number] (10*3/UL) IN BLOOD BY CALCUATION2.09 10*3/uLHigh 0.10-1.00UnTriHealth Bethesda North HospitalComment on above:Performed By: #### [id number] ####[facility] ([facility])[address] [place] [id number] MONOCYTES/100 LEUKOCYTES IN BLOOD BY AUTOMATED COUNT10.5 %Normal5.0-12.0 [facility] - WestComment on above:Performed By: #### [id number] ####[facility] ([facility])[address] [place], [place] [id number] (10*3/UL) IN BLOOD BY SCPTSTMTDCL32.2 10*3/uLHigh1.6-7.6UnTriHealth Bethesda North HospitalComment on above:Performed By: #### [id number] ####[facility] ([facility])[address] [place], [place] [address]CTOIDQCTFQI/100 LEUKOCYTES IN BLOOD BY AUTOMATED COUNT76.2 %High40.0-72.0UnTriHealth Bethesda North HospitalComment on above:Performed By: #### [id number] ####[facility] ([facility])[address] [place], [place] [address]WSRGBVTJAObg 36-48-8544Eorszegce [Mass/Vol]4.0 mg/dLNormal 2.5-5.0UnTriHealth Bethesda North HospitalComment on above:Performed By: #### [id number] ####[facility] ([facility])[address] [place], [place] [address]IBRAU METABOLIC PANELon 84-29-3419Qjxlf gap [Moles/Vol]14 mmol/LNormal7-20UnTriHealth Bethesda North HospitalComment on above:Performed By: #### [id number] ####[facility] ([facility])[address] [place], [place] [address]Mzelsqx [Mass/Vol]8.1 mg/dLLow8.6-10.3UnTriHealth Bethesda North HospitalComment on above:Performed By: #### [id number] ####[facility] ([facility])[address] [place] [address] Chloride [Moles/Vol]99 mmol/JSipgzc59-968IuychxbrymTriHealth Bethesda North Hospital Comment on above:Performed By: #### [id number] ####[facility] ([facility])[address] [place], [place] [address]NS2 [Moles/Vol]27 mmol/EOzmgvw22-74YvtbrlhnojTriHealth Bethesda North HospitalComment on above:Performed By: #### [id number] ####[facility] ([facility])[address] [place], [place] [address]Sksmmrwgmw [Mass/Vol]0.77 mg/dL Normal0.70-1.30UnTriHealth Bethesda North HospitalComment on above:Performed By: #### [id number] ####[facility] ([facility])[address] [place] [id number] GLOMERULAR FILTRATION RATE ML/MIN/1.73 SQ M.VDZELPASY53.8 mL/min/1.73m*2Normal >60.0UnTriHealth Bethesda North HospitalComment on above:Result Comment: The [facility]???s estimated glomerular filtration rate (eG FR) will no longer include consideration of race [...] potential consequences that do not disproportionately affect anyone group of individuals. Performed By: #### [id number] ####[facility] ([facility])[address] [id number] [Mass/Vol]97 mg/uYZzfxvl26-180GodnlphjkgTriHealth Bethesda North HospitalComment on above:Performed By: #### [id number] ####[facility] ([facility])[address] [place] [id number] [Moles/Vol]3.7 mmol/LNormal 3.5-5.1UnTriHealth Bethesda North HospitalComment on above:Performed By: #### [id number] ####[facility] ([facility])[address] [id number] [Moles/Vol]136 mmol/JWsqbxb705-851GeldmtpqkcTriHealth Bethesda North HospitalComment on above:Performed By: #### [id number] ####[facility] ([facility])[address] [place], [place] [id number] nitrogen [Mass/Vol]11 mg/dLNormal7-25UnTriHealth Bethesda North HospitalComment on above:Performed By: #### [id number] ####[facility] ([facility])[address] [place], [place] [id number] NITROGEN/CREATININE (MASS RATIO) IN SER/PLAS14.3NormalUniversity of Farnsworth Medical CenterComment on above: Performed By: #### [id number] ####[facility] [place] [address]VEBYF CULTUREon 20-52-2322Ybmsskjb identified Cx Nom (Bld)No growth at 5 daysNormalUniBellevue HospitalComment on above:Performed By: #### [id number] ####[facility] [place] [address] Order Comment: From a different site than #1.CBC WITH AUTO DIFFERENTIALon 18-81-2422Qjwvctkwsuw distribution width (RBC) [Ratio]15.1 %High11.5-15.0 [facility] - WestComment on above:Performed By: #### [id number] ####[facility] ([facility])[address] [place], [place] [address]MSMRCJUSLCQ MEAN CORPUSCULAR HEMOGLOBIN CONCENTRATION (G/DL) BY NIYJBZSUO32.8 g/dLNormal 32.0-35.0UnTriHealth Bethesda North HospitalComment on above:Performed By: #### [id number] ####[facility] ([facility])[address] [place] [id number] Hematocrit (Bld) [Volume fraction]27.8 %Low39.0-50.0UnTriHealth Bethesda North HospitalComment on above:Performed By: #### [id number] ####[facility] ([facility])[address] [place], [place] [id number] (Bld) [Mass/Vol]9.4 g/dLLow 13.0-17.0UnTriHealth Bethesda North HospitalComment on above:Performed By: #### [id number] ####[facility] ([facility])[address] [place], [place] [id number] (RBC) [Entitic mass]31.5 yoCcrzdk57.0-33.0Un[facility] Comment on above:Performed By: #### [id number] ####[facility] ([facility])[address] [place], [place] [id number] (RBC) [Entitic vol]93.3 wDTqquix99.0-98.0 [facility] WestComment on above:Performed By: #### [id number] ####[facility] ([facility])[address] [place] [id number] (PER 100 WBCS) BY AUTOMATED COUNT0.0 %Ncmzpf1RkimbvriamTriHealth Bethesda North HospitalComment on above:Performed By: #### [id number] ####[facility] ([facility])[address] [place] [id number] (10*3/UL) IN BLOOD AUTOMATED [id number] 10*3/uLNormal 150-400UnTriHealth Bethesda North HospitalComment on above:Performed By: #### [id number] ####[facility] ([facility])[address] [facility] [place] [id number] (Bld) [#/Vol]2.98 10*6/uLLow4.20-5.70UnTriHealth Bethesda North HospitalComment on above:Performed By: #### [id number] ####[facility] ([facility])[address] [facility] [place] [place] [id number] (Bld) [#/Vol]19.68 10*3/uLHigh4.00-10.60UnTriHealth Bethesda North HospitalComment on above:Performed By: #### [id number] ####[facility] ([facility])[address] [facility] [place] [place] [id number] 05-21-2025 CONSULTNormalUniversVeterans Health AdministrationCT ABDOMEN PELVIS W IV CONTRAST on 40-17-3766UU ABDOMEN PELVIS W IV CONTRASTInvalid Interpretation Code [facility] WestComment on above:Order Comment: With double oral contrast and longer than standard wait prior to imagingMAGNESIUMon 48-01-9866Djzwwjvie [Mass/Vol]1.8 mg/dLLow1.9-2.7UnTriHealth Bethesda North HospitalComment on above:Performed By: #### [id number] ####[facility] ([facility])[address] [place] [address]ZFJYLR DIFFERENTIALon 05-21-2025 BASOPHILS (10*3/UL) IN BLOOD BY CALCULATION0.00 10*3/uLNormal0.00-0.20UnTriHealth Bethesda North HospitalComment on above:Performed By: #### [id number] ####[facility] ([facility])[address] [place] [address]DIFFZJSYD/100 LEUKOCYTES IN BLOOD BY AUTOMATED COUNT0.0 %Normal0.0-1.0Un[facility] Comment on above:Performed By: #### [id number] ####[facility] ([facility])[address] [place] [id number] (10*3/UL) IN BLOOD BY CALCULATION0.14 10*3/uLNormal0.00-0.50UnTriHealth Bethesda North HospitalComment on above: Performed By: #### [id number] ####[facility] ([facility])[address] [place] [id number]/100 LEUKOCYTES IN BLOOD BY AUTOMATED COUNT0.7 % Normal0.0-6.0UnTriHealth Bethesda North HospitalComment on above:Performed By: #### [id number] ####[facility] ([facility])[address] [place] [address] LYMPHOCYTES (10*3/UL) IN BLOOD BY CALCULATION1.30 10*3/uLNormal1.20-4.00 [facility] - WestComment on above:Performed By: #### [id number] ####[facility] ([facility])[address], [place] [address]JMVAMQNWUAU/100 LEUKOCYTES IN BLOOD BY AUTOMATED COUNT6.6 %Low20.0-45.0UnTriHealth Bethesda North HospitalComment on above:Performed By: #### [id number] ####[facility] ([facility])[address] [place] [address]QFMWORQNGOARJJ (10*3/UL) IN BLOOD BY CALCULATION0.14 10*3/uLHigh0.00UnTriHealth Bethesda North HospitalComment on above:Performed By: #### [id number] ####[facility] ([facility])[address] [place], [place] [address]TULPNBZXAKPQQH/100 LEUKOCYTES IN BLOOD CELLAVISION0.7 %High 0.0-0.0UnTriHealth Bethesda North HospitalComment on above:Performed By: #### [id number] ####[facility] ([facility])[address] [place] [address] MONOCYTES (10*3/UL) IN BLOOD BY CALCUATION1.55 10*3/uLHigh0.10-1.00UnTriHealth Bethesda North HospitalComment on above:Performed By: #### [id number] ####[facility] ([facility])[address] [place], [place] [address]NOHCOTIPJ/100 LEUKOCYTES IN BLOOD BY AUTOMATED COUNT7.9 %Normal5.0-12.0UnTriHealth Bethesda North HospitalComment on above:Performed By: #### [id number] ####[facility] ([facility])[address] [place], [place] [address]GIZMYWXZQK (10*3/UL) IN BLOOD BY CALCULATION0.14 10*3/uLHigh0.00UnTriHealth Bethesda North HospitalComment on above:Performed By: #### [id number] ####[facility] ([facility])[address] [place], [place] [address]CMJCCQOKQH/100 LEUKOCYTES IN BLOOD CELLAVISION0.7 %High 0.0-0.0UnTriHealth Bethesda North HospitalComment on above:Performed By: #### [id number] ####[facility] ([facility])[address] [place] [address] NEUTROPHILS (10*3/UL) IN BLOOD BY ZHIHYNBFIIO36.4 10*3/uLHigh1.6-7.6UnTriHealth Bethesda North HospitalComment on above:Performed By: #### [id number] ####[facility] ([facility])[address] [place], [place] [address]WEDFVOQBQDV/100 LEUKOCYTES IN BLOOD BY AUTOMATED COUNT83.4 %High40.0-72.0UnTriHealth Bethesda North HospitalComment on above:Performed By: #### [id number] ####[facility] ([facility])[address] [place] [address]SNXKIT CELLS/100 LEUKOCYTES IN BLOOD0 %Ppseap0FosdxpobipTriHealth Bethesda North HospitalComment on above:Performed By: #### [id number] ####[facility] ([facility])[address] [place] [address] PLATELETS GIANT PRESENCE IN BLOOD BY LIGHT MICROSCOPYPresentNormalUniversVeterans Health AdministrationComment on above:Performed By: #### [id number] ####[facility] ([facility])[address] [place] [address]UWCNREH LYMPHOCYTES (10*3/UL) IN BLOOD BY CALCULATION0.00 10*3/uLNormal0.00UnTriHealth Bethesda North HospitalComment on above:Performed By: #### [id number] ####[facility] ([facility])[address] [facility]OK[address]TER[facility] [place], [place] [address]LCOHQFG LYMPHOCYTES/100 LEUKOCYTES IN BLOOD CELLAVISION0.0 %Normal0.0-0.0UnTriHealth Bethesda North HospitalComment on above:Performed By: #### [id number] ####[facility] ([facility])[address] [place], [place] [id number]/MSSA DNA NASALon 47-32-0014YFLB DNANegativeNormal NegativeUnTriHealth Bethesda North HospitalComment on above:Order Comment: Testing methodology is an automated qualitative in vitro diagnostic test for the directdetection and differentiation of Staphylococcus aureus (SA) DNA and methicillin-resistant Staphylococcus aureus (MRSA) DNA from nasal swabs in patients at risk for nasal colonization. The test utilizes real-time polymerase chain reaction (PCR) for the amplification of MRSA/SA DNA and fluorogenic t arget-specific hybridization probes for the detection of the amplified DNA. A negative result does not preclude nasal colonization.Performed By: #### [id number] ####[facility] ([facility])[address] [place] [place], [place] [id number] DNANegative NormalNegativeUnTriHealth Bethesda North HospitalComment on above:Order Comment: Testing methodology is an automated qualitative in vitro diagnostic test for the directdetection and differentiation of Staphylococcus aureus (SA) DNA and methicillin-resistant Staphylococcus aureus (MRSA) DNA from nasal swabs in patients at risk for nasal colonization. The test utilizes real-time polymerase chain reaction (PCR) for the amplification of MRSA/SA DNA and fluorogenic t arget-specific hybridization probes for the detection of the amplified DNA. A negative result does not preclude nasal colonization.Performed By: #### [id number] ####[facility] ([facility])[address] [place], [place] [address]WHPFJVTBHZyx 40-03-6566Ksvoernnw [Mass/Vol]4.2 mg/dLNormal2.5-5.0UnTriHealth Bethesda North HospitalComment on above:Performed By: #### [id number] ####[facility] ([facility])[address] [place], [place] [address]HDPPYNVPLBes 40-71-8845POLYNLVQQ, TOTAL PRESENCE IN URINENegativeNormalNegativeUnTriHealth Bethesda North Hospital Comment on above:Performed By: #### [id number] ####[facility] ([facility])[address] [place], [place] [address]Nawbquc (U)ClearNormalClear, OtherUnTriHealth Bethesda North HospitalComment on above:Performed By: #### [id number] ####[facility] ([facility])[address] [place], [place] [address]Mgwpn (U)YellowNormal Yellow, Light Yellow, ColorlessUnTriHealth Bethesda North HospitalComment on above:Performed By: #### [id number] ####[facility] ([facility])[address] [place], [place] [address]PEDIECZ (MG/DL) IN URINENormalNormalNormalUniversVeterans Health AdministrationComment on above:Performed By: #### [id number] ####[facility] ([facility])[address] [place], [place] [address]RWZIESQAJF PRESENCE IN URINESmallAbnormalNegativeUnTriHealth Bethesda North HospitalComment on above: Performed By: #### [id number] ####[facility] ([facility])[address] [place], [place] [address]Guylvob Ql (U)40 mg/dLAbnormalNegativeUnTriHealth Bethesda North HospitalComment on above:Performed By: #### [id number] ####[facility] ([facility])[address] [place], [place] [address]VFVIOJLAL ESTERASE PRESENCE IN URINE BY TEST STRIPModerateAbreynoNegfairbanks memorial hospitalUnTriHealth Bethesda North HospitalComment on above:Performed By: #### [id number] ####[facility] ([facility])[address] [place], [place] [address]RKDQKBY PRESENCE IN URINENegativeNormalNegativeUnTriHealth Bethesda North HospitalComment on above:Performed By: #### [id number] ####[facility] ([facility])[address] [place], [place] [address]dH (U)5.5 [pH]Normal 5.0-8.0UnTriHealth Bethesda North HospitalComment on above:Performed By: #### [id number] ####[facility] ([facility])[address] [place], [place] [address]Adthmlq (U) [Mass/Vol]30 mg/dLAbnolifecare hospitals of north carolinaNegfairbanks memorial hospitalUnTriHealth Bethesda North HospitalComment on above:Performed By: #### [id number] ####[facility] ([facility])[address] [place], [place] [address]Angejwwy gravity (U) [Rel density]1.923Spvi2.010-1.030 [facility] - WestComment on above:Performed By: #### [id number] ####[facility] ([facility])[address] [place], [place] [address]PDFQOOOPFZHC (MG/DL) IN URINENormalNormalNormalUniversVeterans Health AdministrationComment on above:Performed By: #### [id number] ####[facility] ([facility])[address] [place], [place] [address]PYDXHYHBQT MICROSCOPICon 13-77-2109NXN (#/HPF) IN URINE SEDIMENT0-2NormalNone Seen, 0-2UnTriHealth Bethesda North HospitalComment on above:Order Comment: Microscopic unspun. Less than 3mL receivedPerformed By: #### [id number] ####[facility] ([facility])[address] [place] [address] SQUAMOUS EPITHELIAL CELLS (#/LPF) IN URINE SEDIMENTOccasionalNormalNone Seen, Occasional, FewUnTriHealth Bethesda North HospitalComment on above:Order Comment: Microscopic unspun. Less than 3mL receivedPerformed By: #### [id number] ####[facility] ([facility])[address] [place], [place] [address]RVQ (LEUKOCYTE) (#/HPF) IN URINE SEDIMENT6-10AbnormalNone Seen, 0-2UnTriHealth Bethesda North HospitalComment on above:Order Comment: Microscopic unspun. Less than 3mL received Performed By: #### [id number] ####[facility] ([facility])[address] [place], [place] [address]BAJMI CULTURE, ROUTINEon 89-92-6572Wpyluxlh identified Cx Nom (U)No growth at 48 hoursNormalUniversVeterans Health AdministrationComment on above:Performed By: #### [id number] ####[facility] ([facility])[address] [place], [place] [address]Nfvpxeyf identified Cx Nom (U)<10,000 CFU/ML No Significant GrowthNormalUniverscleveland clinic children's hospital for rehabilitation of Parkview Regional HospitalComment on above:Performed By: #### [id number] ####[facility] ([facility])[address] [place], [place] [address]ui 57-84-346388Zoz patient is Moderately Stable - Low risk of patient condition declining or worsening The patient's goals for the shift include comfort, safety The clinical goals for the shift include stable vitals, comfort, pain control NormalUnTriHealth Bethesda North HospitalBASIC METABOLIC PANELon 05-37-9832Miuth gap [Moles/Vol]11 mmol/LNormal7-20UnTriHealth Bethesda North HospitalComment on above:Performed By: #### [id number] ####[facility] ([facility])[address] [place], [place] [address]Jnotdcn [Mass/Vol]7.6 mg/dLLow8.6-10.3UnTriHealth Bethesda North HospitalComment on above:Performed By: #### [id number] ####[facility] ([facility])[address] [place], [place] [address]Uhakoxlp [Moles/Vol]100 mmol/LNormal 98-107UnTriHealth Bethesda North HospitalComment on above:Performed By: #### [id number] ####[facility] ([facility])[address] [place], [place] [address]NY2 [Moles/Vol]28 mmol/ZZaysmu44-42MfwuwtlucnTriHealth Bethesda North HospitalComment on above:Performed By: #### [id number] ####[facility] ([facility])[address] [place], [place] [address]Ncunbvdiak [Mass/Vol]0.54 mg/dLLow0.70-1.30UnTriHealth Bethesda North HospitalComment on above:Performed By: #### [id number] ####[facility] ([facility])[address] [place], [place] [address]ZJADHLPANP FILTRATION RATE ML/MIN/1.73 SQ M.CHQHLGCLB758.3 mL/min/1.73m*2Normal>60.0UnTriHealth Bethesda North HospitalComment on above:Result Comment: [facility]???s estimated glomerular filtration rate (eGFR) will no [...] potential consequences that do not disproportionately affect anyone group of individuals.Performed By: #### [id number] ####[facility] ([facility])[address] [place], [place] [address]Zqchgnd [Mass/Vol]79 mg/bFXlfecv74-759PuqkjaupzxTriHealth Bethesda North HospitalComment on above:Performed By: #### [id number] ####[facility] ([facility])[address] [place] [id number] [Moles/Vol]3.5 mmol/LNormal3.5-5.1UnTriHealth Bethesda North HospitalComment on above:Performed By: #### [id number] ####[facility] ([facility])[address] [place] [id number] [Moles/Vol]135 mmol/LLow 136-145UnTriHealth Bethesda North HospitalComment on above:Performed By: #### [id number] ####[facility] ([facility])[address] [place] [id number] nitrogen [Mass/Vol]9 mg/dLNormal7-25UnTriHealth Bethesda North HospitalComment on above:Performed By: #### [id number] ####[facility] ([facility])[address] [place] [id number] NITROGEN/CREATININE (MASS RATIO) IN SER/PLAS16.7Normal [facility] - WestComment on above:Performed By: #### [id number] ####[facility] ([facility])[address] [place] [id number] WITH AUTO DIFFERENTIALon 71-02-5970Latwwumxxmq distribution width (RBC) [Ratio]14.6 % Nhihsa67.5-15.0UnTriHealth Bethesda North HospitalComment on above:Performed By: #### [id number] ####[facility] ([facility])[address] [place] [id number] ERYTHROCYTE MEAN CORPUSCULAR HEMOGLOBIN CONCENTRATION (G/DL) BY HNETFZZVB12.0 g/gNBbuxam59.0-35.0UnTriHealth Bethesda North HospitalComment on above:Performed By: #### [id number] ####[facility] ([facility])[address] [place] [id number] (Bld) [Volume fraction]25.6 %Low39.0-50.0UnTriHealth Bethesda North HospitalComment on above:Performed By: #### [id number] ####[facility] ([facility])[address] [place] [id number] (Bld) [Mass/Vol]8.7 g/dLLow 13.0-17.0UnTriHealth Bethesda North HospitalComment on above:Performed By: #### [id number] ####[facility] ([facility])[address] [place] [id number] (RBC) [Entitic mass]31.0 ujCcdqqe96.0-33.0UnTriHealth [facility] North Hospital Comment on above:Performed By: #### [id number] ####[facility] ([facility])[address] [place] [id number] (RBC) [Entitic vol]91.1 bIFlzdyz63.0-98.0 [facility] - WestComment on above:Performed By: #### [id number] ####[facility] ([facility])[address] [place] [id number] (PER 100 WBCS) BY AUTOMATED COUNT0.0 %Ygtcfc7SugsqjyfjpTriHealth Bethesda North HospitalComment on above:Performed By: #### [id number] ####[facility] ([facility])[address] [place] [id number] (10*3/UL) IN BLOOD AUTOMATED [id number] 10*3/uLNormal 150-400UnTriHealth Bethesda North HospitalComment on above:Performed By: #### [id number] ####[facility] ([facility])[address] [place] [id number] (Bld) [#/Vol]2.81 10*6/uLLow4.20-5.70UnTriHealth Bethesda North HospitalComment on above:Performed By: #### [id number] ####[facility] ([facility])[address] [place] [id number] (Bld) [#/Vol]14.31 10*3/uLHigh4.00-10.60UnTriHealth Bethesda North HospitalComment on above:Performed By: #### [id number] ####[facility] ([facility])[address] [place] [id number] ABDOMEN PELVIS W IV CONTRASTon [id number] ABDOMEN PELVIS W IV CONTRASTNormalUniversVeterans Health AdministrationCTA CHEST W IV CONTRASTon 05-37-9006TUN CHEST W IV CONTRASTInvalid Interpretation CodeUnTriHealth Bethesda North HospitalDSon 91-10-4203BRAemjhg [facility] - WestMAGNESIUMon 11-53-6331Ehfrgesau [Mass/Vol]1.6 mg/dLLow1.9-2.7UnTriHealth Bethesda North HospitalComment on above:Performed By: #### [id number] ####[facility] ([facility])[address] [place] [id number] MANUAL DIFFERENTIALon 85-68-1299BXFAYCURM (10*3/UL) IN BLOOD BY CALCULATION0.04 10*3/uLNormal0.00-0.20UnTriHealth Bethesda North HospitalComment on above: Performed By: #### [id number] ####[facility] ([facility])[address] [place] [id number]/100 LEUKOCYTES IN BLOOD BY AUTOMATED COUNT0.3 % Normal0.0-1.0UnTriHealth Bethesda North HospitalComment on above:Performed By: #### [id number] ####[facility] ([facility])[address] [place] [id number] EOSINOPHILS (10*3/UL) IN BLOOD BY CALCULATION0.72 10*3/uLHigh0.00-0.50UnTriHealth Bethesda North HospitalComment on above:Performed By: #### [id number] ####[facility] ([facility])[address] [place] [id number]/100 LEUKOCYTES IN BLOOD BY AUTOMATED COUNT5.0 %Normal0.0-6.0UnTriHealth Bethesda North HospitalComment on above:Performed By: #### [id number] ####[facility] ([facility])[address] [place] [id number] GRANULOCYTES (10*3/UL) IN BLOOD BY CALCULATION0.23 10*3/uLHigh0.00-0.20Un[facility] Hospital Comment on above:Performed By: #### [id number] ####[facility] ([facility])[address] [place] [id number] GRANULOCYTES/100 LEUKOCYTES IN BLOOD BY AUTOMATED COUNT1.6 %High0.0-1.0UnTriHealth Bethesda North HospitalComment on above:Performed By: #### [id number] ####[facility] ([facility])[address] [place] [id number] (10*3/UL) IN BLOOD BY CALCULATION2.68 10*3/uL Normal1.20-4.00UnTriHealth Bethesda North HospitalComment on above:Performed By: #### [id number] ####[facility] ([facility])[address] [place] [id number] LYMPHOCYTES/100 LEUKOCYTES IN BLOOD BY AUTOMATED COUNT18.7 %Low20.0-45.0 [facility] - WestComment on above:Performed By: #### [id number] ####[facility] ([facility])[address] [place] [id number] (10*3/UL) IN BLOOD BY CALCUATION1.57 10*3/uLHigh0.10-1.00UnTriHealth Bethesda North HospitalComment on above:Performed By: #### [id number] ####[facility] ([facility])[address] [place] [id number]/100 LEUKOCYTES IN BLOOD BY AUTOMATED COUNT11.0 %Normal5.0-12.0UnTriHealth Bethesda North HospitalComment on above:Performed By: #### [id number] ####[facility] ([facility])[address] [place], [place] [id number] (10*3/UL) IN BLOOD BY CALCULATION9.1 10*3/uLHigh 1.6-7.6UnTriHealth Bethesda North HospitalComment on above:Performed By: #### [id number] ####[facility] ([facility])[address] [place] [address] NEUTROPHILS/100 LEUKOCYTES IN BLOOD BY AUTOMATED COUNT63.4 %Ttlwse79.0-72.0 [facility] - WestComment on above:Performed By: #### [id number] ####[facility] ([facility])[address] [place] [address]OEPPSOKACOyd 40-52-0673Cxswqiqzu [Mass/Vol]2.7 mg/dLNormal2.5-5.0UnTriHealth Bethesda North HospitalComment on above:Performed By: #### [id number] ####[facility] ([facility])[address] [place], [place] [address]QIVGCJHKYKcz 70-92-1281ZWMFIIXEN, TOTAL PRESENCE IN URINENegativeNormalNegativeUnTriHealth Bethesda North Hospital Comment on above:Order Comment: Microscopics not performed on urines with negative chemical reactions unless requested on original order.Performed By: #### [id number] ####[facility] ([facility])[address] [place] [address] Clarity (U)ClearNormalClearUnTriHealth Bethesda North HospitalComment on above: Order Comment: Microscopics not performed on urines with negative chemical reactions unless requested on original order.Performed By: #### [id number] ####[facility] ([facility])[address] [place], [place] [address]Oduzz (U)YellowNormal Colorless, Yellow, Light-YellowUnTriHealth Bethesda North HospitalComment on above:Order Comment: Microscopics not performed on urines with negative chemical reactions unless requested on original order.Performed By: #### [id number] ####[facility] ([facility])[address] [place], [place] [address]YFNNAXN (MG/DL) IN URINE NormalNormalNormalUniversVeterans Health AdministrationComment on above:Order Comment: Microscopics not performed on urines with negative chemical reactions unless requested on original order.Performed By: #### [id number] ####[facility] ([facility])[address] [place], [place] [address]BNVIHQYBHD PRESENCE IN URINE NegativeNormalNegativeUnTriHealth Bethesda North HospitalComment on above:Order Comment: Microscopics not performed on urines with negative chemical reactions unless requested on original order.Performed By: #### [id number] ####[facility] ([facility])[address] [place], [place] [address]Sxrmdzy Ql (U)NegativeNormal NegativeUnTriHealth Bethesda North HospitalComment on above:Order Comment: Microscopics not performed on urines with negative chemical reactions unless requested on original order.Performed By: #### [id number] ####[facility] ([facility])[address] [place], [place] [address]NALHWBKOG ESTERASE PRESENCE IN URINE BY TEST STRIPNegativeNormalNegativeUnTriHealth Bethesda North HospitalComment on above:Order Comment: Microscopics not performed on urines with negative chemical reactions unless requested on original order.Performed By: #### [id number] ####[facility] ([facility])[address] [place], [place] [address]AGRDJOK PRESENCE IN URINENegativeNormalNegativeUnTriHealth Bethesda North HospitalComment on above:Order Comment: Microscopics not performed on urines with negative chemical reactions unless requested on original order.Performed By: #### [id number] ####[facility] ([facility])[address] [place], [place] [address]vX (U)5.0 [pH]Normal 5.0-8.0UnTriHealth Bethesda North HospitalComment on above:Order Comment: Microscopics not performed on urines with negative chemical reactions unless requested on original order.Performed By: #### [id number] ####[facility] ([facility])[address] [place], [place] [address]Tlzzbnc (U) [Mass/Vol]NegativeNormal NegativeUnTriHealth Bethesda North HospitalComment on above:Order Comment: Microscopics not performed on urines with negative chemical reactions unless requested on original order.Performed By: #### [id number] ####[facility] ([facility])[address] [place], [place] [address]Vuwpexra gravity (U) [Rel density] 1.805Gyl9.010-1.030UnTriHealth Bethesda North HospitalComment on above:Order Comment: Microscopics not performed on urines with negative chemical reactions unless requested on original order.Performed By: #### [id number] ####[facility] ([facility])[address] [place], [place] [address]MSMAACLGDTFM (MG/DL) IN URINE NormalNormalNormalUniversVeterans Health AdministrationComment on above:Order Comment: Microscopics not performed on urines with negative chemical reactions unless requested on original order.Performed By: #### [id number] ####[facility] ([facility])[address] [place], [place] [address]rx [id number] patient is Moderately Stable - Low risk of patient condition declining or worsening The patient's goals for the shift include comfort, safety, participate in therapy, The clinical goals for the shift include get stronger, Vss, labs wnl, comfort NormalUnTriHealth Bethesda North HospitalBASIC METABOLIC PANELon 50-33-0039Kospk gap [Moles/Vol]11 mmol/LNormal7-20UnTriHealth Bethesda North HospitalComment on above:Performed By: #### [id number] ####[facility] ([facility])[address] [place], [place] [address]Epuhcxe [Mass/Vol]7.6 mg/dLLow8.6-10.3UnTriHealth Bethesda North HospitalComment on above:Performed By: #### [id number] ####[facility] ([facility])[address] [place], [place] [address]Doracyzz [Moles/Vol]101 mmol/LNormal 98-107UnTriHealth Bethesda North HospitalComment on above:Performed By: #### [id number] ####[facility] ([facility])[address] [place], [place] [address]XC8 [Moles/Vol]28 mmol/UZojjjf53-90UovkhgvlugTriHealth Bethesda North HospitalComment on above:Performed By: #### [id number] ####[facility] ([facility])[address] [place], [place] [address]Qgiaecmmcu [Mass/Vol]0.57 mg/dLLow0.70-1.30UnTriHealth Bethesda North HospitalComment on above:Performed By: #### [id number] ####[facility] ([facility])[address] [place] [id number] FILTRATION RATE ML/MIN/1.73 SQ M.HCOMZWLYE183.6 mL/min/1.73m*2Normal>60.0UnTriHealth Bethesda North HospitalComment on above:Result Comment: [facility]???s estimated glomerular filtration rate (eGFR) will no [...] potential consequences that do not disproportionately affect anyone group of individuals.Performed By: #### [id number] ####[facility] ([facility])[address] [place] [id number] [Mass/Vol]74 mg/mKBxnzxa81-789MaadlxicczTriHealth Bethesda North HospitalComment on above:Performed By: #### [id number] ####[facility] ([facility])[address] [place] [id number] [Moles/Vol]3.7 mmol/LNormal3.5-5.1UnTriHealth Bethesda North HospitalComment on above:Performed By: #### [id number] ####[facility] ([facility])[address] [place] [id number] [Moles/Vol]136 mmol/L Wfevvo798-911QvuytgncpcTriHealth Bethesda North HospitalComment on above:Performed By: #### [id number] ####[facility] ([facility])[address] [place] [id number] nitrogen [Mass/Vol]11 mg/dLNormal7-25UnTriHealth Bethesda North HospitalComment on above:Performed By: #### [id number] ####[facility] ([facility])[address] [place] [id number] NITROGEN/CREATININE (MASS RATIO) IN SER/PLAS19.3Normal [facility] - WestComment on above:Performed By: #### [id number] ####[facility] ([facility])[address] [place] [id number] WITH AUTO DIFFERENTIALon 62-85-6688Sytcxpqkldk distribution width (RBC) [Ratio]14.7 % Pcstbn91.5-15.0UnTriHealth Bethesda North HospitalComment on above:Performed By: #### [id number] ####[facility] ([facility])[address] [place] [id number] ERYTHROCYTE MEAN CORPUSCULAR HEMOGLOBIN CONCENTRATION (G/DL) BY WJVQNHKMG65.3 g/iOZvgnyj64.0-35.0UnTriHealth Bethesda North HospitalComment on above:Performed By: #### [id number] ####[facility] ([facility])[address] [place] [id number] (Bld) [Volume fraction]26.7 %Low39.0-50.0UnTriHealth Bethesda North HospitalComment on above:Performed By: #### [id number] ####[facility] ([facility])[address] [place], [place] [id number] (Bld) [Mass/Vol]8.9 g/dLLow 13.0-17.0UnTriHealth Bethesda North HospitalComment on above:Performed By: #### [id number] ####[facility] ([facility])[address] [place] [id number] (RBC) [Entitic mass]30.8 hzMmlern10.0-33.0Un[facility] Comment on above:Performed By: #### [id number] ####[facility] [place] [id number] (RBC) [Entitic vol]92.4 gBWsnryf99.0-98.0 [facility] WestComment on above:Performed By: #### [id number] ####[facility] ([facility])[address] [place] [id number] (PER 100 WBCS) BY AUTOMATED COUNT0.0 %Ldibtr0GclcdsjkutTriHealth Bethesda North HospitalComment on above:Performed By: #### [id number] ####[facility] ([facility])[address] [place] [id number] (10*3/UL) IN BLOOD AUTOMATED [id number] 10*3/uLNormal 150-400UnTriHealth Bethesda North HospitalComment on above:Performed By: #### [id number] ####[facility] ([facility])[address] [place] [id number] (Bld) [#/Vol]2.89 10*6/uLLow4.20-5.70UnTriHealth Bethesda North HospitalComment on above:Performed By: #### [id number] ####[facility] ([facility])[address] [place] [id number] (Bld) [#/Vol]14.21 10*3/uLHigh4.00-10.60UnTriHealth Bethesda North HospitalComment on above:Performed By: #### [id number] ####[facility] ([facility])[address] [place] [id number] 05-19-2025 Magnesium [Mass/Vol]1.6 mg/dLLow1.9-2.7Un[facility] Comment on above:Performed By: #### [id number] ####[facility] ([facility])[address] [place] [id number] DIFFERENTIALon 12-56-7811ANIQHATKF (10*3/UL) IN BLOOD BY CALCULATION0.03 10*3/uLNormal0.00-0.20UnTriHealth Bethesda North HospitalComment on above:Performed By: #### [id number] ####[facility] ([facility])[address] [place] [id number]/100 LEUKOCYTES IN BLOOD BY AUTOMATED COUNT0.2 %Normal0.0-1.0UnTriHealth Bethesda North HospitalComment on above:Performed By: #### [id number] ####[facility] ([facility])[address] [facility] [id number] (10*3/UL) IN BLOOD BY CALCULATION0.87 10*3/uLHigh 0.00-0.50UnTriHealth Bethesda North HospitalComment on above:Performed By: #### [id number] ####[facility] ([facility])[address] [place] [address] EOSINOPHILS/100 LEUKOCYTES IN BLOOD BY AUTOMATED COUNT6.1 %High0.0-6.0UnTriHealth Bethesda North HospitalComment on above:Performed By: #### [id number] ####[facility] ([facility])[address] [facility] [place] [id number] GRANULOCYTES (10*3/UL) IN BLOOD BY CALCULATION0.18 10*3/uLNormal0.00-0.20UnTriHealth Bethesda North HospitalComment on above:Performed By: #### [id number] ####[facility] ([facility])[address] [place], [place] [id number] GRANULOCYTES/100 LEUKOCYTES IN BLOOD BY AUTOMATED COUNT1.3 %High0.0-1.0Un[facility] Comment on above:Performed By: #### [id number] ####[facility] ([facility])[address] [place], [place] [id number] (10*3/UL) IN BLOOD BY CALCULATION2.64 10*3/uLNormal1.20-4.00UnTriHealth Bethesda North HospitalComment on above: Performed By: #### [id number] ####[facility] ([facility])[address] [facility] [place] [place] [id number]/100 LEUKOCYTES IN BLOOD BY AUTOMATED COUNT18.6 % Low20.0-45.0UnTriHealth Bethesda North HospitalComment on above:Performed By: #### [id number] ####[facility] ([facility])[address] [place] [id number] MONOCYTES (10*3/UL) IN BLOOD BY CALCUATION1.68 10*3/uLHigh0.10-1.00UnTriHealth Bethesda North HospitalComment on above:Performed By: #### [id number] ####[facility] ([facility])[address] [place] [address]OGAURRYES/100 LEUKOCYTES IN BLOOD BY AUTOMATED COUNT11.8 %Normal5.0-12.0UnTriHealth Bethesda North HospitalComment on above:Performed By: #### [id number] ####[facility] ([facility])[address] [place], [place] [address]FGGPLXREBTI (10*3/UL) IN BLOOD BY CALCULATION8.8 10*3/uLHigh1.6-7.6UnTriHealth Bethesda North HospitalComment on above:Performed By: #### [id number] ####[facility] ([facility])[address] [place], [place] [address]MEEDTBUJSOV/100 LEUKOCYTES IN BLOOD BY AUTOMATED COUNT62.0 % Yypphl07.0-72.0UnTriHealth Bethesda North HospitalComment on above:Performed By: #### [id number] ####[facility] ([facility])[address] [place] [address] PHOSPHORUSon 19-88-1459Kbkwqocdu [Mass/Vol]2.7 mg/dLNormal2.5-5.0UnTriHealth Bethesda North HospitalComment on above:Performed By: #### [id number] ####[facility] ([facility])[address] [place] [address]ma 95-52-068529Tul patient is Moderately Stable - Low risk of patient condition declining or worsening The patient's goals for the shift include comfort and safety The clinical goals for the shift include increase strength, vss, comfort, labs wnlNormalUnTriHealth Bethesda North Hospital30NormalUniversVeterans Health AdministrationBASIC METABOLIC PANELon 72-90-9347Vonkq gap [Moles/Vol]8 mmol/LNormal7-20 [facility] WestComment on above:Performed By: #### [id number] ####[facility] ([facility])[address] [place], [place] [address]Wnwuugc [Mass/Vol]7.4 mg/dLLow8.6-10.3UnTriHealth Bethesda North HospitalComment on above:Performed By: #### [id number] ####[facility] ([facility])[address] [place] [id number] [Moles/Vol]100 mmol/CPslvue87-667YoumtzyvodTriHealth Bethesda North HospitalComment on above:Performed By: #### [id number] ####[facility] ([facility])[address] [place] [id number] [Moles/Vol]31 mmol/LNormal 21-31UnTriHealth Bethesda North HospitalComment on above:Performed By: #### [id number] ####[facility] ([facility])[address] [place] [id number] [Mass/Vol]0.54 mg/dLLow0.70-1.30UnTriHealth Bethesda North HospitalComment on above:Performed By: #### [id number] ####[facility] ([facility])[address] [place] [id number] FILTRATION RATE ML/MIN/1.73 SQ M.FFFSDLNIO095.3 mL/min/1.73m*2Normal>60.0UnTriHealth Bethesda North HospitalComment on above: Result Comment: [facility]???s estimated glomerular filtration rate (eGFR) will no [...] potential consequences that do not disproportionately affect anyone group of individuals.Performed By: #### [id number] ####[facility] ([facility])[address] [place] [id number] [Mass/Vol]106 mg/sJOipv00-539UafywyvjeuTriHealth Bethesda North HospitalComment on above:Performed By: #### [id number] ####[facility] ([facility])[address] [place] [id number] [Moles/Vol]3.4 mmol/L Low3.5-5.1UnTriHealth Bethesda North HospitalComment on above:Performed By: #### [id number] ####[facility] ([facility])[address] [place] [id number] [Moles/Vol]136 mmol/WVsblus754-868FbsmpkpxtkTriHealth Bethesda North HospitalComment on above:Performed By: #### [id number] ####[facility] ([facility])[address] [place] [id number] nitrogen [Mass/Vol]11 mg/dLNormal7-25UnTriHealth Bethesda North HospitalComment on above:Performed By: #### [id number] ####[facility] ([facility])[address] [facility] [place] [place] [id number] NITROGEN/CREATININE (MASS RATIO) IN SER/PLAS20.4NormalUniversVeterans Health AdministrationComment on above: Performed By: #### [id number] ####[facility] ([facility])[address] [facility] [place] [id number] WITH AUTO DIFFERENTIALon 31-57-4989Npjkeawur (Bld) [#/Vol]0.03 10*3/uLNormal0.00-0.20UnTriHealth Bethesda North HospitalComment on above: Performed By: #### [id number] ####[facility] ([facility])[address] [place] [id number]/100 WBC (Bld)0.2 %Normal0.0-1.0UnTriHealth Bethes[facility] North HospitalComment on above:Performed By: #### [id number] ####[facility] ([facility])[address] [place] [id number] (Bld) [#/Vol]0.70 10*3/uL High0.00-0.50UnTriHealth [facility] North HospitalComment on above:Performed By: #### [id number] ####[facility] ([facility])[address] [place] [id number] Eosinophils/100 WBC (Bld)5.4 %Normal0.0-6.0Un[facility] Comment on above:Performed By: #### [id number] ####[facility] ([facility])[address] [place], [place] [address]Fqysqbxhpra distribution width (RBC) [Ratio]14.6 % Jvvrgk03.5-15.0UnTriHealth [facility] North HospitalComment on above:Performed By: #### [id number] ####[facility] ([facility])[address] [place] [id number] ERYTHROCYTE MEAN CORPUSCULAR HEMOGLOBIN CONCENTRATION (G/DL) BY QZTUBIOWG09.9 g/kINdzhde14.0-35.0UnTriHealth Bethesda North HospitalComment on above:Performed By: #### [id number] ####[facility] ([facility])[address] [place], [place] [id number] (Bld) [Volume fraction]24.5 %Low39.0-50.0UnTriHealth Bethesda North HospitalComment on above:Performed By: #### [id number] ####[facility] ([facility]AK[facility])[address] [place], [place] [id number] (Bld) [Mass/Vol]8.3 g/dLLow 13.0-17.0UnTriHealth Bethesda North HospitalComment on above:Performed By: #### [id number] ####[facility] ([facility])[address] [place], [place] [id number] granulocytes (Bld) [#/Vol]0.10 10*3/uLNormal0.00-0.20UnTriHealth Bethesda North HospitalComment on above:Performed By: #### [id number] ####[facility] ([facility])[address] [place], [place] [id number] granulocytes/100 WBC (Bld)0.8 %Normal0.0-1.0UnTriHealth Bethesda North HospitalComment on above:Performed By: #### [id number] ####[facility] ([facility])[address] [place] [address] Lymphocytes (Bld) [#/Vol]1.98 10*3/uLNormal1.20-4.00UnTriHealth Bethesda North HospitalComment on above:Performed By: #### [id number] ####[facility] ([facility])[address] [place], [place] [address]Gbgrxehlbwx/100 WBC (Bld)15.3 %Low 20.0-45.0UnTriHealth Bethesda North HospitalComment on above:Performed By: #### [id number] ####[facility] ([facility])[address] [place], [place] [address]BLD (RBC) [Entitic mass]31.0 ksVxswih05.0-33.0Un[facility] Comment on above:Performed By: #### [id number] ####[facility] ([facility])[address] [place], [place] [address]WQR (RBC) [Entitic vol]91.4 kSYecprt04.0-98.0 [facility] - WestComment on above:Performed By: #### [id number] ####[facility] ([facility])[address] [place], [place] [address]Jwibjfjod (Bld) [#/Vol]1.37 10*3/uLHigh0.10-1.00UnTriHealth Bethesda North HospitalComment on above:Performed By: #### [id number] ####[facility] ([facility])[address] [place], [place] [address]Rwpkqnuha/100 WBC (Bld)10.6 %Normal5.0-12.0UnTriHealth Bethesda North HospitalComment on above:Performed By: #### [id number] ####[facility] [place], [place] [address]Zlcxmfbvnrb (Bld) [#/Vol] 8.80 10*3/uLHigh1.60-7.60UnTriHealth Bethesda North HospitalComment on above: Performed By: #### [id number] ####[facility])[address] [place] [address]Izetuutmxlc/100 WBC (Bld)67.7 %Cvyzmm54.0-72.0UnTriHealth Bethesda North HospitalComment on above:Performed By: #### [id number] ####[facility] ([facility])[address] [place] [address]MSTN (PER 100 WBCS) BY AUTOMATED COUNT0.0 %Kqmbhf4ZywonahzqaTriHealth Bethesda North HospitalComment on above: Performed By: #### [id number] ####[facility] ([facility])[address] [place] [address]RFNRPQBQP (10*3/UL) IN BLOOD AUTOMATED [id number] 10*3/uLNormal 150-400UnTriHealth Bethesda North HospitalComment on above:Performed By: #### [id number] ####[facility] ([facility])[address] [place] [address]PID (Bld) [#/Vol]2.68 10*6/uLLow4.20-5.70UnTriHealth Bethesda North HospitalComment on above:Performed By: #### [id number] ####[facility] ([facility])[address] [place] [address]IMG (Bld) [#/Vol]12.98 10*3/uLHigh4.00-10.60UnTriHealth Bethesda North HospitalComment on above:Performed By: #### [id number] ####[facility] ([facility])[address] [place] [address]KNOEQMKcr 05-18-2025 CONSULTNormalUniversity ProMedica [facility]iance Regional HospitalMAGNESIUMon 30-59-6833Scyrndqck [Mass/Vol]1.6 mg/dLLow1.9-2.7UnTriHealth Bethesda North HospitalComment on above:Performed By: #### [id number] ####[facility] ([facility])[address] [place] [id number] 46-81-6590Sjviqzocr [Mass/Vol]3.6 mg/dLNormal 2.5-5.0UnTriHealth Bethesda North HospitalComment on above:Performed By: #### [id number] ####[facility] ([facility])[address] [place], [place] [address]26wu 43-51-496863JpcktmRoitkysrcd of [place] Medical CenterBASIC METABOLIC PANELon 05-67-5426Tbmxl gap [Moles/Vol]9 mmol/LNormal7-20UnTriHealth Bethesda North HospitalComment on above:Performed By: #### [id number] ####[facility] ([facility])[address] [place], [place] [address]Dtqmevh [Mass/Vol]7.9 mg/dLLow8.6-10.3 [facility] - WestComment on above:Performed By: #### [id number] ####[facility] ([facility])[address] [place], [place] [address]Hmhwdpas [Moles/Vol]101 mmol/WJevhwr09-178FaeqgrhoqhTriHealth Bethesda North HospitalComment on above:Performed By: #### [id number] ####[facility] ([facility])[address] [place], [place] [address]YM2 [Moles/Vol]29 mmol/NGawllm54-72UiuajkzwvkTriHealth Bethesda North HospitalComment on above:Performed By: #### [id number] ####[facility] ([facility])[address] [place], [place] [address]Asfmgeapmf [Mass/Vol]0.57 mg/dLLow 0.70-1.30UnTriHealth Bethes[facility] North HospitalComment on above:Performed By: #### [id number] ####[facility] ([facility])[address] [place], [place] [address]CFYNCKLBSY FILTRATION RATE ML/MIN/1.73 SQ M.JPUOTGVPS800.6 mL/min/1.73m*2Normal>60.0 [facility] - WestComment on above:Result Comment: [facility]???s estimated glomerular filtration rate (eG FR) will no longer include consideration of race [...] potential consequences that do not disproportionately affect anyone group of individuals. Performed By: #### [id number] ####[facility] ([facility])[address] [place] [id number] [Mass/Vol]103 mg/hHVylz90-321LcwechfjyeTriHealth Bethesda North HospitalComment on above:Performed By: #### [id number] ####[facility] ([facility])[address] [place] [id number] [Moles/Vol]3.6 mmol/LNormal 3.5-5.1UnTriHealth Bethesda North HospitalComment on above:Performed By: #### [id number] ####[facility] ([facility])[address] [place], [place] [address]Swfrxw [Moles/Vol]135 mmol/DCnl202-670RgzeykmdmrTriHealth Bethesda North HospitalComment on above:Performed By: #### [id number] ####[facility] ([facility])[address] [place] [id number] nitrogen [Mass/Vol]14 mg/dLNormal7-25UnTriHealth Bethesda North HospitalComment on above:Performed By: #### [id number] ####[facility] ([facility])[address] [place], [place] [address]ZRXD NITROGEN/CREATININE (MASS RATIO) IN SER/PLAS24.6NormalUniversVeterans Health AdministrationComment on above: Performed By: #### [id number] ####[facility] ([facility])[address] [facility] [place] [place] [id number] WITH AUTO DIFFERENTIALon 62-73-1622Litfczivv (Bld) [#/Vol]0.02 10*3/uLNormal0.00-0.20UnTriHealth Bethes[facility] North HospitalComment on above: Performed By: #### [id number] ####[facility] ([facility])[address] [place], [place] [id number]/100 WBC (Bld)0.2 %Normal0.0-1.0UnTriHealth Bethes[facility] North HospitalComment on above:Performed By: #### [id number] ####[facility] ([facility])[address] [place] [id number] (Bld) [#/Vol]0.22 10*3/uL Normal0.00-0.50UnTriHealth Bethesda North HospitalComment on above:Performed By: #### [id number] ####[facility] ([facility])[address] [place] [id number] Eosinophils/100 WBC (Bld)1.7 %Normal0.0-6.0Un[facility] Comment on above:Performed By: #### [id number] ####[facility] ([facility])[address] [place], [place] [id number] distribution width (RBC) [Ratio]14.5 % Vjczga65.5-15.0UnTriHealth Bethesda North HospitalComment on above:Performed By: #### [id number] ####[facility] ([facility])[address] [place] [id number] ERYTHROCYTE MEAN CORPUSCULAR HEMOGLOBIN CONCENTRATION (G/DL) BY EKCIWWYVY87.3 g/jNAdqjrd24.0-35.0UnTriHealth Bethes[facility] North HospitalComment on above:Performed By: #### [id number] ####[facility] ([facility])[address] [place], [place] [id number] (Bld) [Volume fraction]25.2 %Low39.0-50.0UnTriHealth Bethes[facility] North HospitalComment on above:Performed By: #### [id number] ####[facility] ([facility])[address] [place], [place] [id number] (Bld) [Mass/Vol]8.4 g/dLLow 13.0-17.0UnTriHealth Bethes[facility] North HospitalComment on above:Performed By: #### [id number] ####[facility] ([facility] [place] [place] [id number] granulocytes (Bld) [#/Vol]0.07 10*3/uLNormal0.00-0.20UnTriHealth Bethes[facility] North HospitalComment on above:Performed By: #### [id number] ####[facility] ([facility])[address] [place], [place] [address]Vjfuanfc granulocytes/100 WBC (Bld)0.6 %Normal0.0-1.0UnTriHealth Bethes[facility] North HospitalComment on above:Performed By: #### [id number] ####[facility] ([facility])[address] [place] [address] Lymphocytes (Bld) [#/Vol]1.46 10*3/uLNormal1.20-4.00UnTriHealth Bethes[facility] North HospitalComment on above:Performed By: #### [id number] ####[facility] ([facility])[address] [place], [place] [address]Thrfzphetix/100 WBC (Bld)11.5 %Low 20.0-45.0UnTriHealth Bethes[facility] North HospitalComment on above:Performed By: #### [id number] ####[facility] ([facility])[address] [place], [place] [address]ZIA (RBC) [Entitic mass]30.4 giEaidku98.0-33.0Un[facility] Comment on above:Performed By: #### [id number] ####[facility] ([facility])[address] [place], [place] [address]IJC (RBC) [Entitic vol]91.3 oZStzvoa91.0-98.0 [facility] - WestComment on above:Performed By: #### [id number] ####[facility] ([facility])[address] [facility] [place] [id number] (Bld) [#/Vol]1.30 10*3/uLHigh0.10-1.00UnTriHealth Bethes[facility] North HospitalComment on above:Performed By: #### [id number] ####[facility] ([facility])[address] [place] [address]Hjdnikzsl/100 WBC (Bld)10.2 %Normal5.0-12.0[facility] - WestComment on above:Performed By: #### [id number] ####[facility] ([facility])[address] [place] [address]Qcbjzjrmerl (Bld) [#/Vol] 9.65 10*3/uLHigh1.60-7.60UnTriHealth Bethes[facility] North HospitalComment on above: Performed By: #### [id number] ####[facility] ([facility])[address] [place] [address]Bhvfkkwirzz/100 WBC (Bld)75.8 %High40.0-72.0UnTriHealth Bethes[facility] North HospitalComment on above:Performed By: #### [id number] ####[facility] ([facility])[address] [place] [address]LTHO (PER 100 WBCS) BY AUTOMATED COUNT0.0 %Qeppmm3LtypicverdTriHealth Bethesda North HospitalComment on above: Performed By: #### [id number] ####[facility] ([facility])[address] [place] [address]KHVIHNQZZ (10*3/UL) IN BLOOD AUTOMATED [id number] 10*3/uLLow 150-400UnTriHealth Bethesda North HospitalComment on above:Performed By: #### [id number] ####[facility] ([facility])[address] [place] [address]FWE (Bld) [#/Vol]2.76 10*6/uLLow4.20-5.70UnTriHealth Bethesda North HospitalComment on above:Performed By: #### [id number] ####[facility] ([facility])[address] [place] [address]ZSC (Bld) [#/Vol]12.72 10*3/uLHigh4.00-10.60UnTriHealth Bethes[facility] North HospitalComment on above:Performed By: #### [id number] ####[facility] ([facility])[address] [place], [place] [address]MDYXOKMUUxe 05-17-2025 Magnesium [Mass/Vol]1.6 mg/dLLow1.9-2.7Un[facility] Comment on above:Performed By: #### [id number] ####[facility] ([facility])[address] [place], [place] [address]HFMEWGQAXAao 75-10-6532Erczbbcsa [Mass/Vol]2.8 mg/dLNormal2.5-5.0UnTriHealth Bethesda North HospitalComment on above:Performed By: #### [id number] ####[facility] ([facility])[address] [place] [address] 30on 55-19-[address]907AmbhirUrosbrtdys of [place] Medical CenterBASIC METABOLIC PANEL on 41-42-9075Wpffe gap [Moles/Vol]8 mmol/LNormal7-20UnTriHealth Bethesda North HospitalComment on above:Performed By: #### [id number] ####[facility] ([facility])[address] [place], [place] [address]Sktnslu [Mass/Vol]7.9 mg/dLLow8.6-10.3 [facility] WestComment on above:Performed By: #### [id number] ####[facility] ([facility])[address] [place], [place] [address]Noizdirl [Moles/Vol]102 mmol/VNevryi33-119AkuqnnmlxdTriHealth Bethesda North HospitalComment on above:Performed By: #### [id number] ####[facility] ([facility])[address] [place], [place] [address]WV2 [Moles/Vol]31 mmol/OSddkhz03-12HwkfzjyhpdTriHealth Bethesda North HospitalComment on above:Performed By: #### [id number] ####[facility] ([facility])[address] [place], [place] [address]Htcggftajq [Mass/Vol]0.65 mg/dLLow 0.70-1.30UnTriHealth Bethesda North HospitalComment on above:Performed By: #### [id number] ####[facility] ([facility])[address] [place] [id number] FILTRATION RATE ML/MIN/1.73 SQ M.KMCVNNOJA60.7 mL/min/1.73m*2Normal>60.0 [facility] - WestComment on above:Result Comment: [facility]???s estimated glomerular filtration rate (eG FR) will no longer include consideration of race [...] potential consequences that do not disproportionately affect anyone group of individuals. Performed By: #### [id number] ####[facility] ([facility])[address] [place] [id number] [Mass/Vol]102 mg/dHDxpb44-794VxondowjehTriHealth Bethesda North HospitalComment on above:Performed By: #### [id number] ####[facility] ([facility])[address] [place] [id number] [Moles/Vol]3.8 mmol/LNormal 3.5-5.1UnTriHealth Bethesda North HospitalComment on above:Performed By: #### [id number] ####[facility] ([facility])[address] [place] [id number] [Moles/Vol]137 mmol/NAxsxcr206-365BtrzmpxyrdTriHealth Bethesda North HospitalComment on above:Performed By: #### [id number] ####[facility] ([facility])[address] [place], [place] [id number] nitrogen [Mass/Vol]13 mg/dLNormal7-25UnTriHealth Bethesda North HospitalComment on above:Performed By: #### [id number] ####[facility] ([facility])[address] [place] [id number] NITROGEN/CREATININE (MASS RATIO) IN SER/PLAS20.0NormalUniversity of Farnsworth Medical CenterComment on above: Performed By: #### [id number] ####[facility] ([facility])[address] [place] [id number] WITH AUTO DIFFERENTIALon 36-21-1061Ctrvzmuut (Bld) [#/Vol]0.03 10*3/uLNormal0.00-0.20UnTriHealth Bethes[facility] North HospitalComment on above: Performed By: #### [id number] ####[facility] ([facility])[address] [place] [id number]/100 WBC (Bld)0.2 %Normal0.0-1.0UnTriHealth Bethesda North HospitalComment on above:Performed By: #### [id number] ####[facility] ([facility])[address] [place] [id number] (Bld) [#/Vol]0.28 10*3/uL Normal0.00-0.50UnTriHealth Bethesda North HospitalComment on above:Performed By: #### [id number] ####[facility] ([facility])[address] [place] [id number] Eosinophils/100 WBC (Bld)1.9 %Normal0.0-6.0Un[facility] Comment on above:Performed By: #### [id number] ####[facility] ([facility])[address] [place], [place] [id number] distribution width (RBC) [Ratio]14.3 % Dxqvpc22.5-15.0UnTriHealth Bethesda North HospitalComment on above:Performed By: #### [id number] ####[facility] ([facility] [place] [id number] ERYTHROCYTE MEAN CORPUSCULAR HEMOGLOBIN CONCENTRATION (G/DL) BY FMQRMGQAI62.7 g/lXPdgnpy33.0-35.0UnTriHealth Bethesda North HospitalComment on above:Performed By: #### [id number] ####[facility] ([facility])[address] [place], [place] [id number] (Bld) [Volume fraction]25.1 %Low39.0-50.0UnTriHealth Bethesda North HospitalComment on above:Performed By: #### [id number] ####[facility] ([facility])[address] [facility] [place] [id number] (Bld) [Mass/Vol]8.7 g/dLLow 13.0-17.0UnTriHealth Bethesda North HospitalComment on above:Performed By: #### [id number] ####[facility] ([facility])[address] [place], [place] [address]Vbmlorup granulocytes (Bld) [#/Vol]0.07 10*3/uLNormal0.00-0.20UnTriHealth Bethes[facility] North HospitalComment on above:Performed By: #### [id number] ####[facility] ([facility])[address] [place], [place] [address]Yvdcpdht granulocytes/100 WBC (Bld)0.5 %Normal0.0-1.0UnTriHealth Bethesda North HospitalComment on above:Performed By: #### [id number] ####[facility] ([facility]AKER)[address] [place] [place] [id number] IMMATURE PLATELET FRACTION %8.4 %High0.8-6.3Un[facility] Comment on above:Performed By: #### [id number] ####[facility] ([facility])[address] [facility] [place] [id number] (Bld) [#/Vol]1.77 10*3/uLNormal 1.20-4.00UnTriHealth Bethesda North HospitalComment on above:Performed By: #### [id number] ####[facility] ([facility])[address] [facility] [place] [id number] Lymphocytes/100 WBC (Bld)12.3 %Low20.0-45.0Un[facility] Comment on above:Performed By: #### [id number] ####[facility] ([facility])[address] [facility], [place] [id number] (RBC) [Entitic mass]31.6 pgTtmzvs63.0-33.0 [facility] - WestComment on above:Performed By: #### [id number] ####[facility] ([facility]ER)[address] [place] [id number] (RBC) [Entitic vol]91.3 yHBaibgf88.0-98.0UnTriHealth Bethesda North HospitalComment on above:Performed By: #### [id number] ####[facility] ([facility])[address] [place] [id number] (Bld) [#/Vol]1.32 10*3/uLHigh0.10-1.00UnTriHealth Bethesda North HospitalComment on above:Performed By: #### [id number] ####[facility] ([facility]ER)[address] [place] [id number]/100 WBC (Bld) 9.2 %Normal5.0-12.0UnTriHealth Bethesda North HospitalComment on above:Performed By: #### [id number] ####[facility] ([facility]ER)[address] [place] [id number] (Bld) [#/Vol]10.91 10*3/uLHigh1.60-7.60UnTriHealth Bethesda North HospitalComment on above:Performed By: #### [id number] ####[facility] ([facility])[address] [place] [id number]/100 WBC (Bld)75.9 %High 40.0-72.0UnTriHealth Bethesda North HospitalComment on above:Performed By: #### [id number] ####[facility] ([facility])[address] [place] [id number] (PER 100 WBCS) BY AUTOMATED COUNT0.0 %Cggrxv1YwjrnmqgspTriHealth Bethesda North Hospital Comment on above:Performed By: #### [id number] ####[facility] ([facility])[address] [place] [id number] (10*3/UL) IN BLOOD AUTOMATED [id number] 10*3/rXYmh895-821TqtjjzmzzdTriHealth Bethesda North HospitalComment on above:Performed By: #### [id number] ####[facility] ([facility])[address] [place] [id number] (Bld) [#/Vol]2.75 10*6/uLLow4.20-5.70UnTriHealth Bethesda North HospitalComment on above:Performed By: #### [id number] ####[facility] ([facility])[address] [place] [id number] (Bld) [#/Vol]14.38 10*3/uLHigh 4.00-10.60UnTriHealth Bethesda North HospitalComment on above:Performed By: #### [id number] ####[facility] ([facility])[address] [place] [id number] MAGNESIUMon 57-24-4947Rfhoxbada [Mass/Vol]1.8 mg/dLLow1.9-2.7UnTriHealth Bethesda North HospitalComment on above:Performed By: #### [id number] ####[facility] ([facility])[address] [place] [id number] BLOOD X 1, STOOLon 11-17-8417MUWEASHGUJ GASTROINTESTINAL PRESENCE IN STOOLPositiveAbnormal Negative, None DetectedUnTriHealth Bethesda North HospitalComment on above: Performed By: #### [id number] ####[facility] ([facility])[address] [place] [id number] 50-82-1821Hruhzcmpa [Mass/Vol]2.7 mg/dLNormal 2.5-5.0UnTriHealth Bethesda North HospitalComment on above:Performed By: #### [id number] ####[facility] ([facility])[address] [place] [id number] [id number] of [facility] [facility] Lerdbo08WnrikiFionhlgscoVeterans Health AdministrationBASIC METABOLIC PANELon 84-35-1420Wjxco gap [Moles/Vol]7 mmol/LNormal7-20UnTriHealth Bethesda North HospitalComment on above:Performed By: #### [id number] ####[facility] ([facility])[address] [place] [address] Calcium [Mass/Vol]7.7 mg/dLLow8.6-10.3UnTriHealth Bethesda North HospitalComment on above:Performed By: #### [id number] ####[facility] ([facility])[address] [place], [place] [address]Cfmukqij [Moles/Vol]103 mmol/TMidwpo03-531TrpompqkxmTriHealth Bethesda North HospitalComment on above:Performed By: #### [id number] ####[facility] ([facility])[address] [place], [place] [address]DD0 [Moles/Vol]30 mmol/LNormal 21-31UnTriHealth Bethes[facility] North HospitalComment on above:Performed By: #### [id number] ####[facility] ([facility])[address] [place], [place] [address]Tebutcupdu [Mass/Vol]0.63 mg/dLLow0.70-1.30UnTriHealth Bethes[facility] North HospitalComment on above:Performed By: #### [id number] ####[facility] ([facility])[address] [place], [place] [address]ATTNYAAXIH FILTRATION RATE ML/MIN/1.73 SQ M.VDNDAFYTT77.6 mL/min/1.73m*2Normal>60.0UnTriHealth Bethesda North HospitalComment on above: Result Comment: [facility]???s estimated glomerular filtration rate (eGFR) will no [...] potential consequences that do not disproportionately affect anyone group of individuals.Performed By: #### [id number] ####[facility] ([facility])[address] [place], [place] [address]Awoqdla [Mass/Vol]81 mg/tCFomajh07-038LuvdvnseyvTriHealth Bethesda North HospitalComment on above:Performed By: #### [id number] ####[facility] ([facility])[address] [place], [place] [address]Ugmedzxvx [Moles/Vol]4.0 mmol/LNormal3.5-5.1UnTriHealth Bethes[facility] North HospitalComment on above:Performed By: #### [id number] ####[facility] ([facility])[address] [place] [address] Sodium [Moles/Vol]136 mmol/WUlnuin854-151VlihqmvzrtTriHealth Bethesda North Hospital Comment on above:Performed By: #### [id number] ####[facility] ([facility])[address] [place], [place] [address]Gind nitrogen [Mass/Vol]13 mg/dLNormal7-25 [facility] WestComment on above:Performed By: #### [id number] ####[facility] ([facility])[address] [place], [place] [address]JDSB NITROGEN/CREATININE (MASS RATIO) IN SER/PLAS20.6NormalUniversVeterans Health AdministrationComment on above:Performed By: #### [id number] ####[facility] ([facility])[address] [place], [place] [address]IHC WITH AUTO DIFFERENTIALon 17-37-1990Pbimyjjqttk distribution width (RBC) [Ratio]14.6 %Vvbxmo74.5-15.0 [facility] WestComment on above:Performed By: #### [id number] ####[facility] ([facility])[address] [place], [place] [address]YIQRINOPLPQ MEAN CORPUSCULAR HEMOGLOBIN CONCENTRATION (G/DL) BY XTKVWVGFX32.4 g/dLNormal 32.0-35.0UnTriHealth Bethesda North HospitalComment on above:Performed By: #### [id number] ####[facility] ([facility])[address] [place] [address] Hematocrit (Bld) [Volume fraction]27.0 %Low39.0-50.0UnTriHealth Bethesda North HospitalComment on above:Performed By: #### [id number] ####[facility] ([facility])[address] [place] [id number] (Bld) [Mass/Vol]9.3 g/dLLow 13.0-17.0UnTriHealth Bethesda North HospitalComment on above:Performed By: #### [id number] ####[facility] ([facility])[address] [place] [id number] PLATELET FRACTION %8.9 %High0.8-6.3UnTriHealth Bethesda North HospitalComment on above:Performed By: #### [id number] ####[facility] ([facility])[address] [place] [id number] (RBC) [Entitic mass]32.4 vwOuwdfh27.0-33.0UnTriHealth Bethesda North HospitalComment on above:Performed By: #### [id number] ####[facility] ([facility])[address] [place] [id number] (RBC) [Entitic vol] 94.1 rILwsqbs84.0-98.0UnTriHealth Bethesda North HospitalComment on above: Performed By: #### [id number] ####[facility] ([facility])[address] [place] [id number] (PER 100 WBCS) BY AUTOMATED COUNT0.0 %Bdkebe5VrnievcuzpTriHealth Bethesda North HospitalComment on above:Performed By: #### [id number] ####[facility] ([facility])[address] [place] [id number] (10*3/UL) IN BLOOD AUTOMATED [id number] 10*3/aSVjb809-419OlhygcfeavTriHealth Bethesda North Hospital Comment on above:Performed By: #### [id number] ####[facility] ([facility])[address] [place] [id number] (Bld) [#/Vol]2.87 10*6/uLLow4.20-5.70[facility]arnsworth Medical CenterComment on above:Performed By: #### [id number] ####[facility] ([facility])[address] [place] [id number] (Bld) [#/Vol]16.37 10*3/uLHigh4.00-10.60UnTriHealth Bethesda North HospitalComment on above: Performed By: #### [id number] ####[facility] ([facility])[address] [place] [id number] 28-30-9086Llhuorjed [Mass/Vol]1.7 mg/dLLow1.9-2.7 [facility] - WestComment on above:Performed By: #### [id number] ####[facility] ([facility])[address] [place] [id number] DIFFERENTIALon 20-73-9312MFSLQZQEK (10*3/UL) IN BLOOD BY CALCULATION0.07 10*3/uL Normal0.00-0.20UnTriHealth Bethesda North HospitalComment on above:Performed By: #### [id number] ####[facility] ([facility])[address] [place] [id number] BASOPHILS/100 LEUKOCYTES IN BLOOD BY AUTOMATED COUNT0.4 %Normal0.0-1.0UnTriHealth Bethesda North HospitalComment on above:Performed By: #### [id number] ####[facility] ([facility])[address] [place] [id number] (10*3/UL) IN BLOOD BY CALCULATION0.34 10*3/uLNormal0.00-0.50UnTriHealth Bethesda North HospitalComment on above:Performed By: #### [id number] ####[facility] ([facility])[address] [id number]/100 LEUKOCYTES IN BLOOD BY AUTOMATED COUNT2.1 %Normal0.0-6.0UnTriHealth Bethesda North HospitalComment on above:Performed By: #### [id number] ####[facility] ([facility])[address] [place] [id number] GRANULOCYTES (10*3/UL) IN BLOOD BY CALCULATION0.08 10*3/uLNormal0.00-0.20UnTriHealth Bethesda North HospitalComment on above: Performed By: #### [id number] ####[facility] ([facility])[address] [place] [id number] GRANULOCYTES/100 LEUKOCYTES IN BLOOD BY AUTOMATED COUNT0.5 %Normal0.0-1.0UnTriHealth Bethesda North HospitalComment on above: Performed By: #### [id number] ####[facility] ([facility])[address] [id number] (10*3/UL) IN BLOOD BY CALCULATION2.57 10*3/uL Normal1.20-4.00UnTriHealth Bethesda North HospitalComment on above:Performed By: #### [id number] ####[facility] ([facility])[address] [place] [id number] LYMPHOCYTES/100 LEUKOCYTES IN BLOOD BY AUTOMATED COUNT15.7 %Low20.0-45.0 [facility] WestComment on above:Performed By: #### [id number] ####[facility] ([facility])[address] [id number] (10*3/UL) IN BLOOD BY CALCUATION1.77 10*3/uLHigh0.10-1.00UnTriHealth Bethesda North HospitalComment on above:Performed By: #### [id number] ####[facility] ([facility])[address] [id number]/100 LEUKOCYTES IN BLOOD BY AUTOMATED COUNT10.8 %Normal5.0-12.0UnTriHealth Bethesda North HospitalComment on above:Performed By: #### [id number] ####[facility] ([facility])[address] [id number] (10*3/UL) IN BLOOD BY MATCQCZYUNP97.5 10*3/uLHigh 1.6-7.6UnTriHealth Bethesda North HospitalComment on above:Performed By: #### [id number] ####[facility] ([facility])[address] [place] [id number] NEUTROPHILS/100 LEUKOCYTES IN BLOOD BY AUTOMATED COUNT70.5 %Dcwljs90.0-72.0 [facility] WestComment on above:Performed By: #### [id number] ####[facility] ([facility])[address] [place] [address]YBVMGNLIel 27-75-2439WEVNDVGTFpkjnlAzfzjyquth of [place] Medical CenterNURSNOTOhioHealth Pickerington Methodist HospitalNURSNOTENormalUniversVeterans Health AdministrationPHOSPHORUSon 85-87-0690Kjdmihnfx [Mass/Vol]1.9 mg/dLLow2.5-5.0UnTriHealth Bethesda North HospitalComment on above:Performed By: #### [id number] ####[facility] ([facility])[address] [place] ID [id number] [id number] Health Institute30NormalUniBellevue Hospital BASIC METABOLIC PANELon 91-54-5746Wfend gap [Moles/Vol]6 mmol/LLow7-20UnTriHealth Bethesda North HospitalComment on above:Performed By: #### [id number] ####[facility] ([facility])[address] [place] [id number] [Mass/Vol]7.7 mg/dLLow8.6-10.3UnTriHealth Bethesda North HospitalComment on above:Performed By: #### [id number] ####[facility] ([facility])[address] [place] [id number] Chloride [Moles/Vol]106 mmol/BXmlazn46-599PtupdnnubuTriHealth Bethesda North Hospital Comment on above:Performed By: #### [id number] ####[facility] ([facility])[address] [place] [id number] [Moles/Vol]30 mmol/GCaxoqr10-61DccbqkmpwlTriHealth Bethesda North HospitalComment on above:Performed By: #### [id number] ####[facility] ([facility])[address] [place] [id number] [Mass/Vol]0.71 mg/dL Normal0.70-1.30UnTriHealth Bethesda North HospitalComment on above:Performed By: #### [id number] ####[facility] ([facility])[address] [place] [id number] GLOMERULAR FILTRATION RATE ML/MIN/1.73 SQ M.WEPSGYSDY80.1 mL/min/1.73m*2Normal >60.0UnTriHealth Bethesda North HospitalComment on above:Result Comment: [facility]???s estimated glomerular filtration rate (eG FR) will no longer include consideration of race [...] potential consequences that do not disproportionately affect anyone group of individuals. Performed By: #### [id number] ####[facility] ([facility])[address] [place] [id number] [Mass/Vol]91 mg/bDSnumgd52-861RudsgrzzydTriHealth Bethesda North HospitalComment on above:Performed By: #### [id number] ####[facility] ([facility])[address] [id number] [Moles/Vol]4.4 mmol/LNormal 3.5-5.1UnTriHealth Bethesda North HospitalComment on above:Performed By: #### [id number] ####[facility] ([facility])[address] [id number] [Moles/Vol]138 mmol/WEaobgm835-100JnctfwjvnrTriHealth Bethesda North HospitalComment on above:Performed By: #### [id number] ####[facility] ([facility])[address] [place] [id number] nitrogen [Mass/Vol]16 mg/dLNormal7-25UnTriHealth Bethesda North HospitalComment on above:Performed By: #### [id number] ####[facility] ([facility])[address] [place], [place] [address]EXPA NITROGEN/CREATININE (MASS RATIO) IN SER/PLAS22.5NormalUniversVeterans Health AdministrationComment on above: Performed By: #### [id number] ####[facility] ([facility])[address] [place] [id number] WITH AUTO DIFFERENTIALon 14-45-7557Vefbbmswunc distribution width (RBC) [Ratio]14.6 %Qllktg74.5-15.0UnTriHealth Bethesda North HospitalComment on above:Performed By: #### [id number] ####[facility] ([facility])[address] [place], [place] [id number] MEAN CORPUSCULAR HEMOGLOBIN CONCENTRATION (G/DL) BY TONJMMLAA39.1 g/iKSfpjgp28.0-35.0UnTriHealth Bethesda North HospitalComment on above:Performed By: #### [id number] ####[facility] ([facility])[address] [place], [place] [address]Thsmqmspmx (Bld) [Volume fraction]29.9 %Low39.0-50.0 [facility] WestComment on above:Performed By: #### [id number] ####[facility] ([facility])[address] [place], [place] [address]Iqnkaekjjx (Bld) [Mass/Vol]9.9 g/dLLow13.0-17.0UnTriHealth Bethesda North HospitalComment on above:Performed By: #### [id number] ####[facility] ([facility])[address] [place], [place] [address]LZX (RBC) [Entitic mass]30.5 eyMmfqtk41.0-33.0UnTriHealth Bethesda North HospitalComment on above:Performed By: #### [id number] ####[facility] ([facility])[address] [place], [place] [address]CPS (RBC) [Entitic vol] 92.0 bWMbtibe00.0-98.0UnTriHealth Bethesda North HospitalComment on above: Performed By: #### [id number] ####[facility] ([facility])[address] [place] [id number] (PER 100 WBCS) BY AUTOMATED COUNT0.0 %Xblbsv8PndhhbecdjTriHealth Bethesda North HospitalComment on above:Performed By: #### [id number] ####[facility] ([facility])[address] [place] [id number] (10*3/UL) IN BLOOD AUTOMATED [id number] 10*3/jFCck583-625BpeyyxfwqeTriHealth Bethesda North Hospital Comment on above:Performed By: #### [id number] ####[facility] ([facility])[address] [place] [id number] (Bld) [#/Vol]3.25 10*6/uLLow4.20-5.70UnTriHealth Bethesda North HospitalComment on above:Performed By: #### [id number] ####[facility] ([facility])[address] [place] [id number] (Bld) [#/Vol]18.84 10*3/uLHigh4.00-10.60UnTriHealth Bethesda North HospitalComment on above: Performed By: #### [id number] ####[facility] ([facility])[address] [place], [place] [address]THCQK Con 32-25-7827EMXPI C A1061 dvSzjvea69-56ZjdtoqaiwpTriHealth Bethesda North HospitalComment on above:Performed By: #### EXTEM C ####[facility] [id number] [place] [address] USAEXTEM C A2068 mmNormal 54-69UnTriHealth Bethesda North HospitalComment on above:Performed By: #### EXTEM C ####[facility] [id number] [place] [address] USAEXT[place] C A551 wtNpmvyp77-02EicxlavbkcTriHealth Bethesda North HospitalComment on above: Performed By: #### EXTEM C ####[facility] [id number] [place] [address] USAEXTEM C CT61 vQywwki52-03VesutxhungTriHealth Bethesda North HospitalComment on above:Performed By: #### EXTEM C ####[facility] [id number] [place] [address] USAEXTEM C ML0 %Normal0-6Un[facility] Hospital Comment on above:Result Comment: RI^Preliminary ResultPerformed By: #### EXTEM C ####[facility] [id number] [place] [place] [address] USAFIBTEM Con 72-77-7921RNYOBT C A1020 mmHigh6-17UnTriHealth Bethesda North HospitalComment on above:Performed By: #### FIBTEM C ####[facility] [id number] [facility] [place] [address] USAFIBTEM C A2022 mmHigh6-18UnTriHealth Bethesda North HospitalComment on above:Performed By: #### FIBTEM C ####[facility] [id number] [place] [place] [address] USAFIBTEM C A518 mmHigh5-16UnTriHealth Bethesda North HospitalComment on above:Performed By: #### FIBTEM C ####[facility] [id number] [place] [place] [address] USAHEMOGLOBIN AND HEMATOCRIT, BLOODon 27-93-4673Yupangrcfm (Bld) [Volume fraction]30.6 %Low 39.0-50.0UnTriHealth Bethesda North HospitalComment on above:Performed By: #### [id number] ####[facility] ([facility])[address] [place] [place] [address] Hemoglobin (Bld) [Mass/Vol]10.3 g/dLLow13.0-17.0UnTriHealth Bethesda North HospitalComment on above:Performed By: #### [id number] ####[facility] ([facility])[address] [facility], [place] [id number] Con 11-87-5271MWWJEG C A1059 mm Iigzhu34-35MvxwyjuheoTriHealth Bethesda North HospitalComment on above:Performed By: #### HEPTEM C ####[facility] [id number] [place] [address] [place] HEPTEM C A2066 nkOyovjg24-81UucwewtvhgTriHealth Bethesda North HospitalComment on above: Performed By: #### HEPTEM C ####[facility] [id number] [place] [address] USAHEPTEM C A548 klIffost43-14FpcdchgfzlTriHealth Bethesda North HospitalComment on above:Performed By: #### HEPTEM C ####[facility] [id number] [place] [address] USAHEPTEM C CT157 tWvsmyi733-214 [facility] - WestComment on above:Performed By: #### HEPTEM C ####[facility] [id number] [place] [address] USAINTEM Con 45-77-5010CZIZP C A1060 owAmljte09-04GuorjwhsatTriHealth Bethesda North HospitalComment on above:Performed By: #### INTEM C ####[facility] [id number] [place] [address] USAINTEM C A2067 lkHapmwk11-16KkajbgcnmkTriHealth Bethesda North HospitalComment on above:Performed By: #### INTEM C ####[facility] [id number] [place] [address] USAINTEM C A550 myMbfcml37-75 [facility] WestComment on above:Performed By: #### INTEM C ####[facility] [id number] [place] [address] USAINTEM C CT160 aUgwjrw434-210XuqnrunwbsTriHealth Bethesda North HospitalComment on above:Performed By: #### INTEM C ####[facility] [id number] [place] [address] [place] INTEM C ML0 %Normal0-7UnTriHealth Bethesda North HospitalComment on above:Result Comment: RI^Preliminary ResultPerformed By: #### INTEM C ####[facility] [id number] [place] [address] USAMAGNESIUMon 87-56-1359Axwlnudsd [Mass/Vol]1.8 mg/dLLow1.9-2.7UnTriHealth Bethesda North HospitalComment on above:Performed By: #### [id number] ####[facility] ([facility])[address] [place] [id number] DIFFERENTIALon 85-60-1055RZNVDYUVN (10*3/UL) IN BLOOD BY CALCULATION0.00 10*3/uLNormal0.00-0.20Un[facility] Comment on above:Performed By: #### [id number] ####[facility] ([facility])[address] [facility] [place] [id number]/100 LEUKOCYTES IN BLOOD BY AUTOMATED COUNT0.0 %Normal0.0-1.0UnTriHealth Bethesda North HospitalComment on above: Performed By: #### [id number] ####[facility] ([facility])[address] [place], [place] [address]CBRGUAHKTBT (10*3/UL) IN BLOOD BY CALCULATION0.00 10*3/uL Normal0.00-0.50UnTriHealth Bethesda North HospitalComment on above:Performed By: #### [id number] ####[facility] ([facility])[address] [place] [address] EOSINOPHILS/100 LEUKOCYTES IN BLOOD BY AUTOMATED COUNT0.0 %Normal0.0-6.0 [facility] WestComment on above:Performed By: #### [id number] ####[facility] ([facility])[address] [place] [place], [place] [address]YHURFNBD GRANULOCYTES (10*3/UL) IN BLOOD BY CALCULATION0.08 10*3/uLNormal0.00-0.20 [facility] WestComment on above:Performed By: #### [id number] ####[facility] ([facility])[address] [place] [place], [place] [address]SFTIMLMO GRANULOCYTES/100 LEUKOCYTES IN BLOOD BY AUTOMATED COUNT0.4 %Normal0.0-1.0 [facility] WestComment on above:Performed By: #### [id number] ####[facility] ([facility])[address] [place], [place] [address]QATUARTSIZF (10*3/UL) IN BLOOD BY CALCULATION3.24 10*3/uLNormal1.20-4.00UnTriHealth Bethesda North HospitalComment on above:Performed By: #### [id number] ####[facility] ([facility])[address] [place], [place] [address]DSWPQYSGBLY/100 LEUKOCYTES IN BLOOD BY AUTOMATED COUNT17.2 %Low20.0-45.0UnTriHealth Bethesda North HospitalComment on above:Performed By: #### [id number] ####[facility] ([facility])[address], [place] [id number] (10*3/UL) IN BLOOD BY CALCUATION1.13 10*3/uLHigh 0.10-1.00UnTriHealth Bethesda North HospitalComment on above:Performed By: #### [id number] ####[facility] ([facility])[address] [place] [address] MONOCYTES/100 LEUKOCYTES IN BLOOD BY AUTOMATED COUNT6.0 %Normal5.0-12.0 [facility] WestComment on above:Performed By: #### [id number] ####[facility] ([facility])[address] [place], [place] [address]KBEXDZTPZGW (10*3/UL) IN BLOOD BY XACSOLTVRPX72.5 10*3/uLHigh1.6-7.6UnTriHealth Bethesda North HospitalComment on above:Performed By: #### [id number] ####[facility] ([facility])[address] [place] [place], [place] [address]BBZFDYMFBLG/100 LEUKOCYTES IN BLOOD BY AUTOMATED COUNT76.8 %High40.0-72.0UnTriHealth Bethesda North HospitalComment on above:Performed By: #### [id number] ####[facility] ([facility])[address] [place] [address]EIRQMR CELLS/100 LEUKOCYTES IN BLOOD0 %Iudhcc1LkgklqghvzTriHealth Bethesda North HospitalComment on above:Performed By: #### [id number] ####[facility] ([facility])[address] [place] [address]SIGUJPBTR GIANT PRESENCE IN BLOOD BY LIGHT MICROSCOPYPresentNormalUniBellevue Hospital Comment on above:Performed By: #### [id number] ####[facility] ([facility])[address] [place] [address]CPBVVET LYMPHOCYTES (10*3/UL) IN BLOOD BY CALCULATION0.00 10*3/uLNormal0.00UnTriHealth Bethesda North HospitalComment on above:Performed By: #### [id number] ####[facility] ([facility])[address] [place] [address]CPGKXFA LYMPHOCYTES/100 LEUKOCYTES IN BLOOD CELLAVISION0.0 % Normal0.0-0.0UnTriHealth Bethesda North HospitalComment on above:Performed By: #### [id number] ####[facility] ([facility])[address] [place] [address] PHOSPHORUSon 93-48-4300Xwyebczgc [Mass/Vol]2.1 mg/dLLow2.5-5.0UnTriHealth Bethesda North HospitalComment on above:Performed By: #### [id number] ####[facility] ([facility])[address] [place] [id number] 75-03-416646Ucmdcy [facility] Hospital - WestANESon 72-27-9515LDBJZratuvRyofomrnxc of [place] Medical CenterANESNormalUniversVeterans Health AdministrationBASIC METABOLIC PANELon 63-90-9664Hwlnc gap [Moles/Vol]8 mmol/LNormal7-20UnTriHealth Bethesda North HospitalComment on above:Performed By: #### [id number] ####[facility] ([facility])[address] [place] [address]Fbzfbsr [Mass/Vol]7.8 mg/dLLow8.6-10.3UnTriHealth Bethesda North HospitalComment on above:Performed By: #### [id number] ####[facility] ([facility])[address] [place] [id number] Chloride [Moles/Vol]107 mmol/IFgpajk85-434GrkdsphqoxTriHealth Bethesda North Hospital Comment on above:Performed By: #### [id number] ####[facility] ([facility])[address] [place] [id number] [Moles/Vol]27 mmol/OHzfhbt92-73OljejkbozjTriHealth Bethesda North HospitalComment on above:Performed By: #### [id number] ####[facility] ([facility])[address] [place] [id number] [Mass/Vol]0.82 mg/dL Normal0.70-1.30UnTriHealth Bethesda North HospitalComment on above:Performed By: #### [id number] ####[facility] ([facility])[address] [place] [address] GLOMERULAR FILTRATION RATE ML/MIN/1.73 SQ M.QWWXVAGDV19.0 mL/min/1.73m*2Normal >60.0UnTriHealth Bethesda North HospitalComment on above:Result Comment: [facility]???s estimated glomerular filtration rate (eG FR) will no longer include consideration of race [...] potential consequences that do not disproportionately affect anyone group of individuals. Performed By: #### [id number] ####[facility] ([facility])[address] [place] [id number] [Mass/Vol]130 mg/dDBmyj77-841ZqsemfmsrzTriHealth Bethesda North HospitalComment on above:Performed By: #### [id number] ####[facility] ([facility])[address] [place] [id number] [Moles/Vol]4.3 mmol/LNormal 3.5-5.1UnTriHealth Bethesda North HospitalComment on above:Performed By: #### [id number] ####[facility] ([facility])[address] [place], [place] [id number] [Moles/Vol]138 mmol/DZjlbag880-878BbmciecqorTriHealth Bethesda North HospitalComment on above:Performed By: #### [id number] ####[facility] ([facility])[address], [place] [address]Iswn nitrogen [Mass/Vol]12 mg/dLNormal7-25UnTriHealth Bethesda North HospitalComment on above:Performed By: #### [id number] ####[facility] ([facility])[address], [place] [id number] NITROGEN/CREATININE (MASS RATIO) IN SER/PLAS14.6NormalUniversVeterans Health AdministrationComment on above: Performed By: #### [id number] ####[facility] ([facility])[address] [place] [id number] WITH AUTO DIFFERENTIALon 49-30-0734Awfqdgialmc distribution width (RBC) [Ratio]14.4 %Fejskq75.5-15.0UnTriHealth Bethesda North HospitalComment on above:Performed By: #### [id number] ####[facility] ([facility])[address], [place] [id number] MEAN CORPUSCULAR HEMOGLOBIN CONCENTRATION (G/DL) BY RWTBUMTTZ21.4 g/wHGflccq75.0-35.0UnTriHealth Bethesda North HospitalComment on above:Performed By: #### [id number] ####[facility] ([facility])[address], [place] [address]Uoyxgdxoxn (Bld) [Volume fraction]38.1 %Low39.0-50.0 [facility] - WestComment on above:Performed By: #### [id number] ####[facility] ([facility])[address], [place] [address]Vmbufytwnb (Bld) [Mass/Vol]13.1 g/hJJmsrik36.0-17.0UnTriHealth Bethesda North HospitalComment on above:Performed By: #### [id number] ####[facility] ([facility])[address] [place] [id number] PLATELET FRACTION %10.6 %High0.8-6.3UnTriHealth Bethesda North HospitalComment on above:Performed By: #### [id number] ####[facility] ([facility])[address] [place] [id number] (RBC) [Entitic mass] 30.5 upFpdufe16.0-33.0UnTriHealth Bethesda North HospitalComment on above: Performed By: #### [id number] ####[facility] ([facility])[address] [place] [id number] (RBC) [Entitic vol]88.8 nKSpxoxx33.0-98.0UnTriHealth Bethesda North HospitalComment on above:Performed By: #### [id number] ####[facility] ([facility])[address] [place] [id number] (PER 100 WBCS) BY AUTOMATED COUNT0.0 %Idkcje0FxsmrogwhuTriHealth Bethesda North HospitalComment on above: Performed By: #### [id number] ####[facility] ([facility])[address] [id number] (10*3/UL) IN BLOOD AUTOMATED [id number] 10*3/uLLow 150-400UnTriHealth Bethesda North HospitalComment on above:Performed By: #### [id number] ####[facility] ([facility])[address] [place] [id number] (Bld) [#/Vol]4.29 10*6/uLNormal4.20-5.70UnTriHealth Bethesda North Hospital Comment on above:Performed By: #### [id number] ####[facility] ([facility])[address] [id number] (Bld) [#/Vol]25.00 10*3/uLHigh4.00-10.60 [facility] - WestComment on above:Performed By: #### [id number] ####[facility] ([facility])[address] [facility], [place] [id number] - TISSUE EXAMon [id number] AP ADDENDUM 1NormalLake County Memorial Hospital - WestComment on above:Order Comment: Pre-op diagnosis:SBO (small bowel obstruction) (CMS/HCC) [K56.609]Result Comment: To report comment. Comment: Possible etiologies for ischemic type mucosal injury include true ischemic colitis, infection or drug reaction.Addendum electronically signed by Abe Huber MD on 05/14/2025 at 1722 EDTPerformed By: #### [id number] ####[facility] ([facility])[address] [facility], [place] [id number] AP CASE REPORTNormal [facility] - WestComment on above:Order Comment: Pre-op diagnosis:SBO (small bowel obstruction) (CMS/HCC) [K56.609]Result Comment: Surgical Pathology Case: [id number] Provider: Eduardo Pearson MD Collected: 05/13/2025 0200Ordering Location: [address] Received: 05/13/2025 0716Pathologist: NIK Watkinspecimens: A) - Appendix, APPENDIX B) - Small Intestine, Small BowelPerformed By: #### [id number] ####[facility] ([facility])[address] [facility], [place] [id number] AP CLINICAL INFORMATIONNoRiverview Health InstituteComment on above:Order Comment: Pre-op diagnosis:SBO (small bowel obstruction) (CMS/HCC) [K56.609]Result Comment: Post- Op HydipkbseE55.609 - SBO (small bowel obstruction) (CMS/HCC) [ICD-10-CM] Performed By: #### [id number] ####[facility] ([facility])[address] [facility], [place] [id number] AP GROSS DESCRIPTIONA. Appendix.NormalLake County Memorial Hospital - WestComment on above:Order Comment: Pre-op diagnosis:SBO (small bowel obstruction) (CMS/HCC) [K56.609]Result Comment: Received in formalin in a container labeled Darrell Nelson, APPENDIX . It consists of an intact appendix measuring 5.2 cm in length by 0.6 cm in diameter. The attached mesoappendix ext ends up to 2.1 cm from the wall. There is a 1.2 cm in length staple line at the proximal end. An additional detached tubular piece of tissue, presumably true proximal margin, is present measuring 0.9cm in length by 0.7 cm in diameter, with 2 stapled ends.. One end also has embedded sutures.The entirety of the serosa is pink-ruano and smooth. The mucosa is pink-ruano. The lumen measures 0.2 cm and contains fecal material. The wall is pink-ruano and unremarkable with a 0.2 cm average thickness. No perforations, masses, or other lesions are identified. Larry Operator sections are submitted as follows:A1: Distal tip, bisected, and proximal margin, shaveA2: Detached piece of tissue (presumed true proximal margin), inked black, and procurement representative sectionsKelly TERESA Briseno-1Ngriffin Hutchinson, Pathologists' AssistantB. Small Intestine.Received in formalin [...] identified, each measuring up to 0.3 cm. Larry Operator sections are submitted as follows:B1: Stapled margins, shaveB2-3: Small bowel, repre sentativeB4-5: Mesentery, representativeB6: Two possible lymph nodes, intactKelDONNA Liu1NNellie Lay' AssistantPerformed By: #### [id number] ####[facility] ([facility])[address] [place], [place] [address]WFE AP MICROSCOPIC DESCRIPTIONMicroscopic examination performed.NormalUnTriHealth Bethesda North HospitalComment on above:Order Comment: Pre-op diagnosis:SBO (small bowel obstruction) (CMS/HCC) [K56.609]Performed By: #### [id number] ####[facility] ([facility])[address] [id number] AP REPORT FINAL DIAGNOSIS NARRATIVENormalUniversVeterans Health AdministrationComment on above: Order Comment: Pre-op diagnosis:SBO (small bowel obstruction) (CMS/HCC) [K56.609]Result Comment: A. Appendix, appendectomy: - Acute superficial appendicitis.B. Small bowel, resection: - Small bowel mucosa with changes consistent with ischemic type mucosal injury (see comment). - No dysplasia or malignancy identified. - Resection margins viable. - Acute serositis with fibrovascular adhesions. - Two lymph nodes negative for tumor (0/2).Electronically signed by Swapna Watkins 05/14/2025 at 1718 EDT Performed By: #### [id number] ####[facility] ([facility])[address] [place], [place] [address]KAMQYO ACID, PLASMAon 75-82-7436CUXETLB (MMOL/L) IN SER/PLAS 1.0 mmol/LNormal0.5-2.2UnTriHealth Bethesda North HospitalComment on above: Performed By: #### [id number] ####[facility] ([facility])[address] [place], [place] [address]ZELZPVTLGit 57-84-9401Tahuxnogx [Mass/Vol]1.6 mg/dLLow1.9-2.7UnTriHealth Bethesda North HospitalComment on above:Performed By: #### [id number] ####[facility] ([facility])[address] [place], [place] [address]IJZGRV DIFFERENTIALon 21-64-9615CIHZJPICP (10*3/UL) IN BLOOD BY CALCULATION0.03 10*3/uLNormal0.00-0.20 [facility] - WestComment on above:Performed By: #### [id number] ####[facility] ([facility])[address] [place] [id number]/100 LEUKOCYTES IN BLOOD BY AUTOMATED COUNT0.1 %Normal0.0-1.0UnTriHealth Bethesda North HospitalComment on above:Performed By: #### [id number] ####[facility] ([facility])[address] [place] [id number] (10*3/UL) IN BLOOD BY CALCULATION0.00 10*3/uLNormal0.00-0.50UnTriHealth Bethesda North HospitalComment on above:Performed By: #### [id number] ####[facility] ([facility])[address], [place] [id number]/100 LEUKOCYTES IN BLOOD BY AUTOMATED COUNT0.0 %Normal0.0-6.0UnTriHealth Bethesda North HospitalComment on above: Performed By: #### [id number] ####[facility] ([facility])[address] [place] [id number] GRANULOCYTES (10*3/UL) IN BLOOD BY CALCULATION0.13 10*3/uLNormal0.00-0.20UnTriHealth Bethesda North HospitalComment on above: Performed By: #### [id number] ####[facility] ([facility])[address] [id number] GRANULOCYTES/100 LEUKOCYTES IN BLOOD BY AUTOMATED COUNT0.5 %Normal0.0-1.0UnTriHealth Bethesda North HospitalComment on above: Performed By: #### [id number] ####[facility] ([facility])[address] [place] [id number] (10*3/UL) IN BLOOD BY CALCULATION1.15 10*3/uLLow 1.20-4.00UnTriHealth Bethesda North HospitalComment on above:Performed By: #### [id number] ####[facility] ([facility])[address] [place] [id number] LYMPHOCYTES/100 LEUKOCYTES IN BLOOD BY AUTOMATED COUNT4.6 %Low20.0-45.0 [facility] - WestComment on above:Performed By: #### [id number] ####[facility] ([facility])[address] [place] [id number] (10*3/UL) IN BLOOD BY CALCUATION1.58 10*3/uLHigh0.10-1.00UnTriHealth Bethesda North HospitalComment on above:Performed By: #### [id number] ####[facility] ([facility])[address] [place] [id number]/100 LEUKOCYTES IN BLOOD BY AUTOMATED COUNT6.3 %Normal5.0-12.0UnTriHealth Bethesda North HospitalComment on above:Performed By: #### [id number] ####[facility] ([facility])[address] [place] [id number] (10*3/UL) IN BLOOD BY PRSBLTNGVLN31.1 10*3/uLHigh 1.6-7.6UnTriHealth Bethesda North HospitalComment on above:Performed By: #### [id number] ####[facility] ([facility])[address] [place] [id number] NEUTROPHILS/100 LEUKOCYTES IN BLOOD BY AUTOMATED COUNT88.5 %High40.0-72.0 [facility] - WestComment on above:Performed By: #### [id number] ####[facility] ([facility])[address] [place] [id number] 41-59-2890JWQONMGbpjqnYjgabyfezq of [facility] Medical CenterPHOSPHORUSon 05-13-2025 Magnesium [Mass/Vol]2.6 mg/dLNormal2.5-5.0[facility] Comment on above:Performed By: #### [id number] ####[facility] ([facility])[address] [place] [id number]-OSZpm 32-49-2319HLG IN PPP BY COAGULATION ASSAY1.03Pxcr5.90-1.10UnTriHealth Bethesda North HospitalComment on above:Result Comment: ACCCP RECOMMENDED INR FOR WARFARIN THERAPY CONDITION INRPROPHYLAXIS OF VENOUS THROMBOSIS 2-3(HIGH-RISK SURGERY)TREATMENT OF VENOUS THROMBOSIS 2-3TREATMENT OF PULMONARY EMBOLISM 2-3PREVENTION OF SYSTEMIC EMBOLISM: 2-3 ACUTE MYOCARDIAL INFARCTION TISSUE HEART VALVES VALVULAR HEART DISEASE ATRIAL FIBRILLATION RECURRENT SYSTEMIC EMBOLISMMECHANICAL HEART VALVE 2.5-3.5 FROM: ORAL ANTICOAGULANTS. MECHANISM OF ACTION, CLINICAL EFFECTIVENESS, AND OPTIMAL THERAPE UTIC RANGE. CHEST 1995;108:231S-246S.Performed By: #### [id number] ####[facility] [employer])[address] [place], [place] [address]FGIPLSAVPSN TIME (PT) IN PPP BY COAGULATION ASSAY14.4 AhajiwiRtkjow14.3-14.8UnTriHealth Bethesda North HospitalComment on above:Performed By: #### [id number] ####[facility] [employer])[address] [place], [place] [address]Uowpsisvf Auto (Bld) [#/Vol]Ordered By: Joselyn Quachland on 48-27-5332Ccbsxbpik (Bld) [#/Vol]0.1 10 3/uL0.0-0.1 [facility] HospitalBasophils/100 WBC Auto (Bld)Ordered By: Joselyn Quachland on 51-16-0990Cvonfilwp/100 WBC (Bld)0.5 %0.2-2.0[facility] HospitalCB WITH AUTO DIFFERENTIALon 64-59-4397Cokefoapemc distribution width (RBC) [Ratio]14.3 %Zepyuu23.5-15.0UnTriHealth Bethesda North HospitalComment on above:Performed By: #### [id number] ####[facility] [employer])[address] [place], [place] [address]ROPZIVDJOHR MEAN CORPUSCULAR HEMOGLOBIN CONCENTRATION (G/DL) BY OUTXLJKDY06.4 g/wLUuzzwr70.0-35.0UnTriHealth Bethesda North HospitalComment on above:Performed By: #### [id number] ####[facility] ([facility])[address] [place] [id number] (Bld) [Volume fraction]43.6 %Vxwozr55.0-50.0UnTriHealth Bethesda North HospitalComment on above:Performed By: #### [id number] ####[facility] ([facility])[address] [id number] (Bld) [Mass/Vol]15.0 g/wZPalkdv92.0-17.0UnTriHealth Bethesda North HospitalComment on above:Performed By: #### [id number] ####[facility] ([facility])[address] [place] [id number] (RBC) [Entitic mass] 31.1 zjLgdnab15.0-33.0UnTriHealth Bethesda North HospitalComment on above: Performed By: #### [id number] ####[facility] ([facility])[address] [place] [id number] (RBC) [Entitic vol]90.3 uPIksfmv14.0-98.0UnTriHealth Bethesda North HospitalComment on above:Performed By: #### [id number] ####[facility] ([facility])[address] [place] [id number] (PER 100 WBCS) BY AUTOMATED COUNT0.0 %Wgvten8XbvxvpwbhnTriHealth Bethesda North HospitalComment on above: Performed By: #### [id number] ####[facility] ([facility])[address] [place] [id number] (10*3/UL) IN BLOOD AUTOMATED [id number] 10*3/uLLow 150-400UnTriHealth Bethesda North HospitalComment on above:Performed By: #### [id number] ####[facility] ([facility])[address] [place] [address]NXK (Bld) [#/Vol]4.83 10*6/uLNormal4.20-5.70Un[facility] Comment on above:Performed By: #### [id number] ####[facility] ([facility])[address] [place] [address]YTX (Bld) [#/Vol]19.28 10*3/uLHigh4.00-10.60 [facility] - WestComment on above:Performed By: #### [id number] ####[facility] ([facility])[address] [place] [address]FQCPBBHSEHYNQ METABOLIC PANELon 72-76-1761Nmzyioh [Mass/Vol]3.9 g/dLNormal3.5-5.7UnTriHealth Bethesda North HospitalComment on above:Performed By: #### [id number] ####[facility] ([facility])[address] [place] [address]DQB [Catalytic activity/Vol]52 U/THrnbdq25-571DwktnzvvysTriHealth Bethesda North HospitalComment on above:Performed By: #### [id number] ####[facility] ([facility])[address] [place] [address]RIB [Catalytic activity/Vol]12 U/LNormal7-52UnTriHealth Bethesda North HospitalComment on above:Performed By: #### [id number] ####[facility] ([facility])[address] [place] [address]Xylsr gap [Moles/Vol]11 mmol/L Normal7-20UnTriHealth Bethesda North HospitalComment on above:Performed By: #### [id number] ####[facility] ([facility])[address] [place] [address]ALW [Catalytic activity/Vol]22 U/AAhqodn93-90LgkgltdlshTriHealth Bethesda North Hospital Comment on above:Performed By: #### [id number] ####[facility] ([facility])[address] [place] [address]Dxsargbyq [Mass/Vol]0.7 mg/dLNormal0.3-1.0 [facility] - WestComment on above:Performed By: #### [id number] ####[facility] ([facility])[address] [place] [id number] [Mass/Vol]8.6 mg/dLNormal8.6-10.3UnTriHealth Bethesda North HospitalComment on above:Performed By: #### [id number] ####[facility] ([facility])[address] [place] [id number] [Moles/Vol]105 mmol/FAoyuln95-375OfwwhtrxlcTriHealth Bethesda North HospitalComment on above:Performed By: #### [id number] ####[facility] ([facility])[address] [place] [address]SY9 [Moles/Vol]25 mmol/LNormal 21-31UnTriHealth Bethesda North HospitalComment on above:Performed By: #### [id number] ####[facility] ([facility])[address] [place] [id number] [Mass/Vol]0.82 mg/dLNormal0.70-1.30UnTriHealth Bethesda North HospitalComment on above:Performed By: #### [id number] ####[facility] ([facility])[address] [place] [address]ZAALRAYJSQ FILTRATION RATE ML/MIN/1.73 SQ M.BZIDWCBRR54.0 mL/min/1.73m*2Normal>60.0UnTriHealth Bethesda North HospitalComment on above: Result Comment: [facility]???s estimated glomerular filtration rate (eGFR) will no [...] potential consequences that do not disproportionately affect anyone group of individuals.Performed By: #### [id number] ####[facility] ([facility])[address] [place], [place] [address]Bixlztj [Mass/Vol]126 mg/sUIgun40-466CpoueqberhTriHealth Bethesda North HospitalComment on above:Performed By: #### [id number] ####[facility] ([facility])[address] [place], [place] [address]Uhzapunro [Moles/Vol]4.3 mmol/L Normal3.5-5.1UnTriHealth Bethesda North HospitalComment on above:Performed By: #### [id number] ####[facility] ([facility])[address] [place] [address] Protein [Mass/Vol]6.4 g/dLNormal6.0-8.3Un[facility] Comment on above:Performed By: #### [id number] ####[facility] ([facility])[address] [place], [place] [address]Ngzjmg [Moles/Vol]137 mmol/CEhouoh588-973XpschftcgzTriHealth Bethesda North HospitalComment on above:Performed By: #### [id number] ####[facility] ([facility])[address] [place], [place] [address]Spxp nitrogen [Mass/Vol] 12 mg/dLNormal7-25UnTriHealth Bethesda North HospitalComment on above:Performed By: #### [id number] ####[facility] ([facility])[address] [place] [address] UREA NITROGEN/CREATININE (MASS RATIO) IN SER/PLAS14.6NormalUniversVeterans Health AdministrationComment on above:Performed By: #### [id number] ####[facility] ([facility])[address] [place], [place] [address]IB ABDOMEN PELVIS W IV CONTRASTon 27-63-9107FX ABDOMEN PELVIS W IV CONTRASTNormalUniversVeterans Health AdministrationComment on above:Order Comment: And oral contrast pleaseEDPROVon 07-83-5397LWEXOWHyttlvWaxckchnnw of [facility] Medical CenterEosinophils/100 WBC Auto (Bld)Ordered By: Joselyn Perry on 70-50-5818Nwkajmjfjee/100 WBC (Bld) 1.6 %0.9-7.0[facility] HospitalErythrocyte distribution width Auto (RBC) [Ratio]Ordered By: Joselyn Perry on 82-28-6052Odwptculjmn distribution width (RBC) [Ratio]13.9 %11.0-15.0[facility] Globulin Calc (S) [Mass/Vol]Ordered By: Joselyn Perry on 37-12-5333Jdzzerue (S) [Mass/Vol]3.3 g/dLMercy Health – The Jewish HospitalGlomerular filtration rate (GFR) estimation in non- AmericanOrdered By: Joselyn Perry on 43-00-1992BDC/1.73 sq M.predicted among non-blacks MDRD (S/P/Bld) [Vol rate/Area]mL/min/{1.73_m2}>=60 mL/min/1.73m 2FMercy Health St. Elizabeth Youngstown HospitalHP on 00-74-0523XAUviqipXsstxwgkhv of [facility] Medical CenterHematocrit Auto (Bld) [Volume fraction]Ordered By: Joselyn Perry on 09-66-0401Zhbfoavouh (Bld) [Volume fraction]42.6 %42.0-54.0[facility] HospitalHemoglobin [Mass/volume] in BloodOrdered By: Joselyn Perry on 16-67-2855Iztbyjzmxz (Bld) [Mass/Vol]14.5 g/dL14.0-18.0[facility] HospitalLACTIC ACID WITH 4 HOUR REFLEXon 98-31-3654WVQKPLR (MMOL/L) IN SER/PLAS1.0 mmol/LNormal 0.5-2.2UnTriHealth Bethesda North HospitalComment on above:Performed By: #### [id number] ####[facility] (BEAKER)[address] [place] [address] Laboratory - Chemistry and Chemistry - challengeOrdered By: Joselyn Perry on 54-74-5050Lyhbwvhpe Ql (U)NegativeNEGATIVEMercy Health – The Jewish Hospital Glucose (U) [Mass/Vol]NegativeNEGATIVEMercy Health – The Jewish HospitalKetones Ql (U)40 mg/dLAbnormalNEGATIVEMercy Health – The Jewish HospitalpH (U)8.0 [pH] 5.0-9.0[facility] Ridge Medical Centerpecific gravity (U) [Rel density]1.010 1.005-1.025[facility] HospitalUrobilinogen Qn (U)1.0 {Elayne'U}/dL0.2-1.0[facility] HospitalAlbumin [Mass/Vol]3.7 g/dL 3.4-5.0[facility] HospitalALP [Catalytic activity/Vol]64 U/L46-116 [facility] HospitalALT [Catalytic activity/Vol]23 U/L16-63 [facility] HospitalAmylase [Catalytic activity/Vol]54 U/L25-115 [facility] HospitalAST [Catalytic activity/Vol]22 U/L15-37 [facility] HospitalBilirubin [Mass/Vol]0.4 mg/dL0.2-1.0[facility] HospitalCalcium [Mass/Vol]8.9 mg/dL8.5-10.1FMercy Health St. Elizabeth Youngstown HospitalChloride [Moles/Vol]106 mmol/Q50-211ViskkaitlMercy Health – The Jewish HospitalCO2 [Moles/Vol]32.0 mmol/L21.0-32.0[facility] Creatinine [Mass/Vol]1.04 mg/dL0.70-1.30[facility] GFR/1.73 sq M.predicted MDRD (S/P/Bld) [Vol rate/Area]mL/min/{1.73_m2}>=60 mL/min/1.73m 2FM[address]cy Health St[address] Elizabeth Youngstown HospitalGlucose [Mass/Vol]121 mg/dLHigh 74-106Mer[facility] Jewish HospitalLipase [Catalytic activity/Vol]30.0 U/L 16.0-77.0[facility] HospitalPotassium [Moles/Vol]3.4 mmol/LLow 3.5-5.1FMercy Health St. Elizabeth Youngstown HospitalProtein [Mass/Vol]7.0 g/dL6.4-8.2 [facility] Medical Centerodium [Moles/Vol]142 mmol/O642-110DzbvvnumuMercy Health – The Jewish HospitalUrea nitrogen [Mass/Vol]13.0 mg/dL7.0-18.0[facility] HospitalUrea nitrogen/Creatinine [Mass ratio]12.5 mg/mgMercy Health – The Jewish HospitalLaboratory - Hematology and Cell countsOrdered By: Joselyn Perry on 76-49-3417Zgyikhsy granulocytes/100 WBC (Bld)0.2 %0.0-0.5 [facility] HospitalLaboratory - Specimen informationOrdered By: Joselyn Perry on 21-46-9195Rqpbjxoemj (U)CLEARCLEARFMercy Health St. Elizabeth Youngstown HospitalColor (U)YELLOWYELLOWMercy Health – The Jewish HospitalLaboratory - UrinalysisOrdered By: Joselyn Perry on 25-95-3904Fhxpqkqqg esterase Test strip Ql (U)NegativeNEGATIVEMercy Health – The Jewish HospitalMucus Ql (Urine sed)NONE SEENNONE SEENMercy Health – The Jewish HospitalNitrite Ql (U)Negative NEGATIVEMercy Health – The Jewish HospitalProtein Ql (U)TRACE mg/dLNEG/TRACE [facility] HospitalLeukocytes [#/volume] corrected for nucleated erythrocytes in Blood by Automated counOrdered By: Joselyn Perry on 10-73-3559ZGO corrected for nucl RBC Auto (Bld) [#/Vol]12.8 10 3/uLHigh4.0-11.0 [facility] HospitalLymphocytes Auto (Bld) [#/Vol]Ordered By: Joselynnicho Perry on 19-44-7494Akexldzrzpg (Bld) [#/Vol]4.8 10 3/uLHigh1.2-3.8 [facility] HospitalLymphocytes/100 WBC Auto (Bld)Ordered By: Joselynnicho Perry on 76-11-3119Hpuibynkcwy/100 WBC (Bld)37.1 %20.5-60.0 [facility] HospitalMAGNESIUMon 94-22-8458Hbfkozesp [Mass/Vol]1.9 mg/dLNormal1.9-2.7UnTriHealth Bethesda North HospitalComment on above:Performed By: #### [id number] ####[facility] (BEAKER)[address] [place] [address] MANUAL DIFFERENTIALon 06-13-1208DRRCZABBE (10*3/UL) IN BLOOD BY CALCULATION0.04 10*3/uLNormal0.00-0.20UnTriHealth Bethesda North HospitalComment on above: Performed By: #### [id number] ####[facility] ([facility])[address] [facility] [place] [place] [id number]/100 LEUKOCYTES IN BLOOD BY AUTOMATED COUNT0.2 % Normal0.0-1.0UnTriHealth Bethesda North HospitalComment on above:Performed By: #### [id number] ####[facility] ([facility])[address] [place] [address] EOSINOPHILS (10*3/UL) IN BLOOD BY CALCULATION0.00 10*3/uLNormal0.00-0.50 [facility] - WestComment on above:Performed By: #### [id number] ####[facility] ([facility])[address] [place], [place] [address]TAJZVVZRFJS/100 LEUKOCYTES IN BLOOD BY AUTOMATED COUNT0.0 %Normal0.0-6.0UnTriHealth Bethesda North HospitalComment on above:Performed By: #### [id number] ####[facility] ([facility])[address] [place] [place], [place] [address]VFJVIJKQ GRANULOCYTES (10*3/UL) IN BLOOD BY CALCULATION0.10 10*3/uLNormal0.00-0.20UnTriHealth Bethesda North HospitalComment on above:Performed By: #### [id number] ####[facility] ([facility])[address] [place], [place] [address]KHQVAYYV GRANULOCYTES/100 LEUKOCYTES IN BLOOD BY AUTOMATED COUNT0.5 %Normal0.0-1.0Un[facility] Comment on above:Performed By: #### [id number] ####[facility] ([facility])[address] [place], [place] [address]OZUUPKTVSXU (10*3/UL) IN BLOOD BY CALCULATION2.12 10*3/uLNormal1.20-4.00[facility] HospitalComment on above: Performed By: #### [id number] ####[facility] ([facility])[address] [place], [place] [id number]/100 LEUKOCYTES IN BLOOD BY AUTOMATED COUNT11.0 % Low20.0-45.0[facility] HospitalComment on above:Performed By: #### [id number] ####[facility] ([facility])[address] [place] [address] MONOCYTES (10*3/UL) IN BLOOD BY CALCUATION1.66 10*3/uLHigh0.10-1.00[facility] HospitalComment on above:Performed By: #### [id number] ####[facility] ([facility])[address] [place], [place] [id number]/100 LEUKOCYTES IN BLOOD BY AUTOMATED COUNT8.6 %Normal5.0-12.0[facility] HospitalComment on above:Performed By: #### [id number] ####[facility] ([facility])[address] [place], [place] [id number] (10*3/UL) IN BLOOD BY KBFOIYSTYFU67.4 10*3/uLHigh1.6-7.6[facility] HospitalComment on above:Performed By: #### [id number] ####[facility] ([facility])[address] [place], [place] [address]WUADMEBLQCI/100 LEUKOCYTES IN BLOOD BY AUTOMATED COUNT79.7 % High40.0-72.0[facility] HospitalComment on above:Performed By: #### [id number] ####[facility] ([facility])[address] [place], [place] [address]YBU Auto (RBC) [Entitic mass]Ordered By: Joselyn Perry on 37-19-7325FHY (RBC) [Entitic mass]31.0 pg25.9-34.0[facility] HospitalMCHC Auto (RBC) [Mass/Vol]Ordered By: Joselyn Perry on 66-15-9924IAXG (RBC) [Mass/Vol]34.0 g/dL29.9-35.2FMercy Health St. Elizabeth Youngstown HospitalMCV Auto (RBC) [Entitic vol] Ordered By: [facility] on 72-37-3916TDZ (RBC) [Entitic vol]91.2 fL 80.0-94.0[facility] HospitalMonocytes Auto (Bld) [#/Vol]Ordered By: [facility] on 70-48-4197Diubeqaqy (Bld) [#/Vol]1.1 10 3/uLHigh 0.3-0.8[facility] HospitalMonocytes/100 WBC Auto (Bld)Ordered By: [facility] on 04-68-3214Rrnwkoeii/100 WBC (Bld)8.5 %1.7-12.0[facility] HospitalNeutrophils Auto (Bld) [#/Vol]Ordered By: [facility] on 82-55-8936Mgrfzivjltc (Bld) [#/Vol]6.7 10 3/uLHigh1.4-6.5FMercy Health St. Elizabeth Youngstown HospitalNeutrophils/100 WBC Auto (Bld)Ordered By: [facility] on 64-35-0276Xpucfgxwcqm/100 WBC (Bld)52.1 %43.0-75.0[facility] HospitalNo Panel InformationOrdered By: [facility] on 50-09-2920Uchbo BacteriaNONE SEEN #/HPFNONE [facility] Medical CenterUrine Culture ReflexedGrand Lake Joint Township District Memorial HospitalUrine Occult BloodNegativeNEGATIVEMercy Health – The Jewish HospitalUrine Other CastsNONE SEEN #/LPFNONE [facility] Medical CenterUrine Other CrystalsNone Seen #/HPFNone [facility] HospitalUrine RBC0-2 #/HPF0-2FMercy Health St. Elizabeth Youngstown HospitalUrine Squamous Epithelial CellsRARE #/LPFNONE/RARE [facility] HospitalUrine WBC0-2 #/HPFAbnormalNONE SEENMercy Health – The Jewish HospitalEosinophils # (Auto)0.2 10 3/uL0.0-0.7FMercy Health St. Elizabeth Youngstown HospitalImmature Granulocyte # (Auto)0.03 10 3/uL0.00-0.03[facility] HospitalTroponin I High Sensitivity6.7 pg/mL4.0-76.1FMercy Health St. Elizabeth Youngstown HospitalComment on above:CUT-OFF POINTS HAVE BEEN ESTABLISHED BASED ON THE FOURTHUNIVERSAL DEFINITION OF MYOCARDIAL INFARCTION. THE UPPERREFERENCE LIMIT (URL) OF TROPONIN, DEFINED THE 99THPERCENTILE OF cTnI DISTRIBUTION IN A REFERENCE POPULATION,HAS BEEN CONFIRMED THE DECISION THRESHOLD FOR MIDIAGNOSIS.99TH PERCENTILE = 76.2 PG/MLNOTE: HIGH-SENSITIVITY TROPONIN ASSAY IS NOT INTENDED TO BEUSED IN ISOLATION BUT SHOULD BE INTERPRETED IN CONJUNCTIONWITH OTHER DIAGNOSTIC AND CLINICAL INFORMATION.PHOSPHORUSon 44-45-9525Mdjdgxalv [Mass/Vol]2.9 mg/dLNormal2.5-5.0[facility] - WestComment on above:Performed By: #### [id number] ####[facility] ([facility])[address] [place], [place] [address]Hvlaxesm mean volume Auto (Bld) [Entitic vol]Ordered By: Joselyn Perry on 59-15-2746Zfbbaphe mean volume (Bld) [Entitic vol]12.1 fL9.5-13.5FMercy Health St. Elizabeth Youngstown HospitalPlatelets Auto (Bld) [#/Vol]Ordered By: Joselyn Perry on 12-77-6448Pteowvobk (Bld) [#/Vol]155 10 3/hB023-642UmqnrnfmpMercy Health – The Jewish HospitalRBC Auto (Bld) [#/Vol] Ordered By: Joselyn Perry on 46-85-3780EEL (Bld) [#/Vol]4.67 10 6/uLLow 4.70-6.10[facility] Medical Centererum or plasma albumin/globulin mass ratioOrdered By: Joselyn Perry on 59-10-3259Bzorvyk/Globulin [Mass ratio] 1.1 {ratio}[facility] Centererum or plasma anion gap determinationOrdered By: Joselyn Perry on 28-28-5336Fnokx gap [Moles/Vol] 7.4 mmol/LFMercy Health St. Elizabeth Youngstown HospitalTYPE AND SCREENon 23-71-4420UT SCREEN NegativeNormalUniversVeterans Health AdministrationComment on above:Performed By: #### [id number] ####[facility],ABO group Nom (Bld)ONormalLake County Memorial Hospital - WestComment on above:Performed By: #### [id number] ####[facility],RH TYPE IN BLOODPositiveNormalUniversVeterans Health AdministrationComment on above: Performed By: #### [id number] ####[facility],Ambulatory Visit Summaryon 08-96-1992Ieneanisxs Visit SummaryAmbulatory Visit Summary DARRELL NELSON :1950 Visit Date:04/23/2025 [...] Rock LUJAN MD Where: [facility] [address], [address] [place] [address]- You Need to Schedule the Following Appointments Follow Up with Rock LUJAN MD, URL When: Where: [address] [address]- Medications What How Much When Instructions Unchanged [...] a day Contact prescribing physician if questions orconcerns Unchanged tamsulosin (tamsulosin 0.4 mg Cap) 1 [...] below the bladder and in front of therectum in males. The function of the prostate is to add fluid to semen during ejaculation. Prostatecancer is one of the most common types [...] prostate cancer. You should talk with your healthcare provider about your need for screening and [...] screening can cause ar (more content not included)...[facility] HospitalUrology Office/Clinic Noteon 19-14-9658Kwecrxl Office/Clinic NoteUrology Office/Clinic Note Chief Complaint 6 month with [...] with voice recognition artificial intelligence software, specifically [email or web address], [employer] and or ROV[employer]. Substitutions may have occurred due to the [...] a stone within the last 1-2 years. Willorder KUB to be done prior to next [...] Contact Information Rock LUJAN MD, URL [address] [place] [address]- Additional Instructions: 6 mos w/ PSAFT and KUB Patient Education Prostate Cancer Screening I, Rianna March, personally scribed for Dr. Lujan on 04/23/2025 09:04:59. . Documentation recorded by the scribe, Rianna March, accurately reflects the services(s) I performed and decisions made by me. Authenticated by Dr. Lujan on 04/23/2025 09:05:56. Problem List/Past Medical History Ongoing BMI 27.0-27.9,adult BPH with (more content not included)...[facility] Memorial HospitalComment on above:Result Comment: Electronically Signed By: Rock LUJAN MD\.br\Date and Time Signed: 04/23/25 09:07 EDT\.br\Electronically Co-Signed By: Rianna March\.br\Date and Time Co-Signed: 04/23/25 09:05 EDTNo Panel Information Ordered By: Rock Lujan on 72-22-6313Xmyd Prostate Specific Antigen1.67 ng/mL N/AFMercy Health St. Elizabeth Youngstown HospitalComment on above:Ayush ECLIA methodology. Prostate Specific Antigen Total9.1 ng/mLAbnormal0.0-4.0[facility] HospitalComment on above:Ayush ECLIA methodology.According to the [employer], Serum PSAshould decrease and remain at undetectable levels afterradical prostatectomy. The AUA defines biochemicalrecurrence as an initial PSA value 0.2 ng/mL or greaterfollowed by a subsequent confirmatory PSA value 0.2 ng/mLor greater. Values obtained with different assay methods orkits cannot be used interchangeably. Results cannot beinterpreted as absolute evidence of the presence or absenceof malignant disease.Serum or plasma free prostate specific antigen (PSA)/total PSA ratioOrdered By: Rock Lujan on 20-45-3013Grqk PSA/Total PSA [Mass fraction]18.4 %.[facility] HospitalComment on above:The table below lists the probability of prostate cancer formen with non-suspicious HUGO results andtotal PSA between4 and 10 ng/mL, by patient age (Costa et al, RYLIE 1998,279:1542). % Free PSA 50-64 yr 65-75 yr 0.00-10.00% 56% 55% 10.01-15.00% 24% 35% 15.01-20.00% 17% 23% 20.01-25.00% 10% 20% >25.00% 5% 9%Please note: Costa et al did not make specific recommendations regarding the use of percent free PSA for any other population of men.Performed at: - Lab[address] [id number] Director: Aly Osuna PhD, Phone: [phone] Onlyon 53-19-1339Ttbbdw OnlyNormalUniversVeterans Health Administration36on Detailed voicemail left for patient. Melanie Vickers, [facility]36Per Dr. Plasencia: Ariana I put in a request for right and left heart catheterization on this patient per CT surgery request. Please inform the patient to expect a call from the [employer] Demonstrator to schedule itNormalUniversity Sedan City Hospitaledo Medical Yxarrt57qh [phone] was seen by CT surgery for possible mitral valve repair. CT surgery team reached out to me requesting right and left heart catheterization before proceeding with surgery. Will go ahead and schedule it and inform the patient [facility]36on [phone] Sheryl Simeon MA BMP looks good after increasing losartan dose. Left message for patient advising him of his blood test results.[facility] HospitalAbstracton 57-76-5017AwlmzyzuUrqqkaAlauknxlna of Toledo Medical CenterConsulton 80-73-3453FjszwmlEzvtjkDsvezywshy of [facility] Hddmwv88mi 2nd attempt to reach patient to schedule no answer lmom to cb SRNormalUniversVeterans Health Administration36on Call placed to patient to schedule appointment no answer left message to call back.[facility]36NormalUniversity [facility] HospitalTelephoneon 97-87-4247DhaavqxikSkgitvIdjjapaqug [facility] HospitalANESon 86-57-5388ATEINbbyjkEjmjxhmoxr of [facility]edo Medical CenterHPon 37-63-6933NNXahdzqEuvixauqls [facility] HospitalNURSNOTEon 12-20-2024 NURSNOTENormalUniversVeterans Health AdministrationTelephoneon 30-78-0615Qayjokmvj [facility]36on 61-77-704714Ykswmjhed lab results from 11/13/2024: MD Eneida Simeon MA Lipids look very good. Continue current diet and exercise. LM on patient's VM.[facility] HospitalAmbulatory Visit Summaryon 81-62-6353Lcjlozjiio Visit SummaryAmbulatory Visit Summary DARRELL NELSON :1950 Visit Date:10/16/2024 [...] Rock LUJAN MD Where: [facility] [address], [address] [place] [address]- You Need to Schedule the Following Appointments Follow Up with Rock LUJAN MD, URL When: Where: [address] [address]- Medications What How Much When Instructions Unchanged [...] a day Contact prescribing physician if questions orconcerns Medications and Immunizations Administered Not Given influenza [...] below the bladder and in front of therectum in males. The function of the prostate is to add fluid to semen during ejaculation. Prostatecancer is one of the most common types [...] prostate cancer. You should talk with your healthcare provider about your need for screening and [...] often or that yo (more content not included)...[facility] HospitalUrology Office/Clinic Noteon 19-13-8254Gzbnijw Office/Clinic NoteUrology Office/Clinic Note Chief Complaint 6 mo fu [...] 15.4% 03/12/24 - 7.7 & 21.0% 10/09/24 & 21.7% Dysuria: no Incomplete bladder emptying: [...] with voice recognition artificial intelligence software, specifically [employer]qu[email or web address], [employer] and or [employer]. Substitutions may have occurred due to the [...] doing well on tamsulosin 0.4 mg daily withno need for dosage changes. Will see him back in 6 months with a repeat free and total PSA Follow-up With When Contact Information [place]AR[place]E [place], Rock Pollock, URL [address] [place] [phone]- Additional Instructions: 6 mos w/ PSA free [...] renal calculus (02/11/2016), Cys (more content not included)...[facility]ica Memorial HospitalComment on above:Result Comment: Electronically Signed By: Rock LUJAN MD\.br\Date and Time Signed: 10/16/24 08:34 EST\.br\Electronically Co- Signed By: Rianna March\.br\Date and Time Co-Signed: 10/16/24 08:31 EST PSA, FREE AND TOTAL RATIOon 02-09-2023% Free PSA19.7 %NormalTrihealth Bethesda Butler HospitalComment on above:Result Comment: The table below lists the probability [...] free PSA for any other population of men.Performed By: #### PSAFREE #### [facility] [address] [place] [address] Dr. Vaishali Annstate specific Ag [Mass/Vol]7.6 ng/mLCritically high0.0-4.0The [facility] HealthComment on above:Result Comment: Ayush ECLIA methodology. . According to the [employer] U[employer] Association, Serum PSA should decrease and [...] of the presence or absence of malignant disease.Performed By: #### PSAFREE #### [facility] [address] [place] [address] Dr. Vaishali Bateman, Free1.50 ng/mLNormalN/AThe [facility] HealthComment on above:Result Comment: Ayush ECLIA methodology.Performed By: #### PSAFREE #### [facility] [address] [place] [address] Dr. Vaishali Luo AUTO DIFFon 95-57-1932GEIW #0.1 103/ulNormal0.0-0.1The [facility]ma HealthComment on above:Performed By: #### CBC #### [facility] [address] [place] [address] Dr. Vaishali DorseyBasophils/100 WBC (Bld)0.6 %Normal0.2-2.0The [facility] Comment on above:Performed By: #### CBC #### [facility] [address] [place] [address] Dr. Tom ChangEAshley #0.5 103/ulNormal0.0-0.7The [facility] HealthComment on above: Performed By: #### CBC #### [facility] [address] [place] [address] Dr. Vaishali Huangosinophils/100 WBC (Bld)4.4 %Normal0.9-7.0The [facility] Comment on above:Performed By: #### CBC #### [facility] [address] [place] [address] Dr. Vaishali Huangrythrocyte distribution width (RBC) [Ratio]17.2 %Critically high 11.0-15.0The [facility] HealthComment on above:Performed By: #### CBC #### [facility] [address] [place] [address] Dr. Vaishali DorseyHematocrit (Bld) [Volume fraction]39.6 %Critically low42.0-54.0 The [facility]ma HealthComment on above:Performed By: #### CBC #### [facility] [address] [place] [address] Dr. Vaishali DorseyHemoglobin (Bld) [Mass/Vol]11.8 g/dLCritically low14.0-18.0The [facility] HealthComment on above:Performed By: #### CBC #### [facility] [address] [place] [address] Dr. Vaishali Davis #0.03 10e3/ulNormal0.00-0.03The [facility] HealthComment on above:Performed By: #### CBC #### [facility] [address] [place] [address] Dr. Vaishali Davis %0.3 %Normal0.0-0.5The [facility] HealthComment on above: Performed By: #### CBC #### [facility] [address] [place] [address] Dr. Vaishali Washington #4.1 103/ulCritically high1.2-3.8The [facility] Comment on above:Performed By: #### CBC #### [facility] [address] [place] [address] Dr. Vaishali Worthymphocytes/100 WBC (Bld)34.2 %Ukganx62.5-60.0[facility] Butler HospitalComment on above:Performed By: #### CBC #### [facility] [address] [place] [address] Dr. Vaishali Levine DIFF REQNONormalThe [facility] HealthComment on above: Performed By: #### CBC #### [facility] [address] [place] [address] Dr. Vaishali Tafoya (RBC) [Entitic mass]24.5 pgCritically low25.9-34.0The [facility] HealthComment on above:Performed By: #### CBC #### [facility] [address] [place] [address] Dr. Vaishali Tafoya (RBC) [Mass/Vol]29.8 g/dLCritically low29.9-35.2The [facility] HealthComment on above:Performed By: #### CBC #### [facility] [address] [place] [address] Dr. Vaishali Tafoya (RBC) [Entitic vol]82.2 oEMoyeqc02.0-94.0[facility] HospitalComment on above:Performed By: #### CBC #### [facility] [address] [place] [address] Dr. Vaishali Chin #1.1 103/ulCritically high0.3-0.8ThTrinity Health System East Campus Comment on above:Performed By: #### CBC #### [facility] [address] [place] [address] Dr. Vaishali Daughertyocytes/100 WBC (Bld)9.1 %Normal1.7-12.0[facility] Comment on above:Performed By: #### CBC #### [facility] [address] [place] [address] Dr. Vaishali Contreras #6.1 103/ulNormal1.4-6.5The [facility] HealthComment on above:Performed By: #### CBC #### [facility] [address] [place] [address] Dr. Vaishali Langfordutrophils/100 WBC (Bld)51.4 %Cmsqbx34.0-75.0The [facility] HealthComment on above:Performed By: #### CBC #### [facility] [address] [place] [address] Dr. Vaishali Kang mean volume (Bld) [Entitic vol]10.3 fLNormal9.5-13.5The [facility] HealthComment on above:Performed By: #### CBC #### [facility] [address] [place] [address] Dr. Vaishali DorseyPLT231 103/ieYgcjua903-329Iku [facility] HealthComment on above: Performed By: #### CBC #### [facility] [address] [place] [address] Dr. Vaishali DorseyRBC4.82 106/ulNormal4.70-6.10The [facility] HealthComment on above:Performed By: #### CBC #### [facility] [address] [place] [address] Dr. Vaishali DorseyWBC11.9 103/ulCritically high4.0-11.0The [facility] HealthComment on above:Performed By: #### CBC #### [facility] [address] [place] [address] Dr. Vaishali DorseyCT ABD/PELV W CONon 34-95-6159ST ABD/PELV W CONEXAMINATION: CT ABD/PELV W CON, 11/03/2022 6:43 AM EST HISTORY: [...] Electronically authenticated by: OLIVER CHAVEZ Date: 2022-11-03 13:53[facility] HospitalPROF CHEM 8 (BAS METB)on 95-29-5568Fcbpu gap [Moles/Vol]10.3 mmol/LNormalThe [facility] HealthComment on above:Performed By: #### BMP ####[facility] [address] [place], [place] [address]Dr. Yilan ChangCalcium [Mass/Vol]9.2 mg/dLNormal8.5-10.1The [facility] HealthComment on above:Performed By: #### BMP ####[facility] [address]rs[address] [place], [place] [address]Dr.Yilan ChangChloride [Moles/Vol]105 mmol/LNormal 98-107The [facility] HealthComment on above:Performed By: #### BMP ####[facility] [address] [place], [place] [address]Dr.Yilan ChangCO2 [Moles/Vol]32.4 mmol/LCritically high21.0-32.0The [facility] HealthComment on above:Performed By: #### BMP ####[facility] [address] [place], [place] [address]Dr.Yilan ChangCreatinine [Mass/Vol]1.00 mg/dLNormal 0.70-1.30The [facility] HealthComment on above:Performed By: #### BMP ####[facility] C[address] [place], [place] [address]Dr. Yilan ChangEGFR-AF VENEZUELAN>60Normal>=60The [facility] HealthComment on above: Performed By: #### BMP ####[facility] [address] [place], [place] [address]Dr.Vaishali ChangEGFR-NON AF VENEZUELAN>60Normal>=60The [facility] HealthComment on above:Performed By: #### BMP ####[facility] [address] [address]Dr.Vaishali ChangGlucose [Mass/Vol]101 mg/yELyiztv17-059Ses [facility] HealthComment on above:Performed By: #### BMP ####[facility] [address] [place], [place] [address]Dr.Vaishali ChangPotassium [Moles/Vol]5.7 mmol/LCritically high3.5-5.1The [facility] HealthComment on above:Performed By: #### BMP ####[facility] [address] [place], [place] [address]Dr.Vaishali ChangSodium [Moles/Vol]142 mmol/JZosyso315-491Mid [facility] HealthComment on above: Performed By: #### BMP ####[facility] [address] [place], [place] [address]Dr.Vaishali ChangUrea nitrogen [Mass/Vol]13.0 mg/dLNormal 7.0-18.0The [facility] HealthComment on above:Performed By: #### BMP ####[facility] On[address] [place], [place] [address]Dr. Vaishali ChangUrea nitrogen/Creatinine [Mass ratio]13.0 mg/mgNoFirelands Regional Medical CenterComment on above:Performed By: #### BMP ####[facility] [address] [place], [place] [address]Dr.Vaishali DorseyPROTIMEon 34-21-0794HOI Coag (PPP) [Relative time]0.96 {INR}NormalThe [facility] Comment on above:Performed By: #### PT #### [facility] [address] [place] [address] Dr. Vaishali Eason GUIDELINESSEE BELOWAkron Children's HospitalComment on above:Result Comment: DESIRED INR: 2.0 - 3.0 CONDITIONS NOT LISTED BELOW 2.5 - 3.5 FOR PROSTHETIC HEART VALVE REPLACEMENT 2.5 - 3.5 RECURRENT THROMBOSIS Performed By: #### PT #### [facility] [address] [address] [address] Vaishali DorseyPT Coag (PPP) [Time]10.2 sNormal9.0-11.6The [facility] Comment on above:Performed By: #### PT #### [facility] [address] [address] [address] Vaishali DorseyCovid-19 PCR (CVDTBH)on 21-30-1352KZWL-CoV-2 (COVID-19) RNA NICK+probe Ql (Unsp spec)Not detectedNormalNOT DETECTEDThe [facility] Comment on above:Result Comment: When diagnostic testing is negative, the [...] for this test is supported by the Customer Supply Chain Analyst of Health and Human Service's declaration that circumstances exist to justify the emergency use of in vitro diagnostics for the detection and/or diagnosis of the virus that causes COVID-19. This EUA will remain in effect for the duration of the COVID-19 declaration justifying emergency of IVDs, unless it is terminated or revoked by the FDA (after which the test may no longer be used).Performed By: #### CVDTBH #### [facility] [address] [place] [address] Dr. Vaishali Luo AUTO DIFFon 65-32-5245NRKB #0.1 103/ulNormal0.0-0.1[facility] HospitalComment on above:Performed By: #### CBC #### [facility] [address] [place] [address] [address] [address] Vaishali DorseyBasophils/100 WBC (Bld)0.6 %Normal0.2-2.0[facility] Comment on above:Performed By: #### CBC #### [facility] [address] [address] [address] Vaishali Sofia #0.3 103/ulNormal0.0-0.7The [facility] HealthComment on above: Performed By: #### CBC #### [facility] [address] [place] [address] Dr. Vaishali Huangosinophils/100 WBC (Bld)2.0 %Normal0.9-7.0The [facility] Comment on above:Performed By: #### CBC #### [facility] [address] [place] [address] Dr. Vaishali Huangrythrocyte distribution width (RBC) [Ratio]16.4 %Critically high 11.0-15.0The [facility] HealthComment on above:Performed By: #### CBC #### [facility] [address] [place] [address] Dr. Vaishali DorseyHematocrit (Bld) [Volume fraction]38.0 %Critically low42.0-54.0 The [facility] HealthComment on above:Performed By: #### CBC #### [facility] [address] [place] [address] Dr. Vaishali DorseyHemoglobin (Bld) [Mass/Vol]11.8 g/dLCritically low14.0-18.0[facility] HospitalComment on above:Performed By: #### CBC #### [facility] [address] [place] [address] Dr. Vaishali Davis #0.04 10e3/ulCritically high0.00-0.03The [facility] Comment on above:Performed By: #### CBC #### [facility] [address] [place] [address] Dr. Vaishali Davis %0.3 %Normal0.0-0.5The [facility] HealthComment on above: Performed By: #### CBC #### [facility] [address] [place] [address] Dr. Vaishali Washington #3.6 103/ulNormal1.2-3.8The [facility] HealthComment on above:Performed By: #### CBC #### [facility] [address] [address] [address] Vaishali Worthymphocytes/100 WBC (Bld)28.4 %Sehoxt09.5-60.0OhioHealthment on above:Performed By: #### CBC #### [facility] [address] [address] [address] Vaishali Levine DIFF REQNONormalThe [facility] HealthComment on above: Performed By: #### CBC #### [facility] [address] [address] [address] Vaishali Tafoya (RBC) [Entitic mass]25.2 pgCritically low25.9-34.0The [facility] HealthComment on above:Performed By: #### CBC #### [facility] [address] [place] [address] Dr. Vaishali Tafoya (RBC) [Mass/Vol]31.1 g/bJHtbdgc76.9-35.2The [facility] on above:Performed By: #### CBC #### [facility] [address] [place] [address] Dr. Vaishali Tafoya (RBC) [Entitic vol]81.0 fFJkdmfd58.0-94.0The [facility] on above:Performed By: #### CBC #### [facility] [address] [place] [address] Dr. Vaishali Chin #1.1 103/ulCritically high0.3-0.8ThTrinity Health System East Campus Comment on above:Performed By: #### CBC #### [facility] [address] [place] [address] Dr. Vaishali Daughertyocytes/100 WBC (Bld)8.3 %Normal1.7-12.0[facility] Comment on above:Performed By: #### CBC #### [facility] [address] [place] [address] Dr. Vaishali Contreras #7.6 103/ulCritically high1.4-6.5The [facility] Comment on above:Performed By: #### CBC #### [facility] [address] [place] [address] Dr. Vaishali DorseyNeutrophils/100 WBC (Bld)60.4 %Qzczrz64.0-75.0The Summa HealthComment on above:Performed By: #### CBC #### [facility] [address] [place] [address] Dr. Vaishali DorseyPlatelet mean volume (Bld) [Entitic vol]10.7 fLNormal9.5-13.5The Summa HealthComment on above:Performed By: #### CBC #### [facility] [address] [place] [address] Dr. Vaishali DorseyPLT226 103/yjRcbkpq725-106Wzu [facility]ma HealthComment on above: Performed By: #### CBC #### [facility] [address] [place] [address] Dr. Vaishali DorseyRBC4.69 106/ulCritically low4.70-6.10The Summa HealthComment on above:Performed By: #### CBC #### [facility] [address] [place] [address] Dr. Vaishali DorseyWBC12.6 103/ulCritically high4.0-11.0The Summa HealthComment on above:Performed By: #### CBC #### [facility] [address] [place] [address] Dr. Vaisahli DorseyFERRITINon 79-49-3009Tasvjcpx [Mass/Vol]8.0 ng/mLCritically low 26.0-388.0The Summa HealthComment on above:Performed By: #### FERR #### [facility] [address] [place] [address] Dr. Vaishali DorseyPROKyra 14(COMP METB)on 47-64-6523Cbgfvjy [Mass/Vol]3.8 g/dLNormal 3.4-5.0The Summa HealthComment on above:Performed By: #### CMP #### [facility] [address] [place] [address] Dr. Vaishali DorseyAlbumin/Globulin [Mass ratio]1.1 {ratio}NormalThe Summa HealthComment on above:Performed By: #### CMP #### [facility] [address] [place] [address] Dr. Vaishali RodriguezP [Catalytic activity/Vol]66 U/WSsruas71-636Qty [facility]ma HealthComment on above:Performed By: #### CMP #### [facility] [address] [place] [address] Dr. Vaishali RodriguezT [Catalytic activity/Vol]22 U/TSafcyv88-89Kgb [facility] HealthComment on above:Performed By: #### CMP #### [facility] [address] [place] [address] Dr. Vaishali Rayon gap [Moles/Vol]10.4 mmol/LNormalThe [facility] Comment on above:Performed By: #### CMP #### [facility] [address] [place] [address] Dr. Vaishali DorseyAST [Catalytic activity/Vol]19 U/QSguyle83-89Mjy [facility]ma HealthComment on above:Performed By: #### CMP #### [facility] [address] [place] [address] Dr. Vaishali DorseyBilirubin [Mass/Vol]0.2 mg/dLNormal0.2-1.0The [facility] Comment on above:Performed By: #### CMP #### [facility] [address] [place] [address] Dr. Vaishali DorseyCalcium [Mass/Vol]9.2 mg/dLNormal8.5-10.1The [facility] Comment on above:Performed By: #### CMP #### [facility] [address] [place] [address] Dr. Vaishali DorseyChloride [Moles/Vol]107 mmol/PUcdqfj98-770Hnx [facility] Comment on above:Performed By: #### CMP #### [facility] [address] [place] [address] Dr. Vaishali DorseyCO2 [Moles/Vol]31.2 mmol/FTbyyct80.0-32.0[facility] Comment on above:Performed By: #### CMP #### [facility] [address] [place] [address] Dr. Vaishali DorseyCreatinine [Mass/Vol]1.02 mg/dLNormal0.70-1.30The Summa HealthComment on above:Performed By: #### CMP #### [facility] [address] [address] [address] Vaishali HuangGFR-AF VENEZUELAN>60Normal>=60The Summa HealthComment on above:Performed By: #### CMP #### [facility] [address] [place] [address] Dr. Vaishali HuangGFR-NON AF VENEZUELAN>60Normal>=60[facility] HospitalComment on above:Performed By: #### CMP #### [facility] [address] [place] [address] Dr. Vaishali DorseyGlobulin (S) [Mass/Vol]3.6 g/dLNormalThe [facility]ma HealthComment on above:Performed By: #### CMP #### [facility] [address] [place] [address] Dr. Vaishali DorseyGlucose [Mass/Vol]101 mg/lRSioubu45-153MyiTrihealth [facility] Comment on above:Performed By: #### CMP #### [facility] [address] [place] [address] Dr. Vaishali DorseyPotassium [Moles/Vol]4.6 mmol/LNormal3.5-5.1The [facility] Comment on above:Performed By: #### CMP #### [facility] [address] [place] [address] Dr. Vaishali DorseyProtein [Mass/Vol]7.4 g/dLNormal6.4-8.2The [facility] Comment on above:Performed By: #### CMP #### [facility] [address] [place] [address] Dr. Vaishali DorseySodium [Moles/Vol]144 mmol/DNywiht537-693Btd [facility] Comment on above:Performed By: #### CMP #### [facility] [address] [place], [place] [address] Dr. Vaishali Rios nitrogen [Mass/Vol]14.0 mg/dLNormal7.0-18.0The Summa HealthComment on above:Performed By: #### CMP #### [facility] [address] [place], [place] [address] Dr. Vaishali DorseyUrea nitrogen/Creatinine [Mass ratio]13.7 mg/mgNormalThe Summa HealthComment on above:Performed By: #### CMP #### [facility] [address] [place], [place] [address] Dr. Vaishali Bateman, FREE AND TOTAL RATIOon 04-21-2022% Free PSA18.9 %NormalThe Summa HealthComment on above:Result Comment: The table below lists the probability [...] free PSA for any other population of men.Performed By: #### PSAFREE #### [facility] [address] [address] [address] Vaishali DorseyProstate specific Ag [Mass/Vol]6.5 ng/mLCritically high0.0-4.0The [facility] HealthComhelen newberry [facility] on above:Result Comment: Ayush ECLIA methodology. . According to the [employer] U[employer] Association, Serum PSA should decrease and [...] of the presence or absence of malignant disease.Performed By: #### PSAFREE #### [facility] [address] [place], [place] [address] Dr. Vaishali Bateman, Free1.23 ng/mLNormalN/AThe Summa HealthComment on above:Result Comment: Ayush ECLIA methodology.Performed By: #### PSAFREE #### [facility] [address] [place], [place] [address] Dr. Vaishali WhiteD-19 [facility]on 38-56-9132VUTA-CoV-2 (COVID-19) RNA NICK+probe Ql (Unsp spec)NegativeNormalNegativeMercy Health – The Jewish HospitalComment on above:Order Comment: Healthcare Worker?: NResult Comment: Testing for SARS-CoV-2 by RT-PCR This test was developed and its performance characteristics determined by [employer] and validated at the [facility]. This test has not been FDA [...] is terminated or revoked sooner. PERFORMED BY: [facility] [address] [place] [address] PATHOLOGIST PICKLE PROCESSOR KAMERON MARTIN M.D.Performed By: #### COVID 19 [facility] [place] [place] #### [facility] [address] [place] [address] USABasic Metabolic Panlon 29-82-6232Htjzs gap12 mmol/LNormal 06-19[facility] CenterComment on above:Performed By: #### ICA, CBCDIF, VITD, PTHI, CMP, URIC ####[facility] [address] [phone] mg/dLLow8.5-10.2CAvita Health [facility] Comment on above:Performed By: #### ICA, CBCDIF, VITD, PTHI, CMP, URIC ####[place] [address] [address] [phone] mmol/ZWbrdal56-024AxagooezwThe Jewish Hospital on above:Performed By: #### ICA, CBCDIF, VITD, PTHI, CMP, URIC ####[place] [address] [address] [phone] mmol/L Jopiqu63-84GyrpqobbbThe Jewish Hospital on above:Performed By: #### ICA, CBCDIF, VITD, PTHI, CMP, URIC ####[place] [address] [address] [place] [phone] mg/dLNormal0.73-1.22[facility] on above:Performed By: #### ICA, CBCDIF, VITD, PTHI, CMP, URIC ####[place] [address] [address] [phone] (non-black)mL/min/{1.73_m2}NormalThe Jewish Hospital on above:Result Comment: eGFR (Estimated GFR) Units of measure: mL/min/1.73 meters squaredeGFR is derived from the reexpressed MDRD Study equation using the following parameters: serum creatinine, age, genderand race. The creatinine assay has been calibrated to be traceable to IDMS.An eGFR <60 mL/min/1.73m2 for >3 months is consistent with chronic kidney disease. Refer to KDOQI guidelines for clinical interpretation.In patients with unstable renal function, e.g. those with acute kidney injury, the eGFR may not accurately reflect actual GFR.Performed By: #### ICA, CBCDIF, VITD, PTHI, CMP, URIC ####[place] [address] Av[address], [place] [phone] mass conc85 mg/zASghjei28-07MesmgsqwjUniversity Hospitals [facility] Center Comment on above:Result Comment: The [place] Diabetes Association (ADA) provides guidance for cutoff [...] unequivocal hyperglycemia, results should be confirmed by repeattesting. In a patient with classic symptoms of hyperglycemia or hyperglycemic crisis, random plasmaglucose results greater than or equal to 200 mg/dL meet the criteria for diagnosis of diabetes.Reference: Standards of Medical Care in Diabetes 2016, [place] Diabetes Association. Diabetes Care. 2016.39(Suppl 1).Performed By: #### ICA, CBCDIF, VITD, PTHI, CMP, URIC ####[place] [address] [address] [place], [place] [phone] molar conc3.5 mmol/LLow3.7-5.1 [facility] on above:Performed By: #### ICA, CBCDIF, VITD, PTHI, CMP, URIC ####[place] [address] [address] [place], [place] [phone] mmol/EYjnygc074-552SsxpmtgukThe Jewish Hospital on above:Performed By: #### ICA, CBCDIF, VITD, PTHI, CMP, URIC ####[place] [address] [place], [place] [phone] nitrogen 5 mg/dLLow9-24[facility] on above:Performed By: #### ICA, CBCDIF, VITD, PTHI, CMP, URIC ####[place] [address] [place], [place] [phone] 72-77-4738Eblupqkxmlm distribution width Auto Ratio (RBC)13.1 %Kscmmc61.5-15.0[facility] on above:Performed By: #### ICA, CBCDIF, VITD, PTHI, CMP, URIC ####[place] [address] [address] [phone] (RBC) 10*6/uLNormal<0.01[facility] on above:Performed By: #### ICA, CBCDIF, VITD, PTHI, CMP, URIC ####[place] [address] [address] [place] [phone] (RBC)3.32 10*6/uLLow4.20-6.00 [facility] on above:Performed By: #### ICA, CBCDIF, VITD, PTHI, CMP, URIC ####[place] [phone] (HCT)29.6 %Low39.0-51.0[facility] on above:Performed By: #### ICA, CBCDIF, VITD, PTHI, CMP, URIC ####[place] [address] [address] [place] [phone] mass conc (Bld)9.8 g/dLLow13.0-17.0[facility] on above:Performed By: #### ICA, CBCDIF, VITD, PTHI, CMP, URIC ####[place] [address] [address] [place] [phone] tTBondhz61.0-34.0[facility] on above:Performed By: #### ICA, CBCDIF, VITD, PTHI, CMP, URIC ####[place] [address] [address] [phone] mass conc (RBC)33.1 g/fEEtmjlp38.5-36.0[facility] on above: Performed By: #### ICA, CBCDIF, VITD, PTHI, CMP, URIC ####[place] [phone] fLNormal 80.0-100.0[facility] on above:Performed By: #### ICA, CBCDIF, VITD, PTHI, CMP, URIC ####[place] [phone] mean volume (PMV)10.5 fLNormal 9.0-12.7CCincinnati [facility] Medical Center on above:Performed By: #### ICA, CBCDIF, VITD, PTHI, CMP, URIC ####[place] [phone] 10*3/sTNrxzth829-458HjipvboqvThe Jewish Hospital on above:Performed By: #### ICA, CBCDIF, VITD, PTHI, CMP, URIC ####[place] [phone] (Leukocytes)10.19 10*3/uLNormal3.70-11.00[facility] on above:Performed By: #### ICA, CBCDIF, VITD, PTHI, CMP, URIC ####[place] [phone] 42-38-9273AWTENRX ID: [id number]: Feliciano Santanaervice: UrologyAuthor Type: PhysicianType: Discharge SummariesFiled: 10/23/2017 8:54 AMNote Text:DISCHARGE SUMMARYPATIENT NAME: Darrell Nelson ADMISSION DATE: 10/21/2017MRN: [id number] DISCHARGE DATE: 10/22/2017Attending Physician: Feliciano Vega for [...] as needed.Qty: 30 tablet Refills: 0Associated Diagnoses:Bladder spa smsdocusate sodium (COLACE) 100 mgTake 100 mg by mouth twice daily. As long as taking opioids/narcotics.Stop taking if loose bowel movements or diarrhea.Qty: 40 capsule Refills: 0potassium citrate ER(UROCIT-K) 10 mEq10 mEq.Refills: 0multivitamin 1 tabletTake 1 tablet by mouth once daily.!! - Potential duplicate medications found. Please discuss with provider.Future Appointments:No future appointments.TIME OF CARE: Discharge Management: I personally spent greater than 30minutes involved in the discharge management of this patient.SIGNATURE: Tk Abdalla MD PAGER: [phone]: October 22, 2017TIME: 9:32 AMRADHA Johnirector, Surgical Stone Disease, [facility]rologic InstituteProfessor of Surgery, [facility] Memorial HospitalPager [phone] Community HospitalPROESSon [id number] ID: [id number]: Tk (NIK Escobarervice: UrologyAuthor Type: ResidentType: Progress NotesFiled: 10/22/2017 9:14 AMNote Text:UROLOGY INPATIENT PROGRESS NOTESERVICE DATE: 10/22/2017SERVICE TIME: 7:31amSubjectiveNo acute events overnightDenies abdominal/flank painNo N/VObjectivePHYSICAL EXAM:Gender:General: NADHEENT: Normocephalic, atraumaticCV:: RRR, well-perfusedResp: breathing comfortablyon room airGI: Soft, NDNTGU: christian draining clear derick urineExtremities: no cyanosis or clubbing, n o edemaNeuro: Alert and orientedPsych: Normal affect?Current hospital medications:NaCl 0.9% iv infusion 75 mL/hr INTRAVENOUS CONTINUOUSacetaminophen 325-650 mg tab(s) (TYLENOL) 325-650 mg ORAL q 4 H PRNondansetron (PF) 4 mg injection (ZOFRAN) 4 mg INTRAVENOUS q 6 H PRNceFAZolin 2 g in dextrose (iso- osmotic) 100 mL (ANCEF, KEFZOL) 2 gINTRAVENOUS q 8 Htamsulosin ER 0.4 mg cap(s) (FLOMAX) 0.4 mg ORAL AT BEDTIMEoxybutynin 5 mg tab(s) (DITROPAN) 5 mg ORAL TIDVITALS:BP 154/78 Pulse 84 Temp 36.9 ?C (98.5 ?F) (Oral) Resp 16 Ht 177.8cm (5' 10 ) Wt 80.4 kg (177 lb 4 oz) SpO2 95% BMI 25.43 kg/i8Smolgdgnxdy max: Temp (24hrs), Av.1 ?C (98.7 ?F), Min:36.8 ?C (98.3?F), Max:37.2 ?C (99 ?F)Intake/Output 10/21/17 0700 - 10/22/17 0659 10/22/17 0700 - 10/23/17 0659 Intake (ml) 2180 -- Output (ml) 2550 650 Net (ml) -370 - 650LABS:BUN (mg/dL)Date Value10/22/2017 501 801 701/08/2018 912 10 Creatinine (mg/dL)Date Value10/22/2017 0.9801 0.9201 0.9001 1.0012 1.05 Recent Labs 220721PXN 10.19HB 9.8*HCT 29.6*NA 140K3.5*CHLOR 102CO2 26GLUC 85Glucose, Urine (mg/dL)Date Value10/21/2017 Negative Bilirubin, Urine (no units)Date Value10/21/2017 Negative Ketones, Urine (no units)Date Value10/21/2017 Negative Specific [place], Ur (no units)Date Value10/21/2017 1.010 Hemoglobin/Blood,Ur ( )Date Value10/21/2017 3+ (A) pH, Urine (no units)Date Value10/21/2017 6.0 Protein, Urine (mg/dL)Date Value10/21/2017 30 (A) Nitrites (no units)Date Value10/21/2017 Negative WBC, Urine (/HPF)Date Value10/21/2017 >25 (A) Color (no units)Date Value10/21/2017 Yellow Clarity (no units)Date Value10/21/2017 Cloudy (A) Assessment/PlanActive Hospital Problems Leukocytosis [D72.829]Mr. Nelson is a 67 year old male with h/o stone s/p R PCNL for two large Rrenal pelvis stones 10/11/17 with uncomplicated post- operative course,discharged on POD2 who presents as transfer from [facility] with right stent painand intermittent hematuria.Procedure:Patient presents [...] culture-Stent removal at bedside this morning#Activity - OOBto chair and Ambulate with assistance#DVT prophylaxis - SCDs#Antibiotics - Ancef 2g q8h for prophylaxis?SIGNATURE: Tk Abdalla MD PATIENT NAME: Darrell Handley BoydDATE: October 22, 2017 : 7:31AM PAGER/CONTACT #: [phone] Medical Specialty [facility] Metabolic Panlon 43-26-7767Yqqio gap14 mmol/LNormal9-18[facility] on above:Performed By: #### ICA, CBCDIF, VITD, PTHI, CMP, URIC ####[facility] [address], [place] [phone] mg/dLLow8.5-10.2CCincinnati [facility] Center on above:Performed By: #### ICA, CBCDIF, VITD, PTHI, CMP, URIC ####[facility] Bvhknmdgldqw[address] AveCEmin[address], [place] [phone] mmol/SGabpna58-691PdxrdbndvThe [facility] Hospital on above:Performed By: #### ICA, CBCDIF, VITD, PTHI, CMP, URIC ####[facility] Kanobjadppov[address] AveCEmin[address], [place] [phone] mmol/WArqwlb05-26RaiyaltdyThe [facility] Hospital on above:Performed By: #### ICA, CBCDIF, VITD, PTHI, CMP, URIC ####[facility] T[address]ssjvgufmr[address] AvMil[place], [place] [phone] mg/dLNormal0.73-1.22[facility] Comment on above:Performed By: #### ICA, CBCDIF, VITD, PTHI, CMP, URIC ####[facility], [place] [phone] (non-black)mL/min/{1.73_m2}NormalUniversity Hospitals Conneaut Medical CenterComment on above:Result Comment: eGFR (Estimated GFR) Units of measure: mL/min/1.73 meters squaredeGFR is derived from the reexpressed MDRD Study equation using the following parameters: serum creatinine, age, genderand race. The creatinine assay has been calibrated to be traceable to IDMS.An eGFR <60 mL/min/1.73m2 for >3 months is consistent with chronic kidney disease. Refer to KDOQI guidelines for clinical interpretation.In patients with unstable renal function, e.g. those with acute kidney injury, the eGFR may not accurately reflect actual GFR.Performed By: #### ICA, CBCDIF, VITD, PTHI, CMP, URIC ####[facility] [place], [place] [phone] mass conc79 mg/pGRmtbzs42-18OwefqezslUniversity Hospitals Conneaut Medical Center Comment on above:Result Comment: The [place] Diabetes Association (ADA) provides guidance for cutoff [...] unequivocal hyperglycemia, results should be confirmed by repeattesting. In a patient with classic symptoms of hyperglycemia or hyperglycemic crisis, random plasmaglucose results greater than or equal to 200 mg/dL meet the criteria for diagnosis of diabetes.Reference: Standards of Medical Care in Diabetes 2016, [place] Diabetes Association. Diabetes Care. 2016.39(Suppl 1).Performed By: #### ICA, CBCDIF, VITD, PTHI, CMP, URIC ####[place] [address] [place] [phone] molar conc3.7 mmol/LNormal3.7-5.1 [facility] on above:Performed By: #### ICA, CBCDIF, VITD, PTHI, CMP, URIC ####[place] [address] [address] [place] [phone] mmol/LVyfwhc017-152WfcalyfqbTriHealth Bethesda Butler Hospitalment on above:Performed By: #### ICA, CBCDIF, VITD, PTHI, CMP, URIC ####[place] [address] [place], [place] [phone] nitrogen 8 mg/dLLow9-24[facility]hes[facility] Butler Hospitalment on above:Performed By: #### ICA, CBCDIF, VITD, PTHI, CMP, URIC ####[place] [address] [place] [phone] and Differentialon 64-54-1576Ipd Baso0.05 k/uLNormal<0.11CCincinnati VA Medical Center on above:Performed By: #### ICA, CBCDIF, VITD, PTHI, CMP, URIC ####[place] [address] [place], [place] [phone] Mono0.81 k/uLNormal<0.87[facility] on above:Performed By: #### ICA, CBCDIF, VITD, PTHI, CMP, URIC ####[place] [address] [place], [place] [phone] Neut6.30 k/uLNormal1.45-7.50[facility] Comment on above:Performed By: #### ICA, CBCDIF, VITD, PTHI, CMP, URIC ####[place] [address] [address], [place] [phone]/100 WBC Auto (Bld)0.5 %NormalThe [facility] Hospital on above:Performed By: #### ICA, CBCDIF, VITD, PTHI, CMP, URIC ####[place] [address] [address], [place] [phone] DiffNormalCCincinnati VA Medical Center on above: Performed By: #### ICA, CBCDIF, VITD, PTHI, CMP, URIC ####[place] [address], [place] [phone] 10*3/uLNormal<0.46[facility] on above:Performed By: #### ICA, CBCDIF, VITD, PTHI, CMP, URIC ####[place] [address] [address], [place] [phone]/100 leukocytes2.3 %Normal [facility] on above:Performed By: #### ICA, CBCDIF, VITD, PTHI, CMP, URIC ####[place] [address] [address], [place] [phone] distribution width Auto Ratio (RBC)13.1 %Normal 11.5-15.0[facility] on above:Performed By: #### ICA, CBCDIF, VITD, PTHI, CMP, URIC ####[place] [address], [place] [phone] (RBC)3.34 10*6/uLLow4.20-6.00 [facility] on above:Performed By: #### ICA, CBCDIF, VITD, PTHI, CMP, URIC ####[place] [address] AveClevelMar[place], [place] [phone] (RBC)10*6/uLNormal<0.01[facility] Comment on above:Performed By: #### ICA, CBCDIF, VITD, PTHI, CMP, URIC ####[place] [address] [place] [phone] (RBC)0.0 /100 ZNGGakosc1AsfrswvknUniversity Hospitals Conneaut Medical Center Comment on above:Performed By: #### ICA, CBCDIF, VITD, PTHI, CMP, URIC ####[place] [address] [address]CRebecca [place] [phone] (HCT)30.2 %Low39.0-51.0[facility] Comment on above:Performed By: #### ICA, CBCDIF, VITD, PTHI, CMP, URIC ####[address] [place] [phone] mass conc (Bld)10.2 g/dLLow13.0-17.0[facility] Medical CenterComment on above:Performed By: #### ICA, CBCDIF, VITD, PTHI, CMP, URIC ####[place] [phone] 10*3/uLNormal1.00-4.00[facility] on above:Performed By: #### ICA, CBCDIF, VITD, PTHI, CMP, URIC ####[place] [address] [address] [place] [phone]/100 srxiomfhmo62.3 %NormalThe Jewish Hospital on above:Performed By: #### ICA, CBCDIF, VITD, PTHI, CMP, URIC ####[place] [address] [place] [phone] hQNwbwoc96.0-34.0CleOhioHealth [facility]ide [facility] on above:Performed By: #### ICA, CBCDIF, VITD, PTHI, CMP, URIC ####[place] [address] [address] [place] [phone] mass conc (RBC)33.8 g/rVTtbzcb83.5-36.0[facility] on above: Performed By: #### ICA, CBCDIF, VITD, PTHI, CMP, URIC ####[place] [address] [phone] fLNormal 80.0-100.0[facility] Butler Hospitalment on above:Performed By: #### ICA, CBCDIF, VITD, PTHI, CMP, URIC ####[place] [address] [place] [phone]/100 leukocytes7.7 %NormalThe Jewish Hospital on above:Performed By: #### ICA, CBCDIF, VITD, PTHI, CMP, URIC ####[place] [address] [phone]/100 WBC Auto (Bld)60.2 %NormalThe Jewish Hospital on above:Performed By: #### ICA, CBCDIF, VITD, PTHI, CMP, URIC ####[place] [address] [place] [phone] mean volume (PMV)10.7 fLNormal9.0-12.7CCincinnati VA Medical Center on above:Performed By: #### ICA, CBCDIF, VITD, PTHI, CMP, URIC ####[place] [address] [place] [phone] 10*3/qRIzewuo046-581XyzsechgvUniversity Hospitals Conneaut Medical Center Comment on above:Performed By: #### ICA, CBCDIF, VITD, PTHI, CMP, URIC ####[place] [address] [address] [phone] (Leukocytes)10.46 10*3/uLNormal3.70-11.00[facility] on above:Performed By: #### ICA, CBCDIF, VITD, PTHI, CMP, URIC ####[facility] [address] [place], [place] [phone] [id number] Coag RelTime (Bld)1.0 {INR}Normal 0.9-1.3CCinc[facility] on above:Result Comment: Vitamin K Antagonist (VKA) Therapeutic Range: INR 2 to 3 (Target INR of 2.5)Note: For patients treated with VKA drugs, such as warfarin, the [employer] 2012 Guideline recommends a therapeutic INR range of 2 to 3 (target INR of 2.5). This recommendation includes high-risk patients with antiphospholipid syndrome with previous arterial or venous thromboembolism, current-generation mechanical or bioprosthetic aortic heart valve replacement.Note: Patients with mechanical aortic valve replacement and additional risk factors for thromboembolic events (atrialfibrillation, previous thromboembolism, LV dysfunction, hypercoagulable conditions) or an older gene ration mechanical AVR (i.e., ball in-Cage) or any mechanical MVR should have a INR therapeutic range of 2.5 to 3.5 (target INR of 3).Tammy GH, et al. Chest 2012, 141:7S-47SNishjohana RA, et al. [facility] 2017, 70: 252-289Performed By: #### ICA, CBCDIF, VITD, PTHI, CMP, URIC ####[facility] [address] [place], [place] [phone] Sec10.4 secNormal9.7-13.0[facility] on above:Performed By: #### ICA, CBCDIF, VITD, PTHI, CMP, URIC ####[facility] [place], [place] [phone] and Screenon 14-90-2950CYS/RH(D)PositiveNormalCCincinnati VA Medical Center on above:Performed By: #### ICA, CBCDIF, VITD, PTHI, CMP, URIC ####[facility] AveClevelJason Ville [phone] ScreenNegativeNormalCCincinnati VA Medical Center on above:Performed By: #### ICA, CBCDIF, VITD, PTHI, CMP, URIC ####[place] [address] [address] AveCAndre Ville [phone] 64-88-6941Dslnxipnd, UrineNegativeNormalNegativeUniversity Hospitals [facility] Comment on above:Performed By: #### ICA, CBCDIF, VITD, PTHI, CMP, URIC ####[place] [address] AveCAndre [place] [phone] COMMENTNormalCCincinnati VA Medical Center on above:Result Comment: Microscopic Examination PerformedPerformed By: #### ICA, CBCDIF, VITD, PTHI, CMP, URIC ####[place] [address] veCAndre [place] [phone] (RBC)10*6/uLCritically abnormal 0-3CCincinnati VA Medical Center on above:Performed By: #### ICA, CBCDIF, VITD, PTHI, CMP, URIC ####[place] [address] AveCAndre [place] [phone] mass conc (Bld)3+Critically abnormalNegative [facility] on above:Performed By: #### ICA, CBCDIF, VITD, PTHI, CMP, URIC ####[place] [address] AveCAndre [place] [phone]+Critically abnormalNegativeUniversity Hospitals Conneaut Medical Center Comment on above:Performed By: #### ICA, CBCDIF, VITD, PTHI, CMP, URIC ####[place] [address] AveClevelJason Ville [phone] of blood6.0 [pH]Normal4.5-8.0[facility] Comment on above:Performed By: #### ICA, CBCDIF, VITD, PTHI, CMP, URIC ####[place] [phone], Urine30 mg/dLCritically abnormalNegativeThe [facility] on above:Performed By: #### ICA, CBCDIF, VITD, PTHI, CMP, URIC ####[place] [phone] [place], Ur1.420Pnqwnj9.005-1.030[facility] on above:Performed By: #### ICA, CBCDIF, VITD, PTHI, CMP, URIC ####[place] [address] AveCJohn Ville [phone] Kelby CommentSEE COMMENTNoBucyrus Community Hospital Comment on above:Result Comment: N/APerformed By: #### ICA, CBCDIF, VITD, PTHI, CMP, URIC ####[place] [address] AveCJohn Ville [phone], clarityCloudyCritically abnormalUpper [facility] Medical Center on above:Performed By: #### ICA, CBCDIF, VITD, PTHI, CMP, URIC ####[place] [address]CJohn Ville [phone], colorYellowNormalYellowThe [facility] Hospital on above:Performed By: #### ICA, CBCDIF, VITD, PTHI, CMP, URIC ####[place] [address]CJohn V[place] [phone], epithelial cells in sedimentSEE COMMENTMercy Health St. [facility] on above:Result Comment: FewSquamous Epithelial CellsPerformed By: #### ICA, CBCDIF, VITD, PTHI, CMP, URIC ####[place] [address] veCAndre [place] [phone], glucose presenceNegativeNormalNegative [facility] on above:Performed By: #### ICA, CBCDIF, VITD, PTHI, CMP, URIC ####[place] [address] AveCAndre [place] [phone], ketones presenceNegativeNormalNegativeThe [facility] on above:Performed By: #### ICA, CBCDIF, VITD, PTHI, CMP, URIC ####[place] [address]CAndre [place] [phone], nitrite presenceNegativeNormalNegativeThe [facility] on above:Performed By: #### ICA, CBCDIF, VITD, PTHI, CMP, URIC ####[place] [address] AveCAndre [place] [phone], urobilinogenNormalNormalNormalCAvita Health System [facility] Comment on above:Performed By: #### ICA, CBCDIF, VITD, PTHI, CMP, URIC ####[place] [address]CAndre [place] [phone] (Leukocytes)10*3/uLCritically abnormal0-5CCincinnati VA Medical Center on above:Performed By: #### ICA, CBCDIF, VITD, PTHI, CMP, URIC ####[place] [address] AveCAndre [place] [phone] Cultureon [id number] culture, bacteriaSp. Request/Comment: - Specimen received in preservative Culture Result - No growth (<1,000 CFU/ml)NormalUniversity Hospitals Conneaut Medical Center Comment on above:Performed By: #### ICA, CBCDIF, VITD, PTHI, CMP, URIC ####[place] [address]CAndre [place] [phone] PHYSICALon [phone] PHYSICALHNO ID: [id number]: Tk (NIK Escobarervice: UrologyAuthor Type: ResidentType: HANDPFiled: 10/21/2017 2:31 PMNote Text:HANDP: UROLOGY SERVICENAME: Darrell CmdMRN: [id number]: [id number] DATE: 10/19/2017SERVICE TIME: 5:04 AMPRIPHOENIX CHILDREN'S HOSPITALY CARE PHYSICIAN: Abigail Sanchez, [facility] AT GULFPORTSSESSMENT AND PLANMr. Omar is a 67 year old male with h/o stone s/p R PCNL for two large Rrenal pelvis stones 10/11/17 with uncomplicated post-operative course,discharged on POD2 who presents as transfer from OSH with rightstent painand intermittent hematuria.He reports presenting to OSH [...] with Dr. Adarsh Abdalla III, MDUrology PGY-2Pager: [phone] 201710:00Overnight and on weekends please page [phone] OF PRESENT ILLNESSMr. Omar is a 67 year old male [...] Never Used- Alcohol use NoMEDICATIONS:Prior to Admission Medications:Noprescriptions prior to admission.No current hospital medications on [...] See HPIMUSCULOSKELETAL: Negative for joint pain or swellingSKIN:Negative for lesions or rashesHEMATOLOGY: Negative for bleeding or clotting problemsNEURO: Negativefor strokes or seizuresOBJECTIVEPHYSICAL EXAM:No data found.There is no height or weight on file tocalculate BMI.General: NADHEENT: Normocephalic, atraumaticCV:: RRR, well-perfusedResp: breathing com fortably on room airGI: Soft, NDNTGU: christian draining clear derick urineExtremities: no cyanosis or clubbing, no edemaNeuro: Alert and orientedPsych: Normal affectImagingCT 09/07 OSH- 18mm and 14mm in Rrenal pelvis NormalUniversity Hospitals Conneaut Medical CenterBagateway rehabilitation hospital Metabolic Panlon 42-54-8284Qkqod gap12 mmol/LNormal9-18[facility] on above:Performed By: #### ICA, CBCDIF, VITD, PTHI, CMP, URIC ####[place] [address]CAndre [place] [phone] mg/dLLow8.5-10.2CCincinnati VA Medical Center on above:Performed By: #### ICA, CBCDIF, VITD, PTHI, CMP, URIC ####[place] [address] AvKaren Ville [phone] mmol/KHkhlew42-906QvvbmwgyvThe [facility] Hospital on above:Performed By: #### ICA, CBCDIF, VITD, PTHI, CMP, URIC ####[place] [address] AveCAndre [place] [phone] mmol/L Gaugqf95-15AuhavcxbvThe Jewish Hospital on above:Performed By: #### ICA, CBCDIF, VITD, PTHI, CMP, URIC ####[place] [address] veCAndre [place] [phone] mg/dLNormal0.73-1.22[facility] on above:Performed By: #### ICA, CBCDIF, VITD, PTHI, CMP, URIC ####[place] [address] AveCAndre [place] [phone] (non-black)mL/min/{1.73_m2}NormalThe [facility] Hospital on above:Performed By: #### ICA, CBCDIF, VITD, PTHI, CMP, URIC ####[facility] [address] [place], [place] [phone] Comment: eGFR (Estimated GFR) Units of measure: mL/min/1.73 meters squaredeGFR is derived from the reexpressed MDRD Study equation using the following parameters: serum creatinine, age, genderand race. The creatinine assay has been calibrated to be traceable to IDMS.An eGFR <60 mL/min/1.73m2 for >3 months is consistent with chronic kidney disease. Refer to KDOQI guidelines for clinical interpretation.In patients with unstable renal function, e.g. those with acute kidney injury, the eGFR may not accurately reflect actual GFR.Glucose mass conc95 mg/qWBpcpwp47-12UpqauvurqThe [facility] Hospital on above:Result Comment: The [place] Diabetes Association (ADA) provides guidance for cutoff values for fasting glucose and random glucose. The ADA defines fasting as no caloric intake for at least 8 hours. F asting plasma glucose results between 100 to 125 mg/dL indicate increased risk for diabetes (prediabetes).Fasting plasma glucose results greater than or equal to 126 mg/dL meet the criteria for diagnosis of diabetes. In the absence of unequivocal hyperglycemia, results should be confirmed by repeattesting. In a patient with classic symptoms of hyperglycemia or hyperglycemic crisis, random plasmaglucose results greater than or equal to 200 mg/dL meet the criteria for diagnosis of diabetes.Reference: Standards of Medical Care in Diabetes 2016, [place] Diabetes Association. Diabetes Care. 2016.39(Suppl 1).Performed By: #### ICA, CBCDIF, VITD, PTHI, CMP, URIC ####[facility] [address] [place], [place] [phone] molar conc3.9 mmol/LNormal 3.7-5.1CCincinnati VA Medical Center on above:Performed By: #### ICA, CBCDIF, VITD, PTHI, CMP, URIC ####[facility] veCEmin[place], [place] [phone] mmol/CAadzcz571-262NdzurhukjThe Jewish Hospital on above:Performed By: #### ICA, CBCDIF, VITD, PTHI, CMP, URIC ####[place] [address] AveCAndre [place] [phone] nitrogen7 mg/dLLow9-24[facility] on above:Performed By: #### ICA, CBCDIF, VITD, PTHI, CMP, URIC ####[place] [address] AvMichael [place] [phone] and Differentialon 62-93-5998Sjx Baso0.03 k/uLNormal<0.11CSt. [facility] Hospital on above:Performed By: #### ICA, CBCDIF, VITD, PTHI, CMP, URIC ####[place] [address] [place] [phone] Mono1.28 k/uLHigh<0.87[facility] on above:Performed By: #### ICA, CBCDIF, VITD, PTHI, CMP, URIC ####[place] [address] AvKaren [place] [phone] Neut8.97 k/uL High1.45-7.50[facility] on above:Performed By: #### ICA, CBCDIF, VITD, PTHI, CMP, URIC ####[place] [address] [place] [phone]/100 WBC Auto (Bld)0.2 %Normal [facility] on above:Performed By: #### ICA, CBCDIF, VITD, PTHI, CMP, URIC ####[place] [address] AvKaren [place] [phone] DiffNormalCCincinnati VA Medical Center on above:Performed By: #### ICA, CBCDIF, VITD, PTHI, CMP, URIC ####[place] [address] AveCAndre [place] [phone] 10*3/uLNormal<0.46[facility] on above:Performed By: #### ICA, CBCDIF, VITD, PTHI, CMP, URIC ####[place] [address]CEmin[address], [place] [phone]/100 leukocytes1.6 %Normal [facility] on above:Performed By: #### ICA, CBCDIF, VITD, PTHI, CMP, URIC ####[place] [address]CAndre [place] [phone] distribution width Auto Ratio (RBC)12.4 %Normal 11.5-15.0[facility] on above:Performed By: #### ICA, CBCDIF, VITD, PTHI, CMP, URIC ####[place] [address] [place] [phone] (RBC)4.29 10*6/uLNormal4.20-6.00 [facility] on above:Performed By: #### ICA, CBCDIF, VITD, PTHI, CMP, URIC ####[place] [address] AvKaren [place] [phone] (RBC)0.0 /100 WXTFsqizj4EjbwmguegThe Jewish Hospital on above:Performed By: #### ICA, CBCDIF, VITD, PTHI, CMP, URIC ####[place] [address]CEmin[address], [place] [phone] (RBC)10*6/uLNormal<0.01[facility] on above:Performed By: #### ICA, CBCDIF, VITD, PTHI, CMP, URIC ####[place] [address]CAnd[address] [place] [phone] (HCT)38.8 %Low39.0-51.0[facility] on above:Performed By: #### ICA, CBCDIF, VITD, PTHI, CMP, URIC ####[phone] mass conc (Bld)12.7 g/dLLow13.0-17.0[facility] Hospitalment on above:Performed By: #### ICA, CBCDIF, VITD, PTHI, CMP, URIC ####[phone] 10*3/uLNormal1.00-4.00[facility] Hospitalment on above:Performed By: #### ICA, CBCDIF, VITD, PTHI, CMP, URIC ####[place] [phone]/100 zsmxxiblkm34.1 %NormalThe [facility] Hospital on above:Performed By: #### ICA, CBCDIF, VITD, PTHI, CMP, URIC ####[place] [phone] nEPjtnyn22.0-34.0[facility] on above:Performed By: #### ICA, CBCDIF, VITD, PTHI, CMP, URIC ####[place] [phone] mass conc (RBC)32.7 g/yYMoqvxm81.5-36.0[facility] on above: Performed By: #### ICA, CBCDIF, VITD, PTHI, CMP, URIC ####[place] [phone] fLNormal 80.0-100.0[facility] on above:Performed By: #### ICA, CBCDIF, VITD, PTHI, CMP, URIC ####[place] [address] [place], [place] [phone]/100 wdackbhzxp73.1 %NormalThe [facility] Hospital on above:Performed By: #### ICA, CBCDIF, VITD, PTHI, CMP, URIC ####[place] [address] AvMil[place]ville, [place] [phone]/100 WBC Auto (Bld)71.0 %NormalThe [facility] Hospital on above:Performed By: #### ICA, CBCDIF, VITD, PTHI, CMP, URIC ####[place] [address] [place], [place] [phone] mean volume (PMV)11.3 fLNormal9.0-12.7CCincinnati VA Medical Center on above:Performed By: #### ICA, CBCDIF, VITD, PTHI, CMP, URIC ####[address] [place], [place] [phone] 10*3/lQIbc683-457FwvdehajwThe [facility] Hospital on above:Result Comment: Result checked and verifiedNo clot detected.Performed By: #### ICA, CBCDIF, VITD, PTHI, CMP, URIC ####[place] [address] [place], [place] [phone] (Leukocytes) 12.64 10*3/uLHigh3.70-11.00[facility] on above:Performed By: #### ICA, CBCDIF, VITD, PTHI, CMP, URIC ####[place] [address] [place], [place] [phone] 10-13-2017 CNDSHNO ID: [id number]: Feliciano NobleService: UrologyAuthor Type: PhysicianType: Discharge SummariesFiled: 10/15/2017 3:53 PMNote Text:[facility] [place] [address] or ([phone]) [facility] M [facility] T I O N [facility] DOCUMENTDISCHARGE SUMMARYPatient Name: Darrell Silverio Date: 10/11/2017Discharge Date: 10/13/2017Attending Physician: Feliciano SchroederPrincishanita Diagnosis:Patient Active H ospital Problem List: Calculus of kidney (09/12/2017)Operations During [...] Pending at Discharge: Stone analysisConsulting Teams During Hos pitalization: noneDischarge Disposition:HomeInformation Provided to the Patient:Patient was given acopy of Discharge InstructionsDischarge Medications: Discharge Medication List [...] hours for 3 days. Take 1000mg Tylenol (zvs100gf tablets) every 6 hours for 3 days. [...] Dorantes, MDDirector, Surgical Stone Disease, [facility] InstituteProfessor of Surgery, [facility] of MedicinePager [phone]/NoBucyrus Community HospitalPLAN OF CAREon [phone] OF CAREHNO ID: [id number]: Angelique Serrano (Child Adolescent Psychiatrist)Service: (none)Author Type: (none)Type: Plan of CareFiled: 10/13/2017 8:44 AMNote Text:SOUND INSTALLATION WORKER BEDSIDE DELIVERY SURVEY1. Patient to use [facility] Bedside Delivery - NO prefer ownpharmacy2. If fax, patient would like us to fax prescriptions to [facility] a. Pharmacy: b. Location: c. Phone:3. Insurance card on file - NO4. Credit card for payment - NONormalUniversity Hospitals Conneaut Medical CenterPROGRESSon [phone] ID: [id number]: Shelly ([facility]) O'NeillService: UrologyAuthor Type: Nurse PractitionerType: Progress NotesFiled: 10/13/2017 11:00 AMNote Text:UROLOGY SERVICE PROGRESS NOTEName: Darrell CmdBed: G090 013/G090- 14MRN: [id number]: October 13, 2017ASSESSMENT AND PLANGloriajuan Nelson is a 67 yearold male with history of HTN, nephrolithiasisnow POD#2 s/p PCNL and R JJ stent placement.#Neuro-Pain controlled on Tylenol#CV/Pnly-ULM-Lbk stable- Continue incentive spirometer use#GI-Diet - GI Soft/regular diet; tolerating without N/V#-Scr 0.90-UOP good-Christian: removed- voiding without difficulty#FEN- IVF NS @ 125 ml/hr#Activity - OOB to chair and Ambulate with assistance#DVT prophylaxis - SCDs, Pharmacologic DVT prophylaxis contraindicated dueto bleeding risk#Antibiotics - Perioperative antibiotics - Ancef#Secondary Dx and ComplicationsHTN- c/w home medications; [facility] Urocit HELD#Discharge teaching - routine teaching#Disposition - Discharge home todaySUBJECTIVE-Pain:controlled-CP/SOB: Denies-N/V:Denies-Bowel function:+Flatus. No BM-Ambulating: YesBrief HPI: No acute events throughout the night. Denies fever, chills.Voiding without difficulty. Doing well. Eager for discharge home.OBJECTIVEVital SignsBP 154/79 Pulse 89 Temp 36.9 ?C (98.4 ?F) (Oral) Resp 20 Ht 175.3cm (5'9 ) Wt 80 kg (176 lb 5.9 oz) SpO2 96% BMI 26.05 kg/e0Fhmpd and OutputIntake/Output Summary (Last 24 hours) at 10/13/17 1047Last data filed at 10/13/17 1040 Gross per 24 hourIntake 3782 pqJnvzri8651 mlNet 532 mlDrains:noneUrine: 3450ccPhysical ExamGeneral: Well appearing male, lying in bed inNADHEENT: Normocephalic, atraumaticCV:: RR, hemodynamically stable, well-perfusedResp: breathing comfortably on RA. CTAB.GI: Soft, non- tender, non-distended.: voiding spontaneouslyExtremities: No cyanosis or clubbing, No edemaNeuro: Alert and orientedPsych: Normal affectRecent Labs 0 10/11/1815WBC 12.64* 14.41* 16.46*HB 12.7* 11.9* 13.7HCT 38.8* 35.9* 39.7PLT 138* 124*147*NA 140 142 --K 3.9 4.0 --CHLOR 103 103 --CO2 25 31* --BUN 7* 9 --CREAT 0.90 1.00 --GLUC 95 100*--Current hospital medications:[NOV Hold due to Transfer] 0.9% NaCl 2-10 mL 2-10 mL INTRAVENOUS q 12 H[MAR Hold due to Transfer] lactated ringers infusion 75 mL/hr INTRAVENOUSCONTINUOUSlosartan 25 mgtab(s) (COZAAR) 25 mg ORAL DAILYtamsulosin ER 0.4 [...] mL ORAL q 6 H PRNphenol 1 [place] (CHLORASEPTIC) 1 [place] MUCOUS MEMBRANE (TOPICAL MOUTH ANDTHROAT) q 2 H PRNsimethicone, chewable 80 mg tab(s) (MYLICON)80 mg ORAL q 8 H PRNoxybutynin 5 mg tab(s) (DITROPAN) 5 mg ORAL q 8 H PRNoxyCODONE IR 5-10 mg tab(s) (ROXICODONE) 5-10 mg ORAL q 4 H PRNNo past medical history on file.[facility] HospitalXR 10/11/17IMPRESSION:NOACUTE DISEASESIGNATURE: Shelly Cote CNP PAGER: [phone]: October 13, 2017TIME: 9:45amPlease page [phone] on weekends and after 4pm on weekdaysNormal [facility] Conneaut Medical CenterPROGRESSHNO ID: [id number]: Miguel (Sudeep) BrykService: UrologyAuthor Type: ResidentType: Progress NotesFiled: 10/13/2017 6:47 AMNote Text:UROLOGY RESIDENT PROGRESS NOTEName: Darrell CmdBed: G090 013/A937-22FTZ: [id number]: October 13, 2017 SUBJECTIVE- no acute events overnight-Pain: controlled-N/V : No- Tolerated diet, ambulating, +ROBF OBJECTIVEVital SignsPatient Vitals for the past 8 hrs: BP Temp Temp src Pulse Resp WgE18710/13/17 0300 144/71 36.7 ?C (98 ?F) Oral 73 18 95 %10/13/17 0005 165/92 36.6 ?C (97.9 ?F) Oral 91 18 94 %Inputand OutputIntake/Output Summary (Last 24 hours) at 10/13/17 0646Last data filed at 10/13/17 0600 Gross per 24 hourIntake 3712 mlOutput 3450 mlNet 262 mlUrine: 3450Physical ExamGeneral: WDWN in NADHEENT: Normocephalic, atraumatic, nonicteric sclera, conjugate gazeCV: Reg rate, warm, well-perfused, He modynamically stableResp: breathing comfortably on RAGI: Soft, nontender, [...] mg tab(s) (AMBIEN) 5 mg ORAL HS PRNaluminum-m agnesium hydroxide-simethicone 200-200-20 mg/5 mL 30 mL(MAALOX,MYLANTA,MAG-AL PLUS) 30 mL ORAL q 6 H PRNphenol 1 [place] (CHLORASEPTIC) 1 [place] MUCOUS MEMBRANE (TOPICAL MOUTH ANDTHROAT) q 2 H PRNsimethicone, chewable 80 mg tab(s) (MYLICON) 80 mg ORAL q 8 H PRNoxybutynin 5 mg tab(s) (DITROPAN) 5 mg ORAL q 8 H PRNoxyCODONE IR 5-10 mg tab(s) (ROXICODONE) 5-10 mg ORAL q 4 H PRN ASSESSMENT AND PLANGloriavin Emmanuelle Nelson is a 67 [...] Jess reg diet-Colace, Zofran# --Scr: 0.9, stable-UOP: excellent- Christian: in place, will remove and trial of void- Cont flomax#Activity - OOB to chair and Ambulate with assistance#DVT prophylaxis - SCDs, Pharmacologic DVT prophylaxis contraindicated dueto bleeding risk#Antibiotics - Perioperative a ntibiotics - ancef#ComplicationsNone#Secondary Dx-HTN- home losartanHome urocit- K held#Discharge teaching - may need home going christian care teaching#Disposition - d/c todayThe patient's progress, lab findings, vitals, and clinical decision makingas documented above to be discussed with staff Dr. Mic vanessa Miguel Zapata M.D.Urology PGY-2Pager: [phone] 20176:47 AMOvernight and on weekends please page [phone] [phone] bUnxpjn48.0-32.4CCincinnati VA Medical Center on above:Result Comment: Unfractionated Heparin Therapeutic Ranges:Standard Heparin Nomogram: 53 to 78 seconds (anti-Xa level of 0.3 to 0.7 U/ml)Low Dose/ACS Nomogram: 49 to 67 seconds (anti-Xa level of 0.2 to 0.5 U/ml)Stroke Treatment Nomogram: 49 to 67 seconds (anti-Xa level of 0.2 to 0.5 U/ml)Note: The APTT therapeutic range has been determined for the current lot of laboratory APTT reagent in use throughout the [facility].Performed By: #### PT, PTT, MG1 ####[facility] [address] [place], [place] [phone] Metabolic Panlon 10-12-2017 Anion gap8 mmol/LLow9-18[facility] on above:Performed By: #### CBCDIF, BMP ####[facility] [address] [place], [place] [phone] mg/dLLow8.5-10.2CCincinnati VA Medical Center on above:Performed By: #### JOHN, BMP ####[place] [address] [place], [place] [phone] mmol/IBtaces65-011 [facility] on above:Performed By: #### JOHN, BMP ####[place] [phone] ZU465 mmol/PFjfp72-80KjgbovdljThe [facility] Hospital on above: Performed By: #### JOHN, BMP ####[address] [phone] mg/dLNormal0.73-1.22[facility] on above:Performed By: #### JOHN, BMP ####[address] [phone] (non-black)mL/min/{1.73_m2}NormalThe Jewish Hospital on above: Performed By: #### JOHN, BMP ####[address] [phone] Comment: eGFR (Estimated GFR) Units of measure: mL/min/1.73 meters squaredeGFR is derived from the reexpressed MDRD Study equation using the following parameters: serum creatinine, age, genderand race. The creatinine assay has been calibrated to be traceable to IDMS.An eGFR <60 mL/min/1.73m2 for >3 months is consistent with chronic kidney disease. Refer to KDOQI guidelines for clinical interpretation.In patients with unstable renal function, e.g. those with acute kidney injury, the eGFR may not accurately reflect actual GFR.Glucose mass wsiw728 mg/eHBgqy79-42YktifeleuUniversity Hospitals Conneaut Medical Center Comment on above:Result Comment: The [place] Diabetes Association (ADA) provides guidance for cutoff [...] unequivocal hyperglycemia, results should be confirmed by repeattesting. In a patient with classic symptoms of hyperglycemia or hyperglycemic crisis, random plasmaglucose results greater than or equal to 200 mg/dL meet the criteria for diagnosis of diabetes.Reference: Standards of Medical Care in Diabetes 2016, [place] Diabetes Association. Diabetes Care. 2016.39(Suppl 1).Performed By: #### CBCDIF, BMP ####[facility] [facility] [address] [place] [id number] Kojvziizj molar conc4.0 mmol/LNormal3.7-5.1CCincinnati VA Medical Center on above:Performed By: #### CBCDIF, BMP ####[facility] [place], [place] [phone] mmol/L Pjmabp079-801ZabtjkhtdThe [facility] Hospital on above:Performed By: #### CBCDIF, BMP ####[facility] [address] [place], [place] [phone] nitrogen9 mg/dLNormal9-24[facility] on above:Performed By: #### CBCDIF, BMP ####[facility] [place], [place] [phone] MGT INIT ASSon [id number] MGT INIT ASSSTONY [facility] ID: [id number]: Brigette (Rn) Micha RNService: Care ManagementAuthor Type: Registered NurseType: Care Mgt Initial AssessmentFiled: 10/12/2017 4:00 PMNote Text:CARE MANAGEMENT: ASSESSMENT AND DISCHARGE PLANSERVICE DATE: 10/12/2017SERVICE TIME: 3:57 PMPRIMARY CARE PHYSICIAN:Abigail Sanchez [facility] one: [phone] STATUS: Ambulatory SurgeryPOTENTIAL DISCHARGE PLANSNo Services IndicatedPatient/Larry Operator Stated Goals: return homeNeeds Prior to Discharge: NoneHealth Insurance: Medical [place] ServicesLiving Arrangement: HomeLives With: SpouseFinancial Resources: RetiredPrimary Contact:Extended Emergency Contact InformationPrimary Emergency Contact: Ansley NelsonAddress: [address] [place] [address] [facility] Nwgdum Hunajqcb: SpouseSupportive: YesOther Important Patient Contacts: NoneCAREGIVER ASSESSMENT:Caregiver [...] ADMISSION:Baseline Mental Status: Alert AND Oriented, Person, Place, Time andSituationFunctional Status: IndependentDoes Patient Currently Receive Any Community Services or Home Care? NoneEquipment Prior to Admission: NoneHEALTH:Health Issues Impacting Discharge Plan: NoneHealth Literacy Issues: NoPSYCHOSOCIAL:Is the Patient Psychosocially Complex? NoFamily/Patient Understanding of Illness/Diagnosis: voiced understandingMedication Adherence:Do you forget to takeyour medications? I do not forget to take [...] days? NoHas the Patient Been in a Nursing Home Facility in the Past 30 days? NoFREEDOM OF CHOICE EXPLAINED:N/AHASILVANA COMMUNICATION:n/aAdm post op after pcnl. Spoke w/ pt at bedside. No skilled dc needsidentified, was independent prior to adm. Chief complaint is of his christian.Please contact care coordinatorif needs arise prior to dc.SIGNATURE: Brigette Muse RN PATIENT NAME: Darrell ElizaldeATE: October : 3:57 PM PAGER/CONTACT #: [phone] Hospital [facility] and Differentialon [id number] Baso0.03 k/uLNormal<0.11CAvita Health System Galion HospitalComment on above:Performed By: #### CBCDIF BMP ####[place] [address] [address] [place] [phone] Mono1.45 k/uLHigh<0.87[facility] on above:Performed By: #### CBCDIF, BMP ####[place] [address] [address] [phone] Neut9.96 k/uLHigh1.45-7.50[facility] Hospitalment on above:Performed By: #### CBCDIF, BMP ####[place] [address] [address] [place] [phone]/100 WBC Auto (Bld)0.2 % NormalThe Jewish Hospital on above:Performed By: #### CBCDIF, BMP ####[place] [address] [address] [phone] EQDZWJeey DiffNormalCCincinnati VA Medical Center on above: Performed By: #### CBCDIF, BMP ####[place] [address] [address] [place] [phone] 10*3/uLNormal<0.46[facility] on above:Performed By: #### CBCDIF, BMP ####[place] [address] [address] Av[place], [place] [phone] Eosinophils/100 leukocytes0.4 %NormalThe Jewish Hospital on above: Performed By: #### CBCDIF, BMP ####[address] Av[address], [place] [phone] distribution width Auto Ratio (RBC)12.6 %Dpeiif29.5-15.0[facility] Hospitalment on above:Performed By: #### CBCDIF, BMP ####[address] Av[address], [place] [phone] (RBC)0.0 /100 BQVGicdhr3PvqnakywyThe Jewish Hospital on above:Performed By: #### CBCDIF, BMP ####[address] [phone] (RBC) 3.97 10*6/uLLow4.20-6.00[facility] on above:Performed By: #### CBCDIF, BMP ####[address] Av[address], [place] [phone] (RBC)10*6/uLNormal<0.01[facility] Comment on above:Performed By: #### CBCDIF, BMP ####[address] [phone] (HCT)35.9 %Low39.0-51.0[facility] on above:Performed By: #### CBCDIF, BMP ####[address] Av[address], [place] [phone] mass conc (Bld)11.9 g/dLLow13.0-17.0[facility] on above:Performed By: #### CBCDIF, BMP ####[address] Av[address], [place] [phone] 10*3/uLNormal1.00-4.00[facility] on above:Performed By: #### CBCMARIELA, BMP ####[address] [phone]/100 mzlvcjnwfi84.2 %NormalThe Jewish Hospital on above:Performed By: #### CBCMARIELA, BMP ####[address] [phone] pGNormal 26.0-34.0[facility] on above:Performed By: #### CBCMARIELA, BMP ####[place] [address] [address] mass conc (RBC)33.1 g/uESutglb77.5-36.0[facility] on above:Performed By: #### CBCMARIELA, BMP ####[place] [phone] fLNormal 80.0-100.0[facility] on above:Performed By: #### CBCMARIELA, BMP ####[place] [address] Jsxesasrv/100 .1 %[facility] Comment on above:Performed By: #### CBCMARIELA, BMP ####[address] [place] [phone]/100 WBC Auto (Bld)69.1 %NormalThe Jewish Hospital on above:Performed By: #### CBCDIKyra, BMP ####[address] [phone] mean volume (PMV)11.2 fLNormal9.0-12.7[facility] ClevelandComment on above:Performed By: #### CBCDIF, BMP ####[place] [address] [place], [place] [phone] 10*3/uL Jfd670-995TnwfoibowThe Jewish Hospital on above:Result Comment: Result checked and verifiedNo clot detected.Performed By: #### CBCDIF, BMP ####[address] [address] JVF (Leukocytes)14.41 10*3/uLHigh3.70-11.00[facility] on above:Performed By: #### CBCDIF, BMP ####[address] [phone] 06-75-6730Ewlhbpiat2.7 mg/dLNormal1.7-2.3CCincinnati VA Medical Center on above:Performed By: #### PT, PTT, MG1 ####[facility] [place], [place] [phone] 89-10-2848QKBUHZMLIST ID: [id number]: Feliciano Santanaervice: (none)Author Type: PhysicianType: Progress NotesFiled:10/12/2017 1:40 PMNote Text:STAFF UROLOGY NOTE:Patient's Hb dropped nearly 2 grams post-op and his urine was too bloodythis morning for voiding trial or discharge. Will plan to keep in houseanother day.Feliciano Schroeder MDDirector, Surgical Stone Disease, [facility]rolog[facility] InstituteProfessor of Surgery, [facility] MedicinePager Normal [facility] Medical CenterPROGRESSHNO ID: [id number]: Shelly (Shank Maker) O'NeillService: UrologyAuthor Type: Nurse PractitionerType: Progress NotesFiled: 10/12/2017 1:31 PMNote Text:UROLOGY SERVICE PROGRESS NOTEName: Darrell CmdBed: G090 013/D030-20VBI: [id number]: October 12, 2017ASSESSMENT AND PLANDarrell Handley Omar is a 67 year old male with history of HTN, nephrolithiasisnow POD#1 s/p PCNL and R JJ stent placement.#Neuro-Paincontrolled on Tylenol#CV/Ezvb-OWQ-Qrj stable#GI-Diet - GI Soft/regular diet; tolerating without N/V+Flatus. No BM.#- Scr 1.00-UOP good-Chirstian: draining manager manufacturing red urine#FEN-IVF NS @ 125 ml/hr#Activity - OOB to chair and Ambulate with assistance#DVT prophylaxis - SCDs, Pharmacologic DVT prophylaxiscontraindicated dueto bleeding risk#Antibiotics - Perioperative antibiotics - Ancef#Secondary Dx and ComplicationsHTN- c/w home medications; losartanHome urocit-K held#Discharge teaching - routine teaching#Disposition - discharge planning pending clinical courseSUBJECTIVE-Pain:Controlled-CP/SOB: Denies-N/V:Denies-Bowel function:+Flatus. No BM.-Ambulating: yesBrief HPI: No acute events throughout t he night. Denies fever, chills.Tolerating diet without nausea or vomiting. In good spirits. Eager fordischarge home.OBJECTIVEVital SignsBP 147/78 Pulse 79 Temp 36.7 ?C (98.1 ?F) (Oral) Resp 18 Ht 175.3cm (5' 9 ) Wt 80 kg (176 lb 5.9 oz) SpO2 95% BMI 26.05 kg/d5Ecpnl and OutputIntake/Output Summary (Last 24 hours) at 10/12/17 1302Last data filed at 10/12/17 1000 Gross per 24 hourIntake 4023 mlOutput 1975 mlNet 2048 mlDrains:NoneUrine: 1625ccPhysical ExamGeneral: Well appearing malein NADHEENT: Normocephalic, atraumaticCV:: RRR, hemodynamically stable, well-perfusedResp: breathing comfortably on RA.GI: Soft, nontender, nondistended.: Christian catheter draining manager manufacturing red urineEx tremities: No cyanosis or clubbing, No edemaNeuro: Alert [...] mg injection (ZOFRAN) 4 mg INTRAVENOUS q 6H PRNdocusate sodium 100 mg cap(s) (COLACE) 100 mg ORAL BIDzolpidem 5 mg tab(s) (AMBIEN) 5 mg ORAL HS PRNaluminum-magnesium hydroxide-simethicone 200-200-20 mg/5 mL 30 mL(MAALOX,MYLANTA,MAG-AL PLUS) 30 mL ORAL q 6 H PRNphenol 1 [place] (CHLORASEPTIC) 1 [place] MUCOUS MEMBRANE (TOPICAL MOUTH ANDTHROAT) q 2 H PRNsimethicone, chewable 80 mg tab(s) (MYLICON) 80 mg ORAL q 8 H PRNoxybutynin 5 mg tab(s) (DITROPAN) 5 mg ORAL q 8 H PRNoxyCODONE IR 5-10 mg tab(s) (ROXICODONE) 5-10 mg ORAL q 4 H PRNNo past medical history on file.[facility] HospitalXR 10/11/17IMPRESSION:NO ACUTE DISEASESIGNATURE: Shelly Cote CNP PAGER: [phone]: October 12, 2017TIME: 11:15amPlease page [phone] on weekends and after 4pm on weekdaysMercy Health Fairfield HospitalESSLAKEVILLE H[facility]ITAL ID: [id number]: Miguel (Res) BrykService: UrologyAuthor Type: ResidentType: Progress NotesFiled: 10/12/2017 6:47 AMNote Text:UROLOGY RESIDENT PROGRESS NOTEName: Darrell Handley BoydBed: G090 013/X688-44TFZ: [id number]: October 12, 2017 SUBJECTIVE- no acute events overnight- Pain: controlled-N/V : No- Tolerated clears, eager for food OBJECTIVEVital SignsPatient Vitals for the past 8 hrs: BP Temp Temp src Pulse Resp SpO2 Height Dbcesl23/10/18 1922 148/81 36.7 ?C (98.1 ?F) Oral [...] ?C (97.3 ?F) Temporal Art 92 16 100% - -Input and OutputIntake/Output Summary (Last 24 hours) at 10/11/17 2159Last data filed at 10/11/17 1824 Gross per 24 hourIntake 2000 mlOutput 825 mlNet 1175 mlUrine: 1625 (550cc overnight)Physical ExamGeneral: WDWN in NADHEENT: Normocephalic, atraumatic, nonicteric sclera, conjugate gazeCV: Regrate, warm, well-perfused, Hemodynamically stableResp: breathing comfortably on NCGI: Soft, nontender, nondistended. No rebound or guarding.: Christian catheter present; urine red. No CVATWound: Dressing dry and intact;Neuro: Alert and orientedPsych: Normal affectLab CBC, Coags, BMP, Mg, PhosRecent Labs 229 650WBC 14.41* 16.46*HB 11.9* 13.7HCT 35.9* 39.7PLT 124* 147*INR 1.0 --APTT27.4 --NA 142 --K 4.0 --CHLOR 103 --CO2 [...] 6 H PRNceFAZolin 2 g in dextrose (iso- osmotic) 100 mL (ANCEF, KEFZOL) 2 gINTRAVENOUSq 8 Hdocusate sodium 100 mg cap(s) (COLACE) 100 mg ORAL BIDzolpidem 5 mg tab(s) (AMBIEN) 5 mg ORAL HS PRNaluminum- magnesium hydroxide-simethicone 200-200-20 mg/5 mL 30 mL(MAALOX,MYLANTA,MAG-AL PLUS) 30 mL ORAL q 6 H PRNphenol 1 [place] (CHLORASEPTIC) 1 [place] MUCOUS MEMBRANE (TOPICAL MOUTH ANDTHROAT) q 2 H PRNsimethicone, chewable 80 mg tab(s) (MYLICON) 80 mg ORAL q 8 H PRNoxybutynin 5 mg tab(s) (DITROPAN) 5 mg ORAL q 8 H PRNoxyCODONE IR 5-10 mg tab(s) (ROXICODONE) 5-10 mg ORAL q 4 H PRN ASSESSMENT AND Celia Emmanuelle Nelson is a 67 year old male with h/o nephrolithiasis w/obstructive uropathy s/p R ureteral stent placement now POD#1 s/pCystoscopy, Removal of R JJ ureteral stent, R ureteroscopy, Rightpercutaneous renal access, Dilation of percutaneous renal access t ract,Right percutaneous nephrolithotomy (>3cm), Basketing of stones, Placementof [...] dueto bleeding risk#Antibiotics - Perioperative antibiotics - ancef#ComplicationsNone#Secondary Dx-HTN- home losartanHome urocit-K held #Discharge teaching - may need home going christian care teaching#Disposition - pending course, anticipate tomorrowThe patient's progress, lab findings, vitals, and clinical decision makingas documented above to be discussed with staff Dr. Schroeder. Miguel Zapata M.D.Urology PGY-2Pager: [phone] 2017Overnight and on weekends please page [phone] Health System Galion HospitalProtimeon [id number] Coag RelTime (Bld)1.0 {INR}Normal0.9-1.3 [facility] on above:Result Comment: Vitamin K Antagonist (VKA) Therapeutic Range: INR 2 to 3 (Target INR of 2.5)Note: For patients treated with VKA drugs, such as warfarin, the [employer] 2012 Guideline recommends a therapeutic INR range of 2 to 3 (target INR of 2.5). This recommendation includes high-risk patients with antiphospholipid syndrome with previous arterial or venous thromboembolism, current-generation mechanical or bioprosthetic aortic heart valve replacement.Note: Patients with mechanical aortic valve replacement and additional risk factors for thromboembolic events (atrialfibrillation, previous thromboembolism, LV dysfunction, hypercoagulable conditions) or an older gene ration mechanical AVR (i.e., ball in-Cage) or any mechanical MVR should have a INR therapeutic range of 2.5 to 3.5 (target INR of 3).Tammy GH, et al. Chest 2012, 141:7S-47SNishimgia RA, et al. [facility] 2017, 70: 252-289Performed By: #### PT, PTT, MG1 ####[facility] [address] [place], [place] [phone] Sec10.8 secNormal9.7-13.0[facility] on above:Performed By: #### PT, PTT, MG1 ####[facility] [address] [place], [place] [phone] Woody [id number] POSTHNO ID: [id number]: Teresita Thomas: AnesthesiologyAuthor Type: PhysicianType: Anesthesia PostOpFiled: [...] 11, 2017 : 4:07 PM PAGER/CONTACT #: [phone] [facility] HospitalBRIEF OP NOTon [id number] OP NOTHNO ID: [id number]: Miguel (Sudeep) BrykService: UrologyAuthor Type: ResidentType: Brief Op NoteFiled: 10/11/2017 3:17 PMNote Text:UROLOGY BRIEF OPERATIVE NOTELOG ID: [id number]/Procedure Date:10/11/2017Incision/Procedure Start Time: 1:38 PMIncision Close/Procedure End Time: 1513Patient Info:67 year old malePreop Diagnosis: Pre-Op Diagnosis Codes: [...] Size: 18Tract Size: 30 FrenchTract Dilation Device: BalloonSurgeon(s)/Proceduralist(s) and Band Booker(s):Surgeon(s) and Role: * Feliciano Schroeder- Primary * Miguel (Sudeep) Benny - Resident - Assisting * Damon (Toño) Katerine - FellowNo Additional StaffAnesthesia: GeneralFLUIDSIntake: 1200ccUrine Output: n/a, irrigationEstimated Blood Loss: 50 mlsAccidental punctures or Lacerations: noneComplications: NoneDrains: Christian, 20fr coude tipImplants: 7frx 28cm JJ ureteral stentCultures: NoneFindings: Soft stones in R Renal pelvis and R lower pole (>3cm). Lowerpole access. Stone free at end of the case.Specimens:Specimen ID Type Site Comments Sent Toother Stone stones sent to PACU with patient OtherPost-Op Plan of Care:To RNFSIGNATURE: Miguel Zapata MD PATIENT NAME: Darrell Xavier: October 11, 2017 : 3:11 PM PAGER/CONTACT #: [phone] after hours issues, please call the on-call urology pager [phone] Hospital [facility] and Differentialon [id number] Baso0.03 k/uLNormal<0.11CAvita Health System Galion HospitalComhelen [facility] on above:Performed By: #### CBCDIF ####[facility] [address], [place] [phone] Mono1.18 k/uLHigh<0.87[facility] CenterComment on above:Performed By: #### CBCDIF ####[facility] [place], [place] [phone] Neut12.38 k/uLHigh1.45-7.50[facility] on above:Performed By: #### CBCDIF ####[address] [phone]/100 WBC Auto (Bld)0.2 %NormalThe Jewish Hospital on above:Performed By: #### CBCDIF ####[place] [phone] DiffNormalCCincinnati VA Medical Center on above: Performed By: #### CBCDIF ####[address] [phone] 10*3/uLNormal<0.46[facility] on above:Performed By: #### CBCDIF ####[place] [phone]/100 leukocytes0.4 %[facility] on above:Performed By: #### CBCDIF ####[place] [phone] distribution width Auto Ratio (RBC)12.4 %Normal 11.5-15.0[facility] on above:Performed By: #### CBCDIF ####[address] Av[address], [place] [phone] (RBC)0.0 /100 JWCVdxtuz9AyotdkqupThe Jewish Hospital on above:Performed By: #### CBCDIF ####[address] [phone] (RBC)10*6/uLNormal<0.01 [facility] on above:Performed By: #### CBCDIF ####[address] [place] [phone] (RBC)4.42 10*6/uLNormal4.20-6.00[facility] Comment on above:Performed By: #### CBCDIF ####[place] [phone] (HCT)39.7 %Normal 39.0-51.0[facility] Medical CenterComment on above:Performed By: #### CBCDIF ####[place] [phone] mass conc (Bld)13.7 g/jFItffno97.0-17.0[facility] on above:Performed By: #### CBCDIF ####[place] [phone] 10*3/uLNormal1.00-4.00[facility] Medical CenterComment on above:Performed By: #### CBCDIF ####[place] [phone]/100 jorxrdicre32.1 %NormalThe Jewish Hospital on above:Performed By: #### CBCDIF ####[place] [phone] pGNormal 26.0-34.0[facility] on above:Performed By: #### CBCDIF ####[place] [phone] mass conc (RBC)34.5 g/dDQojxrr97.5-36.0[facility] Comment on above:Performed By: #### CBCDIF ####[place] [phone] dZMhalad34.0-100.0[facility] on above:Performed By: #### CBCDIF ####[place] [address] [address] AveCEmin[address], [place] [phone]/100 leukocytes7.2 %[facility] on above:Performed By: #### CBCDIF ####[address] AveCEmin[address], [place] [phone]/100 WBC Auto (Bld)75.1 %[facility] on above:Performed By: #### CBCDIF ####[address] Av[address], [place] [phone] mean volume (PMV)11.3 fLNormal9.0-12.7CCincinnati VA Medical Center on above:Performed By: #### CBCDIF ####[address] [place], [place] [phone] 10*3/gRRne238-276QgjjddfssThe [facility] Hospital on above:Performed By: #### CBCDIF ####[address] [phone] (Leukocytes)16.46 10*3/uLHigh3.70-11.00 [facility] on above:Performed By: #### CBCDIF ####[place] [address] [address], [place] [phone] Analysison 39-57-0388Ajqvfcss TypestoneNormalCCincinnati VA Medical Center on above:Performed By: #### ICA, CBCDIF, VITD, PTHI, CMP, URIC ####[address] AveCEminence, [place] [phone](NOTE)[facility] on above: Result Comment: Calculus Color: OFF WHITECalculus Size & Weight: MULTIPLE PIECES, 0.5788 GRAMSComposition: CALCIUM PHOSPHATE - 60% CALCIUM OXALATE MONOHYDRATE - 30% MINOR COMPONENTS - 10%This test was developed and its performance characteristicsdetermined by the [facility] [place] [facility]keemaria del carmen Pathology andLaboratory Medicine [place] ([facility]).It has not been cleared or approved by the FDA.[facility] is regulated under CLIA as qualified to performhigh- complexity testing.This test is usedfor clinical purposes. It should not be regarded asinvestigational or for research.Performed By: #### ICA, CBCDIF, VITD, PTHI, CMP, URIC ####[facility] [address]sw[address] [place], [place] [phone] PROGon [id number] [facility] ID: [id number]: Melita TenorioRn) Vincnezo RNService: (none)Author Type: Registered NurseType: N ursing Progress NoteFiled: 10/11/2017 8:01 PMNote Text:Admission/Transfer NotePATIENT NAME: Darrell MAZAoydMRN: [id number] admitted from PACU via stretcher in stable condition.Actions taken: Patient oriented to room, call light function, prescribedactivities, Patient rights and Quiet at night.This note was completed by: Nolberto KnightGerman [facility] ID: [id number]: EMILIANO So Rnervice: NursingAuthor Type: Registered NurseType: Nursing Progress NoteFiled: 10/11/2017 10:50 AMNote Text:PRE OP LEARNING ASSESSMENTPROCEDURE/SURGERY: SURGERY: PreopREADINESS TO LEARN: InterestedCOGNITIVE ABILITY: Alert and orientedMOTIVATIONTO LEARN: EagerFAMILY SUPPORT: High - Very involved in pt carePATIENT LEARNS BEST BY: Multiple MethodsFACTORS AFFECTING LEARNING: NonePHYSICAL LIMITATIONS AFFECTING LEARNING: NoneElectronically Signed By: May Moffett RN In Department: HOSPMAIN Y601HplkyeKmquudfqcGalion Hospital NOon [id number] NOHNO ID: [id number]: Feliciano Santanaervice: UrologyAuthor Type: PhysicianType: Operative ReportFiled: 10/12/2017 9:11 AMNote Text:OPERATIVE/PROCEDURE REPORTLOG ID: [id number]/Procedure Date: 10/11/2017Incision/Procedure Start Time: 1:38 PMIncision Close/Procedure End Time: 3:13 PMSurgeon(s)/Proceduralist(s) and Band Booker(s):Surgeon(s) and Role: * Feliciano Schroeder - Primary * Miguel (Sudeep) Benny - Resident - Assisting * Damon (Toño) Katerine - FellowProcedure(s):1. Cystoscopy2. Removal of R JJ ureteral stent3. R ureteroscopy4. Right percutaneous renal access5. Dilation of percutaneous renal access tract6. Right percutaneous nephrolithotomy (>3cm)7. Basketing of stones8. Placement of R ureteral JJstent9. Interpretation of Fluoroscopic imaging (>1hr)Anatomic Site: Kidney, [...] condition via theaforementioned surgery.Procedure Details:The patient was correctlyidentified and the operative plan was confirmedwith the patient and the operative team. A weight appropriate dose ofprophylactic antibiotics (Ancef) was administered intravenously prior tothe procedure and sequential compression devices were applied to the lowerextremities and activated prior to induction of anesthesia. Generalanesthesia was induced. The patient was then placed in the prone positi on.All pressure points were padded per protocol and the operative area wasprepped and draped in thestandard sterile fashion.First horticultural technical officer images were obtained noting two opacities in the area of theright kidney. A flexible cystoscope was used to perform cystourethroscopy.Urethra was notable for occlu sive lateral prostatic lobes. Using acystoscopic grasper, the indwelling right ureteral stent (placed prior toadmission) was brought to the meatus. A stiff glidewire was insertedthrough the stent butresistance was met at the proximal ureter, at [...] well. A 14 Fr coude tip christian wasinsertedinto the bladder after a straight 2-way catheter met resistance in theposterior urethra. A 13/15F x 36 cm ureteral access sheath was thenadvanced over the stiff glidewire wire up to the levelof the proximalureter. Flexible ureteroscopy was performed noting an approximate 1.5cmstone in the renal pelvis. Retrograde pyelogram was performed withcontrast injected via the scope and filing defect noted in the lower polecalyx consistent with a second stone. Ureteroscope was maneuvered to thissi te, a posterior lower pole calyx, and noted an approximately 2 cm stone. Both stones were noted to be soft with pieces breaking off when contactedby scope. The ureteroscope was kept in this calyx forpercutaneous access.The 18-gauge Chiba percutaneous access needle was then used to access thecalyx under direct vision. A stiff glidewire was advanced through theneedle sheath, grasped using a halo basket, and pulled out through theurethral meatus to gain ktnieut-bvu-bqmqdxn access.A glide catheterwas used to exchange the onhexep-gjn-essfqql guidewirefor an Amplatz superstiff wire. The ureteroscope was re-inserted to theaccessed calyx. An 8/10 Fr dilator was then used to gently dilate thetract. The tract was incised at the skin for 10 mm. The SmartPay Jieyin X- Forceballoon was advanced over the wire and noted [...] Flexible nephroscopy again confirmed there was no signi ficantstone burden remaining. The ureteral access sheath and [...] with a 2-0 prolene stitch. Dressing was applied .Fluoroscopic interpretation of images was performed to evaluate forguidance of the ureteroscope, accurate guidewire placement, monitor tractdilation and confirm proper stent positioning. The patienttolerated theprocedure well, emerged from anesthesia without incident, and wastransferred to PACU in stable condition.Pre-Op/Pre-Procedure Diagnosis: Pre-Op Diagnosis Codes: * Calculus of kidney [N20.0]Post-Op/Post-Procedure Diagnosis: Post-Op Diagnosis Codes: * Calculus of kidney [N20.0]Estimated Blood Loss: 50 mlsSpecimens:Specimen ID Type Site Comments Sent Toother Stone stones sent to PACU with patient OtherKidney stones for analysisImplantable Devices: Indwelling 7 Fr. X 28cm JJ ureteral st entDrains:20 Fr. Coude tip Christian catheterComplications: NoneQualifier: NoneThe primary surgeon/proceduralist performed the entire procedure withassistance from Dr. Garcias and Dr. Zapata.Miguel Zapata M.D.Urology PGY-2Pager: [phone] 20174:[phone] PMOvernight and on weekends please page [phone] Alexandre MDDirector, Surgical Stone Disease, [facility] RedfieldProfessor of Surgery, [facility] HospitalPager [phone] [facility] Conneaut Medical CenterPROGRESSon [id number] ID: [id number]: Tyler (Res) Cabrera CassandraosService: Pediatric UrologyAuthor Type: Residen tType: Progress NotesFiled: 10/11/2017 8:13 PMNote Text:UROLOGY SERVICE [...] (FLOMAX) 0.4 mg ORAL AT BEDTIMENaCl 0.9% ivinfusion 125 mL/hr INTRAVENOUS CONTINUOUSacetaminophen 1,000 mg tab(s) (TYLENOL) 1,000 mg ORAL q 6 HfentaNYL 50 mcg/mL 25-50 mcg injection (SUBLIMAZE) 25-50 mcg INTRAVENOUS q2 H PRNondansetron (PF) 4mg injection (ZOFRAN) 4 mg INTRAVENOUS q 6 H PRNceFAZolin 2 g in dextrose (iso- osmotic) 100 mL (ANCEF, KEFZOL) 2 gINTRAVENOUS q 8 Hdocusate sodium 100 mg cap(s) (COLACE) 100 mg ORAL BIDzolpidem 5 mg tab(s) (AMBIEN) 5 mg ORAL HS PRNaluminum-magnesium hydroxide-simethicone 200-200-20 mg/5 mL 30 mL(MAA LOX,MYLANTA,MAG-AL PLUS) 30 mL ORAL q 6 H PRNphenol 1 [place] (CHLORASEPTIC) 1 [place] MUCOUS MEMBRANE (TOPICAL MOUTH ANDTHROAT) q 2 [...] lb 5.9 oz) SpO2 99% BMI 26.05 kg/n7IAUQCJXC EXAM:GENERAL: no distressNEURO: GNHUPh2GWYLK: breathing comfortably on 2LCARDIAC: warm and well perfused throughoutABDOMEN: soft, mild distended, non tender.WOUND: CDIGU: Christian catheter present, red urine no clotsLABSCBC, Coags, BMP, Mg, PhosRecent Labs [id number] 16.46*HB 13.7HCT 39.7PLT 147*A/P:Darrell Nelson is a [...] routine teachingDischarge planning - pendingTyler Ramos MD.Pg [id number] Health System Galion HospitalPT EDon [id number] EDHNO ID: [id number]: Ccf ProviderService: (none)Author Type: PhysicianType: Patient EducationFiled: 10/11/2017 7:15 PMNote Text:[facility] Medical CenterPatient Education Report Name: DARRELL NELSON Date: 10/11/2017 Time: 7:15 PMPatient Ordered Video: Inpatient Fallsfrom [id number] via phone number [phone] at 7:15 PM NormalUniversity Hospitals Conneaut Medical CenterXR CHEST 1V FRONTAL PORTon [id number] CHEST 1V FRONTAL PORT* * *Final Report* * *DATE OF EXAM: Oct 11 2017 4:11PM ESX [id number] - XR CHEST 1V FRONTAL PORT / REASON: H/O nephrostomy * * * * Physician Interpretation * * * * HISTORY: H/O nephrostomyTECHNIQUE: Portable chestCOMPARISON: None.RESULT:The heart size is normal. There is nofocal pulmonary consolidation. No pleural effusion or pneumothorax. Partially seen hardware from lower cervical fusion.IMPRESSION:NO ACUTE DISEASETranscriptionist: TAYLER Transcribe Date/Time: Oct 11 2017 4:13PDictated by : TULIO ORDOÑEZ MDThis examination was interpreted and the report reviewed and electronically signed by: TULIO ORDOÑEZ MD on Oct 11 2017 4:13PM [id number] [facility]aut Medical CenterCNCOon 10-30-0944SQEYOtqhxz Text10/05/2017Darrell Cmd[address] [id number] Mr. Nelson:Your recent 24 hour urine test [...] for future kidney stones. You may contact [facility] [phone] with any questions or concerns.Sincerely,Feliciano Schroeder M.D.ELECTRONICALLY SIGNEDNormalCSCCI Hospital Lima and Differentialon [id number] Baso0.04 k/uLNormal<0.11 [facility]aut Medical CenterComment on above:Performed By: #### ICA, CBCDIF, VITD, PTHI, CMP, URIC ####[facility] [address] [place] [phone] Mono1.26 k/uLHigh<0.87[facility] on above:Performed By: #### ICA, CBCDIF, VITD, PTHI, CMP, URIC ####[place] [address] [address] [place] [phone] Neut6.39 k/uL Normal1.45-7.50[facility] on above:Performed By: #### ICA, CBCDIF, VITD, PTHI, CMP, URIC ####[place] [address] [address] [place] [phone]/100 WBC Auto (Bld)0.3 %Normal [facility] on above:Performed By: #### ICA, CBCDIF, VITD, PTHI, CMP, URIC ####[place] [address] [address] [place] [phone] DiffNormalCCincinnati VA Medical Center on above: Performed By: #### ICA, CBCDIF, VITD, PTHI, CMP, URIC ####[place] [address] [address] [place] [phone] 10*3/uLNormal<0.46[facility] on above:Performed By: #### ICA, CBCDIF, VITD, PTHI, CMP, URIC ####[place] [address] [address] [place] [phone]/100 leukocytes0.9 %Normal [facility] on above:Performed By: #### ICA, CBCDIF, VITD, PTHI, CMP, URIC ####[place] [address] [address] [place] [phone] distribution width Auto Ratio (RBC)12.9 %Normal 11.5-15.0[facility] on above:Performed By: #### ICA, CBCDIF, VITD, PTHI, CMP, URIC ####[place] [address] [address] veClevelJason [place] [phone] (RBC)0.0 /100 WBCNormal0 [facility] on above:Performed By: #### ICA, CBCDIF, VITD, PTHI, CMP, URIC ####[place] [address] [address] [place] [phone] (RBC)4.74 10*6/uLNormal4.20-6.00[facility] on above:Performed By: #### ICA, CBCDIF, VITD, PTHI, CMP, URIC ####[place] [address] [address] [place] [phone] (RBC)10*6/uLNormal<0.01[facility] Comment on above:Performed By: #### ICA, CBCDIF, VITD, PTHI, CMP, URIC ####[place] [address] [address] [place] [phone] (HCT)43.7 %Gxymfk13.0-51.0[facility] Comment on above:Performed By: #### ICA, CBCDIF, VITD, PTHI, CMP, URIC ####[place] [address] [address] [place] [phone] mass conc (Bld)14.2 g/lELimjni59.0-17.0[facility] on above:Performed By: #### ICA, CBCDIF, VITD, PTHI, CMP, URIC ####[place] [address] [address] [place] [phone] 10*3/uLNormal1.00-4.00[facility] on above:Performed By: #### ICA, CBCDIF, VITD, PTHI, CMP, URIC ####[place] [address] [address] [place] [phone]/100 tkfgktwmep49.8 %NormalTriHealth Bethesda Butler Hospitalment on above:Performed By: #### ICA, CBCDIF, VITD, PTHI, CMP, URIC ####[place] [address] [address] [place] [phone] dCWqfkur74.0-34.0[facility] on above:Performed By: #### ICA, CBCDIF, VITD, PTHI, CMP, URIC ####[place] [address] [address] [place] [phone] mass conc (RBC) 32.5 g/bNLjjdvx25.5-36.0[facility] Hospitalment on above:Performed By: #### ICA, CBCDIF, VITD, PTHI, CMP, URIC ####[place] [address] [address] [place] [phone] iDXgddwy52.0-100.0[facility] Hospitalment on above:Performed By: #### ICA, CBCDIF, VITD, PTHI, CMP, URIC ####[place] [address] [address] [place] [phone]/100 imrovulkqn85.0 %NormalUniversity Hospitals Conneaut Medical Center Comment on above:Performed By: #### ICA, CBCDIF, VITD, PTHI, CMP, URIC ####[place] [address] [address] [phone]/100 WBC Auto (Bld)56.0 %NormalThe [facility] Hospital on above:Performed By: #### ICA, CBCDIF, VITD, PTHI, CMP, URIC ####[place] [address] [address] [place] [phone] mean volume (PMV)11.2 fLNormal9.0-12.7CAvita Health System Galion HospitalComment on above:Performed By: #### ICA, CBCDIF, VITD, PTHI, CMP, URIC ####[facility] [address] Av[place], [place] [phone] 10*3/bRCckxdb349-281EzdzcjysbUniversity Hospitals Conneaut Medical Center Comment on above:Performed By: #### ICA, CBCDIF, VITD, PTHI, CMP, URIC ####[facility] [address] Av[address], [place] [phone] (Leukocytes)11.43 10*3/uLHigh3.70-11.00[facility] Medical CenterComhelen newberry joy hospital on above:Performed By: #### ICA, CBCDIF, VITD, PTHI, CMP, URIC ####[facility] [address] [place], [place] [phone] 56-11-5392RRBKKmnjbx Visit (UROMEMO) --------DARRELL NELSON ([id number]) 1950 [facility] Time Provider Tqqtcxioji65/12/17 10:30 AM FELICIANO SCHROEDER During your visit today, we recorded the following information about you: Pulse Blood pressure Weight Height 82/minute 169/91 79.4 kg 1.778 Marielena Schroeder MD 09/12/2017 7:38 PM SignedBasic HPI: 67 year old male who comes in for kidney stone management. Patienthas a history of kidney stones for over 20 years. [facility] 1.5 years [facility]. Patient has had calcium oxalate stones, butcurrent stones are suspected to be uric acid. Patient had blood work yesterdayin regards to uric acid, but does not know the results. Patient is currentlytaking urocit-k for the last 4-5years, but it was not for uric acid stones.Patient's brothers had kidney stones and both with parathyroid disease. Motheris DM. No family history of gout. Patient recently had right stent placed forobstructing stones last week. Tolerating stent well. GUROS: UA:Component Latest Ref Rng ANDamp; Units 09/12/2017Color Yellow YellowClarity Clear Cloudy (A)Glucose, Urine Negative mg/dL NegativeBilirubin, Urine Negative NegativeKetones, Urine Negative 1+ (A)Specific [place], Ur 1.005 - 1.030 1.016Hemoglobin/Blood,Ur Negative 2+ (A)pH, Urine 4.5 - 8.0 7.0Protein, Urine Negative mg/dL 30 (A)Urobilinogen Normal NormalNitrites Negative NegativeLeukest Negative 3+ (A)Comments SEE COMMENTWBC, Urine 0 - 5 /HPF ANDgt;25 (A)RBC, Urine 0 - 3 /HPF ANDgt;25 (A)Epithelial Cells /HPF SEE COMMENTUrine Kelby Comment SEE COMMENTForce of Stream: moderateNOCTURIA: Yes: 5-6 times /nightDay Time Frequency: 2hrHesitancy: NoIntermittency: NoIncomplete Empt yaw: NoPost void Dribbling: Yes:Urinary Retention Hx:NoDouble Voiding: Yes:Urgency: Yes:Dysuria: NoIncontinence history: No, but is wearing a depends due to stentGross hematuria history: NoUTI Hx: Yes: currently on levaquinStone Event Hx: Yes: ESWL 1 year agoReview, other organ system:GI:Blood: NoC onstipation: NoDiarrhea: Yes, from atbNausea/Vomiting: NoREVIEW OF SYSTEMSPAIN ASSESSMENT: Negativefor pain, history of chronic pain, or currenttreatment for a chronic pain condition.GENERAL: No weight loss, malaise or feversRESPIRATORY: Negative for cough, hemoptysis, wheezing, COPD, dyspnea orshortness of breathCARDIOVASCULAR: HypertensionGI: No nausea, vomiting, or diarrheaGU: hx of stonesENDOCRINE: Negative for cold or heat intolerance, polyuria, polydipsia andgoiterNEURO: No history of headaches, syncope, paralysis, seizures or tremorsOTHER: patient presents for surgical consultSaALE Pang UROLOGY NOTE:I personally interviewed the patient, examined, [...] of hyperparathyroidism, Low vitamin D level,and Abnormal urinalysiswere also pertinent to this visit.Plan: Right PCNL; will set up for 10/11/17. Consent done and booklet given.All questions answered. Metabolic w/u and night time hydration protocol.I spent ANDgt;40 minutes in this visit (including reviewing x-rays and recordsplus patient discussion), with more than 50% of the total bkru-ac-ehyz time ofthe visit devoted to patient counseling/coordination of care.Feliciano Schroeder, MDDirector, Surgical Stone Disease, [facility] InstituteProfessor of Surgery, [facility] HospitalPager [phone]/12/2017Bonita Ozuna CNP 09/12/2017 7:38 PM SignedUROLOGY SURGICAL HANDamp;PSERVICE DATE: 09/12/2017REFERRING PROVIDER: Cleveland Llanes MD[address] [place] [id number]: No PcpGENDER:SUBJECTIVECHIEF COMPLAINT: Pre-op examHISTORY OF PRESENT ILLNESS: Mr. Nelson is a 67 year old male who presents forpre op eval. Denies renal colic, fever, chills, n/v dysuria or grosshematuria. Pt had stent placed on Monday09/08/17FUNCTIONAL STATUS: Walk ablock or two on level ground (2.75 METs)Do moderate work around the house such as vacuuming, sweeping floors, orcarrying in groceries (3.50 METs)Do yardwork, such as raking leaves, weeding,or pushinga power mower (4.50 METs)No past medical history on file.No past surgical history on file.No familyhistory on file.Social HistorySubstance Use Topics- Smoking status: Never Smoker- Smokeless tobacco: Never Used- Alcohol use NoREVIEW OF SYSTEMS:General: General: Well developed, well nourished. No ac sauk-suiattle distressHEENT: Negative for sore throat, difficulty swallowing.Negative for frequent or significant headaches, changes in vision or hearing.Cardiovascular: No history of cardiovascular symtoms orproblems.No history of angina, CHF, [place], cardiac surgery of stents.Respiratory: Negative for currentcough, dyspnea. No hx of pneumonia in thepast six weeksPositive: PND, sinus drainage from allergiesG astrointestinal: No history of GERD, PUD, abd pain, difficulty swallowing, GIbleed.Renal: +stonesMusculoskeletal: Negative for joint pain or swelling, back pain or muscle pain.Skin: Negative for lesions, rash and itching.Psychological: No history of psychiatric symptoms or problems.Neurologic: No history of TIA's, stroke, TELEVISION SERVICE ENGINEER tumor, impaired sensorium,hemiplegia, paraplegia or quadriplegia. No neurological symptoms or problems.Hematology/Oncology: No history of bleeding or clotting disorder. Ptis nottaking anti-coagulation or platelet medications. No history [...] 10ANDquot;) Wt 79.4 kg (175 lb) BMI25.11 kg/m 2Temperature Max: @TMAXREFRESH(24)@ALLERGIES:ALLERGIESNo Known AllergiesLABS:No results found for: David results found for: Marc results found for: PSAGlucose, Urine (mg/dL)Date Value09/12/2017 Negative Bilirubin, Urine (no units)Date Value09/12/2017 Negative Ketones, Urine (nounits)Date Value09/12/2017 1+ (A) Specific [place], Ur (no units)Date Value09/12/2017 1.016 Hemoglobin/Blood,Ur ( )Date Value09/12/2017 2+ (A) pH, Urine (no units)Date Value09/12/2017 7.0 Protein, Urine (mg/dL)Date Value09/12/2017 30 (A) Nitrites (no units)Date Value09/12/2017 Negative WBC, Urine (/HPF)Date Value09/12/2017 ANDgt;25 (A) Color (no units)Date Value09/12/2017 Yellow Clarity (no units)Date Value09/12/2017 Cloudy(A) MEDICATIONS:(Not in a hospital admission)Current Outpatient Prescriptions:multivitamintablet Take 1 tablet by mouth once daily.potassium citrate ER (UROCIT-K) 10 mEq (1,080 mg) TbER 10 m Eq.tamsulosin ER (FLOMAX) 0.4 mg cp24 0.4 mg.oxybutynin (DITROPAN) 5 mg tablet 5 mg.losartan (COZAAR) 25 mg tablet Take 25 mg by mouth once daily.levoFLOXacin (LEVAQUIN) 500 mg tablet 500 mg.No current facility-administered medications for this visit.DIAGNOSIS, ASSESSMENT AND PLANThere are no active hospital problems to display for this patient.Assessment ANDamp; Plan:N20.0 Calculus, kidney (primary encounter diagnosis)N20.1 Calculus of dqrakvN19.9 Right flank painI10 Essential ahiqkqhzgujiC80.1 Family history of pfywjfsqeeqermmU75.49 Family history of uoicijhilizqhwwyanzM09.9 Low vitamin D arporG33.90 Abnormal urinalysisGLICKMAN UROLOGICAL AND KIDNEY INSTITUTEPRE-OP NOTEDate [...] 11:45 AM PAGER/CONTACT #:Referring Provider: CLEVELAND LLANES [[id number]]Allergies As of Date: 09/12/2017(NoKnown Allergies)Date Reviewed: 09/12/2017Reviewed by: Az Ann MA - Fully AssessedPrimary Visit Diagnosis:Calculus, kidney [N20.0] Other Visit Diagnoses:Calculus of ureter [N20.1] Right flank pain [R10.9] Essential hypertension [I10] Family history of nephrolithiasis [Z84.1] Family history of hyperparathyroidism [Z83.49] Low vitamin D level [E55.9] Abnormal urinalysis [R82.90]Order(s):UA CHEMSTRIP ONLY [SQUA] Order #: [id number] FUTURE UA CHEMSTRIP ONLY [SQUA] Order #: [id number]. #:[id number] VITAMIN D 25 HYDROXY [SQVITD] Order #: [id number] FUTURE CBC + DIFF [SQCBCDIF] Order #: [id number] FUTURE COMP METABOLIC PANEL [SQCMP] Order #: [id number] FUTURE PTH INTACT BLD[SQPTHI] Order #: [id number] FUTURE URIC ACID BLOOD [SQURIC] Order #: [id number] FUTURE TYPE + SCREEN,30 DAY [EXMSOM17] Order #: [id number] FUTURE CONFIRM BLOOD TYPE [SQCONABO] Order #: [id number] FUTURE ECG COMPLETE W INTERPRETATION [ECG01] Order #: [id number] FUTURE [facility]ALTH[facility] [6586684] Order #: [id number] CALCIUM IONIZED B [SQICA] Order #: [id number] FUTURE URINE CULTURE [SQURCUL] Order #: [id number]. #:[id number] as of 09/12/2017 Sig: MULTIVITAMIN TABLET Take [...] Disposition History RecordedLetter TextDecember 2016Cleveland Llanes MD[address] [facility] [address]OOAA: Katherine Nelson NO: [id number] OF SERVICE: 09/12/2017Dear Dr. Llanes,[facility] [place] [facility] [place].E nclosed is a copy of my clinic note which should be self-explanatoryregarding findings, recommendations, and treatment plan. Please don'thesitate to contact me if there are questions.Sincerely,Feliciano Schroeder M.D.Staff Urologist, [facility] Cross HospitalELECTRONICALLY SIGNEDcc: Abigail Sanchez M.D., [address] [place] [phone] Number: [id number] Status:Closed by FELICIANO SCHROEDER MD on 09/12/17NormalCAvita Health System Galion HospitalCalcium, Ionizedon 91-14-8958Icozswi9.14 mmol/LNormal1.08-1.30 [facility] on above:Performed By: #### ICA, CBCDIF, VITD, PTHI, CMP, URIC ####[facility] [address] [place], [place] [phone], Ionized1.20 mmol/LNormal1.08-1.30[facility] on above:Performed By: #### ICA, CBCDIF, VITD, PTHI, CMP, URIC ####[place] [address] [address] [place] [phone] Metabolic Panelon 92-01-0491Qlknghl aminotransferase (ALT) 43 U/IVjkmly04-37BpsiczcpcThe [facility] Hospital on above:Performed By: #### ICA, CBCDIF, VITD, PTHI, CMP, URIC ####[place] [address] [address] [place] [phone] g/dLLow3.9-4.9CCincinnati VA Medical Center on above:Performed By: #### ICA, CBCDIF, VITD, PTHI, CMP, URIC ####[address] AvKaren [place] [phone] phosphatase (ALP)98 U/HWbsdgy23-677CiandeqiiThe Jewish Hospital on above:Performed By: #### ICA, CBCDIF, VITD, PTHI, CMP, URIC ####[place] [address] [address] [place] [phone] gap15 mmol/LNormal9-18[facility] on above:Performed By: #### ICA, CBCDIF, VITD, PTHI, CMP, URIC ####[place] [address] [address] [place] [phone] aminotransferase (AST)40 U/ITopeyd69-13BdbtorklpThe Jewish Hospital on above:Performed By: #### ICA, CBCDIF, VITD, PTHI, CMP, URIC ####[place] [address] [address] [place] [phone] (total) 0.5 mg/dLNormal0.2-1.3CCincinnati VA Medical Center on above:Performed By: #### ICA, CBCDIF, VITD, PTHI, CMP, URIC ####[place] [address] [address] [place] [phone] mg/dLNormal8.5-10.2 [facility] on above:Performed By: #### ICA, CBCDIF, VITD, PTHI, CMP, URIC ####[place] [address] [address] [place] [phone] mmol/NIdobyl33-612PcunxlkerUniversity Hospitals Conneaut Medical Center Comment on above:Performed By: #### ICA, CBCDIF, VITD, PTHI, CMP, URIC ####[place] [address] [address] [place] [phone] mmol/PUnrgpt30-30AiteebakqThe Jewish Hospital on above:Performed By: #### ICA, CBCDIF, VITD, PTHI, CMP, URIC ####[place] [address] [address] [place] [phone] mg/dLNormal0.73-1.22[facility] on above:Performed By: #### ICA, CBCDIF, VITD, PTHI, CMP, URIC ####[place] [address] [address] [place] [phone] (non-black)mL/min/{1.73_m2} NormalThe Jewish Hospital on above:Performed By: #### ICA, CBCDIF, VITD, PTHI, CMP, URIC ####[place] [address] [address] [phone] Comment: eGFR (Estimated GFR) Units of measure: mL/min/1.73 meters squaredeGFR is derived from the reexpressed MDRD Study equation using the following parameters: serum creatinine, age, genderand race. The creatinine assay has been calibrated to be traceable to IDMS.An eGFR <60 mL/min/1.73m2 for >3 months is consistent with chronic kidney disease. Refer to KDOQI guidelines for clinical interpretation.In patients with unstable renal function, e.g. those with acute kidney injury, the eGFR may not accurately reflect actual GFR.Glucose mass conc92 mg/wOSjabks93-08PfosiqgktThe Jewish Hospital on above:Result Comment: The [place] Diabetes Association (ADA) provides guidance for cutoff values for fasting glucose and random glucose. The ADA defines fasting as no caloric intake for at least 8 hours. F asting plasma glucose results between 100 to 125 mg/dL indicate increased risk for diabetes (prediabetes).Fasting plasma glucose results greater than or equal to 126 mg/dL meet the criteria for diagnosis of diabetes. In the absence of unequivocal hyperglycemia, results should be confirmed by repeattesting. In a patient with classic symptoms of hyperglycemia or hyperglycemic crisis, random plasmaglucose results greater than or equal to 200 mg/dL meet the criteria for diagnosis of diabetes.Reference: Standards of Medical Care in Diabetes 2016, [place] Diabetes Association. Diabetes Care. 2016.39(Suppl 1).Performed By: #### ICA, CBCDIF, VITD, PTHI, CMP, URIC ####[place] [address] [place] [phone] molar conc4.0 mmol/LNormal 3.7-5.1CCincinnati VA Medical Center on above:Performed By: #### ICA, CBCDIF, VITD, PTHI, CMP, URIC ####[place] [address] [place] [phone] g/dLNormal6.3-8.0[facility] on above:Performed By: #### ICA, CBCDIF, VITD, PTHI, CMP, URIC ####[place] [address] [place] [phone] mmol/PQrmanw900-581LjermpychThe [facility] Hospital on above:Performed By: #### ICA, CBCDIF, VITD, PTHI, CMP, URIC ####[place] [address] [place] [phone] nitrogen 10 mg/dLNormal9-24[facility] on above:Performed By: #### ICA, CBCDIF, VITD, PTHI, CMP, URIC ####[facility] [address] [place], [place] [phone] Blood Typeon 27-73-8188KZJ/RH(D) PositiveNormalCAvita Health System Galion HospitalComment on above:Performed By: #### CONABO ####[facility] [place], [place] [phone] PHYSICALon [id number] PHYSICALHNO ID: [id number]: Bonita (Shank Maker) DigennaroService: (none)Author Type: Nurse PractitionerType: HANDPFiled: 09/12/2017 7:38 PMNote Text:UROLOGY SURGICAL HANDPSERVICE DATE: 09/12/2017REFERRING PROVIDER: Cleveland Llanes MD[address] [place] [id number]: No PcpGENDER:SUBJECTIVECHIEF COMPLAINT: Pre-op examHISTORY OF PRESENT ILLNESS: Mr. Nelson is a 67 year old male who presentsfor pre op eval. Denies renal colic, fever, chills, n/v dysuria or grosshematuria. Pt had stent placed on Monday09/08/17FUNCTIONAL STATUS: Walk a block or two on level ground (2.75 METs)Do moderate work around thehouse such as vacuuming, sweeping floors, orcarrying in [...] symtoms or problems.No history of angina, CHF, [place], cardiac surgery of stents.Respiratory: Negative for current cough, dyspnea. No hx of pneumonia inthe past six weeksPositive: PND, sinus drainage from allergiesGastrointestinal: No history of GERD, PUD, abd pain, difficultyswallowing, GI bleed.Renal: +stonesMusculoskeletal: Negative for joint pain or swelling, back pain or musclepain.Skin: Negative for lesions, rash and itching.Psychological: No history of psychiatric symptomsor problems.Neurologic: No history of TIA's, stroke, TELEVISION SERVICE ENGINEER tumor, impaired sensorium,hemiplegia, paraplegia or quadriplegia. No neurological symptoms orproblems.Hematology/Oncology: No history of bleeding or clotting disorder. Pt isnot taking anti-coagulation or platelet medications. No history ofhema tological symptoms or problems.Endocrine: No history of endocrinological symtoms or problemsNo history of DM; has not taken steroids w/in past 30 days.Negative for excessive sweating, thirst or hungerPHYSICAL EXAM:General Appearance/ Constitutional: Well developed, well nourished, and inno apparentdistressHead and Neck normal, no jugular venous extension, [...] ) Wt 79.4 kg (175 lb) BMI25.11 kg/n9Bmnxdmmlamd Max: @TMAXREFRESH(24)@ALLERGIES:ALLERGIESNo Known AllergiesLABS:No results found for: BUNNo results found for: CREATNo results found for: PSAGlucose, Urine (mg/dL)Date Value09/12/2017 Negative Bilirubin, Urine (no units)Date Value09/12/2017 Negative Ketones, Urine (no units)Date Value09/12/2017 1+ (A) Specific Montrose, Ur (no units)ArjeScsmx94/12/2017 1.016 Hemoglobin/Blood,Ur ( )Date Value09/12/2017 2+ (A) pH, Urine (no units)Date Value09/12/2017 7.0 Protein, Urine (mg/dL)Date Value09/12/2017 30 (A) Nitrites (no units)Date Value09/12/2017 Negative WBC, Urine (/HPF)Date Value09/12/2017>25 (A) Color (no units)Date Value09/12/2017 Yellow Clarity (no units)Date Valu 09/12/2017 Cloudy (A) MEDICATIONS:(Not in a hospital admission)Current Outpatient Prescriptions:multivitamin tablet Take 1 tablet by mouth once daily.potassium citrate ER (UROCIT-K) 10 mEq (1,080 mg) TbER 10 mEq.tamsulosin ER (FLOMAX) 0.4 mg cp24 0.4 mg.oxybutynin (DITROPAN) 5 mg tablet 5mg.losartan (COZAAR) 25 mg tablet Take 25 mg by mouth once daily.levoFLOXacin (LEVAQUIN) 500 mg tablet 500 mg.No current facility-administered medications for this visit.DIAGNOSIS, ASSESSMENT AND PLANThere are no active hospital problems to display for this patient.Assessment AND Plan:N20.0 Calculus, kidney (primary encounter diagnosis)N20.1 Calculus of eujztdY78.9 Right flank painI10 Essential zhgouasnpgxhV49.1 Family history of ymuxbojzncbcpniB30.49 Family history of jsyecowlzgldkgmbuhdN57.9 Low vitamin D plezuM18.90 Abnormal urinalysisGLICKMAN UROLOGICAL AND KIDNEY INSTITUTEPRE-OP NOTEDateof Procedure: 10/11/17Procedure/Surgery: PCNLDiagnosis: stonesPrimary Surgeon: Leeannequest Score: [...] NoAll testing on cureform has been scheduled: YesConsentSigned: Yes.DOS Orders Placed and Signed: Pended. Physician will sign and release.Pre-op HANDP Doneby Nurse Practitioner: Yes.PATIENT INSTRUCTIONS FOR SURGERY1.) DO NOT HAVE ANYTHING TO EAT OR DRINKAFTER MIDNIGHT THE DAY BEFORESURGERY except for certain morning medications as instructed by thedoctor. Candy, mints, gum, and smoking are NOT permitted. If the surgeryis scheduled for the afternoon,you may have water during the morning ofsurgery [...] for surgery pendingLABS and ucx.Bonita Ozuna CNPElectronically sign edSIGNATURE: Bonita Ozuna CNP PATIENT NAME: Darrell Xavier: September 12, 2017 : 11:45 AM PAGER/CONTACT #:[facility] [phone] Update ([facility]) --------OMARDARRELL Handley ([id number]) 1950 MDate Time Provider Ncediwqltr40/12/17 ASHTYN RABAGO (RN) [facility] During your visit today, we recorded the following information about you:Allergies As of Date: 09/12/2017(No Known Allergies)Date Reviewed: 09/12/2017Reviewed by: Az Ann MA - Fully AssessedOrder(s):SURGICAL REQUEST - ELECTIVE [[id number]] Order #: [id number]: 1Prescriptions as of 09/12/2017 Sig: POTASSIUM CITRATE ER 10 MEQ (* 10 mEq. TAMSULOSIN 0.4 MG CAPSULE 0.4 mg. OXYBUTYNIN CHLORIDE5 MG TABL* 5 mg. LOSARTAN 25 MG TABLET Take 25 mg by mouth once nella* LEVOFLOXACIN 500 MG TABLET 500 mg. MULTIVITAMIN TABLET Take 1 tablet by mouth once d*Problem List As Of Date 09/12/2017 Noted Resolved Calculus, kidney [N20.0] INVALID FOR* Calculus of ureter [N20.1] INVALID FOR* Right flank pain[R10.9] INVALID FOR* Essential hypertension [I10] INVALID FOR* Family history of nephrolithiasis [Z84.1] INVALID FOR* Family history of hyperparathyroidism [Z83.49] INVALID FOR* Low vitamin D level [E55.9] INVALID FOR* Abnormal urinalysis [R82.90] INVALID FOR* Calculus of kidney [N20.0] INVALID FOR* More...Follow-up and Disposition History RecordedEncounter Number: [id number] Status:Closed by ASHTYN RABAGO on 09/12/17[facility] [place]Patient:Darrell Nelson LMRN: Height:5' 10 (1.778 m)Weight:175 lb (79.379 kg)Outpatient Medications as of 10/11/17:potassium citrate ER (UROCIT-K) 10 mEq (1,080 mg) TbERtamsulosin ER (FLOMAX) 0.4 mg kc40sqmkxlgg (COZAAR) 25 mg tabletmultivitamin tabletAdmission/Clinic Administered Medications as of 10/11/17:0.9% NaCl 2-10 mLlactated ringers infusionceFAZolin 2 g in dextrose (iso-osmotic) 100 mL (ANCEF,KEFZOL)Problem List:Calculus, kidney [N20.0]Calculus of ureter [N20.1]Right flank pain [R10.9]Essential hypertension [I10]Family history of nephrolithiasis [Z84.1]Family history of hyperparathyroidism [Z83.49]Low vitamin D level [E55.9]Abnormal urinalysis [R82.90]Calculus of kidney [N20.0]Allergies: No Known AllergiesDate Verified:10/11/17Lab ValuesLab Value Units Date High LowPOTA* 4.0 mmol/L 09/12/2017 5.1 3.7HEMA* 43.7 % 09/12/2017 51.0 39.0Progress Notes ([facility] MAIN):Feliciano Schroeder MD 09/12/2017 7:38 PM SignedBasic HPI: 67 year old male who comes in for kidney stone management. Patienthas a history of kidney stones for over 20 years. [facility] 1.5 years [facility]. Patient has [...] DM. No family history of gout. Patient recentlyhad right stent placed forobstructing stones last week. Tolerating stent well. GUROS: UA:Component Latest Ref Rng AND Units 09/12/2017Color Yellow YellowClarity Clear Cloudy (A)Glucose, Urine Negative mg/dL NegativeBilirubin, Urine Negative NegativeKetones, Urine Negative 1+ (A)Specific Montrose, Ur 1.005 - 1.030 1.016Hemoglobin/Blood,Ur Negative 2+ [...] Hx: Yes: ESWL 1 year agoReview, other organsystem:GI:Blood: NoConstipation: NoDiarrhea: Yes, from atbNausea/Vomiting: NoREVIEW OF [...] will be communicated back to the requesting bonita amaral by way ofshared Medical record or letter [...] Patient has someLUTS with nocturia and some urgeincontinence from the stent. U/A is verycellular and [...] with more than 50% of the total bpqx-pa-vrlg time of thevisit devoted to patient counseling/coordination of care.Feliciano Schroeder, MDDirector, Surgical Stone Disease, [facility] InstituteProfessorof Surgery, [facility] HospitalPager [phone]/12/2017Previous VersionHeisabela Ozuna CNP 09/12/2017 7:38 PM SignedUROLOGY SURGICAL HANDPSERVICE DATE: 09/12/2017REFERRING PROVIDER: Cleveland Llanes MD[address] [facility] [id number]: No PcpGENDER:SUBJECTIVECHIEF COMPLAINT: Pre-op examHISTORY OF PRESENT [...] symtoms or problems.No history of angina, CHF, [place], cardiac surgery of stents.Respiratory: Negative for current cough, dyspnea. No hx of pneumonia in the pastsix weeksPositive: PND, sinus drainage from allergiesGastrointestinal: No history of GERD, PUD, abd pain, difficulty swallowing, GIbleed.Renal: +stonesMusculoskeletal: Negative for joint pain or swelling, back pain or muscle pain.Skin: Negative for lesions, rash and itching.Psychological: No history of psychiatric symptoms or problems.Neurologic: No history of TIA's, stroke, TELEVISION SERVICE ENGINEER tumor, impaired sensorium,hemiplegia, paraplegia or quadriplegia. No neurological symptoms or problems.Hematology/Oncology: No history of bleeding or clotting disorder. Pt is nottaking anti-coagulation or platelet medications. No history of h ematologicalsymptoms or problems.Endocrine: No history of endocrinological symtoms [...] Non-tender and No masses, hepatosplenomegalyExtremities: Radial pulses i ntact, no edema notedBack: Normal back and mobilityNeurological: Normal cognition and motor skills.Skin: Color, texture, turgor normal.VITALS:BP 169/91 Pulse 82 Ht 177.8 cm (5' 10 ) Wt 79.4 kg (175 lb) BMI 25.11kg/k3Uxtvnkdovgw Max: @TMAXREFRESH(24)@ALLERGIES:ALLERGIESNo Known AllergiesLABS:No results found for: BUNNo results found for: CREATNo results found for: PSAGlucose, Urine (mg/dL)Date Value09/12/2017 Negative Bilirubin, Urine (no units)Date Value09/12/2017 Negative------ ----Ketones, Urine (no units)Date Value09/12/2017 1+ (A) Specific Mont[place], Ur (no units)Date Value09/12/2017 1.016 Hemoglobin/Blood,Ur ( )Date Value09/12/2017 2+ (A) pH, Urine (no units)Date Value09/12/2017 7.0 Protein, Urine (mg/dL)Date Value09/12/2017 30 (A) Nitrites (no units)Date Value09/12/2017 Negative WBC, Urine (/HPF)Date Value09/12/2017 >25 (A) Color (no units)Date Value09/12/2017 Yellow Clarity (no units)Date Value09/12/2017 Cloudy (A) MEDICATIONS:(Not in a hospital admission)Current Outpatient Prescr iptions:multivitamin tablet Take 1 tablet by mouth once daily.potassium citrate ER (UROCIT-K) 10 mEq (1,080 mg) TbER 10 mEq.tamsulosin ER (FLOMAX) 0.4 mg cp24 0.4 mg.oxybutynin (DITROPAN) 5 mg tablet5 mg.losartan (COZAAR) 25 mg tablet Take 25 mg by mouth once daily.levoFLOXacin (LEVAQUIN) 500 mg tablet 500 mg.No current facility-administered medications for this visit.DIAGNOSIS, ASSESSMENT AND PLANThere are no active hospital problems to display for this patient.Assessment AND Plan:N20.0 Calculus, kidney (primary encounter diagnosis)N20.1 Calculus of eqvfsoH08.9 Right flank painI10 Essential jtbhzvbyhzlqC80.1 Family history of bzpmfarvugyuwlmA05.49 Family history of ucihkjpudizstauvoecO63.9 Low vitamin D ebnrqZ02.90 Abnormal urinalysisMISSION HOSPITAL MCDOWELL UROLOGICAL AND KIDNEY INSTITUTEPRE-OP NOTEDate of Procedure: 10/11/17Procedure/Surgery: PCNLDiagnosis: stonesPrimajerry Surgeon: Alanna Score: 2Pain Assessment: Are you [...] certain morning medications as instructed by thedoctor. Candy,mints, gum, and smoking are NOT permitted. If the [place], you may have water during the morning of surgery if permitted by yoursurgeon.2.) Medications to be taken on the morning of surgery with a few sips of water:Per discussion3.) Please bring all your p rescribed inhalers (if you have any you normallytake) [...] September 12, 2017 : 11:45 AM PAGER/CONTACT #:Dong [facility] Conneaut Medical CenterNahomy [phone] ID: [phone]: Feliciano NobleService: (none)Author Type: PhysicianType: Progress NotesFiled: [...] acid, but does not know theresults. Patient iscurrently taking urocit-k for the last 4-5 years, butit was not for uric acid stones. Patient's brothers had kidney stones andboth with parathyroid disease. Mother is DM. No family history of gout.Patient recently had right stent placed for obstructing stones last week.Tolerating stent well.======== GUROS: UA:Component Latest Ref Rng AND Units09/12/2017Color Yellow YellowClarity Clear Cloudy (A)Glucose, Urine Negative mg/dL NegativeBilirubin, Urine Negative NegativeKetones, Urine Negative 1+ (A)Specific Mont[place], Ur 1.005 - 1.030 1.016Hemoglobin/Blood,Ur Negative 2+ (A)pH, Urine 4.5 - 8.0 7.0Protein, Urine Negative mg/dL 30 (A)Urobilinogen Normal NormalNitrites Negative NegativeLeukest Negative 3+ (A)Comments SEE COMMENTWBC, Urine 0 - 5 /HPF >25 (A)RBC, Urine 0 - 3 /HPF >25 (A)Epithelial Cells /HPF SEE COMMENTUrine Kelby Comment SEE COMMENTForce of Stream: moderateNOCTURIA: Yes: 5-6 times /nightDay Time Frequency: 2hrHesitancy:NoIntermittency: NoIncomplete Emptying: NoPost void Dribbling: Yes:Urinary Retention [...] headaches, syncope, paralysis, seizures or tremorsOTHER: patient pres ents for surgical consultSara ALE Rabago UROLOGY NOTE:I personally interviewed the patient, examined, confirmed and edited thehistory that was documented by Ms Rabago RN and ancillary personnel.Consultation requested by Dr. Llanes for an opinion regarding large stoneburden right UPJ and upper rightureter per outside CT (reviewed indepth). My final [...] very cellular and culture was sent.Imp: The primaryencounter diagnosis was Calculus, kidney. Diagnoses ofCalculus of ureter, Right flank pain, Essential hypertension, Familyhistory of nephrolithiasis, Family history of hyperparathyroidism, LowvitaminD level, and Abnormal urinalysis were also pertinent to thisvisit.Plan: Right PCNL; will set up for 10/11/17. Consent done and bookletgiven. All questions answered. Metabolic w/u and night time hydrationprotocol.I spent >40 minutes in this visit (including reviewing x-rays and recordsplus patientdiscussion), with more than 50% of the total txdt-dm-hkjjhoej of the visit devoted to patient counseling/coordination of care.Feliciano Schroeder, MDDirector, Surgical Stone Disease, [facility] InstituteProfessor of Surgery, [facility] HospitalPager [phone]/12/2017NormalCAvita Health System Galion HospitalPTH, [place] 24-94-1191BYE, Qpxmwh04 pg/dWIzqcjr43-15GyrmzeqtdUniversity Hospitals Conneaut Medical CenterComment on above:Performed By: #### ICA, CBCDIF, VITD, PTHI, CMP, URIC ####[place] [address] [address], [place] [phone] and SCR (30D)on 39-87-1143VNN/RH(D)PositiveNoalCAvita Health System Galion HospitalComment on above: Performed By: #### TSCR30 ####[place] [address] [address], [place] [phone] ScreenNegativeNoalCAvita Health System Galion HospitalComment on above:Performed By: #### TSCR30 ####[facility], [place] [phone] Acidon 16-54-9030Mqvke3.9 mg/dLNormal4.0-8.1CAvita Health System Galion HospitalComment on above: Performed By: #### ICA, CBCDIF, VITD, PTHI, CMP, URIC ####[facility] Ofpxbkfhewbf[address] AvMil[place], [place] [phone] 95-03-1628Mciarhzqn, UrineNegativeNormalNegativeUniversity Hospitals Conneaut Medical Center Comment on above:Performed By: #### UA ####[place] [address] [address] [phone] COMMENTNormSt. Rita's Hospital on above:Result Comment: Microscopic Examination PerformedPerformed By: #### UA ####[place] [phone] (RBC)10*6/uLCritically abnormal 0-3CCincinnati VA Medical Center on above:Performed By: #### UA ####[place] [phone] mass conc (Bld)2+Critically abnormalNegativeThe Jewish Hospital on above:Performed By: #### UA ####[place] [phone]+Critically abnormalNegativeThe [facility] Hospital on above:Performed By: #### UA ####[place] [phone] of blood7.0 [pH]Normal4.5-8.0[facility] on above: Performed By: #### UA ####[place] [phone], Urine30 mg/dLCritically abnormalNegative [facility] on above:Performed By: #### UA ####[place] [phone] Montrose, Ur1.499Zutebl3.005-1.030[facility] on above: Performed By: #### UA ####[place] [phone] Kelby CommentSEE COMMENTNormSt. Rita's Hospital on above:Result Comment: N/APerformed By: #### UA ####[place] [phone], clarityCloudyCritically abnormalClearCCincinnati VA Medical Center on above: Performed By: #### UA ####[place] [address], [place] [phone], colorYellowNormalYellowUniversity Hospitals Conneaut Medical Center Comment on above:Performed By: #### UA ####[place] [address] [address] AveC[place], [place] [phone], epithelial cells in sediment SEE COMMENTNormalCCincinnati VA Medical Center on above:Result Comment: FewSquamous Epithelial CellsPerformed By: #### UA ####[place] [address] [address]C[place], [place] [phone], glucose presenceNegativeNormalNegativeThe [facility] Hospital on above: Performed By: #### UA ####[place] [address] [address] AveCsub[facility], [place] [phone], ketones presence1+Critically abnormalNegative [facility] Butler Hospitalment on above:Performed By: #### UA ####[place] [address] [address] AveCAndre [place]ille [phone], nitrite presenceNegativeNormalNegativeThe [facility] Hospital on above:Performed By: #### UA ####[place] [address] [address] AveCAnd[address] [place] [phone], urobilinogenNormalNormalNormal [facility] on above:Performed By: #### UA ####[place] [address] [address] AveCsuburban community hospital [facility], [place] [phone] (Leukocytes)10*3/uLCritically abnormal0-5CCincinnati VA Medical Center on above:Performed By: #### UA ####[place] [address] [address] AveCEminence, [place] [phone] Cultureon 70-97-9778Nrzjo culture, bacteriaSp. Request/Comment: - Specimen received in preservative Culture Result - No growth (<1,000 CFU/ml)NormalUniversity Hospitals Conneaut Medical Center Comment on above:Performed By: #### URCUL ####[facility] [address] [place], [place] [phone] D 25 Hydroxyon 09-12-2017 Vitamin D 25 Jgtkfde77.6 ng/eUOcvmge80.0-80.0[facility] Medical CenterComment on above:Result Comment: Classification of 25 [place] Vitamin D status:Insufficiency/Moderate Deficiency: < or= 30 ng/mLSufficiency/Optimal Levels: 31 to 80 ng/mLToxicity: > 100 ng/mLTest performed by chemiluminescent immunoassay.Performed By: #### ICA, CBCDIF, VITD, PTHI, CMP, URIC ####[facility] [address] [place], [place] [phone]-HY Abdomen/Pelvis w/o Contrast IMPORTon 97-63-0142GN-CT Abdomen/Pelvis w/o Contrast IMPORTImages were obtained outside of [facility] [id number]_IDCSIACNNormalUniversity Hospitals Conneaut Medical Center Vital Signs Date TimeVital SignValuePerforming YjtcwgntgAukqnqwk17-20-3863 11:22-0400 Diastolic blood uuejnkaq77 mm[Hg]Abigail Sanchez MD Work Phone: [facility]10-21-2025 11:22-0400 Heart rate88 /minAbigail Sanchez MD Work Phone: [phone]10-21-2025 11:22-0400 Systolic blood mm[Hg]Abigail Sanchez MD Work Phone: [phone]10-21-2025 11:15040 Body tjwmof288.53 cmAbigail Sanchez MD Work Phone: [phone]10-21-2025 11:15040 Body mass index (BMI) [Ratio]22.5 kg/c5KmwndzAbigail Sanchez MD Work Phone: [facility]10-21-2025 11:15-0400 Body ifsmaz81.3 kgAbigail Sanchez MD Work Phone: [phone]10-08-2025 09:53-0400 Diastolic blood owzdahzh73 mm[Hg]Abigail Sanchez MD Work Phone: [phone] [place], [place] [address]40410-08-2025 09:53-0400 Systolic blood mpkowpmc413 mm[Hg]Abigail Sanchez MD Work Phone: [phone]10-08-2025 09:45-0400 Body ncugxo263.53 cmAbigail Sanchez MD Work Phone: [phone]10-08-2025 09:45-0400 Body mass index (BMI) [Ratio]22.6 kg/j5JpfozcAbigail Sanchez MD Work Phone: [phone]10-08-2025 09:45-0400 Body junanx27.53 kgAbigail Sanchez MD Work Phone: [phone]10-08-2025 09:45-0400 Heart qdpi057 /minAbigail Sanchez MD Work Phone: [phone] [place], [place] 7840401-15-2025 08:06-0500 Blood Pressure LocationRock [employer] [facility]01-15-2025 08:06-0500Diastolic blood egevfkbr427 mm[Hg]Rock [employer] [facility]01-15-2025 08:06-0500Heart rate78 /minRock [employer] [facility]01-15-2025 08:06-0500Systolic blood mm[Hg]Rock [employer] [facility]06-19-2024 08:14-0400Diastolic blood mm[Hg]Rock LUJAN [facility]06-19-2024 08:14-0400Heart rate66 /minRock LUJAN [facility]06-19-2024 08:14-0400Systolic blood mwkegfvd951 mm[Hg]Rock LUJAN [facility] [place] 913931-22-2023 08:30-0500Blood Pressure LocationAurora Orzech [facility] [place] 913931-22-2023 08:30-0500Diastolic blood nfikkcno13 mm[Hg]Laura Orzech [facility] [place] 913931-22-2023 08:30-0500Heart rate88 /minAurora Orzech [facility] [place] 913931-22-2023 08:30-0500Respiratory rate16 /minAurora Orzech [facility] [place] 913931-22-2023 08:30-0500Systolic blood nictnotv022 mm[Hg]Laura Orzech [facility] [place] 913931-06-2023 08:45-0500Body ilgvci025.72 cmAbigail Sanchez [facility] [employer] Other 11-06-2023 08:45-0500Body mass index (BMI) [Ratio] 25.18 kg/t9YgvqhkAbigail Sanchez [facility] [employer] Other 11-06-2023 08:45-0500Body .12 kgAbigail Sanchez Other [employer] Other 11-06-2023 08:45-0500Diastolic blood mm[Hg] Abigail Sanchez Other [employer] Other 11-06-2023 08:45-0798BaD8% (BldA) [Mass fraction]99 % Abigail Sanchez Other [employer] Other 11-06-2023 08:45-0500Systolic blood zyrvprkc793 mm[Hg] Abigail Sanchez Other [employer] Other 02-16-2023 09:30-0500Body ikktyc317.72 cmAbigail Sanchez Other [employer] Other 02-16-2023 09:30-0500Body mass index (BMI) [Ratio] 27.82 kg/n1IbtmzkAbigail Sanchez Other [employer] Other 02-16-2023 09:30-0500Body .01 kgAbigail Sanchez Other [employer] Other 02-16-2023 09:30-0500Diastolic blood jdclbuzr30 mm[Hg] Abigail Sanchez Other [employer] Other 02-16-2023 09:30-8494NwM9% (BldA) [Mass fraction]97 % Abigail Sanchez Other [employer] Other 02-16-2023 09:30-0500Systolic blood vosgkxzy518 mm[Hg] Abigail Sanchez Other [employer] Other 10-25-2022 13:18-0400Blood Pressure LocationMichae NILL General Surgery Twgxyksn04-26-0646 13:18-0400Diastolic blood zyfyjbsh55 mm[Hg]Dharmesh NILL General Surgery Rbtwlrwa50-74-8645 13:18-0400Heart rate 72 /minMichael NILL General Surgery Kacqhfva21-19-2934 13:18-0400 Respiratory rate16 /minMichael NILL General Surgery Kcvljozq03-73-3827 13:18-0400Systolic blood yqsigshd415 mm[Hg]Dharmesh PETERSL General Surgery [place] Encounters Encounter DateEncounter TypeCare ProviderFacilityStart: 07-22-2025 End: 34-30-4162drqvqdahfvEsztnx E Braun MD Work Phone: -[facility]art: 07-22-2025 End: 96-92-0581Ongkbee encounter procedureAbigail Sanchez MD-[facility] Work Phone: Start: 07-09-2025 End: 54-62-7225awuerrvowaVjilsf E Braun MD Work Phone: [facility] Work Phone: Start: 07-09-2025 End: 62-78-7645Kxhlhvu encounter procedureAbigail Sanchez MD-[facility] Work Phone: Start: 37-49-8700juzdpyhgfsWISJN [facility] Hospitaltart: 06-18-2025 End: 82-18-2902pauwfotjzuMpqhxic P COOKFacility:EDUARDA Garciatart: 06-18-2025 End: 44-43-6282Uyggqbn encounter procedureRock LUJAN [facility] Start: 06-16-2025 End: 01-68-0422sgbcubbyjoJpkmliq P COOKFacility:CD:[id number]: 06-12-2025 End: 47-16-4925szytrdcckvFVFFHD [facility] Centertart: 61-00-5131Owd-patient / Non-visitNicole Amadio COPPING MACHINE OPERATOR-C-[facility] Work Phone: Start: 06-06-2025 End: 00-58-6086wkotuxwqudTXPIADK SMITHDayton Osteopathic Hospitaltart: 06-05-2025 End: 81-76-0934nxnngtnlpuHSQOW STILWVUMedicine Barnesville Hospitaltart: 15-80-9664Xii-patient / Non-visitCatherine Sterling [facility] Work Phone: Start: 88-39-7372Jgu-patient / Non-visitNicole Amadio COPPING MACHINE OPERATOR-C-[facility] Work Phone: Start: 06-03-2025 End: 88-90-5885fzvuicawtmJqlenuj P COOKFacility:EU [place]kyStart: 06-03-2025 End: 44-16-0625Wsepkiv encounter procedureRock LUJAN [facility] Start: 06-64-2236Buurlsvhem and management of inpatient SATISH AMSelect Medical TriHealth Rehabilitation Hospitaltart: 22-71-0645Uztkeizddu and management of inpatientJILL BOYKIN-LONECUniversVeterans Health Administration Start: 86-82-8002Eoodiwafbc and management of inpatientJILL BOYKIN-BUTATEAdena Pike Medical Centertart: 06-02-7225Ithmbddjkb and management of inpatientTHOMAS D [facility] Hospitaltart: 05-21-2025 Evaluation and management of inpatientPHILIP MCQUCommunity Regional Medical Centertart: 81-77-4208Alehauvbjz and management of inpatientTHOMAS D OWEIniSelect Medical OhioHealth Rehabilitation Hospital - Dublintart: 81-94-6948Erismlncmj and management of inpatientTHOMAS D EISUniSelect Medical OhioHealth Rehabilitation Hospital - Dublintart: 32-63-7953Tudixhcsfp and management of inpatientTHOMAS D OWSUniSelect Medical Ohio[facility] Rehabilitation Hospital - Dublintart: 58-99-9065Osbyzvufxd and management of inpatient EDUARDO D [facility] Hospitaltart: 05-12-2025 End: 66-21-7978Zefknemixx and management of inpatientJEFFERY KATKODayton Osteopathic Hospitaltart: 98-13-4089Clr-patient / Non-visitJoselyn Perry PA-C-[facility] Work Phone: Start: 04-23-2025 End: 26-94-3884akqhkernxwGregepw P COOKFacility:EU [place] Hospicetart: 04-23-2025 End: 40-58-4641Lebwwsj encounter procedureRock LUJAN [facility] Start: 27-54-0171Ent-patient / Non-visitRock Pollock MD-[facility] Work Phone: Start: 02-14-2025 End: 10-65-1664iysrsknsxsLFLPDWright-Patterson Medical Centertart: 33-48-7704osrtqzgtmoNOBZMAGSiomara HOWARDLake County Memorial Hospital [facility] Start: 01-30-2025 End: 83-29-8386bdjndcoixjLSG LEEDayton Osteopathic Hospitaltart: 01-13-2025 End: 50-57-6375isaxjjbngeIZTGIOhioHealth Pickerington Methodist Hospitaltart: 12-20-2024 End: 86-78-5165qygyxqjxvqEPNGIOhioHealth Nelsonville Health Centertart: 11-08-2024 End: 62-06-6159whngcmchxxJDCZVOhioHealth Nelsonville Health Centertart: 10-16-2024 End: 72-16-5784lgtjkwoxhcRariygm P COOKFacility:EU [place]alkStart: 10-16-2024 End: 80-84-6228Mcywbvc encounter procedureRock LUJAN [facility] Start: 03-20-2024 End: 68-15-7335Jjkyldu encounter procedureRock LUJAN [facility] Start: 08-23-2023 End: 53-72-2459Lhblraz encounter procedureAurorjaycee X Phong [facility] [employer] Start: 08-11-2023 End: 16-90-6922ylccvgkqqfAoppwi Braun Other [employer] Other Start: 48-19-7639Olpojeofl encounterMarcia DanielGreene Memorial Hospital ClinicStart: 08-07-2023 End: 88-43-2092xqcsmgvamxCepflp Braun Other [employer] Other Start: 62-46-5975Nnkzwa outpatient visit 15 minutes Abigail SanchezBeena [facility] ClinicStart: 02-08-2023 End: 41-95-3982xggnmanbfaTI ROCK LUJANFacility:V2Epkaj: 11-17-2022 End: 58-80-4984mgvunjywxmZcwvbk Braun Other [employer] Other Start: 09-73-3072Qeusjsaqx for other preprocedural examinationMarcia DanielGreene Memorial Hospital ClinicStart: 65-46-4653Bvxbys outpatient visit 15 minutesMarastera DanielGreene Memorial Hospital ClinicStart: 11-03-2022 End: 16-37-0551vfltsjideuYF JIANLIN TANGFacility:N6Pyfzz: 89-43-2675Yhbgtbbkm for preprocedural laboratory examinationDR DHARMESH SELENA .[facility] Start: 08-31-2022 End: 37-27-8041yogukwnmlhQH DHARMESH WALTERS .Facility:N0Uudfu: 08-26-2022 End: 37-65-3695gkqzezrihcHI DHARMESH PETERSL .Facility:B5Wekbb: 08-26-2022 End: 42-78-8381Xmiiuggap for preprocedural laboratory examinationDR DHARMESH WALTERS .Facility:Z7Phhzg: 07-26-2022 End: 20-59-9598Vnhqvbz encounter procedureMichael R NILL General Surgery Nill/Said Mildred Start: 95-51-1560Vpxzy health examinationMarcia Sanchez Other [place] [employer] Other Start: 06-28-2022 End: 35-54-5253dxjkfhfinhNA ABIGAIL SANCHEZFacility:D2Ltkzp: 04-27-2022 End: 18-37-9153Spayzoc encounter procedureRock LUJAN [facility] Start: 04-20-2022 End: 67-36-3193wobtmepzqbRQ ROCK LUJANFacility:Y8Rjdus: 10-21-2017 End: 63-44-9999ZgpptexbarZZFPK PETRONAMemorial Health SystemStart: 10-13-2017 End: 67-34-6007MbsxteugmgKBBB [facility] HospitalStart: 10-11-2017 End: 03-06-8757RvcrwbspckWCND [facility] HospitalStart: 09-12-2017 End: 02-12-8122HekghxmqdlDJNN [facility] HospitalStart: 09-12-2017 End: 11-92-3495WgjiyfmkvdFLID [facility] Procedures DateProcedureProcedure DetailPerforming ClinicianStart: 73-19-3057Hyrpvv-up visitSAMAR KIMBERLYYStart: 67-59-8971Qdvuqp-up visitFollow-upAGATHA YOStart: 29-91-3622Fowjat-up visitSAMAHayden Macielart: 48-16-5881Ibtvpt-up visitSAMAHayden Macielart: 16-73-2355Ctatmr-up visitSAMAHayden Macielart: 15-91-5567Dqloxm-up visitSAMAHayden Macielart: 72-20-6600AdjfwcghvndXkfwct Orzech Start: 84-29-5301VhomxuuvodkliqolinyngpmdltEkasnv Orzech Start: 37-66-8040Pcmsyyvzj for malignant neoplasm of prostateAbigail Sanchez Other Start: 72-70-9448Tkbcakl of calculus of renal pelvis through percutaneous nephrostomyMartinAZZURRO [employer]icon[employer]ors Start: 78-75-1702Rsxwiazsiga removal of ureteric stent RockAZZURRO [employer] Start: 71-45-5517Jquuv, right RGP, right JJ stent RockAZZURRO [employer] Start: 44-99-1567Rvbq SurgeryMartinAZZURRO [employer]iconductors Bilateral hernia repairMartinAZZURRO [employer] Bilateral inguinal hernia repairMichael NILL CholecystectomyMartinAZZURRO Semiconductors ColonoscopyMichael NILL History of surgical procedure on cervical spineMichael NILL History of surgical procedure on cervical spineMichael NILL Sinus SurgeryMartinAZZURRO Semiconductors Small intestine excisionAdchemy Plan of Treatment DateCare ActivityDetailAuthorStart: 23-70-1961ethqeuygjlDxtzqhyqhwWrwtqhne:[facility] Immunizations Immunization DateImmunizationNotesCare DmayofyhRmwixuvx80-72-2118HPVGO-98 Vaccine Pfizer - Documentation Purposes OnlyAbigail Sanchez Other [facility]04-08-2021COVID-19 Vaccine Pfizer - Documentation Purposes OnlyMarkody Sanchez Other [facility]03-18-2021SARS-CoV-2 (COVID-19) mRNA BNT-162b2 vaxAurora Orzech [facility]: Highlighted row has not occurred!45-61-9608knimenjne virus vaccine, unspecified formulationGregory COOK [facility]: Highlighted row has not occurred!86-39-2910xbohwmrdw virus vaccine, unspecified formulationAurora Orzech [facility] Payers DatePayer CategoryPayerPolicy ID2022Medicare [id number] [id number] 2.840.1.339858.3.579.2.593 [id number] 2.840.1.273644.3.57[id number] 2.840.1.362301.3.57[id number] 2.840.1.758989.3.57[id number] 2.16.840.1.247409.3.57[id number] 2.16.840.1.591135.3.57[id number] 2.16.840.1.789081.3.57[id number] 2.16.840.1.868765.3.57[id number] 2.16.840.1.987029.3.57[id number] 2.16.840.1.773096.3.57[id number] 2.16.840.1.960125.3.57[id number] 2.16.840.1.2[id number] 10uug8v5-vn06-6444-wz8v-v354e60yc826 [id number] 3x394532-m5sx-516p-[id number] c92gnwzl-983i-7x99-8t0h-2p4f6f2z7b81 Social History DateTypeDetailFacilityStart: 04-27-2022 End: 59-55-9210Yhbdfxa smoking statusNever smoked tobacco (finding)[facility] Tobacco smoking statusNeverExec[facility] of [facility] Sex Assigned At BirthMaleExec[facility] Sexual OrientationExec[facility] Start: 97-73-1282TijAwif (finding)[facility] HospitalTobacc smoking status NHISUnknown if ever smokedC[facility] Work Phone: Start: 64-93-1533Dpo Assigned At [facility] Functional Status LitsGlazwwpiklOmumnwJhbwhnqg57-50-5837Scomlqekot StatusN/AExec[facility]06-19-2024Functional StatusN/A[facility] of [place] 913931-22-2023Functional StatusN/A [facility] [place] 913930-25-2022Functional StatusN/AGeneral Surgery Lemuuoex14-80-4793Zkkorwewxd StatusN/AExec[facility] Clinical Notes 04-27-2022 to 07-09-2025 Note Date & XcuhSnlqVduizsjm74-16-3953 Evaluation note* Diagnosis Onset Date Resolution Status Admit Date Herpes zoster involving thoracic dermato me acuteOctober 2024 9:38am [facility] Work Phone: 1(829) 427-812509-25-2025 NoteUnTriHealth Bethesda North Hospital 06-24-2025 NoteI didn't. Thanks for letting me know. I will call the patient and let them know.[facility]09-05-2025 NoteUnTriHealth Bethesda North Hospital09-05-2025 NoteUnTriHealth [facility] 06-05-2025 NoteUnTriHealth [facility]09-04-2025 NoteUnTriHealth [facility] Hospital09-03-2025 NoteOPAT weekly lab orders faxed to [facility]. [facility]09-02-2025 Hospital Discharge instructions Patient Education 06/03/2025 10:05:08 Acute Urinary Retention, Male Acute Urinary Retention, Male Acute urinary retention is a condition in which a person is unable to pass urine or can only pass alittle urine. This condition can happen suddenly and [...] As men age, their prostate may become largerand may start to press or squeeze on the bladder or the urethra. Other chronic health conditions can increase the risk of acute urinary retention. These include: Diseases such as multiple sclerosis. Spinal cord injuries. Diabetes. Degenerative cognitive conditions, such as delirium or dementia. Psychological conditions. A man may hold his urine due to trauma or because he does not want to usethe bathroom. What are the signs or symptoms? [...] Follow these instructions at home: Medicines Take jjgz-kfl-xgwtuwb and prescription medicines only as told by your health care provider. Avoid certain medicines, such as decongestants, antihistamines, and some prescription medicines. Do not take any medicine unless your health care provider approves. If you were prescribed an antibiotic medicine, take it as told by your health care provider. Do notstop using the antibiotic even if you start to feel better. General instructions Do not use any products that contain nicotine or tobacco. These products include cigarettes, chewing tobacco, and vaping devices, such as e-cigarettes. If you need help quitting, ask your health careprovider. Drink enough fluid to keep your urine [...] to pass urine or can only pass alittle urine. If left untreated, this condition can [...] provider. Document Revised: 06/09/2021 Document Reviewed: 06/09/2021 [employer] Patient Education 2023 [employer]. Follow Up Care 05/30/2025 11:20:20 With:KARLEE GA, Rock Pollock, URL Address: [address] [place], [place] [address]- When: Unknown [facility] [phone] NotePatient Education Urology Acute Urinary Retention, Male Acute urinary retention is a condition in which a person is unable to pass urine or can only pass alittle urine. This condition can happen suddenly and [...] As men age, their prostate may become largerand may start to press or squeeze on [...] trauma or because he does not want touse the bathroom. What are the signs or [...] these instructions at home: Medicines ??? Take wkce-cec-cpuekvf and prescription medicines only as told by your health care provider. Avoid certain medicines, such as decongestants, antihistamines, and some prescription medicines. Do nottake any medicine unless your health care provider approves. ??? If you were prescribed an antibiotic medicine, take it as told by your health care provider. Donot stop using the antibiotic even if you [...] provider. Document Revised: 06/09/2021 Document Reviewed: 06/09/2021 [employer] Patient Education ? 2023 [employer]io.[facility] 06-03-2025 NoteThanks for letting me know :)[facility] 05-29-2025 NoteL[facility]08-28-2025 NoteL[facility]08-28-2025 NoteL[facility] 05-29-2025 NoteL[facility]08-28-2025 NoteL[facility]08-27-2025 NoteL[facility] 05-28-2025 NoteUnTriHealth [facility]hes[facility] Hospital08-27-2025 NoteUnTriHealth [facility]08-27-2025 NoteUnTriHealth [facility] 05-28-2025 NoteL[facility]08-27-2025 NoteL[facility]08-26-2025 NoteL[facility] 05-27-2025 NoteL[facility]08-26-2025 NoteL[facility]08-26-2025 NoteL[facility] 05-27-2025 NoteL[facility]2025 NoteL[facility] West2025 NoteL[facility] 05-26-2025 NoteL[facility] West2025 NoteL[facility]08-24-2025 NoteL[facility] 05-25-2025 NoteL[facility]08-23-2025 NoteL[facility]08-22-2025 NoteL[facility] 05-23-2025 NoteL[facility]08-22-2025 NoteL[facility]08-21-2025 NoteAwaiting medical clearance, pre-cert valid until 05/25UnTriHealth [facility]08-21-2025 NoteLake [facility]08-21-2025 NoteUpdates sent to [facility]. Patient continues to have further work up and has not been medically cleared for discharge.[facility]08-21-2025 NoteUnTriHealth Bethesda North Hospital08-21-2025 Note [facility]08-21-2025 NoteL[facility]08-20-2025 NoteSW advised that patient is still not medically ready. He has went for a 2nd CT scan to see what might be going on due to abnormal labs. SW advised [facility]08-20-2025 NoteL[facility]08-20-2025 NoteUnTriHealth Bethesda North Hospital08-20-2025 Note [facility]08-19-2025 NoteL[facility]08-19-2025 NoteUnTriHealth Bethes[facility] Hospital08-19-2025 NotePatient precert rec'd. AVS sent to [facility]. Packet made. 6410 completed. Patient is letting his family know. RN to call report. No other needs known to this worker.[facility]08-19-2025 Note [facility]08-19-2025 NoteL[facility]08-19-2025 NoteL[facility]08-18-2025 Note [facility]08-18-2025 NoteL[facility]08-18-2025 NoteL[facility]08-18-2025 Note [facility]08-18-2025 NoteL[facility]08-18-2025 NoteL[facility]08-18-2025 Note [facility]08-17-2025 NoteL[facility]08-17-2025 NoteL[facility]08-16-2025 Note [facility]08-15-2025 NoteL[facility]08-15-2025 NoteL[facility]08-15-2025 Note [facility]08-14-2025 NoteL[facility]08-14-2025 NoteL[facility]08-13-2025 Note [facility]08-13-2025 NoteL[facility]08-12-2025 NoteUnTriHealth Bethes[facility] North Hospital08-12-2025 Note [facility]08-12-2025 NoteRespiratory Therapy Note Patient is on 1L of oxygen SPO2 95% Lungs are diminished and clear. No chest X-ray of CT of chest done. No interventions at this time.[facility]08-12-2025 NoteSpoke with senior director of residential services Marjorie about increasing heart rate lopressor order for hr greater then 120UnTriHealth [facility] 05-13-2025 NotePeripheral IV Date/Time: 05/13/2025 1:24 AM Inserted by: Colin Miller MD Placement Needle size: 18 G Laterality: right Location: hand Site prep: alcohol Technique: anatomical landmarks Attempts: 1[facility]08-12-2025 NotePeripheral IV Date/Time: 05/13/2025 1:02 AM Inserted by: Colin Miller MD Placement Needle size: 18 G Laterality: right Location: forearm Site prep: alcohol Technique: anatomical landmarks Attempts: 1[facility]08-12-2025 NoteUnTriHealth Bethesda North Hospital08-12-2025 NoteL[facility] 05-12-2025 NoteL[facility]07-23-2025 Hospital Discharge instructions Patient Education 04/23/2025 09:03:43 Prostate Cancer Screening Prostate Cancer Screening Prostate cancer screening is testing that is done to check for the presence of prostate cancer in men. The prostate gland is a walnut-sized gland that is located below the bladder and in front of therectum in males. The function of the prostate is to add fluid to semen during ejaculation. Prostatecancer is one of the most common types of cancer in men. Who should have prostate cancer screening? Screening recommendations vary based on age and other risk factors, as well as between the professional organizations who make the recommendations. In general, screening is recommended if: You are age 50 to 70 and have an average risk for prostate cancer. You should talk with your healthcare provider about your need for screening and [...] diagnosed with prostate cancer. The risk is higherif your family member's cancer occurred at an early age or if you have multiple family members withprostate cancer at an early age. ?Being a male who is Black or is of Ji[place] or sub-Saharan descent. In general, screening is [...] is a blood test called the prostate-specific antigen(PSA) test. PSA is a protein that is [...] treatment? Where to find more information The [employer] Cancer Society: www.cancer.org Scottish Urological Association: www.auanet.org Contact a health care [...] the recommended screening test for prostate cancer, butit has associated risks. Discuss the risks and [...] provider. Document Revised: 03/14/2022 Document Reviewed: 03/14/2022 [employer] Patient Education 2023 [employer] Follow Up Care 10/16/2024 08:35:29 With:KARLEE GA, Rock Pollock, URL Address: [facility] [place] [id number]- When: Unknown [facility] 07-23-2025 NotePatient Education Oncology Prostate Cancer Screening Prostate cancer screening is testing that is done to check for the presence of prostate cancer in men. The prostate gland is a walnut-sized gland that is located below the bladder and in front of therectum in males. The function of the prostate is to add fluid to semen during ejaculation. Prostatecancer is one of the most common types [...] is a blood test called the prostate-specific antigen(PSA) test. PSA is a protein that is [...] prostate gland for testing (biopsy). This is theonly way to know for certain if you [...] Where to find more information ??? The [employer] Cancer Society: www.cancer.org ??? [employer] Urological Association: www.auanet.org Contact a health care [...] men. The prostate gland (more content not included)...[facility]05-16-2025 NoteUnTriHealth Bethes[facility] North Hospital05-01-2025 NoteUnTriHealth [facility] 01-30-2025 NoteThis report has been cancelled.[facility]04-14-2025 NoteUnTriHealth [facility]hes[facility] Hospital02-07-2025 Note [facility]01-15-2025 Hospital Discharge instructions Patient Education 10/16/2024 08:29:35 Prostate Cancer Screening Prostate Cancer Screening Prostate cancer screening is testing that is done to check for the presence of prostate cancer in men. The prostate gland is a walnut-sized gland that is located below the bladder and in front of therectum in males. The function of the prostate is to add fluid to semen during ejaculation. Prostatecancer is one of the most common types of cancer in men. Who should have prostate cancer screening? Screening recommendations vary based on age and other risk factors, as well as between the professional organizations who make the recommendations. In general, screening is recommended if: You are age 50 to 70 and have an average risk for prostate cancer. You should talk with your healthcare provider about your need for screening and [...] diagnosed with prostate cancer. The risk is higherif your family member's cancer occurred at an early age or if you have multiple family members withprostate cancer at an early age. ?Being a [...] is a blood test called the prostate-specific antigen(PSA) test. PSA is a protein that is [...] treatment? Where to find more information The [employer] Cancer Society: www.cancer.org Scottish Urological Association: www.auanet.org Contact a health care [...] the recommended screening test for prostate cancer, butit has associated risks. Discuss the risks and [...] provider. Document Revised: 03/14/2022 Document Reviewed: 03/14/2022 [employer] Patient Education 2023 Gennio. Follow Up Care 03/20/2024 09:04:03 With:KARLEE GA, Rock Pollock, URL Address: [address] [place], [place] [id number]- When: Unknown [facility] 01-15-2025 NotePatient Education Oncology Prostate Cancer Screening Prostate cancer screening is testing that is done to check for the presence of prostate cancer in men. The prostate gland is a walnut-sized gland that is located below the bladder and in front of therectum in males. The function of the prostate is to add fluid to semen during ejaculation. Prostatecancer is one of the most common types [...] is a blood test called the prostate-specific antigen(PSA) test. PSA is a protein that is [...] prostate gland for testing (biopsy). This is theonly way to know for certain if you [...] Where to find more information ??? The [employer] Cancer Society: www.cancer.org ??? [employer] Urological Association: www.auanet.org Contact a health care [...] men. The prostate gland (more content not included)...[facility]06-19-2024 Hospital Discharge instructions Patient Education 03/20/2024 08:58:01 Benign Prostatic Hyperplasia Benign Prostatic Hyperplasia Benign prostatic hyperplasia (BPH) is an enlarged prostate gland that is caused by the normal agingprocess. The prostate may get bigger as a man gets older. The condition is not caused by cancer. The prostate is a walnut-sized gland that is involved in the production of semen. It is located in front of the rectum and below the bladder. The bladder stores urine. The urethra carries stored urine ou t of the body. An enlarged prostate can press on the urethra. This can make it harder to pass urine. The buildup of urine in the bladder can cause infection. Back pressure and infection may progress to bladder damage and kidney (renal) failure. What are the causes? This condition is part of the normal aging process. However, not all men develop problems from thiscondition. If the prostate enlarges away from the [...] urethra. Follow these instructions at home: Take ehgu-dsi-xcwzgyw and prescription medicines only as told by [...] provider. Document Revised: 04/06/2022 Document Reviewed: 04/06/2022 [employer] Patient Education 2022 Gennio. Follow Up Care 08/23/2023 09:06:17 With:KARLEE GA, Rock Pollock, URL Address: [facility] [employer] [address] When: Unknown [facility] 11-22-2023 Hospital Discharge instructions Patient Education 08/23/2023 11:10:27 Benign Prostatic Hyperplasia Benign Prostatic Hyperplasia Benign prostatic hyperplasia (BPH) is an enlarged prostate gland that is caused by the normal agingprocess. The prostate may get bigger as a man gets older. The condition is not caused by cancer. The prostate is a walnut-sized gland that is involved in the production of semen. It is located in front of the rectum and below the bladder. The bladder stores urine. The urethra carries stored urine ou t of the body. An enlarged prostate can press on the urethra. This can make it harder to pass urine. The buildup of urine in the bladder can cause infection. Back pressure and infection may progress to bladder damage and kidney (renal) failure. What are the causes? This condition is part of the normal aging process. However, not all men develop problems from thiscondition. If the prostate enlarges away from the [...] urethra. Follow these instructions at home: Take kjui-dhw-esbxplw and prescription medicines only as told by [...] provider. Document Revised: 04/06/2022 Document Reviewed: 04/06/2022 [employer] Patient Education 2022 Gennio. 08/23/2023 11:10:20 Prostate Cancer Screening Prostate Cancer Screening Prostate cancer screening is testing that is done to check for the presence of prostate cancer in men. The prostate gland is a walnut-sized gland that is located below the bladder and in front of therectum in males. The function of the prostate is to add fluid to semen during ejaculation. Prostatecancer is one of the most common types of cancer in men. Who should have prostate cancer screening? Screening recommendations vary based on age and other risk factors, as well as between the professional organizations who make the recommendations. In general, screening is recommended if: You are age 50 to 70 and have an average risk for prostate cancer. You should talk with your healthcare provider about your need for screening and [...] diagnosed with prostate cancer. The risk is higherif your family member's cancer occurred at an early age or if you have multiple family members withprostate cancer at an early age. ?Being a [...] is a blood test called the prostate-specific antigen(PSA) test. PSA is a protein that is [...] treatment? Where to find more information The [employer]: www.cancer.org [employer]: www.auanet.org Contact a health care [...] the recommended screening test for prostate cancer, butit has associated risks. Discuss the risks and [...] provider. Document Revised: 03/14/2022 Document Reviewed: 03/14/2022 [employer] Patient Education 2022 Gennio. Follow Up Care 02/15/2023 12:04:24 With:KARLEE GA, Rock Pollock, URL Address: [facility] [employer] [place] [id number]- When: Unknown [facility] 11-06-2023 Evaluation note* Encounter Date Diagnosis Assessment Notes Treatment Notes Treatment Clinical Notes Aug, Acute non-recurrent frontal sinu sitis (ICD-10 - J01.10) Sinus infections can be triggered by a secondary infection from a viral URI or even seasonal allergies. Take medications as directed. Use saline nasal spray prior to presciption nasal spray. Take medications as directed, and complete all doses of medication even if you start to feel better. Patientadvised to follow up with PCP if symptoms persist or worsen. Patient verbalized understanding and agreement with treatment plan. Aug,OVID-19 (ICD-10 - U07.1)Symptoms improving. Has passed the quarantine dates. Rest, hydrate. [employer] Other 02-16-2023 Evaluation note* Encounter Date Diagnosis Assessment Notes Treatment Notes Treatment Clinical Notes Nov, Preoperative clearance (ICD-10 - Z01.818) Excluding any abnormalities and upcoming preoperative testing, Darrell is cleared for surgery. He isscheduled with Dr. Holder for a robotic sigmoid colectomy on December 07. Nov,Tubulovillous adenoma of colon (ICD-10 - D12.6)Discussed iron deficiency anemia history. This had prompted our colonoscopy which took months to complete. Patient is anticipating getting the surgery completed and behind him at this juncture. Nov,Essential hypertension (ICD-10 - I10) [employer] Other 11-30-2022 NoteOP Note OPERATION DATE: 08/31/2022 [...] year after that. CC: Abigail Sanchez M.D.[id number] NoteOPERATIVE NOTE OPERATION DATE: 08/26/2022 PREOPERATIVE DIAGNOSIS: [...] in good condition. CC: Abigail Sanchez M.D.[facility] [id number] NoteOPERATIVE NOTE OPERATION DATE: 08/26/2022 PREOPERATIVE DIAGNOSIS: [...] one year after that. CC: Abigail Sanchez M.D.[facility]07-27-2022 Hospital Discharge instructions Patient Education 04/27/2022 [...] urethra. Follow these instructions at home: Take jmss-ulq-flpgpql and prescription medicines only as told by [...] 09/18/2006 Document Revised: 08/13/2019 Document Reviewed: 10/23/2017 [employer] Patient Education 2020 Gennio. Follow Up Care 10/25/2021 11:53:28 With:Rock LUJAN MD, URL Address: [address] [place] [id number]- When:Within 6 Month(s) [facility] Evaluation + Plan note Future Appointments Appointment Date:10/17/2022 08:00:00 AM Scheduled Provider:Rock LUJAN MD Location:[facility] Appointment Type:URO Office Visit Diagnostic Tests Pending * PSA Free & Total 09/01/[address] [facility] Evaluation + Plan note Future Appointments Appointment Date:10/17/2022 08:00:00 AM Scheduled Provider:Rock LUJAN MD Location:[facility] Appointment Type:URO Office Visit General Surgery [place] evaluation + Plan note Future Appointments Appointment Date:03/20/2024 08:00:00 AM Scheduled Provider:Rock LUJAN MD Location:[facility] Appointment Type:URO Office Visit Diagnostic Tests Pending * PSA Free & Total 08/23/23 [facility] Evaluation + Plan note Future Appointments Appointment Date:10/16/2024 08:00:00 AM Scheduled Provider:Rock LUJAN MD Location:[facility] Appointment Type:URO Office Visit Diagnostic Tests Pending * PSA Free & Total 07/02/24 [facility] evaluation + Plan note Future Appointments Appointment Date:04/23/2025 08:45:00 AM Scheduled Provider:Rock LUJAN MD Location:[facility] Appointment Type:URO Office Visit Diagnostic Tests Pending * PSA Free & Total 03/02/25 [facility] evaluation + Plan note Future Appointments Appointment Date:11/05/2025 08:15:00 AM Scheduled Provider:Rock LUJAN MD Location:[facility] Appointment Type:URO Office Visit Diagnostic Tests Pending * PSA Free & Total 09/01/25 [facility] evaluation + Plan note Future Appointments Appointment Date:11/05/2025 08:15:00 AM Scheduled Provider:Rock LUJAN MD Location:[facility] Appointment Type:URO Office Visit [facility] evalusvcjy noteNo InformationNort [employer] Other evaluation noteNo assessment information available [facility] Work Phone: History general Narrative - Reported* Type Description Date Medical History Iron deficiency anemia Medical HistoryFatigueMedical HistoryDyspnea on exertionMedical HistoryEssential hypertensionSurgical HistoryCHOLECYSTECTOMYSurgical HistoryCERVICAL DISC SURGERYSurgical History2 INGUINAL HERNIA SURGERYHospitalization HistorySEE SURGICAL [employer] Other History general Narrative - Reported* Type Description Date Medical History Iron deficiency anemia Medical HistoryFatigueMedical HistoryDyspnea on exertionMedical HistoryEssential hypertensionSurgical HistoryCHOLECYSTECTOMYSurgical HistoryCERVICAL DISC SURGERYSurgical History2 INGUINAL HERNIA SURGERYSurgical [id number] Surgical HistoryBowel resection11/2022Hospitalization HistorySEE SURGICAL [employer] Other Hospital course Narrative No data available for this section [facility] Hospital Discharge instructions No data available for this section General Surgery [place] Progress note No data available for this section [facility] Reason for referral (narrative)No reason for referral information availableC[facility] Work Phone: Summary Purpose Family History Relationship Condition Age at Onset Recorded Date/T dalila father Unknown Malignant neoplasmUnknownmotherMalignant neoplasmUnknown Advance Directives Advance Directive Response Recorded Date/ Time Advance Directives No January 02 1:35pm Chief Complaint and Reason for Visit Chief Complaint Admit Date Amb Documentation June 05, 2025 9:38am Rash on Stomach, Left Side July 09, 2025 9:38am Chief Complaint Admit Date Amb Documentation June 05, 2025 9:38am Rash on Stomach, Left Side July 09, 2025 9:38am Shingles, Itching, Pain July 22 11:14am Reason for Visit Admit Date Herpes zoster involving thoracic dermato me July 09, 2025 9:38am Additional Source Comments (unrecognized sect ion and content) No Status Records FoundNo Status Records FoundNo Status Records FoundNo Status Records FoundNo Status Records Found INFORMATION SOURCE (unrecogn ized section and content) DATE CREATED AUTHOR 03/26/2018 [facility] DATE CREATED AUTHOR AUTHOR'S ORGANIZ ATION 03/31/2022 [facility] DATE CREATED AUTHOR AUTHOR'S ORGANIZ ATION 02/12/2023 [facility] DATE CREATED AUTHOR AUTHOR'S ORGANIZ ATION 06/25/2025 [facility] DATE CREATED AUTHOR AUTHOR'S ORGANIZ ATION 07/13/2025 [facility] Care Team (unrecognized sect ion and content) Team Status: Active Member Role Status Dates Abigail Sanchez MD Primary Care Provider Active Team Status: Active Member Role Status Dates Abigail Sanchez MD Primary Care Provider Active Start: April 16, 2025 Rock Lujan MDAttending ProviderActiveStart: April 16, 2025 Team Status: Active Member Role Status Dates Abigail Sanchez MD Primary Care Provider Active Start: May 12, 2025 NAKUL Cm-CAttending ProviderActiveStart: May 12, 2025 Team Status: Active Member Role Status Dates Abigail Sanchez MD Primary Care Provider Active Start: June 04, 2025 Satish Alvarez NP-CAttending ProviderActiveStart: June 04, 2025 Team Status: Active Member Role Status Dates Abigail Sanchez MD Primary Care Provider Active Start: June 05, 2025 Aminata Katz CMAAttending ProviderActiveStart: June 05, 2025 Team Status: Active Member Role Status Dates Abigail Sanchez MD Primary Care Provider Active Start: June 09, 2025 Satish Alvarez NP-CAttending ProviderActiveStart: June 09, 2025 Team Status: Inactive Member Role Status Dates Abigail Sanchez MD Primary Care Provider Active Start: July 09, 2025 End: July 09, 2025Abigail Sanchez MDAttfrancisca ProviderActiveStart: July 09, 2025 End: July 09, 2025 Team Status: Active Member Role/Relationship Status Dates Abigail Sanchez MD Primary Care Provider Active Team Status: Active Member Role/Relationship Status Dates Abigail Sanchez MD Primary Care Provider Active Start: May 12, 2025 Joselyn Perry PA-CAttending ProviderActiveStart: May 12, 2025 Team Status: Active Member Role/Relationship Status Dates Abigail Sanchez MD Primary Care Provider Active Start: June 04, 2025 Satish Alvarez NP-CAttending ProviderActiveStart: June 04, 2025 Team Status: Active Member Role/Relationship Status Dates Abigail Sanchez MD Primary Care Provider Active Start: June 05, 2025 Aminata Katz CMAAttending ProviderActiveStart: June 05, 2025 Team Status: Active Member Role/Relationship Status Dates Abigail Sanchez MD Primary Care Provider Active Start: June 09, 2025 Satish Alvarez COPPING MACHINE OPERATOR-CAttending ProviderActiveStart: June 09, 2025 Team Status: Inactive Member Role/Relationship Status Dates Abigail Sanchez MD Primary Care Provider Active Start: July 09, 2025 End: July 09, 2025Sadie Martinez ProviderActiveStart: July 09, 2025 End: July 09, 2025 Team Status: Inactive Member Role/Relationship Status Dates Abigail Sanchez MD Primary Care Provider Active Start: July 22, 2025 End: July 22, 2025Abigail Sanchez MDAttfrancisca ProviderActiveStart: July 22, 2025 End: July 22, 2025 REASON FOR VISIT (unrecogniz ed section and content) Pre-Op ClearanceER follow up 07/26 COVIDphone call Goals (unrecognized section and content) Goals may be documented in a n alternate section FOR RECORDS PERTAINING TO PATIENTS WHO ARE [...] BE BASED ON THE PRIMARY CLINICAL RECORDS. [employer] provides no warranty or guarantee of the accuracy or completeness of information in this document.
--- NOTE | 2025-08-27 08:58 | XR_ITS ---
The [place] [id number] Patient Name: SOFI NELSON MRN: [id number] date: 1950 Sex: M Assigned Patient Location: ER Current Patient Location: ER Accession/Order Number: [id number] Exam Date: 08/27/2025 09:08 Report Date: 08/27/2025 09:15 At the request of: GIANCARLO BANEGAS MD Procedure: XR chest 1V PORTABLE AP ERECT CHEST 0908 hours CLINICAL HISTORY: Epigastric and chest pain COMPARISON: 05/12/2025 Is continued slight elevation of the right hemidiaphragm. The heart is within normal limits. There is no vascular congestion. The lungs, as visualized, are clear. There is no effusion or pneumothorax. The osseous structures are intact. Degenerative change is noted at the spine and acromioclavicular joints. A cervical fusion plate is seen. XR/XR chest 1V IMPRESSION: NO ACUTE FINDINGS Impression dictated by: Elvia Dozier M.D. 08/27/2025 9:15 AM Dictation Location: [place] [address] Electronically authenticated by: [id number] Y Date: 08/27/2025 09:15
--- NOTE | 2025-08-27 08:58 | ECG_ITS ---
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 Measurements Intervals [place] Rate: 104 P: 72 NV: 162 QRS: 56 QRSD: 82 T: 61 QT: 348 QTc: 408 Interpretive Statements 1120 Sinus tachycardia 9140 abnormal rhythm ECG Compared to ECG 05/12/2025 11:00:02 Sinus rhythm no longer present Electronically Signed On 08-27-2025 19:10:25 EST by BARRINGTON DOWD M.D.
--- NOTE | 2025-08-27 08:59 | ED_ITS ---
HPI HPI - General Adult General Chief complaint: Chest Pain Stated complaint: chest pain Time Seen by Provider: 08/27/25 08:52 Source: patient Mode of arrival: walk-in Limitations: no limitations History of Present Illness HPI narrative: 75-year-old male presents to the emergency department for chest pain. He has had it intermittently for the last few days. He took some Pepto-Bismol but it did not help. He points to the very low midsternal area. He had recent bowel obstruction surgery at [facility]. No fever or productive cough or back pain. Related Data Home Medications ?Medication ?Instructions ?Recorded ?Confirmed tamsulosin 0.4 mg capsule 0.4 mg PO BID 07/26/2308/27 losartan 50 mg tablet 50 mg PO DAILY 05/12/2508/03 lidocaine 5 % topical patch 2 patch topical BID 08/27/25 Allergies Allergy/AdvReac Type Severity Reaction Status Date / Time No Known Drug Allergies Allergy Verified 08/27/25 08:52 Opioid HPI Opioid Management Most Recent Opioid Data: Last Pain Scale 2 Today, 08:59 Review of Systems ROS Narrative A ten point review of systems is negative except as noted above. PFSH PFSH Social History Smoking status: Never smoker Little interest or pleasure in doing things: not at all Feeling down, depressed, or hopeless: not at all Exam Narrative Exam Narrative: Nurses note and vital signs reviewed General:The patient appears well and in no apparent distress.Patient is resting comfortably on cart. Skin:Warm, dry, no pallor noted.There is no rash noted. Head:Normocephalic, atraumatic Eye: Normal conjunctiva, no drainage Ears, Nose, Mouth, and Throat: oral mucosa is moist. Nares patent. Cardiovascular:Regular Rate and Rhythm. Chest wall nontender. Respiratory:Patient is in no distress, no accessory muscle use, lungs are clear to auscultation, no wheezing, rales or rhonchi Back:non-tender GI: Soft and nontender including in the epigastric area. Surgical scar is well- healed. Musculoskeletal: The patient has no evidence of calf tenderness, no pitting edema, symmetrical pulses noted bilaterally Neurological:A&O, normal speech Psychiatric:Cooperative Constitutional Vital Signs, click to edit/add: Last Vital Signs Temp 98.3 F 08/27/25 08:45 Pulse 98 H 08/27/25 10:40 Resp 20 08/27/25 10:40 BP 163/84 H 08/27/25 10:30 Pulse Ox 98 08/27/25 10:40 O2 Del Method Room Air 08/27/25 08:45 Course Vital Signs Vital signs: Vital Signs Temperature 98.3 F 08/27/25 08:45 Pulse Rate 114 H 08/27/25 08:45 Respiratory Rate 20 08/27/25 08:45 Blood Pressure 167/92 H 08/27/25 08:45 Pulse Oximetry 98 08/27/25 08:45 Oxygen Delivery Method Room Air 08/27/25 08:45 Temperature 98.3 F 08/27/25 08:45 Pulse Rate 98 H 08/27/25 10:40 Respiratory Rate 20 08/27/25 10:40 Blood Pressure 163/84 H 08/27/25 10:30 Pulse Oximetry 98 08/27/25 10:40 Oxygen Delivery Method Room Air 08/27/25 08:45 Medical Decision Making MDM Narrative Medical decision making narrative: His workup including CTA and 2 sets of troponin is negative. The rest of his workup is negative as well. Cause of his symptoms is uncertain. At this point I do not suspect acute coronary syndrome. There is no evidence of PE or pneumothorax or free air in the abdomen. He is able to be discharged home. Treatment diagnosis and follow-up were discussed with the patient. Differential Diagnosis Differential Diagnosis: PE, OR, pneumothorax, perforated viscus Lab Data Lab results reviewed: Yes I reviewed the patient's lab results Labs: Lab Results 08/27/25 08/27/25 Range/Units 08:55 10:41 WBC 13.0 H (4.0-11.0) 10^3/uL RBC 4.51 L (4.70-6.10) 10^6/uL Hgb 12.1 L (14.0-18.0) g/dL Hct 37.0 L (42.0-54.0) % MCV 82.0 (80.0-94.0) fL MCH 26.8 (25.9-34.0) pg MCHC 32.7 (29.9-35.2) g/dL RDW 15.3 H (11.0-15.0) % Plt Count 157 (150-450) 10^3/uL MPV 11.4 (9.5-13.5) fL Neut % (Auto) 75.0 (43.0-75.0) % Lymph % (Auto) 17.9 L (20.5-60.0) % [place] % (Auto) 6.2 (1.7-12.0) % Eos % (Auto) 0.2 L (0.9-7.0) % Baso % (Auto) 0.2 (0.2-2.0) % Neut # (Auto) 9.8 H (1.4-6.5) 10^3/uL Lymph # (Auto) 2.3 (1.2-3.8) 10^3/uL [place] # (Auto) 0.8 (0.3-0.8) 10^3/uL Eos # (Auto) 0.0 (0.0-0.7) 10^3/uL Baso # (Auto) 0.0 (0.0-0.1) 10^3/uL Abs Immat Gran (auto) 0.06 H (0.00-0.03) 10^3/uL Imm/Tot Granulo (auto) 0.5 (0.0-0.5) % D-Dimer 0.95 H* (<=0.59) mg/L FEU Sodium 139 (136-145) mmol/L Potassium 3.9 (3.5-5.1) mmol/L Chloride 103 (98-107) mmol/L Carbon Dioxide 28.1 (21.0-32.0) mmol/L Anion Gap 11.8 BUN 10.0 (7.0-18.0) mg/dL Creatinine 0.88 (0.70-1.30) mg/dL Est GFR ( Amer) >60 (>=60 mL/min/1.73m^2) Est GFR (Non-Af Amer) >60 (>=60 mL/min/1.73m^2) BUN/Creatinine Ratio 11.4 Glucose 126 H (74-106) mg/dL Calcium 9.0 (8.5-10.1) mg/dL Total Bilirubin 1.1 H (0.2-1.0) mg/dL Direct Bilirubin 0.2 (0.0-0.2) mg/dL AST 22 (15-37) U/L ALT 25 (16-63) U/L Alkaline Phosphatase 76 (46-116) U/L Troponin I High Sens 8.8 9.3 (4.0-76.1) pg/mL Total Protein 7.4 (6.4-8.2) g/dL Albumin 4.0 (3.4-5.0) g/dL Globulin 3.4 g/dL Albumin/Globulin Ratio 1.2 Amylase 52 (25-115) U/L Lipase 22.0 (16.0-77.0) U/L Imaging Data Chest x-ray: Radiologist's impression: ITS Impressions Chest X-Ray 08/27/25 08:58 IMPRESSION: NO ACUTE FINDINGS Impression dictated by: Elvia Dozier M.D. 08/27/2025 9:15 AM Dictation Location: [place] Electronically authenticated by: [id number] Y Date: 08/27/2025 09:15 Chest CTA 08/27/25 09:50 IMPRESSION: NO CT EVIDENCE OF PULMONARY EMBOLISM. MINOR PLEURAL EFFUSION, ATELECTASIS AND SCARRING. Impression dictated by: Elvia Dozier M.D. 08/27/2025 10:43 AM Dictation Location: [place] Electronically authenticated by: [id number] Y Date: 08/27/2025 10:43 ECG Data Attestation: I personally reviewed and interpreted this ECG as follows: (EKG on my interpretation shows sinus rhythm with rate of 104 no acute change.) Discharge Plan Discharge Chief Complaint: Chest Pain Clinical Impression: Chest pain Patient Disposition: Home, Self-Care Time of Disposition Decision: 11:40 Condition: Good Mode of Transportation: Private Vehicle Prescriptions / Home Meds: No Action lidocaine 5 % adhesive patch,medicated 2 patch topical BID tamsulosin 0.4 mg capsule 0.4 mg PO BID losartan 50 mg tablet 50 mg PO DAILY Print Language: Armenian Instructions: Chest Pain (ED) Referrals: Patricia Fontanez MD [Primary Care Provider, Family Practice] - 1 week
[2025-08-27 09:08] LABS: Hematocrit 37.0 % (42.0-54.0); Hemoglobin 12.1 g/dL (14.0-18.0); Immature Granulocytes Abs Auto 0.06 10^3/uL (0.00-0.03); Immature Granulocytes Pct Auto 0.5 % (0.0-0.5); Lymphocytes Absolute Auto 2.3 10^3/uL (1.2-3.8); Mean Corpuscular HGB Conc 32.7 g/dL (29.9-35.2); Mean Corpuscular Hemoglobin 26.8 pg (25.9-34.0); Mean Corpuscular Volume 82.0 fL (80.0-94.0); Platelet Count 157 10^3/uL (150-450); Red Blood Count 4.51 10^6/uL (4.70-6.10); White Blood Count 13.0 10^3/uL (4.0-11.0)
[2025-08-27 09:15] LABS: Anion Gap 11.8; Blood Urea Nitrogen 10.0 mg/dL (7.0-18.0); Calcium 9.0 mg/dL (8.5-10.1); Carbon Dioxide 28.1 mmol/L (21.0-32.0); Chloride 103 mmol/L (98-107); Estimated GFR (African America >60 (>=60 mL/min/1.73m^2); Estimated GFR (Non-African Ame >60 (>=60 mL/min/1.73m^2); Glucose 126 mg/dL (74-106); Potassium 3.9 mmol/L (3.5-5.1); Sodium 139 mmol/L (136-145)
[2025-08-27 09:23] LABS: Alanine Aminotransferase 25 U/L (16-63); Albumin Globulin Ratio 1.2; Albumin Level 4.0 g/dL (3.4-5.0); Alkaline Phosphatase 76 U/L (46-116); Amylase 52 U/L (25-115); Aspartate Amino Transferase 22 U/L (15-37); Globulin 3.4 g/dL; Lipase 22.0 U/L (16.0-77.0); Total Protein 7.4 g/dL (6.4-8.2)
--- NOTE | 2025-08-27 09:50 | CT_ITS ---
The [address] [address] Patient Name: SOFI NELSON MRN: [id number] date: 1950 Sex: M Assigned Patient Location: ER Current Patient Location: ER Accession/Order Number: [id number] Exam Date: 08/27/2025 09:58 Report Date: 08/27/2025 10:43 At the request of: GIANCARLO BANEGAS MD Procedure: CT angio chest CT PULMONARY ANGIOGRAM WITH CONTRAST CLINICAL HISTORY: Epigastric and chest pain for the past 2 days. Elevated D-dimer, recent surgery COMPARISON: 07/26/2023 TECHNIQUE: Spiral images were obtained through the chest following intravenous administration of 100 mL of Omnipaque 350. Images were reviewed using both narrow and wide window settings. Sagittal, coronal and 3 D volume-rendered reconstructions were performed and reviewed. This CT exam was performed using one or more following dose reduction techniques: Automated exposure control, adjustment of the mA and/or kV according to patient size, or use of iterative reconstruction technique. FINDINGS: The heart is top normal in size. There is no pericardial effusion. No aortic aneurysm is identified however assessment for dissection is limited by timing of contrast bolus. There is adequate opacification of the pulmonary arteries. No emboli are identified. No pathologic lymphadenopathy is seen. Mild bilateral gynecomastia is noted. Mild endplate spurring is visualized. There is a tiny layering pleural effusion on the right and a trace amount of pleural fluid on the left. There is atelectasis, predominantly dependent. There is scarring at the lung apices. No consolidation or pneumothorax is noted. A calcified granuloma is visualized at the right posterior costophrenic angle. Limited cuts through the upper abdomen show a suspected right hepatic cyst. There is a trace amount of the perisplenic fluid. Air seen within small and large bowel loops as well as the stomach in the field of view. CT/CT angio chest IMPRESSION: NO CT EVIDENCE OF PULMONARY EMBOLISM. MINOR PLEURAL EFFUSION, ATELECTASIS AND SCARRING. Impression dictated by: Elvia Dozier M.D. 08/27/2025 10:43 AM Dictation Location: [place] [address] Electronically authenticated by: [id number] Y Date: 08/27/2025 10:43
== END 2025-08-27 11:49 | disposition home or self-care (01) ==
PROVIDERS: Emergency Provider Emergency Medicine; PCP Family Medicine
DX: R07.9 Chest pain, unspecified (principal); Z98.890 Other specified postprocedural states
CPT/HCPCS: 36415; 71045; 71275; 80048; 80076; 82150; 83690; 84484; 85025; 85378; 93005; 99285; Q9967